=== PATIENT | male | born 1960 | race Caucasian/White ===

== ENCOUNTER 2016-09-15 18:34 | Inpatient (IN) | payer MEDICARE, MEDICAID ==
[~2016-09-15] VITALS: Ht 177.8 cm; Wt 113.4 kg
[2016-09-15] VITALS (7 sets, daily range): BP systolic 123–154; BP diastolic 60–95; PULSE 67–82; RESP 14–16; TEMP 97.4–98.2; O2SAT 97–99
[~2016-09-15 18:34] MED LIST: AMLO10 PO; ASPI-110 PO; CEFT2INJ2 IV; EPIN1INJ21 IV PUSH; EPIN1INJ21 SQ; HYDR-3535 PO; IBUP400T20 PO; LISI10TA3 PO; LORA-392 PO; NEUR400C PO; NOVOLOGSS SQ; SOLU250I IV PUSH; THIO100T2 PO; UNAS3INJ IV; ZOFR4TAB3 SL
[2016-09-15] MEDS ORDERED: GLIP5TAB8 PO (19:04)
[2016-09-15] MEDS ORDERED: DEXTROSE 50% IN WATER 50 ML SYRINGE ONE (19:25)
--- NOTE | 2016-09-15 19:28 | PD ---
HPI Chief Complaint: Diabetic Time Seen by Provider: 19:09 Travel History International Travel<30 days: No Contact w/Intl Traveler<30days: No Traveled to known affect area: No History of Present Illness HPI 56-year-old male complains of left-sided chest wall pain, bilateral knee pain, left forehead abrasion. Patient states that he has history of diabetes and blood sugar was low last night and this morning. Patient stated he fell this morning. Patient denied loss of consciousness. Patient complains headache. Patient complained of mild pain the left forehead area. Patient denies any visual change. Patient denies any neck pain. Patient states that he has aching pain on the left-sided chest. Patient denies any abdominal pain. Patient complains of burning pain prepatellar area of both knee. Patient denies any focal weakness or numbness of extremity. Patient states that he has poor appetite recently. Patient denies any nausea vomiting diarrhea. Patient is on glipizide. Patient on insulin sliding scale. PFSH Past Medical History Hx Anticoagulant Therapy: No Arthritis: No Asthma: No Autoimmune Disease: No Blood Disorders: No Anxiety: Yes Depression: Yes Heart Rhythm Problems: No Cancer: No Cardiovascular Problems: Yes High Cholesterol: No Chemotherapy: No Chest Pain: No Congestive Heart Failure: No COPD: No Cerebrovascular Accident: No Diabetes: Yes Patient Takes Glucophage: No Diminished Hearing: No Endocrine: No GERD: No Glaucoma: No Genitourinary: No Headaches: No Hepatitis: No Hiatal Hernia: No Hypertension: Yes Immune Disorder: No Kidney Stones: No Musculoskeletal: No Neurologic: No Psychiatric: Yes (schizoprenia controlled ) Reproductive: No Respiratory: No Migraines: No Myocardial Infarction: No Radiation Therapy: No Renal Failure: No Schizophrenia: Yes Seizures: No Sickle Cell Disease: No Sleep Apnea: No Thyroid Disease: No Ulcer: No Past Surgical History Abdominal Surgery: No AICD: No Appendectomy: No Arteriovenous Shunt: No Cardiac Surgery: No Cholecystectomy: No Ear Surgery: No Endocrine Surgery: No Eye Surgery: No Genitourinary Surgery: No Gynecologic Surgery: No Insulin Pump: No Joint Replacement: No Oral Surgery: No Pacemaker: No Thoracic Surgery: No Other Surgery: Yes (R FOOT ) Social History Alcohol Use: No (PT DENIES) Tobacco Use: No Substance Use: No Allergies-Medications (Allergen,Severity, Reaction): Coded Allergies: Haldol (Verified Allergy, Severe, BLINDNESS, 09/15/16) Vancomycin (Verified Allergy, Severe, 09/15/16) Levaquin (Verified Allergy, Intermediate, Cramping, 09/15/16) Prolixin (Verified Allergy, Unknown, "PARKINSONIAN SHACKS", 09/15/16) Reported Meds & Prescriptions Reported Meds & Active Scripts Active Novolog Inj (Insulin Aspart) 100 Unit/Ml Inj 1 Units SQ ACHS SLIDING SCALE 90 Days Lortab (Hydrocodone-Acetaminophen) 10-325 Mg Tab 1 Tab PO Q4H PRN Ativan (Lorazepam) 0.5 Mg Tab 0.5 Mg PO Q8H PRN Ceftriaxone Inj (Ceftriaxone Sodium/Dextrose) 2 Gm/50 Ml Bagp 2 Gm IV Q24H 42 Days Unasyn Inj (Ampicillin-Sulbactam Inj) 3 Gm Vial 3 Gm IV Q6H 42 Days Reported Lisinopril 10 Mg Tab 10 Mg PO DAILY Norvasc (Amlodipine Besylate) 10 Mg Tab 10 Mg PO DAILY Neurontin (Gabapentin) 400 Mg Cap 400 Mg PO TID Aspirin 81 (Aspirin) 81 Mg Tabdr 81 Mg PO DAILY Thioridazine (Thioridazine HCl) 100 Mg Tab 200 Mg PO DAILY Glipizide 5 Mg Tab 5 Mg PO BIDAC Take 30 minutes before a meal Review of Systems General / Constitutional: No: Fever Eyes: No: Visual changes HENT: No: Headaches Cardiovascular: No: Chest Pain or Discomfort Respiratory: No: Shortness of Breath Gastrointestinal: No: Abdominal Pain Genitourinary: No: Dysuria Musculoskeletal: No: Pain Skin: No Rash Neurologic: No: Weakness Psychiatric: No: Depression Endocrine: No: Polydipsia Hematologic/Lymphatic: No: Easy Bruising Physical Exam Narrative GENERAL: Well-nourished, well-developed patient. SKIN: Warm and dry. HEAD: Normocephalic. Patient has abrasion to left forehead. Mild soft tissue swelling noted. No active bleeding. EYES: No scleral icterus. No injection or drainage. Pupils 3 mm equal reactive. NECK: Supple, trachea midline. No JVD or lymphadenopathy. No tenderness on palpation of the neck. CARDIOVASCULAR: Regular rate and rhythm without murmurs, gallops, or rubs. RESPIRATORY: Breath sounds equal bilaterally. No accessory muscle use. GASTROINTESTINAL: Abdomen soft, non-tender, nondistended. MUSCULOSKELETAL: No cyanosis, or edema. Patient has mild tenderness on palpation left chest wall area mid axillary line. No crepitus no deformity noted. Patient has mild soft tissue swelling tenderness prepatellar area of bilateral knees. Knee joints stable. No effusion noted. BACK: Nontender without obvious deformity. No CVA tenderness. Neurologic exam: Patient is awake and alert oriented 3. No obvious focal neurological deficit. Data Data Last Documented VS Vital Signs Date Time Temp Pulse Resp B/P Pulse Ox O2 Delivery O2 Flow Rate FiO2 09/15/16 21:25 77 16 139/64 98 Room Air 09/15/16 18:37 98.2 Orders Complete Blood Count With Diff (09/15/16 19:17) Basic Metabolic Panel (Bmp) (09/15/16 19:17) Ct Brain W/O Iv Contrast(Rout) (09/15/16 19:17) Iv Access Insert/Monitor (09/15/16 19:17) Ecg Monitoring (09/15/16 19:17) Oximetry (09/15/16 19:17) Knee, Ltd (1 Or 2vws) (09/15/16 19:17) Knee, Ltd (1 Or 2vws) (09/15/16 19:17) Ribs, Uni (W/Exp Cxr-Min 3vw) (09/15/16 19:17) Dextrose 50% In Inderjit (Vial) Inj (D50w (Vi (09/15/16 19:30) Dextrose 50% In Inderjit (Syr) Inj (D50w (Syr (09/15/16 19:25) Dext 5%-Nacl 0.45% 1000 Ml Inj (D5w-1/2 (09/15/16 19:30) Type And Screen (09/15/16 20:04) Red Blood Cells (Rbc) (09/15/16 20:04) Blood Product Administration .UPON TRANSFUSION (09/15/16 20:04) Sodium Chlor 0.9% 250 Ml Inj (Ns 250 Ml (09/15/16 20:15) Sodium Chlorid 0.9% 500 Ml Inj (Ns 500 M (09/15/16 21:30) Dext 5%-Nacl 0.9% 1000 Ml Inj (D5w-Ns 10 (09/15/16 21:30) Labs Laboratory Tests Test 09/15/16 09/15/16 19:45 20:55 White Blood Count 12.6 TH/MM3 Red Blood Count 2.25 MIL/MM3 Hemoglobin 6.1 GM/DL Hematocrit 18.4 % Mean Corpuscular Volume 81.9 FL Mean Corpuscular Hemoglobin 27.2 PG Mean Corpuscular Hemoglobin 33.3 % Concent Red Cell Distribution Width 16.3 % Platelet Count 387 TH/MM3 Mean Platelet Volume 8.7 FL Neutrophils (%) (Auto) 73.4 % Lymphocytes (%) (Auto) 16.5 % Monocytes (%) (Auto) 8.3 % Eosinophils (%) (Auto) 1.4 % Basophils (%) (Auto) 0.4 % Neutrophils # (Auto) 9.3 TH/MM3 Lymphocytes # (Auto) 2.1 TH/MM3 Monocytes # (Auto) 1.1 TH/MM3 Eosinophils # (Auto) 0.2 TH/MM3 Basophils # (Auto) 0.0 TH/MM3 CBC Comment DIFF FINAL Differential Comment Sodium Level 119 MEQ/L Potassium Level 4.8 MEQ/L Chloride Level 86 MEQ/L Carbon Dioxide Level 23.9 MEQ/L Anion Gap 9 MEQ/L Blood Urea Nitrogen 13 MG/DL Creatinine 1.41 MG/DL Estimat Glomerular Filtration 52 ML/MIN Rate Random Glucose 139 MG/DL Calcium Level 7.9 MG/DL Blood Type O POSITIVE Antibody Screen NEGATIVE Crossmatch Leukocyte-Reduced Red Blood Cells Blood Bank Comment MDM Medical Decision Making Medical Screen Exam Complete: Yes Emergency Medical Condition: Yes Interpretation(s) Last Impressions Ribs X-Ray 09/15/161916 Signed Impressions: Service Date/Time: Thursday, September 15, 2016 20:04 - CONCLUSION: No perceptible rib fracture. No pneumothorax or other acute cardiopulmonary disease demonstrated. Sylvester Ordoñez MD Knee X-Ray 09/15/161916 Signed Impressions: Service Date/Time: Thursday, September 15, 2016 20:13 - CONCLUSION: No fracture or subluxation of the right knee. Sylvester Ordoñez MD Knee X-Ray 09/15/161916 Signed Impressions: Service Date/Time: Thursday, September 15, 2016 20:14 - CONCLUSION: Intact left knee. Moderate to severe osteoarthritis. Sylvester Ordoñez MD Head CT 09/15/161916 Signed Impressions: Service Date/Time: Thursday, September 15, 2016 20:42 - CONCLUSION: Left frontal scalp hematoma. No bleed or other acute intracranial abnormality. Sylvester Ordoñez MD 21:46 PM. CBC WBC 12.6. Hemoglobin 6.1 hematocrit 18.4. 73 neutrophil. Sodium 119. Chloride 86. Creatinine 1.41. Glucose 139. Calcium 7.9. Differential Diagnosis Differential diagnoses including head injury, chest injury, extremity injury, hypoglycemia, electrolyte imbalance, dehydration. Narrative Course 56-year-old male with hypoglycemia, forehead injury, left chest with injury, bilateral knee injury. Status post fall this morning. History diabetes. Accu- Chek blood sugar 46 now. D50 1 amp IV given. D5 1/2 normal saline solution 100 cc an hour. Normal saline solution 500 cc IV bolus. IV changed to D5 normal saline solution 1 25 cc an hour. Type and cross 2 units of blood and transfusion Collin Rod MD Sep 15, 2016 19:28
[2016-09-15] MEDS ORDERED: DEXTROSE 50% IN WATER 50 ML VIAL(D50) IV PUSH ONE (19:30)
[2016-09-15] MEDS ORDERED: DEXT 5%-NACL 0.45% 1000 ML INJ 1,000 ML IV SCH (19:30)
[2016-09-15 19:54] LABS: AUTOMATED NEUTROPHIL # 9.3 TH/MM3 (1.8-7.7); BASOPHIL % 0.4 % (0.0-2.0); EOSINOPHIL # 0.2 TH/MM3 (0-0.4); EOSINOPHIL % 1.4 % (0.0-4.0); LYMPH % 16.5 % (9.0-44.0); LYMPHOCYTE # 2.1 TH/MM3 (1.0-4.8); MEAN CELL VOLUME 81.9 FL (80.0-100.0); MEAN CORPUSCULAR HEMOGLOBIN 27.2 PG (27.0-34.0); MEAN CORPUSCULAR HGB CONC 33.3 % (32.0-36.0); MONO % 8.3 % (0.0-8.0); NEUT % 73.4 % (16.0-70.0); PLATELET COUNT 387 TH/MM3 (150-450); RED BLOOD COUNT 2.25 MIL/MM3 (4.50-5.90); RED CELL DISTRIBUTION WIDTH 16.3 % (11.6-17.2); WHITE BLOOD COUNT 12.6 TH/MM3 (4.0-11.0)
[2016-09-15 20:02] LABS: HEMO FLAGS DIFF FINAL
[2016-09-15 20:03] LABS: HEMATOCRIT 18.4 % (39.0-51.0)
[2016-09-15] MEDS ORDERED: SODIUM CHLOR 0.9% 250 ML INJ 250 ML IV ONE (20:15)
[2016-09-15 20:32] LABS: BICARBONATE 23.9 MEQ/L (21.0-32.0); POTASSIUM 4.8 MEQ/L (3.5-5.1)
--- NOTE | 2016-09-15 21:04 | RADRPT ---
EXAM DATE/TIME: 09/15/2016 20:42 [facility] COMPARISON: No previous studies available for comparison. INDICATIONS : Trauma; fell and hit forehead. RADIATION DOSE: 50.67 CTDIvol (mGy) MEDICAL HISTORY : Cardiovascular disease. Hypertension. Diabetes mellitus type 2. SURGICAL HISTORY : None. ENCOUNTER: Initial ACUITY: 1 day PAIN SCALE: 3/10 LOCATION: frontal TECHNIQUE: Multiple contiguous axial images were obtained of the head. Using automated exposure control and adj ustment of the mA and/or kV according to patient size, radiation dose was kept as low as reasonably a chievable to obtain optimal diagnostic quality images. FINDINGS: CEREBRUM: The ventricles are normal for age. No evidence of midline shift, mass lesion, hemorrhage or acute in farction. No extra-axial fluid collections are seen. POSTERIOR FOSSA: The cerebellum and brainstem are intact. The 4th ventricle is midline. The cerebellopontine angle i s unremarkable. EXTRACRANIAL: Left frontal scalp hematoma seen. No perceptible fracture. SKULL: The calvaria is intact. No evidence of skull fracture. CONCLUSION: Left frontal scalp hematoma. No bleed or other acute intracranial abnormality. Sylvester Ordoñez MD on September 15, 2016 at 21:01 Board Certified Radiologist. This report was verified electronically.
--- NOTE | 2016-09-15 21:25 | RADRPT ---
EXAM DATE/TIME: 09/15/2016 20:04 [facility] COMPARISON: No previous studies available for comparison. INDICATIONS : Low back pain, bilateral knee pain, and rib pain status post fall. MEDICAL HISTORY : Diabetes mellitus type II. Schizophrenia. SURGICAL HISTORY : None. ENCOUNTER: Initial ACUITY: 1 day PAIN SCORE: 10/10 LOCATION: Left ribs. FINDINGS: Multiple views of the left ribs were performed. There is no evidence of displaced fracture. No dest ructive lesions or areas of periosteal thickening are seen. Expiratory view of the chest is negative for pneumothorax. The mediastinal structures are midline. CONCLUSION: No perceptible rib fracture. No pneumothorax or other acute cardiopulmonary disease demonstrated. Sylvester Ordoñez MD on September 15, 2016 at 21:23 Board Certified Radiologist. This report was verified electronically.
--- NOTE | 2016-09-15 21:26 | RADRPT ---
EXAM DATE/TIME: 09/15/2016 20:13 [facility] COMPARISON: No previous studies available for comparison. INDICATIONS : Low back pain, bilateral knee pain, and rib pain status post fall. MEDICAL HISTORY : Diabetes mellitus type II. Schizophrenia. SURGICAL HISTORY : None. ENCOUNTER: Initial ACUITY: 1 day PAIN SCORE: 10/10 LOCATION: Right knee. FINDINGS: Two view examination of the right knee demonstrates no evidence of fracture or dislocation. Bony min eralization is normal. The suprapatellar soft tissues have a normal configuration. CONCLUSION: No fracture or subluxation of the right knee. Sylvester Ordoñez MD on September 15, 2016 at 21:24 Board Certified Radiologist. This report was verified electronically.
--- NOTE | 2016-09-15 21:27 | RADRPT ---
EXAM DATE/TIME: 09/15/2016 20:14 [facility] COMPARISON: No previous studies available for comparison. INDICATIONS : Low back, bilateral knee, and left rib pain status post fall. MEDICAL HISTORY : Diabetes mellitus type II. Schizophrenia. SURGICAL HISTORY : None. ENCOUNTER: Initial ACUITY: 1 day PAIN SCORE: 10/10 LOCATION: Left knee. FINDINGS: There is moderate to severe 3 compartment osteoarthritis. No fracture or subluxation demonstrated. No significant joint effusion seen. CONCLUSION: Intact left knee. Moderate to severe osteoarthritis. Sylvester Ordoñez MD on September 15, 2016 at 21:25 Board Certified Radiologist. This report was verified electronically.
[2016-09-15] MEDS ORDERED: DEXT 5%-NACL 0.9% 1000 ML INJ 1,000 ML IV SCH ×2 (21:30→22:45)
[2016-09-15] MEDS ORDERED: SODIUM CHLORID 0.9% 500 ML INJ 500 ML IV ONE (21:30)
[2016-09-15] MEDS ORDERED: SODIUM CHLORIDE 0.9% FLUSH 5 ML FLUSH IVF PRN (22:15)
[2016-09-15] MEDS ORDERED: ACETAMINOPHEN 325 MG TAB PO PRN ×2 (22:15→22:45)
[2016-09-15] MEDS ORDERED: ONDANSETRON HCL 4 MG/2 ML VIAL IV PRN (22:15)
[2016-09-15] MEDS ORDERED: BISACODYL 10 MG SUPP PR PRN (22:45)
[2016-09-15] MEDS ORDERED: LORazepam 0.5 MG TAB PO PRN (22:45)
[2016-09-15] MEDS ORDERED: ONDANSETRON HCL 4 MG/2 ML VIAL IVP PRN (22:45)
[2016-09-15] MEDS ORDERED: GLUCAGON 1 MG/ML VIAL OTHER PRN (22:45)
[2016-09-15] MEDS ORDERED: ZOLPIDEM TARTRATE 5 MG TAB PO PRN (22:45)
[2016-09-15] MEDS ORDERED: LORazepam 2 MG/ML VIAL IV PUSH PRN (22:45)
[2016-09-15] MEDS ORDERED: NALOXONE HCL 0.4 MG/ML AMP IV PRN (22:45)
[2016-09-15] MEDS ORDERED: ENALAPRILAT 2.5 MG/2 ML VIAL IV PUSH PRN (22:45)
[2016-09-15] MEDS: cefTRIAXone INJ 2,000 MG in SODIUM CHLORIDE 0.9% INJ 100 ML IV SCH (22:56)
[2016-09-15] MEDS: MORPHINE SULFATE 8 MG/ML INJ IV PUSH PRN (22:57)
[2016-09-15] MEDS: PANTOPRAZOLE SODIUM 40 MG VIAL IV PUSH SCH (23:17)
[2016-09-15] MEDS: AMPICILLIN-SULBACTAM INJ 3 GM in SODIUM CHLORIDE 0.9% INJ 100 ML IV SCH (23:17)
[2016-09-15] MEDS: ACETAMINOPHEN/HYDROcodone 325 MG/5 MG TAB PO PRN (23:18)
[2016-09-16] VITALS (11 sets, daily range): BP systolic 124–163; BP diastolic 60–77; PULSE 67–85; RESP 16–20; TEMP 97.5–98.6; O2SAT 95–99
[2016-09-16] MEDS: DEXTROSE 50% IN WATER 50 ML VIAL(D50) IV PUSH PRN ×2 (05:00→05:30)
[2016-09-16] MEDS: AMPICILLIN-SULBACTAM INJ 3 GM in SODIUM CHLORIDE 0.9% INJ 100 ML IV SCH ×4 (05:25→23:39)
[2016-09-16] MEDS: INSULIN ASPART SUPPLEMENTAL SCALE SQ SCH ×4 (05:38→21:00)
[2016-09-16] MEDS: ACETAMINOPHEN/HYDROcodone 325 MG/5 MG TAB PO PRN ×4 (06:00→21:24)
[2016-09-16 07:08] LABS: BICARBONATE 20.7 MEQ/L (21.0-32.0); POTASSIUM 4.3 MEQ/L (3.5-5.1)
[2016-09-16 07:16] LABS: AUTOMATED NEUTROPHIL # 6.1 TH/MM3 (1.8-7.7); BASOPHIL # 0.1 TH/MM3 (0-0.2); BASOPHIL % 0.6 % (0.0-2.0); EOSINOPHIL # 0.3 TH/MM3 (0-0.4); EOSINOPHIL % 3.3 % (0.0-4.0); HEMATOCRIT 26.4 % (39.0-51.0); HEMO FLAGS DIFF FINAL; LYMPH % 15.2 % (9.0-44.0); LYMPHOCYTE # 1.3 TH/MM3 (1.0-4.8); MEAN CELL VOLUME 81.7 FL (80.0-100.0); MEAN CORPUSCULAR HEMOGLOBIN 28.2 PG (27.0-34.0); MEAN CORPUSCULAR HGB CONC 34.5 % (32.0-36.0); MONO % 9.7 % (0.0-8.0); NEUT % 71.2 % (16.0-70.0); PLATELET COUNT 342 TH/MM3 (150-450); RED BLOOD COUNT 3.23 MIL/MM3 (4.50-5.90); RED CELL DISTRIBUTION WIDTH 15.9 % (11.6-17.2); WHITE BLOOD COUNT 8.6 TH/MM3 (4.0-11.0)
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
[2016-09-16] MEDS: THIORIDAZINE HCL 100 MG PO SCH (08:04)
[2016-09-16] MEDS: GABAPENTIN 400 MG CAP PO SCH ×3 (08:04→17:46)
[2016-09-16] MEDS: LISINOPRIL 10 MG TAB PO SCH (08:04)
[2016-09-16] MEDS: PANTOPRAZOLE SODIUM 40 MG VIAL IV PUSH SCH ×2 (08:05→21:23)
[2016-09-16] MEDS: SODIUM CHLORIDE 0.9% FLUSH 5 ML FLUSH FLUSH SCH ×2 (08:09→21:23)
[2016-09-16] MEDS ORDERED: SODIUM CHLORIDE 0.9% FLUSH 5 ML FLUSH IVF SCH (09:00)
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
[2016-09-16] MEDS: MORPHINE SULFATE 8 MG/ML INJ IV PUSH PRN ×4 (10:28→23:39)
[2016-09-16] MEDS ORDERED: BISACODYL EC 5 MG TABEC PO ONE (20:00)
[2016-09-17] VITALS (9 sets, daily range): BP systolic 90–165; BP diastolic 51–78; PULSE 71–81; RESP 18–21; TEMP 97.4–98.2; O2SAT 96–99
[2016-09-17] MEDS: cefTRIAXone INJ 2,000 MG in SODIUM CHLORIDE 0.9% INJ 100 ML IV SCH ×2
[2016-09-17] MEDS: MORPHINE SULFATE 8 MG/ML INJ IV PUSH PRN ×4 (03:39→20:28)
[2016-09-17] MEDS: AMPICILLIN-SULBACTAM INJ 3 GM in SODIUM CHLORIDE 0.9% INJ 100 ML IV SCH ×4 (04:50→23:16)
[2016-09-17] MEDS: ACETAMINOPHEN/HYDROcodone 325 MG/5 MG TAB PO PRN ×4 (04:53→23:15)
[2016-09-17 05:25] LABS: AMPHETAMINE, URINE NEG (NEG); BARBITURATES, URINE NEG (NEG); COCAINE, URINE NEG (NEG)
[2016-09-17] MEDS: INSULIN ASPART SUPPLEMENTAL SCALE SQ SCH ×4 (06:29→20:29)
[2016-09-17] MEDS: LISINOPRIL 10 MG TAB PO SCH (08:22)
[2016-09-17] MEDS: SODIUM CHLORIDE 0.9% FLUSH 5 ML FLUSH FLUSH SCH ×2 (08:22→20:29)
[2016-09-17] MEDS: GABAPENTIN 400 MG CAP PO SCH ×3 (08:22→17:04)
[2016-09-17] MEDS: THIORIDAZINE HCL 100 MG PO SCH (08:22)
[2016-09-17] MEDS: DEXT 5%-NACL 0.45% 1000 ML INJ 1,000 ML IV SCH ×2 (08:23→08:27)
[2016-09-17] MEDS: PANTOPRAZOLE SODIUM 40 MG VIAL IV PUSH SCH ×2 (08:23→20:28)
--- NOTE | 2016-09-17 08:43 | HHI.FPPN ---
Subjective Remarks CALLED W LABS PT C/O EDEMA C/O FEET PAIN D/W RN Objective Vitals Vital Signs Date Time Temp Pulse Resp B/P Pulse Ox O2 Delivery O2 Flow Rate FiO2 09/17/16 08:22 97.7 71 21 134/62 98 09/17/16 04:00 98.1 80 18 140/63 96 09/17/16 00:00 97.7 81 18 165/68 98 09/16/16 20:04 70 09/16/16 20:00 97.5 75 17 130/60 97 09/16/16 20:00 Room Air 09/16/16 16:05 97.5 80 20 141/64 97 09/16/16 12:01 97.9 78 19 145/69 96 I/O 09/16/16 09/16/16 09/16/16 09/17/16 09/17/16 09/17/16 06:59 14:59 22:59 06:59 14:59 22:59 Intake Total 1345 ml 480 ml 480 ml Output Total 1875 ml 725 ml Balance 1345 ml -1395 ml -245 ml Intake Oral 480 ml 480 ml IV Total 645 ml Packed Cells 700 ml Output Urine Total 1875 ml 725 ml # Bowel Movements 0 0 Result Diagram: 09/16/1648 09/16/16 0548 Objective Remarks GENERAL: SKIN: Warm and dry. HEAD: Atraumatic. Normocephalic. EYES: Pupils equal and round. No scleral icterus. No injection or drainage. ENT: No nasal bleeding or discharge. Mucous membranes pink and moist. NECK: Trachea midline. No JVD. CARDIOVASCULAR: Regular rate and rhythm. RESPIRATORY: No accessory muscle use. Clear to auscultation. Breath sounds equal bilaterally. GASTROINTESTINAL: Abdomen soft, non-tender, nondistended. Hepatic and splenic margins not palpable. MUSCULOSKELETAL: Extremities without clubbing, cyanosis; B CHARCOT FEET, L > R VENTRAL FEET ULCERS NEUROLOGICAL: Awake and alert. No obvious cranial nerve deficits. Motor grossly within normal limits. 2 out of 5 muscle strength in the arms and legs. Normal speech. PSYCHIATRIC: Appropriate mood and affect; insight and judgment normal. Medications and IVs Current Medications Medications (Trade) Dose Ordered Sig/Portia Route Start Time Stop Time Status Last Admin (Norvasc) 10 mg DAILY PO 09/16/16 09:00 09/17/16 08:22 (Neurontin) 400 mg TID PO 09/16/16 09:00 09/17/16 08:22 (Prinivil) 10 mg DAILY PO 09/16/16 09:00 09/17/16 08:22 (Mellaril) 200 mg DAILY PO 09/16/16 09:00 09/17/16 08:22 (NS Flush) 2 ml UNSCH PRN FLUSH 09/15/16 22:45 (NS Flush) 2 ml BID FLUSH 09/16/16 09:00 09/17/16 08:22 (Tylenol) 650 mg Q4H PRN PO 09/15/16 22:45 (Zofran Inj) 4 mg Q6H PRN IVP 09/15/16 22:45 (Dulcolax Supp) [address] 09/15/16 22:45 (Ambien) 5 mg HS PRN PO 09/15/16 22:45 Naloxone HCl 0.4 mg 0.4 mg UNSCH PRN IV 09/15/16 22:45 Ceftriaxone Sodium 2000 mg/ Sodium Chloride 100 ml @ 200 mls/hr Q24H IV 09/16/16 00:00 09/17/16 00:00 (Unasyn Inj/NS Inj) 100 ml @ 200 mls/hr Q6H IV 09/15/16 23:00 09/17/16 04:50 (Ativan) 0.5 mg Q8H PRN PO 09/15/16 22:45 (Ativan Inj) 0.5 mg Q6H PRN IV PUSH 09/15/16 22:45 (Catapres) 0.1 mg Q6H PRN PO 09/15/16 22:45 (Vasotec Inj) 2.5 mg Q6H PRN IV PUSH 09/15/16 22:45 (Pomona 5-325 Mg) 1 tab Q4H PRN PO 09/15/16 22:45 09/17/16 04:53 (Morphine Inj) 5 mg Q4H PRN IV PUSH 09/15/16 22:45 09/17/16 03:39 (Protonix Inj) 40 mg BID IV PUSH 09/15/16 22:45 09/17/16 08:23 (D50w (Vial) Inj) 25 ml UNSCH PRN IV PUSH 09/15/16 22:45 09/16/16 05:30 Glucagon 1 mg 1 mg UNSCH PRN OTHER 09/15/16 22:45 (D5W-09/17 NS 1000 ml Inj) 1,000 ml @ 30 mls/hr Q24H IV 09/16/16 07:30 09/17/16 08:27 (Colyte Liq) 4,000 ml ONCE ONCE PO 09/17/16 17:00 09/17/16 17:01 (Morphine Inj) 5 mg Q4H PRN IV PUSH 09/17/16 07:45 09/17/16 08:21 A/P Assessment and Plan SEVERE SEPSIS FALL HEAD INJURY AND KNEE ABRASIONS ANEMIA, ACUTE BLOOD LOSS AND HX ACD. TRANSFUSED. L>R Diabetic foot abscess Charcot's, bilateral. Diabetes uncontrolled. Acute renal failure, d/t sepsis CKD 2 Hyponatremia d/t polydypsia, thorazine, hyperglycemia. Schizoprenia Alcoholism HTN DM Peripheral neuropathy Noncompliance PLAN: CERETEC SCAN PANSCOPE TOMORROW IV ABX NPO P MN IVF IV LASIX INSULIN MONITOR NA DPM CONSULT WOUND CONSULT GI CONSULT BLOOD CULTURES WOUND CULTURES AM LABS. Jack Rod MD Sep 17, 2016 08:43
[2016-09-17 09:08] LABS: AUTOMATED NEUTROPHIL # 6.5 TH/MM3 (1.8-7.7); BASOPHIL # 0.1 TH/MM3 (0-0.2); BASOPHIL % 0.7 % (0.0-2.0); EOSINOPHIL # 0.5 TH/MM3 (0-0.4); EOSINOPHIL % 5.1 % (0.0-4.0); HEMATOCRIT 29.1 % (39.0-51.0); HEMO FLAGS DIFF FINAL; LYMPH % 13.7 % (9.0-44.0); LYMPHOCYTE # 1.3 TH/MM3 (1.0-4.8); MEAN CELL VOLUME 82.8 FL (80.0-100.0); MEAN CORPUSCULAR HEMOGLOBIN 27.6 PG (27.0-34.0); MEAN CORPUSCULAR HGB CONC 33.4 % (32.0-36.0); MONO % 12.1 % (0.0-8.0); NEUT % 68.4 % (16.0-70.0); PLATELET COUNT 382 TH/MM3 (150-450); RED BLOOD COUNT 3.51 MIL/MM3 (4.50-5.90); RED CELL DISTRIBUTION WIDTH 16.6 % (11.6-17.2); WHITE BLOOD COUNT 9.5 TH/MM3 (4.0-11.0)
[2016-09-17 09:33] LABS: BICARBONATE 21.5 MEQ/L (21.0-32.0); POTASSIUM 4.6 MEQ/L (3.5-5.1)
[2016-09-17] MEDS: FUROSEMIDE 40 MG/4 ML VIAL IV PUSH SCH (10:56)
--- NOTE | 2016-09-17 11:13 | RADRPT ---
EXAM DATE/TIME: 09/16/2016 00:00 [facility] COMPARISON: FOOT LEFT COMPLETE ([id number]), August 21, 2016, 20:26. FOOT RIGHT COMPLETE ([id number]), August 21, 2016, 20:22. MRI FOOT RIGHT W & W/O CONTRAST, August 21, 2016, 18:49. MRI FOOT LEFT W & W/O CONTR AST, August 21, 2016, 18:49. INDICATIONS : Charcot foot. Bilateral foot abcesses. Osteomyelitis. DOSE: 20.2 mCi Tc99m Ceretec labeled white blood cells IV SPECT IMAGIN hrs, 20 hrs IMAGNG: SPECT/CT imaging with fusion was performed. RADIATION DOSE: 4.47 CTDIvol (mGy) ; Multiple Day Study MEDICAL HISTORY : Diabetes mellitus type 2. Hypertension. Schizophrenia. SURGICAL HISTORY : Bilateral feet surgeries. ENCOUNTER: Initial ACUITY: 1 day PAIN SCALE: 0/10 LOCATION: Bilateral Feet. TECHNIQUE: Following the in vitro labeling of autologous white cells and reinjection, whole body scan was perfor med at the specified times. SPECT imaging was performed at the specified time in sagittal, axial and coronal planes. Attenuation correction was performed with the computed tomography and both the atten uation correction and non-attenuation corrected data sets were reviewed. FINDINGS: The patient has a history of bilateral plantar foot abscess ease. In addition bilateral Charcot arthr opathy changes of the mid and hindfoot are seen with fragmentation, sclerosis and deformity of the ta rsal bones. The CT images demonstrate extensive subcutaneous stranding and a gas and fluid collection along the plantar aspect of the right foot with overlying ulceration. This area extends approximatel y 6.9 cm in AP dimension and 2.8 cm in cephalocaudal dimension. This abuts the deformed cuboid bone w hich is sclerotic. A similar finding is seen on the left with edema, and a ill-defined gas and fluid/ phlegmonous change at the plantar aspect of the foot measuring at least 7.2 x 5.2 cm in transverse an d AP dimensions on axial image 201. The SPECT perfusion images demonstrate abnormal radiotracer accum ulation within the plantar subcutaneous collections bilaterally consistent with the patient's known a bscess ease. There is no significant osseous accumulation of radiolabeled white blood cells to sugges t osteomyelitis. CONCLUSION: Cellulitis and abscesses demonstrate radiotracer accumulation characteristic of infec tion however there is no definite osseous accumulation to suggest osteomyelitis at this time. Signifi cant osseous deformity characteristically Charcot arthropathy. Tony Moreno MD on September 17, 2016 at 11:06 Board Certified Radiologist. This report was verified electronically.
--- NOTE | 2016-09-17 12:13 | HHI.GIFU ---
Subjective Remarks Feeling better overall, no evidence of active bleeding at the current time. Objective Vitals I&O Vital Signs Date Time Temp Pulse Resp B/P Pulse Ox O2 Delivery O2 Flow Rate FiO2 09/17/16 11:59 97.5 74 19 140/71 98 09/17/16 08:35 72 09/17/16 08:22 97.7 71 21 134/62 98 09/17/16 08:00 Room Air 09/17/16 04:00 98.1 80 18 140/63 96 09/17/16 00:00 97.7 81 18 165/68 98 09/16/16 20:04 70 09/16/16 20:00 97.5 75 17 130/60 97 09/16/16 20:00 Room Air 09/16/16 16:05 97.5 80 20 141/64 97 I/O 09/16/16 09/16/16 09/16/16 09/17/16 09/17/16 09/17/16 07:00 15:00 23:00 07:00 15:00 23:00 Intake Total 1345 ml 480 ml 480 ml Output Total 1875 ml 725 ml Balance 1345 ml -1395 ml -245 ml Intake Oral 480 ml 480 ml IV Total 645 ml Packed Cells 700 ml Output Urine Total 1875 ml 725 ml # Bowel Movements 0 0 Laboratory Laboratory Tests Test 09/17/16 09/17/16 05:00 08:10 Urine Opiates Screen POS Urine Barbiturates Screen NEG Urine Amphetamines Screen NEG Urine Benzodiazepines Screen NEG Urine Cocaine Screen NEG Urine Cannabinoids Screen NEG White Blood Count 9.5 Red Blood Count 3.51 Hemoglobin 9.7 Hematocrit 29.1 Mean Corpuscular Volume 82.8 Mean Corpuscular Hemoglobin 27.6 Mean Corpuscular Hemoglobin 33.4 Concent Red Cell Distribution Width 16.6 Platelet Count 382 Mean Platelet Volume 9.0 Neutrophils (%) (Auto) 68.4 Lymphocytes (%) (Auto) 13.7 Monocytes (%) (Auto) 12.1 Eosinophils (%) (Auto) 5.1 Basophils (%) (Auto) 0.7 Neutrophils # (Auto) 6.5 Lymphocytes # (Auto) 1.3 Monocytes # (Auto) 1.1 Eosinophils # (Auto) 0.5 Basophils # (Auto) 0.1 CBC Comment DIFF FINAL Differential Comment Sodium Level 126 Potassium Level 4.6 Chloride Level 94 Carbon Dioxide Level 21.5 Anion Gap 11 Blood Urea Nitrogen 15 Creatinine 1.63 Estimat Glomerular Filtration 44 Rate Random Glucose 139 Calcium Level 8.6 Date/Time Procedure Status Source Growth 09/16/16 08:25 Gram Stain - Final Resulted Wound Foot 09/16/16 08:25 Wound Culture Resulted Wound Foot Pending Physical Exam HEENT: Pupils round and reactive to light; normocephalic; atraumatic; no jaundice. Throat is clear. NECK: Neck is supple, no JVD, no lymphadenopathy. CHEST: Chest is clear to auscultation and percussion. CARDIAC: Regular rate and rhythm with no murmur gallop or rubs. ABDOMEN: Soft, nondistended, nontender; no hepatosplenomegaly; bowel sounds are present in all four quadrants. EXTREMITIES: No clubbing, cyanosis, or edema. SKIN: Normal; no rash; no jaundice. Assessment and Plan Assessment: (1) Acute blood loss anemia (2) Chronic disease anemia (3) Type 2 diabetes mellitus with foot ulcer (4) Noncompliance (5) CKD (chronic kidney disease) stage 3, GFR 30-59 ml/min (6) Sepsis (7) ETOH abuse Plan 56 year old male with known history of multiple health issues including diabetes , CKD stage 3, chronic foot wounds, noncompliance with medical regime, chronic anemia, ETOH, Schizophrenia. Admitted following a fall at home resulting in head injury and knee injury. CT head was negative. He is also septic on antibiotics. He was found to be severely anemic secondary to acute blood loss but does have a hx of anemia of chronic disease. He was transfused with 2 units of PRBC's and H7H has improved to 9.1/26.4. Plan - Continue PPI - Follow H&H , transfuse PRBC's PRN to keep H&H > 7.0 - Call GI for any Bleeding - EGD/Colonoscopy in AM - Clears today and NPO after MN - Golyely and Dulcolax for bowel prep. 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
[2016-09-17] MEDS ORDERED: BISACODYL EC 5 MG TABEC PO ONE (12:30)
[2016-09-17] MEDS: COLLAGENASE OINT 30 GM TUBE TOP SCH (13:00)
[2016-09-17] MEDS ORDERED: PEG (High)/E-LYTE SOLN 4000 ML BTL PO ONE ×2 (16:00→17:00)
[2016-09-18] MEDS: MORPHINE SULFATE 8 MG/ML INJ IV PUSH PRN ×4 (00:20→18:01)
[2016-09-18] MEDS: cefTRIAXone INJ 2,000 MG in SODIUM CHLORIDE 0.9% INJ 100 ML IV SCH (00:21)
[2016-09-18] MEDS: ACETAMINOPHEN/HYDROcodone 325 MG/5 MG TAB PO PRN ×4 (04:04→22:45)
[2016-09-18] MEDS: AMPICILLIN-SULBACTAM INJ 3 GM in SODIUM CHLORIDE 0.9% INJ 100 ML IV SCH ×4 (04:04→22:40)
[2016-09-18] MEDS: INSULIN ASPART SUPPLEMENTAL SCALE SQ SCH ×4 (05:34→21:00)
[2016-09-18] MEDS ORDERED: [UNRECOGNIZED DRUG - SUPPLY] IVF (06:45)
[2016-09-18 07:40] LABS: AUTOMATED NEUTROPHIL # 7.8 TH/MM3 (1.8-7.7); BASOPHIL # 0.1 TH/MM3 (0-0.2); BASOPHIL % 0.5 % (0.0-2.0); EOSINOPHIL # 0.6 TH/MM3 (0-0.4); EOSINOPHIL % 5.9 % (0.0-4.0); HEMATOCRIT 26.2 % (39.0-51.0); HEMO FLAGS DIFF FINAL; LYMPH % 10.5 % (9.0-44.0); LYMPHOCYTE # 1.1 TH/MM3 (1.0-4.8); MEAN CELL VOLUME 82.5 FL (80.0-100.0); MEAN CORPUSCULAR HEMOGLOBIN 27.9 PG (27.0-34.0); MEAN CORPUSCULAR HGB CONC 33.8 % (32.0-36.0); MONO % 8.8 % (0.0-8.0); NEUT % 74.3 % (16.0-70.0); PLATELET COUNT 365 TH/MM3 (150-450); RED BLOOD COUNT 3.18 MIL/MM3 (4.50-5.90); RED CELL DISTRIBUTION WIDTH 16.3 % (11.6-17.2); WHITE BLOOD COUNT 10.5 TH/MM3 (4.0-11.0)
[2016-09-18 08:00] VITALS: BP 122/64; PULSE 64; RESP 18; TEMP 96.7; O2SAT 98
[2016-09-18 08:00] LABS: BICARBONATE 24.6 MEQ/L (21.0-32.0); POTASSIUM 4.5 MEQ/L (3.5-5.1)
[2016-09-18] MEDS: SODIUM CHLORIDE 0.9% FLUSH 5 ML FLUSH FLUSH SCH ×2 (08:44→21:00)
[2016-09-18] MEDS: DEXT 5%-NACL 0.45% 1000 ML INJ 1,000 ML IV SCH (08:44)
[2016-09-18] MEDS: COLLAGENASE OINT 30 GM TUBE TOP SCH (08:46)
[2016-09-18] MEDS: Hickman Catheter Daily NS Lock Flush IVF SCH (08:47)
[2016-09-18] MEDS: FUROSEMIDE 40 MG/4 ML VIAL IV PUSH SCH ×2 (08:47→21:43)
[2016-09-18] MEDS: THIORIDAZINE HCL 100 MG PO SCH (08:48)
[2016-09-18] MEDS: PANTOPRAZOLE SODIUM 40 MG VIAL IV PUSH SCH ×2 (08:48→21:43)
[2016-09-18] MEDS: LISINOPRIL 10 MG TAB PO SCH (08:48)
[2016-09-18] MEDS: GABAPENTIN 400 MG CAP PO SCH ×3 (08:48→18:00)
[2016-09-18] MEDS ORDERED: PROPOFOL 200 MG/20 ML AMP IV ONE (09:31)
[2016-09-18 10:14] VITALS: PULSE 66
--- NOTE | 2016-09-18 10:51 | HHI.FPPN ---
Subjective Remarks SEEN IN PACU LETHARGIC AROUSES TO VOICE D/W RN D/W GI MD Objective Vitals Vital Signs Date Time Temp Pulse Resp B/P Pulse Ox O2 Delivery O2 Flow Rate FiO2 09/18/16 10:14 66 09/18/16 10:03 62 16 120/67 99 09/18/16 09:58 62 16 127/66 98 09/18/16 09:53 96.2 59 16 110/61 99 09/18/16 08:00 96.7 64 18 122/64 98 09/17/16 23:34 97.4 76 20 140/78 99 09/17/16 20:30 Room Air 09/17/16 20:01 73 09/17/16 20:00 97.5 74 20 90/51 96 09/17/16 16:03 98.2 74 19 124/57 97 09/17/16 11:59 97.5 74 19 140/71 98 I/O 09/17/16 09/17/16 09/17/16 09/18/16 09/18/16 09/18/16 07:00 15:00 23:00 07:00 15:00 23:00 Intake Total 1153 ml 500 ml Output Total 1800 ml Balance -647 ml 500 ml Intake Oral 960 ml IV Total 193 ml 500 ml Output Urine Total 1800 ml # Voids 5 # Bowel Movements 0 5 Result Diagram: 09/18/16 0701 09/18/16 0701 Objective Remarks GENERAL: SKIN: Warm and dry. HEAD: Atraumatic. Normocephalic. EYES: Pupils equal and round. No scleral icterus. No injection or drainage. ENT: No nasal bleeding or discharge. Mucous membranes pink and moist. NECK: Trachea midline. No JVD. CARDIOVASCULAR: Regular rate and rhythm. RESPIRATORY: No accessory muscle use. Clear to auscultation. Breath sounds equal bilaterally. GASTROINTESTINAL: Abdomen soft, non-tender, nondistended. Hepatic and splenic margins not palpable. MUSCULOSKELETAL: Extremities without clubbing, cyanosis; B CHARCOT FEET, L > R VENTRAL FEET ULCERS NEUROLOGICAL: Awake and alert. No obvious cranial nerve deficits. Motor grossly within normal limits. 2 out of 5 muscle strength in the arms and legs. Normal speech. PSYCHIATRIC: Appropriate mood and affect; insight and judgment normal. Medications and IVs Current Medications Medications (Trade) Dose Ordered Sig/Portia Route Start Time Stop Time Status Last Admin (Norvasc) 10 mg DAILY PO 09/16/16 09:00 09/18/16 08:48 (Neurontin) 400 mg TID PO 09/16/16 09:00 09/18/16 08:48 (Prinivil) 10 mg DAILY PO 09/16/16 09:00 09/18/16 08:48 (Mellaril) 200 mg DAILY PO 09/16/16 09:00 09/18/16 08:48 (NS Flush) 2 ml UNSCH PRN FLUSH 09/15/16 22:45 (NS Flush) 2 ml BID FLUSH 09/16/16 09:00 09/17/16 20:29 (Tylenol) 650 mg Q4H PRN PO 09/15/16 22:45 (Zofran Inj) 4 mg Q6H PRN IVP 09/15/16 22:45 (Dulcolax Supp) 10 mg DAILY PRN [place] 09/15/16 22:45 (Ambien) 5 mg HS PRN PO 09/15/16 22:45 Naloxone HCl 0.4 mg 0.4 mg UNSCH PRN IV 09/15/16 22:45 Ceftriaxone Sodium 2000 mg/ Sodium Chloride 100 ml @ 200 mls/hr Q24H IV 09/16/16 00:00 09/18/16 00:21 (Unasyn Inj/NS Inj) 100 ml @ 200 mls/hr Q6H IV 09/15/16 23:00 09/18/16 04:04 (Ativan) 0.5 mg Q8H PRN PO 09/15/16 22:45 (Ativan Inj) 0.5 mg Q6H PRN IV PUSH 09/15/16 22:45 09/17/16 18:14 (Catapres) 0.1 mg Q6H PRN PO 09/15/16 22:45 (Vasotec Inj) 2.5 mg Q6H PRN IV PUSH 09/15/16 22:45 ([place] 5-325 Mg) 1 tab Q4H PRN PO 09/15/16 22:45 09/18/16 04:04 (Morphine Inj) 5 mg Q4H PRN IV PUSH 09/15/16 22:45 09/17/16 03:39 (Protonix Inj) 40 mg BID IV PUSH 09/15/16 22:45 09/18/16 08:48 (D50w (Vial) Inj) 25 ml UNSCH PRN IV PUSH 09/15/16 22:45 09/16/16 05:30 Glucagon 1 mg 1 mg UNSCH PRN OTHER 09/15/16 22:45 (D5W-1/2 NS 1000 ml Inj) 1,000 ml @ 10 mls/hr Q24H IV 09/16/16 07:30 09/18/16 08:44 (Morphine Inj) 5 mg Q4H PRN IV PUSH 09/17/16 07:45 09/18/16 05:16 (Lasix Inj) 40 mg DAILY IV PUSH 09/17/16 09:00 09/18/16 08:47 (Santyl Oint) 1 applic DAILY TOP 09/17/16 13:00 09/18/16 08:46 (NS Flush) 5 ml DAILY IVF 09/18/16 09:00 09/18/16 08:47 (Heparin Central Flush) 500 units DAILY IVF 09/18/16 09:00 09/18/16 08:47 (NS Flush) 5 ml UNSCH PRN IVF 09/18/16 06:45 (Heparin Central Flush) 500 units UNSCH PRN IVF 09/18/16 06:45 A/P Assessment and Plan SEVERE SEPSIS FALL HEAD INJURY AND KNEE ABRASIONS GASTRITIS ON EGD SEP 18, ANEMIA, ACUTE BLOOD LOSS AND HX ACD. TRANSFUSED. L>R Diabetic foot abscess Charcot's, bilateral. Diabetes uncontrolled. Acute renal failure, d/t sepsis CKD 2 Hyponatremia d/t polydypsia, thorazine, hyperglycemia. EDEMA, SEVERE Schizoprenia Alcoholism HTN DM Peripheral neuropathy Noncompliance PLAN: CERETEC SCAN MONITOR S/P PANSCOPES IV ABX IVF INCR LASIX IV TO BID INSULIN MONITOR NA ID CONSULT PSYCH CONSULT FOR CAPACITY DPM CONSULT WOUND CONSULT GI CONSULT BLOOD CULTURES WOUND CULTURES AM LABS. Jack Rod MD Sep 18, 2016 10:51
[2016-09-18 12:00] VITALS: BP 146/61; PULSE 78; RESP 20; TEMP 96.7; O2SAT 97
[2016-09-18] MEDS: SODIUM CHLORIDE 0.9% FLUSH 5 ML FLUSH FLUSH PRN (13:06)
[2016-09-18 16:00] VITALS: BP 119/56; PULSE 70; RESP 20; TEMP 97.2; O2SAT 97
[2016-09-18 20:00] VITALS: BP 106/54; PULSE 63; PULSE 70; RESP 22; TEMP 97.5; O2SAT 99
--- NOTE | 2016-09-18 21:22 | PD.POD ---
Subjective Podiatric Problems Patient seen at bedside this am, lethargic. Responds to voice commands. Pain scale used: 0-10 numeric scale Past Med/Surg/Social History Past Medical History HEENT: DENIES HX OF: Cataracts, Glaucoma, Recurrent ear infections, Recurrent sinusitis, Other HEENT history Endocrine: REPORTS HX OF: Diabetes mellitus, DENIES HX OF: Graves disease, Hyperthyroidism, Hypothyroidism, Other endocrine history Respiratory: DENIES HX OF: Allergies/hay fever, Asthma, COPD, CPAP use, Sleep apnea, Other respiratory history Cardiovascular: REPORTS HX OF: Hypertension, DENIES HX OF: Abdominal aortic aneurysm, Angina, Atrial fibrillation, Cardiac arrhythmias, Coronary artery disease, Deep venous thrombosis, Heart failure, Heart valve disease, Hyperlipidemia, Myocardial infarction, Peripheral vascular dz, Other CV history Gastrointestinal: DENIES HX OF: Colitis, GERD, Irritable bowel syndrome, Liver disease, Pancreatitis, Peptic ulcer disease, Other GI history Genitourinary: DENIES HX OF: Chlamydia, Gonorrhea, Hemodialysis, Herpes genitalis, Human papillomavirus, Kidney disease, Kidney failure, Kidney stones, Past UTI, Peritoneal dialysis, Urinary incontinence, Other history Genitourinary - male: DENIES HX OF: Benign prost. hyperplasia, Erectile dysfunction, Prostatitis, Testicular problems, Undescended testicle Musculoskeletal: DENIES HX OF: Fibromyalgia, Fractures, Gout, Osteoarthritis, Osteoporosis, Rheumatoid arthritis, Other musculoskeletal hx Cancer/Hematology: DENIES HX OF: Anemia, Bladder Cancer, Blood cancer, Brain cancer, Breast cancer, Colorectal cancer, Endocrine cancer, Eye cancer, GI cancer, cancer, Kidney cancer, Leukemia, Liver cancer, Lung cancer, Lymphoma , Musculoskeletal cancer, Neurologic cancer, Oral cancer, Skin cancer, Stomach cancer, Thyroid cancer, Other cancer/hematology Cancer - male: DENIES HX OF: Prostate cancer, Testicular cancer Infectious disease: DENIES HX OF: AIDS, Chickenpox, Hepatitis, HIV, Measles, MRSA, Mumps, Polio, Positive PPD, Rheumatic fever, Rubella, Syphilis, Tuberculosis, Vanc-resistant enterococc, Other inf disease history Integumentary: DENIES HX OF: Acne, Eczema, Psoriasis, Other integumentary hx Neurologic: DENIES HX OF: ADHD, Autism, Dementia, Developmental delay, Headaches, Multiple sclerosis, Parkinson disease, Peripheral neuropathy, Restless leg syndrome, Seizures, Stroke, Transient ischemic attack, Other neurologic history Psychiatric: DENIES HX OF: Anorexia nervosa, Anxiety, Bipolar disorder, Bulimia , Depression, Schizophrenia, Other psychiatric history Genetic/metabolic: DENIES HX OF: Cystic fibrosis, Down syndrome, Other genetic history, Other metabolic history Disabilities: DENIES HX OF: Hearing deficit, Vision deficit, Hemiparesis, Paraplegia, Quadriplegia, Other disabilities Past Surgical History HEENT: DENIES HX OF: Cataract extraction, Dental surgery, Laryngectomy, Tonsillectomy, Other head surgery, Other eye surgery, Other ear surgery, Other nasal surgery, Other throat surgery Endocrine: DENIES HX OF: Parathyroidectomy, Thyroid surgery, Other endocrine surgery Respiratory: DENIES HX OF: Bronchoscopy, Lobectomy, Other chest surgery Cardiovascular: DENIES HX OF: Angiogram, Angioplasty, CABG surgery, Carotid endarterectomy, Coronary stent, Heart transplant, Pacemaker, Valve replacement, Other cardiac surgery Gastrointestinal: DENIES HX OF: Appendectomy, Cholecystectomy, Colectomy, subtotal, Colectomy, total, Gastric bypass, Hernia repair, Splenectomy, Other GI surgery Genitourinary: DENIES HX OF: Bladder surgery, Kidney stone extraction, Nephrectomy, Other surgery Genitourinary - male: DENIES HX OF: Prostatectomy, TURP, Vasectomy Musculoskeletal: DENIES HX OF: Joint replacement, Other musculoskeletal srg Integumentary: DENIES HX OF: Skin cancer removal, Other integumentary surg Neurologic: DENIES HX OF: Craniotomy, Spinal surgery, Other neurologic surgery Breast: DENIES HX OF: Breast biopsy, Lumpectomy, Mastectomy, bilateral, Mastectomy, left, Mastectomy, right, Other breast surgery Social History Smoking Status: Former Smoker Objective Vital Signs Vital Signs Date Time Temp Pulse Resp B/P Pulse Ox O2 Delivery O2 Flow Rate FiO2 09/18/16 16:00 97.2 70 20 119/56 97 09/18/16 12:48 Room Air 09/18/16 12:00 96.7 78 20 146/61 97 09/18/16 10:14 66 09/18/16 10:03 62 16 120/67 99 09/18/16 09:58 62 16 127/66 98 09/18/16 09:53 96.2 59 16 110/61 99 09/18/16 08:00 96.7 64 18 122/64 98 09/17/16 23:34 97.4 76 20 140/78 99 Coded Allergies: Haldol (Verified Allergy, Severe, BLINDNESS, 09/15/16) Vancomycin (Verified Allergy, Severe, 09/15/16) Levaquin (Verified Allergy, Intermediate, Cramping, 09/15/16) Prolixin (Verified Allergy, Unknown, "[facility] [place]", 09/15/16) Other Results Last Impressions Tumor Localization 09/16/16 0000 Signed Impressions: Service Date/Time: Friday, September 16, 2016 00:00 - CONCLUSION: Cellulitis and abscesses demonstrate radiotracer accumulation characteristic of infection however there is no definite osseous accumulation to suggest osteomyelitis at this time. Significant osseous deformity characteristically Charcot arthropathy. Tony Moreno MD Ribs X-Ray 09/15/[id number] Signed Impressions: Service Date/Time: Thursday, September 15, 2016 20:04 - CONCLUSION: No perceptible rib fracture. No pneumothorax or other acute cardiopulmonary disease demonstrated. Sylvester Ordoñez MD Knee X-Ray 09/15/161916 Signed Impressions: Service Date/Time: Thursday, September 15, 2016 20:13 - CONCLUSION: No fracture or subluxation of the right knee. Sylvester Ordoñez MD Head CT 09/15/161916 Signed Impressions: Service Date/Time: Thursday, September 15, 2016 20:42 - CONCLUSION: Left frontal scalp hematoma. No bleed or other acute intracranial abnormality. Sylvester Ordoñez MD Laboratory Tests Test 09/15/16 09/17/16 09/18/16 20:55 05:00 07:01 Blood Type O POSITIVE Antibody Screen NEGATIVE Crossmatch Leukocyte-Reduced Red Blood Cells Blood Bank Comment Urine Opiates Screen POS Urine Barbiturates Screen NEG Urine Amphetamines Screen NEG Urine Benzodiazepines Screen NEG Urine Cocaine Screen NEG Urine Cannabinoids Screen NEG White Blood Count 10.5 TH/MM3 Red Blood Count 3.18 MIL/MM3 Hemoglobin 8.9 GM/DL Hematocrit 26.2 % Mean Corpuscular Volume 82.5 FL Mean Corpuscular Hemoglobin 27.9 PG Mean Corpuscular Hemoglobin 33.8 % Concent Red Cell Distribution Width 16.3 % Platelet Count 365 TH/MM3 Mean Platelet Volume 8.9 FL Neutrophils (%) (Auto) 74.3 % Lymphocytes (%) (Auto) 10.5 % Monocytes (%) (Auto) 8.8 % Eosinophils (%) (Auto) 5.9 % Basophils (%) (Auto) 0.5 % Neutrophils # (Auto) 7.8 TH/MM3 Lymphocytes # (Auto) 1.1 TH/MM3 Monocytes # (Auto) 0.9 TH/MM3 Eosinophils # (Auto) 0.6 TH/MM3 Basophils # (Auto) 0.1 TH/MM3 CBC Comment DIFF FINAL Differential Comment Sodium Level 127 MEQ/L Potassium Level 4.5 MEQ/L Chloride Level 94 MEQ/L Carbon Dioxide Level 24.6 MEQ/L Anion Gap 8 MEQ/L Blood Urea Nitrogen 16 MG/DL Creatinine 1.70 MG/DL Estimat Glomerular Filtration 42 ML/MIN Rate Random Glucose 86 MG/DL Calcium Level 8.0 MG/DL Exam-Podiatry Dermatological Exam Ulcers: Location/Measurements b/l LE + plantar ulceration with rocker bottom deformity. No active drainage and no purulence noted. Protective sensation is absent. RLE with 3x3 ulcer, probing but not to bone. Mild erythema but no streaking. LLE 1x1 not probing. both are 100 % granular. Assessment & Plan Diagnosis: (1) DM (diabetes mellitus) Status: Chronic (2) Abscess of right foot Status: Acute (3) Charcot foot due to diabetes mellitus Status: Chronic (4) Cellulitis of left foot Status: Chronic (5) Morbid obesity with BMI of 45.0-49.9, adult Status: Chronic A/P Severe b/l Charcot Deformity. Medical Clearance for possible b/l I and D Will discus with patient including risk of worsening abscess, and amputation. Patient is at risk for BK. Gabby Boone DPM Sep 18, 2016 21:22
[2016-09-19] VITALS (7 sets, daily range): BP systolic 117–142; BP diastolic 54–65; PULSE 67–77; RESP 17–22; TEMP 96.8–98; O2SAT 96–99
[2016-09-19] MEDS: cefTRIAXone INJ 2,000 MG in SODIUM CHLORIDE 0.9% INJ 100 ML IV SCH (00:47)
[2016-09-19] MEDS: DEXT 5%-NACL 0.45% 1000 ML INJ 1,000 ML IV SCH (00:48)
[2016-09-19] MEDS: MORPHINE SULFATE 8 MG/ML INJ IV PUSH PRN ×4 (00:54→22:27)
[2016-09-19] MEDS: AMPICILLIN-SULBACTAM INJ 3 GM in SODIUM CHLORIDE 0.9% INJ 100 ML IV SCH ×3 (05:29→15:20)
[2016-09-19] MEDS: ACETAMINOPHEN/HYDROcodone 325 MG/5 MG TAB PO PRN ×3 (05:29→17:58)
[2016-09-19] MEDS: INSULIN ASPART SUPPLEMENTAL SCALE SQ SCH ×4 (05:32→21:00)
[2016-09-19 06:01] LABS: AUTOMATED NEUTROPHIL # 7.1 TH/MM3 (1.8-7.7); BASOPHIL % 0.4 % (0.0-2.0); EOSINOPHIL # 0.7 TH/MM3 (0-0.4); HEMATOCRIT 27.8 % (39.0-51.0); HEMO FLAGS DIFF FINAL; LYMPH % 15.3 % (9.0-44.0); LYMPHOCYTE # 1.6 TH/MM3 (1.0-4.8); MEAN CELL VOLUME 82.8 FL (80.0-100.0); MEAN CORPUSCULAR HGB CONC 33.8 % (32.0-36.0); MONO % 7.3 % (0.0-8.0); PLATELET COUNT 390 TH/MM3 (150-450); RED BLOOD COUNT 3.36 MIL/MM3 (4.50-5.90); RED CELL DISTRIBUTION WIDTH 16.3 % (11.6-17.2); WHITE BLOOD COUNT 10.2 TH/MM3 (4.0-11.0)
[2016-09-19 06:23] LABS: BICARBONATE 24.6 MEQ/L (21.0-32.0); POTASSIUM 4.6 MEQ/L (3.5-5.1)
[2016-09-19] MEDS: FUROSEMIDE 40 MG/4 ML VIAL IV PUSH SCH (09:03)
[2016-09-19] MEDS: PANTOPRAZOLE SODIUM 40 MG VIAL IV PUSH SCH ×2 (09:03→22:27)
[2016-09-19] MEDS: THIORIDAZINE HCL 100 MG PO SCH (09:03)
[2016-09-19] MEDS: Hickman Catheter Daily NS Lock Flush IVF SCH (09:03)
[2016-09-19] MEDS: SODIUM CHLORIDE 0.9% FLUSH 5 ML FLUSH FLUSH SCH ×2 (09:04→21:00)
[2016-09-19] MEDS: LISINOPRIL 10 MG TAB PO SCH (09:04)
[2016-09-19] MEDS: GABAPENTIN 400 MG CAP PO SCH ×3 (09:04→17:57)
[2016-09-19] MEDS: COLLAGENASE OINT 30 GM TUBE TOP SCH (09:04)
--- NOTE | 2016-09-19 11:27 | HHI.FPPN ---
Subjective Remarks ALERT SITTING UP "IM OK" NONCOMPL W LEG ELEVATION D/W RN Objective Vitals Vital Signs Date Time Temp Pulse Resp B/P Pulse Ox O2 Delivery O2 Flow Rate FiO2 09/19/16 09:48 71 09/19/16 09:00 Room Air 09/19/16 08:00 96.8 77 20 142/64 97 09/19/16 04:00 97.8 70 18 119/60 99 09/19/16 00:00 98.0 67 22 117/54 99 09/18/16 20:00 63 09/18/16 20:00 Room Air 09/18/16 20:00 97.5 70 22 106/54 99 09/18/16 16:00 97.2 70 20 119/56 97 09/18/16 12:48 Room Air 09/18/16 12:00 96.7 78 20 146/61 97 I/O 09/18/16 09/18/16 09/18/16 09/19/16 09/19/16 09/19/16 07:00 15:00 23:00 07:00 15:00 23:00 Intake Total 1468 ml 320 ml Output Total 600 ml Balance 1468 ml -280 ml Intake Oral 240 ml 320 ml IV Total 1228 ml Output Urine Total 600 ml # Voids 1 # Bowel Movements 1 Result Diagram: 09/19/16 0530 09/19/16 0530 Objective Remarks GENERAL: SKIN: Warm and dry. HEAD: Atraumatic. Normocephalic. EYES: Pupils equal and round. No scleral icterus. No injection or drainage. ENT: No nasal bleeding or discharge. Mucous membranes pink and moist. NECK: Trachea midline. No JVD. CARDIOVASCULAR: Regular rate and rhythm. RESPIRATORY: No accessory muscle use. Clear to auscultation. Breath sounds equal bilaterally. GASTROINTESTINAL: Abdomen soft, non-tender, nondistended. Hepatic and splenic margins not palpable. MUSCULOSKELETAL: Extremities without clubbing, cyanosis; B CHARCOT FEET, L > R VENTRAL FEET ULCERS NEUROLOGICAL: Awake and alert. No obvious cranial nerve deficits. Motor grossly within normal limits. 2 out of 5 muscle strength in the arms and legs. Normal speech. PSYCHIATRIC: Appropriate mood and affect; insight and judgment normal. Medications and IVs Current Medications Medications (Trade) Dose Ordered Sig/Portia Route Start Time Stop Time Status Last Admin (Norvasc) 10 mg DAILY PO 1/1/17 09:00 09/19/16 09:04 (Neurontin) 400 mg TID PO 09/16/16 09:00 09/19/16 09:04 (Prinivil) 10 mg DAILY PO 09/16/16 09:00 09/19/16 09:04 (Mellaril) 200 mg DAILY PO 09/16/16 09:00 09/19/16 09:03 (NS Flush) 2 ml UNSCH PRN FLUSH 09/15/16 22:45 09/18/16 13:06 (NS Flush) 2 ml BID FLUSH 09/16/16 09:00 09/19/16 09:04 (Tylenol) 650 mg Q4H PRN PO 09/15/16 22:45 (Zofran Inj) 4 mg Q6H PRN IVP 09/15/16 22:45 (Dulcolax Supp) 10 mg DAILY PRN [place] 09/15/16 22:45 (Ambien) 5 mg HS PRN PO 09/15/16 22:45 Naloxone HCl 0.4 mg 0.4 mg UNSCH PRN IV 09/15/16 22:45 Ceftriaxone Sodium 2000 mg/ Sodium Chloride 100 ml @ 200 mls/hr Q24H IV 09/16/16 00:00 09/19/16 00:47 (Unasyn Inj/NS Inj) 100 ml @ 200 mls/hr Q6H IV 09/15/16 23:00 09/19/16 05:29 (Ativan) 0.5 mg Q8H PRN PO 09/15/16 22:45 (Ativan Inj) 0.5 mg Q6H PRN IV PUSH 09/15/16 22:45 09/17/16 18:14 (Catapres) 0.1 mg Q6H PRN PO 09/15/16 22:45 (Vasotec Inj) 2.5 mg Q6H PRN IV PUSH 09/15/16 22:45 ([place] 5-325 Mg) 1 tab Q4H PRN PO 09/15/16 22:45 09/19/16 05:29 (Morphine Inj) 5 mg Q4H PRN IV PUSH 09/15/16 22:45 09/19/16 00:54 (Protonix Inj) 40 mg BID IV PUSH 09/15/16 22:45 09/19/16 09:03 (D50w (Vial) Inj) 25 ml UNSCH PRN IV PUSH 09/15/16 22:45 09/16/16 05:30 Glucagon 1 mg 1 mg UNSCH PRN OTHER 09/15/16 22:45 (D5W-1/2 NS 1000 ml Inj) 1,000 ml @ 10 mls/hr Q24H IV 09/16/16 07:30 09/19/16 00:48 (Morphine Inj) 5 mg Q4H PRN IV PUSH 09/17/16 07:45 09/19/16 09:05 (Santyl Oint) 1 applic DAILY TOP 09/17/16 13:00 09/19/16 09:04 (NS Flush) 5 ml DAILY IVF 09/18/16 09:00 09/19/16 09:03 (Heparin Central Flush) 500 units DAILY IVF 09/18/16 09:00 09/19/16 09:03 (NS Flush) 5 ml UNSCH PRN IVF 09/18/16 06:45 (Heparin Central Flush) 500 units UNSCH PRN IVF 09/18/16 06:45 (Lasix Inj) 40 mg BID IV PUSH 09/18/16 21:00 09/19/16 09:03 A/P Assessment and Plan SEVERE SEPSIS FALL HEAD INJURY AND KNEE ABRASIONS GASTRITIS ON EGD SEP 18, ANEMIA, ACUTE BLOOD LOSS AND HX ACD. TRANSFUSED. L>R Diabetic foot abscess Charcot's, bilateral. Diabetes uncontrolled. Acute renal failure, d/t sepsis CKD 2 Hyponatremia d/t polydypsia, thorazine, hyperglycemia. EDEMA, SEVERE Schizoprenia Alcoholism HTN DM Peripheral neuropathy Noncompliance PLAN: MEDICALLY CLEARED FOR I AND D OF FEET. STOP NORVASC LOWER LASIX D/T BISHOP CERETEC SCAN IV ABX IVF INSULIN MONITOR NA ID CONSULT PSYCH CONSULT FOR CAPACITY DPM CONSULT WOUND CONSULT GI CONSULT BLOOD CULTURES WOUND CULTURES AM LABS. Jack Rod MD Sep 19, 2016 11:27
--- NOTE | 2016-09-19 15:52 | PD.CONS ---
Provisional Diagnosis Admission Date Sep 15, 2016 at 22:18 Leonard I. Chronic paranoid schizophrenia Leonard II. Deferred Leonard III. DM, HTN, hyponatremia History of Present Illness Service Psychiatry Consult Requested By Primary Care Physician Jack Rod MD HPI The patient is a 56 years old man, domicile with parents, single, unemployed, on SSI, with long history of schizophrenia, history of hospitalizations, he has been stable in Mellaril 200 mg daily, no previous suicidal attempts, significant medical history of DM, neuropathy, hypertension, obesity, hospitalized due to post-fall injury, hyponatremia, food abscess. Consulted to psychiatry for capacity to leave AMA. On psychiatric evaluation patient is found calm and cooperative, he explains that he is much better. Denies distress, denies pain, he says that he wants to continue his medical treatment and get better. Patient denies depressive symptoms, denies anxiety, denies past or current monica and perceptual disturbances. There is no visible paranoia, delusions, agitation, aggressive behavior, ideas of reference, flight of ideas or any other signs of acute psychosis. Patient is fully oriented 3, no gross cognitive impairment present. He denies the use of illicit drugs, reports occasional use of alcohol. Regarding his premorbid or reported desire to leave AMA, patient states that he does not want to leave the hospital, he was to continue with medical recommendations and taking his medication. Review of Systems Constitutional: DENIES: Diaphoretic episodes, Fatigue, Fever, Weight gain, Weight loss, Chills, Dizziness, Change in appetite, Night Sweats Endocrine: DENIES: Heat/cold intolerance, Polydipsia, Polyuria, Polyphagia Eyes: DENIES: Blurred vision, Diplopia, Eye inflammation, Eye pain, Vision loss , Photosensitivity, Double Vision Ears, nose, mouth, throat: DENIES: Tinnitus, Hearing loss, Vertigo, Nasal discharge, Oral lesions, Throat pain, Hoarseness, Ear Pain, Running Nose, Epistaxis, Sinus Pain, Toothache, Odynophagia Respiratory: DENIES: Apneas, Cough, Snoring, Wheezing, Hemoptysis, Sputum production, Shortness of breath Cardiovascular: DENIES: Chest pain, Palpitations, Syncope, Dyspnea on Exertion , PND, Lower Extremity Edema, Orthopnea, Claudication Gastrointestinal: DENIES: Abdominal pain, Black stools, Bloody stools, Constipation, Diarrhea, Nausea, Vomiting, Difficulty Swallowing, Anorexia Genitourinary: DENIES: Sexual dysfunction, Urinary frequency, Urinary incontinence, Urgency, Hematuria, Dysuria, Nocturia, Penile Discharge, Testicular Pain, Testicular Swelling Musculoskeletal: DENIES: Joint pain, Muscle aches, Stiffness, Joint Swelling, Back pain, Neck pain Integumentary: DENIES: Abnormal pigmentation, Nail changes, Pruritus, Rash Hematologic/lymphatic: DENIES: Bruising, Lymphadenopathy Immunologic/allergic: DENIES: Eczema, Urticaria Neurologic: DENIES: Abnormal gait, Headache, Localized weakness, Paresthesias, Seizures, Speech Problems, Tremor, Poor Balance Psychiatric: DENIES: Anxiety, Confusion, Mood changes, Depression, Hallucinations, Agitation, Suicidal Ideation, Homicidal Ideation, Delusions Past Family Social History Coded Allergies: Haldol (Verified Allergy, Severe, BLINDNESS, 09/15/16) Vancomycin (Verified Allergy, Severe, 09/15/16) Levaquin (Verified Allergy, Intermediate, Cramping, 09/15/16) Prolixin (Verified Allergy, Unknown, "PARKINSONIAN SHACKS", 09/15/16) *MDRO Multi-Drug Resistant Organism (Verified Adverse Reaction, Unknown, VRE, 09/19/16) 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 Active Scripts Insulin Aspart Inj (Novolog Inj)100 Unit/Ml Inj1 Units SQ ACHS SLIDING SCALE 90 Days Prov:Jack Rod MD 08/28/16 Ceftriaxone Inj 2 Gm/50 Ml Bagp2 Gm IV Q24H 42 Days Ref 0 Prov:Kathryn Quintana MD 08/26/16 Ampicillin-Sulbactam Inj (Unasyn Inj)3 Gm Vial3 Gm IV Q6H 42 Days Ref 0 Prov:Kathryn Quintana MD 08/26/16 Reported Medications Glipizide 5 Mg Tab5 Mg PO BIDAC #60 TAB Ref 0 Take 30 minutes before a meal 09/15/16 Lisinopril 10 Mg Tab10 Mg PO DAILY #30 TAB Ref 0 08/10/16 Amlodipine (Norvasc)10 Mg Tab10 Mg PO DAILY #30 TAB Ref 0 08/10/16 Gabapentin (Neurontin)400 Mg Jwi300 Mg PO TID #30 CAP Ref 0 08/10/[address] (Aspirin 81)81 Mg Tabdr81 Mg PO DAILY Ref 0 08/10/16 Thioridazine 100 Mg Reg754 Mg PO DAILY #30 TAB Ref 0 08/10/16 Discontinued Scripts Hydrocodone-Acetaminophen (Lortab)10-325 Mg Tab1 Tab PO Q4H PRN (PAIN) #90 TAB Ref 0 Prov:Jack Rod MD 08/27/16 Lorazepam (Ativan)0.5 Mg Tab0.5 Mg PO Q8H PRN (SEVERE ANXIETY OR AGITATION) #60 TAB Ref 5 Prov:Jack Rod MD 08/27/16 Epinephrine Inj 1 Mg/Ml Inj0.3 Mg SQ ONCE PRN (ALLERGIC REACTION) #1 VIAL Give with any signs of respiratory distress. Prov:Kathryn Quintana MD 08/26/16 Epinephrine Inj 1 Mg/Ml Inj0.3 Mg IV PUSH ONCE PRN (ALLERGIC REACTION) #1 VIAL Prov:Kathryn Quintana MD 08/26/16 Hydrocortisone Inj (Solu-Cortef Inj)250 Mg [id number] Mg IV PUSH ONCE PRN (ALLERGIC REACTION) #1 VIAL Ref 0 Give over 30-60 seconds. Prov:Kathryn Quintana MD 08/26/16 Ibuprofen 400 Mg [id number] Mg PO Q6H PRN (PAIN SCALE 1 TO 4) #20 TAB Ref 0 Prov:Ann-Marie Khan DO 08/10/16 Ondansetron Odt (Zofran Odt)4 Mg Tab4 Mg SL Q6HR PRN (Nausea/Vomiting) #6 TAB Ref 0 Prov:Ann-Marie Khan DO 08/10/16 Current Medications Medications (Trade) Dose Ordered Sig/Portia Route Start Time Stop Time Status Last Admin (Neurontin) 400 mg TID PO 09/16/16 09:00 09/19/16 11:38 (Prinivil) 10 mg DAILY PO 09/16/16 09:00 09/19/16 09:04 (Mellaril) 200 mg DAILY PO 09/16/16 09:00 09/19/16 09:03 (NS Flush) 2 ml UNSCH PRN FLUSH 09/15/16 22:45 09/18/16 13:06 (NS Flush) 2 ml BID FLUSH 09/16/16 09:00 09/19/16 09:04 (Tylenol) 650 mg Q4H PRN PO 09/15/16 22:45 (Zofran Inj) 4 mg Q6H PRN IVP 09/15/16 22:45 (Dulcolax Supp) 10 mg DAILY PRN MT 09/15/16 22:45 (Ambien) 5 mg HS PRN PO 09/15/16 22:45 Naloxone HCl 0.4 mg 0.4 mg UNSCH PRN IV 09/15/16 22:45 Ceftriaxone Sodium 2000 mg/ Sodium Chloride 100 ml @ 200 mls/hr Q24H IV 09/16/16 00:00 09/19/16 00:47 (Unasyn Inj/NS Inj) 100 ml @ 200 mls/hr Q6H IV 09/15/16 23:00 09/19/16 15:20 (Ativan) 0.5 mg Q8H PRN PO 09/15/16 22:45 (Ativan Inj) 0.5 mg Q6H PRN IV PUSH 09/15/16 22:45 09/17/16 18:14 (Catapres) 0.1 mg Q6H PRN PO 09/15/16 22:45 (Vasotec Inj) 2.5 mg Q6H PRN IV PUSH 09/15/16 22:45 (Burton 5-325 Mg) 1 tab Q4H PRN PO 09/15/16 22:45 09/19/16 12:00 (Morphine Inj) 5 mg Q4H PRN IV PUSH 09/15/16 22:45 09/19/16 00:54 (Protonix Inj) 40 mg BID IV PUSH 09/15/16 22:45 09/19/16 09:03 (D50w (Vial) Inj) 25 ml UNSCH PRN IV PUSH 09/15/16 22:45 09/16/16 05:30 Glucagon 1 mg 1 mg UNSCH PRN OTHER 09/15/16 22:45 (D5W-09/17 NS 1000 ml Inj) 1,000 ml @ 10 mls/hr Q24H IV 09/16/16 07:30 09/19/16 00:48 (Morphine Inj) 5 mg Q4H PRN IV PUSH 09/17/16 07:45 09/19/16 15:20 (Santyl Oint) 1 applic DAILY TOP 09/17/16 13:00 09/19/16 09:04 (NS Flush) 5 ml DAILY IVF 09/18/16 09:00 09/19/16 09:03 (Heparin Central Flush) 500 units DAILY IVF 09/18/16 09:00 09/19/16 09:03 (NS Flush) 5 ml UNSCH PRN IVF 09/18/16 06:45 (Heparin Central Flush) 500 units UNSCH PRN IVF 09/18/16 06:45 (Lasix Inj) 40 mg DAILY IV PUSH 09/20/16 09:00 Physical Exam Vital Signs Vital Signs Date Time Temp Pulse Resp B/P Pulse Ox O2 Delivery O2 Flow Rate FiO2 09/19/16 12:00 97.3 74 22 131/59 98 09/19/16 09:00 Room Air 09/16/16 07:06 21 I/O 09/18/16 09/18/16 09/19/16 08:00 16:00 00:00 Intake Total 1468 ml 320 ml Output Total 600 ml Balance 1468 ml -280 ml Mental Status Examination Speech: Unremarkable Orientation: x3 Memory: Unremarkable Thought Process: Logical Thought Content: Unremarkable Hallucination Type: None Suicidal Ideation: No Previous Suicide Attempts: No Homicidal Ideation: No Previous Homicide Attempts: No Judgement: WNL Affect: Other Affect if Inappropriate: Flat Mood: Appropriate Motor Activity: Normal gait Assessment & Plan Problem List: (1) Schizophrenia Assessment & Plan: 56-year-old man, with a long history of paranoid schizophrenia, previous hospitalizations, stable on Mellaril 200 mg daily, he has an outpatient psychiatrist, Dr. Trevizo in [facility]. At the moment of this evaluation the patient does not present any signs symptoms of psychotic decompensation, he denies depressive symptoms, denies anxiety, denies perceptual disturbances. No paranoia, delusions, disorganized behavior or thoughts, agitation, ideas of reference, flight of ideas, tangentiality, could be elicited during this evaluation. Seems to be that the patient is a stable chronic schizophrenic patient, he doesn 't need any immediate psychiatric intervention at this moment. He can continue his psychiatric care as an outpatient. Regarding his capacity to leave AMA, since patient is agreeing to stay in the hospital and is not refusing to follow medical recommendations, assessment of capacity is not applicable at this moment. However, mental capacity can change from minute to minute, so if another assessment of capacity is needed at any moment, please just let me know. If any questions please contact me to my cell phone, Consult appreciated. ICD Code: F20.9 Assessment & Plan Estimated LOS: days Problem Qualifiers (1) Schizophrenia: Qualified Code: F20.0 - Paranoid schizophrenia Rasheed Mcdonald MD Sep 19, 2016 15:52
--- NOTE | 2016-09-19 16:05 | PD.ID.CON ---
History of Present Illness Service ID Consult Requested By Dr Rod Reason for Consult L foot cultures Primary Care Physician Jack Rod MD Diagnoses: History of Present Illness 56 yo male with h/o DM and Charcot feet deformities (b/l), morbid obesity , non ambulatory status He has b/l non healing plantar ulcers x 6 mos He is admitted 5 days ago after he fell. Per him he lost his balance Denies fever, chills nightsweats He was seen by baffle installer and debridement is scheduled for tomorrow His L foot clx is growing VRS Pt has a ho ARF a/w vancomycin use On admission pt was found to have mild leukocytosis, which resolved, no fever He denies other complaints. No diarrhea no vomiting Review of Systems Other as per history of present illness, the rest of 12 point review is negative Past Family Social History Allergies: Coded Allergies: Haldol (Verified Allergy, Severe, BLINDNESS, 09/29/16) Vancomycin (Verified Allergy, Severe, 09/29/16) Levaquin (Verified Allergy, Intermediate, Cramping, 09/29/16) Prolixin (Verified Allergy, Unknown, "PARKINSONIAN SHACKS", 09/29/16) *MDRO Multi-Drug Resistant Organism (Verified Adverse Reaction, Unknown, VRE, 09/29/16) 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 Past Medical History R Diabetic foot abscess possible osteomyelitis Charcot's, bilateral. Diabetes uncontrolled. Acute renal failure, CKD 2 Schizoprenia Anemia of chronic disease, Iron defc anemia Alcoholism HTN DM Peripheral neuropathy Noncompliance Past Surgical History I&D of foot wound Active Ordered Medications Medications where reviewed in EMR Antibiotics Include: Unasyn CFTX Family History HTN Social History Single, lives with parents, no alcohol, no smoking Physical Exam Vital Signs Vital Signs Date Time Temp Pulse Resp B/P Pulse Ox O2 Delivery O2 Flow Rate FiO2 09/19/16 12:00 97.3 74 22 131/59 98 09/19/16 09:48 71 09/19/16 09:00 Room Air 09/19/16 08:00 96.8 77 20 142/64 97 09/19/16 04:00 97.8 70 18 119/60 99 09/19/16 00:00 98.0 67 22 117/54 99 09/18/16 20:00 63 09/18/16 20:00 Room Air 09/18/16 20:00 97.5 70 22 106/54 99 09/18/16 16:00 97.2 70 20 119/56 97 Physical Exam CONSTITUTIONAL/GENERAL: This is morbidly obese patient, in no apparent distress. SKIN: No jaundice, rashes, or lesions. Skin temperature appropriate. Not diaphoretic. HEAD: Atraumatic. Normocephalic. EYES: Pupils equal and round and reactive. Extraocular motions intact. No scleral icterus. No injection or drainage. Fundi not examined. ENT: Hearing grossly normal. Nose without bleeding or purulent drainage. Oral mucoase without visible erythema, exudates, masses, or lesions. Poor dentition NECK: Trachea midline. Supple, nontender. CARDIOVASCULAR: Regular rate and rhythm without murmurs, gallops, or rubs. No JVD. RESPIRATORY/CHEST: Symmetric, unlabored respirations. Clear to auscultation. Breath sounds equal bilaterally. No wheezes, rales, or rhonchi. GASTROINTESTINAL: Abdomen soft, obese non-tender, nondistended. No hepato- splenomegaly, or palpable masses. No guarding. Bowel sounds present. MUSCULOSKELETAL: Extremities without clubbing, cyanosis, Status Localis: B/l LE marked 4+ edema. + rocker bottom b/l feet deformities R foot ulcer, 2.5 cm , undermined probing about 2 cm, minimal serous d/c, no odor L foot ulcer, 1.5 cm, probibg 1.5 cm, minimal serosang dc, no odor Sensation markedly decreased on b/l feet to light touch Pulses non palpable likely 2/2 prominent edema, refill is brisk, perfusion is normal No mottling or clubbing. NEUROLOGICAL: Awake and alert. Follows commands. Normal speech . Moves all extremities. PSYCHIATRIC: No obvious anxiety/depression. no apparent hallucinations or other psychotic thought process. Laboratory Laboratory Tests Test 09/19/16 05:30 White Blood Count 10.2 Red Blood Count 3.36 Hemoglobin 9.4 Hematocrit 27.8 Mean Corpuscular Volume 82.8 Mean Corpuscular Hemoglobin 28.0 Mean Corpuscular Hemoglobin 33.8 Concent Red Cell Distribution Width 16.3 Platelet Count 390 Mean Platelet Volume 8.6 Neutrophils (%) (Auto) 70.0 Lymphocytes (%) (Auto) 15.3 Monocytes (%) (Auto) 7.3 Eosinophils (%) (Auto) 7.0 Basophils (%) (Auto) 0.4 Neutrophils # (Auto) 7.1 Lymphocytes # (Auto) 1.6 Monocytes # (Auto) 0.7 Eosinophils # (Auto) 0.7 Basophils # (Auto) 0.0 CBC Comment DIFF FINAL Differential Comment Sodium Level 125 Potassium Level 4.6 Chloride Level 91 Carbon Dioxide Level 24.6 Anion Gap 9 Blood Urea Nitrogen 17 Creatinine 1.99 Estimat Glomerular Filtration 35 Rate Random Glucose 109 Calcium Level 7.9 Date/Time Procedure Status Source Growth 09/16/16 08:25 Gram Stain - Final Complete Wound Foot 09/16/16 08:25 Wound Culture - Final Complete Enterococcus Faecium Vre Result Diagram: 09/19/16 0530 09/19/16 0530 Imaging Last Impressions Tumor Localization 09/16/16 0000 Signed Impressions: Service Date/Time: Friday, September 16, 2016 00:00 - CONCLUSION: Cellulitis and abscesses demonstrate radiotracer accumulation characteristic of infection however there is no definite osseous accumulation to suggest osteomyelitis at this time. Significant osseous deformity characteristically Charcot arthropathy. Tony Moreno MD Ribs X-Ray 09/15/161916 Signed Impressions: Service Date/Time: Thursday, September 15, 2016 20:04 - CONCLUSION: No perceptible rib fracture. No pneumothorax or other acute cardiopulmonary disease demonstrated. Sylvester Ordoñez MD Knee X-Ray 09/15/161916 Signed Impressions: Service Date/Time: Thursday, September 15, 2016 20:13 - CONCLUSION: No fracture or subluxation of the right knee. Sylvester Ordoñez MD Head CT 09/15/161916 Signed Impressions: Service Date/Time: Thursday, September 15, 2016 20:42 - CONCLUSION: Left frontal scalp hematoma. No bleed or other acute intracranial abnormality. Sylvester Ordoñez MD Assessment and Plan Assessment and Plan Diabetic feet infected ulcers b/l feet osteomyelitis less likely per imaging studies, favouring Charcot arthropathy. [facility] Unasyn and ROCEPHIN Start daptomycin Kari Lund MD Sep 19, 2016 16:05
[2016-09-19] MEDS: DAPTOmycin INJ 700 MG in SODIUM CHLORIDE 0.9% INJ 100 ML IV SCH (22:28)
[2016-09-20] VITALS (7 sets, daily range): BP systolic 114–164; BP diastolic 62–71; PULSE 75–78; RESP 18–20; TEMP 97.2–98.2; O2SAT 92–99
[2016-09-20 06:19] LABS: AUTOMATED NEUTROPHIL # 6.3 TH/MM3 (1.8-7.7); BASOPHIL # 0.1 TH/MM3 (0-0.2); BASOPHIL % 0.6 % (0.0-2.0); EOSINOPHIL # 0.7 TH/MM3 (0-0.4); EOSINOPHIL % 7.6 % (0.0-4.0); HEMATOCRIT 26.4 % (39.0-51.0); HEMO FLAGS DIFF FINAL; LYMPH % 14.9 % (9.0-44.0); LYMPHOCYTE # 1.4 TH/MM3 (1.0-4.8); MEAN CELL VOLUME 82.4 FL (80.0-100.0); MEAN CORPUSCULAR HEMOGLOBIN 27.7 PG (27.0-34.0); MEAN CORPUSCULAR HGB CONC 33.6 % (32.0-36.0); MONO % 8.7 % (0.0-8.0); NEUT % 68.2 % (16.0-70.0); PLATELET COUNT 385 TH/MM3 (150-450); RED CELL DISTRIBUTION WIDTH 16.5 % (11.6-17.2); WHITE BLOOD COUNT 9.2 TH/MM3 (4.0-11.0)
[2016-09-20] MEDS: ACETAMINOPHEN/HYDROcodone 325 MG/5 MG TAB PO PRN ×2 (06:27→11:44)
[2016-09-20] MEDS: INSULIN ASPART SUPPLEMENTAL SCALE SQ SCH ×4 (06:27→20:10)
[2016-09-20 06:37] LABS: BICARBONATE 24.5 MEQ/L (21.0-32.0); POTASSIUM 4.7 MEQ/L (3.5-5.1)
[2016-09-20] MEDS: DEXT 5%-NACL 0.45% 1000 ML INJ 1,000 ML IV SCH (08:39)
[2016-09-20] MEDS: LISINOPRIL 10 MG TAB PO SCH (08:41)
[2016-09-20] MEDS: GABAPENTIN 400 MG CAP PO SCH (08:41)
[2016-09-20] MEDS: PANTOPRAZOLE SODIUM 40 MG VIAL IV PUSH SCH ×2 (08:41→20:09)
[2016-09-20] MEDS: SODIUM CHLORIDE 0.9% FLUSH 5 ML FLUSH FLUSH SCH ×2 (08:41→19:30)
[2016-09-20] MEDS: Hickman Catheter Daily NS Lock Flush IVF SCH (08:41)
[2016-09-20] MEDS: THIORIDAZINE HCL 100 MG PO SCH (08:42)
[2016-09-20] MEDS: COLLAGENASE OINT 30 GM TUBE TOP SCH (08:42)
[2016-09-20] MEDS: MORPHINE SULFATE 8 MG/ML INJ IV PUSH PRN ×2 (08:53→22:18)
[2016-09-20] MEDS ORDERED: FUROSEMIDE 40 MG/4 ML VIAL IV PUSH SCH (09:00)
--- NOTE | 2016-09-20 10:44 | HHI.FPPN ---
Subjective Remarks SITTING UP EATING D/W RN NONCOMPL W ELEV LEGS Objective Vitals Vital Signs Date Time Temp Pulse Resp B/P Pulse Ox O2 Delivery O2 Flow Rate FiO2 09/20/16 08:50 Room Air 09/20/16 08:50 78 09/20/16 08:00 97.8 76 20 164/71 97 09/20/16 04:00 98.2 75 18 144/65 96 09/20/16 00:00 98.0 75 18 141/63 96 09/19/16 20:00 Room Air 09/19/16 20:00 69 09/19/16 20:00 97.7 73 17 136/61 96 09/19/16 16:00 97.3 72 20 131/65 97 09/19/16 12:00 97.3 74 22 131/59 98 I/O 09/19/16 09/19/16 09/19/16 09/20/16 09/20/16 09/20/16 07:00 15:00 23:00 07:00 15:00 23:00 Intake Total 1354 ml 360 ml 819 ml Output Total 1000 ml 1000 ml 550 ml Balance 354 ml -640 ml 269 ml Intake Oral 1200 ml 360 ml 480 ml IV Total 154 ml 339 ml Output Urine Total 1000 ml 1000 ml 550 ml # Bowel Movements 0 Result Diagram: 09/20/16 0600 09/20/16 0600 Objective Remarks GENERAL: SKIN: Warm and dry. HEAD: Atraumatic. Normocephalic. EYES: Pupils equal and round. No scleral icterus. No injection or drainage. ENT: No nasal bleeding or discharge. Mucous membranes pink and moist. NECK: Trachea midline. No JVD. CARDIOVASCULAR: Regular rate and rhythm. RESPIRATORY: No accessory muscle use. Clear to auscultation. Breath sounds equal bilaterally. GASTROINTESTINAL: Abdomen soft, non-tender, nondistended. Hepatic and splenic margins not palpable. MUSCULOSKELETAL: Extremities without clubbing, cyanosis; B CHARCOT FEET, L > R VENTRAL FEET ULCERS NEUROLOGICAL: Awake and alert. No obvious cranial nerve deficits. Motor grossly within normal limits. 2 out of 5 muscle strength in the arms and legs. Normal speech. PSYCHIATRIC: Appropriate mood and affect; insight and judgment normal. Medications and IVs Current Medications Medications (Trade) Dose Ordered Sig/Portia Route Start Time Stop Time Status Last Admin (Neurontin) 400 mg TID PO 09/16/16 09:00 09/20/16 08:41 (Prinivil) 10 mg DAILY PO 09/16/16 09:00 09/20/16 08:41 (Mellaril) 200 mg DAILY PO 09/16/16 09:00 09/20/16 08:42 (NS Flush) 2 ml UNSCH PRN FLUSH 09/15/16 22:45 09/18/16 13:06 (NS Flush) 2 ml BID FLUSH 09/16/16 09:00 09/20/16 08:41 (Tylenol) 650 mg Q4H PRN PO 09/15/16 22:45 (Zofran Inj) 4 mg Q6H PRN IVP 09/15/16 22:45 (Dulcolax Supp) 10 mg DAILY PRN RI 09/15/16 22:45 (Ambien) 5 mg HS PRN PO 09/15/16 22:45 (Narcan Inj) 0.4 mg UNSCH PRN IV 09/15/16 22:45 (Ativan) 0.5 mg Q8H PRN PO 09/15/16 22:45 (Ativan Inj) 0.5 mg Q6H PRN IV PUSH 09/15/16 22:45 09/17/16 18:14 (Catapres) 0.1 mg Q6H PRN PO 09/15/16 22:45 (Vasotec Inj) 2.5 mg Q6H PRN IV PUSH 09/15/16 22:45 (Wilson 5-325 Mg) 1 tab Q4H PRN PO 09/15/16 22:45 09/20/16 06:27 (Morphine Inj) 5 mg Q4H PRN IV PUSH 09/15/16 22:45 09/20/16 08:53 (Protonix Inj) 40 mg BID IV PUSH 09/15/16 22:45 09/20/16 08:41 (D50w (Vial) Inj) 25 ml UNSCH PRN IV PUSH 09/15/16 22:45 09/16/16 05:30 Glucagon 1 mg 1 mg UNSCH PRN OTHER 09/15/16 22:45 (D5W-09/17 NS 1000 ml Inj) 1,000 ml @ 10 mls/hr Q24H IV 09/16/16 07:30 09/20/16 08:39 (Morphine Inj) 5 mg Q4H PRN IV PUSH 09/17/16 07:45 09/19/16 15:20 (Santyl Oint) 1 applic DAILY TOP 09/17/16 13:00 09/19/16 09:04 (NS Flush) 5 ml DAILY IVF 09/18/16 09:00 09/20/16 08:41 (Heparin Central Flush) 500 units DAILY IVF 09/18/16 09:00 09/20/16 08:41 (NS Flush) 5 ml UNSCH PRN IVF 09/18/16 06:45 (Heparin Central Flush) 500 units UNSCH PRN IVF 09/18/16 06:45 Furosemide 40 mg 40 mg DAILY IV PUSH 09/20/16 09:00 09/20/16 08:41 (Cubicin Inj/NS Inj) 100 ml @ 200 mls/hr Q24H IV 09/19/16 18:00 09/19/16 22:28 A/P Assessment and Plan SEVERE SEPSIS, RESOLVED. FALL HEAD INJURY AND KNEE ABRASIONS GASTRITIS ON EGD SEP 18, ANEMIA, ACUTE BLOOD LOSS AND HX ACD. TRANSFUSED. 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 Diabetes uncontrolled. Acute renal failure, d/t sepsis CKD 2 Hyponatremia d/t polydypsia, thorazine, hyperglycemia. EDEMA, SEVERE Schizoprenia Alcoholism HTN DM Peripheral neuropathy Noncompliance. PT understands will likely lose limbs if continues to remain noncompliant with elev of legs. PLAN: MEDICALLY CLEARED FOR I AND D OF FEET. STOPPED NORVASC STOP BERTRAM I, LASIX, NEURONTIN CERETEC SCAN IV ABX IVF INSULIN MONITOR NA ID CONSULT PSYCH CONSULT FOR CAPACITY DPM CONSULT WOUND CONSULT GI CONSULT BLOOD CULTURES WOUND CULTURES AM LABS. Jack Rod MD Sep 20, 2016 10:44
[2016-09-20] MEDS ORDERED: ePHEDrine/NS 50 MG/5 ML SYR IV ONE (12:00)
[2016-09-20] MEDS ORDERED: ONDANSETRON HCL 4 MG/2 ML VIAL IV PUSH ONE (12:00)
[2016-09-20] MEDS ORDERED: PROPOFOL 200 MG/20 ML AMP IV ONE (12:00)
[2016-09-20] MEDS ORDERED: LIDOCAINE HCL 2% 50 ML VIAL ONE (16:29)
[2016-09-20] MEDS ORDERED: BUPIVACAINE HCL PF 0.5% 30 ML VIAL ONE (16:29)
[2016-09-20] MEDS ORDERED: FAMOTIDINE 20 MG/2 ML VIAL ONE (17:11)
[2016-09-20] MEDS ORDERED: SUGAMMADEX SODIUM 200 MG/2 ML VIAL IV PUSH ONE ×2 (17:14)
[2016-09-20] MEDS: DAPTOmycin INJ 700 MG in SODIUM CHLORIDE 0.9% INJ 100 ML IV SCH ×2 (17:25→17:50)
[2016-09-20] MEDS ORDERED: NEOMYCIN/POLYMYXIN 1 ML G.U. IRRIGANT IR ONE (17:49)
[2016-09-20] MEDS ORDERED: DO NOT ADM ANY ANTICOAGULANT DRUGS XX PRN (19:08)
--- NOTE | 2016-09-20 19:13 | HHI.PR ---
Dr Boone Immediate Post Op Note Procedure Date: Sep 20, 2016 Pre Op Diagnosis: Post Op Diagnosis: Surgeon: Gabby Boone Paper And Prints Restorer(s): None Procedure: 1) Right foot Incision and drainage 2) Application of skin substitute right foot 3) Left foot Incision and drainage 2) Application of skin substitute left foot Findings: No purulence noted in either foot with multiple levels of probing in all directions Complications: None Specimen(s) removed: None Estimated blood loss: 30 cc Anesthesia: General Tourniquet time (min at mmHg) Right ankle at 250 mmHG for 20 minutes Left ankle at 250 mmHG for 20 minutes Patient to: PACU Patient Condition: Good Implant/Devices: SEE IMPLANT LOG (if applicable) Date/Time of Procedure: SEE SURGICAL CARE RECORD Gabby Boone DPM Sep 20, 2016 19:13
[2016-09-20 19:55] LABS: HEMATOCRIT 25.7 % (39.0-51.0); REVIEW FLAG FINAL
--- NOTE | 2016-09-20 23:10 | MP ---
cc: GOGO BOONE DPM DATE OF SURGERY 09/20/16 1960 SURGEON Micheline Boone MD PREOPERATIVE DIAGNOSIS 1. Bilateral foot abscess 2. Bilateral chronic ulcer 3. Bilateral chronic Charcot deformity. POSTOPERATIVE DIAGNOSIS 1. Bilateral foot abscess 2. Bilateral chronic ulcer 3. Bilateral chronic Charcot deformity. PROCEDURE #1 and 2 Bilateral right foot I&D PROCEDURE #3 and 4 Bilateral application of skin substitute ANESTHESIOLOGIST Dr. Levine ANESTHESIA General HEMOSTASIS Right ankle tourniquet 250 mmHg for 20 minutes, left ankle tourniquet at 250 mmHg for 23 minutes ESTIMATED BLOOD LOSS 30 mL MATERIALS 2-0 nylon and 1 unit of Apligraf skin substitute. INJECTABLES Postoperatively left foot 10 mL 0.5% Marcaine plain. BRIEF HISTORY The patient is a 56-year-old male with a longstanding history of multiple comorbidities and an extensive medical history including diabetes, Charcot deformity, kidney disease, chronic kidney disease stage III, schizophrenia, non-weightbearing, morbid obesity. The patient has been hospitalized multiple times. His most recent hospitalization was for a fall with head trauma. The patient was additionally consulted for lower extremity with a SPECT CT scan indicated that there were some bilateral foot abscesses noted. I discussed with the radiologist Dr. Estrella in at extent and he reiterated that based on the findings of the SPECT CT that it is likely that there is abscesses which are existing directly below the ulcerated region of the foot and tracking as a sinus. Given the patient's medical history, I discussed with the patient his options conservatively as continuing with IV antibiotics with being risk for abscess formation and additional worsening. We did discuss potential I&Ds and the patient decided that he would go ahead with surgical intervention. I did discuss at length with the patient risks, benefits, pros and cons including complications of additional surgery, worsening additional infection, worsening of the Charcot deformity, and at risk for amputation given his significant medical history. Risks, risks, benefits, pros and cons discussed with the patient and he freely consented to surgical intervention. No guarantees were given or implied. The patient consented to the identified procedures. PROCEDURE IN DETAIL The patient was brought into the operating room, placed on the operating table in the supine position. After LMA was administered bilateral feet were prepped, scrubbed and draped usual sterile aseptic manner. Prior to prep and drape, bilateral ankle blocks were given using 10 mL of a one-to-one mixture of 2% lidocaine plain along with 0.5% Marcaine plain. Attention was then directed to the right foot where using gravity exsanguination the right leg was elevated, held for several minutes and then the tourniquet inflated. Attention was then directed to the ulcerated plantar lesion. Using a #15 blade, the incision was deepened through the ulcer deep to the wound. Using blunt dissection and a blunt hemostat, the wound was evaluated, dissected down to the level of the plantar mid foot. There was no purulence evolved in this area. The incision was explored in all planes both deep and superficial to the skin and the granular tissue. There was no purulence identified whatsoever, no malodor. The wound was sharply debrided using a #15 blade to remove, excise and debride necrotic nonviable tissue down to healthy bleeding tissue. The incision was then pulse lavaged and then a half of one unit of an Apligraf was applied to the wound base. This was Steri-Stripped in placed. Adaptic, 4x4s, and Barry and a light Coban was applied on the foot thereafter. Tourniquet was deflated after 20 minutes and a prompt hyperresponsive one through five on the right. Procedure number 2 and 4: Procedure #1 and 3 was repeated on the left foot with the same results as well as tourniquet time of 23 minutes. The incision was also repaired using 2-0 nylon in a Regulo vertical mattress suture type fashion and 10 mL of 0.5% Marcaine was applied to the left foot. The patient tolerated procedure. He will be transferred to PACU for a brief period of postop monitoring after which he will be discharged to the floor. The patient will be followed up appropriately while in house. RUSSELL Starks /10:17 PM /10:43 PM MEKA
[2016-09-21] VITALS (7 sets, daily range): BP systolic 123–165; BP diastolic 55–73; PULSE 79–93; RESP 17–20; TEMP 97.4–97.8; O2SAT 95–98
[2016-09-21] MEDS: INSULIN ASPART SUPPLEMENTAL SCALE SQ SCH ×4 (05:21→20:19)
[2016-09-21 05:50] LABS: AUTOMATED NEUTROPHIL # 6.8 TH/MM3 (1.8-7.7); BASOPHIL % 0.5 % (0.0-2.0); EOSINOPHIL # 0.4 TH/MM3 (0-0.4); EOSINOPHIL % 4.3 % (0.0-4.0); HEMATOCRIT 24.3 % (39.0-51.0); HEMO FLAGS DIFF FINAL; LYMPH % 15.5 % (9.0-44.0); LYMPHOCYTE # 1.5 TH/MM3 (1.0-4.8); MEAN CELL VOLUME 83.6 FL (80.0-100.0); MEAN CORPUSCULAR HEMOGLOBIN 28.5 PG (27.0-34.0); MONO % 10.5 % (0.0-8.0); NEUT % 69.2 % (16.0-70.0); PLATELET COUNT 349 TH/MM3 (150-450); WHITE BLOOD COUNT 9.8 TH/MM3 (4.0-11.0)
[2016-09-21 06:07] LABS: BICARBONATE 23.1 MEQ/L (21.0-32.0); POTASSIUM 4.5 MEQ/L (3.5-5.1)
[2016-09-21] MEDS: MORPHINE SULFATE 8 MG/ML INJ IV PUSH PRN ×4 (06:41→20:14)
[2016-09-21] MEDS: COLLAGENASE OINT 30 GM TUBE TOP SCH (09:12)
[2016-09-21] MEDS: DEXT 5%-NACL 0.45% 1000 ML INJ 1,000 ML IV SCH (09:28)
[2016-09-21] MEDS: SODIUM CHLORIDE 0.9% FLUSH 5 ML FLUSH FLUSH SCH ×2 (09:28→20:13)
[2016-09-21] MEDS: PANTOPRAZOLE SODIUM 40 MG VIAL IV PUSH SCH ×2 (09:28→20:15)
[2016-09-21] MEDS: Hickman Catheter Daily NS Lock Flush IVF SCH (09:29)
[2016-09-21] MEDS: THIORIDAZINE HCL 100 MG PO SCH (09:29)
[2016-09-21] MEDS: ACETAMINOPHEN/HYDROcodone 325 MG/5 MG TAB PO PRN ×3 (09:30→17:42)
--- NOTE | 2016-09-21 11:14 | HHI.FPPN ---
Subjective Remarks UP SITTING ON TOILET HAVING DIARRHEA SEVERE EDEMA AGITATED Objective Vitals Vital Signs Date Time Temp Pulse Resp B/P Pulse Ox O2 Delivery O2 Flow Rate FiO2 09/21/16 08:00 97.5 82 20 165/73 95 09/21/16 07:05 16 09/21/16 04:00 97.4 79 18 126/61 98 09/21/16 00:00 97.5 79 17 149/70 97 09/20/16 21:00 Room Air 09/20/16 20:00 77 09/20/16 20:00 97.2 77 18 114/68 99 09/20/16 19:45 97.6 79 19 145/72 98 Nasal Cannula 3 09/20/16 19:30 78 11 147/75 98 Nasal Cannula 3 09/20/16 19:15 80 12 135/69 98 Nasal Cannula 3 09/20/16 19:08 97.7 90 12 128/63 98 Nasal Cannula 3 09/20/16 16:00 97.8 77 20 156/67 92 09/20/16 12:00 97.5 75 20 131/62 96 I/O 09/20/16 09/20/16 09/20/16 09/21/16 09/21/16 09/21/16 07:00 15:00 23:00 07:00 15:00 23:00 Intake Total 819 ml 480 ml 1420 ml 973 ml Output Total 550 ml 850 ml 450 ml 1350 ml Balance 269 ml -370 ml 970 ml -377 ml Intake Oral 480 ml 480 ml 420 ml 480 ml IV Total 339 ml 100 ml 493 ml Other 900 ml Output Urine Total 550 ml 850 ml 400 ml 1350 ml Estimated Blood Loss 50 ml Other 0 ml # Bowel Movements 0 0 0 Result Diagram: 09/21/1651909/21/1620 Objective Remarks GENERAL: MUSCULOSKELETAL: obvious severe edema, legs wrapped, NEUROLOGICAL: Awake and alert. Normal speech. PSYCHIATRIC: Appropriate mood and affect; insight and judgment normal. Medications and IVs Current Medications Medications (Trade) Dose Ordered Sig/Portia Route Start Time Stop Time Status Last Admin (Mellaril) 200 mg DAILY PO 09/16/16 09:00 09/21/16 09:29 (NS Flush) 2 ml UNSCH PRN FLUSH 09/15/16 22:45 09/18/16 13:06 (NS Flush) 2 ml BID FLUSH 09/16/16 09:00 09/21/16 09:28 (Tylenol) 650 mg Q4H PRN PO 09/15/16 22:45 (Zofran Inj) 4 mg Q6H PRN IVP 09/15/16 22:45 (Dulcolax Supp) 10 mg DAILY PRN [place] 09/15/16 22:45 (Ambien) 5 mg HS PRN PO 09/15/16 22:45 (Narcan Inj) 0.4 mg UNSCH PRN IV 09/15/16 22:45 (Ativan) 0.5 mg Q8H PRN PO 09/15/16 22:45 (Ativan Inj) 0.5 mg Q6H PRN IV PUSH 09/15/16 22:45 09/17/16 18:14 (Catapres) 0.1 mg Q6H PRN PO 09/15/16 22:45 (Vasotec Inj) 2.5 mg Q6H PRN IV PUSH 09/15/16 22:45 ([place] 5-325 Mg) 1 tab Q4H PRN PO 09/15/16 22:45 09/21/16 09:30 (Morphine Inj) 5 mg Q4H PRN IV PUSH 09/15/16 22:45 09/21/16 06:41 (Protonix Inj) 40 mg BID IV PUSH 09/15/16 22:45 09/21/16 09:28 (D50w (Vial) Inj) 25 ml UNSCH PRN IV PUSH 09/15/16 22:45 09/16/16 05:30 Glucagon 1 mg 1 mg UNSCH PRN OTHER 09/15/16 22:45 (D5W-09/17 NS 1000 ml Inj) 1,000 ml @ 10 mls/hr Q24H IV 09/16/16 07:30 09/21/16 09:28 (Morphine Inj) 5 mg Q4H PRN IV PUSH 09/17/16 07:45 09/19/16 15:20 (Santyl Oint) 1 applic DAILY TOP 09/17/16 13:00 09/19/16 09:04 (NS Flush) 5 ml DAILY IVF 09/18/16 09:00 09/21/16 09:29 (Heparin Central Flush) 500 units DAILY IVF 09/18/16 09:00 09/21/16 09:28 (NS Flush) 5 ml UNSCH PRN IVF 09/18/16 06:45 Heparin Sodium (Porcine) 500 units 500 units UNSCH PRN IVF 09/18/16 06:45 (Cubicin Inj/NS Inj) 100 ml @ 200 mls/hr Q24H IV 09/19/16 18:00 09/20/16 17:50 Miscellaneous Information ALL NURSING DEPARTME... UNSCH PRN XX 09/20/16 19:08 09/21/16 19:07 A/P Assessment and Plan SEVERE SEPSIS, RESOLVED. VRE L>R Diabetic foot abscess. s/p I AND D BILAT FEET SEP 20, CERETEC SCAN Charcot's, bilateral. Diabetes uncontrolled. FALL HEAD INJURY AND KNEE ABRASIONS GASTRITIS ON EGD SEP 18, ANEMIA, ACUTE BLOOD LOSS AND HX ACD. TRANSFUSED. Acute renal failure, d/t sepsis CKD 2 Hyponatremia d/t polydypsia, thorazine, hyperglycemia. EDEMA, SEVERE Schizoprenia Alcoholism HTN DM Peripheral neuropathy Noncompliance. PT understands will likely lose limbs if continues to remain noncompliant with elev of legs. PLAN: STOPPED NORVASC STOPPED BERTRAM I, LASIX, NEURONTIN IV ABX STOP IVF INSULIN MONITOR NA ID CONSULT PSYCH CONSULT FOR CAPACITY DPM CONSULT WOUND CONSULT GI CONSULT BLOOD CULTURES WOUND CULTURES AM LABS. Jack Rod MD Sep 21, 2016 11:14
[2016-09-21] MEDS: DAPTOmycin INJ 700 MG in SODIUM CHLORIDE 0.9% INJ 100 ML IV SCH (17:42)
[2016-09-21] MEDS: SODIUM CHLORIDE 0.9% FLUSH 5 ML FLUSH FLUSH PRN (20:21)
[2016-09-22] VITALS (7 sets, daily range): BP systolic 141–183; BP diastolic 65–79; PULSE 78–87; RESP 12–20; TEMP 97.4–98.2; O2SAT 95–98
[2016-09-22] MEDS: ACETAMINOPHEN/HYDROcodone 325 MG/5 MG TAB PO PRN ×3 (01:27→21:48)
[2016-09-22] MEDS: INSULIN ASPART SUPPLEMENTAL SCALE SQ SCH ×4 (05:40→21:00)
[2016-09-22] MEDS: MORPHINE SULFATE 8 MG/ML INJ IV PUSH PRN ×3 (05:50→16:48)
[2016-09-22] MEDS: SODIUM CHLORIDE 0.9% FLUSH 5 ML FLUSH FLUSH PRN (05:51)
[2016-09-22 06:52] LABS: BICARBONATE 24.8 MEQ/L (21.0-32.0); POTASSIUM 5.4 MEQ/L (3.5-5.1)
[2016-09-22 07:10] LABS: AUTOMATED NEUTROPHIL # 6.8 TH/MM3 (1.8-7.7); BASOPHIL % 0.2 % (0.0-2.0); EOSINOPHIL # 0.5 TH/MM3 (0-0.4); EOSINOPHIL % 4.9 % (0.0-4.0); HEMO FLAGS DIFF FINAL; LYMPH % 15.7 % (9.0-44.0); LYMPHOCYTE # 1.5 TH/MM3 (1.0-4.8); MEAN CELL VOLUME 82.9 FL (80.0-100.0); MEAN CORPUSCULAR HEMOGLOBIN 28.8 PG (27.0-34.0); MEAN CORPUSCULAR HGB CONC 34.8 % (32.0-36.0); MONO % 9.3 % (0.0-8.0); NEUT % 69.9 % (16.0-70.0); PLATELET COUNT 320 TH/MM3 (150-450); RED BLOOD COUNT 2.77 MIL/MM3 (4.50-5.90); RED CELL DISTRIBUTION WIDTH 16.4 % (11.6-17.2); WHITE BLOOD COUNT 9.7 TH/MM3 (4.0-11.0)
[2016-09-22] MEDS: PANTOPRAZOLE SODIUM 40 MG VIAL IV PUSH SCH ×2 (08:22→21:52)
[2016-09-22] MEDS: THIORIDAZINE HCL 100 MG PO SCH (08:22)
[2016-09-22] MEDS: SODIUM CHLORIDE 0.9% FLUSH 5 ML FLUSH FLUSH SCH ×2 (08:23→21:49)
[2016-09-22] MEDS: Hickman Catheter Daily NS Lock Flush IVF SCH (08:24)
[2016-09-22] MEDS: COLLAGENASE OINT 30 GM TUBE TOP SCH (08:42)
--- NOTE | 2016-09-22 09:40 | HHI.FPPN ---
Subjective Remarks C/O EDEMA REFUSING ELEV LEGS C/O PAIN D/W LABS D/W RN Objective Vitals Vital Signs Date Time Temp Pulse Resp B/P Pulse Ox O2 Delivery O2 Flow Rate FiO2 09/22/16 07:52 98.0 81 20 150/68 96 09/22/16 04:00 97.4 78 16 157/68 97 09/22/16 00:01 98.0 80 12 141/65 98 09/21/16 20:38 97.4 82 20 146/66 97 09/21/16 20:15 Room Air 09/21/16 20:00 80 09/21/16 18:40 16 09/21/16 16:23 16 09/21/16 16:00 97.6 82 20 136/60 96 09/21/16 12:00 97.8 93 20 123/55 98 I/O 09/21/16 09/21/16 09/21/16 09/22/16 09/22/16 09/22/16 07:00 15:00 23:00 07:00 15:00 23:00 Intake Total 973 ml 1920 ml 740 ml 600 ml Output Total 1350 ml 900 ml 600 ml Balance -377 ml 1020 ml 140 ml 600 ml Intake Oral 480 ml 1920 ml 480 ml 600 ml IV Total 493 ml 260 ml Output Urine Total 1350 ml 900 ml 600 ml # Voids 3 # Bowel Movements 0 1 Result Diagram: 09/22/1645 09/22/1645 Objective Remarks GENERAL: MUSCULOSKELETAL: obvious severe edema, legs wrapped, NEUROLOGICAL: Awake and alert. Normal speech. PSYCHIATRIC: Appropriate mood and affect; insight and judgment normal. Medications and IVs Current Medications Medications (Trade) Dose Ordered Sig/Portia Route Start Time Stop Time Status Last Admin (Mellaril) 200 mg DAILY PO 09/16/16 09:00 09/22/16 08:22 (NS Flush) 2 ml UNSCH PRN FLUSH 09/15/16 22:45 09/22/16 05:51 (NS Flush) 2 ml BID FLUSH 09/16/16 09:00 09/22/16 08:23 (Tylenol) 650 mg Q4H PRN PO 09/15/16 22:45 (Zofran Inj) 4 mg Q6H PRN IVP 09/15/16 22:45 (Dulcolax Supp) 10 mg DAILY PRN [place] 09/15/16 22:45 (Ambien) 5 mg HS PRN PO 09/15/16 22:45 (Narcan Inj) 0.4 mg UNSCH PRN IV 09/15/16 22:45 (Ativan) 0.5 mg Q8H PRN PO 09/15/16 22:45 (Ativan Inj) 0.5 mg Q6H PRN IV PUSH 09/15/16 22:45 09/17/16 18:14 (Catapres) 0.1 mg Q6H PRN PO 09/15/16 22:45 (Vasotec Inj) 2.5 mg Q6H PRN IV PUSH 09/15/16 22:45 ([place] 5-325 Mg) 1 tab Q4H PRN PO 09/15/16 22:45 09/22/16 01:27 (Morphine Inj) 5 mg Q4H PRN IV PUSH 09/15/16 22:45 09/21/16 16:11 (Protonix Inj) 40 mg BID IV PUSH 09/15/16 22:45 09/22/16 08:22 (D50w (Vial) Inj) 25 ml UNSCH PRN IV PUSH 09/15/16 22:45 09/16/16 05:30 (Glucagon Inj) 1 mg UNSCH PRN OTHER 09/15/16 22:45 (Morphine Inj) 5 mg Q4H PRN IV PUSH 09/17/16 07:45 09/22/16 05:50 (Santyl Oint) 1 applic DAILY TOP 09/17/16 13:00 09/22/16 08:42 (NS Flush) 5 ml DAILY IVF 09/18/16 09:00 09/22/16 08:24 (Heparin Central Flush) 500 units DAILY IVF 09/18/16 09:00 09/22/16 08:24 (NS Flush) 5 ml UNSCH PRN IVF 09/18/16 06:45 Heparin Sodium (Porcine) 500 units 500 units UNSCH PRN IVF 09/18/16 06:45 (Cubicin Inj/NS Inj) 100 ml @ 200 mls/hr Q24H IV 09/19/16 18:00 09/21/16 17:42 A/P Assessment and Plan SEVERE SEPSIS, RESOLVED. VRE L>R Diabetic foot abscess. s/p I AND D BILAT FEET SEP 20, CERETEC SCAN Charcot's, bilateral. Diabetes uncontrolled. FALL HEAD INJURY AND KNEE ABRASIONS GASTRITIS ON EGD SEP 18, ANEMIA, ACUTE BLOOD LOSS AND HX ACD. TRANSFUSED. Acute renal failure, d/t sepsis CKD 2 Hyponatremia d/t polydypsia, thorazine, hyperglycemia. EDEMA, SEVERE Schizoprenia Alcoholism HTN DM Peripheral neuropathy Noncompliance. PT understands will likely lose limbs if continues to remain noncompliant with elev of legs. PLAN: RESTART IV LASIX BID FOR HYPERKALEMIA AND MASSIVE EDEMA STOPPED NORVASC STOPPED BERTRAM I, NEURONTIN IV ABX STOPPED IVF INSULIN MONITOR NA ID CONSULT PSYCH CONSULT FOR CAPACITY DPM CONSULT WOUND CONSULT GI CONSULT BLOOD CULTURES WOUND CULTURES AM LABS. Jack Rod MD Sep 22, 2016 09:40
--- NOTE | 2016-09-22 11:19 | PD.POD ---
Subjective Podiatric Problems Patient seen at bedside this am, Doing well. But significant edema and asking for his Lasix to be restarted. s/p b/l Incision and Drainage and b/l skin substitute application feet. DOS 09/20/16 Pain scale used: 0-10 numeric scale Pain score: 0 Past Med/Surg/Social History Past Medical History HEENT: DENIES HX OF: Cataracts, Glaucoma, Recurrent ear infections, Recurrent sinusitis, Other HEENT history Endocrine: REPORTS HX OF: Diabetes mellitus, DENIES HX OF: Graves disease, Hyperthyroidism, Hypothyroidism, Other endocrine history Respiratory: DENIES HX OF: Allergies/hay fever, Asthma, COPD, CPAP use, Sleep apnea, Other respiratory history Cardiovascular: REPORTS HX OF: Hypertension, DENIES HX OF: Abdominal aortic aneurysm, Angina, Atrial fibrillation, Cardiac arrhythmias, Coronary artery disease, Deep venous thrombosis, Heart failure, Heart valve disease, Hyperlipidemia, Myocardial infarction, Peripheral vascular dz, Other CV history Gastrointestinal: DENIES HX OF: Colitis, GERD, Irritable bowel syndrome, Liver disease, Pancreatitis, Peptic ulcer disease, Other GI history Genitourinary: DENIES HX OF: Chlamydia, Gonorrhea, Hemodialysis, Herpes genitalis, Human papillomavirus, Kidney disease, Kidney failure, Kidney stones, Past UTI, Peritoneal dialysis, Urinary incontinence, Other history Genitourinary - male: DENIES HX OF: Benign prost. hyperplasia, Erectile dysfunction, Prostatitis, Testicular problems, Undescended testicle Musculoskeletal: DENIES HX OF: Fibromyalgia, Fractures, Gout, Osteoarthritis, Osteoporosis, Rheumatoid arthritis, Other musculoskeletal hx Cancer/Hematology: DENIES HX OF: Anemia, Bladder Cancer, Blood cancer, Brain cancer, Breast cancer, Colorectal cancer, Endocrine cancer, Eye cancer, GI cancer, cancer, Kidney cancer, Leukemia, Liver cancer, Lung cancer, Lymphoma , Musculoskeletal cancer, Neurologic cancer, Oral cancer, Skin cancer, Stomach cancer, Thyroid cancer, Other cancer/hematology Cancer - male: DENIES HX OF: Prostate cancer, Testicular cancer Infectious disease: DENIES HX OF: AIDS, Chickenpox, Hepatitis, HIV, Measles, MRSA, Mumps, Polio, Positive PPD, Rheumatic fever, Rubella, Syphilis, Tuberculosis, Vanc-resistant enterococc, Other inf disease history Integumentary: DENIES HX OF: Acne, Eczema, Psoriasis, Other integumentary hx Neurologic: DENIES HX OF: ADHD, Autism, Dementia, Developmental delay, Headaches, Multiple sclerosis, Parkinson disease, Peripheral neuropathy, Restless leg syndrome, Seizures, Stroke, Transient ischemic attack, Other neurologic history Psychiatric: DENIES HX OF: Anorexia nervosa, Anxiety, Bipolar disorder, Bulimia , Depression, Schizophrenia, Other psychiatric history Genetic/metabolic: DENIES HX OF: Cystic fibrosis, Down syndrome, Other genetic history, Other metabolic history Disabilities: DENIES HX OF: Hearing deficit, Vision deficit, Hemiparesis, Paraplegia, Quadriplegia, Other disabilities Past Surgical History HEENT: DENIES HX OF: Cataract extraction, Dental surgery, Laryngectomy, Tonsillectomy, Other head surgery, Other eye surgery, Other ear surgery, Other nasal surgery, Other throat surgery Endocrine: DENIES HX OF: Parathyroidectomy, Thyroid surgery, Other endocrine surgery Respiratory: DENIES HX OF: Bronchoscopy, Lobectomy, Other chest surgery Cardiovascular: DENIES HX OF: Angiogram, Angioplasty, CABG surgery, Carotid endarterectomy, Coronary stent, Heart transplant, Pacemaker, Valve replacement, Other cardiac surgery Gastrointestinal: DENIES HX OF: Appendectomy, Cholecystectomy, Colectomy, subtotal, Colectomy, total, Gastric bypass, Hernia repair, Splenectomy, Other GI surgery Genitourinary: DENIES HX OF: Bladder surgery, Kidney stone extraction, Nephrectomy, Other surgery Genitourinary - male: DENIES HX OF: Prostatectomy, TURP, Vasectomy Musculoskeletal: DENIES HX OF: Joint replacement, Other musculoskeletal srg Integumentary: DENIES HX OF: Skin cancer removal, Other integumentary surg Neurologic: DENIES HX OF: Craniotomy, Spinal surgery, Other neurologic surgery Breast: DENIES HX OF: Breast biopsy, Lumpectomy, Mastectomy, bilateral, Mastectomy, left, Mastectomy, right, Other breast surgery Social History Smoking Status: Former Smoker Objective Vital Signs Vital Signs Date Time Temp Pulse Resp B/P Pulse Ox O2 Delivery O2 Flow Rate FiO2 09/22/16 07:52 98.0 81 20 150/68 96 09/22/16 04:00 97.4 78 16 157/68 97 09/22/16 00:01 98.0 80 12 141/65 98 09/21/16 20:38 97.4 82 20 146/66 97 09/21/16 20:15 Room Air 09/21/16 20:00 80 09/21/16 18:40 16 09/21/16 16:23 16 09/21/16 16:00 97.6 82 20 136/60 96 09/21/16 12:00 97.8 93 20 123/55 98 Coded Allergies: Haldol (Verified Allergy, Severe, BLINDNESS, 09/15/16) Vancomycin (Verified Allergy, Severe, 09/15/16) Levaquin (Verified Allergy, Intermediate, Cramping, 09/15/16) Prolixin (Verified Allergy, Unknown, "[facility]ACKS", 09/15/16) *MDRO Multi-Drug Resistant Organism (Verified Adverse Reaction, Unknown, VRE, 09/19/16) 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 Other Results Laboratory Tests Test 09/22/16 05:45 White Blood Count 9.7 TH/MM3 Red Blood Count 2.77 MIL/MM3 Hemoglobin 8.0 GM/DL Hematocrit 23.0 % Mean Corpuscular Volume 82.9 FL Mean Corpuscular Hemoglobin 28.8 PG Mean Corpuscular Hemoglobin 34.8 % Concent Red Cell Distribution Width 16.4 % Platelet Count 320 TH/MM3 Mean Platelet Volume 8.5 FL Neutrophils (%) (Auto) 69.9 % Lymphocytes (%) (Auto) 15.7 % Monocytes (%) (Auto) 9.3 % Eosinophils (%) (Auto) 4.9 % Basophils (%) (Auto) 0.2 % Neutrophils # (Auto) 6.8 TH/MM3 Lymphocytes # (Auto) 1.5 TH/MM3 Monocytes # (Auto) 0.9 TH/MM3 Eosinophils # (Auto) 0.5 TH/MM3 Basophils # (Auto) 0.0 TH/MM3 CBC Comment DIFF FINAL Differential Comment Sodium Level 126 MEQ/L Potassium Level 5.4 MEQ/L Chloride Level 95 MEQ/L Carbon Dioxide Level 24.8 MEQ/L Anion Gap 6 MEQ/L Blood Urea Nitrogen 25 MG/DL Creatinine 1.97 MG/DL Estimat Glomerular Filtration 36 ML/MIN Rate Random Glucose 105 MG/DL Calcium Level 8.5 MG/DL Exam-Podiatry Dermatological Exam Ulcers: Location/Measurements b/l feet with no active drainage. Intact skin substitute. Intact sutures left, plantar foot. Protective sensation is diminished. Assessment & Plan Diagnosis: (1) DM (diabetes mellitus) Status: Chronic (2) Abscess of right foot Status: Acute (3) Charcot foot due to diabetes mellitus Status: Chronic (4) Cellulitis of left foot Status: Chronic (5) Morbid obesity with BMI of 45.0-49.9, adult Status: Chronic A/P Severe b/l Charcot Deformity. s/p b/l I and D and b/l skin substitute application b/l feet. DOS 09/20/16 Intraop , there was no evidence of abscess or purulence or malodor. Dissection was carried down to the plantar midfoot and probe to bone bluntly in all directions and planes. DSD reapplied. Needs NWB to PWB left with CAM. May use right CAM as needed for balance only with a walker. A consult was place on 09/20/16 for Physical Therapy and recommendations on assistive devices. Keep dressing clean dry and intact until f/u with Dr Boone with in 1 week of d /c. Ok to d/c to Rehabilitation Facility. Gabby Boone DPM Sep 22, 2016 11:19
[2016-09-22] MEDS: DAPTOmycin INJ 700 MG in SODIUM CHLORIDE 0.9% INJ 100 ML IV SCH (16:47)
[2016-09-22] MEDS: FUROSEMIDE 40 MG/4 ML VIAL IV PUSH SCH (16:47)
[2016-09-23] VITALS (7 sets, daily range): BP systolic 129–173; BP diastolic 58–77; PULSE 75–91; RESP 18–20; TEMP 97.5–98; O2SAT 94–96
[2016-09-23] MEDS: INSULIN ASPART SUPPLEMENTAL SCALE SQ SCH ×4 (05:08→20:27)
[2016-09-23] MEDS: ACETAMINOPHEN/HYDROcodone 325 MG/5 MG TAB PO PRN ×3 (05:08→20:09)
[2016-09-23 05:13] LABS: AUTOMATED NEUTROPHIL # 6.5 TH/MM3 (1.8-7.7); BASOPHIL # 0.1 TH/MM3 (0-0.2); BASOPHIL % 0.7 % (0.0-2.0); EOSINOPHIL # 0.4 TH/MM3 (0-0.4); EOSINOPHIL % 4.4 % (0.0-4.0); HEMATOCRIT 24.6 % (39.0-51.0); HEMO FLAGS DIFF FINAL; LYMPH % 17.4 % (9.0-44.0); LYMPHOCYTE # 1.7 TH/MM3 (1.0-4.8); MEAN CELL VOLUME 82.3 FL (80.0-100.0); MEAN CORPUSCULAR HEMOGLOBIN 28.4 PG (27.0-34.0); MEAN CORPUSCULAR HGB CONC 34.5 % (32.0-36.0); MONO % 9.6 % (0.0-8.0); NEUT % 67.9 % (16.0-70.0); PLATELET COUNT 339 TH/MM3 (150-450); RED BLOOD COUNT 2.99 MIL/MM3 (4.50-5.90); RED CELL DISTRIBUTION WIDTH 16.8 % (11.6-17.2); WHITE BLOOD COUNT 9.5 TH/MM3 (4.0-11.0)
[2016-09-23 05:35] LABS: BICARBONATE 27.4 MEQ/L (21.0-32.0)
--- NOTE | 2016-09-23 07:50 | HHI.FPPN ---
Subjective Remarks d/w DC PLANS NONCOMPL PER THERAPY D/W RN Objective Vitals Vital Signs Date Time Temp Pulse Resp B/P Pulse Ox O2 Delivery O2 Flow Rate FiO2 09/23/16 04:00 97.9 88 20 129/58 96 09/23/16 00:02 78 09/23/16 00:00 97.8 87 20 166/72 95 09/22/16 21:30 Room Air 09/22/16 20:00 98.2 81 20 164/72 96 09/22/16 16:00 97.9 87 20 183/79 97 09/22/16 12:11 97.8 83 20 172/74 95 09/22/16 10:30 14 09/22/16 09:00 14 09/22/16 08:00 96 Room Air 09/22/16 08:00 85 09/22/16 07:52 98.0 81 20 150/68 96 I/O 09/22/16 09/22/16 09/22/16 09/23/16 09/23/16 09/23/16 07:00 15:00 23:00 07:00 15:00 23:00 Intake Total 600 ml 960 ml 600 ml 220 ml Output Total 3500 ml 1000 ml 2400 ml Balance 600 ml -2540 ml -400 ml -2180 ml Intake Oral 600 ml 960 ml 600 ml 220 ml Output Urine Total 3500 ml 1000 ml 2400 ml # Voids 3 # Bowel Movements 0 0 0 Result Diagram: 09/23/1644409/23/16444 Objective Remarks GENERAL: MUSCULOSKELETAL: obvious severe edema, legs wrapped, NEUROLOGICAL: Awake and alert. Normal speech. PSYCHIATRIC: Appropriate mood and affect; insight and judgment normal. Medications and IVs Current Medications Medications (Trade) Dose Ordered Sig/Portia Route Start Time Stop Time Status Last Admin (Mellaril) 200 mg DAILY PO 09/16/16 09:00 09/22/16 08:22 (NS Flush) 2 ml UNSCH PRN FLUSH 09/15/16 22:45 09/22/16 05:51 (NS Flush) 2 ml BID FLUSH 09/16/16 09:00 09/22/16 21:49 (Tylenol) 650 mg Q4H PRN PO 09/15/16 22:45 (Zofran Inj) 4 mg Q6H PRN IVP 09/15/16 22:45 (Dulcolax Supp) 10 mg DAILY PRN [place] 09/15/16 22:45 (Ambien) 5 mg HS PRN PO 09/15/16 22:45 (Narcan Inj) 0.4 mg UNSCH PRN IV 09/15/16 22:45 (Ativan) 0.5 mg Q8H PRN PO 09/15/16 22:45 (Ativan Inj) 0.5 mg Q6H PRN IV PUSH 09/15/16 22:45 09/17/16 18:14 (Catapres) 0.1 mg Q6H PRN PO 09/15/16 22:45 (Vasotec Inj) 2.5 mg Q6H PRN IV PUSH 09/15/16 22:45 ([place] 5-325 Mg) 1 tab Q4H PRN PO 09/15/16 22:45 09/23/16 05:08 (Morphine Inj) 5 mg Q4H PRN IV PUSH 09/15/16 22:45 09/22/16 16:48 (Protonix Inj) 40 mg BID IV PUSH 09/15/16 22:45 09/22/16 21:52 (D50w (Vial) Inj) 25 ml UNSCH PRN IV PUSH 09/15/16 22:45 09/16/16 05:30 (Glucagon Inj) 1 mg UNSCH PRN OTHER 09/15/16 22:45 (Morphine Inj) 5 mg Q4H PRN IV PUSH 09/17/16 07:45 09/22/16 10:00 (Santyl Oint) 1 applic DAILY TOP 09/17/16 13:00 09/22/16 08:42 (NS Flush) 5 ml DAILY IVF 09/18/16 09:00 09/22/16 08:24 (Heparin Central Flush) 500 units DAILY IVF 09/18/16 09:00 09/22/16 08:24 (NS Flush) 5 ml UNSCH PRN IVF 09/18/16 06:45 Heparin Sodium (Porcine) 500 units 500 units UNSCH PRN IVF 09/18/16 06:45 (Cubicin Inj/NS Inj) 100 ml @ 200 mls/hr Q24H IV 09/19/16 18:00 09/22/16 16:47 (Lasix Inj) 40 mg BID@09,18 IV PUSH 09/22/16 18:00 09/22/16 16:47 A/P Assessment and Plan SEVERE SEPSIS, RESOLVED. VRE R Diabetic foot abscess. s/p I AND D BILAT FEET SEP 20, CERETEC SCAN L FOOT CELLULITIS Charcot's, bilateral. Diabetes uncontrolled. FALL HEAD INJURY AND KNEE ABRASIONS GASTRITIS ON EGD SEP 18, ANEMIA, ACUTE BLOOD LOSS AND HX ACD. TRANSFUSED. Acute renal failure, d/t sepsis CKD 2 Hyponatremia d/t polydypsia, thorazine, hyperglycemia. EDEMA, SEVERE Schizoprenia Alcoholism HTN DM Peripheral neuropathy Noncompliance. PT understands will likely lose limbs if continues to remain noncompliant with elev of legs. PLAN: DC PLANS, ID FOLLOWUP FOR ABX RECS. 3008 AND NARC RX IN CHART. RESTARTED IV LASIX BID FOR HYPERKALEMIA AND MASSIVE EDEMA STOPPED NORVASC STOPPED BERTRAM I, NEURONTIN IV ABX STOPPED IVF INSULIN MONITOR NA ID CONSULT PSYCH CONSULT FOR CAPACITY DPM CONSULT WOUND CONSULT GI CONSULT BLOOD CULTURES WOUND CULTURES AM LABS. Jack Rod MD Sep 23, 2016 07:50
[2016-09-23] MEDS: PANTOPRAZOLE SODIUM 40 MG VIAL IV PUSH SCH ×2 (07:53→20:09)
[2016-09-23] MEDS: FUROSEMIDE 40 MG/4 ML VIAL IV PUSH SCH ×2 (07:54→17:46)
[2016-09-23] MEDS: MORPHINE SULFATE 8 MG/ML INJ IV PUSH PRN ×3 (07:54→21:59)
[2016-09-23] MEDS: COLLAGENASE OINT 30 GM TUBE TOP SCH (07:54)
[2016-09-23] MEDS: SODIUM CHLORIDE 0.9% FLUSH 5 ML FLUSH FLUSH SCH ×2 (07:54→20:09)
[2016-09-23] MEDS: Hickman Catheter Daily NS Lock Flush IVF SCH (07:54)
[2016-09-23] MEDS: THIORIDAZINE HCL 100 MG PO SCH (07:55)
[2016-09-23] MEDS ORDERED: LORA-392 PO (08:05)
[2016-09-23] MEDS ORDERED: HYDR-3516 PO (08:05)
[2016-09-23] MEDS: DAPTOmycin INJ 700 MG in SODIUM CHLORIDE 0.9% INJ 100 ML IV SCH (17:46)
[2016-09-24] VITALS (7 sets, daily range): BP systolic 151–196; BP diastolic 68–84; PULSE 71–89; RESP 16–20; TEMP 97.2–98.8; O2SAT 92–97
[2016-09-24] MEDS: ACETAMINOPHEN/HYDROcodone 325 MG/5 MG TAB PO PRN ×3 (05:01→18:56)
[2016-09-24] MEDS: INSULIN ASPART SUPPLEMENTAL SCALE SQ SCH ×4 (05:02→22:03)
[2016-09-24] MEDS: MORPHINE SULFATE 8 MG/ML INJ IV PUSH PRN (06:57)
[2016-09-24] MEDS: PANTOPRAZOLE SODIUM 40 MG VIAL IV PUSH SCH ×2 (09:15→22:02)
[2016-09-24] MEDS: THIORIDAZINE HCL 100 MG PO SCH (09:15)
[2016-09-24] MEDS: FUROSEMIDE 40 MG/4 ML VIAL IV PUSH SCH ×2 (09:16→18:00)
[2016-09-24] MEDS: SODIUM CHLORIDE 0.9% FLUSH 5 ML FLUSH FLUSH SCH ×2 (09:16→22:02)
[2016-09-24] MEDS: Hickman Catheter Daily NS Lock Flush IVF SCH (09:16)
[2016-09-24] MEDS: COLLAGENASE OINT 30 GM TUBE TOP SCH (09:30)
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
--- NOTE | 2016-09-24 12:32 | HHI.DCPOC ---
Discharge Care Plan Diagnosis: (1) Acute renal failure (2) Anemia (3) Hyponatremia (4) Renal insufficiency (5) Schizophrenia (6) Sepsis (7) Hypertension (8) Obesity (9) ETOH abuse (10) CKD (chronic kidney disease) stage 3, GFR 30-59 ml/min (11) Abscess of right foot (12) Impaired mobility and activities of daily living (13) Type 2 diabetes mellitus with foot ulcer (14) Noncompliance (15) Cellulitis of left foot (16) Charcot foot due to diabetes mellitus Goals to Promote Your Health * To prevent worsening of your condition and complications * To maintain your health at the optimal level Directions to Meet Your Goals Take your medications as prescribed Follow your dietary instruction Follow activity as directed Keep your appointments as scheduled Take your immunizations and boosters as scheduled If your symptoms worsen call your PCP, if no PCP go to Urgent Care Center or Emergency Room Smoking is Dangerous to Your Health. Avoid second hand smoke Call the 24-hour hour crisis hotline for domestic abuse at Jack Rod MD Sep 24, 2016 12:32
[2016-09-24] MEDS ORDERED: FURO1TAB60 PO (12:36)
--- NOTE | 2016-09-24 15:10 | HHI.PR ---
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
[2016-09-24] MEDS: cloNIDine HCL 0.1 MG TAB PO PRN (17:06)
[2016-09-24] MEDS: DAPTOmycin INJ 700 MG in SODIUM CHLORIDE 0.9% INJ 100 ML IV SCH (17:07)
[2016-09-25 00:15] VITALS: BP 152/60
[2016-09-25 04:46] VITALS: BP 175/76; PULSE 72; RESP 16; TEMP 98.1; O2SAT 96
[2016-09-25] MEDS: INSULIN ASPART SUPPLEMENTAL SCALE SQ SCH (07:00)
[2016-09-25] MEDS: FUROSEMIDE 40 MG/4 ML VIAL IV PUSH SCH (07:57)
[2016-09-25] MEDS: PANTOPRAZOLE SODIUM 40 MG VIAL IV PUSH SCH (07:57)
[2016-09-25] MEDS: Hickman Catheter Daily NS Lock Flush IVF SCH (07:58)
[2016-09-25] MEDS: THIORIDAZINE HCL 100 MG PO SCH (07:58)
[2016-09-25] MEDS: SODIUM CHLORIDE 0.9% FLUSH 5 ML FLUSH FLUSH SCH (08:15)
[2016-09-25] MEDS: COLLAGENASE OINT 30 GM TUBE TOP SCH (09:00)
[2016-09-25] MEDS ORDERED: LIDOCAINE 1%/EPINEPHrine 1:100,000 SOLN 20 ML VIAL ONE (10:07)
[2016-09-25] MEDS: cloNIDine HCL 0.1 MG TAB PO PRN (11:34)
--- NOTE | 2016-09-25 11:37 | RADRPT ---
EXAM DATE/TIME: 09/25/2016 00:00 [facility] COMPARISON: No previous studies available for comparison. INDICATIONS : Patient no longer needs verma catheter. MEDICAL HISTORY : History of chronic bilateral foot ulcers, Chrcot foot, CKD, HTN, DM, anemia, schizophrenia. SURGICAL HISTORY : History of I and D of bilateral feet. ENCOUNTER: Subsequent ACUITY: 1 day PAIN SCORE: 9/10 LOCATION: whole body PROCEDURE : 1. PermaCath removal. The risks, benefits and alternatives to the procedure were explained and verbal and written consent w as obtained. The site was prepped in sterile fashion. Full sterile technique was used, including ca p, mask, sterile gloves and gown and a large sterile sheet. Hand hygiene and 2% chlorhexidine and/or betadine/alcohol prep was utilized per protocol for cutaneous antisepsis. The skin and subcutaneous tissues were infiltrated with local anesthetic solution. The tract was anesthetized with 1% Lidocaine using. The Permcath was dissected from the subcutaneous tissues and easily removed in one piece. Manual pressure was applied to the venotomy site until hem ostasis was obtained. Sterile dressing was applied. The patient tolerated the procedure well and there were no complications. CONCLUSION: Uncomplicated Permcath removal. Sylvester Estrella MD on September 25, 2016 at 11:34 Board Certified Radiologist. This report was verified electronically.
== END 2016-09-25 12:00 | DRG 854 ==
LOC: NEPE 18:34 → NEDA 22:18 → N04A 09-16 01:06
PROVIDERS: ADMIT Family Medicine; ATTEND Family Medicine
PROC: 30233N1 Transfusion of Nonautologous Red Blood Cells into Peripheral Vein, Percutaneous Approach (ICD-10-PCS; 2016-09-15)
PROC: 0DB68ZX Excision of Stomach, Via Natural or Artificial Opening Endoscopic, Diagnostic (ICD-10-PCS; 2016-09-18)
PROC: 0DJD8ZZ Inspection of Lower Intestinal Tract, Via Natural or Artificial Opening Endoscopic (ICD-10-PCS; 2016-09-18)
PROC: 0HRMXK3 Replacement of Right Foot Skin with Nonautologous Tissue Substitute, Full Thickness, External Approach (ICD-10-PCS; 2016-09-20)
PROC: 0HRNXK3 Replacement of Left Foot Skin with Nonautologous Tissue Substitute, Full Thickness, External Approach (ICD-10-PCS; 2016-09-20)
PROC: 0HBMXZZ Excision of Right Foot Skin, External Approach (ICD-10-PCS; 2016-09-20)
PROC: 0HBNXZZ Excision of Left Foot Skin, External Approach (ICD-10-PCS; principal; 2016-09-20 17:33)
PROC: 05PY33Z Removal of Infusion Device from Upper Vein, Percutaneous Approach (ICD-10-PCS; 2016-09-25)
DX: A41.9 Sepsis, unspecified organism (principal); N17.9 Acute kidney failure, unspecified; E11.22 Type 2 diabetes mellitus with diabetic chronic kidney disease; E11.42 Type 2 diabetes mellitus with diabetic polyneuropathy; D62 Acute posthemorrhagic anemia; E11.610 Type 2 diabetes mellitus with diabetic neuropathic arthropathy; N18.3 Chronic kidney disease, stage 3 (moderate); E87.1 Hypo-osmolality and hyponatremia; F20.0 Paranoid schizophrenia; L02.611 Cutaneous abscess of right foot; L03.116 Cellulitis of left lower limb; L02.612 Cutaneous abscess of left foot; Z68.42 Body mass index [BMI] 45.0-49.9, adult; E11.649 Type 2 diabetes mellitus with hypoglycemia without coma; R65.20 Severe sepsis without septic shock; E87.5 Hyperkalemia; E11.65 Type 2 diabetes mellitus with hyperglycemia; I12.9 Hypertensive chronic kidney disease with stage 1 through stage 4 chronic kidney disease, or unspecified chronic kidney disease; S80.02XA Contusion of left knee, initial encounter; S80.01XA Contusion of right knee, initial encounter; S00.81XA Abrasion of other part of head, initial encounter; E11.621 Type 2 diabetes mellitus with foot ulcer; L97.529 Non-pressure chronic ulcer of other part of left foot with unspecified severity; L97.519 Non-pressure chronic ulcer of other part of right foot with unspecified severity; R60.0 Localized edema; E11.51 Type 2 diabetes mellitus with diabetic peripheral angiopathy without gangrene; F10.20 Alcohol dependence, uncomplicated; E11.69 Type 2 diabetes mellitus with other specified complication; B95.2 Enterococcus as the cause of diseases classified elsewhere; Z16.21 Resistance to vancomycin; E66.01 Morbid (severe) obesity due to excess calories; D63.8 Anemia in other chronic diseases classified elsewhere; K29.70 Gastritis, unspecified, without bleeding; W19.XXXA Unspecified fall, initial encounter; Z91.14 Patient's other noncompliance with medication regimen; Z91.19 Patient's noncompliance with other medical treatment and regimen; Z87.891 Personal history of nicotine dependence; Z88.8 Allergy status to other drugs, medicaments and biological substances; Z79.4 Long term (current) use of insulin; Z88.1 Allergy status to other antibiotic agents
CPT/HCPCS: 36430; 36589; 70450; 71101; 73560; 78806; 78807; 78999; 80048; 80307; 82948; 85014; 85018; 85025; 86850; 86900; 86901; 86920; 87015; 87070; 87077; 87102; 87116; 87186; 87205; 87206; 88305; 88312; 96365; 96367; 96375; A9569; C9113; J0295; J0696; J0878; J1642; J1815; J1940; J2060; J2270; J2405; J3010; J7040; J7042; J7050; L2114; P9016; Q4101

== ENCOUNTER 2016-09-29 15:01 | Observation (INO) | payer MEDICARE, MEDICAID ==
[~2016-09-29] VITALS: Ht 177.8 cm; Wt 105.0 kg
[~2016-09-29 15:01] MED LIST changes: -AMLO10 PO; -CEFT2INJ2 IV; -EPIN1INJ21 IV PUSH; -EPIN1INJ21 SQ; +FURO1TAB60 PO; +GLIP5TAB8 PO; +HYDR-3516 PO; -HYDR-3535 PO; -IBUP400T20 PO; -SOLU250I IV PUSH; -UNAS3INJ IV; -ZOFR4TAB3 SL
[2016-09-29 15:19] VITALS: BP_SYST 140; BP_SYST 152; BP_DIAS 66; BP_DIAS 78; PULSE 93; RESP 20; TEMP 98.1; O2SAT 99
--- NOTE | 2016-09-29 15:54 | RADRPT ---
EXAM DATE/TIME: 09/29/2016 15:26 [facility] COMPARISON: CHEST SINGLE AP, August 21, 2016, 3:26. INDICATIONS : Chest Pain, Short of Breath. MEDICAL HISTORY : Diabetes mellitus type 2. Hypertension. Schizophrenia. SURGICAL HISTORY : Bilateral feet surgeries. ENCOUNTER: Initial ACUITY: 1 day PAIN SCORE: 4/10 LOCATION: Bilateral chest FINDINGS: A single view of the chest demonstrates the lungs to be symmetrically aerated without evidence of mas s, infiltrate or effusion. The cardiomediastinal contours are unremarkable. Osseous structures are intact. CONCLUSION: No acute disease. Afshin Yanes MD FACR on September 29, 2016 at 15:53 Board Certified Radiologist. This report was verified electronically.
[2016-09-29 16:06] LABS: AUTOMATED NEUTROPHIL # 9.3 TH/MM3 (1.8-7.7); BASOPHIL # 0.1 TH/MM3 (0-0.2); BASOPHIL % 0.7 % (0.0-2.0); EOSINOPHIL # 0.2 TH/MM3 (0-0.4); EOSINOPHIL % 1.7 % (0.0-4.0); HEMATOCRIT 30.7 % (39.0-51.0); HEMO FLAGS DIFF FINAL; LYMPH % 15.9 % (9.0-44.0); MEAN CELL VOLUME 80.5 FL (80.0-100.0); MEAN CORPUSCULAR HEMOGLOBIN 27.8 PG (27.0-34.0); MEAN CORPUSCULAR HGB CONC 34.5 % (32.0-36.0); MONO % 8.1 % (0.0-8.0); NEUT % 73.6 % (16.0-70.0); PLATELET COUNT 359 TH/MM3 (150-450); RED BLOOD COUNT 3.81 MIL/MM3 (4.50-5.90); RED CELL DISTRIBUTION WIDTH 16.6 % (11.6-17.2); WHITE BLOOD COUNT 12.6 TH/MM3 (4.0-11.0)
[2016-09-29 16:09] LABS: BLOOD, URINE NEG (NEG); COMMENT (UR) CULT NOT INDICATED; CULTURE IF INDICATED CULT NOT INDICATED; GLUCOSE,URINE NEG (NEG); KETONE, URINE NEG (NEG); NITRITE,URINE NEG (NEG); PH, URINE 6.5 (5.0-8.5); SQUAMOUS EPITHELIAL CELL URINE <1 /hpf (0-5); URINE COLOR LIGHT-YELLOW (YELLW/STRAW)
[2016-09-29 16:20] LABS: APTT (PATIENT) 29.3 SEC (24.3-30.1); PROTHROMBIN TIME - PATIENT 11.3 SEC (9.8-11.6)
[2016-09-29 16:42] LABS: ALKALINE PHOSPHATASE 351 U/L (45-117); ALT (GPT) 14 U/L (12-78); ANION GAP 12 MEQ/L (5-15); AST (GOT) 20 U/L (15-37); BICARBONATE 23.7 MEQ/L (21.0-32.0); BLOOD UREA NITROGEN 18 MG/DL (7-18); CHLORIDE 85 MEQ/L (98-107); GLOMERULAR FILTRATION RATE 42 ML/MIN (>89); TOTAL BILIRUBIN ADULT 0.4 MG/DL (0.2-1.0)
[2016-09-29 17:04] LABS: CREATINE KINASE 73 U/L (39-308); POTASSIUM 4.4 MEQ/L (3.5-5.1)
[2016-09-29 17:06] LABS: SODIUM (NA) 121 MEQ/L (136-145)
[2016-09-29 17:24] VITALS: BP 149/67; PULSE 88; RESP 20; O2SAT 98
--- NOTE | 2016-09-29 17:37 | PD ---
HPI Chief Complaint: Complaint Time Seen by Provider: 17:22 Travel History International Travel<30 days: No Contact w/Intl Traveler<30days: No Traveled to known affect area: No History of Present Illness HPI 56-year-old male that presents to the ED for evaluation of possible UTI. Patient came here by ambulance for this. Patient was recently discharged on the for infection to both feet. Patient had surgery by Dr. Crowe for the infection and put on wound care. Patient was put on heavy antibiotics. 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 Patient apparently has a chronic history of noncompliance and from the medical records that I obtained from his last visit Dr. Rod himself mentioned that they try to keep them outpatient with IV antibiotics outpatient but he apparently was noncompliant. Per patient since he was discharged she went to rehabilitation facility and he states that there doing nothing for him. Per patient he doesn't really know whether given him. He states that he's been complaining of the urinary symptoms for the past week. Per patient he feels like he has to go. Per patient has polydipsia. Per patient he has pressure on his lower abdomen. Rectal pain as well. He denies any diarrhea. He also states that he feels weak and he has some chest discomfort. Per medical records he had similar complaints before. He does have a significant history of severe hyponatremia. He has a history of schizophrenia as well. Per patient's his pain on the lower abdomen is 5 out of 10. Per patient his been does move to the testicles as well. He denies any trauma or deformity. No injury. Patient states that he is compliant with the wound care changes at the rehabilitation facility but again he states that "there doing nothing for him ". Patient did calm with records from the rehabilitation facility but I cannot attest whether anything has been given to the patient her any medication list from the rehabilitation facility. PFSH Past Medical History Hx Anticoagulant Therapy: Yes Arthritis: No Asthma: No Autoimmune Disease: No Blood Disorders: No Anxiety: Yes Depression: Yes Heart Rhythm Problems: No Cancer: No Cardiovascular Problems: Yes High Cholesterol: No Chemotherapy: No Chest Pain: No Congestive Heart Failure: No COPD: No Cerebrovascular Accident: No Diabetes: Yes Patient Takes Glucophage: No Diminished Hearing: No Endocrine: No GERD: No Glaucoma: No Genitourinary: No Headaches: No Hepatitis: No Hiatal Hernia: No Hypertension: Yes Immune Disorder: No Kidney Stones: No Musculoskeletal: No Neurologic: No Psychiatric: Yes (schizoprenia controlled ) Reproductive: No Respiratory: No Migraines: No Myocardial Infarction: No Radiation Therapy: No Renal Failure: No Schizophrenia: Yes Seizures: No Sickle Cell Disease: No Sleep Apnea: No Thyroid Disease: No Ulcer: No Tetanus Vaccination: < 5 Years Influenza Vaccination: Yes Past Surgical History Abdominal Surgery: No AICD: No Appendectomy: No Arteriovenous Shunt: No Cardiac Surgery: No Cholecystectomy: No Ear Surgery: No Endocrine Surgery: No Eye Surgery: No Genitourinary Surgery: No Gynecologic Surgery: No Insulin Pump: No Joint Replacement: No Oral Surgery: No Pacemaker: No Thoracic Surgery: No Other Surgery: Yes (R FOOT ) Social History Alcohol Use: No (PT DENIES) Tobacco Use: No Substance Use: No Allergies-Medications (Allergen,Severity, Reaction): Coded Allergies: Haldol (Verified Allergy, Severe, BLINDNESS, 09/29/16) Vancomycin (Verified Allergy, Severe, 09/29/16) Levaquin (Verified Allergy, Intermediate, Cramping, 09/29/16) Prolixin (Verified Allergy, Unknown, "PAR[facility]INSONIAN [employer]ACKS", 09/29/16) *MDRO Multi-Drug Resistant Organism (Verified Adverse Reaction, Unknown, VRE, 09/29/16) 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 Reported Meds & Prescriptions Reported Meds & Active Scripts Active Lasix (Furosemide) 40 Mg Tab 40 Mg PO DAILY Ativan (Lorazepam) 0.5 Mg Tab 0.5 Mg PO Q8H PRN Hydrocodone-Acetaminophen 5-325 mg Tab 1 Tab PO Q4H PRN Novolog Inj (Insulin Aspart) 100 Unit/Ml Inj 1 Units SQ ACHS SLIDING SCALE 90 Days Reported Glipizide 5 Mg Tab 5 Mg PO BIDAC Take 30 minutes before a meal Lisinopril 10 Mg Tab 10 Mg PO DAILY Neurontin (Gabapentin) 400 Mg Cap 400 Mg PO TID Aspirin 81 (Aspirin) 81 Mg Tabdr 81 Mg PO DAILY Thioridazine (Thioridazine HCl) 100 Mg Tab 200 Mg PO DAILY Review of Systems Except as stated in HPI: all other systems reviewed are Neg Physical Exam Narrative GENERAL: SKIN: Warm and dry. HEAD: Atraumatic. Normocephalic. EYES: Pupils equal and round. No scleral icterus. No injection or drainage. ENT: No nasal bleeding or discharge. Mucous membranes pink and moist. Tongue is midline. No uvula deviation. NECK: Trachea midline. No JVD. CARDIOVASCULAR: Regular rate and rhythm. No murmurs, S3, S4. RESPIRATORY: No accessory muscle use. Clear to auscultation. Breath sounds equal bilaterally. GASTROINTESTINAL: Abdomen soft, tender to palpation on the lower abdomen. Patient does have a umbilical hernia noted, nondistended. Hepatic and splenic margins not palpable. Rectal exam was done and I was able to find what appears to be a very small hemorrhoid on the 6:00 area of the rectum. Slightly tender to touch. Hemoccult was done and was positive. Testicles are nontender with no sign of mass or deformity. MUSCULOSKELETAL: Extremities without clubbing, cyanosis, or edema. No obvious deformities. Full range of motion of the upper and lower extremities bilaterally. Patient does have surgical wounds to the plantar aspect of both feet bilaterally. Patient has boots on both feet bilaterally. Pupils pulses bilaterally. Patient does have 1+ pitting edema on both lower extremities. Erythema noted as well but per patient seems to be improving. NEUROLOGICAL: Awake and alert. No obvious cranial nerve deficits. Motor grossly within normal limits. Five out of 5 muscle strength in the arms and legs. Normal speech. PSYCHIATRIC: Appropriate mood and affect; insight and judgment normal. Data Data Last Documented VS Vital Signs Date Time Temp Pulse Resp B/P Pulse Ox O2 Delivery O2 Flow Rate FiO2 09/29/16 17:24 88 20 149/67 98 Room Air 09/29/16 15:19 98.1 Orders Electrocardiogram (09/29/16 15:24) Complete Blood Count With Diff (09/29/16 15:24) Comprehensive Metabolic Panel (09/29/16 15:24) Ckmb (Isoenzyme) Profile (09/29/16 15:24) Troponin I (09/29/16 15:24) Prothrombin Time / Inr (Pt) (09/29/16 15:24) Act Partial Throm Time (Ptt) (09/29/16 15:24) Blood Culture (09/29/16 15:24) Lipase (09/29/16 15:24) Urinalysis - C+S If Indicated (09/29/16 15:24) Chest, Single Ap (09/29/16 15:24) Iv Access Insert/Monitor (09/29/16 15:24) Lactic Acid (09/29/16 15:24) Ct Abd/Pel W Iv Contrast(Rout) (09/29/16 ) Us Testicles W Doppler (09/29/16 ) Osmolality, Urine (09/29/16 17:20) Osmolality,Serum (09/29/16 17:20) Admit Order (Ed Use Only) (09/29/16 17:39) Labs Laboratory Tests Test 09/29/16 09/29/16 15:40 15:55 White Blood Count 12.6 TH/MM3 Red Blood Count 3.81 MIL/MM3 Hemoglobin 10.6 GM/DL Hematocrit 30.7 % Mean Corpuscular Volume 80.5 FL Mean Corpuscular Hemoglobin 27.8 PG Mean Corpuscular Hemoglobin 34.5 % Concent Red Cell Distribution Width 16.6 % Platelet Count 359 TH/MM3 Mean Platelet Volume 8.0 FL Neutrophils (%) (Auto) 73.6 % Lymphocytes (%) (Auto) 15.9 % Monocytes (%) (Auto) 8.1 % Eosinophils (%) (Auto) 1.7 % Basophils (%) (Auto) 0.7 % Neutrophils # (Auto) 9.3 TH/MM3 Lymphocytes # (Auto) 2.0 TH/MM3 Monocytes # (Auto) 1.0 TH/MM3 Eosinophils # (Auto) 0.2 TH/MM3 Basophils # (Auto) 0.1 TH/MM3 CBC Comment DIFF FINAL Differential Comment Prothrombin Time 11.3 SEC Prothromb Time International 1.0 RATIO Ratio Activated Partial 29.3 SEC Thromboplast Time Sodium Level 121 MEQ/L Potassium Level 4.4 MEQ/L Chloride Level 85 MEQ/L Carbon Dioxide Level 23.7 MEQ/L Anion Gap 12 MEQ/L Blood Urea Nitrogen 18 MG/DL Creatinine 1.72 MG/DL Estimat Glomerular Filtration 42 ML/MIN Rate Random Glucose 135 MG/DL Calcium Level 9.0 MG/DL Total Bilirubin 0.4 MG/DL Aspartate Amino Transf 20 U/L (AST/SGOT) Alanine Aminotransferase 14 U/L (ALT/SGPT) Alkaline Phosphatase 351 U/L Total Creatine Kinase 73 U/L Troponin I LESS THAN 0.02 NG/ML Total Protein 8.7 GM/DL Albumin 2.8 GM/DL Lipase 92 U/L Urine Color LIGHT-YELLOW Urine Turbidity CLEAR Urine pH 6.5 Urine Specific [place] 1.005 Urine Protein 100 mg/dL Urine Glucose (UA) NEG mg/dL Urine Ketones NEG mg/dL Urine Occult Blood NEG Urine Nitrite NEG Urine Bilirubin NEG Urine Urobilinogen LESS THAN 2.0 MG/DL Urine Leukocyte Esterase NEG Urine RBC 2 /hpf Urine WBC 1 /hpf Urine Squamous Epithelial <1 /hpf Cells Microscopic Urinalysis Comment CULT NOT INDICATED Lactic Acid Level 1.1 mmol/L MDM Medical Decision Making Medical Screen Exam Complete: Yes Emergency Medical Condition: Yes Medical Record Reviewed: Yes Interpretation(s) CBC & BMP Diagram 09/29/16 15:40 lipase WNL LFTs and lipase WNL UA negative EKG shows sinus rhythm with sinus arrhythmia but no sign of acute ischemia read by me and attending. Troponin negative Lipase within normal limits. Chest x-ray shows signs of acute disease. Differential Diagnosis Cellulitis versus hyponatremia versus acute abdomen versus COPD versus diabetes versus sepsis versus infection versus schizophrenia Narrative Course 56-year-old male that presents to the ED for evaluation of possible UTI. Patient was properly examined and was found to have signs and symptoms of unclear etiology. Possible UTI. Labs and imaging were done. Labs and imaging did not show any sign of UTI but did show a hyponatremia 121. Patient does have an elevated levels account that is higher from his last time he was here on the eighth. Patient does have some swelling noted on both lower extremities but does appear to be chronic and I do not believe this is a new infection. I do recommend doing scanning of the abdomen to rule out any sign of infection as patient does complain of lower abdominal pain and there is no source of the pain at this time. Patient is agreeable with this. Patient also complaining of testicular pain but no obvious deformity on exam. Recommendation is for ultrasound of this. Patient did have a rectal exam that was positive hemocult, no active bleeding, do not think this is related to the hemorrhoid. Case was discussed in my attending who recommends admission to medicine. Patient goes to see Dr. Rod. Case discussed with Dr. Rod who agrees to admission. Procedures EKG Prior to Arrival: No HemaPrompt Point of Care Internal Pos. & Neg. Controls: Passed Fecal Specimen Occult Blood: Positive Sepsis Criteria SIRS Criteria (2 or more): Heart rate over 90, WBC > 29045, < 4000 or > 10% bands Sepsis Criteria (SIRS+source): Infect source susp/known Criteria Outcome: Meets sepsis criteria Diagnosis Primary Impression: Hyponatremia Additional Impressions: Cellulitis of left foot Sepsis Qualified Code: A41.9 - Sepsis, due to unspecified organism GI bleed Qualified Code: K92.2 - Gastrointestinal hemorrhage, unspecified gastrointestinal hemorrhage type Admitting Information Admitting Physician Requests: Admit Alexandr Caputo Sep 29, 2016 17:36
[2016-09-29] MEDS ORDERED: ONDANSETRON HCL 4 MG/2 ML VIAL IVP PRN (18:00)
[2016-09-29] MEDS ORDERED: ZOLPIDEM TARTRATE 5 MG TAB PO PRN (18:00)
[2016-09-29] MEDS ORDERED: SODIUM CHLORIDE 0.9% FLUSH 5 ML FLUSH FLUSH PRN (18:00)
[2016-09-29] MEDS ORDERED: NALOXONE HCL 0.4 MG/ML AMP IV PRN (18:00)
[2016-09-29] MEDS ORDERED: BISACODYL 10 MG SUPP PR PRN (18:00)
[2016-09-29] MEDS ORDERED: ACETAMINOPHEN 325 MG TAB PO PRN (18:00)
[2016-09-29] MEDS ORDERED: cloNIDine HCL 0.1 MG TAB PO PRN (18:00)
[2016-09-29] MEDS ORDERED: MAGNESIUM HYDROXIDE SUSP 30 ML CUP PO PRN (18:00)
[2016-09-29] MEDS ORDERED: IODIXANOL 320 MG/ML 10 ML VIAL (for Rad CT) IV ONE (18:06)
--- NOTE | 2016-09-29 18:26 | RADRPT ---
EXAM DATE/TIME: 09/29/2016 17:39 [facility] COMPARISON: No previous studies available for comparison. INDICATIONS : Abdomen pain. IV CONTRAST: 50 cc Omnipaque 350 (iohexol) IV ORAL CONTRAST: No oral contrast ingested. RADIATION DOSE: 13.27 CTDIvol (mGy) MEDICAL HISTORY : Renal failure, chronic. Hypertension. Diabetes. SURGICAL HISTORY : None. ENCOUNTER: Initial ACUITY: 1 day PAIN SCALE: 5/10 LOCATION: Bilateral abdomen. TECHNIQUE: Volumetric scanning of the abdomen and pelvis was performed. Using automated exposure control and ad justment of the mA and/or kV according to patient size, radiation dose was kept as low as reasonably achievable to obtain optimal diagnostic quality images. FINDINGS: The lung bases are clear. There is a small pericardial effusion evident. Liver is free of focal defe cts. Spleen, pancreas and adrenal glands are unremarkable. Gallbladder is small and contracted with a thickened wall. Cholecystitis cannot be excluded by this noncontrast CT. I don't see any gallsto daniele. The kidneys are somewhat small. There is no ascites. There is a midline abdominal hernia containing only fat. The bladder, prostate and seminal vesicles are unremarkable. There is no ascites or adenopathy. Moderate vascular calcifications are evident consistent with the history of renal failure. Degenerat derrick changes are seen in the lumbar spine. CONCLUSION: 1. Pericardial effusion. 2. Small gallbladder with thickened gallbladder wall. 3. Midline abdominal hernia containing only fat. 4. Extensive vascular calcifications. Afshin Yanes MD FACR on September 29, 2016 at 18:05 Board Certified Radiologist. This report was verified electronically.
[2016-09-29] MEDS ORDERED: DEXTROSE 50% IN WATER 50 ML VIAL(D50) IV PUSH PRN (18:45)
[2016-09-29] MEDS ORDERED: GLUCAGON 1 MG/ML VIAL OTHER PRN (18:45)
--- NOTE | 2016-09-29 19:22 | RADRPT ---
EXAM DATE/TIME: 09/29/2016 18:37 [facility] COMPARISON: No previous studies available for comparison. INDICATIONS : Testicular pain. MEDICAL HISTORY : Hypertension. Anticoagulant therapy. Renal disease. Diabetes. VRE. Schizophrenia. SURGICAL HISTORY : Right foot surgery. Left foot ulcer debridement. ENCOUNTER: Initial ACUITY: 1 week PAIN SCORE: 5/10 LOCATION: Bilateral Scrotum. MEASUREMENTS: RIGHT TESTICLE: 3.2 x 2.8 x 2.2cm LEFT TESTICLE: 1.6 x 1.3 x 1.0cm FINDINGS: RIGHT TESTICLE: Homogeneous echotexture without intra or extratesticular mass. Blood flow is symmetric and within no rmal limits. No hydrocele or varicocele multiple epididymal cysts are noted. LEFT TESTICLE: Left testicle is small. Homogeneous echotexture without intra or extratesticular mass. Blood flow i s symmetric and within normal limits. Epididymis with increased blood flow. SCROTUM: Within normal limits. CONCLUSION: Hyperemic prominent epididymis on the left and could be inflammatory. Small left testicle. There is no torsion or mass. Afshin Yanes MD FACR on September 29, 2016 at 19:18 Board Certified Radiologist. This report was verified electronically.
[2016-09-29 19:36] VITALS: BP 122/58; PULSE 95; RESP 16; O2SAT 96
[2016-09-29] MEDS: HEPARIN SODIUM - SQ 10,000 UNITS/ML VIAL SQ SCH (19:37)
[2016-09-29] MEDS: PIPERACIL-TAZO 3.375 GM PREMIX 50 ML IV SCH ×2 (19:37→23:44)
[2016-09-29] MEDS: SODIUM CHLOR 0.9% 1000 ML INJ 1,000 ML IV SCH (19:37)
[2016-09-29] MEDS: GABAPENTIN 400 MG CAP PO SCH (19:37)
[2016-09-29] MEDS: PANTOPRAZOLE SODIUM 40 MG VIAL IV PUSH SCH (19:38)
[2016-09-29] MEDS: ACETAMINOPHEN/HYDROcodone 325 MG/5 MG TAB PO PRN (19:50)
[2016-09-29] MEDS: MEDIUM DOSE INSULIN NOVOLOG SUPPLEMENTAL SCALE SQ SCH (21:00)
[2016-09-29] MEDS: SODIUM CHLORIDE 0.9% FLUSH 5 ML FLUSH FLUSH SCH (21:00)
[2016-09-29] MEDS ORDERED: INSULIN ASPART SUPPLEMENTAL SCALE SQ SCH (21:00)
[2016-09-29 22:37] VITALS: BP 145/69; PULSE 99; RESP 20; TEMP 98.5; O2SAT 99
[2016-09-29 23:11] VITALS: BP 158/69; PULSE 93; RESP 18; TEMP 97.8; O2SAT 99
[2016-09-29] MEDS: LORazepam 0.5 MG TAB PO PRN (23:44)
[2016-09-29] MEDS: MORPHINE SULFATE 8 MG/ML INJ IV PUSH PRN (23:44)
[2016-09-30 04:23] VITALS: BP 156/78; PULSE 76; RESP 18; TEMP 97.8; O2SAT 98
[2016-09-30] MEDS: MEDIUM DOSE INSULIN NOVOLOG SUPPLEMENTAL SCALE SQ SCH ×4 (05:57→20:49)
[2016-09-30] MEDS: PIPERACIL-TAZO 3.375 GM PREMIX 50 ML IV SCH ×3 (06:00→18:44)
[2016-09-30] MEDS: HEPARIN SODIUM - SQ 10,000 UNITS/ML VIAL SQ SCH ×2 (06:00→17:56)
[2016-09-30 06:31] LABS: AUTOMATED NEUTROPHIL # 7.6 TH/MM3 (1.8-7.7); BASOPHIL # 0.1 TH/MM3 (0-0.2); BASOPHIL % 0.8 % (0.0-2.0); EOSINOPHIL # 0.3 TH/MM3 (0-0.4); EOSINOPHIL % 2.7 % (0.0-4.0); HEMATOCRIT 27.5 % (39.0-51.0); HEMO FLAGS DIFF FINAL; LYMPH % 17.8 % (9.0-44.0); MEAN CORPUSCULAR HEMOGLOBIN 27.7 PG (27.0-34.0); MEAN CORPUSCULAR HGB CONC 33.9 % (32.0-36.0); MONO % 10.9 % (0.0-8.0); NEUT % 67.8 % (16.0-70.0); PLATELET COUNT 326 TH/MM3 (150-450); RED BLOOD COUNT 3.35 MIL/MM3 (4.50-5.90); RED CELL DISTRIBUTION WIDTH 16.4 % (11.6-17.2); WHITE BLOOD COUNT 11.2 TH/MM3 (4.0-11.0)
[2016-09-30] MEDS: glipiZIDE 5 MG TAB PO SCH ×2 (06:43→17:57)
[2016-09-30 06:49] LABS: BICARBONATE 24.6 MEQ/L (21.0-32.0); POTASSIUM 3.9 MEQ/L (3.5-5.1)
[2016-09-30 07:37] VITALS: BP 141/67; PULSE 74; RESP 18; TEMP 98.7; O2SAT 97
--- NOTE | 2016-09-30 09:28 | HHI.HP ---
History of Present Illness Primary Care Physician Jack Rod MD Admission Diagnosis hyponatremia, sepsis, lower leg infection, + hemocult Diagnoses: History of Present Illness 56 y CM. RECENT DC TO SNF S/P I AND D OF FEET, RETURNS WITH ABDOMINAL PAIN. PT C /O ABDOM PAIN, EDEMA AND BILAT FEET PAIN. PT LETHARGIC AND DECLINING, I SPOKE WITH THE ATTENDING OF THE PT AT THE SNF AND REPORTS PT HAS BEEN STABLE YET PT PRESENTED TO THE ER AFTER I SPOKE WITH HIM FOR THE ABOVE COMPLAINTS. PT IS POOR HISTORIAN. APPEARS ILL. I WAS CALLED BY THE ER PA FOR ADMIT. PT SEEN IN ER. Sepsis Criteria SIRS Criteria (2 or more): Heart rate over 90, WBC > 83617, < 4000 or > 10% bands Sepsis Criteria (SIRS+source): Infect source susp/known Severe Sepsis (+one): Organ Dysfunction Multiple Organ Dysfunction Syn: Evidence -2 organs failing Criteria Outcome: Meets severe sepsis criteria Review of Systems ROS Limitations: Clinical Condition, Uncooperative, Poor Historian Other NEGATIVE FOURTEEN POINT ROS EXCEPT ABOVE Past Family Social History Allergies: Coded Allergies: Haldol (Verified Allergy, Severe, BLINDNESS, 09/29/16) Vancomycin (Verified Allergy, Severe, 09/29/16) Levaquin (Verified Allergy, Intermediate, Cramping, 09/29/16) Prolixin (Verified Allergy, Unknown, "PARKINSONIAN SHACKS", 09/29/16) *MDRO Multi-Drug Resistant Organism (Verified Adverse Reaction, Unknown, VRE, 09/29/16) 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 Past Medical History CHARCOT DM HTN SEE BELOW Past Surgical History FEET I AND D Reported Medications Current Medications Medications (Trade) Dose Ordered Sig/Portia Route Start Time Stop Time Status Last Admin (Ecotrin Ec) 81 mg DAILY PO 09/30/16 09:00 (Lasix) 40 mg DAILY PO 09/30/16 09:00 (Neurontin) 400 mg TID PO 09/29/16 18:00 09/29/16 19:37 (Glucotrol) 5 mg BIDAC PO 09/30/16 07:00 ([place] 5-325 Mg) 1 tab Q4H PRN PO 09/29/16 17:45 09/29/16 19:50 (Prinivil) 10 mg DAILY PO 09/30/16 09:00 (Ativan) 0.5 mg Q8H PRN PO 09/29/16 17:45 09/29/16 23:44 Thioridazine HCl 200 mg 200 mg DAILY PO 09/30/16 09:00 (NS 1000 ml Inj) 1,000 ml @ 20 mls/hr Q24H IV 09/29/16 17:49 09/29/16 19:37 (NS Flush) 2 ml UNSCH PRN FLUSH 09/29/16 18:00 (NS Flush) 2 ml BID FLUSH 09/29/16 21:00 09/29/16 21:00 (Tylenol) 650 mg Q4H PRN PO 09/29/16 18:00 (Zofran Inj) 4 mg Q6H PRN IVP 09/29/16 18:00 (Dulcolax Supp) 10 mg DAILY PRN [place] 09/29/16 18:00 (Milk Of Magnesia Liq) 30 ml Q12H PRN PO 09/29/16 18:00 (Ambien) 5 mg HS PRN PO 09/29/16 18:00 (Heparin Inj) 5,000 units Q12H SQ 09/29/16 18:00 09/30/16 06:00 (Narcan Inj) 0.4 mg UNSCH PRN IV 09/29/16 18:00 (Catapres) 0.1 mg Q6H PRN PO 09/29/16 18:00 (Morphine Inj) 5 mg Q4H PRN IV PUSH 09/29/16 18:00 09/29/16 23:44 Pantoprazole Sodium 40 mg 40 mg Q24H IV PUSH 09/29/16 20:00 09/29/16 19:38 (Zosyn 3.375 Gm Premix) 50 ml @ 100 mls/hr Q6H IV 09/29/16 18:00 09/30/16 06:00 (D50w (Vial) Inj) 25 ml UNSCH PRN IV PUSH 09/29/16 18:45 (Glucagon Inj) 1 mg UNSCH PRN OTHER 09/29/16 18:45 Family History NC Social History REPS NO E/T/D; DISABLED PSYCH Physical Exam Vital Signs Vital Signs Date Time Temp Pulse Resp B/P Pulse Ox O2 Delivery O2 Flow Rate FiO2 09/30/16 07:37 98.7 74 18 141/67 97 09/30/16 04:23 97.8 76 18 156/78 98 09/29/16 23:49 18 09/29/16 23:11 97.8 93 18 158/69 99 09/29/16 22:37 98.5 99 20 145/69 99 Room Air 09/29/16 21:20 18 09/29/16 19:36 95 16 122/58 96 Room Air 09/29/16 17:24 88 20 149/67 98 Room Air 09/29/16 15:26 92 18 09/29/16 15:19 98.1 93 20 152/66 99 Physical Exam GENERAL: This is a chronically ill appearing, desheveled SKIN: No rashes, ecchymoses or lesions. Cool and dry. HEAD: Atraumatic. Normocephalic. No temporal or scalp tenderness. EYES: Pupils equal round and reactive. Extraocular motions intact. No scleral icterus. No injection or drainage. ENT: Nose without bleeding, purulent drainage or septal hematoma. Throat without erythema, tonsillar hypertrophy or exudate. Uvula midline. Airway patent. NECK: Trachea midline. No JVD or lymphadenopathy. Supple, nontender, no meningeal signs. CARDIOVASCULAR: Regular rate and rhythm without murmurs, gallops, or rubs. RESPIRATORY: Clear to auscultation. Breath sounds equal bilaterally. No wheezes , rales, or rhonchi. GASTROINTESTINAL: Abdomen soft, non-tender, nondistended. No hepato-splenomegaly , or palpable masses. No guarding. MUSCULOSKELETAL: bilat charcot feet with open area, post op i and d site cdi. No calf tenderness. Negative Homans sign bilaterally. NEUROLOGICAL: Awake and alert. Cranial nerves II through XII intact. Motor and sensory grossly within normal limits. 2 out of 5 muscle strength in all muscle groups. Normal speech. Laboratory Laboratory Tests Test 09/29/16 09/29/16 09/29/16 09/30/16 15:40 15:55 17:20 05:46 White Blood Count 12.6 11.2 Red Blood Count 3.81 3.35 Hemoglobin 10.6 9.3 Hematocrit 30.7 27.5 Mean Corpuscular Volume 80.5 82.0 Mean Corpuscular Hemoglobin 27.8 27.7 Mean Corpuscular Hemoglobin 34.5 33.9 Concent Red Cell Distribution Width 16.6 16.4 Platelet Count 359 326 Mean Platelet Volume 8.0 8.0 Neutrophils (%) (Auto) 73.6 67.8 Lymphocytes (%) (Auto) 15.9 17.8 Monocytes (%) (Auto) 8.1 10.9 Eosinophils (%) (Auto) 1.7 2.7 Basophils (%) (Auto) 0.7 0.8 Neutrophils # (Auto) 9.3 7.6 Lymphocytes # (Auto) 2.0 2.0 Monocytes # (Auto) 1.0 1.2 Eosinophils # (Auto) 0.2 0.3 Basophils # (Auto) 0.1 0.1 CBC Comment DIFF FINAL DIFF FINAL Differential Comment Prothrombin Time 11.3 Prothromb Time International 1.0 Ratio Activated Partial 29.3 Thromboplast Time Sodium Level 121 128 Potassium Level 4.4 3.9 Chloride Level 85 93 Carbon Dioxide Level 23.7 24.6 Anion Gap 12 10 Blood Urea Nitrogen 18 19 Creatinine 1.72 1.80 Estimat Glomerular Filtration 42 40 Rate Random Glucose 135 66 Calcium Level 9.0 8.9 Total Bilirubin 0.4 Aspartate Amino Transf 20 (AST/SGOT) Alanine Aminotransferase 14 (ALT/SGPT) Alkaline Phosphatase 351 Total Creatine Kinase 73 Troponin I LESS THAN 0.02 Total Protein 8.7 Albumin 2.8 Lipase 92 Urine Color LIGHT-YELLOW Urine Turbidity CLEAR Urine pH 6.5 Urine Specific [place] 1.005 Urine Protein 100 Urine Glucose (UA) NEG Urine Ketones NEG Urine Occult Blood NEG Urine Nitrite NEG Urine Bilirubin NEG Urine Urobilinogen LESS THAN 2.0 Urine Leukocyte Esterase NEG Urine RBC 2 Urine WBC 1 Urine Squamous Epithelial <1 Cells Microscopic Urinalysis Comment CULT NOT INDICATED Lactic Acid Level 1.1 Urine Osmolality 149 Serum Osmolality 264 Date/Time Procedure Status Source Growth 09/29/16 15:55 Aerobic Blood Culture Received Blood Peripheral Pending 09/29/16 15:55 Anaerobic Blood Culture Received Blood Peripheral Pending Result Diagram: 09/30/16 0546 09/30/1646 Assessment and Plan Problem List: (1) Acute renal failure Status: Acute (2) Anemia Status: Acute (3) Peripheral neuropathy Status: Acute (4) Renal insufficiency Status: Acute (5) Schizophrenia Status: Chronic (6) Hypertension Status: Chronic (7) Obesity Status: Chronic (8) ETOH abuse Status: Chronic (9) DM (diabetes mellitus) Status: Chronic (10) CKD (chronic kidney disease) stage 3, GFR 30-59 ml/min Status: Acute (11) Osteomyelitis of ankle or foot Status: Acute (12) Abscess of right foot Status: Acute (13) Charcot foot due to diabetes mellitus Status: Chronic (14) Noncompliance Status: Acute (15) Type 2 diabetes mellitus with foot ulcer Status: Chronic (16) Impaired mobility and activities of daily living Status: Acute (17) Other specified diabetes mellitus with diabetic peripheral angiopathy without gangrene Status: Chronic (18) Morbid obesity with BMI of 45.0-49.9, adult Status: Chronic (19) 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 OBS ADMIT Problem Qualifiers (1) Sepsis: Qualified Code: A41.9 - Sepsis, due to unspecified organism (2) GI bleed: Qualified Code: K92.2 - Gastrointestinal hemorrhage, unspecified gastrointestinal hemorrhage type Jack Rod MD Sep 30, 2016 09:28
[2016-09-30] MEDS: SODIUM CHLORIDE 0.9% FLUSH 5 ML FLUSH FLUSH SCH ×2 (10:11→21:00)
[2016-09-30] MEDS: LISINOPRIL 10 MG TAB PO SCH (10:12)
[2016-09-30] MEDS: GABAPENTIN 400 MG CAP PO SCH ×3 (10:12→17:57)
[2016-09-30] MEDS: ACETAMINOPHEN/HYDROcodone 325 MG/5 MG TAB PO PRN ×2 (10:12→17:57)
[2016-09-30] MEDS: ASPIRIN EC 81 MG TABEC PO SCH (10:12)
[2016-09-30] MEDS: FUROSEMIDE 40 MG TAB PO SCH (10:12)
[2016-09-30] MEDS: THIORIDAZINE HCL 100 MG PO SCH (10:13)
[2016-09-30] MEDS: COLLAGENASE OINT 30 GM TUBE TOP SCH (10:30)
[2016-09-30 12:00] VITALS: BP 162/74; PULSE 84; RESP 20; TEMP 97.9; O2SAT 98
--- NOTE | 2016-09-30 13:00 | MB ---
cc: CECY SIMMONS DATE OF CONSULTATION: 09/30/2016 REASON FOR CONSULTATION: Bilateral foot ulcerations. HISTORY OF PRESENT ILLNESS Mr. Yanes is a 56-year-old male patient well-known to my group and to myself. In February of 2016, he was admitted to [facility] for foot ulcerations which his father had been tending to for several years which was badly infected. He got a course of IV antibiotics but ultimately wanted to [facility] so that he could have hyperbaric oxygen treatment and that was until late August when he was admitted for these infections. A consultation was done by Dr. Pelaez and ultimately a debridement and wound graft was done by Dr. Boone approximately 3 weeks ago. The patient was seen in my office on Saturday with no signs of infection but yesterday he was admitted for "concerns" about the feet, possible lower leg infection and abdominal pain. The patient states that he does not think that the nurses at the [facility] have enough time to tend to him and he needs to be somewhere where there are more nurses or doctors but he admits that there are no changes in the feet since he was evaluated in the office on Saturday. He denies any nausea, vomiting, fever, headaches or chills. PAST MEDICAL HISTORY: 1. Charcot arthropathy. 2. Diabetes mellitus. 3. Hypertension. 4. Peripheral neuropathy. 5. Stage III kidney disease. 6. Obesity. 7. Renal insufficiency. 8. Chronic anemia. PAST SURGICAL HISTORY: 1. I&D of the left foot. 2. Wound Vac application by Dr. Boone approximately three weeks ago. FAMILY HISTORY Noncontributory. ALLERGIES MDRO HALDOL LEVAQUIN PROLIXIN VANCOMYCIN SOCIAL HISTORY: The patient denies any alcohol or drug abuse. He appears to have some level of mental disability. He lives at home with parents when not in here. VITAL SIGNS: Temperature is 98.7, which is also T-max. Pulse 74, blood pressure 141/67, pulse oximetry 97% O2 on room air. LABORATORY DATA: White count 11.2, down from 12.6, hemoglobin 9.3, hematocrit 27.5. Platelet count 326. Sodium 128, chloride 93, carbon dioxide 24.6, BUN 10, creatinine 1.80. INR 1.0. Blood cultures pending. PHYSICAL EXAMINATION: The patient has indurated lower extremity but palpable pulses. Capillary refill less than 3 seconds. Gross sensation is severely diminished. The patient has rocker bottom foot deformities consistent with Charcot arthropathy, with the left being worse than the right. Right plantar lateral mid foot, there is a 2 cm x 2 cm x 0 ulceration with a granular base, no erythema, serous drainage, no malodor, mild maceration periwound. The left lower extremity plantar central ulcer measuring 2 cm x 1.5 x 1.0, fibrogranular base, serous drainage, no malodor or macerated borders, no erythema. ASSESSMENT AND PLAN: 1. Bilateral foot ulceration, no cellulitis. -Patient has no change in presentation since his evaluation in the office 48 hours ago. I do not see an acute infection of the feet. -Wound care orders placed for nursing -Keep weightbearing as limited as possible. -The patient has offloading boots, however, they are dirty and not ideal to place on his skin, if possible perhaps they can be washed by housekeeping. We will monitor the patient intermittently while in-house. Patient to follow up with when discharged. Cecy COHEN/ORLIN /10:18 AM /12:35 PM MTDD
[2016-09-30 16:00] VITALS: BP 162/74; PULSE 84; RESP 20; TEMP 97.9; O2SAT 98
--- NOTE | 2016-09-30 16:01 | EKG ---
Date Performed: 09/29/2016 Time Performed: 16:43:04 PTAGE: 56 years EKG: Sinus rhythm WITH SINUS ARRHYTHMIA WITH FIRST DEGREE AV BLOCK Poor R wave progression Largely unchanged from prio r tracing ABNORMAL ECG PREVIOUS TRACING : 08/21/2016 03.52 DOCTOR: Jeffery Red Interpretating Date/Time 09/30/2016 16:00:57
[2016-09-30] MEDS: SODIUM CHLOR 0.9% 1000 ML INJ 1,000 ML IV SCH (17:59)
--- NOTE | 2016-09-30 19:05 | MB ---
cc: DUY LEIJA DATE OF CONSULTATION: 09/30/2016. REASON FOR CONSULTATION: Gallbladder wall thickening. HISTORY OF PRESENT ILLNESS: This is a 56-year-old male who was recently being taken care of at his retirement facility who presented to the emergency room with a complaint of abdominal pain. The patient had a CT scan which revealed a thick-walled gallbladder and surgical console was requested for evaluation. The patient denies abdominal pain. He denies nausea and vomiting. He denies chest pain or shortness of breath. The patient is currently on a regular diet and states he is tolerating it well and he is having bowel movements. PAST MEDICAL HISTORY: His past medical history is significant for: 1. Type 2 diabetes. 2. Hypertension. 3. He does have a psych history. PAST SURGICAL HISTORY: His surgical history is significant for: 1. Feet surgery. 2. Recent incision and drainage of feet abscesses. MEDICATIONS: The patient's medication can be obtained from his medical record. ALLERGIES: 1. LEVAQUIN. 2. . 3. NITRO. 4. HALDOL. SOCIAL HISTORY: He denies tobacco use. FAMILY HISTORY: Family history is noncontributory. REVIEW OF SYSTEMS: Review of systems significant for above. All other 10-point review negative. PHYSICAL EXAMINATION: GENERAL: On exam he is laying in bed in no acute distress. HEAD, EYES, EARS, NOSE, THROAT: Pupils equal and reactive. Sclera anicteric. NECK: Without JVD. LUNGS: Respirations clear. CARDIOVASCULAR: Regular. GASTROINTESTINAL: The abdomen is soft, nontender and nondistended. MUSCULOSKELETAL: Patient's bilateral feet are in bulky dressings. NEUROLOGICAL: Grossly intact. IMAGING STUDIES: CT reviewed and revealed contracted gallbladder with thickened wall. ASSESSMENT: This is a patient with multiple medical problems who has nonspecific gallbladder wall thickening. The patient is asymptomatic from this, and as such, will not recommend any surgical intervention. MD BREE Bryan/AUDI /3:49 PM /6:57 PM
[2016-09-30 20:13] VITALS: BP 141/67; PULSE 67; RESP 21; TEMP 98.8; O2SAT 97
[2016-09-30] MEDS: PANTOPRAZOLE SODIUM 40 MG VIAL IV PUSH SCH (21:25)
[2016-09-30 23:25] VITALS: BP 147/78; PULSE 88; RESP 21; TEMP 98.8; O2SAT 98
[2016-10-01] MEDS: PIPERACIL-TAZO 3.375 GM PREMIX 50 ML IV SCH ×5 (00:11→23:40)
[2016-10-01 04:37] VITALS: BP 141/72; PULSE 84; RESP 18; TEMP 98.7; O2SAT 95
[2016-10-01 05:22] LABS: AUTOMATED NEUTROPHIL # 7.9 TH/MM3 (1.8-7.7); BASOPHIL # 0.1 TH/MM3 (0-0.2); BASOPHIL % 1.2 % (0.0-2.0); EOSINOPHIL # 0.5 TH/MM3 (0-0.4); EOSINOPHIL % 4.3 % (0.0-4.0); HEMATOCRIT 27.8 % (39.0-51.0); HEMO FLAGS DIFF FINAL; LYMPH % 14.5 % (9.0-44.0); LYMPHOCYTE # 1.7 TH/MM3 (1.0-4.8); MEAN CELL VOLUME 82.3 FL (80.0-100.0); MEAN CORPUSCULAR HEMOGLOBIN 27.7 PG (27.0-34.0); MEAN CORPUSCULAR HGB CONC 33.6 % (32.0-36.0); MONO % 11.3 % (0.0-8.0); NEUT % 68.7 % (16.0-70.0); PLATELET COUNT 305 TH/MM3 (150-450); RED BLOOD COUNT 3.37 MIL/MM3 (4.50-5.90); RED CELL DISTRIBUTION WIDTH 16.6 % (11.6-17.2); WHITE BLOOD COUNT 11.6 TH/MM3 (4.0-11.0)
[2016-10-01] MEDS: MEDIUM DOSE INSULIN NOVOLOG SUPPLEMENTAL SCALE SQ SCH ×4 (05:30→21:00)
[2016-10-01 05:35] LABS: BICARBONATE 24.8 MEQ/L (21.0-32.0); POTASSIUM 4.2 MEQ/L (3.5-5.1)
[2016-10-01] MEDS: glipiZIDE 5 MG TAB PO SCH ×2 (05:56→19:10)
[2016-10-01] MEDS: HEPARIN SODIUM - SQ 10,000 UNITS/ML VIAL SQ SCH ×2 (05:56→19:09)
[2016-10-01 08:39] VITALS: BP 177/77; PULSE 80; RESP 18; TEMP 96.2; O2SAT 99
--- NOTE | 2016-10-01 08:45 | HHI.FPPN ---
Subjective Remarks c/o leg pain c/o edema D/W RN Objective Vitals Vital Signs Date Time Temp Pulse Resp B/P Pulse Ox O2 Delivery O2 Flow Rate FiO2 10/01/16 08:39 96.2 80 18 177/77 99 10/01/16 04:37 98.7 84 18 141/72 95 09/30/16 23:25 98.8 88 21 147/78 98 09/30/16 20:13 98.8 67 21 141/67 97 09/30/16 19:08 18 09/30/16 16:00 97.9 84 20 162/74 98 09/30/16 12:00 97.9 84 20 162/74 98 I/O 09/30/16 09/30/16 09/30/16 10/01/16 10/01/16 10/01/16 07:00 15:00 23:00 07:00 15:00 23:00 Intake Total 240 ml 960 ml 240 ml 120 ml Output Total 1800 ml 1200 ml 1200 ml 1600 ml Balance -1560 ml -240 ml -960 ml -1480 ml Intake Oral 240 ml 960 ml 240 ml 120 ml Output Urine Total 1800 ml 1200 ml 1200 ml 1600 ml # Voids 3 2 2 # Bowel Movements 0 Result Diagram: 10/01/1642210/01/16422 Objective Remarks GENERAL: SKIN: Warm and dry. CHARCOT FEET, OPEN AREAS ON FEET HEAD: Atraumatic. Normocephalic. EYES: Pupils equal and round. No scleral icterus. No injection or drainage. ENT: No nasal bleeding or discharge. Mucous membranes pink and moist. NECK: Trachea midline. No JVD. CARDIOVASCULAR: Regular rate and rhythm. RESPIRATORY: No accessory muscle use. Clear to auscultation. Breath sounds equal bilaterally. GASTROINTESTINAL: Abdomen soft, non-tender, nondistended. Hepatic and splenic margins not palpable. MUSCULOSKELETAL: Extremities without clubbing, cyanosis, or edema. No obvious deformities. NEUROLOGICAL: Awake and alert. No obvious cranial nerve deficits. Motor grossly within normal limits. 2 out of 5 muscle strength in the arms and legs. Normal speech. PSYCHIATRIC: Appropriate mood and affect; insight and judgment normal. Medications and IVs Current Medications Medications (Trade) Dose Ordered Sig/Portia Route Start Time Stop Time Status Last Admin (Ecotrin Ec) 81 mg DAILY PO 09/30/16 09:00 09/30/16 10:12 (Lasix) 40 mg DAILY PO 09/30/16 09:00 09/30/16 10:12 (Neurontin) 400 mg TID PO 09/29/16 18:00 09/30/16 17:57 (Glucotrol) 5 mg BIDAC PO 09/30/16 07:00 10/01/16 05:56 ([place] 5-325 Mg) 1 tab Q4H PRN PO 09/29/16 17:45 09/30/16 17:57 (Prinivil) 10 mg DAILY PO 09/30/16 09:00 09/30/16 10:12 (Ativan) 0.5 mg Q8H PRN PO 09/29/16 17:45 09/29/16 23:44 Thioridazine HCl 200 mg 200 mg DAILY PO 09/30/16 09:00 09/30/16 10:13 (NS 1000 ml Inj) 1,000 ml @ 20 mls/hr Q24H IV 09/29/16 17:49 09/30/16 17:59 (NS Flush) 2 ml UNSCH PRN FLUSH 09/29/16 18:00 (NS Flush) 2 ml BID FLUSH 09/29/16 21:00 09/30/16 10:11 (Tylenol) 650 mg Q4H PRN PO 09/29/16 18:00 (Zofran Inj) 4 mg Q6H PRN IVP 09/29/16 18:00 (Dulcolax Supp) 10 mg DAILY PRN [place] 09/29/16 18:00 (Milk Of Magnliam Liq) 30 ml Q12H PRN PO 09/29/16 18:00 (Ambien) 5 mg HS PRN PO 09/29/16 18:00 (Heparin Inj) 5,000 units Q12H SQ 09/29/16 18:00 10/01/16 05:56 (Narcan Inj) 0.4 mg UNSCH PRN IV 09/29/16 18:00 (Catapres) 0.1 mg Q6H PRN PO 09/29/16 18:00 (Morphine Inj) 5 mg Q4H PRN IV PUSH 09/29/16 18:00 09/29/16 23:44 Pantoprazole Sodium 40 mg 40 mg Q24H IV PUSH 09/29/16 20:00 09/30/16 21:25 (Zosyn 3.375 Gm Premix) 50 ml @ 100 mls/hr Q6H IV 09/29/16 18:00 10/01/16 05:55 (D50w (Vial) Inj) 25 ml UNSCH PRN IV PUSH 09/29/16 18:45 (Glucagon Inj) 1 mg UNSCH PRN OTHER 09/29/16 18:45 (Santyl Oint) 1 applic DAILY TOP 09/30/16 10:30 09/30/16 10:30 A/P Problem List: (1) Uncontrolled diabetes mellitus Status: Acute (2) Acute blood loss anemia Status: Acute (3) Acute renal failure Status: Acute (4) Anemia Status: Acute (5) Hyponatremia Status: Acute (6) Peripheral neuropathy Status: Acute (7) Renal insufficiency Status: Acute (8) Schizophrenia Status: Chronic (9) Sepsis Status: Resolved (10) Hypertension Status: Chronic (11) Obesity Status: Chronic (12) ETOH abuse Status: Chronic (13) DM (diabetes mellitus) Status: Chronic (14) CKD (chronic kidney disease) stage 3, GFR 30-59 ml/min Status: Acute (15) Osteomyelitis of ankle or foot Status: Acute (16) Charcot foot due to diabetes mellitus Status: Chronic (17) Abscess of right foot Status: Acute (18) Cellulitis of left foot Status: Chronic (19) Noncompliance Status: Acute (20) Type 2 diabetes mellitus with foot ulcer Status: Chronic (21) Impaired mobility and activities of daily living Status: Acute (22) Other specified diabetes mellitus with diabetic peripheral angiopathy without gangrene Status: Chronic (23) Morbid obesity with BMI of 45.0-49.9, adult Status: Chronic (24) 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 INSULIN HEPARIN BID PROTONIX IV SEE ORDERS BY ME PLEASE. OBS ADMIT Problem Qualifiers (1) Sepsis: Qualified Code: A41.9 - Sepsis, due to unspecified organism Jack Rod MD Oct 01, 2016 08:45
[2016-10-01] MEDS: SODIUM CHLORIDE 0.9% FLUSH 5 ML FLUSH FLUSH SCH ×2 (09:46→21:00)
[2016-10-01] MEDS: FUROSEMIDE 40 MG TAB PO SCH (09:46)
[2016-10-01] MEDS: LISINOPRIL 10 MG TAB PO SCH (09:46)
[2016-10-01] MEDS: ASPIRIN EC 81 MG TABEC PO SCH (09:46)
[2016-10-01] MEDS: COLLAGENASE OINT 30 GM TUBE TOP SCH (09:46)
[2016-10-01] MEDS: GABAPENTIN 400 MG CAP PO SCH ×3 (09:47→19:09)
[2016-10-01] MEDS: THIORIDAZINE HCL 100 MG PO SCH (09:47)
[2016-10-01] MEDS: ACETAMINOPHEN/HYDROcodone 325 MG/5 MG TAB PO PRN ×2 (10:11→14:29)
[2016-10-01 11:59] VITALS: BP 144/68; PULSE 85; RESP 18; TEMP 98; O2SAT 95
[2016-10-01] MEDS: SODIUM CHLOR 0.9% 1000 ML INJ 1,000 ML IV SCH (17:49)
[2016-10-01] MEDS: PANTOPRAZOLE SODIUM 40 MG VIAL IV PUSH SCH (21:11)
[2016-10-01 23:24] VITALS: BP 141/79; PULSE 77; RESP 18; TEMP 98.7; O2SAT 97
[2016-10-01] MEDS: MORPHINE SULFATE 8 MG/ML INJ IV PUSH PRN (23:40)
[2016-10-02] MEDS: LORazepam 0.5 MG TAB PO PRN (01:35)
[2016-10-02 04:29] VITALS: BP 138/68; PULSE 78; RESP 18; TEMP 98.7; O2SAT 98
[2016-10-02 04:35] LABS: AUTOMATED NEUTROPHIL # 7.7 TH/MM3 (1.8-7.7); BASOPHIL # 0.1 TH/MM3 (0-0.2); BASOPHIL % 0.7 % (0.0-2.0); EOSINOPHIL # 0.7 TH/MM3 (0-0.4); EOSINOPHIL % 5.8 % (0.0-4.0); HEMATOCRIT 27.1 % (39.0-51.0); HEMO FLAGS DIFF FINAL; LYMPH % 15.6 % (9.0-44.0); LYMPHOCYTE # 1.8 TH/MM3 (1.0-4.8); MEAN CELL VOLUME 82.6 FL (80.0-100.0); MEAN CORPUSCULAR HGB CONC 33.9 % (32.0-36.0); NEUT % 66.9 % (16.0-70.0); PLATELET COUNT 327 TH/MM3 (150-450); RED BLOOD COUNT 3.28 MIL/MM3 (4.50-5.90); RED CELL DISTRIBUTION WIDTH 16.9 % (11.6-17.2); WHITE BLOOD COUNT 11.5 TH/MM3 (4.0-11.0)
[2016-10-02 05:04] LABS: BICARBONATE 25.8 MEQ/L (21.0-32.0); POTASSIUM 3.9 MEQ/L (3.5-5.1)
[2016-10-02] MEDS: HEPARIN SODIUM - SQ 10,000 UNITS/ML VIAL SQ SCH (05:36)
[2016-10-02] MEDS: PIPERACIL-TAZO 3.375 GM PREMIX 50 ML IV SCH ×2 (05:36→11:24)
[2016-10-02 06:43] VITALS: BP_SYST 133; BP_SYST 151; BP_DIAS 77; BP_DIAS 87; PULSE 78; RESP 18; TEMP 98; O2SAT 97
[2016-10-02] MEDS: glipiZIDE 5 MG TAB PO SCH (07:00)
[2016-10-02] MEDS: MEDIUM DOSE INSULIN NOVOLOG SUPPLEMENTAL SCALE SQ SCH ×2 (07:00→11:00)
[2016-10-02] MEDS: SODIUM CHLORIDE 0.9% FLUSH 5 ML FLUSH FLUSH SCH (09:00)
--- NOTE | 2016-10-02 09:48 | HHI.FPPN ---
Subjective Remarks LETHARGIC D/W RN PT WITH MANY DEMANDS Objective Vitals Vital Signs Date Time Temp Pulse Resp B/P Pulse Ox O2 Delivery O2 Flow Rate FiO2 10/02/16 06:43 98.0 78 18 133/77 97 10/02/16 04:29 98.7 78 18 138/68 98 10/01/16 23:51 16 10/01/16 23:24 98.7 77 18 141/79 97 10/01/16 11:59 98.0 85 18 144/68 95 I/O 10/01/16 10/01/16 10/01/16 10/02/16 10/02/16 10/02/16 07:00 15:00 23:00 07:00 15:00 23:00 Intake Total 120 ml 120 ml Output Total 1600 ml 1200 ml Balance -1480 ml -1080 ml Intake Oral 120 ml 120 ml Output Urine Total 1600 ml 1200 ml # Voids 2 2 Result Diagram: 10/02/1640810/02/16408 Objective Remarks GENERAL: SKIN: Warm and dry. CHARCOT FEET, OPEN AREAS ON FEET HEAD: Atraumatic. Normocephalic. EYES: Pupils equal and round. No scleral icterus. No injection or drainage. ENT: No nasal bleeding or discharge. Mucous membranes pink and moist. NECK: Trachea midline. No JVD. CARDIOVASCULAR: Regular rate and rhythm. RESPIRATORY: No accessory muscle use. Clear to auscultation. Breath sounds equal bilaterally. GASTROINTESTINAL: Abdomen soft, non-tender, nondistended. Hepatic and splenic margins not palpable. MUSCULOSKELETAL: Extremities without clubbing, cyanosis, or edema. No obvious deformities. NEUROLOGICAL: Awake and alert. No obvious cranial nerve deficits. Motor grossly within normal limits. 2 out of 5 muscle strength in the arms and legs. Normal speech. PSYCHIATRIC: Appropriate mood and affect; insight and judgment normal. Procedures Microbiology Date/Time Procedure Status Source Growth 09/29/16 15:55 Aerobic Blood Culture - Preliminary Resulted Blood Peripheral NO GROWTH IN 2 DAYS 09/29/16 15:55 Anaerobic Blood Culture - Preliminary Resulted Blood Peripheral NO GROWTH IN 2 DAYS Medications and IVs Current Medications Medications (Trade) Dose Ordered Sig/Portia Route Start Time Stop Time Status Last Admin (Ecotrin Ec) 81 mg DAILY PO 09/30/16 09:00 10/01/16 09:46 (Lasix) 40 mg DAILY PO 09/30/16 09:00 10/01/16 09:46 (Neurontin) 400 mg TID PO 09/29/16 18:00 10/01/16 19:09 (Glucotrol) 5 mg BIDAC PO 09/30/16 07:00 10/02/16 07:00 ([place] 5-325 Mg) 1 tab Q4H PRN PO 09/29/16 17:45 10/01/16 14:29 (Prinivil) 10 mg DAILY PO 09/30/16 09:00 10/01/16 09:46 (Ativan) 0.5 mg Q8H PRN PO 09/29/16 17:45 10/02/16 01:35 Thioridazine HCl 200 mg 200 mg DAILY PO 09/30/16 09:00 10/01/16 09:47 (NS 1000 ml Inj) 1,000 ml @ 20 mls/hr Q24H IV 09/29/16 17:49 09/30/16 17:59 (NS Flush) 2 ml UNSCH PRN FLUSH 09/29/16 18:00 (NS Flush) 2 ml BID FLUSH 09/29/16 21:00 10/01/16 21:00 (Tylenol) 650 mg Q4H PRN PO 09/29/16 18:00 (Zofran Inj) 4 mg Q6H PRN IVP 09/29/16 18:00 (Dulcolax Supp) 10 mg DAILY PRN [place] 09/29/16 18:00 (Milk Of Magnesia Liq) 30 ml Q12H PRN PO 09/29/16 18:00 (Ambien) 5 mg HS PRN PO 09/29/16 18:00 (Heparin Inj) 5,000 units Q12H SQ 09/29/16 18:00 10/02/16 05:36 (Narcan Inj) 0.4 mg UNSCH PRN IV 09/29/16 18:00 (Catapres) 0.1 mg Q6H PRN PO 09/29/16 18:00 (Morphine Inj) 5 mg Q4H PRN IV PUSH 09/29/16 18:00 10/01/16 23:40 Pantoprazole Sodium 40 mg 40 mg Q24H IV PUSH 09/29/16 20:00 10/01/16 21:11 (Zosyn 3.375 Gm Premix) 50 ml @ 100 mls/hr Q6H IV 09/29/16 18:00 10/02/16 05:36 (D50w (Vial) Inj) 25 ml UNSCH PRN IV PUSH 09/29/16 18:45 (Glucagon Inj) 1 mg UNSCH PRN OTHER 09/29/16 18:45 (Santyl Oint) 1 applic DAILY TOP 09/30/16 10:30 10/01/16 09:46 A/P Problem List: (1) Uncontrolled diabetes mellitus Status: Acute (2) Acute blood loss anemia Status: Acute (3) Acute renal failure Status: Acute (4) Anemia Status: Acute (5) Hyponatremia Status: Acute (6) Peripheral neuropathy Status: Acute (7) Renal insufficiency Status: Acute (8) Schizophrenia Status: Chronic (9) Sepsis Status: Resolved (10) Hypertension Status: Chronic (11) Obesity Status: Chronic (12) ETOH abuse Status: Chronic (13) DM (diabetes mellitus) Status: Chronic (14) CKD (chronic kidney disease) stage 3, GFR 30-59 ml/min Status: Acute (15) Osteomyelitis of ankle or foot Status: Acute (16) Charcot foot due to diabetes mellitus Status: Chronic (17) Abscess of right foot Status: Acute (18) Cellulitis of left foot Status: Chronic (19) Noncompliance Status: Acute (20) Type 2 diabetes mellitus with foot ulcer Status: Chronic (21) Impaired mobility and activities of daily living Status: Acute (22) Other specified diabetes mellitus with diabetic peripheral angiopathy without gangrene Status: Chronic (23) Morbid obesity with BMI of 45.0-49.9, adult Status: Chronic (24) 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 INSULIN HEPARIN BID PROTONIX IV SEE ORDERS BY ME PLEASE. OBS ADMIT Problem Qualifiers (1) Sepsis: Qualified Code: A41.9 - Sepsis, due to unspecified organism Jack Rod MD Oct 02, 2016 09:48
[2016-10-02] MEDS: THIORIDAZINE HCL 100 MG PO SCH (11:24)
[2016-10-02] MEDS: ASPIRIN EC 81 MG TABEC PO SCH (11:24)
[2016-10-02] MEDS: FUROSEMIDE 40 MG TAB PO SCH (11:24)
[2016-10-02] MEDS: LISINOPRIL 10 MG TAB PO SCH (11:24)
[2016-10-02] MEDS: GABAPENTIN 400 MG CAP PO SCH (11:24)
[2016-10-02] MEDS: ACETAMINOPHEN/HYDROcodone 325 MG/5 MG TAB PO PRN (11:25)
[2016-10-02] MEDS: COLLAGENASE OINT 30 GM TUBE TOP SCH (11:25)
== END 2016-10-02 13:35 | disposition left against medical advice (07) ==
LOC: NEPC 15:01 → NEDA 17:41 → INTOOBSV 17:41 → NEPGCP 23:05
PROVIDERS: ADMIT Family Medicine; ATTEND Family Medicine
DX: E11.621 Type 2 diabetes mellitus with foot ulcer (principal); L97.529 Non-pressure chronic ulcer of other part of left foot with unspecified severity; L97.519 Non-pressure chronic ulcer of other part of right foot with unspecified severity; E11.65 Type 2 diabetes mellitus with hyperglycemia; E11.610 Type 2 diabetes mellitus with diabetic neuropathic arthropathy; E11.51 Type 2 diabetes mellitus with diabetic peripheral angiopathy without gangrene; I12.9 Hypertensive chronic kidney disease with stage 1 through stage 4 chronic kidney disease, or unspecified chronic kidney disease; N18.3 Chronic kidney disease, stage 3 (moderate); R63.1 Polydipsia; K62.89 Other specified diseases of anus and rectum; E87.1 Hypo-osmolality and hyponatremia; R07.89 Other chest pain; F20.9 Schizophrenia, unspecified; F41.9 Anxiety disorder, unspecified; F32.9 Major depressive disorder, single episode, unspecified; R60.9 Edema, unspecified; N50.819 Testicular pain, unspecified; R19.5 Other fecal abnormalities; R10.30 Lower abdominal pain, unspecified; Z86.14 Personal history of Methicillin resistant Staphylococcus aureus infection; Z79.01 Long term (current) use of anticoagulants; Z91.19 Patient's noncompliance with other medical treatment and regimen
CPT/HCPCS: 71010; 74177; 76870; 80048; 80053; 81001; 82550; 82948; 83605; 83690; 83930; 83935; 84484; 85025; 85610; 85730; 86403; 87040; 87077; 87186; 87205; 93005; 93975; 97162; 97166; 97535; 99285; C9113; G0378; G8987; G8988; J1644; J1815; J2270; J2543; J7030; Q9967

== ENCOUNTER 2016-10-04 18:40 | Inpatient (IN) | payer MEDICARE, MEDICAID ==
[~2016-10-04] VITALS: Ht 177.8 cm; Wt 103.3 kg
[2016-10-04 18:47] VITALS: BP 162/81; PULSE 90; RESP 17; TEMP 98.2; O2SAT 96
[2016-10-04 22:35] VITALS: BP 137/63; PULSE 98; RESP 16; O2SAT 99
[2016-10-04] MEDS ORDERED: MORPHINE SULFATE 4 MG/ML INJ IV PUSH ONE (22:45)
[2016-10-04] MEDS ORDERED: ONDANSETRON HCL 4 MG/2 ML VIAL IV PUSH ONE (22:45)
--- NOTE | 2016-10-04 23:03 | PD ---
HPI Chief Complaint: Syncope/Near-Syncope Time Seen by Provider: 22:40 Travel History International Travel<30 days: No Contact w/Intl Traveler<30days: No Traveled to known affect area: No History of Present Illness HPI 56-year-old male with history of schizophrenia presents to the emergency room via ambulance for evaluation of chronic bilateral foot pain and diabetic ulcers. Patient states he can feel his feet. States he feels unwell and has severe foot pain. When asked to elaborate, patient only reports foot pain and back pain that started when he got to the emergency room. He denies fever, chills. States his wounds developed after he had surgical intervention recently. He states that he keeps dressings on his wounds but does not go to wound clinic. Patient takes gabapentin for pain which does not really provide significant relief. Patient does not take Tylenol or ibuprofen for pain. States he does not have narcotic pain medication. PFSH Past Medical History Hx Anticoagulant Therapy: Yes Arthritis: No Asthma: No Autoimmune Disease: No Blood Disorders: No Anxiety: Yes Depression: Yes Heart Rhythm Problems: No Cancer: No Cardiovascular Problems: Yes (HTN) High Cholesterol: No Chemotherapy: No Chest Pain: No Congestive Heart Failure: No COPD: No Cerebrovascular Accident: No Diabetes: Yes Patient Takes Glucophage: No Diminished Hearing: No Endocrine: No GERD: No Glaucoma: No Genitourinary: No Headaches: No Hepatitis: No Hiatal Hernia: No Hypertension: Yes Immune Disorder: No Kidney Stones: No Musculoskeletal: No Neurologic: No Psychiatric: Yes (schizoprenia controlled ) Reproductive: No Respiratory: No Migraines: No Myocardial Infarction: No Radiation Therapy: No Renal Failure: No Schizophrenia: Yes Seizures: No Sickle Cell Disease: No Sleep Apnea: No Thyroid Disease: No Ulcer: No Past Surgical History Abdominal Surgery: No AICD: No Appendectomy: No Arteriovenous Shunt: No Cardiac Surgery: No Cholecystectomy: No Ear Surgery: No Endocrine Surgery: No Eye Surgery: No Genitourinary Surgery: No Gynecologic Surgery: No Insulin Pump: No Joint Replacement: No Oral Surgery: No Pacemaker: No Thoracic Surgery: No Other Surgery: Yes (R FOOT ) Social History Alcohol Use: Yes (6 PACK OF BEER PER DAY) Tobacco Use: No Substance Use: No Allergies-Medications (Allergen,Severity, Reaction): Coded Allergies: Haldol (Verified Allergy, Severe, BLINDNESS, 09/29/16) Vancomycin (Verified Allergy, Severe, 09/29/16) Levaquin (Verified Allergy, Intermediate, Cramping, 09/29/16) Prolixin (Verified Allergy, Unknown, "PARKINSONIAN SHACKS", 09/29/16) *MDRO Multi-Drug Resistant Organism (Verified Adverse Reaction, Unknown, VRE, 09/29/16) 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 Reported Meds & Prescriptions Reported Meds & Active Scripts Active Lasix (Furosemide) 40 Mg Tab 40 Mg PO DAILY Ativan (Lorazepam) 0.5 Mg Tab 0.5 Mg PO Q8H PRN Hydrocodone-Acetaminophen 5-325 mg Tab 1 Tab PO Q4H PRN Novolog Inj (Insulin Aspart) 100 Unit/Ml Inj 1 Units SQ ACHS SLIDING SCALE 90 Days Reported Glipizide 5 Mg Tab 5 Mg PO BIDAC Take 30 minutes before a meal Lisinopril 10 Mg Tab 10 Mg PO DAILY Neurontin (Gabapentin) 400 Mg Cap 400 Mg PO TID Aspirin 81 (Aspirin) 81 Mg Tabdr 81 Mg PO DAILY Thioridazine (Thioridazine HCl) 100 Mg Tab 200 Mg PO DAILY Review of Systems Except as stated in HPI: all other systems reviewed are Neg Physical Exam Narrative GENERAL: Well-nourished, well-developed male in no acute distress. Afebrile. Ambulatory. SKIN: No rashes, ecchymoses. Warm and dry. There are chronic, diabetic foot ulcers on bilateral plantar feet. Wounds appear acutely dirty as this patient has not been taking care of them. There is no purulent drainage or lymphangitis. HEAD: Normocephalic. EYES: No scleral icterus. No injection or drainage. NECK: Supple, trachea midline. No JVD or lymphadenopathy. CARDIOVASCULAR: Regular rate and rhythm without murmurs, gallops, or rubs. RESPIRATORY: Breath sounds equal bilaterally. No accessory muscle use. EXTREMITY: Bilateral feet tender to palpation. Full range of motion in all joints. Moderate to severe edema of bilateral lower extremities. Data Data Last Documented VS Vital Signs Date Time Temp Pulse Resp B/P Pulse Ox O2 Delivery O2 Flow Rate FiO2 10/04/16 22:35 98 16 137/63 99 Room Air 10/04/16 18:47 98.2 Orders Basic Metabolic Panel (Bmp) (10/04/16 22:39) Complete Blood Count With Diff (10/04/16 22:39) Iv Access Insert/Monitor (10/04/16 22:39) Ondansetron Inj (Zofran Inj) (10/04/16 22:45) Morphine Inj (Morphine Inj) (10/04/16 22:45) MDM Medical Decision Making Medical Screen Exam Complete: Yes Emergency Medical Condition: Yes Medical Record Reviewed: Yes Differential Diagnosis Chronic diabetic foot ulcer versus schizophrenia versus wound infection Narrative Course 56-year-old male presents to the emergency room for evaluation of pain in his chronic bilateral diabetic foot ulcers. Physical exam reveals chronic plantar ulcers without purulent drainage or lymphangitis. Vital signs stable. Patient denies any other complaints but states he feels unwell. Basic labs obtained and he was given morphine and Zofran. He'll be signed out to the nighttime provider. Condition: Stable Alexandra Portillo Oct 04, 2016 23:03
[2016-10-04 23:10] LABS: AUTOMATED NEUTROPHIL # 9.4 TH/MM3 (1.8-7.7); BASOPHIL # 0.1 TH/MM3 (0-0.2); BASOPHIL % 0.6 % (0.0-2.0); EOSINOPHIL # 0.5 TH/MM3 (0-0.4); EOSINOPHIL % 3.8 % (0.0-4.0); HEMATOCRIT 23.4 % (39.0-51.0); HEMO FLAGS DIFF FINAL; LYMPH % 15.2 % (9.0-44.0); LYMPHOCYTE # 1.9 TH/MM3 (1.0-4.8); MEAN CORPUSCULAR HEMOGLOBIN 28.8 PG (27.0-34.0); MEAN CORPUSCULAR HGB CONC 35.5 % (32.0-36.0); MONO % 5.7 % (0.0-8.0); NEUT % 74.7 % (16.0-70.0); PLATELET COUNT 301 TH/MM3 (150-450); RED BLOOD COUNT 2.89 MIL/MM3 (4.50-5.90); RED CELL DISTRIBUTION WIDTH 16.3 % (11.6-17.2); WHITE BLOOD COUNT 12.6 TH/MM3 (4.0-11.0)
[2016-10-04 23:23] LABS: BICARBONATE 21.5 MEQ/L (21.0-32.0); POTASSIUM 4.6 MEQ/L (3.5-5.1)
--- NOTE | 2016-10-04 23:43 | PD ---
Physical Exam Date Seen by Provider: Oct 04, 2016 Time Seen by Provider: 23:39 Narrative The patient is a 56-year-old male who was initially evaluated by the mid-level provider, please refer to initial history, physical, diagnostic evaluation, and treatment modality plan. The patient has a history of psychosis/schizophrenia with multiple recent hospitalizations. The patient has been living with his father who is in his 80s, but no longer care for him. The patient was sent to the emergency department for multiple complaints. The patient's sodium once again was noted to be 117, he does have a history of hyponatremia, last admission sodium was 121, when he was discharged was 128. Data Data Last Documented VS Vital Signs Date Time Temp Pulse Resp B/P Pulse Ox O2 Delivery O2 Flow Rate FiO2 10/04/16 22:35 98 16 137/63 99 Room Air 10/04/16 18:47 98.2 Orders Basic Metabolic Panel (Bmp) (10/04/16 22:39) Complete Blood Count With Diff (10/04/16 22:39) Iv Access Insert/Monitor (10/04/16 22:39) Ondansetron Inj (Zofran Inj) (10/04/16 22:45) Morphine Inj (Morphine Inj) (10/04/16 22:45) Admit Order (Ed Use Only) (10/04/16 23:46) Dextrose 50% In Inderjit (Vial) Inj (D50w (Vi (10/04/16 23:45) Glucagon Inj (Glucagon Inj) (10/04/16 23:45) Insulin Aspart Supplemtl Scale (Novolog (10/05/16 07:00) Labs Laboratory Tests Test 10/04/16 22:54 White Blood Count 12.6 TH/MM3 Red Blood Count 2.89 MIL/MM3 Hemoglobin 8.3 GM/DL Hematocrit 23.4 % Mean Corpuscular Volume 81.0 FL Mean Corpuscular Hemoglobin 28.8 PG Mean Corpuscular Hemoglobin 35.5 % Concent Red Cell Distribution Width 16.3 % Platelet Count 301 TH/MM3 Mean Platelet Volume 7.6 FL Neutrophils (%) (Auto) 74.7 % Lymphocytes (%) (Auto) 15.2 % Monocytes (%) (Auto) 5.7 % Eosinophils (%) (Auto) 3.8 % Basophils (%) (Auto) 0.6 % Neutrophils # (Auto) 9.4 TH/MM3 Lymphocytes # (Auto) 1.9 TH/MM3 Monocytes # (Auto) 0.7 TH/MM3 Eosinophils # (Auto) 0.5 TH/MM3 Basophils # (Auto) 0.1 TH/MM3 CBC Comment DIFF FINAL Differential Comment Sodium Level 117 MEQ/L Potassium Level 4.6 MEQ/L Chloride Level 84 MEQ/L Carbon Dioxide Level 21.5 MEQ/L Anion Gap 12 MEQ/L Blood Urea Nitrogen 24 MG/DL Creatinine 1.39 MG/DL Estimat Glomerular Filtration 53 ML/MIN Rate Random Glucose 61 MG/DL Calcium Level 8.6 MG/DL [facility] Medical Record Reviewed: Yes Supervised Visit with NADIYA: Yes Interpretation(s) Laboratory Tests Test 10/04/16 22:54 White Blood Count 12.6 TH/MM3 Red Blood Count 2.89 MIL/MM3 Hemoglobin 8.3 GM/DL Hematocrit 23.4 % Mean Corpuscular Volume 81.0 FL Mean Corpuscular Hemoglobin 28.8 PG Mean Corpuscular Hemoglobin 35.5 % Concent Red Cell Distribution Width 16.3 % Platelet Count 301 TH/MM3 Mean Platelet Volume 7.6 FL Neutrophils (%) (Auto) 74.7 % Lymphocytes (%) (Auto) 15.2 % Monocytes (%) (Auto) 5.7 % Eosinophils (%) (Auto) 3.8 % Basophils (%) (Auto) 0.6 % Neutrophils # (Auto) 9.4 TH/MM3 Lymphocytes # (Auto) 1.9 TH/MM3 Monocytes # (Auto) 0.7 TH/MM3 Eosinophils # (Auto) 0.5 TH/MM3 Basophils # (Auto) 0.1 TH/MM3 CBC Comment DIFF FINAL Differential Comment Sodium Level 117 MEQ/L Potassium Level 4.6 MEQ/L Chloride Level 84 MEQ/L Carbon Dioxide Level 21.5 MEQ/L Anion Gap 12 MEQ/L Blood Urea Nitrogen 24 MG/DL Creatinine 1.39 MG/DL Estimat Glomerular Filtration 53 ML/MIN Rate Random Glucose 61 MG/DL Calcium Level 8.6 MG/DL Differential Diagnosis Differential diagnoses includes hyponatremia, dehydration, psychogenic polydipsia, schizophrenia, chronic foot ulcerations. Narrative Course I, Dr. Rachel, have reviewed the advance practice practitioner's documentation and am in agreement, met with the patient face to face, made the diagnosis, and the medical decision making was done by me. *My assessment and Findings: The patient was initially evaluate by the mid- level provider, Alexandra Portillo. The patient has a history of schizophrenia and hyponatremia, presents for multiple complaints from his father's house. The father apparently has been calling emergency department stating he can no longer take care of his son who has schizophrenia and multiple medical problems. The patient has multiple physical complaints, appears to be slightly psychotic, but is redirectable. The patient's sodium was noted to be 117, his previous low on EMR was 120 and upon last admission was 121, and elevated to 128. This may be secondary to psychogenic polydipsia versus medications. The patient's primary physician is Dr. Rod, therefore, Dr. Rod was paged for admission. The patient very well may need custodial/[facility] placement. Physician Communication Physician Communication Dr. Rod was paged at 11:41 PM. I discussed the patient with Dr. Rod who agrees with admission. Diagnosis Primary Impression: Hyponatremia Additional Impression: Schizophrenia Qualified Code: F20.89 - Other schizophrenia Admitting Information Admitting Physician Requests: Admit Condition: Stable Jevon Rachel MD Oct 04, 2016 23:43
[2016-10-04] MEDS ORDERED: DEXTROSE 50% IN WATER 50 ML VIAL(D50) IV PUSH PRN (23:45)
[2016-10-04] MEDS ORDERED: GLUCAGON 1 MG/ML VIAL OTHER PRN (23:45)
[2016-10-05] VITALS (9 sets, daily range): BP systolic 123–162; BP diastolic 63–72; PULSE 80–94; RESP 15–20; TEMP 96.6–97.8; O2SAT 95–98
[2016-10-05] MEDS ORDERED: FUROSEMIDE 40 MG/4 ML VIAL IV PUSH ONE (01:30)
[2016-10-05] MEDS: SODIUM CHLOR 0.9% 1000 ML INJ 1,000 ML IV SCH ×2 (01:50→19:51)
[2016-10-05 03:52] LABS: AUTOMATED NEUTROPHIL # 8.7 TH/MM3 (1.8-7.7); BASOPHIL # 0.1 TH/MM3 (0-0.2); BASOPHIL % 0.9 % (0.0-2.0); EOSINOPHIL # 0.5 TH/MM3 (0-0.4); EOSINOPHIL % 4.2 % (0.0-4.0); HEMATOCRIT 23.6 % (39.0-51.0); HEMO FLAGS DIFF FINAL; LYMPH % 13.2 % (9.0-44.0); LYMPHOCYTE # 1.5 TH/MM3 (1.0-4.8); MEAN CELL VOLUME 80.8 FL (80.0-100.0); MEAN CORPUSCULAR HEMOGLOBIN 28.4 PG (27.0-34.0); MEAN CORPUSCULAR HGB CONC 35.1 % (32.0-36.0); MONO % 7.5 % (0.0-8.0); NEUT % 74.2 % (16.0-70.0); PLATELET COUNT 310 TH/MM3 (150-450); RED BLOOD COUNT 2.92 MIL/MM3 (4.50-5.90); RED CELL DISTRIBUTION WIDTH 16.7 % (11.6-17.2); WHITE BLOOD COUNT 11.7 TH/MM3 (4.0-11.0)
[2016-10-05 04:12] LABS: BICARBONATE 24.4 MEQ/L (21.0-32.0); POTASSIUM 4.8 MEQ/L (3.5-5.1)
[2016-10-05] MEDS: LOW DOSE INSULIN NOVOLOG SUPPLEMENTAL SCALE SQ SCH ×4 (04:44→19:48)
--- NOTE | 2016-10-05 08:58 | HHI.HP ---
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 PT SUPPOSED TO GO BACK TO [facility]. PT ENDED UP LEAVING AND GOING TO HIS ELDER FATHER'S HOME. PT PRESENTED BACK TO THE ER WITH FOOT PAIN COMPLAINTS, AND WEAKNESS. PT C/O SEVERE LEG PAIN AND EDEMA. I WAS CALLED BY THE ER MD FOR ADMIT. PT WITH DOG HAIR AND UNKEPT WOUNDS AND HIS FATHER WAS CALLING THE ER AND REPORTS THAT HE IS UNABLE TO HELP HIM AT HOME ANY LONGER. Sepsis Criteria SIRS Criteria (2 or more): Temp > 100.9 or < 96.8, Heart rate over 90, WBC > 64809, < 4000 or > 10% bands Sepsis Criteria (SIRS+source): Infect source susp/known Severe Sepsis (+one): Organ Dysfunction Criteria Outcome: Meets severe sepsis criteria Review of Systems ROS Limitations: Clinical Condition, Poor Historian Other NEGATIVE FOURTEEN POINT ROS EXCEPT ABOVE. Past Family Social History Allergies: Coded Allergies: Haldol (Verified Allergy, Severe, BLINDNESS, 09/29/16) Vancomycin (Verified Allergy, Severe, 09/29/16) Levaquin (Verified Allergy, Intermediate, Cramping, 09/29/16) Prolixin (Verified Allergy, Unknown, "PARKINSONIAN SHACKS", 09/29/16) *MDRO Multi-Drug Resistant Organism (Verified Adverse Reaction, Unknown, VRE, 09/29/16) 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 Past Medical History SHIZO DM HYPONA Past Surgical History FEET I AND D'S Reported Medications Current Medications Medications (Trade) Dose Ordered Sig/Portia Route Start Time Stop Time Status Last Admin (D50w (Vial) Inj) 25 ml UNSCH PRN IV PUSH 1/19/17 23:45 (Glucagon Inj) 1 mg UNSCH PRN OTHER 10/04/16 23:45 Furosemide 40 mg 40 mg DAILY IV PUSH 10/05/16 09:00 10/05/16 09:06 (NS 1000 ml Inj) 1,000 ml @ 5 mls/hr Q24H IV 10/05/16 01:30 10/05/16 01:50 (Neurontin) 400 mg TID PO 10/05/16 09:00 UNV (Glucotrol) 5 mg BIDAC PO 10/05/16 16:00 UNV (Sixes 5-325 Mg) 1 tab Q4H PRN PO 10/05/16 09:00 UNV (Prinivil) 10 mg DAILY PO 10/05/16 09:00 UNV (Ativan) 0.5 mg Q8H PRN PO 10/05/16 09:00 UNV Non-Formulary Medication 200 mg DAILY PO 10/05/16 09:00 UNV Family History NC Social History LIVES W FATHER; NO E/D, CIGS REMOTELY Physical Exam Vital Signs Vital Signs Date Time Temp Pulse Resp B/P Pulse Ox O2 Delivery O2 Flow Rate FiO2 10/05/16 04:00 96.8 94 20 161/72 96 10/05/16 02:20 90 15 140/68 96 Room Air 10/04/16 22:35 98 16 137/63 99 Room Air 10/04/16 18:47 98.2 90 17 162/81 96 Physical Exam GENERAL: desheveled, in no apparent distress. SKIN: bilat edema to legs, numerous open ulcers bilat ankles and feet, HEAD: Atraumatic. Normocephalic. No temporal or scalp tenderness. EYES: Pupils equal round and reactive. Extraocular motions intact. No scleral icterus. No injection or drainage. ENT: Nose without bleeding, purulent drainage or septal hematoma. Throat without erythema, tonsillar hypertrophy or exudate. Uvula midline. Airway patent. NECK: Trachea midline. No JVD or lymphadenopathy. Supple, nontender, no meningeal signs. CARDIOVASCULAR: Regular rate and rhythm without murmurs, gallops, or rubs. RESPIRATORY: Clear to auscultation. Breath sounds equal bilaterally. No wheezes , rales, or rhonchi. GASTROINTESTINAL: Abdomen soft, non-tender, nondistended. No hepato-splenomegaly , or palpable masses. No guarding. MUSCULOSKELETAL: bilat charcot's feet; open area on r ventral foot; rocker bottom feet bilat NEUROLOGICAL: Awake and alert. Cranial nerves II through XII intact. Motor and sensory grossly within normal limits. Five out of 5 muscle strength in all muscle groups. Normal speech. Laboratory Laboratory Tests Test 10/04/16 10/05/16 22:54 03:37 White Blood Count 12.6 11.7 Red Blood Count 2.89 2.92 Hemoglobin 8.3 8.3 Hematocrit 23.4 23.6 Mean Corpuscular Volume 81.0 80.8 Mean Corpuscular Hemoglobin 28.8 28.4 Mean Corpuscular Hemoglobin 35.5 35.1 Concent Red Cell Distribution Width 16.3 16.7 Platelet Count 301 310 Mean Platelet Volume 7.6 7.9 Neutrophils (%) (Auto) 74.7 74.2 Lymphocytes (%) (Auto) 15.2 13.2 Monocytes (%) (Auto) 5.7 7.5 Eosinophils (%) (Auto) 3.8 4.2 Basophils (%) (Auto) 0.6 0.9 Neutrophils # (Auto) 9.4 8.7 Lymphocytes # (Auto) 1.9 1.5 Monocytes # (Auto) 0.7 0.9 Eosinophils # (Auto) 0.5 0.5 Basophils # (Auto) 0.1 0.1 CBC Comment DIFF FINAL DIFF FINAL Differential Comment Sodium Level 117 119 Potassium Level 4.6 4.8 Chloride Level 84 85 Carbon Dioxide Level 21.5 24.4 Anion Gap 12 10 Blood Urea Nitrogen 24 24 Creatinine 1.39 1.30 Estimat Glomerular Filtration 53 58 Rate Random Glucose 61 96 Calcium Level 8.6 8.7 Result Diagram: 10/05/1633610/05/16336 Assessment and Plan Problem List: (1) Sepsis Status: Resolved (2) Impaired mobility and activities of daily living Status: Acute (3) Other specified diabetes mellitus with diabetic peripheral angiopathy without gangrene Status: Chronic (4) Morbid obesity with BMI of 45.0-49.9, adult Status: Chronic (5) 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 Status: Chronic (6) Ulcer of right lower extremity Status: Chronic (7) Uncontrolled diabetes mellitus Status: Acute (8) Hyponatremia Status: Acute (9) Acute renal failure Status: Acute (10) Peripheral neuropathy Status: Acute (11) Renal insufficiency Status: Acute (12) Schizophrenia Status: Chronic (13) Hypertension Status: Chronic (14) Obesity Status: Chronic (15) ETOH abuse Status: Chronic (16) Chronic disease anemia Status: Acute (17) CKD (chronic kidney disease) stage 3, GFR 30-59 ml/min Status: Acute (18) Abscess of right foot Status: Acute (19) Charcot foot due to diabetes mellitus Status: Chronic (20) Cellulitis of left foot Status: Chronic (21) Noncompliance Status: Acute Plan: IVF IV ABX, ZOSYN IV LASIX INSULIN HEPARIN BID PT OT CM CONSULT DPM CONSULT PSYCH CONSULT PT HAS BEEN OBS FOR ONE MN. INPT ADMIT FOR THE ABOVE DX AND PLAN. EXPECT FOUR DAYS INPT STAY. PT WOULD PASS W/O INPT ADMIT. DC TO SNF DISPO: BACK TO [facility] WHEN STABLE, FATHER DOES NOT WANT HIM BACK HOME AT THIS POINT. Problem Qualifiers (1) Schizophrenia: Qualified Code: F20.89 - Other schizophrenia Jack Rod MD Oct 05, 2016 08:57
[2016-10-05] MEDS ORDERED: LORazepam 0.5 MG TAB PO PRN (09:00)
[2016-10-05] MEDS: FUROSEMIDE 40 MG/4 ML VIAL IV PUSH SCH (09:06)
[2016-10-05] MEDS ORDERED: PROCHLORPERAZINE 25 MG SUPP PR PRN (09:15)
[2016-10-05] MEDS ORDERED: SODIUM CHLORIDE 0.9% FLUSH 5 ML FLUSH FLUSH PRN (09:15)
[2016-10-05] MEDS ORDERED: SENNOSIDES 8.6 MG TAB PO PRN (09:15)
[2016-10-05] MEDS ORDERED: NALOXONE HCL 0.4 MG/ML AMP IV PRN (09:15)
[2016-10-05] MEDS ORDERED: BISACODYL 10 MG SUPP PR PRN (09:15)
[2016-10-05] MEDS ORDERED: ONDANSETRON HCL 4 MG/2 ML VIAL IVP PRN (09:15)
[2016-10-05] MEDS ORDERED: ACETAMINOPHEN 325 MG TAB PO PRN (09:15)
[2016-10-05] MEDS ORDERED: ZOLPIDEM TARTRATE 5 MG TAB PO PRN (09:15)
[2016-10-05] MEDS: LISINOPRIL 10 MG TAB PO SCH (10:37)
[2016-10-05] MEDS: ACETAMINOPHEN/HYDROcodone 325 MG/5 MG TAB PO PRN ×2 (10:37→19:48)
[2016-10-05] MEDS: GABAPENTIN 400 MG CAP PO SCH ×3 (10:37→16:33)
[2016-10-05] MEDS ORDERED: THIORIDAZINE PO SCH (11:00)
[2016-10-05] MEDS ORDERED: PIPERACIL-TAZO 3.375 GM PREMIX 50 ML IV SCH (11:00)
[2016-10-05] MEDS: DOCUSATE SODIUM 100 MG CAP PO SCH ×2 (11:12→19:48)
[2016-10-05] MEDS: HEPARIN SODIUM - SQ 10,000 UNITS/ML VIAL SQ SCH (11:13)
[2016-10-05] MEDS: PIPERACIL-TAZO 3.375 GM PREMIX 50 ML IV SCH ×2 (11:13→16:33)
--- NOTE | 2016-10-05 15:49 | PD.CONS ---
Provisional Diagnosis Admission Date Oct 04, 2016 at 23:46 [place]. Chronic schizophrenia History of Present Illness Service Psychiatry Consult Requested By Primary Care Physician Jack Rod MD HPI The patient is a 56-year-old man, domiciled with his father, unemployed, on SSI, with extensive psychiatric history of schizophrenia, multiple hospitalizations in the past, he has been stable Thioridazine 200 mg daily for many years, his last hospitalizations was in the 90s, no previous suicide attempts, medical history of diabetes, bilateral diabetic foot ulcers, admitted due to severe hyponatremia. Consulted to psychiatry for assessment of capacity. On psychiatric evaluation patient was calm and cooperative, he explains that he has been stable of his schizophrenic condition for several years, he has been taking thioridazine 200 mg daily prescribed by Dr. Sanchez in [place], patient denies depressive symptoms, denies anxiety, denies perceptual disturbances, denies monica. Patient's history logical, coherent, however circumstantial and concrete. He denies paranoia, delusions, ideas of reference, thought controlling. Patient is fully oriented 3, no gross cognitive impairment observed. Patient explains that in the 80s and 90s he had multiple psychiatric hospitalizations due to psychotic decompensation, but police in the last 10 years he has a need any hospitalization and he has been Stable his current psychotropics. Patient says that he has been suggested to change to the newer medications, but he has refused because so far he has been successfully treated with this medication. He denies using alcohol, he denies using illegal drugs. Patient says that at this moment he understands that he is medically ill, he admits the importance of following medical recommendations and treatment. Review of Systems Constitutional: DENIES: Diaphoretic episodes, Fatigue, Fever, Weight gain, Weight loss, Chills, Dizziness, Change in appetite, Night Sweats Endocrine: DENIES: Heat/cold intolerance, Polydipsia, Polyuria, Polyphagia Eyes: DENIES: Blurred vision, Diplopia, Eye inflammation, Eye pain, Vision loss , Photosensitivity, Double Vision Ears, nose, mouth, throat: DENIES: Tinnitus, Hearing loss, Vertigo, Nasal discharge, Oral lesions, Throat pain, Hoarseness, Ear Pain, Running Nose, Epistaxis, Sinus Pain, Toothache, Odynophagia Respiratory: DENIES: Apneas, Cough, Snoring, Wheezing, Hemoptysis, Sputum production, Shortness of breath Cardiovascular: DENIES: Chest pain, Palpitations, Syncope, Dyspnea on Exertion , PND, Lower Extremity Edema, Orthopnea, Claudication Gastrointestinal: DENIES: Abdominal pain, Black stools, Bloody stools, Constipation, Diarrhea, Nausea, Vomiting, Difficulty Swallowing, Anorexia Musculoskeletal: COMPLAINS OF: Joint pain Integumentary: DENIES: Abnormal pigmentation, Nail changes, Pruritus, Rash Neurologic: DENIES: Abnormal gait, Headache, Localized weakness, Paresthesias, Seizures, Speech Problems, Tremor, Poor Balance Psychiatric: DENIES: Anxiety, Confusion, Mood changes, Depression, Hallucinations, Agitation, Suicidal Ideation, Homicidal Ideation, Delusions Past Family Social History Coded Allergies: Haldol (Verified Allergy, Severe, BLINDNESS, 09/29/16) Vancomycin (Verified Allergy, Severe, 09/29/16) Levaquin (Verified Allergy, Intermediate, Cramping, 09/29/16) Prolixin (Verified Allergy, Unknown, "PARKINSONIAN SHACKS", 09/29/16) *MDRO Multi-Drug Resistant Organism (Verified Adverse Reaction, Unknown, VRE, 09/29/16) 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 Active Scripts Furosemide (Lasix)40 Mg Tab40 Mg PO DAILY #30 TAB Ref 11 Prov:Jack Rod MD 09/24/16 Lorazepam (Ativan)0.5 Mg Tab0.5 Mg PO Q8H PRN (SEVERE ANXIETY OR AGITATION) #90 TAB Ref 0 Prov:Jack Rod MD 09/23/16 Hydrocodone-Acetaminophen 5-325 mg Tab1 Tab PO Q4H PRN (PAIN GREATER THAN 5) # 90 TAB Ref 0 Prov:Jack Rod MD 09/23/16 Insulin Aspart Inj (Novolog Inj)100 Unit/Ml Inj1 Units SQ ACHS SLIDING SCALE 90 Days Prov:Jack Rod MD 08/28/16 Reported Medications Glipizide 5 Mg Tab5 Mg PO BIDAC #60 TAB Ref 0 Take 30 minutes before a meal 09/15/16 Lisinopril 10 Mg Tab10 Mg PO DAILY #30 TAB Ref 0 08/10/16 Gabapentin (Neurontin)400 Mg [id number] Mg PO TID #30 CAP Ref 0 08/10/[address] (Aspirin 81)81 Mg Tabdr81 Mg PO DAILY Ref 0 08/10/16 Thioridazine 100 Mg [id number] Mg PO DAILY #30 TAB Ref 0 08/10/16 Current Medications Medications (Trade) Dose Ordered Sig/Portia Route Start Time Stop Time Status Last Admin (D50w (Vial) Inj) 25 ml UNSCH PRN IV PUSH 10/04/16 23:45 (Glucagon Inj) 1 mg UNSCH PRN OTHER 10/04/16 23:45 Furosemide 40 mg 40 mg DAILY IV PUSH 10/05/16 09:00 10/05/16 09:06 (NS 1000 ml Inj) 1,000 ml @ 5 mls/hr Q24H IV 10/05/16 01:30 10/05/16 01:50 (Neurontin) 400 mg TID PO 10/05/16 10:00 10/05/16 10:37 (Glucotrol) 5 mg BIDAC PO 10/05/16 16:00 ([place] 5-325 Mg) 1 tab Q4H PRN PO 10/05/16 09:00 10/05/16 10:37 (Prinivil) 10 mg DAILY PO 10/05/16 10:00 10/05/16 10:37 (Ativan) 0.5 mg Q8H PRN PO 10/05/16 09:00 Patient Own Medication PT OWN MED: THIORIDAZINE 200 MG... DAILY PO 10/05/16 11:00 Hold (NS Flush) 2 ml UNSCH PRN FLUSH 10/05/16 09:15 (NS Flush) 2 ml BID FLUSH 10/05/16 21:00 (Tylenol) 650 mg Q4H PRN PO 10/05/16 09:15 (Zofran Inj) 4 mg Q6H PRN IVP 10/05/16 09:15 (Compazine Supp) 25 mg Q12H PRN IN 10/05/16 09:15 (Dulcolax Supp) 10 mg DAILY PRN IN 10/05/16 09:15 (Colace) 100 mg Q12HR PO 10/05/16 11:00 10/05/16 11:12 (Milk Of Magnesia Liq) 30 ml Q12H PRN PO 10/05/16 09:15 (Senokot) 17.2 mg Q12H PRN PO 10/05/16 09:15 (Ambien) 5 mg HS PRN PO 10/05/16 09:15 (Heparin Inj) 5,000 units Q12H SQ 10/05/16 11:00 10/05/16 11:13 Naloxone HCl 0.4 mg 0.4 mg UNSCH PRN IV 10/05/16 09:15 (Zosyn 3.375 Gm Premix) 50 ml @ 100 mls/hr Q6H IV 10/05/16 12:00 10/05/16 11:13 Family History He denies Social History Patient was born and raised in [place], 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 His highest level of education is high school Physical Exam Vital Signs Vital Signs Date Time Temp Pulse Resp B/P Pulse Ox O2 Delivery O2 Flow Rate FiO2 10/05/16 12:34 97 21 10/05/16 08:00 97.0 86 18 133/67 10/05/16 02:20 Room Air Mental Status Examination Speech: Unremarkable Orientation: x3 Memory: Unremarkable Thought Process: Logical Thought Content: Unremarkable Hallucination Type: None Suicidal Ideation: No Previous Suicide Attempts: No Homicidal Ideation: No Previous Homicide Attempts: No Insight: Good, Fair Judgement: Unrealistic Affect: Good Mood: Appropriate Motor Activity: Normal gait Assessment & Plan Problem List: (1) Chronic schizophrenia Assessment & Plan: At the moment of this evaluation patient denies depressive symptoms, anxiety, perceptual disturbances, and monica, no delusions, paranoia, agitation, aggressive behavior, ideas of reference, flight of ideas, illogical thoughts or behavior could be elicited during this evaluation. Patient has extensive history of chronic schizophrenia, seems to be stable in an old antipsychotic, thioridazine 200 mg daily prescribed by outpatient psychiatrist, and as per this evaluation patient does not seem to meet criteria for inpatient psychiatric admission. Since patient at this moment is agreeing to continue with hospitalization, follow medical recommendations and is motivated to continue his medical treatment, assessment of capacity doesn't seem to be applicable, however I understand that due to the poor judgment of the patient, most probably secondary to his chronic schizophrenia, at any moment and assessment of capacity might be needed, as capacity can change from moment to moment. In that case if you have any question, or you want me to assess capacity for any specific medical issue, this contact me to my cellphone, . I would make sure that the patient is taking his thioridazine daily, remember that this antipsychotic is very was known by increasing QTC interval sometimes in more than 30ms. Extensive psychoeducation, motivational support was provided. Consult appreciated. ICD Code: F20.9 Assessment & Plan Estimated LOS: Rasheed Mcdonald MD Oct 05, 2016 15:49
--- NOTE | 2016-10-05 16:24 | PD.CONS ---
History of Present Illness Service Podiatry Consult Requested By Reason for Consult [facility] Primary Care Physician Jack Rod MD Diagnoses: History of Present Illness 56 Y CM, PT SIGNED OUT AMA THREE DAYS AGO. PT SUPPOSED TO GO BACK TO [facility]. PT ENDED UP LEAVING AND GOING TO HIS ELDER FATHER'S HOME. PT PRESENTED BACK TO THE ER WITH FOOT PAIN COMPLAINTS, AND WEAKNESS. PT C/O SEVERE LEG PAIN AND EDEMA. I WAS CALLED BY THE ER MD FOR ADMIT. PT WITH DOG HAIR AND UNKEPT WOUNDS AND HIS FATHER WAS CALLING THE ER AND REPORTS THAT HE IS UNABLE TO HELP HIM AT HOME ANY LONGER. Pt seen by podiatry on floor with both legs dressed, mild confusion about history but alert and oriented and responsive Past Family Social History Allergies: Coded Allergies: Haldol (Verified Allergy, Severe, BLINDNESS, 09/29/16) Vancomycin (Verified Allergy, Severe, 09/29/16) Levaquin (Verified Allergy, Intermediate, Cramping, 09/29/16) Prolixin (Verified Allergy, Unknown, "PARKINSONIAN SHACKS", 09/29/16) *MDRO Multi-Drug Resistant Organism (Verified Adverse Reaction, Unknown, VRE, 09/29/16) 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 Physical Exam Vital Signs Vital Signs Date Time Temp Pulse Resp B/P Pulse Ox O2 Delivery O2 Flow Rate FiO2 10/05/16 12:34 97 21 10/05/16 08:00 97.0 86 18 133/67 97 10/05/16 04:00 96.8 94 20 161/72 96 10/05/16 02:20 90 15 140/68 96 Room Air 10/04/16 22:35 98 16 137/63 99 Room Air 10/04/16 18:47 98.2 90 17 162/81 96 Physical Exam GENERAL: This is a well-nourished, well-developed patient, in no apparent distress. SKIN: No rashes, ecchymoses or lesions. Cool and dry. HEAD: Atraumatic. Normocephalic. No temporal or scalp tenderness. EYES: Pupils equal round and reactive. Extraocular motions intact. No scleral icterus. No injection or drainage. ENT: Nose without bleeding, purulent drainage or septal hematoma. Throat without erythema, tonsillar hypertrophy or exudate. Uvula midline. Airway patent. NECK: Trachea midline. No JVD or lymphadenopathy. Supple, nontender, no meningeal signs. CARDIOVASCULAR: Regular rate and rhythm without murmurs, gallops, or rubs. RESPIRATORY: Clear to auscultation. Breath sounds equal bilaterally. No wheezes , rales, or rhonchi. GASTROINTESTINAL: Abdomen soft, non-tender, nondistended. No hepato-splenomegaly , or palpable masses. No guarding. MUSCULOSKELETAL: Extremities without clubbing, cyanosis, or edema. No joint tenderness, effusion, or edema noted. No calf tenderness. Negative Homans sign bilaterally. NEUROLOGICAL: Awake and alert. Cranial nerves II through XII intact. Motor and sensory grossly within normal limits. Five out of 5 muscle strength in all muscle groups. Normal speech. Laboratory Laboratory Tests Test 10/04/16 10/05/16 22:54 03:37 White Blood Count 12.6 11.7 Red Blood Count 2.89 2.92 Hemoglobin 8.3 8.3 Hematocrit 23.4 23.6 Mean Corpuscular Volume 81.0 80.8 Mean Corpuscular Hemoglobin 28.8 28.4 Mean Corpuscular Hemoglobin 35.5 35.1 Concent Red Cell Distribution Width 16.3 16.7 Platelet Count 301 310 Mean Platelet Volume 7.6 7.9 Neutrophils (%) (Auto) 74.7 74.2 Lymphocytes (%) (Auto) 15.2 13.2 Monocytes (%) (Auto) 5.7 7.5 Eosinophils (%) (Auto) 3.8 4.2 Basophils (%) (Auto) 0.6 0.9 Neutrophils # (Auto) 9.4 8.7 Lymphocytes # (Auto) 1.9 1.5 Monocytes # (Auto) 0.7 0.9 Eosinophils # (Auto) 0.5 0.5 Basophils # (Auto) 0.1 0.1 CBC Comment DIFF FINAL DIFF FINAL Differential Comment Sodium Level 117 119 Potassium Level 4.6 4.8 Chloride Level 84 85 Carbon Dioxide Level 21.5 24.4 Anion Gap 12 10 Blood Urea Nitrogen 24 24 Creatinine 1.39 1.30 Estimat Glomerular Filtration 53 58 Rate Random Glucose 61 96 Calcium Level 8.6 8.7 Result Diagram: 10/05/1633610/05/16336 Course B/L Dp and PT pulses palpable Sensation loss b/l feet to mid calf Foot deformity noted bilateral with rocker bottom midfoot deformity Mild edema, no streaking or redness Wound 1-Left platar foot- [id number] ulcer, hypergranular base, no probe to bone, indurated border, no drainage and no malodor Wound 2-Right plantar midfoot-2.5x2x1.5 cm, rolled indurated borders, no drainage no malodor no probe to bone Assessment and Plan Assessment and Plan Stable ulcer /l plantar arch with charcot rocker bottom foot deformity no indication for surgical need -I recommend good compression from toes to tibial tuberocity with dakins to wounds to keep clean daily per nursing -I dressed with dry dressing and Osei wrap -Patient will need to be PWB only as needed b/l feet in CAM boot I will order to offload ulcers and resist further breakdown -Pt will f/u with Dr. Boone upon D/C Thanks for consult Chaitanya Perez DPM Oct 05, 2016 16:24
[2016-10-05] MEDS: glipiZIDE 5 MG TAB PO SCH (16:33)
[2016-10-05] MEDS: SODIUM CHLORIDE 0.9% FLUSH 5 ML FLUSH FLUSH SCH (19:48)
[2016-10-06] VITALS (7 sets, daily range): BP systolic 96–145; BP diastolic 46–69; PULSE 75–85; RESP 18–20; TEMP 96.5–98.2; O2SAT 95–98
[2016-10-06] MEDS: PIPERACIL-TAZO 3.375 GM PREMIX 50 ML IV SCH ×4 (00:05→17:34)
[2016-10-06] MEDS: HEPARIN SODIUM - SQ 10,000 UNITS/ML VIAL SQ SCH ×2 (00:06→12:01)
[2016-10-06] MEDS: glipiZIDE 5 MG TAB PO SCH ×2 (05:04→16:04)
[2016-10-06] MEDS: ACETAMINOPHEN/HYDROcodone 325 MG/5 MG TAB PO PRN ×4 (05:04→17:34)
[2016-10-06] MEDS: LOW DOSE INSULIN NOVOLOG SUPPLEMENTAL SCALE SQ SCH ×4 (05:04→19:47)
[2016-10-06 08:23] LABS: BICARBONATE 27.9 MEQ/L (21.0-32.0)
[2016-10-06 08:25] LABS: AUTOMATED NEUTROPHIL # 6.1 TH/MM3 (1.8-7.7); BASOPHIL # 0.1 TH/MM3 (0-0.2); EOSINOPHIL # 0.3 TH/MM3 (0-0.4); EOSINOPHIL % 3.4 % (0.0-4.0); HEMATOCRIT 21.6 % (39.0-51.0); HEMO FLAGS DIFF FINAL; LYMPH % 17.3 % (9.0-44.0); LYMPHOCYTE # 1.6 TH/MM3 (1.0-4.8); MEAN CELL VOLUME 81.7 FL (80.0-100.0); MEAN CORPUSCULAR HEMOGLOBIN 28.8 PG (27.0-34.0); MEAN CORPUSCULAR HGB CONC 35.3 % (32.0-36.0); MONO % 10.1 % (0.0-8.0); NEUT % 68.2 % (16.0-70.0); PLATELET COUNT 363 TH/MM3 (150-450); RED BLOOD COUNT 2.65 MIL/MM3 (4.50-5.90); RED CELL DISTRIBUTION WIDTH 16.3 % (11.6-17.2)
--- NOTE | 2016-10-06 09:21 | HHI.FPPN ---
Subjective Remarks C/O FEET PAIN C/O WEAKNESS C/O LB PAIN D/W RN Objective Vitals Vital Signs Date Time Temp Pulse Resp B/P Pulse Ox O2 Delivery O2 Flow Rate FiO2 10/06/16 04:00 97.1 75 18 139/63 96 10/06/16 00:00 96.5 81 20 96/46 96 10/05/16 20:00 96.6 89 20 123/63 98 10/05/16 19:53 96 21 10/05/16 19:44 90 10/05/16 16:00 97.8 80 18 154/70 97 10/05/16 12:34 97 21 10/05/16 12:00 97.6 89 20 162/70 95 I/O 10/05/16 10/05/16 10/05/16 10/06/16 10/06/16 10/06/16 07:00 15:00 23:00 07:00 15:00 23:00 Intake Total 260 ml 1400 ml 370 ml 580 ml Output Total 1700 ml 900 ml Balance 260 ml -300 ml 370 ml -320 ml Intake Oral 260 ml 1200 ml 320 ml 480 ml IV Total 200 ml 50 ml 100 ml Output Urine Total 1700 ml 900 ml # Voids 3 1 # Bowel Movements 0 0 0 0 Result Diagram: 10/06/16 0710 10/06/16 0710 Objective Remarks GENERAL: SKIN: Warm and dry. HEAD: Atraumatic. Normocephalic. EYES: Pupils equal and round. No scleral icterus. No injection or drainage. ENT: No nasal bleeding or discharge. Mucous membranes pink and moist. NECK: Trachea midline. No JVD. CARDIOVASCULAR: Regular rate and rhythm. RESPIRATORY: No accessory muscle use. Clear to auscultation. Breath sounds equal bilaterally. GASTROINTESTINAL: Abdomen soft, non-tender, nondistended. Hepatic and splenic margins not palpable. MUSCULOSKELETAL: B BOOTS NEUROLOGICAL: Awake and alert. No obvious cranial nerve deficits. Motor grossly within normal limits. 2 out of 5 muscle strength in the arms and legs. Normal speech. PSYCHIATRIC: Appropriate mood and affect; insight and judgment normal. Medications and IVs Current Medications Medications (Trade) Dose Ordered Sig/Portia Route Start Time Stop Time Status Last Admin (D50w (Vial) Inj) 25 ml UNSCH PRN IV PUSH 10/04/16 23:45 (Glucagon Inj) 1 mg UNSCH PRN OTHER 10/04/16 23:45 Furosemide 40 mg 40 mg DAILY IV PUSH 10/05/16 09:00 10/05/16 09:06 (NS 1000 ml Inj) 1,000 ml @ 5 mls/hr Q24H IV 10/05/16 01:30 10/05/16 19:51 (Neurontin) 400 mg TID PO 10/05/16 10:00 10/05/16 16:33 (Glucotrol) 5 mg BIDAC PO 10/05/16 16:00 10/06/16 05:04 ([place] 5-325 Mg) 1 tab Q4H PRN PO 10/05/16 09:00 10/06/16 05:04 (Prinivil) 10 mg DAILY PO 10/05/16 10:00 10/05/16 10:37 (Ativan) 0.5 mg Q8H PRN PO 10/05/16 09:00 Patient Own Medication PT OWN MED: THIORIDAZINE 200 MG... DAILY PO 10/05/16 11:00 Hold (NS Flush) 2 ml UNSCH PRN FLUSH 10/05/16 09:15 (NS Flush) 2 ml BID FLUSH 10/05/16 21:00 10/05/16 19:48 (Tylenol) 650 mg Q4H PRN PO 10/05/16 09:15 (Zofran Inj) 4 mg Q6H PRN IVP 10/05/16 09:15 (Compazine Supp) 25 mg Q12H PRN ND 10/05/16 09:15 (Dulcolax Supp) 10 mg DAILY PRN ND 10/05/16 09:15 (Colace) 100 mg Q12HR PO 10/05/16 11:00 10/05/16 19:48 (Milk Of Magnesia Liq) 30 ml Q12H PRN PO 10/05/16 09:15 (Senokot) 17.2 mg Q12H PRN PO 10/05/16 09:15 (Ambien) 5 mg HS PRN PO 10/05/16 09:15 (Heparin Inj) 5,000 units Q12H SQ 10/05/16 11:00 10/06/16 00:06 Naloxone HCl 0.4 mg 0.4 mg UNSCH PRN IV 10/05/16 09:15 (Zosyn 3.375 Gm Premix) 50 ml @ 100 mls/hr Q6H IV 10/05/16 12:00 10/06/16 05:04 A/P Problem List: (1) Acute blood loss anemia Status: Acute (2) GI bleed Status: Acute (3) Acute renal failure Status: Acute (4) Peripheral neuropathy Status: Acute (5) Renal insufficiency Status: Acute (6) Schizophrenia Status: Chronic (7) Hypertension Status: Chronic (8) Obesity Status: Chronic (9) ETOH abuse Status: Chronic (10) Chronic disease anemia Status: Acute (11) DM (diabetes mellitus) Status: Chronic (12) CKD (chronic kidney disease) stage 3, GFR 30-59 ml/min Status: Acute (13) Osteomyelitis of ankle or foot Status: Acute (14) Abscess of right foot Status: Acute (15) Charcot foot due to diabetes mellitus Status: Chronic (16) Cellulitis of left foot Status: Chronic (17) Noncompliance Status: Acute (18) Type 2 diabetes mellitus with foot ulcer Status: Chronic (19) Impaired mobility and activities of daily living Status: Acute (20) Other specified diabetes mellitus with diabetic peripheral angiopathy without gangrene Status: Chronic (21) Hyponatremia Status: Acute (22) Uncontrolled diabetes mellitus Status: Acute (23) Morbid obesity with BMI of 45.0-49.9, adult Status: Chronic (24) 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 s/p I AND D BILAT FEET SEP 20, CERETEC SCAN L FOOT CELLULITIS Charcot's, bilateral. Diabetes uncontrolled. FALL HEAD INJURY AND KNEE ABRASIONS GASTRITIS ON EGD SEP 18, ANEMIA, ACUTE BLOOD LOSS AND HX ACD. TRANSFUSED. Acute renal failure, d/t sepsis CKD 2 Hyponatremia d/t polydypsia, thorazine, hyperglycemia. EDEMA, SEVERE Schizoprenia Alcoholism HTN DM Peripheral neuropathy Noncompliance. PT understands will likely lose limbs if continues to remain noncompliant with elev of legs. PLAN: IVF IV ABX, ZOSYN IV LASIX INSULIN HEPARIN BID PT OT BOOTS BILAT PWB GI CONSULT CM CONSULT DPM CONSULT PSYCH CONSULT Problem Qualifiers (1) Schizophrenia: Qualified Code: F20.89 - Other schizophrenia Jack Rod MD Oct 06, 2016 09:21
[2016-10-06] MEDS: FUROSEMIDE 40 MG/4 ML VIAL IV PUSH SCH (09:34)
[2016-10-06] MEDS: GABAPENTIN 400 MG CAP PO SCH ×3 (09:34→17:34)
[2016-10-06] MEDS: LISINOPRIL 10 MG TAB PO SCH (09:34)
[2016-10-06] MEDS: DOCUSATE SODIUM 100 MG CAP PO SCH ×2 (09:34→19:47)
[2016-10-06] MEDS: SODIUM CHLORIDE 0.9% FLUSH 5 ML FLUSH FLUSH SCH ×2 (09:34→19:47)
[2016-10-06] MEDS: THIORIDAZINE HCL 100 MG PO SCH (15:30)
[2016-10-06] MEDS: MAGNESIUM HYDROXIDE SUSP 30 ML CUP PO PRN (21:28)
--- NOTE | 2016-10-06 23:02 | MB ---
cc: REILLY OBANDO M.D., RICHARD Patient of Dr. Rod. DATE OF CONSULTATION October 06, 2016 REASON FOR CONSULTATION Weight loss, anorexia and anemia. HISTORY OF PRESENT ILLNESS Mr. Yanes is a 56-year-old gentleman with schizophrenia, basically admitted for leg ulcerations. He was found to have worsening anemia. He says he has lost significant amount of weight but he tells me this is intentional. He says his bowels are moving fine. He is not having any bleeding or abdominal pain. PAST MEDICAL HISTORY Schizophrenia, diabetes, hyponatremia. PAST SURGICAL HISTORY Multiple I&Ds on his feet. Never had a colonoscopy before. REVIEW OF SYSTEMS Denies any abdominal pain or any GI symptoms. SOCIAL HISTORY No tobacco, no alcohol reported. FAMILY HISTORY The family history is noncontributory. LABORATORY DATA Labs reveal hemoglobin of 7.6 with an MCV of 81.7. Sodium 123, creatinine 1.54. IMPRESSION Anemia. RECOMMENDATIONS EGD, colonoscopy discussed with him. Initially he had refused but ultimately he has agreed to proceed with this procedure. He says he will do the bowel prep as directed. Continue to monitor his labs. Continue to correct electrolytes. The procedure is planned for early next week. Thank you for this referral. Reilly Obando MD HZ/EO /6:28 PM /10:54 PM
[2016-10-06] MEDS ORDERED: SODIUM HYPOCHLORITE 0.125% 500 ML BTL TOPICAL PRN (23:45)
[2016-10-07] VITALS (8 sets, daily range): BP systolic 120–164; BP diastolic 62–73; PULSE 76–87; RESP 18–20; TEMP 96.9–98.8; O2SAT 94–98
[2016-10-07] MEDS: ACETAMINOPHEN/HYDROcodone 325 MG/5 MG TAB PO PRN ×6 (00:04→23:45)
[2016-10-07] MEDS: HEPARIN SODIUM - SQ 10,000 UNITS/ML VIAL SQ SCH ×3 (00:04→23:42)
[2016-10-07] MEDS: PIPERACIL-TAZO 3.375 GM PREMIX 50 ML IV SCH ×5 (00:04→23:42)
[2016-10-07] MEDS: SODIUM CHLOR 0.9% 1000 ML INJ 1,000 ML IV SCH ×2 (00:12→23:43)
[2016-10-07] MEDS: glipiZIDE 5 MG TAB PO SCH ×2 (05:22→15:50)
[2016-10-07] MEDS: LOW DOSE INSULIN NOVOLOG SUPPLEMENTAL SCALE SQ SCH ×4 (05:24→20:34)
[2016-10-07] MEDS: GABAPENTIN 400 MG CAP PO SCH ×3 (08:40→17:09)
[2016-10-07] MEDS: LISINOPRIL 10 MG TAB PO SCH (08:40)
[2016-10-07] MEDS: DOCUSATE SODIUM 100 MG CAP PO SCH ×2 (08:40→20:34)
[2016-10-07] MEDS: THIORIDAZINE HCL 100 MG PO SCH (08:41)
[2016-10-07] MEDS: SODIUM CHLORIDE 0.9% FLUSH 5 ML FLUSH FLUSH SCH ×2 (08:41→20:34)
[2016-10-07] MEDS: FUROSEMIDE 40 MG/4 ML VIAL IV PUSH SCH (08:41)
--- NOTE | 2016-10-07 10:36 | HHI.FPPN ---
Subjective Remarks STABLE C/O GENL PAIN C/O FEET PAIN Objective Vitals Vital Signs Date Time Temp Pulse Resp B/P Pulse Ox O2 Delivery O2 Flow Rate FiO2 10/07/16 08:00 98.5 77 20 135/62 97 10/07/16 04:00 97.2 76 20 124/68 95 10/07/16 00:00 96.9 80 20 120/62 96 10/06/16 20:05 85 10/06/16 20:00 96.5 83 20 116/58 97 10/06/16 18:30 18 10/06/16 16:00 97.4 77 18 145/65 98 10/06/16 12:00 98.1 78 18 140/69 95 I/O 10/06/16 10/06/16 10/06/16 10/07/16 10/07/16 10/07/16 07:00 15:00 23:00 07:00 15:00 23:00 Intake Total 580 ml 2190 ml 640 ml 580 ml Output Total 900 ml 3600 ml 800 ml 1500 ml Balance -320 ml -1410 ml -160 ml -920 ml Intake Oral 480 ml 2120 ml 640 ml 480 ml IV Total 100 ml 70 ml 0 ml 100 ml Output Urine Total 900 ml 3600 ml 800 ml 1500 ml # Bowel Movements 0 0 0 0 Result Diagram: 10/06/1670910/06/16709 Objective Remarks GENERAL: SKIN: Warm and dry. HEAD: Atraumatic. Normocephalic. EYES: Pupils equal and round. No scleral icterus. No injection or drainage. ENT: No nasal bleeding or discharge. Mucous membranes pink and moist. NECK: Trachea midline. No JVD. CARDIOVASCULAR: Regular rate and rhythm. RESPIRATORY: No accessory muscle use. Clear to auscultation. Breath sounds equal bilaterally. GASTROINTESTINAL: Abdomen soft, non-tender, nondistended. Hepatic and splenic margins not palpable. MUSCULOSKELETAL: B BOOTS NEUROLOGICAL: Awake and alert. No obvious cranial nerve deficits. Motor grossly within normal limits. 2 out of 5 muscle strength in the arms and legs. Normal speech. PSYCHIATRIC: Appropriate mood and affect; insight and judgment normal. Medications and IVs Current Medications Medications (Trade) Dose Ordered Sig/Portia Route Start Time Stop Time Status Last Admin (D50w (Vial) Inj) 25 ml UNSCH PRN IV PUSH 10/04/16 23:45 (Glucagon Inj) 1 mg UNSCH PRN OTHER 10/04/16 23:45 Furosemide 40 mg 40 mg DAILY IV PUSH 10/05/16 09:00 10/07/16 08:41 (NS 1000 ml Inj) 1,000 ml @ 5 mls/hr Q24H IV 10/05/16 01:30 10/05/16 19:51 (Neurontin) 400 mg TID PO 10/05/16 10:00 10/07/16 08:40 (Glucotrol) 5 mg BIDAC PO 10/05/16 16:00 10/07/16 05:22 ([place] 5-325 Mg) 1 tab Q4H PRN PO 10/05/16 09:00 10/07/16 05:26 (Prinivil) 10 mg DAILY PO 10/05/16 10:00 10/07/16 08:40 (Ativan) 0.5 mg Q8H PRN PO 10/05/16 09:00 (NS Flush) 2 ml UNSCH PRN FLUSH 10/05/16 09:15 (NS Flush) 2 ml BID FLUSH 10/05/16 21:00 10/07/16 08:41 (Tylenol) 650 mg Q4H PRN PO 10/05/16 09:15 (Zofran Inj) 4 mg Q6H PRN IVP 10/05/16 09:15 (Compazine Supp) 25 mg Q12H PRN [place] 10/05/16 09:15 (Dulcolax Supp) 10 mg DAILY PRN [place] 10/05/16 09:15 (Colace) 100 mg Q12HR PO 10/05/16 11:00 10/07/16 08:40 (Milk Of Magnesia Liq) 30 ml Q12H PRN PO 10/05/16 09:15 10/06/16 21:28 (Senokot) 17.2 mg Q12H PRN PO 10/05/16 09:15 10/06/16 09:35 (Ambien) 5 mg HS PRN PO 10/05/16 09:15 (Heparin Inj) 5,000 units Q12H SQ 10/05/16 11:00 10/07/16 00:04 Naloxone HCl 0.4 mg 0.4 mg UNSCH PRN IV 10/05/16 09:15 (Zosyn 3.375 Gm Premix) 50 ml @ 100 mls/hr Q6H IV 10/05/16 12:00 10/07/16 05:22 (Mellaril) 200 mg DAILY PO 10/06/16 16:00 10/07/16 08:41 (Dakin'S 0.125% Soln) 500 ml UNSCH PRN TOPICAL 10/06/16 23:45 A/P Problem List: (1) Acute blood loss anemia Status: Acute (2) GI bleed Status: Acute (3) Acute renal failure Status: Acute (4) Peripheral neuropathy Status: Acute (5) Renal insufficiency Status: Acute (6) Schizophrenia Status: Chronic (7) Hypertension Status: Chronic (8) Obesity Status: Chronic (9) ETOH abuse Status: Chronic (10) Chronic disease anemia Status: Acute (11) DM (diabetes mellitus) Status: Chronic (12) CKD (chronic kidney disease) stage 3, GFR 30-59 ml/min Status: Acute (13) Osteomyelitis of ankle or foot Status: Acute (14) Abscess of right foot Status: Acute (15) Charcot foot due to diabetes mellitus Status: Chronic (16) Cellulitis of left foot Status: Chronic (17) Noncompliance Status: Acute (18) Type 2 diabetes mellitus with foot ulcer Status: Chronic (19) Impaired mobility and activities of daily living Status: Acute (20) Other specified diabetes mellitus with diabetic peripheral angiopathy without gangrene Status: Chronic (21) Hyponatremia Status: Acute (22) Uncontrolled diabetes mellitus Status: Acute (23) Morbid obesity with BMI of 45.0-49.9, adult Status: Chronic (24) 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 s/p I AND D BILAT FEET SEP 20, CERETEC SCAN HX L FOOT CELLULITIS Charcot's, bilateral. Diabetes uncontrolled. FALL HEAD INJURY AND KNEE ABRASIONS GASTRITIS ON EGD SEP 18, ANEMIA, ACUTE BLOOD LOSS AND HX ACD. TRANSFUSED. Acute renal failure, d/t sepsis CKD 2 Hyponatremia d/t polydypsia, thorazine, hyperglycemia. EDEMA, SEVERE Schizoprenia Alcoholism HTN DM Peripheral neuropathy Noncompliance. PT understands will likely lose limbs if continues to remain noncompliant with elev of legs. PLAN: SCOPE PENDING IVF IV ABX, ZOSYN IV LASIX INSULIN HEPARIN BID PT OT BOOTS BILAT PWB GI CONSULT CM CONSULT DPM CONSULT PSYCH CONSULT Problem Qualifiers (1) Schizophrenia: Qualified Code: F20.89 - Other schizophrenia Jack Rod MD Oct 07, 2016 10:36
[2016-10-07 11:05] LABS: AUTOMATED NEUTROPHIL # 5.9 TH/MM3 (1.8-7.7); BASOPHIL # 0.1 TH/MM3 (0-0.2); BASOPHIL % 0.8 % (0.0-2.0); EOSINOPHIL # 0.4 TH/MM3 (0-0.4); EOSINOPHIL % 4.4 % (0.0-4.0); HEMATOCRIT 22.4 % (39.0-51.0); HEMO FLAGS DIFF FINAL; LYMPH % 19.7 % (9.0-44.0); LYMPHOCYTE # 1.8 TH/MM3 (1.0-4.8); MEAN CELL VOLUME 82.4 FL (80.0-100.0); MEAN CORPUSCULAR HEMOGLOBIN 28.3 PG (27.0-34.0); MEAN CORPUSCULAR HGB CONC 34.4 % (32.0-36.0); MONO % 8.8 % (0.0-8.0); NEUT % 66.3 % (16.0-70.0); PLATELET COUNT 388 TH/MM3 (150-450); RED BLOOD COUNT 2.71 MIL/MM3 (4.50-5.90); RED CELL DISTRIBUTION WIDTH 16.6 % (11.6-17.2); WHITE BLOOD COUNT 8.9 TH/MM3 (4.0-11.0)
[2016-10-07 12:07] LABS: BICARBONATE 26.9 MEQ/L (21.0-32.0); POTASSIUM 4.7 MEQ/L (3.5-5.1)
[2016-10-07] MEDS: MAGNESIUM HYDROXIDE SUSP 30 ML CUP PO PRN (20:51)
[2016-10-08] VITALS (7 sets, daily range): BP systolic 94–159; BP diastolic 54–72; PULSE 70–87; RESP 17–20; TEMP 96.1–98.2; O2SAT 92–100
[2016-10-08] MEDS: LACTATED RINGER'S 1000 ML IV SCH (04:59)
[2016-10-08] MEDS: glipiZIDE 5 MG TAB PO SCH ×2 (04:59→17:36)
[2016-10-08] MEDS: PIPERACIL-TAZO 3.375 GM PREMIX 50 ML IV SCH ×3 (04:59→17:36)
[2016-10-08] MEDS: LOW DOSE INSULIN NOVOLOG SUPPLEMENTAL SCALE SQ SCH ×4 (04:59→20:54)
[2016-10-08 08:52] LABS: AUTOMATED NEUTROPHIL # 4.8 TH/MM3 (1.8-7.7); BASOPHIL # 0.1 TH/MM3 (0-0.2); BASOPHIL % 1.3 % (0.0-2.0); EOSINOPHIL # 0.4 TH/MM3 (0-0.4); EOSINOPHIL % 5.2 % (0.0-4.0); HEMATOCRIT 22.6 % (39.0-51.0); LYMPH % 24.1 % (9.0-44.0); MEAN CELL VOLUME 81.5 FL (80.0-100.0); MEAN CORPUSCULAR HEMOGLOBIN 29.3 PG (27.0-34.0); MONO % 11.8 % (0.0-8.0); NEUT % 57.6 % (16.0-70.0); PLATELET COUNT 399 TH/MM3 (150-450); RED BLOOD COUNT 2.77 MIL/MM3 (4.50-5.90); RED CELL DISTRIBUTION WIDTH 16.8 % (11.6-17.2); WHITE BLOOD COUNT 8.4 TH/MM3 (4.0-11.0)
[2016-10-08 08:54] LABS: HEMO FLAGS AUTO DIFF
[2016-10-08] MEDS: FUROSEMIDE 40 MG/4 ML VIAL IV PUSH SCH (09:02)
[2016-10-08] MEDS: THIORIDAZINE HCL 100 MG PO SCH (09:02)
[2016-10-08] MEDS: SODIUM CHLORIDE 0.9% FLUSH 5 ML FLUSH FLUSH SCH ×2 (09:03→20:53)
[2016-10-08] MEDS: DOCUSATE SODIUM 100 MG CAP PO SCH ×2 (09:03→20:53)
[2016-10-08] MEDS: LISINOPRIL 10 MG TAB PO SCH (09:03)
[2016-10-08] MEDS: GABAPENTIN 400 MG CAP PO SCH ×3 (09:03→17:35)
[2016-10-08] MEDS: ACETAMINOPHEN/HYDROcodone 325 MG/5 MG TAB PO PRN ×3 (09:08→20:55)
[2016-10-08 09:37] LABS: SCAN/DIFF AUTO DIFF CONFIRMED
[2016-10-08 09:41] LABS: BICARBONATE 26.9 MEQ/L (21.0-32.0); POTASSIUM 4.3 MEQ/L (3.5-5.1)
[2016-10-08] MEDS: HEPARIN SODIUM - SQ 10,000 UNITS/ML VIAL SQ SCH ×2 (11:00→23:00)
--- NOTE | 2016-10-08 11:52 | HHI.FPPN ---
Subjective Remarks IN PREOP WAITING FOR SCOPE C/O HUNGER AGITATED D/W RN Objective Vitals Vital Signs Date Time Temp Pulse Resp B/P Pulse Ox O2 Delivery O2 Flow Rate FiO2 10/08/16 10:15 96.1 76 18 129/60 92 10/08/16 08:00 96.1 76 18 129/60 92 10/08/16 06:09 98.2 78 20 122/66 96 10/08/16 00:00 97.8 78 20 159/72 95 10/07/16 20:14 81 10/07/16 20:00 98.2 87 20 164/70 98 10/07/16 16:00 97.5 82 18 127/73 97 10/07/16 12:00 98.8 79 19 129/69 98 I/O 10/07/16 10/07/16 10/07/16 10/08/16 10/08/16 10/08/16 07:00 15:00 23:00 07:00 15:00 23:00 Intake Total 580 ml 240 ml 740 ml 460 ml Output Total 1500 ml 2250 ml 1250 ml 500 ml 550 ml Balance -920 ml -2010 ml -510 ml -40 ml -550 ml Intake Oral 480 ml 240 ml 740 ml 360 ml IV Total 100 ml 0 ml 100 ml Output Urine Total 1500 ml 2250 ml 1250 ml 500 ml 550 ml # Voids 2 1 # Bowel Movements 0 0 0 2 Result Diagram: 10/08/1640 10/08/1640 Objective Remarks GENERAL: SKIN: Warm and dry. HEAD: Atraumatic. Normocephalic. EYES: Pupils equal and round. No scleral icterus. No injection or drainage. ENT: No nasal bleeding or discharge. Mucous membranes pink and moist. NECK: Trachea midline. No JVD. CARDIOVASCULAR: Regular rate and rhythm. RESPIRATORY: No accessory muscle use. Clear to auscultation. Breath sounds equal bilaterally. GASTROINTESTINAL: Abdomen soft, non-tender, nondistended. Hepatic and splenic margins not palpable. MUSCULOSKELETAL: B BOOTS. L FOOT DORSUM W CELLULITIS 8 CM DIAM NEUROLOGICAL: Awake and alert. No obvious cranial nerve deficits. Motor grossly within normal limits. 2 out of 5 muscle strength in the arms and legs. Normal speech. PSYCHIATRIC: Appropriate mood and affect; insight and judgment normal. Medications and IVs Current Medications Medications (Trade) Dose Ordered Sig/Portia Route Start Time Stop Time Status Last Admin (D50w (Vial) Inj) 25 ml UNSCH PRN IV PUSH 10/04/16 23:45 (Glucagon Inj) 1 mg UNSCH PRN OTHER 10/04/16 23:45 Furosemide 40 mg 40 mg DAILY IV PUSH 10/05/16 09:00 10/08/16 09:02 (NS 1000 ml Inj) 1,000 ml @ 5 mls/hr Q24H IV 10/05/16 01:30 10/07/16 23:43 (Neurontin) 400 mg TID PO 10/05/16 10:00 10/08/16 09:03 (Glucotrol) 5 mg BIDAC PO 10/05/16 16:00 10/07/16 15:50 ([place] 5-325 Mg) 1 tab Q4H PRN PO 10/05/16 09:00 10/08/16 09:08 (Prinivil) 10 mg DAILY PO 10/05/16 10:00 10/08/16 09:03 (Ativan) 0.5 mg Q8H PRN PO 10/05/16 09:00 (NS Flush) 2 ml UNSCH PRN FLUSH 10/05/16 09:15 (NS Flush) 2 ml BID FLUSH 10/05/16 21:00 10/08/16 09:03 (Tylenol) 650 mg Q4H PRN PO 10/05/16 09:15 (Zofran Inj) 4 mg Q6H PRN IVP 10/05/16 09:15 (Compazine Supp) 25 mg Q12H PRN [place] 10/05/16 09:15 (Dulcolax Supp) 10 mg DAILY PRN [place] 10/05/16 09:15 (Colace) 100 mg Q12HR PO 10/05/16 11:00 10/08/16 09:03 (Milk Of Magnesia Liq) 30 ml Q12H PRN PO 10/05/16 09:15 10/07/16 20:51 (Senokot) 17.2 mg Q12H PRN PO 10/05/16 09:15 10/06/16 09:35 (Ambien) 5 mg HS PRN PO 10/05/16 09:15 (Heparin Inj) 5,000 units Q12H SQ 10/05/16 11:00 10/07/16 23:42 Naloxone HCl 0.4 mg 0.4 mg UNSCH PRN IV 10/05/16 09:15 (Zosyn 3.375 Gm Premix) 50 ml @ 100 mls/hr Q6H IV 10/05/16 12:00 10/08/16 04:59 (Mellaril) 200 mg DAILY PO 10/06/16 16:00 10/08/16 09:02 Sodium Hypochlorite 500 ml 500 ml UNSCH PRN TOPICAL 10/06/16 23:45 (Lr 1000 ml Inj) 1,000 ml @ 30 mls/hr Q24H IV 10/08/16 03:00 10/08/16 04:59 A/P Problem List: (1) Acute blood loss anemia Status: Acute (2) GI bleed Status: Acute (3) Acute renal failure Status: Acute (4) Peripheral neuropathy Status: Acute (5) Renal insufficiency Status: Acute (6) Schizophrenia Status: Chronic (7) Hypertension Status: Chronic (8) Obesity Status: Chronic (9) ETOH abuse Status: Chronic (10) Chronic disease anemia Status: Acute (11) DM (diabetes mellitus) Status: Chronic (12) CKD (chronic kidney disease) stage 3, GFR 30-59 ml/min Status: Acute (13) Osteomyelitis of ankle or foot Status: Acute (14) Abscess of right foot Status: Acute (15) Charcot foot due to diabetes mellitus Status: Chronic (16) Cellulitis of left foot Status: Chronic (17) Noncompliance Status: Acute (18) Type 2 diabetes mellitus with foot ulcer Status: Chronic (19) Impaired mobility and activities of daily living Status: Acute (20) Other specified diabetes mellitus with diabetic peripheral angiopathy without gangrene Status: Chronic (21) Hyponatremia Status: Acute (22) Uncontrolled diabetes mellitus Status: Acute (23) Morbid obesity with BMI of 45.0-49.9, adult Status: Chronic (24) 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 s/p I AND D BILAT FEET SEP 20, CERETEC SCAN Charcot's, bilateral. Diabetes uncontrolled. FALL HEAD INJURY AND KNEE ABRASIONS GASTRITIS ON EGD SEP 18, ANEMIA, ACUTE BLOOD LOSS AND HX ACD. TRANSFUSED. Acute renal failure, d/t sepsis CKD 2 Hyponatremia d/t polydypsia, thorazine, hyperglycemia. EDEMA, SEVERE Schizoprenia Alcoholism HTN DM Peripheral neuropathy Noncompliance. PT understands will likely lose limbs if continues to remain noncompliant with elev of legs. PLAN: SCOPE PENDING IVF IV ABX, ZOSYN IV LASIX INSULIN HEPARIN BID PT OT BOOTS BILAT PWB GI CONSULT CM CONSULT DPM CONSULT PSYCH CONSULT Problem Qualifiers (1) Schizophrenia: Qualified Code: F20.89 - Other schizophrenia Jack Rod MD Oct 08, 2016 11:52
[2016-10-08] MEDS ORDERED: PROPOFOL 200 MG/20 ML AMP IV ONE (12:01)
[2016-10-08 12:52] LABS: INDIRECT BILIRUBIN 0.2 MG/DL (0.0-0.8); TOTAL BILIRUBIN ADULT 0.3 MG/DL (0.2-1.0)
[2016-10-08] MEDS ORDERED: DIATRIZOATE MEGLUM/DIATRIZOATE SOD 9 ML CUP PO ONE (13:00)
--- NOTE | 2016-10-08 17:19 | RADRPT ---
EXAM DATE/TIME: 10/08/2016 16:48 [facility] COMPARISON: CT ABDOMEN & PELVIS W CONTRAST, September 29, 2016, 17:39. INDICATIONS : Abdomen pain. ORAL CONTRAST: Prescribed oral contrast ingested. RADIATION DOSE: 23.47 CTDIvol (mGy) MEDICAL HISTORY : Hypertension. Renal insufficiency. Diabetes mellitus type 2. SURGICAL HISTORY : None. ENCOUNTER: Initial ACUITY: 1 day PAIN SCALE: 5/10 LOCATION: Bilateral abdomen TECHNIQUE: Volumetric scanning of the abdomen and pelvis was performed. Using automated exposure control and ad justment of the mA and/or kV according to patient size, radiation dose was kept as low as reasonably achievable to obtain optimal diagnostic quality images. FINDINGS: Bony structures again reveal degenerative changes of the lumbar spine and lung bases are clear with s table pericardial thickening or effusion. The liver spleen gallbladder pancreas and kidneys as well a s adrenal glands are negative. There is a small fat containing umbilical hernia and benign bowel dist ribution no evidence of free air or free fluid or obstruction. CONCLUSION: Stable CT scan of the abdomen. No acute intra-abdominal or pelvic process. Pericardial thickening or small effusion. Fat containing small umbilical hernia. Extensive vascular calcifications Nakul Traore MD on October 08, 2016 at 17:14 Board Certified Radiologist. This report was verified electronically.
--- NOTE | 2016-10-08 17:21 | EKG ---
Date Performed: 10/07/2016 Time Performed: 18:22:11 PTAGE: 56 years EKG: Sinus rhythm NONSPECIFIC ST ELEVATION Compared to prior tracing no significant change BORDERLINE ECG PREVIOUS TRACING : 09/29/2016 16.43 DOCTOR: Tunde Torres Interpretating Date/Time 10/08/2016 17:20:05
[2016-10-09] VITALS: BP 103/56; PULSE 76; RESP 17; TEMP 96; O2SAT 100
[2016-10-09] MEDS: PIPERACIL-TAZO 3.375 GM PREMIX 50 ML IV SCH ×3 (00:27→11:11)
[2016-10-09] MEDS: SODIUM CHLOR 0.9% 1000 ML INJ 1,000 ML IV SCH (00:28)
[2016-10-09] MEDS: LACTATED RINGER'S 1000 ML IV SCH (00:28)
[2016-10-09 04:00] VITALS: BP 116/60; PULSE 72; RESP 17; TEMP 97.6; O2SAT 100
[2016-10-09] MEDS: LOW DOSE INSULIN NOVOLOG SUPPLEMENTAL SCALE SQ SCH ×2 (06:09→11:11)
[2016-10-09] MEDS: glipiZIDE 5 MG TAB PO SCH (06:14)
[2016-10-09 08:00] VITALS: BP 107/48; PULSE 83; RESP 16; TEMP 97.1; O2SAT 96
[2016-10-09 08:36] VITALS: PULSE 103
[2016-10-09] MEDS: FUROSEMIDE 40 MG/4 ML VIAL IV PUSH SCH (08:40)
[2016-10-09] MEDS: THIORIDAZINE HCL 100 MG PO SCH (08:40)
[2016-10-09] MEDS: DOCUSATE SODIUM 100 MG CAP PO SCH (08:40)
[2016-10-09] MEDS: GABAPENTIN 400 MG CAP PO SCH ×2 (08:41→11:49)
[2016-10-09] MEDS: ACETAMINOPHEN/HYDROcodone 325 MG/5 MG TAB PO PRN (08:41)
[2016-10-09] MEDS: SODIUM CHLORIDE 0.9% FLUSH 5 ML FLUSH FLUSH SCH (08:41)
[2016-10-09] MEDS: LISINOPRIL 10 MG TAB PO SCH (08:41)
[2016-10-09 09:41] VITALS: RESP 18
[2016-10-09] MEDS: HEPARIN SODIUM - SQ 10,000 UNITS/ML VIAL SQ SCH (11:00)
[2016-10-09] MEDS ORDERED: LORA-392 PO (11:06)
[2016-10-09] MEDS ORDERED: HYDR-3516 PO (11:06)
--- NOTE | 2016-10-09 11:06 | HHI.DCPOC ---
Discharge Care Plan Diagnosis: (1) Acute renal failure (2) Peripheral neuropathy (3) Renal insufficiency (4) Schizophrenia (5) Hypertension (6) Obesity (7) ETOH abuse (8) Chronic disease anemia (9) DM (diabetes mellitus) (10) CKD (chronic kidney disease) stage 3, GFR 30-59 ml/min (11) Osteomyelitis of ankle or foot (12) Charcot foot due to diabetes mellitus (13) Cellulitis of left foot (14) Noncompliance (15) Type 2 diabetes mellitus with foot ulcer Goals to Promote Your Health * To prevent worsening of your condition and complications * To maintain your health at the optimal level Directions to Meet Your Goals Take your medications as prescribed Follow your dietary instruction Follow activity as directed Keep your appointments as scheduled Take your immunizations and boosters as scheduled If your symptoms worsen call your PCP, if no PCP go to Urgent Care Center or Emergency Room Smoking is Dangerous to Your Health. Avoid second hand smoke Call the 24-hour hour crisis hotline for domestic abuse at Jack Rod MD Oct 09, 2016 11:06
--- NOTE | 2016-10-09 11:07 | HHI.DS ---
Discharge Summary Admission Date Oct 04, 2016 at 23:46 Discharge Date: Oct 09, 2016 Admitting Diagnosis hyponatremia 117, schizophrenia, chronic foot ulcers (1) Acute renal failure (2) Peripheral neuropathy (3) Renal insufficiency (4) Schizophrenia (5) Hypertension (6) Obesity (7) ETOH abuse (8) Chronic disease anemia (9) CKD (chronic kidney disease) stage 3, GFR 30-59 ml/min (10) Osteomyelitis of ankle or foot (11) Cellulitis of left foot (12) Noncompliance (13) Type 2 diabetes mellitus with foot ulcer (14) Impaired mobility and activities of daily living (15) Other specified diabetes mellitus with diabetic peripheral angiopathy without gangrene (16) GI bleed (17) Acute blood loss anemia (18) Charcot foot due to diabetes mellitus (19) Hyponatremia Brief History 56 Y CM, PT SIGNED OUT AMA THREE DAYS AGO. PT SUPPOSED TO GO BACK TO [facility]. PT ENDED UP LEAVING AND GOING TO HIS ELDER FATHER'S HOME. PT PRESENTED BACK TO THE ER WITH FOOT PAIN COMPLAINTS, AND WEAKNESS. PT C/O SEVERE LEG PAIN AND EDEMA. I WAS CALLED BY THE ER MD FOR ADMIT. PT WITH DOG HAIR AND UNKEPT WOUNDS AND HIS FATHER WAS CALLING THE ER AND REPORTS THAT HE IS UNABLE TO HELP HIM AT HOME ANY LONGER. CBC/BMP: 10/08/16 0840 10/08/16 0840 Significant Findings Laboratory Tests Test 10/07/16 10/08/16 10:41 08:40 Red Blood Count 2.71 MIL/MM3 2.77 MIL/MM3 (4.50-5.90) (4.50-5.90) Hemoglobin 7.7 GM/DL 8.1 GM/DL (13.0-17.0) (13.0-17.0) Hematocrit 22.4 % 22.6 % (39.0-51.0) (39.0-51.0) Monocytes (%) (Auto) 8.8 % (0.0-8.0) 11.8 % (0.0-8.0) Eosinophils (%) (Auto) 4.4 % (0.0-4.0) 5.2 % (0.0-4.0) Sodium Level 123 MEQ/L 126 MEQ/L (136-145) (136-145) Chloride Level 86 MEQ/L 88 MEQ/L (98-107) (98-107) Blood Urea Nitrogen 31 MG/DL (7-18) 36 MG/DL (7-18) Creatinine 1.77 MG/DL 2.29 MG/DL (0.60-1.30) (0.60-1.30) Estimat Glomerular Filtration 40 ML/MIN (>89) 30 ML/MIN (>89) Rate Random Glucose 133 MG/DL (74-106) Monocytes # (Auto) 1.0 TH/MM3 (0-0.9) Alkaline Phosphatase 257 U/L (45-117) Albumin 2.2 GM/DL (3.4-5.0) PE at Discharge GENERAL: SKIN: Warm and dry. HEAD: Atraumatic. Normocephalic. EYES: Pupils equal and round. No scleral icterus. No injection or drainage. ENT: No nasal bleeding or discharge. Mucous membranes pink and moist. NECK: Trachea midline. No JVD. CARDIOVASCULAR: Regular rate and rhythm. RESPIRATORY: No accessory muscle use. Clear to auscultation. Breath sounds equal bilaterally. GASTROINTESTINAL: Abdomen soft, non-tender, nondistended. Hepatic and splenic margins not palpable. MUSCULOSKELETAL: Extremities without clubbing, cyanosis, or edema. No obvious deformities. NEUROLOGICAL: Awake and alert. No obvious cranial nerve deficits. Motor grossly within normal limits. Five out of 5 muscle strength in the arms and legs. Normal speech. PSYCHIATRIC: Appropriate mood and affect; insight and judgment normal. Hospital Course 56 y cm, ADMIT WITH - L FOOT CELLULITIS HX R Diabetic foot abscess. s/p I AND D BILAT FEET SEP 20, CERETEC SCAN Charcot's, bilateral. Diabetes uncontrolled. FALL HEAD INJURY AND KNEE ABRASIONS GASTRITIS ON EGD SEP 18, ANEMIA, ACUTE BLOOD LOSS AND HX ACD. TRANSFUSED. Acute renal failure, d/t sepsis CKD 2 Hyponatremia d/t polydypsia, thorazine, hyperglycemia. EDEMA, SEVERE Schizoprenia Alcoholism HTN DM Peripheral neuropathy Noncompliance. PT understands will likely lose limbs if continues to remain noncompliant with elev of legs. PLAN: SCOPE NEG, CT NEG. GES SUGGESTED YET PT REQS DC NOW TO [facility] OR HE IS GOING HOME AMA. NO N/V. TAKING PO. LOOKS WELL. IVF IV ABX, ZOSYN IV LASIX INSULIN HEPARIN BID PT OT BOOTS BILAT PWB GI CONSULT CM CONSULT DPM CONSULT PSYCH CONSULT Discharge Disposition: Discharge to SNF Discharge Instructions DIET: Follow Instructions for: Diabetic Diet Activities you can perform: Regular-No Restrictions Follow up Referrals: Gastroenterology - 1 Week with Elizabeth Obando MD PCP Follow-up Podiatry - 3-5 Days with Chaitanya Perez DPM SNF/[facility]/ with [facility] Continued Medications: Aspirin DR (Aspirin 81) 81 Mg Tabdr 81 MG PO DAILY Ref 0 TAB Glipizide (Glipizide) 5 Mg Tab 5 MG PO BIDAC Take 30 minutes before a meal Blood Sugar Management #60 Ref 0 TAB Hydrocodone-Acetaminophen (Hydrocodone-Acetaminophen) 5-325 mg Tab 1 TAB PO Q4H PRN PAIN GREATER THAN 5 #90 Ref 0 TAB (This prescription has been renewed) Insulin Aspart Inj (Novolog Inj) 100 Unit/Ml Inj 1 UNITS SQ ACHS SLIDING SCALE DM Days 90 BOTTLE Lorazepam (Ativan) 0.5 Mg Tab 0.5 MG PO Q8H PRN SEVERE ANXIETY OR AGITATION #90 Ref 5 TAB (This prescription has been renewed) Thioridazine (Thioridazine) 100 Mg Tab 200 MG PO DAILY Schizophrenia #30 Ref 0 TAB Discontinued Medications: Furosemide (Lasix) 40 Mg Tab 40 MG PO DAILY EDEA #30 Ref 11 TAB Gabapentin (Neurontin) 400 Mg Cap 400 MG PO TID #30 Ref 0 CAP Lisinopril (Lisinopril) 10 Mg Tab 10 MG PO DAILY #30 Ref 0 TAB Jack Rod MD Oct 09, 2016 11:07
== END 2016-10-09 14:25 | DRG 872 ==
LOC: NEPC 18:40 → NEDA 23:46 → N07A 10-05 03:55
PROVIDERS: ADMIT Family Medicine; ATTEND Family Medicine
PROC: 0DB58ZX Excision of Esophagus, Via Natural or Artificial Opening Endoscopic, Diagnostic (ICD-10-PCS; 2016-10-08)
PROC: 0DB98ZX Excision of Duodenum, Via Natural or Artificial Opening Endoscopic, Diagnostic (ICD-10-PCS; principal; 2016-10-08 11:45)
DX: A41.9 Sepsis, unspecified organism (principal); E11.22 Type 2 diabetes mellitus with diabetic chronic kidney disease; E11.42 Type 2 diabetes mellitus with diabetic polyneuropathy; N17.9 Acute kidney failure, unspecified; N18.3 Chronic kidney disease, stage 3 (moderate); E11.610 Type 2 diabetes mellitus with diabetic neuropathic arthropathy; D62 Acute posthemorrhagic anemia; E87.1 Hypo-osmolality and hyponatremia; L03.116 Cellulitis of left lower limb; M86.9 Osteomyelitis, unspecified; Z68.42 Body mass index [BMI] 45.0-49.9, adult; I12.9 Hypertensive chronic kidney disease with stage 1 through stage 4 chronic kidney disease, or unspecified chronic kidney disease; D63.8 Anemia in other chronic diseases classified elsewhere; E11.51 Type 2 diabetes mellitus with diabetic peripheral angiopathy without gangrene; E11.621 Type 2 diabetes mellitus with foot ulcer; E11.628 Type 2 diabetes mellitus with other skin complications; E11.65 Type 2 diabetes mellitus with hyperglycemia; F10.20 Alcohol dependence, uncomplicated; K29.70 Gastritis, unspecified, without bleeding; L97.519 Non-pressure chronic ulcer of other part of right foot with unspecified severity; L97.529 Non-pressure chronic ulcer of other part of left foot with unspecified severity; M21.969 Unspecified acquired deformity of unspecified lower leg; R65.20 Severe sepsis without septic shock; S09.90XA Unspecified injury of head, initial encounter; S91.302A Unspecified open wound, left foot, initial encounter; E66.01 Morbid (severe) obesity due to excess calories; F20.9 Schizophrenia, unspecified; Z81.8 Family history of other mental and behavioral disorders; Z91.19 Patient's noncompliance with other medical treatment and regimen; K20.9 Esophagitis, unspecified; K44.9 Diaphragmatic hernia without obstruction or gangrene; K62.89 Other specified diseases of anus and rectum; Z86.14 Personal history of Methicillin resistant Staphylococcus aureus infection; Z79.01 Long term (current) use of anticoagulants
CPT/HCPCS: 74176; 80048; 80076; 82272; 82948; 85025; 88305; 93005; 96374; 96375; C9113; J1644; J1815; J1940; J2270; J2405; J2543; J7030; J7120; L2114; Q9963

== ENCOUNTER 2016-10-20 12:41 | Emergency (ER) | payer MEDICARE, MEDICAID ==
[~2016-10-20 12:41] MED LIST changes: -FURO1TAB60 PO; -LISI10TA3 PO; -NEUR400C PO
[2016-10-20 12:54] VITALS: O2SAT 97
[2016-10-20 12:59] VITALS: BP 158/86; PULSE 93; RESP 18; TEMP 98.6; O2SAT 100
--- NOTE | 2016-10-20 13:04 | PD ---
HPI Chief Complaint: Chest Pain Time Seen by Provider: 12:49 Travel History International Travel<30 days: No Contact w/Intl Traveler<30days: No Traveled to known affect area: No History of Present Illness HPI 56-year-old male complains of chest pain. Patient states that the pain started about 10:00 this morning. Patient states the pain aching pain localized left chest. Patient denies any pain radiation. Patient denies palpitation nausea vomiting diaphoresis. Patient denies any coughing congestion fever chills. Patient has history of chronic feet ulcers with pain. Patient states the pain radiated up the right leg. Patient also has history of chronic kidney disease, peripheral neuropathy, schizophrenia, hypertension, EtOH abuse, osteomyelitis of the ankle and feet, diabetes, GI bleed, Charcot foot, hyponatremia. [facility] EMS was called. Patient was given nitroglycerin spray sublingually without relief of the pain. PFSH Past Medical History Hx Anticoagulant Therapy: Yes Arthritis: No Asthma: No Autoimmune Disease: No Blood Disorders: No Anxiety: Yes Depression: Yes Heart Rhythm Problems: No Cancer: No Cardiovascular Problems: Yes (HTN) High Cholesterol: No Chemotherapy: No Chest Pain: No Congestive Heart Failure: No COPD: No Cerebrovascular Accident: No Diabetes: Yes Patient Takes Glucophage: Yes Diminished Hearing: No Endocrine: No Gastrointestinal Disorders: No GERD: No Glaucoma: No Genitourinary: No Headaches: No Hepatitis: No Hiatal Hernia: No Heparin Induced Thrombocytopen: No Hypertension: Yes Immune Disorder: No Implanted Vascular Access Dvce: No Kidney Stones: No Musculoskeletal: No Neurologic: No Psychiatric: Yes (schizoprenia controlled ) Reproductive: No Respiratory: No Migraines: No Myocardial Infarction: No Radiation Therapy: No Renal Failure: No Schizophrenia: Yes Seizures: No Sickle Cell Disease: No Sleep Apnea: No Thyroid Disease: No Ulcer: No Past Surgical History Abdominal Surgery: No AICD: No Appendectomy: No Arteriovenous Shunt: No Cardiac Surgery: No Cholecystectomy: No Ear Surgery: No Endocrine Surgery: No Eye Surgery: No Genitourinary Surgery: No Gynecologic Surgery: No Insulin Pump: No Joint Replacement: No Neurologic Surgery: No Oral Surgery: No Pacemaker: No Thoracic Surgery: No Other Surgery: Yes (R FOOT ) Social History Alcohol Use: Yes (6 PACK OF BEER PER DAY) Tobacco Use: No Substance Use: No Allergies-Medications (Allergen,Severity, Reaction): Coded Allergies: Haldol (Verified Allergy, Severe, BLINDNESS, 09/29/16) Vancomycin (Verified Allergy, Severe, 09/29/16) Levaquin (Verified Allergy, Intermediate, Cramping, 09/29/16) Prolixin (Verified Allergy, Unknown, "PARKINSONIAN SHACKS", 09/29/16) *MDRO Multi-Drug Resistant Organism (Verified Adverse Reaction, Unknown, VRE, 09/29/16) 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 Reported Meds & Prescriptions Reported Meds & Active Scripts Active Ativan (Lorazepam) 0.5 Mg Tab 0.5 Mg PO Q8H PRN Hydrocodone-Acetaminophen 5-325 mg Tab 1 Tab PO Q4H PRN Novolog Inj (Insulin Aspart) 100 Unit/Ml Inj 1 Units SQ ACHS SLIDING SCALE 90 Days Reported Glipizide 5 Mg Tab 5 Mg PO BIDAC Take 30 minutes before a meal Aspirin 81 (Aspirin) 81 Mg Tabdr 81 Mg PO DAILY Thioridazine (Thioridazine HCl) 100 Mg Tab 200 Mg PO DAILY Review of Systems General / Constitutional: No: Fever Eyes: No: Visual changes HENT: No: Headaches Cardiovascular: Positive: Chest Pain or Discomfort Respiratory: No: Shortness of Breath Gastrointestinal: No: Abdominal Pain Genitourinary: No: Dysuria Musculoskeletal: No: Pain Skin: No Rash Neurologic: No: Weakness Psychiatric: No: Depression Endocrine: No: Polydipsia Hematologic/Lymphatic: No: Easy Bruising Physical Exam Narrative GENERAL: Well-nourished, well-developed patient. SKIN: Warm and dry. HEAD: Normocephalic. EYES: No scleral icterus. No injection or drainage. NECK: Supple, trachea midline. No JVD or lymphadenopathy. CARDIOVASCULAR: Regular rate and rhythm without murmurs, gallops, or rubs. RESPIRATORY: Breath sounds equal bilaterally. No accessory muscle use. GASTROINTESTINAL: Abdomen soft, non-tender, nondistended. Reducible umbilical hernia. MUSCULOSKELETAL: Patient has large ulcer on the plantar aspect of both feet. No discharge noted. No redness no heat. +1 to +2 pitting edema lower extremity. BACK: Nontender without obvious deformity. No CVA tenderness. Neurologic exam: Patient is awake and alert oriented 3. No obvious focal neurological deficit. Data Data Last Documented VS Vital Signs Date Time Temp Pulse Resp B/P Pulse Ox O2 Delivery O2 Flow Rate FiO2 10/20/16 18:19 88 18 159/61 99 Nasal Cannula 2 10/20/16 12:59 98.6 Orders Complete Blood Count With Diff (10/20/16 12:49) Comprehensive Metabolic Panel (10/20/16 12:49) Creatine Kinase (Cpk) (10/20/16 12:49) Troponin I (10/20/16 12:49) B-Type Natriuretic Peptide (10/20/16 12:49) Prothrombin Time / Inr (Pt) (10/20/16 12:49) Act Partial Throm Time (Ptt) (10/20/16 12:49) Urinalysis - C+S If Indicated (10/20/16 12:49) D-Dimer (10/20/16 12:49) Thyroid Stimulating Hormone (10/20/16 12:49) Chest, Single Ap (10/20/16 12:49) Iv Access Insert/Monitor (10/20/16 12:49) Ecg Monitoring (10/20/16 12:49) Oximetry (10/20/16 12:49) Isolation 08,20 (10/20/16 13:27) Ventilation & Perfusion Scan (10/20/16 14:36) Labs Laboratory Tests Test 10/20/16 13:10 White Blood Count 6.6 TH/MM3 Red Blood Count 2.73 MIL/MM3 Hemoglobin 7.9 GM/DL Hematocrit 23.5 % Mean Corpuscular Volume 86.0 FL Mean Corpuscular Hemoglobin 29.0 PG Mean Corpuscular Hemoglobin 33.7 % Concent Red Cell Distribution Width 16.5 % Platelet Count 556 TH/MM3 Mean Platelet Volume 8.2 FL Neutrophils (%) (Auto) 55.8 % Lymphocytes (%) (Auto) 29.7 % Monocytes (%) (Auto) 11.2 % Eosinophils (%) (Auto) 2.5 % Basophils (%) (Auto) 0.8 % Neutrophils # (Auto) 3.7 TH/MM3 Lymphocytes # (Auto) 2.0 TH/MM3 Monocytes # (Auto) 0.7 TH/MM3 Eosinophils # (Auto) 0.2 TH/MM3 Basophils # (Auto) 0.1 TH/MM3 CBC Comment DIFF FINAL Differential Comment Prothrombin Time 11.4 SEC Prothromb Time International 1.0 RATIO Ratio Activated Partial 28.9 SEC Thromboplast Time D-Dimer Quantitative (PE/DVT) 2.17 MG/L FEU Sodium Level 136 MEQ/L Potassium Level 4.0 MEQ/L Chloride Level 104 MEQ/L Carbon Dioxide Level 25.4 MEQ/L Anion Gap 7 MEQ/L Blood Urea Nitrogen 20 MG/DL Creatinine 1.84 MG/DL Estimat Glomerular Filtration 39 ML/MIN Rate Random Glucose 87 MG/DL Calcium Level 10.4 MG/DL Total Bilirubin 0.4 MG/DL Aspartate Amino Transf 22 U/L (AST/SGOT) Alanine Aminotransferase 17 U/L (ALT/SGPT) Alkaline Phosphatase 356 U/L Total Creatine Kinase 30 U/L Troponin I LESS THAN 0.02 NG/ML B-Type Natriuretic Peptide 653 PG/ML Total Protein 7.9 GM/DL Albumin 2.5 GM/DL Thyroid Stimulating Hormone 2.480 uIU/ML 3rd Gen [facility] Medical Decision Making Medical Screen Exam Complete: Yes Emergency Medical Condition: Yes Medical Record Reviewed: Yes Interpretation(s) Last Impressions Chest X-Ray 10/20/16 1249 Signed Impressions: Service Date/Time: Thursday, October 20, 2016 13:03 - CONCLUSION: No acute disease. Zaid Darden MD 1435 PM. CBC with WBC 6.6. Hemoglobin 7.9 hematocrit 23.5. Platelet 556. Normal differential. BUN 20 creatinine 1.84. Calcium 10.4. Alkaline phosphatase 356. Cardiac enzymes are normal. BNP 653. D-dimer 2.17. 1806 p.m. VQ scan normal. Differential Diagnosis Differential diagnosis including musculoskeletal, angina, SC, PE, pneumothorax. Narrative Course 56-year-old male with chest pain. History of chronic cellulitis and osteomyelitis of the feet. History of chronic kidney disease and diabetes. I spoke with Dr. Rod about the patient including the results of chest x-ray, blood tests and VQ scan. Dr. Rod advised to discharge the patient and follow with him in the office. Diagnosis Primary Impression: Chest pain Qualified Code: R07.9 - Chest pain, unspecified type Patient Instructions: General Instructions Additional Instructions: Continue with medications as directed. Follow-up with personal physician. Return if increasing chest pain or shortness of breath. Med/Other Pt SpecificInfo: No Change to Meds Disposition: 01 DISCHARGE HOME Condition: Stable Collin Rod MD Oct 20, 2016 13:04
--- NOTE | 2016-10-20 13:11 | RADRPT ---
EXAM DATE/TIME: 10/20/2016 13:03 [facility] COMPARISON: CHEST SINGLE AP, September 29, 2016, 15:26. INDICATIONS : Patient complains of chest pain. MEDICAL HISTORY : Diabetes mellitus type 2. Hypertension. Schizophrenia. SURGICAL HISTORY : None. ENCOUNTER: Initial ACUITY: 3 days PAIN SCORE: 3/10 LOCATION: chest FINDINGS: A single view of the chest demonstrates the lungs to be symmetrically aerated without evidence of mas s, infiltrate or effusion. The cardiomediastinal contours are unremarkable. Osseous structures are intact. CONCLUSION: No acute disease. Zaid Darden MD on October 20, 2016 at 13:09 Board Certified Radiologist. This report was verified electronically.
[2016-10-20 13:31] LABS: AUTOMATED NEUTROPHIL # 3.7 TH/MM3 (1.8-7.7); BASOPHIL # 0.1 TH/MM3 (0-0.2); BASOPHIL % 0.8 % (0.0-2.0); EOSINOPHIL # 0.2 TH/MM3 (0-0.4); EOSINOPHIL % 2.5 % (0.0-4.0); HEMATOCRIT 23.5 % (39.0-51.0); HEMO FLAGS DIFF FINAL; LYMPH % 29.7 % (9.0-44.0); MEAN CORPUSCULAR HGB CONC 33.7 % (32.0-36.0); MONO % 11.2 % (0.0-8.0); NEUT % 55.8 % (16.0-70.0); PLATELET COUNT 556 TH/MM3 (150-450); RED BLOOD COUNT 2.73 MIL/MM3 (4.50-5.90); RED CELL DISTRIBUTION WIDTH 16.5 % (11.6-17.2); WHITE BLOOD COUNT 6.6 TH/MM3 (4.0-11.0)
[2016-10-20 13:42] LABS: ALT (GPT) 17 U/L (12-78); ANION GAP 7 MEQ/L (5-15); AST (GOT) 22 U/L (15-37); BICARBONATE 25.4 MEQ/L (21.0-32.0); BLOOD UREA NITROGEN 20 MG/DL (7-18); CHLORIDE 104 MEQ/L (98-107); GLOMERULAR FILTRATION RATE 39 ML/MIN (>89); SODIUM (NA) 136 MEQ/L (136-145)
[2016-10-20 13:49] LABS: APTT (PATIENT) 28.9 SEC (24.3-30.1); PROTHROMBIN TIME - PATIENT 11.4 SEC (9.8-11.6)
[2016-10-20 13:51] LABS: ALKALINE PHOSPHATASE 356 U/L (45-117); TOTAL BILIRUBIN ADULT 0.4 MG/DL (0.2-1.0)
[2016-10-20 13:54] LABS: CREATINE KINASE 30 U/L (39-308)
--- NOTE | 2016-10-20 16:56 | RADRPT ---
EXAM DATE/TIME: 10/20/2016 15:55 [facility] COMPARISON: No previous studies available for comparison. INDICATIONS : Embolus and chest pain. DOSE: 8.4 mCi Tc99m MAA IV 1.8 mCi Tc99m DTPA aerosol MEDICAL HISTORY : Hypertension. Diabetes mellitus type 2. Renal disease. SURGICAL HISTORY : Right and left foot surgery. ENCOUNTER: Initial ACUITY: 1 day PAIN SCALE: 3/10 LOCATION: chest TECHNIQUE: Following five minutes of tidal breathing of DTPA aerosol, planar images of the lungs were performed in eight projections. The patient was then injected with MAA, and eight-view perfusion scan was perf ormed. FINDINGS: There is a homogeneous pattern of aerosol delivery to the periphery of both lungs. No focal ventilat ory defects are seen. The perfusion lung scan demonstrates a homogenous pattern of uptake in both lungs. No segmental or s ubsegmental defects are seen. CONCLUSION: Normal examination. Marcio Hansen MD on October 20, 2016 at 16:54 Board Certified Radiologist. This report was verified electronically.
[2016-10-20 18:19] VITALS: BP 159/61; PULSE 88; RESP 18; O2SAT 99
--- NOTE | 2016-10-21 13:24 | EKG ---
Date Performed: 10/20/2016 Time Performed: 12:45:40 PTAGE: 56 years EKG: Sinus rhythm WITH FREQUENT VENTRICULAR PREMATURE COMPLEXES NONSPECIFIC ST ELEVATION There is much artifact. Can n ot exclude atrial fibrillation, underlying rhythm is most likely Sinus with premature atrial contract ions, and premature Ventrictricular contractions. When compared to previous tracikng, there is now ev idence of Dual chamber pacing. ABNORMAL RHYTHM ECG PREVIOUS TRACING : 10/07/2016 18.22 DOCTOR: Tunde Torres Interpretating Date/Time 10/21/2016 13:23:01
== END 2016-10-20 18:59 | disposition home or self-care (01) ==
LOC: NEPA 12:41
DX: R07.9 Chest pain, unspecified (principal); I12.9 Hypertensive chronic kidney disease with stage 1 through stage 4 chronic kidney disease, or unspecified chronic kidney disease; N18.9 Chronic kidney disease, unspecified; E11.22 Type 2 diabetes mellitus with diabetic chronic kidney disease; Z79.4 Long term (current) use of insulin; Z79.84 Long term (current) use of oral hypoglycemic drugs
CPT/HCPCS: 71010; 78582; 80053; 82550; 83880; 84443; 84484; 85025; 85379; 85610; 85730; 93005; 99285; A9540; A9567

== ENCOUNTER 2016-10-30 16:15 | Emergency (ER) | payer MEDICARE, MEDICAID ==
[2016-10-30 16:17] VITALS: BP 117/55; PULSE 80; RESP 14; TEMP 98.5; O2SAT 98
== END 2016-10-30 22:26 | disposition left against medical advice (07) ==
LOC: NETRI 16:15
DX: L98.8 Other specified disorders of the skin and subcutaneous tissue (principal)
CPT/HCPCS: 99281

== ENCOUNTER 2016-11-02 04:24 | Inpatient (IN) | payer MEDICARE, MEDICAID ==
[~2016-11-02] VITALS: Ht 177.8 cm; Wt 94.6 kg
[2016-11-02 04:31] VITALS: BP 175/76; PULSE 95; RESP 16; TEMP 98.2; O2SAT 96
[2016-11-02 04:58] LABS: AUTOMATED NEUTROPHIL # 7.8 TH/MM3 (1.8-7.7); BASOPHIL # 0.1 TH/MM3 (0-0.2); BASOPHIL % 0.7 % (0.0-2.0); EOSINOPHIL # 0.3 TH/MM3 (0-0.4); EOSINOPHIL % 2.6 % (0.0-4.0); HEMATOCRIT 21.8 % (39.0-51.0); HEMO FLAGS DIFF FINAL; LYMPH % 19.2 % (9.0-44.0); LYMPHOCYTE # 2.3 TH/MM3 (1.0-4.8); MEAN CELL VOLUME 86.3 FL (80.0-100.0); MEAN CORPUSCULAR HEMOGLOBIN 28.9 PG (27.0-34.0); MEAN CORPUSCULAR HGB CONC 33.5 % (32.0-36.0); MONO % 12.8 % (0.0-8.0); NEUT % 64.7 % (16.0-70.0); PLATELET COUNT 476 TH/MM3 (150-450); RED BLOOD COUNT 2.53 MIL/MM3 (4.50-5.90); RED CELL DISTRIBUTION WIDTH 14.8 % (11.6-17.2); WHITE BLOOD COUNT 12.1 TH/MM3 (4.0-11.0)
[2016-11-02 05:11] LABS: ANION GAP 9 MEQ/L (5-15); AST (GOT) 13 U/L (15-37); BICARBONATE 22.9 MEQ/L (21.0-32.0); BLOOD UREA NITROGEN 24 MG/DL (7-18); CHLORIDE 97 MEQ/L (98-107); GLOMERULAR FILTRATION RATE 34 ML/MIN (>89); POTASSIUM 4.6 MEQ/L (3.5-5.1); SODIUM (NA) 129 MEQ/L (136-145)
--- NOTE | 2016-11-02 05:11 | PD ---
HPI Chief Complaint: Abdominal Pain Time Seen by Provider: 04:49 Travel History International Travel<30 days: No Contact w/Intl Traveler<30days: No Traveled to known affect area: No History of Present Illness HPI 56yo M with PMH of schizophrenia, chronic bilateral foot/leg ulcers presents to the ED with multiple complaints. Pt states he has generalized abdominal pain, sob for a few hours. States he has not had a bowel movement for 8 days. Denies any fever, chest pain, vomiting, focal weakness or numbness. Pt is also complaining of bilateral leg pain and drainage from leg ulcers. He states he does not know how long he has had drainage. PFSH Past Medical History Hx Anticoagulant Therapy: Yes Arthritis: No Asthma: No Autoimmune Disease: No Blood Disorders: No Anxiety: Yes Depression: Yes Heart Rhythm Problems: No Cancer: No Cardiovascular Problems: Yes (HTN) High Cholesterol: No Chemotherapy: No Chest Pain: No Congestive Heart Failure: No COPD: No Cerebrovascular Accident: No Diabetes: Yes Diminished Hearing: No Endocrine: No Gastrointestinal Disorders: No GERD: No Glaucoma: No Genitourinary: No Headaches: No Hepatitis: No Hiatal Hernia: No Heparin Induced Thrombocytopen: No Hypertension: Yes Immune Disorder: No Implanted Vascular Access Dvce: No Kidney Stones: No Musculoskeletal: No Neurologic: No Psychiatric: Yes (schizoprenia controlled ) Reproductive: No Respiratory: No Migraines: No Myocardial Infarction: No Radiation Therapy: No Renal Failure: No Schizophrenia: Yes Seizures: No Sickle Cell Disease: No Sleep Apnea: No Thyroid Disease: No Ulcer: No Past Surgical History Abdominal Surgery: No AICD: No Appendectomy: No Arteriovenous Shunt: No Cardiac Surgery: No Cholecystectomy: No Ear Surgery: No Endocrine Surgery: No Eye Surgery: No Genitourinary Surgery: No Gynecologic Surgery: No Insulin Pump: No Joint Replacement: No Neurologic Surgery: No Oral Surgery: No Pacemaker: No Thoracic Surgery: No Other Surgery: Yes (R FOOT ) Social History Alcohol Use: Yes (6 PACK OF BEER PER DAY) Tobacco Use: No Substance Use: No Allergies-Medications (Allergen,Severity, Reaction): Coded Allergies: Haldol (Verified Allergy, Severe, BLINDNESS, 10/30/16) Vancomycin (Verified Allergy, Severe, 10/30/16) Levaquin (Verified Allergy, Intermediate, Cramping, 10/30/16) Prolixin (Verified Allergy, Unknown, "PARKINSONIAN SHACKS", 10/30/16) *MDRO Multi-Drug Resistant Organism (Verified Adverse Reaction, Unknown, VRE, 10/30/16) 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 Reported Meds & Prescriptions Reported Meds & Active Scripts Active Ativan (Lorazepam) 0.5 Mg Tab 0.5 Mg PO Q8H PRN Hydrocodone-Acetaminophen 5-325 mg Tab 1 Tab PO Q4H PRN Novolog Inj (Insulin Aspart) 100 Unit/Ml Inj 1 Units SQ ACHS SLIDING SCALE 90 Days Reported Glipizide 5 Mg Tab 5 Mg PO BIDAC Take 30 minutes before a meal Aspirin 81 (Aspirin) 81 Mg Tabdr 81 Mg PO DAILY Thioridazine (Thioridazine HCl) 100 Mg Tab 200 Mg PO DAILY Review of Systems Except as stated in HPI: all other systems reviewed are Neg Physical Exam Narrative GENERAL: 56yo M not in distress. SKIN: Warm and dry. HEAD: Atraumatic. Normocephalic. NECK: Trachea midline. No JVD. CARDIOVASCULAR: Regular rate and rhythm. No murmur appreciated. RESPIRATORY: No accessory muscle use. Clear to auscultation. Breath sounds equal bilaterally. GASTROINTESTINAL: Abdomen soft, +Umbilical hernia. Soft, reducible and nontender. Mild ttp diffusely. No rebound tenderness or guarding. MUSCULOSKELETAL: +Chronic ulcers in bilateral plantar surface of foot and tibia. +Yellow drainage of left lower extremity medial ulcer. Foul smelling. +Discoloration and edema bilateral lower extremity. DP 2+ bilateral feet. NEUROLOGICAL: Awake and alert. No obvious cranial nerve deficits. Motor grossly within normal limits. Normal speech. Data Data Last Documented VS Vital Signs Date Time Temp Pulse Resp B/P Pulse Ox O2 Delivery O2 Flow Rate FiO2 11/02/16 06:00 16 11/02/16 04:31 98.2 95 175/76 96 Orders Complete Blood Count With Diff (11/02/16 04:34) Comprehensive Metabolic Panel (11/02/16 04:34) Lactic Acid (11/02/16 04:34) Troponin I (11/02/16 04:57) Electrocardiogram (11/02/16 ) Chest, Single Ap (11/02/16 ) Ckmb (Isoenzyme) Profile (11/02/16 04:57) Urinalysis - C+S If Indicated (11/02/16 05:11) Sodium Chlor 0.9% 1000 Ml Inj (Ns 1000 M (11/02/16 05:15) Ct Abd/Pel W/O Iv Contrast (11/02/16 ) Blood Culture (11/02/16 06:31) Clindamycin Inj (Cleocin Inj) (11/02/16 06:45) Ketorolac Inj (Toradol Inj) (11/02/16 06:45) Admit Order (Ed Use Only) (11/02/16 06:42) Labs Laboratory Tests Test 11/02/16 11/02/16 04:30 06:00 White Blood Count 12.1 TH/MM3 Red Blood Count 2.53 MIL/MM3 Hemoglobin 7.3 GM/DL Hematocrit 21.8 % Mean Corpuscular Volume 86.3 FL Mean Corpuscular Hemoglobin 28.9 PG Mean Corpuscular Hemoglobin 33.5 % Concent Red Cell Distribution Width 14.8 % Platelet Count 476 TH/MM3 Mean Platelet Volume 7.7 FL Neutrophils (%) (Auto) 64.7 % Lymphocytes (%) (Auto) 19.2 % Monocytes (%) (Auto) 12.8 % Eosinophils (%) (Auto) 2.6 % Basophils (%) (Auto) 0.7 % Neutrophils # (Auto) 7.8 TH/MM3 Lymphocytes # (Auto) 2.3 TH/MM3 Monocytes # (Auto) 1.5 TH/MM3 Eosinophils # (Auto) 0.3 TH/MM3 Basophils # (Auto) 0.1 TH/MM3 CBC Comment DIFF FINAL Differential Comment Sodium Level 129 MEQ/L Potassium Level 4.6 MEQ/L Chloride Level 97 MEQ/L Carbon Dioxide Level 22.9 MEQ/L Anion Gap 9 MEQ/L Blood Urea Nitrogen 24 MG/DL Creatinine 2.05 MG/DL Estimat Glomerular Filtration 34 ML/MIN Rate Random Glucose 187 MG/DL Lactic Acid Level 1.2 mmol/L Calcium Level 9.5 MG/DL Total Bilirubin 0.2 MG/DL Aspartate Amino Transf 13 U/L (AST/SGOT) Alanine Aminotransferase 13 U/L (ALT/SGPT) Alkaline Phosphatase 519 U/L Total Creatine Kinase 31 U/L Troponin I LESS THAN 0.02 NG/ML Total Protein 8.4 GM/DL Albumin 2.1 GM/DL Urine Color LIGHT-YELLOW Urine Turbidity CLEAR Urine pH 7.0 Urine Specific [place] 1.006 Urine Protein 100 mg/dL Urine Glucose (UA) NEG mg/dL Urine Ketones NEG mg/dL Urine Occult Blood NEG Urine Nitrite NEG Urine Bilirubin NEG Urine Urobilinogen LESS THAN 2.0 MG/DL Urine Leukocyte Esterase NEG Urine RBC 1 /hpf Urine WBC LESS THAN 1 /hpf Microscopic Urinalysis Comment CULT NOT INDICATED MDM Medical Decision Making Medical Screen Exam Complete: Yes Emergency Medical Condition: Yes Interpretation(s) EKG: NSR 61bpm. Normal axis. +PVCs. No ST segment elevation or depression. Differential Diagnosis Cellulitis vs. chronic nonhealing ulcer vs. infected ulcer Constipation vs. colitis vs. UTI Narrative Course 56yo M with multiple complaints including pain in bilateral legs, sob, abdominal pain. Labs reviewed, mild leukocytosis at 12.1. H/H is low at 7.3/ 21.8 but at baseline. Na is low at 129, he has had this before. Creatinine increased at 2.05 which is mildly increase from 1.84. Lactic acid 1.2. Troponin negative. Alk phos more elevated at 519 than previous. Total bilirubin normal. AST and ALT not elevated. UA negative. CTa/p showed gall bladder wall thickening. Cholecystitis is not excluded. Radionuclide imaging is recommended for further evaluation if clinically indicated. HIDA scan ordered. Pt does have RUQ tenderness on exam. Surgery consult placed. Pt to be NPO for now. CXR showed cardiomegaly and findings of vascular congestion without overt failure. His bilateral lower extremity has chronic ulcers but appears infected. Blood cultures obtained and clindamycin IV given. Discussed with Dr. Rod for admission. Diagnosis Primary Impression: Infected stasis ulcer Qualified Code: I83.209 - Infected stasis ulcer, unspecified laterality Additional Impression: Cholecystitis Admitting Information Admitting Physician Requests: it KhanGemmaAnn-Marie DO Nov 02, 2016 05:11
[2016-11-02 05:14] LABS: ALKALINE PHOSPHATASE 519 U/L (45-117); ALT (GPT) 13 U/L (12-78); TOTAL BILIRUBIN ADULT 0.2 MG/DL (0.2-1.0)
[2016-11-02] MEDS ORDERED: SODIUM CHLOR 0.9% 1000 ML INJ 1,000 ML IV ONE (05:15)
--- NOTE | 2016-11-02 05:39 | RADRPT ---
EXAM DATE/TIME: 11/02/2016 05:12 [facility] COMPARISON: CHEST SINGLE AP, October 20, 2016, 13:03. INDICATIONS : Shortness of breath. MEDICAL HISTORY : Diabetes mellitus type 2. Hypertension. Schizophrenia. SURGICAL HISTORY : None. ENCOUNTER: Initial ACUITY: 1 day PAIN SCORE: 0/10 LOCATION: chest FINDINGS: Cardiomegaly. No acute pulmonary disease. There is prominence of the central pulmonary vasculature wi th indistinct vascular margins compatible with vascular congestion but no evidence of overt failure. No pleural effusions are identified. CONCLUSION: 1. Cardiomegaly and findings of vascular congestion without overt failure. Frandy Osborn MD on November 02, 2016 at 5:38 Board Certified Radiologist. This report was verified electronically.
[2016-11-02 06:16] LABS: CREATINE KINASE 31 U/L (39-308)
[2016-11-02] MEDS ORDERED: CLINDAMYCIN INJ 600 MG in SODIUM CHLORIDE 0.9% INJ 100 ML IV ONE (06:45)
[2016-11-02] MEDS ORDERED: KETOROLAC TROMETHAMINE 30 MG/ML (IVP) VIAL IV PUSH ONE (06:45)
--- NOTE | 2016-11-02 06:48 | RADRPT ---
EXAM DATE/TIME: 11/02/2016 06:00 [facility] COMPARISON: CT ABDOMEN & PELVIS W/O CONTRAST, October 08, 2016, 16:48. INDICATIONS : Lower left abdomen pain. ORAL CONTRAST: No oral contrast ingested. RADIATION DOSE: 15.81 CTDIvol (mGy) MEDICAL HISTORY : Hypertension. Cardiovascular disease Renal failure, acute.Diabetes. SURGICAL HISTORY : None. ENCOUNTER: Initial ACUITY: 1 day PAIN SCALE: 8/10 LOCATION: Left lower quadrant abdomen TECHNIQUE: Volumetric scanning of the abdomen and pelvis was performed. Using automated exposure control and ad justment of the mA and/or kV according to patient size, radiation dose was kept as low as reasonably achievable to obtain optimal diagnostic quality images. FINDINGS: Examination of the lung bases demonstrates no abnormality. No pleural fluid is identified. No pulmona ry nodules are present. A small pericardial effusion is present. The liver is enlarged. The spleen is normal in size and free of focal defects. The gallbladder demonstrates mild wall thickening with a s mall focus of calcification in the wall. Cholecystitis is not excluded. Radionuclide imaging is recom mended for further evaluation if clinically indicated. The adrenal glands and kidneys appear normal b ilaterally. No hydronephrosis or mass lesions are identified. 3 cm fat containing umbilical hernia is present. Nonspecific para-aortic lymph nodes are present the largest measuring 19 mm. Examination of the pelvis demonstrates no evidence of free fluid or pelvic mass. Enlarged inguinal ly mph nodes are present bilaterally The bladder is unremarkable. Prominent vascular calcification is pr esent. Examination of the right lower quadrant demonstrates no abnormality. The appendix is identifie d and appears normal. CONCLUSION: 1. Gall bladder wall thickening. Cholecystitis is not excluded. Radionuclide imaging is recommended f or further evaluation if clinically indicated. 2. Hepatomegaly 3. Fat-containing umbilical hernia 4. Nonspecific para-aortic adenopathy as above with bilateral inguinal adenopathy. PET/CT scan is rec ommended to further evaluation if clinically indicated. 5. Small pericardial effusion Frandy Osborn MD on November 02, 2016 at 6:39 Board Certified Radiologist. This report was verified electronically.
[2016-11-02 06:55] LABS: BLOOD, URINE NEG (NEG); GLUCOSE,URINE NEG (NEG); KETONE, URINE NEG (NEG); NITRITE,URINE NEG (NEG); URINE COLOR LIGHT-YELLOW (YELLW/STRAW)
[2016-11-02 06:56] LABS: COMMENT (UR) CULT NOT INDICATED; CULTURE IF INDICATED CULT NOT INDICATED
[2016-11-02 07:20] VITALS: BP 166/82; PULSE 85; RESP 20; O2SAT 95
[2016-11-02] MEDS ORDERED: SODIUM CHLORIDE 0.9% FLUSH 5 ML FLUSH FLUSH PRN (07:45)
[2016-11-02] MEDS ORDERED: HEPARIN SODIUM - SQ 10,000 UNITS/ML VIAL SQ SCH (07:45)
[2016-11-02] MEDS ORDERED: NALOXONE HCL 0.4 MG/ML AMP IV PRN (07:45)
[2016-11-02] MEDS ORDERED: BISACODYL 10 MG SUPP PR PRN (07:45)
--- NOTE | 2016-11-02 07:56 | HHI.HP ---
History of Present Illness Primary Care Physician Jack Rod MD Admission Diagnosis Infected leg ulcer Diagnoses: History of Present Illness 56 Y CM. SIGNED OUT AMA FROM RECENTLY. PT HAS BEEN ALOOF, HOWEVER REQUESTING REFILLS FROM MY OFFICE THIS WEEK. PT PRESENTED TO THE ER THIS AM WITH LEG PAIN, WEAKNESS, AND ABDOMINAL PAIN. I WAS CALLED BY THE ER MD FOR ADMIT. SHE REPORTS CHOLECYSTITIS AND ELEV LFT'S, ADMIN CLINDA IV. BLOOD CULTURES TAKEN. PT APPEARS DESHEVELED AND ILL. C/O ABDOMINAL PAIN AND RECURRENCE OF FEET INFECTION. Sepsis Criteria SIRS Criteria (2 or more): Heart rate over 90, WBC > 78383, < 4000 or > 10% bands Sepsis Criteria (SIRS+source): Infect source susp/known Severe Sepsis (+one): Organ Dysfunction, Acute Oliguria/Renal Failure Criteria Outcome: Meets severe sepsis criteria Review of Systems ROS Limitations: Clinical Condition, Altered Mental Status, Psychotic, Poor Historian Past Family Social History Allergies: Coded Allergies: Haldol (Verified Allergy, Severe, BLINDNESS, 10/30/16) Vancomycin (Verified Allergy, Severe, 10/30/16) Levaquin (Verified Allergy, Intermediate, Cramping, 10/30/16) Prolixin (Verified Allergy, Unknown, "PARKINSONIAN SHACKS", 10/30/16) *MDRO Multi-Drug Resistant Organism (Verified Adverse Reaction, Unknown, VRE, 10/30/16) 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 Past Medical History CHARCOT DM HTN GIB Past Surgical History FEET I AND D'S Reported Medications Current Medications Medications (Trade) Dose Ordered Sig/Portia Route Start Time Stop Time Status Last Admin ([place] 5-325 Mg) 1 tab Q4H PRN PO 11/02/16 07:45 UNV (Ativan) 0.5 mg Q8H PRN PO 11/02/16 07:45 UNV Non-Formulary Medication 200 mg DAILY PO 11/02/16 09:00 UNV (NS Flush) 2 ml UNSCH PRN FLUSH 11/02/16 07:45 UNV (NS Flush) 2 ml BID FLUSH 11/02/16 09:00 UNV (Tylenol) 650 mg Q4H PRN PO 11/02/16 07:45 UNV (Zofran Inj) 4 mg Q6H PRN IVP 11/02/16 07:45 UNV (Dulcolax Supp) 10 mg DAILY PRN [place] 11/02/16 07:45 UNV (Milk Of [place] Liq) 30 ml Q12H PRN PO 11/02/16 07:45 UNV (Senokot) 17.2 mg Q12H PRN PO 11/02/16 07:45 UNV (Ambien) 5 mg HS PRN PO 11/02/16 07:45 UNV (Heparin Inj) 5,000 units Q12H SQ 11/02/16 07:45 UNV Naloxone HCl 0.4 mg 0.4 mg UNSCH PRN IV 11/02/16 07:45 UNV (Zosyn 3.375 Gm Premix) 50 ml @ 100 mls/hr Q6H IV 11/02/16 08:00 UNV (Catapres) 0.1 mg Q6H PRN PO 11/02/16 08:00 UNV (Vasotec Inj) 2.5 mg Q6H PRN IV PUSH 11/02/16 08:00 UNV Family History NC Social History SMOKER, DISABLED, NO E/D Physical Exam Vital Signs Vital Signs Date Time Temp Pulse Resp B/P Pulse Ox O2 Delivery O2 Flow Rate FiO2 11/02/16 07:20 85 20 166/82 95 Room Air 11/02/16 06:00 16 11/02/16 04:31 98.2 95 16 175/76 96 Physical Exam GENERAL: frail, desheveled, agitated on exam SKIN: charcot's bilaterally, large open ulcers on ventral feet bilat HEAD: Atraumatic. Normocephalic. No temporal or scalp tenderness. EYES: Pupils equal round and reactive. Extraocular motions intact. No scleral icterus. No injection or drainage. ENT: Nose without bleeding, purulent drainage or septal hematoma. Throat without erythema, tonsillar hypertrophy or exudate. Uvula midline. Airway patent. NECK: Trachea midline. No JVD or lymphadenopathy. Supple, nontender, no meningeal signs. CARDIOVASCULAR: Regular rate and rhythm without murmurs, gallops, or rubs. RESPIRATORY: Clear to auscultation. Breath sounds equal bilaterally. No wheezes , rales, or rhonchi. GASTROINTESTINAL: Abdomen soft, non-tender, nondistended. No hepato-splenomegaly , or palpable masses. No guarding. MUSCULOSKELETAL: Extremities without clubbing, cyanosis, No joint tenderness, effusion, No calf tenderness. Negative Homans sign bilaterally. NEUROLOGICAL: Awake and alert. Cranial nerves II through XII intact. Motor and sensory grossly within normal limits. 2 out of 5 muscle strength in all muscle groups. Normal speech. Laboratory Laboratory Tests Test 11/02/16 11/02/16 04:30 06:00 White Blood Count 12.1 Red Blood Count 2.53 Hemoglobin 7.3 Hematocrit 21.8 Mean Corpuscular Volume 86.3 Mean Corpuscular Hemoglobin 28.9 Mean Corpuscular Hemoglobin 33.5 Concent Red Cell Distribution Width 14.8 Platelet Count 476 Mean Platelet Volume 7.7 Neutrophils (%) (Auto) 64.7 Lymphocytes (%) (Auto) 19.2 Monocytes (%) (Auto) 12.8 Eosinophils (%) (Auto) 2.6 Basophils (%) (Auto) 0.7 Neutrophils # (Auto) 7.8 Lymphocytes # (Auto) 2.3 Monocytes # (Auto) 1.5 Eosinophils # (Auto) 0.3 Basophils # (Auto) 0.1 CBC Comment DIFF FINAL Differential Comment Sodium Level 129 Potassium Level 4.6 Chloride Level 97 Carbon Dioxide Level 22.9 Anion Gap 9 Blood Urea Nitrogen 24 Creatinine 2.05 Estimat Glomerular Filtration 34 Rate Random Glucose 187 Lactic Acid Level 1.2 Calcium Level 9.5 Total Bilirubin 0.2 Aspartate Amino Transf 13 (AST/SGOT) Alanine Aminotransferase 13 (ALT/SGPT) Alkaline Phosphatase 519 Total Creatine Kinase 31 Troponin I LESS THAN 0.02 Total Protein 8.4 Albumin 2.1 Urine Color LIGHT-YELLOW Urine Turbidity CLEAR Urine pH 7.0 Urine Specific [place] 1.006 Urine Protein 100 Urine Glucose (UA) NEG Urine Ketones NEG Urine Occult Blood NEG Urine Nitrite NEG Urine Bilirubin NEG Urine Urobilinogen LESS THAN 2.0 Urine Leukocyte Esterase NEG Urine RBC 1 Urine WBC LESS THAN 1 Microscopic Urinalysis Comment CULT NOT INDICATED Date/Time Procedure Status Source Growth 11/02/16 06:30 Aerobic Blood Culture Received Blood Peripheral Pending 11/02/16 06:30 Anaerobic Blood Culture Received Blood Peripheral Pending Result Diagram: 11/02/16 0430 11/02/16 0430 Imaging Last 72 hours Impressions Chest X-Ray 11/02/16 0000 Signed Impressions: Service Date/Time: Wednesday, November 02, 2016 05:12 - CONCLUSION: 1. Cardiomegaly and findings of vascular congestion without overt failure. Frandy Osborn MD Abdomen/Pelvis CT 11/02/16 0000 Signed Impressions: Service Date/Time: Wednesday, November 02, 2016 06:00 - CONCLUSION: 1. Gall bladder wall thickening. Cholecystitis is not excluded. Radionuclide imaging is recommended for further evaluation if clinically indicated. 2. Hepatomegaly 3. Fat-containing umbilical hernia 4. Nonspecific para-aortic adenopathy as above with bilateral inguinal adenopathy. PET/CT scan is recommended to further evaluation if clinically indicated. 5. Small pericardial effusion Frandy Osborn MD Assessment and Plan Assessment and Plan ABDOMINAL PAIN CHOLECYSTITIS SEVERE SEPSIS DM ULCERS, BILATERALLY; s/p I AND D BILAT FEET SEP 20, Charcot's, bilateral. Diabetes uncontrolled. GASTRITIS ON EGD SEP 18, ANEMIA, ACUTE BLOOD LOSS AND HX ACD. Acute renal failure, d/t sepsis CKD 2 Hyponatremia d/t polydypsia, thorazine, hyperglycemia. EDEMA, SEVERE Schizoprenia Alcoholism HTN DM Peripheral neuropathy Noncompliance. PT understands will likely lose limbs if continues to remain noncompliant with elev of legs. PLAN: IVF, MONITOR FOR OVERLOAD IV ABX, ZOSYN INSULIN NO HEPARIN DUE TO GIB HX AND ANEMIA PROTONIX IV PT SURGERY CONSULT DPM CONSULT WOUND RN CONSULT BLOOD CULTURES CM CONSULT AM LABS INPT ADMIT FOR THE ABOVE DX AND PLAN. EXPECT 3 D INPT STAY. BACK TO [facility] OR [facility] IF PT REFUSES SNF. Jack Rod MD Nov 02, 2016 07:56
[2016-11-02] MEDS ORDERED: GLUCAGON 1 MG/ML VIAL OTHER PRN (08:00)
[2016-11-02] MEDS ORDERED: DEXTROSE 50% IN WATER 50 ML VIAL(D50) IV PUSH PRN (08:00)
[2016-11-02] MEDS: SODIUM CHLORIDE 0.9% FLUSH 5 ML FLUSH FLUSH SCH ×2 (08:56→21:37)
[2016-11-02] MEDS ORDERED: ZOLPIDEM TARTRATE 5 MG TAB PO PRN (09:00)
[2016-11-02] MEDS ORDERED: ACETAMINOPHEN 325 MG TAB PO PRN (09:00)
[2016-11-02] MEDS ORDERED: SENNOSIDES 8.6 MG TAB PO PRN (09:00)
[2016-11-02] MEDS ORDERED: MAGNESIUM HYDROXIDE SUSP 30 ML CUP PO PRN (09:00)
[2016-11-02] MEDS ORDERED: ENALAPRILAT 2.5 MG/2 ML VIAL IV PUSH PRN (09:00)
[2016-11-02] MEDS ORDERED: LORazepam 0.5 MG TAB PO PRN (09:00)
[2016-11-02] MEDS ORDERED: ONDANSETRON HCL 4 MG/2 ML VIAL IVP PRN (09:00)
[2016-11-02] MEDS ORDERED: cloNIDine HCL 0.1 MG TAB PO PRN (09:00)
[2016-11-02] MEDS: PIPERACIL-TAZO 3.375 GM PREMIX 50 ML IV SCH ×3 (09:25→21:36)
[2016-11-02] MEDS: INSULIN ASPART SUPPLEMENTAL SCALE SQ SCH ×3 (11:00→22:10)
[2016-11-02] MEDS ORDERED: SINCALIDE 5 MCG/5 ML VIAL IV ONE (11:26)
[2016-11-02 12:14] VITALS: BP 174/83; PULSE 81; RESP 19; TEMP 96.6; O2SAT 99
--- NOTE | 2016-11-02 12:33 | RADRPT ---
EXAM DATE/TIME: 11/02/2016 10:08 [facility] COMPARISON: CT ABDOMEN & PELVIS W/O CONTRAST, November 02, 2016, 6:00. INDICATIONS : Abdominal pain for 1 day. DOSE: 4.1 mCi Tc99m Mebrofenin IV MEDICATION: 1.92 mcg Cholecystokinin IV; No symptomatic response. Cholecystokinin was administered by slow infusion over 8 minutes beginning at 60 minutes. MEDICAL HISTORY : Hypertension. Renal disease, end stage. Schizophrenia and ETOH abuse. SURGICAL HISTORY : None. ENCOUNTER: Initial ACUITY: 1 day PAIN SCALE: 3/10 LOCATION: Right upper quadrant TECHNIQUE: Following the intravenous administration of radiotracer, dynamic sequential image were performed with continuous acquisition. Time-activity curves were generated. FINDINGS: HEPATIIC KINETICS: There is prompt uptake of radiotracer in the liver. No focal defects are seen. There is normal rate of washout from the hepatic parenchyma. BILIARY CLEARANCE: Activity is first seen in the extrahepatic biliary system at 15 minutes. There is normal excretion i nto the small bowel. GALLBLADDER: Activity is first seen in the gallbladder at 15 minutes. POST CHOLECYSTOKININ: After Cholecystokinin administration, there is prompt emptying of the gallbladder with a 60 % ejectio n fraction. Common bile duct kinetics are normal and there is no evidence of biliary obstruction. BILIARY ENTERIC REFLUX: None observed. CLINICAL: The patient was asymptomatic after Cholecystokinin administration. CONCLUSION: Negative exam. No scintigraphic findings of acute or chronic cholecystitis. Marquis Mcdonald MD on November 02, 2016 at 12:28 Board Certified Radiologist. This report was verified electronically.
[2016-11-02] MEDS: ASPIRIN EC 81 MG TABEC PO SCH (12:53)
[2016-11-02] MEDS: ACETAMINOPHEN/HYDROcodone 325 MG/5 MG TAB PO PRN ×2 (12:53→17:14)
[2016-11-02] MEDS: SODIUM CHLOR 0.9% 1000 ML INJ 1,000 ML IV SCH (12:53)
[2016-11-02] MEDS: PANTOPRAZOLE SODIUM 40 MG VIAL IV PUSH SCH (12:54)
[2016-11-02] MEDS: THIORIDAZINE HCL 100 MG PO SCH (12:56)
--- NOTE | 2016-11-02 14:16 | PD.CONS ---
History of Present Illness Service Podiatry Consult Requested By Med team Reason for Consult Bilateral charcot feet Primary Care Physician Jack Rod MD Diagnoses: (1) Charcot foot due to diabetes mellitus History of Present Illness 56 Y CM. SIGNED OUT AMA FROM [facility] RECENTLY. PT HAS BEEN ALOOF, HOWEVER REQUESTING REFILLS FROM MY OFFICE THIS WEEK. PT PRESENTED TO THE ER THIS AM WITH LEG PAIN, WEAKNESS, AND ABDOMINAL PAIN. I WAS CALLED BY THE ER MD FOR ADMIT. SHE REPORTS CHOLECYSTITIS AND ELEV LFT'S, ADMIN CLINDA IV. BLOOD CULTURES TAKEN. PT APPEARS DESHEVELED AND ILL. C/O ABDOMINAL PAIN AND RECURRENCE OF foot ulceration, in fact ulceration never resolved since I and D per Dr. Boone in past Past Family Social History Allergies: Coded Allergies: Haldol (Verified Allergy, Severe, BLINDNESS, 10/30/16) Vancomycin (Verified Allergy, Severe, 10/30/16) Levaquin (Verified Allergy, Intermediate, Cramping, 10/30/16) Prolixin (Verified Allergy, Unknown, "PARKINSONIAN SHACKS", 10/30/16) *MDRO Multi-Drug Resistant Organism (Verified Adverse Reaction, Unknown, VRE, 10/30/16) 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 Physical Exam Vital Signs Vital Signs Date Time Temp Pulse Resp B/P Pulse Ox O2 Delivery O2 Flow Rate FiO2 11/02/16 13:53 18 11/02/16 12:14 96.6 81 19 174/83 99 11/02/16 07:20 85 20 166/82 95 Room Air 11/02/16 06:00 16 11/02/16 04:31 98.2 95 16 175/76 96 Physical Exam GENERAL: This is a well-nourished, well-developed patient, in no apparent distress. SKIN: No rashes, ecchymoses or lesions. Cool and dry. HEAD: Atraumatic. Normocephalic. No temporal or scalp tenderness. EYES: Pupils equal round and reactive. Extraocular motions intact. No scleral icterus. No injection or drainage. ENT: Nose without bleeding, purulent drainage or septal hematoma. Throat without erythema, tonsillar hypertrophy or exudate. Uvula midline. Airway patent. NECK: Trachea midline. No JVD or lymphadenopathy. Supple, nontender, no meningeal signs. CARDIOVASCULAR: Regular rate and rhythm without murmurs, gallops, or rubs. RESPIRATORY: Clear to auscultation. Breath sounds equal bilaterally. No wheezes , rales, or rhonchi. GASTROINTESTINAL: Abdomen soft, non-tender, nondistended. No hepato-splenomegaly , or palpable masses. No guarding. MUSCULOSKELETAL: Extremities without clubbing, cyanosis, or edema. No joint tenderness, effusion, or edema noted. No calf tenderness. Negative Homans sign bilaterally. NEUROLOGICAL: Awake and alert. Cranial nerves II through XII intact. Motor and sensory grossly within normal limits. Five out of 5 muscle strength in all muscle groups. Normal speech. Laboratory Laboratory Tests Test 11/02/16 11/02/16 11/02/16 04:30 06:00 07:33 White Blood Count 12.1 Red Blood Count 2.53 Hemoglobin 7.3 Hematocrit 21.8 Mean Corpuscular Volume 86.3 Mean Corpuscular Hemoglobin 28.9 Mean Corpuscular Hemoglobin 33.5 Concent Red Cell Distribution Width 14.8 Platelet Count 476 Mean Platelet Volume 7.7 Neutrophils (%) (Auto) 64.7 Lymphocytes (%) (Auto) 19.2 Monocytes (%) (Auto) 12.8 Eosinophils (%) (Auto) 2.6 Basophils (%) (Auto) 0.7 Neutrophils # (Auto) 7.8 Lymphocytes # (Auto) 2.3 Monocytes # (Auto) 1.5 Eosinophils # (Auto) 0.3 Basophils # (Auto) 0.1 CBC Comment DIFF FINAL Differential Comment Sodium Level 129 Potassium Level 4.6 Chloride Level 97 Carbon Dioxide Level 22.9 Anion Gap 9 Blood Urea Nitrogen 24 Creatinine 2.05 Estimat Glomerular Filtration 34 Rate Random Glucose 187 Lactic Acid Level 1.2 Calcium Level 9.5 Total Bilirubin 0.2 Aspartate Amino Transf 13 (AST/SGOT) Alanine Aminotransferase 13 (ALT/SGPT) Alkaline Phosphatase 519 Total Creatine Kinase 31 Troponin I LESS THAN 0.02 Total Protein 8.4 Albumin 2.1 Urine Color LIGHT-YELLOW Urine Turbidity CLEAR Urine pH 7.0 Urine Specific [place] 1.006 Urine Protein 100 Urine Glucose (UA) NEG Urine Ketones NEG Urine Occult Blood NEG Urine Nitrite NEG Urine Bilirubin NEG Urine Urobilinogen LESS THAN 2.0 Urine Leukocyte Esterase NEG Urine RBC 1 Urine WBC LESS THAN 1 Microscopic Urinalysis Comment CULT NOT INDICATED Blood Type O POSITIVE Antibody Screen NEGATIVE Date/Time Procedure Status Source Growth 11/02/16 06:30 Aerobic Blood Culture Received Blood Peripheral Pending 11/02/16 06:30 Anaerobic Blood Culture Received Blood Peripheral Pending Result Diagram: 11/02/16 0430 11/02/16 0430 Course Bilateral feet examined -Pulses Dp and Pt bilateral palpable Sensation loss Rocker bottom feet bilateral Bilateral plantar midfoot ulceration R about 5 cm circumfrentially with granular base, rolled edges, no pus, no deep tracking; left ulcer about 3.5 cm, granular, rolled edges, no pus, indurated borders no deep tracking Assessment and Plan Assessment and Plan Rocker bottom feet with Charcot arthropathy and plantar ulceration -Plan is Bilateral CAM boots to offload -Pt does not wear cam boots at home, plan is upon discharge to be fitted with custom molded braces/AFO to help the foot position and offload the ulcerations -No surgical intervention needed at this time Chaitanya Perez DPM Nov 02, 2016 14:16
[2016-11-02 16:06] VITALS: BP 162/69; PULSE 80; RESP 17; TEMP 96.7; O2SAT 100
--- NOTE | 2016-11-02 17:04 | EKG ---
Date Performed: 11/02/2016 Time Performed: 06:44:23 PTAGE: 56 years EKG: Sinus rhythm WITH FREQUENT SUPRAVENTRICULAR PREMATURE COMPLEXES IN A BIGEMINAL PATTERN Compared to prior tracing no significant change ABNORMAL RHYTHM ECG PREVIOUS TRACING : 10/20/2016 12.45 DOCTOR: Jeffery Red Interpretating Date/Time 11/02/2016 16:56:46
--- NOTE | 2016-11-02 17:57 | PD.PN.STU ---
Subjective Remarks Patient is a 56 year old male with rocker bottom feet charcot arhtopathy, CKD 2 , HTN, uncontrolled DM, alcoholism, schizophrenia that was consulted for general surgery for elevated LFTs and cholecystis. The patient originally came into the ED with some mild abdominal pain and pain in his legs. The patient now reports no abdominal pain or pain in his lower extremities. He reports no other complaints at this time and states that he "does not want surgery for just gallstones in his gallbladder' Objective Vitals General: The patient is in no acute distress. He is eating a heavy meal and in no pain when I was walking in. HEENT: No tracheal deviation. Cardio: s1 and S2 appreciated. RRR. No murmurs, rubs, gallops. Pulmonary: CTA bilaterally. No cyanosis present. Patient is able to breathe without any accessory respiratory muscles. Abdominal: no pain elicited on palpation. No obvious abdominal distension. Not tympanic on percussion. No abdominal wall or umbilical hernias/ Extremities: Both feet are covered in boots. Psych: Mild agitation Vital Signs Date Time Temp Pulse Resp B/P Pulse Ox O2 Delivery O2 Flow Rate FiO2 11/02/16 16:06 96.7 80 17 162/69 100 11/02/16 13:53 18 11/02/16 12:14 96.6 81 19 174/83 99 11/02/16 07:20 85 20 166/82 95 Room Air 11/02/16 06:00 16 11/02/16 04:31 98.2 95 16 175/76 96 I/O 11/01/16 11/01/16 11/01/16 11/02/16 11/02/16 11/02/16 07:00 15:00 23:00 07:00 15:00 23:00 Intake Total 30 ml Balance 30 ml Intake IV Total 30 ml # Bowel Movements 1 Result Diagram: 11/02/16 0430 11/02/16 0430 A/P Assessment and Plan 56 year old male with rocker bottom feet charcot arthropathy. Asymptomatic gallstones and HIDA scan negative. No plan for surgery. Jeanmarie Conway Nov 02, 2016 17:57
[2016-11-02 20:00] VITALS: PULSE 75
[2016-11-02 21:30] VITALS: BP 139/68; PULSE 72; RESP 17; TEMP 97.5; O2SAT 99
--- NOTE | 2016-11-02 22:27 | MB ---
cc: MEI IGNACIO M.D. DATE OF CONSULTATION: 11/02/2016 REASON FOR CONSULTATION "Gallbladder wall thickening." HISTORY OF PRESENT ILLNESS The patient is a 56-year-old male who was admitted with multiple sores on his legs and abdominal pain. We have been consulted to see the patient due to his abdominal pain. The patient reports that he had abdominal pain and shortness of breath for about a few hours prior to admission and had not had a bowel movement for eight days. PAST MEDICAL HISTORY Significant for a history of anticoagulant therapy. No arthritis or asthma. History of anxiety and depression. History of hypertension, diabetes. The patient also has schizophrenia that is controlled. PAST SURGERIES No abdominal surgery. He had surgery to the right foot. SOCIAL HISTORY Significant for a six-pack of beer use a day. Does not smoke or use other substances. ALLERGIES THE PATIENT HAS ALLERGIES TO HALDOL, VANCOMYCIN, LEVAQUIN, PROLIXIN. MEDICATIONS AT THE TIME OF ADMISSION 1. Ativan. 2. Hydrocodone 5. 3. NovoLog Insulin sliding scale. 4. Glipizide 5 mg b.i.d. 5. Aspirin 81 mg q.day. 6. Thioridazine 100 mg tabs 200 mg a day. PHYSICAL EXAMINATION GENERAL: Reveals an obese male in no acute distress. VITAL SIGNS: BP 162/69, pulse 80, respirations 17, temperature 96.7. HEENT: Sclerae anicteric. CHEST: Chest is clear to auscultation. CARDIAC: Reveals regular rate and rhythm. ABDOMEN: Abdomen is soft, the patient has an umbilical hernia that is approximately 1 cm in size and easily reducible. The patient also has a diastases rectus. There is absolutely no epigastric or right upper quadrant tenderness. The patient was eating [employer] hamburgers when we arrived. LABORATORY VALUES Laboratory values demonstrate WBCs of 12.1, hemoglobin of 7.3, platelets 476,000. LFTs demonstrate total bili of 0.2, AST 13, ALT 13, alkaline phosphatase 519. Lactate level was 1.2. IMAGING CT of the abdomen and pelvis demonstrates gallbladder wall thickening. There was also fat containing umbilical hernia which was seen on exam. HIDA scan that was performed today demonstrates activity in the gallbladder at 15 minutes and prompt emptying of the gallbladder with a 60% EF. Common bile duct kinetics are normal and there were no symptoms after cholecystokinin administration. ASSESSMENT The patient with a history of abdominal pain not related to his gallbladder. Tolerating a regular diet at this time. We will see the patient as needed as he does not require any surgical procedure and his gallbladder is not causing any problems. MD FILIPE Schmidt/BJF /9:38 PM /10:13 PM
[2016-11-03] VITALS (9 sets, daily range): BP systolic 125–183; BP diastolic 64–87; PULSE 67–81; RESP 16–21; TEMP 96.8–98.6; O2SAT 98–100
[2016-11-03] MEDS: PIPERACIL-TAZO 3.375 GM PREMIX 50 ML IV SCH ×4 (03:00→21:10)
[2016-11-03] MEDS: ACETAMINOPHEN/HYDROcodone 325 MG/5 MG TAB PO PRN ×3 (06:07→15:19)
[2016-11-03 06:44] LABS: AUTOMATED NEUTROPHIL # 6.3 TH/MM3 (1.8-7.7); BASOPHIL # 0.1 TH/MM3 (0-0.2); BASOPHIL % 0.8 % (0.0-2.0); EOSINOPHIL # 0.3 TH/MM3 (0-0.4); EOSINOPHIL % 3.4 % (0.0-4.0); LYMPH % 17.1 % (9.0-44.0); LYMPHOCYTE # 1.6 TH/MM3 (1.0-4.8); MEAN CELL VOLUME 86.4 FL (80.0-100.0); MEAN CORPUSCULAR HGB CONC 34.7 % (32.0-36.0); MONO % 10.7 % (0.0-8.0); PLATELET COUNT 438 TH/MM3 (150-450); RED BLOOD COUNT 2.17 MIL/MM3 (4.50-5.90); RED CELL DISTRIBUTION WIDTH 14.9 % (11.6-17.2); WHITE BLOOD COUNT 9.3 TH/MM3 (4.0-11.0)
[2016-11-03] MEDS: INSULIN ASPART SUPPLEMENTAL SCALE SQ SCH ×4 (07:00→21:00)
[2016-11-03 07:05] LABS: ANION GAP 7 MEQ/L (5-15); AST (GOT) 10 U/L (15-37); BICARBONATE 23.6 MEQ/L (21.0-32.0); BLOOD UREA NITROGEN 29 MG/DL (7-18); CHLORIDE 103 MEQ/L (98-107); GLOMERULAR FILTRATION RATE 32 ML/MIN (>89); POTASSIUM 4.7 MEQ/L (3.5-5.1); SODIUM (NA) 134 MEQ/L (136-145)
[2016-11-03 07:08] LABS: ALKALINE PHOSPHATASE 449 U/L (45-117); ALT (GPT) 10 U/L (12-78); TOTAL BILIRUBIN ADULT 0.3 MG/DL (0.2-1.0)
[2016-11-03 07:10] LABS: HEMO FLAGS AUTO DIFF
[2016-11-03 07:18] LABS: HEMATOCRIT 18.8 % (39.0-51.0)
[2016-11-03 08:20] LABS: SCAN/DIFF AUTO DIFF CONFIRMED
[2016-11-03] MEDS: SODIUM CHLORIDE 0.9% FLUSH 5 ML FLUSH FLUSH SCH ×2 (09:00→21:00)
[2016-11-03] MEDS: THIORIDAZINE HCL 100 MG PO SCH (09:26)
[2016-11-03] MEDS: PANTOPRAZOLE SODIUM 40 MG VIAL IV PUSH SCH (09:26)
[2016-11-03] MEDS: ASPIRIN EC 81 MG TABEC PO SCH (09:26)
--- NOTE | 2016-11-03 15:03 | HHI.PR ---
Subjective Remarks Follow up for fatigue, abdominal pain, lower ext ulcers. Mr. Yanes is currently doing well. Denies any fever, chills. He reports no hemoptysis, melena, hematochezia. His Hgb was 6.5 today and subsequently received one unit of PRBC. Objective Vitals Vital Signs Date Time Temp Pulse Resp B/P Pulse Ox O2 Delivery O2 Flow Rate FiO2 11/03/16 12:00 98.6 74 16 179/81 100 11/03/16 11:00 98.1 81 18 174/86 11/03/16 10:45 98.6 74 18 179/81 11/03/16 10:12 98 21 11/03/16 08:00 97.6 71 19 131/76 98 11/03/16 07:07 18 11/03/16 04:45 97.7 69 21 125/72 99 11/03/16 00:00 98.4 67 17 130/64 99 11/02/16 21:30 97.5 72 17 139/68 99 11/02/16 20:00 75 11/02/16 16:06 96.7 80 17 162/69 100 I/O 11/02/16 11/02/16 11/02/16 11/03/16 11/03/16 11/03/16 07:00 15:00 23:00 07:00 15:00 23:00 Intake Total 30 ml 400 ml 875 ml Output Total 0 ml 1300 ml Balance 30 ml 400 ml -425 ml Intake Oral 400 ml 875 ml IV Total 30 ml Output Urine Total 0 ml 1300 ml # Bowel Movements 1 0 Result Diagram: 11/03/16 0510 11/03/16 0510 Imaging Last Impressions Hepatobiliary Scan Nuclear Medicine 11/02/16 0000 Signed Impressions: Service Date/Time: Wednesday, November 02, 2016 10:08 - CONCLUSION: Negative exam. No scintigraphic findings of acute or chronic cholecystitis. Marquis Mcdonald MD Chest X-Ray 11/02/16 0000 Signed Impressions: Service Date/Time: Wednesday, November 02, 2016 05:12 - CONCLUSION: 1. Cardiomegaly and findings of vascular congestion without overt failure. Frandy Osborn MD Abdomen/Pelvis CT 11/02/16 0000 Signed Impressions: Service Date/Time: Wednesday, November 02, 2016 06:00 - CONCLUSION: 1. Gall bladder wall thickening. Cholecystitis is not excluded. Radionuclide imaging is recommended for further evaluation if clinically indicated. 2. Hepatomegaly 3. Fat-containing umbilical hernia 4. Nonspecific para-aortic adenopathy as above with bilateral inguinal adenopathy. PET/CT scan is recommended to further evaluation if clinically indicated. 5. Small pericardial effusion Frandy Osborn MD Objective Remarks GENERAL: Alert, NAD. SKIN: Warm and dry. HEAD: Normocephalic. EYES: No scleral icterus. No injection or drainage. NECK: Supple, trachea midline. No JVD or lymphadenopathy. CARDIOVASCULAR: Regular rate and rhythm without murmurs, gallops, or rubs. RESPIRATORY: Breath sounds equal bilaterally. No accessory muscle use. GASTROINTESTINAL: Abdomen soft, non-tender, nondistended. MUSCULOSKELETAL: No cyanosis, or edema. BACK: Nontender without obvious deformity. No CVA tenderness. Procedures None. A/P Assessment and Plan Mr. Yanes is a 56 year old male who was admitted on 11/02/2016 due to bilateral lower ext ulcers, abdominal pain. CT abd/pelvis showed possible cholecystitis. However, HIDA scan was negative for cholecystitis. General surgery evaluated patient and recommended no surgical intervention. Patient's Hgb was 6.5 on 2016 and subsequently he received 1 unit of PRBCs. Podiatry evaluated for bilateral lower ext ulcers. Podiatry recommended bilateral CAM boots and recommended fitted custom molded braces/AFO on discharge. - Abdominal pain - Improving. - Continue diabetic diet. - Abdominal pain could be related to gastroparesis. - If continues to be a persistent problem, Gastric emptying study could be considered during this admission or outpatient. - Will discontinue Zosyn as there is no evidence of Acute cholecystitis. - Acute anemia, no obvious GI bleed. - Will check Hemoccult X 3. - s/p 1 unit transfusion. - Will see if lab can run iron panel on sample obtained from 11/02/2016. - Will switch Protonix IV to PO. - Hypertension - continue Amlodipine 5mg Qday. - Anxiety - Lorazepam PRN. - Diabetic mellitus - currently controlled on sliding scale insulin and diabetic diet. Full code. Heparin SQ. Kendrick Mathis DO Nov 03, 2016 15:03
[2016-11-03] MEDS: amLODIPine BESYLATE 5 MG TAB PO SCH (15:19)
[2016-11-03] MEDS: SODIUM CHLOR 0.9% 1000 ML INJ 1,000 ML IV SCH (21:11)
[2016-11-04] VITALS (8 sets, daily range): BP systolic 137–163; BP diastolic 65–83; PULSE 67–91; RESP 16–20; TEMP 96–98.2; O2SAT 94–100
[2016-11-04 01:45] LABS: TRANSFERRIN IRON PROFILE 121 MG/DL (200-360)
[2016-11-04] MEDS: INSULIN ASPART SUPPLEMENTAL SCALE SQ SCH ×4 (06:02→21:00)
[2016-11-04 08:18] LABS: AUTOMATED NEUTROPHIL # 6.8 TH/MM3 (1.8-7.7); BASOPHIL # 0.1 TH/MM3 (0-0.2); BASOPHIL % 0.7 % (0.0-2.0); EOSINOPHIL # 0.3 TH/MM3 (0-0.4); EOSINOPHIL % 3.6 % (0.0-4.0); HEMATOCRIT 22.5 % (39.0-51.0); LYMPH % 14.5 % (9.0-44.0); LYMPHOCYTE # 1.4 TH/MM3 (1.0-4.8); MEAN CELL VOLUME 85.7 FL (80.0-100.0); MEAN CORPUSCULAR HEMOGLOBIN 29.8 PG (27.0-34.0); MEAN CORPUSCULAR HGB CONC 34.8 % (32.0-36.0); MONO % 9.8 % (0.0-8.0); NEUT % 71.4 % (16.0-70.0); PLATELET COUNT 490 TH/MM3 (150-450); RED BLOOD COUNT 2.63 MIL/MM3 (4.50-5.90); RED CELL DISTRIBUTION WIDTH 15.5 % (11.6-17.2); WHITE BLOOD COUNT 9.5 TH/MM3 (4.0-11.0)
[2016-11-04 08:23] LABS: HEMO FLAGS AUTO DIFF
[2016-11-04] MEDS: amLODIPine BESYLATE 5 MG TAB PO SCH (08:40)
[2016-11-04] MEDS: SODIUM CHLORIDE 0.9% FLUSH 5 ML FLUSH FLUSH SCH ×2 (08:40→21:00)
[2016-11-04] MEDS: PANTOPRAZOLE SOD 40 MG DELAYED RELEASE TAB PO SCH (08:40)
[2016-11-04] MEDS: THIORIDAZINE HCL 100 MG PO SCH (08:40)
[2016-11-04] MEDS: ASPIRIN EC 81 MG TABEC PO SCH (08:40)
[2016-11-04] MEDS: HEPARIN SODIUM - SQ 10,000 UNITS/ML VIAL SQ SCH ×2 (08:40→21:47)
[2016-11-04] MEDS: ACETAMINOPHEN/HYDROcodone 325 MG/5 MG TAB PO PRN ×3 (08:48→17:02)
[2016-11-04 09:11] LABS: BANDS 5 % (0-6); EOSINOPHILS 4 % (0-4); METAMYELOCYTES 1 % (0-1); MYELOCYTES 3 % (0-0); PLATELET ESTIMATE SMEAR HIGH (NORMAL); PLATELET MORPHOLOGY NORMAL (NORMAL); POLYS (SEG NEUTROPHILS) 65 % (16-70); SCAN/DIFF FINAL DIFF MANUAL; WBC DIFF SAMPLE 100
[2016-11-04 09:24] LABS: ALKALINE PHOSPHATASE 538 U/L (45-117); ALT (GPT) 12 U/L (12-78); ANION GAP 8 MEQ/L (5-15); AST (GOT) 14 U/L (15-37); BICARBONATE 24.6 MEQ/L (21.0-32.0); BLOOD UREA NITROGEN 23 MG/DL (7-18); CHLORIDE 105 MEQ/L (98-107); GLOMERULAR FILTRATION RATE 32 ML/MIN (>89); POTASSIUM 4.5 MEQ/L (3.5-5.1); SODIUM (NA) 138 MEQ/L (136-145); TOTAL BILIRUBIN ADULT 0.4 MG/DL (0.2-1.0)
[2016-11-04] MEDS: SODIUM CHLOR 0.9% 1000 ML INJ 1,000 ML IV SCH (09:30)
[2016-11-04] MEDS ORDERED: AMLO5 PO (13:13)
--- NOTE | 2016-11-04 13:16 | HHI.DS ---
cc: Jack Rod MD Discharge Summary Admission Date Nov 02, 2016 at 6:43 am Discharge Date: Nov 04, 2016 Admitting Diagnosis Infected leg ulcer (1) Abdominal pain ICD Code: R10.9 (2) DM (diabetes mellitus) ICD Code: E11.9 (3) Charcot foot due to diabetes mellitus ICD Code: E11.610 (4) Anemia ICD Code: D64.9 Diagnosis: Principal Procedures None. Brief History - From Admission 56 Y CM. SIGNED OUT AMA FROM SNF RECENTLY. PT HAS BEEN ALOOF, HOWEVER REQUESTING REFILLS FROM MY OFFICE THIS WEEK. PT PRESENTED TO THE ER THIS AM WITH LEG PAIN, WEAKNESS, AND ABDOMINAL PAIN. I WAS CALLED BY THE ER MD FOR ADMIT. SHE REPORTS CHOLECYSTITIS AND ELEV LFT'S, ADMIN CLINDA IV. BLOOD CULTURES TAKEN. PT APPEARS DESHEVELED AND ILL. C/O ABDOMINAL PAIN AND RECURRENCE OF FEET INFECTION. CBC/BMP: 11/04/16 0756 11/04/16 0756 Significant Findings Laboratory Tests Test 11/02/16 11/02/16 11/03/16 11/04/16 04:30 06:00 05:10 07:56 White Blood Count 12.1 TH/MM3 (4.0-11.0) Red Blood Count 2.53 MIL/MM3 2.17 MIL/MM3 2.63 MIL/MM3 (4.50-5.90) (4.50-5.90) (4.50-5.90) Hemoglobin 7.3 GM/DL 6.5 GM/DL 7.8 GM/DL (13.0-17.0) (13.0-17.0) (13.0-17.0) Hematocrit 21.8 % 18.8 % 22.5 % (39.0-51.0) (39.0-51.0) (39.0-51.0) Platelet Count 476 TH/MM3 490 TH/MM3 (150-450) (150-450) Monocytes (%) (Auto) 12.8 % 10.7 % 9.8 % (0.0-8.0) (0.0-8.0) (0.0-8.0) Neutrophils # (Auto) 7.8 TH/MM3 (1.8-7.7) Monocytes # (Auto) 1.5 TH/MM3 1.0 TH/MM3 (0-0.9) (0-0.9) Sodium Level 129 MEQ/L 134 MEQ/L (136-145) (136-145) Chloride Level 97 MEQ/L (98-107) Blood Urea Nitrogen 24 MG/DL (7-18) 29 MG/DL (7-18) 23 MG/DL (7-18) Creatinine 2.05 MG/DL 2.16 MG/DL 2.16 MG/DL (0.60-1.30) (0.60-1.30) (0.60-1.30) Estimat Glomerular Filtration 34 ML/MIN (>89) 32 ML/MIN (>89) 32 ML/MIN (>89) Rate Random Glucose 187 MG/DL 107 MG/DL (74-106) (74-106) Aspartate Amino Transf 13 U/L (15-37) 10 U/L (15-37) 14 U/L (15-37) (AST/SGOT) Alkaline Phosphatase 519 U/L 449 U/L 538 U/L (45-117) (45-117) (45-117) Total Creatine Kinase 31 U/L (39-308) Troponin I LESS THAN 0.02 NG/ML (0.02-0.05) Total Protein 8.4 GM/DL 8.3 GM/DL (6.4-8.2) (6.4-8.2) Albumin 2.1 GM/DL 1.9 GM/DL 1.9 GM/DL (3.4-5.0) (3.4-5.0) (3.4-5.0) Iron Level 35 MCG/DL (65-175) Total Iron Binding Capacity 169 MCG/DL (250-450) Urine Protein 100 mg/dL (NEG-TRACE) Alanine Aminotransferase 10 U/L (12-78) (ALT/SGPT) Neutrophils (%) (Auto) 71.4 % (16.0-70.0) Monocytes % 11 % (0-8) Myelocytes 3 % (0-0) Platelet Estimate HIGH (NORMAL) Imaging Last Impressions Hepatobiliary Scan Nuclear Medicine 11/02/16 0000 Signed Impressions: Service Date/Time: Wednesday, November 02, 2016 10:08 - CONCLUSION: Negative exam. No scintigraphic findings of acute or chronic cholecystitis. Marquis Mcdonald MD Chest X-Ray 11/02/16 0000 Signed Impressions: Service Date/Time: Wednesday, November 02, 2016 05:12 - CONCLUSION: 1. Cardiomegaly and findings of vascular congestion without overt failure. Frandy Osborn MD Abdomen/Pelvis CT 11/02/16 0000 Signed Impressions: Service Date/Time: Wednesday, November 02, 2016 06:00 - CONCLUSION: 1. Gall bladder wall thickening. Cholecystitis is not excluded. Radionuclide imaging is recommended for further evaluation if clinically indicated. 2. Hepatomegaly 3. Fat-containing umbilical hernia 4. Nonspecific para-aortic adenopathy as above with bilateral inguinal adenopathy. PET/CT scan is recommended to further evaluation if clinically indicated. 5. Small pericardial effusion Frandy Osborn MD PE at Discharge GENERAL: Alert, NAD. SKIN: Warm and dry. HEAD: Normocephalic. EYES: No scleral icterus. No injection or drainage. NECK: Supple, trachea midline. No JVD or lymphadenopathy. CARDIOVASCULAR: Regular rate and rhythm without murmurs, gallops, or rubs. RESPIRATORY: Breath sounds equal bilaterally. No accessory muscle use. GASTROINTESTINAL: Abdomen soft, non-tender, nondistended. MUSCULOSKELETAL: No cyanosis, or edema. BACK: Nontender without obvious deformity. No CVA tenderness. Pt update on day of discharge Mr. Yanes is doing well. No fever, chills. Denies any abdominal pain. He has had bowel movement. No melena or hematochezia. Wants to go home. Hospital Course Mr. Yanes is a 56 year old male who was admitted on 11/02/2016 due to bilateral lower ext ulcers, abdominal pain. CT abd/pelvis showed possible cholecystitis. However, HIDA scan was negative for cholecystitis. General surgery evaluated patient and recommended no surgical intervention. Patient's Hgb was 6.5 on 2016 and subsequently he received 1 unit of PRBCs. Podiatry evaluated for bilateral lower ext ulcers. Podiatry recommended bilateral CAM boots and recommended fitted custom molded braces/AFO on discharge. - Abdominal pain - Improving. - Continue diabetic diet. - Abdominal pain could be related to gastroparesis. - If continues to be a persistent problem. Will request Gastric emptying study in the outpatient setting. - Discontinued Zosyn as there is no evidence of Acute cholecystitis. - Acute anemia, no obvious GI bleed. - May be due to chronic disease - Hemoccult negative. - s/p 1 unit transfusion. - Iron panel on 11/02/2016 blood sample shows Iron 35, TIBC 169, % sat 20.7. - Hypertension - continue Amlodipine 5mg Qday. - Anxiety - Lorazepam PRN. - Diabetic mellitus - currently controlled on sliding scale insulin and diabetic diet. Discussed with Dr. Perez (Podiatry). Patient needs to call his office with regards to fitted boot. Will d/c patient home with home health. Pt Condition on Discharge: Good Discharge Disposition: Disch w/ Home Health Serv Discharge Time: > 30 minutes Discharge Instructions DIET: Follow Instructions for: Diabetic Diet Activities you can perform: Regular-No Restrictions Follow up Referrals: PCP Follow-up - 1 Week Podiatry - 2-3 Days with Chaitanya Perez DPM New Medications: Amlodipine (Norvasc) 5 Mg Tab 5 MG PO DAILY Blood Pressure Management #30 TAB Continued Medications: Aspirin DR (Aspirin 81) 81 Mg Tabdr 81 MG PO DAILY Ref 0 TAB Glipizide (Glipizide) 5 Mg Tab 5 MG PO BIDAC Take 30 minutes before a meal Blood Sugar Management #60 Ref 0 TAB Hydrocodone-Acetaminophen (Hydrocodone-Acetaminophen) 5-325 mg Tab 1 TAB PO Q4H PRN PAIN GREATER THAN 5 #90 Ref 0 TAB Insulin Aspart Inj (Novolog Inj) 100 Unit/Ml Inj 1 UNITS SQ ACHS SLIDING SCALE DM Days 90 BOTTLE Lorazepam (Ativan) 0.5 Mg Tab 0.5 MG PO Q8H PRN SEVERE ANXIETY OR AGITATION #90 Ref 5 TAB Thioridazine (Thioridazine) 100 Mg Tab 200 MG PO DAILY Schizophrenia #30 Ref 0 TAB Kendrick Mathis DO Nov 04, 2016 1:16 pm
[2016-11-04] MEDS ORDERED: HYDR-3516 PO (13:24)
--- NOTE | 2016-11-04 13:29 | HHI.FF ---
Face to Face Verification Diagnosis: (1) Type 2 diabetes mellitus with foot ulcer (2) Abdominal pain (3) Anemia Physical Therapy Order: Evaluate and Treat, Improve ambulation, Strength and gait training Home Health Nursing Order: Medical education Signs/symptoms of disease process Diabetic education Medication education-adverse effect Wound care and dressing changes Nursing assessment with vital signs I have seen patient Alexei Yanse on 11/04/16. My clinical findings support the need for the requested home health care services because: Ltd mobility - disease progression Patient has SOB Deconditioned w/ increased weakness Need for psychosocial assistance Impaired cognition/judgement Infection w/ risk of complications I certify that my clinical findings support that this patient is homebound because: Unsafe to leave home unassisted Need for psychosocial assistance Unable to use public transportation Kendrick Mathis DO Nov 04, 2016 1:28 pm
--- NOTE | 2016-11-04 15:42 | HHI.PR ---
Subjective Remarks Follow up for fatigue, abdominal pain, lower ext ulcers. Patient wanted to go home today. However, home health agency cannot provide services due to high level of care. Patient denies any acute symptoms at this point. Discussed with transformer builder who will provide with a fitted custom molded braces/AFO in his office. Patient denies any abdominal pain, shortness of breath, fever or chills. Objective Vitals Vital Signs Date Time Temp Pulse Resp B/P Pulse Ox O2 Delivery O2 Flow Rate FiO2 11/04/16 12:01 97.8 76 17 146/65 98 11/04/16 10:18 75 11/04/16 08:00 98.2 74 18 137/70 100 11/04/16 04:09 96.0 75 18 154/79 96 11/04/16 00:43 96.7 67 20 143/67 96 11/03/16 20:30 96.8 70 20 183/87 98 11/03/16 18:37 21 11/03/16 16:00 97.9 78 18 156/79 99 I/O 11/03/16 11/03/16 11/03/16 11/04/16 11/04/16 11/04/16 07:00 15:00 23:00 07:00 15:00 23:00 Intake Total 875 ml 480 ml 480 ml 522 ml Output Total 1300 ml 400 ml 1600 ml 2350 ml 250 ml Balance -425 ml 80 ml -1120 ml -1828 ml -250 ml Intake Oral 875 ml 480 ml 480 ml IV Total 522 ml Output Urine Total 1300 ml 400 ml 1600 ml 2350 ml 250 ml # Bowel Movements 0 2 Result Diagram: 11/04/16 0756 11/04/16 0756 Imaging Last Impressions Hepatobiliary Scan Nuclear Medicine 11/02/16 0000 Signed Impressions: Service Date/Time: Wednesday, November 02, 2016 10:08 - CONCLUSION: Negative exam. No scintigraphic findings of acute or chronic cholecystitis. Marquis Mcdonald MD Chest X-Ray 11/02/16 0000 Signed Impressions: Service Date/Time: Wednesday, November 02, 2016 05:12 - CONCLUSION: 1. Cardiomegaly and findings of vascular congestion without overt failure. Frandy Osborn MD Abdomen/Pelvis CT 11/02/16 0000 Signed Impressions: Service Date/Time: Wednesday, November 02, 2016 06:00 - CONCLUSION: 1. Gall bladder wall thickening. Cholecystitis is not excluded. Radionuclide imaging is recommended for further evaluation if clinically indicated. 2. Hepatomegaly 3. Fat-containing umbilical hernia 4. Nonspecific para-aortic adenopathy as above with bilateral inguinal adenopathy. PET/CT scan is recommended to further evaluation if clinically indicated. 5. Small pericardial effusion Frandy Osborn MD Objective Remarks GENERAL: Alert, NAD. SKIN: Warm and dry. HEAD: Normocephalic. EYES: No scleral icterus. No injection or drainage. NECK: Supple, trachea midline. No JVD or lymphadenopathy. CARDIOVASCULAR: Regular rate and rhythm without murmurs, gallops, or rubs. RESPIRATORY: Breath sounds equal bilaterally. No accessory muscle use. GASTROINTESTINAL: Abdomen soft, non-tender, nondistended. MUSCULOSKELETAL: No cyanosis, or edema. BACK: Nontender without obvious deformity. No CVA tenderness. Procedures None. A/P Problem List: (1) Abdominal pain ICD Code: R10.9 Status: Acute (2) DM (diabetes mellitus) ICD Code: E11.9 Status: Chronic (3) Charcot foot due to diabetes mellitus ICD Code: E11.610 Status: Acute (4) Anemia ICD Code: D64.9 Status: Acute Assessment and Plan Mr. Yanes is a 56 year old male who was admitted on 11/02/2016 due to bilateral lower ext ulcers, abdominal pain. CT abd/pelvis showed possible cholecystitis. However, HIDA scan was negative for cholecystitis. General surgery evaluated patient and recommended no surgical intervention. Patient's Hgb was 6.5 on 2016 and subsequently he received 1 unit of PRBCs. Podiatry evaluated for bilateral lower ext ulcers. Podiatry recommended bilateral CAM boots and recommended fitted custom molded braces/AFO on discharge. - Abdominal pain - resolved. - Continue diabetic diet. - Abdominal pain could be related to gastroparesis. - If continues to be a persistent problem, Gastric emptying study can be done in the hospital or in the outpatient setting. - Will discontinue Zosyn as there is no evidence of Acute cholecystitis. - Acute anemia, no obvious GI bleed, likely anemia of chronic disease. - Hemoccult negative. Anemia is likely due to chronic disease. - s/p 1 unit transfusion. - Iron study shows iron 35, TIBC 169, iron saturation 20.7. - Continue Protonix by mouth. - Hypertension - continue Amlodipine 5mg Qday. - Anxiety - Lorazepam PRN. - Diabetic mellitus - currently controlled on sliding scale insulin and diabetic diet. Full code. Heparin SQ. Discharge: Patient wants to go home. PT recommends Rehab. Home health agency is not willing to provide services due to high level of care needed for this patient. We'll hold off discharge today. Dr. Rod will return tomorrow and can decide between home health versus SNF. Kendrick Mathis DO Nov 04, 2016 3:42 pm
[2016-11-05 00:25] VITALS: BP 156/65; PULSE 80; RESP 18; TEMP 99.3; O2SAT 96
[2016-11-05 04:26] VITALS: BP 164/73; PULSE 81; RESP 18; TEMP 98; O2SAT 95
[2016-11-05] MEDS: INSULIN ASPART SUPPLEMENTAL SCALE SQ SCH ×3 (07:00→16:00)
[2016-11-05 08:01] LABS: AUTOMATED NEUTROPHIL # 8.6 TH/MM3 (1.8-7.7); BASOPHIL # 0.1 TH/MM3 (0-0.2); BASOPHIL % 0.6 % (0.0-2.0); EOSINOPHIL # 0.2 TH/MM3 (0-0.4); EOSINOPHIL % 1.4 % (0.0-4.0); HEMATOCRIT 22.3 % (39.0-51.0); HEMO FLAGS DIFF FINAL; LYMPH % 14.5 % (9.0-44.0); LYMPHOCYTE # 1.7 TH/MM3 (1.0-4.8); MEAN CELL VOLUME 87.5 FL (80.0-100.0); MEAN CORPUSCULAR HEMOGLOBIN 29.2 PG (27.0-34.0); MEAN CORPUSCULAR HGB CONC 33.4 % (32.0-36.0); MONO % 10.3 % (0.0-8.0); NEUT % 73.2 % (16.0-70.0); PLATELET COUNT 492 TH/MM3 (150-450); RED BLOOD COUNT 2.55 MIL/MM3 (4.50-5.90); WHITE BLOOD COUNT 11.8 TH/MM3 (4.0-11.0)
[2016-11-05 08:18] VITALS: BP 169/79; PULSE 81; RESP 22; TEMP 98.4; O2SAT 95
[2016-11-05 08:27] LABS: ALKALINE PHOSPHATASE 512 U/L (45-117); ALT (GPT) 10 U/L (12-78); ANION GAP 9 MEQ/L (5-15); AST (GOT) 12 U/L (15-37); BICARBONATE 22.4 MEQ/L (21.0-32.0); BLOOD UREA NITROGEN 18 MG/DL (7-18); CHLORIDE 104 MEQ/L (98-107); GLOMERULAR FILTRATION RATE 35 ML/MIN (>89); POTASSIUM 4.2 MEQ/L (3.5-5.1); SODIUM (NA) 135 MEQ/L (136-145); TOTAL BILIRUBIN ADULT 0.3 MG/DL (0.2-1.0)
[2016-11-05 08:56] VITALS: PULSE 80
[2016-11-05] MEDS: ASPIRIN EC 81 MG TABEC PO SCH (08:56)
[2016-11-05] MEDS: THIORIDAZINE HCL 100 MG PO SCH (08:56)
[2016-11-05] MEDS: PANTOPRAZOLE SOD 40 MG DELAYED RELEASE TAB PO SCH (08:56)
[2016-11-05] MEDS: HEPARIN SODIUM - SQ 10,000 UNITS/ML VIAL SQ SCH (08:56)
[2016-11-05] MEDS: amLODIPine BESYLATE 5 MG TAB PO SCH (08:56)
[2016-11-05] MEDS: SODIUM CHLOR 0.9% 1000 ML INJ 1,000 ML IV SCH (08:57)
[2016-11-05] MEDS: SODIUM CHLORIDE 0.9% FLUSH 5 ML FLUSH FLUSH SCH (08:57)
--- NOTE | 2016-11-05 10:18 | HHI.DS ---
Discharge Summary Admission Date Nov 02, 2016 at 06:43 Discharge Date: Nov 05, 2016 Admitting Diagnosis Infected leg ulcer (1) Abdominal pain (2) DM (diabetes mellitus) (3) Charcot foot due to diabetes mellitus (4) Anemia Diagnosis: Principal Brief History 56 Y CM. SIGNED OUT AMA FROM [facility] RECENTLY. PT HAS BEEN ALOOF, HOWEVER REQUESTING REFILLS FROM MY OFFICE THIS WEEK. PT PRESENTED TO THE ER THIS AM WITH LEG PAIN, WEAKNESS, AND ABDOMINAL PAIN. I WAS CALLED BY THE ER MD FOR ADMIT. SHE REPORTS CHOLECYSTITIS AND ELEV LFT'S, ADMIN CLINDA IV. BLOOD CULTURES TAKEN. PT APPEARS DESHEVELED AND ILL. C/O ABDOMINAL PAIN AND RECURRENCE OF FEET INFECTION. CBC/BMP: 11/05/16 0725 11/05/16 0725 Significant Findings Laboratory Tests Test 11/03/16 11/04/16 11/05/16 05:10 07:56 07:25 Red Blood Count 2.17 MIL/MM3 2.63 MIL/MM3 2.55 MIL/MM3 (4.50-5.90) (4.50-5.90) (4.50-5.90) Hemoglobin 6.5 GM/DL 7.8 GM/DL 7.5 GM/DL (13.0-17.0) (13.0-17.0) (13.0-17.0) Hematocrit 18.8 % 22.5 % 22.3 % (39.0-51.0) (39.0-51.0) (39.0-51.0) Monocytes (%) (Auto) 10.7 % 9.8 % (0.0-8.0) 10.3 % (0.0-8.0) (0.0-8.0) Monocytes # (Auto) 1.0 TH/MM3 1.2 TH/MM3 (0-0.9) (0-0.9) Sodium Level 134 MEQ/L 135 MEQ/L (136-145) (136-145) Blood Urea Nitrogen 29 MG/DL (7-18) 23 MG/DL (7-18) Creatinine 2.16 MG/DL 2.16 MG/DL 2.01 MG/DL (0.60-1.30) (0.60-1.30) (0.60-1.30) Estimat Glomerular Filtration 32 ML/MIN (>89) 32 ML/MIN (>89) 35 ML/MIN (>89) Rate Random Glucose 107 MG/DL 73 MG/DL (74-106) (74-106) Aspartate Amino Transf 10 U/L (15-37) 14 U/L (15-37) 12 U/L (15-37) (AST/SGOT) Alanine Aminotransferase 10 U/L (12-78) 10 U/L (12-78) (ALT/SGPT) Alkaline Phosphatase 449 U/L 538 U/L 512 U/L (45-117) (45-117) (45-117) Albumin 1.9 GM/DL 1.9 GM/DL 1.9 GM/DL (3.4-5.0) (3.4-5.0) (3.4-5.0) Platelet Count 490 TH/MM3 492 TH/MM3 (150-450) (150-450) Neutrophils (%) (Auto) 71.4 % 73.2 % (16.0-70.0) (16.0-70.0) Monocytes % 11 % (0-8) Myelocytes 3 % (0-0) Platelet Estimate HIGH (NORMAL) Total Protein 8.3 GM/DL 8.3 GM/DL (6.4-8.2) (6.4-8.2) White Blood Count 11.8 TH/MM3 (4.0-11.0) Neutrophils # (Auto) 8.6 TH/MM3 (1.8-7.7) PE at Discharge GENERAL: SKIN: Warm and dry. HEAD: Atraumatic. Normocephalic. EYES: Pupils equal and round. No scleral icterus. No injection or drainage. ENT: No nasal bleeding or discharge. Mucous membranes pink and moist. NECK: Trachea midline. No JVD. CARDIOVASCULAR: Regular rate and rhythm. RESPIRATORY: No accessory muscle use. Clear to auscultation. Breath sounds equal bilaterally. GASTROINTESTINAL: Abdomen soft, non-tender, nondistended. Hepatic and splenic margins not palpable. MUSCULOSKELETAL: Extremities with b charcots and stable ulcers NEUROLOGICAL: Awake and alert. No obvious cranial nerve deficits. Motor grossly within normal limits. Five out of 5 muscle strength in the arms and legs. Normal speech. PSYCHIATRIC: Appropriate mood and affect; insight and judgment normal. Hospital Course 56 y CM, ADMIT WITH DM ULCERS AND TRANSFUSED. PT DEMANDS DC TODAY OR AMA. WILL ORDER HHC AND MAYBE DC. PT REFUSES SNF PLACEMENT. PT AOX3. Pt Condition on Discharge: Good Discharge Disposition: Disch w/ Home Health Serv Discharge Instructions DIET: Follow Instructions for: Diabetic Diet Activities you can perform: Regular-No Restrictions Follow up Referrals: PCP Follow-up - 1 Week Podiatry - 2-3 Days with Chaitanya Perez DPM New Medications: Amlodipine (Norvasc) 5 Mg Tab 5 MG PO DAILY Blood Pressure Management #30 TAB Changed Medications: Hydrocodone-Acetaminophen (Hydrocodone-Acetaminophen) 5-325 mg Tab 1 TAB PO Q6HR PRN PAIN GREATER THAN 5 #20 Ref 0 TAB (Changed from: Q4H; 90) Continued Medications: Aspirin DR (Aspirin 81) 81 Mg Tabdr 81 MG PO DAILY Ref 0 TAB Glipizide (Glipizide) 5 Mg Tab 5 MG PO BIDAC Take 30 minutes before a meal Blood Sugar Management #60 Ref 0 TAB Insulin Aspart Inj (Novolog Inj) 100 Unit/Ml Inj 1 UNITS SQ ACHS SLIDING SCALE DM Days 90 BOTTLE Lorazepam (Ativan) 0.5 Mg Tab 0.5 MG PO Q8H PRN SEVERE ANXIETY OR AGITATION #90 Ref 5 TAB Thioridazine (Thioridazine) 100 Mg Tab 200 MG PO DAILY Schizophrenia #30 Ref 0 TAB Jack Rod MD Nov 05, 2016 10:18
[2016-11-05 11:59] VITALS: BP 172/74; PULSE 76; RESP 22; TEMP 98.6; O2SAT 98
== END 2016-11-05 18:37 | disposition home health service (06) | DRG 74 ==
LOC: NEPC 04:24 → NEDA 06:43 → N05A 12:00
PROVIDERS: ADMIT Family Medicine; ATTEND Family Medicine
PROC: 30233N1 Transfusion of Nonautologous Red Blood Cells into Peripheral Vein, Percutaneous Approach (ICD-10-PCS; principal; 2016-11-03)
DX: E11.43 Type 2 diabetes mellitus with diabetic autonomic (poly)neuropathy (principal); N17.9 Acute kidney failure, unspecified; K31.84 Gastroparesis; E11.22 Type 2 diabetes mellitus with diabetic chronic kidney disease; E11.621 Type 2 diabetes mellitus with foot ulcer; E87.1 Hypo-osmolality and hyponatremia; K81.9 Cholecystitis, unspecified; L97.419 Non-pressure chronic ulcer of right heel and midfoot with unspecified severity; I83.229 Varicose veins of left lower extremity with both ulcer of unspecified site and inflammation; L97.429 Non-pressure chronic ulcer of left heel and midfoot with unspecified severity; E11.610 Type 2 diabetes mellitus with diabetic neuropathic arthropathy; K42.9 Umbilical hernia without obstruction or gangrene; I83.019 Varicose veins of right lower extremity with ulcer of unspecified site; I83.008 Varicose veins of unspecified lower extremity with ulcer other part of lower leg; Z88.1 Allergy status to other antibiotic agents; F41.9 Anxiety disorder, unspecified; Z88.8 Allergy status to other drugs, medicaments and biological substances; N18.2 Chronic kidney disease, stage 2 (mild); F20.9 Schizophrenia, unspecified; F17.200 Nicotine dependence, unspecified, uncomplicated; Z79.4 Long term (current) use of insulin; E11.65 Type 2 diabetes mellitus with hyperglycemia; Z91.19 Patient's noncompliance with other medical treatment and regimen; F10.20 Alcohol dependence, uncomplicated; D63.8 Anemia in other chronic diseases classified elsewhere; I12.9 Hypertensive chronic kidney disease with stage 1 through stage 4 chronic kidney disease, or unspecified chronic kidney disease
CPT/HCPCS: 36430; 71010; 74176; 78227; 80053; 81001; 82272; 82550; 82948; 83540; 83550; 83605; 84484; 85007; 85025; 85027; 86850; 86900; 86901; 86920; 87040; 93005; A9537; C9113; J1644; J1815; J1885; J2543; J2805; J7030; L2114; P9016

== ENCOUNTER 2016-11-08 16:36 | Emergency (ER) | payer MEDICARE, MEDICAID ==
[~2016-11-08] VITALS: Ht 177.8 cm; Wt 98.7 kg
[~2016-11-08 16:36] MED LIST changes: +AMLO5 PO
[2016-11-08 16:42] VITALS: BP 130/69; PULSE 85; RESP 16; TEMP 97.3; O2SAT 100
[2016-11-08 19:23] LABS: AUTOMATED NEUTROPHIL # 3.9 TH/MM3 (1.8-7.7); BASOPHIL % 0.4 % (0.0-2.0); EOSINOPHIL # 0.1 TH/MM3 (0-0.4); EOSINOPHIL % 1.7 % (0.0-4.0); HEMATOCRIT 26.6 % (39.0-51.0); HEMO FLAGS DIFF FINAL; LYMPH % 32.1 % (9.0-44.0); LYMPHOCYTE # 2.1 TH/MM3 (1.0-4.8); MEAN CORPUSCULAR HGB CONC 33.8 % (32.0-36.0); MONO % 6.6 % (0.0-8.0); NEUT % 59.2 % (16.0-70.0); PLATELET COUNT 694 TH/MM3 (150-450); RED BLOOD COUNT 3.09 MIL/MM3 (4.50-5.90); WHITE BLOOD COUNT 6.5 TH/MM3 (4.0-11.0)
[2016-11-08 19:30] LABS: CHLORIDE 98 MEQ/L (98-107); POTASSIUM 4.1 MEQ/L (3.5-5.1); SODIUM (NA) 132 MEQ/L (136-145)
[2016-11-08 19:30] LABS: BLOOD, URINE TRACE (NEG); GLUCOSE,URINE NEG (NEG); KETONE, URINE NEG (NEG); NITRITE,URINE NEG (NEG); PH, URINE 5.5 (5.0-8.5)
[2016-11-08 19:34] LABS: ANION GAP 11 MEQ/L (5-15); BICARBONATE 23.3 MEQ/L (21.0-32.0); BLOOD UREA NITROGEN 17 MG/DL (7-18)
[2016-11-08 19:36] LABS: COMMENT (UR) CULT NOT INDICATED; CULTURE IF INDICATED CULT NOT INDICATED; SQUAMOUS EPITHELIAL CELL URINE 0-5 /hpf (0-5); URINE COLOR YELLOW (YELLW/STRAW); WBC, URINE 0-2 /hpf (0-5)
[2016-11-08 19:37] LABS: ALT (GPT) 19 U/L (12-78); AST (GOT) 18 U/L (15-37); GLOMERULAR FILTRATION RATE 45 ML/MIN (>89)
[2016-11-08 19:38] LABS: TOTAL BILIRUBIN ADULT 0.2 MG/DL (0.2-1.0)
[2016-11-08 19:40] LABS: ALKALINE PHOSPHATASE 467 U/L (45-117)
--- NOTE | 2016-11-08 19:51 | RADHPO ---
EXAM DATE/TIME: 11/08/2016 19:26 [facility] COMPARISON: CHEST SINGLE AP, November 02, 2016, 5:12. INDICATIONS : Short of breath. MEDICAL HISTORY : Diabetes mellitus type II. SURGICAL HISTORY : None. ENCOUNTER: Initial ACUITY: 1 day PAIN SCORE: 0/10 LOCATION: Bilateral chest FINDINGS: A single view of the chest demonstrates the lungs to be symmetrically aerated without evidence of mas s, infiltrate or effusion. The cardiomediastinal contours are unremarkable. Osseous structures are intact. CONCLUSION: No acute disease. Nakul Traore MD on November 08, 2016 at 19:48 Board Certified Radiologist. This report was verified electronically.
--- NOTE | 2016-11-08 20:04 | PD ---
HPI Chief Complaint: Abdominal Pain Time Seen by Provider: 18:34 Travel History International Travel<30 days: No Contact w/Intl Traveler<30days: No Traveled to known affect area: No History of Present Illness HPI This 56-year-old male is brought by ambulance. He has multiple complaints. He says his abdomen hurts breath. She does have a lot of medical issues diabetic for many years. He has ulcerations on both of his feet. He was discharged from the hospital a few days ago. The discharge summary said the patient demanded discharge and refused placement in a alf home. While in the hospital he had a CT scan of his abdomen and pelvis which shows gallbladder wall thickening. She had a HIDA scan which was negative. He had a surgical consultation which probably did not have a surgical issue with his abdomen. He does have a history of schizophrenia PFSH Past Medical History Hx Anticoagulant Therapy: Yes Arthritis: No Asthma: No Autoimmune Disease: No Blood Disorders: No Anxiety: Yes Depression: Yes Heart Rhythm Problems: No Cancer: No Cardiovascular Problems: Yes (HTN) High Cholesterol: No Chemotherapy: No Chest Pain: No Congestive Heart Failure: No COPD: No Cerebrovascular Accident: No Diabetes: Yes Patient Takes Glucophage: No Diminished Hearing: No Endocrine: No Gastrointestinal Disorders: No GERD: No Glaucoma: No Genitourinary: No Headaches: No Hepatitis: No Hiatal Hernia: No Heparin Induced Thrombocytopen: No Hypertension: Yes Immune Disorder: No Implanted Vascular Access Dvce: No Kidney Stones: No Musculoskeletal: No Neurologic: No Psychiatric: Yes (schizoprenia controlled ) Reproductive: No Respiratory: No Migraines: No Myocardial Infarction: No Radiation Therapy: No Renal Failure: No Schizophrenia: Yes Seizures: No Sickle Cell Disease: No Sleep Apnea: No Thyroid Disease: No Ulcer: No Past Surgical History Abdominal Surgery: No AICD: No Appendectomy: No Arteriovenous Shunt: No Cardiac Surgery: No Cholecystectomy: No Ear Surgery: No Endocrine Surgery: No Eye Surgery: No Genitourinary Surgery: No Gynecologic Surgery: No Insulin Pump: No Joint Replacement: No Neurologic Surgery: No Oral Surgery: No Pacemaker: No Thoracic Surgery: No Other Surgery: Yes (R FOOT ) Social History Alcohol Use: No (DENIES) Tobacco Use: No (QUIT 2012) Substance Use: No Allergies-Medications (Allergen,Severity, Reaction): Coded Allergies: Haldol (Verified Allergy, Severe, BLINDNESS, 11/08/16) Vancomycin (Verified Allergy, Severe, 11/08/16) Levaquin (Verified Allergy, Intermediate, Cramping, 11/08/16) Prolixin (Verified Allergy, Unknown, "[facility]", 11/08/16) *MDRO Multi-Drug Resistant Organism (Verified Adverse Reaction, Unknown, VRE, 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 Reported Meds & Prescriptions Reported Meds & Active Scripts Active Hydrocodone-Acetaminophen 5-325 mg Tab 1 Tab PO Q6HR PRN Norvasc (Amlodipine Besylate) 5 Mg Tab 5 Mg PO DAILY Ativan (Lorazepam) 0.5 Mg Tab 0.5 Mg PO Q8H PRN Novolog Inj (Insulin Aspart) 100 Unit/Ml Inj 1 Units SQ ACHS SLIDING SCALE 90 Days Reported Glipizide 5 Mg Tab 5 Mg PO BIDAC Take 30 minutes before a meal Aspirin 81 (Aspirin) 81 Mg Tabdr 81 Mg PO DAILY Thioridazine (Thioridazine HCl) 100 Mg Tab 200 Mg PO DAILY Review of Systems General / Constitutional: No: Fever, Chills Eyes: No: Diploplia, Blurred Vision HENT: No: Headaches, Vertigo Cardiovascular: No: Chest Pain or Discomfort, Palpitations Respiratory: No: Shortness of Breath Gastrointestinal: Positive: Abdominal Pain, No: Nausea, Vomiting Genitourinary: No: Frequency Skin: No Rash, No Itching Physical Exam Narrative GENERAL: Well-developed male SKIN: Warm and dry. HEAD: Atraumatic. Normocephalic. EYES: Pupils equal and round. No scleral icterus. No injection or drainage. ENT: No nasal bleeding or discharge. Mucous membranes pink and moist. NECK: Trachea midline. No JVD. CARDIOVASCULAR: Regular rate and rhythm. No murmur appreciated. RESPIRATORY: No accessory muscle use. Clear to auscultation. Breath sounds equal bilaterally. GASTROINTESTINAL: Abdomen soft, non-tender, nondistended. Hepatic and splenic margins not palpable. MUSCULOSKELETAL: No obvious deformities. He has some ulcerations on both legs. There is no purulent drainage. NEUROLOGICAL: Awake and alert. No obvious cranial nerve deficits. Motor grossly within normal limits. Normal speech. PSYCHIATRIC: Appropriate mood and affect; insight and judgment normal. Data Data Last Documented VS Vital Signs Date Time Temp Pulse Resp B/P Pulse Ox O2 Delivery O2 Flow Rate FiO2 11/08/16 16:42 97.3 85 16 130/69 100 Orders Electrocardiogram (11/08/16 18:45) Complete Blood Count With Diff (11/08/16 18:45) Comprehensive Metabolic Panel (11/08/16 18:45) Troponin I (11/08/16 18:45) B-Type Natriuretic Peptide (11/08/16 18:45) Lipase (11/08/16 18:45) Urinalysis - C+S If Indicated (11/08/16 18:45) Chest, Single Ap (11/08/16 18:45) Labs Laboratory Tests Test 11/08/16 11/08/16 19:10 19:25 White Blood Count 6.5 TH/MM3 Red Blood Count 3.09 MIL/MM3 Hemoglobin 9.0 GM/DL Hematocrit 26.6 % Mean Corpuscular Volume 86.0 FL Mean Corpuscular Hemoglobin 29.0 PG Mean Corpuscular Hemoglobin 33.8 % Concent Red Cell Distribution Width 14.0 % Platelet Count 694 TH/MM3 Mean Platelet Volume 6.5 FL Neutrophils (%) (Auto) 59.2 % Lymphocytes (%) (Auto) 32.1 % Monocytes (%) (Auto) 6.6 % Eosinophils (%) (Auto) 1.7 % Basophils (%) (Auto) 0.4 % Neutrophils # (Auto) 3.9 TH/MM3 Lymphocytes # (Auto) 2.1 TH/MM3 Monocytes # (Auto) 0.4 TH/MM3 Eosinophils # (Auto) 0.1 TH/MM3 Basophils # (Auto) 0.0 TH/MM3 CBC Comment DIFF FINAL Differential Comment Sodium Level 132 MEQ/L Potassium Level 4.1 MEQ/L Chloride Level 98 MEQ/L Carbon Dioxide Level 23.3 MEQ/L Anion Gap 11 MEQ/L Blood Urea Nitrogen 17 MG/DL Creatinine 1.60 MG/DL Estimat Glomerular Filtration 45 ML/MIN Rate Random Glucose 129 MG/DL Calcium Level 9.2 MG/DL Total Bilirubin 0.2 MG/DL Aspartate Amino Transf 18 U/L (AST/SGOT) Alanine Aminotransferase 19 U/L (ALT/SGPT) Alkaline Phosphatase 467 U/L Troponin I LESS THAN 0.02 NG/ML B-Type Natriuretic Peptide 305 PG/ML Total Protein 9.3 GM/DL Albumin 2.2 GM/DL Lipase 63 U/L Urine Color YELLOW Urine Turbidity CLEAR Urine pH 5.5 Urine Specific [place] 1.010 Urine Protein 300 OR GREATER mg/dL Urine Glucose (UA) NEG mg/dL Urine Ketones NEG mg/dL Urine Occult Blood TRACE Urine Nitrite NEG Urine Bilirubin NEG Urine Leukocyte Esterase NEG Urine RBC 4-9 /hpf Urine WBC 0-2 /hpf Urine Squamous Epithelial 0-5 /hpf Cells Urine Bacteria NONE /hpf Microscopic Urinalysis Comment CULT NOT INDICATED MDM Medical Decision Making Medical Screen Exam Complete: Yes Emergency Medical Condition: Yes Medical Record Reviewed: Yes Differential Diagnosis Differential diagnosis includes diabetes, leg ulcerations Narrative Course Patient's lab work is quite stable compared to is in the hospital values. Patient has told me that he wishes to go home. He will be released. He is to follow-up with Dr. Rod Diagnosis Primary Impression: Type 2 diabetes mellitus with foot ulcer Disposition: 01 DISCHARGE HOME Condition: Stable Heri Bennett MD Nov 08, 2016 20:04
[2016-11-08 20:20] VITALS: BP 169/76; PULSE 88; RESP 18; O2SAT 99
--- NOTE | 2016-11-09 16:54 | EKG ---
Date Performed: 11/08/2016 Time Performed: 18:59:40 PTAGE: 56 years EKG: Normal Sinus rhythm Poor R wave progression, cannot exclude anterior NV-age indeterminant Baseline artifact Borderline E CG PREVIOUS TRACING : 11/02/2016 06.44 Compared to previous tracing, poor R-wave progression is ne w. DOCTOR: Shobha Tapia Interpretating Date/Time 11/09/2016 16:52:18
== END 2016-11-08 20:46 | disposition home or self-care (01) ==
LOC: PHED 16:36
DX: E11.621 Type 2 diabetes mellitus with foot ulcer (principal); I10 Essential (primary) hypertension; F41.8 Other specified anxiety disorders; F20.9 Schizophrenia, unspecified; Z87.891 Personal history of nicotine dependence; Z79.4 Long term (current) use of insulin
CPT/HCPCS: 71010; 80053; 81001; 83690; 83880; 84484; 85025; 93005

== ENCOUNTER 2017-02-16 12:59 | Inpatient (IN) | payer MEDICARE, MEDICAID ==
[2017-02-15 22:45] VITALS: BP 107/60; PULSE 100; RESP 20; TEMP 99; O2SAT 100
[~2017-02-16] VITALS: Ht 180.3 cm; Wt 94.8 kg
[2017-02-16 13:12] VITALS: BP 137/62; PULSE 102; RESP 22; O2SAT 97
[2017-02-16] MEDS ORDERED: SODIUM CHLOR 0.9% 1000 ML INJ 1,000 ML IV ONE ×2 (13:30)
[2017-02-16] MEDS ORDERED: RESP: ALBUTEROL 2.5 MG/IPRATROPIUM 0.5 MG NEB (SCH) INH ONE (13:30)
--- NOTE | 2017-02-16 13:30 | PD ---
HPI Chief Complaint: Respiratory Distress Time Seen by Provider: 13:14 Travel History International Travel<30 days: No Contact w/Intl Traveler<30days: No Traveled to known affect area: No History of Present Illness HPI Patient is a 56-year-old male with history of hypertension, diabetes, who is nonsmoker, presents to emergency room with complaints of shortness of breath. He has been short of breath for the past few days, reports that he is congested and can't breathe through his nose because they are "stuffed up." Patient denies any fevers, reports that he is having a lot of chills. Patient reports that his chest feels congested, denies any chest pain at this time. Patient denies any sick contacts. Denies any recent travels/trip PFSH Past Medical History Hx Anticoagulant Therapy: Yes Arthritis: No Asthma: No Autoimmune Disease: No Blood Disorders: No Anxiety: Yes Depression: Yes Heart Rhythm Problems: No Cancer: No Cardiovascular Problems: Yes (HTN) High Cholesterol: No Chemotherapy: No Chest Pain: No Congestive Heart Failure: No COPD: No Cerebrovascular Accident: No Diabetes: Yes (NIDDM) Patient Takes Glucophage: No Diminished Hearing: No Endocrine: No Gastrointestinal Disorders: No GERD: No Glaucoma: No Genitourinary: No Headaches: No Hepatitis: No Hiatal Hernia: No Heparin Induced Thrombocytopen: No Hypertension: Yes Immune Disorder: No Implanted Vascular Access Dvce: No Kidney Stones: No Musculoskeletal: No Neurologic: No Psychiatric: Yes (schizoprenia controlled ) Reproductive: No Respiratory: No Migraines: No Myocardial Infarction: No Radiation Therapy: No Renal Failure: No Schizophrenia: Yes Seizures: No Sickle Cell Disease: No Sleep Apnea: No Thyroid Disease: No Ulcer: No Past Surgical History Abdominal Surgery: No AICD: No Appendectomy: No Arteriovenous Shunt: No Cardiac Surgery: No Cholecystectomy: No Ear Surgery: No Endocrine Surgery: No Eye Surgery: No Genitourinary Surgery: No Gynecologic Surgery: No Insulin Pump: No Joint Replacement: No Neurologic Surgery: No Oral Surgery: No Pacemaker: No Thoracic Surgery: No Other Surgery: Yes (R FOOT ) Social History Alcohol Use: No (DENIES) Tobacco Use: No (QUIT 2012) Substance Use: No Allergies-Medications (Allergen,Severity, Reaction): Coded Allergies: Haldol (Verified Allergy, Severe, BLINDNESS, 11/08/16) Vancomycin (Verified Allergy, Severe, 2/23/17) Levaquin (Verified Allergy, Intermediate, Cramping, 11/08/16) Prolixin (Verified Allergy, Unknown, "PARKINSONIAN SHACKS", 11/08/16) *MDRO Multi-Drug Resistant Organism (Verified Adverse Reaction, Unknown, VRE, 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 Reported Meds & Prescriptions Reported Meds & Active Scripts Active Hydrocodone-Acetaminophen 5-325 mg Tab 1 Tab PO Q6HR PRN Norvasc (Amlodipine Besylate) 5 Mg Tab 5 Mg PO DAILY Ativan (Lorazepam) 0.5 Mg Tab 0.5 Mg PO Q8H PRN Novolog Inj (Insulin Aspart) 100 Unit/Ml Inj 1 Units SQ ACHS SLIDING SCALE 90 Days Reported Glipizide 5 Mg Tab 5 Mg PO BIDAC Take 30 minutes before a meal Aspirin 81 (Aspirin) 81 Mg Tabdr 81 Mg PO DAILY Thioridazine (Thioridazine HCl) 100 Mg Tab 200 Mg PO DAILY Review of Systems General / Constitutional: Positive: Chills, No: Fever Eyes: No: Visual changes HENT: No: Headaches Cardiovascular: No: Chest Pain or Discomfort Respiratory: Positive: Cough, Shortness of Breath Gastrointestinal: No: Abdominal Pain Genitourinary: No: Dysuria Musculoskeletal: No: Pain Skin: No Rash Neurologic: No: Weakness Psychiatric: No: Depression Endocrine: No: Polydipsia Hematologic/Lymphatic: No: Easy Bruising Physical Exam Narrative GENERAL: moderate distress SKIN: Focused skin assessment warm/dry. HEAD: Atraumatic. Normocephalic. EYES: Pupils equal and round. No scleral icterus. No injection or drainage. ENT: No nasal bleeding or discharge. Mucous membranes pink and moist. NECK: Trachea midline. No JVD. CARDIOVASCULAR: Tachycardic. No murmur appreciated. RESPIRATORY: No accessory muscle use. Clear to auscultation. Breath sounds equal bilaterally. Decreased BS at bases GASTROINTESTINAL: Abdomen soft, non-tender, nondistended. Hepatic and splenic margins not palpable. : Heme neg stool, light brown stool MUSCULOSKELETAL: No obvious deformities. No clubbing. No cyanosis. +3 pedal edema, patient with healing wounds to b/l plantar aspect of feet b/l NEUROLOGICAL: Awake and alert. No obvious cranial nerve deficits. Motor grossly within normal limits. Normal speech. PSYCHIATRIC: Appropriate mood and affect; insight and judgment normal. Data Data Last Documented VS Vital Signs Date Time Temp Pulse Resp B/P Pulse Ox O2 Delivery O2 Flow Rate FiO2 02/16/17 13:44 97 21 02/16/17 13:21 Room Air 02/16/17 13:12 102 22 137/62 Orders Electrocardiogram (02/16/17 13:18) Complete Blood Count With Diff (02/16/17 13:18) Comprehensive Metabolic Panel (02/16/17 13:18) Prothrombin Time / Inr (Pt) (02/16/17 13:18) Act Partial Throm Time (Ptt) (02/16/17 13:18) Lactic Acid Sepsis Protocol (02/16/17 13:18) Magnesium (Mg) (02/16/17 13:18) Phosphorus (Po4) (02/16/17 13:18) Lipase (02/16/17 13:18) Ckmb (Isoenzyme) Profile (02/16/17 13:18) Troponin I (02/16/17 13:18) Urinalysis - C+S If Indicated (02/16/17 13:18) Blood Culture (02/16/17 13:18) Chest, Single Ap (02/16/17 13:18) Ecg Monitoring (02/16/17 13:18) Iv Access Insert/Monitor (02/16/17 13:18) Oximetry (02/16/17 13:18) Oxygen Administration (02/16/17 13:18) Albuterol-Ipratropium Neb (Duoneb Neb) (02/16/17 13:30) Sodium Chlor 0.9% 1000 Ml Inj (Ns 1000 M (02/16/17 13:30) Sodium Chlor 0.9% 1000 Ml Inj (Ns 1000 M (02/16/17 13:30) Type And Screen (02/16/17 14:08) Blood Product Administration .UPON TRANSFUSION (02/16/17 14:08) Sodium Chlor 0.9% 250 Ml Inj (Ns 250 Ml (02/16/17 14:15) Urine Culture (02/16/17 14:15) Ceftriaxone Inj (Rocephin Inj) (02/16/17 15:15) Azithromycin Inj (Zithromax Inj) (02/16/17 15:15) Admit Order (Ed Use Only) (02/16/17 15:40) Labs Laboratory Tests Test 02/16/17 02/16/17 02/16/17 13:15 14:15 14:35 White Blood Count 8.5 TH/MM3 Red Blood Count 2.45 MIL/MM3 Hemoglobin 7.0 GM/DL Hematocrit 20.7 % Mean Corpuscular Volume 84.7 FL Mean Corpuscular Hemoglobin 28.5 PG Mean Corpuscular Hemoglobin 33.6 % Concent Red Cell Distribution Width 15.4 % Platelet Count 317 TH/MM3 Mean Platelet Volume 9.1 FL Neutrophils (%) (Auto) 93.7 % Lymphocytes (%) (Auto) 3.8 % Monocytes (%) (Auto) 2.2 % Eosinophils (%) (Auto) 0.1 % Basophils (%) (Auto) 0.2 % Neutrophils # (Auto) 7.9 TH/MM3 Lymphocytes # (Auto) 0.3 TH/MM3 Monocytes # (Auto) 0.2 TH/MM3 Eosinophils # (Auto) 0.0 TH/MM3 Basophils # (Auto) 0.0 TH/MM3 CBC Comment DIFF FINAL Differential Comment Prothrombin Time 12.7 SEC Prothromb Time International 1.1 RATIO Ratio Activated Partial 36.4 SEC Thromboplast Time Sodium Level 127 MEQ/L Potassium Level 4.4 MEQ/L Chloride Level 93 MEQ/L Carbon Dioxide Level 23.5 MEQ/L Anion Gap 11 MEQ/L Blood Urea Nitrogen 42 MG/DL Creatinine 2.38 MG/DL Estimat Glomerular Filtration 29 ML/MIN Rate Random Glucose 112 MG/DL Lactic Acid Level 3.0 mmol/L Calcium Level 9.8 MG/DL Phosphorus Level 3.3 MG/DL Magnesium Level 1.7 MG/DL Total Bilirubin 0.5 MG/DL Aspartate Amino Transf 30 U/L (AST/SGOT) Alanine Aminotransferase 23 U/L (ALT/SGPT) Alkaline Phosphatase 688 U/L Total Creatine Kinase 32 U/L Troponin I 0.02 NG/ML Total Protein 8.5 GM/DL Albumin 1.9 GM/DL Lipase 52 U/L Urine Color YELLOW Urine Turbidity HAZY Urine pH 6.0 Urine Specific [place] 1.011 Urine Protein 100 mg/dL Urine Glucose (UA) TRACE mg/dL Urine Ketones NEG mg/dL Urine Occult Blood MOD Urine Nitrite NEG Urine Bilirubin NEG Urine Urobilinogen LESS THAN 2.0 MG/DL Urine Leukocyte Esterase MOD Urine RBC 61 /hpf Urine WBC 9 /hpf Urine Squamous Epithelial 9 /hpf Cells Urine Bacteria OCC /hpf Microscopic Urinalysis Comment CATH-CULTURE IND Blood Type O POSITIVE Antibody Screen NEGATIVE MDM Medical Decision Making Medical Screen Exam Complete: Yes Emergency Medical Condition: Yes Interpretation(s) Vital Signs Date Time Temp Pulse Resp B/P Pulse Ox O2 Delivery O2 Flow Rate FiO2 02/16/17 13:12 102 22 137/62 97 Differential Diagnosis Anemia, COPD, pneumonia, osteomyelitis, viral infection, PE Narrative Course Patient is a 56-year-old male who presents to emergency room with complaints of cough, shortness of breath the past few days. CBC & BMP Diagram 02/16/17 13:15 Patient's hemoglobin is 7.0, it appears that patients hgb does run low - last hgb on 11/08/16 was 9.0. Creatine is elevated from baseline - cr today 2.38 - baseline cr 1.60 Patients sodium is 127 at this time lactic acid was 3.0 - source most likely lung though xray of chest neg for pneumonia. UA is concerning for uti as he has hazy urine with 9wbc, with occ bacteria - source of infection could be from urine - iv rocephin ordered plan to admit to Dr. Rod Service case reviewed with dr. sampson who accepts pt to service Diagnosis Primary Impression: Symptomatic anemia Additional Impressions: Sepsis UTI (urinary tract infection) Admitting Information Admitting Physician Requests: Admit Meghan Darden DO Feb 16, 2017 13:30
[2017-02-16 13:44] VITALS: O2SAT 97
[2017-02-16 13:53] LABS: AUTOMATED NEUTROPHIL # 7.9 TH/MM3 (1.8-7.7); BASOPHIL % 0.2 % (0.0-2.0); EOSINOPHIL % 0.1 % (0.0-4.0); LYMPH % 3.8 % (9.0-44.0); LYMPHOCYTE # 0.3 TH/MM3 (1.0-4.8); MEAN CELL VOLUME 84.7 FL (80.0-100.0); MEAN CORPUSCULAR HEMOGLOBIN 28.5 PG (27.0-34.0); MEAN CORPUSCULAR HGB CONC 33.6 % (32.0-36.0); MONO % 2.2 % (0.0-8.0); NEUT % 93.7 % (16.0-70.0); PLATELET COUNT 317 TH/MM3 (150-450); RED BLOOD COUNT 2.45 MIL/MM3 (4.50-5.90); RED CELL DISTRIBUTION WIDTH 15.4 % (11.6-17.2); WHITE BLOOD COUNT 8.5 TH/MM3 (4.0-11.0)
[2017-02-16 13:55] LABS: HEMO FLAGS DIFF FINAL
[2017-02-16 13:59] LABS: ANION GAP 11 MEQ/L (5-15); APTT (PATIENT) 36.4 SEC (24.3-30.1); AST (GOT) 30 U/L (15-37); BICARBONATE 23.5 MEQ/L (21.0-32.0); BLOOD UREA NITROGEN 42 MG/DL (7-18); CHLORIDE 93 MEQ/L (98-107); GLOMERULAR FILTRATION RATE 29 ML/MIN (>89); HEMATOCRIT 20.7 % (39.0-51.0); INTERNATIONAL NORMALIZED RATIO 1.1 RATIO; MAGNESIUM 1.7 MG/DL (1.5-2.5); POTASSIUM 4.4 MEQ/L (3.5-5.1); PROTHROMBIN TIME - PATIENT 12.7 SEC (9.8-11.6); SODIUM (NA) 127 MEQ/L (136-145)
[2017-02-16 14:08] LABS: ALKALINE PHOSPHATASE 688 U/L (45-117); ALT (GPT) 23 U/L (12-78); TOTAL BILIRUBIN ADULT 0.5 MG/DL (0.2-1.0)
[2017-02-16 14:13] LABS: CREATINE KINASE 32 U/L (39-308)
[2017-02-16] MEDS ORDERED: SODIUM CHLOR 0.9% 250 ML INJ 250 ML IV ONE (14:15)
[2017-02-16 14:26] LABS: BACTERIA, URINE OCC /hpf; BLOOD, URINE MOD (NEG); GLUCOSE,URINE TRACE mg/dL (NEG); KETONE, URINE NEG (NEG); NITRITE,URINE NEG (NEG); SQUAMOUS EPITHELIAL CELL URINE 9 /hpf (0-5); URINE COLOR YELLOW (YELLW/STRAW)
[2017-02-16 14:34] LABS: COMMENT (UR) CATH-CULTURE IND; CULTURE IF INDICATED CATH CULTURE IND
--- NOTE | 2017-02-16 14:41 | RADRPT ---
EXAM DATE/TIME: 02/16/2017 13:32 [place] COMPARISON: CHEST SINGLE AP, November 08, 2016, 19:26. INDICATIONS : Cough, shortness of breath, and chest pain. MEDICAL HISTORY : None. SURGICAL HISTORY : None. ENCOUNTER: Initial ACUITY: 3 days PAIN SCORE: 2/10 LOCATION: Bilateral chest FINDINGS: 2 AP views of the chest. The lungs are clear. Cardiomediastinal silhouette within normal limits. No e vidence of pleural effusion or pneumothorax. CONCLUSION: No acute cardiopulmonary disease identified. Ganga Luna MD on February 16, 2017 at 14:38 Board Certified Radiologist. This report was verified electronically.
[2017-02-16] MEDS ORDERED: cefTRIAXone INJ 1,000 MG in SODIUM CHLORIDE 0.9% INJ 100 ML IV ONE (15:15)
[2017-02-16] MEDS ORDERED: AZITHROMYCIN INJ 500 MG in SODIUM CHLOR 0.9% 250 ML INJ 250 ML IV ONE (15:15)
[2017-02-16 15:37] LABS: LACTIC ACID GHOST NOT REPORTABLE
--- NOTE | 2017-02-16 17:08 | HHI.HP ---
[facility] Service [place] [facility] Primary Care Physician Non-Staff Admission Diagnosis Sepsis, symptomatic anemia Diagnoses: (1) Symptomatic anemia (2) Charcot foot due to diabetes mellitus (3) Ulcer of right lower extremity (4) Ulcer of left foot due to type 2 diabetes mellitus (5) Hyponatremia (6) Schizophrenia (7) Sepsis Chief Complaint: Shortness of breath Travel History International Travel<30 Days: No Contact w/Intl Traveler <30 Da: No Traveled to Known Affected Are: No Sepsis Criteria SIRS Criteria (2 or more): Temp > 100.9 or < 96.8, Heart rate over 90 Sepsis Criteria (SIRS+source): Infect source susp/known Severe Sepsis (+one): Lactate >2 History of Present Illness 56-year-old male with a history of diabetes type 2, Charcot foot disease, schizophrenia presented to the ED for evaluation of worsening symptoms of shortness of breath as well as nonproductive cough without any febrile episode although patient reports presence of chills. He states, he has been feeling congested. Denies any chest pain. Hemoglobin on admission of 7.0 however fecal occult blood test was negative. Chest x-ray without any cardio pulmonary disease Past Family Social History Past Medical History Anxiety: Yes Depression: Yes Cardiovascular Problems: Yes (HTN) Hypertension: Yes Schizophrenia: Yes Past Surgical History Other Surgery: Yes (R FOOT ) Reported Medications Hydrocodone-Acetaminophen 5-325 mg Tab 1 Tab PO Q6HR PRN Norvasc (Amlodipine Besylate) 5 Mg Tab 5 Mg PO DAILY Ativan (Lorazepam) 0.5 Mg Tab 0.5 Mg PO Q8H PRN Novolog Inj (Insulin Aspart) 100 Unit/Ml Inj 1 Units SQ ACHS SLIDING SCALE 90 Days Glipizide 5 Mg Tab 5 Mg PO BIDAC Take 30 minutes before a meal Aspirin 81 (Aspirin) 81 Mg Tabdr 81 Mg PO DAILY Thioridazine (Thioridazine HCl) 100 Mg Tab 200 Mg PO DAILY Allergies: Coded Allergies: Haldol (Verified Allergy, Severe, BLINDNESS, 11/08/16) Vancomycin (Verified Allergy, Severe, 11/08/16) Levaquin (Verified Allergy, Intermediate, Cramping, 11/08/16) Prolixin (Verified Allergy, Unknown, "PARKINSONIAN SHACKS", 11/08/16) *MDRO Multi-Drug Resistant Organism (Verified Adverse Reaction, Unknown, VRE, 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 SKIN: No rashes, ecchymoses or lesions. Charcot foot, with chronic bilateral feet ulcers HEAD: Atraumatic. Normocephalic. No temporal or scalp tenderness. EYES: Pupils equal round and reactive. Extraocular motions intact. No scleral icterus. No injection or drainage. ENT: Nose without bleeding, purulent drainage or septal hematoma. Throat without erythema, tonsillar hypertrophy or exudate. Uvula midline. Airway patent. NECK: Trachea midline. No JVD or lymphadenopathy. Supple, nontender, no meningeal signs. CARDIOVASCULAR: Regular rate and rhythm without murmurs, gallops, or rubs. RESPIRATORY: Clear to auscultation. Breath sounds equal bilaterally. No wheezes , rales, or rhonchi. GASTROINTESTINAL: Abdomen soft, non-tender, nondistended. No hepato-splenomegaly , or palpable masses. No guarding. MUSCULOSKELETAL: Extremities without clubbing, cyanosis, or edema. No joint tenderness, effusion, or edema noted. No calf tenderness. Negative Homans sign bilaterally. NEUROLOGICAL: Awake and alert. Cranial nerves II through XII intact. Motor and sensory grossly within normal limits. Five out of 5 muscle strength in all muscle groups. Normal speech. Laboratory Laboratory Tests Test 02/16/17 02/16/17 02/16/17 13:15 14:15 14:35 White Blood Count 8.5 Red Blood Count 2.45 Hemoglobin 7.0 Hematocrit 20.7 Mean Corpuscular Volume 84.7 Mean Corpuscular Hemoglobin 28.5 Mean Corpuscular Hemoglobin 33.6 Concent Red Cell Distribution Width 15.4 Platelet Count 317 Mean Platelet Volume 9.1 Neutrophils (%) (Auto) 93.7 Lymphocytes (%) (Auto) 3.8 Monocytes (%) (Auto) 2.2 Eosinophils (%) (Auto) 0.1 Basophils (%) (Auto) 0.2 Neutrophils # (Auto) 7.9 Lymphocytes # (Auto) 0.3 Monocytes # (Auto) 0.2 Eosinophils # (Auto) 0.0 Basophils # (Auto) 0.0 CBC Comment DIFF FINAL Differential Comment Prothrombin Time 12.7 Prothromb Time International 1.1 Ratio Activated Partial 36.4 Thromboplast Time Sodium Level 127 Potassium Level 4.4 Chloride Level 93 Carbon Dioxide Level 23.5 Anion Gap 11 Blood Urea Nitrogen 42 Creatinine 2.38 Estimat Glomerular Filtration 29 Rate Random Glucose 112 Lactic Acid Level 3.0 Calcium Level 9.8 Phosphorus Level 3.3 Magnesium Level 1.7 Total Bilirubin 0.5 Aspartate Amino Transf 30 (AST/SGOT) Alanine Aminotransferase 23 (ALT/SGPT) Alkaline Phosphatase 688 Total Creatine Kinase 32 Troponin I 0.02 Total Protein 8.5 Albumin 1.9 Lipase 52 Urine Color YELLOW Urine Turbidity HAZY Urine pH 6.0 Urine Specific [place] 1.011 Urine Protein 100 Urine Glucose (UA) TRACE Urine Ketones NEG Urine Occult Blood MOD Urine Nitrite NEG Urine Bilirubin NEG Urine Urobilinogen LESS THAN 2.0 Urine Leukocyte Esterase MOD Urine RBC 61 Urine WBC 9 Urine Squamous Epithelial 9 Cells Urine Bacteria OCC Microscopic Urinalysis Comment CATH-CULTURE IND Blood Type O POSITIVE Antibody Screen NEGATIVE Date/Time Procedure Status Source Growth 02/16/17 14:15 Urine Culture Received Urine Catheterized Urine Pending 02/16/17 13:20 Aerobic Blood Culture Received Blood Peripheral Pending 02/16/17 13:20 Anaerobic Blood Culture Received Blood Peripheral Pending Result Diagram: 02/16/17 1315 02/16/17 1315 Imaging Last Impressions Chest X-Ray 02/16/17 1318 Signed Impressions: Service Date/Time: Saturday, February 16, 2017 13:32 - CONCLUSION: No acute cardiopulmonary disease identified. Ganga Luna MD Assessment and Plan Problem List: (1) Symptomatic anemia ICD Code: D64.9 Status: Acute (2) Type 2 diabetes mellitus with foot ulcer ICD Code: E11.621 Status: Chronic (3) Charcot foot due to diabetes mellitus ICD Code: E11.610 Status: Acute (4) Ulcer of right lower extremity ICD Code: L97.919 Status: Chronic (5) Ulcer of left foot due to type 2 diabetes mellitus ICD Code: E11.621 Status: Acute (6) Schizophrenia ICD Code: F20.9 Status: Chronic (7) Hyponatremia ICD Code: E87.1 Status: Acute (8) Acute renal failure superimposed on stage 3 chronic kidney disease ICD Code: N17.9 Status: Acute (9) UTI (urinary tract infection) ICD Code: N39.0 Status: Acute (10) Sepsis ICD Code: A41.9 Status: Resolved Assessment and Plan 56-year-old man with Symptomatic anemia Normochromic normocytic anemia Negative FOBT Transfuse 1 unit PRBC and monitor H&H Check iron study and treat accordingly Sepsis: Present on admission UTI: s/p IV abx x1 in ED; Rocephin IV Daily starting 02/17/17 pending urine culture Acute on chronic kidney disease Start gentle IV fluid hydration and monitor BUN and creatinine Hyponatremia Start IV fluid hydration and monitor BMP Diabetes type 2 Hold glipizide secondary to worsening renal functions Start insulin sliding scale fingerstick blood glucose monitoring Charcot foot due to diabetes mellitus Chronic feet ulcer Consult wound care Hypertension Resume Norvasc Schizophrenia Resume Thiorizadine Anxiety - Lorazepam PRN. DVT prophylaxis: Bilateral SCDs Code Status Full code Discussed Condition With Patient, ED physician Physician Certification 2 Midnight Certification Type: Admission for Inpatient Services Order for Inpatient Services The services are ordered in accordance with Medicare regulations or non- Medicare payer requirements, as applicable. In the case of services not specified as inpatient-only, they are appropriately provided as inpatient services in accordance with the 2-midnight benchmark. Estimated LOS (days): 2 days is the estimated time the patient will need to remain in the hospital, assuming treatment plan goals are met and no additional complications. Post-Hospital Plan: Not yet determined Zaid Metcalf MD Feb 16, 2017 17:08
[2017-02-16] MEDS ORDERED: GLUCAGON 1 MG/ML VIAL OTHER PRN (17:15)
[2017-02-16] MEDS ORDERED: DEXTROSE 50% IN WATER 50 ML VIAL(D50) IV PRN (17:15)
[2017-02-16] MEDS ORDERED: ACETAMINOPHEN 325 MG TAB PO PRN (17:15)
[2017-02-16] MEDS ORDERED: SODIUM CHLORIDE 0.9% FLUSH 10 ML FLUSH IV FLUSH PRN (17:15)
[2017-02-16] MEDS ORDERED: ONDANSETRON HCL 4 MG/2 ML VIAL IVP PRN (17:15)
[2017-02-16] MEDS ORDERED: NALOXONE HCL 0.4 MG/ML AMP IV PRN (17:15)
[2017-02-16] MEDS ORDERED: RESP: ALBUTEROL 2.5 MG/IPRATROPIUM 0.5 MG NEB (PRN) NEB (17:15)
[2017-02-16] MEDS ORDERED: SODIUM CHLOR 0.9% 1000 ML INJ 1,000 ML IV SCH (18:15)
[2017-02-16 19:09] LABS: TRANSFERRIN IRON PROFILE 112 MG/DL (200-360)
[2017-02-16 20:43] VITALS: BP 81/44; PULSE 73; RESP 17; TEMP 98; O2SAT 96
[2017-02-16] MEDS: SODIUM CHLORIDE 0.9% FLUSH 10 ML FLUSH IV FLUSH SCH (21:00)
[2017-02-16] MEDS: INSULIN ASPART SUPPLEMENTAL SCALE SQ SCH (21:00)
[2017-02-16 22:58] VITALS: BP 110/60; PULSE 70; RESP 19; TEMP 100; O2SAT 100
[2017-02-16 23:15] VITALS: BP 115/60; PULSE 75; RESP 19; TEMP 99; O2SAT 100
[2017-02-16 23:30] VITALS: BP 117/65; PULSE 73; RESP 20; TEMP 98.8; O2SAT 100
[2017-02-17] VITALS (13 sets, daily range): BP systolic 112–160; BP diastolic 58–93; PULSE 58–71; RESP 15–22; TEMP 95.4–99; O2SAT 96–100
[2017-02-17] MEDS: INSULIN ASPART SUPPLEMENTAL SCALE SQ SCH ×4 (07:00→22:08)
[2017-02-17] MEDS: ASPIRIN EC 81 MG TABEC PO SCH (08:59)
[2017-02-17] MEDS: THIORIDAZINE HCL 100 MG PO SCH (08:59)
[2017-02-17] MEDS: amLODIPine BESYLATE 5 MG TAB PO SCH (08:59)
[2017-02-17] MEDS: SODIUM CHLORIDE 0.9% FLUSH 10 ML FLUSH IV FLUSH SCH ×2 (09:00→21:07)
[2017-02-17] MEDS ORDERED: cefTRIAXone INJ 1,000 MG in SODIUM CHLORIDE 0.9% INJ 100 ML IV SCH (09:00)
[2017-02-17] MEDS: ACETAMINOPHEN 325 MG TAB PO PRN ×2 (09:02→22:07)
[2017-02-17] MEDS ORDERED: VANCOMYCIN INJ 1,250 MG in SODIUM CHLOR 0.9% 250 ML INJ 250 ML IV SCH (09:15)
[2017-02-17] MEDS ORDERED: Vancomycin Consult Pharmacy 1 EA OTHER SCH (09:15)
[2017-02-17 11:27] LABS: AUTOMATED NEUTROPHIL # 9.9 TH/MM3 (1.8-7.7); BASOPHIL % 0.3 % (0.0-2.0); EOSINOPHIL % 0.4 % (0.0-4.0); LYMPH % 10.5 % (9.0-44.0); LYMPHOCYTE # 1.3 TH/MM3 (1.0-4.8); MEAN CELL VOLUME 85.4 FL (80.0-100.0); MEAN CORPUSCULAR HEMOGLOBIN 28.5 PG (27.0-34.0); MEAN CORPUSCULAR HGB CONC 33.3 % (32.0-36.0); MONO % 8.9 % (0.0-8.0); NEUT % 79.9 % (16.0-70.0); PLATELET COUNT 342 TH/MM3 (150-450); RED BLOOD COUNT 1.66 MIL/MM3 (4.50-5.90); RED CELL DISTRIBUTION WIDTH 15.1 % (11.6-17.2); WHITE BLOOD COUNT 12.4 TH/MM3 (4.0-11.0)
[2017-02-17 11:30] LABS: HEMO FLAGS DIFF FINAL
[2017-02-17 11:32] LABS: HEMATOCRIT 14.2 % (39.0-51.0)
--- NOTE | 2017-02-17 11:35 | HHI.PR ---
Subjective Remarks Follow-up symptomatic anemia/UTI 02/17/17-patient seen and examined, currently afebrile. Blood culture positive x 10/20 as well as urine culture Objective Vitals Vital Signs Date Time Temp Pulse Resp B/P Pulse Ox O2 Delivery O2 Flow Rate FiO2 02/17/17 09:15 95.7 63 19 155/74 99 02/17/17 06:23 98.0 71 17 149/77 96 02/17/17 01:30 98.7 70 18 115/65 99 02/17/17 00:51 99.0 66 17 113/58 100 02/17/17 00:00 98.7 66 18 112/58 99 02/16/17 23:30 98.8 73 20 117/65 100 02/16/17 23:15 99.0 75 19 115/60 100 02/16/17 22:58 100.0 70 19 110/60 100 02/16/17 20:43 98.0 73 17 81/44 96 02/16/17 13:44 97 21 02/16/17 13:21 96 Room Air 02/16/17 13:12 102 22 137/62 97 I/O 02/16/17 02/16/17 02/16/17 02/17/17 02/17/17 02/17/17 07:00 15:00 23:00 07:00 15:00 23:00 Intake Total 180 ml Output Total 250 ml Balance -70 ml Intake Oral 180 ml Output Urine Total 250 ml # Voids 1 Result Diagram: 02/16/17 1315 02/16/17 1315 Imaging Last Impressions Chest X-Ray 02/16/17 1318 Signed Impressions: Service Date/Time: Thursday, February 16, 2017 13:32 - CONCLUSION: No acute cardiopulmonary disease identified. Ganga Luna MD Objective Remarks GENERAL: NAD SKIN: Warm and dry.Charcot foot, with chronic bilateral feet ulcers HEAD: Normocephalic. EYES: No scleral icterus. No injection or drainage. NECK: Supple, trachea midline. No JVD or lymphadenopathy. CARDIOVASCULAR: Regular rate and rhythm without murmurs, gallops, or rubs. RESPIRATORY: Breath sounds equal bilaterally. No accessory muscle use. GASTROINTESTINAL: Abdomen soft, non-tender, nondistended. MUSCULOSKELETAL: No cyanosis, or edema. BACK: Nontender without obvious deformity. No CVA tenderness. A/P Problem List: (1) Bacteremia due to Gram-positive bacteria ICD Code: R78.81 Status: Acute (2) Symptomatic anemia ICD Code: D64.9 Status: Acute (3) Type 2 diabetes mellitus with foot ulcer ICD Code: E11.621 Status: Chronic (4) Charcot foot due to diabetes mellitus ICD Code: E11.610 Status: Acute (5) Ulcer of right lower extremity ICD Code: L97.919 Status: Chronic (6) Ulcer of left foot due to type 2 diabetes mellitus ICD Code: E11.621 Status: Acute (7) Schizophrenia ICD Code: F20.9 Status: Chronic (8) Hyponatremia ICD Code: E87.1 Status: Acute (9) Acute renal failure superimposed on stage 3 chronic kidney disease ICD Code: N17.9 Status: Acute (10) UTI (urinary tract infection) ICD Code: N39.0 Status: Acute (11) Sepsis ICD Code: A41.9 Status: Resolved Assessment and Plan 56-year-old man with Bacteremia due to gram-positive cocci Positive blood culture 2#4 Start Azactam and continue Rocephin IV Repeat blood culture and consult infectious disease specialist Symptomatic anemia Normochromic normocytic anemia Negative FOBT on admission s/p 1 unit PRBC 02/16/17 however repeat H/H of 4.7/14.2 therefore will Transfuse 3 units PRBC and consult GI Consider hematology consultation if panendoscopy is negative iron study with evidence of iron deficiency anemia Sepsis: Present on admission UTI: Currently on Rocephin IV Daily ; urine culture positive for gram-negative rods Acute on chronic kidney disease Resolved Hyponatremia BMP pending this morning Diabetes type 2 Hold glipizide secondary to worsening renal functions Continue insulin sliding scale fingerstick blood glucose monitoring Charcot foot due to diabetes mellitus Chronic feet ulcer Consult wound care Hypertension Continue Norvasc Schizophrenia Continue Thiorizadine Anxiety - Lorazepam PRN. DVT prophylaxis: Bilateral SCDs Zaid Metcalf MD Feb 17, 2017 11:35
[2017-02-17 11:44] LABS: ALKALINE PHOSPHATASE 618 U/L (45-117); ALT (GPT) 311 U/L (12-78); ANION GAP 10 MEQ/L (5-15); AST (GOT) 617 U/L (15-37); BICARBONATE 19.9 MEQ/L (21.0-32.0); CHLORIDE 95 MEQ/L (98-107); GLOMERULAR FILTRATION RATE 21 ML/MIN (>89); POTASSIUM 4.3 MEQ/L (3.5-5.1); SODIUM (NA) 125 MEQ/L (136-145); TOTAL BILIRUBIN ADULT 0.8 MG/DL (0.2-1.0)
[2017-02-17] MEDS ORDERED: SODIUM CHLOR 0.9% 250 ML INJ 250 ML IV ONE (11:45)
[2017-02-17] MEDS ORDERED: ACETAMINOPHEN 325 MG TAB PO PRN (11:45)
[2017-02-17] MEDS ORDERED: diphenhydrAMINE HCL 25 MG CAP PO PRN (11:45)
[2017-02-17 11:46] LABS: BLOOD UREA NITROGEN 50 MG/DL (7-18)
[2017-02-17] MEDS ORDERED: FUROSEMIDE 20 MG/2 ML VIAL IV ONE (12:00)
[2017-02-17] MEDS ORDERED: AZTREONAM INJ 1,000 MG in SODIUM CHLORIDE 0.9% INJ 100 ML IV SCH (13:00)
[2017-02-17] MEDS ORDERED: FUROSEMIDE 20 MG/2 ML VIAL IV PUSH ONE (13:30)
--- NOTE | 2017-02-17 13:54 | PD.ID.CON ---
History of Present Illness Service ID Consult Requested By Reason for Consult Evaluation and Mment of Bacteremia, foot infection. Primary Care Physician Non-Staff Diagnoses: History of Present Illness is a 56 y/o CM with PMHx of DM2 with neuropathy (denies known renal disease or eye involvement), Charcot foot disease, schizophrenia. With this background patient presented to the emergency department for evaluation of worsening shortness of breath, nonproductive cough. Patient reports no fevers but does endorse chills. Patient reports that he had a feeling of being congested. He denies any chest pain. He denies any prior history of anemia. He denies any history of GI bleed or prior GI workup. 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 Upon admission his hemoglobin was 7 fecal occult blood test was negative and during that admission his hemoglobin has dropped to 4 mg/dL and is currently undergoing 1 unit of PRBC. Chest x-ray has no cardiopulmonary disease. Sepsis workup was initiated on admission and blood cultures are positive for group A strep. His urine is positive for gram negatives. ID susceptibility pending. Infectious disease is consulted for evaluation and management of possible sepsis , group A strep bacteremia and possible foot infection. Review of Systems Constitutional: COMPLAINS OF: Chills, DENIES: Diaphoretic episodes, Fatigue, Fever, Weight gain, Weight loss, Dizziness, Change in appetite, Night Sweats Endocrine: DENIES: Heat/cold intolerance, Polydipsia, Polyuria, Polyphagia Eyes: DENIES: Blurred vision, Diplopia, Eye inflammation, Eye pain, Vision loss , Photosensitivity, Double Vision Ears, nose, mouth, throat: DENIES: Tinnitus, Hearing loss, Vertigo, Nasal discharge, Oral lesions, Throat pain, Hoarseness, Ear Pain, Running Nose, Epistaxis, Sinus Pain, Toothache, Odynophagia Respiratory: COMPLAINS OF: Shortness of breath, DENIES: Apneas, Cough, Snoring , Wheezing, Hemoptysis, Sputum production Cardiovascular: COMPLAINS OF: Dyspnea on Exertion, DENIES: Chest pain, Palpitations, Syncope, PND, Lower Extremity Edema, Orthopnea, Claudication Gastrointestinal: DENIES: Abdominal pain, Black stools, Bloody stools, Constipation, Diarrhea, Nausea, Vomiting, Difficulty Swallowing, Anorexia Genitourinary: DENIES: Sexual dysfunction, Urinary frequency, Urinary incontinence, Urgency, Hematuria, Dysuria, Nocturia, Penile Discharge, Testicular Pain, Testicular Swelling Musculoskeletal: DENIES: Joint pain, Muscle aches, Stiffness, Joint Swelling, Back pain, Neck pain Integumentary: DENIES: Abnormal pigmentation, Nail changes, Pruritus, Rash Hematologic/lymphatic: DENIES: Bruising, Lymphadenopathy Immunologic/allergic: DENIES: Eczema, Urticaria Neurologic: DENIES: Abnormal gait, Headache, Localized weakness, Paresthesias, Seizures, Speech Problems, Tremor, Poor Balance Psychiatric: DENIES: Anxiety, Confusion, Mood changes, Depression, Hallucinations, Agitation, Suicidal Ideation, Homicidal Ideation, Delusions Except as stated in HPI: all other systems reviewed are Neg Past Family Social History Allergies: Coded Allergies: Haldol (Verified Allergy, Severe, BLINDNESS, 11/08/16) Vancomycin (Verified Allergy, Severe, 11/08/16) Levaquin (Verified Allergy, Intermediate, Cramping, 11/08/16) Prolixin (Verified Allergy, Unknown, "PARKINSONIAN SHACKS", 11/08/16) *MDRO Multi-Drug Resistant Organism (Verified Adverse Reaction, Unknown, VRE, 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 Past Medical History ID issues in past: Right foot infection C.glabrata and lactobacillus bacteremia treated with Unasyn and Micafungin in past. Anxiety Depression Reported history of schizophrenia, reportedly multiple admissions to psych facility. Hypertension Diabetes mellitus with neuropathy. Anemia Hyponatremia Chronic alcoholism Charcot joint Noncompliance Obesity Past Surgical History Right foot surgery Reported Medications Reported Meds & Active Scripts Active Hydrocodone-Acetaminophen 5-325 mg Tab 1 Tab PO Q6HR PRN Norvasc (Amlodipine Besylate) 5 Mg Tab 5 Mg PO DAILY Ativan (Lorazepam) 0.5 Mg Tab 0.5 Mg PO Q8H PRN Novolog Inj (Insulin Aspart) 100 Unit/Ml Inj 1 Units SQ ACHS SLIDING SCALE 90 Days Reported Glipizide 5 Mg Tab 5 Mg PO BIDAC Take 30 minutes before a meal Aspirin 81 (Aspirin) 81 Mg Tabdr 81 Mg PO DAILY Thioridazine (Thioridazine HCl) 100 Mg Tab 200 Mg PO DAILY Active Ordered Medications Current Medications Medications (Trade) Dose Ordered Sig/Portia Route Start Time Stop Time Status Last Admin (NS Flush) 2 ml UNSCH PRN IV FLUSH 02/16/17 17:15 (NS Flush) 2 ml BID IV FLUSH 02/16/17 21:00 (Tylenol) 650 mg Q4H PRN PO 02/16/17 17:15 02/16/17 22:46 (Zofran Inj) 4 mg Q6H PRN IVP 02/16/17 17:15 (Tylenol) 650 mg Q6H PRN PO 02/16/17 17:15 02/17/17 09:02 (Narcan Inj) 0.4 mg UNSCH PRN IV 02/16/17 17:15 (Vasotec Inj) 1.25 mg Q6H PRN IV PUSH 02/16/17 17:15 (D50w (Vial) Inj) 50 ml UNSCH PRN IV 02/16/17 17:15 (Glucagon Inj) 1 mg UNSCH PRN OTHER 02/16/17 17:15 (Norvasc) 5 mg DAILY PO 02/17/17 09:00 02/17/17 08:59 (Ecotrin Ec) 81 mg DAILY PO 02/17/17 09:00 02/17/17 08:59 (Ativan) 0.5 mg Q8H PRN PO 02/16/17 17:45 Thioridazine HCl 200 mg 200 mg DAILY PO 02/17/17 09:00 02/17/17 08:59 (NS 250 ml Inj) 250 ml @ 15 mls/hr ONCE ONCE IV 02/17/17 11:45 02/18/17 04:24 02/17/17 12:41 (Tylenol) 650 mg Q4H PRN PO 02/17/17 11:45 02/17/17 15:46 02/17/17 12:40 Diphenhydramine HCl 25 mg 25 mg Q4H PRN PO 02/17/17 11:45 02/17/17 15:46 02/17/17 12:40 Ceftriaxone Sodium 2000 mg/ Sodium Chloride 100 ml @ 200 mls/hr Q24H IV 02/18/17 09:00 (Cleocin Inj/NS Inj) 106 ml @ 212 mls/hr Q8H IV 02/17/17 14:00 UNV Family History Could not be obtained. Social History Lives with his parents. He is an ex-smoker stopped smoking at the age of 17 years started in his teens. Alcohol 12 pack beer per day. No history of IV drug abuse but does admit to marijuana in the past. Physical Exam Vital Signs Vital Signs Date Time Temp Pulse Resp B/P Pulse Ox O2 Delivery O2 Flow Rate FiO2 02/17/17 13:10 95.4 66 19 160/70 100 02/17/17 12:57 64 18 137/74 100 02/17/17 12:53 64 18 137/74 100 02/17/17 09:15 95.7 63 19 155/74 99 02/17/17 06:23 98.0 71 17 149/77 96 02/17/17 01:30 98.7 70 18 115/65 99 02/17/17 00:51 99.0 66 17 113/58 100 02/17/17 00:00 98.7 66 18 112/58 99 02/16/17 23:30 98.8 73 20 117/65 100 02/16/17 23:15 99.0 75 19 115/60 100 02/16/17 22:58 100.0 70 19 110/60 100 02/16/17 20:43 98.0 73 17 81/44 96 Physical Exam GENERAL: Thin built, well-developed patient, in no apparent distress. SKIN: No rashes, ecchymoses or lesions. Cool and dry. HEAD: Atraumatic. Normocephalic. No temporal or scalp tenderness. EYES: Pupils equal round and reactive. Extraocular motions intact. No scleral icterus. No injection or drainage. ENT: Nose without bleeding, purulent drainage or septal hematoma. Throat without erythema, tonsillar hypertrophy or exudate. Uvula midline. Airway patent. NECK: Trachea midline. No JVD or lymphadenopathy. Supple, nontender, no meningeal signs. CARDIOVASCULAR: Regular rate and rhythm without murmurs, gallops, or rubs. RESPIRATORY: Clear to auscultation. Breath sounds equal bilaterally. No wheezes , rales, or rhonchi. GASTROINTESTINAL: Abdomen soft, non-tender, nondistended. No hepato-splenomegaly , or palpable masses. No guarding. MUSCULOSKELETAL: Bilateral LE charcot deformities with plantar ulcers. Left plantar ulcer down to subq level. Right plantar ulcer ? down to muscle, could not probe to bone. NEUROLOGICAL: Awake and alert. Grossly non focal Psych: cooperative IV line sites with no e.o infection. Laboratory Laboratory Tests Test 02/16/17 02/16/17 02/16/17 02/16/17 14:15 14:35 19:30 20:52 Urine Color YELLOW Urine Turbidity HAZY Urine pH 6.0 Urine Specific [place] 1.011 Urine Protein 100 Urine Glucose (UA) TRACE Urine Ketones NEG Urine Occult Blood MOD Urine Nitrite NEG Urine Bilirubin NEG Urine Urobilinogen LESS THAN 2.0 Urine Leukocyte Esterase MOD Urine RBC 61 Urine WBC 9 Urine Squamous Epithelial 9 Cells Urine Bacteria OCC Microscopic Urinalysis Comment CATH-CULTURE IND Blood Type O POSITIVE Antibody Screen NEGATIVE Lactic Acid Level 1.7 Crossmatch Leukocyte-Reduced Red Blood Cells Blood Bank Comment Test 02/17/17 02/17/17 11:06 11:40 White Blood Count 12.4 Red Blood Count 1.66 Hemoglobin 4.7 Hematocrit 14.2 Mean Corpuscular Volume 85.4 Mean Corpuscular Hemoglobin 28.5 Mean Corpuscular Hemoglobin 33.3 Concent Red Cell Distribution Width 15.1 Platelet Count 342 Mean Platelet Volume 9.3 Neutrophils (%) (Auto) 79.9 Lymphocytes (%) (Auto) 10.5 Monocytes (%) (Auto) 8.9 Eosinophils (%) (Auto) 0.4 Basophils (%) (Auto) 0.3 Neutrophils # (Auto) 9.9 Lymphocytes # (Auto) 1.3 Monocytes # (Auto) 1.1 Eosinophils # (Auto) 0.0 Basophils # (Auto) 0.0 CBC Comment DIFF FINAL Differential Comment Sodium Level 125 Potassium Level 4.3 Chloride Level 95 Carbon Dioxide Level 19.9 Anion Gap 10 Blood Urea Nitrogen 50 Creatinine 3.12 Estimat Glomerular Filtration 21 Rate Random Glucose 151 Calcium Level 8.7 Total Bilirubin 0.8 Aspartate Amino Transf 617 (AST/SGOT) Alanine Aminotransferase 311 (ALT/SGPT) Alkaline Phosphatase 618 Total Protein 7.7 Albumin 1.6 Blood Type O POSITIVE Crossmatch Leukocyte-Reduced Red Blood Cells Blood Bank Comment Date/Time Procedure Status Source Growth 02/17/17 11:16 Aerobic Blood Culture Received Blood Peripheral Pending 02/17/17 11:16 Anaerobic Blood Culture Received Blood Peripheral Pending 02/16/17 14:15 Urine Culture - Preliminary Resulted Urine Catheterized Urine Gram Negative Vinod 02/16/17 13:20 Aerobic Blood Culture - Preliminary Resulted Blood Peripheral NO GROWTH IN 1 DAY 02/16/17 13:20 Anaerobic Blood Culture - Preliminary Resulted Gram Positive Cocci Result Diagram: 02/17/17 1106 02/17/17 1106 Imaging Last Impressions Chest X-Ray 02/16/17 1318 Signed Impressions: Service Date/Time: Thursday, February 16, 2017 13:32 - CONCLUSION: No acute cardiopulmonary disease identified. Ganga Luna MD Assessment and Plan Assessment and Plan Sepsis (fever, tachycardia, Strep bacteremia) present on admission Grp A Strep bacteremia: GI or foot as source Gram negative in urine: unreliable for symptomatology. Diabetic foot ulcer infected Charcot foot/DM Neuropathy. Acute on chronic renal failure (DM neuropathy as baseline). Chronic Hyponatremia likely chronic alcoholism related Schizophrenia, past psych admissions. Abnormal LFTs: sepsis or medication induced. Recs: Continue ceftriaxone increase dose. DC Vanco IV DC Azactam IV (cause of transaminitis) Start Clinda IV (for toxin neutralization of Grp A Strep) d/w integrated circuit layout designer about contact isolation per hospital policy. Consult podiatry to assess if osteomyelitis workup needed (Bone scan and WBC scan needed for further workup) Await GI workup for anemia (assess need for EGD and colonoscopy in view of Strep bacteremia for addressing source) Kathryn Quintana MD Feb 17, 2017 13:54 Kathryn Quintana MD Feb 17, 2017 13:54
--- NOTE | 2017-02-17 14:21 | PD.CONS ---
HPI History of Present Illness This is a 56 year old male presented to the ER due to shortness of breath and non productive cough. Hemoglobin at admission was 7. Hemoccult test negative. Patient with past medication history of type 2 diabetes, Charcot foot disease, and schizophrenia. Reports he has had a colonoscopy in past, although unsure of exactly when, states it was normal. Never had EGD. Reports increased fatigue. States he is having normal bowel movements and has not noted any blood in stool. States he had an episode of vomiting yesterday, no blood. Denies abdominal pain. (Shayy Teixeira) PFSH Past Medical History Anxiety Depression Hypertension Schizophrenia Type 2 diabetes Charcot foot disease Past Surgical History R foot surgery (Shayy Teixeira) Coded Allergies: Haldol (Verified Allergy, Severe, BLINDNESS, 11/08/16) Vancomycin (Verified Allergy, Severe, 11/08/16) Levaquin (Verified Allergy, Intermediate, Cramping, 11/08/16) Prolixin (Verified Allergy, Unknown, "PARKINSONIAN SHACKS", 11/08/16) *MDRO Multi-Drug Resistant Organism (Verified Adverse Reaction, Unknown, VRE, 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 Medications Current Medications Medications (Trade) Dose Ordered Sig/Portia Route PRN Reason Start Time Stop Time Status Last Admin Dose Admin Sodium Chloride (NS Flush) 2 ml UNSCH PRN IV FLUSH FLUSH AFTER USING IV ACCESS 02/16/17 17:15 Sodium Chloride (NS Flush) 2 ml BID IV FLUSH 02/16/17 21:00 Acetaminophen (Tylenol) 650 mg Q4H PRN PO TEMP > 100.4 02/16/17 17:15 02/16/17 22:46 Ondansetron HCl (Zofran Inj) 4 mg Q6H PRN IVP NAUSEA OR VOMITING 02/16/17 17:15 Acetaminophen (Tylenol) 650 mg Q6H PRN PO PAIN SCALE 1 TO 2 02/16/17 17:15 02/17/17 09:02 Naloxone HCl (Narcan Inj) 0.4 mg UNSCH PRN IV SEE LABEL COMMENTS 02/16/17 17:15 Enalaprilat (Vasotec Inj) 1.25 mg Q6H PRN IV PUSH SBP>160, DBP>90 02/16/17 17:15 Dextrose (D50w (Vial) Inj) 50 ml UNSCH PRN IV HYPOGLYCEMIA-SEE COMMENTS 02/16/17 17:15 Glucagon (Glucagon Inj) 1 mg UNSCH PRN OTHER HYPOGLYCEMIA-SEE COMMENTS 02/16/17 17:15 Amlodipine Besylate (Norvasc) 5 mg DAILY PO 02/17/17 09:00 02/17/17 08:59 Aspirin (Ecotrin Ec) 81 mg DAILY PO 02/17/17 09:00 02/17/17 08:59 Lorazepam (Ativan) 0.5 mg Q8H PRN PO SEVERE ANXIETY OR AGITATION 02/16/17 17:45 Thioridazine HCl 200 mg 200 mg DAILY PO Schizophrenia 02/17/17 09:00 02/17/17 08:59 Ceftriaxone Sodium 1000 mg/ Sodium Chloride 100 ml @ 200 mls/hr Q24H IV 02/17/17 09:00 02/17/17 08:59 Aztreonam 1000 mg/ Sodium Chloride 100 ml @ 200 mls/hr Q12H IV 02/17/17 13:00 Sodium Chloride (NS 250 ml Inj) 250 ml @ 15 mls/hr ONCE ONCE IV 02/17/17 11:45 02/18/17 04:24 02/17/17 12:41 Acetaminophen (Tylenol) 650 mg Q4H PRN PO SEE LABEL COMMENTS 02/17/17 11:45 02/17/17 15:46 02/17/17 12:40 Diphenhydramine HCl (Benadryl) 25 mg Q4H PRN PO SEE LABEL COMMENTS 02/17/17 11:45 02/17/17 15:46 02/17/17 12:40 Social History Tobacco: No current tobacco use. Quit in 2012 ETOH: Denies Illicit Drugs: Denies (Shayy Teixeira) Review of Systems Constitutional: COMPLAINS OF: Fatigue, DENIES: Diaphoretic episodes, Fever, Weight gain, Weight loss, Chills, Dizziness, Change in appetite, Night Sweats Endocrine: DENIES: Polydipsia, Polyuria Eyes: DENIES: Blurred vision, Photosensitivity, Double Vision Ears, nose, mouth, throat: DENIES: Hearing loss, Vertigo, Oral lesions, Throat pain, Hoarseness Respiratory: DENIES: Cough, Wheezing, Hemoptysis, Sputum production, Shortness of breath Cardiovascular: DENIES: Chest pain, Palpitations, Syncope, Lower Extremity Edema, Orthopnea, Claudication Gastrointestinal: COMPLAINS OF: Vomiting, DENIES: Abdominal pain, Black stools , Bloody stools, Constipation, Diarrhea, Nausea, Difficulty Swallowing, Anorexia , Odynophagia, Swelling of Abdomen, Heartburn, Hematemesis Genitourinary: DENIES: Urinary frequency, Urinary incontinence, Urgency, Hematuria, Dysuria, Nocturia Musculoskeletal: DENIES: Joint pain, Muscle aches, Stiffness, Joint Swelling, Back pain, Neck pain Integumentary: DENIES: Abnormal pigmentation, Nail changes, Pruritus, Rash, Jaundice Hematologic/lymphatic: DENIES: Bruising, Lymphadenopathy Immunologic/allergic: DENIES: Eczema, Urticaria Neurologic: DENIES: Abnormal gait, Headache, Localized weakness, Paresthesias Psychiatric: DENIES: Anxiety, Confusion, Mood changes, Depression, Agitation, Suicidal Ideation (Shayy Teixeira) GI Exam Vitals I&O Vital Signs Date Time Temp Pulse Resp B/P Pulse Ox O2 Delivery O2 Flow Rate FiO2 02/17/17 13:10 95.4 66 19 160/70 100 02/17/17 12:57 64 18 137/74 100 02/17/17 12:53 64 18 137/74 100 02/17/17 09:15 95.7 63 19 155/74 99 02/17/17 06:23 98.0 71 17 149/77 96 02/17/17 01:30 98.7 70 18 115/65 99 02/17/17 00:51 99.0 66 17 113/58 100 02/17/17 00:00 98.7 66 18 112/58 99 02/16/17 23:30 98.8 73 20 117/65 100 02/16/17 23:15 99.0 75 19 115/60 100 02/16/17 22:58 100.0 70 19 110/60 100 02/16/17 20:43 98.0 73 17 81/44 96 I/O 02/16/17 02/16/17 02/16/17 02/17/17 02/17/17 02/17/17 07:00 15:00 23:00 07:00 15:00 23:00 Intake Total 180 ml Output Total 250 ml Balance -70 ml Intake Oral 180 ml Output Urine Total 250 ml # Voids 1 Imaging Last Impressions Chest X-Ray 02/16/17 1318 Signed Impressions: Service Date/Time: Thursday, February 16, 2017 13:32 - CONCLUSION: No acute cardiopulmonary disease identified. Ganga Luna MD Laboratory Test 02/16/17 02/16/17 02/16/17 02/16/17 14:15 14:35 19:30 20:52 Urine Color YELLOW Urine Turbidity HAZY Urine pH 6.0 Urine Specific [place] 1.011 Urine Protein 100 mg/dL Urine Glucose (UA) TRACE mg/dL Urine Ketones NEG mg/dL Urine Occult Blood MOD Urine Nitrite NEG Urine Bilirubin NEG Urine Urobilinogen LESS THAN 2.0 MG/DL Urine Leukocyte Esterase MOD Urine RBC 61 /hpf Urine WBC 9 /hpf Urine Squamous Epithelial 9 /hpf Cells Urine Bacteria OCC /hpf Microscopic Urinalysis Comment CATH-CULTURE IND Blood Type O POSITIVE Antibody Screen NEGATIVE Lactic Acid Level 1.7 mmol/L Crossmatch Leukocyte-Reduced Red Blood Cells Blood Bank Comment Test 02/17/17 02/17/17 11:06 11:40 White Blood Count 12.4 TH/MM3 Red Blood Count 1.66 MIL/MM3 Hemoglobin 4.7 GM/DL Hematocrit 14.2 % Mean Corpuscular Volume 85.4 FL Mean Corpuscular Hemoglobin 28.5 PG Mean Corpuscular Hemoglobin 33.3 % Concent Red Cell Distribution Width 15.1 % Platelet Count 342 TH/MM3 Mean Platelet Volume 9.3 FL Neutrophils (%) (Auto) 79.9 % Lymphocytes (%) (Auto) 10.5 % Monocytes (%) (Auto) 8.9 % Eosinophils (%) (Auto) 0.4 % Basophils (%) (Auto) 0.3 % Neutrophils # (Auto) 9.9 TH/MM3 Lymphocytes # (Auto) 1.3 TH/MM3 Monocytes # (Auto) 1.1 TH/MM3 Eosinophils # (Auto) 0.0 TH/MM3 Basophils # (Auto) 0.0 TH/MM3 CBC Comment DIFF FINAL Differential Comment Sodium Level 125 MEQ/L Potassium Level 4.3 MEQ/L Chloride Level 95 MEQ/L Carbon Dioxide Level 19.9 MEQ/L Anion Gap 10 MEQ/L Blood Urea Nitrogen 50 MG/DL Creatinine 3.12 MG/DL Estimat Glomerular Filtration 21 ML/MIN Rate Random Glucose 151 MG/DL Calcium Level 8.7 MG/DL Total Bilirubin 0.8 MG/DL Aspartate Amino Transf 617 U/L (AST/SGOT) Alanine Aminotransferase 311 U/L (ALT/SGPT) Alkaline Phosphatase 618 U/L Total Protein 7.7 GM/DL Albumin 1.6 GM/DL Blood Type O POSITIVE Crossmatch Leukocyte-Reduced Red Blood Cells Blood Bank Comment Date/Time Procedure Status Source Growth 02/17/17 11:16 Aerobic Blood Culture Received Blood Peripheral Pending 02/17/17 11:16 Anaerobic Blood Culture Received Blood Peripheral Pending 02/16/17 14:15 Urine Culture - Preliminary Resulted Urine Catheterized Urine Gram Negative Vinod 02/16/17 13:20 Aerobic Blood Culture - Preliminary Resulted Blood Peripheral NO GROWTH IN 1 DAY 02/16/17 13:20 Anaerobic Blood Culture - Preliminary Resulted Gram Positive Cocci Physical Examination HEENT: PERRLA; normocephalic; atraumatic; no jaundice. NECK: Neck is supple, no JVD, no lymphadenopathy. CHEST: CTA CARDIAC: RRR ABDOMEN: Soft, nondistended, nontender; no hepatosplenomegaly; bowel sounds x 4 quadrants EXTREMITIES: No clubbing, cyanosis, or edema. SKIN: No rashes or jaundice. Charcot foot, bilateral foot ulcers. AQUATIC SCIENTIST: No focal deficits; alert and oriented times three. (Shayy Teixeira) Assessment and Plan Plan ASSESSMENT Anemia, etiology unclear. H/H 7/20.7 (02/16), 4.7/14.2 (02/17). Iron significantly low at 15, TIBC 157. Patient currently getting blood transfusion. No active bleeding noted. No hematochezia, melena, or hematemesis. Negative FOBT. Patient reports past colonoscopy that was normal. Never had EGD. Elevated LFTs, etiology unclear. AST 617, ALT 311, Alk Phos 618. No abdominal pain. Denies alcohol use. Medication? Bacteremia, blood cultures positive (gram positive cocci). ID consulted. UTI, IV Rocephin PLAN -Colonoscopy/EGD Saturday -Obtain consents -NPO after MN on Saturday night -Clear liquids Saturday -Bowel prep on [place] -Monitor HH, transfuse as necessary -Monitor liver enzymes -Hepatitis profile -Supportive care -Further recommendations to follow based on results of above Patient seen and examined by Dr. Rajput and myself and this note is written on his behalf. PLAN (Shayy Teixeira) Physician Comments Seen and examined, plan as above, will follow up with you for further recommendations . (Wali Rajput MD) Shayy Teixeira Feb 17, 2017 14:21 Wali Rajput MD Feb 17, 2017 22:50
--- NOTE | 2017-02-17 14:43 | EKG ---
Date Performed: 02/16/2017 Time Performed: 15:10:58 PTAGE: 56 years EKG: SINUS TACHYCARDIA WITH OCCASIONAL VENTRICULAR PREMATURE COMPLEXES MODERATE INTRAVENTRICULAR CONDUCTION DELAY Compared to prior tracing no significant change ABNORMAL RHYTHM ECG PREVIOUS TRACING : 11/08/2016 18.59 DOCTOR: Jack Sandra Interpretating Date/Time 02/17/2017 14:41:49
[2017-02-17] MEDS: CLINDAMYCIN INJ 900 MG in SODIUM CHLORIDE 0.9% INJ 100 ML IV SCH ×2 (16:36→22:09)
--- NOTE | 2017-02-17 19:50 | PD.CONS ---
History of Present Illness Service Podiatry Consult Requested By Reason for Consult Bilateral charcot with infection Primary Care Physician Non-Staff Diagnoses: History of Present Illness 56 y/o male presented to the emergency department for evaluation of worsening shortness of breath, nonproductive cough. He has bilateral ulcerations with drainage to plantar feet. Consulted to evaluate infection. Past Family Social History Allergies: Coded Allergies: Haldol (Verified Allergy, Severe, BLINDNESS, 11/08/16) Vancomycin (Verified Allergy, Severe, 11/08/16) Levaquin (Verified Allergy, Intermediate, Cramping, 11/08/16) Prolixin (Verified Allergy, Unknown, "PARKINSONIAN SHACKS", 11/08/16) *MDRO Multi-Drug Resistant Organism (Verified Adverse Reaction, Unknown, VRE, 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 Past Medical History Anxiety/depression Schizophrenia HTN DM with neuropathy Past Surgical History R foot surgery Reported Medications Hydrocodone-Acetaminophen 5-325 mg Tab 1 Tab PO Q6HR PRN Norvasc (Amlodipine Besylate) 5 Mg Tab 5 Mg PO DAILY Ativan (Lorazepam) 0.5 Mg Tab 0.5 Mg PO Q8H PRN Novolog Inj (Insulin Aspart) 100 Unit/Ml Inj 1 Units SQ ACHS SLIDING SCALE 90 Days Glipizide 5 Mg Tab 5 Mg PO BIDAC Take 30 minutes before a meal Aspirin 81 (Aspirin) 81 Mg Tabdr 81 Mg PO DAILY Thioridazine (Thioridazine HCl) 100 Mg Tab 200 Mg PO DAILY Active Ordered Medications Current Medications Medications (Trade) Dose Ordered Sig/Portia Route Start Time Stop Time Status Last Admin (NS Flush) 2 ml UNSCH PRN IV FLUSH 02/16/17 17:15 (NS Flush) 2 ml BID IV FLUSH 02/16/17 21:00 (Tylenol) 650 mg Q4H PRN PO 02/16/17 17:15 02/16/17 22:46 (Zofran Inj) 4 mg Q6H PRN IVP 02/16/17 17:15 (Tylenol) 650 mg Q6H PRN PO 02/16/17 17:15 02/17/17 09:02 (Narcan Inj) 0.4 mg UNSCH PRN IV 02/16/17 17:15 (Vasotec Inj) 1.25 mg Q6H PRN IV PUSH 02/16/17 17:15 (D50w (Vial) Inj) 50 ml UNSCH PRN IV 02/16/17 17:15 (Glucagon Inj) 1 mg UNSCH PRN OTHER 02/16/17 17:15 (Norvasc) 5 mg DAILY PO 02/17/17 09:00 02/17/17 08:59 (Ecotrin Ec) 81 mg DAILY PO 02/17/17 09:00 02/17/17 08:59 (Ativan) 0.5 mg Q8H PRN PO 02/16/17 17:45 Thioridazine HCl 200 mg 200 mg DAILY PO 02/17/17 09:00 02/17/17 08:59 Sodium Chloride 250 ml @ 15 mls/hr ONCE ONCE IV 02/17/17 11:45 02/18/17 04:24 02/17/17 12:41 Ceftriaxone Sodium 2000 mg/ Sodium Chloride 100 ml @ 200 mls/hr Q24H IV 02/18/17 09:00 (Cleocin Inj/NS Inj) 106 ml @ 212 mls/hr Q8H IV 02/17/17 15:00 02/17/17 16:36 (Colyte Liq) 4,000 ml ONCE ONCE PO 02/18/17 16:00 02/18/17 16:01 Social History Denies alcohol and substance abuse. Quit smoking in 2012 Physical Exam Vital Signs Vital Signs Date Time Temp Pulse Resp B/P Pulse Ox O2 Delivery O2 Flow Rate FiO2 02/17/17 13:10 95.4 66 19 160/70 100 02/17/17 12:57 64 18 137/74 100 02/17/17 12:53 64 18 137/74 100 02/17/17 10:02 17 02/17/17 09:15 95.7 63 19 155/74 99 02/17/17 06:23 98.0 71 17 149/77 96 02/17/17 01:30 98.7 70 18 115/65 99 02/17/17 00:51 99.0 66 17 113/58 100 02/17/17 00:00 98.7 66 18 112/58 99 02/16/17 23:30 98.8 73 20 117/65 100 02/16/17 23:15 99.0 75 19 115/60 100 02/16/17 22:58 100.0 70 19 110/60 100 02/16/17 20:43 98.0 73 17 81/44 96 Physical Exam Palpable pedal pulses. Rocker bottom deformity bilaterally. Large plantar ulcerations to feet with purulence expressed readily from L foot, none from R. Sensation absent to light touch Laboratory Laboratory Tests Test 02/16/17 02/17/17 02/17/17 20:52 11:06 11:40 Crossmatch Leukocyte-Reduced Leukocyte-Reduced Red Blood Red Blood Cells Cells Blood Bank Comment White Blood Count 12.4 Red Blood Count 1.66 Hemoglobin 4.7 Hematocrit 14.2 Mean Corpuscular Volume 85.4 Mean Corpuscular Hemoglobin 28.5 Mean Corpuscular Hemoglobin 33.3 Concent Red Cell Distribution Width 15.1 Platelet Count 342 Mean Platelet Volume 9.3 Neutrophils (%) (Auto) 79.9 Lymphocytes (%) (Auto) 10.5 Monocytes (%) (Auto) 8.9 Eosinophils (%) (Auto) 0.4 Basophils (%) (Auto) 0.3 Neutrophils # (Auto) 9.9 Lymphocytes # (Auto) 1.3 Monocytes # (Auto) 1.1 Eosinophils # (Auto) 0.0 Basophils # (Auto) 0.0 CBC Comment DIFF FINAL Differential Comment Sodium Level 125 Potassium Level 4.3 Chloride Level 95 Carbon Dioxide Level 19.9 Anion Gap 10 Blood Urea Nitrogen 50 Creatinine 3.12 Estimat Glomerular Filtration 21 Rate Random Glucose 151 Calcium Level 8.7 Total Bilirubin 0.8 Aspartate Amino Transf 617 (AST/SGOT) Alanine Aminotransferase 311 (ALT/SGPT) Alkaline Phosphatase 618 Total Protein 7.7 Albumin 1.6 Blood Type O POSITIVE Date/Time Procedure Status Source Growth 02/17/17 11:16 Aerobic Blood Culture Received Blood Peripheral Pending 02/17/17 11:16 Anaerobic Blood Culture Received Blood Peripheral Pending 02/16/17 14:15 Urine Culture - Preliminary Resulted Urine Catheterized Urine Gram Negative Vinod 02/16/17 13:20 Aerobic Blood Culture - Preliminary Resulted Blood Peripheral NO GROWTH IN 1 DAY 02/16/17 13:20 Anaerobic Blood Culture - Preliminary Resulted Gram Positive Cocci Result Diagram: 02/17/17 1106 02/17/17 1106 Imaging Last Impressions Chest X-Ray 02/16/17 1318 Signed Impressions: Service Date/Time: Thursday, February 16, 2017 13:32 - CONCLUSION: No acute cardiopulmonary disease identified. Ganga Luna MD Assessment and Plan Assessment and Plan Charcot R foot, likely with soft tissue infection Charcot L foot, likely with osteomyelitis Ordered XR both feet to evaluate. Ordered WBC Ceretec scan to differentiate Charcot vs osteomyelitis Discussed possibility of amputation L foot with patient and he states he will first before he left anyone cut any body part off of him. I discussed with him that infection very well could kill him. He understood and was adamant. May be amenable to IV antibiotics and clean up of the area, but will await scan results for Dr Salvador to discuss further with patient. Continue IV antibiotics in the meantime Shelia Quesada DPM Feb 17, 2017 19:50
--- NOTE | 2017-02-17 21:05 | RADRPT ---
EXAM DATE/TIME: 02/17/2017 20:48 [facility] COMPARISON: FOOT LEFT COMPLETE ([id number]), August 21, 2016, 20:26. INDICATIONS : Pain and swelling with drainage left foot MEDICAL HISTORY : Hypertension. Diabetes mellitus type II. SURGICAL HISTORY : None. ENCOUNTER: Initial ACUITY: 4 - 6 days PAIN SCORE: 8/10 LOCATION: Left foot FINDINGS: Three view examination of the left foot demonstrates extensive soft tissue swelling/emphysema. There is disruption of multiple joints in the midfoot and hindfoot. Fragmentation noted as well. No fractur e. Distal foot and toes appear intact. Arterial vascular calcifications. CONCLUSION: Charcot joint and extensive soft tissue swelling/emphysema. No fracture. Zaid Darden MD on February 17, 2017 at 21:01 Board Certified Radiologist. This report was verified electronically.
--- NOTE | 2017-02-17 21:11 | RADRPT ---
EXAM DATE/TIME: 02/17/2017 20:50 [facility] COMPARISON: FOOT LEFT COMPLETE ([id number]), February 17, 2017, 20:48. INDICATIONS : Pain and swelling with drainage right foot MEDICAL HISTORY : Hypertension. Diabetes mellitus type II. SURGICAL HISTORY : None. ENCOUNTER: Initial ACUITY: 4 - 6 days PAIN SCORE: 8/10 LOCATION: Right Foot FINDINGS: Three view examination of the left foot demonstrates extensive soft tissue swelling. There is disrupt ion of multiple joints in the midfoot and hindfoot. Fragmentation noted as well. No fracture. Distal foot and toes appear intact. Arterial vascular calcifications. CONCLUSION: Charcot joint and extensive soft tissue swelling. No fracture. Zaid Darden MD on February 17, 2017 at 21:06 Board Certified Radiologist. This report was verified electronically.
[2017-02-18] VITALS (10 sets, daily range): BP systolic 120–185; BP diastolic 67–87; PULSE 56–64; RESP 16–21; TEMP 96–98.9; O2SAT 95–100
[2017-02-18] MEDS: ACETAMINOPHEN 325 MG TAB PO PRN ×2 (05:31→21:28)
[2017-02-18] MEDS: CLINDAMYCIN INJ 900 MG in SODIUM CHLORIDE 0.9% INJ 100 ML IV SCH ×3 (06:23→23:00)
[2017-02-18] MEDS: INSULIN ASPART SUPPLEMENTAL SCALE SQ SCH ×4 (06:23→21:39)
--- NOTE | 2017-02-18 07:22 | HHI.FPPN ---
Subjective Remarks C/O FEET PAIN C/O GENERAL WEAKNESS NO HALLUCINATIONS D/W RN Objective Vitals Vital Signs Date Time Temp Pulse Resp B/P Pulse Ox O2 Delivery O2 Flow Rate FiO2 02/18/17 04:00 98.9 58 20 147/77 97 02/18/17 02:46 56 18 134/74 97 02/18/17 00:00 98.7 56 18 134/74 97 02/17/17 20:00 98.9 61 22 157/83 99 02/17/17 17:25 59 17 135/77 100 02/17/17 17:10 58 15 136/76 100 02/17/17 13:37 66 18 151/93 100 02/17/17 13:24 64 17 149/87 100 02/17/17 13:10 95.4 66 19 160/70 100 02/17/17 12:57 64 18 137/74 100 02/17/17 12:53 64 18 137/74 100 02/17/17 10:02 17 02/17/17 09:15 95.7 63 19 155/74 99 I/O 02/17/17 02/17/17 02/17/17 02/18/17 02/18/17 02/18/17 07:00 15:00 23:00 07:00 15:00 23:00 Intake Total 180 ml 720 ml 2060 ml Output Total 250 ml 1050 ml 1100 ml Balance -70 ml -330 ml 2060 ml -1100 ml Intake Oral 180 ml 720 ml IV Total 2060 ml Output Urine Total 250 ml 1050 ml 1100 ml # Voids 1 Result Diagram: 02/17/17 1106 02/17/17 1106 Objective Remarks Last 72 hours Impressions Foot X-Ray 02/17/17 0000 Signed Impressions: Service Date/Time: Friday, February 17, 2017 20:48 - CONCLUSION: Charcot joint and extensive soft tissue swelling/emphysema. No fracture. Zaid Darden MD Foot X-Ray 02/17/17 0000 Signed Impressions: Service Date/Time: Friday, February 17, 2017 20:50 - CONCLUSION: Charcot joint and extensive soft tissue swelling. No fracture. Zaid Darden MD Chest X-Ray 02/16/17 1318 Signed Impressions: Service Date/Time: Thursday, February 16, 2017 13:32 - CONCLUSION: No acute cardiopulmonary disease identified. Ganga Luna MD Medications and IVs Current Medications Medications (Trade) Dose Ordered Sig/Portia Route Start Time Stop Time Status Last Admin (NS Flush) 2 ml UNSCH PRN IV FLUSH 02/16/17 17:15 (NS Flush) 2 ml BID IV FLUSH 02/16/17 21:00 02/18/17 08:39 (Tylenol) 650 mg Q4H PRN PO 02/16/17 17:15 02/16/17 22:46 (Zofran Inj) 4 mg Q6H PRN IVP 02/16/17 17:15 (Tylenol) 650 mg Q6H PRN PO 02/16/17 17:15 02/18/17 05:31 (Narcan Inj) 0.4 mg UNSCH PRN IV 02/16/17 17:15 (Vasotec Inj) 1.25 mg Q6H PRN IV PUSH 02/16/17 17:15 02/18/17 09:12 (D50w (Vial) Inj) 50 ml UNSCH PRN IV 02/16/17 17:15 (Glucagon Inj) 1 mg UNSCH PRN OTHER 02/16/17 17:15 (Norvasc) 5 mg DAILY PO 02/17/17 09:00 02/18/17 08:39 (Ecotrin Ec) 81 mg DAILY PO 02/17/17 09:00 02/18/17 08:39 (Ativan) 0.5 mg Q8H PRN PO 02/16/17 17:45 Thioridazine HCl 200 mg 200 mg DAILY PO 02/17/17 09:00 02/18/17 08:39 Ceftriaxone Sodium 2000 mg/ Sodium Chloride 100 ml @ 200 mls/hr Q24H IV 02/18/17 09:00 02/18/17 08:39 (Cleocin Inj/NS Inj) 106 ml @ 212 mls/hr Q8H IV 02/17/17 15:00 02/18/17 06:23 (Colyte Liq) 4,000 ml ONCE ONCE PO 02/18/17 16:00 02/18/17 16:01 A/P Assessment and Plan Charcot B, with soft tissue infection L foot, likely with osteomyelitis- IV antibiotics Anemia, etiology unclear. S/P blood transfusion. Colnoscopy/EGD Jodi Elevated LFTs, etiology unclear Bacteremia due to gram-positive cocci Positive blood culture 2#4 Repeat blood culture and consult infectious disease specialist Sepsis: Present on admission UTI: IV ABX ; urine culture positive for gram-negative rods Acute on chronic kidney disease Resolved Hyponatremia BMP pending this morning Diabetes type 2 Hold glipizide secondary to worsening renal functions Continue insulin sliding scale fingerstick blood glucose monitoring Hypertension Continue Norvasc Schizophrenia Continue Thiorizadine Anxiety - Lorazepam PRN. DVT prophylaxis: Bilateral SCDs Jack Rod MD Feb 18, 2017 07:22
[2017-02-18 07:39] LABS: BASOPHIL # 0.1 TH/MM3 (0-0.2); BASOPHIL % 0.5 % (0.0-2.0); EOSINOPHIL # 0.2 TH/MM3 (0-0.4); EOSINOPHIL % 2.1 % (0.0-4.0); HEMATOCRIT 24.8 % (39.0-51.0); HEMO FLAGS DIFF FINAL; LYMPH % 12.5 % (9.0-44.0); LYMPHOCYTE # 1.4 TH/MM3 (1.0-4.8); MEAN CELL VOLUME 80.9 FL (80.0-100.0); MEAN CORPUSCULAR HEMOGLOBIN 27.8 PG (27.0-34.0); MEAN CORPUSCULAR HGB CONC 34.3 % (32.0-36.0); NEUT % 73.9 % (16.0-70.0); PLATELET COUNT 282 TH/MM3 (150-450); RED BLOOD COUNT 3.07 MIL/MM3 (4.50-5.90); RED CELL DISTRIBUTION WIDTH 15.6 % (11.6-17.2); WHITE BLOOD COUNT 10.8 TH/MM3 (4.0-11.0)
[2017-02-18 07:57] LABS: BICARBONATE 16.1 MEQ/L (21.0-32.0); POTASSIUM 3.8 MEQ/L (3.5-5.1)
[2017-02-18] MEDS: amLODIPine BESYLATE 5 MG TAB PO SCH (08:39)
[2017-02-18] MEDS: cefTRIAXone INJ 2,000 MG in SODIUM CHLORIDE 0.9% INJ 100 ML IV SCH (08:39)
[2017-02-18] MEDS: ASPIRIN EC 81 MG TABEC PO SCH (08:39)
[2017-02-18] MEDS: THIORIDAZINE HCL 100 MG PO SCH (08:39)
[2017-02-18] MEDS: SODIUM CHLORIDE 0.9% FLUSH 10 ML FLUSH IV FLUSH SCH ×2 (08:39→21:36)
[2017-02-18] MEDS: ENALAPRILAT 1.25 MG/ML VIAL IV PUSH PRN ×3 (09:12→21:41)
[2017-02-18] MEDS: cloNIDine HCL 0.1 MG TAB PO PRN ×2 (11:16→18:02)
--- NOTE | 2017-02-18 14:33 | HHI.IDPN ---
Subjective Subjective Remarks is a 56 y/o CM with PMHx of DM2 with neuropathy (denies known renal disease or eye involvement), Charcot foot disease, schizophrenia. With this background patient presented to the emergency department for evaluation of worsening shortness of breath, nonproductive cough. Patient reports no fevers but does endorse chills. Patient reports that he had a feeling of being congested. He denies any chest pain. He denies any prior history of anemia. He denies any history of GI bleed or prior GI workup. 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 Upon admission his hemoglobin was 7 fecal occult blood test was negative and during that admission his hemoglobin has dropped to 4 mg/dL and is currently undergoing 1 unit of PRBC. Chest x-ray has no cardiopulmonary disease. Sepsis workup was initiated on admission and blood cultures are positive for group A strep. His urine is positive for gram negatives. ID susceptibility pending. Infectious disease is consulted for evaluation and management of possible sepsis , group A strep bacteremia and possible foot infection. Has recd 3 PRBC in the last 24 hours. RN does not report any ongoing diarrhea or black tarry stools. No fevers No rash Antibiotics Ceftriaxone IV Clindamycin Lines Line sites with no evidence of infection. 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 Vital Signs Date Time Temp Pulse Resp B/P Pulse Ox O2 Delivery O2 Flow Rate FiO2 02/18/17 13:28 161/81 02/18/17 12:00 96.2 63 16 174/82 98 02/18/17 10:06 163/79 02/18/17 08:00 96.0 61 18 185/87 95 02/18/17 04:00 98.9 58 20 147/77 97 02/18/17 02:46 56 18 134/74 97 02/18/17 00:00 98.7 56 18 134/74 97 02/17/17 20:00 98.9 61 22 157/83 99 02/17/17 17:25 59 17 135/77 100 02/17/17 17:10 58 15 136/76 100 02/17/17 02/17/17 02/18/17 15:00 23:00 07:00 Intake Total 720 ml 2060 ml Output Total 1050 ml 1100 ml Balance -330 ml 2060 ml -1100 ml Intake Oral 720 ml IV Total 2060 ml Output Urine Total 1050 ml 1100 ml . Laboratory Tests Test 02/17/17 02/18/17 11:06 06:53 White Blood Count 12.4 TH/MM3 10.8 TH/MM3 Red Blood Count 1.66 MIL/MM3 3.07 MIL/MM3 Hemoglobin 4.7 GM/DL 8.5 GM/DL Hematocrit 14.2 % 24.8 % Mean Corpuscular Volume 85.4 FL 80.9 FL Mean Corpuscular Hemoglobin 28.5 PG 27.8 PG Mean Corpuscular Hemoglobin 33.3 % 34.3 % Concent Red Cell Distribution Width 15.1 % 15.6 % Platelet Count 342 TH/MM3 282 TH/MM3 Mean Platelet Volume 9.3 FL 9.6 FL Neutrophils (%) (Auto) 79.9 % 73.9 % Lymphocytes (%) (Auto) 10.5 % 12.5 % Monocytes (%) (Auto) 8.9 % 11.0 % Eosinophils (%) (Auto) 0.4 % 2.1 % Basophils (%) (Auto) 0.3 % 0.5 % Neutrophils # (Auto) 9.9 TH/MM3 8.0 TH/MM3 Lymphocytes # (Auto) 1.3 TH/MM3 1.4 TH/MM3 Monocytes # (Auto) 1.1 TH/MM3 1.2 TH/MM3 Eosinophils # (Auto) 0.0 TH/MM3 0.2 TH/MM3 Basophils # (Auto) 0.0 TH/MM3 0.1 TH/MM3 CBC Comment DIFF FINAL DIFF FINAL Differential Comment Hematology Comments Laboratory Tests Test 02/16/17 02/17/17 02/18/17 19:30 11:06 06:53 Lactic Acid Level 1.7 mmol/L Sodium Level 125 MEQ/L 126 MEQ/L Potassium Level 4.3 MEQ/L 3.8 MEQ/L Chloride Level 95 MEQ/L 99 MEQ/L Carbon Dioxide Level 19.9 MEQ/L 16.1 MEQ/L Anion Gap 10 MEQ/L 11 MEQ/L Blood Urea Nitrogen 50 MG/DL 55 MG/DL Creatinine 3.12 MG/DL 3.19 MG/DL Estimat Glomerular Filtration 21 ML/MIN 20 ML/MIN Rate Random Glucose 151 MG/DL 102 MG/DL Calcium Level 8.7 MG/DL 8.5 MG/DL Total Bilirubin 0.8 MG/DL Aspartate Amino Transf 617 U/L (AST/SGOT) Alanine Aminotransferase 311 U/L (ALT/SGPT) Alkaline Phosphatase 618 U/L Total Protein 7.7 GM/DL Albumin 1.6 GM/DL Microbiology Date/Time Procedure Status Source Growth 02/16/17 13:15 Aerobic Blood Culture - Preliminary Resulted Blood Peripheral Gram Positive Cocci 02/16/17 13:15 Anaerobic Blood Culture - Preliminary Resulted Group A Beta Strep 02/16/17 13:20 Aerobic Blood Culture - Preliminary Resulted Blood Peripheral NO GROWTH IN 2 DAYS 02/16/17 13:20 Anaerobic Blood Culture - Preliminary Resulted Streptococcus Species 02/16/17 14:15 Urine Culture - Final Complete Urine Catheterized Urine Proteus Mirabilis 02/17/17 11:06 Aerobic Blood Culture - Preliminary Resulted Blood Peripheral NO GROWTH IN 1 DAY 02/17/17 11:06 Anaerobic Blood Culture - Preliminary Resulted Blood Peripheral NO GROWTH IN 1 DAY 02/17/17 11:16 Aerobic Blood Culture - Preliminary Resulted Blood Peripheral NO GROWTH IN 1 DAY 02/17/17 11:16 Anaerobic Blood Culture - Preliminary Resulted Blood Peripheral NO GROWTH IN 1 DAY Imaging Last Impressions Foot X-Ray 02/17/17 0000 Signed Impressions: Service Date/Time: Friday, February 17, 2017 20:48 - CONCLUSION: Charcot joint and extensive soft tissue swelling/emphysema. No fracture. Zaid Darden MD Chest X-Ray 02/16/17 1318 Signed Impressions: Service Date/Time: Thursday, February 16, 2017 13:32 - CONCLUSION: No acute cardiopulmonary disease identified. Ganga Luna MD Physical Exam GENERAL: Thin built, well-developed patient, in no apparent distress. SKIN: No rashes, ecchymoses or lesions. Cool and dry. HEAD: Atraumatic. Normocephalic. No temporal or scalp tenderness. EYES: Pupils equal round and reactive. Extraocular motions intact. No scleral icterus. No injection or drainage. ENT: Nose without bleeding, purulent drainage or septal hematoma. Throat without erythema, tonsillar hypertrophy or exudate. Uvula midline. Airway patent. NECK: Trachea midline. No JVD or lymphadenopathy. Supple, nontender, no meningeal signs. CARDIOVASCULAR: Regular rate and rhythm without murmurs, gallops, or rubs. RESPIRATORY: Clear to auscultation. Breath sounds equal bilaterally. No wheezes , rales, or rhonchi. GASTROINTESTINAL: Abdomen soft, non-tender, nondistended. No hepato-splenomegaly , or palpable masses. No guarding. MUSCULOSKELETAL: Bilateral LE charcot deformities with plantar ulcers. Left plantar ulcer down to subq level. Right plantar ulcer ? down to muscle, could not probe to bone. NEUROLOGICAL: Awake and alert. Grossly non focal Psych: cooperative IV line sites with no e.o infection. Assessment & Plan Remarks Sepsis (fever, tachycardia, Strep bacteremia) present on admission Grp A Strep bacteremia: GI or foot as source Gram negative in urine: unreliable for symptomatology. Diabetic foot ulcer infected Charcot foot/DM Neuropathy. Acute on chronic renal failure (DM neuropathy as baseline). Chronic Hyponatremia likely chronic alcoholism related Schizophrenia, past psych admissions. Abnormal LFTs: sepsis or medication induced. Recs: Continue ceftriaxone increase dose. Continue Clinda IV (for toxin neutralization of Grp A Strep) Consult podiatry to assess if osteomyelitis workup needed (Bone scan and WBC scan needed for further workup) Await GI workup for anemia (assess need for EGD and colonoscopy in view of Strep bacteremia for addressing source) Kathryn Quintana MD Feb 18, 2017 14:33
[2017-02-18] MEDS ORDERED: PEG (High)/E-LYTE SOLN 4000 ML BTL PO ONE (16:00)
--- NOTE | 2017-02-18 17:18 | EC ---
Study Study Date:02/18/2017 STUDY CONCLUSIONS SUMMARY - Left ventricle: The cavity size was normal. Wall thickness was normal. Systolic function was moderately reduced. The estimated ejection fraction was in the range of 35% to 40%. Diffuse hypokinesis. Doppler parameters are consistent with abnormal left ventricular relaxation (grade 1 diastolic dysfunction). - Mitral valve: Mild regurgitation. - Tricuspid valve: Mild regurgitation. - Pulmonary arteries: PA peak pressure: 60mm Hg (S). If LV function is below 40, please consider prescribing an ACEI or ARB or document rationale for non-use. PROCEDURE DATA STUDY STATUS: Elective. Procedure: Transthoracic echocardiography. Image quality was good. Scanning was performed from the parasternal, apical, and subcostal acoustic windows. Study completion: The patient tolerated the procedure well. Transthoracic echocardiography. M-mode, complete 2D, complete spectral Doppler, and color Doppler. Patient status: Inpatient. CARDIAC ANATOMY LEFT VENTRICLE: The cavity size was normal. Wall thickness was normal. Systolic function was moderately reduced. The estimated ejection fraction was in the range of 35% to 40%. Diffuse hypokinesis. Doppler parameters are consistent with abnormal left ventricular relaxation (grade 1 diastolic dysfunction). AORTIC VALVE: Trileaflet; normal thickness, mildly calcified leaflets. Doppler: Transvalvular velocity was within the normal range. There was no stenosis. No regurgitation. Mean gradient: 8mm Hg (S). AORTA: Aortic root: The aortic root was normal in size. MITRAL VALVE: Structurally normal valve. Doppler: Transvalvular velocity was within the normal range. There was no evidence for stenosis. Mild regurgitation. Peak gradient: 3mm Hg (D). LEFT ATRIUM: The atrium was normal in size. RIGHT VENTRICLE: The cavity size was normal. Wall thickness was normal. PULMONIC VALVE: Doppler: Transvalvular velocity was within the normal range. There was no evidence for stenosis. No regurgitation. TRICUSPID VALVE: Structurally normal valve. Doppler: Transvalvular velocity was within the normal range. Mild regurgitation. PULMONARY ARTERY: The main pulmonary artery was normal-sized. Systolic pressure was within the normal range. RIGHT ATRIUM: The atrium was normal in size. PERICARDIUM: There was no pericardial effusion. SYSTEMIC VEINS: Inferior vena cava: The vessel was normal in size. BASIC MEASUREMENTS ADULT Normal Left ventricle LV internal dimension, ED, chordal level, 51.2 mm 43-52 PLAX LV internal dimension, ES, chordal level, *42.9 mm 23-38 PLAX Fractional shortening, chordal level, PLAX *16 % >29 LV posterior wall thickness, ED 7.26 mm IVS/LVPW ratio, ED 1.22 <1.3 Ventricular septum Septal thickness, ED 8.83 mm Left atrium Anterior-posterior dimension 43 mm Right ventricle RV internal dimension, ED, PLAX 26 mm 19-38 DOPPLER MEASUREMENTS ADULT Normal Main pulmonary artery Pressure, S *60 mm Hg =30 Aortic valve Peak velocity, S 146 cm/s Mean velocity, S 133 cm/s VTI, S 47.8 cm Mean gradient, S 8 mm Hg Mitral valve Peak E-wave velocity 80 cm/s Peak A-wave velocity 55.8 cm/s Peak gradient, D 3 mm Hg Peak E/A ratio 1.4 Tricuspid valve Regurgitant peak velocity 238 cm/s Peak RV-RA gradient, S 23 mm Hg Maximal regurgitant velocity 238 cm/s Systemic veins Estimated CVP 20 mm Hg Right ventricle RV pressure, S *60 mm Hg <30 LEGEND: Mean values are shown as u=mean value. Asterisk (*) ambriz values outside specified normal range. Prepared and signed by Kraig Kearns [id number]
[2017-02-19] VITALS (8 sets, daily range): BP systolic 118–185; BP diastolic 64–85; PULSE 59–65; RESP 17–21; TEMP 95.2–98.2; O2SAT 94–98
[2017-02-19] MEDS: CLINDAMYCIN INJ 900 MG in SODIUM CHLORIDE 0.9% INJ 100 ML IV SCH (05:39)
[2017-02-19] MEDS: INSULIN ASPART SUPPLEMENTAL SCALE SQ SCH ×4 (05:39→21:00)
[2017-02-19] MEDS: DEXT 5%-NACL 0.9% 1000 ML INJ 1,000 ML IV SCH (06:15)
[2017-02-19] MEDS: ASPIRIN EC 81 MG TABEC PO SCH (08:36)
[2017-02-19] MEDS: ENALAPRILAT 1.25 MG/ML VIAL IV PUSH PRN ×2 (08:36→17:10)
[2017-02-19] MEDS: THIORIDAZINE HCL 100 MG PO SCH (08:36)
[2017-02-19] MEDS: cloNIDine HCL 0.1 MG TAB PO PRN ×2 (08:36→17:10)
[2017-02-19] MEDS: amLODIPine BESYLATE 5 MG TAB PO SCH ×2 (08:36→21:32)
[2017-02-19] MEDS: cefTRIAXone INJ 2,000 MG in SODIUM CHLORIDE 0.9% INJ 100 ML IV SCH (08:37)
[2017-02-19] MEDS: SODIUM CHLORIDE 0.9% FLUSH 10 ML FLUSH IV FLUSH SCH ×2 (08:37→21:00)
[2017-02-19 09:21] LABS: AUTOMATED NEUTROPHIL # 7.3 TH/MM3 (1.8-7.7); BASOPHIL # 0.1 TH/MM3 (0-0.2); BASOPHIL % 0.5 % (0.0-2.0); EOSINOPHIL # 0.3 TH/MM3 (0-0.4); EOSINOPHIL % 2.7 % (0.0-4.0); HEMATOCRIT 27.3 % (39.0-51.0); HEMO FLAGS DIFF FINAL; LYMPH % 12.1 % (9.0-44.0); LYMPHOCYTE # 1.2 TH/MM3 (1.0-4.8); MEAN CELL VOLUME 82.7 FL (80.0-100.0); MEAN CORPUSCULAR HEMOGLOBIN 27.7 PG (27.0-34.0); MEAN CORPUSCULAR HGB CONC 33.5 % (32.0-36.0); MONO % 13.1 % (0.0-8.0); NEUT % 71.6 % (16.0-70.0); PLATELET COUNT 299 TH/MM3 (150-450); RED CELL DISTRIBUTION WIDTH 15.6 % (11.6-17.2); WHITE BLOOD COUNT 10.2 TH/MM3 (4.0-11.0)
[2017-02-19 09:28] LABS: BICARBONATE 21.3 MEQ/L (21.0-32.0); POTASSIUM 3.4 MEQ/L (3.5-5.1)
--- NOTE | 2017-02-19 11:01 | HHI.FPPN ---
Subjective Remarks CALLED FOR HYPOGLYCEMIA IVFS RX D/W RN PT C/O LEG PAIN PT NONSENSICAL TODAY Objective Vitals Vital Signs Date Time Temp Pulse Resp B/P Pulse Ox O2 Delivery O2 Flow Rate FiO2 02/19/17 08:32 95.5 61 20 171/73 98 02/19/17 04:30 98.2 62 20 118/64 97 02/19/17 00:00 97.0 64 21 120/67 96 02/18/17 21:45 97.7 64 21 120/67 96 02/18/17 21:40 166/74 02/18/17 21:40 56 18 165/72 100 02/18/17 16:00 96.7 61 17 162/81 99 02/18/17 13:28 161/81 02/18/17 12:00 96.2 63 16 174/82 98 I/O 02/18/17 02/18/17 02/18/17 02/19/17 02/19/17 02/19/17 07:00 15:00 23:00 07:00 15:00 23:00 Intake Total 1440 ml 400 ml Output Total 1100 ml 300 ml 600 ml 900 ml Balance -1100 ml 1140 ml -600 ml -500 ml Intake Oral 1440 ml 400 ml Output Urine Total 1100 ml 300 ml 600 ml 700 ml Stool Total 200 ml # Voids 4 1 # Bowel Movements 0 Result Diagram: 02/19/1781902/19/17 0820 Objective Remarks GENERAL: SKIN: Warm and dry. LARGE WOUNDS B SOLES, B CHARCOT HEAD: Atraumatic. Normocephalic. EYES: Pupils equal and round. No scleral icterus. No injection or drainage. ENT: No nasal bleeding or discharge. Mucous membranes pink and moist. NECK: Trachea midline. No JVD. CARDIOVASCULAR: Regular rate and rhythm. RESPIRATORY: No accessory muscle use. Clear to auscultation. Breath sounds equal bilaterally. GASTROINTESTINAL: Abdomen soft, non-tender, nondistended. Hepatic and splenic margins not palpable. MUSCULOSKELETAL: Extremities without clubbing, cyanosis, or edema. No obvious deformities. NEUROLOGICAL: Awake and alert. No obvious cranial nerve deficits. Motor grossly within normal limits. 2 out of 5 muscle strength in the arms and legs. Normal speech. PSYCHIATRIC: Appropriate mood and affect; insight and judgment normal. A/P Assessment and Plan Charcot B, with soft tissue infection L foot, likely with osteomyelitis- IV antibiotics Anemia, etiology unclear. S/P blood transfusion. Colnoscopy/EGD Saturday Elevated LFTs, etiology unclear Bacteremia due to gram-positive cocci Positive blood culture 2#4 Repeat blood culture and consult infectious disease specialist Sepsis: Present on admission UTI: IV ABX ; urine culture positive for gram-negative rods HYPOKALEMIA: REPLACE LYTES. Acute on chronic kidney disease Resolved Hyponatremia BMP pending this morning Diabetes type 2 Hold glipizide secondary to worsening renal functions Continue insulin sliding scale fingerstick blood glucose monitoring Hypertension INCR Norvasc Schizophrenia Continue Thiorizadine Anxiety - Lorazepam PRN. DVT prophylaxis: Bilateral SCDs Jack Rod MD Feb 19, 2017 11:01
[2017-02-19] MEDS ORDERED: POTASSIUM CHLORIDE 10 MEQ CONTROLLED RELEASE TAB PO ONE (11:15)
--- NOTE | 2017-02-19 11:29 | RADRPT ---
EXAM DATE/TIME: 02/18/2017 12:35 [place] COMPARISON: WBC SPECT CERETEC, September 16, 2016, 0:00. INDICATIONS : Bilateral foot ulcer. DOSE: 21 mCi Tc99m Ceretec labeled white blood cells IV SPECT IMAGIN hrs, 20 hrs IMAGNG: SPECT/CT imaging with fusion was performed. RADIATION DOSE: 5.95 CTDIvol (mGy) MEDICAL HISTORY : Diabetes mellitus type 2. Hypertension. Schizoprenia. SURGICAL HISTORY : None. ENCOUNTER: Initial ACUITY: 2 weeks PAIN SCALE: 3/10 LOCATION: Bilateral Foot. TECHNIQUE: Following the in vitro labeling of autologous white cells and reinjection, whole body scan was perfor med at the specified times. SPECT imaging was performed at the specified time in sagittal, axial and coronal planes. Attenuation correction was performed with the computed tomography and both the atten uation correction and non-attenuation corrected data sets were reviewed. FINDINGS: On the right side, there is some minimal soft tissue accumulation of white cells the plantar aspect o f the midfoot which does not extend deep. No abnormal uptake in the osseous structures. Normal left side, there is intense white cell accumulation on the 3 hour images both in the soft tiss ues and extending deep into the osseous structures the midfoot. On the sagittal SPECT images, the co nfiguration of the activity suggests a sinus track. On the 20 hour images, there is focal moderate i ntense localization of white cells within the inferior central cuboid bone. . CONCLUSION: Findings are highly suspicious for osteomyelitis in the left cuboid bone with sinus tract extending t o cellulitis/ulcer plantar aspect of the left foot. No abnormal white cell accumulation to the osseo us structures of the right foot. Randall Car MD on February 19, 2017 at 11:23 Board Certified Radiologist. This report was verified electronically.
[2017-02-19] MEDS ORDERED: PROPOFOL 200 MG/20 ML AMP IV ONE (14:39)
[2017-02-19] MEDS ORDERED: DO NOT ADM ANY ANTICOAGULANT DRUGS PRN (15:03)
--- NOTE | 2017-02-19 15:08 | GIPROC ---
[facility] [address] [facility], [address] EGD PROCEDURE REPORT EXAM DATE: 02/19/2017 PATIENT NAME: Alexei Yanes MR #: [id number] BIRTHDATE: 1960 ATTENDING: Wali Rajput MD ORDER #: [id number] ASSOCIATE DEAN: Ken Hauser and Jing Walker STATUS: inpatient INDICATIONS: The patient is a 56 yr old male here for an EGD due to anemia PROCEDURE PERFORMED: EGD, diagnostic MEDICATIONS: None and Per Anesthesia. TOPICAL ANESTHETIC: none CONSENT: The patient understands the risks and benefits of the procedure and understands that these risks include, but are not limited to: sedation, allergic reaction, infection, perforation and/or bleeding. Alternative means of evaluation and treatment include, among others: physical exam, x-rays, and/or surgical intervention. The patient elects to proceed with this endoscopic procedure. medical equipment was checked for proper function. Hand hygiene and appropriate measures for infection prevention was taken. After the risks, benefits and alternatives of the procedure were thoroughly explained, Informed consent was verified, confirmed and timeout was successfully executed by the treatment team. The patient was anesthetized with topical anesthesia and the Flocastsax [id number] endoscope was introduced through the mouth and advanced to the second portion of the duodenum. Retroflexed views revealed Covered by food The gastroscope was then slowly withdrawn and removed. ESOPHAGUS: The esophagus was otherwise normal. STOMACH: There was a large amount of residual food seen in the entire examined stomach. Due to the residual food, complete mucosal examination could not be performed. DUODENUM: The duodenal mucosa appeared normal in the bulb and second portion of the duodenum. ADVERSE EVENTS: There were no complications. IMPRESSIONS: 1. The esophagus was otherwise normal 2. Food residue in the entire examined stomach 3. Normal duodenal mucosa in the bulb and second portion of the duodenum 4. Retroflexed views revealed Covered by food RECOMMENDATIONS: No treatment PATIENT CONDITION: stable DISPOSITION: Observation REPEAT EXAM: Return 1 day EGD Wali Rajput MD eSigned: Wali Rajput MD 02/19/2017 3:08 PM cc:
--- NOTE | 2017-02-19 15:13 | GIPROC ---
[facility] [address] [facility]. [facility], [address] COLONOSCOPY PROCEDURE REPORT EXAM DATE: 02/19/2017 PATIENT NAME: Alexei Yanes MR #: [id number] BIRTHDATE: 1960 ENDOSCOPIST: Wali Rajput MD ORDER #: [id number] FIBERGLASS TUBE MOLDER: Ken Hauser and Jing Walker STATUS: inpatient INDICATIONS: The patient is a 56 yr old male here for a colonoscopy due to anemia, non-specific PROCEDURE PERFORMED: Colonoscopy, diagnostic MEDICATIONS: None and Per Anesthesia. PREP QUALITY: inadequate PREP TYPE:GoLytely ESTIMATED BLOOD LOSS: None CONSENT: The patient understands the risks and benefits of the procedure and understands that these risks include, but are not limited to: sedation, allergic reaction, infection, perforation and/or bleeding. Alternative means of evaluation and treatment include, among others: physical exam, x-rays, and/or surgical intervention. The patient elects to proceed with this endoscopic procedure. medical equipment was checked for proper function. Hand hygiene and appropriate measures for infection prevention was taken. After the risks, benefits and alternatives of the procedure were thoroughly explained, Informed consent was verified, confirmed and timeout was successfully executed by the treatment team. A digital exam was performed The Pentax [id number] endoscope was introduced through the anus and advanced to the cecum, which was identified by both the appendix and ileocecal valve. The instrument was then slowly withdrawn as the colon was fully examined. COLON FINDINGS: A significant amount of stool was present throughout the entire examined colon. Retroflexion was not performed The scope was then completely withdrawn from the patient and the procedure terminated. PROCEDURE WITHDRAWAL TIME:10minutes ADVERSE EVENTS: There were no complications. IMPRESSIONS: 1. Significant amount of stool was present throughout the entire examined colon limiting the exam to hepatic flexure 2. Incomplete study but no large lesions or pathology in the examined part RECOMMENDATIONS: No treatment RECALL: Repeat Colonoscopy in AM Wali Rajput MD eSigned: Wali Rajput MD 02/19/2017 3:12 PM cc:
[2017-02-19] MEDS ORDERED: BISACODYL EC 5 MG TABEC PO ONE (16:00)
[2017-02-19] MEDS ORDERED: MAGNESIUM CITRATE SOLN 300 ML BTL PO ONE (16:00)
--- NOTE | 2017-02-19 16:15 | HHI.IDPN ---
Subjective Subjective Remarks is a 56 y/o CM with PMHx of DM2 with neuropathy (denies known renal disease or eye involvement), Charcot foot disease, schizophrenia. With this background patient presented to the emergency department for evaluation of worsening shortness of breath, nonproductive cough. Patient reports no fevers but does endorse chills. Patient reports that he had a feeling of being congested. He denies any chest pain. He denies any prior history of anemia. He denies any history of GI bleed or prior GI workup. 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 Upon admission his hemoglobin was 7 fecal occult blood test was negative and during that admission his hemoglobin has dropped to 4 mg/dL and is currently undergoing 1 unit of PRBC. Chest x-ray has no cardiopulmonary disease. Sepsis workup was initiated on admission and blood cultures are positive for group A strep. His urine is positive for gram negatives. ID susceptibility pending. Infectious disease is consulted for evaluation and management of possible sepsis , group A strep bacteremia and possible foot infection. No fevers No rash Antibiotics Ceftriaxone IV Clindamycin Lines Line sites with no evidence of infection. 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 Vital Signs Date Time Temp Pulse Resp B/P Pulse Ox O2 Delivery O2 Flow Rate FiO2 02/19/17 15:35 51 17 118/62 96 02/19/17 15:23 49 16 131/66 93 02/19/17 15:05 96.7 48 16 123/63 92 02/19/17 14:15 96.0 59 17 183/84 98 02/19/17 12:12 95.4 59 17 183/84 98 02/19/17 08:32 95.5 61 20 171/73 98 02/19/17 04:30 98.2 62 20 118/64 97 02/19/17 00:00 97.0 64 21 120/67 96 02/18/17 21:45 97.7 64 21 120/67 96 02/18/17 21:40 166/74 02/18/17 21:40 56 18 165/72 100 02/18/17 02/18/17 02/19/17 15:00 23:00 07:00 Intake Total 1440 ml 400 ml Output Total 300 ml 600 ml 900 ml Balance 1140 ml -600 ml -500 ml Intake Oral 1440 ml 400 ml Output Urine Total 300 ml 600 ml 700 ml Stool Total 200 ml # Voids 4 1 # Bowel Movements 0 . Laboratory Tests Test 02/18/17 02/19/17 06:53 08:20 White Blood Count 10.8 TH/MM3 10.2 TH/MM3 Red Blood Count 3.07 MIL/MM3 3.30 MIL/MM3 Hemoglobin 8.5 GM/DL 9.1 GM/DL Hematocrit 24.8 % 27.3 % Mean Corpuscular Volume 80.9 FL 82.7 FL Mean Corpuscular Hemoglobin 27.8 PG 27.7 PG Mean Corpuscular Hemoglobin 34.3 % 33.5 % Concent Red Cell Distribution Width 15.6 % 15.6 % Platelet Count 282 TH/MM3 299 TH/MM3 Mean Platelet Volume 9.6 FL 9.2 FL Neutrophils (%) (Auto) 73.9 % 71.6 % Lymphocytes (%) (Auto) 12.5 % 12.1 % Monocytes (%) (Auto) 11.0 % 13.1 % Eosinophils (%) (Auto) 2.1 % 2.7 % Basophils (%) (Auto) 0.5 % 0.5 % Neutrophils # (Auto) 8.0 TH/MM3 7.3 TH/MM3 Lymphocytes # (Auto) 1.4 TH/MM3 1.2 TH/MM3 Monocytes # (Auto) 1.2 TH/MM3 1.3 TH/MM3 Eosinophils # (Auto) 0.2 TH/MM3 0.3 TH/MM3 Basophils # (Auto) 0.1 TH/MM3 0.1 TH/MM3 CBC Comment DIFF FINAL DIFF FINAL Differential Comment Hematology Comments Laboratory Tests Test 02/18/17 02/19/17 06:53 08:20 Sodium Level 126 MEQ/L 134 MEQ/L Potassium Level 3.8 MEQ/L 3.4 MEQ/L Chloride Level 99 MEQ/L 101 MEQ/L Carbon Dioxide Level 16.1 MEQ/L 21.3 MEQ/L Anion Gap 11 MEQ/L 12 MEQ/L Blood Urea Nitrogen 55 MG/DL 46 MG/DL Creatinine 3.19 MG/DL 2.83 MG/DL Estimat Glomerular Filtration 20 ML/MIN 23 ML/MIN Rate Random Glucose 102 MG/DL 78 MG/DL Calcium Level 8.5 MG/DL 8.7 MG/DL Microbiology Date/Time Procedure Status Source Growth 02/17/17 11:06 Aerobic Blood Culture - Preliminary Resulted Blood Peripheral NO GROWTH IN 2 DAYS 02/17/17 11:06 Anaerobic Blood Culture - Preliminary Resulted Blood Peripheral NO GROWTH IN 2 DAYS 02/17/17 11:16 Aerobic Blood Culture - Preliminary Resulted Blood Peripheral NO GROWTH IN 2 DAYS 02/17/17 11:16 Anaerobic Blood Culture - Preliminary Resulted Blood Peripheral NO GROWTH IN 2 DAYS Imaging Last Impressions Foot X-Ray 02/17/17 0000 Signed Impressions: Service Date/Time: Friday, February 17, 2017 20:48 - CONCLUSION: Charcot joint and extensive soft tissue swelling/emphysema. No fracture. Zaid Darden MD Chest X-Ray 02/16/17 1318 Signed Impressions: Service Date/Time: Thursday, February 16, 2017 13:32 - CONCLUSION: No acute cardiopulmonary disease identified. Ganga Luna MD Physical Exam GENERAL: Thin built, well-developed patient, in no apparent distress. SKIN: No rashes, ecchymoses or lesions. Cool and dry. HEAD: Atraumatic. Normocephalic. No temporal or scalp tenderness. EYES: Pupils equal round and reactive. Extraocular motions intact. No scleral icterus. No injection or drainage. ENT: Nose without bleeding, purulent drainage or septal hematoma. Throat without erythema, tonsillar hypertrophy or exudate. Uvula midline. Airway patent. NECK: Trachea midline. No JVD or lymphadenopathy. Supple, nontender, no meningeal signs. CARDIOVASCULAR: Regular rate and rhythm without murmurs, gallops, or rubs. RESPIRATORY: Clear to auscultation. Breath sounds equal bilaterally. No wheezes , rales, or rhonchi. GASTROINTESTINAL: Abdomen soft, non-tender, nondistended. No hepato-splenomegaly , or palpable masses. No guarding. MUSCULOSKELETAL: Bilateral LE charcot deformities with plantar ulcers. Bilateral feet in dressings. NEUROLOGICAL: Awake and alert. Grossly non focal Psych: cooperative IV line sites with no e.o infection. Assessment & Plan Remarks Sepsis (fever, tachycardia, Strep bacteremia) present on admission Grp A Strep bacteremia: GI or foot as source Gram negative in urine: unreliable for symptomatology. Diabetic foot ulcer infected Charcot foot/DM Neuropathy. Acute on chronic renal failure (DM neuropathy as baseline). Chronic Hyponatremia likely chronic alcoholism related Schizophrenia, past psych admissions. Abnormal LFTs: sepsis or medication induced. Recs: Continue ceftriaxone increase dose. DC Clinda IV Strep likely source GI or skin. WBC scan abnormal concern for osteomyelitis. d.w Podiatry to get a bone biopsy for diagnostic purposes for isolation of all organisms that need to be treated as bacteremia may or may not be related to the skin infection and bone could have different organisms. Biopsy planned for tomorrow bedside per my discussion with provided patient agrees. Patient has refused amputation or aggressive surgical management at this point. Kathryn Quintana MD Feb 19, 2017 16:15
[2017-02-19] MEDS: ACETAMINOPHEN 325 MG TAB PO PRN (21:35)
[2017-02-20] VITALS (7 sets, daily range): BP systolic 153–189; BP diastolic 68–80; PULSE 57–66; RESP 16–20; TEMP 95.4–97.2; O2SAT 92–99
[2017-02-20] MEDS ORDERED: METOPROLOL TARTRATE 25 MG TAB PO PRN (05:45)
[2017-02-20] MEDS ORDERED: LACTATED RINGER'S 1000 ML IV PRN (05:45)
[2017-02-20] MEDS ORDERED: POVIDONE IODINE 5% (ANTISEPSIS KIT) 4 APPLICATIONS EACH NARE PRN (05:45)
[2017-02-20] MEDS ORDERED: SODIUM CHLORID 0.9% 500 ML IV PRN (05:45)
[2017-02-20] MEDS ORDERED: CHLORHEXIDINE GLUCONATE 2 % 1 PACK (2 CLOTHS) TOPICAL PRN (05:45)
[2017-02-20] MEDS: DEXT 5%-NACL 0.9% 1000 ML INJ 1,000 ML IV SCH (06:15)
[2017-02-20] MEDS: INSULIN ASPART SUPPLEMENTAL SCALE SQ SCH ×4 (06:55→20:32)
[2017-02-20] MEDS: SODIUM CHLORIDE 0.9% FLUSH 10 ML FLUSH IV FLUSH SCH ×2 (08:18→21:30)
[2017-02-20] MEDS: THIORIDAZINE HCL 100 MG PO SCH (08:19)
[2017-02-20] MEDS: amLODIPine BESYLATE 5 MG TAB PO SCH ×2 (08:19→21:29)
[2017-02-20] MEDS: ASPIRIN EC 81 MG TABEC PO SCH (08:19)
[2017-02-20] MEDS: cefTRIAXone INJ 2,000 MG in SODIUM CHLORIDE 0.9% INJ 100 ML IV SCH (08:20)
[2017-02-20] MEDS: ACETAMINOPHEN 325 MG TAB PO PRN (08:20)
[2017-02-20 08:27] LABS: AUTOMATED NEUTROPHIL # 6.5 TH/MM3 (1.8-7.7); BASOPHIL # 0.1 TH/MM3 (0-0.2); BASOPHIL % 0.7 % (0.0-2.0); EOSINOPHIL # 0.3 TH/MM3 (0-0.4); EOSINOPHIL % 2.7 % (0.0-4.0); HEMATOCRIT 27.1 % (39.0-51.0); HEMO FLAGS DIFF FINAL; LYMPH % 17.6 % (9.0-44.0); LYMPHOCYTE # 1.7 TH/MM3 (1.0-4.8); MEAN CELL VOLUME 83.2 FL (80.0-100.0); MEAN CORPUSCULAR HEMOGLOBIN 27.3 PG (27.0-34.0); MEAN CORPUSCULAR HGB CONC 32.8 % (32.0-36.0); MONO % 12.2 % (0.0-8.0); NEUT % 66.8 % (16.0-70.0); PLATELET COUNT 343 TH/MM3 (150-450); RED BLOOD COUNT 3.25 MIL/MM3 (4.50-5.90); RED CELL DISTRIBUTION WIDTH 15.9 % (11.6-17.2); WHITE BLOOD COUNT 9.7 TH/MM3 (4.0-11.0)
[2017-02-20 08:58] LABS: BICARBONATE 23.7 MEQ/L (21.0-32.0); POTASSIUM 3.4 MEQ/L (3.5-5.1)
[2017-02-20] MEDS ORDERED: PROPOFOL 200 MG/20 ML AMP IV ONE (10:30)
--- NOTE | 2017-02-20 10:57 | GIPROC ---
[facility] [address] [facility]. [facility], [address] EGD PROCEDURE REPORT EXAM DATE: 02/20/2017 PATIENT NAME: Alexei Yanes MR #: [id number] BIRTHDATE: 1960 ATTENDING: Wali Rajput MD ORDER #: [id number] CONTENT MANAGER: Bill Weaver and Jing Walker STATUS: inpatient INDICATIONS: The patient is a 56 yr old male here for an EGD due to anemia PROCEDURE PERFORMED: EGD w/ biopsy MEDICATIONS: None and Per Anesthesia. TOPICAL ANESTHETIC: none CONSENT: The patient understands the risks and benefits of the procedure and understands that these risks include, but are not limited to: sedation, allergic reaction, infection, perforation and/or bleeding. Alternative means of evaluation and treatment include, among others: physical exam, x-rays, and/or surgical intervention. The patient elects to proceed with this endoscopic procedure. medical equipment was checked for proper function. Hand hygiene and appropriate measures for infection prevention was taken. After the risks, benefits and alternatives of the procedure were thoroughly explained, Informed consent was verified, confirmed and timeout was successfully executed by the treatment team. The patient was anesthetized with topical anesthesia and the [id number] (Pedi C) endoscope was introduced through the mouth and advanced to the second portion of the duodenum. Retroflexion was performed and was normal The gastroscope was then slowly withdrawn and removed. ESOPHAGUS: The esophagus was otherwise normal. STOMACH: There was a large amount of residual food seen in the entire examined stomach. Based on this, I suspect the patient has some level of gastroparesis. Due to the residual food, complete mucosal examination could not be performed. A medium sized non-bleeding, irregular shaped and clean-based ulcer was found in the gastric antrum. Biopsies were taken at edge of the ulcer and at the center of the ulcer. ADVERSE EVENTS: There were no complications. IMPRESSIONS: 1. The esophagus was otherwise normal 2. Food residue in the entire examined stomach 3. Medium sized ulcer was found in the gastric antrum; biopsies were taken 4. Retroflexion was performed and was normal RECOMMENDATIONS: 1. Await biopsy results. Biopsy results will not be ready for 7-10 days. If you don't hear from us in two weeks, call our office for biopsy results. 2. Continue PPI PATIENT CONDITION: stable DISPOSITION: Observation REPEAT EXAM: Return as needed for EGD Wali Rajput MD eSigned: Wali Rajput MD 02/20/2017 10:56 AM cc: PATIENT NAME: Alexei Yanes MR#: [id number]
--- NOTE | 2017-02-20 11:00 | GIPROC ---
[facility] [address] [facility]. [facility], [address] COLONOSCOPY PROCEDURE REPORT EXAM DATE: 02/20/2017 PATIENT NAME: Alexei Yanes MR #: [id number] BIRTHDATE: 1960 ENDOSCOPIST: Wali Rajput MD ORDER #: [id number] SPECIFICATION MANAGER: Bill Weaver and Jing Walker STATUS: inpatient INDICATIONS: The patient is a 56 yr old male here for a colonoscopy due to anemia, non-specific PROCEDURE PERFORMED: Colonoscopy, incomplete MEDICATIONS: None and Per Anesthesia. PREP QUALITY: poor PREP TYPE:Magnesium Citrate ESTIMATED BLOOD LOSS: None CONSENT: The patient understands the risks and benefits of the procedure and understands that these risks include, but are not limited to: sedation, allergic reaction, infection, perforation and/or bleeding. Alternative means of evaluation and treatment include, among others: physical exam, x-rays, and/or surgical intervention. The patient elects to proceed with this endoscopic procedure. medical equipment was checked for proper function. Hand hygiene and appropriate measures for infection prevention was taken. After the risks, benefits and alternatives of the procedure were thoroughly explained, Informed consent was verified, confirmed and timeout was successfully executed by the treatment team. A digital exam was performed The Pentax [id number] endoscope was introduced through the anus and advanced to the cecum, which was identified by both the appendix and ileocecal valve. The instrument was then slowly withdrawn as the colon was fully examined. COLON FINDINGS: A significant amount of stool was present throughout the entire examined colon. Retroflexion was not performed The scope was then completely withdrawn from the patient and the procedure terminated. PROCEDURE WITHDRAWAL TIME:15minutes ADVERSE EVENTS: There were no complications. IMPRESSIONS: 1. Significant amount of stool was present throughout the entire examined colon 2. Retroflexion was not performed 3. Incomplete study secondary to poor prep, could not advance the scope beyond hepatic flexure RECOMMENDATIONS: Xray for Barium enema RECALL: Return 6 months Colonoscopy Wali Rajput MD eSigned: Wali Rajput MD 02/20/2017 10:59 AM cc:
--- NOTE | 2017-02-20 11:18 | HHI.FPPN ---
Subjective Remarks REQS PAIN MEDS C/O LEG EDEMA D/W RN Objective Vitals Vital Signs Date Time Temp Pulse Resp B/P Pulse Ox O2 Delivery O2 Flow Rate FiO2 02/20/17 10:52 49 18 132/65 100 02/20/17 10:42 97.6 49 18 136/61 100 02/20/17 09:10 02/20/17 06:27 95.4 57 20 165/74 95 02/20/17 00:00 97.2 58 18 153/68 92 02/19/17 20:00 95.3 61 17 157/71 94 02/19/17 18:28 97 Nasal Cannula 2.00 02/19/17 16:30 95.2 65 18 185/85 97 02/19/17 15:35 51 17 118/62 96 02/19/17 15:23 49 16 131/66 93 02/19/17 15:05 96.7 48 16 123/63 92 02/19/17 14:15 96.0 59 17 183/84 98 02/19/17 12:12 95.4 59 17 183/84 98 I/O 02/19/17 02/19/17 02/19/17 02/20/17 02/20/17 02/20/17 07:00 15:00 23:00 07:00 15:00 23:00 Intake Total 400 ml 480 ml 400 ml Output Total 900 ml 1000 ml 1400 ml 500 ml Balance -500 ml -520 ml -1400 ml -100 ml Intake Oral 400 ml 180 ml IV Total 300 ml Other 400 ml Output Urine Total 700 ml 1000 ml 400 ml 500 ml Stool Total 200 ml 1000 ml # Voids 1 3 # Bowel Movements 2 0 0 Result Diagram: 02/20/17 0735 02/20/17 0735 Objective Remarks GENERAL: SKIN: Warm and dry. LARGE WOUNDS B SOLES, B CHARCOT HEAD: Atraumatic. Normocephalic. EYES: Pupils equal and round. No scleral icterus. No injection or drainage. ENT: No nasal bleeding or discharge. Mucous membranes pink and moist. NECK: Trachea midline. No JVD. CARDIOVASCULAR: Regular rate and rhythm. RESPIRATORY: No accessory muscle use. Clear to auscultation. Breath sounds equal bilaterally. GASTROINTESTINAL: Abdomen soft, non-tender, nondistended. Hepatic and splenic margins not palpable. MUSCULOSKELETAL: Extremities without clubbing, cyanosis, or edema. No obvious deformities. NEUROLOGICAL: Awake and alert. No obvious cranial nerve deficits. Motor grossly within normal limits. 2 out of 5 muscle strength in the arms and legs. Normal speech. PSYCHIATRIC: Appropriate mood and affect; insight and judgment normal. Medications and IVs Current Medications Medications (Trade) Dose Ordered Sig/Portia Route Start Time Stop Time Status Last Admin (NS Flush) 2 ml UNSCH PRN IV FLUSH 02/16/17 17:15 (NS Flush) 2 ml BID IV FLUSH 02/16/17 21:00 02/18/17 21:36 (Tylenol) 650 mg Q4H PRN PO 02/16/17 17:15 02/16/17 22:46 (Zofran Inj) 4 mg Q6H PRN IVP 02/16/17 17:15 (Tylenol) 650 mg Q6H PRN PO 02/16/17 17:15 02/20/17 08:20 (Narcan Inj) 0.4 mg UNSCH PRN IV 02/16/17 17:15 (Vasotec Inj) 1.25 mg Q6H PRN IV PUSH 02/16/17 17:15 02/19/17 17:10 (D50w (Vial) Inj) 50 ml UNSCH PRN IV 02/16/17 17:15 (Glucagon Inj) 1 mg UNSCH PRN OTHER 02/16/17 17:15 (Ecotrin Ec) 81 mg DAILY PO 02/17/17 09:00 02/20/17 08:19 (Ativan) 0.5 mg Q8H PRN PO 02/16/17 17:45 Thioridazine HCl 200 mg 200 mg DAILY PO 02/17/17 09:00 02/20/17 08:19 (Rocephin Inj/NS Inj) 100 ml @ 200 mls/hr Q24H IV 02/18/17 09:00 02/20/17 08:20 Clonidine 0.1 mg 0.1 mg Q6H PRN PO 02/18/17 11:00 02/19/17 17:10 (D5W-NS 1000 ml Inj) 1,000 ml @ 20 mls/hr Q24H IV 02/19/17 06:15 02/19/17 06:15 (Norvasc) 5 mg BID PO 02/19/17 21:00 02/20/17 08:19 Miscellaneous Information ALL NURSING DEPARTME... UNSCH PRN .XX 02/19/17 15:03 02/20/17 15:02 Lactated Ringer's 1,000 ml @ 30 mls/hr Q24H PRN IV 02/20/17 05:45 02/23/17 05:44 (NS 500 ml Inj) 500 ml @ 30 mls/hr [id number] PRN IV 02/20/17 05:45 02/23/17 05:44 A/P Assessment and Plan Charcot B, with soft tissue infection L foot, likely with osteomyelitis- IV antibiotics Anemia, etiology unclear. S/P blood transfusion. Colnoscopy/EGD Saturday Elevated LFTs, etiology unclear Bacteremia due to gram-positive cocci Positive blood culture 2#4 Repeat blood culture and consult infectious disease specialist Sepsis: Present on admission UTI: IV ABX ; urine culture positive for gram-negative rods HYPOKALEMIA: REPLACE LYTES. Acute on chronic kidney disease Resolved Hyponatremia BMP pending this morning Diabetes type 2 Hold glipizide secondary to worsening renal functions Continue insulin sliding scale fingerstick blood glucose monitoring Hypertension INCR Norvasc Schizophrenia Continue Thiorizadine Anxiety - Lorazepam PRN. DVT prophylaxis: Bilateral SCDs Jack Rod MD Feb 20, 2017 11:18
[2017-02-20] MEDS ORDERED: POTASSIUM CHLORIDE 20 MEQ CONTROLLED RELEASE TAB PO ONE (11:45)
[2017-02-20] MEDS ORDERED: MAGNESIUM CITRATE SOLN 300 ML BTL PO ONE ×2 (12:00→18:00)
--- NOTE | 2017-02-20 13:50 | HHI.PR ---
Addendum to Inpatient Note Addendum Reason: Additional Documentation Additional Information Attempted to see patient today. Was in procedure. Continue same antibiotics. plans on bedside bone biopsy. Initially planned for today. I will be OOT from 02/21/17 to 02/24/2017. covering /Sat and covering this weekend. Kathryn Quintana MD Feb 20, 2017 13:50
[2017-02-20] MEDS: BISACODYL EC 5 MG TABEC PO SCH ×2 (15:47→21:00)
--- NOTE | 2017-02-20 16:16 | RADRPT ---
EXAM DATE/TIME: 02/20/2017 13:40 [facility] COMPARISON: FOOT RIGHT COMPLETE ([id number]), February 17, 2017, 20:50. INDICATIONS : Anemia. FLUORO TIME: 11.4 minutes IMAGE COUNT: 35 CONTRAST: 1. Polibar ACB Barium Sulfate (96% w/w) MEDICAL HISTORY : Diabetes mellitus type II. Hypertension. SURGICAL HISTORY : None. ENCOUNTER: Initial ACUITY: 4 - 6 days PAIN SCORE: Non-responsive. LOCATION: Bilateral abdomen FINDINGS: A balloon tip catheter was inserted into the rectum, and air and barium was instilled under fluorosco pic control. The patient remained on the table for over an hour in attempt to reflux barium all the w ay back to the cecum. The patient has an extremely redundant colon. Only a small amount of contrast c ould be refluxed into the cecum. Due to the extensive redundancy of the colon there is only very limited contrast opacification within the cecum. The mucosal contours of the transverse colon, splenic flexure, descending colon sigmoid colon and rec isidro were unremarkable. Again, there is only limited opacification of the cecum. There was some retained stool within the cec um. No definite obstructing mass was seen. CONCLUSION: We were only able to reflux a limited amount of barium into the cecum this was despite over a bag and a half of barium. This patient has an extremely redundant colon. No definite mucosal abnormality was identified but again, there is only partial visualization of the cecum. There was retained stool wit hin the cecum. Darrell Yanes MD on February 20, 2017 at 16:09 Board Certified Radiologist. This report was verified electronically.
[2017-02-20] MEDS: cloNIDine HCL 0.1 MG TAB PO PRN (16:21)
--- NOTE | 2017-02-20 19:06 | PD.POD ---
Subjective Podiatric Problems Patient is very well known to me due to approximately 6 admissions over the last 12 months. He has bilateral foot ulcers with known charcot. He is very against any type of amputation. There is very high suspicion for osteomyletis of the left cuboid though. Patient is agreeable to a bedside bone biopsy today. He denies any pain in the feet. His only complaint is rectal/abdomenal pain after todays barium enema. Pain score: 5 Past Med/Surg/Social History Past Medical History HEENT: DENIES HX OF: Cataracts, Glaucoma, Recurrent ear infections, Recurrent sinusitis, Other HEENT history Endocrine: REPORTS HX OF: Diabetes mellitus, DENIES HX OF: Graves disease, Hyperthyroidism, Hypothyroidism, Other endocrine history Respiratory: DENIES HX OF: Allergies/hay fever, Asthma, COPD, CPAP use, Sleep apnea, Other respiratory history Cardiovascular: REPORTS HX OF: Hypertension, DENIES HX OF: Abdominal aortic aneurysm, Angina, Atrial fibrillation, Cardiac arrhythmias, Coronary artery disease, Deep venous thrombosis, Heart failure, Heart valve disease, Hyperlipidemia, Myocardial infarction, Peripheral vascular dz, Other CV history Gastrointestinal: DENIES HX OF: Colitis, GERD, Irritable bowel syndrome, Liver disease, Pancreatitis, Peptic ulcer disease, Other GI history Genitourinary: DENIES HX OF: Chlamydia, Gonorrhea, Hemodialysis, Herpes genitalis, Human papillomavirus, Kidney disease, Kidney failure, Kidney stones, Past UTI, Peritoneal dialysis, Urinary incontinence, Other history Genitourinary - male: DENIES HX OF: Benign prost. hyperplasia, Erectile dysfunction, Prostatitis, Testicular problems, Undescended testicle Musculoskeletal: DENIES HX OF: Fibromyalgia, Fractures, Gout, Osteoarthritis, Osteoporosis, Rheumatoid arthritis, Other musculoskeletal hx Cancer/Hematology: DENIES HX OF: Anemia, Bladder Cancer, Blood cancer, Brain cancer, Breast cancer, Colorectal cancer, Endocrine cancer, Eye cancer, GI cancer, cancer, Kidney cancer, Leukemia, Liver cancer, Lung cancer, Lymphoma , Musculoskeletal cancer, Neurologic cancer, Oral cancer, Skin cancer, Stomach cancer, Thyroid cancer, Other cancer/hematology Cancer - male: DENIES HX OF: Prostate cancer, Testicular cancer Infectious disease: DENIES HX OF: AIDS, Chickenpox, Hepatitis, HIV, Measles, MRSA, Mumps, Polio, Positive PPD, Rheumatic fever, Rubella, Syphilis, Tuberculosis, Vanc-resistant enterococc, Other inf disease history Integumentary: DENIES HX OF: Acne, Eczema, Psoriasis, Other integumentary hx Neurologic: DENIES HX OF: ADHD, Autism, Dementia, Developmental delay, Headaches, Multiple sclerosis, Parkinson disease, Peripheral neuropathy, Restless leg syndrome, Seizures, Stroke, Transient ischemic attack, Other neurologic history Psychiatric: DENIES HX OF: Anorexia nervosa, Anxiety, Bipolar disorder, Bulimia , Depression, Schizophrenia, Other psychiatric history Genetic/metabolic: DENIES HX OF: Cystic fibrosis, Down syndrome, Other genetic history, Other metabolic history Disabilities: DENIES HX OF: Hearing deficit, Vision deficit, Hemiparesis, Paraplegia, Quadriplegia, Other disabilities Past Surgical History HEENT: DENIES HX OF: Cataract extraction, Dental surgery, Laryngectomy, Tonsillectomy, Other head surgery, Other eye surgery, Other ear surgery, Other nasal surgery, Other throat surgery Endocrine: DENIES HX OF: Parathyroidectomy, Thyroid surgery, Other endocrine surgery Respiratory: DENIES HX OF: Bronchoscopy, Lobectomy, Other chest surgery Cardiovascular: DENIES HX OF: Angiogram, Angioplasty, CABG surgery, Carotid endarterectomy, Coronary stent, Heart transplant, Pacemaker, Valve replacement, Other cardiac surgery Gastrointestinal: DENIES HX OF: Appendectomy, Cholecystectomy, Colectomy, subtotal, Colectomy, total, Gastric bypass, Hernia repair, Splenectomy, Other GI surgery Genitourinary: DENIES HX OF: Bladder surgery, Kidney stone extraction, Nephrectomy, Other surgery Genitourinary - male: DENIES HX OF: Prostatectomy, TURP, Vasectomy Musculoskeletal: DENIES HX OF: Joint replacement, Other musculoskeletal srg Integumentary: DENIES HX OF: Skin cancer removal, Other integumentary surg Neurologic: DENIES HX OF: Craniotomy, Spinal surgery, Other neurologic surgery Breast: DENIES HX OF: Breast biopsy, Lumpectomy, Mastectomy, bilateral, Mastectomy, left, Mastectomy, right, Other breast surgery Social History Smoking Status: Former Smoker Objective Vital Signs Vital Signs Date Time Temp Pulse Resp B/P Pulse Ox O2 Delivery O2 Flow Rate FiO2 02/20/17 16:00 66 17 189/80 96 02/20/17 12:42 95.4 61 16 178/79 95 02/20/17 12:18 99 21 02/20/17 11:02 55 18 156/67 99 02/20/17 10:52 49 18 132/65 100 02/20/17 10:42 97.6 49 18 136/61 100 02/20/17 09:10 02/20/17 08:00 96.1 58 17 165/74 96 02/20/17 06:27 95.4 57 20 165/74 95 02/20/17 00:00 97.2 58 18 153/68 92 02/19/17 20:00 95.3 61 17 157/71 94 Coded Allergies: Haldol (Verified Allergy, Severe, BLINDNESS, 11/08/16) Vancomycin (Verified Allergy, Severe, 11/08/16) Levaquin (Verified Allergy, Intermediate, Cramping, 11/08/16) Prolixin (Verified Allergy, Unknown, "[facility]", 11/08/16) *MDRO Multi-Drug Resistant Organism (Verified Adverse Reaction, Unknown, VRE, 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 Exam-Podiatry Remarks Bilateral rocker bottom appearance to the feet. Diminished protective sensation. Palpable pulses. Right foot plantar wound 4cm x 4cmx 1.0cm , granular base, hypertrophic border, serous drainage, no erythema. Left foot plantar wound 4cm x 4cmx 2.0cm , +probe to bone, granular base, hypertrophic border, serous drainage, no erythema. Assessment & Plan A/P 1) bilateral stage III/IV foot ulcerations 2) Charcot arthropathy 3) left foot OM -s/p bone biopsy at bedside- micro and path pending -wound care orders placed per nursing staff -ID is planning to use biopsy results to determine abx -please call if any questions or concerns Procedures Left foot was cleansed with betadine and then alcohol. Sterile drapes and under sheets were placed around the foot. A sterile hemostat was used to probed the wound. It easily probed to bone, which felt soft to touch. The wound was spread using the hemostat, in order to avoid contamination of the jam sheety needle. The jam sheety was used to obtain a bone biopsy of the left cuboid. The biopsy was divided into 2 pieces, one was sent to micro and one was sent to pathology. The wound was then lightly debrided ans dressed with a wet to dry dressing. The patient tolerated the procedure well and proper orders were place. Cecy Salvador DPM Feb 20, 2017 19:06
[2017-02-21] VITALS: BP 167/76; PULSE 61; RESP 18; TEMP 96.9; O2SAT 95
[2017-02-21 04:00] VITALS: BP 136/75; PULSE 81; RESP 18; TEMP 98.9; O2SAT 99
[2017-02-21] MEDS: INSULIN ASPART SUPPLEMENTAL SCALE SQ SCH ×4 (06:24→20:01)
[2017-02-21 07:39] LABS: AUTOMATED NEUTROPHIL # 6.3 TH/MM3 (1.8-7.7); BASOPHIL # 0.1 TH/MM3 (0-0.2); BASOPHIL % 0.7 % (0.0-2.0); EOSINOPHIL # 0.3 TH/MM3 (0-0.4); EOSINOPHIL % 2.7 % (0.0-4.0); HEMATOCRIT 27.4 % (39.0-51.0); HEMO FLAGS DIFF FINAL; LYMPH % 18.3 % (9.0-44.0); LYMPHOCYTE # 1.7 TH/MM3 (1.0-4.8); MEAN CELL VOLUME 83.4 FL (80.0-100.0); MEAN CORPUSCULAR HEMOGLOBIN 27.5 PG (27.0-34.0); MONO % 11.4 % (0.0-8.0); NEUT % 66.9 % (16.0-70.0); PLATELET COUNT 396 TH/MM3 (150-450); RED BLOOD COUNT 3.29 MIL/MM3 (4.50-5.90); RED CELL DISTRIBUTION WIDTH 16.1 % (11.6-17.2); WHITE BLOOD COUNT 9.5 TH/MM3 (4.0-11.0)
[2017-02-21 07:50] VITALS: BP 176/83; PULSE 60; RESP 18; TEMP 95.8; O2SAT 96
[2017-02-21 08:04] LABS: BICARBONATE 21.8 MEQ/L (21.0-32.0)
[2017-02-21] MEDS: THIORIDAZINE HCL 100 MG PO SCH (09:03)
[2017-02-21] MEDS: ASPIRIN EC 81 MG TABEC PO SCH (09:03)
[2017-02-21] MEDS: amLODIPine BESYLATE 5 MG TAB PO SCH ×2 (09:03→19:56)
[2017-02-21] MEDS: cefTRIAXone INJ 2,000 MG in SODIUM CHLORIDE 0.9% INJ 100 ML IV SCH (09:04)
[2017-02-21] MEDS: SODIUM CHLORIDE 0.9% FLUSH 10 ML FLUSH IV FLUSH SCH ×2 (09:09→19:56)
[2017-02-21] MEDS: cloNIDine HCL 0.1 MG TAB PO PRN (11:37)
[2017-02-21 12:03] VITALS: BP 171/81; PULSE 64; RESP 19; TEMP 95.8; O2SAT 96
--- NOTE | 2017-02-21 15:09 | HHI.FPPN ---
Subjective Remarks agitated c/o feet neurop very weak d/w RN Objective Vitals Vital Signs Date Time Temp Pulse Resp B/P Pulse Ox O2 Delivery O2 Flow Rate FiO2 02/21/17 12:03 95.8 64 19 171/81 96 02/21/17 07:50 95.8 60 18 176/83 96 02/21/17 04:00 98.9 81 18 136/75 99 02/21/17 00:00 96.9 61 18 167/76 95 02/20/17 20:16 96 21 02/20/17 16:00 66 17 189/80 96 I/O 02/20/17 02/20/17 02/20/17 02/21/17 02/21/17 02/21/17 07:00 15:00 23:00 07:00 15:00 23:00 Intake Total 400 ml 300 ml 100 ml Output Total 1400 ml 500 ml 925 ml Balance -1400 ml -100 ml 300 ml -825 ml IV Total 300 ml 100 ml Other 400 ml Output Urine Total 400 ml 500 ml 925 ml Stool Total 1000 ml # Voids 4 # Bowel Movements 0 Result Diagram: 02/21/17 0650 02/21/17 0650 Objective Remarks GENERAL: SKIN: Warm and dry. LARGE WOUNDS B SOLES, B CHARCOT HEAD: Atraumatic. Normocephalic. EYES: Pupils equal and round. No scleral icterus. No injection or drainage. ENT: No nasal bleeding or discharge. Mucous membranes pink and moist. NECK: Trachea midline. No JVD. CARDIOVASCULAR: Regular rate and rhythm. RESPIRATORY: No accessory muscle use. Clear to auscultation. Breath sounds equal bilaterally. GASTROINTESTINAL: Abdomen soft, non-tender, nondistended. Hepatic and splenic margins not palpable. MUSCULOSKELETAL: Extremities without clubbing, cyanosis, or edema. No obvious deformities. NEUROLOGICAL: Awake and alert. No obvious cranial nerve deficits. Motor grossly within normal limits. 2 out of 5 muscle strength in the arms and legs. Normal speech. PSYCHIATRIC: Appropriate mood and affect; insight and judgment normal. Medications and IVs Current Medications Medications (Trade) Dose Ordered Sig/Portia Route Start Time Stop Time Status Last Admin (NS Flush) 2 ml UNSCH PRN IV FLUSH 02/16/17 17:15 (NS Flush) 2 ml BID IV FLUSH 02/16/17 21:00 02/21/17 09:09 (Tylenol) 650 mg Q4H PRN PO 02/16/17 17:15 02/16/17 22:46 (Zofran Inj) 4 mg Q6H PRN IVP 02/16/17 17:15 (Tylenol) 650 mg Q6H PRN PO 02/16/17 17:15 02/20/17 08:20 (Narcan Inj) 0.4 mg UNSCH PRN IV 02/16/17 17:15 (Vasotec Inj) 1.25 mg Q6H PRN IV PUSH 02/16/17 17:15 02/19/17 17:10 (D50w (Vial) Inj) 50 ml UNSCH PRN IV 02/16/17 17:15 (Glucagon Inj) 1 mg UNSCH PRN OTHER 02/16/17 17:15 (Ecotrin Ec) 81 mg DAILY PO 02/17/17 09:00 02/21/17 09:03 (Ativan) 0.5 mg Q8H PRN PO 02/16/17 17:45 Thioridazine HCl 200 mg 200 mg DAILY PO 02/17/17 09:00 02/21/17 09:03 (Rocephin Inj/NS Inj) 100 ml @ 200 mls/hr Q24H IV 02/18/17 09:00 02/21/17 09:04 Clonidine 0.1 mg 0.1 mg Q6H PRN PO 02/18/17 11:00 02/21/17 11:37 (D5W-NS 1000 ml Inj) 1,000 ml @ 20 mls/hr Q24H IV 02/19/17 06:15 02/19/17 06:15 Amlodipine Besylate 5 mg 5 mg BID PO 02/19/17 21:00 02/21/17 09:03 Lactated Ringer's 1,000 ml @ 30 mls/hr Q24H PRN IV 02/20/17 05:45 02/23/17 05:44 (NS 500 ml Inj) 500 ml @ 30 mls/hr [id number] PRN IV 02/20/17 05:45 02/23/17 05:44 A/P Assessment and Plan Charcot B, with soft tissue infection L foot osteomyelitis, s/p i and d by dr Salvador- no IV antibiotics, followup bone bx. Anemia, etiology unclear. S/P blood transfusion. Colnoscopy/EGD Saturday Elevated LFTs, etiology unclear Bacteremia due to gram-positive cocci Positive blood culture 2#4 Repeat blood culture and consult infectious disease specialist Sepsis: Present on admission UTI: IV ABX ; urine culture positive for gram-negative rods HYPOKALEMIA: REPLACE LYTES. Acute on chronic kidney disease Resolved Hyponatremia -check BMP Diabetes type 2 Hold glipizide secondary to worsening renal functions Continue insulin sliding scale fingerstick blood glucose monitoring Hypertension INCREASED Norvasc Schizophrenia Continue Thiorizadine Anxiety - Lorazepam PRN. DVT prophylaxis: Bilateral SCDs Jack Rod MD Feb 21, 2017 15:09
[2017-02-21] MEDS: ACETAMINOPHEN 325 MG TAB PO PRN (15:53)
[2017-02-21 15:54] VITALS: BP 159/74; PULSE 58; RESP 19; TEMP 96.4; O2SAT 96
[2017-02-21] MEDS: LORazepam 0.5 MG TAB PO PRN (16:04)
--- NOTE | 2017-02-21 17:29 | HHI.GIFU ---
Subjective Remarks pt resting comfortably in bed. Denies pain, n/v. (Paradise Price) Objective Vitals I&O Vital Signs Date Time Temp Pulse Resp B/P Pulse Ox O2 Delivery O2 Flow Rate FiO2 02/21/17 15:54 96.4 58 19 159/74 96 02/21/17 12:03 95.8 64 19 171/81 96 02/21/17 07:50 95.8 60 18 176/83 96 02/21/17 04:00 98.9 81 18 136/75 99 02/21/17 00:00 96.9 61 18 167/76 95 02/20/17 20:16 96 21 I/O 02/20/17 02/20/17 02/20/17 02/21/17 02/21/17 02/21/17 07:00 15:00 23:00 07:00 15:00 23:00 Intake Total 400 ml 300 ml 100 ml Output Total 1400 ml 500 ml 925 ml Balance -1400 ml -100 ml 300 ml -825 ml IV Total 300 ml 100 ml Other 400 ml Output Urine Total 400 ml 500 ml 925 ml Stool Total 1000 ml # Voids 4 # Bowel Movements 0 Laboratory Laboratory Tests Test 02/21/17 06:50 White Blood Count 9.5 Red Blood Count 3.29 Hemoglobin 9.0 Hematocrit 27.4 Mean Corpuscular Volume 83.4 Mean Corpuscular Hemoglobin 27.5 Mean Corpuscular Hemoglobin 33.0 Concent Red Cell Distribution Width 16.1 Platelet Count 396 Mean Platelet Volume 8.7 Neutrophils (%) (Auto) 66.9 Lymphocytes (%) (Auto) 18.3 Monocytes (%) (Auto) 11.4 Eosinophils (%) (Auto) 2.7 Basophils (%) (Auto) 0.7 Neutrophils # (Auto) 6.3 Lymphocytes # (Auto) 1.7 Monocytes # (Auto) 1.1 Eosinophils # (Auto) 0.3 Basophils # (Auto) 0.1 CBC Comment DIFF FINAL Differential Comment Sodium Level 136 Potassium Level 4.0 Chloride Level 105 Carbon Dioxide Level 21.8 Anion Gap 9 Blood Urea Nitrogen 28 Creatinine 2.17 Estimat Glomerular Filtration 32 Rate Random Glucose 149 Calcium Level 8.7 Date/Time Procedure Status Source Growth 02/20/17 19:00 Gram Stain - Final Resulted Abscess Foot 02/20/17 19:00 Wound Culture - Preliminary Resulted Streptococcus Species 02/17/17 11:16 Aerobic Blood Culture - Preliminary Resulted Blood Peripheral NO GROWTH IN 4 DAYS 02/17/17 11:16 Anaerobic Blood Culture - Preliminary Resulted Blood Peripheral NO GROWTH IN 4 DAYS Physical Exam HEENT: EOMI; normocephalic; atraumatic; no jaundice. CHEST: unlabored CARDIAC: pulse +2 radial ABDOMEN: Soft, obese,, nontender; no hepatosplenomegaly, umbilical hernia EXTREMITIES: No clubbing, cyanosis, BLE edema worse on left, BLE clean bandages SKIN: Normal; no rash; no jaundice. SKIN DIVING TEACHER: No focal deficits; alert and oriented times three. (Paradise Price) Assessment and Plan Plan ASSESSMENT - Anemia, etiology unclear. - hgb 9.0. Iron significantly low at 15, TIBC 157. s /p EGD/colonoscopy 02-20-17--> food residue in stomach, ulcer, poor colon prep so colonoscopy incomplete. Subsequent Barium enema --> extremely redundant colon, no definite mucosal abnormality but only partial visualization of cecum, retained stool in cecum. No hematochezia, melena, or hematemesis. Negative FOBT. Patient reports past colonoscopy that was normal. - Elevated LFTs, etiology unclear. AST 617, ALT 311, Alk Phos 618. No abdominal pain. Denies alcohol use. Medication? hep panel neg. - Bacteremia, blood cultures positive (gram positive cocci). ID consulted. - UTI, IV Rocephin PLAN - colonoscopy 6 months -Monitor HH, transfuse as necessary -Monitor liver enzymes -Supportive care -Further recommendations to follow based on results of above Patient seen and examined by Dr. Rajput and myself and this note is written on his behalf. PLAN (Paradise Price) Physician Comments Seen and examined, plan as above, further recommendations to follow. (Wali Rajput MD) Paradise Price Feb 21, 2017 17:29 Wali Rajput MD Feb 21, 2017 23:57
--- NOTE | 2017-02-21 19:20 | HHI.IDPN ---
Subjective Subjective Remarks ID Xcover for Dr Quintana is a 56 y/o CM with PMHx of DM2 with neuropathy (denies known renal disease or eye involvement), Charcot foot disease, schizophrenia. With this background patient presented to the emergency department for evaluation of worsening shortness of breath, nonproductive cough. Patient reports no fevers but does endorse chills. Patient reports that he had a feeling of being congested. 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 Upon admission his hemoglobin was 7 fecal occult blood test was negative and during that admission his hemoglobin has dropped to 4 mg/dL and is currently undergoing 1 unit of PRBC. Chest x-ray has no cardiopulmonary disease. Sepsis workup was initiated on admission and blood cultures are positive for group A strep. His urine is positive for gram negatives. ID susceptibility pending. Infectious disease is consulted for evaluation and management of possible sepsis , group A strep bacteremia, Group B strep bactereis and possible foot infection. Sp bone bx yday from L foot and clx is growing strep spp No fevers No rash Antibiotics Ceftriaxone IV Clindamycin Lines Line sites with no evidence of infection. 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 Vital Signs Date Time Temp Pulse Resp B/P Pulse Ox O2 Delivery O2 Flow Rate FiO2 02/21/17 15:54 96.4 58 19 159/74 96 02/21/17 12:03 95.8 64 19 171/81 96 02/21/17 07:50 95.8 60 18 176/83 96 02/21/17 04:00 98.9 81 18 136/75 99 02/21/17 00:00 96.9 61 18 167/76 95 02/20/17 20:16 96 21 02/20/17 02/20/17 02/21/17 15:00 23:00 07:00 Intake Total 400 ml 300 ml Output Total 500 ml Balance -100 ml 300 ml IV Total 300 ml Other 400 ml Output Urine Total 500 ml # Voids 4 . Laboratory Tests Test 02/20/17 02/21/17 07:35 06:50 White Blood Count 9.7 TH/MM3 9.5 TH/MM3 Red Blood Count 3.25 MIL/MM3 3.29 MIL/MM3 Hemoglobin 8.9 GM/DL 9.0 GM/DL Hematocrit 27.1 % 27.4 % Mean Corpuscular Volume 83.2 FL 83.4 FL Mean Corpuscular Hemoglobin 27.3 PG 27.5 PG Mean Corpuscular Hemoglobin 32.8 % 33.0 % Concent Red Cell Distribution Width 15.9 % 16.1 % Platelet Count 343 TH/MM3 396 TH/MM3 Mean Platelet Volume 9.3 FL 8.7 FL Neutrophils (%) (Auto) 66.8 % 66.9 % Lymphocytes (%) (Auto) 17.6 % 18.3 % Monocytes (%) (Auto) 12.2 % 11.4 % Eosinophils (%) (Auto) 2.7 % 2.7 % Basophils (%) (Auto) 0.7 % 0.7 % Neutrophils # (Auto) 6.5 TH/MM3 6.3 TH/MM3 Lymphocytes # (Auto) 1.7 TH/MM3 1.7 TH/MM3 Monocytes # (Auto) 1.2 TH/MM3 1.1 TH/MM3 Eosinophils # (Auto) 0.3 TH/MM3 0.3 TH/MM3 Basophils # (Auto) 0.1 TH/MM3 0.1 TH/MM3 CBC Comment DIFF FINAL DIFF FINAL Differential Comment Laboratory Tests Test 02/20/17 02/21/17 07:35 06:50 Sodium Level 137 MEQ/L 136 MEQ/L Potassium Level 3.4 MEQ/L 4.0 MEQ/L Chloride Level 105 MEQ/L 105 MEQ/L Carbon Dioxide Level 23.7 MEQ/L 21.8 MEQ/L Anion Gap 8 MEQ/L 9 MEQ/L Blood Urea Nitrogen 35 MG/DL 28 MG/DL Creatinine 2.40 MG/DL 2.17 MG/DL Estimat Glomerular Filtration 28 ML/MIN 32 ML/MIN Rate Random Glucose 83 MG/DL 149 MG/DL Calcium Level 8.5 MG/DL 8.7 MG/DL Microbiology Date/Time Procedure Status Source Growth 02/20/17 19:00 Gram Stain - Final Resulted Abscess Foot 02/20/17 19:00 Wound Culture - Preliminary Resulted Streptococcus Species Imaging Last Impressions Barium Enema w/Air Contrast 02/20/17 0000 Signed Impressions: Service Date/Time: Monday, February 20, 2017 13:40 - CONCLUSION: We were only able to reflux a limited amount of barium into the cecum this was despite over a bag and a half of barium. This patient has an extremely redundant colon. No definite mucosal abnormality was identified but again, there is only partial visualization of the cecum. There was retained stool within the cecum. Darrell Yanes MD Tumor Localization 02/18/17 0000 Signed Impressions: Service Date/Time: Saturday, February 18, 2017 12:35 - CONCLUSION: Findings are highly suspicious for osteomyelitis in the left cuboid bone with sinus tract extending to cellulitis/ulcer plantar aspect of the left foot. No abnormal white cell accumulation to the osseous structures of the right foot. Randall Car MD Foot X-Ray 02/17/17 0000 Signed Impressions: Service Date/Time: Friday, February 17, 2017 20:48 - CONCLUSION: Charcot joint and extensive soft tissue swelling/emphysema. No fracture. Zaid Darden MD Chest X-Ray 02/16/17 1318 Signed Impressions: Service Date/Time: Thursday, February 16, 2017 13:32 - CONCLUSION: No acute cardiopulmonary disease identified. Ganga Luna MD Physical Exam GENERAL: Thin built, well-developed patient, in no apparent distress. SKIN: No rashes, ecchymoses or lesions. Cool and dry. HEAD: Atraumatic. Normocephalic. No temporal or scalp tenderness. EYES: Pupils equal round and reactive. Extraocular motions intact. No scleral icterus. No injection or drainage. ENT: Nose without bleeding, purulent drainage or septal hematoma. Throat without erythema, tonsillar hypertrophy or exudate. Uvula midline. Airway patent. NECK: Trachea midline. No JVD or lymphadenopathy. Supple, nontender, no meningeal signs. CARDIOVASCULAR: Regular rate and rhythm without murmurs, gallops, or rubs. RESPIRATORY: Clear to auscultation. Breath sounds equal bilaterally. No wheezes , rales, or rhonchi. GASTROINTESTINAL: Abdomen soft, non-tender, nondistended. No hepato-splenomegaly , or palpable masses. No guarding. MUSCULOSKELETAL: Bilateral LE charcot deformities with plantar ulcers. Bilateral feet in dressings. Toes well perfused No acsending cellulitis lymphangitis noted proximally to the dresiing Small serosag staining of L fot dressing NEUROLOGICAL: Awake and alert. Grossly non focal Psych: cooperative IV line sites with no e.o infection. Assessment & Plan Remarks Sepsis (fever, tachycardia, Strep bacteremia) present on admission Grp A Strep bacteremia: likley foot as source Proteus in urine: unreliable for symptomatology. Diabetic foot ulcer infected L foot osteo - clx is positive for strep ID/S P WBC scan abnormal concern for osteomyelitis. path P Charcot foot/DM Neuropathy. Acute on chronic renal failure (DM neuropathy as baseline). - improving slowly Chronic Hyponatremia likely chronic alcoholism related Schizophrenia, past psych admissions. Abnormal LFTs: sepsis or medication induced. Recs: dc ceftriaxone Start Unasyn; - that will cover also for his proteus UTI PNC will be a drug of choice if strep confirmed will fercho Podiatry re further tx options Patient has refused amputation or aggressive surgical management at this point. Kari Lund MD Feb 21, 2017 19:20
[2017-02-21] MEDS: AMPICILLIN-SULBACTAM INJ 3 GM in SODIUM CHLORIDE 0.9% INJ 100 ML IV SCH (19:56)
[2017-02-21 20:00] VITALS: BP 146/68; PULSE 57; RESP 20; TEMP 96.6; O2SAT 96
[2017-02-22] VITALS (8 sets, daily range): BP systolic 156–183; BP diastolic 71–85; PULSE 56–80; RESP 18–20; TEMP 95.2–97.4; O2SAT 95–98
[2017-02-22] MEDS: AMPICILLIN-SULBACTAM INJ 3 GM in SODIUM CHLORIDE 0.9% INJ 100 ML IV SCH ×4 (02:10→22:06)
[2017-02-22] MEDS: cloNIDine HCL 0.1 MG TAB PO PRN ×2 (05:22→16:07)
[2017-02-22] MEDS: INSULIN ASPART SUPPLEMENTAL SCALE SQ SCH ×4 (05:56→22:41)
[2017-02-22] MEDS: THIORIDAZINE HCL 100 MG PO SCH (09:03)
[2017-02-22] MEDS: ASPIRIN EC 81 MG TABEC PO SCH (09:04)
[2017-02-22] MEDS: amLODIPine BESYLATE 5 MG TAB PO SCH ×2 (09:04→22:42)
[2017-02-22] MEDS: SODIUM CHLORIDE 0.9% FLUSH 10 ML FLUSH IV FLUSH SCH ×2 (09:07→22:06)
--- NOTE | 2017-02-22 11:39 | HHI.FPPN ---
Subjective Remarks c/o leg edema c/o wound pain reqs norco d/w RN Objective Vitals Vital Signs Date Time Temp Pulse Resp B/P Pulse Ox O2 Delivery O2 Flow Rate FiO2 02/22/17 10:36 96 02/22/17 08:00 96.0 59 18 183/85 96 02/22/17 04:00 95.8 57 20 172/81 97 02/22/17 00:00 95.2 56 20 176/79 96 02/21/17 20:00 96.6 57 20 146/68 96 02/21/17 15:54 96.4 58 19 159/74 96 02/21/17 12:03 95.8 64 19 171/81 96 I/O 02/21/17 02/21/17 02/21/17 02/22/17 02/22/17 02/22/17 07:00 15:00 23:00 07:00 15:00 23:00 Intake Total 100 ml 240 ml 120 ml Output Total 925 ml 300 ml 1000 ml Balance -825 ml -60 ml -880 ml Intake Oral 240 ml 120 ml IV Total 100 ml Output Urine Total 925 ml 300 ml 1000 ml # Voids 4 0 # Bowel Movements 0 0 Result Diagram: 02/21/17 0650 02/21/17 0650 Objective Remarks GENERAL: SKIN: Warm and dry. LARGE WOUNDS B SOLES, B CHARCOT HEAD: Atraumatic. Normocephalic. EYES: Pupils equal and round. No scleral icterus. No injection or drainage. ENT: No nasal bleeding or discharge. Mucous membranes pink and moist. NECK: Trachea midline. No JVD. CARDIOVASCULAR: Regular rate and rhythm. RESPIRATORY: No accessory muscle use. Clear to auscultation. Breath sounds equal bilaterally. GASTROINTESTINAL: Abdomen soft, non-tender, nondistended. Hepatic and splenic margins not palpable. MUSCULOSKELETAL: Extremities without clubbing, cyanosis, or edema. No obvious deformities. NEUROLOGICAL: Awake and alert. No obvious cranial nerve deficits. Motor grossly within normal limits. 2 out of 5 muscle strength in the arms and legs. Normal speech. PSYCHIATRIC: Appropriate mood and affect; insight and judgment normal. Medications and IVs Current Medications Medications (Trade) Dose Ordered Sig/Portia Route Start Time Stop Time Status Last Admin (NS Flush) 2 ml UNSCH PRN IV FLUSH 02/16/17 17:15 (NS Flush) 2 ml BID IV FLUSH 02/16/17 21:00 02/22/17 09:07 (Tylenol) 650 mg Q4H PRN PO 02/16/17 17:15 02/16/17 22:46 (Zofran Inj) 4 mg Q6H PRN IVP 02/16/17 17:15 (Tylenol) 650 mg Q6H PRN PO 02/16/17 17:15 02/21/17 15:53 (Narcan Inj) 0.4 mg UNSCH PRN IV 02/16/17 17:15 (Vasotec Inj) 1.25 mg Q6H PRN IV PUSH 02/16/17 17:15 02/19/17 17:10 (D50w (Vial) Inj) 50 ml UNSCH PRN IV 02/16/17 17:15 (Glucagon Inj) 1 mg UNSCH PRN OTHER 02/16/17 17:15 (Ecotrin Ec) 81 mg DAILY PO 02/17/17 09:00 02/22/17 09:04 (Ativan) 0.5 mg Q8H PRN PO 02/16/17 17:45 02/21/17 16:04 (Mellaril) 200 mg DAILY PO 02/17/17 09:00 02/22/17 09:03 Clonidine 0.1 mg 0.1 mg Q6H PRN PO 02/18/17 11:00 02/22/17 05:22 (D5W-NS 1000 ml Inj) 1,000 ml @ 20 mls/hr Q24H IV 02/19/17 06:15 02/19/17 06:15 Amlodipine Besylate 5 mg 5 mg BID PO 02/19/17 21:00 02/22/17 09:04 Lactated Ringer's 1,000 ml @ 30 mls/hr Q24H PRN IV 02/20/17 05:45 02/23/17 05:44 Sodium Chloride 500 ml @ 30 mls/hr [id number] PRN IV 02/20/17 05:45 02/23/17 05:44 (Unasyn Inj/NS Inj) 100 ml @ 200 mls/hr Q6H IV 02/21/17 20:00 02/22/17 09:05 A/P Assessment and Plan Charcot Bilateral feet, with soft tissue infection L foot osteomyelitis, s/p i and d by dr Salvador- followup bone bx. Grp A Strep bacteremia: likley foot as source UTI, Proteus in urine Anemia, etiology unclear. S/P blood transfusion. Colnoscopy/EGD Saturday Elevated LFTs, etiology unclear Sepsis: Present on admission HYPOKALEMIA: REPLACE LYTES. Acute on chronic kidney disease Resolved Hyponatremia -check BMP Diabetes type 2 Hold glipizide secondary to worsening renal functions Continue insulin sliding scale fingerstick blood glucose monitoring Hypertension INCREASED Norvasc Schizophrenia Continue Thiorizadine Anxiety - Lorazepam PRN. DVT prophylaxis: Bilateral SCDs Jack Rod MD Feb 22, 2017 11:39
[2017-02-22] MEDS: ACETAMINOPHEN/HYDROcodone 325 MG/5 MG TAB PO PRN ×3 (13:12→22:07)
--- NOTE | 2017-02-22 14:26 | HHI.GIFU ---
Subjective Remarks Pt resting in bed, says he feels fine. (Paradise Price) Objective Vitals I&O Vital Signs Date Time Temp Pulse Resp B/P Pulse Ox O2 Delivery O2 Flow Rate FiO2 02/22/17 11:55 95.6 67 18 163/71 98 02/22/17 10:36 96 02/22/17 08:00 96.0 59 18 183/85 96 02/22/17 04:00 95.8 57 20 172/81 97 02/22/17 00:00 95.2 56 20 176/79 96 02/21/17 20:00 96.6 57 20 146/68 96 02/21/17 15:54 96.4 58 19 159/74 96 I/O 02/21/17 02/21/17 02/21/17 02/22/17 02/22/17 02/22/17 07:00 15:00 23:00 07:00 15:00 23:00 Intake Total 100 ml 240 ml 120 ml Output Total 925 ml 300 ml 1000 ml Balance -825 ml -60 ml -880 ml Intake Oral 240 ml 120 ml IV Total 100 ml Output Urine Total 925 ml 300 ml 1000 ml # Voids 4 0 # Bowel Movements 0 0 Laboratory Date/Time Procedure Status Source Growth 02/20/17 19:00 Gram Stain - Final Resulted Abscess Foot 02/20/17 19:00 Wound Culture - Preliminary Resulted Group D Enterococcus Physical Exam HEENT: EOMI; normocephalic; atraumatic; no jaundice. CHEST: unlabored CARDIAC: RRR +murmur ABDOMEN: Soft, obese,BS +, nontender; no hepatosplenomegaly, umbilical hernia EXTREMITIES: No clubbing, cyanosis, BLE edema worse on left, BLE clean bandages SKIN: Normal; no rash; no jaundice. 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 (Paradise Price) Assessment and Plan Plan ASSESSMENT - Anemia, etiology unclear. - hgb 9.0, stable. Iron significantly low at 15, TIBC 157. s/p EGD/colonoscopy 02-20-17--> food residue in stomach, ulcer, poor colon prep so colonoscopy incomplete. Subsequent Barium enema --> extremely redundant colon, no definite mucosal abnormality but only partial visualization of cecum, retained stool in cecum. No hematochezia, melena, or hematemesis. Negative FOBT. Patient reports past colonoscopy that was normal. - Elevated LFTs, etiology unclear. AST 617, ALT 311, Alk Phos 618. No abdominal pain. Denies alcohol use. Medication? hep panel neg. - Bacteremia, blood cultures positive (gram positive cocci). ID consulted. - UTI, IV Rocephin PLAN - colonoscopy 6 months -Monitor HH, transfuse as necessary -Monitor liver enzymes -Supportive care -Further recommendations to follow based on results of above Patient seen and examined by Dr. Rajput and myself and this note is written on his behalf. (Paradise Price) Physician Comments Stable from GI point of view, will sign off , please notify us if needed. ( Wali Rajput MD) Paradise Price Feb 22, 2017 14:26 Wali Rajput MD Feb 22, 2017 17:13
--- NOTE | 2017-02-22 15:27 | HHI.IDPN ---
Subjective Subjective Remarks ID Xcover for Dr Quintana Bone clx positive for GD Ent path still P repeat blood clx negative no new problems Antibiotics Unasyn Lines Line sites with no evidence of infection. 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 Vital Signs Date Time Temp Pulse Resp B/P Pulse Ox O2 Delivery O2 Flow Rate FiO2 02/22/17 11:55 95.6 67 18 163/71 98 02/22/17 10:36 96 02/22/17 08:00 96.0 59 18 183/85 96 02/22/17 04:00 95.8 57 20 172/81 97 02/22/17 00:00 95.2 56 20 176/79 96 02/21/17 20:00 96.6 57 20 146/68 96 02/21/17 15:54 96.4 58 19 159/74 96 02/21/17 02/21/17 02/22/17 15:00 23:00 07:00 Intake Total 100 ml 240 ml 120 ml Output Total 925 ml 300 ml 1000 ml Balance -825 ml -60 ml -880 ml Intake Oral 240 ml 120 ml IV Total 100 ml Output Urine Total 925 ml 300 ml 1000 ml # Voids 0 # Bowel Movements 0 0 . Laboratory Tests Test 02/21/17 06:50 White Blood Count 9.5 TH/MM3 Red Blood Count 3.29 MIL/MM3 Hemoglobin 9.0 GM/DL Hematocrit 27.4 % Mean Corpuscular Volume 83.4 FL Mean Corpuscular Hemoglobin 27.5 PG Mean Corpuscular Hemoglobin 33.0 % Concent Red Cell Distribution Width 16.1 % Platelet Count 396 TH/MM3 Mean Platelet Volume 8.7 FL Neutrophils (%) (Auto) 66.9 % Lymphocytes (%) (Auto) 18.3 % Monocytes (%) (Auto) 11.4 % Eosinophils (%) (Auto) 2.7 % Basophils (%) (Auto) 0.7 % Neutrophils # (Auto) 6.3 TH/MM3 Lymphocytes # (Auto) 1.7 TH/MM3 Monocytes # (Auto) 1.1 TH/MM3 Eosinophils # (Auto) 0.3 TH/MM3 Basophils # (Auto) 0.1 TH/MM3 CBC Comment DIFF FINAL Differential Comment Laboratory Tests Test 02/21/17 06:50 Sodium Level 136 MEQ/L Potassium Level 4.0 MEQ/L Chloride Level 105 MEQ/L Carbon Dioxide Level 21.8 MEQ/L Anion Gap 9 MEQ/L Blood Urea Nitrogen 28 MG/DL Creatinine 2.17 MG/DL Estimat Glomerular Filtration 32 ML/MIN Rate Random Glucose 149 MG/DL Calcium Level 8.7 MG/DL Microbiology Date/Time Procedure Status Source Growth 02/20/17 19:00 Gram Stain - Final Resulted Abscess Foot 02/20/17 19:00 Wound Culture - Preliminary Resulted Group D Enterococcus Imaging Last Impressions Barium Enema w/Air Contrast 02/20/17 0000 Signed Impressions: Service Date/Time: Monday, February 20, 2017 13:40 - CONCLUSION: We were only able to reflux a limited amount of barium into the cecum this was despite over a bag and a half of barium. This patient has an extremely redundant colon. No definite mucosal abnormality was identified but again, there is only partial visualization of the cecum. There was retained stool within the cecum. Darrell Yanes MD Tumor Localization 02/18/17 0000 Signed Impressions: Service Date/Time: Saturday, February 18, 2017 12:35 - CONCLUSION: Findings are highly suspicious for osteomyelitis in the left cuboid bone with sinus tract extending to cellulitis/ulcer plantar aspect of the left foot. No abnormal white cell accumulation to the osseous structures of the right foot. Randall Car MD Foot X-Ray 02/17/17 0000 Signed Impressions: Service Date/Time: Friday, February 17, 2017 20:48 - CONCLUSION: Charcot joint and extensive soft tissue swelling/emphysema. No fracture. Zaid Darden MD Chest X-Ray 02/16/17 1318 Signed Impressions: Service Date/Time: Thursday, February 16, 2017 13:32 - CONCLUSION: No acute cardiopulmonary disease identified. Ganga Luna MD Physical Exam GENERAL: Thin built, well-developed patient, in no apparent distress. SKIN: No rashes, ecchymoses or lesions. Cool and dry. HEAD: Atraumatic. Normocephalic. No temporal or scalp tenderness. EYES: Pupils equal round and reactive. Extraocular motions intact. No scleral icterus. No injection or drainage. ENT: Nose without bleeding, purulent drainage or septal hematoma. Throat without erythema, tonsillar hypertrophy or exudate. Uvula midline. Airway patent. NECK: Trachea midline. No JVD or lymphadenopathy. Supple, nontender, no meningeal signs. CARDIOVASCULAR: Regular rate and rhythm without murmurs, gallops, or rubs. RESPIRATORY: Clear to auscultation. Breath sounds equal bilaterally. No wheezes , rales, or rhonchi. GASTROINTESTINAL: Abdomen soft, non-tender, nondistended. No hepato-splenomegaly , or palpable masses. No guarding. MUSCULOSKELETAL: Bilateral LE charcot deformities with plantar ulcers. Bilateral feet in dressings. Toes well perfused No acsending cellulitis lymphangitis noted proximally to the dresiing Small serosag staining of b/l feet dressing NEUROLOGICAL: Awake and alert. Grossly non focal Psych: cooperative IV line sites with no e.o infection. Assessment & Plan Remarks Sepsis (fever, tachycardia, Strep bacteremia) present on admission Grp A Strep bacteremia: unclear source Proteus in urine: unreliable for symptomatology. Diabetic foot ulcer infected L foot osteo - clx is positive for GD Ent (gropu D enterococcus) - ID/S P WBC scan abnormal concern for osteomyelitis. path P Charcot foot/DM Neuropathy. Acute on chronic renal failure (DM neuropathy as baseline). - improving slowly Chronic Hyponatremia likely chronic alcoholism related Schizophrenia, past psych admissions. Abnormal LFTs: sepsis or medication induced. Recs: cont Unasyn; - that will cover also for his proteus UTI - ampicillin will be a drug of choice if isolate S - otherwise anticipate daptomycin/zyvox since pt with h/o adverse reaction to vancomycin "vancomycin affect my kidneys", but pt denies rash or other smx can not give final rec's untill sensitivity profile is availbale Anticipate IV abx followed by po repeat creatinine will d.w Podiatry re further tx options: call placed Patient has refused amputation or aggressive surgical management at this point. Kari Alvarado RN, MD Feb 22, 2017 15:27
[2017-02-22] MEDS: LORazepam 0.5 MG TAB PO PRN (16:07)
[2017-02-22 18:47] LABS: BICARBONATE 23.5 MEQ/L (21.0-32.0); POTASSIUM 4.3 MEQ/L (3.5-5.1)
[2017-02-23] VITALS: BP 159/56; PULSE 59; RESP 20; TEMP 97.7; O2SAT 96
[2017-02-23] MEDS: AMPICILLIN-SULBACTAM INJ 3 GM in SODIUM CHLORIDE 0.9% INJ 100 ML IV SCH ×4 (02:25→21:24)
[2017-02-23] MEDS: ACETAMINOPHEN/HYDROcodone 325 MG/5 MG TAB PO PRN ×4 (02:26→18:41)
[2017-02-23 04:00] VITALS: BP_SYST 159; BP_SYST 160; BP_DIAS 72; BP_DIAS 74; PULSE 59; RESP 20; TEMP 98.2; O2SAT 95
[2017-02-23] MEDS: INSULIN ASPART SUPPLEMENTAL SCALE SQ SCH ×4 (06:19→21:00)
[2017-02-23 08:07] VITALS: BP 151/70; PULSE 57; RESP 17; TEMP 96.8; O2SAT 97
[2017-02-23] MEDS: THIORIDAZINE HCL 100 MG PO SCH (09:10)
[2017-02-23] MEDS: ASPIRIN EC 81 MG TABEC PO SCH (09:10)
[2017-02-23] MEDS: amLODIPine BESYLATE 5 MG TAB PO SCH ×2 (09:11→21:23)
[2017-02-23] MEDS: SODIUM CHLORIDE 0.9% FLUSH 10 ML FLUSH IV FLUSH SCH ×2 (09:12→21:00)
[2017-02-23 10:10] LABS: AUTOMATED NEUTROPHIL # 5.7 TH/MM3 (1.8-7.7); BASOPHIL # 0.1 TH/MM3 (0-0.2); BASOPHIL % 0.6 % (0.0-2.0); EOSINOPHIL # 0.4 TH/MM3 (0-0.4); EOSINOPHIL % 4.4 % (0.0-4.0); HEMATOCRIT 30.6 % (39.0-51.0); LYMPHOCYTE # 2.4 TH/MM3 (1.0-4.8); MEAN CELL VOLUME 84.1 FL (80.0-100.0); MEAN CORPUSCULAR HEMOGLOBIN 29.2 PG (27.0-34.0); MEAN CORPUSCULAR HGB CONC 34.7 % (32.0-36.0); MONO % 11.1 % (0.0-8.0); NEUT % 58.9 % (16.0-70.0); PLATELET COUNT 497 TH/MM3 (150-450); RED BLOOD COUNT 3.63 MIL/MM3 (4.50-5.90); RED CELL DISTRIBUTION WIDTH 16.4 % (11.6-17.2); WHITE BLOOD COUNT 9.6 TH/MM3 (4.0-11.0)
[2017-02-23 10:20] LABS: HEMO FLAGS AUTO DIFF
[2017-02-23 10:41] LABS: POTASSIUM 4.7 MEQ/L (3.5-5.1)
[2017-02-23 11:06] LABS: BANDS 3 % (0-6); BASOPHILS 1 % (0-2); EOSINOPHILS 3 % (0-4); MYELOCYTES 1 % (0-0); NEUTROPHIL # MANUAL DIFF 6.3 TH/MM3 (1.8-7.7); POLYS (SEG NEUTROPHILS) 62 % (16-70); WBC DIFF SAMPLE 100
[2017-02-23 11:07] LABS: OVALOCYTES 1+ (NORMAL); PLATELET ESTIMATE SMEAR HIGH (NORMAL); PLATELET MORPHOLOGY NORMAL (NORMAL); SCAN/DIFF FINAL DIFF MANUAL
--- NOTE | 2017-02-23 11:12 | HHI.PR ---
Subjective Remarks Follow-up osteomyelitis/group a strep bacteremia/Charcot disease/ 02/23/17-patient seen and examined, afebrile, denies any lower extremity pains. Objective Vitals Vital Signs Date Time Temp Pulse Resp B/P Pulse Ox O2 Delivery O2 Flow Rate FiO2 02/23/17 08:07 96.8 57 17 151/70 97 02/23/17 04:00 98.2 59 20 159/72 95 160/74 02/23/17 00:00 97.7 59 20 159/56 96 02/22/17 20:00 97.4 60 20 156/72 95 02/22/17 16:15 96.4 80 18 182/77 97 02/22/17 16:05 96.4 80 18 182/77 97 02/22/17 11:55 95.6 67 18 163/71 98 I/O 02/22/17 02/22/17 02/22/17 02/23/17 02/23/17 02/23/17 07:00 15:00 23:00 07:00 15:00 23:00 Intake Total 120 ml 100 ml 1580 ml 100 ml Output Total 1000 ml 1550 ml 600 ml 620 ml Balance -880 ml 100 ml 30 ml -500 ml -620 ml Intake Oral 120 ml 1480 ml IV Total 100 ml 100 ml 100 ml Output Urine Total 1000 ml 1550 ml 600 ml 620 ml # Voids 0 1 # Bowel Movements 0 0 0 Result Diagram: 02/23/1793002/23/17930 Objective Remarks GENERAL: NAD SKIN: Warm and dry.Charcot foot, with chronic bilateral feet ulcers with dressing over HEAD: Normocephalic. EYES: No scleral icterus. No injection or drainage. NECK: Supple, trachea midline. No JVD or lymphadenopathy. CARDIOVASCULAR: Regular rate and rhythm without murmurs, gallops, or rubs. RESPIRATORY: Breath sounds equal bilaterally. No accessory muscle use. GASTROINTESTINAL: Abdomen soft, non-tender, nondistended. MUSCULOSKELETAL: No cyanosis, or edema. BACK: Nontender without obvious deformity. No CVA tenderness. A/P Problem List: (1) Bacteremia due to Gram-positive bacteria ICD Code: R78.81 Status: Acute (2) Symptomatic anemia ICD Code: D64.9 Status: Acute (3) Type 2 diabetes mellitus with foot ulcer ICD Code: E11.621 Status: Chronic (4) Charcot foot due to diabetes mellitus ICD Code: E11.610 Status: Acute (5) Ulcer of right lower extremity ICD Code: L97.919 Status: Chronic (6) Ulcer of left foot due to type 2 diabetes mellitus ICD Code: E11.621 Status: Acute (7) Schizophrenia ICD Code: F20.9 Status: Chronic (8) Hyponatremia ICD Code: E87.1 Status: Acute (9) Acute renal failure superimposed on stage 3 chronic kidney disease ICD Code: N17.9 Status: Acute (10) UTI (urinary tract infection) ICD Code: N39.0 Status: Acute (11) Sepsis ICD Code: A41.9 Status: Resolved Assessment and Plan 56-year-old man with Sepsis Group A strep bacteremia Left foot osteomyelitis Diabetic foot ulcer and infected Currently on Unasyn Management per infectious disease specialist as well as podiatry Awaiting for biopsy sensitivity Symptomatic anemia Normochromic normocytic anemia Negative FOBT on admission Monitor H&H Gastroenterology sign off Acute on chronic kidney disease Resolved Hyponatremia BMP pending this morning Diabetes type 2 Hold glipizide secondary to worsening renal functions Continue insulin sliding scale fingerstick blood glucose monitoring Charcot foot due to diabetes mellitus Patient is refusing amputation Hypertension Continue Norvasc Schizophrenia Continue Thiorizadine Anxiety - Lorazepam PRN. DVT prophylaxis: Bilateral Zaid Murphy MD Feb 23, 2017 11:12 DVT prophylaxis: Bilateral Zaid Murphy MD Feb 23, 2017 11:12
[2017-02-23 11:42] VITALS: BP 156/70; PULSE 59; RESP 18; TEMP 96.5; O2SAT 96
--- NOTE | 2017-02-23 14:10 | HHI.IDPN ---
Subjective Subjective Remarks ID [id number] for Dr Quintana Bone clx positive for GD Ent, GBS and anaerobs Dr Dr Salvador apparently pt is refusing any kind of surgical interventions involving amputaitons andbone resections path + for acute osteo repeat blood clx negative no new problems Antibiotics Unasyn Lines Line sites with no evidence of infection. 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 Vital Signs Date Time Temp Pulse Resp B/P Pulse Ox O2 Delivery O2 Flow Rate FiO2 02/23/17 11:42 96.5 59 18 156/70 96 02/23/17 08:07 96.8 57 17 151/70 97 02/23/17 04:00 98.2 59 20 159/72 95 160/74 02/23/17 00:00 97.7 59 20 159/56 96 02/22/17 20:00 97.4 60 20 156/72 95 02/22/17 16:15 96.4 80 18 182/77 97 02/22/17 16:05 96.4 80 18 182/77 97 02/22/17 02/22/17 02/23/17 15:00 23:00 07:00 Intake Total 100 ml 1580 ml 100 ml Output Total 1550 ml 600 ml Balance 100 ml 30 ml -500 ml Intake Oral 1480 ml IV Total 100 ml 100 ml 100 ml Output Urine Total 1550 ml 600 ml # Voids 1 # Bowel Movements 0 0 . Laboratory Tests Test 02/23/17 09:31 White Blood Count 9.6 TH/MM3 Red Blood Count 3.63 MIL/MM3 Hemoglobin 10.6 GM/DL Hematocrit 30.6 % Mean Corpuscular Volume 84.1 FL Mean Corpuscular Hemoglobin 29.2 PG Mean Corpuscular Hemoglobin 34.7 % Concent Red Cell Distribution Width 16.4 % Platelet Count 497 TH/MM3 Mean Platelet Volume 8.2 FL Neutrophils (%) (Auto) 58.9 % Lymphocytes (%) (Auto) 25.0 % Monocytes (%) (Auto) 11.1 % Eosinophils (%) (Auto) 4.4 % Basophils (%) (Auto) 0.6 % Neutrophils # (Auto) 5.7 TH/MM3 Lymphocytes # (Auto) 2.4 TH/MM3 Monocytes # (Auto) 1.1 TH/MM3 Eosinophils # (Auto) 0.4 TH/MM3 Basophils # (Auto) 0.1 TH/MM3 CBC Comment AUTO DIFF Differential Total Cells 100 Counted Neutrophils % (Manual) 62 % Band Neutrophils % 3 % Lymphocytes % 24 % Monocytes % 6 % Eosinophils % 3 % Basophils % 1 % Neutrophils # (Manual) 6.3 TH/MM3 Myelocytes 1 % Differential Comment FINAL DIFF MANUAL Platelet Estimate HIGH Platelet Morphology Comment NORMAL Ovalocytes 1+ Laboratory Tests Test 02/22/17 02/23/17 17:51 09:31 Sodium Level 135 MEQ/L 138 MEQ/L Potassium Level 4.3 MEQ/L 4.7 MEQ/L Chloride Level 103 MEQ/L 105 MEQ/L Carbon Dioxide Level 23.5 MEQ/L 25.0 MEQ/L Anion Gap 9 MEQ/L 8 MEQ/L Blood Urea Nitrogen 20 MG/DL 22 MG/DL Creatinine 2.10 MG/DL 1.94 MG/DL Estimat Glomerular Filtration 33 ML/MIN 36 ML/MIN Rate Random Glucose 213 MG/DL 110 MG/DL Calcium Level 8.5 MG/DL 9.1 MG/DL Microbiology Date/Time Procedure Status Source Growth 02/20/17 19:00 Gram Stain - Final Complete Abscess Foot 02/20/17 19:00 Wound Culture - Final Complete Enterococcus Faecalis Group B Beta Strep Mixed Anaerobes Imaging Last Impressions Barium Enema w/Air Contrast 02/20/17 0000 Signed Impressions: Service Date/Time: Monday, February 20, 2017 13:40 - CONCLUSION: We were only able to reflux a limited amount of barium into the cecum this was despite over a bag and a half of barium. This patient has an extremely redundant colon. No definite mucosal abnormality was identified but again, there is only partial visualization of the cecum. There was retained stool within the cecum. Darrell Yanes MD Tumor Localization 02/18/17 0000 Signed Impressions: Service Date/Time: Saturday, February 18, 2017 12:35 - CONCLUSION: Findings are highly suspicious for osteomyelitis in the left cuboid bone with sinus tract extending to cellulitis/ulcer plantar aspect of the left foot. No abnormal white cell accumulation to the osseous structures of the right foot. Randall Car MD Foot X-Ray 02/17/17 0000 Signed Impressions: Service Date/Time: Friday, February 17, 2017 20:48 - CONCLUSION: Charcot joint and extensive soft tissue swelling/emphysema. No fracture. Zaid Darden MD Chest X-Ray 02/16/17 1318 Signed Impressions: Service Date/Time: Thursday, February 16, 2017 13:32 - CONCLUSION: No acute cardiopulmonary disease identified. Ganga Luna MD Physical Exam GENERAL: Thin built, well-developed patient, in no apparent distress. SKIN: No rashes, ecchymoses or lesions. Cool and dry. HEAD: Atraumatic. Normocephalic. No temporal or scalp tenderness. EYES: Pupils equal round and reactive. Extraocular motions intact. No scleral icterus. No injection or drainage. ENT: Nose without bleeding, purulent drainage or septal hematoma. Throat without erythema, tonsillar hypertrophy or exudate. Uvula midline. Airway patent. NECK: Trachea midline. No JVD or lymphadenopathy. Supple, nontender, no meningeal signs. CARDIOVASCULAR: Regular rate and rhythm without murmurs, gallops, or rubs. RESPIRATORY: Clear to auscultation. Breath sounds equal bilaterally. No wheezes , rales, or rhonchi. GASTROINTESTINAL: Abdomen soft, non-tender, nondistended. No hepato-splenomegaly , or palpable masses. No guarding. MUSCULOSKELETAL: Bilateral LE charcot deformities with plantar ulcers. Bilateral feet in dressings. Toes well perfused R foot with 3 cm granulating clean based mid plantar uncer with serosang dc L foot with 5 cm large deep mid plantar ulcer surrounded by callus with serosang odorless dc some edema present and loss of anatomical landmarks NEUROLOGICAL: Awake and alert. Grossly non focal Psych: cooperative IV line sites with no e.o infection. Assessment & Plan Remarks Sepsis (fever, tachycardia, Strep bacteremia) present on admission Grp A Strep bacteremia: unclear source Proteus in urine: unreliable for symptomatology. Diabetic foot ulcer infected L foot osteo - clx is positive for GD Ent (gropu D enterococcus) - guy S - along with mixed anaeorbs and GBS WBC scan abnormal concern for osteomyelitis. path P Charcot foot/DM Neuropathy. Acute on chronic renal failure (DM neuropathy as baseline). - improving slowly Chronic Hyponatremia likely chronic alcoholism related Schizophrenia, past psych admissions. Abnormal LFTs: sepsis or medication induced. Recs: cont Unasyn; anticipate 6 weeks of IV followed by months of oral rx overall prognosis for foot salvage is poor dDonw Podiatry Patient has refused amputation or aggressive surgical management at this point. Kari Alvarado RN, MD Feb 23, 2017 14:10
[2017-02-23] MEDS: BACITRACIN TOP OINT 15 GM TUBE TOPICAL SCH ×2 (14:13→21:26)
[2017-02-23 16:39] VITALS: BP 160/70; PULSE 68; RESP 19; TEMP 96.4; O2SAT 98
[2017-02-23 20:09] VITALS: BP 136/62; PULSE 63; RESP 18; TEMP 97.4; O2SAT 95
[2017-02-24 00:19] VITALS: BP 175/74; PULSE 62; RESP 20; TEMP 97; O2SAT 94
[2017-02-24] MEDS: AMPICILLIN-SULBACTAM INJ 3 GM in SODIUM CHLORIDE 0.9% INJ 100 ML IV SCH ×4 (02:27→21:25)
[2017-02-24 04:00] VITALS: BP 177/72; PULSE 63; RESP 20; TEMP 97.6; O2SAT 95
[2017-02-24] MEDS: INSULIN ASPART SUPPLEMENTAL SCALE SQ SCH ×4 (06:31→21:21)
[2017-02-24 08:29] VITALS: BP 184/84; PULSE 71; RESP 18; TEMP 97.5; O2SAT 96
[2017-02-24] MEDS: THIORIDAZINE HCL 100 MG PO SCH (09:15)
[2017-02-24] MEDS: amLODIPine BESYLATE 5 MG TAB PO SCH ×2 (09:15→21:19)
[2017-02-24] MEDS: SODIUM CHLORIDE 0.9% FLUSH 10 ML FLUSH IV FLUSH SCH ×2 (09:15→21:25)
[2017-02-24] MEDS: ASPIRIN EC 81 MG TABEC PO SCH (09:15)
--- NOTE | 2017-02-24 09:56 | HHI.FF ---
Infusion Therapy Location of Infusion Therapy: [facility] Infusion Therapy Order Patient Information Patient Weight 94.8 kg Diagnosis: Diagnosis DFI, osteomyelitis Coded Allergies: Haldol (Verified Allergy, Severe, BLINDNESS, 11/08/16) Vancomycin (Verified Allergy, Severe, 11/08/16) Levaquin (Verified Allergy, Intermediate, Cramping, 11/08/16) Prolixin (Verified Allergy, Unknown, "PARKINSONIAN SHACKS", 11/08/16) *MDRO Multi-Drug Resistant Organism (Verified Adverse Reaction, Unknown, VRE, 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 Administer Medication Unasyn 3 gm IV q 6 hrs Start Treatment: Feb 24, 2017 Stop Treatment: Apr 07, 2017 Additional Information Venous access: PICC Line Additional Instructions [x] Peripheral flush and dressing changes per protocol [x] Implanted port and central back line cook: * Implanted port: 10 ml Normal Saline followed by 5 ml Heparin 100 units/ml Heparin flush after each use and monthly to maintain. [] May leave port accessed during therapy. [] May leave peripheral site accessed for duration of therapy. [x] If patient has SOB or respiratory distress, check oxygen saturation. If less than 90% or clinical signs of respiratory distress, administer oxygen at 2 L/min. via nasal cannula and notify physician. [x] Anaphylaxis/Reaction orders: * Stop infusion. * Keep IV line open with saline flush. * Notify physician. * Monitor vital signs every 15 minutes until symptoms resolve. * Check Oxygen saturation; Oxygen at 2 L/min. via nasal cannula if less than 90% or clinical signs of respiratory distress. * Administer diphenhydramine (Benadryl) 25 mg IV STAT, (unless patient has received as pre-med). May repeat once, if necessary. * Solu-Cortef 250 mg IVP over 30-60 seconds, use 100 mg vials for each dissolution. * Epinephrine (1mg/1 ml) 0.3 mg subcutaneously or IVP now with any signs of respiratory distress. * Check with physician for new additional pre-med orders if patient is re- challenged or re-treated. [x] May remove PICC line when treatment complete, after confirming with Physician. [x] If the patient is admitted to the hospital, the ED, or transferred via [facility] , complete transfer form including medication reconciliation order sheet. Laboratory Tests Weekly Labs: CBC w/diff, Creatinine, LFT's (Hepatic function test), SED Rate Kari Lund MD Feb 24, 2017 09:56
--- NOTE | 2017-02-24 09:58 | HHI.PR ---
Addendum to Inpatient Note Additional Information pt can be discharged from ID standpoint He needs 6 weeks of IV abx, followed by monthes of PO (AUgmentin) untill clinical resolution under supervision of transit bus driver Poor prognosis for salvaging foot F/U with transit bus driver Kari Lund MD Feb 24, 2017 09:58
[2017-02-24] MEDS ORDERED: UNAS3INJ IV (10:00)
--- NOTE | 2017-02-24 10:01 | HHI.PR ---
Addendum to Inpatient Note Addendum Reason: Additional Documentation Additional Information Pts labs to be monitored weeklyu: CBC creatinine LFTs ESR every 2-3 weeks OK to be discharged, OPAT forms filled out Kari Lund MD Feb 24, 2017 10:01
--- NOTE | 2017-02-24 10:47 | HHI.PR ---
Subjective Remarks Follow-up osteomyelitis/group a strep bacteremia/Charcot disease/ 02/23/17-patient seen and examined, afebrile, denies any lower extremity pains. 02/24/17-patient seen and examined; no acute event overnight. Patient is still refusing amputation of his lower extremity. Case discussed with Dr. Ashely Pierce Objective Vitals Vital Signs Date Time Temp Pulse Resp B/P Pulse Ox O2 Delivery O2 Flow Rate FiO2 02/24/17 08:29 97.5 71 18 184/84 96 02/24/17 04:00 97.6 63 20 177/72 95 02/24/17 00:19 97.0 62 20 175/74 94 02/23/17 20:09 97.4 63 18 136/62 95 02/23/17 19:45 18 02/23/17 16:39 96.4 68 19 160/70 98 02/23/17 11:42 96.5 59 18 156/70 96 I/O 02/23/17 02/23/17 02/23/17 02/24/17 02/24/17 02/24/17 07:00 15:00 23:00 07:00 15:00 23:00 Intake Total 100 ml 1214 ml Output Total 600 ml 2520 ml 500 ml Balance -500 ml -2520 ml 714 ml IV Total 100 ml Tube Feeding 1154 ml Other 60 ml Output Urine Total 600 ml 2520 ml 500 ml # Voids 0 # Bowel Movements 0 Result Diagram: 02/23/1793002/23/1731 Objective Remarks GENERAL: NAD SKIN: Warm and dry.Charcot foot, with chronic bilateral feet ulcers with dressing over HEAD: Normocephalic. EYES: No scleral icterus. No injection or drainage. NECK: Supple, trachea midline. No JVD or lymphadenopathy. CARDIOVASCULAR: Regular rate and rhythm without murmurs, gallops, or rubs. RESPIRATORY: Breath sounds equal bilaterally. No accessory muscle use. GASTROINTESTINAL: Abdomen soft, non-tender, nondistended. MUSCULOSKELETAL: No cyanosis, or edema. BACK: Nontender without obvious deformity. No CVA tenderness. A/P Problem List: (1) Bacteremia due to Gram-positive bacteria ICD Code: R78.81 Status: Acute (2) Symptomatic anemia ICD Code: D64.9 Status: Acute (3) Type 2 diabetes mellitus with foot ulcer ICD Code: E11.621 Status: Chronic (4) Charcot foot due to diabetes mellitus ICD Code: E11.610 Status: Acute (5) Ulcer of right lower extremity ICD Code: L97.919 Status: Chronic (6) Ulcer of left foot due to type 2 diabetes mellitus ICD Code: E11.621 Status: Acute (7) Schizophrenia ICD Code: F20.9 Status: Chronic (8) Hyponatremia ICD Code: E87.1 Status: Acute (9) Acute renal failure superimposed on stage 3 chronic kidney disease ICD Code: N17.9 Status: Acute (10) UTI (urinary tract infection) ICD Code: N39.0 Status: Acute (11) Sepsis ICD Code: A41.9 Status: Resolved Assessment and Plan 56-year-old man with Sepsis Group A strep bacteremia Left foot osteomyelitis Diabetic foot ulcer and infected Currently on Unasyn-he will need 6 weeks total of IV Unasyn followed by months of PO (Augmentin) until clinical resolution under supervision of monorail charger operator per infectious disease doctor, Dr. Ashely Pierce Management per infectious disease specialist as well as podiatry Symptomatic anemia Normochromic normocytic anemia Negative FOBT on admission Monitor H&H Gastroenterology sign off Acute on chronic kidney disease Resolved Hyponatremia-resolved Diabetes type 2 Hold glipizide secondary to worsening renal functions Continue insulin sliding scale fingerstick blood glucose monitoring Charcot foot due to diabetes mellitus Patient is refusing amputation Hypertension Continue Norvasc Schizophrenia Continue Thiorizadine Anxiety - Lorazepam PRN. DVT prophylaxis: Bilateral SCDs Discharge Planning Likely discharge 02/25/17 Zaid Metcalf MD Feb 24, 2017 10:47
[2017-02-24] MEDS: ACETAMINOPHEN/HYDROcodone 325 MG/5 MG TAB PO PRN ×2 (11:05→18:16)
[2017-02-24 12:01] VITALS: BP 160/72; PULSE 70; RESP 19; TEMP 96.8; O2SAT 95
[2017-02-24] MEDS: BACITRACIN TOP OINT 15 GM TUBE TOPICAL SCH ×2 (15:46→21:00)
[2017-02-24 17:00] VITALS: BP 173/79; PULSE 70; RESP 18; TEMP 97.4; O2SAT 96
[2017-02-24 20:27] VITALS: BP 130/61; PULSE 72; RESP 20; TEMP 97; O2SAT 95
[2017-02-25] VITALS: BP 152/67; PULSE 68; RESP 20; TEMP 96.7; O2SAT 93
[2017-02-25] MEDS: AMPICILLIN-SULBACTAM INJ 3 GM in SODIUM CHLORIDE 0.9% INJ 100 ML IV SCH ×3 (02:06→15:21)
[2017-02-25 04:00] VITALS: BP 168/73; PULSE 63; RESP 20; TEMP 97.3; O2SAT 95
[2017-02-25 04:50] VITALS: BP 165/73; PULSE 68; RESP 20; TEMP 97.3; O2SAT 96
[2017-02-25] MEDS: INSULIN ASPART SUPPLEMENTAL SCALE SQ SCH ×3 (06:17→16:00)
--- NOTE | 2017-02-25 07:19 | HHI.FPPN ---
Objective Vitals Vital Signs Date Time Temp Pulse Resp B/P Pulse Ox O2 Delivery O2 Flow Rate FiO2 02/25/17 04:50 97.3 68 20 165/73 96 02/25/17 04:00 97.3 63 20 168/73 95 02/25/17 00:00 96.7 68 20 152/67 93 02/24/17 20:27 97.0 72 20 130/61 95 02/24/17 19:57 18 02/24/17 17:00 97.4 70 18 173/79 96 02/24/17 12:01 96.8 70 19 160/72 95 02/24/17 08:29 97.5 71 18 184/84 96 I/O 02/24/17 02/24/17 02/24/17 02/25/17 02/25/17 02/25/17 07:00 15:00 23:00 07:00 15:00 23:00 Intake Total 1214 ml 460 ml 480 ml Output Total 500 ml 280 ml 400 ml 700 ml Balance 714 ml 180 ml -400 ml -220 ml Intake Oral 460 ml 480 ml Tube Feeding 1154 ml Other 60 ml Output Urine Total 500 ml 280 ml 400 ml 700 ml # Voids 3 # Bowel Movements 1 Result Diagram: 02/23/1793002/23/17930 Objective Remarks GENERAL: SKIN: Warm and dry. LARGE WOUNDS B SOLES, B CHARCOT HEAD: Atraumatic. Normocephalic. EYES: Pupils equal and round. No scleral icterus. No injection or drainage. ENT: No nasal bleeding or discharge. Mucous membranes pink and moist. NECK: Trachea midline. No JVD. CARDIOVASCULAR: Regular rate and rhythm. RESPIRATORY: No accessory muscle use. Clear to auscultation. Breath sounds equal bilaterally. GASTROINTESTINAL: Abdomen soft, non-tender, nondistended. Hepatic and splenic margins not palpable. MUSCULOSKELETAL: Extremities without clubbing, cyanosis, or edema. No obvious deformities. NEUROLOGICAL: Awake and alert. No obvious cranial nerve deficits. Motor grossly within normal limits. 2 out of 5 muscle strength in the arms and legs. Normal speech. PSYCHIATRIC: Appropriate mood and affect; insight and judgment normal. Jack Rod MD Feb 25, 2017 07:19 Charcot Bilateral feet, with soft tissue infection L foot osteomyelitis, s/p i and d by dr Salvador- followup bone bx. Grp A Strep bacteremia: likley foot as source UTI, Proteus in urine Anemia, etiology unclear. S/P blood transfusion. Colnoscopy/EGD Saturday Elevated LFTs, etiology unclear Sepsis: Present on admission HYPOKALEMIA: REPLACE LYTES. Acute on chronic kidney disease Resolved Hyponatremia -check BMP Diabetes type 2 Hold glipizide secondary to worsening renal functions Continue insulin sliding scale fingerstick blood glucose monitoring Hypertension INCREASED Norvasc Schizophrenia Continue Thiorizadine Anxiety - Lorazepam PRN. DVT prophylaxis: Bilateral SCDs Jack Rod MD Feb 25, 2017 07:19
[2017-02-25 07:45] VITALS: BP 162/72; PULSE 70; RESP 18; TEMP 96.4; O2SAT 95
[2017-02-25] MEDS: amLODIPine BESYLATE 5 MG TAB PO SCH (09:01)
[2017-02-25] MEDS: ASPIRIN EC 81 MG TABEC PO SCH (09:01)
[2017-02-25] MEDS: THIORIDAZINE HCL 100 MG PO SCH (09:01)
[2017-02-25] MEDS: BACITRACIN TOP OINT 15 GM TUBE TOPICAL SCH (09:01)
[2017-02-25] MEDS: SODIUM CHLORIDE 0.9% FLUSH 10 ML FLUSH IV FLUSH SCH (09:02)
--- NOTE | 2017-02-25 09:04 | HHI.DCPOC ---
Discharge Care Plan Diagnosis: (1) Peripheral neuropathy (2) Renal insufficiency (3) Hypertension (4) Obesity (5) ETOH abuse (6) Chronic disease anemia (7) Osteomyelitis of ankle or foot (8) Abscess of right foot (9) Cellulitis of left foot (10) Noncompliance (11) Impaired mobility and activities of daily living (12) Other specified diabetes mellitus with diabetic peripheral angiopathy without gangrene (13) Uncontrolled diabetes mellitus (14) Morbid obesity with BMI of 45.0-49.9, adult (15) Chronic schizophrenia (16) Acute blood loss anemia (17) Infected stasis ulcer (18) Charcot foot due to diabetes mellitus (19) DM (diabetes mellitus) (20) Bacteremia due to Gram-positive bacteria (21) Sepsis (22) Open wound of left foot Goals to Promote Your Health * To prevent worsening of your condition and complications * To maintain your health at the optimal level Directions to Meet Your Goals Take your medications as prescribed Follow your dietary instruction Follow activity as directed Keep your appointments as scheduled Take your immunizations and boosters as scheduled If your symptoms worsen call your PCP, if no PCP go to Urgent Care Center or Emergency Room Smoking is Dangerous to Your Health. Avoid second hand smoke Call the 24-hour hour crisis hotline for domestic abuse at Jack Rod MD Feb 25, 2017 09:04
--- NOTE | 2017-02-25 09:05 | HHI.DS ---
Discharge Summary Admission Date Feb 16, 2017 at 15:42 Discharge Date: Feb 25, 2017 Admitting Diagnosis Sepsis, symptomatic anemia (1) Bacteremia due to Gram-positive bacteria (2) Symptomatic anemia (3) Type 2 diabetes mellitus with foot ulcer (4) Charcot foot due to diabetes mellitus (5) Ulcer of right lower extremity (6) Ulcer of left foot due to type 2 diabetes mellitus (7) Schizophrenia (8) Hyponatremia (9) Acute renal failure superimposed on stage 3 chronic kidney disease (10) UTI (urinary tract infection) (11) Sepsis CBC/BMP: 02/23/17 0931 02/23/17 0931 Significant Findings Laboratory Tests Test 02/22/17 02/23/17 17:51 09:31 Sodium Level 135 MEQ/L (136-145) Blood Urea Nitrogen 20 MG/DL (7-18) 22 MG/DL (7-18) Creatinine 2.10 MG/DL 1.94 MG/DL (0.60-1.30) (0.60-1.30) Estimat Glomerular Filtration 33 ML/MIN (>89) 36 ML/MIN (>89) Rate Random Glucose 213 MG/DL 110 MG/DL (74-106) (74-106) Red Blood Count 3.63 MIL/MM3 (4.50-5.90) Hemoglobin 10.6 GM/DL (13.0-17.0) Hematocrit 30.6 % (39.0-51.0) Platelet Count 497 TH/MM3 (150-450) Monocytes (%) (Auto) 11.1 % (0.0-8.0) Eosinophils (%) (Auto) 4.4 % (0.0-4.0) Monocytes # (Auto) 1.1 TH/MM3 (0-0.9) Myelocytes 1 % (0-0) Platelet Estimate HIGH (NORMAL) Ovalocytes 1+ (NORMAL) PE at Discharge GENERAL: SKIN: Warm and dry. ble charcot wounds HEAD: Atraumatic. Normocephalic. EYES: Pupils equal and round. No scleral icterus. No injection or drainage. ENT: No nasal bleeding or discharge. Mucous membranes pink and moist. NECK: Trachea midline. No JVD. CARDIOVASCULAR: Regular rate and rhythm. RESPIRATORY: No accessory muscle use. Clear to auscultation. Breath sounds equal bilaterally. GASTROINTESTINAL: Abdomen soft, non-tender, nondistended. Hepatic and splenic margins not palpable. MUSCULOSKELETAL: Extremities without clubbing, cyanosis, or edema. No obvious deformities. NEUROLOGICAL: Awake and alert. No obvious cranial nerve deficits. Motor grossly within normal limits. 3 out of 5 muscle strength in the arms and legs. Normal speech. PSYCHIATRIC: Appropriate mood and affect; insight and judgment normal. Hospital Course 56-year-old man with- Sepsis Group A strep bacteremia Left foot osteomyelitis. hospital course and plan is to- Diabetic foot ulcer and infected Currently on Unasyn-he will need 6 weeks total of IV Unasyn followed by months of PO (Augmentin) until clinical resolution under supervision of wind turbine sheet metal worker per infectious disease doctor, Dr. Ashely Pierce Management per infectious disease specialist as well as podiatry Symptomatic anemia Normochromic normocytic anemia Negative FOBT on admission Monitor H&H Gastroenterology sign off Acute on chronic kidney disease Resolved Hyponatremia-resolved Diabetes type 2 Hold glipizide secondary to worsening renal functions Continue insulin sliding scale fingerstick blood glucose monitoring Charcot foot due to diabetes mellitus Patient is refusing amputation Hypertension Continue Norvasc Schizophrenia Continue Thiorizadine Anxiety - Lorazepam PRN. dc home w [facility], pt understands impending likely loss of limb and or . denies snf. Discharge Disposition: Disch w/ Home Health Serv Discharge Instructions DIET: Follow Instructions for: Diabetic Diet Activities you can perform: See Additionl Instruction Follow up Referrals: PCP Follow-up - 2-3 Days Podiatry - 1 Week with Cecy Salvador DPM New Medications: Ampicillin-Sulbactam Inj (Unasyn Inj) 3 Gm Vial 3 GM IV Q6H Infection Days 40 Ref 0 BAG Continued Medications: Amlodipine (Norvasc) 5 Mg Tab 5 MG PO DAILY Blood Pressure Management #[address] (Aspirin 81) 81 Mg Tabdr 81 MG PO DAILY Ref 0 TAB Glipizide (Glipizide) 5 Mg Tab 5 MG PO BIDAC Take 30 minutes before a meal Blood Sugar Management #60 Ref 0 TAB Hydrocodone-Acetaminophen (Hydrocodone-Acetaminophen) 5-325 mg Tab 1 TAB PO Q6HR PRN PAIN GREATER THAN 5 #20 Ref 0 TAB Insulin Aspart Inj (Novolog Inj) 100 Unit/Ml Inj 1 UNITS SQ ACHS SLIDING SCALE DM Days 90 BOTTLE Lorazepam (Ativan) 0.5 Mg Tab 0.5 MG PO Q8H PRN SEVERE ANXIETY OR AGITATION #90 Ref 5 TAB Thioridazine (Thioridazine) 100 Mg Tab 200 MG PO DAILY Schizophrenia #30 Ref 0 TAB Jack Rod MD Feb 25, 2017 09:05
--- NOTE | 2017-02-25 10:54 | HHI.IDPN ---
Subjective Subjective Remarks ID [id number] for Dr Quintana he wants to go home afebrile no new problems Antibiotics Unasyn Lines Line sites with no evidence of infection. 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 Vital Signs Date Time Temp Pulse Resp B/P Pulse Ox O2 Delivery O2 Flow Rate FiO2 02/25/17 07:45 96.4 70 18 162/72 95 02/25/17 04:50 97.3 68 20 165/73 96 02/25/17 04:00 97.3 63 20 168/73 95 02/25/17 00:00 96.7 68 20 152/67 93 02/24/17 20:27 97.0 72 20 130/61 95 02/24/17 19:57 18 02/24/17 17:00 97.4 70 18 173/79 96 02/24/17 12:01 96.8 70 19 160/72 95 02/24/17 02/24/17 02/25/17 15:00 23:00 07:00 Intake Total 460 ml 480 ml Output Total 280 ml 400 ml 700 ml Balance 180 ml -400 ml -220 ml Intake Oral 460 ml 480 ml Output Urine Total 280 ml 400 ml 700 ml # Voids 3 # Bowel Movements 1 Imaging Last Impressions Barium Enema w/Air Contrast 02/20/17 0000 Signed Impressions: Service Date/Time: Monday, February 20, 2017 13:40 - CONCLUSION: We were only able to reflux a limited amount of barium into the cecum this was despite over a bag and a half of barium. This patient has an extremely redundant colon. No definite mucosal abnormality was identified but again, there is only partial visualization of the cecum. There was retained stool within the cecum. Darrell Yanes MD Tumor Localization 02/18/17 0000 Signed Impressions: Service Date/Time: Saturday, February 18, 2017 12:35 - CONCLUSION: Findings are highly suspicious for osteomyelitis in the left cuboid bone with sinus tract extending to cellulitis/ulcer plantar aspect of the left foot. No abnormal white cell accumulation to the osseous structures of the right foot. Randall Car MD Foot X-Ray 02/17/17 0000 Signed Impressions: Service Date/Time: Friday, February 17, 2017 20:48 - CONCLUSION: Charcot joint and extensive soft tissue swelling/emphysema. No fracture. Zaid Darden MD Chest X-Ray 02/16/17 1318 Signed Impressions: Service Date/Time: Thursday, February 16, 2017 13:32 - CONCLUSION: No acute cardiopulmonary disease identified. Ganga Luna MD Physical Exam GENERAL: Thin built, well-developed patient, in no apparent distress. SKIN: No rashes EYES: No scleral icterus. RESPIRATORY: breathing unlaboured GASTROINTESTINAL: Abdomen soft, non-tender, nondistended. No hepato-splenomegaly , or palpable masses. + periumbilical reducible hernia MUSCULOSKELETAL: Bilateral LE charcot deformities with plantar ulcers. Bilateral feet in dressings. Toes well perfused R foot with dressing in place L foot with smaller appearing fully granulated with serosang odorless dc no necrotics no edema, no erythema + prominent rocker bottom b/l feet deformities NEUROLOGICAL: Awake and alert. Grossly non focal Psych: cooperative IV line sites with no e.o infection. Assessment & Plan Remarks Sepsis (fever, tachycardia, Strep bacteremia) present on admission Grp A Strep bacteremia: unclear source Proteus in urine: unreliable for symptomatology. Diabetic foot ulcer infected L foot osteo - clx is positive for GD Ent (gropu D enterococcus) - guy S - along with mixed anaeorbs and GBS WBC scan abnormal concern for osteomyelitis. path P Charcot foot/DM Neuropathy. Acute on chronic renal failure (DM neuropathy as baseline). - improving slowly Chronic Hyponatremia likely chronic alcoholism related Schizophrenia, past psych admissions. Abnormal LFTs: sepsis or medication induced. Recs: cont Unasyn; anticipate 6 weeks of IV followed by months of oral rx overall prognosis for foot salvage is poor pt was informed that conservative tx in his case has very high failuyre rate with outcomes of worsning infx, sepsis, comlications 2/2 prolonged abx use ( kidney, liver, hematological adverse effects, allergic reactions and C.diff) call placed to to discuss post discharge mngmt Patient has refused amputation or aggressive surgical management at this point. jason Metcalf [place] to [place] home dw case mngr Kari Lund MD Feb 25, 2017 10:54
[2017-02-25 11:55] VITALS: BP 173/78; PULSE 87; RESP 18; TEMP 96; O2SAT 98
[2017-02-25] MEDS: ACETAMINOPHEN/HYDROcodone 325 MG/5 MG TAB PO PRN (15:24)
[2017-02-25 16:35] VITALS: BP 172/77; PULSE 85; RESP 18; TEMP 96.4; O2SAT 97
== END 2017-02-25 16:55 | disposition home health service (06) | DRG 854 ==
LOC: NEPE 12:59 → NEDA 15:42 → N05B 19:48
PROVIDERS: ADMIT Family Medicine; ATTEND Family Medicine
PROC: 30233N1 Transfusion of Nonautologous Red Blood Cells into Peripheral Vein, Percutaneous Approach (ICD-10-PCS; principal; 2017-02-16)
PROC: 0DJD8ZZ Inspection of Lower Intestinal Tract, Via Natural or Artificial Opening Endoscopic (ICD-10-PCS; 2017-02-19)
PROC: 0DJ08ZZ Inspection of Upper Intestinal Tract, Via Natural or Artificial Opening Endoscopic (ICD-10-PCS; 2017-02-19)
PROC: 0DJD8ZZ Inspection of Lower Intestinal Tract, Via Natural or Artificial Opening Endoscopic (ICD-10-PCS; 2017-02-20)
PROC: 0DB68ZX Excision of Stomach, Via Natural or Artificial Opening Endoscopic, Diagnostic (ICD-10-PCS; 2017-02-20)
PROC: 0QBM3ZX Excision of Left Tarsal, Percutaneous Approach, Diagnostic (ICD-10-PCS; 2017-02-20 10:15)
DX: A40.0 Sepsis due to streptococcus, group A (principal); N17.9 Acute kidney failure, unspecified; E11.22 Type 2 diabetes mellitus with diabetic chronic kidney disease; K31.84 Gastroparesis; E11.621 Type 2 diabetes mellitus with foot ulcer; E87.1 Hypo-osmolality and hyponatremia; E11.43 Type 2 diabetes mellitus with diabetic autonomic (poly)neuropathy; N18.3 Chronic kidney disease, stage 3 (moderate); N39.0 Urinary tract infection, site not specified; L97.519 Non-pressure chronic ulcer of other part of right foot with unspecified severity; E11.610 Type 2 diabetes mellitus with diabetic neuropathic arthropathy; F41.9 Anxiety disorder, unspecified; F20.9 Schizophrenia, unspecified; L97.529 Non-pressure chronic ulcer of other part of left foot with unspecified severity; B96.4 Proteus (mirabilis) (morganii) as the cause of diseases classified elsewhere; I12.9 Hypertensive chronic kidney disease with stage 1 through stage 4 chronic kidney disease, or unspecified chronic kidney disease; D64.9 Anemia, unspecified; E87.6 Hypokalemia; F10.20 Alcohol dependence, uncomplicated; K25.9 Gastric ulcer, unspecified as acute or chronic, without hemorrhage or perforation; B95.2 Enterococcus as the cause of diseases classified elsewhere; E11.69 Type 2 diabetes mellitus with other specified complication; M86.172 Other acute osteomyelitis, left ankle and foot; E11.649 Type 2 diabetes mellitus with hypoglycemia without coma; Z79.4 Long term (current) use of insulin; Z91.19 Patient's noncompliance with other medical treatment and regimen; Z87.891 Personal history of nicotine dependence
CPT/HCPCS: 36430; 71010; 73630; 74280; 76937; 78807; 78999; 80048; 80053; 80074; 81001; 82550; 82948; 83540; 83550; 83605; 83690; 83735; 83880; 84100; 84484; 85007; 85025; 85027; 85610; 85730; 86403; 86850; 86900; 86901; 86920; 87040; 87070; 87077; 87086; 87147; 87149; 87185; 87186; 87205; 88305; 88307; 88311; 88312; 93005; 93306; 94664; 96361; 96374; A9569; J0295; J0456; J0696; J1815; J1940; J7030; J7042; J7050; P9016

== ENCOUNTER 2017-02-26 13:26 | Day surgery (SDC) | payer MEDICARE, MEDICAID ==
[~2017-02-26 13:26] MED LIST changes: +UNAS3INJ IV
[2017-02-26 13:40] VITALS: BP 173/73; PULSE 87; TEMP 98.3; O2SAT 99
[2017-02-26 15:03] VITALS: BP 142/65; PULSE 78; TEMP 98.4; O2SAT 97
--- NOTE | 2017-02-26 15:07 | PD.RAD ---
Radiology Post PICC Prog Note Pre Procedure Diagnosis: (1) Sepsis Post Procedure Diagnosis: (1) Sepsis Procedure: Right PICC line placement Procedure Date: Feb 26, 2017 Supervising Radiologist Darrell Yanes Proceduralist/Assist: Nikki Pan RT(R)() Device Honduran: 4 single lumen cm: 45 Catheter: Power PICC Plan of Activity Patient to Unit: Nursing Unit Patient Condition: Fair PICC line can be used immediately Darrell Yanes MD Feb 26, 2017 15:06
[2017-02-26] MEDS ORDERED: SODIUM CHLORIDE 0.9% FLUSH 10 ML FLUSH IVF PRN ×2 (15:15)
--- NOTE | 2017-02-26 16:06 | RADRPT ---
EXAM DATE/TIME: 02/26/2017 14:50 [facility] COMPARISON: CENTRAL VENOUS CATHETER REMOVAL, TUNNELED RIGHT, September 25, 2016, 0:00. INDICATIONS : Patient presents with osteomyelitis in need of peripheral intravenous access for medication administr ation. MEDICAL HISTORY : HTN DM Renal failure Former smoker Hiatal hernia SURGICAL HISTORY : Right foot foreign body removal ENCOUNTER: Initial ACUITY: 2 months PAIN SCORE: 9/10 LOCATION: Bilateral Legs FLUORO TIME: 0.1 minutes IMAGE SERIES: 0 ACCESS: Right brachial vein DEVICE(S): 1.) 4 Niuean single lumen 45 cm Xcela Power PICC PROCEDURE : 1. Ultrasound guidance for venous catheterization. 2. Fluoroscopic guidance. 3. Ultrasound & fluoroscopic guided central venous Power PICC line placement. The risks, benefits and alternatives to the procedure were explained and verbal and written consent w as obtained. The site was prepped in sterile fashion. Full sterile technique was used, including ca p, mask, sterile gloves and gown and a large sterile sheet. Hand hygiene and 2% chlorhexidine prep w as utilized per protocol for cutaneous antisepsis with appropriate dry time for site. The skin and s ubcutaneous tissues were infiltrated with local anesthetic solution. Under direct ultrasound guidance, a suitable vein was accessed and a measuring guidewire was introduc ed and positioned in the central venous system. The ultrasound images depicting access guidance were saved and stored to PACS for permanent record. A Power Injectable PICC line was cut to prescribed length and introduced, positioned with tip at the cavoatrial junction level. The line was flushed and secured per protocol. CONCLUSION: 1. Uncomplicated central venous Power PICC line placement. 2. The PICC line can be used immediately. Darrell Yanes MD on February 26, 2017 at 16:04 Board Certified Radiologist. This report was verified electronically.
[2017-02-27] MEDS ORDERED: HYDR-3533 PO (00:28)
[2017-02-27] MEDS ORDERED: SODIUM CHLORIDE 0.9% FLUSH 10 ML FLUSH IVF SCH (09:00)
== END 2017-02-26 15:15 | disposition home or self-care (01) ==
LOC: HROP 13:26 → HRIP 13:27 → HROP 15:15
PROVIDERS: ATTEND Internal Medicine Infectious Disease
DX: A41.9 Sepsis, unspecified organism (principal); M86.9 Osteomyelitis, unspecified; E11.9 Type 2 diabetes mellitus without complications; I10 Essential (primary) hypertension; Z87.891 Personal history of nicotine dependence
CPT/HCPCS: 36569; 76937; 77001; C1751; J1642

== ENCOUNTER 2017-02-26 21:09 | Emergency (ER) | payer MEDICARE, MEDICAID ==
[~2017-02-26] VITALS: Ht 180.3 cm; Wt 95.0 kg
[2017-02-26 21:22] VITALS: BP 161/70; PULSE 67; RESP 16; TEMP 98.3; O2SAT 98
[2017-02-26] MEDS ORDERED: GELATIN 12 MM/7 MM FOAM TOPICAL ONE (23:30)
[2017-02-27] MEDS ORDERED: AMPICILLIN-SULBACTAM INJ 3 GM in SODIUM CHLORIDE 0.9% INJ 100 ML IV ONE ×2
--- NOTE | 2017-02-27 00:06 | PD ---
HPI Chief Complaint: Bleeding Time Seen by Provider: 23:17 Travel History International Travel<30 days: No Contact w/Intl Traveler<30days: No Traveled to known affect area: No History of Present Illness HPI The 56-year-old man who presents to the emergency department complains bleeding from his PICC line. His history diabetes, schizophrenia, hypertension, and has a Charcot foot with osteomyelitis and is being treated with IV antibiotics. Is discharged from hospital yesterday and had a PICC line placed in his right arm today. Complains of bleeding from the PICC line site. History Past Medical History Narrative Medical Diabetes Schizophrenia Hypertension Social History Alcohol Use: No (DENIES) Tobacco Use: No (QUIT 2012) Allergies-Medications (Allergen,Severity, Reaction): Coded Allergies: Haldol (Verified Allergy, Severe, BLINDNESS, 02/26/17) Vancomycin (Verified Allergy, Severe, 02/26/17) Levaquin (Verified Allergy, Intermediate, Cramping, 02/26/17) Prolixin (Verified Allergy, Unknown, "PARKINSONIAN SHACKS", 02/26/17) *MDRO Multi-Drug Resistant Organism (Verified Adverse Reaction, Unknown, VRE, 02/26/17) 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 Reported Meds & Prescriptions Reported Meds & Active Scripts Active Unasyn Inj (Ampicillin-Sulbactam Inj) 3 Gm Vial 3 Gm IV Q6H 40 Days Hydrocodone-Acetaminophen 5-325 mg Tab 1 Tab PO Q6HR PRN Norvasc (Amlodipine Besylate) 5 Mg Tab 5 Mg PO DAILY Ativan (Lorazepam) 0.5 Mg Tab 0.5 Mg PO Q8H PRN Novolog Inj (Insulin Aspart) 100 Unit/Ml Inj 1 Units SQ ACHS SLIDING SCALE 90 Days Reported Glipizide 5 Mg Tab 5 Mg PO BIDAC Take 30 minutes before a meal Aspirin 81 (Aspirin) 81 Mg Tabdr 81 Mg PO DAILY Thioridazine (Thioridazine HCl) 100 Mg Tab 200 Mg PO DAILY Review of Systems Except as stated in HPI: all other systems reviewed are Neg Physical Exam Narrative GENERAL: Well-appearing 56 year-old woman, no acute distress. SKIN: Warm and dry. No other areas of bleeding or bruising. CARDIOVASCULAR: Warm and well perfused. RESPIRATORY: Normal rate and effort. MUSCULOSKELETAL: Right upper extremity was examined. He is a bulky dressing on the right arm with gauze taped over it that's all saturated in blood. This was taken down. His a tiny monitor going bleeding from the PICC line site. Was cleansed with chlorhexidine, Gelfoam was placed, sterile dressing was applied, and a pressure dressing was applied over it. NEUROLOGICAL: Awake and alert. No gross deficits. Data Data Last Documented VS Vital Signs Date Time Temp Pulse Resp B/P Pulse Ox O2 Delivery O2 Flow Rate FiO2 02/26/17 21:22 98.3 67 16 161/70 98 Room Air Orders Gelatin 12 Mm/7 Mm Top (Gelfoam 12 Mm/7 (02/26/17 23:30) Ampicillin-Sulbactam Inj (Unasyn Inj) (02/27/17 00:00) Acetamin-Hydrocod 325-5 Mg (Frederic 5-325 (02/27/17 00:15) MDM Medical Decision Making Medical Screen Exam Complete: Yes Emergency Medical Condition: Yes Differential Diagnosis Bleeding, coagulopathy,, cytopenia, other Narrative Course Medical decision making INITIAL: Is a 56 old man who presents to the emergency department when of bleeding from his PICC line site. He looks a little bit chronically ill but overall nontoxic. We will place some Gelfoam at the site of bleeding in Rusher dressing applied a little bit of pressure. We'll give him his evening dose of antibiotics that is due for, and monitor for any ongoing bleeding. Reassess. Diagnosis Primary Impression: Bleeding from PICC line Additional Instructions: Follow-up with your primary doctor. Follow-up with home health nurse tomorrow. Med/Other Pt SpecificInfo: Prescription(s) given Scripts Hydrocodone-Acetaminophen (Lortab)5-325 Mg Tab1 Tab PO Q6H PRN (PAIN) #6 TAB Prov:Duncan Garcia MD 02/27/17 Disposition: 01 DISCHARGE HOME Condition: Stable Duncan Garcia MD Feb 27, 2017 00:06
[2017-02-27] MEDS ORDERED: ACETAMINOPHEN/HYDROcodone 325 MG/5 MG TAB PO ONE (00:15)
[2017-02-27] MEDS ORDERED: HYDR-3533 PO (00:28)
== END 2017-02-27 00:45 | disposition home or self-care (01) ==
LOC: NEPC 21:09
DX: T82.838A Hemorrhage due to vascular prosthetic devices, implants and grafts, initial encounter (principal); E11.9 Type 2 diabetes mellitus without complications; I10 Essential (primary) hypertension; Z79.4 Long term (current) use of insulin; Z87.39 Personal history of other diseases of the musculoskeletal system and connective tissue; Z86.59 Personal history of other mental and behavioral disorders; Z87.891 Personal history of nicotine dependence
CPT/HCPCS: 96374; 99284; J0295

== ENCOUNTER 2017-03-27 13:32 | Observation (INO) | payer MEDICARE, MEDICAID ==
[~2017-03-27] VITALS: Ht 175.3 cm; Wt 91.7 kg
[~2017-03-27 13:32] MED LIST changes: +HYDR-3533 PO
[2017-03-27 13:41] VITALS: BP 150/73; PULSE 78; RESP 18; TEMP 97.3; O2SAT 100
--- NOTE | 2017-03-27 15:03 | PD ---
HPI Chief Complaint: Abnormal Results Time Seen by Provider: 14:49 Travel History International Travel<30 days: No Contact w/Intl Traveler<30days: No Traveled to known affect area: No History of Present Illness HPI This patient had an outpatient blood draw yesterday. He was told by his home health nurse that he should come to the emergency room and get blood transfusion. His hemoglobin yesterday was 6.9. He does complain of some fatigue and generalized weakness more so than usual. He denies any bleeding or melena. He has history of chronic anemia and according to him it's unclear why. He did have upper and lower endoscopy as well as barium enema in the hospital last month but no etiology found. He has a right arm PICC line getting IV antibiotics for diabetic foot infection. Symptoms severity is moderate. No alleviating factors. Duration one week PFSH Past Medical History Hx Anticoagulant Therapy: No Arthritis: No Asthma: No Autoimmune Disease: No Blood Disorders: No Anxiety: Yes Depression: Yes Heart Rhythm Problems: No Cancer: No Cardiovascular Problems: Yes (HTN) High Cholesterol: No Chemotherapy: No Chest Pain: No Congestive Heart Failure: No COPD: No Cerebrovascular Accident: No Diabetes: Yes Diminished Hearing: No Endocrine: No Gastrointestinal Disorders: No GERD: No Glaucoma: No Genitourinary: No Headaches: No Hepatitis: No Hiatal Hernia: Yes Heparin Induced Thrombocytopen: No Hypertension: Yes Immune Disorder: No Implanted Vascular Access Dvce: No Kidney Stones: No Musculoskeletal: No Neurologic: No Psychiatric: Yes (schizoprenia controlled ) Reproductive: No Respiratory: No Migraines: No Myocardial Infarction: No Radiation Therapy: No Renal Failure: No Schizophrenia: Yes Seizures: No Sickle Cell Disease: No Sleep Apnea: No Thyroid Disease: No Ulcer: No Past Surgical History Abdominal Surgery: No AICD: No Appendectomy: No Arteriovenous Shunt: No Cardiac Surgery: No Cholecystectomy: No Ear Surgery: No Endocrine Surgery: No Eye Surgery: No Genitourinary Surgery: No Gynecologic Surgery: No Insulin Pump: No Joint Replacement: No Neurologic Surgery: No Oral Surgery: No Pacemaker: No Thoracic Surgery: No Other Surgery: Yes (R FOOT IND) Social History Alcohol Use: No (DENIES) Tobacco Use: No (QUIT 2012) Substance Use: No Allergies-Medications (Allergen,Severity, Reaction): Coded Allergies: Haldol (Verified Allergy, Severe, BLINDNESS, 03/27/17) Vancomycin (Verified Allergy, Severe, 03/27/17) Levaquin (Verified Allergy, Intermediate, Cramping, 03/27/17) Prolixin (Verified Allergy, Unknown, "PARKINSONIAN SHACKS", 03/27/17) *MDRO Multi-Drug Resistant Organism (Verified Adverse Reaction, Unknown, VRE, 03/27/17) 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 Reported Meds & Prescriptions Reported Meds & Active Scripts Active Lortab (Hydrocodone-Acetaminophen) 5-325 Mg Tab 1 Tab PO Q6H PRN Unasyn Inj (Ampicillin-Sulbactam Inj) 3 Gm Vial 3 Gm IV Q6H 40 Days Hydrocodone-Acetaminophen 5-325 mg Tab 1 Tab PO Q6HR PRN Norvasc (Amlodipine Besylate) 5 Mg Tab 5 Mg PO DAILY Ativan (Lorazepam) 0.5 Mg Tab 0.5 Mg PO Q8H PRN Novolog Inj (Insulin Aspart) 100 Unit/Ml Inj 1 Units SQ ACHS SLIDING SCALE 90 Days Reported Lisinopril 20 Mg Tab 20 Mg PO DAILY [Mellaril] 200 Mg PO Glipizide 5 Mg Tab 5 Mg PO BIDAC Take 30 minutes before a meal Aspirin 81 (Aspirin) 81 Mg Tabdr 81 Mg PO DAILY Review of Systems General / Constitutional: No: Fever Eyes: No: Visual changes HENT: No: Headaches Cardiovascular: No: Chest Pain or Discomfort Respiratory: No: Shortness of Breath Gastrointestinal: No: Abdominal Pain Genitourinary: No: Dysuria Musculoskeletal: Positive: Weakness, No: Pain Skin: No Rash Neurologic: Positive: Weakness Psychiatric: No: Depression Endocrine: No: Polydipsia Hematologic/Lymphatic: No: Easy Bruising Physical Exam Narrative GENERAL: Well-nourished, well-developed patient in no apparent distress. SKIN: Focused skin assessment reveals no rash and nodules. Skin is Warm and dry. HEAD: Atraumatic. Normocephalic. EYES: Pupils equal and round. No scleral icterus. No injection or drainage. ENT: No nasal bleeding or discharge. Mucous membranes pink and moist. NECK: Trachea midline. No JVD. CARDIOVASCULAR: Regular rate and rhythm. No murmur appreciated. RESPIRATORY: No accessory muscle use. Clear to auscultation. Breath sounds equal bilaterally. GASTROINTESTINAL: Abdomen soft, non-tender, nondistended. Hepatic and splenic margins not palpable. MUSCULOSKELETAL: No obvious deformities. No clubbing. No cyanosis. Has bilateral foot dressings. NEUROLOGICAL: Awake and alert. No obvious cranial nerve deficits. Motor grossly within normal limits. Normal speech. PSYCHIATRIC: Appropriate mood and affect; insight and judgment normal. Data Data Last Documented VS Vital Signs Date Time Temp Pulse Resp B/P Pulse Ox O2 Delivery O2 Flow Rate FiO2 03/27/17 15:12 18 98 Room Air 03/27/17 13:41 97.3 78 150/73 Orders Complete Blood Count With Diff (03/27/17 14:56) Prothrombin Time / Inr (Pt) (03/27/17 14:56) Act Partial Throm Time (Ptt) (03/27/17 14:56) Basic Metabolic Panel (Bmp) (03/27/17 14:56) Type And Screen (03/27/17 14:56) Admit Order (Ed Use Only) (03/27/17 15:44) Labs Laboratory Tests Test 03/27/17 15:20 White Blood Count 8.6 TH/MM3 Red Blood Count 2.63 MIL/MM3 Hemoglobin 7.3 GM/DL Hematocrit 21.8 % Mean Corpuscular Volume 82.8 FL Mean Corpuscular Hemoglobin 27.5 PG Mean Corpuscular Hemoglobin 33.2 % Concent Red Cell Distribution Width 16.6 % Platelet Count 416 TH/MM3 Mean Platelet Volume 6.5 FL Neutrophils (%) (Auto) 67.1 % Lymphocytes (%) (Auto) 20.8 % Monocytes (%) (Auto) 8.5 % Eosinophils (%) (Auto) 3.2 % Basophils (%) (Auto) 0.4 % Neutrophils # (Auto) 5.8 TH/MM3 Lymphocytes # (Auto) 1.8 TH/MM3 Monocytes # (Auto) 0.7 TH/MM3 Eosinophils # (Auto) 0.3 TH/MM3 Basophils # (Auto) 0.0 TH/MM3 CBC Comment DIFF FINAL Differential Comment Prothrombin Time 11.5 SEC Prothromb Time International 1.0 RATIO Ratio Activated Partial 34.5 SEC Thromboplast Time Sodium Level 135 MEQ/L Potassium Level 4.3 MEQ/L Chloride Level 103 MEQ/L Carbon Dioxide Level 23.3 MEQ/L Anion Gap 9 MEQ/L Blood Urea Nitrogen 24 MG/DL Creatinine 2.00 MG/DL Estimat Glomerular Filtration 35 ML/MIN Rate Random Glucose 67 MG/DL Calcium Level 9.8 MG/DL MDM Medical Decision Making Medical Screen Exam Complete: Yes Emergency Medical Condition: Yes Medical Record Reviewed: Yes Differential Diagnosis Symptomatic anemia, occult GI bleed, hemolytic anemia Narrative Course I have reviewed the patient's electronic medical record. I reviewed GI consultation as well as discharge summary from February 2017 admission He left the hospital hemoglobin of 10.6. His outpatient CBC from yesterday shows hemoglobin of 6.9 CBC today reveals hemoglobin of 7.3 Metabolic profile is normal Coagulation studies are normal Type and screen was carried out We tried to page Dr. Rod but her machine said the collar be returned in 24-48 hours. Obviously that's not sufficient so I called his cellphone and I left a message when he did not answer. Hopefully he will call him back and we will discuss the case Since he sent him here for transfusion I have placed him under observation here for that transfusion. Diagnosis Primary Impression: Symptomatic anemia Admitting Information Admitting Physician Requests: Observation Thanh Conley MD Mar 27, 2017 15:03
[2017-03-27] MEDS ORDERED: MELLARIL PO (15:10)
[2017-03-27] MEDS ORDERED: LISI-515 PO (15:11)
[2017-03-27 15:33] LABS: AUTOMATED NEUTROPHIL # 5.8 TH/MM3 (1.8-7.7); BASOPHIL % 0.4 % (0.0-2.0); EOSINOPHIL # 0.3 TH/MM3 (0-0.4); EOSINOPHIL % 3.2 % (0.0-4.0); HEMATOCRIT 21.8 % (39.0-51.0); HEMO FLAGS DIFF FINAL; LYMPH % 20.8 % (9.0-44.0); LYMPHOCYTE # 1.8 TH/MM3 (1.0-4.8); MEAN CELL VOLUME 82.8 FL (80.0-100.0); MEAN CORPUSCULAR HEMOGLOBIN 27.5 PG (27.0-34.0); MEAN CORPUSCULAR HGB CONC 33.2 % (32.0-36.0); MONO % 8.5 % (0.0-8.0); NEUT % 67.1 % (16.0-70.0); PLATELET COUNT 416 TH/MM3 (150-450); RED BLOOD COUNT 2.63 MIL/MM3 (4.50-5.90); RED CELL DISTRIBUTION WIDTH 16.6 % (11.6-17.2); WHITE BLOOD COUNT 8.6 TH/MM3 (4.0-11.0)
[2017-03-27 15:41] LABS: POTASSIUM 4.3 MEQ/L (3.5-5.1)
[2017-03-27 15:44] LABS: BICARBONATE 23.3 MEQ/L (21.0-32.0)
[2017-03-27 15:45] LABS: APTT (PATIENT) 34.5 SEC (24.3-30.1); PROTHROMBIN TIME - PATIENT 11.5 SEC (9.8-11.6)
[2017-03-27] MEDS ORDERED: SODIUM CHLOR 0.9% 250 ML INJ 250 ML IV ONE (16:00)
[2017-03-27 17:12] VITALS: BP 192/75
[2017-03-27 17:50] VITALS: BP 198/86; PULSE 87; RESP 16; TEMP 96.7; O2SAT 98
[2017-03-27] MEDS ORDERED: ONDANSETRON HCL 4 MG/2 ML VIAL IVP PRN (18:15)
[2017-03-27] MEDS ORDERED: cloNIDine HCL 0.1 MG TAB PO PRN (18:15)
[2017-03-27] MEDS ORDERED: SENNOSIDES 8.6 MG TAB PO PRN (18:15)
[2017-03-27] MEDS ORDERED: ACETAMINOPHEN 325 MG TAB PO PRN (18:15)
[2017-03-27] MEDS ORDERED: DEXTROSE 50% IN WATER 50 ML VIAL(D50) IV PRN (18:15)
[2017-03-27] MEDS ORDERED: LORazepam 0.5 MG TAB PO PRN (18:15)
[2017-03-27] MEDS ORDERED: GLUCAGON 1 MG/ML VIAL OTHER PRN (18:15)
[2017-03-27] MEDS ORDERED: AMPICILLIN-SULBACTAM INJ 3 GM VIAL IM SCH (18:15)
[2017-03-27] MEDS ORDERED: NALOXONE HCL 0.4 MG/ML AMP IV PRN (18:15)
[2017-03-27] MEDS ORDERED: SODIUM CHLORIDE 0.9% FLUSH 10 ML FLUSH IV FLUSH PRN (18:15)
[2017-03-27] MEDS ORDERED: BISACODYL 10 MG SUPP RECTAL PRN (18:15)
[2017-03-27] MEDS ORDERED: MAGNESIUM HYDROXIDE SUSP 30 ML CUP PO PRN (18:15)
[2017-03-27] MEDS ORDERED: LACTULOSE SYRUP 20 GM/30 ML CUP PO PRN (18:15)
--- NOTE | 2017-03-27 19:47 | HHI.HP ---
HPI Service [facility] Primary Care Physician Jack Rod MD Admission Diagnosis symptomatic anemia Diagnoses: Travel History International Travel<30 Days: No Contact w/Intl Traveler <30 Da: No Traveled to Known Affected Are: No History of Present Illness 56-year-old male with a medical history significant for hypertension, anxiety, schizophrenia, CKD, diabetes with ongoing bilateral foot infection on IV antibiotics presented to the emergency room for blood transfusion. I discussed the case with the patient's primary care physician Dr. Rod. Apparently the patient has had recurrent and chronic anemia. He has had extensive workup including endoscopy with no source of bleeding. He is hemoglobin was checked yesterday and it was 6.9. He does report increasing fatigue and mild lightheadedness but denies chest pain or shortness of breath. No heart palpitations. Review of Systems Constitutional: COMPLAINS OF: Fatigue Cardiovascular: DENIES: Chest pain, Palpitations Except as stated in HPI: all other systems reviewed are Neg Past Family Social History Past Medical History As noted in the history of present illness. Past Surgical History Right foot surgery. Reported Medications Reported Meds & Active Scripts Active Lortab (Hydrocodone-Acetaminophen) 5-325 Mg Tab 1 Tab PO Q6H PRN Unasyn Inj (Ampicillin-Sulbactam Inj) 3 Gm Vial 3 Gm IV Q6H 40 Days Hydrocodone-Acetaminophen 5-325 mg Tab 1 Tab PO Q6HR PRN Norvasc (Amlodipine Besylate) 5 Mg Tab 5 Mg PO DAILY Ativan (Lorazepam) 0.5 Mg Tab 0.5 Mg PO Q8H PRN Novolog Inj (Insulin Aspart) 100 Unit/Ml Inj 1 Units SQ ACHS SLIDING SCALE 90 Days Reported Lisinopril 20 Mg Tab 20 Mg PO DAILY [Mellaril] 200 Mg PO Glipizide 5 Mg Tab 5 Mg PO BIDAC Take 30 minutes before a meal Aspirin 81 (Aspirin) 81 Mg Tabdr 81 Mg PO DAILY Allergies: Coded Allergies: Haldol (Verified Allergy, Severe, BLINDNESS, 03/27/17) Vancomycin (Verified Allergy, Severe, 03/27/17) Levaquin (Verified Allergy, Intermediate, Cramping, 03/27/17) Prolixin (Verified Allergy, Unknown, "PARKINSONIAN SHACKS", 03/27/17) *MDRO Multi-Drug Resistant Organism (Verified Adverse Reaction, Unknown, VRE, 03/27/17) 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 Family History Reviewed and noncontributory Social History Denies alcohol, tobacco, or illicit drug use. Physical Exam Vital Signs Vital Signs Date Time Temp Pulse Resp B/P Pulse Ox O2 Delivery O2 Flow Rate FiO2 03/27/17 17:50 96.7 87 16 198/86 98 03/27/17 17:12 80 16 192/75 99 03/27/17 15:12 18 98 Room Air 03/27/17 13:41 97.3 78 18 150/73 100 Physical Exam GENERAL: This is a well-nourished, well-developed patient, in no apparent distress. SKIN: No rashes, ecchymoses or lesions. Cool and dry. HEAD: Atraumatic. Normocephalic. No temporal or scalp tenderness. EYES: Pupils equal round and reactive. Extraocular motions intact. No scleral icterus. No injection or drainage. ENT: Nose without bleeding, purulent drainage or septal hematoma. Throat without erythema, tonsillar hypertrophy or exudate. Uvula midline. Airway patent. NECK: Trachea midline. No JVD or lymphadenopathy. Supple, nontender, no meningeal signs. CARDIOVASCULAR: Regular rate and rhythm without murmurs, gallops, or rubs. RESPIRATORY: Clear to auscultation. Breath sounds equal bilaterally. No wheezes , rales, or rhonchi. GASTROINTESTINAL: Abdomen soft, non-tender, nondistended. No hepato-splenomegaly , or palpable masses. No guarding. MUSCULOSKELETAL: Bilateral feet with extensive dressing. Per patient it is changed twice a week. Since the wound is chronic. Dressing was not removed. NEUROLOGICAL: Awake and alert. Cranial nerves II through XII intact. Motor and sensory grossly within normal limits. Five out of 5 muscle strength in all muscle groups. Normal speech. Laboratory Laboratory Tests Test 03/27/17 03/27/17 15:20 15:59 White Blood Count 8.6 Red Blood Count 2.63 Hemoglobin 7.3 Hematocrit 21.8 Mean Corpuscular Volume 82.8 Mean Corpuscular Hemoglobin 27.5 Mean Corpuscular Hemoglobin 33.2 Concent Red Cell Distribution Width 16.6 Platelet Count 416 Mean Platelet Volume 6.5 Neutrophils (%) (Auto) 67.1 Lymphocytes (%) (Auto) 20.8 Monocytes (%) (Auto) 8.5 Eosinophils (%) (Auto) 3.2 Basophils (%) (Auto) 0.4 Neutrophils # (Auto) 5.8 Lymphocytes # (Auto) 1.8 Monocytes # (Auto) 0.7 Eosinophils # (Auto) 0.3 Basophils # (Auto) 0.0 CBC Comment DIFF FINAL Differential Comment Prothrombin Time 11.5 Prothromb Time International 1.0 Ratio Activated Partial 34.5 Thromboplast Time Sodium Level 135 Potassium Level 4.3 Chloride Level 103 Carbon Dioxide Level 23.3 Anion Gap 9 Blood Urea Nitrogen 24 Creatinine 2.00 Estimat Glomerular Filtration 35 Rate Random Glucose 67 Calcium Level 9.8 Blood Type O POSITIVE Antibody Screen NEGATIVE Crossmatch Leukocyte-Reduced Red Blood Cells Blood Bank Comment Result Diagram: 03/27/17 1520 03/27/17 1520 Assessment and Plan Assessment and Plan 56-year-old male with: Symptomatic anemia: Normochromic normocytic anemia. Acute on chronic. Likely secondary to chronic disease that is now worsening. Patient will be transfused 2 units of PRBC. Follow H&H in a.m. Left foot osteomyelitis Diabetic foot ulcer and infected -Patient is on Unasyn outpatient 3 g every 6 hours. We will continue the same here. Outpatient follow-up is advised. Chronic kidney disease: Stable. Continue to monitor Diabetes type 2 Hold glipizide Continue insulin sliding scale with Accu-Cheks. Charcot foot due to diabetes mellitus Patient previously refused surgery or amputation. Hypertension Continue antihypertensives. Anxiety - Lorazepam PRN. DVT prophylaxis: Bilateral SCDs Discussed Condition With Dr. Rod. Patient is adamantly refused to go anywhere but home. Plan to discharge home tomorrow if H&H remains stable. Judit Betancourt MD Mar 27, 2017 19:47
[2017-03-27 20:00] VITALS: BP 138/79; PULSE 77; RESP 18; TEMP 97.5; O2SAT 97
[2017-03-27] MEDS: DOCUSATE SODIUM 50 MG/SENNA 8.6 MG TAB PO SCH (20:42)
[2017-03-27] MEDS: ACETAMINOPHEN/HYDROcodone 325 MG/5 MG TAB PO PRN (20:42)
[2017-03-27] MEDS: SODIUM CHLORIDE 0.9% FLUSH 10 ML FLUSH IV FLUSH SCH (20:45)
[2017-03-27] MEDS: INSULIN ASPART SUPPLEMENTAL SCALE SQ SCH (20:48)
[2017-03-27] MEDS: LISINOPRIL 20 MG TAB PO SCH (21:02)
[2017-03-27 21:15] VITALS: BP 198/82; PULSE 76; RESP 2; TEMP 98.5; O2SAT 95
[2017-03-27] MEDS: AMPICILLIN/SULBAC 3 GM/NS 100 ML IV SCH ×2 (22:52)
[2017-03-28] VITALS (12 sets, daily range): BP systolic 160–219; BP diastolic 70–95; PULSE 56–152; RESP 15–20; TEMP 96–97.6; O2SAT 89–100
[2017-03-28] MEDS: cloNIDine HCL 0.1 MG TAB PO PRN ×2 (00:07→14:06)
[2017-03-28] MEDS: AMPICILLIN/SULBAC 3 GM/NS 100 ML IV SCH ×8 (01:49→20:35)
[2017-03-28] MEDS ORDERED: cloNIDine HCL 0.1 MG TAB PO ONE (02:30)
[2017-03-28] MEDS ORDERED: FUROSEMIDE 40 MG/4 ML VIAL IV PUSH ONE (05:00)
[2017-03-28 06:09] LABS: BASOPHIL % 0.5 % (0.0-2.0); EOSINOPHIL # 0.3 TH/MM3 (0-0.4); EOSINOPHIL % 5.6 % (0.0-4.0); HEMATOCRIT 23.2 % (39.0-51.0); HEMO FLAGS DIFF FINAL; LYMPHOCYTE # 1.8 TH/MM3 (1.0-4.8); MEAN CELL VOLUME 83.4 FL (80.0-100.0); MEAN CORPUSCULAR HEMOGLOBIN 28.3 PG (27.0-34.0); MONO % 13.7 % (0.0-8.0); NEUT % 50.2 % (16.0-70.0); PLATELET COUNT 360 TH/MM3 (150-450); RED BLOOD COUNT 2.79 MIL/MM3 (4.50-5.90); RED CELL DISTRIBUTION WIDTH 15.9 % (11.6-17.2); WHITE BLOOD COUNT 5.9 TH/MM3 (4.0-11.0)
[2017-03-28 06:17] LABS: POTASSIUM 4.1 MEQ/L (3.5-5.1)
[2017-03-28 06:24] LABS: BICARBONATE 24.5 MEQ/L (21.0-32.0)
[2017-03-28] MEDS ORDERED: hydrALAZINE HCL 20 MG/ML VIAL IV PUSH ONE (06:45)
[2017-03-28] MEDS: INSULIN ASPART SUPPLEMENTAL SCALE SQ SCH ×4 (06:53→20:46)
[2017-03-28] MEDS ORDERED: amLODIPine BESYLATE 5 MG TAB PO SCH (09:00)
[2017-03-28] MEDS: DOCUSATE SODIUM 50 MG/SENNA 8.6 MG TAB PO SCH ×2 (09:04→20:46)
[2017-03-28] MEDS: LISINOPRIL 20 MG TAB PO SCH (09:04)
[2017-03-28] MEDS: ACETAMINOPHEN/HYDROcodone 325 MG/5 MG TAB PO PRN ×2 (09:04→20:43)
[2017-03-28] MEDS: ASPIRIN EC 81 MG TABEC PO SCH (09:14)
[2017-03-28] MEDS: SODIUM CHLORIDE 0.9% FLUSH 10 ML FLUSH IV FLUSH SCH ×2 (09:24→20:35)
--- NOTE | 2017-03-28 11:08 | HHI.PR ---
Subjective Remarks H&H slightly improved to 7.9/23.2 after 2 units of PRBC transfusion. Blood pressure markedly uncontrolled today. Patient denies lightheadedness, chest pain, shortness of breath. No bleeding. Objective Vitals Vital Signs Date Time Temp Pulse Resp B/P Pulse Ox O2 Delivery O2 Flow Rate FiO2 03/28/17 06:25 56 20 206/88 100 214/91 Automatic Cuff 03/28/17 05:10 56 03/28/17 04:50 100 03/28/17 04:00 89 Nasal Cannula 3.00 03/28/17 04:00 96.3 152 16 219/95 89 03/28/17 00:15 96.0 96 16 201/89 96 03/28/17 00:12 96.0 96 16 201/89 96 03/27/17 21:15 98.5 76 2 198/82 95 03/27/17 20:00 97.5 77 18 138/79 97 03/27/17 17:50 96.7 87 16 198/86 98 03/27/17 17:12 80 16 192/75 99 03/27/17 15:12 18 98 Room Air 03/27/17 13:41 97.3 78 18 150/73 100 I/O 03/27/17 03/27/17 03/27/17 03/28/17 03/28/17 03/28/17 07:00 15:00 23:00 07:00 15:00 23:00 Output Total 500 ml 1020 ml 950 ml Balance -500 ml -1020 ml -950 ml Output Urine Total 500 ml 1020 ml 950 ml Result Diagram: 03/28/17 0450 03/28/17 0450 Objective Remarks GENERAL: This is a well-nourished, well-developed patient, in no apparent distress. CARDIOVASCULAR: Regular rate and rhythm without murmurs, gallops, or rubs. RESPIRATORY: Clear to auscultation. Breath sounds equal bilaterally. No wheezes , rales, or rhonchi. GASTROINTESTINAL: Abdomen soft, non-tender, nondistended. No hepato-splenomegaly , or palpable masses. No guarding. MUSCULOSKELETAL: Bilateral feet with extensive dressing. Per patient it is changed twice a week. Since the wound is chronic. Dressing was not removed. NEUROLOGICAL: Awake and alert. Normal speech. A/P Assessment and Plan 56-year-old male with: Symptomatic anemia: Normochromic normocytic anemia. Acute on chronic. Likely secondary to chronic disease that is now worsening. Previously had extensive workup with GI with no source of bleeding found. Patient s/p 2 units of PRBC transfusion. H&H slightly improved to 7.9/23.2 - Repeat H&H in a.m. Left foot osteomyelitis Diabetic foot ulcer and infected -Patient is on Unasyn outpatient 3 g every 6 hours. We will continue the same here. Outpatient follow-up is advised. Chronic kidney disease: Stable. Continue to monitor Diabetes type 2 Hold glipizide Continue insulin sliding scale with Accu-Cheks. Charcot foot due to diabetes mellitus Patient previously refused surgery or amputation. Hypertension - Uncontrolled. Status post 1 dose of IV Lasix. Increase Norvasc to 10 mg daily, resume lisinopril. Anxiety - Lorazepam PRN. DVT prophylaxis: Bilateral SCDs Discharge Planning Discuss with patient's PCP Dr. Rod. Patient is adamantly refused to go anywhere but home. Discharge home tomorrow with home health if H&H remains stable. Judit Betancourt MD Mar 28, 2017 11:08
[2017-03-28] MEDS ORDERED: amLODIPine BESYLATE 5 MG TAB PO ONE (14:00)
[2017-03-28] MEDS ORDERED: THIORIDAZINE PO SCH (14:00)
[2017-03-29] VITALS: BP 172/78; PULSE 62; RESP 20; TEMP 97; O2SAT 96
[2017-03-29] MEDS: AMPICILLIN/SULBAC 3 GM/NS 100 ML IV SCH ×6 (02:18→14:30)
[2017-03-29 04:00] VITALS: BP 159/83; PULSE 61; RESP 22; TEMP 97; O2SAT 96
[2017-03-29 06:47] LABS: HEMATOCRIT 25.9 % (39.0-51.0); MEAN CELL VOLUME 83.6 FL (80.0-100.0); MEAN CORPUSCULAR HEMOGLOBIN 27.3 PG (27.0-34.0); MEAN CORPUSCULAR HGB CONC 32.6 % (32.0-36.0); PLATELET COUNT 406 TH/MM3 (150-450); RED CELL DISTRIBUTION WIDTH 16.4 % (11.6-17.2); REVIEW FLAG FINAL; WHITE BLOOD COUNT 6.2 TH/MM3 (4.0-11.0)
[2017-03-29 06:53] LABS: POTASSIUM 3.7 MEQ/L (3.5-5.1)
[2017-03-29 06:56] LABS: BICARBONATE 27.8 MEQ/L (21.0-32.0)
[2017-03-29] MEDS: INSULIN ASPART SUPPLEMENTAL SCALE SQ SCH ×2 (07:00→11:00)
[2017-03-29 08:00] VITALS: BP 161/77; PULSE 64; RESP 18; TEMP 97.6; O2SAT 98
[2017-03-29] MEDS: ASPIRIN EC 81 MG TABEC PO SCH (08:43)
[2017-03-29] MEDS: LISINOPRIL 20 MG TAB PO SCH (08:43)
[2017-03-29] MEDS: DOCUSATE SODIUM 50 MG/SENNA 8.6 MG TAB PO SCH (08:44)
[2017-03-29] MEDS: SODIUM CHLORIDE 0.9% FLUSH 10 ML FLUSH IV FLUSH SCH (08:44)
[2017-03-29] MEDS: DOXAZOSIN MESYLATE 2 MG TAB PO SCH ×2 (11:00→12:45)
[2017-03-29] MEDS ORDERED: AMLO10 PO (11:20)
--- NOTE | 2017-03-29 11:23 | HHI.DCPOC ---
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 Avoid second hand smoke Call the 24-hour hour crisis hotline for domestic abuse at Andry Campoverde MD Mar 29, 2017 11:23
--- NOTE | 2017-03-29 11:32 | HHI.DS ---
Discharge Summary Admission Date Mar 27, 2017 at 15:45 Discharge Date: Mar 29, 2017 Admitting Diagnosis symptomatic anemia (1) Symptomatic anemia ICD Code: D64.9 Diagnosis: Principal (2) Diabetic foot infection ICD Code: E11.69 Diagnosis: Secondary (3) Osteomyelitis ICD Code: M86.9 Diagnosis: Secondary (4) CKD (chronic kidney disease) stage 3, GFR 30-59 ml/min ICD Code: N18.3 Diagnosis: Secondary Procedures None Brief History - From Admission 56-year-old male with a medical history significant for hypertension, anxiety, schizophrenia, CKD, diabetes with ongoing bilateral foot infection on IV antibiotics presented to the emergency room for blood transfusion. I discussed the case with the patient's primary care physician Dr. Rod. Apparently the patient has had recurrent and chronic anemia. He has had extensive workup including endoscopy with no source of bleeding. He is hemoglobin was checked yesterday and it was 6.9. He does report increasing fatigue and mild lightheadedness but denies chest pain or shortness of breath. No heart palpitations. CBC/BMP: 03/29/17 0504 03/29/17 0504 Significant Findings Laboratory Tests Test 03/27/17 03/28/17 03/29/17 15:20 04:50 05:04 Red Blood Count 2.63 MIL/MM3 2.79 MIL/MM3 3.10 MIL/MM3 (4.50-5.90) (4.50-5.90) (4.50-5.90) Hemoglobin 7.3 GM/DL 7.9 GM/DL 8.4 GM/DL (13.0-17.0) (13.0-17.0) (13.0-17.0) Hematocrit 21.8 % 23.2 % 25.9 % (39.0-51.0) (39.0-51.0) (39.0-51.0) Mean Platelet Volume 6.5 FL (7.0-11.0) Monocytes (%) (Auto) 8.5 % (0.0-8.0) 13.7 % (0.0-8.0) Activated Partial 34.5 SEC Thromboplast Time (24.3-30.1) Sodium Level 135 MEQ/L (136-145) Blood Urea Nitrogen 24 MG/DL (7-18) 25 MG/DL (7-18) 26 MG/DL (7-18) Creatinine 2.00 MG/DL 2.10 MG/DL 2.10 MG/DL (0.60-1.30) (0.60-1.30) (0.60-1.30) Estimat Glomerular Filtration 35 ML/MIN (>89) 33 ML/MIN (>89) 33 ML/MIN (>89) Rate Random Glucose 67 MG/DL 112 MG/DL 107 MG/DL (74-106) (74-106) (74-106) Eosinophils (%) (Auto) 5.6 % (0.0-4.0) PE at Discharge GENERAL: This is a well-nourished, well-developed patient, in no apparent distress. CARDIOVASCULAR: Regular rate and rhythm without murmurs, gallops, or rubs. RESPIRATORY: Clear to auscultation. Breath sounds equal bilaterally. No wheezes , rales, or rhonchi. GASTROINTESTINAL: Abdomen soft, non-tender, nondistended. No hepato-splenomegaly , or palpable masses. No guarding. MUSCULOSKELETAL: Bilateral feet with extensive dressing. Per patient it is changed twice a week. Since the wound is chronic. Dressing was not removed. NEUROLOGICAL: Awake and alert. Normal speech. Hospital Course Patient percent with normocytic normochromic anemia. Acute on chronic with a hemoglobin of 7.3. Patient was transfused 2 units of packed red blood cells with appropriate response with a hemoglobin and hematocrit. Dr. Thomson who admitted the patient discussed this case with Dr. Rod who is the patient's primary care physician. As per documented information, the patient has had extensive GI workup without the source of bleeding being identified. Iron studies are consistent with chronic anemia with superimposed iron deficiency anemia. I will discharge patient on oral ferrous sulfate. The patient also has a left foot osteomyelitis and diabetic foot ulcer which is infected for the patient was recently admitted and discharged on IV Unasyn to be given for a total of 6 weeks. This antibiotic was continued during hospital stay and the patient was discharge home with home health to continue IV Unasyn 3 g every 6 hours. Patient has chronic kidney disease stage III. BUN/creatinine was monitored during hospitalization and remained stable. Glipizide was held during admission. And the patient diabetes type 2 was controlled on insulin sliding scale and Accu-Cheks monitored. Patient had refused surgery or amputation previously for osteomyelitis of the foot. Home antihypertensive medications were continued and hospital stay. He was noted that the patient's blood pressure was severely uncontrolled. The patient was started on Cardura 2 mg by mouth daily, however refused to take it. Pt Condition on Discharge: Stable Discharge Disposition: Discharge Home Discharge Time: <= 30 minutes Discharge Instructions DIET: Follow Instructions for: Diabetic Diet, Low Sodium Diet Activities you can perform: Regular-No Restrictions Activities to Avoid: Prolonged Standing, Strenuous Activity Follow up Referrals: PCP Follow-up - 1 Week with Jack Rod MD Consider hematology consultation New Medications: Amlodipine (Norvasc) 10 Mg Tab 10 MG PO DAILY Blood Pressure Management #31 TAB Continued Medications: Ampicillin-Sulbactam Inj (Unasyn Inj) 3 Gm Vial 3 GM IV Q6H Infection Days 40 Ref [address] (Aspirin 81) 81 Mg Tabdr 81 MG PO DAILY Ref 0 TAB Glipizide (Glipizide) 5 Mg Tab 5 MG PO BIDAC Take 30 minutes before a meal Blood Sugar Management #60 Ref 0 TAB Hydrocodone-Acetaminophen (Lortab) 5-325 Mg Tab 1 TAB PO Q6H PRN PAIN #6 TAB Insulin Aspart Inj (Novolog Inj) 100 Unit/Ml Inj 1 UNITS SQ ACHS SLIDING SCALE DM Days 90 BOTTLE Lisinopril (Lisinopril) 20 Mg Tab 20 MG PO DAILY #30 Ref 0 TAB Lorazepam (Ativan) 0.5 Mg Tab 0.5 MG PO Q8H PRN SEVERE ANXIETY OR AGITATION #90 Ref 5 TAB ([Mellaril]) 200 MG PO Discontinued Medications: Amlodipine (Norvasc) 5 Mg Tab 5 MG PO DAILY Blood Pressure Management #30 TAB Hydrocodone-Acetaminophen (Hydrocodone-Acetaminophen) 5-325 mg Tab 1 TAB PO Q6HR PRN PAIN GREATER THAN 5 #20 Ref 0 TAB Andry Campoverde MD Mar 29, 2017 11:32
[2017-03-29] MEDS ORDERED: FERROUS SULFATE 325 MG (65 MG ELEMENTAL IRON) TAB PO SCH (12:00)
--- NOTE | 2017-03-29 13:11 | HHI.FF ---
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 [] May leave port accessed during therapy. [] May leave peripheral site accessed for duration of therapy. [x] If patient has SOB or respiratory distress, check oxygen saturation. If less than 90% or clinical signs of respiratory distress, administer oxygen at 2 L/min. via nasal cannula and notify physician. [x] Anaphylaxis/Reaction orders: * Stop infusion. * Keep IV line open with saline flush. * Notify physician. * Monitor vital signs every 15 minutes until symptoms resolve. * Check Oxygen saturation; Oxygen at 2 L/min. via nasal cannula if less than 90% or clinical signs of respiratory distress. * Administer diphenhydramine (Benadryl) 25 mg IV STAT, (unless patient has received as pre-med). May repeat once, if necessary. * Solu-Cortef 250 mg IVP over 30-60 seconds, use 100 mg vials for each dissolution. * Epinephrine (1mg/1 ml) 0.3 mg subcutaneously or IVP now with any signs of respiratory distress. * Check with physician for new additional pre-med orders if patient is re- challenged or re-treated. [x] May remove PICC line when treatment complete, after confirming with Physician. [x] If the patient is admitted to the hospital, the ED, or transferred via [facility] , complete transfer form including medication reconciliation order sheet. Laboratory Tests Weekly Labs: CBC w/diff, Creatinine, LFT's (Hepatic function test), SED Rate Andry Campoverde MD Mar 29, 2017 13:11
--- NOTE | 2017-03-29 13:25 | HHI.FF ---
Face to Face Verification Diagnosis: (1) Diabetic foot infection (2) Osteomyelitis (3) Symptomatic anemia Physical Therapy Order: Evaluate and Treat Home Health Nursing Order: Wound care and dressing changes Nursing assessment with vital signs IV medication administration I have seen patient Alexei Yanes on 03/29/17. My clinical findings support the need for the requested home health care services because: Need for psychosocial assistance High risk of falls Infection w/ risk of complications Injectable med education/admin I certify that my clinical findings support that this patient is homebound because: Unsafe to leave home unassisted Need for psychosocial assistance Unable to use public transportation Andry Campoverde MD Mar 29, 2017 13:25
--- NOTE | 2017-03-29 16:07 | HHI.DS ---
Discharge Summary Admission Date Mar 27, 2017 at 15:45 Discharge Date: Mar 29, 2017 Admitting Diagnosis symptomatic anemia Brief History - From Admission 56-year-old male with a medical history significant for hypertension, anxiety, schizophrenia, CKD, diabetes with ongoing bilateral foot infection on IV antibiotics presented to the emergency room for blood transfusion. I discussed the case with the patient's primary care physician Dr. Rod. Apparently the patient has had recurrent and chronic anemia. He has had extensive workup including endoscopy with no source of bleeding. He is hemoglobin was checked yesterday and it was 6.9. He does report increasing fatigue and mild lightheadedness but denies chest pain or shortness of breath. No heart palpitations. CBC/BMP: 03/29/17 0504 03/29/17 0504 Significant Findings Laboratory Tests Test 03/27/17 03/28/17 03/29/17 15:20 04:50 05:04 Red Blood Count 2.63 MIL/MM3 2.79 MIL/MM3 3.10 MIL/MM3 (4.50-5.90) (4.50-5.90) (4.50-5.90) Hemoglobin 7.3 GM/DL 7.9 GM/DL 8.4 GM/DL (13.0-17.0) (13.0-17.0) (13.0-17.0) Hematocrit 21.8 % 23.2 % 25.9 % (39.0-51.0) (39.0-51.0) (39.0-51.0) Mean Platelet Volume 6.5 FL (7.0-11.0) Monocytes (%) (Auto) 8.5 % (0.0-8.0) 13.7 % (0.0-8.0) Activated Partial 34.5 SEC Thromboplast Time (24.3-30.1) Sodium Level 135 MEQ/L (136-145) Blood Urea Nitrogen 24 MG/DL (7-18) 25 MG/DL (7-18) 26 MG/DL (7-18) Creatinine 2.00 MG/DL 2.10 MG/DL 2.10 MG/DL (0.60-1.30) (0.60-1.30) (0.60-1.30) Estimat Glomerular Filtration 35 ML/MIN (>89) 33 ML/MIN (>89) 33 ML/MIN (>89) Rate Random Glucose 67 MG/DL 112 MG/DL 107 MG/DL (74-106) (74-106) (74-106) Eosinophils (%) (Auto) 5.6 % (0.0-4.0) PE at Discharge GENERAL: This is a well-nourished, well-developed patient, in no apparent distress. CARDIOVASCULAR: Regular rate and rhythm without murmurs, gallops, or rubs. RESPIRATORY: Clear to auscultation. Breath sounds equal bilaterally. No wheezes , rales, or rhonchi. GASTROINTESTINAL: Abdomen soft, non-tender, nondistended. No hepato-splenomegaly , or palpable masses. No guarding. MUSCULOSKELETAL: Bilateral feet with extensive dressing. Per patient it is changed twice a week. Since the wound is chronic. Dressing was not removed. NEUROLOGICAL: Awake and alert. Normal speech. Pt Condition on Discharge: Stable Discharge Disposition: Discharge Home Discharge Time: <= 30 minutes Discharge Instructions DIET: Follow Instructions for: Diabetic Diet, Low Sodium Diet Activities you can perform: Regular-No Restrictions Activities to Avoid: Prolonged Standing, Strenuous Activity Follow up Referrals: PCP Follow-up - 1 Week with Jack Rod MD Consider hematology consultation New Medications: Amlodipine (Norvasc) 10 Mg Tab 10 MG PO DAILY Blood Pressure Management #31 TAB Continued Medications: Ampicillin-Sulbactam Inj (Unasyn Inj) 3 Gm Vial 3 GM IV Q6H Infection Days 40 Ref [address] (Aspirin 81) 81 Mg Tabdr 81 MG PO DAILY Ref 0 TAB Glipizide (Glipizide) 5 Mg Tab 5 MG PO BIDAC Take 30 minutes before a meal Blood Sugar Management #60 Ref 0 TAB Hydrocodone-Acetaminophen (Lortab) 5-325 Mg Tab 1 TAB PO Q6H PRN PAIN #6 TAB Insulin Aspart Inj (Novolog Inj) 100 Unit/Ml Inj 1 UNITS SQ ACHS SLIDING SCALE DM Days 90 BOTTLE Lisinopril (Lisinopril) 20 Mg Tab 20 MG PO DAILY #30 Ref 0 TAB Lorazepam (Ativan) 0.5 Mg Tab 0.5 MG PO Q8H PRN SEVERE ANXIETY OR AGITATION #90 Ref 5 TAB ([Mellaril]) 200 MG PO Discontinued Medications: Amlodipine (Norvasc) 5 Mg Tab 5 MG PO DAILY Blood Pressure Management #30 TAB Hydrocodone-Acetaminophen (Hydrocodone-Acetaminophen) 5-325 mg Tab 1 TAB PO Q6HR PRN PAIN GREATER THAN 5 #20 Ref 0 TAB Andry Campoverde MD Mar 29, 2017 16:07
== END 2017-03-29 15:36 | disposition home or self-care (01) ==
LOC: PHED 13:32 → PHEDA 15:45 → PH3A 17:21
PROVIDERS: ADMIT Hospitalist; ATTEND Hospitalist
DX: D50.9 Iron deficiency anemia, unspecified (principal); E11.621 Type 2 diabetes mellitus with foot ulcer; L97.529 Non-pressure chronic ulcer of other part of left foot with unspecified severity; E11.610 Type 2 diabetes mellitus with diabetic neuropathic arthropathy; A52.16 Charcot's arthropathy (tabetic); E11.69 Type 2 diabetes mellitus with other specified complication; M86.8X7 Other osteomyelitis, ankle and foot; L08.9 Local infection of the skin and subcutaneous tissue, unspecified; R42 Dizziness and giddiness; R53.1 Weakness; R53.83 Other fatigue; I12.9 Hypertensive chronic kidney disease with stage 1 through stage 4 chronic kidney disease, or unspecified chronic kidney disease; E11.22 Type 2 diabetes mellitus with diabetic chronic kidney disease; N18.3 Chronic kidney disease, stage 3 (moderate); F20.9 Schizophrenia, unspecified; F41.9 Anxiety disorder, unspecified; F32.9 Major depressive disorder, single episode, unspecified; Z79.899 Other long term (current) drug therapy; Z79.82 Long term (current) use of aspirin; Z79.4 Long term (current) use of insulin
CPT/HCPCS: 36430; 80048; 82948; 85025; 85027; 85610; 85730; 86850; 86900; 86901; 86920; 99285; G0378; J0295; J0360; J1815; J1940; J7050; P9016

== ENCOUNTER 2017-08-16 20:08 | Inpatient (IN) | payer MEDICARE, OTHER ==
[~2017-08-16] VITALS: Ht 175.3 cm; Wt 84.8 kg
[~2017-08-16 20:08] MED LIST changes: +AMLO10 PO; -AMLO5 PO; -ASPI-110 PO; +ASPI1TAB57 PO; +GABA300C5 PO; -HYDR-3516 PO; +HYDR-3535 PO; +LISI-515 PO; -LORA-392 PO; +MELLARIL PO; -NOVOLOGSS SQ; -THIO100T2 PO; -UNAS3INJ IV; +VIST50CA PO
[2017-08-16 20:12] VITALS: BP 127/62; PULSE 76; RESP 20; O2SAT 98
[2017-08-16 20:30] VITALS: BP 160/72; PULSE 76; RESP 16; O2SAT 97
[2017-08-16] MEDS ORDERED: SODIUM CHLORIDE 0.9% FLUSH 10 ML FLUSH IVF PRN (20:30)
[2017-08-16] MEDS ORDERED: NITROGLYCERIN 0.4 MG SL 25 TABS/BTL SL ONE (20:30)
[2017-08-16] MEDS ORDERED: GLIP10TA6 PO (20:30)
[2017-08-16] MEDS ORDERED: ASPI-183 PO (20:30)
[2017-08-16] MEDS ORDERED: LISI10TA3 PO (20:30)
[2017-08-16 20:31] VITALS: RESP 18; O2SAT 98
[2017-08-16 20:44] LABS: BASOPHIL # 0.1 TH/MM3 (0-0.2); BASOPHIL % 0.6 % (0.0-2.0); EOSINOPHIL # 0.2 TH/MM3 (0-0.4); EOSINOPHIL % 2.2 % (0.0-4.0); HEMATOCRIT 25.2 % (39.0-51.0); HEMO FLAGS DIFF FINAL; LYMPH % 31.8 % (9.0-44.0); LYMPHOCYTE # 2.9 TH/MM3 (1.0-4.8); MEAN CELL VOLUME 88.9 FL (80.0-100.0); MEAN CORPUSCULAR HEMOGLOBIN 29.5 PG (27.0-34.0); MEAN CORPUSCULAR HGB CONC 33.1 % (32.0-36.0); MONO % 10.8 % (0.0-8.0); NEUT % 54.6 % (16.0-70.0); PLATELET COUNT 406 TH/MM3 (150-450); RED BLOOD COUNT 2.84 MIL/MM3 (4.50-5.90); RED CELL DISTRIBUTION WIDTH 14.1 % (11.6-17.2); WHITE BLOOD COUNT 9.1 TH/MM3 (4.0-11.0)
--- NOTE | 2017-08-16 20:49 | PD ---
HPI Chief Complaint: Chest Pain Time Seen by Provider: 20:27 Travel History International Travel<30 days: No Contact w/Intl Traveler<30days: No Traveled to known affect area: No History of Present Illness HPI 57-year-old male presents with chest pain. He was given aspirin and nitroglycerin prior to arrival. His pain has improved some. He does note drinking alcohol today. He was brought in by ambulance. He states he had a 4 pack of beer. He states that his right foot is bothering him as well. Symptoms have been going on for 3 days. He is a poor historian and this limits history PFSH Past Medical History Hx Anticoagulant Therapy: No Arthritis: No Asthma: No Autoimmune Disease: No Blood Disorders: No Anxiety: Yes Depression: Yes Heart Rhythm Problems: No Cancer: No Cardiovascular Problems: Yes High Cholesterol: No Chemotherapy: No Chest Pain: Yes Congestive Heart Failure: No COPD: No Cerebrovascular Accident: No Diabetes: Yes Patient Takes Glucophage: No Diminished Hearing: No Endocrine: No Gastrointestinal Disorders: No GERD: No Glaucoma: No Genitourinary: No Headaches: No Hepatitis: No Hiatal Hernia: Yes Heparin Induced Thrombocytopen: No Hypertension: Yes Immune Disorder: No Implanted Vascular Access Dvce: No Kidney Stones: No Medical other: Yes (chronic pain) Musculoskeletal: No Neurologic: Yes Psychiatric: Yes (schizoprenia controlled ) Reproductive: No Respiratory: No Migraines: No Myocardial Infarction: No Radiation Therapy: No Renal Failure: No Schizophrenia: Yes Seizures: No Sickle Cell Disease: No Sleep Apnea: No Thyroid Disease: No Ulcer: No Past Surgical History Abdominal Surgery: No AICD: No Appendectomy: No Arteriovenous Shunt: No Cardiac Surgery: No Cholecystectomy: No Ear Surgery: No Endocrine Surgery: No Eye Surgery: No Genitourinary Surgery: No Gynecologic Surgery: No Insulin Pump: No Joint Replacement: No Neurologic Surgery: No Oral Surgery: No Pacemaker: No Thoracic Surgery: No Other Surgery: Yes (R FOOT IND) Social History Alcohol Use: Yes (everyday; 4-16oz beers today (08/16/17)) Tobacco Use: No (QUIT 2012) Substance Use: No Allergies-Medications (Allergen,Severity, Reaction): Coded Allergies: haloperidol (Verified Allergy, Severe, BLINDNESS, 08/16/17) vancomycin (Verified Allergy, Severe, 08/16/17) levofloxacin (Verified Allergy, Intermediate, Cramping, 08/16/17) fluphenazine (Verified Allergy, Unknown, "PARKINSONIAN SHACKS", 08/16/17) codeine (Verified Adverse Reaction, Mild, 08/16/17) "makes me feel funny" but feels ok taking [facility] *MDRO Multi-Drug Resistant Organism (Verified Adverse Reaction, Unknown, VRE, 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 SKIN: Patient has large diabetic ulcer to right foot with swelling he has erythema and warmth noted to the bottom of his foot HEAD: Normocephalic and atraumatic. EYES: No injection or drainage. ENT: No nasal drainage noted. NECK: Supple, trachea midline. CARDIOVASCULAR: Regular rate and rhythm RESPIRATORY: no increased effort. No accessory muscle use. GASTROINTESTINAL: Abdomen soft, non-tender, nondistended. Extremity: Pain with palpation of right foot with concurrent edema and ulcer, neurovascularly intact with palpable dorsalis pedis pulse, compartments soft. NEUROLOGICAL: Awake, moves all extremities and sensory grossly within normal limits. slurred speech. Data Data Last Documented VS Vital Signs Date Time Temp Pulse Resp B/P (MAP) Pulse Ox O2 Delivery O2 Flow Rate FiO2 08/16/17 21:37 08/16/17 20:31 18 98 Room Air 08/16/17 20:30 76 2.00 Orders Orders Electrocardiogram (08/16/17 20:28) Ckmb (Isoenzyme) Profile (08/16/17 20:28) Complete Blood Count With Diff (08/16/17 20:28) Comprehensive Metabolic Panel (08/16/17 20:28) Magnesium (Mg) (08/16/17 20:28) Prothrombin Time / Inr (Pt) (08/16/17 20:28) Act Partial Throm Time (Ptt) (08/16/17 20:28) Troponin I (08/16/17 20:28) Lipase (08/16/17 20:28) Chest, Single Ap (08/16/17 20:28) Ecg Monitoring (08/16/17 20:28) Bilateral Bp Monitoring (08/16/17 20:28) Iv Access Insert/Monitor (08/16/17 20:28) Oximetry (08/16/17 20:28) Sodium Chloride 0.9% Flush (Ns Flush) (08/16/17 20:30) Nitroglycerin Sl (Nitrostat Sl) (08/16/17 20:30) Alcohol (Ethanol) (08/16/17 20:28) Drug Screen, Random Urine (08/16/17 20:28) Foot, Complete (Nxv2akh) (08/16/17 ) Wound Culture And Gram Stain (08/16/17 21:07) Clindamycin Inj (Cleocin Inj) (08/16/17 21:15) Sodium Chlorid 0.9% 500 Ml Inj (Ns 500 M (08/16/17 21:30) Admit Order (Ed Use Only) (08/16/17 22:11) Labs Laboratory Tests Test 08/16/17 20:30 White Blood Count 9.1 TH/MM3 Red Blood Count 2.84 MIL/MM3 Hemoglobin 8.4 GM/DL Hematocrit 25.2 % Mean Corpuscular Volume 88.9 FL Mean Corpuscular Hemoglobin 29.5 PG Mean Corpuscular Hemoglobin Concent 33.1 % Red Cell Distribution Width 14.1 % Platelet Count 406 TH/MM3 Mean Platelet Volume 7.5 FL Neutrophils (%) (Auto) 54.6 % Lymphocytes (%) (Auto) 31.8 % Monocytes (%) (Auto) 10.8 % Eosinophils (%) (Auto) 2.2 % Basophils (%) (Auto) 0.6 % Neutrophils # (Auto) 5.0 TH/MM3 Lymphocytes # (Auto) 2.9 TH/MM3 Monocytes # (Auto) 1.0 TH/MM3 Eosinophils # (Auto) 0.2 TH/MM3 Basophils # (Auto) 0.1 TH/MM3 CBC Comment DIFF FINAL Differential Comment Prothrombin Time 10.1 SEC Prothromb Time International Ratio 1.0 RATIO Activated Partial Thromboplast Time 32.6 SEC Blood Urea Nitrogen 21 MG/DL Creatinine 1.70 MG/DL Random Glucose 97 MG/DL Total Protein 7.5 GM/DL Albumin 2.1 GM/DL Calcium Level 8.3 MG/DL Magnesium Level 1.9 MG/DL Alkaline Phosphatase 546 U/L Aspartate Amino Transf (AST/SGOT) 29 U/L Alanine Aminotransferase (ALT/SGPT) 13 U/L Total Bilirubin 0.2 MG/DL Sodium Level 123 MEQ/L Potassium Level 3.8 MEQ/L Chloride Level 92 MEQ/L Carbon Dioxide Level 21.1 MEQ/L Anion Gap 10 MEQ/L Estimat Glomerular Filtration Rate 42 ML/MIN Total Creatine Kinase 42 U/L Troponin I LESS THAN 0.02 NG/ML Lipase 88 U/L Ethyl Alcohol Level 192 MG/DL MDM Medical Decision Making Medical Screen Exam Complete: Yes Emergency Medical Condition: Yes Medical Record Reviewed: Yes (past history confirmed) Interpretation(s) EKG is sinus rhythm at 80, frequent PVCs, and no STEMI criteria CBC & BMP Diagram 08/16/17 20:30 Total Protein 7.5, Albumin 2.1 L, Calcium Level 8.3 L, Magnesium Level 1.9, Alkaline Phosphatase 546 H, Aspartate Amino Transf (AST/SGOT) 29, Alanine Aminotransferase (ALT/SGPT) 13, Total Bilirubin 0.2 Last 24 hours Impressions Chest X-Ray 08/16/172027 Signed Impressions: Service Date/Time: Wednesday, August 16, 2017 20:54 - CONCLUSION: 1. Basilar atelectasis. Mild cardiomegaly. No effusion or pneumothorax. Marcio Hansen MD Foot X-Ray 08/16/17 0000 Signed Impressions: Service Date/Time: Wednesday, August 16, 2017 20:59 - CONCLUSION: 1. Ulceration in the soft tissues on the lateral and plantar aspect of the right foot. No new bony erosions identified. Advanced Charcot arthropathy similar in appearance to February 17, 2017. Marcio Hansen MD Differential Diagnosis SC, gastritis, pancreatitis, alcohol intoxication Narrative Course Will check blood work, chest x-ray and monitor. Given risk factors he'll need to be admitted, will start clindamycin for diabetic ulcer patient to be admitted, hyponatremia noted, ns given Physician Communication Physician Communication dr mcdermott states to admit to [facility] dr priest agrees to admit Diagnosis Primary Impression: Hyponatremia Additional Impressions: Ulcer of right lower extremity Qualified Codes: L97.919 - Non-pressure chronic ulcer of unspecified part of right lower leg with unspecified severity ETOH abuse Chest pain Qualified Codes: R07.9 - Chest pain, unspecified Admitting Information Admitting Physician Requests: Admit Chaya Fajardo MD Aug 16, 2017 20:49
[2017-08-16 20:50] VITALS: BP 142/70
[2017-08-16 20:58] LABS: APTT (PATIENT) 32.6 SEC (24.3-30.1); PROTHROMBIN TIME - PATIENT 10.1 SEC (9.8-11.6)
[2017-08-16 21:11] LABS: ALKALINE PHOSPHATASE 546 U/L (45-117); ALT (GPT) 13 U/L (12-78); ANION GAP 10 MEQ/L (5-15); AST (GOT) 29 U/L (15-37); BICARBONATE 21.1 MEQ/L (21.0-32.0); BLOOD UREA NITROGEN 21 MG/DL (7-18); CHLORIDE 92 MEQ/L (98-107); GLOMERULAR FILTRATION RATE 42 ML/MIN (>89); MAGNESIUM 1.9 MG/DL (1.5-2.5); POTASSIUM 3.8 MEQ/L (3.5-5.1); TOTAL BILIRUBIN ADULT 0.2 MG/DL (0.2-1.0)
[2017-08-16 21:14] LABS: ALCOHOL 192 MG/DL (0-5); CREATINE KINASE 42 U/L (39-308)
[2017-08-16 21:15] LABS: SODIUM (NA) 123 MEQ/L (136-145)
[2017-08-16] MEDS ORDERED: CLINDAMYCIN INJ 600 MG in SODIUM CHLORIDE 0.9% INJ 100 ML IV ONE (21:15)
--- NOTE | 2017-08-16 21:29 | RADRPT ---
EXAM DATE/TIME: 08/16/2017 20:59 [facility] COMPARISON: FOOT RIGHT COMPLETE ([id number]), February 17, 2017, 20:50. INDICATIONS : Foot pain- infection. MEDICAL HISTORY : Diabetes mellitus type II. Hypertension SURGICAL HISTORY : None. ENCOUNTER: Initial ACUITY: 4 - 6 days PAIN SCORE: 10/10 LOCATION: Right Foot. FINDINGS: There is advanced chronic arthropathy in the right foot similar to February 17 with Charcot arthropathy at the mid joints and a rocker-bottom deformity. There is an ulceration on the lateral plantar aspect o f the foot in the soft tissues. No new bone or erosions identified. CONCLUSION: 1. Ulceration in the soft tissues on the lateral and plantar aspect of the right foot. No new bony er osions identified. Advanced Charcot arthropathy similar in appearance to February 17, 2017. Marcio Hansen MD on August 16, 2017 at 21:25 Board Certified Radiologist. This report was verified electronically.
[2017-08-16] MEDS ORDERED: SODIUM CHLORID 0.9% 500 ML INJ 500 ML IV ONE (21:30)
--- NOTE | 2017-08-16 22:01 | RADRPT ---
EXAM DATE/TIME: 08/16/2017 20:54 [facility] COMPARISON: CHEST SINGLE AP, February 16, 2017, 13:32. INDICATIONS : Chest pain and shortness of breath. MEDICAL HISTORY : Hypertension. Diabetes mellitus type II. SURGICAL HISTORY : None. ENCOUNTER: Initial ACUITY: 4 - 6 days PAIN SCORE: 8/10 LOCATION: Bilateral chest FINDINGS: A single view of the chest demonstrates the lungs to be symmetrically aerated without evidence of mas s, infiltrate or effusion. The cardiomediastinal contours are unremarkable. Osseous structures are intact. CONCLUSION: 1. Basilar atelectasis. Mild cardiomegaly. No effusion or pneumothorax. Marcio Hansen MD on August 16, 2017 at 21:58 Board Certified Radiologist. This report was verified electronically.
[2017-08-16] MEDS ORDERED: SENNOSIDES 8.6 MG TAB PO PRN (22:15)
[2017-08-16] MEDS ORDERED: FLUMAZENIL 0.5 MG/5 ML VIAL IV PUSH PRN (22:15)
[2017-08-16] MEDS ORDERED: LORazepam 1 MG TAB PO PRN (22:15)
[2017-08-16] MEDS ORDERED: MAGNESIUM HYDROXIDE SUSP 30 ML CUP PO PRN (22:15)
[2017-08-16] MEDS ORDERED: LORazepam 2 MG TAB PO PRN (22:15)
[2017-08-16] MEDS ORDERED: DEXTROSE 50% IN WATER 50 ML VIAL(D50) IV PUSH PRN (22:15)
[2017-08-16] MEDS ORDERED: BISACODYL 10 MG SUPP RECTAL PRN (22:15)
[2017-08-16] MEDS ORDERED: GLUCAGON 1 MG/ML VIAL OTHER PRN (22:15)
[2017-08-16] MEDS ORDERED: MORPHINE SULFATE 4 MG/ML INJ IV PUSH PRN (22:15)
[2017-08-16] MEDS ORDERED: ONDANSETRON HCL 4 MG/2 ML VIAL IVP PRN (22:15)
[2017-08-16] MEDS ORDERED: LORazepam 2 MG/ML VIAL IV PUSH PRN ×4 (22:15)
[2017-08-16] MEDS ORDERED: SODIUM CHLORIDE 0.9% FLUSH 10 ML FLUSH IV FLUSH PRN (22:15)
[2017-08-16] MEDS ORDERED: ACETAMINOPHEN 325 MG TAB PO PRN (22:15)
[2017-08-16] MEDS ORDERED: LACTULOSE SYRUP 20 GM/30 ML CUP PO PRN (22:15)
--- NOTE | 2017-08-16 22:19 | HHI.HP ---
HPI Service [facility] Primary Care Physician Jack Rod MD Admission Diagnosis hyponatemia, diabetic ulcer, chest pain, alcohol intoxication Diagnoses: (1) Chest pain Diagnosis: Principal (2) Hyponatremia Diagnosis: Principal (3) Alcohol abuse Diagnosis: Principal (4) Renal insufficiency Diagnosis: Principal (5) Chronic foot ulcer Diagnosis: Principal (6) Rhabdomyolysis Diagnosis: Principal (7) DM (diabetes mellitus) Diagnosis: Principal Travel History International Travel<30 Days: No Contact w/Intl Traveler <30 Da: No Traveled to Known Affected Are: No History of Present Illness This is a 57-year-old male with a PMH of Anxiety, Depression, Schizophrenia HTN , DM, Alcohol Abuse and Chronic Foot Wound who presented to the ER w/ complaints of chest pain starting earlier this afternoon. Denies SOB or cough. S/p NTG and ASA by EMS w/ relief, currently chest pain free. Also c/o right foot pain, has chronic ulcer, following w/ PCP, Dr. Rod and Dr. Staton w[facility]. No fever, chills. On arrival, BP 160/72, HR 76, O2 sat 97% 2L NC. CBC baseline. Na 123. Creatinine 1.70, previously 2.10 on 03/29/17. Trop negative. CPK 546. INR 1.0. Alcohol 192. S/p Clinda in ER. Review of Systems Except as stated in HPI: all other systems reviewed are Neg ROS: 14 point review of systems otherwise negative. Past Family Social History Past Medical History PMH: Anxiety, Depression, Schizophrenia HTN, DM, Alcohol Abuse and Chronic Foot Wound Past Surgical History PAST SURGICAL HISTORY: Right Foot I&D Allergies: Coded Allergies: haloperidol (Verified Allergy, Severe, BLINDNESS, 08/16/17) vancomycin (Verified Allergy, Severe, 08/16/17) levofloxacin (Verified Allergy, Intermediate, Cramping, 08/16/17) fluphenazine (Verified Allergy, Unknown, "PARKINSONIAN SHACKS", 08/16/17) codeine (Verified Adverse Reaction, Mild, 08/16/17) "makes me feel funny" but feels ok taking [facility] *MDRO Multi-Drug Resistant Organism (Verified Adverse Reaction, Unknown, VRE, 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 Social History PAST SOCIAL HISTORY: Positive for alcohol abuse, drinks 4-pack daily. Negative for tobacco or drugs. Physical Exam Vital Signs Vital Signs Date Time Temp Pulse Resp B/P (MAP) Pulse Ox O2 Delivery O2 Flow Rate FiO2 08/16/17 21:37 08/16/17 20:50 142/70 (94) 08/16/17 20:31 18 98 Room Air 08/16/17 20:30 76 16 160/72 (101) 97 Nasal Cannula 2.00 08/16/17 20:12 76 20 127/62 (83) 98 Physical Exam PE: GENERAL: Middle-aged white male in no acute distress. HEENT: PERRLA, EOMI. No scleral icterus or conjunctival pallor. No lid lag or facial droop. CARDIOVASCULAR: Regular rate and rhythm. No obvious murmurs to auscultation. No chest tenderness to palpation. RESPIRATORY: No obvious rhonchi or wheezing. Clear to auscultation. Breath sounds equal bilaterally. GASTROINTESTINAL: Abdomen soft, non-tender, nondistended. BS normal. MUSCULOSKELETAL: Extremities without clubbing, cyanosis, or edema. No obvious deformities. Right foot w/ large ulcer on plantar aspect, surrounding erythema/ edema. NEUROLOGICAL: Awake, alert and oriented x4. No focal neurologic deficits. Moving both upper and lower extremities spontaneously. Laboratory Laboratory Tests Test 08/16/17 20:30 White Blood Count 9.1 Red Blood Count 2.84 Hemoglobin 8.4 Hematocrit 25.2 Mean Corpuscular Volume 88.9 Mean Corpuscular Hemoglobin 29.5 Mean Corpuscular Hemoglobin Concent 33.1 Red Cell Distribution Width 14.1 Platelet Count 406 Mean Platelet Volume 7.5 Neutrophils (%) (Auto) 54.6 Lymphocytes (%) (Auto) 31.8 Monocytes (%) (Auto) 10.8 Eosinophils (%) (Auto) 2.2 Basophils (%) (Auto) 0.6 Neutrophils # (Auto) 5.0 Lymphocytes # (Auto) 2.9 Monocytes # (Auto) 1.0 Eosinophils # (Auto) 0.2 Basophils # (Auto) 0.1 CBC Comment DIFF FINAL Differential Comment Prothrombin Time 10.1 Prothromb Time International Ratio 1.0 Activated Partial Thromboplast Time 32.6 Blood Urea Nitrogen 21 Creatinine 1.70 Random Glucose 97 Total Protein 7.5 Albumin 2.1 Calcium Level 8.3 Magnesium Level 1.9 Alkaline Phosphatase 546 Aspartate Amino Transf (AST/SGOT) 29 Alanine Aminotransferase (ALT/SGPT) 13 Total Bilirubin 0.2 Sodium Level 123 Potassium Level 3.8 Chloride Level 92 Carbon Dioxide Level 21.1 Anion Gap 10 Estimat Glomerular Filtration Rate 42 Total Creatine Kinase 42 Troponin I LESS THAN 0.02 Lipase 88 Ethyl Alcohol Level 192 Date/Time Source Procedure Growth Status 08/16/17 21:00 Wound Foot Gram Stain Pending Received 08/16/17 21:00 Wound Foot Wound Culture Pending Received Result Diagram: 08/16/17202908/16/172029 Dean VTE Risk Assessment Dean VTE Risk Assessment: Mod/High Risk (score >= 2) Caprini Risk Assessment Model Point Value = 1 Point Value = 2 Point Value = 3 Point Value = 5 Age 41-60 Minor surgery BMI > 25 kg/m2 Swollen legs Varicose veins or History of unexplained or recurrent spontaneous Oral contraceptives or hormone replacement Sepsis (< 1 month) Serious lung disease, including pneumonia (< 1 month) Abnormal pulmonary function Acute myocardial infarction Congestive heart failure (< 1 month) History of inflammatory bowel disease Medical patient at bed rest Age 61-74 Arthroscopic surgery Major open surgery (> 45 min) Laparoscopic surgery (> 45 min) Malignancy Confined to bed (> 72 hours) Immobilizing plaster cast Central venous access Age >= 75 History of VTE Family history of VTE Factor V Leiden Prothrombin [id number] Lupus anticoagulant Anticardiolipin antibodies Elevated serum homocysteine Heparin-induced thrombocytopenia Other congenital or acquired thrombophilia Stroke (< 1 month) Elective arthroplasty Hip, pelvis, or leg fracture Acute spinal cord injury (< 1 month) Prophylaxis Regimen Total Risk Factor Score Risk Level Prophylaxis Regimen 0-1 Low Early ambulation 2 Moderate Order ONE of the following: *Sequential Compression Device (SCD) *Heparin 5000 units SQ BID 3-4 Higher Order ONE of the following medications: *Heparin 5000 units SQ TID *Enoxaparin/Lovenox 40 mg SQ daily (WT < 150 kg, CrCl > 30 mL/min) *Enoxaparin/Lovenox 30 mg SQ daily (WT < 150 kg, CrCl > 10-29 mL/min) *Enoxaparin/Lovenox 30 mg SQ BID (WT < 150 kg, CrCl > 30 mL/min) AND/OR *Sequential Compression Device (SCD) 5 or more Highest Order ONE of the following medications: *Heparin 5000 units SQ TID (Preferred with Epidurals) *Enoxaparin/Lovenox 40 mg SQ daily (WT < 150 kg, CrCl > 30 mL/min) *Enoxaparin/Lovenox 30 mg SQ daily (WT < 150 kg, CrCl > 10-29 mL/min) *Enoxaparin/Lovenox 30 mg SQ BID (WT < 150 kg, CrCl > 30 mL/min) AND *Sequential Compression Device (SCD) Assessment and Plan Problem List: (1) Chest pain ICD Code: R07.9 - Chest pain, unspecified (2) Rhabdomyolysis ICD Code: M62.82 - Rhabdomyolysis (3) Hyponatremia ICD Code: E87.1 - Hypo-osmolality and hyponatremia (4) Renal insufficiency ICD Code: N28.9 - Disorder of kidney and ureter, unspecified (5) Chronic foot ulcer ICD Code: L97.509 - Non-pressure chronic ulcer of other part of unspecified foot with unspecified severity (6) DM (diabetes mellitus) ICD Code: E11.9 - Type 2 diabetes mellitus without complications Assessment and Plan A/P: 1. Chest Pain: acute onset of chest pain, s/p NTG/ASA w/ relief, currently chest pain free. Initial trop negative, EKG w/ no acute ischemia. Check serial cardiac enzymes, ASA, Statin, Metoprolol, NTG/Morphine as needed. 2. Rhabdomyolysis: CPK 546, IVF for hydration, check serial CPK. 3. Hyponatremia: Na 123, likely secondary to alcohol abuse/dehydration. IVF, repeat labs, monitor Na 4. Renal Insufficiency: Chronic. Creatinine 1.70, previously 2.10 on . IVF for hydration, repeat labs in a.m. 5. Chronic Foot Ulcer: Right Foot, following w/ Dr. Rod and Dr[facility], s/p Clinda in ER, will continue w/ IV Abx, Wound Consult. 6. DM: Hgb A1c 17.7 on 04/24/16. Check repeat Hgb A1c, Sliding scale w/ Accu- Cheks. 7. Alcohol Abuse: w/ Acute Alcohol Intoxication. Drinks daily, high risk for withdrawal. CIWA, Seizure Precautions, MVT/Thiamine/Folate replacement. 8. DVT Prophylaxis: Heparin sq 9. Social work for d/c planning as needed. 10. Case discussed w/ ER physician at length. Physician Certification 2 Midnight Certification Type: Admission for Inpatient Services Order for Inpatient Services The services are ordered in accordance with Medicare regulations or non- Medicare payer requirements, as applicable. In the case of services not specified as inpatient-only, they are appropriately provided as inpatient services in accordance with the 2-midnight benchmark. Estimated LOS (days): 2 days is the estimated time the patient will need to remain in the hospital, assuming treatment plan goals are met and no additional complications. Post-Hospital Plan: Not yet determined Mikaela Tobin MD Aug 16, 2017 22:19
[2017-08-16] MEDS: SODIUM CHLOR 0.9% 1000 ML INJ 1,000 ML IV SCH (23:02)
[2017-08-16 23:08] VITALS: BP 150/76
[2017-08-17] VITALS (13 sets, daily range): BP systolic 146–188; BP diastolic 66–90; PULSE 61–94; RESP 16–18; TEMP 97.7–98.4; O2SAT 97–99
[2017-08-17] MEDS ORDERED: cloNIDine HCL 0.1 MG TAB PO ONE (00:15)
[2017-08-17] MEDS: THIORIDAZINE HCL 100 MG PO SCH ×3 (00:43→20:54)
[2017-08-17 02:22] LABS: CREATINE KINASE 37 U/L (39-308)
[2017-08-17] MEDS ORDERED: CLINDAMYCIN 600 MG PREMIX 50 ML IV SCH (06:00)
[2017-08-17] MEDS: CLINDAMYCIN INJ 600 MG in SODIUM CHLORIDE 0.9% INJ 50 ML IV SCH ×3 (07:50→20:55)
--- NOTE | 2017-08-17 07:56 | HHI.PR ---
Subjective Remarks Patient in bed. Says she has pain in his legs at the wounds. Says she takes lortab at home and doesn't want morphine. No cramps. No abdominal pain. Denies chest or sob. No nausea able to eat. No fever or chills. No n/v/d/c. Objective Vitals Vital Signs Date Time Temp Pulse Resp B/P (MAP) Pulse Ox O2 Delivery O2 Flow Rate FiO2 08/17/17 04:04 72 08/17/17 04:00 97.9 72 16 178/90 (119) 97 08/17/17 00:04 188/86 (120) 08/17/17 00:00 98.0 76 16 188/86 (120) 99 08/16/17 23:30 Room Air 08/16/17 23:08 150/76 (100) 99 08/16/17 20:50 142/70 (94) 08/16/17 20:31 18 98 Room Air 08/16/17 20:30 76 16 160/72 (101) 97 Nasal Cannula 2.00 08/16/17 20:12 76 20 127/62 (83) 98 I/O 08/16/17 08/16/17 08/16/17 08/17/17 08/17/17 08/17/17 07:00 15:00 23:00 07:00 15:00 23:00 Intake Total 604 ml 608 ml Output Total 2000 ml Balance 604 ml -1392 ml Intake IV Total 604 ml 608 ml Output Urine Total 2000 ml Result Diagram: 08/16/17202908/16/172029 Imaging Last Impressions Chest X-Ray 08/16/172027 Signed Impressions: Service Date/Time: Wednesday, August 16, 2017 20:54 - CONCLUSION: 1. Basilar atelectasis. Mild cardiomegaly. No effusion or pneumothorax. Marcio Hansen MD Foot X-Ray 08/16/17 0000 Signed Impressions: Service Date/Time: Wednesday, August 16, 2017 20:59 - CONCLUSION: 1. Ulceration in the soft tissues on the lateral and plantar aspect of the right foot. No new bony erosions identified. Advanced Charcot arthropathy similar in appearance to February 17, 2017. Marcio Hansen MD Objective Remarks GENERAL: Middle-aged white male in no acute distress. HEENT: PERRLA, EOMI. No scleral icterus or conjunctival pallor. No lid lag or facial droop. CARDIOVASCULAR: Regular rate and rhythm. No obvious murmurs to auscultation. No chest tenderness to palpation. RESPIRATORY: No obvious rhonchi or wheezing. Clear to auscultation. Breath sounds equal bilaterally. GASTROINTESTINAL: Abdomen soft, non-tender, nondistended. BS normal. MUSCULOSKELETAL: Extremities without clubbing, cyanosis, or edema. No obvious deformities. Right foot w/ large ulcer on plantar aspect, surrounding erythema/ edema. NEUROLOGICAL: Awake, alert and oriented x4. No focal neurologic deficits. Moving both upper and lower extremities spontaneously. A/P Problem List: (1) Chest pain ICD Code: R07.9 - Chest pain, unspecified (2) Rhabdomyolysis ICD Code: M62.82 - Rhabdomyolysis (3) Hyponatremia ICD Code: E87.1 - Hypo-osmolality and hyponatremia (4) Renal insufficiency ICD Code: N28.9 - Disorder of kidney and ureter, unspecified (5) Chronic foot ulcer ICD Code: L97.509 - Non-pressure chronic ulcer of other part of unspecified foot with unspecified severity (6) DM (diabetes mellitus) ICD Code: E11.9 - Type 2 diabetes mellitus without complications Assessment and Plan Chest Pain: acute onset of chest pain, s/p NTG/ASA with relief, currently chest pain free. Initial trop negative, EKG w/ no acute ischemia. Serial cardiac enzymes neg, ASA, Statin, Metoprolol, NTG/Morphine as needed. Rhabdomyolysis: CPK 546, IVF for hydration, check serial CPK. Improving. Hyponatremia: Na 123 on admission, likely secondary to alcohol abuse/ dehydration. IVF, repeat labs, monitor Na. Renal Insufficiency: Chronic. Creatinine 1.70, previously 2.10 on 03/29/17. IVF for hydration, monitor. Chronic Foot Ulcer: Right Foot, following w/ Dr. Rod and Dr[facility]on [facility], s/p Clinda in ER, will continue w/ IV Abx, Wound Consult. DM2: Hgb A1c 17.7 on 04/24/16. Repeat Hgb A1c pending . Sliding scale w/ Accu- Cheks. Alcohol Abuse: w/ Acute Alcohol Intoxication. Drinks daily, high risk for withdrawal. CIWA, Seizure Precautions, MVT/Thiamine/Folate replacement. DVT Prophylaxis: Heparin sq Case management consult for d/c planning as needed. Discussed with the patient, nurse Niki Spivey MD Aug 17, 2017 07:56
[2017-08-17] MEDS: INSULIN ASPART SUPPLEMENTAL SCALE SQ SCH ×4 (08:00→21:00)
[2017-08-17] MEDS: SODIUM CHLORIDE 0.9% FLUSH 10 ML FLUSH IV FLUSH SCH ×2 (08:43→20:58)
[2017-08-17] MEDS: PRAVASTATIN SOD 40 MG TAB PO SCH (08:47)
[2017-08-17] MEDS: THIAMINE HCL 100 MG TAB PO SCH (08:47)
[2017-08-17] MEDS: METOPROLOL TARTRATE 25 MG TAB PO SCH ×2 (08:47→20:54)
[2017-08-17] MEDS: FOLIC ACID 1 MG TAB PO SCH (08:47)
[2017-08-17] MEDS: HEPARIN SODIUM - SQ 10,000 UNITS/ML VIAL SQ SCH ×2 (08:48→20:57)
[2017-08-17] MEDS: MULTIVITAMINS/MINERALS THERAPEUTIC TAB PO SCH (08:48)
[2017-08-17] MEDS: ASPIRIN 325 MG TAB PO SCH (08:48)
[2017-08-17] MEDS: DOCUSATE SODIUM 50 MG/SENNA 8.6 MG TAB PO SCH ×2 (08:51→20:54)
[2017-08-17] MEDS ORDERED: HYDR-3583 PO (08:55)
[2017-08-17] MEDS: SODIUM CHLOR 0.9% 1000 ML INJ 1,000 ML IV SCH ×2 (10:19→19:30)
[2017-08-17 12:18] LABS: AUTOMATED NEUTROPHIL # 3.2 TH/MM3 (1.8-7.7); BASOPHIL # 0.1 TH/MM3 (0-0.2); BASOPHIL % 0.9 % (0.0-2.0); EOSINOPHIL # 0.1 TH/MM3 (0-0.4); HEMATOCRIT 24.6 % (39.0-51.0); HEMO FLAGS DIFF FINAL; LYMPH % 27.8 % (9.0-44.0); LYMPHOCYTE # 1.6 TH/MM3 (1.0-4.8); MEAN CELL VOLUME 88.6 FL (80.0-100.0); MEAN CORPUSCULAR HEMOGLOBIN 30.5 PG (27.0-34.0); MEAN CORPUSCULAR HGB CONC 34.4 % (32.0-36.0); MONO % 13.9 % (0.0-8.0); NEUT % 55.4 % (16.0-70.0); PLATELET COUNT 354 TH/MM3 (150-450); RED BLOOD COUNT 2.77 MIL/MM3 (4.50-5.90); RED CELL DISTRIBUTION WIDTH 14.3 % (11.6-17.2); WHITE BLOOD COUNT 5.7 TH/MM3 (4.0-11.0)
[2017-08-17 12:48] LABS: ALT (GPT) 12 U/L (12-78); ANION GAP 9 MEQ/L (5-15); AST (GOT) 28 U/L (15-37); BICARBONATE 21.2 MEQ/L (21.0-32.0); BLOOD UREA NITROGEN 19 MG/DL (7-18); CHLORIDE 99 MEQ/L (98-107); GLOMERULAR FILTRATION RATE 45 ML/MIN (>89); POTASSIUM 4.2 MEQ/L (3.5-5.1); SODIUM (NA) 129 MEQ/L (136-145)
[2017-08-17 12:52] LABS: ALKALINE PHOSPHATASE 516 U/L (45-117); HDL CHOLESTEROL 88.7 MG/DL (40.0-60.0); LDL CHOLESTEROL 50 MG/DL (0-99); TOTAL BILIRUBIN ADULT 0.3 MG/DL (0.2-1.0)
[2017-08-17 12:57] LABS: CREATINE KINASE 56 U/L (39-308)
[2017-08-17] MEDS: ACETAMINOPHEN/HYDROcodone 325 MG/10 MG TAB PO PRN (15:01)
[2017-08-18] VITALS (11 sets, daily range): BP systolic 143–184; BP diastolic 65–80; PULSE 57–69; RESP 16–18; TEMP 97.4–98.2; O2SAT 93–99
[2017-08-18] MEDS: SODIUM CHLOR 0.9% 1000 ML INJ 1,000 ML IV SCH ×3 (04:05→19:00)
[2017-08-18] MEDS: CLINDAMYCIN INJ 600 MG in SODIUM CHLORIDE 0.9% INJ 50 ML IV SCH ×3 (05:35→21:02)
[2017-08-18] MEDS: ACETAMINOPHEN/HYDROcodone 325 MG/10 MG TAB PO PRN ×2 (05:40→17:42)
[2017-08-18 08:05] LABS: AUTOMATED NEUTROPHIL # 2.9 TH/MM3 (1.8-7.7); BASOPHIL % 0.8 % (0.0-2.0); EOSINOPHIL # 0.2 TH/MM3 (0-0.4); EOSINOPHIL % 3.6 % (0.0-4.0); HEMATOCRIT 25.6 % (39.0-51.0); HEMO FLAGS DIFF FINAL; LYMPH % 32.7 % (9.0-44.0); LYMPHOCYTE # 1.9 TH/MM3 (1.0-4.8); MEAN CELL VOLUME 90.3 FL (80.0-100.0); MEAN CORPUSCULAR HEMOGLOBIN 30.7 PG (27.0-34.0); MONO % 11.3 % (0.0-8.0); NEUT % 51.6 % (16.0-70.0); PLATELET COUNT 343 TH/MM3 (150-450); RED BLOOD COUNT 2.84 MIL/MM3 (4.50-5.90); RED CELL DISTRIBUTION WIDTH 14.1 % (11.6-17.2); WHITE BLOOD COUNT 5.7 TH/MM3 (4.0-11.0)
[2017-08-18 08:31] LABS: ANION GAP 10 MEQ/L (5-15); AST (GOT) 22 U/L (15-37); BICARBONATE 20.5 MEQ/L (21.0-32.0); BLOOD UREA NITROGEN 21 MG/DL (7-18); CHLORIDE 104 MEQ/L (98-107); GLOMERULAR FILTRATION RATE 35 ML/MIN (>89); POTASSIUM 3.9 MEQ/L (3.5-5.1); SODIUM (NA) 134 MEQ/L (136-145)
[2017-08-18 08:32] LABS: ALT (GPT) 9 U/L (12-78)
[2017-08-18 08:35] LABS: ALKALINE PHOSPHATASE 466 U/L (45-117); TOTAL BILIRUBIN ADULT 0.2 MG/DL (0.2-1.0)
[2017-08-18] MEDS: PRAVASTATIN SOD 40 MG TAB PO SCH (08:49)
[2017-08-18] MEDS: ASPIRIN 325 MG TAB PO SCH (08:49)
[2017-08-18] MEDS: THIAMINE HCL 100 MG TAB PO SCH (08:49)
[2017-08-18] MEDS: MULTIVITAMINS/MINERALS THERAPEUTIC TAB PO SCH (08:49)
[2017-08-18] MEDS: FOLIC ACID 1 MG TAB PO SCH (08:49)
[2017-08-18] MEDS: THIORIDAZINE HCL 100 MG PO SCH ×2 (08:49→21:02)
[2017-08-18] MEDS: METOPROLOL TARTRATE 25 MG TAB PO SCH ×2 (08:50→21:00)
[2017-08-18] MEDS: DOCUSATE SODIUM 50 MG/SENNA 8.6 MG TAB PO SCH ×2 (08:51→21:02)
[2017-08-18] MEDS: HEPARIN SODIUM - SQ 10,000 UNITS/ML VIAL SQ SCH ×2 (08:51→21:00)
[2017-08-18] MEDS: INSULIN ASPART SUPPLEMENTAL SCALE SQ SCH ×4 (08:54→21:00)
[2017-08-18 09:10] LABS: CREATINE KINASE 19 U/L (39-308)
[2017-08-18 09:37] LABS: HEMOGLOBIN A1a 1.4 %; HEMOGLOBIN A1b 1.4 %; HEMOGLOBIN F 0.4 %; HEMOGLOBIN LA1C 2.9 %; HEMOGLOBIN P3 5.4 %
[2017-08-18] MEDS: SODIUM CHLORIDE 0.9% FLUSH 10 ML FLUSH IV FLUSH SCH ×2 (09:43→21:00)
--- NOTE | 2017-08-18 11:19 | HHI.PR ---
Subjective Remarks Feels better today still with pain but is beter controlled by meds. No fever ro chills. Cramps in his legs and arms. No abdominal pain . No n/v/d/c. Objective Vitals Vital Signs Date Time Temp Pulse Resp B/P (MAP) Pulse Ox O2 Delivery O2 Flow Rate FiO2 08/18/17 08:45 63 08/18/17 08:00 98.1 61 18 170/71 (104) 97 Automatic Cuff 08/18/17 07:00 Room Air 08/18/17 04:00 97.7 64 18 162/73 (102) 97 08/18/17 04:00 65 08/18/17 00:00 97.6 60 18 143/65 (91) 97 08/17/17 23:58 61 08/17/17 20:00 Room Air 08/17/17 20:00 98.0 66 18 153/67 (95) 98 08/17/17 19:47 64 08/17/17 16:01 98.0 65 18 169/76 (107) 97 08/17/17 16:00 61 08/17/17 12:01 98.4 70 18 160/70 (100) 98 08/17/17 12:00 64 I/O 08/17/17 08/17/17 08/17/17 08/18/17 08/18/17 08/18/17 07:00 15:00 23:00 07:00 15:00 23:00 Intake Total 608 ml 446 ml 1434 ml 480 ml 1000 ml Output Total 2000 ml 100 ml 2300 ml Balance -1392 ml 446 ml 1334 ml -1820 ml 1000 ml Intake Oral 380 ml 480 ml IV Total 608 ml 446 ml 1054 ml 1000 ml Output Urine Total 2000 ml 100 ml 2300 ml # Bowel Movements 0 0 Result Diagram: 08/18/1762908/18/17629 Imaging Last Impressions Chest X-Ray 08/16/172027 Signed Impressions: Service Date/Time: Wednesday, August 16, 2017 20:54 - CONCLUSION: 1. Basilar atelectasis. Mild cardiomegaly. No effusion or pneumothorax. Marcio Hansen MD Foot X-Ray 08/16/17 0000 Signed Impressions: Service Date/Time: Wednesday, August 16, 2017 20:59 - CONCLUSION: 1. Ulceration in the soft tissues on the lateral and plantar aspect of the right foot. No new bony erosions identified. Advanced Charcot arthropathy similar in appearance to February 17, 2017. Marcio Hansen MD Objective Remarks GENERAL: Middle-aged white male in no acute distress. HEENT: PERRLA, EOMI. No scleral icterus or conjunctival pallor. No lid lag or facial droop. CARDIOVASCULAR: Regular rate and rhythm. No obvious murmurs to auscultation. No chest tenderness to palpation. RESPIRATORY: No obvious rhonchi or wheezing. Clear to auscultation. Breath sounds equal bilaterally. GASTROINTESTINAL: Abdomen soft, non-tender, nondistended. BS normal. MUSCULOSKELETAL: Extremities without clubbing, cyanosis, or edema. No obvious deformities. Right foot w/ large ulcer on plantar aspect, surrounding erythema/ edema. NEUROLOGICAL: Awake, alert and oriented x4. No focal neurologic deficits. Moving both upper and lower extremities spontaneously. A/P Problem List: (1) Chest pain ICD Code: R07.9 - Chest pain, unspecified (2) Rhabdomyolysis ICD Code: M62.82 - Rhabdomyolysis (3) Hyponatremia ICD Code: E87.1 - Hypo-osmolality and hyponatremia (4) Renal insufficiency ICD Code: N28.9 - Disorder of kidney and ureter, unspecified (5) Chronic foot ulcer ICD Code: L97.509 - Non-pressure chronic ulcer of other part of unspecified foot with unspecified severity (6) DM (diabetes mellitus) ICD Code: E11.9 - Type 2 diabetes mellitus without complications Assessment and Plan Chest Pain: acute onset of chest pain, s/p NTG/ASA with relief, currently chest pain free. Initial trop negative, EKG w/ no acute ischemia. Serial cardiac enzymes neg, ASA, Statin, Metoprolol, NTG/Morphine as needed. Rhabdomyolysis: CPK 546, IVF for hydration, check serial CPK. Improving. Hyponatremia: Na 123 on admission, likely secondary to alcohol abuse/ dehydration. IVF, repeat labs, monitor Na. Renal Insufficiency: Chronic. Creatinine 1.70, previously 2.10 on 03/29/17. IVF for hydration, monitor. Chronic Foot Ulcer: Right Foot, following w/ Dr. Rod and Dr[facility], s/p Clinda in ER, will continue w/ IV Abx, Wound Consult. DM2: Hgb A1c 17.7 on 04/24/16. Repeat Hgb A1c pending . Sliding scale w/ Accu- Cheks. Alcohol Abuse: w/ Acute Alcohol Intoxication. Drinks daily, high risk for withdrawal. CIWA, Seizure Precautions, MVT/Thiamine/Folate replacement. DVT Prophylaxis: Heparin sq Case management consult for d/c planning as needed. Discussed with the patient, nurse Niki Spivey MD Aug 18, 2017 11:19
[2017-08-18] MEDS ORDERED: hydrALAZINE HCL 10 MG TAB PO PRN (13:00)
--- NOTE | 2017-08-18 15:35 | PD.ID.CON ---
History of Present Illness Service ID Consult Requested By Dr Spivey Reason for Consult DFI Primary Care Physician Jack Rod MD Diagnoses: History of Present Illness Pt is knwn to me 57 M with uncntrolled DM Hgb A1c 17.7 as of 04/24/16 and ETHO ism preesnts with c/c of chest pain He also has a chronic diabetic ulceration on right Foot, following w/ Dr. Rod and Dr. [facility], He is s/p Clinda in ER, continue w/ IV Abx, Wound Consult. Pt was treated ib February for GAS bacteremia from his L foot osteomuyeilitis He had a polimicrobial DFI back then His seretec scan back then was cw chronic osteo wuith sinus tract formation He was offered BKA by podiatry, but adamantly refused it and was discharge on buttermaker abx (IV unasyn) Past Family Social History Allergies: Coded Allergies: haloperidol (Verified Allergy, Severe, BLINDNESS, 08/16/17) vancomycin (Verified Allergy, Severe, 08/16/17) levofloxacin (Verified Allergy, Intermediate, Cramping, 08/16/17) fluphenazine (Verified Allergy, Unknown, "[employer]ACKS", 08/16/17) codeine (Verified Adverse Reaction, Mild, 08/16/17) "makes me feel funny" but feels ok taking [place]'s *MDRO Multi-Drug Resistant Organism (Verified Adverse Reaction, Unknown, VRE, 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 Diabetes uncontrolled. Acute renal failure, CKD 2 Schizoprenia Anemia of chronic disease, Iron defc anemia Alcoholism HTN DM Peripheral neuropathy Noncompliance Past Surgical History I&D of foot wound Active Ordered Medications Medications where reviewed in EMR Antibiotics Include: clindamycin Family History HTN Social History Single, lives with parents, drinks daily alcohol (beers), no current smoking Physical Exam Vital Signs Vital Signs Date Time Temp Pulse Resp B/P (MAP) Pulse Ox O2 Delivery O2 Flow Rate FiO2 08/18/17 13:35 155/72 (99) 08/18/17 12:20 180/70 (106) 08/18/17 12:00 98.2 64 18 184/77 (112) 99 12/3/17 08:45 63 08/18/17 08:30 158/70 (99) 08/18/17 08:00 98.1 61 18 170/71 (104) 97 Automatic Cuff 08/18/17 07:00 Room Air 08/18/17 04:00 97.7 64 18 162/73 (102) 97 08/18/17 04:00 65 08/18/17 00:00 97.6 60 18 143/65 (91) 97 08/17/17 23:58 61 08/17/17 20:00 Room Air 08/17/17 20:00 98.0 66 18 153/67 (95) 98 08/17/17 19:47 64 08/17/17 16:01 98.0 65 18 169/76 (107) 97 08/17/17 16:00 61 Physical Exam CONSTITUTIONAL/GENERAL: This is morbidly obese patient, in no apparent distress. SKIN: No jaundice, rashes, or lesions. Skin temperature appropriate. Not diaphoretic. HEAD: Atraumatic. Normocephalic. EYES: Pupils equal and round and reactive. Extraocular motions intact. No scleral icterus. No injection or drainage. Fundi not examined. ENT: Hearing grossly normal. Nose without bleeding or purulent drainage. Oral mucoase without visible erythema, exudates, masses, or lesions. Poor dentition NECK: Trachea midline. Supple, nontender. CARDIOVASCULAR: Regular rate and rhythm without murmurs, gallops, or rubs. No JVD. RESPIRATORY/CHEST: Symmetric, unlabored respirations. Clear to auscultation. Breath sounds equal bilaterally. No wheezes, rales, or rhonchi. GASTROINTESTINAL: Abdomen soft, obese non-tender, nondistended. No hepato- splenomegaly, or palpable masses. No guarding. Bowel sounds present. MUSCULOSKELETAL: Extremities without clubbing, cyanosis, Status Localis: B/l LE marked 4+ edema. + rocker bottom b/l feet deformities R foot ulcer, 2.5 cm , pink with serous drainage undermined probing about 2 cm , minimal serous d/c, + strong anaerobic odor L foot ulcer, - healed Sensation markedly decreased on b/l feet to light touch Pulses non palpable likely 2/2 prominent edema, refill is brisk, perfusion is normal No mottling or clubbing. NEUROLOGICAL: Awake and alert. Follows commands. Normal speech . Moves all extremities. PSYCHIATRIC: No obvious anxiety/depression. no apparent hallucinations or other psychotic thought process. L Laboratory Laboratory Tests Test 08/18/17 06:30 White Blood Count 5.7 Red Blood Count 2.84 Hemoglobin 8.7 Hematocrit 25.6 Mean Corpuscular Volume 90.3 Mean Corpuscular Hemoglobin 30.7 Mean Corpuscular Hemoglobin Concent 34.0 Red Cell Distribution Width 14.1 Platelet Count 343 Mean Platelet Volume 7.8 Neutrophils (%) (Auto) 51.6 Lymphocytes (%) (Auto) 32.7 Monocytes (%) (Auto) 11.3 Eosinophils (%) (Auto) 3.6 Basophils (%) (Auto) 0.8 Neutrophils # (Auto) 2.9 Lymphocytes # (Auto) 1.9 Monocytes # (Auto) 0.6 Eosinophils # (Auto) 0.2 Basophils # (Auto) 0.0 CBC Comment DIFF FINAL Differential Comment Blood Urea Nitrogen 21 Creatinine 1.98 Random Glucose 178 Total Protein 7.2 Albumin 1.9 Calcium Level 8.6 Alkaline Phosphatase 466 Aspartate Amino Transf (AST/SGOT) 22 Alanine Aminotransferase (ALT/SGPT) 9 Total Bilirubin 0.2 Sodium Level 134 Potassium Level 3.9 Chloride Level 104 Carbon Dioxide Level 20.5 Anion Gap 10 Estimat Glomerular Filtration Rate 35 Total Creatine Kinase 19 Date/Time Source Procedure Growth Status 08/16/17 21:00 Wound Foot Gram Stain - Final Resulted 08/16/17 21:00 Wound Culture - Preliminary Strep Not A,B D Gram Negative Vinod Resulted Result Diagram: 08/18/1762908/18/1730 Imaging Last Impressions Chest X-Ray 08/16/172027 Signed Impressions: Service Date/Time: Wednesday, August 16, 2017 20:54 - CONCLUSION: 1. Basilar atelectasis. Mild cardiomegaly. No effusion or pneumothorax. Marcio Hansen MD Foot X-Ray 08/16/17 0000 Signed Impressions: Service Date/Time: Wednesday, August 16, 2017 20:59 - CONCLUSION: 1. Ulceration in the soft tissues on the lateral and plantar aspect of the right foot. No new bony erosions identified. Advanced Charcot arthropathy similar in appearance to February 17, 2017. 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
[2017-08-18] MEDS: cloNIDine HCL 0.1 MG TAB PO PRN (18:07)
--- NOTE | 2017-08-18 23:14 | EKG ---
Date Performed: 08/16/2017 Time Performed: 20:15:31 PTAGE: 57 years EKG: Sinus rhythm WITH FIRST DEGREE AV BLOCK WITH FREQUENT VENTRICULAR PREMATURE COMPLEXES MODERATE INTRAVENTRICULAR C ONDUCTION DELAY PROLONGED QT INTERVAL ABNORMAL ECG PREVIOUS TRACING : 02/16/2017 15.10 Compared to prior tracing no significant change DOCTOR: Tony Cano Interpretating Date/Time 08/18/2017 23:14:06
[2017-08-19] VITALS (11 sets, daily range): BP systolic 150–187; BP diastolic 73–83; PULSE 50–60; RESP 18–20; TEMP 97.4–98.5; O2SAT 97–100
[2017-08-19] MEDS: SODIUM CHLOR 0.9% 1000 ML INJ 1,000 ML IV SCH ×3 (00:05→22:00)
[2017-08-19] MEDS: CLINDAMYCIN INJ 600 MG in SODIUM CHLORIDE 0.9% INJ 50 ML IV SCH ×3 (05:49→21:00)
[2017-08-19] MEDS: INSULIN ASPART SUPPLEMENTAL SCALE SQ SCH ×4 (07:50→20:55)
[2017-08-19] MEDS: THIAMINE HCL 100 MG TAB PO SCH (08:37)
[2017-08-19] MEDS: MULTIVITAMINS/MINERALS THERAPEUTIC TAB PO SCH (08:37)
[2017-08-19] MEDS: PRAVASTATIN SOD 40 MG TAB PO SCH (08:37)
[2017-08-19] MEDS: HEPARIN SODIUM - SQ 10,000 UNITS/ML VIAL SQ SCH ×2 (08:37→20:55)
[2017-08-19] MEDS: SODIUM CHLORIDE 0.9% FLUSH 10 ML FLUSH IV FLUSH SCH ×2 (08:37→21:00)
[2017-08-19] MEDS: DOCUSATE SODIUM 50 MG/SENNA 8.6 MG TAB PO SCH ×2 (08:37→20:53)
[2017-08-19] MEDS: THIORIDAZINE HCL 100 MG PO SCH ×2 (08:37→20:53)
[2017-08-19] MEDS: ASPIRIN 325 MG TAB PO SCH (08:37)
--- NOTE | 2017-08-19 08:37 | HHI.PR ---
Subjective Remarks In the bed appears in nad. Says he has less cramps. No abd pain or n/v/d/c. No fever ro chills. Still with pain in his right leg controlled by meds. Objective Vitals Vital Signs Date Time Temp Pulse Resp B/P (MAP) Pulse Ox O2 Delivery O2 Flow Rate FiO2 08/19/17 04:00 97.7 60 18 170/76 (107) 97 08/19/17 04:00 Room Air 08/19/17 04:00 56 08/19/17 00:00 55 08/19/17 00:00 Room Air 08/19/17 00:00 Room Air 08/19/17 00:00 97.4 56 18 160/74 (102) 98 08/18/17 20:00 Room Air 08/18/17 20:00 97.4 57 16 158/71 (100) 99 08/18/17 20:00 58 08/18/17 17:44 98.0 65 16 175/80 (111) 93 08/18/17 16:00 59 08/18/17 13:35 155/72 (99) 08/18/17 12:20 180/70 (106) 08/18/17 12:00 69 08/18/17 12:00 98.2 64 18 184/77 (112) 99 08/18/17 08:45 63 I/O 08/18/17 08/18/17 08/18/17 08/19/17 08/19/17 08/19/17 07:00 15:00 23:00 07:00 15:00 23:00 Intake Total 480 ml 1000 ml 1614 ml 1280 ml Output Total 2300 ml 500 ml Balance -1820 ml 1000 ml 1114 ml 1280 ml Intake Oral 480 ml 1560 ml 480 ml IV Total 1000 ml 54 ml 800 ml Output Urine Total 2300 ml 500 ml # Voids 2 # Bowel Movements 0 0 0 Result Diagram: 08/18/1762908/18/17629 Imaging Last Impressions Chest X-Ray 08/16/172027 Signed Impressions: Service Date/Time: Wednesday, August 16, 2017 20:54 - CONCLUSION: 1. Basilar atelectasis. Mild cardiomegaly. No effusion or pneumothorax. Marcio Hansen MD Foot X-Ray 08/16/17 0000 Signed Impressions: Service Date/Time: Wednesday, August 16, 2017 20:59 - CONCLUSION: 1. Ulceration in the soft tissues on the lateral and plantar aspect of the right foot. No new bony erosions identified. Advanced Charcot arthropathy similar in appearance to February 17, 2017. Marcio Hansen MD Objective Remarks GENERAL: Middle-aged white male in no acute distress. HEENT: PERRLA, EOMI. No scleral icterus or conjunctival pallor. No lid lag or facial droop. CARDIOVASCULAR: Regular rate and rhythm. No obvious murmurs to auscultation. No chest tenderness to palpation. RESPIRATORY: No obvious rhonchi or wheezing. Clear to auscultation. Breath sounds equal bilaterally. GASTROINTESTINAL: Abdomen soft, non-tender, nondistended. BS normal. MUSCULOSKELETAL: Extremities without clubbing, cyanosis, or edema. No obvious deformities. Right foot w/ large ulcer on plantar aspect, surrounding erythema/ edema. NEUROLOGICAL: Awake, alert and oriented x4. No focal neurologic deficits. Moving both upper and lower extremities spontaneously. A/P Problem List: (1) Chest pain ICD Code: R07.9 - Chest pain, unspecified (2) Rhabdomyolysis ICD Code: M62.82 - Rhabdomyolysis (3) Hyponatremia ICD Code: E87.1 - Hypo-osmolality and hyponatremia (4) Renal insufficiency ICD Code: N28.9 - Disorder of kidney and ureter, unspecified (5) Chronic foot ulcer ICD Code: L97.509 - Non-pressure chronic ulcer of other part of unspecified foot with unspecified severity (6) DM (diabetes mellitus) ICD Code: E11.9 - Type 2 diabetes mellitus without complications Assessment and Plan Chest Pain: Resolved. acute onset of chest pain, s/p NTG/ASA with relief, currently chest pain free. Initial trop negative, EKG w/ no acute ischemia. Serial cardiac enzymes neg, ASA, Statin, Metoprolol, NTG/Morphine as needed. Rhabdomyolysis: CPK 546, IVF for hydration, check serial CPK. Improving. Hyponatremia: Na 123 on admission, likely secondary to alcohol abuse/ dehydration. IVF, repeat labs, monitor Na. Renal Insufficiency: Chronic. Creatinine 1.70, previously 2.10 on 03/29/17. IVF for hydration, monitor. Chronic Foot Ulcer right foot. Osteomyelitis, Charcot continue antibiotic per ID recommendations. Plan for ceretec for further assessment of osteo. On clynda IV abx Right Foot, following w/ Dr. Rod and Dr[facility] , s/p Clinda in ER, will continue w/ IV Abx, Wound Consult. Consult aID appreciate recommendation. DM2: Hgb A1c 17.7 on 04/24/16. Repeat Hgb A1c pending . Sliding scale w/ Accu- Cheks. Alcohol Abuse: w/ Acute Alcohol Intoxication. Drinks daily, high risk for withdrawal. CIWA, Seizure Precautions, MVT/Thiamine/Folate replacement. DVT Prophylaxis: Heparin sq Case management consult for d/c planning as needed. Discussed with the patient, nurse DC plan: Pending ceretec, ID ff. pending improvement and clearance for dc Niki Spivey MD Aug 19, 2017 08:37
[2017-08-19] MEDS: FOLIC ACID 1 MG TAB PO SCH (08:38)
[2017-08-19] MEDS: METOPROLOL TARTRATE 25 MG TAB PO SCH ×2 (08:38→20:53)
[2017-08-19] MEDS: ACETAMINOPHEN/HYDROcodone 325 MG/10 MG TAB PO PRN ×2 (08:39→19:01)
[2017-08-20] VITALS (9 sets, daily range): BP systolic 153–191; BP diastolic 69–86; PULSE 53–64; RESP 16–20; TEMP 97.7–98.1; O2SAT 97–99
[2017-08-20] MEDS: CLINDAMYCIN INJ 600 MG in SODIUM CHLORIDE 0.9% INJ 50 ML IV SCH ×3 (04:57→22:32)
[2017-08-20] MEDS: cloNIDine HCL 0.1 MG TAB PO PRN (05:42)
[2017-08-20 07:35] LABS: AUTOMATED NEUTROPHIL # 4.1 TH/MM3 (1.8-7.7); BASOPHIL % 0.7 % (0.0-2.0); EOSINOPHIL # 0.3 TH/MM3 (0-0.4); EOSINOPHIL % 4.8 % (0.0-4.0); HEMATOCRIT 25.2 % (39.0-51.0); HEMO FLAGS DIFF FINAL; LYMPHOCYTE # 1.8 TH/MM3 (1.0-4.8); MEAN CELL VOLUME 90.9 FL (80.0-100.0); MEAN CORPUSCULAR HEMOGLOBIN 29.8 PG (27.0-34.0); MEAN CORPUSCULAR HGB CONC 32.8 % (32.0-36.0); MONO % 10.1 % (0.0-8.0); NEUT % 58.4 % (16.0-70.0); PLATELET COUNT 401 TH/MM3 (150-450); RED BLOOD COUNT 2.78 MIL/MM3 (4.50-5.90); RED CELL DISTRIBUTION WIDTH 14.5 % (11.6-17.2)
[2017-08-20] MEDS: INSULIN ASPART SUPPLEMENTAL SCALE SQ SCH ×4 (08:00→20:53)
[2017-08-20 08:04] LABS: MAGNESIUM 1.8 MG/DL (1.5-2.5); POTASSIUM 4.4 MEQ/L (3.5-5.1)
[2017-08-20] MEDS: THIORIDAZINE HCL 100 MG PO SCH ×2 (08:56→20:48)
[2017-08-20] MEDS: THIAMINE HCL 100 MG TAB PO SCH (08:56)
[2017-08-20] MEDS: ASPIRIN 325 MG TAB PO SCH (08:56)
[2017-08-20] MEDS: PRAVASTATIN SOD 40 MG TAB PO SCH (08:56)
[2017-08-20] MEDS: DOCUSATE SODIUM 50 MG/SENNA 8.6 MG TAB PO SCH ×2 (08:56→20:49)
[2017-08-20] MEDS: MULTIVITAMINS/MINERALS THERAPEUTIC TAB PO SCH (08:56)
[2017-08-20] MEDS: HEPARIN SODIUM - SQ 10,000 UNITS/ML VIAL SQ SCH ×2 (08:56→20:50)
[2017-08-20] MEDS: METOPROLOL TARTRATE 25 MG TAB PO SCH (08:57)
[2017-08-20] MEDS: SODIUM CHLORIDE 0.9% FLUSH 10 ML FLUSH IV FLUSH SCH ×2 (08:57→20:49)
[2017-08-20] MEDS: FOLIC ACID 1 MG TAB PO SCH (08:57)
[2017-08-20] MEDS: ACETAMINOPHEN/HYDROcodone 325 MG/10 MG TAB PO PRN ×2 (09:22→22:32)
--- NOTE | 2017-08-20 10:40 | HHI.FPPN ---
Subjective Remarks GOING FOR SCAN D/W RN PT C/O LEG PAINS CALLED FOR INCR PAIN MEDS Objective Vitals Vital Signs Date Time Temp Pulse Resp B/P (MAP) Pulse Ox O2 Delivery O2 Flow Rate FiO2 08/20/17 08:00 97.7 59 20 191/82 (118) 97 08/20/17 07:36 Room Air 08/20/17 04:16 53 08/20/17 04:00 97.8 58 20 174/81 (112) 98 08/20/17 04:00 Room Air 08/20/17 00:00 53 08/20/17 00:00 Room Air 08/20/17 00:00 97.8 57 20 153/69 (97) 99 08/19/17 21:00 Room Air 08/19/17 20:10 56 08/19/17 20:00 97.7 58 20 160/79 (106) 100 08/19/17 16:06 50 08/19/17 16:00 97.7 51 19 162/73 (102) 100 08/19/17 12:06 55 08/19/17 12:00 98.5 54 19 150/80 (103) 98 I/O 08/19/17 08/19/17 08/19/17 08/20/17 08/20/17 08/20/17 07:00 15:00 23:00 07:00 15:00 23:00 Intake Total 1280 ml 54 ml 1254 ml 1492 ml Output Total 2400 ml 2400 ml Balance 1280 ml 54 ml -1146 ml -908 ml Intake Oral 480 ml 1200 ml 800 ml IV Total 800 ml 54 ml 54 ml 692 ml Output Urine Total 2400 ml 2400 ml # Voids 2 # Bowel Movements 0 Result Diagram: 08/20/1761208/20/17612 Objective Remarks GENERAL: SKIN: Warm and dry. Large wounds on legs. massive edema of legs HEAD: Atraumatic. Normocephalic. EYES: Pupils equal and round. No scleral icterus. No injection or drainage. ENT: No nasal bleeding or discharge. Mucous membranes pink and moist. NECK: Trachea midline. No JVD. CARDIOVASCULAR: Regular rate and rhythm. RESPIRATORY: No accessory muscle use. Clear to auscultation. Breath sounds equal bilaterally. GASTROINTESTINAL: Abdomen soft, non-tender, nondistended. Hepatic and splenic margins not palpable. MUSCULOSKELETAL: Extremities without clubbing, cyanosis, or edema. No obvious deformities. NEUROLOGICAL: Awake and alert. No obvious cranial nerve deficits. Motor grossly within normal limits. 2 out of 5 muscle strength in the arms and legs. Normal speech. PSYCHIATRIC: Appropriate mood and affect; insight and judgment normal. Medications and IVs Current Medications Medications (Trade) Dose Ordered Sig/Portia Route Start Time Stop Time Status Last Admin (Folate) 1 mg DAILY PO 08/17/17 09:00 08/22/17 08:59 08/20/17 08:57 (Vitamin B1) 100 mg DAILY PO 08/17/17 09:00 08/20/17 08:56 (Theragran M Tab) 1 tab DAILY PO 08/17/17 09:00 08/22/17 08:59 08/20/17 08:56 (Romazicon Inj) 0.2 mg Q1M PRN IV PUSH 08/16/17 22:15 (Ativan) 1 mg Q4H PRN PO 08/16/17 22:15 (Ativan Inj) 1 mg Q4H PRN IV PUSH 08/16/17 22:15 (Ativan) 2 mg Q2H PRN PO 08/16/17 22:15 (Ativan Inj) 2 mg Q2H PRN IV PUSH 08/16/17 22:15 (Ativan Inj) 2 mg Q1H PRN IV PUSH 08/16/17 22:15 (Ativan Inj) 2 mg Q15M PRN IV PUSH 08/16/17 22:15 Sodium Chloride 1,000 ml @ 100 mls/hr Q10H IV 08/16/17 22:05 08/19/17 22:00 (NS Flush) 2 ml UNSCH PRN IV FLUSH 08/16/17 22:15 (NS Flush) 2 ml BID IV FLUSH 08/17/17 09:00 08/19/17 08:37 (Zofran Inj) 4 mg Q6H PRN IVP 08/16/17 22:15 (Heparin Inj) 5,000 units Q12H SQ 08/17/17 09:00 08/20/17 08:56 (Tylenol) 650 mg Q6H PRN PO 08/16/17 22:15 (Lizz-Colace) 1 tab BID PO 08/17/17 09:00 08/20/17 08:56 (Milk Of Magnesia Liq) 30 ml Q12H PRN PO 08/16/17 22:15 (Senokot) 17.2 mg Q12H PRN PO 08/16/17 22:15 (Dulcolax Supp) 10 mg DAILY PRN RECTAL 08/16/17 22:15 (Lactulose Liq) 30 ml DAILY PRN PO 08/16/17 22:15 (D50w (Vial) Inj) 50 ml UNSCH PRN IV PUSH 08/16/17 22:15 (Glucagon Inj) 1 mg UNSCH PRN OTHER 08/16/17 22:15 (NovoLOG SUPPLEMENTAL SCALE) 1 ACHS SLIDING SCALE SQ 08/17/17 08:00 08/19/17 20:55 (Pravachol) 40 mg DAILY PO 08/17/17 09:00 08/20/17 08:56 (Norvasc) 10 mg DAILY PO 08/17/17 09:00 08/20/17 08:56 (Aspirin) 325 mg DAILY PO 08/17/17 09:00 08/20/17 08:56 (Vistaril) 50 mg BID PO 08/17/17 09:00 08/20/17 08:56 Clindamycin Phosphate 600 mg/ Sodium Chloride 54 ml @ 208 mls/hr Q8H IV 08/17/17 06:00 08/20/17 04:57 (Mellaril) 100 mg BID PO 08/17/17 00:30 08/20/17 08:56 (Lopressor) 25 mg Q12HR PO 08/18/17 21:00 08/20/17 08:57 (Apresoline) 10 mg Q6HR PRN PO 08/18/17 13:00 08/18/17 13:02 (Catapres) 0.1 mg Q6H PRN PO 08/18/17 18:00 08/20/17 05:42 ([place] 10-325 Mg) 1 tab Q4H PRN PO 08/19/17 17:30 08/20/17 09:22 A/P Assessment and Plan Assessment and Plan Chest Pain: Resolved. acute onset of chest pain, s/p NTG/ASA with relief, currently chest pain free. Initial trop negative, EKG w/ no acute ischemia. Serial cardiac enzymes neg, ASA, Statin, Metoprolol, NTG/Morphine as needed. Rhabdomyolysis: CPK 546, IVF for hydration, check serial CPK. Improving. Hyponatremia: Na 123 on admission, likely secondary to alcohol abuse/ dehydration. IVF, repeat labs, monitor Na. Renal Insufficiency: Chronic. Creatinine 1.70, previously 2.10 on 03/29/17. IVF for hydration, monitor. Chronic Foot Ulcer right foot. Osteomyelitis, Charcot continue antibiotic per ID recommendations. Plan for ceretec for further assessment of osteo. On clynda IV abx Right Foot, following w/ [facility]. [facility], s/p Clinda in ER, will continue w/ IV Abx, Wound Consult. Consult aID appreciate recommendation. DM2: Hgb A1c 17.7 on 04/24/16. Repeat Hgb A1c pending . Sliding scale w/ Accu- Cheks. Alcohol Abuse: w/ Acute Alcohol Intoxication. Drinks daily, high risk for withdrawal. CIWA, Seizure Precautions, MVT/Thiamine/Folate replacement. DVT Prophylaxis: Heparin sq Case management consult for d/c planning as needed. DC plan: Pending ceretec, ID ff. pending improvement and clearance for dc Jack Rod MD Aug 20, 2017 10:40
--- NOTE | 2017-08-20 11:48 | RADRPT ---
EXAM DATE/TIME: 08/19/2017 14:25 [facility] COMPARISON: WBC SPECT CERETEC, February 18, 2017, 12:35. INDICATIONS : Right foot abcess on plantar mid foot. DOSE: 20.1 mCi Tc99m Ceretec labeled white blood cells IV SPECT IMAGIN hrs, 20 hrs IMAGNG: SPECT/CT imaging with fusion was performed. RADIATION DOSE: 5.85 CTDIvol (mGy) ; Multiple Day Study MEDICAL HISTORY : Hypertension. Diabetes mellitus type 2. SURGICAL HISTORY : Right foot debridement. ENCOUNTER: Initial ACUITY: 4 - 6 months PAIN SCALE: 0/10 LOCATION: Right Foot. TECHNIQUE: Following the in vitro labeling of autologous white cells and reinjection, whole body scan was perfor med at the specified times. SPECT imaging was performed at the specified time in sagittal, axial and coronal planes. Attenuation correction was performed with the computed tomography and both the atten uation correction and non-attenuation corrected data sets were reviewed. FINDINGS: Minimal uptake process plantar surface right foot without bony involvement. Correlated CT images [place] w no bony involvement. Marked pes planus deformity is evident with diabetic flatfoot deformity. CONCLUSION: Persistent uptake plantar surface as described previously. Afshin Yanes MD FACR on August 20, 2017 at 11:44 Board Certified Radiologist. This report was verified electronically.
[2017-08-20] MEDS: SODIUM CHLOR 0.9% 1000 ML INJ 1,000 ML IV SCH ×2 (15:57→23:36)
[2017-08-20] MEDS: hydrALAZINE HCL 50 MG TAB PO SCH (20:49)
[2017-08-21 00:25] VITALS: BP 158/77; PULSE 54; RESP 16; TEMP 97.3; O2SAT 96
[2017-08-21 04:14] VITALS: PULSE 54
[2017-08-21 05:05] VITALS: BP 160/77; PULSE 87; RESP 16; TEMP 97.4; O2SAT 97
[2017-08-21] MEDS: CLINDAMYCIN INJ 600 MG in SODIUM CHLORIDE 0.9% INJ 50 ML IV SCH (06:05)
[2017-08-21] MEDS: SODIUM CHLORIDE 0.9% FLUSH 10 ML FLUSH IV FLUSH SCH (07:41)
[2017-08-21] MEDS: INSULIN ASPART SUPPLEMENTAL SCALE SQ SCH (07:41)
[2017-08-21] MEDS: THIORIDAZINE HCL 100 MG PO SCH (07:46)
[2017-08-21] MEDS: FOLIC ACID 1 MG TAB PO SCH (07:46)
[2017-08-21] MEDS: ASPIRIN 325 MG TAB PO SCH (07:46)
[2017-08-21] MEDS: hydrALAZINE HCL 50 MG TAB PO SCH (07:46)
[2017-08-21] MEDS: THIAMINE HCL 100 MG TAB PO SCH (07:47)
[2017-08-21] MEDS: MULTIVITAMINS/MINERALS THERAPEUTIC TAB PO SCH (07:47)
[2017-08-21] MEDS: PRAVASTATIN SOD 40 MG TAB PO SCH (07:47)
[2017-08-21] MEDS: DOCUSATE SODIUM 50 MG/SENNA 8.6 MG TAB PO SCH (07:47)
[2017-08-21] MEDS: HEPARIN SODIUM - SQ 10,000 UNITS/ML VIAL SQ SCH (07:48)
[2017-08-21 08:01] VITALS: BP 177/79; PULSE 56; RESP 18; TEMP 98.7; O2SAT 95
[2017-08-21 09:37] VITALS: PULSE 57
--- NOTE | 2017-08-21 11:05 | HHI.DS ---
Discharge Summary Admission Date Aug 16, 2017 at 22:13 Discharge Date: Aug 21, 2017 Admitting Diagnosis hyponatemia, diabetic ulcer, chest pain, alcohol intoxication (1) Chest pain ICD Codes: R07.9 - Chest pain, unspecified (2) Rhabdomyolysis ICD Codes: M62.82 - Rhabdomyolysis (3) Hyponatremia ICD Codes: E87.1 - Hypo-osmolality and hyponatremia (4) Renal insufficiency ICD Codes: N28.9 - Disorder of kidney and ureter, unspecified (5) Chronic foot ulcer ICD Codes: L97.509 - Non-pressure chronic ulcer of other part of unspecified foot with unspecified severity (6) DM (diabetes mellitus) ICD Codes: E11.9 - Type 2 diabetes mellitus without complications CBC/BMP: 08/20/17 0613 08/20/17 0613 Significant Findings Laboratory Tests Test 08/20/17 06:13 Red Blood Count 2.78 MIL/MM3 (4.50-5.90) Hemoglobin 8.3 GM/DL (13.0-17.0) Hematocrit 25.2 % (39.0-51.0) Monocytes (%) (Auto) 10.1 % (0.0-8.0) Eosinophils (%) (Auto) 4.8 % (0.0-4.0) Blood Urea Nitrogen 20 MG/DL (7-18) Creatinine 1.73 MG/DL (0.60-1.30) Chloride Level 108 MEQ/L (98-107) Estimat Glomerular Filtration Rate 41 ML/MIN (>89) Discharge Instructions Additional Information PT SIGNED OUT AMA. D/W DR TAVERAS, LIKELY DOES NOT NEED ABX, YET PO ABX POSSIBLY BUT PT AMA, WILL REACH TO HIM FOR OUTPATIENT FOLLOWUP.... Jack Rod MD Aug 21, 2017 11:05
== END 2017-08-21 10:46 | disposition left against medical advice (07) | DRG 638 ==
LOC: NEPC 20:08 → NEDA 22:13 → N04A 23:19
PROVIDERS: ADMIT Family Medicine; ATTEND Family Medicine
DX: E11.69 Type 2 diabetes mellitus with other specified complication (principal); E87.1 Hypo-osmolality and hyponatremia; M86.671 Other chronic osteomyelitis, right ankle and foot; M62.82 Rhabdomyolysis; E11.621 Type 2 diabetes mellitus with foot ulcer; E11.22 Type 2 diabetes mellitus with diabetic chronic kidney disease; E86.0 Dehydration; E11.42 Type 2 diabetes mellitus with diabetic polyneuropathy; F10.120 Alcohol abuse with intoxication, uncomplicated; Y90.6 Blood alcohol level of 120-199 mg/100 ml; N18.2 Chronic kidney disease, stage 2 (mild); I12.9 Hypertensive chronic kidney disease with stage 1 through stage 4 chronic kidney disease, or unspecified chronic kidney disease; L97.519 Non-pressure chronic ulcer of other part of right foot with unspecified severity; Z79.84 Long term (current) use of oral hypoglycemic drugs; R07.9 Chest pain, unspecified; F32.9 Major depressive disorder, single episode, unspecified; F41.9 Anxiety disorder, unspecified; G89.29 Other chronic pain; F20.9 Schizophrenia, unspecified; Z87.891 Personal history of nicotine dependence; E11.610 Type 2 diabetes mellitus with diabetic neuropathic arthropathy
CPT/HCPCS: 71010; 73630; 78807; 78999; 80048; 80053; 80061; 80307; 82550; 82948; 83036; 83690; 83735; 84484; 85025; 85610; 85730; 87070; 87077; 87186; 87205; 93005; 96365; A9569; J1644; J1815; J7030; J7040

== ENCOUNTER 2017-11-24 11:52 | Inpatient (IN) | payer MEDICARE, OTHER ==
[~2017-11-24] VITALS: Ht 177.8 cm; Wt 100.0 kg
[~2017-11-24 11:52] MED LIST changes: +ASPI-183 PO; -ASPI1TAB57 PO; +GLIP10TA6 PO; -GLIP5TAB8 PO; -HYDR-3533 PO; -HYDR-3535 PO; +HYDR-3583 PO; -LISI-515 PO; +LISI10TA3 PO
[2017-11-24 12:18] VITALS: BP 132/61; PULSE 88; RESP 16; TEMP 97.6; O2SAT 99
--- NOTE | 2017-11-24 13:52 | RADRPT ---
EXAM DATE/TIME: 11/24/2017 13:29 [facility] COMPARISON: No previous studies available for comparison. INDICATIONS : Pain from fall on left side. MEDICAL HISTORY : Hypertension. Diabetes mellitus type II. SURGICAL HISTORY : None. ENCOUNTER: Initial ACUITY: 1 day PAIN SCORE: 7/10 LOCATION: Left hip. FINDINGS: There is a nondisplaced hairline fracture through the left superior pubic ramus extending into the le ft pubic bone. No fracture the left hip. Mild osteoarthritis of the left hip. CONCLUSION: 1. Nondisplaced fracture left superior pubic ramus extending into the left pubic bone. Marcio Hansen MD on November 24, 2017 at 13:46 Board Certified Radiologist. This report was verified electronically.
--- NOTE | 2017-11-24 14:58 | PD ---
HPI . Groin pain Chief Complaint: Abdominal Pain Time Seen by Provider: 13:08 Travel History International Travel<30 days: No Contact w/Intl Traveler<30days: No Traveled to known affect area: No History of Present Illness HPI This patient presents to us with a chief complaint of left groin pain. He states that he normally ambulates with a walker. He normally lives at home with his mother. However, his mother has recently been hospitalized and is now staying with his sister in [place]. Thus, he has had no one to help him at home for the last week or so. He states that he was attempting to get up out of a chair to the standing position when he inadvertently fell forward striking his left anterior pelvic area on the floor. He comes in now complaining with pain in that area since that time. Pain is exacerbated by trying to walk. Pain is rated 7/10. In addition, the patient has been receiving hyperbaric therapy for a wound on the plantar aspect of his right foot. That has been ongoing therapy for quite some time now. However, his mother has not been home to take him for his treatments so he has not been receiving the hyperbaric therapy as directed. Furthermore, he has developed increasing swelling of both lower extremities since his mother has not been home. He denies any difficulty breathing or chest pain. He has not been running any fever. PFSH Past Medical History Hx Anticoagulant Therapy: No Arthritis: No Asthma: No Autoimmune Disease: No Blood Disorders: No Anxiety: Yes Depression: Yes Heart Rhythm Problems: No Cancer: No Cardiovascular Problems: Yes High Cholesterol: No Chemotherapy: No Chest Pain: Yes Congestive Heart Failure: No COPD: No Cerebrovascular Accident: No Diabetes: Yes Patient Takes Glucophage: No (GLIPIZED) Diminished Hearing: No Endocrine: No Gastrointestinal Disorders: No GERD: No Glaucoma: No Genitourinary: No Headaches: No Hepatitis: No Hiatal Hernia: Yes Heparin Induced Thrombocytopen: No Hypertension: Yes Immune Disorder: No Implanted Vascular Access Dvce: No Kidney Stones: No Musculoskeletal: No Neurologic: Yes Psychiatric: Yes (schizoprenia controlled ) Reproductive: No Respiratory: No Immunizations Current: No Migraines: No Myocardial Infarction: No Radiation Therapy: No Renal Failure: No Schizophrenia: Yes Seizures: No Sickle Cell Disease: No Sleep Apnea: No Thyroid Disease: No Ulcer: No Past Surgical History Abdominal Surgery: No AICD: No Appendectomy: No Arteriovenous Shunt: No Cardiac Surgery: No Cholecystectomy: No Ear Surgery: No Endocrine Surgery: No Eye Surgery: No Genitourinary Surgery: No Gynecologic Surgery: No Insulin Pump: No Joint Replacement: No Neurologic Surgery: No Oral Surgery: No Pacemaker: No Thoracic Surgery: No Other Surgery: Yes (R FOOT IND) Social History Alcohol Use: Yes (everyday; 4-16oz beers today (08/16/17)) Tobacco Use: No (QUIT 2012) Substance Use: No Allergies-Medications (Allergen,Severity, Reaction): Coded Allergies: haloperidol (Verified Allergy, Severe, BLINDNESS, 11/24/17) vancomycin (Verified Allergy, Severe, 11/24/17) levofloxacin (Verified Allergy, Intermediate, Cramping, 11/24/17) fluphenazine (Verified Allergy, Unknown, "PARKINSONIAN SHACKS", 11/24/17) codeine (Verified Adverse Reaction, Mild, 11/24/17) "makes me feel funny" but feels ok taking [place]'s *MDRO Multi-Drug Resistant Organism (Verified Adverse Reaction, Unknown, VRE, 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 Reported Meds & Prescriptions Reported Meds & Active Scripts Active Hydrocodone-Acetaminophen 10-325 mg Tab 1 Tab PO BID PRN Vistaril (Hydroxyzine Pamoate) 50 Mg Cap 50 Mg PO BID Norvasc (Amlodipine Besylate) 10 Mg Tab 10 Mg PO DAILY Reported Glipizide 10 Mg Tab 10 Mg PO BIDAC Lisinopril 10 Mg Tab 10 Mg PO DAILY Aspirin 325 Mg Tab 325 Mg PO DAILY [Mellaril] 100 Mg PO BID Review of Systems Except as stated in HPI: all other systems reviewed are Neg General / Constitutional: No: Fever, Chills Cardiovascular: No: Chest Pain or Discomfort Respiratory: No: Shortness of Breath Musculoskeletal: Positive: Edema Skin: Positive Other (Right plantar wound) Physical Exam Narrative GENERAL: Obese, disheveled man who does not appear to be in any acute distress SKIN: warm/dry. He has a plantar ulcer on the right foot which is approximately 3 cm in diameter. It is also about 1.5 cm deep. However, there is no purulent drainage. The surrounding skin is not red or hot. HEAD: Normocephalic. Atraumatic. EYES: Pupils equal and round. No scleral icterus. No injection or drainage. ENT: No nasal bleeding or discharge. Mucous membranes pink and moist. NECK: Trachea midline. Full range of motion without pain.. CARDIOVASCULAR: Regular rate and rhythm. RESPIRATORY: No accessory muscle use. Clear to auscultation. Breath sounds equal bilaterally. GASTROINTESTINAL: Abdomen soft. Nontender. Bowel sounds present. Nondistended. Delete MUSCULOSKELETAL: Left hip is tender in the groin. No tenderness over the greater trochanter. No pain with logrolling. No shortening or malrotation. Bilateral 4+ pretibial pitting edema. NEUROLOGICAL: Awake and alert. No obvious cranial nerve deficits. Motor grossly within normal limits. Normal speech. PSYCHIATRIC: Appropriate mood and affect; insight and judgment normal. Data Data Last Documented VS Vital Signs Date Time Temp Pulse Resp B/P (MAP) Pulse Ox O2 Delivery O2 Flow Rate FiO2 11/24/17 12:18 97.6 88 16 132/61 (84) 99 Orders Orders Hip, Uni(Ap&Lat) W Ap Pelvis (11/24/17 13:14) B-Type Natriuretic Peptide (11/24/17 14:13) Basic Metabolic Panel (Bmp) (11/24/17 14:13) Complete Blood Count With Diff (11/24/17 14:13) Urinalysis - C+S If Indicated (11/24/17 14:13) Chest, Single Ap (11/24/17 14:13) Admit Order (Ed Use Only) (11/24/17 ) Vital Signs (Adult) Q4H (11/24/17 17:17) Diet Heart Healthy (11/24/17 Dinner) Labs Laboratory Tests Test 11/24/17 15:00 11/24/17 15:15 White Blood Count 6.0 TH/MM3 Red Blood Count 2.59 MIL/MM3 Hemoglobin 8.2 GM/DL Hematocrit 23.7 % Mean Corpuscular Volume 91.3 FL Mean Corpuscular Hemoglobin 31.7 PG Mean Corpuscular Hemoglobin Concent 34.7 % Red Cell Distribution Width 13.1 % Platelet Count 233 TH/MM3 Mean Platelet Volume 8.7 FL Neutrophils (%) (Auto) 75.3 % Lymphocytes (%) (Auto) 14.0 % Monocytes (%) (Auto) 8.8 % Eosinophils (%) (Auto) 1.1 % Basophils (%) (Auto) 0.8 % Neutrophils # (Auto) 4.5 TH/MM3 Lymphocytes # (Auto) 0.8 TH/MM3 Monocytes # (Auto) 0.5 TH/MM3 Eosinophils # (Auto) 0.1 TH/MM3 Basophils # (Auto) 0.1 TH/MM3 CBC Comment DIFF FINAL Differential Comment Blood Urea Nitrogen 40 MG/DL Creatinine 2.79 MG/DL Random Glucose 83 MG/DL Calcium Level 9.5 MG/DL Sodium Level 130 MEQ/L Potassium Level 4.9 MEQ/L Chloride Level 99 MEQ/L Carbon Dioxide Level 21.5 MEQ/L Anion Gap 10 MEQ/L Estimat Glomerular Filtration Rate 24 ML/MIN Urine Color LIGHT-YELLOW Urine Turbidity CLEAR Urine pH 5.5 Urine Specific [place] 1.007 Urine Protein 30 mg/dL Urine Glucose (UA) NEG mg/dL Urine Ketones NEG mg/dL Urine Occult Blood NEG Urine Nitrite NEG Urine Bilirubin NEG Urine Urobilinogen LESS THAN 2.0 MG/DL Urine Leukocyte Esterase NEG Urine WBC 1 /hpf Urine Squamous Epithelial Cells 3 /hpf Urine Hyaline Casts 4 /lpf Microscopic Urinalysis Comment CULT NOT INDICATED MDM Medical Decision Making Medical Screen Exam Complete: Yes Emergency Medical Condition: Yes Medical Record Reviewed: Yes (Medical history is significant for diabetes, hypertension, alcoholism, chronic renal insufficiency, obesity and this chronic right foot wound) Differential Diagnosis Differential diagnosis of extremity trauma includes but is not limited to fracture, sprain or strain, dislocation, contusion Narrative Course The patient initially presented here for evaluation of left hip pain following a fall several days ago. An x-ray was ordered. Last Impressions Hip and Pelvis X-Ray 11/24/17 1314 Signed Impressions: Service Date/Time: Friday, November 24, 2017 13:29 - CONCLUSION: 1. Nondisplaced fracture left superior pubic ramus extending into the left pubic bone. Marcio Hansen MD The x-ray was independently reviewed by me. It is pretty obvious that this patient is not going to be able to take care of himself at home. He normally has his mother at home to take care of him but she is currently staying with a sister in [place] because of her recent illness. I have ordered basic labs. I will then consult [facility] for admission. CBC & BMP Diagram 11/24/17 15:00 Calcium Level 9.5 UA neg. Diagnosis Primary Impression: Pelvic fracture Qualified Codes: S32.512A - Fracture of superior rim of left pubis, initial encounter for closed fracture Additional Impressions: Peripheral edema Plantar ulcer of right foot Qualified Codes: L97.513 - Non-pressure chronic ulcer of other part of right foot with necrosis of muscle Admitting Information Admitting Physician Requests: Admit Condition: Stable Rosy Hodge MD Nov 24, 2017 14:58
--- NOTE | 2017-11-24 15:03 | RADRPT ---
EXAM DATE/TIME: 11/24/2017 14:20 [place] COMPARISON: CHEST SINGLE AP, August 16, 2017, 20:54. INDICATIONS : Short of Breath MEDICAL HISTORY : Hypertension. Diabetes mellitus type II. SURGICAL HISTORY : None. ENCOUNTER: Initial ACUITY: 1 day PAIN SCORE: 0/10 LOCATION: chest FINDINGS: A single view of the chest demonstrates the lungs to be symmetrically aerated without evidence of mas s, infiltrate or effusion. The cardiomediastinal contours are mildly prominent. Osseous structures a re intact. CONCLUSION: 1. Cardiomegaly without focal consolidation or significant effusion. Marcio Hansen MD on November 24, 2017 at 15:00 Board Certified Radiologist. This report was verified electronically.
[2017-11-24 15:33] LABS: AUTOMATED NEUTROPHIL # 4.5 TH/MM3 (1.8-7.7); BASOPHIL # 0.1 TH/MM3 (0-0.2); BASOPHIL % 0.8 % (0.0-2.0); EOSINOPHIL # 0.1 TH/MM3 (0-0.4); EOSINOPHIL % 1.1 % (0.0-4.0); HEMATOCRIT 23.7 % (39.0-51.0); HEMOGLOBIN 8.2 GM/DL (13.0-17.0); LYMPHOCYTE # 0.8 TH/MM3 (1.0-4.8); MEAN CELL VOLUME 91.3 FL (80.0-100.0); MEAN CORPUSCULAR HEMOGLOBIN 31.7 PG (27.0-34.0); MEAN CORPUSCULAR HGB CONC 34.7 % (32.0-36.0); MEAN PLATELET VOLUME 8.7 FL (7.0-11.0); MONO % 8.8 % (0.0-8.0); MONOCYTE # 0.5 TH/MM3 (0-0.9); NEUT % 75.3 % (16.0-70.0); PLATELET COUNT 233 TH/MM3 (150-450); RED BLOOD COUNT 2.59 MIL/MM3 (4.50-5.90); RED CELL DISTRIBUTION WIDTH 13.1 % (11.6-17.2)
[2017-11-24 15:50] LABS: BILIRUBIN, URINE NEG (NEG); BLOOD, URINE NEG (NEG); GLUCOSE,URINE NEG (NEG); HYALINE CAST, URINE 4 /lpf (RARE); KETONE, URINE NEG (NEG); NITRITE,URINE NEG (NEG); PH, URINE 5.5 (5.0-8.5); SQUAMOUS EPITHELIAL CELL URINE 3 /hpf (0-5); URINE COLOR LIGHT-YELLOW (YELLW/STRAW); URINE LEUKOCYTE ESTERASE NEG (NEG)
[2017-11-24 16:00] LABS: BICARBONATE 21.5 MEQ/L (21.0-32.0); CALCIUM 9.5 MG/DL (8.5-10.1); CREATININE 2.79 MG/DL (0.60-1.30)
--- NOTE | 2017-11-24 17:28 | HHI.HP ---
[facility] Jack Rod MD Admission Diagnosis Left pelvic fracture, peripheral edema, right plantar foot ulcer Diagnoses: Travel History International Travel<30 Days: No Contact w/Intl Traveler <30 Da: No Traveled to Known Affected Are: No History of Present Illness 57 year old male with DM, HTN, HLD, PAD, chronic right plantar ulcer, and schizophrenia admitted for pelvic fracture and bilateral lower extremity cellulitis. History somewhat limited as patient is a poor historian. He normally ambulates with a walker and three days ago he states his boots with "metal studs" got caught onto something and he lost his balance and fell. He felt pain in his left groin but did not seek care. Pain is exacerbated by ambulating. He lives with his parents and his mother primarily helps take care of him but she was recently hospitalized and had to move in with the patient's sister in [place] for the past week. In that time the patient states he feels like his health has declined. He reports a 30 lb weight gain in just 3-4 days and admits to eating higher sodium frozen foods. He denies chest pain, shortness of breath, or palpitations. He also endorses swelling and redness of his bilateral lower extremities and states his legs have never been that swollen. He reports he has been relatively sedentary since the fall since he has been in pain. He also missed a week of hyperbaric oxygen treatment for his right plantar ulcer. He states it has been draining but not as much as it has in the past and he denies fever or chills. The patient states he was recently prescribed an antibiotic for his plantar wound but just started it yesterday. Doesn't know the name of it. Follows with Dr. Staton for his wound. Review of Systems Except as stated in HPI: all other systems reviewed are Neg Past Family Social History Past Medical History Hypertension Diabetes Chronic right plantar wound CHF (echo February 2017 w/ EF 35-40%) PAD Anxiety Schizophrenia Past Surgical History Foot I&D Reported Medications Hydrocodone-Acetaminophen 10-325 mg Tab 1 Tab PO BID PRN Vistaril (Hydroxyzine Pamoate) 50 Mg Cap 50 Mg PO BID Norvasc (Amlodipine Besylate) 10 Mg Tab 10 Mg PO DAILY Glipizide 10 Mg Tab 10 Mg PO BIDAC Lisinopril 10 Mg Tab 10 Mg PO DAILY Aspirin 325 Mg Tab 325 Mg PO DAILY [Mellaril] 100 Mg PO BID Furosemide Allergies: Coded Allergies: haloperidol (Verified Allergy, Severe, BLINDNESS, 11/24/17) vancomycin (Verified Allergy, Severe, 11/24/17) levofloxacin (Verified Allergy, Intermediate, Cramping, 11/24/17) fluphenazine (Verified Allergy, Unknown, "PARKINSONIAN SHACKS", 11/24/17) codeine (Verified Adverse Reaction, Mild, 11/24/17) "makes me feel funny" but feels ok taking [place]'s *MDRO Multi-Drug Resistant Organism (Verified Adverse Reaction, Unknown, VRE, 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 Active Ordered Medications Acetaminophen (Tylenol) 650 mg Q4H PRN PO; Start 11/24/17 at 17:45 Acetaminophen/ Hydrocodone Bitart ([place] 5-325 Mg) 1 tab Q4H PRN PO; Start 08/03 at 18:15 Acetaminophen/ Hydrocodone Bitart ([place] 5-325 Mg) 2 tab Q4H PRN PO; Start 08/03 at 18:15 Bisacodyl (Dulcolax Supp) 10 mg DAILY PRN RECTAL; Start 11/24/17 at 17:45 Ceftriaxone Sodium 1000 mg/ Sodium Chloride 100 ml @ 200 mls/hr Q24H IV Last administered on 11/24/17at 18:48; Admin Dose 200 MLS/HR; Start 11/24/17 at 18:00 Clindamycin/ Sodium Chloride 50 ml @ 100 mls/hr Q8H IV; Start 11/24/17 at 20:00 Heparin Sodium (Porcine) (Heparin Inj) 5,000 units Q8H SQ; Start 11/24/17 at 22: 00 Lactulose (Lactulose Liq) 30 ml DAILY PRN PO; Start 11/24/17 at 17:45 Magnesium Hydroxide (Milk Of Magnesia Liq) 30 ml Q12H PRN PO; Start 11/24/17 at 17:45 Naloxone HCl (Narcan Inj) 0.4 mg UNSCH PRN IV PUSH; Start 11/24/17 at 17:45 Ondansetron HCl (Zofran Inj) 4 mg Q6H PRN IVP; Start 11/24/17 at 17:45 Senna/Docusate Sodium (Lizz-Colace) 1 tab BID PO; Start 11/24/17 at 21:00 Sennosides (Senokot) 17.2 mg Q12H PRN PO; Start 11/24/17 at 17:45 Sodium Chloride 1,000 ml @ 100 mls/hr Q10H IV; Start 11/24/17 at 18:00 Sodium Chloride (NS Flush) 2 ml BID IV FLUSH; Start 11/24/17 at 21:00 Sodium Chloride (NS Flush) 2 ml UNSCH PRN IV FLUSH; Start 11/24/17 at 17:45 Temazepam (Restoril) 15 mg HS PRN PO; Start 11/24/17 at 17:45 Family History Noncontributory Social History Lives with parents EtOH: denies Tobacco: denies Illicit drugs: denies Physical Exam Vital Signs Vital Signs Date Time Temp Pulse Resp B/P (MAP) Pulse Ox O2 Delivery O2 Flow Rate FiO2 11/24/17 12:18 97.6 88 16 132/61 (84) 99 Physical Exam GENERAL: Obese male sitting up in bed in no acute distress. SKIN: Warm and dry. HEENT: Atraumatic. Normocephalic. No temporal or scalp tenderness. Pupils equal round and reactive. Extraocular motions intact. No scleral icterus. No injection or drainage. Nose without bleeding, purulent drainage or septal hematoma. Throat without erythema, tonsillar hypertrophy or exudate. Uvula midline. Airway patent. NECK: Trachea midline. No JVD or lymphadenopathy. Supple, nontender, no meningeal signs. CARDIOVASCULAR: Regular rate and rhythm without murmurs, gallops, or rubs. RESPIRATORY: Clear to auscultation. Breath sounds equal bilaterally. No wheezes , rales, or rhonchi. GASTROINTESTINAL: Abdomen soft, nontender, nondistended. Reducible umbilical hernia. No hepatosplenomegaly or palpable masses. No guarding. MUSCULOSKELETAL: Charcot foot deformity bilaterally. Extremities bilaterally with erythema midway up shins, warmth, and edema; calves tender to palpation but no palpable cords. Right plantar aspect of food with 3.5 x 2.5 x 1.5 cm ulceration with no significantly drainage. Wound borders appear clean. NEUROLOGICAL: Awake and alert. Cranial nerves II through XII intact. Motor and sensory grossly within normal limits. Normal speech. Laboratory Laboratory Tests Test 11/24/17 15:00 11/24/17 15:15 White Blood Count 6.0 Red Blood Count 2.59 Hemoglobin 8.2 Hematocrit 23.7 Mean Corpuscular Volume 91.3 Mean Corpuscular Hemoglobin 31.7 Mean Corpuscular Hemoglobin Concent 34.7 Red Cell Distribution Width 13.1 Platelet Count 233 Mean Platelet Volume 8.7 Neutrophils (%) (Auto) 75.3 Lymphocytes (%) (Auto) 14.0 Monocytes (%) (Auto) 8.8 Eosinophils (%) (Auto) 1.1 Basophils (%) (Auto) 0.8 Neutrophils # (Auto) 4.5 Lymphocytes # (Auto) 0.8 Monocytes # (Auto) 0.5 Eosinophils # (Auto) 0.1 Basophils # (Auto) 0.1 CBC Comment DIFF FINAL Differential Comment Blood Urea Nitrogen 40 Creatinine 2.79 Random Glucose 83 Calcium Level 9.5 Sodium Level 130 Potassium Level 4.9 Chloride Level 99 Carbon Dioxide Level 21.5 Anion Gap 10 Estimat Glomerular Filtration Rate 24 Urine Color LIGHT-YELLOW Urine Turbidity CLEAR Urine pH 5.5 Urine Specific [place] 1.007 Urine Protein 30 Urine Glucose (UA) NEG Urine Ketones NEG Urine Occult Blood NEG Urine Nitrite NEG Urine Bilirubin NEG Urine Urobilinogen LESS THAN 2.0 Urine Leukocyte Esterase NEG Urine WBC 1 Urine Squamous Epithelial Cells 3 Urine Hyaline Casts 4 Microscopic Urinalysis Comment CULT NOT INDICATED Result Diagram: 11/24/17 1500 11/24/17 1500 Imaging Chest X-Ray 11/24/17 1413 Signed Impressions: Service Date/Time: Friday, November 24, 2017 14:20 - CONCLUSION: 1. Cardiomegaly without focal consolidation or significant effusion. Marcio Hansen MD Hip and Pelvis X-Ray 11/24/17 1314 Signed Impressions: Service Date/Time: Friday, November 24, 2017 13:29 - CONCLUSION: 1. Nondisplaced fracture left superior pubic ramus extending into the left pubic bone. MD Dean Dickey VTE Risk Assessment Dean VTE Risk Assessment: Mod/High Risk (score >= 2) Caprini Risk Assessment Model Point Value = 1 Point Value = 2 Point Value = 3 Point Value = 5 Age 41-60 Minor surgery BMI > 25 kg/m2 Swollen legs Varicose veins or History of unexplained or recurrent spontaneous Oral contraceptives or hormone replacement Sepsis (< 1 month) Serious lung disease, including pneumonia (< 1 month) Abnormal pulmonary function Acute myocardial infarction Congestive heart failure (< 1 month) History of inflammatory bowel disease Medical patient at bed rest Age 61-74 Arthroscopic surgery Major open surgery (> 45 min) Laparoscopic surgery (> 45 min) Malignancy Confined to bed (> 72 hours) Immobilizing plaster cast Central venous access Age >= 75 History of VTE Family history of VTE Factor V Leiden Prothrombin [id number] Lupus anticoagulant Anticardiolipin antibodies Elevated serum homocysteine Heparin-induced thrombocytopenia Other congenital or acquired thrombophilia Stroke (< 1 month) Elective arthroplasty Hip, pelvis, or leg fracture Acute spinal cord injury (< 1 month) Prophylaxis Regimen Total Risk Factor Score Risk Level Prophylaxis Regimen 0-1 Low Early ambulation 2 Moderate Order ONE of the following: *Sequential Compression Device (SCD) *Heparin 5000 units SQ BID 3-4 Higher Order ONE of the following medications: *Heparin 5000 units SQ TID *Enoxaparin/Lovenox 40 mg SQ daily (WT < 150 kg, CrCl > 30 mL/min) *Enoxaparin/Lovenox 30 mg SQ daily (WT < 150 kg, CrCl > 10-29 mL/min) *Enoxaparin/Lovenox 30 mg SQ BID (WT < 150 kg, CrCl > 30 mL/min) AND/OR *Sequential Compression Device (SCD) 5 or more Highest Order ONE of the following medications: *Heparin 5000 units SQ TID (Preferred with Epidurals) *Enoxaparin/Lovenox 40 mg SQ daily (WT < 150 kg, CrCl > 30 mL/min) *Enoxaparin/Lovenox 30 mg SQ daily (WT < 150 kg, CrCl > 10-29 mL/min) *Enoxaparin/Lovenox 30 mg SQ BID (WT < 150 kg, CrCl > 30 mL/min) AND *Sequential Compression Device (SCD) Assessment and Plan Problem List: (1) Pelvic fracture ICD Code: S32.9XXA - Fracture of unspecified parts of lumbosacral spine and pelvis, initial encounter for closed fracture Status: Acute (2) Acute kidney injury ICD Code: N17.9 - Acute kidney failure, unspecified Status: Acute (3) Peripheral edema ICD Code: R60.9 - Edema, unspecified Status: Acute (4) Cellulitis of lower extremity ICD Code: L03.119 - Cellulitis of unspecified part of limb (5) Hyponatremia ICD Code: E87.1 - Hypo-osmolality and hyponatremia (6) Plantar ulcer of right foot ICD Code: L97.519 - Non-pressure chronic ulcer of other part of right foot with unspecified severity Status: Chronic (7) Hypertension ICD Code: I10 - Essential (primary) hypertension Status: Chronic (8) DM (diabetes mellitus) ICD Code: E11.9 - Type 2 diabetes mellitus without complications Status: Chronic (9) Chronic foot ulcer ICD Code: L97.509 - Non-pressure chronic ulcer of other part of unspecified foot with unspecified severity Status: Chronic (10) Anemia ICD Code: D64.9 - Anemia, unspecified Status: Chronic Assessment and Plan 57 year old male with DM, HTN, HLD, PAD, chronic right plantar ulcer, and schizophrenia admitted for pain and debility secondary to pelvic fracture, bilateral lower extremity cellulitis, and BISHOP. 1. Pelvic fracture - XR demonstrating nondisplaced L pubic ramus fracture - Pain control - PT to encourage early mobilization 2. Bilateral LE cellulitis with R plantar wound - Not meeting septic criteria - ESR significantly elevated - U/S with no e/o DVT - Culture of wound on 11/15 showing heavy growth or Proteus and MRSA, sensitivities reviewed but patient allergic to vancomycin and Levaquin and also have to be cautious with BISHOP - Will treat with Rocephin to cover proteus and clindamycin to cover MRSA - Podiatry consulted to eval wound 3. BISHOP - Pt with CKD but acute injury this admission with creatinine 2.79 and BUN 40 - Avoid nephrotoxic agents and renally dose medications - Monitor creatinine - Hydration with NS at 100 ml/hr 4. Hyponatremia - Na 130 - NS as above 5. DM - Resume home glipizide - SSI per protocol 6. HTN - Hold home Lisinopril in light of BISHOP - Continue amlodipine - Clonidine PRN 7. Schizophrenia - Not actively psychotic - Continue home med 8. Anemia - Chronic and H&H stable - Likely anemia of chronic disease - No e/o active bleeding and patient had colonoscopy within the last year DVT prophylaxis - Heparin Code Status FULL Discussed Condition With Patient and Dr. Hodge Physician Certification 2 Midnight Certification Type: Admission for Inpatient Services Order for Inpatient Services The services are ordered in accordance with Medicare regulations or non- Medicare payer requirements, as applicable. In the case of services not specified as inpatient-only, they are appropriately provided as inpatient services in accordance with the 2-midnight benchmark. Estimated LOS (days): 2 2 days is the estimated time the patient will need to remain in the hospital, assuming treatment plan goals are met and no additional complications. Post-Hospital Plan: Not yet determined Problem Qualifiers (1) Pelvic fracture: Qualified Codes: S32.512A - Fracture of superior rim of left pubis, initial encounter for closed fracture (2) Cellulitis of lower extremity: Qualified Codes: L03.115 - Cellulitis of right lower limb (3) Plantar ulcer of right foot: Qualified Codes: L97.513 - Non-pressure chronic ulcer of other part of right foot with necrosis of muscle Leah Foss MD Nov 24, 2017 17:28
[2017-11-24] MEDS ORDERED: NALOXONE HCL 0.4 MG/ML AMP IV PUSH PRN (17:45)
[2017-11-24] MEDS ORDERED: SENNOSIDES 8.6 MG TAB PO PRN (17:45)
[2017-11-24] MEDS ORDERED: SODIUM CHLORIDE 0.9% FLUSH 10 ML FLUSH IV FLUSH PRN (17:45)
[2017-11-24] MEDS ORDERED: LACTULOSE SYRUP 20 GM/30 ML CUP PO PRN (17:45)
[2017-11-24] MEDS ORDERED: BISACODYL 10 MG SUPP RECTAL PRN (17:45)
[2017-11-24] MEDS ORDERED: ACETAMINOPHEN 325 MG TAB PO PRN (17:45)
[2017-11-24] MEDS ORDERED: MAGNESIUM HYDROXIDE SUSP 30 ML CUP PO PRN (17:45)
[2017-11-24] MEDS ORDERED: ONDANSETRON HCL 4 MG/2 ML VIAL IVP PRN (17:45)
[2017-11-24] MEDS ORDERED: TEMAZEPAM 15 MG CAP PO PRN (17:45)
[2017-11-24] MEDS ORDERED: ACETAMINOPHEN/HYDROcodone 325 MG/5 MG TAB PO PRN (18:15)
--- NOTE | 2017-11-24 18:39 | RADRPT ---
EXAM DATE/TIME: 11/24/2017 18:06 [place] COMPARISON: No previous studies available for comparison. INDICATIONS : Bilateral leg swelling. MEDICAL HISTORY : Hypertension. Anticoagulant therapy. Renal disease. Diabetes. VRE. Schizophrenia. SURGICAL HISTORY : Right foot surgery. Left foot ulcer debridement. ENCOUNTER: Initial ACUITY: 1 week PAIN SCORE: 9/10 LOCATION: Bilateral legs. TECHNIQUE: Venous ultrasound of the left and right leg was performed from the inguinal ligament to the proximal calf. Real-time, color Doppler and spectral tracing, compression and augmentation techniques were us ed. FINDINGS: Prominent bilateral inguinal lymph nodes measuring up to 5 cm in size. RIGHT LEG: There is normal compressibility of the deep venous system from the inguinal region to the proximal ca lf. No echogenic clot is seen in the lumen of the common femoral, femoral, popliteal, and posterior tibial veins. There is a normal response of the venous system to proximal and distal augmentation an d respiration. LEFT LEG: There is normal compressibility of the deep venous system from the inguinal region to the proximal ca lf. No echogenic clot is seen in the lumen of the common femoral, femoral, popliteal, and posterior tibial veins. There is a normal response of the venous system to proximal and distal augmentation an d respiration. CONCLUSION: 1. Negative for deep venous thrombosis bilateral lower extremity. Randall Car MD on November 24, 2017 at 18:37 Board Certified Radiologist. This report was verified electronically.
[2017-11-24] MEDS: cefTRIAXone INJ 1,000 MG in SODIUM CHLORIDE 0.9% INJ 100 ML IV SCH (18:48)
[2017-11-24 19:07] VITALS: BP 124/58; PULSE 83; RESP 18; O2SAT 95
[2017-11-24 20:00] VITALS: BP 139/70; PULSE 95; RESP 18; TEMP 98.5; O2SAT 95
[2017-11-24] MEDS ORDERED: CLINDAMYCIN 600 MG/NS PREMIX 50 ML IV SCH (20:00)
[2017-11-24] MEDS ORDERED: DEXTROSE 50% IN WATER 50 ML VIAL(D50) IV PUSH PRN (20:30)
[2017-11-24] MEDS ORDERED: cloNIDine HCL 0.1 MG TAB PO PRN (20:30)
[2017-11-24] MEDS ORDERED: GLUCAGON 1 MG/ML VIAL OTHER PRN (20:30)
[2017-11-24 21:00] VITALS: PULSE 67
[2017-11-24] MEDS: DOCUSATE SODIUM 50 MG/SENNA 8.6 MG TAB PO SCH (21:00)
[2017-11-24] MEDS: INSULIN ASPART SUPPLEMENTAL SCALE SQ SCH (21:00)
[2017-11-24] MEDS ORDERED: THIORIDAZINE 100 MG PO SCH (21:00)
[2017-11-24] MEDS ORDERED: MELLARIL PO SCH (21:00)
[2017-11-24] MEDS: HEPARIN SODIUM - SQ 10,000 UNITS/ML VIAL SQ SCH (21:07)
[2017-11-24] MEDS: SODIUM CHLORIDE 0.9% FLUSH 10 ML FLUSH IV FLUSH SCH (21:08)
[2017-11-24] MEDS: SODIUM CHLOR 0.9% 1000 ML INJ 1,000 ML IV SCH (21:08)
[2017-11-24] MEDS: ACETAMINOPHEN/HYDROcodone 325 MG/5 MG TAB PO PRN (21:13)
[2017-11-24] MEDS: CLINDAMYCIN INJ 600 MG in SODIUM CHLORIDE 0.9% INJ 100 ML IV SCH (22:27)
[2017-11-25] VITALS (7 sets, daily range): BP systolic 121–153; BP diastolic 54–68; PULSE 67–80; RESP 16–20; TEMP 95.8–98.4; O2SAT 81–94
[2017-11-25] MEDS: SODIUM CHLOR 0.9% 1000 ML INJ 1,000 ML IV SCH ×3 (04:00→23:03)
[2017-11-25 04:17] LABS: BASOPHIL % 0.9 % (0.0-2.0); EOSINOPHIL # 0.1 TH/MM3 (0-0.4); EOSINOPHIL % 1.9 % (0.0-4.0); HEMATOCRIT 22.5 % (39.0-51.0); HEMOGLOBIN 7.8 GM/DL (13.0-17.0); LYMPHOCYTE # 1.2 TH/MM3 (1.0-4.8); MEAN CORPUSCULAR HEMOGLOBIN 31.8 PG (27.0-34.0); MEAN CORPUSCULAR HGB CONC 34.6 % (32.0-36.0); MEAN PLATELET VOLUME 8.7 FL (7.0-11.0); MONOCYTE # 0.7 TH/MM3 (0-0.9); NEUT % 60.2 % (16.0-70.0); PLATELET COUNT 235 TH/MM3 (150-450); RED BLOOD COUNT 2.45 MIL/MM3 (4.50-5.90); RED CELL DISTRIBUTION WIDTH 13.5 % (11.6-17.2)
[2017-11-25] MEDS: CLINDAMYCIN INJ 600 MG in SODIUM CHLORIDE 0.9% INJ 100 ML IV SCH ×3 (04:30→21:56)
[2017-11-25] MEDS: ACETAMINOPHEN/HYDROcodone 325 MG/5 MG TAB PO PRN ×4 (04:30→18:39)
[2017-11-25 04:49] LABS: ALBUMIN 2.3 GM/DL (3.4-5.0); AST (GOT) 17 U/L (15-37); BICARBONATE 23.5 MEQ/L (21.0-32.0); BLOOD UREA NITROGEN 39 MG/DL (7-18); CALCIUM 9.1 MG/DL (8.5-10.1); CHLORIDE 101 MEQ/L (98-107); CREATININE 2.76 MG/DL (0.60-1.30); GLOMERULAR FILTRATION RATE 24 ML/MIN (>89); GLUCOSE,RANDOM 51 MG/DL (74-106); SODIUM (NA) 133 MEQ/L (136-145)
[2017-11-25 04:54] LABS: ALKALINE PHOSPHATASE 292 U/L (45-117); ALT (GPT) 12 U/L (12-78); TOTAL BILIRUBIN ADULT 0.3 MG/DL (0.2-1.0); TOTAL PROTEIN 7.3 GM/DL (6.4-8.2)
[2017-11-25] MEDS: HEPARIN SODIUM - SQ 10,000 UNITS/ML VIAL SQ SCH ×3 (06:10→21:58)
[2017-11-25] MEDS: glipiZIDE 10 MG TAB PO SCH ×2 (06:10→18:00)
[2017-11-25] MEDS: INSULIN ASPART SUPPLEMENTAL SCALE SQ SCH ×4 (08:00→21:00)
[2017-11-25] MEDS: SODIUM CHLORIDE 0.9% FLUSH 10 ML FLUSH IV FLUSH SCH ×2 (09:00→21:56)
[2017-11-25] MEDS: ASPIRIN 325 MG TAB PO SCH (10:17)
[2017-11-25] MEDS: DOCUSATE SODIUM 50 MG/SENNA 8.6 MG TAB PO SCH ×2 (10:18→21:56)
--- NOTE | 2017-11-25 10:20 | HHI.FPPN ---
Subjective Remarks assuming care from [facility] pt w/o new c/o pain mod controlled c/o leg erythema and pain d/w RN low gluc Objective Vitals Vital Signs Date Time Temp Pulse Resp B/P (MAP) Pulse Ox O2 Delivery O2 Flow Rate FiO2 11/25/17 04:37 96.9 73 18 134/61 (85) 92 11/25/17 00:53 96.3 76 18 121/54 (76) 94 11/24/17 21:00 67 11/24/17 20:00 95 11/24/17 20:00 98.5 95 18 139/70 (93) 95 11/24/17 19:07 83 18 124/58 (80) 95 Room Air 11/24/17 12:18 97.6 88 16 132/61 (84) 99 I/O 11/24/17 11/24/17 11/24/17 11/25/17 11/25/17 11/25/17 07:00 15:00 23:00 07:00 15:00 23:00 Intake Total 100 ml 998 ml Output Total 1900 ml Balance 100 ml -902 ml Intake IV Total 100 ml 998 ml Output Urine Total 1900 ml Result Diagram: 11/25/17 0335 11/25/17 033 Objective Remarks GENERAL: SKIN: Warm and dry. HEAD: Atraumatic. Normocephalic. EYES: Pupils equal and round. No scleral icterus. No injection or drainage. ENT: No nasal bleeding or discharge. Mucous membranes pink and moist. NECK: Trachea midline. No JVD. CARDIOVASCULAR: Regular rate and rhythm. RESPIRATORY: No accessory muscle use. Clear to auscultation. Breath sounds equal bilaterally. GASTROINTESTINAL: Abdomen soft, non-tender, nondistended. Hepatic and splenic margins not palpable. MUSCULOSKELETAL: charcot feet b, leg erythema LLE, r wrapped, edema 3 plus NEUROLOGICAL: Awake and alert. No obvious cranial nerve deficits. Motor grossly within normal limits. 3out of 5 muscle strength in the arms and legs. Normal speech. PSYCHIATRIC: Appropriate mood and affect; insight and judgment normal. Medications and IVs Current Medications Medications (Trade) Dose Ordered Sig/Portia Route Start Time Stop Time Status Last Admin (NS Flush) 2 ml UNSCH PRN IV FLUSH 11/24/17 17:45 (NS Flush) 2 ml BID IV FLUSH 11/24/17 21:00 11/24/17 21:08 (Tylenol) 650 mg Q4H PRN PO 11/24/17 17:45 (Zofran Inj) 4 mg Q6H PRN IVP 11/24/17 17:45 (Restoril) 15 mg HS PRN PO 11/24/17 17:45 (Heparin Inj) 5,000 units Q8H SQ 11/24/17 22:00 11/25/17 06:10 (Narcan Inj) 0.4 mg UNSCH PRN IV PUSH 11/24/17 17:45 (Lizz-Colace) 1 tab BID PO 11/24/17 21:00 (Milk Of Magnesia Liq) 30 ml Q12H PRN PO 11/24/17 17:45 (Senokot) 17.2 mg Q12H PRN PO 11/24/17 17:45 (Dulcolax Supp) 10 mg DAILY PRN RECTAL 11/24/17 17:45 (Lactulose Liq) 30 ml DAILY PRN PO 11/24/17 17:45 Sodium Chloride 1,000 ml @ 100 mls/hr Q10H IV 11/24/17 18:00 11/24/17 21:08 Ceftriaxone Sodium 1000 mg/ Sodium Chloride 100 ml @ 200 mls/hr Q24H IV 11/24/17 18:00 11/24/17 18:48 ([place] 5-325 Mg) 1 tab Q4H PRN PO 11/24/17 18:15 ([place] 5-325 Mg) 2 tab Q4H PRN PO 11/24/17 18:15 11/25/17 04:30 (Norvasc) 10 mg DAILY PO 11/25/17 09:00 (Aspirin) 325 mg DAILY PO 11/25/17 09:00 (Glucotrol) 10 mg BIDAC PO 11/25/17 07:00 11/25/17 06:10 (Vistaril) 50 mg BID PO 11/24/17 21:00 11/24/17 21:07 (D50w (Vial) Inj) 50 ml UNSCH PRN IV PUSH 11/24/17 20:30 (Glucagon Inj) 1 mg UNSCH PRN OTHER 11/24/17 20:30 (NovoLOG SUPPLEMENTAL SCALE) 1 ACHS SLIDING SCALE SQ 11/24/17 21:00 (Catapres) 0.1 mg Q6H PRN PO 11/24/17 20:30 Patient Own Medication PT OWN MED: THIORIDAZINE 100 MG... BID PO 11/24/17 21:00 Future Hold Clindamycin Phosphate 600 mg/ Sodium Chloride 104 ml @ 208 mls/hr Q8H IV 11/24/17 21:00 11/25/17 04:30 A/P Problem List: (1) Charcot foot due to diabetes mellitus ICD Codes: E11.610 - Type 2 diabetes mellitus with diabetic neuropathic arthropathy Status: Acute (2) Symptomatic anemia ICD Codes: D64.9 - Anemia, unspecified Status: Acute (3) Diabetic foot infection ICD Codes: E11.69 - Type 2 diabetes mellitus with other specified complication ; L08.9 - Local infection of the skin and subcutaneous tissue, unspecified Status: Acute (4) Osteomyelitis ICD Codes: M86.9 - Osteomyelitis, unspecified Status: Acute (5) Ulcer of left foot due to type 2 diabetes mellitus ICD Codes: E11.621 - Type 2 diabetes mellitus with foot ulcer; L97.529 - Non- pressure chronic ulcer of other part of left foot with unspecified severity Status: Acute (6) Chronic schizophrenia ICD Codes: F20.9 - Schizophrenia, unspecified Status: Acute (7) Pelvic fracture ICD Codes: S32.9XXA - Fracture of unspecified parts of lumbosacral spine and pelvis, initial encounter for closed fracture Status: Acute (8) Peripheral edema ICD Codes: R60.9 - Edema, unspecified Status: Acute (9) Hyponatremia ICD Codes: E87.1 - Hypo-osmolality and hyponatremia (10) Cellulitis of lower extremity ICD Codes: L03.119 - Cellulitis of unspecified part of limb (11) Plantar ulcer of right foot ICD Codes: L97.519 - Non-pressure chronic ulcer of other part of right foot with unspecified severity Status: Chronic (12) DM (diabetes mellitus) ICD Codes: E11.9 - Type 2 diabetes mellitus without complications Status: Chronic (13) Impaired mobility and activities of daily living ICD Codes: Z74.09 - Other reduced mobility Status: Acute (14) CKD (chronic kidney disease) stage 3, GFR 30-59 ml/min ICD Codes: N18.3 - Chronic kidney disease, stage 3 (moderate) Status: Acute Plan: see orders Problem Qualifiers (1) Pelvic fracture: Qualified Codes: S32.512A - Fracture of superior rim of left pubis, initial encounter for closed fracture (2) Cellulitis of lower extremity: Qualified Codes: L03.115 - Cellulitis of right lower limb (3) Plantar ulcer of right foot: Qualified Codes: L97.513 - Non-pressure chronic ulcer of other part of right foot with necrosis of muscle Jack Rod MD Nov 25, 2017 10:20
[2017-11-25] MEDS: cefTRIAXone INJ 1,000 MG in SODIUM CHLORIDE 0.9% INJ 100 ML IV SCH (18:34)
[2017-11-26] VITALS (7 sets, daily range): BP systolic 120–151; BP diastolic 62–84; PULSE 68–84; RESP 18–20; TEMP 97.4–98.2; O2SAT 89–93
[2017-11-26] MEDS: ACETAMINOPHEN/HYDROcodone 325 MG/5 MG TAB PO PRN ×2 (01:06→10:02)
[2017-11-26] MEDS: CLINDAMYCIN INJ 600 MG in SODIUM CHLORIDE 0.9% INJ 100 ML IV SCH ×3 (05:00→21:24)
[2017-11-26] MEDS: HEPARIN SODIUM - SQ 10,000 UNITS/ML VIAL SQ SCH ×3 (05:01→21:24)
[2017-11-26] MEDS: glipiZIDE 10 MG TAB PO SCH ×2 (06:41→16:00)
[2017-11-26] MEDS: INSULIN ASPART SUPPLEMENTAL SCALE SQ SCH ×4 (08:40→21:00)
[2017-11-26] MEDS: ASPIRIN 325 MG TAB PO SCH (08:41)
[2017-11-26] MEDS: SODIUM CHLORIDE 0.9% FLUSH 10 ML FLUSH IV FLUSH SCH ×2 (08:41→21:00)
[2017-11-26] MEDS: DOCUSATE SODIUM 50 MG/SENNA 8.6 MG TAB PO SCH ×2 (08:41→21:25)
--- NOTE | 2017-11-26 08:42 | PD.WOU.CON ---
Patient Intake Chief Complaint Left pelvic fracture, right foot diabetic ulcer- Nolasco grade [address] Foss Reason for Consult Assume care of right foot ulcer Primary Care Physician Jack Rod MD History of Present Illness Patient known to me from woundcare center and hyperbaric , Coded Allergies: haloperidol (Verified Allergy, Severe, BLINDNESS, 11/24/17) vancomycin (Verified Allergy, Severe, 11/24/17) levofloxacin (Verified Allergy, Intermediate, Cramping, 11/24/17) fluphenazine (Verified Allergy, Unknown, "[employer]IN[employer]ACKS", 11/24/17) codeine (Verified Adverse Reaction, Mild, 11/24/17) "makes me feel funny" but feels ok taking Chilcoot's *MDRO Multi-Drug Resistant Organism (Verified Adverse Reaction, Unknown, VRE, 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 Vital Signs Date Time Temp Pulse Resp B/P (MAP) Pulse Ox O2 Delivery O2 Flow Rate FiO2 11/26/17 08:00 97.4 84 20 120/62 (81) 92 11/26/17 04:08 74 11/26/17 00:14 77 11/25/17 23:44 98.4 80 16 153/68 (96) 81 11/25/17 20:04 74 11/25/17 19:23 97.7 79 16 149/63 (91) 87 11/25/17 16:00 97.0 71 20 135/63 (87) 93 Past, Family & Social History Past Medical History HEENT: DENIES HX OF: Cataracts, Glaucoma, Recurrent ear infections, Recurrent sinusitis, Other HEENT history Endocrine: REPORTS HX OF: Diabetes mellitus, DENIES HX OF: Graves disease, Hyperthyroidism, Hypothyroidism, Other endocrine history Respiratory: DENIES HX OF: Allergies/hay fever, Asthma, COPD, CPAP use, Sleep apnea, Other respiratory history Cardiovascular: REPORTS HX OF: Hypertension, DENIES HX OF: Abdominal aortic aneurysm, Angina, Atrial fibrillation, Cardiac arrhythmias, Coronary artery disease, Deep venous thrombosis, Heart failure, Heart valve disease, Hyperlipidemia, Myocardial infarction, Peripheral vascular dz, Other CV history Gastrointestinal: DENIES HX OF: Colitis, GERD, Irritable bowel syndrome, Liver disease, Pancreatitis, Peptic ulcer disease, Other GI history Genitourinary: DENIES HX OF: Chlamydia, Gonorrhea, Hemodialysis, Herpes genitalis, Human papillomavirus, Kidney disease, Kidney failure, Kidney stones, Past UTI, Peritoneal dialysis, Urinary incontinence, Other history Genitourinary - Male: DENIES HX OF: Benign prost. hyperplasia, Erectile dysfunction, Prostatitis, Testicular problems, Undescended testicle Musculoskeletal: DENIES HX OF: Fibromyalgia, Fractures, Gout, Osteoarthritis, Osteoporosis, Rheumatoid arthritis, Other musculoskeletal hx Cancer/Hematology: DENIES HX OF: Anemia, Bladder Cancer, Blood cancer, Brain cancer, Breast cancer, Colorectal cancer, Endocrine cancer, Eye cancer, GI cancer, cancer, Kidney cancer, Leukemia, Liver cancer, Lung cancer, Lymphoma , Musculoskeletal cancer, Neurologic cancer, Oral cancer, Skin cancer, Stomach cancer, Thyroid cancer, Other cancer/hematology Cancer - Male: DENIES HX OF: Prostate cancer, Testicular cancer Infectious Disease: DENIES HX OF: AIDS, Chickenpox, Hepatitis, HIV, Measles, MRSA, Mumps, Polio, Positive PPD, Rheumatic fever, Rubella, Syphilis, Tuberculosis, Vanc-resistant enterococc, Other inf disease history Integumentary: DENIES HX OF: Acne, Eczema, Psoriasis, Other integumentary hx Neurologic: DENIES HX OF: ADHD, Autism, Dementia, Developmental delay, Headaches, Multiple sclerosis, Parkinson disease, Peripheral neuropathy, Restless leg syndrome, Seizures, Stroke, Transient ischemic attack, Other neurologic history Psychiatric: DENIES HX OF: Anorexia nervosa, Anxiety, Bipolar disorder, Bulimia , Depression, Schizophrenia, Other psychiatric history Genetic/Metabolic: DENIES HX OF: Cystic fibrosis, Down syndrome, Other genetic history, Other metabolic history Disabilities: DENIES HX OF: Hearing deficit, Vision deficit, Hemiparesis, Paraplegia, Quadriplegia, Other disabilities Past Surgical History HEENT: DENIES HX OF: Cataract extraction, Dental surgery, Laryngectomy, Tonsillectomy, Other head surgery, Other eye surgery, Other ear surgery, Other nasal surgery, Other throat surgery Endocrine: DENIES HX OF: Parathyroidectomy, Thyroid surgery, Other endocrine surgery Respiratory: DENIES HX OF: Bronchoscopy, Lobectomy, Other chest surgery Cardiovascular: DENIES HX OF: Angiogram, Angioplasty, CABG surgery, Carotid endarterectomy, Coronary stent, Heart transplant, Pacemaker, Valve replacement, Other cardiac surgery Gastrointestinal: DENIES HX OF: Appendectomy, Cholecystectomy, Colectomy, subtotal, Colectomy, total, Gastric bypass, Hernia repair, Splenectomy, Other GI surgery Genitourinary: DENIES HX OF: Bladder surgery, Kidney stone extraction, Nephrectomy, Other surgery Genitourinary - Male: DENIES HX OF: Prostatectomy, TURP, Vasectomy Musculoskeletal: DENIES HX OF: Joint replacement, Other musculoskeletal srg Integumentary: DENIES HX OF: Skin cancer removal, Other integumentary surg Neurologic: DENIES HX OF: Craniotomy, Spinal surgery, Other neurologic surgery Breast: DENIES HX OF: Breast biopsy, Lumpectomy, Mastectomy, bilateral, Mastectomy, left, Mastectomy, right, Other breast surgery Family Medical History Patient reports no known family medical history. Social History Social History: Adopted: No Educational Level: hs diploma Marital Status: single Service: No Occupation: unemployed on disability Substance Use Substance Use: Denies use Joi/Sikhism Joi Tradition/Sikhism: Rastafari Wound Assessment Wound Information - Wound One Wound Location: Lt foot between first and second toe incision. Wound Two Wound Location: Lt foot plantar 2nd met Wound Three Wound Location: Lt foot plantar Lab and Radiology Results Radiology Last Impressions Chest X-Ray 11/24/17 1413 Signed Impressions: Service Date/Time: Friday, November 24, 2017 14:20 - CONCLUSION: 1. Cardiomegaly without focal consolidation or significant effusion. Marcio Hansen MD Hip and Pelvis X-Ray 11/24/17 1314 Signed Impressions: Service Date/Time: Friday, November 24, 2017 13:29 - CONCLUSION: 1. Nondisplaced fracture left superior pubic ramus extending into the left pubic bone. Marcio Hansen MD Lower Extremity Ultrasound 11/24/17 0000 Signed Impressions: Service Date/Time: Friday, November 24, 2017 18:06 - CONCLUSION: 1. Negative for deep venous thrombosis bilateral lower extremity. MD Shemar De La Cruz Karla A. MD Nov 26, 2017 08:42
[2017-11-26] MEDS: SODIUM CHLOR 0.9% 1000 ML INJ 1,000 ML IV SCH ×2 (10:01→22:30)
--- NOTE | 2017-11-26 10:34 | HHI.FPPN ---
Objective Vitals Vital Signs Date Time Temp Pulse Resp B/P (MAP) Pulse Ox O2 Delivery O2 Flow Rate FiO2 11/26/17 08:00 97.4 84 20 120/62 (81) 92 11/26/17 04:08 74 11/26/17 00:14 77 11/25/17 23:44 98.4 80 16 153/68 (96) 81 11/25/17 20:04 74 11/25/17 19:23 97.7 79 16 149/63 (91) 87 11/25/17 16:00 97.0 71 20 135/63 (87) 93 I/O 11/25/17 11/25/17 11/25/17 11/26/17 11/26/17 11/26/17 07:00 15:00 23:00 07:00 15:00 23:00 Intake Total 998 ml 330 ml 104 ml 104 ml 1000 ml Output Total 1900 ml 850 ml 600 ml 800 ml Balance -902 ml -520 ml -496 ml 104 ml 200 ml Intake IV Total 998 ml 330 ml 104 ml 104 ml 1000 ml Output Urine Total 1900 ml 850 ml 600 ml 800 ml Result Diagram: 11/25/17 03311/25/17334 Objective Remarks GENERAL: SKIN: Warm and dry. HEAD: Atraumatic. Normocephalic. EYES: Pupils equal and round. No scleral icterus. No injection or drainage. ENT: No nasal bleeding or discharge. Mucous membranes pink and moist. NECK: Trachea midline. No JVD. CARDIOVASCULAR: Regular rate and rhythm. RESPIRATORY: No accessory muscle use. Clear to auscultation. Breath sounds equal bilaterally. GASTROINTESTINAL: Abdomen soft, non-tender, nondistended. Hepatic and splenic margins not palpable. MUSCULOSKELETAL: charcot feet b, leg erythema LLE, r wrapped, edema 3 plus NEUROLOGICAL: Awake and alert. No obvious cranial nerve deficits. Motor grossly within normal limits. 3out of 5 muscle strength in the arms and legs. Normal speech. PSYCHIATRIC: Appropriate mood and affect; insight and judgment normal. A/P Problem List: (1) Charcot foot due to diabetes mellitus ICD Codes: E11.610 - Type 2 diabetes mellitus with diabetic neuropathic arthropathy Status: Acute (2) Symptomatic anemia ICD Codes: D64.9 - Anemia, unspecified Status: Acute (3) Diabetic foot infection ICD Codes: E11.69 - Type 2 diabetes mellitus with other specified complication ; L08.9 - Local infection of the skin and subcutaneous tissue, unspecified Status: Acute (4) Osteomyelitis ICD Codes: M86.9 - Osteomyelitis, unspecified Status: Acute (5) Ulcer of left foot due to type 2 diabetes mellitus ICD Codes: E11.621 - Type 2 diabetes mellitus with foot ulcer; L97.529 - Non- pressure chronic ulcer of other part of left foot with unspecified severity Status: Acute (6) Chronic schizophrenia ICD Codes: F20.9 - Schizophrenia, unspecified Status: Acute (7) Pelvic fracture ICD Codes: S32.9XXA - Fracture of unspecified parts of lumbosacral spine and pelvis, initial encounter for closed fracture Status: Acute (8) Peripheral edema ICD Codes: R60.9 - Edema, unspecified Status: Acute (9) Hyponatremia ICD Codes: E87.1 - Hypo-osmolality and hyponatremia (10) Cellulitis of lower extremity ICD Codes: L03.119 - Cellulitis of unspecified part of limb (11) Plantar ulcer of right foot ICD Codes: L97.519 - Non-pressure chronic ulcer of other part of right foot with unspecified severity Status: Chronic (12) DM (diabetes mellitus) ICD Codes: E11.9 - Type 2 diabetes mellitus without complications Status: Chronic (13) Impaired mobility and activities of daily living ICD Codes: Z74.09 - Other reduced mobility Status: Acute (14) CKD (chronic kidney disease) stage 3, GFR 30-59 ml/min ICD Codes: N18.3 - Chronic kidney disease, stage 3 (moderate) Status: Acute Plan: Assessment and Plan 57 year old male with DM, HTN, HLD, PAD, chronic right plantar ulcer, and schizophrenia admitted for pain and debility secondary to pelvic fracture, bilateral lower extremity cellulitis, and BISHOP. 1. Pelvic fracture - XR demonstrating nondisplaced L pubic ramus fracture - Pain control - PT to encourage early mobilization 2. Bilateral LE cellulitis with R plantar wound - Not meeting septic criteria - ESR significantly elevated - U/S with no e/o DVT - Culture of wound on 11/15 showing heavy growth or Proteus and MRSA, sensitivities reviewed but patient allergic to vancomycin and Levaquin and also have to be cautious with BISHOP - Will treat with Rocephin to cover proteus and clindamycin to cover MRSA - Podiatry consulted to eval wound 3. BISHOP - Pt with CKD but acute injury this admission with creatinine 2.79 and BUN 40 - Avoid nephrotoxic agents and renally dose medications - Monitor creatinine - Hydration with NS at 100 ml/hr 4. Hyponatremia - Na 130 - NS as above 5. DM - Resume home glipizide - SSI per protocol 6. HTN - Hold home Lisinopril in light of BISHOP - Continue amlodipine - Clonidine PRN 7. Schizophrenia - Not actively psychotic - Continue home med 8. Anemia - Chronic and H&H stable - Likely anemia of chronic disease - No e/o active bleeding and patient had colonoscopy within the last year DVT prophylaxis - Heparin Code Status FULL Discussed Condition With Patient Dispo: likely snf or HHC w parents Problem Qualifiers (1) Pelvic fracture: Qualified Codes: S32.512A - Fracture of superior rim of left pubis, initial encounter for closed fracture (2) Cellulitis of lower extremity: Qualified Codes: L03.115 - Cellulitis of right lower limb (3) Plantar ulcer of right foot: Qualified Codes: L97.513 - Non-pressure chronic ulcer of other part of right foot with necrosis of muscle Jack Rod MD Nov 26, 2017 10:34
--- NOTE | 2017-11-26 11:16 | PD.WCN.NOT ---
Wound Consult Description: Patient seen for podiatry consult with Doctor Staton for R foot ulcer Communicated with: Doctor Staton and RN Nanci Roth F pod Recommendation: Please follow orders written by Doctor Staton Additional Information: Patient seen on F pod with Doctor Staton for podiatry consult. Patient is known to Doctor Staton and has seen patient in out patient center. Patient also has been treated with hyperbaric oxygen therapy. Removed elastic wrap, rolled gauze , ABD pad and alginate dressing to reveal open wound to R plantar foot. R plantar foot wound measures 2.6 cm x 2.6cm x 1.4 cm. Undermining is noted from 11 to 4 o'clock deepest at 2 o'clock measuring 1.8cm. Wound bed presents with 100% red granulated tissue. Wound drainage is minimal and sero-sanguinous without odor.wound margins are even, well defined and unattached. Periwound presents with hyperkeratotic tissue.Wound was Cleansed with normal saline and patted dry.Applied puracol AG to wound bed loosely packed. Then applied Maxorb II to wound bed loosely packed. Covered wound with ABD pad, secured with rolled gauze and tape. Doctor Staton wrote orders for wound care. Alexa Wilkinson [facility] Nov 26, 2017 11:16
[2017-11-26] MEDS: cefTRIAXone INJ 1,000 MG in SODIUM CHLORIDE 0.9% INJ 100 ML IV SCH (17:09)
[2017-11-27 00:22] VITALS: BP 147/70; PULSE 95; RESP 20; TEMP 98.6; O2SAT 84
[2017-11-27 04:01] VITALS: BP 154/72; PULSE 85; RESP 20; TEMP 97; O2SAT 93
[2017-11-27] MEDS: SODIUM CHLOR 0.9% 1000 ML INJ 1,000 ML IV SCH (06:00)
[2017-11-27] MEDS: glipiZIDE 10 MG TAB PO SCH (07:00)
[2017-11-27 08:00] VITALS: PULSE 59
[2017-11-27] MEDS: INSULIN ASPART SUPPLEMENTAL SCALE SQ SCH (08:00)
[2017-11-27] MEDS: HEPARIN SODIUM - SQ 10,000 UNITS/ML VIAL SQ SCH (08:03)
[2017-11-27] MEDS: CLINDAMYCIN INJ 600 MG in SODIUM CHLORIDE 0.9% INJ 100 ML IV SCH (08:03)
[2017-11-27 08:12] LABS: AUTOMATED NEUTROPHIL # 4.6 TH/MM3 (1.8-7.7); BASOPHIL % 0.7 % (0.0-2.0); EOSINOPHIL # 0.2 TH/MM3 (0-0.4); EOSINOPHIL % 3.1 % (0.0-4.0); HEMATOCRIT 24.5 % (39.0-51.0); HEMOGLOBIN 8.3 GM/DL (13.0-17.0); LYMPH % 18.4 % (9.0-44.0); LYMPHOCYTE # 1.3 TH/MM3 (1.0-4.8); MEAN CORPUSCULAR HEMOGLOBIN 31.3 PG (27.0-34.0); MEAN CORPUSCULAR HGB CONC 33.7 % (32.0-36.0); MONO % 12.2 % (0.0-8.0); MONOCYTE # 0.9 TH/MM3 (0-0.9); NEUT % 65.6 % (16.0-70.0); PLATELET COUNT 243 TH/MM3 (150-450); RED BLOOD COUNT 2.63 MIL/MM3 (4.50-5.90); RED CELL DISTRIBUTION WIDTH 13.5 % (11.6-17.2)
[2017-11-27 08:13] VITALS: BP 162/78; PULSE 88; RESP 18; TEMP 97.8; O2SAT 94
[2017-11-27 08:45] LABS: BICARBONATE 22.1 MEQ/L (21.0-32.0); CALCIUM 8.5 MG/DL (8.5-10.1); CREATININE 2.82 MG/DL (0.60-1.30)
[2017-11-27] MEDS: SODIUM CHLORIDE 0.9% FLUSH 10 ML FLUSH IV FLUSH SCH (09:00)
[2017-11-27] MEDS: DOCUSATE SODIUM 50 MG/SENNA 8.6 MG TAB PO SCH (09:11)
[2017-11-27] MEDS: ASPIRIN 325 MG TAB PO SCH (09:12)
--- NOTE | 2017-11-27 09:17 | HHI.DS ---
Discharge Summary Admission Date Nov 24, 2017 at 17:20 Discharge Date: Nov 27, 2017 Admitting Diagnosis Left pelvic fracture, peripheral edema, right plantar foot ulcer (1) Pelvic fracture ICD Codes: S32.9XXA - Fracture of unspecified parts of lumbosacral spine and pelvis, initial encounter for closed fracture Status: Acute (2) Acute kidney injury ICD Codes: N17.9 - Acute kidney failure, unspecified Status: Acute (3) Peripheral edema ICD Codes: R60.9 - Edema, unspecified Status: Acute (4) Cellulitis of lower extremity ICD Codes: L03.119 - Cellulitis of unspecified part of limb (5) Hyponatremia ICD Codes: E87.1 - Hypo-osmolality and hyponatremia (6) Plantar ulcer of right foot ICD Codes: L97.519 - Non-pressure chronic ulcer of other part of right foot with unspecified severity Status: Chronic (7) Hypertension ICD Codes: I10 - Essential (primary) hypertension Status: Chronic (8) DM (diabetes mellitus) ICD Codes: E11.9 - Type 2 diabetes mellitus without complications Status: Chronic (9) Chronic foot ulcer ICD Codes: L97.509 - Non-pressure chronic ulcer of other part of unspecified foot with unspecified severity Status: Chronic (10) Anemia ICD Codes: D64.9 - Anemia, unspecified Status: Chronic CBC/BMP: 11/27/17 0658 11/27/17 0658 Significant Findings Laboratory Tests Test 11/24/17 15:00 11/24/17 15:15 11/24/17 21:45 11/25/17 03:35 Red Blood Count 2.59 MIL/MM3 (4.50-5.90) 2.45 MIL/MM3 (4.50-5.90) Hemoglobin 8.2 GM/DL (13.0-17.0) 7.8 GM/DL (13.0-17.0) Hematocrit 23.7 % (39.0-51.0) 22.5 % (39.0-51.0) Neutrophils (%) (Auto) 75.3 % (16.0-70.0) Monocytes (%) (Auto) 8.8 % (0.0-8.0) 13.0 % (0.0-8.0) Lymphocytes # (Auto) 0.8 TH/MM3 (1.0-4.8) Erythrocyte Sedimentation Rate GREATER THAN 140 mm/hr Blood Urea Nitrogen 40 MG/DL (7-18) 39 MG/DL (7-18) Creatinine 2.79 MG/DL (0.60-1.30) 2.76 MG/DL (0.60-1.30) Sodium Level 130 MEQ/L (136-145) 133 MEQ/L (136-145) Estimat Glomerular Filtration Rate 24 ML/MIN (>89) 24 ML/MIN (>89) B-Type Natriuretic Peptide 396 PG/ML (0-100) Urine Protein 30 mg/dL (NEG-TRACE) Random Glucose 51 MG/DL (74-106) Albumin 2.3 GM/DL (3.4-5.0) Alkaline Phosphatase 292 U/L (45-117) Test 11/27/17 06:58 Red Blood Count 2.63 MIL/MM3 (4.50-5.90) Hemoglobin 8.3 GM/DL (13.0-17.0) Hematocrit 24.5 % (39.0-51.0) Monocytes (%) (Auto) 12.2 % (0.0-8.0) Blood Urea Nitrogen 32 MG/DL (7-18) Creatinine 2.82 MG/DL (0.60-1.30) Estimat Glomerular Filtration Rate 23 ML/MIN (>89) PE at Discharge GENERAL: SKIN: Warm and dry. HEAD: Atraumatic. Normocephalic. EYES: Pupils equal and round. No scleral icterus. No injection or drainage. ENT: No nasal bleeding or discharge. Mucous membranes pink and moist. NECK: Trachea midline. No JVD. CARDIOVASCULAR: Regular rate and rhythm. RESPIRATORY: No accessory muscle use. Clear to auscultation. Breath sounds equal bilaterally. GASTROINTESTINAL: Abdomen soft, non-tender, nondistended. Hepatic and splenic margins not palpable. MUSCULOSKELETAL: Extremities without clubbing, cyanosis, or edema. No obvious deformities. NEUROLOGICAL: Awake and alert. No obvious cranial nerve deficits. Motor grossly within normal limits. 4 out of 5 muscle strength in the arms and legs. Normal speech. PSYCHIATRIC: Appropriate mood and affect; insight and judgment normal. Hospital Course 57 year old male with DM, HTN, HLD, PAD, chronic right plantar ulcer, and schizophrenia admitted for pain and debility secondary to pelvic fracture, bilateral lower extremity cellulitis, and BISHOP. 1. Pelvic fracture - XR demonstrating nondisplaced L pubic ramus fracture - Pain control - PT to encourage early mobilization 2. Bilateral LE cellulitis with R plantar wound - Not meeting septic criteria - ESR significantly elevated - U/S with no e/o DVT - Culture of wound on 11/15 showing heavy growth or Proteus and MRSA, sensitivities reviewed but patient allergic to vancomycin and Levaquin and also have to be cautious with BISHOP - Will treat with Rocephin to cover proteus and clindamycin to cover MRSA - Podiatry consulted to eval wound 3. BISHOP - Pt with CKD but acute injury this admission with creatinine 2.79 and BUN 40 - Avoid nephrotoxic agents and renally dose medications - Monitor creatinine - Hydration with NS at 100 ml/hr 4. Hyponatremia - Na 130 - NS as above 5. DM - Resume home glipizide - SSI per protocol 6. HTN - Hold home Lisinopril in light of BISHOP - Continue amlodipine - Clonidine PRN 7. Schizophrenia - Not actively psychotic - Continue home med 8. Anemia - Chronic and H&H stable - Likely anemia of chronic disease - No e/o active bleeding and patient had colonoscopy within the last year DVT prophylaxis - Heparin Code Status FULL Discussed Condition With Patient Dispo: pt request discharge now, no SNF, has dr Garcia appt's m-f, drsg change in 3 days, yet he will go back to wound care tomorrow/kem.... Pt Condition on Discharge: Stable Discharge Disposition: Disch w/ Home Health Serv Discharge Instructions DIET: Follow Instructions for: As Tolerated, No Restrictions Activities you can perform: See Additionl Instruction Additional Activity Instructio: dpm reccomendations Follow up Referrals: PCP Follow-up - 2-[address] [facility] - Daily @ [facility] with dr garcia New Orders: BASIC METABOLIC PROF - 2-3 Days @ [facility] Continued Medications: Amlodipine (Norvasc) 10 Mg Tab 10 MG PO DAILY for Blood Pressure Management, #31 TAB Aspirin (Aspirin) 325 Mg Tab 325 MG PO DAILY, #30 TAB 0 Refills Glipizide (Glipizide) 10 Mg Tab 10 MG PO BIDAC Hydrocodone-Acetaminophen (Hydrocodone-Acetaminophen) 10-325 mg Tab 1 TAB PO BID PRN for PAIN, #60 TAB 0 Refills Hydroxyzine Pamoate (Vistaril) 50 Mg Cap 50 MG PO BID, #60 CAP 0 Refills [Mellaril] () 100 MG PO BID Discontinued Medications: Lisinopril (Lisinopril) 10 Mg Tab 10 MG PO DAILY Jack Mcdermott MD Nov 27, 2017 09:17
--- NOTE | 2017-11-27 09:23 | HHI.DCPOC ---
Discharge Care Plan Diagnosis: (1) Charcot foot due to diabetes mellitus (2) Symptomatic anemia (3) Diabetic foot infection (4) Ulcer of left foot due to type 2 diabetes mellitus (5) Infected stasis ulcer (6) Chronic schizophrenia (7) Bacteremia due to Gram-positive bacteria (8) Acute renal failure superimposed on stage 3 chronic kidney disease Goals to Promote Your Health * To prevent worsening of your condition and complications * To maintain your health at the optimal level Directions to Meet Your Goals Take your medications as prescribed Follow your dietary instruction Follow activity as directed Keep your appointments as scheduled Take your immunizations and boosters as scheduled If your symptoms worsen call your PCP, if no PCP go to Urgent Care Center or Emergency Room Smoking is Dangerous to Your Health. Avoid second hand smoke Call the 24-hour hour crisis hotline for domestic abuse at Jack Rod MD Nov 27, 2017 09:23
--- NOTE | 2017-11-27 09:25 | HHI.FF ---
Face to Face Verification Diagnosis: (1) Charcot foot due to diabetes mellitus (2) Diabetic foot infection (3) Symptomatic anemia (4) Ulcer of left foot due to type 2 diabetes mellitus (5) Infected stasis ulcer (6) Chronic schizophrenia (7) Bacteremia due to Gram-positive bacteria (8) Acute renal failure superimposed on stage 3 chronic kidney disease (9) Hyponatremia (10) Noncompliance (11) ETOH abuse (12) Impaired mobility and activities of daily living (13) Peripheral neuropathy (14) CKD (chronic kidney disease) stage 3, GFR 30-59 ml/min Physical Therapy Order: Evaluate and Treat, Improve ambulation, Strength and gait training Home Health Nursing Order: Medical education Signs/symptoms of disease process Diabetic education Medication education-adverse effect Wound care and dressing changes Nursing assessment with vital signs Telehealth Home Health Aide Order: To Assist In: Bathing and personal care, 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 My clinical findings support the need for the requested home health care services because: Ltd mobility - disease progression Deconditioned w/ increased weakness Med compliance is questionable Limited ability to care for self Need for psychosocial assistance Impaired cognition/judgement High risk of falls Infection w/ risk of complications I certify that my clinical findings support that this patient is homebound because: Impaired cognitive ability/safety Hx COPD- exertion dyspnea/weakness Unsteady gait/balance Unsafe to leave home unassisted Need for psychosocial assistance [id number] bed/chair Unable to use public transportation Poor cardiac reserve Jack Rod MD Nov 27, 2017 09:25
== END 2017-11-27 11:18 | disposition home health service (06) | DRG 536 ==
LOC: NEPC 11:52 → NEDA 17:20 → NEDH 11-25 06:14 → NEPFCDU 11-25 17:25
PROVIDERS: ADMIT Family Medicine; ATTEND Family Medicine
DX: S32.592A Other specified fracture of left pubis, initial encounter for closed fracture (principal); E11.22 Type 2 diabetes mellitus with diabetic chronic kidney disease; N17.9 Acute kidney failure, unspecified; E11.610 Type 2 diabetes mellitus with diabetic neuropathic arthropathy; L03.115 Cellulitis of right lower limb; E87.1 Hypo-osmolality and hyponatremia; I13.0 Hypertensive heart and chronic kidney disease with heart failure and stage 1 through stage 4 chronic kidney disease, or unspecified chronic kidney disease; I50.9 Heart failure, unspecified; N18.3 Chronic kidney disease, stage 3 (moderate); L03.116 Cellulitis of left lower limb; W01.0XXA Fall on same level from slipping, tripping and stumbling without subsequent striking against object, initial encounter; E11.51 Type 2 diabetes mellitus with diabetic peripheral angiopathy without gangrene; E11.621 Type 2 diabetes mellitus with foot ulcer; L97.519 Non-pressure chronic ulcer of other part of right foot with unspecified severity; Z79.84 Long term (current) use of oral hypoglycemic drugs; E78.5 Hyperlipidemia, unspecified; F20.9 Schizophrenia, unspecified; Z91.19 Patient's noncompliance with other medical treatment and regimen; E66.9 Obesity, unspecified; Z68.31 Body mass index [BMI] 31.0-31.9, adult; K42.9 Umbilical hernia without obstruction or gangrene; D63.8 Anemia in other chronic diseases classified elsewhere; Z79.82 Long term (current) use of aspirin
CPT/HCPCS: 71045; 73502; 80048; 80053; 81001; 82948; 83605; 83880; 85025; 85652; 93970; 99285; J0696; J1644; J7030

== ENCOUNTER 2018-01-14 19:41 | Inpatient (IN) | payer MEDICARE, OTHER ==
[~2018-01-14] VITALS: Ht 175.3 cm; Wt 96.5 kg
[~2018-01-14 19:41] MED LIST changes: -GABA300C5 PO; -LISI10TA3 PO
[2018-01-14 19:49] VITALS: BP 99/54; PULSE 67; RESP 16; TEMP 98.4; O2SAT 97
[2018-01-14] MEDS ORDERED: SODIUM CHLOR 0.9% 1000 ML INJ 1,000 ML IV SCH (20:01)
[2018-01-14 20:18] VITALS: O2SAT 100
--- NOTE | 2018-01-14 20:41 | RADRPT ---
EXAM DATE/TIME: 01/14/2018 20:22 [facility] COMPARISON: CT BRAIN W/O CONTRAST, September 15, 2016, 20:42. INDICATIONS : Altered mental status. RADIATION DOSE: 42.19 CTDIvol (mGy) MEDICAL HISTORY : Cardiovascular disease. Hypertension. Renal disease. Diabetes. SURGICAL HISTORY : None. ENCOUNTER: Initial ACUITY: 1 day PAIN SCALE: 0/10 LOCATION: cranial TECHNIQUE: Multiple contiguous axial images were obtained of the head. Using automated exposure control and adj ustment of the mA and/or kV according to patient size, radiation dose was kept as low as reasonably a chievable to obtain optimal diagnostic quality images. DICOM format image data is available electro nically for review and comparison. FINDINGS: CEREBRUM: The ventricles are normal for age. No evidence of midline shift, mass lesion, hemorrhage or acute in farction. No extra-axial fluid collections are seen. POSTERIOR FOSSA: The cerebellum and brainstem are intact. The 4th ventricle is midline. The cerebellopontine angle i s unremarkable. EXTRACRANIAL: The visualized portion of the orbits is intact. SKULL: The calvaria is intact. No evidence of skull fracture. CONCLUSION: Normal examination for a patient of this age. Marcio Hansen MD on January 14, 2018 at 20:38 Board Certified Radiologist. This report was verified electronically.
[2018-01-14 20:50] LABS: INTERNATIONAL NORMALIZED RATIO 1.6 RATIO
[2018-01-14 20:55] LABS: AUTOMATED NEUTROPHIL # 25.4 TH/MM3 (1.8-7.7); BASOPHIL # 0.2 TH/MM3 (0-0.2); BASOPHIL % 0.6 % (0.0-2.0); EOSINOPHIL # 0.1 TH/MM3 (0-0.4); EOSINOPHIL % 0.3 % (0.0-4.0); HEMATOCRIT 21.7 % (39.0-51.0); HEMOGLOBIN 7.2 GM/DL (13.0-17.0); LYMPH % 1.4 % (9.0-44.0); LYMPHOCYTE # 0.4 TH/MM3 (1.0-4.8); MEAN CELL VOLUME 90.7 FL (80.0-100.0); MEAN CORPUSCULAR HGB CONC 33.1 % (32.0-36.0); MEAN PLATELET VOLUME 9.8 FL (7.0-11.0); MONO % 3.8 % (0.0-8.0); NEUT % 93.9 % (16.0-70.0); PLATELET COUNT 198 TH/MM3 (150-450); RED BLOOD COUNT 2.39 MIL/MM3 (4.50-5.90); RED CELL DISTRIBUTION WIDTH 14.7 % (11.6-17.2)
[2018-01-14 20:58] LABS: LACTIC ACID SEPSIS PROTOCOL 3.1 mmol/L (0.4-2.0)
--- NOTE | 2018-01-14 21:10 | RADRPT ---
EXAM DATE/TIME: 01/14/2018 20:25 [facility] COMPARISON: No previous studies available for comparison. INDICATIONS : Syncope. MEDICAL HISTORY : Hypertension. Cardiovascular disease. Diabetes mellitus type II. Renal disease. SURGICAL HISTORY : None. ENCOUNTER: Initial ACUITY: 1 day PAIN SCORE: Non-responsive. LOCATION: Bilateral chest FINDINGS: A single view of the chest demonstrates the lungs to be symmetrically aerated without evidence of mas s, infiltrate or effusion. The cardiomediastinal contours are mildly prominent. Osseous structures a re intact. CONCLUSION: 1. Mild cardiomegaly. No focal consolidation or effusion. Marcio Hansen MD on January 14, 2018 at 21:05 Board Certified Radiologist. This report was verified electronically.
[2018-01-14 21:17] VITALS: BP 85/53; PULSE 65; RESP 16; O2SAT 100
--- NOTE | 2018-01-14 21:24 | PD ---
HPI Chief Complaint: Altered Mental Status Time Seen by Provider: 19:50 Travel History International Travel<30 days: No Contact w/Intl Traveler<30days: No Traveled to known affect area: No History of Present Illness HPI 57-year-old male presents emergency department via [facility] from home with altered mental status. Patient states that patient has been altered and only alert to self. EVAC states that patient gave him very little information as he was unable to tell them at the any pain. According to family, patient fell 2 days ago but we do not have any other information regarding this. Patient does have a history of chronic alcohol abuse but denies any alcohol today. Again history is limited as patient does not answer questions. PFSH Past Medical History Medical History: Unable to Obtain Hx Anticoagulant Therapy: No Arthritis: No Asthma: No Autoimmune Disease: No Blood Disorders: No Anxiety: Yes Depression: Yes Heart Rhythm Problems: No Cancer: No Cardiovascular Problems: Yes High Cholesterol: No Chemotherapy: No Chest Pain: Yes Congestive Heart Failure: No COPD: No Cerebrovascular Accident: No Diabetes: Yes Patient Takes Glucophage: No (UNABLE TO OBTAIN ) Diminished Hearing: No Endocrine: Yes Gastrointestinal Disorders: Yes GERD: No Glaucoma: No Genitourinary: Yes Headaches: No Hepatitis: No Hiatal Hernia: Yes Heparin Induced Thrombocytopen: No Hypertension: Yes Immune Disorder: No Implanted Vascular Access Dvce: No Kidney Stones: No Musculoskeletal: No Neurologic: Yes Psychiatric: Yes (schizoprenia controlled ) Reproductive: No Respiratory: No Immunizations Current: No Migraines: No Myocardial Infarction: No Radiation Therapy: No Renal Failure: No Schizophrenia: Yes Seizures: No Sickle Cell Disease: No Sleep Apnea: No Thyroid Disease: No Ulcer: No Tetanus Vaccination: Unknown Past Surgical History Surgical History: Unable to Obtain Abdominal Surgery: No AICD: No Appendectomy: No Arteriovenous Shunt: No Cardiac Surgery: No Cholecystectomy: No Ear Surgery: No Endocrine Surgery: No Eye Surgery: No Genitourinary Surgery: No Gynecologic Surgery: No Insulin Pump: No Joint Replacement: No Neurologic Surgery: No Oral Surgery: No Pacemaker: No Thoracic Surgery: No Other Surgery: Yes (R FOOT IND) Social History Alcohol Use: Yes (everyday; 4-16oz beers today (08/16/17)) Tobacco Use: No (QUIT 2012) Substance Use: No Allergies-Medications (Allergen,Severity, Reaction): Coded Allergies: haloperidol (Verified Allergy, Severe, BLINDNESS, 01/14/18) vancomycin (Verified Allergy, Severe, 01/14/18) levofloxacin (Verified Allergy, Intermediate, Cramping, 01/14/18) fluphenazine (Verified Allergy, Unknown, "[place]", 01/14/18) codeine (Verified Adverse Reaction, Mild, 01/14/18) "makes me feel funny" but feels ok taking [place]'s *MDRO Multi-Drug Resistant Organism (Verified Adverse Reaction, Unknown, VRE, 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 Skin jaundiced HEAD: Atraumatic. Normocephalic. EYES: Pupils equal and round. No scleral icterus. No injection or drainage. ENT: No nasal bleeding or discharge. Mucous membranes pink and moist. NECK: Trachea midline. No JVD. CARDIOVASCULAR: Regular rate and rhythm. No murmur appreciated. RESPIRATORY: No accessory muscle use. Clear to auscultation. Breath sounds equal bilaterally. GASTROINTESTINAL: Abdomen soft, non-tender, nondistended. Hepatic and splenic margins not palpable. MUSCULOSKELETAL: No obvious deformities. No clubbing. No cyanosis. No edema. NEUROLOGICAL: Awake and alert. No obvious cranial nerve deficits. Motor grossly within normal limits. Normal speech. PSYCHIATRIC: Appropriate mood and affect; insight and judgment normal. Data Data Last Documented VS Vital Signs Date Time Temp Pulse Resp B/P (MAP) Pulse Ox O2 Delivery O2 Flow Rate FiO2 01/14/18 21:17 65 16 85/53 (64) 100 Nasal Cannula 2.00 01/14/18 19:49 98.4 Orders Orders Electrocardiogram (01/14/18 20:01) Ammonia (01/14/18 20:01) Complete Blood Count With Diff (01/14/18 20:01) Comprehensive Metabolic Panel (01/14/18 20:01) Creatine Kinase (Cpk) (01/14/18 20:01) Prothrombin Time / Inr (Pt) (01/14/18 20:01) Act Partial Throm Time (Ptt) (01/14/18 20:01) Troponin I (01/14/18 20:01) Thyroid Stimulating Hormone (01/14/18 20:01) Urinalysis - C+S If Indicated (01/14/18 20:01) Lactic Acid Sepsis Protocol (01/14/18 20:01) Blood Culture (01/14/18 20:01) Chest, Single Ap (01/14/18 20:01) Ct Brain W/O Iv Contrast(Rout) (01/14/18 20:01) Blood Glucose (01/14/18 20:01) Ecg Monitoring (01/14/18 20:) Iv Access Insert/Monitor (01/14/18 20:01) Oximetry (01/14/18 20:01) Oxygen Administration (01/14/18 20:01) Urinary Catheter Insert/Apply (01/14/18 20:01) Sodium Chlor 0.9% 1000 Ml Inj (Ns 1000 M (01/14/18 20:01) Drug Screen, Random Urine (01/14/18 20:01) Alcohol (Ethanol) (01/14/18 20:01) Piperacil-Tazo 4.5 Gm Premix (Zosyn 4.5 (01/14/18 21:30) Sodium Chlor 0.9% 1000 Ml Inj (Ns 1000 M (01/14/18 21:30) Clindamycin 600 Mg/Ns Premix (Cleocin 60 (01/14/18 21:30) B-Type Natriuretic Peptide (01/14/18 21:25) Ct Abd/Pel W/O Iv Contrast (01/14/18 ) Admit Order (Ed Use Only) (01/14/18 21:28) Labs Laboratory Tests Test 01/14/18 20:14 01/14/18 20:35 White Blood Count 27.0 TH/MM3 Red Blood Count 2.39 MIL/MM3 Hemoglobin 7.2 GM/DL Hematocrit 21.7 % Mean Corpuscular Volume 90.7 FL Mean Corpuscular Hemoglobin 30.0 PG Mean Corpuscular Hemoglobin Concent 33.1 % Red Cell Distribution Width 14.7 % Platelet Count 198 TH/MM3 Mean Platelet Volume 9.8 FL Neutrophils (%) (Auto) 93.9 % Lymphocytes (%) (Auto) 1.4 % Monocytes (%) (Auto) 3.8 % Eosinophils (%) (Auto) 0.3 % Basophils (%) (Auto) 0.6 % Neutrophils # (Auto) 25.4 TH/MM3 Lymphocytes # (Auto) 0.4 TH/MM3 Monocytes # (Auto) 1.0 TH/MM3 Eosinophils # (Auto) 0.1 TH/MM3 Basophils # (Auto) 0.2 TH/MM3 CBC Comment DIFF FINAL Differential Comment Prothrombin Time 16.0 SEC Prothromb Time International Ratio 1.6 RATIO Activated Partial Thromboplast Time 42.5 SEC Blood Urea Nitrogen 66 MG/DL Creatinine 3.94 MG/DL Random Glucose 100 MG/DL Total Protein 8.0 GM/DL Albumin 1.9 GM/DL Calcium Level 8.4 MG/DL Alkaline Phosphatase 648 U/L Aspartate Amino Transf (AST/SGOT) 73 U/L Alanine Aminotransferase (ALT/SGPT) 28 U/L Total Bilirubin 1.5 MG/DL Sodium Level 121 MEQ/L Potassium Level 4.8 MEQ/L Chloride Level 91 MEQ/L Carbon Dioxide Level 15.8 MEQ/L Anion Gap 14 MEQ/L Estimat Glomerular Filtration Rate 16 ML/MIN Lactic Acid Level 3.1 mmol/L Ammonia LESS THAN 10 MCMOL/L Total Creatine Kinase 140 U/L Troponin I LESS THAN 0.02 NG/ML B-Type Natriuretic Peptide 779 PG/ML Lipase 24 U/L Thyroid Stimulating Hormone 3rd Gen 2.960 uIU/ML Ethyl Alcohol Level LESS THAN 3 MG/DL Urine Color YELLOW Urine Turbidity CLOUDY Urine pH 5.5 Urine Specific [place] 1.016 Urine Protein 300 mg/dL Urine Glucose (UA) 70 mg/dL Urine Ketones NEG mg/dL Urine Occult Blood MOD Urine Nitrite NEG Urine Bilirubin SMALL Urine Urobilinogen LESS THAN 2.0 MG/DL Urine Leukocyte Esterase SMALL Urine RBC 12 /hpf Urine WBC 5 /hpf Urine Amorphous Sediment MOD Microscopic Urinalysis Comment CULT NOT INDICATED Urine Opiates Screen POS Urine Barbiturates Screen NEG Urine Amphetamines Screen NEG Urine Benzodiazepines Screen NEG Urine Cocaine Screen NEG Urine Cannabinoids Screen NEG MDM Medical Decision Making Medical Screen Exam Complete: Yes Emergency Medical Condition: Yes Differential Diagnosis Sepsis, abscess, osteomyelitis, acute kidney failure, hepatitis Narrative Course 57-year-old male presents emergency department for evaluation of altered mental status brought from home by [facility]. Labs and imaging studies ordered. Brief review the EMR demonstrates patient has a history of hyponatremia, rhabdomyolysis, diabetes mellitus. He has a history of Charcot foot, chronic schizophrenia, medication noncompliance. It appears that patient follows Dr. Rod as his primary care physician. CBC & BMP Diagram 01/14/18 20:14 Total Protein 8.0, Albumin 1.9 L, Calcium Level 8.4 L, Alkaline Phosphatase 648 H, Aspartate Amino Transf (AST/SGOT) 73 H, Alanine Aminotransferase (ALT/SGPT) 28, Total Bilirubin 1.5 H Lactic 3.1 Ammonia less than 10 Significant kidney injury compared to labs November 27, 2017. BNP, lipase ordered for further evaluation. Sepsis protocol Chirinos initiated. Patient will receive a total of 2500 cc normal saline in the emergency department today. Zosyn and clindamycin ordered for possible source of sepsis from his right foot. Patient has a chronic diabetic ulcer of the right foot. Spoke with Dr. Portillo who agreed to the admission to the unit. Consider [facility] protocols as according [facility], family says he drinks regularly. Diagnosis Primary Impression: Sepsis Qualified Codes: A41.9 - Sepsis, unspecified organism Additional Impressions: Hyponatremia Right foot ulcer Qualified Codes: L97.519 - Non-pressure chronic ulcer of other part of right foot with unspecified severity Alcoholism /alcohol abuse Admitting Information Admitting Physician Requests: Admit Condition: Stable Mila Kiser January 14, 2018 21:24
[2018-01-14 21:25] LABS: ALBUMIN 1.9 GM/DL (3.4-5.0); BLOOD UREA NITROGEN 66 MG/DL (7-18); CALCIUM 8.4 MG/DL (8.5-10.1); CREATININE 3.94 MG/DL (0.60-1.30); GLOMERULAR FILTRATION RATE 16 ML/MIN (>89); GLUCOSE,RANDOM 100 MG/DL (74-106)
[2018-01-14 21:26] LABS: ALKALINE PHOSPHATASE 648 U/L (45-117); ALT (GPT) 28 U/L (12-78); AST (GOT) 73 U/L (15-37); BICARBONATE 15.8 MEQ/L (21.0-32.0); CHLORIDE 91 MEQ/L (98-107); TOTAL BILIRUBIN ADULT 1.5 MG/DL (0.2-1.0); TROPONIN I LESS THAN 0.02 NG/ML (0.02-0.05)
[2018-01-14 21:28] LABS: SODIUM (NA) 121 MEQ/L (136-145)
[2018-01-14 21:29] LABS: AMORPHOUS SEDIMENT, URINE MOD; BILIRUBIN, URINE SMALL (NEG); BLOOD, URINE MOD (NEG); GLUCOSE,URINE 70 mg/dL (NEG); KETONE, URINE NEG (NEG); NITRITE,URINE NEG (NEG); PH, URINE 5.5 (5.0-8.5); URINE COLOR YELLOW (YELLW/STRAW); URINE LEUKOCYTE ESTERASE SMALL (NEG)
[2018-01-14] MEDS ORDERED: PIPERACIL-TAZO 4.5 GM PREMIX 100 ML IV ONE (21:30)
[2018-01-14] MEDS ORDERED: SODIUM CHLOR 0.9% 1000 ML INJ 1,000 ML IV ONE ×3 (21:30→22:42)
[2018-01-14] MEDS ORDERED: CLINDAMYCIN 600 MG/NS PREMIX 50 ML IV ONE (21:30)
[2018-01-14 21:53] VITALS: BP 101/59; PULSE 63; RESP 20; O2SAT 100
[2018-01-14] MEDS ORDERED: SODIUM CHLOR 0.9% 1000 ML INJ 100 ML IV ONE (22:42)
[2018-01-14] MEDS ORDERED: NURSING INFORMATION XX SCH (22:45)
[2018-01-14] MEDS ORDERED: CHLORHEXIDINE GLUCONATE 2 % 1 PACK (2 CLOTHS) TOP PRN (22:45)
[2018-01-14] MEDS ORDERED: RESP: ALBUTEROL 2.5 MG/IPRATROPIUM 0.5 MG NEB (PRN) INH (22:45)
[2018-01-14] MEDS ORDERED: SODIUM CHLORIDE 0.9% FLUSH 10 ML FLUSH IV FLUSH PRN (22:45)
--- NOTE | 2018-01-14 22:46 | HHI.HP ---
HPI Service Critical Care Medicine Primary Care Physician Unknown Admission Diagnosis Sepsis, AMS Diagnosis: Travel History International Travel<30 Days: No Contact w/Intl Traveler <30 Da: No Traveled to Known Affected Are: No History of Present Illness 57-year-old male presents from home with altered mental status. Patient has been altered and is oriented to person only. According to family, patient fell 2 days ago but we do not have any other information regarding this. Patient does have a history of chronic alcohol abuse but denies any alcohol today. 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 Past Medical History Hypertension Diabetes Chronic right plantar wound CHF (echo February 2017 w/ EF 35-40%) PAD Anxiety Schizophrenia Past Surgical History Foot I&D Reported Medications Reported Meds & Active Scripts Active Hydrocodone-Acetaminophen 10-325 mg Tab 1 Tab PO BID PRN Vistaril (Hydroxyzine Pamoate) 50 Mg Cap 50 Mg PO BID Norvasc (Amlodipine Besylate) 10 Mg Tab 10 Mg PO DAILY Reported Glipizide 10 Mg Tab 10 Mg PO BIDAC Aspirin 325 Mg Tab 325 Mg PO DAILY [Mellaril] 100 Mg PO BID Active Ordered Medications Current Medications Medications (Trade) Dose Ordered Sig/Portia Route PRN Reason Start Time Stop Time Status Last Admin Dose Admin Sodium Chloride 1,000 ml @ 175 mls/hr Q5H43M IV 01/14/18 22:42 01/14/18 22:59 Sodium Chloride (NS Flush) 2 ml UNSCH PRN IV FLUSH FLUSH AFTER USING IV ACCESS 01/14/18 22:45 Sodium Chloride (NS Flush) 2 ml BID IV FLUSH 01/15/18 09:00 Hydrocortisone Sodium Succinate (SoluCORTEF INJ) 50 mg Q6H IV PUSH 01/15/18 23:00 Famotidine (Pepcid Inj) 20 mg Q12HR IV PUSH 01/15/18 09:00 Albuterol/ Ipratropium (Duoneb Neb) 1 ampule Q2HR NEB PRN INH WHEEZING 01/14/18 22:45 Heparin Sodium (Porcine) (Heparin Inj) 5,000 units Q8H SQ 01/14/18 23:00 Piperacillin Sod/ Tazobactam Sod 100 ml @ 200 mls/hr Q6H IV 01/15/18 03:00 Sodium Chloride 1,000 ml @ 1,000 mls/hr Q1H ONCE IV 01/14/18 22:42 01/14/18 23:41 Sodium Chloride 1,000 ml @ 1,000 mls/hr Q1H ONCE IV 01/14/18 22:42 01/14/18 23:41 Miscellaneous Information ([facility] [place] [facility] [place] 1 [id number] XX 01/14/18 22:45 Chlorhexidine Gluconate (Chlorhexidine 2% Cloth) 3 pack Taper DAILY@04 TOP 01/15/18 04:00 01/11/19 03:59 Chlorhexidine Gluconate (Chlorhexidine 2% Cloth) 3 pack UNSCH PRN TOP HYGIENIC CARE 01/14/18 22:45 Clindamycin/ Sodium Chloride 50 ml @ 100 mls/hr Q6H IV 01/15/18 04:00 Family History No family history significant of early coronary artery disease or malignancy Social History Lives with parents EtOH: denies recent use Tobacco: denies Illicit drugs: denies Physical Exam Vital Signs Vital Signs Date Time Temp Pulse Resp B/P (MAP) Pulse Ox O2 Delivery O2 Flow Rate FiO2 01/14/18 21:53 63 20 101/59 (73) 100 2.00 01/14/18 21:17 65 16 85/53 (64) 100 Nasal Cannula 2.00 01/14/18 20:18 100 Nasal Cannula 2.00 01/14/18 20:18 100 Nasal Cannula 2.00 01/14/18 19:49 98.4 67 16 99/54 (69) 97 Physical Exam GENERAL: Well-developed, well-nourished in no apparent distress, flat affect, lethargic SKIN: Focused skin assessment warm/dry. Skin and scleral jaundiced HEAD: Atraumatic. Normocephalic. EYES: Pupils equal and round. Positive scleral icterus. No injection or drainage. ENT: No nasal bleeding or discharge. Mucous membranes pink and moist. NECK: Trachea midline. No JVD. CARDIOVASCULAR: Regular rate and rhythm. No murmur appreciated. RESPIRATORY: No accessory muscle use. Clear to auscultation. Breath sounds equal bilaterally. GASTROINTESTINAL: Abdomen soft, non-tender, nondistended. Hepatic and splenic margins not palpable. MUSCULOSKELETAL: No obvious deformities. No clubbing. No cyanosis. No edema. Chronic appearing right foot plantar wound without discharge NEUROLOGICAL: Awake and alert. No obvious cranial nerve deficits. Motor grossly within normal limits. Lethargic slow speech. Laboratory Laboratory Tests Test 01/14/18 20:14 01/14/18 20:35 White Blood Count 27.0 Red Blood Count 2.39 Hemoglobin 7.2 Hematocrit 21.7 Mean Corpuscular Volume 90.7 Mean Corpuscular Hemoglobin 30.0 Mean Corpuscular Hemoglobin Concent 33.1 Red Cell Distribution Width 14.7 Platelet Count 198 Mean Platelet Volume 9.8 Neutrophils (%) (Auto) 93.9 Lymphocytes (%) (Auto) 1.4 Monocytes (%) (Auto) 3.8 Eosinophils (%) (Auto) 0.3 Basophils (%) (Auto) 0.6 Neutrophils # (Auto) 25.4 Lymphocytes # (Auto) 0.4 Monocytes # (Auto) 1.0 Eosinophils # (Auto) 0.1 Basophils # (Auto) 0.2 CBC Comment DIFF FINAL Differential Comment Prothrombin Time 16.0 Prothromb Time International Ratio 1.6 Activated Partial Thromboplast Time 42.5 Blood Urea Nitrogen 66 Creatinine 3.94 Random Glucose 100 Total Protein 8.0 Albumin 1.9 Calcium Level 8.4 Alkaline Phosphatase 648 Aspartate Amino Transf (AST/SGOT) 73 Alanine Aminotransferase (ALT/SGPT) 28 Total Bilirubin 1.5 Sodium Level 121 Potassium Level 4.8 Chloride Level 91 Carbon Dioxide Level 15.8 Anion Gap 14 Estimat Glomerular Filtration Rate 16 Lactic Acid Level 3.1 Ammonia LESS THAN 10 Total Creatine Kinase 140 Troponin I LESS THAN 0.02 B-Type Natriuretic Peptide 779 Lipase 24 Thyroid Stimulating Hormone 3rd Gen 2.960 Ethyl Alcohol Level LESS THAN 3 Urine Color YELLOW Urine Turbidity CLOUDY Urine pH 5.5 Urine Specific [place] 1.016 Urine Protein 300 Urine Glucose (UA) 70 Urine Ketones NEG Urine Occult Blood MOD Urine Nitrite NEG Urine Bilirubin SMALL Urine Urobilinogen LESS THAN 2.0 Urine Leukocyte Esterase SMALL Urine RBC 12 Urine WBC 5 Urine Amorphous Sediment MOD Microscopic Urinalysis Comment CULT NOT INDICATED Urine Opiates Screen POS Urine Barbiturates Screen NEG Urine Amphetamines Screen NEG Urine Benzodiazepines Screen NEG Urine Cocaine Screen NEG Urine Cannabinoids Screen NEG Date/Time Source Procedure Growth Status 01/14/18 20:14 Blood Peripheral Aerobic Blood Culture Pending Received 01/14/18 20:14 Blood Peripheral Anaerobic Blood Culture Pending Received Result Diagram: 01/14/18201301/14/182013 Imaging Last [address] 01/14/182000 Signed Impressions: Service Date/Time: Sunday, January 14, 2018 20:22 - CONCLUSION: Normal examination for a patient of this age. Marcio Hansen MD Chest X-Ray 01/14/182000 Signed Impressions: Service Date/Time: Sunday, January 14, 2018 20:25 - CONCLUSION: 1. Mild cardiomegaly. No focal consolidation or effusion. Marcio Hansen MD Caprini VTE Risk Assessment Caprini VTE Risk Assessment: Mod/High Risk (score >= 2) Caprini Risk Assessment Model Point Value = 1 Point Value = 2 Point Value = 3 Point Value = 5 Age 41-60 Minor surgery BMI > 25 kg/m2 Swollen legs Varicose veins or History of unexplained or recurrent spontaneous Oral contraceptives or hormone replacement Sepsis (< 1 month) Serious lung disease, including pneumonia (< 1 month) Abnormal pulmonary function Acute myocardial infarction Congestive heart failure (< 1 month) History of inflammatory bowel disease Medical patient at bed rest Age 61-74 Arthroscopic surgery Major open surgery (> 45 min) Laparoscopic surgery (> 45 min) Malignancy Confined to bed (> 72 hours) Immobilizing plaster cast Central venous access Age >= 75 History of VTE Family history of VTE Factor V Leiden Prothrombin [id number] Lupus anticoagulant Anticardiolipin antibodies Elevated serum homocysteine Heparin-induced thrombocytopenia Other congenital or acquired thrombophilia Stroke (< 1 month) Elective arthroplasty Hip, pelvis, or leg fracture Acute spinal cord injury (< 1 month) Prophylaxis Regimen Total Risk Factor Score Risk Level Prophylaxis Regimen 0-1 Low Early ambulation 2 Moderate Order ONE of the following: *Sequential Compression Device (SCD) *Heparin 5000 units SQ BID 3-4 Higher Order ONE of the following medications: *Heparin 5000 units SQ TID *Enoxaparin/Lovenox 40 mg SQ daily (WT < 150 kg, CrCl > 30 mL/min) *Enoxaparin/Lovenox 30 mg SQ daily (WT < 150 kg, CrCl > 10-29 mL/min) *Enoxaparin/Lovenox 30 mg SQ BID (WT < 150 kg, CrCl > 30 mL/min) AND/OR *Sequential Compression Device (SCD) 5 or more Highest Order ONE of the following medications: *Heparin 5000 units SQ TID (Preferred with Epidurals) *Enoxaparin/Lovenox 40 mg SQ daily (WT < 150 kg, CrCl > 30 mL/min) *Enoxaparin/Lovenox 30 mg SQ daily (WT < 150 kg, CrCl > 10-29 mL/min) *Enoxaparin/Lovenox 30 mg SQ BID (WT < 150 kg, CrCl > 30 mL/min) AND *Sequential Compression Device (SCD) Assessment and Plan Assessment and Plan Severe sepsis -Aggressive IV fluid hydration -Broad-spectrum antibiotic -CT abdomen and pelvis -CT right lower extremity to rule out osteomyelitis -Pancultures -Infectious disease consultation Hypertension -Due to above -IV fluid resuscitation per sepsis protocol -Initiate Levophed if indicated Diabetes mellitus -Insulin sliding scale -Hold long-acting insulins while n.p.o. Acute kidney injury -Aggressive IV fluid hydration -Strict I's and O -Monitor electrolytes and creatinine level Schizophrenia -Resume home meds when p.o. DVT GI prophylaxis -Jad's and SCDs -Subcu heparin -IV Pepcid Critical Care: The total critical care time was 35 minutes. Time to perform other separately billable procedures was not included in the critical care time. Best Portillo MD January 14, 2018 10:46 pm
[2018-01-14] MEDS: SODIUM CHLOR 0.9% 1000 ML INJ 1,000 ML IV SCH (22:59)
[2018-01-14] MEDS: HEPARIN SODIUM - SQ 10,000 UNITS/ML VIAL SQ SCH (23:15)
[2018-01-14 23:18] VITALS: BP 102/52; PULSE 62; RESP 16; TEMP 100.3; O2SAT 95
[2018-01-15] VITALS (21 sets, daily range): BP systolic 113–154; BP diastolic 58–81; PULSE 51–106; RESP 15–20; TEMP 97.2–100.1; O2SAT 94–99
--- NOTE | 2018-01-15 00:02 | RADRPT ---
EXAM DATE/TIME: 01/14/2018 23:35 [facility] COMPARISON: CT ABDOMEN & PELVIS W/O CONTRAST, November 02, 2016, 6:00. INDICATIONS : Abdomen pain. ORAL CONTRAST: No oral contrast ingested. RADIATION DOSE: 16.80 CTDIvol (mGy) MEDICAL HISTORY : Cardiovascular disease. Hypertension. Hernia, hiatal. SURGICAL HISTORY : None. ENCOUNTER: Initial ACUITY: 1 day PAIN SCALE: 6/10 LOCATION: Bilateral abdomen TECHNIQUE: Volumetric scanning of the abdomen and pelvis was performed. Using automated exposure control and ad justment of the mA and/or kV according to patient size, radiation dose was kept as low as reasonably achievable to obtain optimal diagnostic quality images. DICOM format image data is available electro nically for review and comparison. FINDINGS: LOWER LUNGS: Mild dependent atelectatic changes in both lung bases. No confluent infiltrate. Heart size appears pr ominent LIVER: Homogeneous density without lesion. Liver appears to be enlarged. There is some gallbladder wall thic kening but no calcified gallstones or intrahepatic biliary ductal dilatation. SPLEEN: Normal size without lesion. PANCREAS: Within normal limits. KIDNEYS: Normal in size and shape. There is no mass, stone, or hydronephrosis. ADRENAL GLANDS: Within normal limits. VASCULAR: There is no aortic aneurysm. BOWEL/MESENTERY: The stomach, small bowel, and colon demonstrate no acute abnormality. There is some edema in the mese nteric leaves. Small amount of free fluid in the deep pelvis ABDOMINAL WALL: 5.7 cm periumbilical hernia which contains fat. There is now some fluid identified within the R. tex ection along the periphery, however. RETROPERITONEUM: Borderline prominent lymph nodes are seen left periaortic just inferior to the renal vessels. BLADDER: Decompressed with a Chirinos catheter. REPRODUCTIVE: Within normal limits. INGUINAL: There is no lymphadenopathy or hernia. MUSCULOSKELETAL: Within normal limits for patient age. CONCLUSION: 1. CT findings suggest volume overload or low oncotic pressures with some flank and mesenteric edema, gallbladder wall thickening and some free fluid in the pelvis. Heart size is somewhat prominent. 2. Bilateral symmetric gynecomastia. Nonspecific findings but can be associated with some chronic dis ease processes or medications. 3. Left periaortic borderline prominent lymph nodes. Again, nonspecific but may be reactive associate d with the aforementioned mesenteric edema. 4. 5.7 cm periumbilical fatty hernia. There is now some fluid along the periphery of the hernia. This could be related to the generalized edema described above although fatty infarction could have a sim ilar radiographic presentation. Please correlate with clinical symptomatology Marquis Mcdonald MD on January 14, 2018 at 23:52 Board Certified Radiologist. This report was verified electronically.
--- NOTE | 2018-01-15 00:06 | RADRPT ---
EXAM DATE/TIME: 01/14/2018 23:38 [facility] COMPARISON: FOOT RIGHT COMPLETE ([id number]), August 16, 2017, 20:59. INDICATIONS : Foot pain. RADIATION DOSE: 12.43 CTDIvol (mGy) MEDICAL HISTORY : Cardiovascular disease. Hypertension. Hernia, hiatal. SURGICAL HISTORY : None. ENCOUNTER: Initial ACUITY: 1 day PAIN SCALE: 8/10 LOCATION: Right foot TECHNIQUE: Volumetric scanning of the foot was performed. Using automated exposure control and adjustment of th e mA and/or kV according to patient size, radiation dose was kept as low as reasonably achievable to obtain optimal diagnostic quality images. DICOM format image data is available electronically for re view and comparison. FINDINGS: BONES: Severe bony deformity in the mid and hindfoot with collapse of the arch. Findings all appear chronic. I do not see an acute fracture, however. JOINTS: Again, findings of severe Charcot foot in the mid and hindfoot with loss of joint space, bony erosion s, hypertrophy and bony bridging. Degenerative osteoarthritic changes at the first MTP joint SOFT TISSUES: Muscles, tendons, and neurovascular structures are grossly unremarkable. No evidence of mass, organiz ed fluid collection, or foreign body. CONCLUSION: 1. CT findings characteristic of a severe Charcot foot in the mid and hindfoot with collapse of the p lantar arch. Osteoarthritic changes of the first MTP joint 2. However, findings all appear to be chronic with no acute osseous injury Marquis Mcdonald MD on January 15, 2018 at 0:00 Board Certified Radiologist. This report was verified electronically.
[2018-01-15] MEDS ORDERED: THIO100T2 PO (00:47)
[2018-01-15] MEDS ORDERED: ACETAMINOPHEN 325 MG TAB PO PRN (01:00)
[2018-01-15] MEDS ORDERED: DEXTROSE 50% IN WATER 50 ML VIAL(D50) IV PUSH PRN (01:00)
[2018-01-15] MEDS ORDERED: GLUCAGON 1 MG/ML VIAL OTHER PRN (01:00)
[2018-01-15] MEDS ORDERED: MORPHINE SULFATE 2 MG/ML SYRINGE IV PUSH PRN (01:00)
--- NOTE | 2018-01-15 02:27 | PD ---
Physical Exam Narrative Please see PA note for full history and physical. Patient presents to the emergency department altered mental status and history of recent fall. On exam patient is afebrile, hypotensive, remaining vital signs stable. He is jaundiced and altered he does move all extremities but reports legs hurting. Foul-smelling drainage from right foot ulcer . He is able to tell me his name but unable to communicate further from that. Head CT showed no acute findings and CXR showed cardiomegaly. EKG sinus rhythm with first-degree AV block and prolonged QT rate of 68. Labs were sent. Patient had elevated lactate and WBC count/BUN/creatinine, normal ammonia, hyponatremia, and elevated AST and alk phos. Blood cultures were sent. Patient was started on IV Zosyn and IV clindamycin for broad-spectrum coverage, as he is allergic to vancomycin. He received 2.5 L of IV normal saline in the emergency report and blood pressure improved to 101/59. Beauty Sales Advisor was called to evaluate the patient for ICU admission. Requested CT abdomen pelvis and of the foot to rule out any osteo. Patient has been admitted to ICU for sepsis with CT scans pending. Data Data Last Documented VS Vital Signs Date Time Temp Pulse Resp B/P (MAP) Pulse Ox O2 Delivery O2 Flow Rate FiO2 01/14/18 21:17 65 16 85/53 (64) 100 Nasal Cannula 2.00 01/14/18 19:49 98.4 Orders Orders Electrocardiogram (01/14/18 20:01) Ammonia (01/14/18 20:01) Complete Blood Count With Diff (01/14/18 20:01) Comprehensive Metabolic Panel (01/14/18 20:01) Creatine Kinase (Cpk) (01/14/18 20:01) Prothrombin Time / Inr (Pt) (01/14/18 20:01) Act Partial Throm Time (Ptt) (01/14/18 20:01) Troponin I (01/14/18 20:01) Thyroid Stimulating Hormone (01/14/18 20:01) Urinalysis - C+S If Indicated (01/14/18 20:01) Lactic Acid Sepsis Protocol (01/14/18 20:01) Blood Culture (01/14/18 20:01) Chest, Single Ap (01/14/18 20:01) Ct Brain W/O Iv Contrast(Rout) (01/14/18 20:01) Blood Glucose (01/14/18 20:01) Ecg Monitoring (01/14/18 20:01) Iv Access Insert/Monitor (01/14/18 20:01) Oximetry (01/14/18 20:01) Oxygen Administration (01/14/18 20:01) Urinary Catheter Insert/Apply (01/14/18 20:01) Sodium Chlor 0.9% 1000 Ml Inj (Ns 1000 M (01/14/18 20:01) Drug Screen, Random Urine (01/14/18 20:01) Alcohol (Ethanol) (01/14/18 20:01) Piperacil-Tazo 4.5 Gm Premix (Zosyn 4.5 (01/14/18 21:30) Sodium Chlor 0.9% 1000 Ml Inj (Ns 1000 M (01/14/18 21:30) Clindamycin 600 Mg/Ns Premix (Cleocin 60 (01/14/18 21:30) B-Type Natriuretic Peptide (01/14/18 21:25) Ct Abd/Pel W/O Iv Contrast (01/14/18 ) Admit Order (Ed Use Only) (01/14/18 21:28) Labs Laboratory Tests Test 01/14/18 20:14 01/14/18 20:35 White Blood Count 27.0 TH/MM3 Red Blood Count 2.39 MIL/MM3 Hemoglobin 7.2 GM/DL Hematocrit 21.7 % Mean Corpuscular Volume 90.7 FL Mean Corpuscular Hemoglobin 30.0 PG Mean Corpuscular Hemoglobin Concent 33.1 % Red Cell Distribution Width 14.7 % Platelet Count 198 TH/MM3 Mean Platelet Volume 9.8 FL Neutrophils (%) (Auto) 93.9 % Lymphocytes (%) (Auto) 1.4 % Monocytes (%) (Auto) 3.8 % Eosinophils (%) (Auto) 0.3 % Basophils (%) (Auto) 0.6 % Neutrophils # (Auto) 25.4 TH/MM3 Lymphocytes # (Auto) 0.4 TH/MM3 Monocytes # (Auto) 1.0 TH/MM3 Eosinophils # (Auto) 0.1 TH/MM3 Basophils # (Auto) 0.2 TH/MM3 CBC Comment DIFF FINAL Differential Comment Prothrombin Time 16.0 SEC Prothromb Time International Ratio 1.6 RATIO Activated Partial Thromboplast Time 42.5 SEC Blood Urea Nitrogen 66 MG/DL Creatinine 3.94 MG/DL Random Glucose 100 MG/DL Total Protein 8.0 GM/DL Albumin 1.9 GM/DL Calcium Level 8.4 MG/DL Alkaline Phosphatase 648 U/L Aspartate Amino Transf (AST/SGOT) 73 U/L Alanine Aminotransferase (ALT/SGPT) 28 U/L Total Bilirubin 1.5 MG/DL Sodium Level 121 MEQ/L Potassium Level 4.8 MEQ/L Chloride Level 91 MEQ/L Carbon Dioxide Level 15.8 MEQ/L Anion Gap 14 MEQ/L Estimat Glomerular Filtration Rate 16 ML/MIN Lactic Acid Level 3.1 mmol/L Ammonia LESS THAN 10 MCMOL/L Total Creatine Kinase 140 U/L Troponin I LESS THAN 0.02 NG/ML B-Type Natriuretic Peptide 779 PG/ML Lipase 24 U/L Thyroid Stimulating Hormone 3rd Gen 2.960 uIU/ML Ethyl Alcohol Level LESS THAN 3 MG/DL Urine Color YELLOW Urine Turbidity CLOUDY Urine pH 5.5 Urine Specific [place] 1.016 Urine Protein 300 mg/dL Urine Glucose (UA) 70 mg/dL Urine Ketones NEG mg/dL Urine Occult Blood MOD Urine Nitrite NEG Urine Bilirubin SMALL Urine Urobilinogen LESS THAN 2.0 MG/DL Urine Leukocyte Esterase SMALL Urine RBC 12 /hpf Urine WBC 5 /hpf Urine Amorphous Sediment MOD Microscopic Urinalysis Comment CULT NOT INDICATED Urine Opiates Screen POS Urine Barbiturates Screen NEG Urine Amphetamines Screen NEG Urine Benzodiazepines Screen NEG Urine Cocaine Screen NEG Urine Cannabinoids Screen NEG MDM Supervised Visit with NADIYA: Yes Sepsis Criteria SIRS Criteria (2 or more): WBC > 51782, < 4000 or > 10% bands Sepsis Criteria (SIRS+source): Infect source susp/known Severe Sepsis (+one): Hypotension, Lactate >2 Diagnosis Primary Impression: Sepsis Qualified Codes: A41.9 - Sepsis, unspecified organism Additional Impressions: Right foot ulcer Alcoholism /alcohol abuse Hyponatremia Altered mental status Condition: Stable Talya Capps MD January 15, 2018 02:27
[2018-01-15] MEDS: PIPERACIL-TAZO 4.5 GM PREMIX 100 ML IV SCH ×2 (03:27→10:27)
[2018-01-15] MEDS: CHLORHEXIDINE GLUCONATE 2 % 1 PACK (2 CLOTHS) TOP SCH (04:00)
[2018-01-15] MEDS: CLINDAMYCIN 600 MG/NS PREMIX 50 ML IV SCH ×4 (04:22→21:25)
[2018-01-15] MEDS: SODIUM CHLOR 0.9% 1000 ML INJ 1,000 ML IV SCH ×3 (04:22→17:04)
[2018-01-15] MEDS: HEPARIN SODIUM - SQ 10,000 UNITS/ML VIAL SQ SCH ×3 (07:00→22:47)
[2018-01-15 07:36] LABS: ALBUMIN 1.7 GM/DL (3.4-5.0); ALT (GPT) 97 U/L (12-78); AST (GOT) 374 U/L (15-37); BICARBONATE 13.8 MEQ/L (21.0-32.0); BLOOD UREA NITROGEN 67 MG/DL (7-18); CALCIUM 7.8 MG/DL (8.5-10.1); CHLORIDE 99 MEQ/L (98-107); CREATININE 3.62 MG/DL (0.60-1.30); GLOMERULAR FILTRATION RATE 18 ML/MIN (>89); GLUCOSE,RANDOM 99 MG/DL (74-106); SODIUM (NA) 125 MEQ/L (136-145)
[2018-01-15 07:41] LABS: ALKALINE PHOSPHATASE 608 U/L (45-117); TOTAL BILIRUBIN ADULT 1.9 MG/DL (0.2-1.0); TOTAL PROTEIN 7.3 GM/DL (6.4-8.2)
[2018-01-15] MEDS: INSULIN ASPART SUPPLEMENTAL SCALE SQ SCH ×4 (08:00→20:26)
[2018-01-15] MEDS ORDERED: THIORIDAZINE PO SCH (09:00)
[2018-01-15] MEDS ORDERED: FAMOTIDINE 20 MG/2 ML VIAL IV PUSH SCH (09:00)
[2018-01-15] MEDS: THIORIDAZINE 100 MG PO SCH (10:26)
[2018-01-15] MEDS: ASPIRIN 325 MG TAB PO SCH (10:26)
[2018-01-15] MEDS: SODIUM CHLORIDE 0.9% FLUSH 10 ML FLUSH IV FLUSH SCH ×2 (10:28→20:26)
--- NOTE | 2018-01-15 10:29 | EKG ---
Date Performed: 01/14/2018 Time Performed: 19:56:46 PTAGE: 57 years EKG: Sinus rhythm WITH FIRST DEGREE AV BLOCK PROLONGED QT INTERVAL ABNORMAL ECG PREVIOUS TRACING 08/16/17 Compared to the prior tracing, PVCs no longer present. DOCTOR: Angel Vicente Interpretating Date/Time 01/15/2018 10:27:40
--- NOTE | 2018-01-15 13:26 | MB ---
cc: Sen Washington MD DATE: 01/15/2018 REQUESTING PHYSICIAN: Dr. Portillo. REASON: Severe sepsis. HISTORY OF PRESENT ILLNESS: This is a 57-year-old white male who was brought to the emergency department yesterday with altered mental status. The patient reportedly was only alert to self. He reportedly fell at home 2 days ago, there was a report in the emergency department record. The patient currently is laying in bed and looks very lethargic. He has his eyes open and when I ask him questions, he answers in a very weak voice and shows no interest in holding a conversation. Information is obtained from the medical records since he cannot give any meaningful history. In the emergency department, his blood pressure was 85/53. The white blood cell count was elevated at 27 and lactic acid level of 3.1. Blood cultures were taken on admission and all 4 bottles have gram positive cocci. The patient has a history of Charcot deformity of the feet. He has some oozing of fluid from the left plantar aspect of the foot where there is a bulge from the Charcot deformity. He also has a large blister on the left foot where there is another bulge of the plantar aspect tissue and another bulge at a plantar. His temperature was 100.3 degrees yesterday evening. Urinalysis revealed 5 white cells. Culture was not performed. CT scan of the lower extremity showed findings characteristic of Charcot foot in the mid and hindfoot with collapse of the plantar arch on the right, osteoarthritic changes of the first MTP joint. Findings appear chronic. CT scan of the abdomen and pelvis shows a nonspecific left periaortic borderline prominent lymph nodes and mesenteric edema. Head CT did not show any abnormality. Chest x-ray showed mild cardiomegaly and no focal consolidation or effusion. The patient is currently on oxygen via nasal cannula. His blood pressure is currently 127 systolic. PAST MEDICAL HISTORY: 1. Hypertension. 2. Anxiety/depression. 3. Hiatal hernia. 4. Schizophrenia. 5. Diabetes mellitus. 6. Charcot deformity of the feet. 7. A left pelvic fracture. 8. History of abscess of the right foot. ALLERGIES: VANCOMYCIN, LEVAQUIN, HALOPERIDOL, FLUPHENAZINE, CODEINE. MEDICATIONS: 1. Hydrocortisone. 2. Pepcid. 3. Aspirin. 4. Vistaril. 5. Insulin. 6. Clindamycin. 7. Piperacillin/tazobactam. 8. Heparin. SOCIAL HISTORY: Positive alcohol use reportedly daily. No tobacco. No illicit drugs. FAMILY HISTORY: Unable to obtain. REVIEW OF SYSTEMS: Unable to obtain, the patient's mental status does not allow. PHYSICAL EXAMINATION: GENERAL: This is a well-developed male who is very lethargic. He has his eyes open and attempts to verbalize, but becomes very somnolent. VITAL SIGNS: Temperature 97.7, BP 127/73, heart rate 54, respirations 18. HEENT: The head is atraumatic. Pupils constricted, but reactive to light. The sclerae is pale. Oropharynx, dry mucosa. No lesions. No thrush. NECK: Supple without adenopathy or swelling. LUNGS: Decreased breath sounds at the bases. No audible rhonchi. HEART: Regular S1 and S2. No murmurs, rubs or gallops. ABDOMEN: Bowel sounds present, soft, mildly distended, protruding umbilical abdominal hernia. No mass palpable. RECTAL: Not performed. EXTREMITIES: No clubbing. No cyanosis. Charcot deformity of both feet at the plantar aspect with bulging of the tissues and oozing of clear fluid from the right foot. Otherwise, 1+ edema of the legs. SKIN: No diffuse rash. NEUROLOGIC: Unable to fully assess. PSYCHIATRIC: Unable to fully assess. LABORATORY DATA: WBC 27.0, platelets 198, 93% neutrophils, hemoglobin 7.2. Creatinine 3.62, BUN 67, sodium 125, AST 374, ALT 97, alkaline phosphatase 608. IMPRESSION: 1. Severe sepsis. 2. Bacteremia due to gram positive cocci. One bottle identified as group A beta strep. Potential source is the right foot wound which currently has drainage. 3. Leukocytosis secondary to sepsis. 4. Diabetes mellitus and potentially diabetic foot infection. RECOMMENDATIONS: 1. Continue with piperacillin/tazobactam. 2. Continue clindamycin. 3. Monitor the blood cultures. 4. Send a culture from drainage from the right foot. 5. Monitor white blood cell count. 6. Monitor clinical status and temperature. Thank you for this consultation. I will monitor the patient's progress along with you and make further recommendations and followup if necessary. MD MOE Salas/DL , 12:47 PM , 01:25 PM
--- NOTE | 2018-01-15 15:27 | HHI.CCPN ---
Subjective Remarks/Hospital Course 57-year-old male presents from home with altered mental status. Patient has been altered and is oriented to person only. According to family, patient fell 2 days ago but we do not have any other information regarding this. Patient does have a history of chronic alcohol abuse but denies any alcohol today. Subjective: 01/15: Late entry note patient seen a 7am. Patient lethargic but protecting airway. Patient is altered and oriented to self. Patient noted to be hyponatremic questionable if chronic. He continues on IV fluids NS 175 cc/hr. Objective Vital Signs Date Time Temp Pulse Resp B/P (MAP) Pulse Ox O2 Delivery O2 Flow Rate FiO2 01/15/18 12:00 54 01/15/18 11:44 97.7 01/15/18 07:55 95 Nasal Cannula 2.00 01/15/18 07:00 16 130/59 (82) Intake and Output 01/15/18 01/15/18 01/16/18 08:00 16:00 00:00 Intake Total 3100 ml Output Total 475 ml Balance 2625 ml Result Diagram: 01/14/18201301/15/18 0634 Imaging Last [address] 01/14/182000 Signed Impressions: Service Date/Time: Sunday, January 14, 2018 20:22 - CONCLUSION: Normal examination for a patient of this age. Marcio Hansen MD Chest X-Ray 01/14/182000 Signed Impressions: Service Date/Time: Sunday, January 14, 2018 20:25 - CONCLUSION: 1. Mild cardiomegaly. No focal consolidation or effusion. Marcio Hansen MD Objective Remarks GENERAL: Well-developed, well-nourished male in no apparent distress, flat affect, lethargic SKIN: Focused skin assessment warm/dry. Skin and scleral jaundiced HEAD: Atraumatic. Normocephalic. EYES: Pupils equal and round. Positive scleral icterus. No injection or drainage. ENT: No nasal bleeding or discharge. Mucous membranes pink and moist. NECK: Trachea midline. No JVD. CARDIOVASCULAR: Regular rate and rhythm. No murmur appreciated. RESPIRATORY: No accessory muscle use. Clear to auscultation. Breath sounds equal bilaterally. GASTROINTESTINAL: Abdomen soft, non-tender, nondistended. Hepatic and splenic margins not palpable. MUSCULOSKELETAL: No obvious deformities. No clubbing. No cyanosis. No edema. Chronic appearing right foot plantar wound without discharge NEUROLOGICAL: Awake and alert. No obvious cranial nerve deficits. Motor grossly within normal limits. Lethargic slow speech. A/P Assessment and Plan Severe sepsis Leukocytosis -Aggressive IV fluid hydration-decreased to normal saline 150 cc/hour -CT abdomen and pelvis -CT right lower extremity to rule out osteomyelitis -Pancultures-blood culture grew a beta strep -Infectious disease following-continue Zosyn and clindamycin Hypertension -Due to above -IV fluid resuscitation per sepsis protocol -Initiate Levophed if indicated Diabetes mellitus -Insulin sliding scale, low dose regimen -Hold long-acting insulins while n.p.o. Acute kidney injury -Aggressive IV fluid hydration -Strict I's and O -Monitor electrolytes and creatinine level Schizophrenia -Resume home meds when p.o. -Change formal swallow evaluation to begin to diet DVT GI prophylaxis -Jad's and SCDs -Subcu heparin -IV Pepcid Level 3 follow up No family at bedside Physician Maddi Lewis MD January 15, 2018 15:27
[2018-01-15] MEDS: PIPERACIL-TAZO 3.375 GM PREMIX 50 ML IV SCH ×2 (15:45→21:25)
[2018-01-15] MEDS: FAMOTIDINE 20 MG/2 ML VIAL IV PUSH SCH (20:27)
[2018-01-15] MEDS: HYDROCORTISONE SOD SUCCINATE 100 MG VIAL IV PUSH SCH (22:47)
[2018-01-16] VITALS (14 sets, daily range): BP systolic 114–162; BP diastolic 58–75; PULSE 47–55; RESP 14–32; TEMP 97.5–98.8; O2SAT 96–99
[2018-01-16] MEDS ORDERED: DAPTOmycin INJ 800 MG in SODIUM CHLORIDE 0.9% INJ 100 ML IV SCH ×2
[2018-01-16] MEDS ORDERED: LORazepam 2 MG TAB PO PRN (01:00)
[2018-01-16] MEDS ORDERED: LORazepam 2 MG/ML VIAL IV PUSH PRN ×3 (01:00)
[2018-01-16] MEDS ORDERED: LORazepam 1 MG TAB PO PRN (01:00)
[2018-01-16] MEDS ORDERED: FLUMAZENIL 0.5 MG/5 ML VIAL IV PUSH PRN (01:00)
[2018-01-16] MEDS: LORazepam 2 MG/ML VIAL IV PUSH PRN ×2 (01:20→09:08)
[2018-01-16] MEDS: CHLORHEXIDINE GLUCONATE 2 % 1 PACK (2 CLOTHS) TOP SCH (04:00)
[2018-01-16 04:13] LABS: AUTOMATED NEUTROPHIL # 23.3 TH/MM3 (1.8-7.7); BASOPHIL % 0.2 % (0.0-2.0); EOSINOPHIL # 0.6 TH/MM3 (0-0.4); EOSINOPHIL % 2.4 % (0.0-4.0); HEMATOCRIT 21.1 % (39.0-51.0); LYMPH % 2.2 % (9.0-44.0); LYMPHOCYTE # 0.6 TH/MM3 (1.0-4.8); MEAN CELL VOLUME 90.2 FL (80.0-100.0); MEAN CORPUSCULAR HGB CONC 33.3 % (32.0-36.0); MEAN PLATELET VOLUME 10.6 FL (7.0-11.0); MONO % 2.8 % (0.0-8.0); MONOCYTE # 0.7 TH/MM3 (0-0.9); NEUT % 92.4 % (16.0-70.0); PLATELET COUNT 186 TH/MM3 (150-450); RED BLOOD COUNT 2.33 MIL/MM3 (4.50-5.90); RED CELL DISTRIBUTION WIDTH 14.6 % (11.6-17.2); WHITE BLOOD COUNT 25.2 TH/MM3 (4.0-11.0)
[2018-01-16] MEDS: HYDROCORTISONE SOD SUCCINATE 100 MG VIAL IV PUSH SCH ×4 (04:28→22:54)
[2018-01-16] MEDS: PIPERACIL-TAZO 3.375 GM PREMIX 50 ML IV SCH ×3 (04:28→14:24)
[2018-01-16] MEDS: SODIUM CHLOR 0.9% 1000 ML INJ 1,000 ML IV SCH ×2 (04:29→11:18)
[2018-01-16 04:37] LABS: ALBUMIN 1.6 GM/DL (3.4-5.0); AST (GOT) 529 U/L (15-37); BICARBONATE 13.7 MEQ/L (21.0-32.0); BLOOD UREA NITROGEN 76 MG/DL (7-18); CALCIUM 7.8 MG/DL (8.5-10.1); CHLORIDE 102 MEQ/L (98-107); CREATININE 3.66 MG/DL (0.60-1.30); GLOMERULAR FILTRATION RATE 17 ML/MIN (>89); GLUCOSE,RANDOM 78 MG/DL (74-106); SODIUM (NA) 130 MEQ/L (136-145)
[2018-01-16 04:40] LABS: ALKALINE PHOSPHATASE 545 U/L (45-117); ALT (GPT) 168 U/L (12-78); TOTAL BILIRUBIN ADULT 1.9 MG/DL (0.2-1.0); TOTAL PROTEIN 7.2 GM/DL (6.4-8.2)
[2018-01-16] MEDS: HEPARIN SODIUM - SQ 10,000 UNITS/ML VIAL SQ SCH ×3 (06:26→22:57)
[2018-01-16 07:20] LABS: BANDS 21 % (0-6); METAMYELOCYTES 1 % (0-1); MONOCYTES 1 % (0-8); NEUTROPHIL # MANUAL DIFF 24.9 TH/MM3 (1.8-7.7); POLYS (SEG NEUTROPHILS) 77 % (16-70)
[2018-01-16 07:22] LABS: TOXIC VACUOLATION PRESENT (NONE SEEN)
[2018-01-16] MEDS: INSULIN ASPART SUPPLEMENTAL SCALE SQ SCH ×4 (08:00→20:43)
[2018-01-16] MEDS: ASPIRIN 325 MG TAB PO SCH (08:45)
[2018-01-16] MEDS: THIORIDAZINE 100 MG PO SCH (08:46)
[2018-01-16] MEDS: SODIUM CHLORIDE 0.9% FLUSH 10 ML FLUSH IV FLUSH SCH ×2 (08:47→20:43)
[2018-01-16] MEDS: FAMOTIDINE 20 MG/2 ML VIAL IV PUSH SCH ×2 (08:47→20:44)
--- NOTE | 2018-01-16 14:33 | HHI.IDPN ---
Note Infectious Disease Note Patient is currently somnolent. Was reported to be agitated and was given Ativan earlier. Afebrile. Heart rate is currently 47. Cultures group a beta strep in 4 bottles. He is on O2 via nasal cannula. Reported to have serosanguineous oozing from both feet at the plantar aspect. Patient started on daptomycin. Admitted with altered mental status. In the emergency department, his blood pressure was 85/53. The white blood cell count was elevated at 27 and lactic acid level of 3.1. His blood pressure is currently 127 systolic. PAST MEDICAL HISTORY: 1. Hypertension. 2. Anxiety/depression. 3. Hiatal hernia. 4. Schizophrenia. 5. Diabetes mellitus. 6. Charcot deformity of the feet. 7. A left pelvic fracture. 8. History of abscess of the right foot. ALLERGIES: VANCOMYCIN, LEVAQUIN, HALOPERIDOL, FLUPHENAZINE, CODEINE. MEDICATIONS: Current Medications Medications (Trade) Dose Ordered Sig/Portia Route PRN Reason Start Time Stop Time Status Last Admin Dose Admin Sodium Chloride 1,000 ml @ 150 mls/hr Q6H40M IV 01/14/18 22:42 01/16/18 11:18 Sodium Chloride (NS Flush) 2 ml UNSCH PRN IV FLUSH FLUSH AFTER USING IV ACCESS 01/14/18 22:45 Sodium Chloride (NS Flush) 2 ml BID IV FLUSH 01/15/18 09:00 01/16/18 08:47 Hydrocortisone Sodium Succinate (SoluCORTEF INJ) 50 mg Q6H IV PUSH 01/15/18 23:00 01/16/18 11:24 Albuterol/ Ipratropium (Duoneb Neb) 1 ampule Q2HR NEB PRN INH WHEEZING 01/14/18 22:45 Heparin Sodium (Porcine) (Heparin Inj) 5,000 units Q8H SQ 01/14/18 23:00 01/16/18 06:26 Miscellaneous Information ([facility] [facility] 1 Q361D XX 01/14/18 22:45 Chlorhexidine Gluconate (Chlorhexidine 2% Cloth) 3 pack Taper DAILY@04 TOP 01/15/18 04:00 01/11/19 03:59 01/16/18 04:00 Chlorhexidine Gluconate (Chlorhexidine 2% Cloth) 3 pack UNSCH PRN TOP HYGIENIC CARE 01/14/18 22:45 Acetaminophen (Tylenol) 650 mg Q4H PRN PO fever or pain 1-5 01/15/18 01:00 Morphine Sulfate (Morphine Inj) 2 mg Q4H PRN IV PUSH pain 6-10 01/15/18 01:00 Aspirin (Aspirin) 325 mg DAILY PO 01/15/18 09:00 01/16/18 08:45 Hydroxyzine Pamoate (Vistaril) 50 mg BID PO 01/15/18 09:00 01/16/18 08:45 Dextrose (D50w (Vial) Inj) 50 ml UNSCH PRN IV PUSH HYPOGLYCEMIA-SEE COMMENTS 01/15/18 01:00 Glucagon (Glucagon Inj) 1 mg UNSCH PRN OTHER HYPOGLYCEMIA-SEE COMMENTS 01/15/18 01:00 Insulin Aspart (NovoLOG SUPPLEMENTAL SCALE) 1 ACHS SLIDING SCALE SQ 01/15/18 08:00 Patient Own Medication PT OWN MED: THIORIDAZINE DOSE 10... DAILY PO 01/15/18 09:00 01/16/18 08:46 Piperacillin Sod/ Tazobactam Sod 50 ml @ 200 mls/hr Q6H IV 01/15/18 16:00 01/16/18 08:58 Famotidine (Pepcid Inj) 10 mg Q12HR IV PUSH 01/15/18 21:00 01/16/18 08:47 Daptomycin 800 mg/ Sodium Chloride 100 ml @ 200 mls/hr Q48H IV 01/16/18 00:00 01/16/18 00:30 Flumazenil (Romazicon Inj) 0.2 mg Q1M PRN IV PUSH SEE LABEL COMMENTS 01/16/18 01:00 Lorazepam (Ativan) 1 mg Q4H PRN PO CIWA 8 - 10 01/16/18 01:00 Lorazepam (Ativan Inj) 1 mg Q4H PRN IV PUSH CIWA 8 - 10 01/16/18 01:00 Lorazepam (Ativan) 2 mg Q2H PRN PO CIWA 11-14 01/16/18 01:00 Lorazepam (Ativan Inj) 2 mg Q2H PRN IV PUSH CIWA 11-14 01/16/18 01:00 01/16/18 09:08 Lorazepam (Ativan Inj) 2 mg Q1H PRN IV PUSH CIWA 15-20 01/16/18 01:00 Lorazepam (Ativan Inj) 2 mg Q15M PRN IV PUSH CIWA > 20 01/16/18 01:00 SOCIAL HISTORY: Positive alcohol use reportedly daily. No tobacco. No illicit drugs. Objective: Vital Signs Date Time Temp Pulse Resp B/P (MAP) Pulse Ox O2 Delivery O2 Flow Rate FiO2 01/16/18 12:00 97.5 50 25 151/72 (98) 97 01/16/18 12:00 50 01/16/18 10:00 51 01/16/18 08:00 53 01/16/18 08:00 98.6 53 32 162/68 (99) 96 01/16/18 07:00 97 Nasal Cannula 2.00 01/16/18 06:00 52 01/16/18 04:00 54 01/16/18 04:00 98.6 54 14 147/70 (95) 98 01/16/18 02:00 55 01/16/18 00:00 54 01/16/18 00:00 98.8 54 15 122/75 (91) 99 01/15/18 22:00 58 01/15/18 20:00 98.1 51 15 129/58 (81) 99 01/15/18 20:00 51 01/15/18 19:14 96 Nasal Cannula 2.00 01/15/18 18:00 51 01/15/18 17:00 97.2 01/15/18 16:00 51 01/15/18 15:00 51 Laboratory Tests Test 01/14/18 20:14 01/16/18 03:46 White Blood Count 27.0 TH/MM3 25.2 TH/MM3 Red Blood Count 2.39 MIL/MM3 2.33 MIL/MM3 Hemoglobin 7.2 GM/DL 7.0 GM/DL Hematocrit 21.7 % 21.1 % Mean Corpuscular Volume 90.7 FL 90.2 FL Mean Corpuscular Hemoglobin 30.0 PG 30.0 PG Mean Corpuscular Hemoglobin Concent 33.1 % 33.3 % Red Cell Distribution Width 14.7 % 14.6 % Platelet Count 198 TH/MM3 186 TH/MM3 Mean Platelet Volume 9.8 FL 10.6 FL Neutrophils (%) (Auto) 93.9 % 92.4 % Lymphocytes (%) (Auto) 1.4 % 2.2 % Monocytes (%) (Auto) 3.8 % 2.8 % Eosinophils (%) (Auto) 0.3 % 2.4 % Basophils (%) (Auto) 0.6 % 0.2 % Neutrophils # (Auto) 25.4 TH/MM3 23.3 TH/MM3 Lymphocytes # (Auto) 0.4 TH/MM3 0.6 TH/MM3 Monocytes # (Auto) 1.0 TH/MM3 0.7 TH/MM3 Eosinophils # (Auto) 0.1 TH/MM3 0.6 TH/MM3 Basophils # (Auto) 0.2 TH/MM3 0.0 TH/MM3 CBC Comment DIFF FINAL AUTO DIFF Differential Comment FINAL DIFF MANUAL Differential Total Cells Counted 100 Neutrophils % (Manual) 77 % Band Neutrophils % 21 % Monocytes % 1 % Neutrophils # (Manual) 24.9 TH/MM3 Metamyelocytes 1 % Toxic Vacuolation PRESENT Platelet Estimate NORMAL Platelet Morphology Comment NORMAL Laboratory Tests Test 01/14/18 20:14 01/14/18 23:00 01/15/18 06:34 01/15/18 16:43 Blood Urea Nitrogen 66 MG/DL 67 MG/DL Creatinine 3.94 MG/DL 3.62 MG/DL Random Glucose 100 MG/DL 99 MG/DL Total Protein 8.0 GM/DL 7.3 GM/DL Albumin 1.9 GM/DL 1.7 GM/DL Calcium Level 8.4 MG/DL 7.8 MG/DL Alkaline Phosphatase 648 U/L 608 U/L Aspartate Amino Transf (AST/SGOT) 73 U/L 374 U/L Alanine Aminotransferase (ALT/SGPT) 28 U/L 97 U/L Total Bilirubin 1.5 MG/DL 1.9 MG/DL Sodium Level 121 MEQ/L 125 MEQ/L 127 MEQ/L Potassium Level 4.8 MEQ/L 5.0 MEQ/L Chloride Level 91 MEQ/L 99 MEQ/L Carbon Dioxide Level 15.8 MEQ/L 13.8 MEQ/L Anion Gap 14 MEQ/L 12 MEQ/L Estimat Glomerular Filtration Rate 16 ML/MIN 18 ML/MIN Lactic Acid Level 3.1 mmol/L 1.7 mmol/L 1.4 mmol/L Ammonia LESS THAN 10 MCMOL/L Total Creatine Kinase 140 U/L Troponin I LESS THAN 0.02 NG/ML B-Type Natriuretic Peptide 779 PG/ML Lipase 24 U/L Thyroid Stimulating Hormone 3rd Gen 2.960 uIU/ML Test 01/15/18 21:53 01/16/18 03:46 01/16/18 12:18 Sodium Level 128 MEQ/L 130 MEQ/L 130 MEQ/L Blood Urea Nitrogen 76 MG/DL Creatinine 3.66 MG/DL Random Glucose 78 MG/DL Total Protein 7.2 GM/DL Albumin 1.6 GM/DL Calcium Level 7.8 MG/DL Alkaline Phosphatase 545 U/L Aspartate Amino Transf (AST/SGOT) 529 U/L Alanine Aminotransferase (ALT/SGPT) 168 U/L Total Bilirubin 1.9 MG/DL Potassium Level 4.8 MEQ/L Chloride Level 102 MEQ/L Carbon Dioxide Level 13.7 MEQ/L Anion Gap 14 MEQ/L Estimat Glomerular Filtration Rate 17 ML/MIN Microbiology Date/Time Source Procedure Growth Status 01/14/18 20:14 Blood Peripheral Aerobic Blood Culture - Preliminary Group A Beta Strep Resulted 01/14/18 20:14 Anaerobic Blood Culture - Preliminary Group A Beta Strep Resulted 01/14/18 20:09 Blood Peripheral Aerobic Blood Culture - Preliminary Group A Beta Strep Resulted 01/14/18 20:09 Anaerobic Blood Culture - Preliminary Group A Beta Strep Resulted 01/15/18 22:15 Wound Foot Gram Stain - Final Resulted 01/15/18 22:15 Wound Foot Wound Culture - Preliminary NO GROWTH IN 24 HOURS. Resulted Imaging: Head CT 01/14/182000 Signed Impressions: Service Date/Time: Sunday, January 14, 2018 20:22 - CONCLUSION: Normal examination for a patient of this age. Marcio Hansen MD Chest X-Ray 01/14/182000 Signed Impressions: Service Date/Time: Sunday, January 14, 2018 20:25 - CONCLUSION: 1. Mild cardiomegaly. No focal consolidation or effusion. Marcio Hansen MD Lower Extremity CT 01/14/18 Signed Impressions: Service Date/Time: Sunday, January 14, 2018 23:38 - CONCLUSION: 1. CT findings characteristic of a severe Charcot foot in the mid and hindfoot with collapse of the plantar arch. Osteoarthritic changes of the first MTP joint 2. However, findings all appear to be chronic with no acute osseous injury Marquis Mcdonald MD Abdomen/Pelvis CT 01/14/18 0000 Signed Impressions: Service Date/Time: Sunday, January 14, 2018 23:35 - CONCLUSION: 1. CT findings suggest volume overload or low oncotic pressures with some flank and mesenteric edema, gallbladder wall thickening and some free fluid in the pelvis. Heart size is somewhat prominent. 2. Bilateral symmetric gynecomastia. Nonspecific findings but can be associated with some chronic disease processes or medications. 3. Left periaortic borderline prominent lymph nodes. Again, nonspecific but may be reactive associated with the aforementioned mesenteric edema. 4. 5.7 cm periumbilical fatty hernia. There is now some fluid along the periphery of the hernia. This could be related to the generalized edema described above although fatty infarction could have a similar radiographic presentation. Please correlate with clinical symptomatology Marquis Mcdonald MD PHYSICAL EXAMINATION: GENERAL: Patient is very somnolent. Difficult to arouse. HEENT: The head is atraumatic. Pupils constricted, but reactive to light. The sclerae is pale. Oropharynx, dry mucosa. No lesions. No thrush. NECK: Supple without adenopathy or swelling. LUNGS: Decreased breath sounds. HEART: Distant S1 and S2. No murmurs, rubs or gallops. ABDOMEN: Bowel sounds present, soft, mildly distended, protruding umbilical abdominal hernia. No mass palpable. EXTREMITIES: No clubbing. No cyanosis. Charcot deformity of both feet at the plantar aspect with bulging deformity. 1+ edema of the legs. SKIN: No diffuse rash. NEUROLOGIC: Unable to fully assess. PSYCHIATRIC: Unable to fully assess. IMPRESSION: 1. Severe sepsis. 2. Bacteremia due to group A beta strep. Source is very likely infection of the foot. 3. Leukocytosis secondary to sepsis. 4. Diabetic foot infection. RECOMMENDATIONS: 1. Stop piperacillin/tazobactam 2. Stop daptomycin. 3. Begin intravenous cefazolin. 4. Repeat the blood cultures. 5. Monitor wound culture of the foot. 6. Monitor white blood cell count. 7. Follow clinical status and temperature. Discussed with RN. Sen Washington MD January 16, 2018 14:33
--- NOTE | 2018-01-16 15:12 | PD.WCN.NOT ---
Wound Consult Description: Received wound management consult from Doctor Maddi Dominguez for B/L feet. Communicated with: HANSA Watkins and Doctor Maddi Dominguez Recommendation: 1. Consult podiatry for bilateral feet wounds, possible debridement. 2.Please cleanse wounds to bilateral feet with normal saline and cover open wounds with Maxorb Extra AG and secure with ABD pads, rolled gauze and tape. change dressing every 2 days until seen by podiatry 3. Order wound culture for L foot wound. 4. Please cleanse skin tear to R guan with normal saline or wound cleanser and cover with optifoam secured with rolled gauze and tape. Change dressing every 3 days or PRN if saturated or dislodged. Additional Information: Patient seen on 5th floor [facility]. Patient assessed with HANSA Watkins IM and racebook writer. Bilateral feet are noted open to air present with deformity. R plantar foot wound is noted with 100% pale red hypergranulated tissue that presents as boggy. Periwound is also boggy with hyperkeratotic tissue noted to wound margins that is circumferential, Wound drainage is minimal and sero-sanguinous with mild odor. Wound has round shape. L foot wound presents as a large partially unroofed bulla that is noted to plantar L foot and extends to the medial aspect . Entire bulla measures ~13cm x ~11cm, opening of bulla is located on L medial foot measuring 2cmx 5cm x ~ 0.1cm. Pressed lightly on roofed bulla and purulent yellow, cloudy and sero- sanguinous drainage is expressed in a moderate to heavy amount with foul odor. Opened area within bulla presents with ~50% pink tissue and ~50% yellow tissue. Cleansed open wounds to bilateral feet with normal saline and patted dry.Wound culture was obtained of L foot wound. Applied Maxorb extra AG just over open wounds, cut to fit. Covered with ABD pads and secured with rolled gauze and tape. R guan is noted with small skin tear that is weeping sero-sanguinous drainage that is without odor. Cleansed wound with normal saline and pat dry.Applied Xeroform gauze in a single layer just over open wound and covered with dry gauze , secured with rolled gauze and tape. recommended optifoam basic, dressing is not on hand.RN to apply when supplies obtained. Alexa Wilkinson [facility] January 16, 2018 15:12
[2018-01-16] MEDS ORDERED: SODIUM BICARBONATE 8.4% INJ 50 MEQ/50 ML SYR IV PUSH ONE (16:15)
[2018-01-16] MEDS ORDERED: SODIUM BICARBONATE 8.4% INJ 50 ML ONE (16:19)
--- NOTE | 2018-01-16 16:46 | HHI.CCPN ---
Subjective Remarks/Hospital Course 57-year-old male presents from home with altered mental status. Patient has been altered and is oriented to person only. According to family, patient fell 2 days ago but we do not have any other information regarding this. Patient does have a history of chronic alcohol abuse but denies any alcohol today. Subjective: 01/15: Late entry note patient seen a 7am. Patient lethargic but protecting airway. Patient is altered and oriented to self. Patient noted to be hyponatremic questionable if chronic. He continues on IV fluids NS 175 cc/hr. 01/16: Patient noted to be more lethargic today ABG performed severe metabolic acidosis noted IV fluids normal saline discontinued. She received 50 mEq of sodium bicarbonate IV push. Patient started on sodium bicarbonate infusion at 100 cc/hour. Antipsychotic medications Thorazine placed on hold all sedative type medications placed on hold. Patient was noted to have elevated creatinine nephrology consulted. Noted elevation in LFTs, hepatitis profile and liver ultrasound pending, likely shock liver secondary to hypotension due to septic shock. Objective Vital Signs Date Time Temp Pulse Resp B/P (MAP) Pulse Ox O2 Delivery O2 Flow Rate FiO2 01/16/18 14:00 47 01/16/18 12:00 97.5 25 151/72 (98) 97 01/16/18 07:00 Nasal Cannula 2.00 Intake and Output 01/16/18 01/16/18 01/17/18 08:00 16:00 00:00 Intake Total 150 ml 752 ml Output Total 700 ml Balance -550 ml 752 ml Result Diagram: 01/16/18 0346 01/16/18 1218 Other Results Laboratory Tests Test 01/16/18 16:08 Blood Gas Puncture Site RT RADIAL Blood Gas Patient Temperature 98.6 Blood Gas HCO3 9 mmol/L (22-26) Blood Gas Base Excess -16.7 mmol/L (-2-2) Blood Gas Oxygen Saturation 95 % (90-100) Arterial Blood pH 7.30 (7.380-7.420) Arterial Blood Partial Pressure CO2 18 mmHg (38-42) Arterial Blood Partial Pressure O2 116 mmHg (61-120) Arterial Blood Oxygen Content 12.7 Vol % (12.0-20.0) Arterial Blood Carboxyhemoglobin 1.0 % (0-4) Arterial Blood Methemoglobin 1.5 % (0-2) Blood Gas Hemoglobin 9.4 G/DL (12.0-16.0) Blood Gas Inspired Oxygen 21 % Imaging Last Impressions Head CT 01/14/182000 Signed Impressions: Service Date/Time: Sunday, January 14, 2018 20:22 - CONCLUSION: Normal examination for a patient of this age. Marcio Hansen MD Chest X-Ray 01/14/182000 Signed Impressions: Service Date/Time: Sunday, January 14, 2018 20:25 - CONCLUSION: 1. Mild cardiomegaly. No focal consolidation or effusion. Marcio Hansen MD Lower Extremity CT 01/14/18 0000 Signed Impressions: Service Date/Time: Sunday, January 14, 2018 23:38 - CONCLUSION: 1. CT findings characteristic of a severe Charcot foot in the mid and hindfoot with collapse of the plantar arch. Osteoarthritic changes of the first MTP joint 2. However, findings all appear to be chronic with no acute osseous injury Marquis Mcdonald MD Abdomen/Pelvis CT 01/14/18 Signed Impressions: Service Date/Time: Sunday, January 14, 2018 23:35 - CONCLUSION: 1. CT findings suggest volume overload or low oncotic pressures with some flank and mesenteric edema, gallbladder wall thickening and some free fluid in the pelvis. Heart size is somewhat prominent. 2. Bilateral symmetric gynecomastia. Nonspecific findings but can be associated with some chronic disease processes or medications. 3. Left periaortic borderline prominent lymph nodes. Again, nonspecific but may be reactive associated with the aforementioned mesenteric edema. 4. 5.7 cm periumbilical fatty hernia. There is now some fluid along the periphery of the hernia. This could be related to the generalized edema described above although fatty infarction could have a similar radiographic presentation. Please correlate with clinical symptomatology Marquis Mcdonald MD Last [address] 01/14/182000 Signed Impressions: Service Date/Time: Sunday, January 14, 2018 20:22 - CONCLUSION: Normal examination for a patient of this age. Marcio Hansen MD Chest X-Ray 01/14/182000 Signed Impressions: Service Date/Time: Sunday, January 14, 2018 20:25 - CONCLUSION: 1. Mild cardiomegaly. No focal consolidation or effusion. Marcio Hansen MD Objective Remarks GENERAL: Well-developed, well-nourished male in no apparent distress, flat affect, lethargic SKIN: Focused skin assessment warm/dry. Skin and scleral jaundiced HEAD: Atraumatic. Normocephalic. EYES: Pupils equal and round. Positive scleral icterus. No injection or drainage. ENT: No nasal bleeding or discharge. Mucous membranes pink and moist. NECK: Trachea midline. No JVD. CARDIOVASCULAR: Regular rate and rhythm. No murmur appreciated. RESPIRATORY: No accessory muscle use. Clear to auscultation. Breath sounds equal bilaterally. GASTROINTESTINAL: Abdomen soft, non-tender, nondistended. Hepatic and splenic margins not palpable. MUSCULOSKELETAL: No obvious deformities. No clubbing. No cyanosis. No edema. Chronic appearing right foot plantar wound without discharge NEUROLOGICAL: Awake and alert. No obvious cranial nerve deficits. Motor grossly within normal limits. Lethargic slow speech. A/P Assessment and Plan Plan by systems: Neurologic: Metabolic encephalopathy secondary to sepsis Schizophrenia Obtain an ammonia level Monitor sodium level 130 Neurology checks per ICU protocol Hold antipsychotic meds in the setting of lethargy Respiratory: Obtain O2 saturation greater than 92% patient currently on 3 L nasal cannula O2 saturation 97 % Duo nebs every 4 hours as needed for wheeze Cardiovascular: Septic shock History of hypertension Norepinephrine discontinued 01/15 0500 Maintain MAP greater than 65 Hold all antihypertensive medications in the setting of septic shock Renal: Maintain almaraz-noted fluid overload 7 liters positive. Will give Lasix 40 mg IV 1 dose Nephrology consulted -- Strict I/Os FEN/GI: Electrolyte abnormality Metabolic acidosis AK I Elevated LFTs Normal saline discontinued. Sodium bicarbonate 50 mEq IV push Sodium bicarbonate infusion at 100 cc/hr ABG 7.30/ 17/ 116/ 8/ -16.7 Creatinine 3.3-> 3.6 Monitor CMP Repeat BMP in 4 hours follow-up result AK I secondary to hypotension and septic shock Follow-up ultrasound of the liver Follow-up hepatitis panel Follow-up formal swallow evaluation Heme/ID: Anemia Persistent leukocytosis Severe sepsis Hemoglobin 7.0 this a.m. ,repeat H&H Follow-up INR ID following-clindamycin and Zosyn /2 blood culture-group A beta 5/3-follow-up wound culture bilateral feet -Infectious disease following-continue Zosyn and clindamycin Endocrine: Diabetes mellitus -Insulin sliding scale per ICU protocol, low dose regimen -Hold long-acting insulins while n.p.o. -- SSI MSK : Bilateral wound infection feet Podiatry consulted Rule out osteomyelitis PT evaluation and treat Wound care consulted following recommendations Prophylaxis: GI Prophylaxis Famotidine BID DVT Prophylaxis -- SCDs Teds and SCDs Lines: Peripheral IVs 2. Central line if indicated Dispo: my billing statement This patient remains critically ill with one or more organ systems which are or may become a threat to life. I have spent in excess of 43 minutes discontinuously in the care and management of this patient. This time is exclusive of procedures, and includes, but is not limited to, evaluation of the patient, review of the medical record, discussions with family, consultants, nursing staff, or respiratory therapy, and documentation in the medical record. Telephone patient's mother Ms. Yanes and provided medical status update. Physician Maddi Lewis MD January 16, 2018 16:46
--- NOTE | 2018-01-16 17:38 | PD.CONS ---
HPI Service Nephrology Consult Requested By Reason for Consult Acute on chronic kidney disease Primary Care Physician Unknown History of Present Illness Mr. Yaens was admitted with altered mental status and acute on chronic kidney disease as well as hyponatremia. He has history of schizophrenia and psychogenic polydipsia. Admission serum Na was 121. I had seen in August of 2016 when a diagnosis of polydipsia was entertained. Patient is in septic shock. He is about to be intubated. He is lethargic, poorly responsive. Profoundly acidemic. Bicarbonate drip initiated. He has leg ulcers. Positive blood culture fro Strep. 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 Past Medical History Hypertension Diabetes Chronic right plantar wound CHF (echo February 2017 w/ EF 35-40%) PAD Anxiety Schizophrenia Past Surgical History Foot I&D Reported Medications Reported Meds & Active Scripts Active Hydrocodone-Acetaminophen 10-325 mg Tab 1 Tab PO BID PRN Vistaril (Hydroxyzine Pamoate) 50 Mg Cap 50 Mg PO BID Norvasc (Amlodipine Besylate) 10 Mg Tab 10 Mg PO DAILY Reported Glipizide 10 Mg Tab 10 Mg PO BIDAC Aspirin 325 Mg Tab 325 Mg PO DAILY [Mellaril] 100 Mg PO BID Active Ordered Medications Current Medications Medications (Trade) Dose Ordered Sig/Portia Route Start Time Stop Time Status Last Admin (NS Flush) 2 ml UNSCH PRN IV FLUSH 01/14/18 22:45 (NS Flush) 2 ml BID IV FLUSH 01/15/18 09:00 01/16/18 08:47 (SoluCORTEF INJ) 50 mg Q6H IV PUSH 01/15/18 23:00 01/16/18 11:24 (Duoneb Neb) 1 ampule Q2HR NEB PRN INH 01/14/18 22:45 (Heparin Inj) 5,000 units Q8H SQ 01/14/18 23:00 01/16/18 14:24 ([facility] [place] [facility]) 1 Q361D XX 01/14/18 22:45 (Chlorhexidine 2% Cloth) 3 pack Taper DAILY@04 TOP 01/15/18 04:00 01/11/19 03:59 01/16/18 04:00 (Chlorhexidine 2% Cloth) 3 pack UNSCH PRN TOP 01/14/18 22:45 (Tylenol) 650 mg Q4H PRN PO 01/15/18 01:00 (Morphine Inj) 2 mg Q4H PRN IV PUSH 01/15/18 01:00 Future Hold (Aspirin) 325 mg DAILY PO 01/15/18 09:00 01/16/18 08:45 (Vistaril) 50 mg BID PO 01/15/18 09:00 Future Hold 01/16/18 08:45 (D50w (Vial) Inj) 50 ml UNSCH PRN IV PUSH 01/15/18 01:00 (Glucagon Inj) 1 mg UNSCH PRN OTHER 01/15/18 01:00 (NovoLOG SUPPLEMENTAL SCALE) 1 ACHS SLIDING SCALE SQ 01/15/18 08:00 Patient Own Medication PT OWN MED: THIORIDAZINE DOSE 10... DAILY PO 01/15/18 09:00 Future Hold 01/16/18 08:46 (Pepcid Inj) 10 mg Q12HR IV PUSH 01/15/18 21:00 01/16/18 08:47 (Romazicon Inj) 0.2 mg Q1M PRN IV PUSH 01/16/18 01:00 (Ativan) 1 mg Q4H PRN PO 01/16/18 01:00 Future Hold (Ativan Inj) 1 mg Q4H PRN IV PUSH 01/16/18 01:00 Future Hold (Ativan) 2 mg Q2H PRN PO 01/16/18 01:00 Future Hold (Ativan Inj) 2 mg Q2H PRN IV PUSH 01/16/18 01:00 Future Hold 01/16/18 09:08 (Ativan Inj) 2 mg Q1H PRN IV PUSH 01/16/18 01:00 Future Hold (Ativan Inj) 2 mg Q15M PRN IV PUSH 01/16/18 01:00 Future Hold Cefazolin Sodium/ Dextrose 50 ml @ 100 mls/hr Q12H IV 01/16/18 15:00 Sodium Bicarbonate 150 meq/Dextrose 1,000 ml @ 100 mls/hr Q10H IV 01/16/18 16:15 Family History not available. Social History apparently has history of ETOH abuse. Physical Exam Vital Signs Vital Signs Date Time Temp Pulse Resp B/P (MAP) Pulse Ox O2 Delivery O2 Flow Rate FiO2 01/16/18 14:00 47 01/16/18 12:00 97.5 50 25 151/72 (98) 97 01/16/18 12:00 50 01/16/18 10:00 51 01/16/18 08:00 53 01/16/18 08:00 98.6 53 32 162/68 (99) 96 01/16/18 07:00 97 Nasal Cannula 2.00 01/16/18 06:00 52 01/16/18 04:00 54 01/16/18 04:00 98.6 54 14 147/70 (95) 98 01/16/18 02:00 55 01/16/18 00:00 54 01/16/18 00:00 98.8 54 15 122/75 (91) 99 01/15/18 22:00 58 01/15/18 20:00 98.1 51 15 129/58 (81) 99 01/15/18 20:00 51 01/15/18 19:14 96 Nasal Cannula 2.00 01/15/18 18:00 51 Physical Exam GENERAL: Obese, lethargic, poorly responsive. SKIN: Warm and dry. HEAD: Normocephalic. EYES: No scleral icterus. No injection or drainage. NECK: Supple, trachea midline. No JVD or lymphadenopathy. CARDIOVASCULAR: regular tachycardia. RESPIRATORY: Breath sounds equal bilaterally. No accessory muscle use. GASTROINTESTINAL: Abdomen soft, obese. MUSCULOSKELETAL: Edema of the extremities. Leg wounds. Dressings in place. BACK: Nontender without obvious deformity. No CVA tenderness. Laboratory Laboratory Tests Test 01/15/18 21:53 01/16/18 03:46 01/16/18 12:18 01/16/18 15:56 Sodium Level 128 130 130 132 White Blood Count 25.2 Red Blood Count 2.33 Hemoglobin 7.0 Hematocrit 21.1 Mean Corpuscular Volume 90.2 Mean Corpuscular Hemoglobin 30.0 Mean Corpuscular Hemoglobin Concent 33.3 Red Cell Distribution Width 14.6 Platelet Count 186 Mean Platelet Volume 10.6 Neutrophils (%) (Auto) 92.4 Lymphocytes (%) (Auto) 2.2 Monocytes (%) (Auto) 2.8 Eosinophils (%) (Auto) 2.4 Basophils (%) (Auto) 0.2 Neutrophils # (Auto) 23.3 Lymphocytes # (Auto) 0.6 Monocytes # (Auto) 0.7 Eosinophils # (Auto) 0.6 Basophils # (Auto) 0.0 CBC Comment AUTO DIFF Differential Total Cells Counted 100 Neutrophils % (Manual) 77 Band Neutrophils % 21 Monocytes % 1 Neutrophils # (Manual) 24.9 Metamyelocytes 1 Differential Comment FINAL DIFF MANUAL Toxic Vacuolation PRESENT Platelet Estimate NORMAL Platelet Morphology Comment NORMAL Blood Urea Nitrogen 76 Creatinine 3.66 Random Glucose 78 Total Protein 7.2 Albumin 1.6 Calcium Level 7.8 Alkaline Phosphatase 545 Aspartate Amino Transf (AST/SGOT) 529 Alanine Aminotransferase (ALT/SGPT) 168 Total Bilirubin 1.9 Potassium Level 4.8 Chloride Level 102 Carbon Dioxide Level 13.7 Anion Gap 14 Estimat Glomerular Filtration Rate 17 Test 01/16/18 16:08 Blood Gas Puncture Site RT RADIAL Blood Gas Patient Temperature 98.6 Blood Gas HCO3 9 Blood Gas Base Excess -16.7 Blood Gas Oxygen Saturation 95 Arterial Blood pH 7.30 Arterial Blood Partial Pressure CO2 18 Arterial Blood Partial Pressure O2 116 Arterial Blood Oxygen Content 12.7 Arterial Blood Carboxyhemoglobin 1.0 Arterial Blood Methemoglobin 1.5 Blood Gas Hemoglobin 9.4 Blood Gas Inspired Oxygen 21 Date/Time Source Procedure Growth Status 01/14/18 20:14 Blood Peripheral Aerobic Blood Culture - Preliminary Group A Beta Strep Resulted 01/14/18 20:14 Anaerobic Blood Culture - Preliminary Group A Beta Strep Resulted 01/15/18 22:15 Wound Foot Gram Stain - Final Resulted 01/15/18 22:15 Wound Foot Wound Culture - Preliminary NO GROWTH IN 24 HOURS. Resulted Result Diagram: 01/16/18 0346 01/16/18 9419 Assessment and Plan Problem List: (1) Acute worsening of stage 3 chronic kidney disease ICD Codes: N18.3 - Chronic kidney disease, stage 3 (moderate) Plan: patient is in septic shock. BISHOP likely due to ATN from sepsis. It should be noted that last year his creatinine was around 1.7, in November of this year was ranging between 2.76 and 2.82. He was admitted with a serum Creatinine of 3.99, now about 3.6. Monitor urine output. Continue bicarbonate drip for now, but he appears to have signs of fluid overload, anasarca. Avoid nephrotoxic agents. Maintain MAP of more than 65. Prognosis is poor. (2) Sepsis ICD Codes: A41.9 - Sepsis, unspecified organism Status: Resolved Plan: ID following. On Cefazolin. Source is likely infected leg wounds. (3) Hyponatremia ICD Codes: E87.1 - Hypo-osmolality and hyponatremia Status: Acute Plan: Previously there was a diagnosis of psychogenic polydipsia. With his history of alcohol abuse, beer potomania is also possible. (4) Anemia ICD Codes: D64.9 - Anemia, unspecified Status: Chronic Plan: Rule out bleeding. Needs transfusion. Assessment and Plan Thanks for the consult. His prognosis is poor. Problem Qualifiers (1) Sepsis: Qualified Codes: A41.9 - Sepsis, unspecified organism Shaun Mcmahon MD January 16, 2018 17:38
[2018-01-16] MEDS: ceFAZolin 2 GM PREMIX 50 ML IV SCH (17:55)
[2018-01-16] MEDS: SODIUM BICARBONATE 8.4% INJ 150 MEQ in DEXTROSE 5% IN WATE 1000ML INJ 850 ML IV SCH ×2 (17:55)
--- NOTE | 2018-01-16 18:09 | RADRPT ---
EXAM DATE/TIME: 01/16/2018 16:59 [facility] COMPARISON: CT ABDOMEN & PELVIS W/O CONTRAST, January 14, 2018, 23:35. INDICATIONS : Enlarged liver. MEDICAL HISTORY : Hypertension. Anticoagulant therapy. Renal disease. Diabetes. VRE. SURGICAL HISTORY : Right foot surgery. Left foot ulcer debridement. ENCOUNTER: Initial ACUITY: 1 day PAIN SCORE: Nonresponsive. LOCATION: Bilateral upper quadrant MEASUREMENTS: LIVER: 21.2 cm length COMMON DUCT: 7 mm RIGHT KIDNEY: 12.3 x 5.5 x 5.9 cm SPLEEN: 12.8 cm length FINDINGS: LIVER: Diffusely increased hepatic echogenicity with hepatomegaly. Trace ascites primarily along the margins of the liver and spleen. COMMON DUCT: No intraluminal mass or stone visualized. GALLBLADDER: Single echogenic shadowing stone in the gallbladder neck measuring up to 9 mm. There is diffuse gallb ladder wall thickening with mild pericholecystic fluid. PANCREAS: The visualized portions are within normal limits. RIGHT KIDNEY: No hydronephrosis, stone or mass. SPLEEN: No focal lesion. CONCLUSION: 1. Hepatomegaly and diffuse increased hepatic echogenicity without intrahepatic ductal dilatation or focal mass. Findings are most consistent with hepatic steatosis or medical liver disease. 2. Trace ascites. 3. Cholelithiasis with gallbladder wall prominence and trace pericholecystic fluid. These findings ma y be seen in the setting of chronic liver disease or ascites and significantly limit ultrasound evalu ation for acute cholecystitis. If there is significant clinical concern regarding acute cholecystitis , HIDA scan may be performed to evaluate for cystic duct patency. Nam Tinajero MD on January 16, 2018 at 18:02 Board Certified Radiologist. This report was verified electronically.
[2018-01-16 18:21] LABS: HEMATOCRIT 31.3 % (39.0-51.0); HEMOGLOBIN 10.2 GM/DL (13.0-17.0)
[2018-01-16 18:31] LABS: INTERNATIONAL NORMALIZED RATIO 1.8 RATIO; PROTHROMBIN TIME - PATIENT 17.9 SEC (9.8-11.6)
[2018-01-16 18:42] LABS: BICARBONATE 11.1 MEQ/L (21.0-32.0); CALCIUM 7.9 MG/DL (8.5-10.1); CREATININE 3.6 MG/DL (0.60-1.30)
[2018-01-16 22:38] LABS: HEMATOCRIT 33.2 % (39.0-51.0); HEMOGLOBIN 10.9 GM/DL (13.0-17.0)
[2018-01-17] VITALS (13 sets, daily range): BP systolic 113–133; BP diastolic 56–81; PULSE 52–65; RESP 16–26; TEMP 97.4–98.4; O2SAT 97–99
[2018-01-17] MEDS: ceFAZolin 2 GM PREMIX 50 ML IV SCH ×2 (02:15→15:10)
[2018-01-17] MEDS: SODIUM BICARBONATE 8.4% INJ 150 MEQ in DEXTROSE 5% IN WATE 1000ML INJ 850 ML IV SCH ×6 (02:16→23:17)
[2018-01-17] MEDS: CHLORHEXIDINE GLUCONATE 2 % 1 PACK (2 CLOTHS) TOP SCH (04:00)
[2018-01-17] MEDS: HYDROCORTISONE SOD SUCCINATE 100 MG VIAL IV PUSH SCH ×3 (04:32→22:27)
[2018-01-17 05:53] LABS: HEMATOCRIT 30.5 % (39.0-51.0); HEMOGLOBIN 10.1 GM/DL (13.0-17.0); MEAN CELL VOLUME 89.9 FL (80.0-100.0); MEAN CORPUSCULAR HEMOGLOBIN 29.8 PG (27.0-34.0); MEAN CORPUSCULAR HGB CONC 33.1 % (32.0-36.0); MEAN PLATELET VOLUME 10.6 FL (7.0-11.0); PLATELET COUNT 248 TH/MM3 (150-450); RED CELL DISTRIBUTION WIDTH 15.1 % (11.6-17.2); WHITE BLOOD COUNT 31.1 TH/MM3 (4.0-11.0)
[2018-01-17 06:00] LABS: INTERNATIONAL NORMALIZED RATIO 2.1 RATIO; PROTHROMBIN TIME - PATIENT 21.1 SEC (9.8-11.6)
[2018-01-17 06:22] LABS: ALBUMIN 1.2 GM/DL (3.4-5.0); ALKALINE PHOSPHATASE 386 U/L (45-117); ALT (GPT) 85 U/L (12-78); AST (GOT) 107 U/L (15-37); BICARBONATE 9.9 MEQ/L (21.0-32.0); BLOOD UREA NITROGEN 87 MG/DL (7-18); CALCIUM 7.5 MG/DL (8.5-10.1); CHLORIDE 101 MEQ/L (98-107); CREATININE 3.85 MG/DL (0.60-1.30); DIRECT BILIRUBIN ADULT 0.7 MG/DL (0.0-0.2); GLOMERULAR FILTRATION RATE 16 ML/MIN (>89); GLUCOSE,RANDOM 242 MG/DL (74-106); MAGNESIUM 2.1 MG/DL (1.5-2.5); SODIUM (NA) 134 MEQ/L (136-145); TOTAL PROTEIN 6.1 GM/DL (6.4-8.2)
[2018-01-17] MEDS: HEPARIN SODIUM - SQ 10,000 UNITS/ML VIAL SQ SCH (06:45)
[2018-01-17 07:46] LABS: BANDS 13 % (0-6); LYMPHOCYTES 1 % (9-44); MONOCYTES 2 % (0-8); MYELOCYTES 2 % (0-0); NEUTROPHIL # MANUAL DIFF 30.2 TH/MM3 (1.8-7.7); POLYS (SEG NEUTROPHILS) 82 % (16-70)
[2018-01-17] MEDS: INSULIN ASPART SUPPLEMENTAL SCALE SQ SCH ×4 (08:00→20:28)
[2018-01-17 08:09] LABS: HEMOGLOBIN 10.3 GM/DL (13.0-17.0)
--- NOTE | 2018-01-17 08:57 | HHI.CCPN ---
Subjective Remarks/Hospital Course 57-year-old male presents from home with altered mental status. Patient has been altered and is oriented to person only. According to family, patient fell 2 days ago but we do not have any other information regarding this. Patient does have a history of chronic alcohol abuse but denies any alcohol today. Subjective: 01/15: Late entry note patient seen a 7am. Patient lethargic but protecting airway. Patient is altered and oriented to self. Patient noted to be hyponatremic questionable if chronic. He continues on IV fluids NS 175 cc/hr. 01/16: Patient noted to be more lethargic today ABG performed severe metabolic acidosis noted IV fluids normal saline discontinued. She received 50 mEq of sodium bicarbonate IV push. Patient started on sodium bicarbonate infusion at 100 cc/hour. Antipsychotic medications Thorazine placed on hold all sedative type medications placed on hold. Patient was noted to have elevated creatinine nephrology consulted. Noted elevation in LFTs, hepatitis profile and liver ultrasound pending, likely shock liver secondary to hypotension due to septic shock. 01/17: The patient slightly more alert today, and combative. Continues on sodium bicarbonate infusion at 100 cc an hour with minimal improvement. INR noted to continue to be elevated GI has been consulted. Hepatitis panel is pending. Persistent leukocytosis WBC count elevation from 25-31 this a.m. thought to be possibly secondary to hydrocortisone. Initiated hydrocortisone weaning, expanded antibiotic coverage with Zosyn renally adjusted. Patient pancultured. patient received 1 dose of Lasix last evening with 1250 cc urine output in 12 hours. Objective Vital Signs Date Time Temp Pulse Resp B/P (MAP) Pulse Ox O2 Delivery O2 Flow Rate FiO2 01/17/18 07:41 98 Nasal Cannula 2.00 01/17/18 06:00 52 01/17/18 04:00 98.0 19 113/57 (75) Intake and Output 01/17/18 01/17/18 01/18/18 08:00 16:00 00:00 Intake Total 1050 ml Output Total 1250 ml Balance -200 ml Result Diagram: 01/17/18 0800 01/17/18 0438 Other Results Laboratory Tests Test 01/16/18 16:08 01/16/18 19:25 01/17/18 00:05 01/17/18 05:53 Blood Gas Puncture Site RT RADIAL LT BRACHIAL LT BRACHIAL LT BRACHIAL Blood Gas Patient Temperature 98.6 98.6 98.6 98.6 Blood Gas HCO3 9 mmol/L (22-26) 9 mmol/L (22-26) 9 mmol/L (22-26) 9 mmol/L (22-26) Blood Gas Base Excess -16.7 mmol/L (-2-2) -15.7 mmol/L (-2-2) -15.8 mmol/L (-2-2) -15.4 mmol/L (-2-2) Blood Gas Oxygen Saturation 95 % (90-100) 96 % (90-100) 96 % (90-100) 95 % ( 90-100) Arterial Blood pH 7.30 (7.380-7.420) 7.35 (7.380-7.420) 7.36 (7.380-7.420) 7.37 (7.380-7.420) Arterial Blood Partial Pressure CO2 18 mmHg (38-42) 17 mmHg (38-42) 16 mmHg (38-42) 16 mmHg (38-42) Arterial Blood Partial Pressure O2 116 mmHg (61-120) 131 mmHg (61-120) 118 mmHg (61-120) 118 mmHg (61-120) Arterial Blood Oxygen Content 12.7 Vol % (12.0-20.0) 14.2 Vol % (12.0-20.0) 14.4 Vol % (12.0-20.0) 14.1 Vol % (12.0-20.0) Arterial Blood Carboxyhemoglobin 1.0 % (0-4) 0.9 % (0-4) 0.9 % (0-4) 0.9 % (0-4) Arterial Blood Methemoglobin 1.5 % (0-2) 1.4 % (0-2) 1.3 % (0-2) 1.4 % (0-2) Blood Gas Hemoglobin 9.4 G/DL (12.0-16.0) 10.4 G/DL (12.0-16.0) 10.6 G/DL (12.0-16.0) 10.4 G/DL (12.0-16.0) Blood Gas Inspired Oxygen 21 % Oxygen Delivery Device NASAL CANNULA NASAL CANNULA NASAL CANNULA Blood Gas Liter Flow 2 L/M 2 L/M 2 L/M Imaging Last Impressions Liver Ultrasound 5/3/18 0000 Signed Impressions: Service Date/Time: January 16:59 - CONCLUSION: 1. Hepatomegaly and diffuse increased hepatic echogenicity without intrahepatic ductal dilatation or focal mass. Findings are most consistent with hepatic steatosis or medical liver disease. 2. Trace ascites. 3. Cholelithiasis with gallbladder wall prominence and trace pericholecystic fluid. These findings may be seen in the setting of chronic liver disease or ascites and significantly limit ultrasound evaluation for acute cholecystitis. If there is significant clinical concern regarding acute cholecystitis, HIDA scan may be performed to evaluate for cystic duct patency. Nam Tinajero MD Head CT 01/14/182000 Signed Impressions: Service Date/Time: Sunday, January 14, 2018 20:22 - CONCLUSION: Normal examination for a patient of this age. Marcio Hansen MD Chest X-Ray 01/14/182000 Signed Impressions: Service Date/Time: Sunday, January 14, 2018 20:25 - CONCLUSION: 1. Mild cardiomegaly. No focal consolidation or effusion. Marcio Hansen MD Lower Extremity CT 01/14/18 Signed Impressions: Service Date/Time: Sunday, January 14, 2018 23:38 - CONCLUSION: 1. CT findings characteristic of a severe Charcot foot in the mid and hindfoot with collapse of the plantar arch. Osteoarthritic changes of the first MTP joint 2. However, findings all appear to be chronic with no acute osseous injury Marquis Mcdonald MD Abdomen/Pelvis CT 01/14/18 Signed Impressions: Service Date/Time: Sunday, January 14, 2018 23:35 - CONCLUSION: 1. CT findings suggest volume overload or low oncotic pressures with some flank and mesenteric edema, gallbladder wall thickening and some free fluid in the pelvis. Heart size is somewhat prominent. 2. Bilateral symmetric gynecomastia. Nonspecific findings but can be associated with some chronic disease processes or medications. 3. Left periaortic borderline prominent lymph nodes. Again, nonspecific but may be reactive associated with the aforementioned mesenteric edema. 4. 5.7 cm periumbilical fatty hernia. There is now some fluid along the periphery of the hernia. This could be related to the generalized edema described above although fatty infarction could have a similar radiographic presentation. Please correlate with clinical symptomatology Marquis Mcdonald MD Last Impressions Head CT 01/14/182000 Signed Impressions: Service Date/Time: Sunday, January 14, 2018 20:22 - CONCLUSION: Normal examination for a patient of this age. Marcio Hansen MD Chest X-Ray 01/14/182000 Signed Impressions: Service Date/Time: Sunday, January 14, 2018 20:25 - CONCLUSION: 1. Mild cardiomegaly. No focal consolidation or effusion. Marcio Hansen MD Lower Extremity CT 01/14/18 Signed Impressions: Service Date/Time: Sunday, January 14, 2018 23:38 - CONCLUSION: 1. CT findings characteristic of a severe Charcot foot in the mid and hindfoot with collapse of the plantar arch. Osteoarthritic changes of the first MTP joint 2. However, findings all appear to be chronic with no acute osseous injury Marquis Mcdonald MD Abdomen/Pelvis CT 01/14/18 Signed Impressions: Service Date/Time: Sunday, January 14, 2018 23:35 - CONCLUSION: 1. CT findings suggest volume overload or low oncotic pressures with some flank and mesenteric edema, gallbladder wall thickening and some free fluid in the pelvis. Heart size is somewhat prominent. 2. Bilateral symmetric gynecomastia. Nonspecific findings but can be associated with some chronic disease processes or medications. 3. Left periaortic borderline prominent lymph nodes. Again, nonspecific but may be reactive associated with the aforementioned mesenteric edema. 4. 5.7 cm periumbilical fatty hernia. There is now some fluid along the periphery of the hernia. This could be related to the generalized edema described above although fatty infarction could have a similar radiographic presentation. Please correlate with clinical symptomatology Marquis Mcdonald MD Last [address] 01/14/182000 Signed Impressions: Service Date/Time: Sunday, January 14, 2018 20:22 - CONCLUSION: Normal examination for a patient of this age. Marcio Hansen MD Chest X-Ray 01/14/182000 Signed Impressions: Service Date/Time: Sunday, January 14, 2018 20:25 - CONCLUSION: 1. Mild cardiomegaly. No focal consolidation or effusion. Marcio Hansen MD Objective Remarks GENERAL: Well-developed, well-nourished male in no apparent distress, flat affect, lethargic, and combative SKIN: Focused skin assessment warm/dry. Skin and scleral jaundiced HEAD: Atraumatic. Normocephalic. EYES: Pupils equal and round. Positive scleral icterus. No injection or drainage. ENT: No nasal bleeding or discharge. Mucous membranes pink and moist. NECK: Trachea midline. No JVD. CARDIOVASCULAR: Regular rate and rhythm. No murmur appreciated. RESPIRATORY: No accessory muscle use. Clear to auscultation. Breath sounds equal bilaterally. GASTROINTESTINAL: Abdomen soft, non-tender, nondistended. Hepatic and splenic margins not palpable. MUSCULOSKELETAL: No obvious deformities. No clubbing. No cyanosis. No edema. Chronic appearing right foot plantar wound without discharge NEUROLOGICAL: Awake and alert. No obvious cranial nerve deficits. Motor grossly within normal limits. Lethargic slow speech. A/P Assessment and Plan Plan by systems: Neurologic: Metabolic encephalopathy secondary to sepsis Schizophrenia 01/16 Ammonia level 10 Monitor sodium level 130-> 134 today Neurology checks per ICU protocol 01/16 Hold antipsychotic meds (Thorazine) in the setting of lethargy Respiratory: Obtain O2 saturation greater than 92% patient currently on 3 L nasal cannula O2 saturation 97 % Duo nebs every 4 hours as needed for wheeze ABG 7.37/16/118/9/-15.4 Cardiovascular: Septic shock History of hypertension Norepinephrine discontinued 01/15 0500 Maintain MAP greater than 65 Hold all antihypertensive medications in the setting of septic shock Renal: Maintain almaraz-noted fluid overload 7 liters positive. 01/16 Lasix 40 mg IV 1 dose Nephrology following Maintain almaraz -- Strict I/Os FEN/GI: Electrolyte abnormality Metabolic acidosis AK I Elevated LFTs- Shock Liver Hepatomegaly 01/16 Sodium bicarbonate 50 mEq IV push Continue Sodium bicarbonate infusion at 100 cc/hr ABG 7.30/ 17/ 116/ 8/ -16.7 Creatinine 3.6->3.8 today Monitor CMP BISHOP secondary to hypotension and septic shock / ultrasound of the liver- Trace ascites. Findings most consistent with hepatic steatosis or liver disease. Cholelithiasis with gallbladder wall prominence but trace pericholecystic fluid Follow-up hepatitis panel-pending Follow-up formal swallow evaluation obtain recommendations, fails will place NG tube for diet GI consulted appreciate recommendations Heme/ID: Anemia Persistent leukocytosis Severe sepsis Coagulopathy Hemoglobin 7.0 this a.m. ,repeat H&H- Hgb 10 INR trending up 2.0, heparin subcu held ID following-Ancef will expand coverage and reinstitute Zosyn 5/2 blood culture-group A beta 5/3-follow-up wound culture bilateral feet Endocrine: Diabetes mellitus -Insulin sliding scale per ICU protocol, low dose regimen Obtain beta hydroxybutyrate level -Hold long-acting insulins while n.p.o. -- SSI MSK : Bilateral wound infection feet 5/ Podiatry [id number] recommendations Rule out osteomyelitis PT evaluation and treat 5/3 Wound care following application per recommendations Prophylaxis: GI Prophylaxis Famotidine BID DVT Prophylaxis -- SCDs Teds and SCDs. Heparin SQ on hold in the setting of elevated INR Lines: Peripheral IVs 2. Central line if indicated Dispo: my billing statement This patient remains critically ill with one or more organ systems which are or may become a threat to life. I have spent in excess of 30 minutes discontinuously in the care and management of this patient. This time is exclusive of procedures, and includes, but is not limited to, evaluation of the patient, review of the medical record, discussions with family, consultants, nursing staff, or respiratory therapy, and documentation in the medical record. Telephone patient's mother Ms. Yanes and provided medical status update. Physician Maddi Lewis MD January 17, 2018 08:57
[2018-01-17] MEDS: ASPIRIN 325 MG TAB PO SCH (09:00)
[2018-01-17] MEDS ORDERED: PIPERACIL-TAZO 3.375 GM PREMIX 50 ML IV SCH (09:00)
[2018-01-17] MEDS: FAMOTIDINE 20 MG/2 ML VIAL IV PUSH SCH ×2 (09:01→20:28)
[2018-01-17] MEDS: SODIUM CHLORIDE 0.9% FLUSH 10 ML FLUSH IV FLUSH SCH ×2 (09:01→20:28)
--- NOTE | 2018-01-17 10:08 | PD.CONS ---
HPI History of Present Illness This is a 57 year old M who was brought to the [facility] [place] emergency department via [facility] on January 14 for evaluation of altered mental status. Pt remains confused and is unable to give me any history during exam, therefore all history obtained through chart review. According to ER note, family had stated that patient had a fall 2 days prior to hospital arrival. CT scan of his head revealed no acute changes. Pt was found to be septic, leukocytosis, febrile with elevated temperature. He is currently in ICU. Our service has been consulted to evaluate patient for elevated liver enzymes. On admission (01/14) LFTs were AST-73 ALT-28 Alk phos-648 and T Bili-1.5. Attending has ordered hepatitis panel which reveals a positive Hepatitis C antibody, this was negative in February 2017. Imaging has also been done. Unable to obtain social history including alcohol and illicit drugs. No visible tattoos on my exam. Pt has been previously evaluated by our service for elevated LFTs and at the time in February 2017 it was mentioned it was likely secondary to medication. Our service also worked him up for anemia at that time. EGD and colonoscopy --> Esophagus was normal. Food residue in the entire examined stomach. Medium sized ulcer in the gastric antrum. Significant amount of stool was present throughout the entire examined colon. Retroflexion not performed. Incomplete exam due to poor prep. Barium enema revealed an extremely redundant colon. No definite mucosa abnormality was identified, but only partial visualization of the cecum. (Skylar Sykes) PFSH Past Medical History HTN Diabetes Chronic right plantar wound CHF PAD Anxiety Schizophrenia Past Surgical History Foot I&D Colonoscopy EGD (Skylar Sykes) Coded Allergies: haloperidol (Verified Allergy, Severe, BLINDNESS, 01/14/18) vancomycin (Verified Allergy, Severe, 01/14/18) levofloxacin (Verified Allergy, Intermediate, Cramping, 01/14/18) fluphenazine (Verified Allergy, Unknown, "[employer]", 01/14/18) codeine (Verified Adverse Reaction, Mild, 01/14/18) "makes me feel funny" but feels ok taking [place]'s *MDRO Multi-Drug Resistant Organism (Verified Adverse Reaction, Unknown, VRE, 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 Social History Unable to obtain (Skylar Sykes) Review of Systems Unable to obtain (Skylar Sykes) GI Exam Vitals I&O Vital Signs Date Time Temp Pulse Resp B/P (MAP) Pulse Ox O2 Delivery O2 Flow Rate FiO2 01/17/18 07:41 98 Nasal Cannula 2.00 01/17/18 06:00 52 01/17/18 04:00 53 01/17/18 04:00 98.0 65 19 113/57 (75) 99 01/17/18 02:00 54 01/17/18 00:00 98.4 52 20 113/56 (75) 98 01/17/18 00:00 52 01/16/18 22:00 53 01/16/18 20:00 98.2 52 21 114/58 (76) 99 01/16/18 20:00 52 01/16/18 19:29 99 Nasal Cannula 2.00 01/16/18 18:00 53 01/16/18 16:00 49 01/16/18 16:00 98.1 49 17 137/66 (89) 97 01/16/18 16:00 97.5 50 25 151/72 (98) 97 01/16/18 14:00 47 01/16/18 12:00 97.5 50 25 151/72 (98) 97 01/16/18 12:00 50 01/16/18 10:00 51 I/O 01/16/18 01/16/18 01/16/18 01/17/18 01/17/18 01/17/18 07:00 15:00 23:00 07:00 15:00 23:00 Intake Total 1150 ml 1702 ml 100 ml 1050 ml Output Total 700 ml 1250 ml Balance 450 ml 1702 ml 100 ml -200 ml Intake Oral 0 ml 0 ml IV Total 1150 ml 1702 ml 100 ml 1050 ml Output Urine Total 700 ml 1250 ml Stool Total 0 ml 0 ml Imaging Last Impressions Liver Ultrasound 01/16/18 0000 Signed Impressions: Service Date/Time: January 16:59 - CONCLUSION: 1. Hepatomegaly and diffuse increased hepatic echogenicity without intrahepatic ductal dilatation or focal mass. Findings are most consistent with hepatic steatosis or medical liver disease. 2. Trace ascites. 3. Cholelithiasis with gallbladder wall prominence and trace pericholecystic fluid. These findings may be seen in the setting of chronic liver disease or ascites and significantly limit ultrasound evaluation for acute cholecystitis. If there is significant clinical concern regarding acute cholecystitis, HIDA scan may be performed to evaluate for cystic duct patency. Nam Tinajero MD Head CT 01/14/182000 Signed Impressions: Service Date/Time: Sunday, January 14, 2018 20:22 - CONCLUSION: Normal examination for a patient of this age. Marcio Hansen MD Chest X-Ray 01/14/182000 Signed Impressions: Service Date/Time: Sunday, January 14, 2018 20:25 - CONCLUSION: 1. Mild cardiomegaly. No focal consolidation or effusion. Marcio Hansen MD Lower Extremity CT 01/14/18 Signed Impressions: Service Date/Time: Sunday, January 14, 2018 23:38 - CONCLUSION: 1. CT findings characteristic of a severe Charcot foot in the mid and hindfoot with collapse of the plantar arch. Osteoarthritic changes of the first MTP joint 2. However, findings all appear to be chronic with no acute osseous injury Marquis Mcdonald MD Abdomen/Pelvis CT 01/14/18 0000 Signed Impressions: Service Date/Time: Sunday, January 14, 2018 23:35 - CONCLUSION: 1. CT findings suggest volume overload or low oncotic pressures with some flank and mesenteric edema, gallbladder wall thickening and some free fluid in the pelvis. Heart size is somewhat prominent. 2. Bilateral symmetric gynecomastia. Nonspecific findings but can be associated with some chronic disease processes or medications. 3. Left periaortic borderline prominent lymph nodes. Again, nonspecific but may be reactive associated with the aforementioned mesenteric edema. 4. 5.7 cm periumbilical fatty hernia. There is now some fluid along the periphery of the hernia. This could be related to the generalized edema described above although fatty infarction could have a similar radiographic presentation. Please correlate with clinical symptomatology Marquis Mcdonald MD Laboratory Test 01/16/18 12:18 01/16/18 15:56 01/16/18 16:08 01/16/18 17:58 Sodium Level 130 MEQ/L 132 MEQ/L 132 MEQ/L Blood Gas Puncture Site RT RADIAL Blood Gas Patient Temperature 98.6 Blood Gas HCO3 9 mmol/L Blood Gas Base Excess -16.7 mmol/L Blood Gas Oxygen Saturation 95 % Arterial Blood pH 7.30 Arterial Blood Partial Pressure CO2 18 mmHg Arterial Blood Partial Pressure O2 116 mmHg Arterial Blood Oxygen Content 12.7 Vol % Arterial Blood Carboxyhemoglobin 1.0 % Arterial Blood Methemoglobin 1.5 % Blood Gas Hemoglobin 9.4 G/DL Blood Gas Inspired Oxygen 21 % Hemoglobin 10.2 GM/DL Hematocrit 31.3 % Prothrombin Time 17.9 SEC Prothromb Time International Ratio 1.8 RATIO Blood Urea Nitrogen 81 MG/DL Creatinine 3.60 MG/DL Random Glucose 137 MG/DL Calcium Level 7.9 MG/DL Potassium Level 4.6 MEQ/L Chloride Level 104 MEQ/L Carbon Dioxide Level 11.1 MEQ/L Anion Gap 17 MEQ/L Estimat Glomerular Filtration Rate 18 ML/MIN Ammonia LESS THAN 10 MCMOL/L Test 01/16/18 19:25 01/16/18 20:52 01/16/18 22:16 01/17/18 00:05 Blood Gas Puncture Site LT BRACHIAL LT BRACHIAL Blood Gas Patient Temperature 98.6 98.6 Blood Gas HCO3 9 mmol/L 9 mmol/L Blood Gas Base Excess -15.7 mmol/L -15.8 mmol/L Blood Gas Oxygen Saturation 96 % 96 % Arterial Blood pH 7.35 7.36 Arterial Blood Partial Pressure CO2 17 mmHg 16 mmHg Arterial Blood Partial Pressure O2 131 mmHg 118 mmHg Arterial Blood Oxygen Content 14.2 Vol % 14.4 Vol % Arterial Blood Carboxyhemoglobin 0.9 % 0.9 % Arterial Blood Methemoglobin 1.4 % 1.3 % Blood Gas Hemoglobin 10.4 G/DL 10.6 G/DL Oxygen Delivery Device NASAL CANNULA NASAL CANNULA Blood Gas Liter Flow 2 L/M 2 L/M Sodium Level 136 MEQ/L Hemoglobin 10.9 GM/DL Hematocrit 33.2 % Test 01/17/18 04:38 01/17/18 05:53 01/17/18 08:00 White Blood Count 31.1 TH/MM3 Red Blood Count 3.40 MIL/MM3 Hemoglobin 10.1 GM/DL 10.3 GM/DL Hematocrit 30.5 % 32.0 % Mean Corpuscular Volume 89.9 FL Mean Corpuscular Hemoglobin 29.8 PG Mean Corpuscular Hemoglobin Concent 33.1 % Red Cell Distribution Width 15.1 % Platelet Count 248 TH/MM3 Mean Platelet Volume 10.6 FL CBC Comment AUTO DIFF Differential Total Cells Counted 100 Neutrophils % (Manual) 82 % Band Neutrophils % 13 % Lymphocytes % 1 % Monocytes % 2 % Neutrophils # (Manual) 30.2 TH/MM3 Myelocytes 2 % Differential Comment FINAL DIFF MANUAL Platelet Estimate NORMAL Platelet Morphology Comment NORMAL Prothrombin Time 21.1 SEC Prothromb Time International Ratio 2.1 RATIO Blood Urea Nitrogen 87 MG/DL Creatinine 3.85 MG/DL Random Glucose 242 MG/DL Total Protein 6.1 GM/DL Albumin 1.2 GM/DL Calcium Level 7.5 MG/DL Phosphorus Level 6.0 MG/DL Magnesium Level 2.1 MG/DL Alkaline Phosphatase 386 U/L Aspartate Amino Transf (AST/SGOT) 107 U/L Alanine Aminotransferase (ALT/SGPT) 85 U/L Total Bilirubin 1.0 MG/DL Direct Bilirubin 0.7 MG/DL Sodium Level 134 MEQ/L Potassium Level 4.6 MEQ/L Chloride Level 101 MEQ/L Carbon Dioxide Level 9.9 MEQ/L Anion Gap 23 MEQ/L Estimat Glomerular Filtration Rate 16 ML/MIN Hepatitis A IgM Antibody NONREACTIVE Hepatitis B Surface Antigen NONREACTIVE Hepatitis B Core IgM Antibody NONREACTIVE Hepatitis C IgG Antibody REACTIVE Blood Gas Puncture Site LT BRACHIAL Blood Gas Patient Temperature 98.6 Blood Gas HCO3 9 mmol/L Blood Gas Base Excess -15.4 mmol/L Blood Gas Oxygen Saturation 95 % Arterial Blood pH 7.37 Arterial Blood Partial Pressure CO2 16 mmHg Arterial Blood Partial Pressure O2 118 mmHg Arterial Blood Oxygen Content 14.1 Vol % Arterial Blood Carboxyhemoglobin 0.9 % Arterial Blood Methemoglobin 1.4 % Blood Gas Hemoglobin 10.4 G/DL Oxygen Delivery Device NASAL CANNULA Blood Gas Liter Flow 2 L/M Lactic Acid Level 1.4 mmol/L Date/Time Source Procedure Growth Status 01/16/18 17:58 Blood Peripheral Aerobic Blood Culture Pending Received 01/16/18 17:58 Blood Peripheral Anaerobic Blood Culture Pending Received 01/16/18 15:00 Wound Foot Gram Stain - Final Resulted 01/16/18 15:00 Wound Foot Wound Culture Pending Resulted Physical Examination HEENT: Normocephalic; atraumatic CHEST: Even/unlabored- 2 L O2 via NC CARDIAC: RRR ABDOMEN: Round, soft, bowel sounds active EXTREMITIES: Wound to L foot, not visualized wrapped in gauze 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 February 2017 labs: AST-617 ALT-311 Alk phos-618 T bili-0.8 Iron-15 TIBC-157 %sat-9.6 Ferritin-245 Currently: AST-107 ALT-85 Alk phos-386 T bili-1 Coagulopathy (INR 2.1) Hypoalbuminemia (albumin 1.2) Hepatitis panel revealed positive Hep C IgG antibody Unable to obtain social history including alcohol and illicit drugs. No visible tattoos on my exam. CT abdomen and pelvis W/O IV contrast (01/14) --> CT findings suggest volume overload or low oncotic pressures with some flank and mesenteric edema, gallbladder wall thickening and some free fluid in the pelvis. Heart size is somewhat prominent. Bilateral symmetric gynecomastia. Nonspecific findings but can be associated with some chronic disease processes or medications. Left periaortic borderline prominent lymph nodes. Again, nonspecific but may be reactive associated with the aforementioned mesenteric edema. 5.7 cm periumbilical fatty hernia. There is now some fluid along the periphery of the hernia. This could be related to the generalized edema described above although fatty infarction could have a similar radiographic presentation. Please correlate with clinical symptomatology US liver (01/16) --> Hepatomegaly and diffuse increased hepatic echogenicity without intrahepatic ductal dilatation or focal mass. Findings are most consistent with hepatic steatosis or medical liver disease. Trace ascites. Cholelithiasis with gallbladder wall prominence and trace pericholecystic fluid. These findings may be seen in the setting of chronic liver disease or ascites and significantly limit ultrasound evaluation for acute cholecystitis. If there is significant clinical concern regarding acute cholecystitis, HIDA scan may be performed to evaluate for cystic duct patency. - Anemia- previous work up by our service in February 2017 --> EGD and colonoscopy --> Esophagus was normal. Food residue in the entire examined stomach. Medium sized ulcer in the gastric antrum. Significant amount of stool was present throughout the entire examined colon. Retroflexion not performed. Incomplete exam due to poor prep. Barium enema revealed an extremely redundant colon. No definite mucosa abnormality was identified, but only partial visualization of the cecum. - Leukocytosis with elevated lactic acid on arrival and febrile- Infection to LLE- on Zosyn and Cefazolin - BISHOP on CKD Differentials for elevated LFTs: Hepatitis C vs shocked liver secondary to hypotension from sepsis (lowest BP documented on 01/14 was 85/53) vs hepatic congestion Plan: Liver Work up Hepatitis C genotype and RNA quant Alk phos iso enzymes- chronically elevated sometimes isolated without elevation in LFTs Avoid hepatotoxins Monitor H/H Transfuse as needed Notify GI of any obvious GIB Further recommendations based on findings of above and clinical course Pt has been seen and examined by myself and Dr. Llanos and this note is written on his behalf (Skylar Sykes) Plan Patient was seen and examined, agree with above note, elevated liver function tests, most likely hepatitis C we will monitor the liver function test and will check for other etiologies (Debra Llanos MD) Skylar Sykes January 17, 2018 10:08 Debra Llanos MD January 17, 2018 22:50
--- NOTE | 2018-01-17 12:13 | HHI.NPPN ---
Subjective Renal Failure: Acute Interval History He is resting. Upper extremities restrained, seems agitated. Renal function is worse. Acidosis persists. (Laura Quesada) Review of Systems General Constitutional: Fatigue (Laura Quesada) Objective Data Data 01/17/18 01/18/18 19:00 07:00 Intake Total 50 ml Balance 50 ml IV Total 50 ml Vital Signs Date Time Temp Pulse Resp B/P (MAP) Pulse Ox O2 Delivery O2 Flow Rate FiO2 01/17/18 10:00 62 01/17/18 08:00 97.6 54 24 127/63 (84) 97 01/17/18 08:00 54 01/17/18 07:41 98 Nasal Cannula 2.00 01/17/18 06:00 52 01/17/18 04:00 53 01/17/18 04:00 98.0 65 19 113/57 (75) 99 01/17/18 02:00 54 01/17/18 00:00 98.4 52 20 113/56 (75) 98 01/17/18 00:00 52 01/16/18 22:00 53 01/16/18 20:00 98.2 52 21 114/58 (76) 99 01/16/18 20:00 52 01/16/18 19:29 99 Nasal Cannula 2.00 01/16/18 18:00 53 01/16/18 16:00 49 01/16/18 16:00 98.1 49 17 137/66 (89) 97 01/16/18 16:00 97.5 50 25 151/72 (98) 97 01/16/18 14:00 47 (Laura Quesada) -: 01/17/18 0800 01/17/18 0438 Microbiology 01/17/18 Aerobic Blood Culture, Received Pending 01/17/18 Anaerobic Blood Culture, Received Pending 01/17/18 Aerobic Blood Culture, Received Pending 01/17/18 Anaerobic Blood Culture, Received Pending 01/16/18 Aerobic Blood Culture - Preliminary, Resulted NO GROWTH IN 1 DAY 01/16/18 Anaerobic Blood Culture - Preliminary, Resulted NO GROWTH IN 1 DAY 01/16/18 Aerobic Blood Culture - Preliminary, Resulted NO GROWTH IN 1 DAY 01/16/18 Anaerobic Blood Culture - Preliminary, Resulted NO GROWTH IN 1 DAY 01/16/18 Gram Stain - Final, Resulted 01/16/18 Wound Culture, Resulted Pending Imaging Last 72 hours Impressions Liver Ultrasound 01/16/18 0000 Signed Impressions: Service Date/Time: January 16:59 - CONCLUSION: 1. Hepatomegaly and diffuse increased hepatic echogenicity without intrahepatic ductal dilatation or focal mass. Findings are most consistent with hepatic steatosis or medical liver disease. 2. Trace ascites. 3. Cholelithiasis with gallbladder wall prominence and trace pericholecystic fluid. These findings may be seen in the setting of chronic liver disease or ascites and significantly limit ultrasound evaluation for acute cholecystitis. If there is significant clinical concern regarding acute cholecystitis, HIDA scan may be performed to evaluate for cystic duct patency. Nam Tinajero MD Head CT 01/14/182000 Signed Impressions: Service Date/Time: Sunday, January 14, 2018 20:22 - CONCLUSION: Normal examination for a patient of this age. Marcio Hansen MD Chest X-Ray 01/14/182000 Signed Impressions: Service Date/Time: Sunday, January 14, 2018 20:25 - CONCLUSION: 1. Mild cardiomegaly. No focal consolidation or effusion. Marcio Hansen MD (Laura Quesada) Physical Exam General Appearance: Comfortable, Anxious Appearance Remarks disheveled, appears older than stated age (Laura Quesada) Ears & Nose Ears & Nose Exam: Tympanic Membranes Normal (Laura Quesada) Pulmonary Resp Exam: Breath Sounds Equal, No Distress (Laura Quesada) Cardiology CV Exam: Normal Sinus Rhythm, Good Perfusion (Laura Quesada) Gastrointestinal/Abdomen GI Exam: Soft, Non-Tender, Bowel Sounds Present (Laura Quesada) Musculoskeletal MS Exam: Joints Intact, Normal Tone, Unable to Ambulate (Laura Quesada) Integumentary Skin Exam: Warm, Dry Skin Remarks wound on bilateral feet/heals (Laura Qeusada) Neurologic Neuro Exam: Moving All Extremities, Obtunded (Laura Quesada) Assessment/Plan Discussed Condition With: Patient Assessment Summary: BISHOP/Acute Renal Failure Problem List: (1) Acute worsening of stage 3 chronic kidney disease ICD Codes: N18.3 - Chronic kidney disease, stage 3 (moderate) Plan: Exact baseline is not known. Last year Creatinine was 1.7. More recently it was around 2.7 BISHOP likely due to ATN from sepsis. Renal function is worse today. He is non oliguric via almaraz. Has persistent and severe metabolic acidosis, on bicarb gtt (D5W with 3 amps @ 150cc/hr) It is possible he may require dialysis for renal failure and intractable acidosis. However the patient is very adamant that he does not want dialysis. Monitor urine output. Continue bicarbonate drip for now, monitor fluid status. Avoid nephrotoxic agents. Maintain MAP of more than 65. Prognosis is poor. (2) Sepsis ICD Codes: A41.9 - Sepsis, unspecified organism Status: Resolved Plan: ID following. On Cefazolin, Zosyn started. Source is likely infected leg wounds. 4/4 blood cultures positive, wound culture also positive for Group B strep (3) Hyponatremia ICD Codes: E87.1 - Hypo-osmolality and hyponatremia Status: Acute Plan: Documented hx of psychogenic polydipsia. However given ETOH abuse, need to consider beer potomania. Na level stable. PO fluid restriction. (4) Anemia ICD Codes: D64.9 - Anemia, unspecified Status: Chronic Plan: Hb improved. Monitor for bleeding. (Laura Quesada) Plan patient was seen and examined. Agree with above assessment and plan. Severe acidosis persists. Obtain serum osmolality, calculate osmolal gap, obtain salicylate level. (Shaun Mcmahon MD) Problem Qualifiers (1) Sepsis: Qualified Codes: A41.9 - Sepsis, unspecified organism Laura Quesada January 17, 2018 12:13 Shaun Mcmahon MD January 17, 2018 16:12
[2018-01-17 12:56] LABS: HEMATOCRIT 30.7 % (39.0-51.0); HEMOGLOBIN 9.8 GM/DL (13.0-17.0)
--- NOTE | 2018-01-17 13:36 | HHI.IDPN ---
Note Infectious Disease Note Patient remains somnolent. Awakens. Confused on awakening. Afebrile. Blood cultures group A beta strep in 4 bottles. Wound culture from the foot has group A beta strep. Admitted with altered mental status. In the emergency department, his blood pressure was 85/53. The white blood cell count was elevated at 27 and lactic acid level of 3.1. PAST MEDICAL HISTORY: 1. Hypertension. 2. Anxiety/depression. 3. Hiatal hernia. 4. Schizophrenia. 5. Diabetes mellitus. 6. Charcot deformity of the feet. 7. A left pelvic fracture. 8. History of abscess of the right foot. ALLERGIES: VANCOMYCIN, LEVAQUIN, HALOPERIDOL, FLUPHENAZINE, CODEINE. MEDICATIONS: Current Medications Medications (Trade) Dose Ordered Sig/Portia Route PRN Reason Start Time Stop Time Status Last Admin Dose Admin Sodium Chloride (NS Flush) 2 ml UNSCH PRN IV FLUSH FLUSH AFTER USING IV ACCESS 01/14/18 22:45 Sodium Chloride (NS Flush) 2 ml BID IV FLUSH 01/15/18 09:00 01/17/18 09:01 Albuterol/ Ipratropium (Duoneb Neb) 1 ampule Q2HR NEB PRN INH WHEEZING 01/14/18 22:45 Heparin Sodium (Porcine) (Heparin Inj) 5,000 units Q8H SQ 01/14/18 23:00 Future Hold 01/17/18 06:45 Miscellaneous Information ([facility] Nursing Information) 1 [id number] XX 01/14/18 22:45 Chlorhexidine Gluconate (Chlorhexidine 2% Cloth) 3 pack Taper DAILY@04 TOP 01/15/18 04:00 01/11/19 03:59 01/17/18 04:00 Chlorhexidine Gluconate (Chlorhexidine 2% Cloth) 3 pack UNSCH PRN TOP HYGIENIC CARE 01/14/18 22:45 Acetaminophen (Tylenol) 650 mg Q4H PRN PO fever or pain 1-5 01/15/18 01:00 Morphine Sulfate (Morphine Inj) 2 mg Q4H PRN IV PUSH pain 6-10 01/15/18 01:00 Future Hold Aspirin (Aspirin) 325 mg DAILY PO 01/15/18 09:00 01/16/18 08:45 Hydroxyzine Pamoate (Vistaril) 50 mg BID PO 01/15/18 09:00 Future Hold 01/16/18 08:45 Dextrose (D50w (Vial) Inj) 50 ml UNSCH PRN IV PUSH HYPOGLYCEMIA-SEE COMMENTS 01/15/18 01:00 Glucagon (Glucagon Inj) 1 mg UNSCH PRN OTHER HYPOGLYCEMIA-SEE COMMENTS 01/15/18 01:00 Insulin Aspart (NovoLOG SUPPLEMENTAL SCALE) 1 ACHS SLIDING SCALE SQ 01/15/18 08:00 01/17/18 11:58 Patient Own Medication PT OWN MED: THIORIDAZINE DOSE 10... DAILY PO 01/15/18 09:00 Future Hold 01/16/18 08:46 Famotidine (Pepcid Inj) 10 mg Q12HR IV PUSH 01/15/18 21:00 01/17/18 09:01 Flumazenil (Romazicon Inj) 0.2 mg Q1M PRN IV PUSH SEE LABEL COMMENTS 01/16/18 01:00 Lorazepam (Ativan) 1 mg Q4H PRN PO CIWA 8 - 10 01/16/18 01:00 Future Hold Lorazepam (Ativan Inj) 1 mg Q4H PRN IV PUSH CIWA 8 - 10 01/16/18 01:00 Future Hold Lorazepam (Ativan) 2 mg Q2H PRN PO CIWA 11-14 01/16/18 01:00 Future Hold Lorazepam (Ativan Inj) 2 mg Q2H PRN IV PUSH CIWA 11-14 01/16/18 01:00 Future Hold 01/16/18 09:08 Lorazepam (Ativan Inj) 2 mg Q1H PRN IV PUSH CIWA 15-20 01/16/18 01:00 Future Hold Lorazepam (Ativan Inj) 2 mg Q15M PRN IV PUSH CIWA > 20 01/16/18 01:00 Future Hold Cefazolin Sodium/ Dextrose 50 ml @ 100 mls/hr Q12H IV 01/16/18 15:00 01/17/18 02:15 Sodium Bicarbonate 150 meq/Dextrose 1,000 ml @ 100 mls/hr Q10H IV 01/16/18 16:15 01/17/18 11:59 Piperacillin Sod/ Tazobactam Sod 50 ml @ 100 mls/hr Q8H IV 01/17/18 09:00 01/17/18 09:01 Hydrocortisone Sodium Succinate (SoluCORTEF INJ) 50 mg Q12H IV PUSH 01/17/18 11:00 01/17/18 11:38 SOCIAL HISTORY: Positive alcohol use reportedly daily. No tobacco. No illicit drugs. Objective: Vital Signs Date Time Temp Pulse Resp B/P (MAP) Pulse Ox O2 Delivery O2 Flow Rate FiO2 01/17/18 12:00 60 01/17/18 12:00 97.4 60 16 118/57 (77) 98 01/17/18 10:00 62 01/17/18 08:00 97.6 54 24 127/63 (84) 97 01/17/18 08:00 54 01/17/18 07:41 98 Nasal Cannula 2.00 01/17/18 06:00 52 01/17/18 04:00 53 01/17/18 04:00 98.0 65 19 113/57 (75) 99 01/17/18 02:00 54 01/17/18 00:00 98.4 52 20 113/56 (75) 98 01/17/18 00:00 52 01/16/18 22:00 53 01/16/18 20:00 98.2 52 21 114/58 (76) 99 01/16/18 20:00 52 01/16/18 19:29 99 Nasal Cannula 2.00 01/16/18 18:00 53 01/16/18 16:00 49 01/16/18 16:00 98.1 49 17 137/66 (89) 97 01/16/18 16:00 97.5 50 25 151/72 (98) 97 01/16/18 14:00 47 Laboratory Tests Test 01/16/18 03:46 01/16/18 17:58 01/16/18 22:16 01/17/18 04:38 White Blood Count 25.2 TH/MM3 31.1 TH/MM3 Red Blood Count 2.33 MIL/MM3 3.40 MIL/MM3 Hemoglobin 7.0 GM/DL 10.2 GM/DL 10.9 GM/DL 10.1 GM/DL Hematocrit 21.1 % 31.3 % 33.2 % 30.5 % Mean Corpuscular Volume 90.2 FL 89.9 FL Mean Corpuscular Hemoglobin 30.0 PG 29.8 PG Mean Corpuscular Hemoglobin Concent 33.3 % 33.1 % Red Cell Distribution Width 14.6 % 15.1 % Platelet Count 186 TH/MM3 248 TH/MM3 Mean Platelet Volume 10.6 FL 10.6 FL Neutrophils (%) (Auto) 92.4 % Lymphocytes (%) (Auto) 2.2 % Monocytes (%) (Auto) 2.8 % Eosinophils (%) (Auto) 2.4 % Basophils (%) (Auto) 0.2 % Neutrophils # (Auto) 23.3 TH/MM3 Lymphocytes # (Auto) 0.6 TH/MM3 Monocytes # (Auto) 0.7 TH/MM3 Eosinophils # (Auto) 0.6 TH/MM3 Basophils # (Auto) 0.0 TH/MM3 CBC Comment AUTO DIFF AUTO DIFF Differential Total Cells Counted 100 100 Neutrophils % (Manual) 77 % 82 % Band Neutrophils % 21 % 13 % Monocytes % 1 % 2 % Neutrophils # (Manual) 24.9 TH/MM3 30.2 TH/MM3 Metamyelocytes 1 % Differential Comment FINAL DIFF MANUAL FINAL DIFF MANUAL Toxic Vacuolation PRESENT Platelet Estimate NORMAL NORMAL Platelet Morphology Comment NORMAL NORMAL Lymphocytes % 1 % Myelocytes 2 % Test 01/17/18 08:00 01/17/18 12:26 Hemoglobin 10.3 GM/DL 9.8 GM/DL Hematocrit 32.0 % 30.7 % Laboratory Tests Test 01/15/18 16:43 01/15/18 21:53 01/16/18 03:46 01/16/18 12:18 Sodium Level 127 MEQ/L 128 MEQ/L 130 MEQ/L 130 MEQ/L Blood Urea Nitrogen 76 MG/DL Creatinine 3.66 MG/DL Random Glucose 78 MG/DL Total Protein 7.2 GM/DL Albumin 1.6 GM/DL Calcium Level 7.8 MG/DL Alkaline Phosphatase 545 U/L Aspartate Amino Transf (AST/SGOT) 529 U/L Alanine Aminotransferase (ALT/SGPT) 168 U/L Total Bilirubin 1.9 MG/DL Potassium Level 4.8 MEQ/L Chloride Level 102 MEQ/L Carbon Dioxide Level 13.7 MEQ/L Anion Gap 14 MEQ/L Estimat Glomerular Filtration Rate 17 ML/MIN Test 01/16/18 15:56 01/16/18 17:58 01/16/18 20:52 01/17/18 04:38 Sodium Level 132 MEQ/L 132 MEQ/L 136 MEQ/L 134 MEQ/L Blood Urea Nitrogen 81 MG/DL 87 MG/DL Creatinine 3.60 MG/DL 3.85 MG/DL Random Glucose 137 MG/DL 242 MG/DL Calcium Level 7.9 MG/DL 7.5 MG/DL Potassium Level 4.6 MEQ/L 4.6 MEQ/L Chloride Level 104 MEQ/L 101 MEQ/L Carbon Dioxide Level 11.1 MEQ/L 9.9 MEQ/L Anion Gap 17 MEQ/L 23 MEQ/L Estimat Glomerular Filtration Rate 18 ML/MIN 16 ML/MIN Ammonia LESS THAN 10 MCMOL/L Total Protein 6.1 GM/DL Albumin 1.2 GM/DL Phosphorus Level 6.0 MG/DL Magnesium Level 2.1 MG/DL Alkaline Phosphatase 386 U/L Aspartate Amino Transf (AST/SGOT) 107 U/L Alanine Aminotransferase (ALT/SGPT) 85 U/L Total Bilirubin 1.0 MG/DL Direct Bilirubin 0.7 MG/DL Test 01/17/18 08:00 01/17/18 10:55 01/17/18 12:26 Lactic Acid Level 1.4 mmol/L 1.5 mmol/L Microbiology Date/Time Source Procedure Growth Status 01/17/18 10:55 Blood Peripheral Aerobic Blood Culture Pending Received 01/17/18 10:55 Blood Peripheral Anaerobic Blood Culture Pending Received 01/17/18 10:39 Blood Peripheral Aerobic Blood Culture Pending Received 01/17/18 10:39 Blood Peripheral Anaerobic Blood Culture Pending Received 01/16/18 17:58 Blood Peripheral Aerobic Blood Culture - Preliminary NO GROWTH IN 1 DAY Resulted 01/16/18 17:58 Blood Peripheral Anaerobic Blood Culture - Preliminary NO GROWTH IN 1 DAY Resulted 01/16/18 17:53 Blood Peripheral Aerobic Blood Culture - Preliminary NO GROWTH IN 1 DAY Resulted 01/16/18 17:53 Blood Peripheral Anaerobic Blood Culture - Preliminary NO GROWTH IN 1 DAY Resulted 01/14/18 20:14 Blood Peripheral Aerobic Blood Culture - Final Group A Beta Strep Complete 01/14/18 20:14 Anaerobic Blood Culture - Final Group A Beta Strep Complete 01/14/18 20:09 Blood Peripheral Aerobic Blood Culture - Final Group A Beta Strep Complete 01/14/18 20:09 Anaerobic Blood Culture - Final Group A Beta Strep Complete 01/16/18 15:00 Wound Foot Gram Stain - Final Resulted 01/16/18 15:00 Wound Foot Wound Culture Pending Resulted 01/15/18 22:15 Wound Foot Gram Stain - Final Complete 01/15/18 22:15 Wound Culture - Final Group A Beta Strep Complete Imaging: Head CT 01/14/182000 Signed Impressions: Service Date/Time: Sunday, January 14, 2018 20:22 - CONCLUSION: Normal examination for a patient of this age. Marcio Hansen MD Chest X-Ray 01/14/182000 Signed Impressions: Service Date/Time: Sunday, January 14, 2018 20:25 - CONCLUSION: 1. Mild cardiomegaly. No focal consolidation or effusion. Marcio Hansen MD Lower Extremity CT 01/14/18 0000 Signed Impressions: Service Date/Time: Sunday, January 14, 2018 23:38 - CONCLUSION: 1. CT findings characteristic of a severe Charcot foot in the mid and hindfoot with collapse of the plantar arch. Osteoarthritic changes of the first MTP joint 2. However, findings all appear to be chronic with no acute osseous injury Marquis Mcdonald MD Abdomen/Pelvis CT 01/14/18 Signed Impressions: Service Date/Time: Sunday, January 14, 2018 23:35 - CONCLUSION: 1. CT findings suggest volume overload or low oncotic pressures with some flank and mesenteric edema, gallbladder wall thickening and some free fluid in the pelvis. Heart size is somewhat prominent. 2. Bilateral symmetric gynecomastia. Nonspecific findings but can be associated with some chronic disease processes or medications. 3. Left periaortic borderline prominent lymph nodes. Again, nonspecific but may be reactive associated with the aforementioned mesenteric edema. 4. 5.7 cm periumbilical fatty hernia. There is now some fluid along the periphery of the hernia. This could be related to the generalized edema described above although fatty infarction could have a similar radiographic presentation. Please correlate with clinical symptomatology Marquis Mcdonald MD PHYSICAL EXAMINATION: GENERAL: Patient is very somnolent. HEENT: The head is atraumatic. Pupils constricted, but reactive to light. The sclerae is pale. Oropharynx, dry mucosa. No lesions. No thrush. NECK: Supple without adenopathy or swelling. LUNGS: Breath sounds decreased. HEART: Distant S1 and S2. No murmurs, rubs or gallops. ABDOMEN: Bowel sounds present, soft, mildly distended, protruding umbilical abdominal hernia. EXTREMITIES: No clubbing. No cyanosis. Charcot deformity of both feet at the plantar aspect with bulging deformity. 1+ edema of the legs. SKIN: No diffuse rash. NEUROLOGIC: Unable to fully assess. Patient is extremely confused and somnolent. PSYCHIATRIC: Unable to fully assess. IMPRESSION: 1. Severe sepsis. 2. Bacteremia due to group A beta strep. 3. Leukocytosis secondary to sepsis. 4. Source of sepsis - diabetic foot infection due to group A strep. 5. Acute renal failure. RECOMMENDATIONS: 1. Continue Cefazolin. 2. Monitor the repeat blood cultures. 3. Monitor white blood cell count. 4. Follow clinical status and temperature. Discussed with RN. Sen Washington MD January 17, 2018 13:36
[2018-01-17] MEDS ORDERED: MIDAZOLAM HCL 5 MG/ML VIAL (1 ML) IV PUSH ONE (16:45)
[2018-01-17] MEDS ORDERED: MIDAZOLAM HCL 5 MG/ML VIAL (1 ML) ONE (16:56)
[2018-01-17] MEDS ORDERED: GELATIN 12 MM/7 MM FOAM TOP PRN (17:00)
[2018-01-17] MEDS ORDERED: NITROGLYCERIN 0.4 MG SL 25 TABS/BTL SL PRN (17:00)
[2018-01-17] MEDS ORDERED: ACETAMINOPHEN 325 MG TAB PO PRN (17:00)
[2018-01-17] MEDS ORDERED: ALBUMIN 25% INJ 100 ML IV PRN (17:00)
[2018-01-17] MEDS ORDERED: HEPARIN SODIUM - IV 10,000 UNITS/10 ML VIAL IV FLUSH PRN (17:00)
[2018-01-17] MEDS ORDERED: SODIUM CHLOR 0.9% 1000 ML INJ 1,000 ML IV PRN (17:00)
[2018-01-17] MEDS ORDERED: MANNITOL 12.5 GM/50 ML VIAL IV PRN (17:00)
[2018-01-17] MEDS ORDERED: SODIUM CHLOR 0.9% 1000 ML INJ 1,000 ML OTHER PRN ×2 (17:00)
[2018-01-17] MEDS ORDERED: ONDANSETRON HCL 4 MG/2 ML VIAL IV PUSH PRN (17:00)
[2018-01-17] MEDS ORDERED: diphenhydrAMINE HCL 25 MG CAP PO PRN (17:00)
[2018-01-17] MEDS ORDERED: SODIUM CHLORIDE 0.9% FLUSH 10 ML FLUSH IV FLUSH PRN (17:00)
[2018-01-17] MEDS ORDERED: DEXTROSE 50% IN WATER 50 ML VIAL(D50) IV PUSH PRN (17:30)
[2018-01-17] MEDS ORDERED: MISC INFORMATION OTHER ONE (17:30)
--- NOTE | 2018-01-17 17:31 | PD.PROCEDR ---
Central Line Procedure REASON FOR PROCEDURE Central venous access PROCEDURE PERFORMED Vascular Cath placement: Right IJ CONSENT Informed consent for procedure was obtained from POYoel nunez. The risks and benefits of the procedure were discussed to include but limited to bleeding, clot formation, infection, and even . ANESTHESIA Local injection of 1% Lidocaine DESCRIPTION OF THE PROCEDURE The patient was placed in supine, mild Trendelenburg position. The area was exposed and cleansed with ChloraPrep, times two. Large sterile drape was used to cover the patient, with the site exposed, under sterile conditions including cap, face mask, sterile gown, and sterile gloves. On single attempt, the introducer needle was inserted with negative pressure in syringe and venous flash was obtained. The guide wire was then advanced without any restriction and the needle was removed. The advancement of dilators was used without any complications. Using Seldinger technique the vascular catheter was advanced over the guide wire to a depth of 20 centimeters. The guide wire was removed. All ports were aspirated with dark venous blood return and flushed easily with sterile saline. All ports were capped. Antibiotic disc was placed around central line at puncture site. The vascular Was secured to the skin with two interrupted 2.0 silk sutures. The area was bandaged with sterile see-through central line bandage. RADIOLOGICAL DATA Ultrasound guidance was used to locate right IJ. Doppler/color flow was used to confirm venous flow. COMPLICATIONS: No apparent complications ESTIMATED BLOOD LOSS: Less than 2cc. Maddi Dominguez MD January 17, 2018 17:31
--- NOTE | 2018-01-17 17:49 | RADRPT ---
EXAM DATE/TIME: 01/17/2018 17:23 [place] COMPARISON: CHEST SINGLE AP, January 14, 2018, 20:25. INDICATIONS : Dialysis catheter placement MEDICAL HISTORY : Hypertension. Cardiovascular disease. Diabetes mellitus type II. Renal disease SURGICAL HISTORY : None. ENCOUNTER: Initial ACUITY: 1 day PAIN SCORE: Non-responsive. LOCATION: Bilateral chest FINDINGS: Interval placement right IJ dialysis catheter with tip in the A2 caval junction. No pneumothorax. Per sistent left lower lung zone airspace disease with effacement of the hemidiaphragm. Cardiomediastinal contours are stable. Remainder of the exam is unchanged. CONCLUSION: 1. Right IJ dialysis catheter in good position without pneumothorax. 2. Mild airspace disease in the left lower lung zone, likely atelectasis. Nam Tinajero MD on January 17, 2018 at 17:46 Board Certified Radiologist. This report was verified electronically.
[2018-01-17] MEDS: PIPERACIL-TAZO 2.25 GM PREMIX 50 ML IV SCH (18:25)
--- NOTE | 2018-01-17 19:14 | PD.CONS ---
History of Present Illness Service Podiatry/foot and ankle surgery Consult Requested By Reason for Consult Bilateral lower extremity ulcers Primary Care Physician Unknown Diagnoses: History of Present Illness Podiatry consulted for this 57-year-old male who was admitted with altered mental status with acute on chronic kidney disease, hypernatremia and history of schizophrenia and psychogenic polydipsia. Patient was found to be in septic shock, lethargic, poorly responsive, and acidemic. His blood cultures are positive for strep, and foot deep cultures are also growing strep. Aircraft Detail Draftsperson consult to evaluate ulcerations. 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 Past Medical History As dictated HPI Active Ordered Medications Current Medications Medications (Trade) Dose Ordered Sig/Portia Route Start Time Stop Time Status Last Admin (NS Flush) 2 ml UNSCH PRN IV FLUSH 01/14/18 22:45 (NS Flush) 2 ml BID IV FLUSH 01/15/18 09:00 01/17/18 09:01 (Duoneb Neb) 1 ampule Q2HR NEB PRN INH 01/14/18 22:45 (Heparin Inj) 5,000 units Q8H SQ 01/14/18 23:00 Future Hold 01/17/18 06:45 [place] [place] 1 Q361D XX 01/14/18 22:45 (Chlorhexidine 2% Cloth) 3 pack Taper DAILY@04 TOP 01/15/18 04:00 01/11/19 03:59 01/17/18 04:00 (Chlorhexidine 2% Cloth) 3 pack UNSCH PRN TOP 01/14/18 22:45 (Tylenol) 650 mg Q4H PRN PO 01/15/18 01:00 (Morphine Inj) 2 mg Q4H PRN IV PUSH 01/15/18 01:00 Future Hold (Aspirin) 325 mg DAILY PO 01/15/18 09:00 01/16/18 08:45 (Vistaril) 50 mg BID PO 01/15/18 09:00 Future Hold 01/16/18 08:45 (D50w (Vial) Inj) 50 ml UNSCH PRN IV PUSH 01/15/18 01:00 (Glucagon Inj) 1 mg UNSCH PRN OTHER 01/15/18 01:00 (NovoLOG SUPPLEMENTAL SCALE) 1 ACHS SLIDING SCALE SQ 01/15/18 08:00 01/17/18 17:00 Patient Own Medication PT OWN MED: THIORIDAZINE DOSE 10... DAILY PO 01/15/18 09:00 Future Hold 01/16/18 08:46 (Pepcid Inj) 10 mg Q12HR IV PUSH 01/15/18 21:00 01/17/18 09:01 (Romazicon Inj) 0.2 mg Q1M PRN IV PUSH 01/16/18 01:00 (Ativan) 1 mg Q4H PRN PO 01/16/18 01:00 Future Hold (Ativan Inj) 1 mg Q4H PRN IV PUSH 01/16/18 01:00 Future Hold (Ativan) 2 mg Q2H PRN PO 01/16/18 01:00 Future Hold (Ativan Inj) 2 mg Q2H PRN IV PUSH 01/16/18 01:00 Future Hold 01/16/18 09:08 (Ativan Inj) 2 mg Q1H PRN IV PUSH 01/16/18 01:00 Future Hold (Ativan Inj) 2 mg Q15M PRN IV PUSH 01/16/18 01:00 Future Hold Cefazolin Sodium/ Dextrose 50 ml @ 100 mls/hr Q12H IV 01/16/18 15:00 01/17/18 15:10 Sodium Bicarbonate 150 meq/Dextrose 1,000 ml @ 100 mls/hr Q10H IV 01/16/18 16:15 01/17/18 11:59 (SoluCORTEF INJ) 50 mg Q12H IV PUSH 01/17/18 11:00 01/17/18 11:38 Piperacillin Sod/ Tazobactam Sod 50 ml @ 100 mls/hr Q8H IV 01/17/18 17:00 01/17/18 18:25 Sodium Chloride 1,000 ml @ 0 mls/hr Q0M PRN OTHER 01/17/18 17:00 (Heparin Inj) 8,000 units UNSCH PRN IV FLUSH 01/17/18 17:00 Sodium Chloride 1,000 ml @ 200 mls/hr Q5H PRN IV 01/17/18 17:00 Sodium Chloride 1,000 ml @ 0 mls/hr Q0M PRN OTHER 01/17/18 17:00 (Mannitol Inj) 12.5 gm UNSCH PRN IV 01/17/18 17:00 Albumin Human 100 ml @ 60 mls/hr UNSCH PRN IV 01/17/18 17:00 (NS Flush) 5 ml UNSCH PRN IV FLUSH 01/17/18 17:00 (Heparin Inj) UNSCH PRN .XX 01/17/18 17:00 (Gentamicin Inj) 20 mg UNSCH PRN OTHER 01/17/18 17:00 (Zofran Inj) 4 mg UNSCH PRN IV PUSH 01/17/18 17:00 (Tylenol) 650 mg UNSCH PRN PO 01/17/18 17:00 (Benadryl) 25 mg UNSCH PRN PO 01/17/18 17:00 (Nitrostat Sl) 0.4 mg UNSCH PRN SL 01/17/18 17:00 (Catapres) 0.1 mg UNSCH PRN PO 01/17/18 17:00 (Gelfoam 12 Mm/7 Mm Top) 1 foam UNSCH PRN TOP 01/17/18 17:00 Insulin Human Regular 100 units/ Sodium Chloride 100 ml @ 0.5 mls/hr TITRATE PRN IV 01/17/18 17:30 (D50w (Vial) Inj) 50 ml UNSCH PRN IV PUSH 01/17/18 17:30 Physical Exam Vital Signs Vital Signs Date Time Temp Pulse Resp B/P (MAP) Pulse Ox O2 Delivery O2 Flow Rate FiO2 01/17/18 16:00 54 01/17/18 16:00 97.6 54 26 133/59 (83) 97 01/17/18 14:00 54 01/17/18 12:00 60 01/17/18 12:00 97.4 60 16 118/57 (77) 98 01/17/18 10:00 62 01/17/18 08:00 97.6 54 24 127/63 (84) 97 01/17/18 08:00 54 01/17/18 07:41 98 Nasal Cannula 2.00 01/17/18 06:00 52 01/17/18 04:00 53 01/17/18 04:00 98.0 65 19 113/57 (75) 99 01/17/18 02:00 54 01/17/18 00:00 98.4 52 20 113/56 (75) 98 01/17/18 00:00 52 01/16/18 22:00 53 01/16/18 20:00 98.2 52 21 114/58 (76) 99 01/16/18 20:00 52 01/16/18 19:29 99 Nasal Cannula 2.00 Physical Exam Lower extremity physical exam: Vascular: Dorsalis pedis diminished, posterior tibial diminished; bilaterally. Capillary refill time within normal limits to digits 5 bilateral foot. Edema present bilateral foot and ankle Neuro: Gross sensation intact to bilateral lower extremity. Pinpoint sensation decreased bilaterally. No hyperalgesia noted to bilateral lower extremity Dermatology: Right plantar midfoot ulceration with granular base associated fluctuance, mild erythema noted. Left plantar midfoot ulceration with fluctuance noted. Concern for bilateral foot abscesses. Right anterior leg superficial ulceration measuring less than 1 cm x 1 cm with granular base and no associated erythema or edema. Musculoskeletal: Rocker-bottom deformity noted to bilateral foot. Laboratory Laboratory Tests Test 01/16/18 19:25 01/16/18 20:52 01/16/18 22:16 01/17/18 00:05 Blood Gas Puncture Site LT BRACHIAL LT BRACHIAL Blood Gas Patient Temperature 98.6 98.6 Blood Gas HCO3 9 9 Blood Gas Base Excess -15.7 -15.8 Blood Gas Oxygen Saturation 96 96 Arterial Blood pH 7.35 7.36 Arterial Blood Partial Pressure CO2 17 16 Arterial Blood Partial Pressure O2 131 118 Arterial Blood Oxygen Content 14.2 14.4 Arterial Blood Carboxyhemoglobin 0.9 0.9 Arterial Blood Methemoglobin 1.4 1.3 Blood Gas Hemoglobin 10.4 10.6 Oxygen Delivery Device NASAL CANNULA NASAL CANNULA Blood Gas Liter Flow 2 2 Sodium Level 136 Hemoglobin 10.9 Hematocrit 33.2 Test 01/17/18 04:38 01/17/18 05:53 01/17/18 08:00 01/17/18 10:36 White Blood Count 31.1 Red Blood Count 3.40 Hemoglobin 10.1 10.3 Hematocrit 30.5 32.0 Mean Corpuscular Volume 89.9 Mean Corpuscular Hemoglobin 29.8 Mean Corpuscular Hemoglobin Concent 33.1 Red Cell Distribution Width 15.1 Platelet Count 248 Mean Platelet Volume 10.6 CBC Comment AUTO DIFF Differential Total Cells Counted 100 Neutrophils % (Manual) 82 Band Neutrophils % 13 Lymphocytes % 1 Monocytes % 2 Neutrophils # (Manual) 30.2 Myelocytes 2 Differential Comment FINAL DIFF MANUAL Platelet Estimate NORMAL Platelet Morphology Comment NORMAL Prothrombin Time 21.1 Prothromb Time International Ratio 2.1 Blood Urea Nitrogen 87 Creatinine 3.85 Random Glucose 242 Total Protein 6.1 Albumin 1.2 Calcium Level 7.5 Phosphorus Level 6.0 Magnesium Level 2.1 Alkaline Phosphatase 386 Aspartate Amino Transf (AST/SGOT) 107 Alanine Aminotransferase (ALT/SGPT) 85 Total Bilirubin 1.0 Direct Bilirubin 0.7 Sodium Level 134 Potassium Level 4.6 Chloride Level 101 Carbon Dioxide Level 9.9 Anion Gap 23 Estimat Glomerular Filtration Rate 16 Hepatitis A IgM Antibody NONREACTIVE Hepatitis B Surface Antigen NONREACTIVE Hepatitis B Core IgM Antibody NONREACTIVE Hepatitis C IgG Antibody REACTIVE Blood Gas Puncture Site LT BRACHIAL Blood Gas Patient Temperature 98.6 Blood Gas HCO3 9 Blood Gas Base Excess -15.4 Blood Gas Oxygen Saturation 95 Arterial Blood pH 7.37 Arterial Blood Partial Pressure CO2 16 Arterial Blood Partial Pressure O2 118 Arterial Blood Oxygen Content 14.1 Arterial Blood Carboxyhemoglobin 0.9 Arterial Blood Methemoglobin 1.4 Blood Gas Hemoglobin 10.4 Oxygen Delivery Device NASAL CANNULA Blood Gas Liter Flow 2 Lactic Acid Level 1.4 B-Hydroxybutyrate 4.24 Test 01/17/18 10:55 01/17/18 12:26 01/17/18 18:16 Hemoglobin 9.8 Hematocrit 30.7 Lactic Acid Level 1.5 1.6 Date/Time Source Procedure Growth Status 01/17/18 10:55 Blood Peripheral Aerobic Blood Culture Pending Received 01/17/18 10:55 Blood Peripheral Anaerobic Blood Culture Pending Received 01/17/18 13:15 Urine Catheterized Urine Urine Culture Pending Received 01/16/18 15:00 Wound Foot Gram Stain - Final Resulted 01/16/18 15:00 Wound Culture - Preliminary Group A Beta Strep Resulted Result Diagram: 01/17/18 1226 01/17/18 0438 Imaging Last Impressions Liver Ultrasound 01/16/18 0000 Signed Impressions: Service Date/Time: January 16:59 - CONCLUSION: 1. Hepatomegaly and diffuse increased hepatic echogenicity without intrahepatic ductal dilatation or focal mass. Findings are most consistent with hepatic steatosis or medical liver disease. 2. Trace ascites. 3. Cholelithiasis with gallbladder wall prominence and trace pericholecystic fluid. These findings may be seen in the setting of chronic liver disease or ascites and significantly limit ultrasound evaluation for acute cholecystitis. If there is significant clinical concern regarding acute cholecystitis, HIDA scan may be performed to evaluate for cystic duct patency. Nam Tinajero MD Head CT 01/14/182000 Signed Impressions: Service Date/Time: Sunday, January 14, 2018 20:22 - CONCLUSION: Normal examination for a patient of this age. Marcio Hansen MD Chest X-Ray 01/14/182000 Signed Impressions: Service Date/Time: Sunday, January 14, 2018 20:25 - CONCLUSION: 1. Mild cardiomegaly. No focal consolidation or effusion. Marcio Hansen MD Lower Extremity CT 01/14/18 Signed Impressions: Service Date/Time: Sunday, January 14, 2018 23:38 - CONCLUSION: 1. CT findings characteristic of a severe Charcot foot in the mid and hindfoot with collapse of the plantar arch. Osteoarthritic changes of the first MTP joint 2. However, findings all appear to be chronic with no acute osseous injury Marquis Mcdonald MD Abdomen/Pelvis CT 01/14/18 0000 Signed Impressions: Service Date/Time: Sunday, January 14, 2018 23:35 - CONCLUSION: 1. CT findings suggest volume overload or low oncotic pressures with some flank and mesenteric edema, gallbladder wall thickening and some free fluid in the pelvis. Heart size is somewhat prominent. 2. Bilateral symmetric gynecomastia. Nonspecific findings but can be associated with some chronic disease processes or medications. 3. Left periaortic borderline prominent lymph nodes. Again, nonspecific but may be reactive associated with the aforementioned mesenteric edema. 4. 5.7 cm periumbilical fatty hernia. There is now some fluid along the periphery of the hernia. This could be related to the generalized edema described above although fatty infarction could have a similar radiographic presentation. Please correlate with clinical symptomatology Marquis Mcdonald MD Assessment and Plan Assessment and Plan 57-year-old male with bilateral lower extremity plantar ulcers concerning for abscesses, right anterior leg superficial ulceration Patient examined and evaluated nurse present bedside Patient is unable to respond to/answer questions Concern for abscess to bilateral foot, left greater than right as nurse states yesterday bedside wound care drained purulent drainage from left foot Recommend bilateral MRIs to foot without contrast secondary to elevated creatinine Patient to remain n.p.o. after midnight in case MRI positive for abscess Discussed with nurse Dressings changed bedside with nurse present Juani Vivar DPM January 17, 2018 19:14
[2018-01-17] MEDS: INSULIN REGULAR (IV INFUSION) 100 UNITS in SODIUM CHLORIDE 0.9% INJ 99 ML IV PRN (20:35)
[2018-01-17 23:06] LABS: HEMATOCRIT 27.2 % (39.0-51.0); HEMOGLOBIN 8.9 GM/DL (13.0-17.0)
[2018-01-18] VITALS (23 sets, daily range): BP systolic 144–182; BP diastolic 68–81; PULSE 47–63; RESP 12–27; TEMP 97.4–98.3; O2SAT 95–100
[2018-01-18] MEDS: PIPERACIL-TAZO 2.25 GM PREMIX 50 ML IV SCH ×3 (00:27→16:50)
[2018-01-18] MEDS: ceFAZolin 2 GM PREMIX 50 ML IV SCH ×2 (03:31→15:39)
[2018-01-18] MEDS: CHLORHEXIDINE GLUCONATE 2 % 1 PACK (2 CLOTHS) TOP SCH (03:34)
--- NOTE | 2018-01-18 05:09 | RADRPT ---
EXAM DATE/TIME: 01/18/2018 02:58 [facility] COMPARISON: CHEST SINGLE AP, January 17, 2018, 17:23. INDICATIONS : Shortness of breath, possible pulmonary disease. MEDICAL HISTORY : Hypertension. Cardiovascular disease. Diabetes mellitus type II. Renal disease. SURGICAL HISTORY : None. ENCOUNTER: Subsequent ACUITY: 4 - 6 days PAIN SCORE: Non-responsive. LOCATION: Bilateral chest FINDINGS: Right dialysis catheter is stable in good position. Dense consolidation at the left base and mild haz y right perihilar and basilar pleura parenchymal opacity or unchanged. Cardiac contours are unchanged . CONCLUSION: No significant change Sylvester Estrella MD on January 18, 2018 at 5:07 Board Certified Radiologist. This report was verified electronically.
[2018-01-18 05:10] LABS: INTERNATIONAL NORMALIZED RATIO 3.1 RATIO; PROTHROMBIN TIME - PATIENT 31.4 SEC (9.8-11.6)
[2018-01-18 05:17] LABS: AUTOMATED NEUTROPHIL # 22.5 TH/MM3 (1.8-7.7); BASOPHIL % 0.1 % (0.0-2.0); EOSINOPHIL % 0.1 % (0.0-4.0); HEMATOCRIT 26.5 % (39.0-51.0); HEMOGLOBIN 8.8 GM/DL (13.0-17.0); LYMPH % 5.1 % (9.0-44.0); LYMPHOCYTE # 1.3 TH/MM3 (1.0-4.8); MEAN CELL VOLUME 88.1 FL (80.0-100.0); MEAN CORPUSCULAR HEMOGLOBIN 29.3 PG (27.0-34.0); MEAN CORPUSCULAR HGB CONC 33.2 % (32.0-36.0); MEAN PLATELET VOLUME 10.2 FL (7.0-11.0); MONO % 3.4 % (0.0-8.0); MONOCYTE # 0.8 TH/MM3 (0-0.9); NEUT % 91.3 % (16.0-70.0); PLATELET COUNT 215 TH/MM3 (150-450); RED BLOOD COUNT 3.01 MIL/MM3 (4.50-5.90); WHITE BLOOD COUNT 24.7 TH/MM3 (4.0-11.0)
[2018-01-18 05:37] LABS: ALBUMIN 1.3 GM/DL (3.4-5.0); CALCIUM 7.2 MG/DL (8.5-10.1); CALCIUM-PROTEIN CORRECTED 7.6 MG/DL (8.5-10.1); CREATININE 4.42 MG/DL (0.60-1.30); MAGNESIUM 2.2 MG/DL (1.5-2.5); PHOSPHORUS 4.5 MG/DL (2.5-4.9); TOTAL BILIRUBIN ADULT 0.6 MG/DL (0.2-1.0); TOTAL PROTEIN 6.4 GM/DL (6.4-8.2)
[2018-01-18 07:28] LABS: BANDS 3 % (0-6); CORRECTED NUCLEATED RBC 1 /100 WBC (0-0); LYMPHOCYTES 7 % (9-44); METAMYELOCYTES 1 % (0-1); MONOCYTES 2 % (0-8); MYELOCYTES 1 % (0-0); NEUTROPHIL # MANUAL DIFF 22.5 TH/MM3 (1.8-7.7); NUCLEATED RED BLOOD CELL 1 (0-0); POLYS (SEG NEUTROPHILS) 86 % (16-70)
[2018-01-18 07:29] LABS: TOXIC GRANULATION 1+ (NORMAL)
[2018-01-18] MEDS: SODIUM CHLORIDE 0.9% FLUSH 10 ML FLUSH IV FLUSH SCH ×2 (08:38→20:32)
[2018-01-18] MEDS: ASPIRIN 325 MG TAB PO SCH (08:45)
[2018-01-18] MEDS: FAMOTIDINE 20 MG/2 ML VIAL IV PUSH SCH ×2 (08:48→20:32)
[2018-01-18] MEDS: GENTAMICIN SULFATE 20 MG/2 ML VIAL OTHER PRN (09:13)
[2018-01-18] MEDS: HEPARIN SODIUM - IV 10,000 UNITS/10 ML VIAL PRN (09:14)
[2018-01-18 10:54] LABS: HEMATOCRIT 27.3 % (39.0-51.0); HEMOGLOBIN 9.1 GM/DL (13.0-17.0)
[2018-01-18] MEDS: HYDROCORTISONE SOD SUCCINATE 100 MG VIAL IV PUSH SCH (10:58)
--- NOTE | 2018-01-18 11:04 | HHI.GIFU ---
Subjective Remarks Pt awake and answering questions appropriately Receiving HD No GI complaints at this time (Skylar Sykes) Objective Vitals I&O Vital Signs Date Time Temp Pulse Resp B/P (MAP) Pulse Ox O2 Delivery O2 Flow Rate FiO2 01/18/18 10:00 48 01/18/18 08:00 52 01/18/18 08:00 97.6 52 22 160/70 (100) 97 01/18/18 07:16 100 Nasal Cannula 3.00 01/18/18 06:00 53 01/18/18 04:00 97.8 50 15 162/70 (100) 100 01/18/18 04:00 50 01/18/18 02:00 47 01/18/18 00:00 98.3 49 14 162/72 (102) 100 01/18/18 00:00 49 01/17/18 22:00 52 01/17/18 20:00 53 01/17/18 20:00 98.0 53 20 126/81 (96) 99 01/17/18 18:00 55 01/17/18 16:00 54 01/17/18 16:00 97.6 54 26 133/59 (83) 97 01/17/18 14:00 54 01/17/18 12:00 60 01/17/18 12:00 97.4 60 16 118/57 (77) 98 I/O 01/17/18 01/17/18 01/17/18 01/18/18 01/18/18 01/18/18 07:00 15:00 23:00 07:00 15:00 23:00 Intake Total 1050 ml 50 ml 100 ml 1100 ml Output Total 1250 ml 250 ml 400 ml Balance -200 ml 50 ml -150 ml 700 ml Intake Oral 0 ml 0 ml 0 ml IV Total 1050 ml 50 ml 100 ml 1100 ml Output Urine Total 1250 ml 250 ml 400 ml Stool Total 0 ml 0 ml 0 ml Laboratory Laboratory Tests Test 01/17/18 12:26 01/17/18 18:16 01/17/18 22:50 01/18/18 04:08 Hemoglobin 9.8 8.9 8.8 Hematocrit 30.7 27.2 26.5 Lactic Acid Level 1.5 1.6 1.5 Serum Osmolality 325 Salicylates Level LESS THAN 1.7 White Blood Count 24.7 Red Blood Count 3.01 Mean Corpuscular Volume 88.1 Mean Corpuscular Hemoglobin 29.3 Mean Corpuscular Hemoglobin Concent 33.2 Red Cell Distribution Width 15.0 Platelet Count 215 Mean Platelet Volume 10.2 Neutrophils (%) (Auto) 91.3 Lymphocytes (%) (Auto) 5.1 Monocytes (%) (Auto) 3.4 Eosinophils (%) (Auto) 0.1 Basophils (%) (Auto) 0.1 Neutrophils # (Auto) 22.5 Lymphocytes # (Auto) 1.3 Monocytes # (Auto) 0.8 Eosinophils # (Auto) 0.0 Basophils # (Auto) 0.0 CBC Comment AUTO DIFF Differential Total Cells Counted 100 Neutrophils % (Manual) 86 Band Neutrophils % 3 Lymphocytes % 7 Monocytes % 2 Neutrophils # (Manual) 22.5 Metamyelocytes 1 Myelocytes 1 Nucleated Red Blood Cells 1 Differential Comment FINAL DIFF MANUAL Toxic Granulation 1+ Platelet Estimate NORMAL Platelet Morphology Comment NORMAL Prothrombin Time 31.4 Prothromb Time International Ratio 3.1 Blood Urea Nitrogen 97 Creatinine 4.42 Random Glucose 255 Total Protein 6.4 Albumin 1.3 Calcium Level 7.2 Phosphorus Level 4.5 Magnesium Level 2.2 Alkaline Phosphatase 319 Aspartate Amino Transf (AST/SGOT) 64 Alanine Aminotransferase (ALT/SGPT) 52 Total Bilirubin 0.6 Sodium Level 136 Potassium Level 3.7 Chloride Level 101 Carbon Dioxide Level 22.0 Anion Gap 13 Estimat Glomerular Filtration Rate 14 Protein Corrected Calcium 7.6 B-Hydroxybutyrate 0.12 Test 01/18/18 05:04 01/18/18 10:05 01/18/18 10:30 Blood Gas Puncture Site RT RADIAL Blood Gas Patient Temperature 98.6 Blood Gas HCO3 22 Blood Gas Base Excess -1.8 Blood Gas Oxygen Saturation 97 Arterial Blood pH 7.44 Arterial Blood Partial Pressure CO2 32 Arterial Blood Partial Pressure O2 163 Arterial Blood Oxygen Content 11.9 Arterial Blood Carboxyhemoglobin 0.8 Arterial Blood Methemoglobin 1.2 Blood Gas Hemoglobin 8.4 Oxygen Delivery Device NASAL CANNULA Blood Gas Liter Flow 2 Urine Ketones NEG Urine Eosinophils NONE SEEN Hemoglobin 9.1 Hematocrit 27.3 Date/Time Source Procedure Growth Status 01/17/18 10:55 Blood Peripheral Aerobic Blood Culture Pending Received 01/17/18 10:55 Blood Peripheral Anaerobic Blood Culture Pending Received 01/17/18 13:15 Urine Catheterized Urine Urine Culture Pending Received 01/16/18 15:00 Wound Foot Gram Stain - Final Complete 01/16/18 15:00 Wound Culture - Final Group A Beta Strep Complete Imaging Last Impressions Chest X-Ray 01/18/18 0600 Signed Impressions: Service Date/Time: Thursday, January 18, 2018 02:58 - CONCLUSION: No significant change Sylvester Estrella MD Liver Ultrasound 01/16/18 0000 Signed Impressions: Service Date/Time: January 16:59 - CONCLUSION: 1. Hepatomegaly and diffuse increased hepatic echogenicity without intrahepatic ductal dilatation or focal mass. Findings are most consistent with hepatic steatosis or medical liver disease. 2. Trace ascites. 3. Cholelithiasis with gallbladder wall prominence and trace pericholecystic fluid. These findings may be seen in the setting of chronic liver disease or ascites and significantly limit ultrasound evaluation for acute cholecystitis. If there is significant clinical concern regarding acute cholecystitis, HIDA scan may be performed to evaluate for cystic duct patency. Nam Tinajero MD Head CT 01/14/182000 Signed Impressions: Service Date/Time: Sunday, January 14, 2018 20:22 - CONCLUSION: Normal examination for a patient of this age. Marcio Hansen MD Lower Extremity CT 01/14/18 Signed Impressions: Service Date/Time: Sunday, January 14, 2018 23:38 - CONCLUSION: 1. CT findings characteristic of a severe Charcot foot in the mid and hindfoot with collapse of the plantar arch. Osteoarthritic changes of the first MTP joint 2. However, findings all appear to be chronic with no acute osseous injury Marquis Mcdonald MD Abdomen/Pelvis CT 01/14/18 0000 Signed Impressions: Service Date/Time: Sunday, January 14, 2018 23:35 - CONCLUSION: 1. CT findings suggest volume overload or low oncotic pressures with some flank and mesenteric edema, gallbladder wall thickening and some free fluid in the pelvis. Heart size is somewhat prominent. 2. Bilateral symmetric gynecomastia. Nonspecific findings but can be associated with some chronic disease processes or medications. 3. Left periaortic borderline prominent lymph nodes. Again, nonspecific but may be reactive associated with the aforementioned mesenteric edema. 4. 5.7 cm periumbilical fatty hernia. There is now some fluid along the periphery of the hernia. This could be related to the generalized edema described above although fatty infarction could have a similar radiographic presentation. Please correlate with clinical symptomatology Marquis Mcdonald MD Physical Exam HEENT: Normocephalic; atraumatic CHEST: Even/unlabored CARDIAC: RRR ABDOMEN: Soft, nondistended, nontender; bowel sounds active SIGN HANGER: Awake, answers questions appropriately (Skylar Sykes) Assessment and Plan Plan Assessment: - Elevated LFTs- previously worked up by our service for same in February 2017- Hepatitis panel done at that time was negative, noted to be likely secondary to medication. February 2017 labs: AST-617 ALT-311 Alk phos-618 T bili-0.8 Iron-15 TIBC-157 %sat-9.6 Ferritin-245 Currently: AST-107 ALT-85 Alk phos-386 T bili-1 Coagulopathy (INR 2.1) Hypoalbuminemia (albumin 1.2) Hepatitis panel revealed positive Hep C IgG antibody Unable to obtain social history including alcohol and illicit drugs. No visible tattoos on my exam. CT abdomen and pelvis W/O IV contrast (01/14) --> CT findings suggest volume overload or low oncotic pressures with some flank and mesenteric edema, gallbladder wall thickening and some free fluid in the pelvis. Heart size is somewhat prominent. Bilateral symmetric gynecomastia. Nonspecific findings but can be associated with some chronic disease processes or medications. Left periaortic borderline prominent lymph nodes. Again, nonspecific but may be reactive associated with the aforementioned mesenteric edema. 5.7 cm periumbilical fatty hernia. There is now some fluid along the periphery of the hernia. This could be related to the generalized edema described above although fatty infarction could have a similar radiographic presentation. Please correlate with clinical symptomatology US liver (01/16) --> Hepatomegaly and diffuse increased hepatic echogenicity without intrahepatic ductal dilatation or focal mass. Findings are most consistent with hepatic steatosis or medical liver disease. Trace ascites. Cholelithiasis with gallbladder wall prominence and trace pericholecystic fluid. These findings may be seen in the setting of chronic liver disease or ascites and significantly limit ultrasound evaluation for acute cholecystitis. If there is significant clinical concern regarding acute cholecystitis, HIDA scan may be performed to evaluate for cystic duct patency. - Anemia- previous work up by our service in February 2017 --> EGD and colonoscopy --> Esophagus was normal. Food residue in the entire examined stomach. Medium sized ulcer in the gastric antrum. Significant amount of stool was present throughout the entire examined colon. Retroflexion not performed. Incomplete exam due to poor prep. Barium enema revealed an extremely redundant colon. No definite mucosa abnormality was identified, but only partial visualization of the cecum. - Leukocytosis with elevated lactic acid on arrival and febrile- Infection to LLE- on Zosyn and Cefazolin - BISHOP on CKD Differentials for elevated LFTs: Hepatitis C vs shocked liver secondary to hypotension from sepsis (lowest BP documented on 01/14 was 85/53) vs hepatic congestion (01/18) Pt awake today and answering questions appropriately. Denies any GI symptoms at this time. He is now on hemodialysis. Drop in H/H ntoed overnight, normocytic, likely multifactorial- no obvious GIB LFTs with some improvement today, AST-64 ALT-52 Alk phos-319 T bili-0.6 Plan: Liver Work up pending Hepatitis C genotype and RNA quant Alk phos iso enzymes- chronically elevated sometimes isolated without elevation in LFTs Avoid hepatotoxins Monitor H/H Transfuse as needed Notify GI of any obvious GIB Further recommendations based on findings of above and clinical course Pt has been seen and examined by myself and Dr. Llanos and this note is written on his behalf (Skylar Sykes) Physician Comments seen, examined agree with above (Shira Moody MD) Skylar Sykes January 18, 2018 11:04 Shira Moody MD January 18, 2018 15:22
--- NOTE | 2018-01-18 11:09 | HHI.CCPN ---
Subjective Remarks/Hospital Course 57-year-old male presents from home with altered mental status. Patient has been altered and is oriented to person only. According to family, patient fell 2 days ago but we do not have any other information regarding this. Patient does have a history of chronic alcohol abuse but denies any alcohol today. Subjective: 01/15: Late entry note patient seen a 7am. Patient lethargic but protecting airway. Patient is altered and oriented to self. Patient noted to be hyponatremic questionable if chronic. He continues on IV fluids NS 175 cc/hr. 01/16: Patient noted to be more lethargic today ABG performed severe metabolic acidosis noted IV fluids normal saline discontinued. She received 50 mEq of sodium bicarbonate IV push. Patient started on sodium bicarbonate infusion at 100 cc/hour. Antipsychotic medications Thorazine placed on hold all sedative type medications placed on hold. Patient was noted to have elevated creatinine nephrology consulted. Noted elevation in LFTs, hepatitis profile and liver ultrasound pending, likely shock liver secondary to hypotension due to septic shock. 01/17: The patient slightly more alert today, and combative. Continues on sodium bicarbonate infusion at 100 cc an hour with minimal improvement. INR noted to continue to be elevated GI has been consulted. Hepatitis panel is pending. Persistent leukocytosis WBC count elevation from 25-31 this a.m. thought to be possibly secondary to hydrocortisone. Initiated hydrocortisone weaning, expanded antibiotic coverage with Zosyn renally adjusted. Patient pancultured. patient received 1 dose of Lasix last evening with 1250 cc urine output in 12 hours. 01/18: Last evening Vas-Cath placed for initiation of dialysis. Creatinine increased this a.m. to 4.4 hemodialysis in progress. Patient's beta hydroxybutyrate was noted to be 4.24 last evening, insulin infusion initiated. Anion gap metabolic acidosis corrected. ABGs within normal limits. His a.m. patient alert, awake requesting something to drink. Formal swallow evaluation performed mechanical soft diet initiated. Patient was noted to have hepatitis C positive IgG, antibodies, continued workup underway. INR continues to be elevated at 3.1 this a.m.. Antibiotic coverage expanded yesterday with Zosyn WBC count downtrending. Patient hemodynamically stable hydrocortisone weaning initiated. Patient scheduled for MRI bilateral feet secondary to significant foot infection., Objective Vital Signs Date Time Temp Pulse Resp B/P (MAP) Pulse Ox O2 Delivery O2 Flow Rate FiO2 5//18 10:00 48 01/18/18 08:00 97.6 22 160/70 (100) 97 01/18/18 07:16 Nasal Cannula 3.00 Intake and Output 01/18/18 01/18/18 01/19/18 08:00 16:00 00:00 Intake Total 100 ml Output Total 400 ml Balance -300 ml Result Diagram: 01/18/18 1030 01/18/18 0408 Other Results Microbiology Date/Time Source Procedure Growth Status 01/16/18 15:00 Wound Foot Gram Stain - Final Complete 01/16/18 15:00 Wound Culture - Final Group A Beta Strep Complete 01/15/18 22:15 Wound Foot Gram Stain - Final Complete 01/15/18 22:15 Wound Culture - Final Group A Beta Strep Complete Laboratory Tests Test 01/18/18 05:04 Blood Gas Puncture Site RT RADIAL Blood Gas Patient Temperature 98.6 Blood Gas HCO3 22 mmol/L (22-26) Blood Gas Base Excess -1.8 mmol/L (-2-2) Blood Gas Oxygen Saturation 97 % (90-100) Arterial Blood pH 7.44 (7.380-7.420) Arterial Blood Partial Pressure CO2 32 mmHg (38-42) Arterial Blood Partial Pressure O2 163 mmHg (61-120) Arterial Blood Oxygen Content 11.9 Vol % (12.0-20.0) Arterial Blood Carboxyhemoglobin 0.8 % (0-4) Arterial Blood Methemoglobin 1.2 % (0-2) Blood Gas Hemoglobin 8.4 G/DL (12.0-16.0) Oxygen Delivery Device NASAL CANNULA Blood Gas Liter Flow 2 L/M Imaging Last Impressions Liver Ultrasound 01/16/18 0000 Signed Impressions: Service Date/Time: January 16:59 - CONCLUSION: 1. Hepatomegaly and diffuse increased hepatic echogenicity without intrahepatic ductal dilatation or focal mass. Findings are most consistent with hepatic steatosis or medical liver disease. 2. Trace ascites. 3. Cholelithiasis with gallbladder wall prominence and trace pericholecystic fluid. These findings may be seen in the setting of chronic liver disease or ascites and significantly limit ultrasound evaluation for acute cholecystitis. If there is significant clinical concern regarding acute cholecystitis, HIDA scan may be performed to evaluate for cystic duct patency. Nam Tinajero MD Head CT 01/14/182000 Signed Impressions: Service Date/Time: Sunday, January 14, 2018 20:22 - CONCLUSION: Normal examination for a patient of this age. Marcio Hansen MD Chest X-Ray 01/14/182000 Signed Impressions: Service Date/Time: Sunday, January 14, 2018 20:25 - CONCLUSION: 1. Mild cardiomegaly. No focal consolidation or effusion. Marcio Hansen MD Lower Extremity CT 01/14/18 Signed Impressions: Service Date/Time: Sunday, January 14, 2018 23:38 - CONCLUSION: 1. CT findings characteristic of a severe Charcot foot in the mid and hindfoot with collapse of the plantar arch. Osteoarthritic changes of the first MTP joint 2. However, findings all appear to be chronic with no acute osseous injury Marquis Mcdonald MD Abdomen/Pelvis CT 01/14/18 Signed Impressions: Service Date/Time: Sunday, January 14, 2018 23:35 - CONCLUSION: 1. CT findings suggest volume overload or low oncotic pressures with some flank and mesenteric edema, gallbladder wall thickening and some free fluid in the pelvis. Heart size is somewhat prominent. 2. Bilateral symmetric gynecomastia. Nonspecific findings but can be associated with some chronic disease processes or medications. 3. Left periaortic borderline prominent lymph nodes. Again, nonspecific but may be reactive associated with the aforementioned mesenteric edema. 4. 5.7 cm periumbilical fatty hernia. There is now some fluid along the periphery of the hernia. This could be related to the generalized edema described above although fatty infarction could have a similar radiographic presentation. Please correlate with clinical symptomatology Marquis Mcdonald MD Last Impressions Head CT 01/14/182000 Signed Impressions: Service Date/Time: Sunday, January 14, 2018 20:22 - CONCLUSION: Normal examination for a patient of this age. Marcio Hansen MD Chest X-Ray 01/14/182000 Signed Impressions: Service Date/Time: Sunday, January 14, 2018 20:25 - CONCLUSION: 1. Mild cardiomegaly. No focal consolidation or effusion. Marcio Hansen MD Lower Extremity CT 01/14/18 Signed Impressions: Service Date/Time: Sunday, January 14, 2018 23:38 - CONCLUSION: 1. CT findings characteristic of a severe Charcot foot in the mid and hindfoot with collapse of the plantar arch. Osteoarthritic changes of the first MTP joint 2. However, findings all appear to be chronic with no acute osseous injury Marquis Mcdonald MD Abdomen/Pelvis CT 01/14/18 Signed Impressions: Service Date/Time: Sunday, January 14, 2018 23:35 - CONCLUSION: 1. CT findings suggest volume overload or low oncotic pressures with some flank and mesenteric edema, gallbladder wall thickening and some free fluid in the pelvis. Heart size is somewhat prominent. 2. Bilateral symmetric gynecomastia. Nonspecific findings but can be associated with some chronic disease processes or medications. 3. Left periaortic borderline prominent lymph nodes. Again, nonspecific but may be reactive associated with the aforementioned mesenteric edema. 4. 5.7 cm periumbilical fatty hernia. There is now some fluid along the periphery of the hernia. This could be related to the generalized edema described above although fatty infarction could have a similar radiographic presentation. Please correlate with clinical symptomatology Marquis Mcdonald MD Last [address] 01/14/182000 Signed Impressions: Service Date/Time: Sunday, January 14, 2018 20:22 - CONCLUSION: Normal examination for a patient of this age. Marcio Hansen MD Chest X-Ray 01/14/182000 Signed Impressions: Service Date/Time: Sunday, January 14, 2018 20:25 - CONCLUSION: 1. Mild cardiomegaly. No focal consolidation or effusion. Marcio Hansen MD Objective Remarks GENERAL: Well-developed, well-nourished male in no apparent distress, alert and talkative. Bouts of intermittent confusion SKIN: Focused skin assessment warm/dry. Skin and scleral jaundiced HEAD: Atraumatic. Normocephalic. EYES: Pupils equal and round. Positive scleral icterus. No injection or drainage. ENT: No nasal bleeding or discharge. Mucous membranes pink and moist. NECK: Trachea midline. No JVD. CARDIOVASCULAR: Regular rate and rhythm. No murmur appreciated. RESPIRATORY: No accessory muscle use. Clear to auscultation. Breath sounds equal bilaterally. GASTROINTESTINAL: Abdomen soft, non-tender, nondistended. Hepatic and splenic margins not palpable. MUSCULOSKELETAL: No obvious deformities. No clubbing. No cyanosis. No edema. Chronic appearing right foot plantar wound without discharge NEUROLOGICAL: Awake and alert. No obvious cranial nerve deficits. Motor strength 5/5, moving extremities 4 A/P Assessment and Plan Plan by systems: Neurologic: Metabolic encephalopathy secondary to sepsis Schizophrenia Lethargy-resolved 01/16 Ammonia level 10 Neurology checks per ICU protocol 01/16 Hold antipsychotic meds (Thorazine) in the setting of lethargy 01/18 patient alert and oriented x 2 now with bouts of confusion Respiratory: Obtain O2 saturation greater than 92% patient currently on 3 L nasal cannula O2 saturation 97 % Duo nebs every 4 hours as needed for wheeze ABG markedly improved-7.4 4/32/163/22/-1.8 Cardiovascular: Septic shock History of hypertension Norepinephrine discontinued 01/15 0500 Maintain MAP greater than 65 Hold all antihypertensive medications in the setting of septic shock Renal: Nonoliguric BISHOP Maintain almaraz-noted fluid overload 7 liters positive. 01/16 Lasix 40 mg IV 1 dose 01/17 vascular cath placement 01/18 IHD 2 L off. Nephrology following-IHD per their recommendations Maintain almaraz -- Strict I/Os FEN/GI: Electrolyte abnormality Anion gap metabolic acidosis-resolved AK I Elevated LFTs- Shock Liver Hepatomegaly 01/16 Sodium bicarbonate 50 mEq IV push Continue Sodium bicarbonate infusion at 100 cc/hr ABG 7.30/ 17/ 116/ 8/ -16.7 Creatinine 3.6->3.8-> 4.4 today IHD today Monitor CMP BISHOP secondary to hypotension and septic shock 01/16 ultrasound of the liver- Trace ascites. Findings most consistent with hepatic steatosis or liver disease. Cholelithiasis with gallbladder wall prominence but trace pericholecystic fluid Hepatitis C IgG antibody positive Follow-up formal swallow evaluation-mechanical soft diet GI consulted appreciate recommendations Heme/ID: Anemia Persistent leukocytosis Severe sepsis Coagulopathy Hemoglobin 7.0 this a.m. ,repeat H&H- Hgb 10 INR trending up 2->3.1 heparin SQ discontinued 01/17 ID following-Ancef will expanded coveragewith Zosyn 01/15 blood culture-group A beta 01/16-follow-up wound culture bilateral feet Vitamin K 10mg x 1 dose Endocrine: Diabetes mellitus -Insulin sliding scale per ICU protocol, low dose regimen - beta hydroxybutyrate 4.4 -01/17 Insulin infusion initiated -Hold long-acting insulins while n.p.o. -- SSI MSK : Bilateral wound infection feet 5/3 Podiatry [facility] recommendations Rule out osteomyelitis PT evaluation and treat 5/3 Wound care following application per recommendations MRI B/L feet pending Prophylaxis: GI Prophylaxis Famotidine BID DVT Prophylaxis -- SCDs Teds and SCDs. Heparin SQ on hold in the setting of elevated INR 3.1 Lines: Peripheral IVs 2. Central line if indicated Dispo: Level 3 follow-up No family at bedside. Discussed with LIBRARY MONITOR at bedside Physician Maddi Lewis MD January 18, 2018 11:09
[2018-01-18] MEDS ORDERED: CALCIUM GLUCONATE INJ 2 GM in DEXTROSE 5% IN WATER 100ML INJ 100 ML IV ONE ×2 (11:15)
[2018-01-18 13:26] LABS: ALPHA-1-ANTITRYPSIN 245 mg/dL (100 - 190)
--- NOTE | 2018-01-18 13:43 | HHI.NPPN ---
Subjective Renal Failure: Acute Review of Systems General Constitutional: Fatigue Objective Data Data Vital Signs Date Time Temp Pulse Resp B/P (MAP) Pulse Ox O2 Delivery O2 Flow Rate FiO2 01/18/18 12:00 97.4 54 18 149/69 (95) 01/18/18 12:00 54 01/18/18 10:00 48 01/18/18 08:00 52 01/18/18 08:00 97.6 52 22 160/70 (100) 97 01/18/18 07:16 100 Nasal Cannula 3.00 01/18/18 06:00 53 01/18/18 04:00 97.8 50 15 162/70 (100) 100 01/18/18 04:00 50 01/18/18 02:00 47 01/18/18 00:00 98.3 49 14 162/72 (102) 100 01/18/18 00:00 49 01/17/18 22:00 52 01/17/18 20:00 53 01/17/18 20:00 98.0 53 20 126/81 (96) 99 01/17/18 18:00 55 01/17/18 16:00 54 01/17/18 16:00 97.6 54 26 133/59 (83) 97 01/17/18 14:00 54 -: 01/18/18 1030 01/18/18 0408 Physical Exam General Appearance: Comfortable, Anxious Ears & Nose Ears & Nose Exam: Tympanic Membranes Normal Pulmonary Resp Exam: Breath Sounds Equal, No Distress Cardiology CV Exam: Normal Sinus Rhythm, Good Perfusion Gastrointestinal/Abdomen GI Exam: Soft, Non-Tender, Bowel Sounds Present Musculoskeletal MS Exam: Joints Intact, Normal Tone, Unable to Ambulate Integumentary Skin Exam: Warm, Dry Neurologic Neuro Exam: Moving All Extremities, Obtunded Assessment/Plan Discussed Condition With: Patient Assessment Summary: BISHOP/Acute Renal Failure Problem List: (1) Acute worsening of stage 3 chronic kidney disease ICD Codes: N18.3 - Chronic kidney disease, stage 3 (moderate) Plan: Exact baseline is not known. Last year Creatinine was 1.7. More recently it was around 2.7 BISHOP likely due to ATN from sepsis. Renal function is worse today. He is non oliguric via almaraz. off bicarb drip on HD 2 L removed Avoid nephrotoxic agents. Maintain MAP of more than 65. Prognosis is poor. (2) Sepsis ICD Codes: A41.9 - Sepsis, unspecified organism Status: Resolved Plan: ID following. On Cefazolin, Zosyn started. Source is likely infected leg wounds. 4/4 blood cultures positive, wound culture also positive for Group B strep (3) Hyponatremia ICD Codes: E87.1 - Hypo-osmolality and hyponatremia Status: Acute Plan: Documented hx of psychogenic polydipsia. However given ETOH abuse, need to consider beer potomania. Na level stable. PO fluid restriction. (4) Anemia ICD Codes: D64.9 - Anemia, unspecified Status: Chronic Plan: Hb improved. Monitor for bleeding. Problem Qualifiers (1) Sepsis: Qualified Codes: A41.9 - Sepsis, unspecified organism Harry Vazquez MD January 18, 2018 13:43
[2018-01-19] VITALS (19 sets, daily range): BP systolic 154–192; BP diastolic 76–94; PULSE 51–61; RESP 13–30; TEMP 97.5–98; O2SAT 95–100
[2018-01-19] MEDS: PIPERACIL-TAZO 2.25 GM PREMIX 50 ML IV SCH ×2 (01:21→07:46)
[2018-01-19] MEDS: CHLORHEXIDINE GLUCONATE 2 % 1 PACK (2 CLOTHS) TOP SCH (02:50)
[2018-01-19] MEDS: ceFAZolin 2 GM PREMIX 50 ML IV SCH ×2 (02:50→15:25)
[2018-01-19 05:51] LABS: AUTOMATED NEUTROPHIL # 15.5 TH/MM3 (1.8-7.7); BASOPHIL % 0.2 % (0.0-2.0); EOSINOPHIL # 0.1 TH/MM3 (0-0.4); EOSINOPHIL % 0.3 % (0.0-4.0); HEMATOCRIT 23.4 % (39.0-51.0); HEMOGLOBIN 7.8 GM/DL (13.0-17.0); LYMPH % 7.3 % (9.0-44.0); LYMPHOCYTE # 1.3 TH/MM3 (1.0-4.8); MEAN CORPUSCULAR HEMOGLOBIN 29.7 PG (27.0-34.0); MEAN CORPUSCULAR HGB CONC 33.3 % (32.0-36.0); MEAN PLATELET VOLUME 10.3 FL (7.0-11.0); MONO % 4.8 % (0.0-8.0); MONOCYTE # 0.9 TH/MM3 (0-0.9); NEUT % 87.4 % (16.0-70.0); PLATELET COUNT 177 TH/MM3 (150-450); RED BLOOD COUNT 2.63 MIL/MM3 (4.50-5.90); RED CELL DISTRIBUTION WIDTH 14.8 % (11.6-17.2); WHITE BLOOD COUNT 17.8 TH/MM3 (4.0-11.0)
[2018-01-19 05:58] LABS: PROTHROMBIN TIME - PATIENT 40.1 SEC (9.8-11.6)
[2018-01-19 06:28] LABS: ALBUMIN 1.5 GM/DL (3.4-5.0); ALKALINE PHOSPHATASE 360 U/L (45-117); ALT (GPT) 22 U/L (12-78); AST (GOT) 52 U/L (15-37); BICARBONATE 24.6 MEQ/L (21.0-32.0); BLOOD UREA NITROGEN 69 MG/DL (7-18); CALCIUM 7.5 MG/DL (8.5-10.1); CHLORIDE 102 MEQ/L (98-107); CREATININE 3.24 MG/DL (0.60-1.30); GLOMERULAR FILTRATION RATE 20 ML/MIN (>89); GLUCOSE,RANDOM 140 MG/DL (74-106); SODIUM (NA) 138 MEQ/L (136-145); TOTAL BILIRUBIN ADULT 0.6 MG/DL (0.2-1.0); TOTAL PROTEIN 6.9 GM/DL (6.4-8.2)
[2018-01-19] MEDS: ASPIRIN 325 MG TAB PO SCH (07:46)
[2018-01-19] MEDS: FAMOTIDINE 20 MG/2 ML VIAL IV PUSH SCH (07:47)
[2018-01-19] MEDS: HYDROCORTISONE SOD SUCCINATE 100 MG VIAL IV PUSH SCH (07:47)
[2018-01-19] MEDS: SODIUM CHLORIDE 0.9% FLUSH 10 ML FLUSH IV FLUSH SCH ×2 (07:47→21:26)
[2018-01-19 08:19] LABS: TARGET CELLS 1+ (NORMAL)
[2018-01-19] MEDS ORDERED: INSULIN DETEMIR 100 UNITS/ML VIAL SQ SCH (09:05)
--- NOTE | 2018-01-19 09:12 | HHI.CCPN ---
Subjective Remarks/Hospital Course 57-year-old male presents from home with altered mental status. Patient has been altered and is oriented to person only. According to family, patient fell 2 days ago but we do not have any other information regarding this. Patient does have a history of chronic alcohol abuse but denies any alcohol today. 01/15: Late entry note patient seen a 7am. Patient lethargic but protecting airway. Patient is altered and oriented to self. Patient noted to be hyponatremic questionable if chronic. He continues on IV fluids NS 175 cc/hr. 01/16: Patient noted to be more lethargic today ABG performed severe metabolic acidosis noted IV fluids normal saline discontinued. She received 50 mEq of sodium bicarbonate IV push. Patient started on sodium bicarbonate infusion at 100 cc/hour. Antipsychotic medications Thorazine placed on hold all sedative type medications placed on hold. Patient was noted to have elevated creatinine nephrology consulted. Noted elevation in LFTs, hepatitis profile and liver ultrasound pending, likely shock liver secondary to hypotension due to septic shock. 01/17: The patient slightly more alert today, and combative. Continues on sodium bicarbonate infusion at 100 cc an hour with minimal improvement. INR noted to continue to be elevated GI has been consulted. Hepatitis panel is pending. Persistent leukocytosis WBC count elevation from 25-31 this a.m. thought to be possibly secondary to hydrocortisone. Initiated hydrocortisone weaning, expanded antibiotic coverage with Zosyn renally adjusted. Patient pancultured. patient received 1 dose of Lasix last evening with 1250 cc urine output in 12 hours. 01/18: Last evening Vas-Cath placed for initiation of dialysis. Creatinine increased this a.m. to 4.4 hemodialysis in progress. Patient's beta hydroxybutyrate was noted to be 4.24 last evening, insulin infusion initiated. Anion gap metabolic acidosis corrected. ABGs within normal limits. His a.m. patient alert, awake requesting something to drink. Formal swallow evaluation performed mechanical soft diet initiated. Patient was noted to have hepatitis C positive IgG, antibodies, continued workup underway. INR continues to be elevated at 3.1 this a.m.. Antibiotic coverage expanded yesterday with Zosyn WBC count downtrending. Patient hemodynamically stable hydrocortisone weaning initiated. Patient scheduled for MRI bilateral feet secondary to significant foot infection., Subjective: 01/19: Afebrile. Bradycardic. More awake and alert. MRI foot pending. Resuming thioridazine 200 mg daily and hydroxyzine 50 mg twice daily. Adding as needed morphine and lorazepam for pain/agitation Objective Vital Signs Date Time Temp Pulse Resp B/P (MAP) Pulse Ox O2 Delivery O2 Flow Rate FiO2 01/19/18 07:32 97 21 01/19/18 06:00 58 01/19/18 04:00 97.8 13 168/81 (110) 01/18/18 07:16 Nasal Cannula 3.00 Intake and Output 01/19/18 01/19/18 01/19/18 07:59 15:59 23:59 Intake Total 407.5 ml Output Total 1000 ml Balance -592.5 ml Result Diagram: 01/19/18 0450 01/19/18 0450 Other Results Microbiology Date/Time Source Procedure Growth Status 01/17/18 10:55 Blood Peripheral Aerobic Blood Culture - Preliminary NO GROWTH IN 1 DAY Resulted 01/17/18 10:55 Blood Peripheral Anaerobic Blood Culture - Preliminary NO GROWTH IN 1 DAY Resulted 01/17/18 13:15 Urine Catheterized Urine Urine Culture - Preliminary NO GROWTH IN 24 HOURS. Resulted 01/16/18 15:00 Wound Foot Gram Stain - Final Complete 01/16/18 15:00 Wound Culture - Final Group A Beta Strep Complete Imaging Last Impressions Chest X-Ray 01/18/18 0600 Signed Impressions: Service Date/Time: Thursday, January 18, 2018 02:58 - CONCLUSION: No significant change Sylvester Estrella MD Liver Ultrasound 01/16/18 0000 Signed Impressions: Service Date/Time: January 16:59 - CONCLUSION: 1. Hepatomegaly and diffuse increased hepatic echogenicity without intrahepatic ductal dilatation or focal mass. Findings are most consistent with hepatic steatosis or medical liver disease. 2. Trace ascites. 3. Cholelithiasis with gallbladder wall prominence and trace pericholecystic fluid. These findings may be seen in the setting of chronic liver disease or ascites and significantly limit ultrasound evaluation for acute cholecystitis. If there is significant clinical concern regarding acute cholecystitis, HIDA scan may be performed to evaluate for cystic duct patency. Nam Tinajero MD Head CT 01/14/182000 Signed Impressions: Service Date/Time: Sunday, January 14, 2018 20:22 - CONCLUSION: Normal examination for a patient of this age. Marcio Hansen MD Lower Extremity CT 01/14/18 Signed Impressions: Service Date/Time: Sunday, January 14, 2018 23:38 - CONCLUSION: 1. CT findings characteristic of a severe Charcot foot in the mid and hindfoot with collapse of the plantar arch. Osteoarthritic changes of the first MTP joint 2. However, findings all appear to be chronic with no acute osseous injury Marquis Mcdonald MD Abdomen/Pelvis CT 01/14/18 Signed Impressions: Service Date/Time: Sunday, January 14, 2018 23:35 - CONCLUSION: 1. CT findings suggest volume overload or low oncotic pressures with some flank and mesenteric edema, gallbladder wall thickening and some free fluid in the pelvis. Heart size is somewhat prominent. 2. Bilateral symmetric gynecomastia. Nonspecific findings but can be associated with some chronic disease processes or medications. 3. Left periaortic borderline prominent lymph nodes. Again, nonspecific but may be reactive associated with the aforementioned mesenteric edema. 4. 5.7 cm periumbilical fatty hernia. There is now some fluid along the periphery of the hernia. This could be related to the generalized edema described above although fatty infarction could have a similar radiographic presentation. Please correlate with clinical symptomatology Marquis Mcdonald MD Objective Remarks GENERAL: This 57-year-old male currently resting in bed on room air no acute distress SKIN: Focused skin assessment warm/dry. Chronic venous stasis bilateral lower extremities HEAD: Atraumatic. Normocephalic. EYES: Pupils equal and round about 2 mm bilaterally and reactive. Positive scleral icterus. No injection or drainage. ENT: No nasal bleeding or discharge. Mucous membranes pink and moist. NECK: Trachea midline. No JVD. CARDIOVASCULAR: Bradycardic, RRR. S1, S2. No S4. No murmur appreciated. RESPIRATORY: No accessory muscle use. Clear to auscultation. Breath sounds equal bilaterally. GASTROINTESTINAL: Abdomen soft, non-tender, nondistended. Hepatomegaly is appreciated MUSCULOSKELETAL: No obvious deformities. Charcot foot. Chronic appearing right foot plantar wound without discharge NEUROLOGICAL: Awake and alert to person. Not to place or time.. No obvious cranial nerve deficits. Motor strength 5/5, moving extremities 4 Urinary Catheter: No Assessment to: Continue Vascular Central Line Catheter: No Assessment to: Continue A/P Assessment and Plan Neuro/Psych: Metabolic encephalopathy secondary to sepsis -resolving Schizophrenia Posttraumatic stress disorder Iatrogenic encephalopathy resolving CT brain on admission revealed no acute intracranial findings. 01/16 Ammonia level 10 Neurology checks per ICU protocol 01/16 Hold antipsychotic meds (Thorazine) in the setting of lethargy. 01/19 - resume Thioridazine 200 mg daily with hydroxyzine 50 mg/twice daily home medications for schizophrenia 01/18 patient alert and oriented x 2 now with bouts of confusion Acetaminophen 650 mg p.o. every 4 hours as needed fever/pain 1 through 5 Morphine sulfate 1 mg IV every 4 hours as needed pain 6 or 10 Lorazepam 1 mg IV every 4 hours as needed agitation Ziprasidone 10 mg IM every 12 hours as needed breakthrough agitation. Start date 01/19 maximum 3 days At home on hydrocodone/acetaminophen 10/325 1 tablet twice daily as needed pain Respiratory: Obtain O2 saturation greater than 92% patient currently on room air Incentive spirometry while awake Albuterol/ipratropium aerosols every 2 hours as needed dyspnea hours as needed Follow-up chest x-ray in a.m. 01/20 Cardiovascular: Septic shock -resolved History of hypertension Norepinephrine discontinued 01/15 0500 Maintain MAP greater than 65 Hold all antihypertensive medications in the setting of septic shock Resume aspirin 81 mg daily At home on amlodipine 10 mg p.o. daily for hypertension As needed Nitropaste/hydralazine for hypertension breakthrough Renal/FEN: Nonoliguric BISHOP Hypokalemia Maintain almaraz-for accurate I's and O's in a critically ill patient 01/16 Lasix 40 mg IV 1 dose 01/17 vascular cath placement 01/18 IHD 2 L off. Nephrology following-IHD per their recommendations Avoid nephrotoxic drugs 20 mg KCl p.o. 1 now. Recheck in a.m. with magnesium FEN/GI: Hepatitis C antibody positive. Genotype and viral load pending Elevated LFTs- Shock Liver Hepatomegaly Cholelithiasis Monitor [facility] 01/16 ultrasound of the liver- Trace ascites. Findings most consistent with hepatic steatosis or liver disease. Cholelithiasis with gallbladder wall prominence but trace pericholecystic fluid Hepatitis C IgG antibody positive Follow-up formal swallow evaluation-ADA diet GI consulted appreciate recommendations Heme/ID: Normocytic anemia Persistent leukocytosis Severe sepsis Coagulopathy Hemoglobin 7.0 this a.m. ,repeat H&H- Hgb 10 INR trending up 2->3.1-> 4.0 heparin SQ discontinued 01/17 ID following-cefazolin 2 g IV every 12 hours 01/15 blood culture-group A beta 01/16-follow-up wound culture bilateral feet Vitamin K 5 mg p.o. 1 Recheck coags and fibrinogen in a.m. 01/20. Pertinent microbiology 01/14 -blood cultures 2 beta strep group A 5 and 01/16 -wound -beta strep group A 01/16-01/17 -blood cultures 2 -no growth 01/17 -UA -no growth Endocrine: Diabetes mellitus Insulin drip will be discontinued. Start insulin glargine 8 units daily with medium Novulog sliding scale insulin Accu-Cheks q. before meals/at bedtime and 300 - beta hydroxybutyrate 4.4 - 0.12 -01/17 Insulin infusion initiated Glipizide 10 mg p.o. twice daily home medication held MSK : Bilateral wound infection feet 01/16 Podiatry [id number] recommendations Rule out osteomyelitis PT evaluation and treat 01/16 Wound care following application per recommendations MRI B/L feet 01/19 ordered. Appreciate podiatry's put Prophylaxis: GI Prophylaxis Pantoprazole DVT Prophylaxis -- SCDs Teds and SCDs. Heparin SQ on hold in the setting of elevated INR Lines: Peripheral IVs 2. Central line if indicated Right IJ dialysis catheter Level 2 follow-up No family at bedside. Discussed with GLASS BEVELER at bedside Calderon Romo MD January 19, 2018 09:12
[2018-01-19] MEDS ORDERED: GLUCAGON 1 MG/ML VIAL OTHER PRN (09:15)
[2018-01-19] MEDS ORDERED: RESP: ALBUTEROL 2.5 MG/3 ML NEB (PRN) INH (09:15)
[2018-01-19] MEDS ORDERED: DEXTROSE 50% IN WATER 50 ML VIAL(D50) IV PUSH PRN (09:15)
[2018-01-19] MEDS ORDERED: BISACODYL 10 MG SUPP RECTAL PRN (09:15)
[2018-01-19] MEDS ORDERED: LACTULOSE SYRUP 20 GM/30 ML CUP PO PRN (09:15)
[2018-01-19] MEDS ORDERED: DC Insulin drip 2 hrs post basal insulin dose ONE (09:15)
[2018-01-19] MEDS ORDERED: ZIPRASIDONE MESYLATE 20 MG VIAL IM PRN (09:15)
[2018-01-19] MEDS ORDERED: DC previous DKA orders (HMC 1917) ONE (09:15)
[2018-01-19] MEDS ORDERED: GLYCERIN ADULT 2 GM SUPP RECTAL ONE (09:15)
[2018-01-19] MEDS ORDERED: ONDANSETRON HCL 4 MG/2 ML VIAL IV PUSH PRN (09:15)
[2018-01-19] MEDS ORDERED: POLYETHYLENE GLYCOL 17 GM PKG PO ONE (09:30)
[2018-01-19] MEDS ORDERED: POTASSIUM CHLORIDE 20 MEQ CONTROLLED RELEASE TAB PO ONE (09:30)
[2018-01-19] MEDS ORDERED: LACTULOSE SYRUP 20 GM/30 ML CUP PO ONE (09:30)
--- NOTE | 2018-01-19 09:39 | HHI.GIFU ---
Subjective Remarks Pt in bed, confused In soft wrist restraints (Skylar Sykes) Objective Vitals I&O Vital Signs Date Time Temp Pulse Resp B/P (MAP) Pulse Ox O2 Delivery O2 Flow Rate FiO2 01/19/18 07:32 97 21 01/19/18 06:00 58 01/19/18 04:00 97.8 55 13 168/81 (110) 95 01/19/18 04:00 55 01/19/18 03:30 58 22 96 01/19/18 03:00 56 14 166/76 (106) 96 01/19/18 02:30 57 20 97 01/19/18 02:00 57 01/19/18 02:00 57 16 179/79 (112) 97 01/19/18 01:30 56 19 97 01/19/18 01:03 57 21 177/81 (113) 96 01/19/18 01:00 57 22 97 01/19/18 00:00 98.0 55 18 184/79 (114) 97 01/19/18 00:00 55 01/18/18 23:00 55 16 177/81 (113) 97 01/18/18 22:31 55 17 177/80 (112) 96 01/18/18 22:30 55 16 96 01/18/18 22:00 54 01/18/18 22:00 54 14 182/77 (112) 96 01/18/18 21:30 53 13 164/72 (102) 95 01/18/18 21:25 54 12 173/80 (111) 97 01/18/18 21:00 61 27 96 01/18/18 20:59 95 01/18/18 20:30 57 21 181/80 (113) 96 01/18/18 20:00 97.5 54 17 164/77 (106) 95 01/18/18 20:00 54 01/18/18 19:30 56 144/69 (94) 95 01/18/18 19:00 57 148/68 (94) 97 01/18/18 18:00 63 01/18/18 16:00 97.8 60 164/72 (102) 100 01/18/18 16:00 60 01/18/18 14:00 53 01/18/18 12:00 97.4 54 18 149/69 (95) 01/18/18 12:00 54 01/18/18 10:00 48 I/O 01/18/18 01/18/18 01/18/18 01/19/18 01/19/18 01/19/18 07:00 15:00 23:00 07:00 15:00 23:00 Intake Total 1100 ml 345 ml 407.5 ml Output Total 400 ml 2000 ml 550 ml 1000 ml Balance 700 ml -2000 ml -205 ml -592.5 ml Intake Oral 0 ml 125 ml 240 ml IV Total 1100 ml 220 ml 167.5 ml Output Urine Total 400 ml 550 ml 1000 ml Stool Total 0 ml 0 ml 0 ml Hemodialysis 2000 ml Laboratory Laboratory Tests Test 01/18/18 10:05 01/18/18 10:30 01/19/18 04:50 Urine Ketones NEG Urine Eosinophils NONE SEEN Hemoglobin 9.1 7.8 Hematocrit 27.3 23.4 White Blood Count 17.8 Red Blood Count 2.63 Mean Corpuscular Volume 89.0 Mean Corpuscular Hemoglobin 29.7 Mean Corpuscular Hemoglobin Concent 33.3 Red Cell Distribution Width 14.8 Platelet Count 177 Mean Platelet Volume 10.3 Neutrophils (%) (Auto) 87.4 Lymphocytes (%) (Auto) 7.3 Monocytes (%) (Auto) 4.8 Eosinophils (%) (Auto) 0.3 Basophils (%) (Auto) 0.2 Neutrophils # (Auto) 15.5 Lymphocytes # (Auto) 1.3 Monocytes # (Auto) 0.9 Eosinophils # (Auto) 0.1 Basophils # (Auto) 0.0 CBC Comment AUTO DIFF Differential Comment AUTO DIFF CONFIRMED Platelet Estimate NORMAL Platelet Morphology Comment ENLARGED Target Cells 1+ Prothrombin Time 40.1 Prothromb Time International Ratio 4.0 Blood Urea Nitrogen 69 Creatinine 3.24 Random Glucose 140 Total Protein 6.9 Albumin 1.5 Calcium Level 7.5 Alkaline Phosphatase 360 Aspartate Amino Transf (AST/SGOT) 52 Alanine Aminotransferase (ALT/SGPT) 22 Total Bilirubin 0.6 Sodium Level 138 Potassium Level 3.0 Chloride Level 102 Carbon Dioxide Level 24.6 Anion Gap 11 Estimat Glomerular Filtration Rate 20 Date/Time Source Procedure Growth Status 01/17/18 10:55 Blood Peripheral Aerobic Blood Culture - Preliminary NO GROWTH IN 1 DAY Resulted 01/17/18 10:55 Blood Peripheral Anaerobic Blood Culture - Preliminary NO GROWTH IN 1 DAY Resulted 01/17/18 13:15 Urine Catheterized Urine Urine Culture - Preliminary NO GROWTH IN 24 HOURS. Resulted 01/16/18 15:00 Wound Foot Gram Stain - Final Complete 01/16/18 15:00 Wound Culture - Final Group A Beta Strep Complete Imaging Last Impressions Chest X-Ray 01/18/18 0600 Signed Impressions: Service Date/Time: Thursday, January 18, 2018 02:58 - CONCLUSION: No significant change Sylvester Estrella MD Liver Ultrasound 01/16/18 0000 Signed Impressions: Service Date/Time: January 16:59 - CONCLUSION: 1. Hepatomegaly and diffuse increased hepatic echogenicity without intrahepatic ductal dilatation or focal mass. Findings are most consistent with hepatic steatosis or medical liver disease. 2. Trace ascites. 3. Cholelithiasis with gallbladder wall prominence and trace pericholecystic fluid. These findings may be seen in the setting of chronic liver disease or ascites and significantly limit ultrasound evaluation for acute cholecystitis. If there is significant clinical concern regarding acute cholecystitis, HIDA scan may be performed to evaluate for cystic duct patency. Nam Tinajero MD Head CT 01/14/182000 Signed Impressions: Service Date/Time: Sunday, January 14, 2018 20:22 - CONCLUSION: Normal examination for a patient of this age. Marcio Hansen MD Lower Extremity CT 01/14/18 Signed Impressions: Service Date/Time: Sunday, January 14, 2018 23:38 - CONCLUSION: 1. CT findings characteristic of a severe Charcot foot in the mid and hindfoot with collapse of the plantar arch. Osteoarthritic changes of the first MTP joint 2. However, findings all appear to be chronic with no acute osseous injury Marquis Mcdonald MD Abdomen/Pelvis CT 01/14/18 Signed Impressions: Service Date/Time: Sunday, January 14, 2018 23:35 - CONCLUSION: 1. CT findings suggest volume overload or low oncotic pressures with some flank and mesenteric edema, gallbladder wall thickening and some free fluid in the pelvis. Heart size is somewhat prominent. 2. Bilateral symmetric gynecomastia. Nonspecific findings but can be associated with some chronic disease processes or medications. 3. Left periaortic borderline prominent lymph nodes. Again, nonspecific but may be reactive associated with the aforementioned mesenteric edema. 4. 5.7 cm periumbilical fatty hernia. There is now some fluid along the periphery of the hernia. This could be related to the generalized edema described above although fatty infarction could have a similar radiographic presentation. Please correlate with clinical symptomatology Marquis Mcdonald MD Physical Exam HEENT: Normocephalic; atraumatic CHEST: Even/unlabored CARDIAC: RRR ABDOMEN: Soft, nondistended, nontender; bowel sounds active MAILROOM ASSOCIATE: Awake, confused (Skylar Sykes RECOVERY MANAGER) Assessment and Plan Plan Assessment: - Elevated LFTs- previously worked up by our service for same in February 2017- Hepatitis panel done at that time was negative, noted to be likely secondary to medication. February 2017 labs: AST-617 ALT-311 Alk phos-618 T bili-0.8 Iron-15 TIBC-157 %sat-9.6 Ferritin-245 Currently: AST-107 ALT-85 Alk phos-386 T bili-1 Coagulopathy (INR 2.1) Hypoalbuminemia (albumin 1.2) Hepatitis panel revealed positive Hep C IgG antibody Unable to obtain social history including alcohol and illicit drugs. No visible tattoos on my exam. CT abdomen and pelvis W/O IV contrast (01/14) --> CT findings suggest volume overload or low oncotic pressures with some flank and mesenteric edema, gallbladder wall thickening and some free fluid in the pelvis. Heart size is somewhat prominent. Bilateral symmetric gynecomastia. Nonspecific findings but can be associated with some chronic disease processes or medications. Left periaortic borderline prominent lymph nodes. Again, nonspecific but may be reactive associated with the aforementioned mesenteric edema. 5.7 cm periumbilical fatty hernia. There is now some fluid along the periphery of the hernia. This could be related to the generalized edema described above although fatty infarction could have a similar radiographic presentation. Please correlate with clinical symptomatology US liver (01/16) --> Hepatomegaly and diffuse increased hepatic echogenicity without intrahepatic ductal dilatation or focal mass. Findings are most consistent with hepatic steatosis or medical liver disease. Trace ascites. Cholelithiasis with gallbladder wall prominence and trace pericholecystic fluid. These findings may be seen in the setting of chronic liver disease or ascites and significantly limit ultrasound evaluation for acute cholecystitis. If there is significant clinical concern regarding acute cholecystitis, HIDA scan may be performed to evaluate for cystic duct patency. - Anemia- previous work up by our service in February 2017 --> EGD and colonoscopy --> Esophagus was normal. Food residue in the entire examined stomach. Medium sized ulcer in the gastric antrum. Significant amount of stool was present throughout the entire examined colon. Retroflexion not performed. Incomplete exam due to poor prep. Barium enema revealed an extremely redundant colon. No definite mucosa abnormality was identified, but only partial visualization of the cecum. - Leukocytosis with elevated lactic acid on arrival and febrile- Infection to LLE- on Zosyn and Cefazolin - BISHOP on CKD Differentials for elevated LFTs: Hepatitis C vs shocked liver secondary to hypotension from sepsis (lowest BP documented on 01/14 was 85/53) vs hepatic congestion (01/18) Pt awake today and answering questions appropriately. Denies any GI symptoms at this time. He is now on hemodialysis. Drop in H/H ntoed overnight, normocytic, likely multifactorial- no obvious GIB LFTs with some improvement today, AST-64 ALT-52 Alk phos-319 T bili-0.6 (01/19) Pt resting in bed, confused during my exam, currently in soft wrist restraints. Drop in H/H noted from 9.1/27.3 yesterday to 7.8/23.4 today, likely multifactorial, no obvious GIB. Increase in INR currently 4. Increase in alk phos, LFTs continue to trend down. Liver work up still pending. Plan: Liver Work up pending Hepatitis C genotype and RNA quant Alk phos iso enzymes- chronically elevated sometimes isolated without elevation in LFTs Avoid hepatotoxins Monitor H/H Transfuse as needed Notify GI of any obvious GIB Further recommendations based on findings of above and clinical course Pt has been seen and examined by myself and Dr. Moody and this note is written on her behalf (Skylar Sykes) Skylar Sykes January 19, 2018 09:39 Shira Moody MD January 19, 2018 14:10
[2018-01-19] MEDS ORDERED: NITROGLYCERIN 2% OINT 1 GM PACKET TOPICAL PRN (09:45)
[2018-01-19] MEDS ORDERED: PHYTONADIONE 5 MG TAB PO ONE (09:45)
[2018-01-19] MEDS: INSULIN REGULAR (IV INFUSION) 100 UNITS in SODIUM CHLORIDE 0.9% INJ 99 ML IV PRN (09:51)
[2018-01-19] MEDS ORDERED: HEPARIN SODIUM - SQ 10,000 UNITS/ML VIAL SQ SCH (10:00)
[2018-01-19] MEDS ORDERED: INSULIN DETEMIR 100 UNITS/ML VIAL SQ ONE (10:00)
[2018-01-19] MEDS ORDERED: PHYTONADIONE 5 MG/SWFI 5 ML ORAL SYR PO ONE (10:15)
[2018-01-19] MEDS: hydrALAZINE HCL 20 MG/ML VIAL IV PUSH PRN ×3 (10:37→21:25)
--- NOTE | 2018-01-19 11:40 | HHI.IDPN ---
Note Infectious Disease Note ID Xcover for . Chart reviewed. is a 57 y/o CM with PMHX of Schizophrenia, DM with Charcot foot who was admitted with Altered Mental Status. In the emergency department, his blood pressure was 85/53. The white blood cell count was elevated at 27 and lactic acid level of 3.1. Patient underwent a sepsis workup. Blood cultures group A beta strep in 4 bottles. Wound culture from the foot has group A beta strep. Seen by podiatry undergoing MRI foot. Concern for osteomyelitis. Overnight events reviewed No fevers No rash No diarrhea Alert but not making sense. Psych meds on hold due to AMS on admission. PAST MEDICAL HISTORY: 1. Hypertension. 2. Anxiety/depression. 3. Hiatal hernia. 4. Schizophrenia. 5. Diabetes mellitus. 6. Charcot deformity of the feet. 7. A left pelvic fracture. 8. History of abscess of the right foot. ALLERGIES: VANCOMYCIN, LEVAQUIN, HALOPERIDOL, FLUPHENAZINE, CODEINE. Current Medications Medications (Trade) Dose Ordered Sig/Portia Route Start Time Stop Time Status Last Admin ([facility] [place] [facility]) 1 [id number] XX 01/14/18 22:45 (Chlorhexidine 2% Cloth) 3 pack Taper DAILY@04 TOP 01/15/18 04:00 01/11/19 03:59 01/19/18 02:50 (Chlorhexidine 2% Cloth) 3 pack UNSCH PRN TOP 01/14/18 22:45 (Tylenol) 650 mg Q4H PRN PO 01/15/18 01:00 (Aspirin) 325 mg DAILY PO 01/15/18 09:00 01/19/18 07:46 (Romazicon Inj) 0.2 mg Q1M PRN IV PUSH 01/16/18 01:00 (Ativan) 1 mg Q4H PRN PO 01/16/18 01:00 Future Hold (Ativan Inj) 1 mg Q4H PRN IV PUSH 01/16/18 01:00 Future Hold (Ativan) 2 mg Q2H PRN PO 01/16/18 01:00 Future Hold (Ativan Inj) 2 mg Q2H PRN IV PUSH 01/16/18 01:00 Future Hold 01/16/18 09:08 (Ativan Inj) 2 mg Q1H PRN IV PUSH 01/16/18 01:00 Future Hold (Ativan Inj) 2 mg Q15M PRN IV PUSH 01/16/18 01:00 Future Hold Cefazolin Sodium/ Dextrose 50 ml @ 100 mls/hr Q12H IV 01/16/18 15:00 01/19/18 02:50 Sodium Chloride 1,000 ml @ 0 mls/hr Q0M PRN OTHER 01/17/18 17:00 (Heparin Inj) 8,000 units UNSCH PRN IV FLUSH 01/17/18 17:00 Sodium Chloride 1,000 ml @ 200 mls/hr Q5H PRN IV 01/17/18 17:00 01/18/18 09:14 Sodium Chloride 1,000 ml @ 0 mls/hr Q0M PRN OTHER 01/17/18 17:00 (Mannitol Inj) 12.5 gm UNSCH PRN IV 01/17/18 17:00 Albumin Human 100 ml @ 60 mls/hr UNSCH PRN IV 01/17/18 17:00 (NS Flush) 5 ml UNSCH PRN IV FLUSH 01/17/18 17:00 (Heparin Inj) UNSCH PRN .XX 01/17/18 17:00 01/18/18 09:14 (Gentamicin Inj) 20 mg UNSCH PRN OTHER 01/17/18 17:00 01/18/18 09:13 (Zofran Inj) 4 mg UNSCH PRN IV PUSH 01/17/18 17:00 (Tylenol) 650 mg UNSCH PRN PO 01/17/18 17:00 (Benadryl) 25 mg UNSCH PRN PO 01/17/18 17:00 (Nitrostat Sl) 0.4 mg UNSCH PRN SL 01/17/18 17:00 (Catapres) 0.1 mg UNSCH PRN PO 01/17/18 17:00 (Gelfoam 12 Mm/7 Mm Top) 1 foam UNSCH PRN TOP 01/17/18 17:00 (SoluCORTEF INJ) 50 mg DAILY IV PUSH 01/19/18 09:00 01/21/18 08:59 01/19/18 07:47 (NovoLOG SUPPLEMENTAL SCALE) 1 ACHS SLIDING SCALE SQ 01/19/18 12:00 (D50w (Vial) Inj) 50 ml UNSCH PRN IV PUSH 01/19/18 09:15 (Glucagon Inj) 1 mg UNSCH PRN OTHER 01/19/18 09:15 (Bactroban Nasal 2% Oint) 1 applic Taper BID EACH NARE 01/19/18 21:00 01/15/19 20:59 (Vistaril) 50 mg BID PO 01/19/18 10:00 01/19/18 10:37 Patient Own Medication PT OWN MED: THIORIDAZINE DOSE 10... DAILY PO 01/20/18 09:00 Future Hold (Morphine Inj) 1 mg Q4H PRN IV PUSH 01/19/18 10:00 (Ativan Inj) 1 mg Q4H PRN IV PUSH 01/19/18 09:15 (Geodon Inj) 10 mg Q12H PRN IM 01/19/18 09:15 01/22/18 09:14 (NS Flush) 2 ml UNSCH PRN IV FLUSH 01/19/18 09:15 (NS Flush) 2 ml BID IV FLUSH 01/19/18 21:00 (Protonix) 40 mg DAILY PO 01/20/18 09:00 (Zofran Inj) 4 mg Q6H PRN IV PUSH 01/19/18 09:15 (Albuterol Neb) 2.5 mg Q2HR NEB PRN INH 01/19/18 09:15 (Lizz-Colace) 1 tab BID PO 01/19/18 21:00 (Dulcolax Supp) 10 mg DAILY PRN RECTAL 01/19/18 09:15 (Lactulose Liq) 30 ml DAILY PO 01/20/18 09:00 (Miralax) 17 gm DAILY PO 01/20/18 09:00 (Levemir Inj) 8 units DAILY SQ 01/20/18 09:00 (Apresoline Inj) 10 mg Q1H PRN IV PUSH 01/19/18 09:45 01/19/18 10:37 (Nitroglycerin 2% Oint) 2 inch Q6H PRN TOPICAL 01/19/18 09:45 SOCIAL HISTORY: Positive alcohol use reportedly daily. No tobacco. No illicit drugs. Objective: Vital Signs Date Time Temp Pulse Resp B/P (MAP) Pulse Ox O2 Delivery O2 Flow Rate FiO2 01/19/18 10:00 55 01/19/18 08:00 51 01/19/18 08:00 97.5 51 17 169/78 (108) 98 01/19/18 07:32 97 21 01/19/18 06:00 58 01/19/18 04:00 97.8 55 13 168/81 (110) 95 01/19/18 04:00 55 01/19/18 03:30 58 22 96 01/19/18 03:00 56 14 166/76 (106) 96 01/19/18 02:30 57 20 97 01/19/18 02:00 57 01/19/18 02:00 57 16 179/79 (112) 97 01/19/18 01:30 56 19 97 01/19/18 01:03 57 21 177/81 (113) 96 01/19/18 01:00 57 22 97 01/19/18 00:00 98.0 55 18 184/79 (114) 97 01/19/18 00:00 55 01/18/18 23:00 55 16 177/81 (113) 97 01/18/18 22:31 55 17 177/80 (112) 96 01/18/18 22:30 55 16 96 01/18/18 22:00 54 01/18/18 22:00 54 14 182/77 (112) 96 01/18/18 21:30 53 13 164/72 (102) 95 01/18/18 21:25 54 12 173/80 (111) 97 01/18/18 21:00 61 27 96 01/18/18 20:59 95 01/18/18 20:30 57 21 181/80 (113) 96 01/18/18 20:00 97.5 54 17 164/77 (106) 95 01/18/18 20:00 54 01/18/18 19:30 56 144/69 (94) 95 01/18/18 19:00 57 148/68 (94) 97 01/18/18 18:00 63 01/18/18 16:00 97.8 60 164/72 (102) 100 01/18/18 16:00 60 01/18/18 14:00 53 01/18/18 12:00 97.4 54 18 149/69 (95) 01/18/18 12:00 54 Laboratory Tests Test 01/17/18 12:26 01/17/18 22:50 01/18/18 04:08 01/18/18 10:30 Hemoglobin 9.8 GM/DL 8.9 GM/DL 8.8 GM/DL 9.1 GM/DL Hematocrit 30.7 % 27.2 % 26.5 % 27.3 % White Blood Count 24.7 TH/MM3 Red Blood Count 3.01 MIL/MM3 Mean Corpuscular Volume 88.1 FL Mean Corpuscular Hemoglobin 29.3 PG Mean Corpuscular Hemoglobin Concent 33.2 % Red Cell Distribution Width 15.0 % Platelet Count 215 TH/MM3 Mean Platelet Volume 10.2 FL Neutrophils (%) (Auto) 91.3 % Lymphocytes (%) (Auto) 5.1 % Monocytes (%) (Auto) 3.4 % Eosinophils (%) (Auto) 0.1 % Basophils (%) (Auto) 0.1 % Neutrophils # (Auto) 22.5 TH/MM3 Lymphocytes # (Auto) 1.3 TH/MM3 Monocytes # (Auto) 0.8 TH/MM3 Eosinophils # (Auto) 0.0 TH/MM3 Basophils # (Auto) 0.0 TH/MM3 CBC Comment AUTO DIFF Differential Total Cells Counted 100 Neutrophils % (Manual) 86 % Band Neutrophils % 3 % Lymphocytes % 7 % Monocytes % 2 % Neutrophils # (Manual) 22.5 TH/MM3 Metamyelocytes 1 % Myelocytes 1 % Nucleated Red Blood Cells 1 /100 WBC Differential Comment FINAL DIFF MANUAL Toxic Granulation 1+ Platelet Estimate NORMAL Platelet Morphology Comment NORMAL Test 01/19/18 04:50 White Blood Count 17.8 TH/MM3 Red Blood Count 2.63 MIL/MM3 Hemoglobin 7.8 GM/DL Hematocrit 23.4 % Mean Corpuscular Volume 89.0 FL Mean Corpuscular Hemoglobin 29.7 PG Mean Corpuscular Hemoglobin Concent 33.3 % Red Cell Distribution Width 14.8 % Platelet Count 177 TH/MM3 Mean Platelet Volume 10.3 FL Neutrophils (%) (Auto) 87.4 % Lymphocytes (%) (Auto) 7.3 % Monocytes (%) (Auto) 4.8 % Eosinophils (%) (Auto) 0.3 % Basophils (%) (Auto) 0.2 % Neutrophils # (Auto) 15.5 TH/MM3 Lymphocytes # (Auto) 1.3 TH/MM3 Monocytes # (Auto) 0.9 TH/MM3 Eosinophils # (Auto) 0.1 TH/MM3 Basophils # (Auto) 0.0 TH/MM3 CBC Comment AUTO DIFF Differential Comment AUTO DIFF CONFIRMED Platelet Estimate NORMAL Platelet Morphology Comment ENLARGED Target Cells 1+ Laboratory Tests Test 01/17/18 12:26 01/17/18 18:16 01/17/18 22:50 01/18/18 04:08 Lactic Acid Level 1.5 mmol/L 1.6 mmol/L 1.5 mmol/L Serum Osmolality 325 MOSM/KG Blood Urea Nitrogen 97 MG/DL Creatinine 4.42 MG/DL Random Glucose 255 MG/DL Total Protein 6.4 GM/DL Albumin 1.3 GM/DL Calcium Level 7.2 MG/DL Phosphorus Level 4.5 MG/DL Magnesium Level 2.2 MG/DL Alkaline Phosphatase 319 U/L Aspartate Amino Transf (AST/SGOT) 64 U/L Alanine Aminotransferase (ALT/SGPT) 52 U/L Total Bilirubin 0.6 MG/DL Sodium Level 136 MEQ/L Potassium Level 3.7 MEQ/L Chloride Level 101 MEQ/L Carbon Dioxide Level 22.0 MEQ/L Anion Gap 13 MEQ/L Estimat Glomerular Filtration Rate 14 ML/MIN Protein Corrected Calcium 7.6 MG/DL Test 01/19/18 04:50 Blood Urea Nitrogen 69 MG/DL Creatinine 3.24 MG/DL Random Glucose 140 MG/DL Total Protein 6.9 GM/DL Albumin 1.5 GM/DL Calcium Level 7.5 MG/DL Alkaline Phosphatase 360 U/L Aspartate Amino Transf (AST/SGOT) 52 U/L Alanine Aminotransferase (ALT/SGPT) 22 U/L Total Bilirubin 0.6 MG/DL Sodium Level 138 MEQ/L Potassium Level 3.0 MEQ/L Chloride Level 102 MEQ/L Carbon Dioxide Level 24.6 MEQ/L Anion Gap 11 MEQ/L Estimat Glomerular Filtration Rate 20 ML/MIN Microbiology Date/Time Source Procedure Growth Status 01/17/18 10:55 Blood Peripheral Aerobic Blood Culture - Preliminary NO GROWTH IN 2 DAYS Resulted 01/17/18 10:55 Blood Peripheral Anaerobic Blood Culture - Preliminary NO GROWTH IN 2 DAYS Resulted 01/17/18 13:15 Urine Catheterized Urine Urine Culture - Final NO GROWTH IN 48 HOURS. Complete 01/16/18 15:00 Wound Foot Gram Stain - Final Complete 01/16/18 15:00 Wound Culture - Final Group A Beta Strep Complete Date/Time Source Procedure Growth Status 01/17/18 10:55 Blood Peripheral Aerobic Blood Culture - Preliminary NO GROWTH IN 2 DAYS Resulted 01/17/18 10:55 Blood Peripheral Anaerobic Blood Culture - Preliminary NO GROWTH IN 2 DAYS Resulted 01/17/18 10:39 Blood Peripheral Aerobic Blood Culture - Preliminary NO GROWTH IN 2 DAYS Resulted 01/17/18 10:39 Blood Peripheral Anaerobic Blood Culture - Preliminary NO GROWTH IN 2 DAYS Resulted 01/16/18 17:58 Blood Peripheral Aerobic Blood Culture - Preliminary NO GROWTH IN 3 DAYS Resulted 01/16/18 17:58 Blood Peripheral Anaerobic Blood Culture - Preliminary NO GROWTH IN 3 DAYS Resulted 01/16/18 17:53 Blood Peripheral Aerobic Blood Culture - Preliminary NO GROWTH IN 3 DAYS Resulted 01/16/18 17:53 Blood Peripheral Anaerobic Blood Culture - Preliminary NO GROWTH IN 3 DAYS Resulted 01/17/18 13:15 Urine Catheterized Urine Urine Culture - Final NO GROWTH IN 48 HOURS. Complete 01/16/18 15:00 Wound Foot Gram Stain - Final Complete 01/16/18 15:00 Wound Culture - Final Group A Beta Strep Complete Microbiology Date/Time Source Procedure Growth Status 01/17/18 10:55 Blood Peripheral Aerobic Blood Culture Pending Received 01/17/18 10:55 Blood Peripheral Anaerobic Blood Culture Pending Received 01/17/18 10:39 Blood Peripheral Aerobic Blood Culture Pending Received 01/17/18 10:39 Blood Peripheral Anaerobic Blood Culture Pending Received 01/16/18 17:58 Blood Peripheral Aerobic Blood Culture - Preliminary NO GROWTH IN 1 DAY Resulted 01/16/18 17:58 Blood Peripheral Anaerobic Blood Culture - Preliminary NO GROWTH IN 1 DAY Resulted 01/16/18 17:53 Blood Peripheral Aerobic Blood Culture - Preliminary NO GROWTH IN 1 DAY Resulted 01/16/18 17:53 Blood Peripheral Anaerobic Blood Culture - Preliminary NO GROWTH IN 1 DAY Resulted 01/14/18 20:14 Blood Peripheral Aerobic Blood Culture - Final Group A Beta Strep Complete 01/14/18 20:14 Anaerobic Blood Culture - Final Group A Beta Strep Complete 01/14/18 20:09 Blood Peripheral Aerobic Blood Culture - Final Group A Beta Strep Complete 01/14/18 20:09 Anaerobic Blood Culture - Final Group A Beta Strep Complete 01/16/18 15:00 Wound Foot Gram Stain - Final Resulted 01/16/18 15:00 Wound Foot Wound Culture Pending Resulted 01/15/18 22:15 Wound Foot Gram Stain - Final Complete 01/15/18 22:15 Wound Culture - Final Group A Beta Strep Complete Imaging: Head CT 01/14/182000 Signed Impressions: Service Date/Time: Sunday, January 14, 2018 20:22 - CONCLUSION: Normal examination for a patient of this age. Marcio Hansen MD Chest X-Ray 01/14/182000 Signed Impressions: Service Date/Time: Sunday, January 14, 2018 20:25 - CONCLUSION: 1. Mild cardiomegaly. No focal consolidation or effusion. Marcio Hansen MD Lower Extremity CT 01/14/18 Signed Impressions: Service Date/Time: Sunday, January 14, 2018 23:38 - CONCLUSION: 1. CT findings characteristic of a severe Charcot foot in the mid and hindfoot with collapse of the plantar arch. Osteoarthritic changes of the first MTP joint 2. However, findings all appear to be chronic with no acute osseous injury Marquis Mcdonald MD Abdomen/Pelvis CT 01/14/18 Signed Impressions: Service Date/Time: Sunday, January 14, 2018 23:35 - CONCLUSION: 1. CT findings suggest volume overload or low oncotic pressures with some flank and mesenteric edema, gallbladder wall thickening and some free fluid in the pelvis. Heart size is somewhat prominent. 2. Bilateral symmetric gynecomastia. Nonspecific findings but can be associated with some chronic disease processes or medications. 3. Left periaortic borderline prominent lymph nodes. Again, nonspecific but may be reactive associated with the aforementioned mesenteric edema. 4. 5.7 cm periumbilical fatty hernia. There is now some fluid along the periphery of the hernia. This could be related to the generalized edema described above although fatty infarction could have a similar radiographic presentation. Please correlate with clinical symptomatology Marquis Mcdonald MD PHYSICAL EXAMINATION: GENERAL: Alert, Non oriented. Speech ok. Cooperative. HEENT: The head is atraumatic. Pupils constricted, but reactive to light. The sclerae is pale. Oropharynx, dry mucosa. No lesions. No thrush. NECK: Supple without adenopathy or swelling. LUNGS: Breath sounds decreased. HEART: Distant S1 and S2. No murmurs, rubs or gallops. ABDOMEN: Bowel sounds present, soft, mildly distended, protruding umbilical abdominal hernia. EXTREMITIES: No clubbing. No cyanosis. Charcot deformity of both feet at the plantar aspect with bulging deformity. 1+ edema of the legs. Bilateral ulcerations on feet noted. SKIN: No diffuse rash. NEUROLOGIC: Alert, not oriented. Non focal exam. PSYCHIATRIC: Cooperative. IV line sites with no e.o infection IMPRESSION: 1. Severe sepsis. 2. Bacteremia due to group A beta strep. 3. Leukocytosis secondary to sepsis. 4. Source of sepsis - diabetic foot infection due to group A strep. 5. Possible underling osteomyelitis. 6. Acute renal failure: prerenal, sepsis. RECOMMENDATIONS: 1. Continue Cefazolin. 2. Monitor the repeat blood cultures. 3. Monitor white blood cell count. 4. Follow clinical status and temperature. 5. Follow MRI foot results. Appreciate podiatry input. Discussed with RN. to resume care in am. Kathryn Quintana MD January 19, 2018 11:40
[2018-01-19] MEDS: INSULIN ASPART SUPPLEMENTAL SCALE SQ SCH ×3 (11:59→21:00)
[2018-01-19] MEDS ORDERED: INSULIN ASPART SUPPLEMENTAL SCALE SQ SCH ×3 (12:00)
[2018-01-19] MEDS: LORazepam 2 MG/ML VIAL IV PUSH PRN (12:09)
--- NOTE | 2018-01-19 12:10 | HHI.NPPN ---
Subjective Renal Failure: Acute Review of Systems General Constitutional: Fatigue Objective Data Data Vital Signs Date Time Temp Pulse Resp B/P (MAP) Pulse Ox O2 Delivery O2 Flow Rate FiO2 01/19/18 10:00 55 01/19/18 08:00 51 01/19/18 08:00 97.5 51 17 169/78 (108) 98 01/19/18 07:32 97 21 01/19/18 06:00 58 01/19/18 04:00 97.8 55 13 168/81 (110) 95 01/19/18 04:00 55 01/19/18 03:30 58 22 96 01/19/18 03:00 56 14 166/76 (106) 96 01/19/18 02:30 57 20 97 01/19/18 02:00 57 01/19/18 02:00 57 16 179/79 (112) 97 01/19/18 01:30 56 19 97 01/19/18 01:03 57 21 177/81 (113) 96 01/19/18 01:00 57 22 97 01/19/18 00:00 98.0 55 18 184/79 (114) 97 01/19/18 00:00 55 01/18/18 23:00 55 16 177/81 (113) 97 01/18/18 22:31 55 17 177/80 (112) 96 01/18/18 22:30 55 16 96 01/18/18 22:00 54 01/18/18 22:00 54 14 182/77 (112) 96 01/18/18 21:30 53 13 164/72 (102) 95 01/18/18 21:25 54 12 173/80 (111) 97 01/18/18 21:00 61 27 96 01/18/18 20:59 95 01/18/18 20:30 57 21 181/80 (113) 96 01/18/18 20:00 97.5 54 17 164/77 (106) 95 01/18/18 20:00 54 01/18/18 19:30 56 144/69 (94) 95 01/18/18 19:00 57 148/68 (94) 97 01/18/18 18:00 63 01/18/18 16:00 97.8 60 164/72 (102) 100 01/18/18 16:00 60 01/18/18 14:00 53 -: 01/19/18 0450 01/19/18 0450 Physical Exam General Appearance: Comfortable, Anxious Ears & Nose Ears & Nose Exam: Tympanic Membranes Normal Pulmonary Resp Exam: Breath Sounds Equal, No Distress Cardiology CV Exam: Normal Sinus Rhythm, Good Perfusion Gastrointestinal/Abdomen GI Exam: Soft, Non-Tender, Bowel Sounds Present Musculoskeletal MS Exam: Joints Intact, Normal Tone, Unable to Ambulate Integumentary Skin Exam: Warm, Dry Neurologic Neuro Exam: Moving All Extremities, Obtunded Assessment/Plan Discussed Condition With: Patient Assessment Summary: BISHOP/Acute Renal Failure Problem List: (1) Acute worsening of stage 3 chronic kidney disease ICD Codes: N18.3 - Chronic kidney disease, stage 3 (moderate) Plan: Exact baseline is not known. Last year Creatinine was 1.7. BISHOP likely due to ATN from sepsis. Renal function is worse today. He is non oliguric via almaraz. off bicarb drip on HD 2 L removed yesterday K low KCL given Avoid nephrotoxic agents. Maintain MAP of more than 65. Prognosis is poor. Dr. Mcmahon to follow (2) Sepsis ICD Codes: A41.9 - Sepsis, unspecified organism Status: Resolved Plan: ID following. On Cefazolin, Source is likely infected leg wounds. 4/4 blood cultures positive, wound culture also positive for Group B strep (3) Hyponatremia ICD Codes: E87.1 - Hypo-osmolality and hyponatremia Status: Acute Plan: Documented hx of psychogenic polydipsia. However given ETOH abuse, need to consider beer potomania. Na level stable. PO fluid restriction. (4) Anemia ICD Codes: D64.9 - Anemia, unspecified Status: Chronic Plan: Hb improved. Monitor for bleeding. Problem Qualifiers (1) Sepsis: Qualified Codes: A41.9 - Sepsis, unspecified organism Harry Vazquez MD January 19, 2018 12:10
--- NOTE | 2018-01-19 12:29 | RADRPT ---
EXAM DATE/TIME: 01/19/2018 10:57 [facility] COMPARISON: ABDOMEN KUB ONLY, August 27, 2016, 11:15. INDICATIONS : Abdominal distention and discomfort. MEDICAL HISTORY : Hypertension. Diabetes. SURGICAL HISTORY : None. ENCOUNTER: Subsequent ACUITY: 4 - 6 days PAIN SCORE: 2/10 LOCATION: Abdomen. FINDINGS: 2 supine AP views of the abdomen. Scattered gas and stool in the colon. Stomach is gas-filled and mil dly distended. This gastric distention is much less prominent than on the comparison radiographs of 1 10/28/2015. Degenerative findings of the lumbar spine. Arterial calcifications in the pelvis. CONCLUSION: Nonspecific bowel gas pattern. Mildly distended air-filled stomach. Ganga Luna MD on January 19, 2018 at 12:25 Board Certified Radiologist. This report was verified electronically.
--- NOTE | 2018-01-19 13:39 | RADRPT ---
EXAM DATE/TIME: 01/19/2018 12:36 [facility] COMPARISON: MRI FOOT LEFT W & W/O CONTRAST, August 21, 2016, 18:49. INDICATIONS : Abscess. MEDICAL HISTORY : Hypertension. Diabetes mellitus type 2. Renal failure, chronic. SURGICAL HISTORY : Several feet I and D. ENCOUNTER: Initial ACUITY: 1 day PAIN SCORE: 0/10 LOCATION: Bilateral feet TECHNIQUE: Multiplanar, multisequence MRI examination was performed without contrast. FINDINGS: BONE/CARTILAGE: Severe arthritic findings of the subtalar joint, talonavicular joint,, naviculocuneiform joints, calc aneocuboid joint, and fourth and fifth tarsometatarsal joints again seen. There is dorsal dislocation of the navicular relative to the talus again seen along with severe surrounding reactive bony change . All of these findings likely represent neuropathic osteoarthropathy/Charcot arthropathy TENDONS: All of the visualized tendons are intact. MISCELLANEOUS: Prominent plantar soft tissue abnormality of the midfoot and hindfoot again seen with marked superfic ial soft tissue edema extending into the plantar musculature deep to the plantar neurosis. There is a defect in the plantar aponeurosis centrally. A cutaneous ulceration or defect is seen with fluid sig nal immediately deep to the defect measuring 2.9 cm the medial collateral dimension. The fluid signal appears to be dictated with the cutaneous surface. Possibly loculated elongated areas of fluid are s een in the deeper soft tissues in the area of the plantar aponeurosis defect. Fluid signal extends to the plantar surface of the cuboid at. No confluent T1 weighted bone marrow signal abnormality in thi s region or bone erosion to confirm osteomyelitis.. CONCLUSION: 1. Plantar cutaneous defect with underlying septated fluid signal extending into the area of plantar aponeurosis defect. This finding is much more prominent than on the comparison MRI and suggests soft tissue infection in the proper clinical setting. Defined rounded collection is not seen. The abnormal fluid signal extends to the plantar surface of the cuboid but no definitive evidence of osteomyeliti s is seen. 2. Extensive arthritic findings and bony destructive findings in the midfoot and hindfoot similar to prior study of 2016 indicating severe neuropathic osteoarthropathy. Ganga Luna MD on January 19, 2018 at 13:27 Board Certified Radiologist. This report was verified electronically.
--- NOTE | 2018-01-19 13:51 | RADRPT ---
EXAM DATE/TIME: 01/19/2018 12:36 [facility] COMPARISON: MRI FOOT RIGHT W & W/O CONTRAST, August 21, 2016, 18:49. CT FOOT RIGHT W/O CONTRAST, January 14, 2018, 23:38. INDICATIONS : Abscess. MEDICAL HISTORY : Hypertension. Diabetes mellitus type 2. Renal failure, chronic. SURGICAL HISTORY : Several feet I and D ENCOUNTER: Initial ACUITY: 1 day PAIN SCORE: 0/10 LOCATION: Bilateral heels TECHNIQUE: Multiplanar, multisequence MRI examination was performed without contrast. FINDINGS: Arthritic findings of the midfoot and hindfoot again seen with most severe findings at the shabbir avicular and navicular cuneiform joints. 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 All th rodrigue findings are very similar to the prior study of 08/21/2016. There is again posterior soft tissue e manpreet in the posterior edema at the posterior process of the calcaneus. As seen on the T2-weighted sonia ges. No discrete bone erosion and no confluent signal abnormality on the T1-weighted images. Plantar cutaneous defect is again identified in the midfoot adjacent to the plantar aspect of the cuboid. Heather ngated fluid signal extends in the subcutaneous plantar soft tissues and deeper plantar musculature t hrough defect in the plantar neurosis. Elongated ovoid fluid collection measuring 2.8 x 0.8 cm is see n superficial to the plantar neurosis in the midfoot. This is just distal and medial to the cutaneous ulceration. There is also edema extending more laterally in the plantar soft tissues to the plantar surface of the fifth metatarsal base. Focal bony edema is seen in this region along with mild bony si gnal normality on the precontrast T1-weighted images. CONCLUSION: 1. 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 These findings are very simila r to the prior study 2016. 2. Plantar cutaneous defect and extensive midfoot plantar superficial soft tissue edema extending int o the plantar musculature. These findings are suspicious for infection in the proper clinical setting . Elongated adjacent more medial and distal plantar soft tissue ovoid fluid collection may represent a pseudo-bursa or abscess. More ill-defined edema is seen extending laterally to the base of the fift h metatarsal with likely early osteomyelitis at this location. This lateral extension is a new findin g when compared to the prior study of 2016. 3. Posterior superficial soft tissue edema the heel with mild adjacent bony edema is very similar to the prior study with no definitive osteomyelitis. Ganga Luna MD on January 19, 2018 at 13:39 Board Certified Radiologist. This report was verified electronically.
[2018-01-19] MEDS: DOCUSATE SODIUM 50 MG/SENNA 8.6 MG TAB PO SCH (21:00)
[2018-01-19] MEDS: MUPIROCIN 2% OINT 1 APPLIC/GM SYR EACH NARE SCH (21:26)
[2018-01-20] VITALS (32 sets, daily range): BP systolic 121–186; BP diastolic 58–99; PULSE 51–62; RESP 9–36; TEMP 97.2–98.4; O2SAT 95–99
[2018-01-20] MEDS: LORazepam 2 MG/ML VIAL IV PUSH PRN (01:04)
[2018-01-20] MEDS: ceFAZolin 2 GM PREMIX 50 ML IV SCH ×2 (03:33→14:21)
[2018-01-20] MEDS: CHLORHEXIDINE GLUCONATE 2 % 1 PACK (2 CLOTHS) TOP SCH (03:33)
--- NOTE | 2018-01-20 05:08 | RADRPT ---
EXAM DATE/TIME: 01/20/2018 04:15 [facility] COMPARISON: CHEST SINGLE AP, January 18, 2018, 2:58. INDICATIONS : Shortness of breath, possible pulmonary disease. MEDICAL HISTORY : Hypertension. Diabetes mellitus type II. SURGICAL HISTORY : None. ENCOUNTER: Subsequent ACUITY: 1 week PAIN SCORE: Non-responsive. LOCATION: Bilateral chest FINDINGS: A single view of the chest demonstrates the right IJ Vas-Cath in good position. The cardiac silhouett e remains enlarged. There is bilateral persistent perihilar vascular congestion.. Osseous structures are intact. CONCLUSION: Right IJ Vas-Cath in good position. Heart is enlarged. Duncan Zaldivar MD on January 20, 2018 at 5:06 Board Certified Radiologist. This report was verified electronically.
[2018-01-20] MEDS: hydrALAZINE HCL 20 MG/ML VIAL IV PUSH PRN ×2 (05:11→21:35)
[2018-01-20 05:49] LABS: BASOPHIL # 0.1 TH/MM3 (0-0.2); BASOPHIL % 0.6 % (0.0-2.0); EOSINOPHIL # 0.1 TH/MM3 (0-0.4); EOSINOPHIL % 0.7 % (0.0-4.0); HEMATOCRIT 23.7 % (39.0-51.0); HEMOGLOBIN 7.9 GM/DL (13.0-17.0); LYMPH % 7.9 % (9.0-44.0); LYMPHOCYTE # 1.4 TH/MM3 (1.0-4.8); MEAN CELL VOLUME 88.7 FL (80.0-100.0); MEAN CORPUSCULAR HEMOGLOBIN 29.6 PG (27.0-34.0); MEAN CORPUSCULAR HGB CONC 33.3 % (32.0-36.0); MEAN PLATELET VOLUME 9.6 FL (7.0-11.0); MONO % 2.2 % (0.0-8.0); MONOCYTE # 0.4 TH/MM3 (0-0.9); NEUT % 88.6 % (16.0-70.0); PLATELET COUNT 199 TH/MM3 (150-450); RED BLOOD COUNT 2.67 MIL/MM3 (4.50-5.90); RED CELL DISTRIBUTION WIDTH 14.9 % (11.6-17.2)
[2018-01-20 05:59] LABS: INTERNATIONAL NORMALIZED RATIO 1.7 RATIO; PROTHROMBIN TIME - PATIENT 17.4 SEC (9.8-11.6)
[2018-01-20 06:20] LABS: ALBUMIN 1.5 GM/DL (3.4-5.0); ALKALINE PHOSPHATASE 362 U/L (45-117); ALT (GPT) 9 U/L (12-78); AST (GOT) 38 U/L (15-37); BICARBONATE 27.3 MEQ/L (21.0-32.0); BLOOD UREA NITROGEN 63 MG/DL (7-18); CALCIUM 7.6 MG/DL (8.5-10.1); CHLORIDE 107 MEQ/L (98-107); CREATININE 2.91 MG/DL (0.60-1.30); GLOMERULAR FILTRATION RATE 23 ML/MIN (>89); GLUCOSE,RANDOM 116 MG/DL (74-106); MAGNESIUM 2.2 MG/DL (1.5-2.5); PHOSPHORUS 3.4 MG/DL (2.5-4.9); SODIUM (NA) 142 MEQ/L (136-145); TOTAL BILIRUBIN ADULT 0.6 MG/DL (0.2-1.0)
[2018-01-20] MEDS: INSULIN ASPART SUPPLEMENTAL SCALE SQ SCH ×4 (08:00→20:30)
[2018-01-20 08:18] LABS: BANDS 9 % (0-6); LYMPHOCYTES 4 % (9-44); METAMYELOCYTES 2 % (0-1); MONOCYTES 6 % (0-8); MYELOCYTES 1 % (0-0); POLYS (SEG NEUTROPHILS) 77 % (16-70)
[2018-01-20 08:20] LABS: TOXIC GRANULATION 2+ (NORMAL)
[2018-01-20] MEDS: INSULIN DETEMIR 100 UNITS/ML VIAL SQ SCH (09:28)
[2018-01-20] MEDS: MUPIROCIN 2% OINT 1 APPLIC/GM SYR EACH NARE SCH ×2 (09:29→20:30)
[2018-01-20] MEDS: LACTULOSE SYRUP 20 GM/30 ML CUP PO SCH (09:29)
[2018-01-20] MEDS: POLYETHYLENE GLYCOL 17 GM PKG PO SCH (09:29)
[2018-01-20] MEDS: DOCUSATE SODIUM 50 MG/SENNA 8.6 MG TAB PO SCH ×2 (09:29→20:30)
[2018-01-20] MEDS: PANTOPRAZOLE SOD 40 MG DELAYED RELEASE TAB PO SCH (09:30)
[2018-01-20] MEDS: ASPIRIN 325 MG TAB PO SCH (09:30)
[2018-01-20] MEDS: SODIUM CHLORIDE 0.9% FLUSH 10 ML FLUSH IV FLUSH SCH ×2 (09:30→20:30)
[2018-01-20] MEDS: HYDROCORTISONE SOD SUCCINATE 100 MG VIAL IV PUSH SCH (09:30)
--- NOTE | 2018-01-20 10:42 | HHI.GIFU ---
Subjective Remarks Pt resting in bed, getting HD. Offers no complaints. Lethargic. (Paradise Price) Objective Vitals I&O Vital Signs Date Time Temp Pulse Resp B/P (MAP) Pulse Ox O2 Delivery O2 Flow Rate FiO2 01/20/18 08:29 95 01/20/18 08:00 59 01/20/18 08:00 98.2 59 22 165/74 (104) 95 01/20/18 08:00 98.4 01/20/18 06:00 58 01/20/18 04:00 51 01/20/18 04:00 98.0 51 20 172/99 (123) 95 01/20/18 02:00 56 01/20/18 00:00 98.0 61 36 131/63 (85) 97 01/20/18 00:00 61 01/19/18 22:00 61 01/19/18 20:00 97.6 61 30 154/94 (114) 100 01/19/18 20:00 61 01/19/18 18:00 57 01/19/18 16:00 57 01/19/18 16:00 97.6 57 18 192/84 (120) 100 01/19/18 14:00 55 01/19/18 12:00 58 01/19/18 12:00 97.7 58 15 177/83 (114) 97 I/O 01/19/18 01/19/18 01/19/18 01/20/18 01/20/18 01/20/18 07:00 15:00 23:00 07:00 15:00 23:00 Intake Total 407.5 ml 550 ml 150 ml Output Total 1000 ml 1205 ml 1000 ml Balance -592.5 ml -655 ml -850 ml Intake Oral 240 ml 450 ml 100 ml IV Total 167.5 ml 100 ml 50 ml Output Urine Total 1000 ml 1200 ml 1000 ml Stool Total 0 ml 5 ml # Bowel Movements 5 Laboratory Laboratory Tests Test 01/20/18 04:32 White Blood Count 18.0 Red Blood Count 2.67 Hemoglobin 7.9 Hematocrit 23.7 Mean Corpuscular Volume 88.7 Mean Corpuscular Hemoglobin 29.6 Mean Corpuscular Hemoglobin Concent 33.3 Red Cell Distribution Width 14.9 Platelet Count 199 Mean Platelet Volume 9.6 Neutrophils (%) (Auto) 88.6 Lymphocytes (%) (Auto) 7.9 Monocytes (%) (Auto) 2.2 Eosinophils (%) (Auto) 0.7 Basophils (%) (Auto) 0.6 Neutrophils # (Auto) 16.0 Lymphocytes # (Auto) 1.4 Monocytes # (Auto) 0.4 Eosinophils # (Auto) 0.1 Basophils # (Auto) 0.1 CBC Comment AUTO DIFF Differential Total Cells Counted 100 Neutrophils % (Manual) 77 Band Neutrophils % 9 Lymphocytes % 4 Monocytes % 6 Eosinophils % 1 Neutrophils # (Manual) 16.0 Metamyelocytes 2 Myelocytes 1 Differential Comment FINAL DIFF MANUAL Toxic Granulation 2+ Platelet Estimate NORMAL Platelet Morphology Comment ENLARGED Prothrombin Time 17.4 Prothromb Time International Ratio 1.7 Activated Partial Thromboplast Time 37.1 Fibrinogen 311 Blood Urea Nitrogen 63 Creatinine 2.91 Random Glucose 116 Total Protein 7.0 Albumin 1.5 Calcium Level 7.6 Phosphorus Level 3.4 Magnesium Level 2.2 Alkaline Phosphatase 362 Aspartate Amino Transf (AST/SGOT) 38 Alanine Aminotransferase (ALT/SGPT) 9 Lactate Dehydrogenase 213 Total Bilirubin 0.6 Sodium Level 142 Potassium Level 3.1 Chloride Level 107 Carbon Dioxide Level 27.3 Anion Gap 8 Estimat Glomerular Filtration Rate 23 Date/Time Source Procedure Growth Status 01/17/18 10:55 Blood Peripheral Aerobic Blood Culture - Preliminary NO GROWTH IN 2 DAYS Resulted 01/17/18 10:55 Blood Peripheral Anaerobic Blood Culture - Preliminary NO GROWTH IN 2 DAYS Resulted 01/17/18 13:15 Urine Catheterized Urine Urine Culture - Final NO GROWTH IN 48 HOURS. Complete 01/16/18 15:00 Wound Foot Gram Stain - Final Complete 01/16/18 15:00 Wound Culture - Final Group A Beta Strep Complete Imaging Last Impressions Chest X-Ray 01/20/18 0600 Signed Impressions: Service Date/Time: Saturday, January 20, 2018 04:15 - CONCLUSION: Right IJ Vas-Cath in good position. Heart is enlarged. Duncan Zaldivar MD Foot MRI 01/19/18 0000 Signed Impressions: Service Date/Time: Friday, January 19, 2018 12:36 - CONCLUSION: 1. 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 These findings are very similar to the prior study 2016. 2. Plantar cutaneous defect and extensive midfoot plantar superficial soft tissue edema extending into the plantar musculature. These findings are suspicious for infection in the proper clinical setting. Elongated adjacent more medial and distal plantar soft tissue ovoid fluid collection may represent a pseudo-bursa or abscess. More ill-defined edema is seen extending laterally to the base of the fifth metatarsal with likely early osteomyelitis at this location. This lateral extension is a new finding when compared to the prior study of 2016. 3. Posterior superficial soft tissue edema the heel with mild adjacent bony edema is very similar to the prior study with no definitive osteomyelitis. Ganga Luna MD Abdomen X-Ray 01/19/18 Signed Impressions: Service Date/Time: Friday, January 19, 2018 10:57 - CONCLUSION: Nonspecific bowel gas pattern. Mildly distended air-filled stomach. Ganga Luna MD Liver Ultrasound 01/16/18 Signed Impressions: Service Date/Time: January 16:59 - CONCLUSION: 1. Hepatomegaly and diffuse increased hepatic echogenicity without intrahepatic ductal dilatation or focal mass. Findings are most consistent with hepatic steatosis or medical liver disease. 2. Trace ascites. 3. Cholelithiasis with gallbladder wall prominence and trace pericholecystic fluid. These findings may be seen in the setting of chronic liver disease or ascites and significantly limit ultrasound evaluation for acute cholecystitis. If there is significant clinical concern regarding acute cholecystitis, HIDA scan may be performed to evaluate for cystic duct patency. Nam Tinajero MD Head CT 01/14/182000 Signed Impressions: Service Date/Time: Sunday, January 14, 2018 20:22 - CONCLUSION: Normal examination for a patient of this age. Marcio Hansen MD Lower Extremity CT 01/14/18 Signed Impressions: Service Date/Time: Sunday, January 14, 2018 23:38 - CONCLUSION: 1. CT findings characteristic of a severe Charcot foot in the mid and hindfoot with collapse of the plantar arch. Osteoarthritic changes of the first MTP joint 2. However, findings all appear to be chronic with no acute osseous injury Marquis Mcdonald MD Abdomen/Pelvis CT 01/14/18 Signed Impressions: Service Date/Time: Sunday, January 14, 2018 23:35 - CONCLUSION: 1. CT findings suggest volume overload or low oncotic pressures with some flank and mesenteric edema, gallbladder wall thickening and some free fluid in the pelvis. Heart size is somewhat prominent. 2. Bilateral symmetric gynecomastia. Nonspecific findings but can be associated with some chronic disease processes or medications. 3. Left periaortic borderline prominent lymph nodes. Again, nonspecific but may be reactive associated with the aforementioned mesenteric edema. 4. 5.7 cm periumbilical fatty hernia. There is now some fluid along the periphery of the hernia. This could be related to the generalized edema described above although fatty infarction could have a similar radiographic presentation. Please correlate with clinical symptomatology Marquis Mcdonald MD Physical Exam HEENT: Normocephalic; atraumatic CHEST: Even/unlabored CARDIAC: RRR ABDOMEN: Soft, nondistended, nontender; bowel sounds active [employer]ER: lethargic, confused (Paradise Price) Assessment and Plan Plan Assessment: - Elevated LFTs- previously worked up by our service for same in February 2017- Hepatitis panel done at that time was negative, noted to be likely secondary to medication. February 2017 labs: AST-617 ALT-311 Alk phos-618 T bili-0.8 Iron-15 TIBC-157 %sat-9.6 Ferritin-245 Currently: AST-107 ALT-85 Alk phos-386 T bili-1 Coagulopathy (INR 2.1) Hypoalbuminemia (albumin 1.2) Hepatitis panel revealed positive Hep C IgG antibody Unable to obtain social history including alcohol and illicit drugs. No visible tattoos on my exam. CT abdomen and pelvis W/O IV contrast (01/14) --> CT findings suggest volume overload or low oncotic pressures with some flank and mesenteric edema, gallbladder wall thickening and some free fluid in the pelvis. Heart size is somewhat prominent. Bilateral symmetric gynecomastia. Nonspecific findings but can be associated with some chronic disease processes or medications. Left periaortic borderline prominent lymph nodes. Again, nonspecific but may be reactive associated with the aforementioned mesenteric edema. 5.7 cm periumbilical fatty hernia. There is now some fluid along the periphery of the hernia. This could be related to the generalized edema described above although fatty infarction could have a similar radiographic presentation. Please correlate with clinical symptomatology US liver (01/16) --> Hepatomegaly and diffuse increased hepatic echogenicity without intrahepatic ductal dilatation or focal mass. Findings are most consistent with hepatic steatosis or medical liver disease. Trace ascites. Cholelithiasis with gallbladder wall prominence and trace pericholecystic fluid. These findings may be seen in the setting of chronic liver disease or ascites and significantly limit ultrasound evaluation for acute cholecystitis. If there is significant clinical concern regarding acute cholecystitis, HIDA scan may be performed to evaluate for cystic duct patency. - Anemia- previous work up by our service in February 2017 --> EGD and colonoscopy --> Esophagus was normal. Food residue in the entire examined stomach. Medium sized ulcer in the gastric antrum. Significant amount of stool was present throughout the entire examined colon. Retroflexion not performed. Incomplete exam due to poor prep. Barium enema revealed an extremely redundant colon. No definite mucosa abnormality was identified, but only partial visualization of the cecum. - Leukocytosis with elevated lactic acid on arrival and febrile- Infection to LLE- on Zosyn and Cefazolin - BISHOP on CKD Differentials for elevated LFTs: Hepatitis C vs shocked liver secondary to hypotension from sepsis (lowest BP documented on 01/14 was 85/53) vs hepatic congestion (01/18) Pt awake today and answering questions appropriately. Denies any GI symptoms at this time. He is now on hemodialysis. Drop in H/H ntoed overnight, normocytic, likely multifactorial- no obvious GIB LFTs with some improvement today, AST-64 ALT-52 Alk phos-319 T bili-0.6 (01/19) Pt resting in bed, confused during my exam, currently in soft wrist restraints. Drop in H/H noted from 9.1/27.3 yesterday to 7.8/23.4 today, likely multifactorial, no obvious GIB. Increase in INR currently 4. Increase in alk phos, LFTs continue to trend down. Liver work up still pending. 01/20/18 getting dialysis. LFTs trending down. INR 1.7 today. liver w/u so far unremarkable other than hep c. hcv quant and genotype are pending. ALP isoenzymes are pending. Plan: await liver w/u await HCV quant and genotype await Alk phos iso enzymes Monitor H/H Transfuse as needed abx per ID supportive care Pt has been seen and examined by myself and and this note is on his behalf (Paradise Price) Physician Comments Seen and examined with giuliana LOPEZ villatoro in progress. Discussed with family at the bedside. (Elizabeth Obando MD) Paradise Price January 20, 2018 10:42 Elizabeth Obando MD January 20, 2018 15:00
[2018-01-20] MEDS: HEPARIN SODIUM - IV 10,000 UNITS/10 ML VIAL PRN (11:15)
[2018-01-20] MEDS: GENTAMICIN SULFATE 20 MG/2 ML VIAL OTHER PRN (11:15)
--- NOTE | 2018-01-20 11:38 | HHI.NPPN ---
Subjective Renal Failure: Acute Interval History patient was seen during dialysis. On 4K, will not remove any fluid in UF. He is lethargic. No evidence of fluid overload. Patient is non oliguric. Review of Systems General Constitutional: Fatigue Objective Data Data Vital Signs Date Time Temp Pulse Resp B/P (MAP) Pulse Ox O2 Delivery O2 Flow Rate FiO2 01/20/18 10:00 56 01/20/18 08:29 95 01/20/18 08:00 59 01/20/18 08:00 98.2 59 22 165/74 (104) 95 01/20/18 08:00 98.4 01/20/18 06:00 58 01/20/18 04:00 51 01/20/18 04:00 98.0 51 20 172/99 (123) 95 01/20/18 02:00 56 01/20/18 00:00 98.0 61 36 131/63 (85) 97 01/20/18 00:00 61 01/19/18 22:00 61 01/19/18 20:00 97.6 61 30 154/94 (114) 100 01/19/18 20:00 61 01/19/18 18:00 57 01/19/18 16:00 57 01/19/18 16:00 97.6 57 18 192/84 (120) 100 01/19/18 14:00 55 01/19/18 12:00 58 01/19/18 12:00 97.7 58 15 177/83 (114) 97 -: 01/20/18 0432 01/20/18 0432 Physical Exam General Appearance: Comfortable Ears & Nose Ears & Nose Exam: Tympanic Membranes Normal Pulmonary Resp Exam: Breath Sounds Equal, No Distress Cardiology CV Exam: Normal Sinus Rhythm, Good Perfusion Gastrointestinal/Abdomen GI Exam: Soft, Non-Tender, Bowel Sounds Present Musculoskeletal MS Exam: Joints Intact, Normal Tone, Unable to Ambulate Integumentary Skin Exam: Warm, Dry Neurologic Neuro Remarks poorly responsive. Assessment/Plan Discussed Condition With: Patient Assessment Summary: BISHOP/Acute Renal Failure Problem List: (1) Acute worsening of stage 3 chronic kidney disease ICD Codes: N18.3 - Chronic kidney disease, stage 3 (moderate) Plan: Exact baseline is not known. Last year Creatinine was 1.7. BISHOP likely due to ATN from sepsis. Renal function may be improving. He is non oliguric. No fluid removal with HD today. Monitor urine output and renal function. Hopefully no more dialysis will be required. (2) Sepsis ICD Codes: A41.9 - Sepsis, unspecified organism Status: Resolved Plan: ID following. On Cefazolin, Source is likely infected leg wounds. 4/4 blood cultures positive, wound culture also positive for Group B strep (3) Hyponatremia ICD Codes: E87.1 - Hypo-osmolality and hyponatremia Status: Acute Plan: Documented history of psychogenic polydipsia. However given ETOH abuse, need to consider beer potomania. Improved. (4) Anemia ICD Codes: D64.9 - Anemia, unspecified Status: Chronic Plan: Hb improved. Monitor for bleeding. Problem Qualifiers (1) Sepsis: Qualified Codes: A41.9 - Sepsis, unspecified organism Shaun Mcmahon MD January 20, 2018 11:38
[2018-01-20 13:30] LABS: SMOOTH MUSCLE TOTAL AUTOABS Negative (Negative)
[2018-01-20] MEDS: MORPHINE SULFATE 4 MG/ML INJ IV PUSH PRN (14:24)
--- NOTE | 2018-01-20 14:50 | HHI.CCPN ---
Subjective Remarks/Hospital Course 57-year-old male presents from home with altered mental status. Patient has been altered and is oriented to person only. According to family, patient fell 2 days ago but we do not have any other information regarding this. Patient does have a history of chronic alcohol abuse but denies any alcohol today. 01/15: Late entry note patient seen a 7am. Patient lethargic but protecting airway. Patient is altered and oriented to self. Patient noted to be hyponatremic questionable if chronic. He continues on IV fluids NS 175 cc/hr. 01/16: Patient noted to be more lethargic today ABG performed severe metabolic acidosis noted IV fluids normal saline discontinued. She received 50 mEq of sodium bicarbonate IV push. Patient started on sodium bicarbonate infusion at 100 cc/hour. Antipsychotic medications Thorazine placed on hold all sedative type medications placed on hold. Patient was noted to have elevated creatinine nephrology consulted. Noted elevation in LFTs, hepatitis profile and liver ultrasound pending, likely shock liver secondary to hypotension due to septic shock. 01/17: The patient slightly more alert today, and combative. Continues on sodium bicarbonate infusion at 100 cc an hour with minimal improvement. INR noted to continue to be elevated GI has been consulted. Hepatitis panel is pending. Persistent leukocytosis WBC count elevation from 25-31 this a.m. thought to be possibly secondary to hydrocortisone. Initiated hydrocortisone weaning, expanded antibiotic coverage with Zosyn renally adjusted. Patient pancultured. patient received 1 dose of Lasix last evening with 1250 cc urine output in 12 hours. 01/18: Last evening Vas-Cath placed for initiation of dialysis. Creatinine increased this a.m. to 4.4 hemodialysis in progress. Patient's beta hydroxybutyrate was noted to be 4.24 last evening, insulin infusion initiated. Anion gap metabolic acidosis corrected. ABGs within normal limits. His a.m. patient alert, awake requesting something to drink. Formal swallow evaluation performed mechanical soft diet initiated. Patient was noted to have hepatitis C positive IgG, antibodies, continued workup underway. INR continues to be elevated at 3.1 this a.m.. Antibiotic coverage expanded yesterday with Zosyn WBC count downtrending. Patient hemodynamically stable hydrocortisone weaning initiated. Patient scheduled for MRI bilateral feet secondary to significant foot infection., 01/19: Afebrile. Bradycardic. More awake and alert. MRI foot pending. Resuming thioridazine 200 mg daily and hydroxyzine 50 mg twice daily. Adding as needed morphine and lorazepam for pain/agitation Subjective 01/20: Currently afebrile. Psychiatric medications resumed yesterday. Patient more appropriate. Hemodialysis ongoing today currently. Hepatitis genotype C not detected Objective Vital Signs Date Time Temp Pulse Resp B/P (MAP) Pulse Ox O2 Delivery O2 Flow Rate FiO2 01/20/18 14:29 12 01/20/18 14:00 60 01/20/18 12:00 97.2 147/70 (95) 01/20/18 08:29 95 01/19/18 07:32 21 01/18/18 07:16 Nasal Cannula 3.00 Intake and Output 01/20/18 01/20/18 01/20/18 07:59 15:59 23:59 Intake Total 150 ml Output Total 1000 ml Balance -850 ml Result Diagram: 01/20/18 0432 01/20/18 0432 Other Results Microbiology Date/Time Source Procedure Growth Status 01/17/18 10:55 Blood Peripheral Aerobic Blood Culture - Preliminary NO GROWTH IN 3 DAYS Resulted 01/17/18 10:55 Blood Peripheral Anaerobic Blood Culture - Preliminary NO GROWTH IN 3 DAYS Resulted 01/17/18 13:15 Urine Catheterized Urine Urine Culture - Final NO GROWTH IN 48 HOURS. Complete 01/16/18 15:00 Wound Foot Gram Stain - Final Complete 01/16/18 15:00 Wound Culture - Final Group A Beta Strep Complete Imaging Last Impressions Chest X-Ray 01/20/18 0600 Signed Impressions: Service Date/Time: Saturday, January 20, 2018 04:15 - CONCLUSION: Right IJ Vas-Cath in good position. Heart is enlarged. Duncan Zaldivar MD Foot MRI 01/19/18 0000 Signed Impressions: Service Date/Time: Friday, January 19, 2018 12:36 - CONCLUSION: 1. 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 These findings are very similar to the prior study 2016. 2. Plantar cutaneous defect and extensive midfoot plantar superficial soft tissue edema extending into the plantar musculature. These findings are suspicious for infection in the proper clinical setting. Elongated adjacent more medial and distal plantar soft tissue ovoid fluid collection may represent a pseudo-bursa or abscess. More ill-defined edema is seen extending laterally to the base of the fifth metatarsal with likely early osteomyelitis at this location. This lateral extension is a new finding when compared to the prior study of 2016. 3. Posterior superficial soft tissue edema the heel with mild adjacent bony edema is very similar to the prior study with no definitive osteomyelitis. Ganga Luna MD Abdomen X-Ray 01/19/18 Signed Impressions: Service Date/Time: Friday, January 19, 2018 10:57 - CONCLUSION: Nonspecific bowel gas pattern. Mildly distended air-filled stomach. Ganga Luna MD Liver Ultrasound 01/16/18 Signed Impressions: Service Date/Time: January 16:59 - CONCLUSION: 1. Hepatomegaly and diffuse increased hepatic echogenicity without intrahepatic ductal dilatation or focal mass. Findings are most consistent with hepatic steatosis or medical liver disease. 2. Trace ascites. 3. Cholelithiasis with gallbladder wall prominence and trace pericholecystic fluid. These findings may be seen in the setting of chronic liver disease or ascites and significantly limit ultrasound evaluation for acute cholecystitis. If there is significant clinical concern regarding acute cholecystitis, HIDA scan may be performed to evaluate for cystic duct patency. Nam Tinajero MD Head CT 01/14/182000 Signed Impressions: Service Date/Time: Sunday, January 14, 2018 20:22 - CONCLUSION: Normal examination for a patient of this age. Marcio Hansen MD Lower Extremity CT 01/14/18 Signed Impressions: Service Date/Time: Sunday, January 14, 2018 23:38 - CONCLUSION: 1. CT findings characteristic of a severe Charcot foot in the mid and hindfoot with collapse of the plantar arch. Osteoarthritic changes of the first MTP joint 2. However, findings all appear to be chronic with no acute osseous injury Marquis Mcdonald MD Abdomen/Pelvis CT 01/14/18 Signed Impressions: Service Date/Time: Sunday, January 14, 2018 23:35 - CONCLUSION: 1. CT findings suggest volume overload or low oncotic pressures with some flank and mesenteric edema, gallbladder wall thickening and some free fluid in the pelvis. Heart size is somewhat prominent. 2. Bilateral symmetric gynecomastia. Nonspecific findings but can be associated with some chronic disease processes or medications. 3. Left periaortic borderline prominent lymph nodes. Again, nonspecific but may be reactive associated with the aforementioned mesenteric edema. 4. 5.7 cm periumbilical fatty hernia. There is now some fluid along the periphery of the hernia. This could be related to the generalized edema described above although fatty infarction could have a similar radiographic presentation. Please correlate with clinical symptomatology Marquis Mcdonald MD Objective Remarks GENERAL: This 57-year-old male currently resting in bed on room air no acute distress SKIN: Focused skin assessment warm/dry. Chronic venous stasis bilateral lower extremities HEAD: Atraumatic. Normocephalic. EYES: Pupils equal and round about 2 mm bilaterally and reactive. Positive scleral icterus. No injection or drainage. ENT: No nasal bleeding or discharge. Mucous membranes pink and moist. NECK: Trachea midline. No JVD. CARDIOVASCULAR: Bradycardic, RRR. S1, S2. No S4. No murmur appreciated. RESPIRATORY: No accessory muscle use. Clear to auscultation. Breath sounds equal bilaterally. GASTROINTESTINAL: Abdomen soft, non-tender, nondistended. Hepatomegaly is appreciated MUSCULOSKELETAL: No obvious deformities. Charcot foot. Chronic appearing right foot plantar wound without discharge NEUROLOGICAL: Awake and alert to person. Not to place or time.. No obvious cranial nerve deficits. Motor strength 5/5, moving extremities 4 Urinary Catheter: Yes Assessment to: Continue Almaraz insert reason: Prolonged Immobilization Vascular Central Line Catheter: No Assessment to: Continue A/P Assessment and Plan Neuro/Psych: Metabolic encephalopathy secondary to sepsis -resolving Schizophrenia Posttraumatic stress disorder Iatrogenic encephalopathy resolving CT brain on admission revealed no acute intracranial findings. 5/3 Ammonia level 10 Neurology checks per ICU protocol 5/3 Hold antipsychotic meds (Thorazine) in the setting of lethargy. 01/19 - resume Thioridazine 200 mg daily with hydroxyzine 50 mg/twice daily home medications for schizophrenia 5/ patient alert and oriented x 2 now with bouts of confusion Acetaminophen 650 mg p.o. every 4 hours as needed fever/pain 1 through 5 Morphine sulfate 1 mg IV every 4 hours as needed pain 6 - 10 Lorazepam 1 mg IV every 4 hours as needed agitation Ziprasidone 10 mg IM every 12 hours as needed breakthrough agitation. Start date 01/19 maximum 3 days At home on hydrocodone/acetaminophen 10/325 1 tablet twice daily as needed pain Respiratory: Obtain O2 saturation greater than 92% patient currently on room air Incentive spirometry while awake Albuterol/ipratropium aerosols every 2 hours as needed dyspnea hours as needed Follow-up chest x-ray in a.m. 01/21 Cardiovascular: Septic shock -resolved History of hypertension Norepinephrine discontinued 01/15 0500 Maintain MAP greater than 65 Hold all antihypertensive medications in the setting of septic shock Resume aspirin 81 mg daily At home on amlodipine 10 mg p.o. daily for hypertension As needed Nitropaste/hydralazine for hypertension breakthrough Renal/FEN: Nonoliguric BISHOP Hypokalemia Maintain almaraz-for accurate I's and O's in a critically ill patient 01/16 Lasix 40 mg IV 1 dose 01/17 vascular cath placement 01/18 IHD 2 L off. Today's hemodialysis results pending Nephrology following-IHD per their recommendations Avoid nephrotoxic drugs Follow-up in a.m. potassium FEN/GI: Hepatitis C antibody positive. Genotype not detected and viral load pending Elevated LFTs- Shock Liver Hepatomegaly Cholelithiasis Monitor CMP 01/16 ultrasound of the liver- Trace ascites. Findings most consistent with hepatic steatosis or liver disease. Cholelithiasis with gallbladder wall prominence but trace pericholecystic fluid Hepatitis C IgG antibody positive Follow-up formal swallow evaluation-ADA diet GI consulted appreciate recommendations Noted VICKIE positive. Breakdown currently pending Heme/ID: Normocytic anemia Persistent leukocytosis Severe sepsis Coagulopathy Hemoglobin 7.0 this a.m. ,repeat H&H- Hgb 10 INR trending up 2->3.1-> 4.0 heparin SQ discontinued 01/17 ID following-cefazolin 2 g IV every 12 hours 01/15 blood culture-group A beta 01/16-follow-up wound culture bilateral feet Vitamin K 5 mg p.o. 1 Recheck coags and fibrinogen in a.m. 01/21 Pertinent microbiology 01/14 -blood cultures 2 beta strep group A 01/15 and 01/16 -wound -beta strep group A 01/16-01/17 -blood cultures 2 -no growth 01/17 -UA -no growth Endocrine: Diabetes mellitus Insulin drip will be discontinued. Start insulin glargine 8 units daily with medium Novulog sliding scale insulin Accu-Cheks q. before meals/at bedtime and 300 - beta hydroxybutyrate 4.4 - 0.12 -01/17 Insulin infusion initiated Glipizide 10 mg p.o. twice daily home medication held MSK : Bilateral wound infection feet 5/3 Podiatry [id number] recommendations Rule out osteomyelitis PT evaluation and treat /3 Wound care following application per recommendations MRI L fot 01/19 results reviewed revealing plantar cutaneous defect with underlying septated fluid signal extending into the area of plantar aponeurosis defect. This finding is much more prominent than on the comparison MRI and suggests soft tissue infection in the proper clinical setting. Defined rounded collection is not seen. The abnormal fluid signal extends to the plantar surface of the cuboid but no definitive evidence of osteomyelitis is seen. Extensive arthritic findings and bony destructive findings in the midfoot and hindfoot similar to prior study of 2016 indicating severe neuropathic osteoarthropathy. 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 These findings are very similar to the prior study 2016. Plantar cutaneous defect and extensive midfoot plantar superficial soft tissue edema extending into the plantar musculature. These findings are suspicious for infection in the proper clinical setting. Elongated adjacent more medial and distal plantar soft tissue ovoid fluid collection may represent a pseudo-bursa or abscess. More ill-defined edema is seen extending laterally to the base of the fifth metatarsal with likely early osteomyelitis at this location. This lateral extension is a new finding when compared to the prior study of 2016. Posterior superficial soft tissue edema the heel with mild adjacent bony edema is very similar to the prior study with no definitive osteomyelitis. appreciate podiatry's put Prophylaxis: GI Prophylaxis Pantoprazole DVT Prophylaxis -- SCDs Teds and SCDs. Heparin SQ on hold in the setting of elevated INR Lines: Peripheral IVs 2. Central line if indicated Right IJ dialysis catheter Level 2 follow-up No family at bedside. Discussed with [employer] APPRENTICE at bedside Calderon Romo MD January 20, 2018 14:50
[2018-01-20] MEDS ORDERED: LIDOCAINE HCL 1% 50 ML VIAL ONE (16:38)
--- NOTE | 2018-01-20 18:50 | HHI.IDPN ---
Note Infectious Disease Note Patient is much more alert. He awakens very easily and converses. Afebrile. Continues to receive hemodialysis. MRI of the foot noted. Blood cultures group A beta strep in 4 bottles. Wound culture from the foot has group A beta strep. Admitted with altered mental status. In the emergency department, his blood pressure was 85/53. The white blood cell count was elevated at 27 and lactic acid level of 3.1. PAST MEDICAL HISTORY: 1. Hypertension. 2. Anxiety/depression. 3. Hiatal hernia. 4. Schizophrenia. 5. Diabetes mellitus. 6. Charcot deformity of the feet. 7. A left pelvic fracture. 8. History of abscess of the right foot. ALLERGIES: VANCOMYCIN, LEVAQUIN, HALOPERIDOL, FLUPHENAZINE, CODEINE. MEDICATIONS: Current Medications Medications (Trade) Dose Ordered Sig/Portia Route PRN Reason Start Time Stop Time Status Last Admin Dose Admin Miscellaneous Information ([facility]) 1 [id number] XX 01/14/18 22:45 Chlorhexidine Gluconate (Chlorhexidine 2% Cloth) Taper DAILY@04 TOP 01/15/18 04:00 01/11/19 03:59 01/19/18 02:50 Chlorhexidine Gluconate (Chlorhexidine 2% Cloth) 3 pack UNSCH PRN TOP HYGIENIC CARE 01/14/18 22:45 Acetaminophen (Tylenol) 650 mg Q4H PRN PO fever or pain 1-5 01/15/18 01:00 Aspirin (Aspirin) 325 mg DAILY PO 01/15/18 09:00 01/20/18 09:30 Flumazenil (Romazicon Inj) 0.2 mg Q1M PRN IV PUSH SEE LABEL COMMENTS 01/16/18 01:00 Lorazepam (Ativan) 1 mg Q4H PRN PO CIWA 8 - 10 01/16/18 01:00 Future Hold Lorazepam (Ativan Inj) 1 mg Q4H PRN IV PUSH CIWA 8 - 10 01/16/18 01:00 Future Hold Lorazepam (Ativan) 2 mg Q2H PRN PO CIWA 11-14 01/16/18 01:00 Future Hold Lorazepam (Ativan Inj) 2 mg Q2H PRN IV PUSH CIWA 11-14 01/16/18 01:00 Future Hold 01/16/18 09:08 Lorazepam (Ativan Inj) 2 mg Q1H PRN IV PUSH CIWA 15-20 01/16/18 01:00 Future Hold Lorazepam (Ativan Inj) 2 mg Q15M PRN IV PUSH CIWA > 20 01/16/18 01:00 Future Hold Cefazolin Sodium/ Dextrose 50 ml @ 100 mls/hr Q12H IV 01/16/18 15:00 01/20/18 14:21 Sodium Chloride 1,000 ml @ 0 mls/hr Q0M PRN OTHER For Prime & Rinse Back 01/17/18 17:00 01/20/18 11:15 Heparin Sodium (Porcine) (Heparin Inj) 8,000 units UNSCH PRN IV FLUSH WITH DIALYSIS 01/17/18 17:00 Sodium Chloride 1,000 ml @ 200 mls/hr Q5H PRN IV WITH DIALYSIS 01/17/18 17:00 01/18/18 09:14 Sodium Chloride 1,000 ml @ 0 mls/hr Q0M PRN OTHER WITH DIALYSIS 01/17/18 17:00 Mannitol (Mannitol Inj) 12.5 gm UNSCH PRN IV WITH DIALYSIS 01/17/18 17:00 Albumin Human 100 ml @ 60 mls/hr UNSCH PRN IV WITH DIALYSIS 01/17/18 17:00 Sodium Chloride (NS Flush) 5 ml UNSCH PRN IV FLUSH WITH DIALYSIS 01/17/18 17:00 Heparin Sodium (Porcine) (Heparin Inj) UNSCH PRN .XX WITH DIALYSIS 01/17/18 17:00 01/20/18 11:15 Gentamicin Sulfate (Gentamicin Inj) 20 mg UNSCH PRN OTHER WITH DIALYSIS 01/17/18 17:00 01/20/18 11:15 Ondansetron HCl (Zofran Inj) 4 mg UNSCH PRN IV PUSH WITH DIALYSIS 01/17/18 17:00 Acetaminophen (Tylenol) 650 mg UNSCH PRN PO for headach, pain, temp > 101F 01/17/18 17:00 Diphenhydramine HCl (Benadryl) 25 mg UNSCH PRN PO for hives/itching/anaphylaxis 01/17/18 17:00 Nitroglycerin (Nitrostat Sl) 0.4 mg UNSCH PRN SL CHEST PAIN 01/17/18 17:00 Clonidine (Catapres) 0.1 mg UNSCH PRN PO for BP > 180/100 X 2 readings 5/4/18 17:00 Gelatin (Gelfoam 12 Mm/7 Mm Top) 1 foam UNSCH PRN TOP SEE LABEL COMMENTS 01/17/18 17:00 Hydrocortisone Sodium Succinate (SoluCORTEF INJ) 50 mg DAILY IV PUSH 01/19/18 09:00 01/21/18 08:59 01/20/18 09:30 Insulin Aspart (NovoLOG SUPPLEMENTAL SCALE) 1 ACHS SLIDING SCALE SQ 01/19/18 12:00 01/19/18 11:59 Dextrose (D50w (Vial) Inj) 50 ml UNSCH PRN IV PUSH HYPOGLYCEMIA-SEE COMMENTS 01/19/18 09:15 Glucagon (Glucagon Inj) 1 mg UNSCH PRN OTHER HYPOGLYCEMIA-SEE COMMENTS 01/19/18 09:15 Mupirocin (Bactroban Nasal 2% Oint) 1 applic Taper BID EACH NARE 01/19/18 21:00 01/15/19 20:59 01/20/18 09:29 Hydroxyzine Pamoate (Vistaril) 50 mg BID PO 01/19/18 10:00 01/20/18 09:29 Patient Own Medication PT OWN MED: THIORIDAZINE DOSE 10... DAILY PO 01/20/18 09:00 Future Hold Morphine Sulfate (Morphine Inj) 1 mg Q4H PRN IV PUSH pain 6-10 01/19/18 10:00 01/20/18 14:24 Lorazepam (Ativan Inj) 1 mg Q4H PRN IV PUSH Agitation 01/19/18 09:15 01/20/18 01:04 Ziprasidone (Geodon Inj) 10 mg Q12H PRN IM AGITATION, breakthrough 01/19/18 09:15 01/22/18 09:14 Sodium Chloride (NS Flush) 2 ml UNSCH PRN IV FLUSH FLUSH AFTER USING IV ACCESS 01/19/18 09:15 Sodium Chloride (NS Flush) 2 ml BID IV FLUSH 01/19/18 21:00 01/20/18 09:30 Pantoprazole Sodium (Protonix) 40 mg DAILY PO 01/20/18 09:00 01/20/18 09:30 Ondansetron HCl (Zofran Inj) 4 mg Q6H PRN IV PUSH NAUSEA OR VOMITING 01/19/18 09:15 Albuterol Sulfate (Albuterol Neb) 2.5 mg Q2HR NEB PRN INH SOB/WHEEZING 01/19/18 09:15 Senna/Docusate Sodium (Lizz-Colace) 1 tab BID PO 01/19/18 21:00 01/20/18 09:29 Bisacodyl (Dulcolax Supp) 10 mg DAILY PRN RECTAL SEVERE CONSITIPATION 01/19/18 09:15 Lactulose (Lactulose Liq) 30 ml DAILY PO 01/20/18 09:00 01/20/18 09:29 Polyethylene Glycol (Miralax) 17 gm DAILY PO 01/20/18 09:00 01/20/18 09:29 Insulin Detemir (Levemir Inj) 8 units DAILY SQ 01/20/18 09:00 01/20/18 09:28 Hydralazine HCl (Apresoline Inj) 10 mg Q1H PRN IV PUSH SBP>160, DBP>90 01/19/18 09:45 01/20/18 05:11 Nitroglycerin (Nitroglycerin 2% Oint) 2 inch Q6H PRN TOPICAL SBP>160, DBP>90 01/19/18 09:45 SOCIAL HISTORY: Positive alcohol use reportedly daily. No tobacco. No illicit drugs. Objective: Laboratory Tests Test 01/19/18 04:50 01/20/18 04:32 White Blood Count 17.8 TH/MM3 18.0 TH/MM3 Red Blood Count 2.63 MIL/MM3 2.67 MIL/MM3 Hemoglobin 7.8 GM/DL 7.9 GM/DL Hematocrit 23.4 % 23.7 % Mean Corpuscular Volume 89.0 FL 88.7 FL Mean Corpuscular Hemoglobin 29.7 PG 29.6 PG Mean Corpuscular Hemoglobin Concent 33.3 % 33.3 % Red Cell Distribution Width 14.8 % 14.9 % Platelet Count 177 TH/MM3 199 TH/MM3 Mean Platelet Volume 10.3 FL 9.6 FL Neutrophils (%) (Auto) 87.4 % 88.6 % Lymphocytes (%) (Auto) 7.3 % 7.9 % Monocytes (%) (Auto) 4.8 % 2.2 % Eosinophils (%) (Auto) 0.3 % 0.7 % Basophils (%) (Auto) 0.2 % 0.6 % Neutrophils # (Auto) 15.5 TH/MM3 16.0 TH/MM3 Lymphocytes # (Auto) 1.3 TH/MM3 1.4 TH/MM3 Monocytes # (Auto) 0.9 TH/MM3 0.4 TH/MM3 Eosinophils # (Auto) 0.1 TH/MM3 0.1 TH/MM3 Basophils # (Auto) 0.0 TH/MM3 0.1 TH/MM3 CBC Comment AUTO DIFF AUTO DIFF Differential Comment AUTO DIFF CONFIRMED FINAL DIFF MANUAL Platelet Estimate NORMAL NORMAL Platelet Morphology Comment ENLARGED ENLARGED Target Cells 1+ Differential Total Cells Counted 100 Neutrophils % (Manual) 77 % Band Neutrophils % 9 % Lymphocytes % 4 % Monocytes % 6 % Eosinophils % 1 % Neutrophils # (Manual) 16.0 TH/MM3 Metamyelocytes 2 % Myelocytes 1 % Toxic Granulation 2+ Laboratory Tests Test 01/19/18 04:50 01/20/18 04:32 Blood Urea Nitrogen 69 MG/DL 63 MG/DL Creatinine 3.24 MG/DL 2.91 MG/DL Random Glucose 140 MG/DL 116 MG/DL Total Protein 6.9 GM/DL 7.0 GM/DL Albumin 1.5 GM/DL 1.5 GM/DL Calcium Level 7.5 MG/DL 7.6 MG/DL Alkaline Phosphatase 360 U/L 362 U/L Aspartate Amino Transf (AST/SGOT) 52 U/L 38 U/L Alanine Aminotransferase (ALT/SGPT) 22 U/L 9 U/L Total Bilirubin 0.6 MG/DL 0.6 MG/DL Sodium Level 138 MEQ/L 142 MEQ/L Potassium Level 3.0 MEQ/L 3.1 MEQ/L Chloride Level 102 MEQ/L 107 MEQ/L Carbon Dioxide Level 24.6 MEQ/L 27.3 MEQ/L Anion Gap 11 MEQ/L 8 MEQ/L Estimat Glomerular Filtration Rate 20 ML/MIN 23 ML/MIN Phosphorus Level 3.4 MG/DL Magnesium Level 2.2 MG/DL Lactate Dehydrogenase 213 U/L Imaging: Chest X-Ray 01/20/18 0600 Signed Impressions: Service Date/Time: Saturday, January 20, 2018 04:15 - CONCLUSION: Right IJ Vas-Cath in good position. Heart is enlarged. Duncan Zaldivar MD Foot MRI 01/19/18 0000 Signed Impressions: Service Date/Time: Friday, January 19, 2018 12:36 - CONCLUSION: 1. 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 These findings are very similar to the prior study 2016. 2. Plantar cutaneous defect and extensive midfoot plantar superficial soft tissue edema extending into the plantar musculature. These findings are suspicious for infection in the proper clinical setting. Elongated adjacent more medial and distal plantar soft tissue ovoid fluid collection may represent a pseudo-bursa or abscess. More ill-defined edema is seen extending laterally to the base of the fifth metatarsal with likely early osteomyelitis at this location. This lateral extension is a new finding when compared to the prior study of 2016. 3. Posterior superficial soft tissue edema the heel with mild adjacent bony edema is very similar to the prior study with no definitive osteomyelitis. Ganga Luna MD Foot MRI 01/19/18 Signed Impressions: Service Date/Time: Friday, January 19, 2018 12:36 - CONCLUSION: 1. Plantar cutaneous defect with underlying septated fluid signal extending into the area of plantar aponeurosis defect. This finding is much more prominent than on the comparison MRI and suggests soft tissue infection in the proper clinical setting. Defined rounded collection is not seen. The abnormal fluid signal extends to the plantar surface of the cuboid but no definitive evidence of osteomyelitis is seen. 2. Extensive arthritic findings and bony destructive findings in the midfoot and hindfoot similar to prior study of 2016 indicating severe neuropathic osteoarthropathy. Ganga Luna MD Abdomen X-Ray 01/19/18 Signed Impressions: Service Date/Time: Friday, January 19, 2018 10:57 - CONCLUSION: Nonspecific bowel gas pattern. Mildly distended air-filled stomach. Ganga Luna MD Head CT 01/14/182000 Signed Impressions: Service Date/Time: Sunday, January 14, 2018 20:22 - CONCLUSION: Normal examination for a patient of this age. Marcio Hansen MD Chest X-Ray 01/14/182000 Signed Impressions: Service Date/Time: Sunday, January 14, 2018 20:25 - CONCLUSION: 1. Mild cardiomegaly. No focal consolidation or effusion. Marcio Hansen MD Lower Extremity CT 01/14/18 Signed Impressions: Service Date/Time: Sunday, January 14, 2018 23:38 - CONCLUSION: 1. CT findings characteristic of a severe Charcot foot in the mid and hindfoot with collapse of the plantar arch. Osteoarthritic changes of the first MTP joint 2. However, findings all appear to be chronic with no acute osseous injury Marquis Mcdonald MD Abdomen/Pelvis CT 01/14/18 0000 Signed Impressions: Service Date/Time: Sunday, January 14, 2018 23:35 - CONCLUSION: 1. CT findings suggest volume overload or low oncotic pressures with some flank and mesenteric edema, gallbladder wall thickening and some free fluid in the pelvis. Heart size is somewhat prominent. 2. Bilateral symmetric gynecomastia. Nonspecific findings but can be associated with some chronic disease processes or medications. 3. Left periaortic borderline prominent lymph nodes. Again, nonspecific but may be reactive associated with the aforementioned mesenteric edema. 4. 5.7 cm periumbilical fatty hernia. There is now some fluid along the periphery of the hernia. This could be related to the generalized edema described above although fatty infarction could have a similar radiographic presentation. Please correlate with clinical symptomatology Marquis Mcdonald MD PHYSICAL EXAMINATION: GENERAL: Patient awake and alert when aroused. HEENT: Pupils constricted, but reactive to light. The sclerae is pale. Oropharynx, dry mucosa. No lesions. No thrush. NECK: Supple without adenopathy or swelling. LUNGS: Decreased clear breath sounds. HEART: Distant S1 and S2. No murmurs, rubs or gallops. ABDOMEN: Bowel sounds present, soft, mildly distended, protruding umbilical abdominal hernia. EXTREMITIES: No clubbing. No cyanosis. Charcot deformity of both feet at the plantar aspect with bulging deformity. 1+ edema of the legs. SKIN: No diffuse rash. NEUROLOGIC: No gross focal finding. PSYCHIATRIC: Calm. IMPRESSION: 1. Severe sepsis. 2. Bacteremia due to group A beta strep. 3. Leukocytosis secondary to sepsis. 4. Source of sepsis - diabetic foot infection due to group A strep. 5. Acute renal failure. 6. MR of the foot suggesting soft tissue infection but no osteomyelitis. Appears to be doing better. RECOMMENDATIONS: 1. Continue Cefazolin. 2. Monitor white blood cell count. 3. Follow clinical status. Sen Washington MD January 20, 2018 18:50
[2018-01-20 19:54] LABS: CERULOPLASMIN 43 mg/dL (18-36)
--- NOTE | 2018-01-20 23:43 | HHI.PR ---
Subjective Remarks Patient sen bedside with nurse present. Patient is lethargic. Nurse states he received morphine secondary to pain. Patient snoring and sleeping during visit. Objective Vital Signs Date Time Temp Pulse Resp B/P (MAP) Pulse Ox O2 Delivery O2 Flow Rate FiO2 01/20/18 22:30 57 9 154/69 (97) 97 01/20/18 22:15 59 18 140/65 (90) 97 01/20/18 22:09 98 21 01/20/18 22:00 61 01/20/18 22:00 62 19 121/58 (79) 98 01/20/18 21:45 61 14 138/63 (88) 98 01/20/18 21:30 57 14 168/80 (109) 98 01/20/18 21:15 59 13 169/80 (109) 98 01/20/18 21:00 55 19 177/77 (110) 98 01/20/18 20:45 56 11 151/75 (100) 99 01/20/18 20:30 57 19 155/73 (100) 98 01/20/18 20:27 55 17 173/75 (107) 98 01/20/18 20:15 54 19 171/84 (113) 98 01/20/18 20:00 58 01/20/18 20:00 97.8 56 18 169/88 (115) 98 01/20/18 19:45 52 19 162/84 (110) 98 01/20/18 19:30 55 19 162/82 (108) 97 01/20/18 19:15 52 19 161/79 (106) 97 01/20/18 19:00 55 12 175/84 (114) 97 01/20/18 18:00 60 01/20/18 16:00 56 01/20/18 16:00 97.4 56 11 173/80 (111) 98 01/20/18 14:29 12 01/20/18 14:00 60 01/20/18 12:00 97.2 60 14 147/70 (95) 01/20/18 12:00 60 01/20/18 10:00 56 01/20/18 08:29 95 01/20/18 08:00 59 01/20/18 08:00 98.2 59 22 165/74 (104) 95 01/20/18 08:00 98.4 01/20/18 06:00 58 01/20/18 04:00 51 01/20/18 04:00 98.0 51 20 172/99 (123) 95 01/20/18 02:00 56 01/20/18 00:00 98.0 61 36 131/63 (85) 97 01/20/18 00:00 61 I/O 01/20/18 01/20/18 01/20/18 01/21/18 01/21/18 01/21/18 07:00 15:00 23:00 07:00 15:00 23:00 Intake Total 150 ml 50 ml 960 ml Output Total 1000 ml 1200 ml 650 ml Balance -850 ml -1150 ml 310 ml Intake Oral 100 ml 960 ml IV Total 50 ml 50 ml Output Urine Total 1000 ml 650 ml Hemodialysis 1200 ml # Bowel Movements 5 Result Diagram: 01/20/18 0432 01/20/18 0432 Imaging Last Impressions Chest X-Ray 01/20/18 0600 Signed Impressions: Service Date/Time: Saturday, January 20, 2018 04:15 - CONCLUSION: Right IJ Vas-Cath in good position. Heart is enlarged. Duncan Zaldivar MD Foot MRI 01/19/18 0000 Signed Impressions: Service Date/Time: Friday, January 19, 2018 12:36 - CONCLUSION: 1. 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 These findings are very similar to the prior study 2016. 2. Plantar cutaneous defect and extensive midfoot plantar superficial soft tissue edema extending into the plantar musculature. These findings are suspicious for infection in the proper clinical setting. Elongated adjacent more medial and distal plantar soft tissue ovoid fluid collection may represent a pseudo-bursa or abscess. More ill-defined edema is seen extending laterally to the base of the fifth metatarsal with likely early osteomyelitis at this location. This lateral extension is a new finding when compared to the prior study of 2016. 3. Posterior superficial soft tissue edema the heel with mild adjacent bony edema is very similar to the prior study with no definitive osteomyelitis. Ganga Luna MD Abdomen X-Ray 01/19/18 0000 Signed Impressions: Service Date/Time: Friday, January 19, 2018 10:57 - CONCLUSION: Nonspecific bowel gas pattern. Mildly distended air-filled stomach. Ganga Luna MD Liver Ultrasound 01/16/18 0000 Signed Impressions: Service Date/Time: January 16:59 - CONCLUSION: 1. Hepatomegaly and diffuse increased hepatic echogenicity without intrahepatic ductal dilatation or focal mass. Findings are most consistent with hepatic steatosis or medical liver disease. 2. Trace ascites. 3. Cholelithiasis with gallbladder wall prominence and trace pericholecystic fluid. These findings may be seen in the setting of chronic liver disease or ascites and significantly limit ultrasound evaluation for acute cholecystitis. If there is significant clinical concern regarding acute cholecystitis, HIDA scan may be performed to evaluate for cystic duct patency. Nam Tinajero MD Head CT 01/14/182000 Signed Impressions: Service Date/Time: Sunday, January 14, 2018 20:22 - CONCLUSION: Normal examination for a patient of this age. Marcio Hansen MD Lower Extremity CT 01/14/18 Signed Impressions: Service Date/Time: Sunday, January 14, 2018 23:38 - CONCLUSION: 1. CT findings characteristic of a severe Charcot foot in the mid and hindfoot with collapse of the plantar arch. Osteoarthritic changes of the first MTP joint 2. However, findings all appear to be chronic with no acute osseous injury Marquis Mcdonald MD Abdomen/Pelvis CT 01/14/18 Signed Impressions: Service Date/Time: Sunday, January 14, 2018 23:35 - CONCLUSION: 1. CT findings suggest volume overload or low oncotic pressures with some flank and mesenteric edema, gallbladder wall thickening and some free fluid in the pelvis. Heart size is somewhat prominent. 2. Bilateral symmetric gynecomastia. Nonspecific findings but can be associated with some chronic disease processes or medications. 3. Left periaortic borderline prominent lymph nodes. Again, nonspecific but may be reactive associated with the aforementioned mesenteric edema. 4. 5.7 cm periumbilical fatty hernia. There is now some fluid along the periphery of the hernia. This could be related to the generalized edema described above although fatty infarction could have a similar radiographic presentation. Please correlate with clinical symptomatology Marquis Mdconald MD Other Results Microbiology Date/Time Source Procedure Growth Status 01/17/18 10:55 Blood Peripheral Aerobic Blood Culture - Preliminary NO GROWTH IN 3 DAYS Resulted 01/17/18 10:55 Blood Peripheral Anaerobic Blood Culture - Preliminary NO GROWTH IN 3 DAYS Resulted 01/17/18 13:15 Urine Catheterized Urine Urine Culture - Final NO GROWTH IN 48 HOURS. Complete 01/16/18 15:00 Wound Foot Gram Stain - Final Complete 01/16/18 15:00 Wound Culture - Final Group A Beta Strep Complete Objective Remarks Lower extremity physical exam: Vascular: Dorsalis pedis diminished, posterior tibial diminished; bilaterally. Capillary refill time within normal limits to digits 5 bilateral foot. Edema present bilateral foot and ankle Neuro: Gross sensation intact to bilateral lower extremity. Pinpoint sensation decreased bilaterally. No hyperalgesia noted to bilateral lower extremity Dermatology: Right plantar midfoot ulceration with granular base associated fluctuance, mild erythema noted. Left plantar midfoot ulceration with fluctuance noted. Concern for bilateral foot abscesses. Purulent drainage noted upon compression of bilateral foot ulcerations. Right anterior leg superficial ulceration measuring less than 1 cm x 1 cm with granular base and no associated erythema or edema. Musculoskeletal: Rocker-bottom deformity noted to bilateral foot. Medications and IVs Last Impressions Chest X-Ray 01/20/18 0600 Signed Impressions: Service Date/Time: Saturday, January 20, 2018 04:15 - CONCLUSION: Right IJ Vas-Cath in good position. Heart is enlarged. Duncan Zaldivar MD Foot MRI 01/19/18 0000 Signed Impressions: Service Date/Time: Friday, January 19, 2018 12:36 - CONCLUSION: 1. 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 These findings are very similar to the prior study 2016. 2. Plantar cutaneous defect and extensive midfoot plantar superficial soft tissue edema extending into the plantar musculature. These findings are suspicious for infection in the proper clinical setting. Elongated adjacent more medial and distal plantar soft tissue ovoid fluid collection may represent a pseudo-bursa or abscess. More ill-defined edema is seen extending laterally to the base of the fifth metatarsal with likely early osteomyelitis at this location. This lateral extension is a new finding when compared to the prior study of 2016. 3. Posterior superficial soft tissue edema the heel with mild adjacent bony edema is very similar to the prior study with no definitive osteomyelitis. Ganga Luna MD Abdomen X-Ray 01/19/18 0000 Signed Impressions: Service Date/Time: Friday, January 19, 2018 10:57 - CONCLUSION: Nonspecific bowel gas pattern. Mildly distended air-filled stomach. Ganga Luna MD Liver Ultrasound 5/3/18 0000 Signed Impressions: Service Date/Time: January 16:59 - CONCLUSION: 1. Hepatomegaly and diffuse increased hepatic echogenicity without intrahepatic ductal dilatation or focal mass. Findings are most consistent with hepatic steatosis or medical liver disease. 2. Trace ascites. 3. Cholelithiasis with gallbladder wall prominence and trace pericholecystic fluid. These findings may be seen in the setting of chronic liver disease or ascites and significantly limit ultrasound evaluation for acute cholecystitis. If there is significant clinical concern regarding acute cholecystitis, HIDA scan may be performed to evaluate for cystic duct patency. Nam Tinajero MD Head CT 01/14/182000 Signed Impressions: Service Date/Time: Sunday, January 14, 2018 20:22 - CONCLUSION: Normal examination for a patient of this age. Marcio Hansen MD Lower Extremity CT 01/14/18 Signed Impressions: Service Date/Time: Sunday, January 14, 2018 23:38 - CONCLUSION: 1. CT findings characteristic of a severe Charcot foot in the mid and hindfoot with collapse of the plantar arch. Osteoarthritic changes of the first MTP joint 2. However, findings all appear to be chronic with no acute osseous injury Marquis Mcdonald MD Abdomen/Pelvis CT 01/14/18 Signed Impressions: Service Date/Time: Sunday, January 14, 2018 23:35 - CONCLUSION: 1. CT findings suggest volume overload or low oncotic pressures with some flank and mesenteric edema, gallbladder wall thickening and some free fluid in the pelvis. Heart size is somewhat prominent. 2. Bilateral symmetric gynecomastia. Nonspecific findings but can be associated with some chronic disease processes or medications. 3. Left periaortic borderline prominent lymph nodes. Again, nonspecific but may be reactive associated with the aforementioned mesenteric edema. 4. 5.7 cm periumbilical fatty hernia. There is now some fluid along the periphery of the hernia. This could be related to the generalized edema described above although fatty infarction could have a similar radiographic presentation. Please correlate with clinical symptomatology Marquis Mcdonald MD Assessment and Plan Assessment and Plan 57-year-old male with bilateral lower extremity plantar ulcers concerning for abscesses, right anterior leg superficial ulceration Patient examined and evaluated nurse present bedside Patient is unable to respond to/answer questions WBC trending down Consent signed Timeout performed Nurse bedside for procedure Due to degree of fibrotic necrotic tissue noted to left foot recommend surgical debridement of all necrotic tissue with wound VAC placement if limb salvage is to be attempted Once medically optimized patient to be brought to operating room, will discuss if OR intervention possible for Saturday Patient will need to remain nonweightbearing to bilateral lower extremity secondary to plantar foot wounds Procedure note: 1% lidocaine plain infiltrated about bilateral foot 10 cc total to each foot. Upon confirmation of anesthesia attention was directed to right foot which was prepped with Betadine. 15 blade was utilized to make incision to distal medial to plantar ulceration at area of abscess noted on MRI. Upon incision 10 cc purulent drainage noted. Copious irrigation performed to right foot. Full-thickness excisional debridement performed to right foot ulceration. Attention was then directed to the left foot at which time 15 blade was utilized to remove all nonviable necrotic tissue, incision was made 5 cc of purulent drainage were expressed. There was noted to be copious amounts of necrotic fibrotic tissue. Full-thickness excisional debridement performed. Copious irrigation was performed to left foot. Bilateral foot was packed with silver alginate dressing, as well as silver alginate dressing being placed to bilateral foot followed by 4 x 4's ABDs Barry and Osei. Heel offloading booties in place to bilateral foot. Patient tolerated procedure and anesthesia well, capillary refill time to bilateral foot intact Juani Vivar DPM January 20, 2018 23:42
[2018-01-21] VITALS (35 sets, daily range): BP systolic 108–183; BP diastolic 56–78; PULSE 53–77; RESP 8–20; TEMP 97.6–98.7; O2SAT 95–100
[2018-01-21] MEDS: CHLORHEXIDINE GLUCONATE 2 % 1 PACK (2 CLOTHS) TOP SCH (03:19)
[2018-01-21] MEDS: ceFAZolin 2 GM PREMIX 50 ML IV SCH ×2 (03:19→15:49)
[2018-01-21] MEDS: MORPHINE SULFATE 4 MG/ML INJ IV PUSH PRN ×3 (03:24→21:42)
[2018-01-21] MEDS ORDERED: GELFOAM SIZE 100 TOPICAL ONE (04:15)
--- NOTE | 2018-01-21 05:40 | RADRPT ---
EXAM DATE/TIME: 01/21/2018 03:50 [facility] COMPARISON: CHEST SINGLE AP, January 20, 2018, 4:15. INDICATIONS : Short of breath. MEDICAL HISTORY : Hypertension. Diabetes mellitus type II. SURGICAL HISTORY : None. ENCOUNTER: Subsequent ACUITY: 1 week PAIN SCORE: 0/10 LOCATION: Bilateral chest FINDINGS: A single view of the chest demonstrates the lungs to be symmetrically aerated without evidence of mas s, infiltrate or effusion. The cardiomediastinal contours are unremarkable. Osseous structures are intact. CONCLUSION: Normal examination. Right IJ Vas-Cath in good position Duncan Zaldivar MD on January 21, 2018 at 5:38 Board Certified Radiologist. This report was verified electronically.
[2018-01-21 06:56] LABS: INTERNATIONAL NORMALIZED RATIO 1.5 RATIO; PROTHROMBIN TIME - PATIENT 14.7 SEC (9.8-11.6)
[2018-01-21 07:04] LABS: AUTOMATED NEUTROPHIL # 14.6 TH/MM3 (1.8-7.7); BASOPHIL % 0.1 % (0.0-2.0); EOSINOPHIL # 0.2 TH/MM3 (0-0.4); HEMATOCRIT 21.3 % (39.0-51.0); LYMPH % 7.5 % (9.0-44.0); LYMPHOCYTE # 1.3 TH/MM3 (1.0-4.8); MEAN CELL VOLUME 90.4 FL (80.0-100.0); MEAN CORPUSCULAR HEMOGLOBIN 29.7 PG (27.0-34.0); MEAN CORPUSCULAR HGB CONC 32.9 % (32.0-36.0); MEAN PLATELET VOLUME 9.7 FL (7.0-11.0); MONO % 4.9 % (0.0-8.0); MONOCYTE # 0.8 TH/MM3 (0-0.9); NEUT % 86.5 % (16.0-70.0); PLATELET COUNT 215 TH/MM3 (150-450); RED BLOOD COUNT 2.36 MIL/MM3 (4.50-5.90); RED CELL DISTRIBUTION WIDTH 14.9 % (11.6-17.2); WHITE BLOOD COUNT 16.9 TH/MM3 (4.0-11.0)
[2018-01-21 07:18] LABS: ALBUMIN 1.4 GM/DL (3.4-5.0); AST (GOT) 25 U/L (15-37); BICARBONATE 29.9 MEQ/L (21.0-32.0); BLOOD UREA NITROGEN 33 MG/DL (7-18); CALCIUM 7.4 MG/DL (8.5-10.1); CHLORIDE 103 MEQ/L (98-107); CREATININE 1.99 MG/DL (0.60-1.30); GLOMERULAR FILTRATION RATE 35 ML/MIN (>89); GLUCOSE,RANDOM 160 MG/DL (74-106); MAGNESIUM 1.9 MG/DL (1.5-2.5); SODIUM (NA) 140 MEQ/L (136-145)
[2018-01-21 07:23] LABS: ALKALINE PHOSPHATASE 305 U/L (45-117); ALT (GPT) LESS THAN 6 U/L (12-78); CALCIUM-PROTEIN CORRECTED 7.8 MG/DL (8.5-10.1); PHOSPHORUS 2.9 MG/DL (2.5-4.9); TOTAL BILIRUBIN ADULT 0.5 MG/DL (0.2-1.0); TOTAL PROTEIN 6.3 GM/DL (6.4-8.2)
[2018-01-21 08:54] LABS: BANDS 5 % (0-6); LYMPHOCYTES 1 % (9-44); METAMYELOCYTES 7 % (0-1); MONOCYTES 4 % (0-8); MYELOCYTES 1 % (0-0); NEUTROPHIL # MANUAL DIFF 15.9 TH/MM3 (1.8-7.7); POLYS (SEG NEUTROPHILS) 81 % (16-70)
[2018-01-21] MEDS: ASPIRIN 325 MG TAB PO SCH (09:00)
[2018-01-21] MEDS: LACTULOSE SYRUP 20 GM/30 ML CUP PO SCH (09:23)
[2018-01-21] MEDS: DOCUSATE SODIUM 50 MG/SENNA 8.6 MG TAB PO SCH ×2 (09:23→21:25)
[2018-01-21] MEDS: POLYETHYLENE GLYCOL 17 GM PKG PO SCH (09:23)
[2018-01-21] MEDS: PANTOPRAZOLE SOD 40 MG DELAYED RELEASE TAB PO SCH (09:23)
[2018-01-21] MEDS: SODIUM CHLORIDE 0.9% FLUSH 10 ML FLUSH IV FLUSH SCH ×2 (09:24→21:25)
[2018-01-21] MEDS: INSULIN DETEMIR 100 UNITS/ML VIAL SQ SCH (09:25)
[2018-01-21] MEDS: INSULIN ASPART SUPPLEMENTAL SCALE SQ SCH ×4 (09:25→21:00)
[2018-01-21] MEDS: MUPIROCIN 2% OINT 1 APPLIC/GM SYR EACH NARE SCH ×2 (09:25→21:25)
--- NOTE | 2018-01-21 09:35 | HHI.NPPN ---
Subjective Renal Failure: Acute Interval History He is non oliguric. Dialyzed yesterday. s/p bedside I&D of feet, right foot with sanguinous drainage. (Laura Quesada) Review of Systems General Constitutional: Fatigue (Laura Quesada) Heme-Lymph Heme-Lymph: Bleeding (Laura Quesada) Skin Skin Remarks wounds to bilateral feet. (Laura Quesada) Objective Data Data Vital Signs Date Time Temp Pulse Resp B/P (MAP) Pulse Ox O2 Delivery O2 Flow Rate FiO2 01/21/18 07:24 97 21 01/21/18 06:00 58 01/21/18 04:30 60 16 158/75 (102) 98 01/21/18 04:00 98.2 62 18 172/75 (107) 98 01/21/18 04:00 62 01/21/18 03:30 62 18 161/70 (100) 98 01/21/18 03:00 62 14 163/75 (104) 98 01/21/18 02:45 62 14 173/78 (109) 98 01/21/18 02:30 62 14 96 01/21/18 02:02 59 16 180/77 (111) 98 01/21/18 02:00 62 01/21/18 02:00 57 20 99 01/21/18 01:30 55 17 158/75 (102) 98 01/21/18 01:15 56 16 183/77 (112) 98 01/21/18 01:00 58 20 169/78 (108) 98 01/21/18 00:45 53 8 158/76 (103) 97 01/21/18 00:31 59 12 169/74 (105) 98 01/21/18 00:30 56 15 97 01/21/18 00:00 59 16 150/75 (100) 98 01/21/18 00:00 59 01/20/18 23:45 61 23 149/77 (101) 98 01/20/18 23:30 61 17 151/71 (97) 98 01/20/18 23:16 61 12 186/73 (110) 98 01/20/18 23:00 61 16 153/72 (99) 98 01/20/18 22:30 57 9 154/69 (97) 97 01/20/18 22:15 59 18 140/65 (90) 97 01/20/18 22:09 98 21 01/20/18 22:00 61 01/20/18 22:00 62 19 121/58 (79) 98 01/20/18 21:45 61 14 138/63 (88) 98 01/20/18 21:30 57 14 168/80 (109) 98 01/20/18 21:15 59 13 169/80 (109) 98 01/20/18 21:00 55 19 177/77 (110) 98 01/20/18 20:45 56 11 151/75 (100) 99 01/20/18 20:30 57 19 155/73 (100) 98 01/20/18 20:27 55 17 173/75 (107) 98 01/20/18 20:15 54 19 171/84 (113) 98 01/20/18 20:00 58 01/20/18 20:00 97.8 56 18 169/88 (115) 98 01/20/18 19:45 52 19 162/84 (110) 98 01/20/18 19:30 55 19 162/82 (108) 97 01/20/18 19:15 52 19 161/79 (106) 97 01/20/18 19:00 55 12 175/84 (114) 97 01/20/18 18:00 60 01/20/18 16:00 56 01/20/18 16:00 97.4 56 11 173/80 (111) 98 01/20/18 14:29 12 01/20/18 14:00 60 01/20/18 12:00 97.2 60 14 147/70 (95) 01/20/18 12:00 60 01/20/18 10:00 56 (Laura Quesada) -: 01/21/18 0545 01/21/18 0545 Imaging Last 72 hours Impressions Chest X-Ray 01/21/18 06 Signed Impressions: Service Date/Time: Sunday, January 21, 2018 03:50 - CONCLUSION: Normal examination. Right IJ Vas-Cath in good position Duncan Zaldivar MD Chest X-Ray 01/20/18 06 Signed Impressions: Service Date/Time: Saturday, January 20, 2018 04:15 - CONCLUSION: Right IJ Vas-Cath in good position. Heart is enlarged. Duncan Zaldivar MD Foot MRI 01/19/18 0000 Signed Impressions: Service Date/Time: Friday, January 19, 2018 12:36 - CONCLUSION: 1. 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 These findings are very similar to the prior study 2016. 2. Plantar cutaneous defect and extensive midfoot plantar superficial soft tissue edema extending into the plantar musculature. These findings are suspicious for infection in the proper clinical setting. Elongated adjacent more medial and distal plantar soft tissue ovoid fluid collection may represent a pseudo-bursa or abscess. More ill-defined edema is seen extending laterally to the base of the fifth metatarsal with likely early osteomyelitis at this location. This lateral extension is a new finding when compared to the prior study of 2016. 3. Posterior superficial soft tissue edema the heel with mild adjacent bony edema is very similar to the prior study with no definitive osteomyelitis. Ganga Luna MD Foot MRI 01/19/18 0000 Signed Impressions: Service Date/Time: Friday, January 19, 2018 12:36 - CONCLUSION: 1. Plantar cutaneous defect with underlying septated fluid signal extending into the area of plantar aponeurosis defect. This finding is much more prominent than on the comparison MRI and suggests soft tissue infection in the proper clinical setting. Defined rounded collection is not seen. The abnormal fluid signal extends to the plantar surface of the cuboid but no definitive evidence of osteomyelitis is seen. 2. Extensive arthritic findings and bony destructive findings in the midfoot and hindfoot similar to prior study of 2016 indicating severe neuropathic osteoarthropathy. Ganga Luna MD Abdomen X-Ray 01/19/18 0000 Signed Impressions: Service Date/Time: Friday, January 19, 2018 10:57 - CONCLUSION: Nonspecific bowel gas pattern. Mildly distended air-filled stomach. Ganga Luna MD Tubes & Lines: Vas-Cath, Almaraz Tubes & Lines Comment rectal tube (Laura Quesada) Physical Exam General Appearance: Comfortable Appearance Remarks disheveled, appears older than stated age (Laura Quesada) Ears & Nose Ears & Nose Exam: Tympanic Membranes Normal (Laura Quesada) Pulmonary Resp Exam: Breath Sounds Equal, No Distress (Laura Quesada) Cardiology CV Exam: Normal Sinus Rhythm, Good Perfusion (Laura Quesada) Gastrointestinal/Abdomen GI Exam: Soft, Non-Tender, Bowel Sounds Present (Laura Quesada) Musculoskeletal MS Exam: Joints Intact, Normal Tone, Unable to Ambulate (Laura Quesada) Integumentary Skin Exam: Warm, Dry Skin Remarks wound on bilateral feet/heals , dressings saturated with clotted blood (Laura Quesada) Extremeties Extremities Exam: Trace Edema (Laura Quesada) Neurologic Neuro Exam: Alert, Awake, Speech Clear, Moving All Extremities (Laura Quesada) Assessment/Plan Discussed Condition With: Patient Assessment Summary: BISHOP/Acute Renal Failure Problem List: (1) Acute worsening of stage 3 chronic kidney disease ICD Codes: N18.3 - Chronic kidney disease, stage 3 (moderate) Plan: Exact baseline is not known. Last year Creatinine was 1.7. BISHOP likely due to ATN from sepsis. He had dialysis Saturday and Saturday Urine output is adequate Repeat labs tomorrow, may not require additional dialysis. Monitor urine output and renal function. Maintain almaraz for one more day. Obtain AM labs. (2) Sepsis ICD Codes: A41.9 - Sepsis, unspecified organism Status: Resolved Plan: ID following. On Cefazolin, Source is likely infected leg wounds. 4/4 blood cultures positive, wound culture also positive for Group B strep (3) Hyponatremia ICD Codes: E87.1 - Hypo-osmolality and hyponatremia Status: Acute Plan: Stable Documented history of psychogenic polydipsia. However given ETOH abuse, need to consider beer potomania. Improved. (4) Anemia ICD Codes: D64.9 - Anemia, unspecified Status: Chronic Plan: Hb improved. Monitor for bleeding. (Laura Quesada) Problem List: (1) Acute worsening of stage 3 chronic kidney disease ICD Codes: N18.3 - Chronic kidney disease, stage 3 (moderate) Plan: Exact baseline is not known. Last year Creatinine was 1.7. BISHOP likely due to ATN from sepsis. He had dialysis Saturday and Saturday Urine output is adequate Repeat labs tomorrow, may not require additional dialysis. Monitor urine output and renal function. Maintain almaraz for one more day. Obtain AM labs. (2) Sepsis ICD Codes: A41.9 - Sepsis, unspecified organism Status: Resolved Plan: ID following. On Cefazolin, Source is likely infected leg wounds. 4/4 blood cultures positive, wound culture also positive for Group B strep (3) Hyponatremia ICD Codes: E87.1 - Hypo-osmolality and hyponatremia Status: Acute Plan: Stable Documented history of psychogenic polydipsia. However given ETOH abuse, need to consider beer potomania. Improved. (4) Anemia ICD Codes: D64.9 - Anemia, unspecified Status: Chronic Plan: Hb improved. Monitor for bleeding. Plan patient was seen and examined. Agree with above assessment and plan. (Shaun Mcmahon MD) Problem Qualifiers (1) Sepsis: Qualified Codes: A41.9 - Sepsis, unspecified organism Laura Quesada [facility] January 21, 2018 09:35 Shaun Mcmahon MD January 21, 2018 21:21
[2018-01-21] MEDS ORDERED: POTASSIUM CHLORIDE 20 MEQ CONTROLLED RELEASE TAB PO ONE (09:45)
[2018-01-21] MEDS ORDERED: SODIUM CHLOR 0.9% 250 ML INJ 250 ML IV ONE (09:45)
--- NOTE | 2018-01-21 10:11 | HHI.CCPN ---
Subjective Remarks/Hospital Course 57-year-old male presents from home with altered mental status. Patient has been altered and is oriented to person only. According to family, patient fell 2 days ago but we do not have any other information regarding this. Patient does have a history of chronic alcohol abuse but denies any alcohol today. 01/15: Late entry note patient seen a 7am. Patient lethargic but protecting airway. Patient is altered and oriented to self. Patient noted to be hyponatremic questionable if chronic. He continues on IV fluids NS 175 cc/hr. 01/16: Patient noted to be more lethargic today ABG performed severe metabolic acidosis noted IV fluids normal saline discontinued. She received 50 mEq of sodium bicarbonate IV push. Patient started on sodium bicarbonate infusion at 100 cc/hour. Antipsychotic medications Thorazine placed on hold all sedative type medications placed on hold. Patient was noted to have elevated creatinine nephrology consulted. Noted elevation in LFTs, hepatitis profile and liver ultrasound pending, likely shock liver secondary to hypotension due to septic shock. 01/17: The patient slightly more alert today, and combative. Continues on sodium bicarbonate infusion at 100 cc an hour with minimal improvement. INR noted to continue to be elevated GI has been consulted. Hepatitis panel is pending. Persistent leukocytosis WBC count elevation from 25-31 this a.m. thought to be possibly secondary to hydrocortisone. Initiated hydrocortisone weaning, expanded antibiotic coverage with Zosyn renally adjusted. Patient pancultured. patient received 1 dose of Lasix last evening with 1250 cc urine output in 12 hours. 01/18: Last evening Vas-Cath placed for initiation of dialysis. Creatinine increased this a.m. to 4.4 hemodialysis in progress. Patient's beta hydroxybutyrate was noted to be 4.24 last evening, insulin infusion initiated. Anion gap metabolic acidosis corrected. ABGs within normal limits. His a.m. patient alert, awake requesting something to drink. Formal swallow evaluation performed mechanical soft diet initiated. Patient was noted to have hepatitis C positive IgG, antibodies, continued workup underway. INR continues to be elevated at 3.1 this a.m.. Antibiotic coverage expanded yesterday with Zosyn WBC count downtrending. Patient hemodynamically stable hydrocortisone weaning initiated. Patient scheduled for MRI bilateral feet secondary to significant foot infection., 01/19: Afebrile. Bradycardic. More awake and alert. MRI foot pending. Resuming thioridazine 200 mg daily and hydroxyzine 50 mg twice daily. Adding as needed morphine and lorazepam for pain/agitation Subjective 01/20: Currently afebrile. Psychiatric medications resumed yesterday. Patient more appropriate. Hemodialysis ongoing today currently. Hepatitis genotype C not detected. 01/21: Patient had right foot debridement yesterday. Per nursing report, patient started bleeding from debridement site all night and this morning. Hemoglobin dropped almost 1 point. T-max of 98.2. Patient is awake, feels better, still complains of pain over the debridement site. He denies chest pain, shortness of breath, palpitations, abdominal pain. Objective Vital Signs Date Time Temp Pulse Resp B/P (MAP) Pulse Ox O2 Delivery O2 Flow Rate FiO2 01/21/18 08:00 62 01/21/18 08:00 97.6 9 138/65 (89) 97 01/21/18 07:24 21 01/18/18 07:16 Nasal Cannula 3.00 Intake and Output 01/21/18 01/21/18 01/21/18 07:59 15:59 23:59 Intake Total 770 ml Output Total 850 ml Balance -80 ml Result Diagram: 01/21/18 0545 01/21/18 0545 Imaging Last Impressions Chest X-Ray 01/20/18 0600 Signed Impressions: Service Date/Time: Saturday, January 20, 2018 04:15 - CONCLUSION: Right IJ Vas-Cath in good position. Heart is enlarged. Duncan Zaldivar MD Foot MRI 01/19/18 0000 Signed Impressions: Service Date/Time: Friday, January 19, 2018 12:36 - CONCLUSION: 1. 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 These findings are very similar to the prior study 2016. 2. Plantar cutaneous defect and extensive midfoot plantar superficial soft tissue edema extending into the plantar musculature. These findings are suspicious for infection in the proper clinical setting. Elongated adjacent more medial and distal plantar soft tissue ovoid fluid collection may represent a pseudo-bursa or abscess. More ill-defined edema is seen extending laterally to the base of the fifth metatarsal with likely early osteomyelitis at this location. This lateral extension is a new finding when compared to the prior study of 2016. 3. Posterior superficial soft tissue edema the heel with mild adjacent bony edema is very similar to the prior study with no definitive osteomyelitis. Ganga Luna MD Abdomen X-Ray 01/19/18 Signed Impressions: Service Date/Time: Friday, January 19, 2018 10:57 - CONCLUSION: Nonspecific bowel gas pattern. Mildly distended air-filled stomach. Ganga Luna MD Liver Ultrasound 01/16/18 Signed Impressions: Service Date/Time: January 16:59 - CONCLUSION: 1. Hepatomegaly and diffuse increased hepatic echogenicity without intrahepatic ductal dilatation or focal mass. Findings are most consistent with hepatic steatosis or medical liver disease. 2. Trace ascites. 3. Cholelithiasis with gallbladder wall prominence and trace pericholecystic fluid. These findings may be seen in the setting of chronic liver disease or ascites and significantly limit ultrasound evaluation for acute cholecystitis. If there is significant clinical concern regarding acute cholecystitis, HIDA scan may be performed to evaluate for cystic duct patency. Nam Tinajero MD Head CT 01/14/182000 Signed Impressions: Service Date/Time: Sunday, January 14, 2018 20:22 - CONCLUSION: Normal examination for a patient of this age. Marcio Hansen MD Lower Extremity CT 01/14/18 Signed Impressions: Service Date/Time: Sunday, January 14, 2018 23:38 - CONCLUSION: 1. CT findings characteristic of a severe Charcot foot in the mid and hindfoot with collapse of the plantar arch. Osteoarthritic changes of the first MTP joint 2. However, findings all appear to be chronic with no acute osseous injury Marquis Mcdonald MD Abdomen/Pelvis CT 01/14/18 Signed Impressions: Service Date/Time: Sunday, January 14, 2018 23:35 - CONCLUSION: 1. CT findings suggest volume overload or low oncotic pressures with some flank and mesenteric edema, gallbladder wall thickening and some free fluid in the pelvis. Heart size is somewhat prominent. 2. Bilateral symmetric gynecomastia. Nonspecific findings but can be associated with some chronic disease processes or medications. 3. Left periaortic borderline prominent lymph nodes. Again, nonspecific but may be reactive associated with the aforementioned mesenteric edema. 4. 5.7 cm periumbilical fatty hernia. There is now some fluid along the periphery of the hernia. This could be related to the generalized edema described above although fatty infarction could have a similar radiographic presentation. Please correlate with clinical symptomatology Marquis Mcdonald MD Objective Remarks GENERAL: Middle-aged gentleman, awake, ill-appearing. SKIN: Chronic venous stasis bilateral lower extremities HEAD: Atraumatic. Normocephalic. EYES: Pupils equal and reactive. Positive scleral icterus. No injection or drainage. ENT: No nasal bleeding or discharge. Mucous membranes pink and moist. No thrush. NECK: Trachea midline. Neck veins are nondistended. Right IJ HD catheter -site is clean. CARDIOVASCULAR: Regular heart sounds, no murmurs appreciated. RESPIRATORY: Clear breath sounds bilateral. No wheezes, good air entry. GASTROINTESTINAL: Abdomen soft, non-tender, nondistended. Bowel sounds are present. Hepatomegaly is appreciated. MUSCULOSKELETAL: Both feet covered with dressing. Bloody drainage from the right foot debridement site. NEUROLOGICAL: Awake and alert to person. Not to place or time.. No obvious cranial nerve deficits. Motor strength 5/5, moving extremities 4. A/P Assessment and Plan Neuro/Psych: Metabolic encephalopathy secondary to sepsis -resolving Schizophrenia Posttraumatic stress disorder CT brain on admission revealed no acute intracranial findings. 01/16 Hold antipsychotic meds (Thorazine) in the setting of lethargy 01/19 - resume Thioridazine 200 mg daily with hydroxyzine 50 mg/twice daily home medications for schizophrenia 01/18 patient alert and oriented x 2 now with bouts of confusion Acetaminophen 650 mg p.o. every 4 hours as needed fever/pain 1 through 5 Morphine sulfate 1 mg IV every 4 hours as needed pain 6 - 10 Lorazepam 1 mg IV every 4 hours as needed agitation Ziprasidone 10 mg IM every 12 hours as needed breakthrough agitation. Start date 01/19 maximum 3 days At home on hydrocodone/acetaminophen 10/325 1 tablet twice daily as needed pain Respiratory: Supplemental O2 to keep SPO2 above 92% Incentive spirometry while awake Albuterol/ipratropium aerosols every 2 hours as needed dyspnea hours as needed Cardiovascular: Septic shock -resolved History of hypertension Norepinephrine discontinued 01/15 0500 Maintain MAP greater than 65 Hold all antihypertensive medications in the setting of septic shock Hold aspirin 81 mg daily -due to bleed At home on amlodipine 10 mg p.o. daily for hypertension As needed Nitropaste/hydralazine for hypertension breakthrough Renal/FEN: Nonoliguric BISHOP Hypokalemia Maintain almaraz-for accurate I's and O's in a critically ill patient 01/16 Lasix 40 mg IV 1 dose 01/17 vascular cath placement 01/18 IHD 2 L off. Today's hemodialysis results pending Nephrology following-IHD per their recommendations Avoid nephrotoxic drugs Replete potassium FEN/GI: Hepatitis C antibody positive. Genotype not detected and viral load pending Elevated LFTs- Shock Liver Hepatomegaly Cholelithiasis Monitor CMP 01/16 ultrasound of the liver- Trace ascites. Findings most consistent with hepatic steatosis or liver disease. Cholelithiasis with gallbladder wall prominence but trace pericholecystic fluid Hepatitis C IgG antibody positive Follow-up formal swallow evaluation-ADA diet GI consulted appreciate recommendations Noted VICKIE positive. Breakdown currently pending Heme/ID: Normocytic anemia -hemoglobin slowly trending down Group A strep septicemia Diabetic foot infection and abscess status post drainage and debridement on 01 20 Septic shock Coagulopathy -INR remains elevated Transfused 2 units PRBC Obtain consent for transfusion -nursing communication order placed Transfuse 2 units FFP Check fibrinogen and H&H post transfusion Podiatry follow-up -informed by nursing staff the patient is bleeding from the procedure site Pressure dressing On cefazolin, followed by ID Pertinent microbiology 01/14 -blood cultures 2 beta strep group A 01/15 and 01/16 -wound -beta strep group A 01/16-01/17 -blood cultures 2 -no growth 01/17 -UA -no growth Endocrine: Diabetes mellitus Glycemic control Glipizide 10 mg p.o. twice daily home medication held MSK : Bilateral wound infection feet 01/16 Podiatry [id number] recommendations Rule out osteomyelitis PT evaluation and treat 01/16 Wound care following application per recommendations MRI L fot 01/19 results reviewed revealing plantar cutaneous defect with underlying septated fluid signal extending into the area of plantar aponeurosis defect. This finding is much more prominent than on the comparison MRI and suggests soft tissue infection in the proper clinical setting. Defined rounded collection is not seen. The abnormal fluid signal extends to the plantar surface of the cuboid but no definitive evidence of osteomyelitis is seen. Extensive arthritic findings and bony destructive findings in the midfoot and hindfoot similar to prior study of 2016 indicating severe neuropathic osteoarthropathy. 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 These findings are very similar to the prior study 2016. Plantar cutaneous defect and extensive midfoot plantar superficial soft tissue edema extending into the plantar musculature. These findings are suspicious for infection in the proper clinical setting. Elongated adjacent more medial and distal plantar soft tissue ovoid fluid collection may represent a pseudo-bursa or abscess. More ill-defined edema is seen extending laterally to the base of the fifth metatarsal with likely early osteomyelitis at this location. This lateral extension is a new finding when compared to the prior study of 2016. Posterior superficial soft tissue edema the heel with mild adjacent bony edema is very similar to the prior study with no definitive osteomyelitis. appreciate podiatry's put Prophylaxis: GI Prophylaxis Pantoprazole DVT Prophylaxis -- SCDs Teds and SCDs. Heparin SQ on hold in the setting of elevated INR Lines: Peripheral IVs 2. Central line if indicated Right IJ dialysis catheter Level 2 follow-up No family present at bedside. Valentin Mejia MD January 21, 2018 10:11
[2018-01-21 11:30] LABS: HEMATOCRIT 19.4 % (39.0-51.0); HEMOGLOBIN 6.4 GM/DL (13.0-17.0)
--- NOTE | 2018-01-21 12:53 | HHI.GIFU ---
Subjective Remarks Pt resting in bed Alert and oriented x 3 Denies any GI complaints at this time (Skylar Sykes) Objective Vitals I&O Vital Signs Date Time Temp Pulse Resp B/P (MAP) Pulse Ox O2 Delivery O2 Flow Rate FiO2 01/21/18 12:30 97.7 61 17 113/59 95 01/21/18 12:00 97.7 65 12 108/57 (74) 97 01/21/18 12:00 65 01/21/18 10:00 66 01/21/18 08:00 62 01/21/18 08:00 97.6 62 9 138/65 (89) 97 01/21/18 07:24 97 21 01/21/18 06:00 58 01/21/18 04:30 60 16 158/75 (102) 98 01/21/18 04:00 98.2 62 18 172/75 (107) 98 01/21/18 04:00 62 01/21/18 03:30 62 18 161/70 (100) 98 01/21/18 03:00 62 14 163/75 (104) 98 01/21/18 02:45 62 14 173/78 (109) 98 01/21/18 02:30 62 14 96 01/21/18 02:02 59 16 180/77 (111) 98 01/21/18 02:00 62 01/21/18 02:00 57 20 99 01/21/18 01:30 55 17 158/75 (102) 98 01/21/18 01:15 56 16 183/77 (112) 98 01/21/18 01:00 58 20 169/78 (108) 98 01/21/18 00:45 53 8 158/76 (103) 97 01/21/18 00:31 59 12 169/74 (105) 98 01/21/18 00:30 56 15 97 01/21/18 00:00 59 16 150/75 (100) 98 01/21/18 00:00 59 01/20/18 23:45 61 23 149/77 (101) 98 01/20/18 23:30 61 17 151/71 (97) 98 01/20/18 23:16 61 12 186/73 (110) 98 01/20/18 23:00 61 16 153/72 (99) 98 5/7/18 22:30 57 9 154/69 (97) 97 01/20/18 22:15 59 18 140/65 (90) 97 01/20/18 22:09 98 21 01/20/18 22:00 61 01/20/18 22:00 62 19 121/58 (79) 98 01/20/18 21:45 61 14 138/63 (88) 98 01/20/18 21:30 57 14 168/80 (109) 98 01/20/18 21:15 59 13 169/80 (109) 98 01/20/18 21:00 55 19 177/77 (110) 98 01/20/18 20:45 56 11 151/75 (100) 99 01/20/18 20:30 57 19 155/73 (100) 98 01/20/18 20:27 55 17 173/75 (107) 98 01/20/18 20:15 54 19 171/84 (113) 98 01/20/18 20:00 58 01/20/18 20:00 97.8 56 18 169/88 (115) 98 01/20/18 19:45 52 19 162/84 (110) 98 01/20/18 19:30 55 19 162/82 (108) 97 01/20/18 19:15 52 19 161/79 (106) 97 01/20/18 19:00 55 12 175/84 (114) 97 01/20/18 18:00 60 01/20/18 16:00 56 01/20/18 16:00 97.4 56 11 173/80 (111) 98 01/20/18 14:29 12 01/20/18 14:00 60 I/O 01/20/18 01/20/18 01/20/18 01/21/18 01/21/18 01/21/18 07:00 15:00 23:00 07:00 15:00 23:00 Intake Total 150 ml 50 ml 960 ml 770 ml 20 ml Output Total 1000 ml 1200 ml 650 ml 850 ml Balance -850 ml -1150 ml 310 ml -80 ml 20 ml Intake Oral 100 ml 960 ml 720 ml IV Total 50 ml 50 ml 50 ml Blood Product IV Normal Saline Flush 20 ml Output Urine Total 1000 ml 650 ml 650 ml Stool Total 200 ml Hemodialysis 1200 ml # Bowel Movements 5 Laboratory Laboratory Tests Test 01/21/18 05:45 01/21/18 10:50 White Blood Count 16.9 Red Blood Count 2.36 Hemoglobin 7.0 6.4 Hematocrit 21.3 19.4 Mean Corpuscular Volume 90.4 Mean Corpuscular Hemoglobin 29.7 Mean Corpuscular Hemoglobin Concent 32.9 Red Cell Distribution Width 14.9 Platelet Count 215 Mean Platelet Volume 9.7 Neutrophils (%) (Auto) 86.5 Lymphocytes (%) (Auto) 7.5 Monocytes (%) (Auto) 4.9 Eosinophils (%) (Auto) 1.0 Basophils (%) (Auto) 0.1 Neutrophils # (Auto) 14.6 Lymphocytes # (Auto) 1.3 Monocytes # (Auto) 0.8 Eosinophils # (Auto) 0.2 Basophils # (Auto) 0.0 CBC Comment AUTO DIFF Differential Total Cells Counted 100 Neutrophils % (Manual) 81 Band Neutrophils % 5 Lymphocytes % 1 Monocytes % 4 Eosinophils % 1 Neutrophils # (Manual) 15.9 Metamyelocytes 7 Myelocytes 1 Differential Comment FINAL DIFF MANUAL Platelet Estimate NORMAL Platelet Morphology Comment ENLARGED Basophilic Stippling FAINT Prothrombin Time 14.7 Prothromb Time International Ratio 1.5 Activated Partial Thromboplast Time 34.5 Blood Urea Nitrogen 33 Creatinine 1.99 Random Glucose 160 Total Protein 6.3 Albumin 1.4 Calcium Level 7.4 Phosphorus Level 2.9 Magnesium Level 1.9 Alkaline Phosphatase 305 Aspartate Amino Transf (AST/SGOT) 25 Alanine Aminotransferase (ALT/SGPT) LESS THAN 6 Total Bilirubin 0.5 Sodium Level 140 Potassium Level 3.2 Chloride Level 103 Carbon Dioxide Level 29.9 Anion Gap 7 Estimat Glomerular Filtration Rate 35 Protein Corrected Calcium 7.8 Date/Time Source Procedure Growth Status 01/17/18 10:55 Blood Peripheral Aerobic Blood Culture - Preliminary NO GROWTH IN 4 DAYS Resulted 01/17/18 10:55 Blood Peripheral Anaerobic Blood Culture - Preliminary NO GROWTH IN 4 DAYS Resulted 01/17/18 13:15 Urine Catheterized Urine Urine Culture - Final NO GROWTH IN 48 HOURS. Complete 01/16/18 15:00 Wound Foot Gram Stain - Final Complete 01/16/18 15:00 Wound Culture - Final Group A Beta Strep Complete Imaging Last Impressions Chest X-Ray 01/21/18 0600 Signed Impressions: Service Date/Time: Sunday, January 21, 2018 03:50 - CONCLUSION: Normal examination. Right IJ Vas-Cath in good position Duncan Zaldivar MD Foot MRI 01/19/18 Signed Impressions: Service Date/Time: Friday, January 19, 2018 12:36 - CONCLUSION: 1. 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 These findings are very similar to the prior study 2016. 2. Plantar cutaneous defect and extensive midfoot plantar superficial soft tissue edema extending into the plantar musculature. These findings are suspicious for infection in the proper clinical setting. Elongated adjacent more medial and distal plantar soft tissue ovoid fluid collection may represent a pseudo-bursa or abscess. More ill-defined edema is seen extending laterally to the base of the fifth metatarsal with likely early osteomyelitis at this location. This lateral extension is a new finding when compared to the prior study of 2016. 3. Posterior superficial soft tissue edema the heel with mild adjacent bony edema is very similar to the prior study with no definitive osteomyelitis. Ganga Luna MD Abdomen X-Ray 01/19/18 Signed Impressions: Service Date/Time: Friday, January 19, 2018 10:57 - CONCLUSION: Nonspecific bowel gas pattern. Mildly distended air-filled stomach. Ganga Luna MD Liver Ultrasound 01/16/18 Signed Impressions: Service Date/Time: January 16:59 - CONCLUSION: 1. Hepatomegaly and diffuse increased hepatic echogenicity without intrahepatic ductal dilatation or focal mass. Findings are most consistent with hepatic steatosis or medical liver disease. 2. Trace ascites. 3. Cholelithiasis with gallbladder wall prominence and trace pericholecystic fluid. These findings may be seen in the setting of chronic liver disease or ascites and significantly limit ultrasound evaluation for acute cholecystitis. If there is significant clinical concern regarding acute cholecystitis, HIDA scan may be performed to evaluate for cystic duct patency. Nam Tinajero MD Head CT 01/14/182000 Signed Impressions: Service Date/Time: Sunday, January 14, 2018 20:22 - CONCLUSION: Normal examination for a patient of this age. Marcio Hansen MD Lower Extremity CT 01/14/18 Signed Impressions: Service Date/Time: Sunday, January 14, 2018 23:38 - CONCLUSION: 1. CT findings characteristic of a severe Charcot foot in the mid and hindfoot with collapse of the plantar arch. Osteoarthritic changes of the first MTP joint 2. However, findings all appear to be chronic with no acute osseous injury Marquis Mcdonald MD Abdomen/Pelvis CT 01/14/18 0000 Signed Impressions: Service Date/Time: Sunday, January 14, 2018 23:35 - CONCLUSION: 1. CT findings suggest volume overload or low oncotic pressures with some flank and mesenteric edema, gallbladder wall thickening and some free fluid in the pelvis. Heart size is somewhat prominent. 2. Bilateral symmetric gynecomastia. Nonspecific findings but can be associated with some chronic disease processes or medications. 3. Left periaortic borderline prominent lymph nodes. Again, nonspecific but may be reactive associated with the aforementioned mesenteric edema. 4. 5.7 cm periumbilical fatty hernia. There is now some fluid along the periphery of the hernia. This could be related to the generalized edema described above although fatty infarction could have a similar radiographic presentation. Please correlate with clinical symptomatology Marquis Mcdonald MD Physical Exam HEENT: Normocephalic; atraumatic CHEST: Even/unlabored CARDIAC: RRR ABDOMEN: Soft, nondistended, nontender; bowel sounds active [employer]: Alert and oriented x 3 (Skylar Sykes) Assessment and Plan Plan Assessment: - Elevated LFTs- previously worked up by our service for same in February 2017- Hepatitis panel done at that time was negative, noted to be likely secondary to medication. February 2017 labs: AST-617 ALT-311 Alk phos-618 T bili-0.8 Iron-15 TIBC-157 %sat-9.6 Ferritin-245 Ceruloplasmin-43 Q7J-232 Currently: AST-107 ALT-85 Alk phos-386 T bili-1 Coagulopathy (INR 2.1) Hypoalbuminemia (albumin 1.2) Hepatitis panel revealed positive Hep C IgG antibody Unable to obtain social history including alcohol and illicit drugs. No visible tattoos on my exam. CT abdomen and pelvis W/O IV contrast (01/14) --> CT findings suggest volume overload or low oncotic pressures with some flank and mesenteric edema, gallbladder wall thickening and some free fluid in the pelvis. Heart size is somewhat prominent. Bilateral symmetric gynecomastia. Nonspecific findings but can be associated with some chronic disease processes or medications. Left periaortic borderline prominent lymph nodes. Again, nonspecific but may be reactive associated with the aforementioned mesenteric edema. 5.7 cm periumbilical fatty hernia. There is now some fluid along the periphery of the hernia. This could be related to the generalized edema described above although fatty infarction could have a similar radiographic presentation. Please correlate with clinical symptomatology US liver (01/16) --> Hepatomegaly and diffuse increased hepatic echogenicity without intrahepatic ductal dilatation or focal mass. Findings are most consistent with hepatic steatosis or medical liver disease. Trace ascites. Cholelithiasis with gallbladder wall prominence and trace pericholecystic fluid. These findings may be seen in the setting of chronic liver disease or ascites and significantly limit ultrasound evaluation for acute cholecystitis. If there is significant clinical concern regarding acute cholecystitis, HIDA scan may be performed to evaluate for cystic duct patency. - Anemia- previous work up by our service in February 2017 --> EGD and colonoscopy --> Esophagus was normal. Food residue in the entire examined stomach. Medium sized ulcer in the gastric antrum. Significant amount of stool was present throughout the entire examined colon. Retroflexion not performed. Incomplete exam due to poor prep. Barium enema revealed an extremely redundant colon. No definite mucosa abnormality was identified, but only partial visualization of the cecum. - Leukocytosis with elevated lactic acid on arrival and febrile- Infection to LLE- on Zosyn and Cefazolin - BISHOP on CKD Differentials for elevated LFTs: Hepatitis C vs shocked liver secondary to hypotension from sepsis (lowest BP documented on 01/14 was 85/53) vs hepatic congestion (01/18) Pt awake today and answering questions appropriately. Denies any GI symptoms at this time. He is now on hemodialysis. Drop in H/H ntoed overnight, normocytic, likely multifactorial- no obvious GIB LFTs with some improvement today, AST-64 ALT-52 Alk phos-319 T bili-0.6 (01/19) Pt resting in bed, confused during my exam, currently in soft wrist restraints. Drop in H/H noted from 9.1/27.3 yesterday to 7.8/23.4 today, likely multifactorial, no obvious GIB. Increase in INR currently 4. Increase in alk phos, LFTs continue to trend down. Liver work up still pending. (01/20) getting dialysis. LFTs trending down. INR 1.7 today. liver w/u so far unremarkable other than hep c. hcv quant and genotype are pending. ALP isoenzymes are pending. (01/21) Pt much more alert and oriented today. Denies any GI complaints at this time. LFTs trending down. Alk phos iso enzymes still pending. Hep C genotype undetectable, ? cleared without treatment. Viral load pending. Drop in H/H over night. Per RN pt had his feet debrided yesterday and has significant bleeding from his feet over night and early this morning. Now with pressure dressings and no further reports of bleeding. Pt had dialysis yesterday. Plan: LFTs trending down, Hep C genotype undetectable Advised pt to avoid ETOH Avoid hepatotoxins GI will sign off, please reconsult as needed Pt has been seen and examined by myself and and this note is on his behalf (Skylar Sykes) Physician Comments Seen and examined with JESSICA, doing well. Outp fu for hep c treatment recs. Will sign off, thank you (Elizabeth Obando MD) Skylar Sykes January 21, 2018 12:53 Elizabeth Obando MD January 21, 2018 17:43
--- NOTE | 2018-01-21 15:32 | HHI.IDPN ---
Note Infectious Disease Note Patient awake and alert. Debridement of both feet yesterday evening. Has continued to have bleeding from the wounds after the procedure. His hemoglobin dropped significantly overnight. Receiving blood transfusion. Afebrile. Notes that he has pain in the joints of the upper and lower extremities. Blood cultures group A beta strep in 4 bottles. Wound culture from the foot has group A beta strep. Admitted with altered mental status. In the emergency department, his blood pressure was 85/53. The white blood cell count was elevated at 27 and lactic acid level of 3.1. PAST MEDICAL HISTORY: 1. Hypertension. 2. Anxiety/depression. 3. Hiatal hernia. 4. Schizophrenia. 5. Diabetes mellitus. 6. Charcot deformity of the feet. 7. A left pelvic fracture. 8. History of abscess of the right foot. ALLERGIES: VANCOMYCIN, LEVAQUIN, HALOPERIDOL, FLUPHENAZINE, CODEINE. MEDICATIONS: Current Medications Medications (Trade) Dose Ordered Sig/Portia Route PRN Reason Start Time Stop Time Status Last Admin Dose Admin Miscellaneous Information ([facility] [place] [facility] [place] 1 [id number] XX 01/14/18 22:45 Chlorhexidine Gluconate (Chlorhexidine 2% Cloth) Taper DAILY@04 TOP 01/15/18 04:00 01/11/19 03:59 01/19/18 02:50 Chlorhexidine Gluconate (Chlorhexidine 2% Cloth) 3 pack UNSCH PRN TOP HYGIENIC CARE 01/14/18 22:45 Acetaminophen (Tylenol) 650 mg Q4H PRN PO fever or pain 1-5 01/15/18 01:00 Aspirin (Aspirin) 325 mg DAILY PO 01/15/18 09:00 01/20/18 09:30 Flumazenil (Romazicon Inj) 0.2 mg Q1M PRN IV PUSH SEE LABEL COMMENTS 01/16/18 01:00 Lorazepam (Ativan) 1 mg Q4H PRN PO CIWA 8 - 10 01/16/18 01:00 Future Hold Lorazepam (Ativan Inj) 1 mg Q4H PRN IV PUSH CIWA 8 - 10 01/16/18 01:00 Future Hold Lorazepam (Ativan) 2 mg Q2H PRN PO CIWA 11-14 01/16/18 01:00 Future Hold Lorazepam (Ativan Inj) 2 mg Q2H PRN IV PUSH CIWA 11-14 01/16/18 01:00 Future Hold 01/16/18 09:08 Lorazepam (Ativan Inj) 2 mg Q1H PRN IV PUSH CIWA 15-20 01/16/18 01:00 Future Hold Lorazepam (Ativan Inj) 2 mg Q15M PRN IV PUSH CIWA > 20 01/16/18 01:00 Future Hold Cefazolin Sodium/ Dextrose 50 ml @ 100 mls/hr Q12H IV 01/16/18 15:00 01/21/18 03:19 Sodium Chloride 1,000 ml @ 0 mls/hr Q0M PRN OTHER For Prime & Rinse Back 01/17/18 17:00 01/20/18 11:15 Heparin Sodium (Porcine) (Heparin Inj) 8,000 units UNSCH PRN IV FLUSH WITH DIALYSIS 01/17/18 17:00 Sodium Chloride 1,000 ml @ 200 mls/hr Q5H PRN IV WITH DIALYSIS 01/17/18 17:00 01/18/18 09:14 Sodium Chloride 1,000 ml @ 0 mls/hr Q0M PRN OTHER WITH DIALYSIS 01/17/18 17:00 Mannitol (Mannitol Inj) 12.5 gm UNSCH PRN IV WITH DIALYSIS 01/17/18 17:00 Albumin Human 100 ml @ 60 mls/hr UNSCH PRN IV WITH DIALYSIS 01/17/18 17:00 Sodium Chloride (NS Flush) 5 ml UNSCH PRN IV FLUSH WITH DIALYSIS 01/17/18 17:00 Heparin Sodium (Porcine) (Heparin Inj) UNSCH PRN .XX WITH DIALYSIS 01/17/18 17:00 01/20/18 11:15 Gentamicin Sulfate (Gentamicin Inj) 20 mg UNSCH PRN OTHER WITH DIALYSIS 01/17/18 17:00 01/20/18 11:15 Ondansetron HCl (Zofran Inj) 4 mg UNSCH PRN IV PUSH WITH DIALYSIS 01/17/18 17:00 Acetaminophen (Tylenol) 650 mg UNSCH PRN PO for headach, pain, temp > 101F 01/17/18 17:00 Diphenhydramine HCl (Benadryl) 25 mg UNSCH PRN PO for hives/itching/anaphylaxis 01/17/18 17:00 Nitroglycerin (Nitrostat Sl) 0.4 mg UNSCH PRN SL CHEST PAIN 01/17/18 17:00 Clonidine (Catapres) 0.1 mg UNSCH PRN PO for BP > 180/100 X 2 readings 01/17/18 17:00 Gelatin (Gelfoam 12 Mm/7 Mm Top) 1 foam UNSCH PRN TOP SEE LABEL COMMENTS 01/17/18 17:00 Insulin Aspart (NovoLOG SUPPLEMENTAL SCALE) 1 ACHS SLIDING SCALE SQ 01/19/18 12:00 01/21/18 12:22 Dextrose (D50w (Vial) Inj) 50 ml UNSCH PRN IV PUSH HYPOGLYCEMIA-SEE COMMENTS 01/19/18 09:15 Glucagon (Glucagon Inj) 1 mg UNSCH PRN OTHER HYPOGLYCEMIA-SEE COMMENTS 01/19/18 09:15 Mupirocin (Bactroban Nasal 2% Oint) 1 applic Taper BID EACH NARE 01/19/18 21:00 01/15/19 20:59 01/21/18 09:25 Hydroxyzine Pamoate (Vistaril) 50 mg BID PO 01/19/18 10:00 01/21/18 09:23 Patient Own Medication PT OWN MED: THIORIDAZINE DOSE 10... DAILY PO 01/20/18 09:00 Future Hold Morphine Sulfate (Morphine Inj) 1 mg Q4H PRN IV PUSH pain 6-10 01/19/18 10:00 01/21/18 11:49 Lorazepam (Ativan Inj) 1 mg Q4H PRN IV PUSH Agitation 01/19/18 09:15 01/20/18 01:04 Ziprasidone (Geodon Inj) 10 mg Q12H PRN IM AGITATION, breakthrough 01/19/18 09:15 01/22/18 09:14 Sodium Chloride (NS Flush) 2 ml UNSCH PRN IV FLUSH FLUSH AFTER USING IV ACCESS 01/19/18 09:15 Sodium Chloride (NS Flush) 2 ml BID IV FLUSH 01/19/18 21:00 01/21/18 09:24 Pantoprazole Sodium (Protonix) 40 mg DAILY PO 01/20/18 09:00 01/21/18 09:23 Ondansetron HCl (Zofran Inj) 4 mg Q6H PRN IV PUSH NAUSEA OR VOMITING 01/19/18 09:15 Albuterol Sulfate (Albuterol Neb) 2.5 mg Q2HR NEB PRN INH SOB/WHEEZING 01/19/18 09:15 Senna/Docusate Sodium (Lizz-Colace) 1 tab BID PO 01/19/18 21:00 01/21/18 09:23 Bisacodyl (Dulcolax Supp) 10 mg DAILY PRN RECTAL SEVERE CONSITIPATION 01/19/18 09:15 Lactulose (Lactulose Liq) 30 ml DAILY PO 01/20/18 09:00 01/21/18 09:23 Polyethylene Glycol (Miralax) 17 gm DAILY PO 01/20/18 09:00 01/21/18 09:23 Insulin Detemir (Levemir Inj) 8 units DAILY SQ 01/20/18 09:00 01/21/18 09:25 Hydralazine HCl (Apresoline Inj) 10 mg Q1H PRN IV PUSH SBP>160, DBP>90 01/19/18 09:45 01/20/18 21:35 Nitroglycerin (Nitroglycerin 2% Oint) 2 inch Q6H PRN TOPICAL SBP>160, DBP>90 01/19/18 09:45 Sodium Chloride 250 ml @ 15 mls/hr ONCE ONCE IV 01/21/18 09:45 01/22/18 02:24 01/21/18 12:03 SOCIAL HISTORY: Positive alcohol use reportedly daily. No tobacco. No illicit drugs. Objective: Vital Signs Date Time Temp Pulse Resp B/P (MAP) Pulse Ox O2 Delivery O2 Flow Rate FiO2 01/21/18 14:54 97.9 66 12 120/56 99 01/21/18 14:39 97.6 65 20 120/56 100 01/21/18 14:00 62 01/21/18 14:00 97.8 63 10 115/57 99 01/21/18 13:45 97.8 63 10 108/59 98 01/21/18 12:45 97.6 61 10 118/56 99 01/21/18 12:30 97.7 61 17 113/59 95 01/21/18 12:00 97.7 65 12 108/57 (74) 97 01/21/18 12:00 65 01/21/18 11:54 12 01/21/18 10:00 66 01/21/18 08:00 62 01/21/18 08:00 97.6 62 9 138/65 (89) 97 01/21/18 07:24 97 21 01/21/18 06:00 58 01/21/18 04:30 60 16 158/75 (102) 98 01/21/18 04:00 98.2 62 18 172/75 (107) 98 01/21/18 04:00 62 01/21/18 03:30 62 18 161/70 (100) 98 01/21/18 03:00 62 14 163/75 (104) 98 01/21/18 02:45 62 14 173/78 (109) 98 01/21/18 02:30 62 14 96 01/21/18 02:02 59 16 180/77 (111) 98 01/21/18 02:00 62 01/21/18 02:00 57 20 99 01/21/18 01:30 55 17 158/75 (102) 98 01/21/18 01:15 56 16 183/77 (112) 98 01/21/18 01:00 58 20 169/78 (108) 98 01/21/18 00:45 53 8 158/76 (103) 97 01/21/18 00:31 59 12 169/74 (105) 98 01/21/18 00:30 56 15 97 01/21/18 00:00 59 16 150/75 (100) 98 01/21/18 00:00 59 01/20/18 23:45 61 23 149/77 (101) 98 01/20/18 23:30 61 17 151/71 (97) 98 01/20/18 23:16 61 12 186/73 (110) 98 01/20/18 23:00 61 16 153/72 (99) 98 01/20/18 22:30 57 9 154/69 (97) 97 01/20/18 22:15 59 18 140/65 (90) 97 01/20/18 22:09 98 21 01/20/18 22:00 61 01/20/18 22:00 62 19 121/58 (79) 98 01/20/18 21:45 61 14 138/63 (88) 98 01/20/18 21:30 57 14 168/80 (109) 98 01/20/18 21:15 59 13 169/80 (109) 98 01/20/18 21:00 55 19 177/77 (110) 98 01/20/18 20:45 56 11 151/75 (100) 99 01/20/18 20:30 57 19 155/73 (100) 98 01/20/18 20:27 55 17 173/75 (107) 98 01/20/18 20:15 54 19 171/84 (113) 98 01/20/18 20:00 58 01/20/18 20:00 97.8 56 18 169/88 (115) 98 01/20/18 19:45 52 19 162/84 (110) 98 01/20/18 19:30 55 19 162/82 (108) 97 01/20/18 19:15 52 19 161/79 (106) 97 01/20/18 19:00 55 12 175/84 (114) 97 01/20/18 18:00 60 01/20/18 16:00 56 01/20/18 16:00 97.4 56 11 173/80 (111) 98 Laboratory Tests Test 01/20/18 04:32 01/21/18 05:45 01/21/18 10:50 White Blood Count 18.0 TH/MM3 16.9 TH/MM3 Red Blood Count 2.67 MIL/MM3 2.36 MIL/MM3 Hemoglobin 7.9 GM/DL 7.0 GM/DL 6.4 GM/DL Hematocrit 23.7 % 21.3 % 19.4 % Mean Corpuscular Volume 88.7 FL 90.4 FL Mean Corpuscular Hemoglobin 29.6 PG 29.7 PG Mean Corpuscular Hemoglobin Concent 33.3 % 32.9 % Red Cell Distribution Width 14.9 % 14.9 % Platelet Count 199 TH/MM3 215 TH/MM3 Mean Platelet Volume 9.6 FL 9.7 FL Neutrophils (%) (Auto) 88.6 % 86.5 % Lymphocytes (%) (Auto) 7.9 % 7.5 % Monocytes (%) (Auto) 2.2 % 4.9 % Eosinophils (%) (Auto) 0.7 % 1.0 % Basophils (%) (Auto) 0.6 % 0.1 % Neutrophils # (Auto) 16.0 TH/MM3 14.6 TH/MM3 Lymphocytes # (Auto) 1.4 TH/MM3 1.3 TH/MM3 Monocytes # (Auto) 0.4 TH/MM3 0.8 TH/MM3 Eosinophils # (Auto) 0.1 TH/MM3 0.2 TH/MM3 Basophils # (Auto) 0.1 TH/MM3 0.0 TH/MM3 CBC Comment AUTO DIFF AUTO DIFF Differential Total Cells Counted 100 100 Neutrophils % (Manual) 77 % 81 % Band Neutrophils % 9 % 5 % Lymphocytes % 4 % 1 % Monocytes % 6 % 4 % Eosinophils % 1 % 1 % Neutrophils # (Manual) 16.0 TH/MM3 15.9 TH/MM3 Metamyelocytes 2 % 7 % Myelocytes 1 % 1 % Differential Comment FINAL DIFF MANUAL FINAL DIFF MANUAL Toxic Granulation 2+ Platelet Estimate NORMAL NORMAL Platelet Morphology Comment ENLARGED ENLARGED Basophilic Stippling FAINT Laboratory Tests Test 01/20/18 04:32 01/21/18 05:45 Blood Urea Nitrogen 63 MG/DL 33 MG/DL Creatinine 2.91 MG/DL 1.99 MG/DL Random Glucose 116 MG/DL 160 MG/DL Total Protein 7.0 GM/DL 6.3 GM/DL Albumin 1.5 GM/DL 1.4 GM/DL Calcium Level 7.6 MG/DL 7.4 MG/DL Phosphorus Level 3.4 MG/DL 2.9 MG/DL Magnesium Level 2.2 MG/DL 1.9 MG/DL Alkaline Phosphatase 362 U/L 305 U/L Aspartate Amino Transf (AST/SGOT) 38 U/L 25 U/L Alanine Aminotransferase (ALT/SGPT) 9 U/L LESS THAN 6 U/L Lactate Dehydrogenase 213 U/L Total Bilirubin 0.6 MG/DL 0.5 MG/DL Sodium Level 142 MEQ/L 140 MEQ/L Potassium Level 3.1 MEQ/L 3.2 MEQ/L Chloride Level 107 MEQ/L 103 MEQ/L Carbon Dioxide Level 27.3 MEQ/L 29.9 MEQ/L Anion Gap 8 MEQ/L 7 MEQ/L Estimat Glomerular Filtration Rate 23 ML/MIN 35 ML/MIN Protein Corrected Calcium 7.8 MG/DL Imaging: Chest X-Ray 01/20/18 0600 Signed Impressions: Service Date/Time: Saturday, January 20, 2018 04:15 - CONCLUSION: Right IJ Vas-Cath in good position. Heart is enlarged. Duncan Zaldivar MD Foot MRI 01/19/18 0000 Signed Impressions: Service Date/Time: Friday, January 19, 2018 12:36 - CONCLUSION: 1. 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 These findings are very similar to the prior study 2016. 2. Plantar cutaneous defect and extensive midfoot plantar superficial soft tissue edema extending into the plantar musculature. These findings are suspicious for infection in the proper clinical setting. Elongated adjacent more medial and distal plantar soft tissue ovoid fluid collection may represent a pseudo-bursa or abscess. More ill-defined edema is seen extending laterally to the base of the fifth metatarsal with likely early osteomyelitis at this location. This lateral extension is a new finding when compared to the prior study of 2016. 3. Posterior superficial soft tissue edema the heel with mild adjacent bony edema is very similar to the prior study with no definitive osteomyelitis. Ganga Luna MD Foot MRI 01/19/18 0000 Signed Impressions: Service Date/Time: Friday, January 19, 2018 12:36 - CONCLUSION: 1. Plantar cutaneous defect with underlying septated fluid signal extending into the area of plantar aponeurosis defect. This finding is much more prominent than on the comparison MRI and suggests soft tissue infection in the proper clinical setting. Defined rounded collection is not seen. The abnormal fluid signal extends to the plantar surface of the cuboid but no definitive evidence of osteomyelitis is seen. 2. Extensive arthritic findings and bony destructive findings in the midfoot and hindfoot similar to prior study of 2016 indicating severe neuropathic osteoarthropathy. Ganga Luna MD Abdomen X-Ray 01/19/18 Signed Impressions: Service Date/Time: Friday, January 19, 2018 10:57 - CONCLUSION: Nonspecific bowel gas pattern. Mildly distended air-filled stomach. Ganga Luna MD Head CT 01/14/182000 Signed Impressions: Service Date/Time: Sunday, January 14, 2018 20:22 - CONCLUSION: Normal examination for a patient of this age. Marcio Hansen MD Chest X-Ray 01/14/182000 Signed Impressions: Service Date/Time: Sunday, January 14, 2018 20:25 - CONCLUSION: 1. Mild cardiomegaly. No focal consolidation or effusion. Marcio Hansen MD Lower Extremity CT 01/14/18 Signed Impressions: Service Date/Time: Sunday, January 14, 2018 23:38 - CONCLUSION: 1. CT findings characteristic of a severe Charcot foot in the mid and hindfoot with collapse of the plantar arch. Osteoarthritic changes of the first MTP joint 2. However, findings all appear to be chronic with no acute osseous injury Marquis Mcdonald MD Abdomen/Pelvis CT 01/14/18 0000 Signed Impressions: Service Date/Time: Sunday, January 14, 2018 23:35 - CONCLUSION: 1. CT findings suggest volume overload or low oncotic pressures with some flank and mesenteric edema, gallbladder wall thickening and some free fluid in the pelvis. Heart size is somewhat prominent. 2. Bilateral symmetric gynecomastia. Nonspecific findings but can be associated with some chronic disease processes or medications. 3. Left periaortic borderline prominent lymph nodes. Again, nonspecific but may be reactive associated with the aforementioned mesenteric edema. 4. 5.7 cm periumbilical fatty hernia. There is now some fluid along the periphery of the hernia. This could be related to the generalized edema described above although fatty infarction could have a similar radiographic presentation. Please correlate with clinical symptomatology Marquis Mcdonald MD PHYSICAL EXAMINATION: GENERAL: Patient awake and alert. HEENT: Pupils constricted, but reactive to light. The sclerae is pale. Oropharynx, dry mucosa. No lesions. No thrush. NECK: Supple without adenopathy or swelling. LUNGS: Clear breath sounds. HEART: Distant S1 and S2. No murmurs, rubs or gallops. ABDOMEN: Bowel sounds present, soft, mildly distended, protruding umbilical abdominal hernia. EXTREMITIES: No clubbing. No cyanosis. Bloody drainage at both feet plantar aspect post debridement. 1+ edema of the legs. SKIN: No diffuse rash. NEUROLOGIC: No gross focal finding. PSYCHIATRIC: Calm. IMPRESSION: 1. Severe sepsis. 2. Bacteremia due to group A beta strep. 3. Leukocytosis secondary to sepsis. 4. Source of sepsis - diabetic foot infection due to group A strep. 5. Acute renal failure. 6. Charcot's joint and soft tissue infection of both feet. RECOMMENDATIONS: 1. Continue Cefazolin. 2. Continue to monitor white blood cell count. 3. Follow clinical status. Sen Washington MD January 21, 2018 15:32
[2018-01-21] MEDS: SODIUM CHLORIDE 0.9% FLUSH 10 ML FLUSH IV FLUSH PRN (21:42)
[2018-01-21 22:25] LABS: AUTOMATED NEUTROPHIL # 16.7 TH/MM3 (1.8-7.7); BASOPHIL # 0.1 TH/MM3 (0-0.2); BASOPHIL % 0.4 % (0.0-2.0); EOSINOPHIL # 0.3 TH/MM3 (0-0.4); EOSINOPHIL % 1.3 % (0.0-4.0); HEMATOCRIT 22.3 % (39.0-51.0); HEMOGLOBIN 7.5 GM/DL (13.0-17.0); LYMPH % 6.4 % (9.0-44.0); LYMPHOCYTE # 1.2 TH/MM3 (1.0-4.8); MEAN CELL VOLUME 87.7 FL (80.0-100.0); MEAN CORPUSCULAR HEMOGLOBIN 29.5 PG (27.0-34.0); MEAN CORPUSCULAR HGB CONC 33.6 % (32.0-36.0); MEAN PLATELET VOLUME 9.2 FL (7.0-11.0); MONO % 3.8 % (0.0-8.0); MONOCYTE # 0.7 TH/MM3 (0-0.9); NEUT % 88.1 % (16.0-70.0); PLATELET COUNT 221 TH/MM3 (150-450); RED BLOOD COUNT 2.54 MIL/MM3 (4.50-5.90); RED CELL DISTRIBUTION WIDTH 15.3 % (11.6-17.2)
[2018-01-21 22:46] LABS: INTERNATIONAL NORMALIZED RATIO 1.4 RATIO; PROTHROMBIN TIME - PATIENT 13.7 SEC (9.8-11.6)
[2018-01-21 23:26] LABS: BANDS 3 % (0-6); LYMPHOCYTES 5 % (9-44); METAMYELOCYTES 1 % (0-1); MONOCYTES 3 % (0-8); MYELOCYTES 3 % (0-0); NEUTROPHIL # MANUAL DIFF 17.5 TH/MM3 (1.8-7.7); POLYS (SEG NEUTROPHILS) 84 % (16-70); PROMYELOCYTES 1 % (0-0)
[2018-01-21 23:28] LABS: TOXIC GRANULATION 1+ (NORMAL); TOXIC VACUOLATION PRESENT (NONE SEEN)
--- NOTE | 2018-01-21 23:37 | HHI.PR ---
Subjective Remarks Patient seen bedside with mother present. Patient is adamantly refusing amputation, however no amputation has been discussed. Strikethrough present to dressings. Objective Vital Signs Date Time Temp Pulse Resp B/P (MAP) Pulse Ox O2 Delivery O2 Flow Rate FiO2 01/21/18 19:38 98.0 77 11 125/72 98 01/21/18 18:00 69 01/21/18 17:40 97.9 71 10 133/63 99 01/21/18 17:39 97.9 71 10 133/63 99 01/21/18 17:24 98.3 72 20 127/59 100 01/21/18 16:45 97.7 66 13 133/63 99 01/21/18 16:00 72 01/21/18 16:00 97.9 72 15 132/64 (86) 100 01/21/18 14:54 97.9 66 12 120/56 99 01/21/18 14:39 97.6 65 20 120/56 100 01/21/18 14:00 62 01/21/18 14:00 97.8 63 10 115/57 99 01/21/18 13:45 97.8 63 10 108/59 98 01/21/18 12:45 97.6 61 10 118/56 99 01/21/18 12:30 97.7 61 17 113/59 95 01/21/18 12:00 97.7 65 12 108/57 (74) 97 01/21/18 12:00 65 01/21/18 11:54 12 01/21/18 10:00 66 01/21/18 08:00 62 01/21/18 08:00 97.6 62 9 138/65 (89) 97 01/21/18 07:24 97 21 01/21/18 06:00 58 01/21/18 04:30 60 16 158/75 (102) 98 01/21/18 04:00 98.2 62 18 172/75 (107) 98 01/21/18 04:00 62 01/21/18 03:30 62 18 161/70 (100) 98 01/21/18 03:00 62 14 163/75 (104) 98 01/21/18 02:45 62 14 173/78 (109) 98 01/21/18 02:30 62 14 96 01/21/18 02:02 59 16 180/77 (111) 98 01/21/18 02:00 62 01/21/18 02:00 57 20 99 01/21/18 01:30 55 17 158/75 (102) 98 01/21/18 01:15 56 16 183/77 (112) 98 01/21/18 01:00 58 20 169/78 (108) 98 01/21/18 00:45 53 8 158/76 (103) 97 01/21/18 00:31 59 12 169/74 (105) 98 01/21/18 00:30 56 15 97 01/21/18 00:00 59 16 150/75 (100) 98 01/21/18 00:00 59 01/20/18 23:45 61 23 149/77 (101) 98 01/20/18 23:30 61 17 151/71 (97) 98 I/O 01/21/18 01/21/18 01/21/18 01/22/18 01/22/18 01/22/18 07:00 15:00 23:00 07:00 15:00 23:00 Intake Total 770 ml 524 ml 1935 ml Output Total 850 ml 525 ml Balance -80 ml 524 ml 1410 ml Intake Oral 720 ml 960 ml IV Total 50 ml 50 ml Packed Cells 800 ml FFP 409 ml Blood Product IV Normal Saline Flush 115 ml 125 ml Output Urine Total 650 ml 375 ml Stool Total 200 ml 150 ml Result Diagram: 01/21/18 2208 01/21/18 0545 Imaging Last Impressions Chest X-Ray 01/21/18 0600 Signed Impressions: Service Date/Time: Sunday, January 21, 2018 03:50 - CONCLUSION: Normal examination. Right IJ Vas-Cath in good position Duncan Zaldivar MD Foot MRI 01/19/18 0000 Signed Impressions: Service Date/Time: Friday, January 19, 2018 12:36 - CONCLUSION: 1. 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 These findings are very similar to the prior study 2016. 2. Plantar cutaneous defect and extensive midfoot plantar superficial soft tissue edema extending into the plantar musculature. These findings are suspicious for infection in the proper clinical setting. Elongated adjacent more medial and distal plantar soft tissue ovoid fluid collection may represent a pseudo-bursa or abscess. More ill-defined edema is seen extending laterally to the base of the fifth metatarsal with likely early osteomyelitis at this location. This lateral extension is a new finding when compared to the prior study of 2016. 3. Posterior superficial soft tissue edema the heel with mild adjacent bony edema is very similar to the prior study with no definitive osteomyelitis. Ganga Luna MD Abdomen X-Ray 01/19/18 Signed Impressions: Service Date/Time: Friday, January 19, 2018 10:57 - CONCLUSION: Nonspecific bowel gas pattern. Mildly distended air-filled stomach. Ganga Luna MD Liver Ultrasound 01/16/18 Signed Impressions: Service Date/Time: January 16:59 - CONCLUSION: 1. Hepatomegaly and diffuse increased hepatic echogenicity without intrahepatic ductal dilatation or focal mass. Findings are most consistent with hepatic steatosis or medical liver disease. 2. Trace ascites. 3. Cholelithiasis with gallbladder wall prominence and trace pericholecystic fluid. These findings may be seen in the setting of chronic liver disease or ascites and significantly limit ultrasound evaluation for acute cholecystitis. If there is significant clinical concern regarding acute cholecystitis, HIDA scan may be performed to evaluate for cystic duct patency. Nam Tinajero MD Head CT 01/14/182000 Signed Impressions: Service Date/Time: Sunday, January 14, 2018 20:22 - CONCLUSION: Normal examination for a patient of this age. Marcio Hansen MD Lower Extremity CT 01/14/18 Signed Impressions: Service Date/Time: Sunday, January 14, 2018 23:38 - CONCLUSION: 1. CT findings characteristic of a severe Charcot foot in the mid and hindfoot with collapse of the plantar arch. Osteoarthritic changes of the first MTP joint 2. However, findings all appear to be chronic with no acute osseous injury Marquis Mcdonald MD Abdomen/Pelvis CT 01/14/18 Signed Impressions: Service Date/Time: Sunday, January 14, 2018 23:35 - CONCLUSION: 1. CT findings suggest volume overload or low oncotic pressures with some flank and mesenteric edema, gallbladder wall thickening and some free fluid in the pelvis. Heart size is somewhat prominent. 2. Bilateral symmetric gynecomastia. Nonspecific findings but can be associated with some chronic disease processes or medications. 3. Left periaortic borderline prominent lymph nodes. Again, nonspecific but may be reactive associated with the aforementioned mesenteric edema. 4. 5.7 cm periumbilical fatty hernia. There is now some fluid along the periphery of the hernia. This could be related to the generalized edema described above although fatty infarction could have a similar radiographic presentation. Please correlate with clinical symptomatology Marquis Mcdonald MD Procedures s/p bedside incision and drainage 01/20/18 Other Results Microbiology Date/Time Source Procedure Growth Status 01/17/18 10:55 Blood Peripheral Aerobic Blood Culture - Preliminary NO GROWTH IN 4 DAYS Resulted 01/17/18 10:55 Blood Peripheral Anaerobic Blood Culture - Preliminary NO GROWTH IN 4 DAYS Resulted 01/17/18 13:15 Urine Catheterized Urine Urine Culture - Final NO GROWTH IN 48 HOURS. Complete 01/16/18 15:00 Wound Foot Gram Stain - Final Complete 01/16/18 15:00 Wound Culture - Final Group A Beta Strep Complete Objective Remarks Lower extremity physical exam: Dressing to bilateral LE with sanguinous strikethrough noted Medications and IVs Current Medications Medications (Trade) Dose Ordered Sig/Portia Route Start Time Stop Time Status Last [place] [place] [facility] [place] 1 [id number] XX 01/14/18 22:45 (Chlorhexidine 2% Cloth) Taper DAILY@04 TOP 01/15/18 04:00 01/11/19 03:59 01/19/18 02:50 (Chlorhexidine 2% Cloth) 3 pack UNSCH PRN TOP 01/14/18 22:45 (Tylenol) 650 mg Q4H PRN PO 01/15/18 01:00 (Aspirin) 325 mg DAILY PO 01/15/18 09:00 01/20/18 09:30 (Romazicon Inj) 0.2 mg Q1M PRN IV PUSH 01/16/18 01:00 (Ativan) 1 mg Q4H PRN PO 01/16/18 01:00 Future Hold (Ativan Inj) 1 mg Q4H PRN IV PUSH 01/16/18 01:00 Future Hold (Ativan) 2 mg Q2H PRN PO 01/16/18 01:00 Future Hold (Ativan Inj) 2 mg Q2H PRN IV PUSH 01/16/18 01:00 Future Hold 01/16/18 09:08 (Ativan Inj) 2 mg Q1H PRN IV PUSH 01/16/18 01:00 Future Hold (Ativan Inj) 2 mg Q15M PRN IV PUSH 01/16/18 01:00 Future Hold Cefazolin Sodium/ Dextrose 50 ml @ 100 mls/hr Q12H IV 01/16/18 15:00 01/21/18 15:49 Sodium Chloride 1,000 ml @ 0 mls/hr Q0M PRN OTHER 01/17/18 17:00 01/20/18 11:15 (Heparin Inj) 8,000 units UNSCH PRN IV FLUSH 01/17/18 17:00 Sodium Chloride 1,000 ml @ 200 mls/hr Q5H PRN IV 01/17/18 17:00 01/18/18 09:14 Sodium Chloride 1,000 ml @ 0 mls/hr Q0M PRN OTHER 01/17/18 17:00 (Mannitol Inj) 12.5 gm UNSCH PRN IV 01/17/18 17:00 Albumin Human 100 ml @ 60 mls/hr UNSCH PRN IV 01/17/18 17:00 (NS Flush) 5 ml UNSCH PRN IV FLUSH 01/17/18 17:00 (Heparin Inj) UNSCH PRN .XX 01/17/18 17:00 01/20/18 11:15 (Gentamicin Inj) 20 mg UNSCH PRN OTHER 01/17/18 17:00 01/20/18 11:15 (Zofran Inj) 4 mg UNSCH PRN IV PUSH 01/17/18 17:00 (Tylenol) 650 mg UNSCH PRN PO 01/17/18 17:00 (Benadryl) 25 mg UNSCH PRN PO 01/17/18 17:00 (Nitrostat Sl) 0.4 mg UNSCH PRN SL 01/17/18 17:00 (Catapres) 0.1 mg UNSCH PRN PO 01/17/18 17:00 (Gelfoam 12 Mm/7 Mm Top) 1 foam UNSCH PRN TOP 01/17/18 17:00 (NovoLOG SUPPLEMENTAL SCALE) 1 ACHS SLIDING SCALE SQ 01/19/18 12:00 01/21/18 21:00 (D50w (Vial) Inj) 50 ml UNSCH PRN IV PUSH 01/19/18 09:15 (Glucagon Inj) 1 mg UNSCH PRN OTHER 01/19/18 09:15 (Bactroban Nasal 2% Oint) 1 applic Taper BID EACH NARE 01/19/18 21:00 01/15/19 20:59 01/21/18 21:25 (Vistaril) 50 mg BID PO 01/19/18 10:00 01/21/18 21:25 Patient Own Medication PT OWN MED: THIORIDAZINE DOSE 10... DAILY PO 01/20/18 09:00 Future Hold (Morphine Inj) 1 mg Q4H PRN IV PUSH 01/19/18 10:00 01/21/18 21:42 (Ativan Inj) 1 mg Q4H PRN IV PUSH 01/19/18 09:15 01/20/18 01:04 (Geodon Inj) 10 mg Q12H PRN IM 01/19/18 09:15 01/22/18 09:14 (NS Flush) 2 ml UNSCH PRN IV FLUSH 01/19/18 09:15 01/21/18 21:42 (NS Flush) 2 ml BID IV FLUSH 01/19/18 21:00 01/21/18 21:25 (Protonix) 40 mg DAILY PO 01/20/18 09:00 01/21/18 09:23 (Zofran Inj) 4 mg Q6H PRN IV PUSH 01/19/18 09:15 (Albuterol Neb) 2.5 mg Q2HR NEB PRN INH 01/19/18 09:15 (Lizz-Colace) 1 tab BID PO 01/19/18 21:00 01/21/18 21:25 (Dulcolax Supp) 10 mg DAILY PRN RECTAL 01/19/18 09:15 (Lactulose Liq) 30 ml DAILY PO 01/20/18 09:00 01/21/18 09:23 (Miralax) 17 gm DAILY PO 01/20/18 09:00 01/21/18 09:23 (Levemir Inj) 8 units DAILY SQ 01/20/18 09:00 01/21/18 09:25 (Apresoline Inj) 10 mg Q1H PRN IV PUSH 01/19/18 09:45 01/20/18 21:35 (Nitroglycerin 2% Oint) 2 inch Q6H PRN TOPICAL 01/19/18 09:45 Sodium Chloride 250 ml @ 15 mls/hr ONCE ONCE IV 01/21/18 09:45 01/22/18 02:24 01/21/18 12:03 Assessment and Plan Assessment and Plan 57-year-old male with bilateral lower extremity plantar ulcers and abscess s/p bedside I&D Patient examined and evaluated nurse present bedside WBC trending down Please obtain consent for bilateral foot debridement and irrigation with wound vac placement NPO after midnight Once medically optimized patient to be brought to operating room, will discuss if OR intervention Saturday Patient will need to remain nonweightbearing to bilateral lower extremity secondary to plantar foot wounds Juani Vivar DPM January 21, 2018 23:37
[2018-01-21 23:52] LABS: ALK PHOS BONE (ISOENZYMES) 34 % (28-66); ALK PHOS INTESTINE (ISOENZYME) 10 % (1-24); ALK PHOS LIVER (ISOENZYME) 56 % (25-69); ALK PHOS PLACENTAL ISOENZYME 0 % (0)
[2018-01-22] VITALS (14 sets, daily range): BP systolic 119–154; BP diastolic 57–70; PULSE 62–83; RESP 10–16; TEMP 98.1–98.9; O2SAT 93–97
[2018-01-22] MEDS: ceFAZolin 2 GM PREMIX 50 ML IV SCH ×2 (03:00→14:59)
[2018-01-22 03:52] LABS: MITOCHONDRIAL ABS LESS THAN 20.0 U (<=20.0)
[2018-01-22] MEDS: CHLORHEXIDINE GLUCONATE 2 % 1 PACK (2 CLOTHS) TOP SCH (04:00)
[2018-01-22 07:14] LABS: AUTOMATED NEUTROPHIL # 17.7 TH/MM3 (1.8-7.7); BASOPHIL % 0.2 % (0.0-2.0); EOSINOPHIL # 0.2 TH/MM3 (0-0.4); HEMATOCRIT 21.5 % (39.0-51.0); HEMOGLOBIN 7.4 GM/DL (13.0-17.0); LYMPH % 9.6 % (9.0-44.0); MEAN CELL VOLUME 87.6 FL (80.0-100.0); MEAN CORPUSCULAR HEMOGLOBIN 30.3 PG (27.0-34.0); MEAN CORPUSCULAR HGB CONC 34.6 % (32.0-36.0); MEAN PLATELET VOLUME 9.2 FL (7.0-11.0); MONO % 4.5 % (0.0-8.0); MONOCYTE # 0.9 TH/MM3 (0-0.9); NEUT % 84.7 % (16.0-70.0); PLATELET COUNT 231 TH/MM3 (150-450); RED BLOOD COUNT 2.45 MIL/MM3 (4.50-5.90); RED CELL DISTRIBUTION WIDTH 16.1 % (11.6-17.2); WHITE BLOOD COUNT 20.9 TH/MM3 (4.0-11.0)
[2018-01-22 07:21] LABS: INTERNATIONAL NORMALIZED RATIO 1.3 RATIO; PROTHROMBIN TIME - PATIENT 13.4 SEC (9.8-11.6)
[2018-01-22 07:50] LABS: ALBUMIN 1.4 GM/DL (3.4-5.0); ALKALINE PHOSPHATASE 266 U/L (45-117); ALT (GPT) LESS THAN 6 U/L (12-78); AST (GOT) 19 U/L (15-37); BICARBONATE 31.7 MEQ/L (21.0-32.0); BLOOD UREA NITROGEN 34 MG/DL (7-18); CALCIUM 7.3 MG/DL (8.5-10.1); CALCIUM-PROTEIN CORRECTED 7.7 MG/DL (8.5-10.1); CHLORIDE 104 MEQ/L (98-107); CREATININE 2.08 MG/DL (0.60-1.30); GLOMERULAR FILTRATION RATE 33 ML/MIN (>89); GLUCOSE,RANDOM 54 MG/DL (74-106); MAGNESIUM 1.8 MG/DL (1.5-2.5); PHOSPHORUS 2.7 MG/DL (2.5-4.9); SODIUM (NA) 140 MEQ/L (136-145); TOTAL BILIRUBIN ADULT 0.5 MG/DL (0.2-1.0); TOTAL PROTEIN 6.3 GM/DL (6.4-8.2)
[2018-01-22] MEDS: INSULIN ASPART SUPPLEMENTAL SCALE SQ SCH ×4 (08:00→21:00)
[2018-01-22 08:24] LABS: BANDS 3 % (0-6); LYMPHOCYTES 4 % (9-44); METAMYELOCYTES 1 % (0-1); MYELOCYTES 2 % (0-0); NEUTROPHIL # MANUAL DIFF 19.6 TH/MM3 (1.8-7.7); POLYS (SEG NEUTROPHILS) 88 % (16-70)
[2018-01-22] MEDS: SODIUM CHLORIDE 0.9% FLUSH 10 ML FLUSH IV FLUSH SCH ×2 (09:00→21:30)
[2018-01-22] MEDS: POLYETHYLENE GLYCOL 17 GM PKG PO SCH (09:00)
[2018-01-22] MEDS: INSULIN DETEMIR 100 UNITS/ML VIAL SQ SCH (09:00)
[2018-01-22] MEDS: PANTOPRAZOLE SOD 40 MG DELAYED RELEASE TAB PO SCH (09:00)
[2018-01-22] MEDS: DOCUSATE SODIUM 50 MG/SENNA 8.6 MG TAB PO SCH ×2 (09:00→21:29)
[2018-01-22] MEDS: ASPIRIN 325 MG TAB PO SCH (09:00)
[2018-01-22] MEDS: MUPIROCIN 2% OINT 1 APPLIC/GM SYR EACH NARE SCH ×2 (09:00→21:30)
[2018-01-22] MEDS: LACTULOSE SYRUP 20 GM/30 ML CUP PO SCH (09:00)
[2018-01-22 09:32] LABS: HCV RNA PCR IU/ML LESS THAN 15 IU/mL (Not Detected)
[2018-01-22] MEDS ORDERED: DEXTROSE 10% INJ 1,000 ML IV SCH (10:15)
--- NOTE | 2018-01-22 10:55 | HHI.CCPN ---
Subjective Remarks/Hospital Course 57-year-old male presents from home with altered mental status. Patient has been altered and is oriented to person only. According to family, patient fell 2 days ago but we do not have any other information regarding this. Patient does have a history of chronic alcohol abuse but denies any alcohol today. 01/15: Late entry note patient seen a 7am. Patient lethargic but protecting airway. Patient is altered and oriented to self. Patient noted to be hyponatremic questionable if chronic. He continues on IV fluids NS 175 cc/hr. 01/16: Patient noted to be more lethargic today ABG performed severe metabolic acidosis noted IV fluids normal saline discontinued. She received 50 mEq of sodium bicarbonate IV push. Patient started on sodium bicarbonate infusion at 100 cc/hour. Antipsychotic medications Thorazine placed on hold all sedative type medications placed on hold. Patient was noted to have elevated creatinine nephrology consulted. Noted elevation in LFTs, hepatitis profile and liver ultrasound pending, likely shock liver secondary to hypotension due to septic shock. 01/17: The patient slightly more alert today, and combative. Continues on sodium bicarbonate infusion at 100 cc an hour with minimal improvement. INR noted to continue to be elevated GI has been consulted. Hepatitis panel is pending. Persistent leukocytosis WBC count elevation from 25-31 this a.m. thought to be possibly secondary to hydrocortisone. Initiated hydrocortisone weaning, expanded antibiotic coverage with Zosyn renally adjusted. Patient pancultured. patient received 1 dose of Lasix last evening with 1250 cc urine output in 12 hours. 01/18: Last evening Vas-Cath placed for initiation of dialysis. Creatinine increased this a.m. to 4.4 hemodialysis in progress. Patient's beta hydroxybutyrate was noted to be 4.24 last evening, insulin infusion initiated. Anion gap metabolic acidosis corrected. ABGs within normal limits. His a.m. patient alert, awake requesting something to drink. Formal swallow evaluation performed mechanical soft diet initiated. Patient was noted to have hepatitis C positive IgG, antibodies, continued workup underway. INR continues to be elevated at 3.1 this a.m.. Antibiotic coverage expanded yesterday with Zosyn WBC count downtrending. Patient hemodynamically stable hydrocortisone weaning initiated. Patient scheduled for MRI bilateral feet secondary to significant foot infection., 01/19: Afebrile. Bradycardic. More awake and alert. MRI foot pending. Resuming thioridazine 200 mg daily and hydroxyzine 50 mg twice daily. Adding as needed morphine and lorazepam for pain/agitation 01/20: Currently afebrile. Psychiatric medications resumed yesterday. Patient more appropriate. Hemodialysis ongoing today currently. Hepatitis genotype C not detected. 01/21: Patient had right foot debridement yesterday. Per nursing report, patient started bleeding from debridement site all night and this morning. Hemoglobin dropped almost 1 point. T-max of 98.2. Patient is awake, feels better, still complains of pain over the debridement site. He denies chest pain, shortness of breath, palpitations, abdominal pain. 01/22: No events over the night. T-max of 98.7. Bleeding from the debridement site appears to have stopped. Scheduled to go to the OR later today. Objective Vital Signs Date Time Temp Pulse Resp B/P (MAP) Pulse Ox O2 Delivery O2 Flow Rate FiO2 01/22/18 08:37 97 01/22/18 06:00 79 01/22/18 04:00 98.2 12 119/57 (77) 01/21/18 07:24 21 01/18/18 07:16 Nasal Cannula 3.00 Intake and Output 01/22/18 01/22/18 01/23/18 08:00 16:00 00:00 Intake Total 250 ml Output Total 950 ml Balance -700 ml Result Diagram: 01/22/18 0549 01/22/18 0549 Other Results Cultures reviewed Imaging Last Impressions Chest X-Ray 01/20/18 0600 Signed Impressions: Service Date/Time: Saturday, January 20, 2018 04:15 - CONCLUSION: Right IJ Vas-Cath in good position. Heart is enlarged. Duncan Zaldivar MD Foot MRI 01/19/18 0000 Signed Impressions: Service Date/Time: Friday, January 19, 2018 12:36 - CONCLUSION: 1. 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 These findings are very similar to the prior study 2016. 2. Plantar cutaneous defect and extensive midfoot plantar superficial soft tissue edema extending into the plantar musculature. These findings are suspicious for infection in the proper clinical setting. Elongated adjacent more medial and distal plantar soft tissue ovoid fluid collection may represent a pseudo-bursa or abscess. More ill-defined edema is seen extending laterally to the base of the fifth metatarsal with likely early osteomyelitis at this location. This lateral extension is a new finding when compared to the prior study of 2016. 3. Posterior superficial soft tissue edema the heel with mild adjacent bony edema is very similar to the prior study with no definitive osteomyelitis. Ganga Luna MD Abdomen X-Ray 01/19/18 Signed Impressions: Service Date/Time: Friday, January 19, 2018 10:57 - CONCLUSION: Nonspecific bowel gas pattern. Mildly distended air-filled stomach. Ganga Luna MD Liver Ultrasound 01/16/18 Signed Impressions: Service Date/Time: January 16:59 - CONCLUSION: 1. Hepatomegaly and diffuse increased hepatic echogenicity without intrahepatic ductal dilatation or focal mass. Findings are most consistent with hepatic steatosis or medical liver disease. 2. Trace ascites. 3. Cholelithiasis with gallbladder wall prominence and trace pericholecystic fluid. These findings may be seen in the setting of chronic liver disease or ascites and significantly limit ultrasound evaluation for acute cholecystitis. If there is significant clinical concern regarding acute cholecystitis, HIDA scan may be performed to evaluate for cystic duct patency. Nam Tinajero MD Head CT 01/14/182000 Signed Impressions: Service Date/Time: Sunday, January 14, 2018 20:22 - CONCLUSION: Normal examination for a patient of this age. Marcio Hansen MD Lower Extremity CT 01/14/18 Signed Impressions: Service Date/Time: Sunday, January 14, 2018 23:38 - CONCLUSION: 1. CT findings characteristic of a severe Charcot foot in the mid and hindfoot with collapse of the plantar arch. Osteoarthritic changes of the first MTP joint 2. However, findings all appear to be chronic with no acute osseous injury Marquis Mcdonald MD Abdomen/Pelvis CT 01/14/18 Signed Impressions: Service Date/Time: Sunday, January 14, 2018 23:35 - CONCLUSION: 1. CT findings suggest volume overload or low oncotic pressures with some flank and mesenteric edema, gallbladder wall thickening and some free fluid in the pelvis. Heart size is somewhat prominent. 2. Bilateral symmetric gynecomastia. Nonspecific findings but can be associated with some chronic disease processes or medications. 3. Left periaortic borderline prominent lymph nodes. Again, nonspecific but may be reactive associated with the aforementioned mesenteric edema. 4. 5.7 cm periumbilical fatty hernia. There is now some fluid along the periphery of the hernia. This could be related to the generalized edema described above although fatty infarction could have a similar radiographic presentation. Please correlate with clinical symptomatology Marquis Mcdonald MD Objective Remarks General - middle-aged gentleman, awake, in no distress HEENT - pupils equal, reactive, sclerae icteric, neck supple, no nuchal rigidity , neck veins not distended, no carotid bruit, right IJ HD catheter -site is clean CV - regular S1, S2, no murmurs Chest - clear b/l, good air entry, no wheezes Abdomen - soft, non-tender, non-distended, BS present Skin - chronic venous stasis bilateral lower extremities, bilateral feet wrapped with dressing, old dried blood over the right dressing Extremities - warm and well perfused, 2+ edema, improved, + peripheral pulses, left thumb metacarpophalangeal joint erythema, warmth, tender to touch Neuro - awake, alert, oriented, calm, moves all extremities A/P Assessment and Plan Neuro/Psych: Metabolic encephalopathy secondary to sepsis -resolving Schizophrenia Posttraumatic stress disorder 01/16 Hold antipsychotic meds (Thorazine) in the setting of lethargy 01/19 - resume Thioridazine 200 mg daily with hydroxyzine 50 mg/twice daily home medications for schizophrenia Acetaminophen 650 mg p.o. every 4 hours as needed fever/pain 1 through 5 Morphine sulfate 1 mg IV every 4 hours as needed pain 6 - 10 Lorazepam 1 mg IV every 4 hours as needed agitation Ziprasidone 10 mg IM every 12 hours as needed breakthrough agitation. Start date 01/19 maximum 3 days At home on hydrocodone/acetaminophen 10/325 1 tablet twice daily as needed pain Respiratory: Supplemental O2 to keep SPO2 above 92% Incentive spirometry while awake Albuterol/ipratropium aerosols every 2 hours as needed dyspnea hours as needed Cardiovascular: Septic shock -resolved History of hypertension Norepinephrine discontinued 01/15 0500 Maintain MAP greater than 65 Hold all antihypertensive medications in the setting of septic shock, restart gradually Hold aspirin 81 mg daily -due to bleed At home on amlodipine 10 mg p.o. daily for hypertension As needed Nitropaste/hydralazine for hypertension breakthrough Renal/FEN: Nonoliguric BISHOP Hypokalemia Maintain almaraz-for accurate I's and O's in a critically ill patient 01/16 Lasix 40 mg IV 1 dose 01/17 vascular cath placement 01/18 IHD 2 L off. Today's hemodialysis results pending Nephrology following-[facility] per their recommendations Avoid nephrotoxic drugs Replete potassium FEN/GI: Hepatitis C antibody positive. Genotype not detected and viral load pending Elevated LFTs- Shock Liver Hepatomegaly Cholelithiasis Monitor CMP 01/16 ultrasound of the liver- Trace ascites. Findings most consistent with hepatic steatosis or liver disease. Cholelithiasis with gallbladder wall prominence but trace pericholecystic fluid Hepatitis C IgG antibody positive GI consulted appreciate recommendations Noted VICKIE positive. Breakdown currently pending Heme/ID: Normocytic anemia -hemoglobin slowly trending down Group A strep septicemia Diabetic foot infection and abscess status post drainage and debridement on 01/20 Septic shock Coagulopathy -INR remains elevated Transfused 2 units PRBC on 01/21 Transfused 2 units FFP on 01/21 as well Plan for OR today noted Pressure dressing On cefazolin, followed by ID Might need ortho consult for metacarpophalangeal involvement? to r/o septic arthritis Pertinent microbiology 01/14 -blood cultures 2 beta strep group A 01/15 and 01/16 -wound -beta strep group A 01/16-01/17 -blood cultures 2 -no growth 01/17 -UA -no growth Endocrine: Diabetes mellitus Hypoglycemia - patient is NPO for surgery Received half amp of D50 for blood sugar of 60 Check fingersticks every 2 hours Start D10 at 30 cc/h Glipizide 10 mg p.o. twice daily home medication held MSK : Bilateral wound infection feet 01/16 Podiatry [id number] recommendations Rule out osteomyelitis PT evaluation and treat 01/16 Wound care following application per recommendations MRI L fot 01/19 results reviewed revealing plantar cutaneous defect with underlying septated fluid signal extending into the area of plantar aponeurosis defect. This finding is much more prominent than on the comparison MRI and suggests soft tissue infection in the proper clinical setting. Defined rounded collection is not seen. The abnormal fluid signal extends to the plantar surface of the cuboid but no definitive evidence of osteomyelitis is seen. Extensive arthritic findings and bony destructive findings in the midfoot and hindfoot similar to prior study of 2016 indicating severe neuropathic osteoarthropathy. 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 These findings are very similar to the prior study 2016. Plantar cutaneous defect and extensive midfoot plantar superficial soft tissue edema extending into the plantar musculature. These findings are suspicious for infection in the proper clinical setting. Elongated adjacent more medial and distal plantar soft tissue ovoid fluid collection may represent a pseudo-bursa or abscess. More ill-defined edema is seen extending laterally to the base of the fifth metatarsal with likely early osteomyelitis at this location. This lateral extension is a new finding when compared to the prior study of 2016. Posterior superficial soft tissue edema the heel with mild adjacent bony edema is very similar to the prior study with no definitive osteomyelitis. Prophylaxis: GI Prophylaxis Pantoprazole DVT Prophylaxis -- SCDs Teds and SCDs. Heparin SQ on hold in the setting of elevated INR Lines: Peripheral IVs 2. Central line if indicated Right IJ dialysis catheter Level 2 follow-up No family present at bedside. We will transition further care to hospitalist service. Valentin Mejia MD January 22, 2018 10:55
--- NOTE | 2018-01-22 11:54 | HHI.NPPN ---
Subjective Renal Failure: Acute Interval History He is awake. Vital signs stable. Renal function is also stable. (Laura Quesada) Review of Systems General Constitutional: Fatigue (Laura Quesada) Heme-Lymph Heme-Lymph: Bleeding (Laura Quesada) Skin Skin Remarks wounds to bilateral feet. (Laura Quesada) Objective Data Data Vital Signs Date Time Temp Pulse Resp B/P (MAP) Pulse Ox O2 Delivery O2 Flow Rate FiO2 01/22/18 10:00 73 01/22/18 08:37 97 01/22/18 08:00 66 01/22/18 08:00 98.7 66 14 133/62 (85) 97 01/22/18 06:00 79 01/22/18 04:00 98.2 68 12 119/57 (77) 93 01/22/18 04:00 69 01/22/18 02:00 62 01/22/18 00:00 63 01/22/18 00:00 98.1 63 15 135/64 (87) 97 01/21/18 22:00 62 01/21/18 20:00 77 01/21/18 20:00 98.7 77 11 124/61 (82) 99 01/21/18 19:38 98.0 77 11 125/72 98 01/21/18 18:00 69 01/21/18 17:40 97.9 71 10 133/63 99 01/21/18 17:39 97.9 71 10 133/63 99 01/21/18 17:24 98.3 72 20 127/59 100 01/21/18 16:45 97.7 66 13 133/63 99 01/21/18 16:00 72 01/21/18 16:00 97.9 72 15 132/64 (86) 100 01/21/18 14:54 97.9 66 12 120/56 99 01/21/18 14:39 97.6 65 20 120/56 100 01/21/18 14:00 62 01/21/18 14:00 97.8 63 10 115/57 99 01/21/18 13:45 97.8 63 10 108/59 98 01/21/18 12:45 97.6 61 10 118/56 99 01/21/18 12:30 97.7 61 17 113/59 95 01/21/18 12:00 97.7 65 12 108/57 (74) 97 01/21/18 12:00 65 01/21/18 11:54 12 (Laura Quesada) -: 01/22/18 0549 01/22/18 0549 Imaging Last 72 hours Impressions Chest X-Ray 01/21/18 0600 Signed Impressions: Service Date/Time: Sunday, January 21, 2018 03:50 - CONCLUSION: Normal examination. Right IJ Vas-Cath in good position Duncan Zaldivar MD Chest X-Ray 01/20/18 0600 Signed Impressions: Service Date/Time: Saturday, January 20, 2018 04:15 - CONCLUSION: Right IJ Vas-Cath in good position. Heart is enlarged. Duncan Zaldivar MD Tubes & Lines: Vas-Cath, Chirinos Tubes & Lines Comment rectal tube (Laura Quesada) Physical Exam General Appearance: Comfortable Appearance Remarks disheveled, appears older than stated age (Laura Quesada) Ears & Nose Ears & Nose Exam: Tympanic Membranes Normal (Laura Quesada) Pulmonary Resp Exam: Breath Sounds Equal, No Distress (Laura Quesada) Cardiology CV Exam: Normal Sinus Rhythm, Good Perfusion (Laura Quesada) Gastrointestinal/Abdomen GI Exam: Soft, Non-Tender, Bowel Sounds Present (Laura Quesada) Musculoskeletal MS Exam: Joints Intact, Normal Tone, Unable to Ambulate (Laura Quesada) Integumentary Skin Exam: Warm, Dry Skin Remarks wound on bilateral feet/heals , dressings saturated with clotted blood (Laura Quesada) Extremeties Extremities Exam: Trace Edema (Laura Quesada) Neurologic Neuro Exam: Alert, Awake, Speech Clear, Moving All Extremities (Laura Quesada) Assessment/Plan Discussed Condition With: Patient Assessment Summary: BISHOP/Acute Renal Failure Problem List: (1) Acute worsening of stage 3 chronic kidney disease ICD Codes: N18.3 - Chronic kidney disease, stage 3 (moderate) Plan: Exact baseline is not known. Last year Creatinine was 1.7. BISHOP likely due to ATN from sepsis. He had dialysis 5/ and 5/ Renal function stabilized Monitor urine output, currently adequate No dialysis needed today, most likely will not need additional treatments Maintain vascath for now Obtain AM labs. (2) Sepsis ICD Codes: A41.9 - Sepsis, unspecified organism Status: Resolved Plan: ID following. On Cefazolin, Source is likely infected leg wounds. 4/4 blood cultures positive, wound culture also positive for Group B strep (3) Hyponatremia ICD Codes: E87.1 - Hypo-osmolality and hyponatremia Status: Acute Plan: Stable Documented history of psychogenic polydipsia. However given ETOH abuse, need to consider beer potomania. Improved. (4) Anemia ICD Codes: D64.9 - Anemia, unspecified Status: Chronic Plan: Hb improved. Monitor for bleeding. (Laura Quesada) Plan patient was seen and examined. Renal function is stable. No need for dialysis. Continue supportive care. Avoid nephrotoxic agents. (Shaun Mcmahon MD) Problem Qualifiers (1) Sepsis: Qualified Codes: A41.9 - Sepsis, unspecified organism Laura Quesada January 22, 2018 11:54 Shaun Mcmahon MD January 22, 2018 21:00
[2018-01-22] MEDS ORDERED: PROPOFOL 200 MG/20 ML AMP IV ONE (12:00)
[2018-01-22] MEDS ORDERED: LIDOCAINE HCL 1% PF 5 ML SYRINGE OTHER ONE (12:00)
[2018-01-22] MEDS: MORPHINE SULFATE 4 MG/ML INJ IV PUSH PRN ×2 (16:07→21:26)
[2018-01-22 16:16] LABS: ANA PATTERN NUCLEOLAR
[2018-01-22] MEDS ORDERED: NEOMYCIN/POLYMYXIN 1 ML G.U. IRRIGANT ONE (19:07)
[2018-01-22] MEDS ORDERED: BUPIVACAINE HCL PF 0.5% 30 ML VIAL ONE (19:10)
--- NOTE | 2018-01-22 19:16 | HHI.PR ---
Subjective Remarks Patient seen bedside in preop Objective Vital Signs Date Time Temp Pulse Resp B/P (MAP) Pulse Ox O2 Delivery O2 Flow Rate FiO2 01/22/18 18:00 71 01/22/18 16:00 70 01/22/18 16:00 98.3 70 11 154/69 (97) 95 01/22/18 14:00 69 01/22/18 12:00 69 01/22/18 12:00 98.3 69 10 151/70 (97) 96 01/22/18 10:00 73 01/22/18 08:37 97 01/22/18 08:00 66 01/22/18 08:00 98.7 66 14 133/62 (85) 97 01/22/18 06:00 79 01/22/18 04:00 98.2 68 12 119/57 (77) 93 01/22/18 04:00 69 01/22/18 02:00 62 01/22/18 00:00 63 01/22/18 00:00 98.1 63 15 135/64 (87) 97 01/21/18 22:00 62 01/21/18 20:00 77 01/21/18 20:00 98.7 77 11 124/61 (82) 99 01/21/18 19:38 98.0 77 11 125/72 98 I/O 01/21/18 01/21/18 01/21/18 01/22/18 01/22/18 01/22/18 07:00 15:00 23:00 07:00 15:00 23:00 Intake Total 770 ml 524 ml 1935 ml 250 ml Output Total 850 ml 525 ml 950 ml Balance -80 ml 524 ml 1410 ml -700 ml Intake Oral 720 ml 960 ml 250 ml IV Total 50 ml 50 ml Packed Cells 800 ml FFP 409 ml Blood Product IV Normal Saline Flush 115 ml 125 ml Output Urine Total 650 ml 375 ml 800 ml Stool Total 200 ml 150 ml 150 ml Result Diagram: 01/22/18 0549 01/22/18 0549 Imaging Last Impressions Chest X-Ray 01/21/18 0600 Signed Impressions: Service Date/Time: Sunday, January 21, 2018 03:50 - CONCLUSION: Normal examination. Right IJ Vas-Cath in good position Duncan Zaldivar MD Foot MRI 5/6/18 0000 Signed Impressions: Service Date/Time: Friday, January 19, 2018 12:36 - CONCLUSION: 1. 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 These findings are very similar to the prior study 2016. 2. Plantar cutaneous defect and extensive midfoot plantar superficial soft tissue edema extending into the plantar musculature. These findings are suspicious for infection in the proper clinical setting. Elongated adjacent more medial and distal plantar soft tissue ovoid fluid collection may represent a pseudo-bursa or abscess. More ill-defined edema is seen extending laterally to the base of the fifth metatarsal with likely early osteomyelitis at this location. This lateral extension is a new finding when compared to the prior study of 2016. 3. Posterior superficial soft tissue edema the heel with mild adjacent bony edema is very similar to the prior study with no definitive osteomyelitis. Ganga Luna MD Abdomen X-Ray 01/19/18 Signed Impressions: Service Date/Time: Friday, January 19, 2018 10:57 - CONCLUSION: Nonspecific bowel gas pattern. Mildly distended air-filled stomach. Ganga Luna MD Liver Ultrasound 01/16/18 Signed Impressions: Service Date/Time: January 16:59 - CONCLUSION: 1. Hepatomegaly and diffuse increased hepatic echogenicity without intrahepatic ductal dilatation or focal mass. Findings are most consistent with hepatic steatosis or medical liver disease. 2. Trace ascites. 3. Cholelithiasis with gallbladder wall prominence and trace pericholecystic fluid. These findings may be seen in the setting of chronic liver disease or ascites and significantly limit ultrasound evaluation for acute cholecystitis. If there is significant clinical concern regarding acute cholecystitis, HIDA scan may be performed to evaluate for cystic duct patency. Nam Tinajero MD Head CT 01/14/182000 Signed Impressions: Service Date/Time: Sunday, January 14, 2018 20:22 - CONCLUSION: Normal examination for a patient of this age. Marcio Hansen MD Lower Extremity CT 01/14/18 Signed Impressions: Service Date/Time: Sunday, January 14, 2018 23:38 - CONCLUSION: 1. CT findings characteristic of a severe Charcot foot in the mid and hindfoot with collapse of the plantar arch. Osteoarthritic changes of the first MTP joint 2. However, findings all appear to be chronic with no acute osseous injury Marquis Mcdonald MD Abdomen/Pelvis CT 01/14/18 0000 Signed Impressions: Service Date/Time: Sunday, January 14, 2018 23:35 - CONCLUSION: 1. CT findings suggest volume overload or low oncotic pressures with some flank and mesenteric edema, gallbladder wall thickening and some free fluid in the pelvis. Heart size is somewhat prominent. 2. Bilateral symmetric gynecomastia. Nonspecific findings but can be associated with some chronic disease processes or medications. 3. Left periaortic borderline prominent lymph nodes. Again, nonspecific but may be reactive associated with the aforementioned mesenteric edema. 4. 5.7 cm periumbilical fatty hernia. There is now some fluid along the periphery of the hernia. This could be related to the generalized edema described above although fatty infarction could have a similar radiographic presentation. Please correlate with clinical symptomatology Marquis Mcdonald MD Procedures s/p bedside incision and drainage 01/20/18 Objective Remarks Lower extremity physical exam: Dressing to bilateral LE with sanguinous strikethrough noted Medications and IVs Current Medications Medications (Trade) Dose Ordered Sig/Portia Route Start Time Stop Time Status [place] [place] [facility] [place] 1 [id number] XX 01/14/18 22:45 (Chlorhexidine 2% Cloth) Taper DAILY@04 TOP 01/15/18 04:00 01/11/19 03:59 01/19/18 02:50 (Chlorhexidine 2% Cloth) 3 pack UNSCH PRN TOP 01/14/18 22:45 (Tylenol) 650 mg Q4H PRN PO 01/15/18 01:00 (Aspirin) 325 mg DAILY PO 01/15/18 09:00 01/20/18 09:30 (Romazicon Inj) 0.2 mg Q1M PRN IV PUSH 01/16/18 01:00 (Ativan) 1 mg Q4H PRN PO 01/16/18 01:00 Future Hold (Ativan Inj) 1 mg Q4H PRN IV PUSH 01/16/18 01:00 Future Hold (Ativan) 2 mg Q2H PRN PO 01/16/18 01:00 Future Hold (Ativan Inj) 2 mg Q2H PRN IV PUSH 01/16/18 01:00 Future Hold 01/16/18 09:08 (Ativan Inj) 2 mg Q1H PRN IV PUSH 01/16/18 01:00 Future Hold (Ativan Inj) 2 mg Q15M PRN IV PUSH 01/16/18 01:00 Future Hold Cefazolin Sodium/ Dextrose 50 ml @ 100 mls/hr Q12H IV 01/16/18 15:00 01/22/18 14:59 Sodium Chloride 1,000 ml @ 0 mls/hr Q0M PRN OTHER 01/17/18 17:00 01/20/18 11:15 (Heparin Inj) 8,000 units UNSCH PRN IV FLUSH 01/17/18 17:00 Sodium Chloride 1,000 ml @ 200 mls/hr Q5H PRN IV 01/17/18 17:00 01/18/18 09:14 Sodium Chloride 1,000 ml @ 0 mls/hr Q0M PRN OTHER 01/17/18 17:00 (Mannitol Inj) 12.5 gm UNSCH PRN IV 01/17/18 17:00 Albumin Human 100 ml @ 60 mls/hr UNSCH PRN IV 01/17/18 17:00 (NS Flush) 5 ml UNSCH PRN IV FLUSH 01/17/18 17:00 (Heparin Inj) UNSCH PRN .XX 01/17/18 17:00 01/20/18 11:15 (Gentamicin Inj) 20 mg UNSCH PRN OTHER 01/17/18 17:00 01/20/18 11:15 (Zofran Inj) 4 mg UNSCH PRN IV PUSH 01/17/18 17:00 (Tylenol) 650 mg UNSCH PRN PO 01/17/18 17:00 (Benadryl) 25 mg UNSCH PRN PO 01/17/18 17:00 (Nitrostat Sl) 0.4 mg UNSCH PRN SL 01/17/18 17:00 (Catapres) 0.1 mg UNSCH PRN PO 01/17/18 17:00 (Gelfoam 12 Mm/7 Mm Top) 1 foam UNSCH PRN TOP 01/17/18 17:00 (NovoLOG SUPPLEMENTAL SCALE) 1 ACHS SLIDING SCALE SQ 01/19/18 12:00 01/21/18 21:00 (D50w (Vial) Inj) 50 ml UNSCH PRN IV PUSH 01/19/18 09:15 01/22/18 10:01 (Glucagon Inj) 1 mg UNSCH PRN OTHER 01/19/18 09:15 (Bactroban Nasal 2% Oint) 1 applic Taper BID EACH NARE 01/19/18 21:00 01/15/19 20:59 01/21/18 21:25 (Vistaril) 50 mg BID PO 01/19/18 10:00 01/21/18 21:25 Patient Own Medication PT OWN MED: THIORIDAZINE DOSE 10... DAILY PO 01/20/18 09:00 Future Hold (Morphine Inj) 1 mg Q4H PRN IV PUSH 01/19/18 10:00 01/22/18 16:07 (Ativan Inj) 1 mg Q4H PRN IV PUSH 01/19/18 09:15 01/20/18 01:04 (NS Flush) 2 ml UNSCH PRN IV FLUSH 01/19/18 09:15 01/21/18 21:42 (NS Flush) 2 ml BID IV FLUSH 01/19/18 21:00 01/22/18 09:00 (Protonix) 40 mg DAILY PO 01/20/18 09:00 01/21/18 09:23 (Zofran Inj) 4 mg Q6H PRN IV PUSH 01/19/18 09:15 (Albuterol Neb) 2.5 mg Q2HR NEB PRN INH 01/19/18 09:15 (Lizz-Colace) 1 tab BID PO 01/19/18 21:00 01/21/18 21:25 (Dulcolax Supp) 10 mg DAILY PRN RECTAL 01/19/18 09:15 (Lactulose Liq) 30 ml DAILY PO 01/20/18 09:00 01/21/18 09:23 (Miralax) 17 gm DAILY PO 01/20/18 09:00 01/21/18 09:23 (Levemir Inj) 8 units DAILY SQ 01/20/18 09:00 01/21/18 09:25 (Apresoline Inj) 10 mg Q1H PRN IV PUSH 01/19/18 09:45 01/20/18 21:35 (Nitroglycerin 2% Oint) 2 inch Q6H PRN TOPICAL 01/19/18 09:45 Dextrose 1,000 ml @ 30 mls/hr Q24H IV 01/22/18 10:15 01/22/18 10:30 Assessment and Plan Assessment and Plan 57-year-old male with bilateral lower extremity plantar ulcers and abscess s/p bedside I&D Patient examined and evaluated nurse present bedside consent signed for bilateral foot debridement and irrigation with wound vac placement NPO after midnight has been maintained Patient will need to remain nonweightbearing to bilateral lower extremity secondary to plantar foot wounds Juani Vivar DPM January 22, 2018 19:16
[2018-01-22] MEDS ORDERED: KETAMINE HCL 50 MG/5 ML SYRINGE ONE (19:25)
--- NOTE | 2018-01-22 19:41 | ECHRPT ---
Indication: POSS SEPSIS, ENDOCARDITIS CONCLUSIONS Normal left ventricular size. Mild concentric left ventricular hypertrophy. The left ventricular systolic function is normal with an estimated ejection fraction in the range of 55-60%. The left atrial size is mildly dilated. The right atrial size is [id number] dilated. Qrtqo-br-[id number] mitral valve regurgitation. Aortic valve sclerosis is present. There is mild tricuspid valve regurgitation. Trace to small pericardial effusion. A right sided pleural effusion is present. BP: 147 / 70 HR: 60 Rhythm: Sinus MEASUREMENTS (Male / Female) Normal Values Technical Quality:Fair 2D ECHO LV Diastolic Diameter PLAX 5.4 cm 4.2 - 5.9 / 3.9 - 5.3 cm LV Systolic Diameter PLAX 3.9 cm IVS Diastolic Thickness 1.3 cm 0.6 - 1.0 / 0.6 - 0.9 cm LVPW Diastolic Thickness 1.3 cm 0.6 - 1.0 / 0.6 - 0.9 cm LV Relative Wall Thickness 0.5 RV Internal Dim ED PLAX 3.4 cm LVOT Diameter 2.3 cm Aortic Root Diameter 3.7 cm LA Systolic Diameter LX 3.9 cm 3.0 - 4.0 / 2.7 - 3.8 cm M-MODE AV Cusp Separation MM 1.8 cm DOPPLER AV Peak Velocity 248.5 cm/s AV Peak Gradient 24.7 mmHg AV Mean Gradient 13.0 mmHg AV Velocity Time Integral 52.8 cm LVOT Peak Velocity 104.0 cm/s LVOT Peak Gradient 4.3 mmHg LVOT Velocity Time Integral 21.1 cm AV Area Cont Eq vti 1.7 cm AV Area Cont Eq pk 1.7 cm Mitral E Point Velocity 133.0 cm/s Mitral A Point Velocity 83.9 cm/s Mitral E to A Ratio 1.6 LV E' Lateral Velocity 5.5 cm/s Mitral E to LV E' Lateral Ratio 24.4 LV E' Septal Velocity 5.4 cm/s Mitral E to LV E' Septal Ratio 24.8 TR Peak Velocity 246.0 cm/s TR Peak Gradient 24.2 mmHg Right Atrial Pressure 10.0 mmHg Pulmonary Artery Systolic Pressu 34.2 mmHg Right Ventricular Systolic Press 34.2 mmHg PV Peak Velocity 75.9 cm/s PV Peak Gradient 2.3 mmHg FINDINGS LEFT VENTRICLE Normal left ventricular size. Mild concentric left ventricular hypertrophy. The left ventricular systolic function is normal with an estimated ejection fraction in the range of 55-60%. RIGHT VENTRICLE Normal right ventricular size and systolic function. LEFT ATRIUM The left atrial size is mildly dilated. RIGHT ATRIUM The right atrial size is [id number] dilated. ATRIAL SEPTUM No atrial level shunt is demonstrated by color flow Doppler interrogation. AORTA The aortic root and proximal ascending aorta are normal in size on limited imaging. MITRAL VALVE Auedf-hl-ajqa mitral valve regurgitation. AORTIC VALVE Aortic valve sclerosis is present. TRICUSPID VALVE There is mild tricuspid valve regurgitation. PULMONARY VALVE No pulmonary valve regurgitation or stenosis. VESSELS The inferior vena cava is normal in size. PERICARDIUM Trace to small pericardial effusion. A right sided pleural effusion is present. Shabnam De MD, FACC (Electronically Signed) Final Date:22 Jan 2018 19:40
--- NOTE | 2018-01-22 21:10 | HHI.PR ---
Immediate Post Op Note Procedure Date: January 22, 2018 Pre Op Diagnosis: Bilateral plantar foot ulcerations Post Op Diagnosis: Bilateral plantar foot ulcerations Surgeon: Juani Vivar Water Tanker Driver(s): None Procedure: Bilateral foot debridement and irrigation with wound vac placement to left foot Findings: None Additional Information: None Complications: None Specimen(s) removed: Left foot soft tissue for pathology Estimated blood loss: 30cc Anesthesia: General Drains: None Patient to: PACU Patient Condition: Good Juani Vivar DPM January 22, 2018 21:10
[2018-01-22] MEDS ORDERED: Post-op Orders (for Pharmacy) XX ONE (21:15)
[2018-01-22] MEDS ORDERED: NALOXONE HCL 0.4 MG/ML AMP IV PUSH PRN (21:15)
[2018-01-22] MEDS ORDERED: MIDAZOLAM HCL 2 MG/2 ML VIAL ONE (21:19)
--- NOTE | 2018-01-22 21:33 | MR ---
cc: Juani Vivar DPM, Jessica I DPM DATE: 01/22/2018 SURGEON: Juani Hernandez DPM MAINTENANCE WORKER MUNICIPAL: None. PREOPERATIVE DIAGNOSIS: Bilateral plantar foot ulcerations. POSTOPERATIVE DIAGNOSIS: Bilateral plantar foot ulcerations. ANESTHESIA: IV sedation, local infiltrate of 10 mL infiltrated to bilateral foot. HEMOSTASIS: None. ESTIMATED BLOOD LOSS: 30 mL MATERIALS: None. INJECTABLES: None. INDICATIONS FOR PROCEDURE: The patient is a 57-year-old male who is in the ICU for a bilateral foot infections. Bilateral foot incision and drainage were performed bedside 48 hours ago, however ulcerations continues to have a fibrotic necrotic tissue with purulent drainage noted. Decision was made to take him to the OR. The patient understands all risks, benefits, complications of the procedure. He wishes to proceed with surgical intervention. Mother bedside, she agrees with surgical intervention as well. PROCEDURE IN DETAIL: The patient was brought to the operating room, placed on the operating room table in supine position. Bilateral lower extremities were prepped and draped. Attention was then directed to the left foot where all nonviable tissue was excised with a 15 blade. Full thickness excisional debridement was performed to bone, subcutaneous tissue, and tendon. Site was copiously irrigated. Following copious irrigation, a wound VAC was placed to the left foot functioning at 125 mmHg. Attention was directed to the right foot. Full thickness excisional debridement was performed to subcutaneous tissue, tendon, muscle and bone. All nonviable tissue was excised. Foot was dressed with Surgicel, Adaptic, 4 x 4s. We will take down dressing tomorrow and change it. The patient tolerated the procedure and anesthesia well. Wound VAC to stay on left foot for 48 hours. RUSSELL Topete/ , 09:14 PM , 09:32 PM [id number]
[2018-01-23] VITALS (21 sets, daily range): BP systolic 130–198; BP diastolic 56–92; PULSE 66–146; RESP 9–16; TEMP 98–98.8; O2SAT 93–100
[2018-01-23] MEDS: MORPHINE SULFATE 4 MG/ML INJ IV PUSH PRN ×5 (02:13→23:57)
[2018-01-23] MEDS: ceFAZolin 2 GM PREMIX 50 ML IV SCH ×2 (02:15→11:56)
[2018-01-23] MEDS: CHLORHEXIDINE GLUCONATE 2 % 1 PACK (2 CLOTHS) TOP SCH (02:15)
[2018-01-23] MEDS: SODIUM CHLORIDE 0.9% FLUSH 10 ML FLUSH IV FLUSH PRN (02:15)
[2018-01-23 05:52] LABS: AUTOMATED NEUTROPHIL # 17.7 TH/MM3 (1.8-7.7); BASOPHIL # 0.1 TH/MM3 (0-0.2); BASOPHIL % 0.3 % (0.0-2.0); EOSINOPHIL # 0.4 TH/MM3 (0-0.4); EOSINOPHIL % 1.7 % (0.0-4.0); LYMPHOCYTE # 1.9 TH/MM3 (1.0-4.8); MEAN CELL VOLUME 89.3 FL (80.0-100.0); MEAN CORPUSCULAR HEMOGLOBIN 29.6 PG (27.0-34.0); MEAN CORPUSCULAR HGB CONC 33.2 % (32.0-36.0); MEAN PLATELET VOLUME 8.9 FL (7.0-11.0); MONO % 6.3 % (0.0-8.0); MONOCYTE # 1.3 TH/MM3 (0-0.9); NEUT % 82.7 % (16.0-70.0); PLATELET COUNT 254 TH/MM3 (150-450); RED BLOOD COUNT 2.12 MIL/MM3 (4.50-5.90); RED CELL DISTRIBUTION WIDTH 16.1 % (11.6-17.2); WHITE BLOOD COUNT 21.4 TH/MM3 (4.0-11.0)
[2018-01-23 06:02] LABS: HEMATOCRIT 18.9 % (39.0-51.0); HEMOGLOBIN 6.3 GM/DL (13.0-17.0)
[2018-01-23 06:05] LABS: INTERNATIONAL NORMALIZED RATIO 1.5 RATIO; PROTHROMBIN TIME - PATIENT 15.4 SEC (9.8-11.6)
[2018-01-23 06:22] LABS: ALBUMIN 1.2 GM/DL (3.4-5.0); ALKALINE PHOSPHATASE 252 U/L (45-117); ALT (GPT) LESS THAN 6 U/L (12-78); AST (GOT) 19 U/L (15-37); BICARBONATE 27.5 MEQ/L (21.0-32.0); BLOOD UREA NITROGEN 33 MG/DL (7-18); CALCIUM 7.3 MG/DL (8.5-10.1); CHLORIDE 105 MEQ/L (98-107); CREATININE 2.15 MG/DL (0.60-1.30); GLOMERULAR FILTRATION RATE 32 ML/MIN (>89); GLUCOSE,RANDOM 91 MG/DL (74-106); MAGNESIUM 1.8 MG/DL (1.5-2.5); PHOSPHORUS 3.6 MG/DL (2.5-4.9); SODIUM (NA) 139 MEQ/L (136-145); TOTAL BILIRUBIN ADULT 0.5 MG/DL (0.2-1.0); TOTAL PROTEIN 5.8 GM/DL (6.4-8.2)
[2018-01-23] MEDS ORDERED: SODIUM CHLOR 0.9% 250 ML INJ 250 ML IV ONE (06:45)
[2018-01-23 07:23] LABS: BANDS 2 % (0-6); BASOPHILS 1 % (0-2); LYMPHOCYTES 3 % (9-44); METAMYELOCYTES 2 % (0-1); MONOCYTES 2 % (0-8); MYELOCYTES 2 % (0-0); NEUTROPHIL # MANUAL DIFF 19.9 TH/MM3 (1.8-7.7); POLYS (SEG NEUTROPHILS) 87 % (16-70)
--- NOTE | 2018-01-23 07:29 | HHI.PR ---
Subjective Remarks in no acute distress. awake and alert. no fever. pain is fairly controlled. H/H trend noted. d/w the RN and no other acute issues over night. Objective Vitals Vital Signs Date Time Temp Pulse Resp B/P (MAP) Pulse Ox O2 Delivery O2 Flow Rate FiO2 01/23/18 06:00 73 01/23/18 04:00 74 01/23/18 04:00 98.4 74 11 141/63 (89) 93 01/23/18 02:00 76 01/23/18 00:00 98.7 75 9 161/70 (100) 94 01/23/18 00:00 71 01/22/18 22:00 76 01/22/18 21:55 98.9 73 16 144/67 (92) 01/22/18 20:00 83 01/22/18 18:00 71 01/22/18 16:00 70 01/22/18 16:00 98.3 70 11 154/69 (97) 95 01/22/18 14:00 69 01/22/18 12:00 69 01/22/18 12:00 98.3 69 10 151/70 (97) 96 01/22/18 10:00 73 01/22/18 08:37 97 01/22/18 08:00 66 01/22/18 08:00 98.7 66 14 133/62 (85) 97 I/O 01/22/18 01/22/18 01/22/18 01/23/18 01/23/18 01/23/18 07:00 15:00 23:00 07:00 15:00 23:00 Intake Total 250 ml 1050 ml 50 ml 800 ml Output Total 950 ml 680 ml 900 ml Balance -700 ml 1050 ml -630 ml -100 ml Intake Oral 250 ml 800 ml IV Total 1050 ml Other 50 ml Output Urine Total 800 ml 650 ml 900 ml Stool Total 150 ml Estimated Blood Loss 30 ml # Bowel Movements 1 Result Diagram: 01/23/18 0500 01/23/18 0500 Imaging Last Impressions Chest X-Ray 01/21/18 0600 Signed Impressions: Service Date/Time: Sunday, January 21, 2018 03:50 - CONCLUSION: Normal examination. Right IJ Vas-Cath in good position Duncan Zaldivar MD Foot MRI 5/6/18 0000 Signed Impressions: Service Date/Time: Friday, January 19, 2018 12:36 - CONCLUSION: 1. 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 These findings are very similar to the prior study 2016. 2. Plantar cutaneous defect and extensive midfoot plantar superficial soft tissue edema extending into the plantar musculature. These findings are suspicious for infection in the proper clinical setting. Elongated adjacent more medial and distal plantar soft tissue ovoid fluid collection may represent a pseudo-bursa or abscess. More ill-defined edema is seen extending laterally to the base of the fifth metatarsal with likely early osteomyelitis at this location. This lateral extension is a new finding when compared to the prior study of 2016. 3. Posterior superficial soft tissue edema the heel with mild adjacent bony edema is very similar to the prior study with no definitive osteomyelitis. Ganga Luna MD Abdomen X-Ray 01/19/18 Signed Impressions: Service Date/Time: Friday, January 19, 2018 10:57 - CONCLUSION: Nonspecific bowel gas pattern. Mildly distended air-filled stomach. Ganga Luna MD Liver Ultrasound 01/16/18 Signed Impressions: Service Date/Time: January 16:59 - CONCLUSION: 1. Hepatomegaly and diffuse increased hepatic echogenicity without intrahepatic ductal dilatation or focal mass. Findings are most consistent with hepatic steatosis or medical liver disease. 2. Trace ascites. 3. Cholelithiasis with gallbladder wall prominence and trace pericholecystic fluid. These findings may be seen in the setting of chronic liver disease or ascites and significantly limit ultrasound evaluation for acute cholecystitis. If there is significant clinical concern regarding acute cholecystitis, HIDA scan may be performed to evaluate for cystic duct patency. Nam Tinajero MD Head CT 01/14/182000 Signed Impressions: Service Date/Time: Sunday, January 14, 2018 20:22 - CONCLUSION: Normal examination for a patient of this age. Marcio Hansen MD Lower Extremity CT 01/14/18 Signed Impressions: Service Date/Time: Sunday, January 14, 2018 23:38 - CONCLUSION: 1. CT findings characteristic of a severe Charcot foot in the mid and hindfoot with collapse of the plantar arch. Osteoarthritic changes of the first MTP joint 2. However, findings all appear to be chronic with no acute osseous injury Marquis Mcdonald MD Abdomen/Pelvis CT 01/14/18 0000 Signed Impressions: Service Date/Time: Sunday, January 14, 2018 23:35 - CONCLUSION: 1. CT findings suggest volume overload or low oncotic pressures with some flank and mesenteric edema, gallbladder wall thickening and some free fluid in the pelvis. Heart size is somewhat prominent. 2. Bilateral symmetric gynecomastia. Nonspecific findings but can be associated with some chronic disease processes or medications. 3. Left periaortic borderline prominent lymph nodes. Again, nonspecific but may be reactive associated with the aforementioned mesenteric edema. 4. 5.7 cm periumbilical fatty hernia. There is now some fluid along the periphery of the hernia. This could be related to the generalized edema described above although fatty infarction could have a similar radiographic presentation. Please correlate with clinical symptomatology Marquis Mcdonald MD Objective Remarks GENERAL: This is a well-nourished, well-developed patient, in no apparent distress. CARDIOVASCULAR: Regular rate and regular rhythm without murmurs, gallops, or rubs. RESPIRATORY: Clear to auscultation. Breath sounds equal bilaterally. No wheezes , rales, or rhonchi. GASTROINTESTINAL: Abdomen soft, non-tender, nondistended. Normal, active bowel sounds MUSCULOSKELETAL: both feet covered with clean dressing/ wound vac in place. NEURO: Alert & Oriented x4 to person, place, time, situation. Moves all ext x4 Procedures Vas-cath placement/ debridement of both feet/ wound vac placement. Medications and IVs Inpatient Medications Acetaminophen (Tylenol) 650 mg UNSCH PRN PO for headach, pain, temp > 101F; Start 01/17/18 at 17:00 Albumin Human 100 ml @ 60 mls/hr UNSCH PRN IV WITH DIALYSIS; Start 01/17/18 at 17:00 Albuterol Sulfate (Albuterol Neb) 2.5 mg Q2HR NEB PRN INH SOB/WHEEZING; Start 01/19/18 at 09:15 Albuterol/ Ipratropium (Duoneb Neb) 1 ampule Q2HR NEB PRN INH WHEEZING; Start 01/14/18 at 22:45; Stop 01/19/18 at 09:10; Status DC Aspirin (Aspirin) 325 mg DAILY PO Last administered on 01/20/18at 09:30; Start at 09:00 Bisacodyl (Dulcolax Supp) 10 mg DAILY PRN RECTAL SEVERE CONSITIPATION; Start at 09:15 Calcium Gluconate 2 gm/Dextrose 120 ml @ 120 mls/hr ONCE ONCE IV Last administered on 01/18/18at 12:06; Start 01/18/18 at 11:15; Stop 01/18/18 at 12:14; Status DC Cefazolin Sodium/ Dextrose 50 ml @ 100 mls/hr Q12H IV Last administered on 07/03at 02:15; Start 01/16/18 at 15:00 Chlorhexidine Gluconate (Chlorhexidine 2% Cloth) 3 pack UNSCH PRN TOP HYGIENIC CARE; Start 01/14/18 at 22:45 Clindamycin/ Sodium Chloride 50 ml @ 100 mls/hr Q6H IV Last administered on 01/15/18at 15:45; Start 01/15/18 at 04:00; Stop 01/15/18 at 22:46; Status DC Clonidine (Catapres) 0.1 mg UNSCH PRN PO for BP > 180/100 X 2 readings; Start 01/17/18 at 17:00 Daptomycin 800 mg/ Sodium Chloride 100 ml @ 200 mls/hr Q48H IV Last administered on 01/16/18at 00:30; Start 01/16/18 at 00:00; Stop 01/16/18 at 14:36; Status DC Dextrose 1,000 ml @ 30 mls/hr Q24H IV Last administered on 01/22/18at 10:30; Start 01/22/18 at 10:15 Dextrose (D50w (Vial) Inj) 50 ml UNSCH PRN IV PUSH HYPOGLYCEMIA-SEE COMMENTS Last administered on 01/22/18at 10:01; Start 01/19/18 at 09:15 Diphenhydramine HCl (Benadryl) 25 mg UNSCH PRN PO for hives/itching/anaphylaxis ; Start 01/17/18 at 17:00 Famotidine (Pepcid Inj) 10 mg Q12HR IV PUSH Last administered on 01/19/18at 07:47 ; Start 01/15/18 at 21:00; Stop 01/19/18 at 09:01; Status DC Fentanyl Citrate (fentaNYL INJ) 100 mcg ONCE ONCE IV PUSH Last administered on 01/17/18at 16:50; Start 01/17/18 at 16:45; Stop 01/17/18 at 16:59; Status DC Flumazenil (Romazicon Inj) 0.2 mg Q1M PRN IV PUSH SEE LABEL COMMENTS; Start 01/16/18 at 01:00 Gelatin (Gelfoam 100 Top) 1 foam ONCE ONCE TOPICAL Last administered on at 04:34; Start 01/21/18 at 04:15; Stop 01/21/18 at 04:16; Status DC Gelatin (Gelfoam 12 Mm/7 Mm Top) 1 foam UNSCH PRN TOP SEE LABEL COMMENTS; Start 01/17/18 at 17:00 Gentamicin Sulfate (Gentamicin Inj) 20 mg UNSCH PRN OTHER WITH DIALYSIS Last administered on 01/20/18at 11:15; Start 01/17/18 at 17:00 Glucagon (Glucagon Inj) 1 mg UNSCH PRN OTHER HYPOGLYCEMIA-SEE COMMENTS; Start 01/19/18 at 09:15 Glycerin (Glycerin Adult Supp) 2 gm ONCE ONCE RECTAL Last administered on at 09:49; Start 01/19/18 at 09:15; Stop 01/19/18 at 09:21; Status DC Heparin Sodium (Porcine) (Heparin Inj) 5,000 units Q8H SQ ; Start 01/19/18 at 10: 00; Stop 01/19/18 at 10:00; Status DC Hydralazine HCl (Apresoline Inj) 10 mg Q1H PRN IV PUSH SBP>160, DBP>90 Last administered on 01/20/18at 21:35; Start 01/19/18 at 09:45 Hydrocortisone Sodium Succinate (SoluCORTEF INJ) 50 mg DAILY IV PUSH Last administered on 01/20/18at 09:30; Start 01/19/18 at 09:00; Stop 01/21/18 at 08:59; Status DC Hydroxyzine Pamoate (Vistaril) 50 mg BID PO Last administered on 01/22/18at 21:29 ; Start 01/19/18 at 10:00 Insulin Aspart (NovoLOG SUPPLEMENTAL SCALE) 1 ACHS SLIDING SCALE SQ ; Start 01/19/18 at 12:00; Stop 01/19/18 at 12:00; Status DC Insulin Detemir (Levemir Inj) 10 units ONCE ONCE SQ Last administered on at 10:07; Start 01/19/18 at 10:00; Stop 01/19/18 at 10:01; Status DC Insulin Human Regular 100 units/ Sodium Chloride 100 ml @ 0.5 mls/hr TITRATE PRN IV Blood Glucose Control Last administered on 01/19/18 09:51; Start 01/17/18 at 17:30; Stop 01/19/18 at 09:22; Status DC Lactulose (Lactulose Liq) 30 ml DAILY PO Last administered on 01/21/18at 09:23; Start 01/20/18 at 09:00 Lorazepam (Ativan Inj) 1 mg Q4H PRN IV PUSH Agitation Last administered on 01:04; Start 01/19/18 at 09:15 Lorazepam (Ativan) 2 mg Q2H PRN PO CIWA 11-14; Start 01/16/18 at 01:00; Status Future Hold Mannitol (Mannitol Inj) 12.5 gm UNSCH PRN IV WITH DIALYSIS; Start 01/17/18 at 17 :00 Midazolam HCl (Versed Inj) 2.5 mg ONCE ONCE IV PUSH Last administered on at 16:50; Start 01/17/18 at 16:45; Stop 01/17/18 at 17:00; Status DC Miscellaneous Information [place] [place] 1 ONCE ONCE .XX Last administered on 01/19/18at 10:07; Start 01/19/18 at 09:15; Stop 01/19/18 at 09:19; Status DC Miscellaneous Information (Misc DC Insulin 2 hrs post Levemir) 1 ONCE ONCE .XX Last administered on 01/19/18at 10:08; Start 01/19/18 at 09:15; Stop 01/19/18 at 09:18; Status DC Miscellaneous Information ([facility] [place] Nursing Information) 1 Q361D XX ; Start 01/14/18 at 22:45 Miscellaneous Information ([facility] [place] Post-op Orders (for Pharmacy)) STAT ONCE XX ; Start 01/22/18 at 21:15; Stop 01/22/18 at 21:17; Status DC Morphine Sulfate (Morphine Inj) 1 mg Q4H PRN IV PUSH pain 6-10 Last administered on 01/23/18at 06:04; Start 01/19/18 at 10:00 Mupirocin (Bactroban Nasal 2% Oint) 1 applic Taper BID EACH NARE Last administered on 01/22/18at 21:30; Start 01/19/18 at 21:00; Stop 01/15/19 at 20:59 Naloxone HCl (Narcan Inj) 0.4 mg UNSCH PRN IV PUSH SEE LABEL COMMENTS; Start at 21:15 Nitroglycerin (Nitroglycerin 2% Oint) 2 inch Q6H PRN TOPICAL SBP>160, DBP>90; Start 01/19/18 at 09:45 Nitroglycerin (Nitrostat Sl) 0.4 mg UNSCH PRN SL CHEST PAIN; Start 01/17/18 at 17:00 Ondansetron HCl (Zofran Inj) 4 mg Q6H PRN IV PUSH NAUSEA OR VOMITING; Start 01/19/18 at 09:15 Pantoprazole Sodium (Protonix) 40 mg DAILY PO Last administered on 01/21/18at 09: 23; Start 01/20/18 at 09:00 Patient Own Medication PT OWN MED: THIORIDAZINE DOSE 10... DAILY PO ; Start 01/20 at 09:00; Status Future Hold Phytonadione (Mephyton Liq) 5 mg ONCE ONCE PO Last administered on 01/19/18at 10 :13; Start 01/19/18 at 10:15; Stop 01/19/18 at 10:16; Status DC Piperacillin Sod/ Tazobactam Sod 50 ml @ 100 mls/hr Q8H IV Last administered on 01/19/18at 07:46; Start 01/17/18 at 17:00; Stop 01/19/18 at 09:29; Status DC Polyethylene Glycol (Miralax) 17 gm DAILY PO Last administered on 01/21/18 09: 23; Start 01/20/18 at 09:00 Potassium Chloride (KCl) 20 meq ONCE ONCE PO Last administered on 01/21/18at 11: 48; Start 01/21/18 at 09:45; Stop 01/21/18 at 10:08; Status DC Senna/Docusate Sodium (Lizz-Colace) 1 tab BID PO Last administered on 01/22/18at 21:29; Start 01/19/18 at 21:00 Sodium Bicarbonate 150 meq/Dextrose 1,000 ml @ 100 mls/hr Q10H IV Last administered on 01/17/18at 23:17; Start 01/16/18 at 16:15; Stop 01/18/18 at 11:01; Status DC Sodium Bicarbonate (Sodium Bicarbonate 8.4% Inj) 50 meq ONCE ONCE IV PUSH Last administered on 01/16/18at 17:59; Start 01/16/18 at 16:15; Stop 01/16/18 at 16: 21; Status DC Sodium Chloride 250 ml @ 15 mls/hr ONCE ONCE IV ; Start 01/23/18 at 06:45; Stop 01/23/18 at 23:24 Sodium Chloride (NS Flush) 2 ml BID IV FLUSH Last administered on 01/22/18at 21: 30; Start 01/19/18 at 21:00 Ziprasidone (Geodon Inj) 10 mg Q12H PRN IM AGITATION, breakthrough; Start at 09:15; Stop 01/22/18 at 09:14; Status DC A/P Assessment and Plan Metabolic encephalopathy secondary to sepsis -resolving Schizophrenia Posttraumatic stress disorder 01/19 - resume Thioridazine 200 mg daily with hydroxyzine 50 mg/twice daily home medications for schizophrenia Acetaminophen 650 mg p.o. every 4 hours as needed fever/pain 1 through 5 Morphine sulfate 1 mg IV every 4 hours as needed pain 6 - 10 Lorazepam 1 mg IV every 4 hours as needed agitation Ziprasidone 10 mg IM every 12 hours as needed breakthrough agitation. Start date 01/19 maximum 3 days At home on hydrocodone/acetaminophen 10/325 1 tablet twice daily as needed pain Septic shock -resolved History of hypertension Hold all antihypertensive medications in the setting of septic shock, restart gradually At home on amlodipine 10 mg p.o. daily for hypertension As needed Nitropaste/hydralazine for hypertension breakthrough Nonoliguric BISHOP Hypokalemia Maintain almaraz-for accurate I's and O's in a critically ill patient 01/16 Lasix 40 mg IV 1 dose 01/17 vascular cath placement had HD on 01/18 and 01/20- HD on hold for now per nephrology. Nephrology following-IHD per their recommendations Avoid nephrotoxic drugs Hepatitis C antibody positive. Genotype not detected and viral load pending Elevated LFTs- Shock Liver Hepatomegaly Cholelithiasis Monitor CMP 01/16 ultrasound of the liver- Trace ascites. Findings most consistent with hepatic steatosis or liver disease. Cholelithiasis with gallbladder wall prominence but trace pericholecystic fluid Hepatitis C IgG antibody positive GI consulted appreciate recommendations; f/u with GI as outpatient. Noted VICKIE positive. Normocytic anemia -hemoglobin slowly trending down Group A strep septicemia Diabetic foot infection and abscess status post drainage and debridement on 01/20 Septic shock Coagulopathy -INR remains elevated Transfused 2 units PRBC on 01/21 Transfused 2 units FFP on 01/21 as well will transfuse with PRBC again today and continue to monitor H/H. s/p debridement of both feet along with wound vac placement- podiatry following. On cefazolin, followed by ID Pertinent microbiology 01/14 -blood cultures 2 beta strep group A 01/15 and 01/16 -wound -beta strep group A 01/16-01/17 -blood cultures 2 -no growth 01/17 -UA -no growth Diabetes mellitus on D10 at 30 cc/h will resume diet and stop D10 if no further plans for surgery and blood sugar stable. Glipizide 10 mg p.o. twice daily home medication held Prophylaxis: GI Prophylaxis Pantoprazole DVT Prophylaxis -- SCDs Teds and SCDs. Heparin SQ on hold in the setting of elevated INR. transfer to telemetry within the next 24 hrs if stable. Joshua Black MD January 23, 2018 07:29
[2018-01-23] MEDS: SODIUM CHLORIDE 0.9% FLUSH 10 ML FLUSH IV FLUSH SCH ×2 (07:48→20:19)
[2018-01-23] MEDS: MUPIROCIN 2% OINT 1 APPLIC/GM SYR EACH NARE SCH ×2 (07:48→20:19)
[2018-01-23] MEDS: INSULIN ASPART SUPPLEMENTAL SCALE SQ SCH ×4 (07:48→20:21)
[2018-01-23] MEDS: ASPIRIN 325 MG TAB PO SCH (07:49)
[2018-01-23] MEDS: LACTULOSE SYRUP 20 GM/30 ML CUP PO SCH (07:49)
[2018-01-23] MEDS: PANTOPRAZOLE SOD 40 MG DELAYED RELEASE TAB PO SCH (07:49)
[2018-01-23] MEDS: INSULIN DETEMIR 100 UNITS/ML VIAL SQ SCH (07:49)
[2018-01-23] MEDS: POLYETHYLENE GLYCOL 17 GM PKG PO SCH (07:50)
[2018-01-23] MEDS: DOCUSATE SODIUM 50 MG/SENNA 8.6 MG TAB PO SCH ×2 (07:50→20:19)
--- NOTE | 2018-01-23 09:57 | HHI.NPPN ---
Subjective Renal Failure: Acute Interval History Worsening anemia. He is resting, receiving 2 units PRBC. Non oliguric. Creatinine slightly worse but overall stable. (Laura Quesada) Review of Systems General Constitutional: Fatigue (Laura Quesada) Heme-Lymph Heme-Lymph: Bleeding (Laura Quesada) Skin Skin Remarks wounds to bilateral feet. (Laura Quesada) Objective Data Data Vital Signs Date Time Temp Pulse Resp B/P (MAP) Pulse Ox O2 Delivery O2 Flow Rate FiO2 01/23/18 08:28 94 21 01/23/18 07:56 98.4 74 14 138/62 01/23/18 07:41 98.1 70 16 130/60 01/23/18 06:00 73 01/23/18 04:00 74 01/23/18 04:00 98.4 74 11 141/63 (89) 93 01/23/18 02:00 76 01/23/18 00:00 98.7 75 9 161/70 (100) 94 01/23/18 00:00 71 01/22/18 22:00 76 01/22/18 21:55 98.9 73 16 144/67 (92) 01/22/18 20:00 83 01/22/18 18:00 71 01/22/18 16:00 70 01/22/18 16:00 98.3 70 11 154/69 (97) 95 01/22/18 14:00 69 01/22/18 12:00 69 01/22/18 12:00 98.3 69 10 151/70 (97) 96 01/22/18 10:00 73 (Laura Quesada) -: 01/23/18 0500 01/23/18 0500 Microbiology 01/22/18 Fungal Smear - Final, Resulted NO FUNGAL ELEMENTS SEEN. 01/22/18 Fungal Culture, Resulted Pending 01/22/18 Acid Fast Stain, Received Pending 01/22/18 Mycobacterial Culture, Received Pending 01/22/18 Gram Stain - Final, Resulted 01/22/18 Wound Culture, Resulted Pending 01/22/18 Fungal Smear - Final, Resulted NO FUNGAL ELEMENTS SEEN. 01/22/18 Fungal Culture, Resulted Pending 01/22/18 Acid Fast Stain, Received Pending 01/22/18 Mycobacterial Culture, Received Pending 01/22/18 Gram Stain - Final, Resulted 01/22/18 Wound Culture, Resulted Pending Imaging Last 72 hours Impressions Chest X-Ray 01/21/18 0600 Signed Impressions: Service Date/Time: Sunday, January 21, 2018 03:50 - CONCLUSION: Normal examination. Right IJ Vas-Cath in good position Duncan Zaldivar MD Tubes & Lines: Vas-Cath, Almaraz Tubes & Lines Comment rectal tube (Laura Quesada) Physical Exam General Appearance: Comfortable, Sleeping Appearance Remarks disheveled, appears older than stated age (Laura Quesada) Ears & Nose Ears & Nose Exam: Tympanic Membranes Normal (Laura Quesada) Pulmonary Resp Exam: Breath Sounds Equal, No Distress (Laura Quesada) Cardiology CV Exam: Normal Sinus Rhythm, Good Perfusion (Laura Quesada) Gastrointestinal/Abdomen GI Exam: Soft, Non-Tender, Bowel Sounds Present (Laura Quesada) Musculoskeletal MS Exam: Joints Intact, Normal Tone, Unable to Ambulate (Laura Quesada) Integumentary Skin Exam: Warm, Dry Skin Remarks wound on bilateral feet/heals , dressings in place Wound vac in place (Laura Quesada) Extremeties Extremities Exam: Trace Edema (Laura Quesada) Neurologic Neuro Exam: Alert, Awake, Speech Clear, Moving All Extremities (Laura Quesada) Assessment/Plan Discussed Condition With: Patient Assessment Summary: BISHOP/Acute Renal Failure Problem List: (1) Acute worsening of stage 3 chronic kidney disease ICD Codes: N18.3 - Chronic kidney disease, stage 3 (moderate) Plan: Exact baseline is not known. Last year Creatinine was 1.7. BISHOP likely due to ATN from sepsis. He had dialysis 01/18 and 01/20 Renal function is overall stable, no need for dialysis. Monitor urine output, currently adequate most likely will not need additional HD treatments Continue to maintain vascath for now Obtain daily labs. Minimize non essential medications Remove almaraz, apply condom catheter if needed. D/W RN. (2) Sepsis ICD Codes: A41.9 - Sepsis, unspecified organism Status: Resolved Plan: ID following. On Cefazolin, Source is likely infected leg wounds. 4/4 blood cultures positive, wound culture also positive for Group B strep (3) Hyponatremia ICD Codes: E87.1 - Hypo-osmolality and hyponatremia Status: Acute Plan: Stable Documented history of psychogenic polydipsia. However given ETOH abuse, need to consider beer potomania. Improved. (4) Anemia ICD Codes: D64.9 - Anemia, unspecified Status: Chronic Plan: 2 units ordered, most likely due to foot wounds. (Laura Quesada) Plan patient was seen and examined. Agree with above assessment and plan. Remove Almaraz. Renal function is stable. If remains stable tomorrow, remove Vascath. (Shaun Mcmahon MD) Problem Qualifiers (1) Sepsis: Qualified Codes: A41.9 - Sepsis, unspecified organism Laura Quesada January 23, 2018 09:57 Shaun Mcmahon MD January 23, 2018 14:34
[2018-01-23 16:19] LABS: HEMATOCRIT 25.2 % (39.0-51.0); HEMOGLOBIN 8.3 GM/DL (13.0-17.0)
--- NOTE | 2018-01-23 19:44 | HHI.IDPN ---
Note Infectious Disease Note Delayed entry. Patient seen about 5 PM. Patient awake and alert. Notes achiness all over. Underwent debridement and wound VAC placement on the left foot. Afebrile. Blood cultures group A beta strep in 4 bottles. Wound culture from the foot has group A beta strep. Admitted with altered mental status. In the emergency department, his blood pressure was 85/53. The white blood cell count was elevated at 27 and lactic acid level of 3.1. PAST MEDICAL HISTORY: 1. Hypertension. 2. Anxiety/depression. 3. Hiatal hernia. 4. Schizophrenia. 5. Diabetes mellitus. 6. Charcot deformity of the feet. 7. A left pelvic fracture. 8. History of abscess of the right foot. ALLERGIES: VANCOMYCIN, LEVAQUIN, HALOPERIDOL, FLUPHENAZINE, CODEINE. MEDICATIONS: Antibiotics: Ancef. SOCIAL HISTORY: Positive alcohol use reportedly daily. No tobacco. No illicit drugs. Objective: Vital Signs Date Time Temp Pulse Resp B/P (MAP) Pulse Ox O2 Delivery O2 Flow Rate FiO2 01/23/18 19:00 146 01/23/18 18:32 95 148/56 (86) 01/23/18 18:00 88 15 198/92 (127) 100 01/23/18 18:00 88 01/23/18 16:00 67 01/23/18 16:00 98.8 67 16 144/65 (91) 97 01/23/18 14:00 66 01/23/18 12:00 66 01/23/18 12:00 98.6 66 14 148/66 (93) 100 01/23/18 11:30 98.8 66 14 148/66 100 01/23/18 11:13 98.0 67 16 141/63 99 01/23/18 10:00 74 01/23/18 08:28 94 21 01/23/18 08:00 98.1 72 14 136/63 (87) 01/23/18 08:00 72 01/23/18 07:56 98.4 74 14 138/62 01/23/18 07:41 98.1 70 16 130/60 01/23/18 06:00 73 01/23/18 04:00 74 01/23/18 04:00 98.4 74 11 141/63 (89) 93 01/23/18 02:00 76 01/23/18 00:00 98.7 75 9 161/70 (100) 94 01/23/18 00:00 71 01/22/18 22:00 76 01/22/18 21:55 98.9 73 16 144/67 (92) 01/22/18 20:00 83 Laboratory Tests Test 01/21/18 22:08 01/22/18 05:49 01/23/18 05:00 01/23/18 15:47 White Blood Count 19.0 TH/MM3 20.9 TH/MM3 21.4 TH/MM3 Red Blood Count 2.54 MIL/MM3 2.45 MIL/MM3 2.12 MIL/MM3 Hemoglobin 7.5 GM/DL 7.4 GM/DL 6.3 GM/DL 8.3 GM/DL Hematocrit 22.3 % 21.5 % 18.9 % 25.2 % Mean Corpuscular Volume 87.7 FL 87.6 FL 89.3 FL Mean Corpuscular Hemoglobin 29.5 PG 30.3 PG 29.6 PG Mean Corpuscular Hemoglobin Concent 33.6 % 34.6 % 33.2 % Red Cell Distribution Width 15.3 % 16.1 % 16.1 % Platelet Count 221 TH/MM3 231 TH/MM3 254 TH/MM3 Mean Platelet Volume 9.2 FL 9.2 FL 8.9 FL Neutrophils (%) (Auto) 88.1 % 84.7 % 82.7 % Lymphocytes (%) (Auto) 6.4 % 9.6 % 9.0 % Monocytes (%) (Auto) 3.8 % 4.5 % 6.3 % Eosinophils (%) (Auto) 1.3 % 1.0 % 1.7 % Basophils (%) (Auto) 0.4 % 0.2 % 0.3 % Neutrophils # (Auto) 16.7 TH/MM3 17.7 TH/MM3 17.7 TH/MM3 Lymphocytes # (Auto) 1.2 TH/MM3 2.0 TH/MM3 1.9 TH/MM3 Monocytes # (Auto) 0.7 TH/MM3 0.9 TH/MM3 1.3 TH/MM3 Eosinophils # (Auto) 0.3 TH/MM3 0.2 TH/MM3 0.4 TH/MM3 Basophils # (Auto) 0.1 TH/MM3 0.0 TH/MM3 0.1 TH/MM3 CBC Comment AUTO DIFF AUTO DIFF AUTO DIFF Differential Total Cells Counted 100 100 100 Neutrophils % (Manual) 84 % 88 % 87 % Band Neutrophils % 3 % 3 % 2 % Lymphocytes % 5 % 4 % 3 % Monocytes % 3 % 2 % Neutrophils # (Manual) 17.5 TH/MM3 19.6 TH/MM3 19.9 TH/MM3 Metamyelocytes 1 % 1 % 2 % Myelocytes 3 % 2 % 2 % Promyelocytes 1 % Differential Comment FINAL DIFF MANUAL FINAL DIFF MANUAL FINAL DIFF MANUAL Toxic Granulation 1+ Toxic Vacuolation PRESENT Platelet Estimate NORMAL NORMAL NORMAL Platelet Morphology Comment NORMAL NORMAL NORMAL Eosinophils % 2 % 1 % Basophils % 1 % Laboratory Tests Test 01/22/18 05:49 01/23/18 05:00 Blood Urea Nitrogen 34 MG/DL 33 MG/DL Creatinine 2.08 MG/DL 2.15 MG/DL Random Glucose 54 MG/DL 91 MG/DL Total Protein 6.3 GM/DL 5.8 GM/DL Albumin 1.4 GM/DL 1.2 GM/DL Calcium Level 7.3 MG/DL 7.3 MG/DL Phosphorus Level 2.7 MG/DL 3.6 MG/DL Magnesium Level 1.8 MG/DL 1.8 MG/DL Alkaline Phosphatase 266 U/L 252 U/L Aspartate Amino Transf (AST/SGOT) 19 U/L 19 U/L Alanine Aminotransferase (ALT/SGPT) LESS THAN 6 U/L LESS THAN 6 U/L Total Bilirubin 0.5 MG/DL 0.5 MG/DL Sodium Level 140 MEQ/L 139 MEQ/L Potassium Level 3.6 MEQ/L 3.8 MEQ/L Chloride Level 104 MEQ/L 105 MEQ/L Carbon Dioxide Level 31.7 MEQ/L 27.5 MEQ/L Anion Gap 4 MEQ/L 7 MEQ/L Estimat Glomerular Filtration Rate 33 ML/MIN 32 ML/MIN Protein Corrected Calcium 7.7 MG/DL 8.0 MG/DL Microbiology Date/Time Source Procedure Growth Status 01/22/18 20:18 Wound Foot Fungal Smear - Final NO FUNGAL ELEMENTS SEEN. Resulted 01/22/18 20:18 Wound Foot Fungal Culture Pending Resulted 01/22/18 20:18 Wound Foot Acid Fast Stain Pending Received 01/22/18 20:18 Wound Foot Mycobacterial Culture Pending Received 01/22/18 20:18 Wound Foot Gram Stain - Final Resulted 01/22/18 20:18 Wound Foot Wound Culture - Preliminary NO GROWTH IN 24 HOURS. Resulted 01/22/18 20:18 Wound Foot Fungal Smear - Final NO FUNGAL ELEMENTS SEEN. Resulted 01/22/18 20:18 Wound Foot Fungal Culture Pending Resulted 01/22/18 20:18 Wound Foot Acid Fast Stain Pending Received 01/22/18 20:18 Wound Foot Mycobacterial Culture Pending Received 01/22/18 20:18 Wound Foot Gram Stain - Final Resulted 01/22/18 20:18 Wound Foot Wound Culture - Preliminary NO GROWTH IN 24 HOURS. Resulted Imaging: Chest X-Ray 01/20/18 0600 Signed Impressions: Service Date/Time: Saturday, January 20, 2018 04:15 - CONCLUSION: Right IJ Vas-Cath in good position. Heart is enlarged. Duncan Zaldivar MD Foot MRI 01/19/18 0000 Signed Impressions: Service Date/Time: Friday, January 19, 2018 12:36 - CONCLUSION: 1. 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 These findings are very similar to the prior study 2016. 2. Plantar cutaneous defect and extensive midfoot plantar superficial soft tissue edema extending into the plantar musculature. These findings are suspicious for infection in the proper clinical setting. Elongated adjacent more medial and distal plantar soft tissue ovoid fluid collection may represent a pseudo-bursa or abscess. More ill-defined edema is seen extending laterally to the base of the fifth metatarsal with likely early osteomyelitis at this location. This lateral extension is a new finding when compared to the prior study of 2016. 3. Posterior superficial soft tissue edema the heel with mild adjacent bony edema is very similar to the prior study with no definitive osteomyelitis. Ganga Luna MD Foot MRI 01/19/18 0000 Signed Impressions: Service Date/Time: Friday, January 19, 2018 12:36 - CONCLUSION: 1. Plantar cutaneous defect with underlying septated fluid signal extending into the area of plantar aponeurosis defect. This finding is much more prominent than on the comparison MRI and suggests soft tissue infection in the proper clinical setting. Defined rounded collection is not seen. The abnormal fluid signal extends to the plantar surface of the cuboid but no definitive evidence of osteomyelitis is seen. 2. Extensive arthritic findings and bony destructive findings in the midfoot and hindfoot similar to prior study of 2016 indicating severe neuropathic osteoarthropathy. Ganga Luna MD Abdomen X-Ray 01/19/18 0000 Signed Impressions: Service Date/Time: Friday, January 19, 2018 10:57 - CONCLUSION: Nonspecific bowel gas pattern. Mildly distended air-filled stomach. Ganga Luna MD Head CT 01/14/182000 Signed Impressions: Service Date/Time: Sunday, January 14, 2018 20:22 - CONCLUSION: Normal examination for a patient of this age. Marcio Hansen MD Chest X-Ray 01/14/182000 Signed Impressions: Service Date/Time: Sunday, January 14, 2018 20:25 - CONCLUSION: 1. Mild cardiomegaly. No focal consolidation or effusion. Marcio Hansen MD Lower Extremity CT 01/14/18 Signed Impressions: Service Date/Time: Sunday, January 14, 2018 23:38 - CONCLUSION: 1. CT findings characteristic of a severe Charcot foot in the mid and hindfoot with collapse of the plantar arch. Osteoarthritic changes of the first MTP joint 2. However, findings all appear to be chronic with no acute osseous injury Marquis Mcdonald MD Abdomen/Pelvis CT 01/14/18 Signed Impressions: Service Date/Time: Sunday, January 14, 2018 23:35 - CONCLUSION: 1. CT findings suggest volume overload or low oncotic pressures with some flank and mesenteric edema, gallbladder wall thickening and some free fluid in the pelvis. Heart size is somewhat prominent. 2. Bilateral symmetric gynecomastia. Nonspecific findings but can be associated with some chronic disease processes or medications. 3. Left periaortic borderline prominent lymph nodes. Again, nonspecific but may be reactive associated with the aforementioned mesenteric edema. 4. 5.7 cm periumbilical fatty hernia. There is now some fluid along the periphery of the hernia. This could be related to the generalized edema described above although fatty infarction could have a similar radiographic presentation. Please correlate with clinical symptomatology Marquis Mcdonald MD PHYSICAL EXAMINATION: GENERAL: Patient is awake and alert. HEENT: Pupils constricted, but reactive to light. The sclerae is pale. Oropharynx, dry mucosa. No lesions. No thrush. NECK: Supple without adenopathy or swelling. LUNGS: Clear breath sounds. HEART: Distant S1 and S2. No murmurs, rubs or gallops. ABDOMEN: Bowel sounds present, soft, mildly distended, protruding umbilical abdominal hernia. EXTREMITIES: No clubbing. No cyanosis. 1+ edema. Wound VAC on left foot. SKIN: No diffuse rash. NEUROLOGIC: No gross focal finding. PSYCHIATRIC: Calm and cooperative. IMPRESSION: 1. Severe sepsis. 2. Bacteremia due to group A beta strep. 3. Leukocytosis secondary to sepsis. 4. Source of sepsis - diabetic foot infection due to group A strep. 5. Acute renal failure. 6. Charcot's joint and soft tissue infection of both feet. RECOMMENDATIONS: 1. Continue Cefazolin. 2. Continue to monitor white blood cell count. 3. Monitor clinical status. Sen Washington MD January 23, 2018 19:43
--- NOTE | 2018-01-23 21:25 | HHI.PR ---
Subjective Remarks Patient seen bedside post op day 1. Reports mild pain. Denies SOB, N, V, F, Ch. Objective Vital Signs Date Time Temp Pulse Resp B/P (MAP) Pulse Ox O2 Delivery O2 Flow Rate FiO2 01/23/18 19:06 98 Nasal Cannula 2.00 01/23/18 19:00 146 01/23/18 18:32 95 148/56 (86) 01/23/18 18:00 88 15 198/92 (127) 100 01/23/18 18:00 88 01/23/18 16:00 67 01/23/18 16:00 98.8 67 16 144/65 (91) 97 01/23/18 14:00 66 01/23/18 12:00 66 01/23/18 12:00 98.6 66 14 148/66 (93) 100 01/23/18 11:30 98.8 66 14 148/66 100 01/23/18 11:13 98.0 67 16 141/63 99 01/23/18 10:00 74 01/23/18 08:28 94 21 01/23/18 08:00 98.1 72 14 136/63 (87) 01/23/18 08:00 72 01/23/18 07:56 98.4 74 14 138/62 01/23/18 07:41 98.1 70 16 130/60 01/23/18 06:00 73 01/23/18 04:00 74 01/23/18 04:00 98.4 74 11 141/63 (89) 93 01/23/18 02:00 76 01/23/18 00:00 98.7 75 9 161/70 (100) 94 01/23/18 00:00 71 01/22/18 22:00 76 01/22/18 21:55 98.9 73 16 144/67 (92) I/O 01/22/18 01/22/18 01/22/18 01/23/18 01/23/18 01/23/18 07:00 15:00 23:00 07:00 15:00 23:00 Intake Total 250 ml 1050 ml 50 ml 800 ml 800 ml 1420 ml Output Total 950 ml 680 ml 900 ml 1700 ml Balance -700 ml 1050 ml -630 ml -100 ml 800 ml -280 ml Intake Oral 250 ml 800 ml 960 ml IV Total 1050 ml 460 ml Packed Cells 800 ml Other 50 ml Output Urine Total 800 ml 650 ml 900 ml 1600 ml Stool Total 150 ml Drainage Total 100 ml Estimated Blood Loss 30 ml # Bowel Movements 1 1 Result Diagram: 01/23/18 1547 01/23/18 0500 Imaging Last Impressions Chest X-Ray 01/21/18 0600 Signed Impressions: Service Date/Time: Sunday, January 21, 2018 03:50 - CONCLUSION: Normal examination. Right IJ Vas-Cath in good position Duncan Zaldivar MD Foot MRI 01/19/18 0000 Signed Impressions: Service Date/Time: Friday, January 19, 2018 12:36 - CONCLUSION: 1. 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 These findings are very similar to the prior study 2016. 2. Plantar cutaneous defect and extensive midfoot plantar superficial soft tissue edema extending into the plantar musculature. These findings are suspicious for infection in the proper clinical setting. Elongated adjacent more medial and distal plantar soft tissue ovoid fluid collection may represent a pseudo-bursa or abscess. More ill-defined edema is seen extending laterally to the base of the fifth metatarsal with likely early osteomyelitis at this location. This lateral extension is a new finding when compared to the prior study of 2016. 3. Posterior superficial soft tissue edema the heel with mild adjacent bony edema is very similar to the prior study with no definitive osteomyelitis. Ganga Luna MD Abdomen X-Ray 01/19/18 0000 Signed Impressions: Service Date/Time: Friday, January 19, 2018 10:57 - CONCLUSION: Nonspecific bowel gas pattern. Mildly distended air-filled stomach. Ganga Luna MD Liver Ultrasound 01/16/18 0000 Signed Impressions: Service Date/Time: January 16:59 - CONCLUSION: 1. Hepatomegaly and diffuse increased hepatic echogenicity without intrahepatic ductal dilatation or focal mass. Findings are most consistent with hepatic steatosis or medical liver disease. 2. Trace ascites. 3. Cholelithiasis with gallbladder wall prominence and trace pericholecystic fluid. These findings may be seen in the setting of chronic liver disease or ascites and significantly limit ultrasound evaluation for acute cholecystitis. If there is significant clinical concern regarding acute cholecystitis, HIDA scan may be performed to evaluate for cystic duct patency. Nam Tinajero MD Head CT 01/14/182000 Signed Impressions: Service Date/Time: Sunday, January 14, 2018 20:22 - CONCLUSION: Normal examination for a patient of this age. Marcio Hansen MD Lower Extremity CT 01/14/18 0000 Signed Impressions: Service Date/Time: Sunday, January 14, 2018 23:38 - CONCLUSION: 1. CT findings characteristic of a severe Charcot foot in the mid and hindfoot with collapse of the plantar arch. Osteoarthritic changes of the first MTP joint 2. However, findings all appear to be chronic with no acute osseous injury Marquis Mcdonald MD Abdomen/Pelvis CT 01/14/18 0000 Signed Impressions: Service Date/Time: Sunday, January 14, 2018 23:35 - CONCLUSION: 1. CT findings suggest volume overload or low oncotic pressures with some flank and mesenteric edema, gallbladder wall thickening and some free fluid in the pelvis. Heart size is somewhat prominent. 2. Bilateral symmetric gynecomastia. Nonspecific findings but can be associated with some chronic disease processes or medications. 3. Left periaortic borderline prominent lymph nodes. Again, nonspecific but may be reactive associated with the aforementioned mesenteric edema. 4. 5.7 cm periumbilical fatty hernia. There is now some fluid along the periphery of the hernia. This could be related to the generalized edema described above although fatty infarction could have a similar radiographic presentation. Please correlate with clinical symptomatology Marquis Mcdonald MD Procedures s/p bedside incision and drainage 01/20/18 s/p bilateral debridement and irrigation 01/22/18 wound vac placement to left foot Other Results Microbiology Date/Time Source Procedure Growth Status 01/17/18 10:55 Blood Peripheral Aerobic Blood Culture - Final NO GROWTH IN 5 DAYS Complete 01/17/18 10:55 Blood Peripheral Anaerobic Blood Culture - Final NO GROWTH IN 5 DAYS Complete 01/17/18 13:15 Urine Catheterized Urine Urine Culture - Final NO GROWTH IN 48 HOURS. Complete 01/22/18 20:18 Wound Foot Fungal Smear - Final NO FUNGAL ELEMENTS SEEN. Resulted 01/22/18 20:18 Wound Foot Fungal Culture Pending Resulted Objective Remarks Lower extremity physical exam: Dressing to bilateral LE with no strikethrough noted. Wound vac to left LE operating at 125mmHg with no leaks. Medications and IVs Current Medications Medications (Trade) Dose Ordered Sig/Portia Route Start Time Stop Time Status Last Admin ([facility] [place] Nursing Information) 1 [id number] XX 01/14/18 22:45 (Chlorhexidine 2% Cloth) Taper DAILY@04 TOP 01/15/18 04:00 01/11/19 03:59 01/19/18 02:50 (Chlorhexidine 2% Cloth) 3 pack UNSCH PRN TOP 01/14/18 22:45 (Tylenol) 650 mg Q4H PRN PO 01/15/18 01:00 (Aspirin) 325 mg DAILY PO 01/15/18 09:00 01/23/18 07:49 (Romazicon Inj) 0.2 mg Q1M PRN IV PUSH 01/16/18 01:00 (Ativan) 1 mg Q4H PRN PO 01/16/18 01:00 Future Hold (Ativan Inj) 1 mg Q4H PRN IV PUSH 01/16/18 01:00 Future Hold (Ativan) 2 mg Q2H PRN PO 01/16/18 01:00 Future Hold (Ativan Inj) 2 mg Q2H PRN IV PUSH 01/16/18 01:00 Future Hold 01/16/18 09:08 (Ativan Inj) 2 mg Q1H PRN IV PUSH 01/16/18 01:00 Future Hold (Ativan Inj) 2 mg Q15M PRN IV PUSH 01/16/18 01:00 Future Hold Cefazolin Sodium/ Dextrose 50 ml @ 100 mls/hr Q12H IV 01/16/18 15:00 01/23/18 11:56 Sodium Chloride 1,000 ml @ 0 mls/hr Q0M PRN OTHER 01/17/18 17:00 01/20/18 11:15 (Heparin Inj) 8,000 units UNSCH PRN IV FLUSH 01/17/18 17:00 Sodium Chloride 1,000 ml @ 200 mls/hr Q5H PRN IV 01/17/18 17:00 01/18/18 09:14 Sodium Chloride 1,000 ml @ 0 mls/hr Q0M PRN OTHER 01/17/18 17:00 (Mannitol Inj) 12.5 gm UNSCH PRN IV 01/17/18 17:00 Albumin Human 100 ml @ 60 mls/hr UNSCH PRN IV 01/17/18 17:00 (NS Flush) 5 ml UNSCH PRN IV FLUSH 01/17/18 17:00 (Heparin Inj) UNSCH PRN .XX 01/17/18 17:00 01/20/18 11:15 (Gentamicin Inj) 20 mg UNSCH PRN OTHER 01/17/18 17:00 01/20/18 11:15 (Zofran Inj) 4 mg UNSCH PRN IV PUSH 01/17/18 17:00 (Tylenol) 650 mg UNSCH PRN PO 01/17/18 17:00 (Benadryl) 25 mg UNSCH PRN PO 01/17/18 17:00 (Nitrostat Sl) 0.4 mg UNSCH PRN SL 01/17/18 17:00 (Catapres) 0.1 mg UNSCH PRN PO 01/17/18 17:00 (Gelfoam 12 Mm/7 Mm Top) 1 foam UNSCH PRN TOP 01/17/18 17:00 (NovoLOG SUPPLEMENTAL SCALE) 1 ACHS SLIDING SCALE SQ 01/19/18 12:00 01/23/18 20:21 (D50w (Vial) Inj) 50 ml UNSCH PRN IV PUSH 01/19/18 09:15 01/22/18 10:01 (Glucagon Inj) 1 mg UNSCH PRN OTHER 01/19/18 09:15 (Bactroban Nasal 2% Oint) 1 applic Taper BID EACH NARE 01/19/18 21:00 01/15/19 20:59 01/23/18 20:19 (Vistaril) 50 mg BID PO 01/19/18 10:00 01/23/18 20:19 Patient Own Medication PT OWN MED: THIORIDAZINE DOSE 10... DAILY PO 01/20/18 09:00 Future Hold (Morphine Inj) 1 mg Q4H PRN IV PUSH 01/19/18 10:00 01/23/18 20:20 (Ativan Inj) 1 mg Q4H PRN IV PUSH 01/19/18 09:15 01/20/18 01:04 (NS Flush) 2 ml UNSCH PRN IV FLUSH 01/19/18 09:15 01/23/18 02:15 (NS Flush) 2 ml BID IV FLUSH 01/19/18 21:00 01/23/18 20:19 (Protonix) 40 mg DAILY PO 01/20/18 09:00 01/23/18 07:49 (Zofran Inj) 4 mg Q6H PRN IV PUSH 01/19/18 09:15 (Albuterol Neb) 2.5 mg Q2HR NEB PRN INH 01/19/18 09:15 (Lizz-Colace) 1 tab BID PO 01/19/18 21:00 01/23/18 20:19 (Dulcolax Supp) 10 mg DAILY PRN RECTAL 01/19/18 09:15 (Lactulose Liq) 30 ml DAILY PO 01/20/18 09:00 01/21/18 09:23 (Miralax) 17 gm DAILY PO 01/20/18 09:00 01/21/18 09:23 (Levemir Inj) 8 units DAILY SQ 01/20/18 09:00 01/21/18 09:25 (Apresoline Inj) 10 mg Q1H PRN IV PUSH 01/19/18 09:45 01/20/18 21:35 (Nitroglycerin 2% Oint) 2 inch Q6H PRN TOPICAL 01/19/18 09:45 Dextrose 1,000 ml @ 30 mls/hr Q24H IV 01/22/18 10:15 01/22/18 10:30 (Narcan Inj) 0.4 mg UNSCH PRN IV PUSH 01/22/18 21:15 Sodium Chloride 250 ml @ 15 mls/hr ONCE ONCE IV 01/23/18 06:45 01/23/18 23:24 01/23/18 06:45 Assessment and Plan Assessment and Plan 57-year-old male with bilateral lower extremity plantar ulcers and abscess s/p bedside I&D Patient examined and evaluated nurse present bedside Wound care to perform dressing changes to b/l LE wound vac to be changed every 48 hours Upon DC patient to follow up with wound care with Juani Antunez DPBrain January 23, 2018 21:25
[2018-01-24] VITALS (14 sets, daily range): BP systolic 113–159; BP diastolic 56–72; PULSE 67–96; RESP 13–21; TEMP 98.2–98.9; O2SAT 99–100
[2018-01-24] MEDS: CHLORHEXIDINE GLUCONATE 2 % 1 PACK (2 CLOTHS) TOP SCH (00:19)
[2018-01-24] MEDS: ceFAZolin 2 GM PREMIX 50 ML IV SCH ×2 (03:17→15:00)
[2018-01-24] MEDS: MORPHINE SULFATE 4 MG/ML INJ IV PUSH PRN ×5 (03:56→21:21)
[2018-01-24 06:21] LABS: AUTOMATED NEUTROPHIL # 15.5 TH/MM3 (1.8-7.7); BASOPHIL # 0.1 TH/MM3 (0-0.2); BASOPHIL % 0.3 % (0.0-2.0); EOSINOPHIL # 0.3 TH/MM3 (0-0.4); EOSINOPHIL % 1.7 % (0.0-4.0); HEMATOCRIT 24.9 % (39.0-51.0); HEMOGLOBIN 8.3 GM/DL (13.0-17.0); LYMPH % 8.9 % (9.0-44.0); LYMPHOCYTE # 1.7 TH/MM3 (1.0-4.8); MEAN CORPUSCULAR HEMOGLOBIN 29.7 PG (27.0-34.0); MEAN CORPUSCULAR HGB CONC 33.3 % (32.0-36.0); MEAN PLATELET VOLUME 8.3 FL (7.0-11.0); MONO % 8.9 % (0.0-8.0); MONOCYTE # 1.7 TH/MM3 (0-0.9); NEUT % 80.2 % (16.0-70.0); PLATELET COUNT 277 TH/MM3 (150-450); RED BLOOD COUNT 2.79 MIL/MM3 (4.50-5.90); RED CELL DISTRIBUTION WIDTH 15.8 % (11.6-17.2); WHITE BLOOD COUNT 19.3 TH/MM3 (4.0-11.0)
[2018-01-24 07:05] LABS: INTERNATIONAL NORMALIZED RATIO 1.7 RATIO; PROTHROMBIN TIME - PATIENT 16.9 SEC (9.8-11.6)
[2018-01-24 07:21] LABS: ALBUMIN 1.2 GM/DL (3.4-5.0); ALKALINE PHOSPHATASE 318 U/L (45-117); ALT (GPT) LESS THAN 6 U/L (12-78); AST (GOT) 19 U/L (15-37); BLOOD UREA NITROGEN 33 MG/DL (7-18); CALCIUM 7.2 MG/DL (8.5-10.1); CALCIUM-PROTEIN CORRECTED 7.5 MG/DL (8.5-10.1); CHLORIDE 105 MEQ/L (98-107); CREATININE 2.47 MG/DL (0.60-1.30); GLOMERULAR FILTRATION RATE 27 ML/MIN (>89); GLUCOSE,RANDOM 88 MG/DL (74-106); MAGNESIUM 1.8 MG/DL (1.5-2.5); PHOSPHORUS 4.1 MG/DL (2.5-4.9); SODIUM (NA) 138 MEQ/L (136-145); TOTAL BILIRUBIN ADULT 0.4 MG/DL (0.2-1.0); TOTAL PROTEIN 6.5 GM/DL (6.4-8.2)
[2018-01-24 07:22] LABS: BANDS 12 % (0-6); LYMPHOCYTES 3 % (9-44); METAMYELOCYTES 4 % (0-1); MONOCYTES 6 % (0-8); NEUTROPHIL # MANUAL DIFF 17.2 TH/MM3 (1.8-7.7); POLYS (SEG NEUTROPHILS) 73 % (16-70)
--- NOTE | 2018-01-24 07:52 | HHI.PR ---
Subjective Remarks in no acute distress. resting fairly comfortably. pain is controlled. no fever. d/w the RN and no acute issues over night. Objective Vitals Vital Signs Date Time Temp Pulse Resp B/P (MAP) Pulse Ox O2 Delivery O2 Flow Rate FiO2 01/24/18 06:00 67 01/24/18 04:01 10 01/24/18 04:00 98.3 81 18 138/65 (89) 99 01/24/18 04:00 81 01/24/18 02:00 78 01/24/18 00:00 96 01/24/18 00:00 98.9 96 21 150/71 (97) 100 01/23/18 22:00 84 01/23/18 20:00 98.3 87 12 145/67 (93) 98 01/23/18 20:00 87 01/23/18 19:06 98 Nasal Cannula 2.00 01/23/18 19:05 92 01/23/18 19:00 146 01/23/18 18:32 95 148/56 (86) 01/23/18 18:00 88 15 198/92 (127) 100 01/23/18 18:00 88 01/23/18 16:00 67 01/23/18 16:00 98.8 67 16 144/65 (91) 97 01/23/18 14:00 66 01/23/18 12:00 66 01/23/18 12:00 98.6 66 14 148/66 (93) 100 01/23/18 11:30 98.8 66 14 148/66 100 01/23/18 11:13 98.0 67 16 141/63 99 01/23/18 10:00 74 01/23/18 08:28 94 21 01/23/18 08:00 98.1 72 14 136/63 (87) 01/23/18 08:00 72 01/23/18 07:56 98.4 74 14 138/62 I/O 01/23/18 01/23/18 01/23/18 01/24/18 01/24/18 01/24/18 07:00 15:00 23:00 07:00 15:00 23:00 Intake Total 800 ml 800 ml 1420 ml 1080 ml Output Total 900 ml 1700 ml 1000 ml Balance -100 ml 800 ml -280 ml 80 ml Intake Oral 800 ml 960 ml 720 ml IV Total 460 ml 360 ml Packed Cells 800 ml Output Urine Total 900 ml 1600 ml 1000 ml Drainage Total 100 ml # Voids 2 # Bowel Movements 1 1 1 Result Diagram: 01/24/18 0516 01/24/18 0516 Imaging Last Impressions Chest X-Ray 01/21/18 0600 Signed Impressions: Service Date/Time: Sunday, January 21, 2018 03:50 - CONCLUSION: Normal examination. Right IJ Vas-Cath in good position Duncan Zaldivar MD Foot MRI 01/19/18 0000 Signed Impressions: Service Date/Time: Friday, January 19, 2018 12:36 - CONCLUSION: 1. 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 These findings are very similar to the prior study 2016. 2. Plantar cutaneous defect and extensive midfoot plantar superficial soft tissue edema extending into the plantar musculature. These findings are suspicious for infection in the proper clinical setting. Elongated adjacent more medial and distal plantar soft tissue ovoid fluid collection may represent a pseudo-bursa or abscess. More ill-defined edema is seen extending laterally to the base of the fifth metatarsal with likely early osteomyelitis at this location. This lateral extension is a new finding when compared to the prior study of 2016. 3. Posterior superficial soft tissue edema the heel with mild adjacent bony edema is very similar to the prior study with no definitive osteomyelitis. Ganga Luna MD Abdomen X-Ray 01/19/18 Signed Impressions: Service Date/Time: Friday, January 19, 2018 10:57 - CONCLUSION: Nonspecific bowel gas pattern. Mildly distended air-filled stomach. Ganga Luna MD Liver Ultrasound 01/16/18 Signed Impressions: Service Date/Time: January 16:59 - CONCLUSION: 1. Hepatomegaly and diffuse increased hepatic echogenicity without intrahepatic ductal dilatation or focal mass. Findings are most consistent with hepatic steatosis or medical liver disease. 2. Trace ascites. 3. Cholelithiasis with gallbladder wall prominence and trace pericholecystic fluid. These findings may be seen in the setting of chronic liver disease or ascites and significantly limit ultrasound evaluation for acute cholecystitis. If there is significant clinical concern regarding acute cholecystitis, HIDA scan may be performed to evaluate for cystic duct patency. Nam Tinajero MD Head CT 01/14/182000 Signed Impressions: Service Date/Time: Sunday, January 14, 2018 20:22 - CONCLUSION: Normal examination for a patient of this age. Marcio Hansen MD Lower Extremity CT 01/14/18 Signed Impressions: Service Date/Time: Sunday, January 14, 2018 23:38 - CONCLUSION: 1. CT findings characteristic of a severe Charcot foot in the mid and hindfoot with collapse of the plantar arch. Osteoarthritic changes of the first MTP joint 2. However, findings all appear to be chronic with no acute osseous injury Marquis Mcdonald MD Abdomen/Pelvis CT 01/14/18 Signed Impressions: Service Date/Time: Sunday, January 14, 2018 23:35 - CONCLUSION: 1. CT findings suggest volume overload or low oncotic pressures with some flank and mesenteric edema, gallbladder wall thickening and some free fluid in the pelvis. Heart size is somewhat prominent. 2. Bilateral symmetric gynecomastia. Nonspecific findings but can be associated with some chronic disease processes or medications. 3. Left periaortic borderline prominent lymph nodes. Again, nonspecific but may be reactive associated with the aforementioned mesenteric edema. 4. 5.7 cm periumbilical fatty hernia. There is now some fluid along the periphery of the hernia. This could be related to the generalized edema described above although fatty infarction could have a similar radiographic presentation. Please correlate with clinical symptomatology Marquis Mcdonald MD Objective Remarks GENERAL: This is a well-nourished, well-developed patient, in no apparent distress. CARDIOVASCULAR: Regular rate and regular rhythm without murmurs, gallops, or rubs. RESPIRATORY: Clear to auscultation. Breath sounds equal bilaterally. No wheezes , rales, or rhonchi. GASTROINTESTINAL: Abdomen soft, non-tender, nondistended. Normal, active bowel sounds MUSCULOSKELETAL: both feet covered with clean dressing/ wound vac in place. NEURO: Alert & Oriented x4 to person, place, time, situation. Moves all ext x4 Procedures Vas-cath placement/ debridement of both feet/ wound vac placement. Medications and IVs Inpatient Medications Acetaminophen (Tylenol) 650 mg UNSCH PRN PO for headach, pain, temp > 101F; Start 01/17/18 at 17:00 Albumin Human 100 ml @ 60 mls/hr UNSCH PRN IV WITH DIALYSIS; Start 01/17/18 at 17:00 Albuterol Sulfate (Albuterol Neb) 2.5 mg Q2HR NEB PRN INH SOB/WHEEZING; Start 01/19/18 at 09:15 Albuterol/ Ipratropium (Duoneb Neb) 1 ampule Q2HR NEB PRN INH WHEEZING; Start 01/14/18 at 22:45; Stop 01/19/18 at 09:10; Status DC Aspirin (Aspirin) 325 mg DAILY PO Last administered on 01/23/18at 07:49; Start 01/15/18 at 09:00 Bisacodyl (Dulcolax Supp) 10 mg DAILY PRN RECTAL SEVERE CONSITIPATION; Start at 09:15 Calcium Gluconate 2 gm/Dextrose 120 ml @ 120 mls/hr ONCE ONCE IV Last administered on 01/18/18at 12:06; Start 01/18/18 at 11:15; Stop 01/18/18 at 12:14; Status DC Cefazolin Sodium/ Dextrose 50 ml @ 100 mls/hr Q12H IV Last administered on 08/03at 03:17; Start 01/16/18 at 15:00 Chlorhexidine Gluconate (Chlorhexidine 2% Cloth) 3 pack UNSCH PRN TOP HYGIENIC CARE; Start 01/14/18 at 22:45 Clindamycin/ Sodium Chloride 50 ml @ 100 mls/hr Q6H IV Last administered on 01/15/18at 15:45; Start 01/15/18 at 04:00; Stop 01/15/18 at 22:46; Status DC Clonidine (Catapres) 0.1 mg UNSCH PRN PO for BP > 180/100 X 2 readings; Start 01/17/18 at 17:00 Daptomycin 800 mg/ Sodium Chloride 100 ml @ 200 mls/hr Q48H IV Last administered on 01/16/18at 00:30; Start 01/16/18 at 00:00; Stop 01/16/18 at 14:36; Status DC Dextrose 1,000 ml @ 30 mls/hr Q24H IV Last administered on 01/22/18at 10:30; Start 01/22/18 at 10:15 Dextrose (D50w (Vial) Inj) 50 ml UNSCH PRN IV PUSH HYPOGLYCEMIA-SEE COMMENTS Last administered on 01/22/18at 10:01; Start 01/19/18 at 09:15 Diphenhydramine HCl (Benadryl) 25 mg UNSCH PRN PO for hives/itching/anaphylaxis ; Start 01/17/18 at 17:00 Famotidine (Pepcid Inj) 10 mg Q12HR IV PUSH Last administered on 01/19/18at 07:47 ; Start 01/15/18 at 21:00; Stop 01/19/18 at 09:01; Status DC Fentanyl Citrate (fentaNYL INJ) 100 mcg ONCE ONCE IV PUSH Last administered on 01/17/18at 16:50; Start 01/17/18 at 16:45; Stop 01/17/18 at 16:59; Status DC Flumazenil (Romazicon Inj) 0.2 mg Q1M PRN IV PUSH SEE LABEL COMMENTS; Start 01/16/18 at 01:00 Gelatin (Gelfoam 100 Top) 1 foam ONCE ONCE TOPICAL Last administered on at 04:34; Start 01/21/18 at 04:15; Stop 01/21/18 at 04:16; Status DC Gelatin (Gelfoam 12 Mm/7 Mm Top) 1 foam UNSCH PRN TOP SEE LABEL COMMENTS; Start 01/17/18 at 17:00 Gentamicin Sulfate (Gentamicin Inj) 20 mg UNSCH PRN OTHER WITH DIALYSIS Last administered on 01/20/18at 11:15; Start 01/17/18 at 17:00 Glucagon (Glucagon Inj) 1 mg UNSCH PRN OTHER HYPOGLYCEMIA-SEE COMMENTS; Start 01/19/18 at 09:15 Glycerin (Glycerin Adult Supp) 2 gm ONCE ONCE RECTAL Last administered on at 09:49; Start 01/19/18 at 09:15; Stop 01/19/18 at 09:21; Status DC Heparin Sodium (Porcine) (Heparin Inj) 5,000 units Q8H SQ ; Start 01/19/18 at 10: 00; Stop 01/19/18 at 10:00; Status DC Hydralazine HCl (Apresoline Inj) 10 mg Q1H PRN IV PUSH SBP>160, DBP>90 Last administered on 01/20/18at 21:35; Start 01/19/18 at 09:45 Hydrocortisone Sodium Succinate (SoluCORTEF INJ) 50 mg DAILY IV PUSH Last administered on 5/7/18at 09:30; Start 01/19/18 at 09:00; Stop 01/21/18 at 08:59; Status DC Hydroxyzine Pamoate (Vistaril) 50 mg BID PO Last administered on 01/23/18at 20: 19; Start 01/19/18 at 10:00 Insulin Aspart (NovoLOG SUPPLEMENTAL SCALE) 1 ACHS SLIDING SCALE SQ ; Start 01/19/18 at 12:00; Stop 01/19/18 at 12:00; Status DC Insulin Detemir (Levemir Inj) 10 units ONCE ONCE SQ Last administered on 10:07; Start 01/19/18 at 10:00; Stop 01/19/18 at 10:01; Status DC Insulin Human Regular 100 units/ Sodium Chloride 100 ml @ 0.5 mls/hr TITRATE PRN IV Blood Glucose Control Last administered on 01/19/18 09:51; Start 01/17/18 at 17:30; Stop 01/19/18 at 09:22; Status DC Lactulose (Lactulose Liq) 30 ml DAILY PO Last administered on 01/21/18at 09:23; Start 01/20/18 at 09:00 Lorazepam (Ativan Inj) 1 mg Q4H PRN IV PUSH Agitation Last administered on 01:04; Start 01/19/18 at 09:15 Lorazepam (Ativan) 2 mg Q2H PRN PO [facility] 11-14; Start 01/16/18 at 01:00; Status Future Hold Mannitol (Mannitol Inj) 12.5 gm UNSCH PRN IV WITH DIALYSIS; Start 01/17/18 at 17 :00 Midazolam HCl (Versed Inj) 2.5 mg ONCE ONCE IV PUSH Last administered on at 16:50; Start 01/17/18 at 16:45; Stop 01/17/18 at 17:00; Status DC Miscellaneous Information (MISC DC previous DKA orders) 1 ONCE ONCE .XX Last administered on 01/19/18at 10:07; Start 01/19/18 at 09:15; Stop 01/19/18 at 09:19; Status DC Miscellaneous Information (Misc DC Insulin 2 hrs post Levemir) 1 ONCE ONCE .XX Last administered on 01/19/18at 10:08; Start 01/19/18 at 09:15; Stop 01/19/18 at 09:18; Status DC Miscellaneous Information ([facility] Nursing Information) 1 Q361D XX ; Start 01/14/18 at 22:45 Miscellaneous Information ([facility] [place] [facility] Post-op Orders (for Pharmacy)) STAT ONCE XX ; Start 01/22/18 at 21:15; Stop 01/22/18 at 21:17; Status DC Morphine Sulfate (Morphine Inj) 1 mg Q4H PRN IV PUSH pain 6-10 Last administered on 01/24/18at 03:56; Start 01/19/18 at 10:00 Mupirocin (Bactroban Nasal 2% Oint) 1 applic Taper BID EACH NARE Last administered on 01/23/18at 20:19; Start 01/19/18 at 21:00; Stop 01/15/19 at 20:59 Naloxone HCl (Narcan Inj) 0.4 mg UNSCH PRN IV PUSH SEE LABEL COMMENTS; Start at 21:15 Nitroglycerin (Nitroglycerin 2% Oint) 2 inch Q6H PRN TOPICAL SBP>160, DBP>90; Start 01/19/18 at 09:45 Nitroglycerin (Nitrostat Sl) 0.4 mg UNSCH PRN SL CHEST PAIN; Start 01/17/18 at 17:00 Ondansetron HCl (Zofran Inj) 4 mg Q6H PRN IV PUSH NAUSEA OR VOMITING; Start 01/19/18 at 09:15 Pantoprazole Sodium (Protonix) 40 mg DAILY PO Last administered on 01/23/18at 07 :49; Start 01/20/18 at 09:00 Patient Own Medication PT OWN MED: THIORIDAZINE DOSE 10... DAILY PO ; Start 01/20 at 09:00; Status Future Hold Phytonadione (Mephyton Liq) 5 mg ONCE ONCE PO Last administered on 01/19/18at 10 :13; Start 01/19/18 at 10:15; Stop 01/19/18 at 10:16; Status DC Piperacillin Sod/ Tazobactam Sod 50 ml @ 100 mls/hr Q8H IV Last administered on 01/19/18at 07:46; Start 01/17/18 at 17:00; Stop 01/19/18 at 09:29; Status DC Polyethylene Glycol (Miralax) 17 gm DAILY PO Last administered on 01/21/18at 09: 23; Start 01/20/18 at 09:00 Potassium Chloride (KCl) 20 meq ONCE ONCE PO Last administered on 01/21/18at 11: 48; Start 01/21/18 at 09:45; Stop 01/21/18 at 10:08; Status DC Senna/Docusate Sodium (Lizz-Colace) 1 tab BID PO Last administered on at 20:19; Start 01/19/18 at 21:00 Sodium Bicarbonate 150 meq/Dextrose 1,000 ml @ 100 mls/hr Q10H IV Last administered on 01/17/18 23:17; Start 01/16/18 at 16:15; Stop 01/18/18 at 11:01; Status DC Sodium Bicarbonate (Sodium Bicarbonate 8.4% Inj) 50 meq ONCE ONCE IV PUSH Last administered on 01/16/18at 17:59; Start 01/16/18 at 16:15; Stop 01/16/18 at 16: 21; Status DC Sodium Chloride 250 ml @ 15 mls/hr ONCE ONCE IV Last administered on at 06:45; Start 01/23/18 at 06:45; Stop 01/23/18 at 23:24; Status DC Sodium Chloride (NS Flush) 2 ml BID IV FLUSH Last administered on 01/23/18at 20: 19; Start 01/19/18 at 21:00 Ziprasidone (Geodon Inj) 10 mg Q12H PRN IM AGITATION, breakthrough; Start at 09:15; Stop 01/22/18 at 09:14; Status DC A/P Assessment and Plan Metabolic encephalopathy secondary to sepsis -resolved. Schizophrenia Posttraumatic stress disorder resumed Thioridazine 200 mg daily with hydroxyzine 50 mg/twice daily home medications for schizophrenia Acetaminophen 650 mg p.o. every 4 hours as needed fever/pain 1 through 5 Morphine sulfate 1 mg IV every 4 hours as needed pain 6 - 10 Lorazepam 1 mg IV every 4 hours as needed agitation Ziprasidone 10 mg IM every 12 hours as needed breakthrough agitation. Start date 01/19 maximum 3 days At home on hydrocodone/acetaminophen 10/325 1 tablet twice daily as needed pain Septic shock -resolved History of hypertension Hold all antihypertensive medications in the setting of septic shock, will restart the BP meds within the next 24 hrs. At home on amlodipine 10 mg p.o. daily for hypertension As needed Nitropaste/hydralazine for hypertension breakthrough Nonoliguric BISHOP Hypokalemia 01/16 Lasix 40 mg IV 1 dose 01/17 vascular cath placement had HD on 01/18 and 01/20- HD on hold for now per nephrology. Nephrology following- vas-cath will be removed if renal function remains stable. Avoid nephrotoxic drugs Hepatitis C antibody positive. Genotype not detected and viral load pending Elevated LFTs- Shock Liver Hepatomegaly Cholelithiasis Monitor CMP 01/16 ultrasound of the liver- Trace ascites. Findings most consistent with hepatic steatosis or liver disease. Cholelithiasis with gallbladder wall prominence but trace pericholecystic fluid Hepatitis C IgG antibody positive GI consulted appreciate recommendations; f/u with GI as outpatient. Noted VICKIE positive. Normocytic anemia -hemoglobin slowly trending down Group A strep septicemia Diabetic foot infection and abscess status post drainage and debridement on 01/20 Septic shock Coagulopathy -INR remains elevated Transfused 2 units PRBC on 01/21 and 01/23 Transfused 2 units FFP on 01/21 as well s/p debridement of both feet along with wound vac placement- podiatry following. wound care consulted. wound vac management per podiatry/ wound care. On cefazolin, followed by ID continue PT. Pertinent microbiology 01/14 -blood cultures 2 beta strep group A 01/15 and 01/16 -wound -beta strep group A 01/16-01/17 -blood cultures 2 -no growth 01/17 -UA -no growth Diabetes mellitus resumed diet - hold levemir for now and continue with accu-check with SSI Glipizide 10 mg p.o. twice daily home medication held Prophylaxis: GI Prophylaxis Pantoprazole DVT Prophylaxis -- SCDs Teds and SCDs. Heparin SQ on hold in the setting of elevated INR. transfer to telemetry today. d/w the patient and RN. Joshua Black MD January 24, 2018 07:52
[2018-01-24] MEDS: INSULIN ASPART SUPPLEMENTAL SCALE SQ SCH ×4 (08:00→21:00)
[2018-01-24] MEDS: LACTULOSE SYRUP 20 GM/30 ML CUP PO SCH (08:05)
[2018-01-24] MEDS: PANTOPRAZOLE SOD 40 MG DELAYED RELEASE TAB PO SCH (08:06)
[2018-01-24] MEDS: ASPIRIN 325 MG TAB PO SCH (08:06)
[2018-01-24] MEDS: INSULIN DETEMIR 100 UNITS/ML VIAL SQ SCH (08:06)
[2018-01-24] MEDS: DOCUSATE SODIUM 50 MG/SENNA 8.6 MG TAB PO SCH ×2 (08:06→21:00)
[2018-01-24] MEDS: POLYETHYLENE GLYCOL 17 GM PKG PO SCH (08:06)
[2018-01-24] MEDS: SODIUM CHLORIDE 0.9% FLUSH 10 ML FLUSH IV FLUSH SCH ×2 (08:08→21:21)
[2018-01-24] MEDS: MUPIROCIN 2% OINT 1 APPLIC/GM SYR EACH NARE SCH ×2 (08:08→21:20)
--- NOTE | 2018-01-24 14:01 | HHI.NPPN ---
Subjective Renal Failure: Acute Interval History He is more alert. Almaraz removed, urine output has improved but creatinine is higher. Vascath is still in place. (Laura Quesada) Review of Systems General Constitutional: Fatigue (Laura Quesada) Heme-Lymph Heme-Lymph: Bleeding (Laura Quesada) Skin Skin Remarks wounds to bilateral feet. (Laura Quesada) Objective Data Data Vital Signs Date Time Temp Pulse Resp B/P (MAP) Pulse Ox O2 Delivery O2 Flow Rate FiO2 01/24/18 12:56 18 01/24/18 12:00 98.3 72 17 113/56 (75) 100 01/24/18 12:00 72 01/24/18 10:00 83 01/24/18 08:30 99 Nasal Cannula 2.00 01/24/18 08:00 88 01/24/18 08:00 98.4 88 20 159/72 (101) 100 01/24/18 06:00 67 01/24/18 04:00 98.3 81 18 138/65 (89) 99 01/24/18 04:00 81 01/24/18 02:00 78 01/24/18 00:00 96 01/24/18 00:00 98.9 96 21 150/71 (97) 100 01/23/18 22:00 84 01/23/18 20:00 98.3 87 12 145/67 (93) 98 01/23/18 20:00 87 01/23/18 19:06 98 Nasal Cannula 2.00 01/23/18 19:05 92 01/23/18 19:00 146 01/23/18 18:32 95 148/56 (86) 01/23/18 18:00 88 15 198/92 (127) 100 01/23/18 18:00 88 01/23/18 16:00 67 01/23/18 16:00 98.8 67 16 144/65 (91) 97 01/23/18 14:00 66 (Laura Quesada) -: 01/24/18 0516 01/24/18 0516 Tubes & Lines: Vas-Cath Tubes & Lines Comment wound vac bilateral feet (Laura Quesada) Physical Exam General Appearance: Comfortable, Sleeping Appearance Remarks disheveled, appears older than stated age (Laura Quesada) Ears & Nose Ears & Nose Exam: Tympanic Membranes Normal (Laura Quesada) Pulmonary Resp Exam: Breath Sounds Equal, No Distress (Laura Quesada) Cardiology CV Exam: Normal Sinus Rhythm, Good Perfusion (Laura Quesada) Gastrointestinal/Abdomen GI Exam: Soft, Non-Tender, Bowel Sounds Present (Laura Quesada) Musculoskeletal MS Exam: Joints Intact, Normal Tone, Unable to Ambulate (Laura Quesada) Integumentary Skin Exam: Warm, Dry Skin Remarks wound on bilateral feet/heals , dressings in place Wound vac in place (Laura Quesada) Extremeties Extremities Exam: Trace Edema (Laura Quesada) Neurologic Neuro Exam: Alert, Awake, Speech Clear, Moving All Extremities (Laura Quesada) Assessment/Plan Discussed Condition With: Patient Assessment Summary: BISHOP/Acute Renal Failure Problem List: (1) Acute worsening of stage 3 chronic kidney disease ICD Codes: N18.3 - Chronic kidney disease, stage 3 (moderate) Plan: Exact baseline is not known. Last year Creatinine was 1.7. BISHOP likely due to ATN from sepsis. He required 2 dialysis sessions, on 01/18 and 01/20 Renal function improved somewhat but not as much as we anticipated Still no need for dialysis. Monitor urine output, after almaraz removal it has increased Continue to monitor renal profile. PO fluids encouraged Repeat UA Minimize non essential medications (2) Sepsis ICD Codes: A41.9 - Sepsis, unspecified organism Status: Resolved Plan: ID following. On Cefazolin, Source is likely infected leg wounds. 4/4 blood cultures positive, wound culture also positive for Group B strep Leukocytosis continues (3) Anemia ICD Codes: D64.9 - Anemia, unspecified Status: Chronic Plan: Hb better s/p transfusion No significant bleeding at this time (4) Hyponatremia ICD Codes: E87.1 - Hypo-osmolality and hyponatremia Status: Acute Plan: Stable Documented history of psychogenic polydipsia. However given ETOH abuse, need to consider beer potomania. Improved. (Laura Quesada) Plan patient was seen and examined. Agree with above assessment and plan. Patient's renal function has declined. Rule out urinary retention. (Shaun Mcmahon MD) Problem Qualifiers (1) Sepsis: Qualified Codes: A41.9 - Sepsis, unspecified organism Laura Quesada January 24, 2018 14:01 Shaun Mcmahon MD January 24, 2018 14:58
--- NOTE | 2018-01-24 16:24 | PD.WCN.NOT ---
Wound Consult Description: Received wound management consult from Doctor Maddi Dominguez for B/L feet. Communicated with: HANSA Cornell Patient Recommendation: Please cleanse wounds to right foot with normal saline and cover open wounds with Maxorb Extra AG and secure with ABD pads, rolled gauze and BERTRAM. change dressing every 3 days and PRN for saturation or dislodgement. Change VAC dressing to left foot as ordered. Reinforce wound VAC dressing to left foot if unable to obtain a seal after 2 hours the black granufoam must be removed and a moist to dry dressing applied. Contact Podiatry. Additional Information: Patient seen on [facility] for dressing change to right foot using Maxorb Extra AG over plantar surface wound measuring 4cm x 2.9cm x 0.8cm. Packing removed from surgical incision measuring 1.5cm x 0.5cm x 1.7cm with undermining of 2.4cm @9 o'clock with active minimal sanguinous drainage. Wound was cleansed with NS and gauze. Maxorb Extra AG was lightly inserted into wound bed ( previously packed) with a tail left outside for easy removal. Wounds were covered with 4x4 gauze, ABD pad, rolled gauze and further secured with BERTRAM wrap. Neg Pressure Wound Therapy Wound Location Wound Location: Left foot Wound Description Length: 4.2cm Width: 10.8cm Depth: ~1cm Wound bed appearance: Red vascular moist granulation tissue Periwound appearance: Other (Severely macerated. ) Settings Suction: 125 mmHg, Continuous Intensity: Low Foam type: Black Number of pieces: 1 Additonal Information Wound VAC dressing removed from left foot with a large clot attached to the VAC drape measuring ~8cm x 5cm x 0.5cm that had been laying on patient periwound. Wound was cleansed with NS and gauze. Measurements above. Wound bed is vascular with minimal sanguinous active drainage. Wound margins are sharp from debridement. Periwound was skin prepped with Cavilon skin barrier film and left open to air. Dolores seal and stoma paste was obtained for periwound for protection against one piece of black granufoam placed in wound bed and secured with sensitrac pad and VAC drape. Partial thickness skin loss area noted from 8- 10 o'clock was covered with Maxorb Extra AG. All dressings were secured with rolled gauze and BERTRAM wrap. Recommend to change dressing on Saturday, however orders are for every [address] Vivar. Wound Care is not able to change VAC on Saturday01/26/17 and will need to be done by floor RN or may be contacted for clarification of orders for VAC change on Saturday by acoustic sensor operator. Susana Swartz [facility] January 24, 2018 16:24
[2018-01-25] VITALS (13 sets, daily range): BP systolic 135–166; BP diastolic 60–76; PULSE 70–95; RESP 8–18; TEMP 98–99.1; O2SAT 96–100
[2018-01-25] MEDS: MORPHINE SULFATE 4 MG/ML INJ IV PUSH PRN ×6 (00:58→21:53)
[2018-01-25] MEDS: CHLORHEXIDINE GLUCONATE 2 % 1 PACK (2 CLOTHS) TOP SCH (04:00)
[2018-01-25] MEDS: ceFAZolin 2 GM PREMIX 50 ML IV SCH ×2 (04:24→14:54)
--- NOTE | 2018-01-25 07:19 | HHI.PR ---
Subjective Remarks in no acute distress. remains afebrile. pain is controlled. no new complaints. Objective Vitals Vital Signs Date Time Temp Pulse Resp B/P (MAP) Pulse Ox O2 Delivery O2 Flow Rate FiO2 01/25/18 02:00 87 01/25/18 00:00 99.1 95 15 165/71 (102) 100 01/25/18 00:00 95 01/24/18 22:00 95 01/24/18 20:57 100 Nasal Cannula 2.00 01/24/18 20:00 98.2 82 13 150/67 (94) 100 01/24/18 20:00 82 01/24/18 18:00 84 01/24/18 16:00 98.5 76 20 148/67 (94) 100 01/24/18 16:00 76 01/24/18 14:00 72 01/24/18 12:56 18 01/24/18 12:00 98.3 72 17 113/56 (75) 100 01/24/18 12:00 72 01/24/18 10:00 83 01/24/18 08:30 99 Nasal Cannula 2.00 01/24/18 08:00 88 01/24/18 08:00 98.4 88 20 159/72 (101) 100 I/O 01/24/18 01/24/18 01/24/18 01/25/18 01/25/18 01/25/18 07:00 15:00 23:00 07:00 15:00 23:00 Intake Total 1080 ml 800 ml 40 ml Output Total 1000 ml 900 ml Balance 80 ml -100 ml 40 ml Intake Oral 720 ml 800 ml IV Total 360 ml 40 ml Output Urine Total 1000 ml 900 ml # Voids 2 # Bowel Movements 1 Result Diagram: 01/24/18 0516 01/24/18 0516 Imaging Last Impressions Chest X-Ray 01/21/18 0600 Signed Impressions: Service Date/Time: Sunday, January 21, 2018 03:50 - CONCLUSION: Normal examination. Right IJ Vas-Cath in good position Duncan Zaldivar MD Foot MRI 01/19/18 0000 Signed Impressions: Service Date/Time: Friday, January 19, 2018 12:36 - CONCLUSION: 1. 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 These findings are very similar to the prior study 2016. 2. Plantar cutaneous defect and extensive midfoot plantar superficial soft tissue edema extending into the plantar musculature. These findings are suspicious for infection in the proper clinical setting. Elongated adjacent more medial and distal plantar soft tissue ovoid fluid collection may represent a pseudo-bursa or abscess. More ill-defined edema is seen extending laterally to the base of the fifth metatarsal with likely early osteomyelitis at this location. This lateral extension is a new finding when compared to the prior study of 2016. 3. Posterior superficial soft tissue edema the heel with mild adjacent bony edema is very similar to the prior study with no definitive osteomyelitis. Ganga Luna MD Abdomen X-Ray 01/19/18 Signed Impressions: Service Date/Time: Friday, January 19, 2018 10:57 - CONCLUSION: Nonspecific bowel gas pattern. Mildly distended air-filled stomach. Ganga Luna MD Liver Ultrasound 01/16/18 Signed Impressions: Service Date/Time: January 16:59 - CONCLUSION: 1. Hepatomegaly and diffuse increased hepatic echogenicity without intrahepatic ductal dilatation or focal mass. Findings are most consistent with hepatic steatosis or medical liver disease. 2. Trace ascites. 3. Cholelithiasis with gallbladder wall prominence and trace pericholecystic fluid. These findings may be seen in the setting of chronic liver disease or ascites and significantly limit ultrasound evaluation for acute cholecystitis. If there is significant clinical concern regarding acute cholecystitis, HIDA scan may be performed to evaluate for cystic duct patency. Nam Tinajero MD Head CT 01/14/182000 Signed Impressions: Service Date/Time: Sunday, January 14, 2018 20:22 - CONCLUSION: Normal examination for a patient of this age. Marcio Hansen MD Lower Extremity CT 01/14/18 Signed Impressions: Service Date/Time: Sunday, January 14, 2018 23:38 - CONCLUSION: 1. CT findings characteristic of a severe Charcot foot in the mid and hindfoot with collapse of the plantar arch. Osteoarthritic changes of the first MTP joint 2. However, findings all appear to be chronic with no acute osseous injury Marquis Mcdonald MD Abdomen/Pelvis CT 01/14/18 Signed Impressions: Service Date/Time: Sunday, January 14, 2018 23:35 - CONCLUSION: 1. CT findings suggest volume overload or low oncotic pressures with some flank and mesenteric edema, gallbladder wall thickening and some free fluid in the pelvis. Heart size is somewhat prominent. 2. Bilateral symmetric gynecomastia. Nonspecific findings but can be associated with some chronic disease processes or medications. 3. Left periaortic borderline prominent lymph nodes. Again, nonspecific but may be reactive associated with the aforementioned mesenteric edema. 4. 5.7 cm periumbilical fatty hernia. There is now some fluid along the periphery of the hernia. This could be related to the generalized edema described above although fatty infarction could have a similar radiographic presentation. Please correlate with clinical symptomatology Marquis Mcdonald MD Objective Remarks GENERAL: This is a well-nourished, well-developed patient, in no apparent distress. CARDIOVASCULAR: Regular rate and regular rhythm without murmurs, gallops, or rubs. RESPIRATORY: Clear to auscultation. Breath sounds equal bilaterally. No wheezes , rales, or rhonchi. GASTROINTESTINAL: Abdomen soft, non-tender, nondistended. Normal, active bowel sounds MUSCULOSKELETAL: both feet covered with clean dressing/ wound vac in place. NEURO: Alert & Oriented x4 to person, place, time, situation. Moves all ext x4 Procedures Vas-cath placement/ debridement of both feet/ wound vac placement. Medications and IVs Inpatient Medications Acetaminophen (Tylenol) 650 mg UNSCH PRN PO for headach, pain, temp > 101F; Start 01/17/18 at 17:00 Albumin Human 100 ml @ 60 mls/hr UNSCH PRN IV WITH DIALYSIS; Start 01/17/18 at 17:00 Albuterol Sulfate (Albuterol Neb) 2.5 mg Q2HR NEB PRN INH SOB/WHEEZING; Start 01/19/18 at 09:15 Albuterol/ Ipratropium (Duoneb Neb) 1 ampule Q2HR NEB PRN INH WHEEZING; Start 01/14/18 at 22:45; Stop 01/19/18 at 09:10; Status DC Aspirin (Aspirin) 325 mg DAILY PO Last administered on 01/24/18at 08:06; Start 01/15/18 at 09:00 Bisacodyl (Dulcolax Supp) 10 mg DAILY PRN RECTAL SEVERE CONSITIPATION; Start at 09:15 Calcium Gluconate 2 gm/Dextrose 120 ml @ 120 mls/hr ONCE ONCE IV Last administered on 01/18/18at 12:06; Start 01/18/18 at 11:15; Stop 01/18/18 at 12:14; Status DC Cefazolin Sodium/ Dextrose 50 ml @ 100 mls/hr Q12H IV Last administered on 09/02at 04:24; Start 01/16/18 at 15:00 Chlorhexidine Gluconate (Chlorhexidine 2% Cloth) 3 pack UNSCH PRN [facility]; Start 01/14/18 at 22:45 Clindamycin/ Sodium Chloride 50 ml @ 100 mls/hr Q6H IV Last administered on 01/15/18at 15:45; Start 01/15/18 at 04:00; Stop 01/15/18 at 22:46; Status DC Clonidine (Catapres) 0.1 mg UNSCH PRN PO for BP > 180/100 X 2 readings; Start 01/17/18 at 17:00 Daptomycin 800 mg/ Sodium Chloride 100 ml @ 200 mls/hr Q48H IV Last administered on 01/16/18at 00:30; Start 01/16/18 at 00:00; Stop 01/16/18 at 14:36; Status DC Dextrose 1,000 ml @ 30 mls/hr Q24H IV Last administered on 01/22/18at 10:30; Start 01/22/18 at 10:15; Stop 01/24/18 at 07:54; Status DC Dextrose (D50w (Vial) Inj) 50 ml UNSCH PRN IV PUSH HYPOGLYCEMIA-SEE COMMENTS Last administered on 01/22/18at 10:01; Start 01/19/18 at 09:15 Diphenhydramine HCl (Benadryl) 25 mg UNSCH PRN PO for hives/itching/anaphylaxis ; Start 01/17/18 at 17:00 Famotidine (Pepcid Inj) 10 mg Q12HR IV PUSH Last administered on 01/19/18at 07:47 ; Start 01/15/18 at 21:00; Stop 01/19/18 at 09:01; Status DC Fentanyl Citrate (fentaNYL INJ) 100 mcg ONCE ONCE IV PUSH Last administered on 01/17/18at 16:50; Start 01/17/18 at 16:45; Stop 01/17/18 at 16:59; Status DC Flumazenil (Romazicon Inj) 0.2 mg Q1M PRN IV PUSH SEE LABEL COMMENTS; Start 01/16/18 at 01:00 Gelatin (Gelfoam 100 Top) 1 foam ONCE ONCE TOPICAL Last administered on at 04:34; Start 01/21/18 at 04:15; Stop 01/21/18 at 04:16; Status DC Gelatin (Gelfoam 12 Mm/7 Mm Top) 1 foam UNSCH PRN TOP SEE LABEL COMMENTS; Start 01/17/18 at 17:00 Gentamicin Sulfate (Gentamicin Inj) 20 mg UNSCH PRN OTHER WITH DIALYSIS Last administered on 01/20/18at 11:15; Start 01/17/18 at 17:00 Glucagon (Glucagon Inj) 1 mg UNSCH PRN OTHER HYPOGLYCEMIA-SEE COMMENTS; Start 01/19/18 at 09:15 Glycerin (Glycerin Adult Supp) 2 gm ONCE ONCE RECTAL Last administered on at 09:49; Start 01/19/18 at 09:15; Stop 01/19/18 at 09:21; Status DC Heparin Sodium (Porcine) (Heparin Inj) 5,000 units Q8H SQ ; Start 01/19/18 at 10: 00; Stop 01/19/18 at 10:00; Status DC Hydralazine HCl (Apresoline Inj) 10 mg Q1H PRN IV PUSH SBP>160, DBP>90 Last administered on 01/20/18at 21:35; Start 01/19/18 at 09:45 Hydrocortisone Sodium Succinate (SoluCORTEF INJ) 50 mg DAILY IV PUSH Last administered on 01/20/18at 09:30; Start 01/19/18 at 09:00; Stop 01/21/18 at 08:59; Status DC Hydroxyzine Pamoate (Vistaril) 50 mg BID PO Last administered on 01/24/18at 21: 21; Start 01/19/18 at 10:00 Insulin Aspart (NovoLOG SUPPLEMENTAL SCALE) 1 ACHS SLIDING SCALE SQ ; Start 01/19/18 at 12:00; Stop 01/19/18 at 12:00; Status DC Insulin Detemir (Levemir Inj) 10 units ONCE ONCE SQ Last administered on at 10:07; Start 01/19/18 at 10:00; Stop 01/19/18 at 10:01; Status DC Insulin Human Regular 100 units/ Sodium Chloride 100 ml @ 0.5 mls/hr TITRATE PRN IV Blood Glucose Control Last administered on 01/19/18at 09:51; Start 01/17/18 at 17:30; Stop 01/19/18 at 09:22; Status DC Lactulose (Lactulose Liq) 30 ml DAILY PO Last administered on 01/24/18at 08:05; Start 01/20/18 at 09:00 Lorazepam (Ativan Inj) 1 mg Q4H PRN IV PUSH Agitation Last administered on at 01:04; Start 01/19/18 at 09:15 Lorazepam (Ativan) 2 mg Q2H PRN PO CIWA 11-14; Start 01/16/18 at 01:00; Status Future Hold Mannitol (Mannitol Inj) 12.5 gm UNSCH PRN IV WITH DIALYSIS; Start 01/17/18 at 17 :00 Midazolam HCl (Versed Inj) 2.5 mg ONCE ONCE IV PUSH Last administered on at 16:50; Start 01/17/18 at 16:45; Stop 01/17/18 at 17:00; Status [place] Miscellaneous Information [place] [place] 1 ONCE ONCE .XX Last administered on 01/19/18at 10:07; Start 01/19/18 at 09:15; Stop 01/19/18 at 09:19; Status DC Miscellaneous Information ([facility] [place] 2 hrs post Levemir) 1 ONCE ONCE .XX Last administered on 01/19/18at 10:08; Start 01/19/18 at 09:15; Stop 01/19/18 at 09:18; Status DC Miscellaneous Information ([facility] [place] Nursing Information) 1 Q361D XX ; Start 01/14/18 at 22:45 Miscellaneous Information ([facility] [place] (for Pharmacy)) STAT ONCE XX ; Start 01/22/18 at 21:15; Stop 01/22/18 at 21:17; Status DC Morphine Sulfate (Morphine Inj) 1 mg Q4H PRN IV PUSH pain 6-10 Last administered on 01/25/18at 05:04; Start 01/19/18 at 10:00 Mupirocin (Bactroban Nasal 2% Oint) Taper BID EACH NARE Last administered on 08/03at 21:20; Start 01/19/18 at 21:00; Stop 01/15/19 at 20:59 Naloxone HCl (Narcan Inj) 0.4 mg UNSCH PRN IV PUSH SEE LABEL COMMENTS; Start at 21:15 Nitroglycerin (Nitroglycerin 2% Oint) 2 inch Q6H PRN TOPICAL SBP>160, DBP>90; Start 01/19/18 at 09:45 Nitroglycerin (Nitrostat Sl) 0.4 mg UNSCH PRN SL CHEST PAIN; Start 01/17/18 at 17:00 Ondansetron HCl (Zofran Inj) 4 mg Q6H PRN IV PUSH NAUSEA OR VOMITING; Start 01/19/18 at 09:15 Pantoprazole Sodium (Protonix) 40 mg DAILY PO Last administered on 01/24/18at 08 :06; Start 01/20/18 at 09:00 Patient Own Medication PT OWN MED: THIORIDAZINE DOSE 10... DAILY PO ; Start 01/20 at 09:00; Status Future Hold Phytonadione (Mephyton Liq) 5 mg ONCE ONCE PO Last administered on 01/19/18at 10 :13; Start 01/19/18 at 10:15; Stop 01/19/18 at 10:16; Status DC Piperacillin Sod/ Tazobactam Sod 50 ml @ 100 mls/hr Q8H IV Last administered on 01/19/18at 07:46; Start 01/17/18 at 17:00; Stop 01/19/18 at 09:29; Status DC Polyethylene Glycol (Miralax) 17 gm DAILY PO Last administered on 01/24/18at 08: 06; Start 01/20/18 at 09:00 Potassium Chloride (KCl) 20 meq ONCE ONCE PO Last administered on 01/21/18at 11: 48; Start 01/21/18 at 09:45; Stop 01/21/18 at 10:08; Status DC Senna/Docusate Sodium (Lizz-Colace) 1 tab BID PO Last administered on at 08:06; Start 01/19/18 at 21:00 Sodium Bicarbonate 150 meq/Dextrose 1,000 ml @ 100 mls/hr Q10H IV Last administered on 01/17/18at 23:17; Start 01/16/18 at 16:15; Stop 01/18/18 at 11:01; Status DC Sodium Bicarbonate (Sodium Bicarbonate 8.4% Inj) 50 meq ONCE ONCE IV PUSH Last administered on 01/16/18at 17:59; Start 01/16/18 at 16:15; Stop 01/16/18 at 16: 21; Status DC Sodium Chloride 250 ml @ 15 mls/hr ONCE ONCE IV Last administered on at 06:45; Start 01/23/18 at 06:45; Stop 01/23/18 at 23:24; Status DC Sodium Chloride (NS Flush) 2 ml BID IV FLUSH Last administered on 01/24/18at 21: 21; Start 01/19/18 at 21:00 Ziprasidone (Geodon Inj) 10 mg Q12H PRN IM AGITATION, breakthrough; Start at 09:15; Stop 01/22/18 at 09:14; Status DC A/P Assessment and Plan A/P Septic shock -resolved Group A strep septicemia Diabetic foot infection and abscess status post drainage and debridement on 01/20 s/p debridement of both feet along with wound vac placement- podiatry following. wound care consulted. wound vac management per podiatry/ wound care. On cefazolin- ID following. Pertinent microbiology 01/14 -blood cultures 2 beta strep group A 01/15 and 01/16 -wound -beta strep group A 01/16-01/17 -blood cultures 2 -no growth 01/17 -UA -no growth Metabolic encephalopathy secondary to sepsis -resolved. Schizophrenia Posttraumatic stress disorder resume home meds. History of hypertension resume Amlodipine continue to monitor BP and adjust the regimen as needed. Nonoliguric BISHOP Hypokalemia 01/16 Lasix 40 mg IV 1 dose 01/17 vascular cath placement had HD on 01/18 and 01/20- HD on hold for now per nephrology. Nephrology following- Avoid nephrotoxic drugs Hepatitis C antibody positive. Genotype not detected and viral load pending Elevated LFTs- Shock Liver Hepatomegaly Cholelithiasis Monitor CMP 01/16 ultrasound of the liver- Trace ascites. Findings most consistent with hepatic steatosis or liver disease. Cholelithiasis with gallbladder wall prominence but trace pericholecystic fluid Hepatitis C IgG antibody positive GI consulted appreciate recommendations; f/u with GI as outpatient. Noted VICKIE positive. Normocytic anemia - Coagulopathy -INR remains elevated Transfused 2 units PRBC on 01/21 and 01/23 Transfused 2 units FFP on 01/21 as well H/H stable after transfusion- continue to monitor H/H continue PT. Diabetes mellitus resumed diet - continue levemir and continue with accu-check with SSI Glipizide 10 mg p.o. twice daily home medication held Prophylaxis: GI Prophylaxis Pantoprazole DVT Prophylaxis -- SCDs Teds and SCDs. Heparin SQ on hold in the setting of elevated INR. for transfer to telemetry. Joshua Black MD January 25, 2018 07:19
[2018-01-25] MEDS: LACTULOSE SYRUP 20 GM/30 ML CUP PO SCH (07:25)
[2018-01-25] MEDS: DOCUSATE SODIUM 50 MG/SENNA 8.6 MG TAB PO SCH ×2 (07:26→21:00)
[2018-01-25] MEDS: POLYETHYLENE GLYCOL 17 GM PKG PO SCH (07:26)
[2018-01-25 07:37] LABS: INTERNATIONAL NORMALIZED RATIO 1.5 RATIO; PROTHROMBIN TIME - PATIENT 15.3 SEC (9.8-11.6)
[2018-01-25 07:54] LABS: AUTOMATED NEUTROPHIL # 13.2 TH/MM3 (1.8-7.7); BASOPHIL # 0.1 TH/MM3 (0-0.2); BASOPHIL % 0.4 % (0.0-2.0); EOSINOPHIL # 0.1 TH/MM3 (0-0.4); EOSINOPHIL % 0.7 % (0.0-4.0); HEMATOCRIT 23.7 % (39.0-51.0); HEMOGLOBIN 7.6 GM/DL (13.0-17.0); LYMPH % 8.1 % (9.0-44.0); LYMPHOCYTE # 1.3 TH/MM3 (1.0-4.8); MEAN CELL VOLUME 91.5 FL (80.0-100.0); MEAN CORPUSCULAR HEMOGLOBIN 29.4 PG (27.0-34.0); MEAN CORPUSCULAR HGB CONC 32.1 % (32.0-36.0); MEAN PLATELET VOLUME 8.9 FL (7.0-11.0); MONO % 11.1 % (0.0-8.0); MONOCYTE # 1.8 TH/MM3 (0-0.9); NEUT % 79.7 % (16.0-70.0); PLATELET COUNT 273 TH/MM3 (150-450); RED BLOOD COUNT 2.59 MIL/MM3 (4.50-5.90); WHITE BLOOD COUNT 16.6 TH/MM3 (4.0-11.0)
[2018-01-25 07:55] LABS: ALBUMIN 1.1 GM/DL (3.4-5.0); AST (GOT) 22 U/L (15-37); BICARBONATE 25.2 MEQ/L (21.0-32.0); BLOOD UREA NITROGEN 33 MG/DL (7-18); CALCIUM 7.6 MG/DL (8.5-10.1); CHLORIDE 104 MEQ/L (98-107); GLOMERULAR FILTRATION RATE 28 ML/MIN (>89); GLUCOSE,RANDOM 62 MG/DL (74-106); MAGNESIUM 1.8 MG/DL (1.5-2.5); SODIUM (NA) 138 MEQ/L (136-145)
[2018-01-25 07:59] LABS: ALKALINE PHOSPHATASE 458 U/L (45-117); ALT (GPT) LESS THAN 6 U/L (12-78); TOTAL BILIRUBIN ADULT 0.4 MG/DL (0.2-1.0); TOTAL PROTEIN 6.8 GM/DL (6.4-8.2)
[2018-01-25] MEDS: INSULIN ASPART SUPPLEMENTAL SCALE SQ SCH ×4 (08:00→21:52)
[2018-01-25] MEDS: INSULIN DETEMIR 100 UNITS/ML VIAL SQ SCH (08:52)
[2018-01-25] MEDS: PATIENT OWN MEDICATION PO SCH (09:00)
[2018-01-25] MEDS: SODIUM CHLORIDE 0.9% FLUSH 10 ML FLUSH IV FLUSH SCH ×2 (09:17→21:53)
[2018-01-25] MEDS: PANTOPRAZOLE SOD 40 MG DELAYED RELEASE TAB PO SCH (09:17)
[2018-01-25] MEDS: MUPIROCIN 2% OINT 1 APPLIC/GM SYR EACH NARE SCH ×2 (09:17→21:00)
[2018-01-25] MEDS: ASPIRIN 325 MG TAB PO SCH (09:17)
[2018-01-25] MEDS: amLODIPine BESYLATE 5 MG TAB PO SCH ×2 (09:17→09:20)
--- NOTE | 2018-01-25 13:17 | HHI.NPPN ---
Subjective Renal Failure: Acute Additional Remarks Patient is alert, with nasal cannula, mild SOB, not in distress. Review of Systems General Constitutional: Fatigue Heme-Lymph Heme-Lymph: Bleeding Skin Skin Remarks wounds to bilateral feet. Objective Data Data 01/25/18 01/26/18 19:00 07:00 Intake Total 360 ml Output Total 1110 ml Balance -750 ml Intake Oral 360 ml Output Urine Total 1100 ml Drainage Total 10 ml # Bowel Movements 1 Vital Signs Date Time Temp Pulse Resp B/P (MAP) Pulse Ox O2 Delivery O2 Flow Rate FiO2 01/25/18 12:00 70 01/25/18 12:00 98.2 70 12 139/63 (88) 100 01/25/18 10:00 93 01/25/18 09:21 97 Nasal Cannula 2.00 01/25/18 08:00 80 01/25/18 08:00 98.3 80 8 140/63 (88) 99 01/25/18 06:00 87 01/25/18 04:00 98.5 84 9 140/65 (90) 100 01/25/18 04:00 84 01/25/18 02:00 87 01/25/18 00:00 99.1 95 15 165/71 (102) 100 01/25/18 00:00 95 01/24/18 22:00 95 01/24/18 20:57 100 Nasal Cannula 2.00 01/24/18 20:00 98.2 82 13 150/67 (94) 100 01/24/18 20:00 82 01/24/18 18:00 84 01/24/18 16:00 98.5 76 20 148/67 (94) 100 01/24/18 16:00 76 01/24/18 14:00 72 -: 01/25/18 0558 01/25/18 0558 Tubes & Lines: Vas-Cath Tubes & Lines Comment wound vac bilateral feet Physical Exam General Appearance: Comfortable Ears & Nose Ears & Nose Exam: Tympanic Membranes Normal Pulmonary Resp Exam: Breath Sounds Equal, No Distress Cardiology CV Exam: Normal Sinus Rhythm, Good Perfusion Gastrointestinal/Abdomen GI Exam: Soft, Non-Tender, Bowel Sounds Present Musculoskeletal MS Exam: Joints Intact, Normal Tone, Unable to Ambulate Integumentary Skin Exam: Warm, Dry Extremeties Extremities Exam: Trace Edema Neurologic Neuro Exam: Alert, Awake, Speech Clear, Moving All Extremities Assessment/Plan Discussed Condition With: Patient Assessment Summary: BISHOP/Acute Renal Failure Problem List: (1) Acute worsening of stage 3 chronic kidney disease ICD Codes: N18.3 - Chronic kidney disease, stage 3 (moderate) Plan: Exact baseline is not known. Last year Creatinine was 1.7. BISHOP likely due to ATN from sepsis. He required 2 dialysis sessions, on 01/18 and 01/20 Renal function improved somewhat but not as much as we anticipated Still no need for dialysis. Monitor urine output, after Chirinos removal it has increased Continue to monitor renal profile. PO fluids encouraged Creatinine is stable at 2.4, Now for transfer out of ICU. (2) Sepsis ICD Codes: A41.9 - Sepsis, unspecified organism Status: Resolved Plan: ID following. On Cefazolin, Source is likely infected leg wounds. / blood cultures positive, wound culture also positive for Group B strep Leukocytosis continues (3) Anemia ICD Codes: D64.9 - Anemia, unspecified Status: Chronic Plan: Hb better s/p transfusion No significant bleeding at this time (4) Hyponatremia ICD Codes: E87.1 - Hypo-osmolality and hyponatremia Status: Acute Plan: Stable Documented history of psychogenic polydipsia. However given ETOH abuse, need to consider beer potomania. Improved. Plan patient was seen and examined. Agree with above assessment and plan. Patient's renal function has declined. Rule out urinary retention. Problem Qualifiers (1) Sepsis: Qualified Codes: A41.9 - Sepsis, unspecified organism Blank Yeboah MD January 25, 2018 13:17
[2018-01-25 16:01] LABS: AMORPHOUS SEDIMENT, URINE RARE; BACTERIA, URINE RARE /hpf; BILIRUBIN, URINE NEG (NEG); BLOOD, URINE MOD (NEG); GLUCOSE,URINE NEG (NEG); KETONE, URINE NEG (NEG); NITRITE,URINE NEG (NEG); PH, URINE 7.5 (5.0-8.5); URINE COLOR YELLOW (YELLW/STRAW); URINE LEUKOCYTE ESTERASE NEG (NEG)
[2018-01-26] VITALS (11 sets, daily range): BP systolic 124–162; BP diastolic 59–72; PULSE 69–102; RESP 18; TEMP 97.8–98.7; O2SAT 96–98
[2018-01-26] MEDS: MORPHINE SULFATE 4 MG/ML INJ IV PUSH PRN ×5 (03:56→21:07)
[2018-01-26] MEDS: CHLORHEXIDINE GLUCONATE 2 % 1 PACK (2 CLOTHS) TOP SCH (03:57)
[2018-01-26] MEDS: ceFAZolin 2 GM PREMIX 50 ML IV SCH ×2 (03:57→14:21)
[2018-01-26] MEDS: INSULIN DETEMIR 100 UNITS/ML VIAL SQ SCH (07:54)
[2018-01-26] MEDS: DOCUSATE SODIUM 50 MG/SENNA 8.6 MG TAB PO SCH ×2 (07:55→21:00)
[2018-01-26] MEDS: POLYETHYLENE GLYCOL 17 GM PKG PO SCH (07:55)
[2018-01-26] MEDS: LACTULOSE SYRUP 20 GM/30 ML CUP PO SCH (07:55)
[2018-01-26] MEDS: SODIUM CHLORIDE 0.9% FLUSH 10 ML FLUSH IV FLUSH SCH ×2 (07:55→21:14)
[2018-01-26] MEDS: INSULIN ASPART SUPPLEMENTAL SCALE SQ SCH ×4 (07:55→21:00)
[2018-01-26] MEDS: PANTOPRAZOLE SOD 40 MG DELAYED RELEASE TAB PO SCH (07:56)
[2018-01-26] MEDS: ASPIRIN 325 MG TAB PO SCH (07:56)
[2018-01-26] MEDS: PATIENT OWN MEDICATION PO SCH (07:58)
[2018-01-26] MEDS: MUPIROCIN 2% OINT 1 APPLIC/GM SYR EACH NARE SCH ×2 (07:59→21:15)
--- NOTE | 2018-01-26 09:14 | HHI.PR ---
Subjective Remarks in no acute distress. afebrile. pain controlled. no new complaints. d/w the RN. Objective Vitals Vital Signs Date Time Temp Pulse Resp B/P (MAP) Pulse Ox O2 Delivery O2 Flow Rate FiO2 01/26/18 08:00 98.4 88 18 140/65 (90) 97 01/26/18 04:00 97.8 95 18 141/69 (93) 96 01/26/18 00:00 98.2 102 18 124/59 (80) 97 01/25/18 20:08 97 Nasal Cannula 2.00 01/25/18 20:00 98.0 95 18 153/70 (97) 96 01/25/18 16:58 72 01/25/18 16:44 98.1 76 18 135/60 (85) 97 01/25/18 13:17 98.0 77 18 166/76 (106) 99 01/25/18 12:00 70 01/25/18 12:00 98.2 70 12 139/63 (88) 100 01/25/18 10:00 93 01/25/18 09:21 97 Nasal Cannula 2.00 I/O 01/25/18 01/25/18 01/25/18 01/26/18 01/26/18 01/26/18 07:00 15:00 23:00 07:00 15:00 23:00 Intake Total 78 ml 360 ml 50 ml Output Total 1650 ml 1110 ml 600 ml 450 ml Balance -1572 ml -750 ml -550 ml -450 ml Intake Oral 360 ml IV Total 78 ml 50 ml Output Urine Total 1450 ml 1100 ml 600 ml 450 ml Drainage Total 200 ml 10 ml # Voids 1 # Bowel Movements 3 1 2 Result Diagram: 01/25/18 0558 01/25/18 0558 Imaging Last Impressions Chest X-Ray 01/21/18 0600 Signed Impressions: Service Date/Time: Sunday, January 21, 2018 03:50 - CONCLUSION: Normal examination. Right IJ Vas-Cath in good position Duncan Zaldivar MD Foot MRI 01/19/18 0000 Signed Impressions: Service Date/Time: Friday, January 19, 2018 12:36 - CONCLUSION: 1. 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 These findings are very similar to the prior study 2016. 2. Plantar cutaneous defect and extensive midfoot plantar superficial soft tissue edema extending into the plantar musculature. These findings are suspicious for infection in the proper clinical setting. Elongated adjacent more medial and distal plantar soft tissue ovoid fluid collection may represent a pseudo-bursa or abscess. More ill-defined edema is seen extending laterally to the base of the fifth metatarsal with likely early osteomyelitis at this location. This lateral extension is a new finding when compared to the prior study of 2016. 3. Posterior superficial soft tissue edema the heel with mild adjacent bony edema is very similar to the prior study with no definitive osteomyelitis. Ganga Luna MD Abdomen X-Ray 01/19/18 Signed Impressions: Service Date/Time: Friday, January 19, 2018 10:57 - CONCLUSION: Nonspecific bowel gas pattern. Mildly distended air-filled stomach. Ganga Luna MD Liver Ultrasound 01/16/18 Signed Impressions: Service Date/Time: January 16:59 - CONCLUSION: 1. Hepatomegaly and diffuse increased hepatic echogenicity without intrahepatic ductal dilatation or focal mass. Findings are most consistent with hepatic steatosis or medical liver disease. 2. Trace ascites. 3. Cholelithiasis with gallbladder wall prominence and trace pericholecystic fluid. These findings may be seen in the setting of chronic liver disease or ascites and significantly limit ultrasound evaluation for acute cholecystitis. If there is significant clinical concern regarding acute cholecystitis, HIDA scan may be performed to evaluate for cystic duct patency. Nam Tinajero MD Head CT 01/14/182000 Signed Impressions: Service Date/Time: Sunday, January 14, 2018 20:22 - CONCLUSION: Normal examination for a patient of this age. Marcio Hansen MD Lower Extremity CT 01/14/18 Signed Impressions: Service Date/Time: Sunday, January 14, 2018 23:38 - CONCLUSION: 1. CT findings characteristic of a severe Charcot foot in the mid and hindfoot with collapse of the plantar arch. Osteoarthritic changes of the first MTP joint 2. However, findings all appear to be chronic with no acute osseous injury Marquis Mcdonald MD Abdomen/Pelvis CT 01/14/18 Signed Impressions: Service Date/Time: Sunday, January 14, 2018 23:35 - CONCLUSION: 1. CT findings suggest volume overload or low oncotic pressures with some flank and mesenteric edema, gallbladder wall thickening and some free fluid in the pelvis. Heart size is somewhat prominent. 2. Bilateral symmetric gynecomastia. Nonspecific findings but can be associated with some chronic disease processes or medications. 3. Left periaortic borderline prominent lymph nodes. Again, nonspecific but may be reactive associated with the aforementioned mesenteric edema. 4. 5.7 cm periumbilical fatty hernia. There is now some fluid along the periphery of the hernia. This could be related to the generalized edema described above although fatty infarction could have a similar radiographic presentation. Please correlate with clinical symptomatology Marquis Mcdonald MD Objective Remarks GENERAL: This is a well-nourished, well-developed patient, in no apparent distress. CARDIOVASCULAR: Regular rate and regular rhythm without murmurs, gallops, or rubs. RESPIRATORY: Clear to auscultation. Breath sounds equal bilaterally. No wheezes , rales, or rhonchi. GASTROINTESTINAL: Abdomen soft, non-tender, nondistended. Normal, active bowel sounds MUSCULOSKELETAL: both feet covered with clean dressing/ wound vac in place. NEURO: Alert & Oriented x4 to person, place, time, situation. Moves all ext x4 Procedures Vas-cath placement/ debridement of both feet/ wound vac placement. Medications and IVs Inpatient Medications Acetaminophen (Tylenol) 650 mg UNSCH PRN PO for headach, pain, temp > 101F; Start 01/17/18 at 17:00 Albumin Human 100 ml @ 60 mls/hr UNSCH PRN IV WITH DIALYSIS; Start 01/17/18 at 17:00 Albuterol Sulfate (Albuterol Neb) 2.5 mg Q2HR NEB PRN INH SOB/WHEEZING; Start 01/19/18 at 09:15 Albuterol/ Ipratropium (Duoneb Neb) 1 ampule Q2HR NEB PRN INH WHEEZING; Start 01/14/18 at 22:45; Stop 01/19/18 at 09:10; Status DC Amlodipine Besylate (Norvasc) 5 mg DAILY PO ; Start 01/25/18 at 09:00 Aspirin (Aspirin) 325 mg DAILY PO Last administered on 01/26/18at 07:56; Start 01/15/18 at 09:00 Bisacodyl (Dulcolax Supp) 10 mg DAILY PRN RECTAL SEVERE CONSITIPATION; Start at 09:15 Calcium Gluconate 2 gm/Dextrose 120 ml @ 120 mls/hr ONCE ONCE IV Last administered on 01/18/18at 12:06; Start 01/18/18 at 11:15; Stop 01/18/18 at 12:14; Status DC Cefazolin Sodium/ Dextrose 50 ml @ 100 mls/hr Q12H IV Last administered on at 03:57; Start 01/16/18 at 15:00 Chlorhexidine Gluconate (Chlorhexidine 2% Cloth) 3 pack UNSCH PRN TOP HYGIENIC CARE; Start 01/14/18 at 22:45 Clindamycin/ Sodium Chloride 50 ml @ 100 mls/hr Q6H IV Last administered on 01/15/18at 15:45; Start 01/15/18 at 04:00; Stop 01/15/18 at 22:46; Status DC Clonidine (Catapres) 0.1 mg UNSCH PRN PO for BP > 180/100 X 2 readings; Start 01/17/18 at 17:00 Daptomycin 800 mg/ Sodium Chloride 100 ml @ 200 mls/hr Q48H IV Last administered on 01/16/18at 00:30; Start 01/16/18 at 00:00; Stop 01/16/18 at 14:36; Status DC Dextrose 1,000 ml @ 30 mls/hr Q24H IV Last administered on 01/22/18at 10:30; Start 01/22/18 at 10:15; Stop 01/24/18 at 07:54; Status DC Dextrose (D50w (Vial) Inj) 50 ml UNSCH PRN IV PUSH HYPOGLYCEMIA-SEE COMMENTS Last administered on 01/22/18at 10:01; Start 01/19/18 at 09:15 Diphenhydramine HCl (Benadryl) 25 mg UNSCH PRN PO for hives/itching/anaphylaxis ; Start 01/17/18 at 17:00 Famotidine (Pepcid Inj) 10 mg Q12HR IV PUSH Last administered on 01/19/18at 07:47 ; Start 01/15/18 at 21:00; Stop 01/19/18 at 09:01; Status DC Fentanyl Citrate (fentaNYL INJ) 100 mcg ONCE ONCE IV PUSH Last administered on 01/17/18at 16:50; Start 01/17/18 at 16:45; Stop 01/17/18 at 16:59; Status DC Flumazenil (Romazicon Inj) 0.2 mg Q1M PRN IV PUSH SEE LABEL COMMENTS; Start 01/16/18 at 01:00 Gelatin (Gelfoam 100 Top) 1 foam ONCE ONCE TOPICAL Last administered on at 04:34; Start 01/21/18 at 04:15; Stop 01/21/18 at 04:16; Status DC Gelatin (Gelfoam 12 Mm/7 Mm Top) 1 foam UNSCH PRN TOP SEE LABEL COMMENTS; Start 01/17/18 at 17:00 Gentamicin Sulfate (Gentamicin Inj) 20 mg UNSCH PRN OTHER WITH DIALYSIS Last administered on 01/20/18at 11:15; Start 01/17/18 at 17:00 Glucagon (Glucagon Inj) 1 mg UNSCH PRN OTHER HYPOGLYCEMIA-SEE COMMENTS; Start 01/19/18 at 09:15 Glycerin (Glycerin Adult Supp) 2 gm ONCE ONCE RECTAL Last administered on at 09:49; Start 01/19/18 at 09:15; Stop 01/19/18 at 09:21; Status DC Heparin Sodium (Porcine) (Heparin Inj) 5,000 units Q8H SQ ; Start 01/19/18 at 10: 00; Stop 01/19/18 at 10:00; Status DC Hydralazine HCl (Apresoline Inj) 10 mg Q1H PRN IV PUSH SBP>160, DBP>90 Last administered on 01/20/18at 21:35; Start 01/19/18 at 09:45 Hydrocortisone Sodium Succinate (SoluCORTEF INJ) 50 mg DAILY IV PUSH Last administered on 01/20/18at 09:30; Start 01/19/18 at 09:00; Stop 01/21/18 at 08:59; Status DC Hydroxyzine Pamoate (Vistaril) 50 mg BID PO Last administered on 01/26/18at 07: 56; Start 01/19/18 at 10:00 Insulin Aspart (NovoLOG SUPPLEMENTAL SCALE) 1 ACHS SLIDING SCALE SQ ; Start 01/19/18 at 12:00; Stop 01/19/18 at 12:00; Status DC Insulin Detemir (Levemir Inj) 10 units ONCE ONCE SQ Last administered on at 10:07; Start 01/19/18 at 10:00; Stop 01/19/18 at 10:01; Status DC Insulin Human Regular 100 units/ Sodium Chloride 100 ml @ 0.5 mls/hr TITRATE PRN IV Blood Glucose Control Last administered on 01/19/18at 09:51; Start 01/17/18 at 17:30; Stop 01/19/18 at 09:22; Status DC Lactulose (Lactulose Liq) 30 ml DAILY PO Last administered on 01/24/18at 08:05; Start 01/20/18 at 09:00 Lorazepam (Ativan Inj) 1 mg Q4H PRN IV PUSH Agitation Last administered on at 01:04; Start 01/19/18 at 09:15 Lorazepam (Ativan) 2 mg Q2H PRN PO CIWA 11-14; Start 01/16/18 at 01:00; Status Future Hold Mannitol (Mannitol Inj) 12.5 gm UNSCH PRN IV WITH DIALYSIS; Start 01/17/18 at 17 :00 Midazolam HCl (Versed Inj) 2.5 mg ONCE ONCE IV PUSH Last administered on at 16:50; Start 01/17/18 at 16:45; Stop 01/17/18 at 17:00; Status DC Miscellaneous Information ([facility] DC previous DKA orders) 1 ONCE ONCE .XX Last administered on 01/19/18at 10:07; Start 01/19/18 at 09:15; Stop 01/19/18 at 09:19; Status DC Miscellaneous Information (Misc DC Insulin 2 hrs post Levemir) 1 ONCE ONCE .XX Last administered on 01/19/18at 10:08; Start 01/19/18 at 09:15; Stop 01/19/18 at 09:18; Status DC Miscellaneous Information ([facility] [place] Nursing Information) 1 Q361D XX ; Start 01/14/18 at 22:45 Miscellaneous Information ([facility] [place] Post-op Orders (for Pharmacy)) STAT ONCE XX ; Start 01/22/18 at 21:15; Stop 01/22/18 at 21:17; Status DC Morphine Sulfate (Morphine Inj) 1 mg Q4H PRN IV PUSH pain 6-10 Last administered on 01/26/18at 07:51; Start 01/19/18 at 10:00 Mupirocin (Bactroban Nasal 2% Oint) Taper BID EACH NARE Last administered on at 07:59; Start 01/19/18 at 21:00; Stop 01/15/19 at 20:59 Naloxone HCl (Narcan Inj) 0.4 mg UNSCH PRN IV PUSH SEE LABEL COMMENTS; Start at 21:15 Nitroglycerin (Nitroglycerin 2% Oint) 2 inch Q6H PRN TOPICAL SBP>160, DBP>90; Start 01/19/18 at 09:45 Nitroglycerin (Nitrostat Sl) 0.4 mg UNSCH PRN SL CHEST PAIN; Start 01/17/18 at 17:00 Ondansetron HCl (Zofran Inj) 4 mg Q6H PRN IV PUSH NAUSEA OR VOMITING; Start 01/19/18 at 09:15 Pantoprazole Sodium (Protonix) 40 mg DAILY PO Last administered on 01/26/18at 07 :56; Start 01/20/18 at 09:00 Patient Own Medication PT OWN MED: THIORIDAZINE DOSE 10... DAILY PO Last administered on 01/26/18at 07:58; Start 01/20/18 at 09:00; Status Future hold Phytonadione (Mephyton Liq) 5 mg ONCE ONCE PO Last administered on 01/19/18at 10 :13; Start 01/19/18 at 10:15; Stop 01/19/18 at 10:16; Status DC Piperacillin Sod/ Tazobactam Sod 50 ml @ 100 mls/hr Q8H IV Last administered on 01/19/18at 07:46; Start 01/17/18 at 17:00; Stop 01/19/18 at 09:29; Status DC Polyethylene Glycol (Miralax) 17 gm DAILY PO Last administered on 01/24/18at 08: 06; Start 01/20/18 at 09:00 Potassium Chloride (KCl) 20 meq ONCE ONCE PO Last administered on 01/21/18at 11: 48; Start 01/21/18 at 09:45; Stop 01/21/18 at 10:08; Status DC Senna/Docusate Sodium (Lizz-Colace) 1 tab BID PO Last administered on at 08:06; Start 01/19/18 at 21:00 Sodium Bicarbonate 150 meq/Dextrose 1,000 ml @ 100 mls/hr Q10H IV Last administered on 01/17/18at 23:17; Start 01/16/18 at 16:15; Stop 01/18/18 at 11:01; Status DC Sodium Bicarbonate (Sodium Bicarbonate 8.4% Inj) 50 meq ONCE ONCE IV PUSH Last administered on 01/16/18at 17:59; Start 01/16/18 at 16:15; Stop 01/16/18 at 16: 21; Status DC Sodium Chloride 250 ml @ 15 mls/hr ONCE ONCE IV Last administered on at 06:45; Start 01/23/18 at 06:45; Stop 01/23/18 at 23:24; Status DC Sodium Chloride (NS Flush) 2 ml BID IV FLUSH Last administered on 01/26/18at 07: 55; Start 01/19/18 at 21:00 Ziprasidone (Geodon Inj) 10 mg Q12H PRN IM AGITATION, breakthrough; Start at 09:15; Stop 01/22/18 at 09:14; Status DC A/P Assessment and Plan A/P Septic shock -resolved Group A strep septicemia Diabetic foot infection and abscess status post drainage and debridement on 01/20 s/p debridement of both feet along with wound vac placement- podiatry following. wound care consulted. wound vac management per podiatry/ wound care. On cefazolin- ID following. Pertinent microbiology 01/14 -blood cultures 2 beta strep group A 01/15 and 01/16 -wound -beta strep group A 01/16-01/17 -blood cultures 2 -no growth 01/17 -UA -no growth Metabolic encephalopathy secondary to sepsis -resolved. Schizophrenia Posttraumatic stress disorder resumed home meds. History of hypertension resumed Amlodipine continue to monitor BP and adjust the regimen as needed. Nonoliguric BISHOP Hypokalemia 01/16 Lasix 40 mg IV 1 dose 01/17 vascular cath placement had HD on 01/18 and 01/20- HD on hold for now per nephrology. continue to monitor renal function. Nephrology following- Avoid nephrotoxic drugs Hepatitis C antibody positive. Genotype not detected and viral load pending Elevated LFTs- Shock Liver Hepatomegaly Cholelithiasis Monitor CMP 01/16 ultrasound of the liver- Trace ascites. Findings most consistent with hepatic steatosis or liver disease. Cholelithiasis with gallbladder wall prominence but trace pericholecystic fluid Hepatitis C IgG antibody positive GI consulted appreciate recommendations; f/u with GI as outpatient. Noted VICKIE positive. Normocytic anemia - Coagulopathy -INR remains elevated Transfused 2 units PRBC on 01/21 and 01/23 Transfused 2 units FFP on 01/21 as well H/H stable after transfusion- continue to monitor H/H continue PT. Diabetes mellitus resumed diet - continue levemir and continue with accu-check with SSI Glipizide 10 mg p.o. twice daily home medication held Prophylaxis: GI Prophylaxis Pantoprazole DVT Prophylaxis -- SCDs Teds and SCDs. Heparin SQ on hold in the setting of elevated INR. Discharge Planning awaiting renal recovery/ dc planning when cleared by ID and nephrology. Joshua Black MD January 26, 2018 09:14
--- NOTE | 2018-01-26 10:49 | HHI.NPPN ---
Subjective Renal Failure: Acute Additional Remarks Patient is alert, not in distress. (Jeaneth Combs) Review of Systems General Constitutional: Fatigue (Jeaneth Combs) Skin Skin Remarks wounds to bilateral feet. (Jeaneth Combs) Objective Data Data Vital Signs Date Time Temp Pulse Resp B/P (MAP) Pulse Ox O2 Delivery O2 Flow Rate FiO2 01/26/18 09:17 101 01/26/18 08:00 98.4 88 18 140/65 (90) 97 01/26/18 04:00 97.8 95 18 141/69 (93) 96 01/26/18 00:00 98.2 102 18 124/59 (80) 97 01/25/18 20:08 97 Nasal Cannula 2.00 01/25/18 20:00 98.0 95 18 153/70 (97) 96 01/25/18 16:58 72 01/25/18 16:44 98.1 76 18 135/60 (85) 97 01/25/18 13:17 98.0 77 18 166/76 (106) 99 01/25/18 12:00 70 01/25/18 12:00 98.2 70 12 139/63 (88) 100 (Jeaneth Combs) -: 01/25/18 0558 01/25/18 0558 Imaging Last Impressions Chest X-Ray 01/21/18 0600 Signed Impressions: Service Date/Time: Sunday, January 21, 2018 03:50 - CONCLUSION: Normal examination. Right IJ Vas-Cath in good position Duncan Zaldivar MD Foot MRI 01/19/18 0000 Signed Impressions: Service Date/Time: Friday, January 19, 2018 12:36 - CONCLUSION: 1. 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 These findings are very similar to the prior study 2016. 2. Plantar cutaneous defect and extensive midfoot plantar superficial soft tissue edema extending into the plantar musculature. These findings are suspicious for infection in the proper clinical setting. Elongated adjacent more medial and distal plantar soft tissue ovoid fluid collection may represent a pseudo-bursa or abscess. More ill-defined edema is seen extending laterally to the base of the fifth metatarsal with likely early osteomyelitis at this location. This lateral extension is a new finding when compared to the prior study of 2016. 3. Posterior superficial soft tissue edema the heel with mild adjacent bony edema is very similar to the prior study with no definitive osteomyelitis. Ganga Luna MD Abdomen X-Ray 01/19/18 Signed Impressions: Service Date/Time: Friday, January 19, 2018 10:57 - CONCLUSION: Nonspecific bowel gas pattern. Mildly distended air-filled stomach. Ganga Luna MD Liver Ultrasound 01/16/18 Signed Impressions: Service Date/Time: January 16:59 - CONCLUSION: 1. Hepatomegaly and diffuse increased hepatic echogenicity without intrahepatic ductal dilatation or focal mass. Findings are most consistent with hepatic steatosis or medical liver disease. 2. Trace ascites. 3. Cholelithiasis with gallbladder wall prominence and trace pericholecystic fluid. These findings may be seen in the setting of chronic liver disease or ascites and significantly limit ultrasound evaluation for acute cholecystitis. If there is significant clinical concern regarding acute cholecystitis, HIDA scan may be performed to evaluate for cystic duct patency. Nam Tinajero MD Head CT 01/14/182000 Signed Impressions: Service Date/Time: Sunday, January 14, 2018 20:22 - CONCLUSION: Normal examination for a patient of this age. Marcio Hansen MD Lower Extremity CT 01/14/18 Signed Impressions: Service Date/Time: Sunday, January 14, 2018 23:38 - CONCLUSION: 1. CT findings characteristic of a severe Charcot foot in the mid and hindfoot with collapse of the plantar arch. Osteoarthritic changes of the first MTP joint 2. However, findings all appear to be chronic with no acute osseous injury Marquis Mcdonald MD Abdomen/Pelvis CT 01/14/18 Signed Impressions: Service Date/Time: Sunday, January 14, 2018 23:35 - CONCLUSION: 1. CT findings suggest volume overload or low oncotic pressures with some flank and mesenteric edema, gallbladder wall thickening and some free fluid in the pelvis. Heart size is somewhat prominent. 2. Bilateral symmetric gynecomastia. Nonspecific findings but can be associated with some chronic disease processes or medications. 3. Left periaortic borderline prominent lymph nodes. Again, nonspecific but may be reactive associated with the aforementioned mesenteric edema. 4. 5.7 cm periumbilical fatty hernia. There is now some fluid along the periphery of the hernia. This could be related to the generalized edema described above although fatty infarction could have a similar radiographic presentation. Please correlate with clinical symptomatology Marquis Mcdonald MD Tubes & Lines: Vas-Cath Tubes & Lines Comment wound vac bilateral feet (GellerJeaneth ochoa M. [employer] AUTHORING SPECIALIST) Physical Exam General Appearance: Comfortable (GellermannJessJeaneth M. M[employer] AUTHORING SPECIALIST) Ears & Nose Ears & Nose Exam: Tympanic Membranes Normal (GellermannJessJeaneth M. M[employer] AUTHORING SPECIALIST) Pulmonary Resp Exam: Breath Sounds Equal, No Distress (GellermannJessJeaneth M. M[employer] AUTHORING SPECIALIST) Cardiology CV Exam: Normal Sinus Rhythm, Good Perfusion (EldalerJess ochoane M. [employer] AUTHORING SPECIALIST) Gastrointestinal/Abdomen GI Exam: Soft, Non-Tender, Bowel Sounds Present (GellermannJessJeaneth M. M[employer] AUTHORING SPECIALIST) Musculoskeletal MS Exam: Joints Intact, Normal Tone, Unable to Ambulate (GellermannJeaneth M. M[employer] AUTHORING SPECIALIST) Integumentary Skin Exam: Warm, Dry (EldalerJess ochoane M. M[employer] AUTHORING SPECIALIST) Extremeties Extremities Exam: Trace Edema (EldalerJess ochoane M. M[employer] AUTHORING SPECIALIST) Neurologic Neuro Exam: Alert, Awake, Speech Clear, Moving All Extremities (EldalerJeaneth ochoa. M[employer] AUTHORING SPECIALIST) Assessment/Plan Discussed Condition With: Patient Assessment Summary: BISHOP/Acute Renal Failure Problem List: (1) Acute worsening of stage 3 chronic kidney disease ICD Codes: N18.3 - Chronic kidney disease, stage 3 (moderate) Plan: Exact baseline is not known. Last year Creatinine was 1.7. BISHOP likely due to ATN from sepsis. He required 2 dialysis sessions, on 01/18 and 01/20 No need for dialysis labs in AM Continue to monitor renal profile. PO fluids encouraged Urinary output at 2.1 Liters/24 hours Labs in AM Dr. Mcmahon to resume care tomorrow (2) Sepsis ICD Codes: A41.9 - Sepsis, unspecified organism Status: Resolved Plan: ID following. On Cefazolin, Source is likely infected leg wounds. 4/4 blood cultures positive, wound culture also positive for Group B strep (3) Anemia ICD Codes: D64.9 - Anemia, unspecified Status: Chronic Plan: Hb better s/p transfusion No significant bleeding at this time (4) Hyponatremia ICD Codes: E87.1 - Hypo-osmolality and hyponatremia Status: Acute Plan: Stable Documented history of psychogenic polydipsia. However given ETOH abuse, need to consider beer potomania. Improved. (Jeaneth Combs) Problem List: (1) Acute worsening of stage 3 chronic kidney disease ICD Codes: N18.3 - Chronic kidney disease, stage 3 (moderate) Plan: Exact baseline is not known. Last year Creatinine was 1.7. BISHOP likely due to ATN from sepsis. He required 2 dialysis sessions, on 01/18 and 01/20 No need for dialysis labs in AM Continue to monitor renal profile. PO fluids encouraged Urinary output at 2.1 Liters/24 hours Labs in AM Patient seen and examined, agree with above. Creatinine is stable. Dr. Mcmahon to resume care from AM. (2) Sepsis ICD Codes: A41.9 - Sepsis, unspecified organism Status: Resolved Plan: ID following. On Cefazolin, Source is likely infected leg wounds. /4 blood cultures positive, wound culture also positive for Group B strep (3) Anemia ICD Codes: D64.9 - Anemia, unspecified Status: Chronic Plan: Hb better s/p transfusion No significant bleeding at this time (4) Hyponatremia ICD Codes: E87.1 - Hypo-osmolality and hyponatremia Status: Acute Plan: Stable Documented history of psychogenic polydipsia. However given ETOH abuse, need to consider beer potomania. Improved. (Blank Yeboah MD) Problem Qualifiers (1) Sepsis: Qualified Codes: A41.9 - Sepsis, unspecified organism Jeaneth Combs January 26, 2018 10:49 Blank Yeboah MD January 26, 2018 13:13
[2018-01-27] VITALS (9 sets, daily range): BP systolic 141–160; BP diastolic 65–70; PULSE 18–98; RESP 16–18; TEMP 98.1–98.5; O2SAT 96–97
[2018-01-27] MEDS: MORPHINE SULFATE 4 MG/ML INJ IV PUSH PRN ×6 (01:02→22:50)
[2018-01-27] MEDS: ceFAZolin 2 GM PREMIX 50 ML IV SCH ×2 (03:52→14:22)
[2018-01-27] MEDS: CHLORHEXIDINE GLUCONATE 2 % 1 PACK (2 CLOTHS) TOP SCH (04:00)
[2018-01-27 07:56] LABS: BASOPHIL # 0.1 TH/MM3 (0-0.2); BASOPHIL % 0.9 % (0.0-2.0); EOSINOPHIL # 0.2 TH/MM3 (0-0.4); EOSINOPHIL % 1.5 % (0.0-4.0); HEMATOCRIT 22.1 % (39.0-51.0); HEMOGLOBIN 7.4 GM/DL (13.0-17.0); LYMPH % 15.8 % (9.0-44.0); LYMPHOCYTE # 1.8 TH/MM3 (1.0-4.8); MEAN CELL VOLUME 89.2 FL (80.0-100.0); MEAN CORPUSCULAR HEMOGLOBIN 29.9 PG (27.0-34.0); MEAN CORPUSCULAR HGB CONC 33.5 % (32.0-36.0); MONO % 10.9 % (0.0-8.0); MONOCYTE # 1.2 TH/MM3 (0-0.9); NEUT % 70.9 % (16.0-70.0); PLATELET COUNT 341 TH/MM3 (150-450); RED BLOOD COUNT 2.48 MIL/MM3 (4.50-5.90); RED CELL DISTRIBUTION WIDTH 15.1 % (11.6-17.2); WHITE BLOOD COUNT 11.2 TH/MM3 (4.0-11.0)
[2018-01-27] MEDS: INSULIN ASPART SUPPLEMENTAL SCALE SQ SCH ×4 (08:00→20:13)
[2018-01-27 08:21] LABS: BICARBONATE 25.3 MEQ/L (21.0-32.0); CALCIUM 8.3 MG/DL (8.5-10.1); CREATININE 2.74 MG/DL (0.60-1.30)
[2018-01-27] MEDS: amLODIPine BESYLATE 5 MG TAB PO SCH (08:52)
[2018-01-27] MEDS: ASPIRIN 325 MG TAB PO SCH (08:52)
[2018-01-27] MEDS: PANTOPRAZOLE SOD 40 MG DELAYED RELEASE TAB PO SCH (08:52)
[2018-01-27] MEDS: POLYETHYLENE GLYCOL 17 GM PKG PO SCH (09:00)
[2018-01-27] MEDS: PATIENT OWN MEDICATION PO SCH (09:00)
[2018-01-27] MEDS: LACTULOSE SYRUP 20 GM/30 ML CUP PO SCH (09:00)
[2018-01-27] MEDS: INSULIN DETEMIR 100 UNITS/ML VIAL SQ SCH (09:00)
--- NOTE | 2018-01-27 09:21 | HHI.PR ---
Subjective Remarks in no acute distress. pain is controlled. no fever. no new complaints. Objective Vitals Vital Signs Date Time Temp Pulse Resp B/P (MAP) Pulse Ox O2 Delivery O2 Flow Rate FiO2 01/27/18 08:00 98.1 18 18 160/70 (100) 97 01/27/18 03:59 98.1 83 16 145/67 (93) 96 01/27/18 00:00 98.3 95 18 158/70 (99) 96 01/26/18 21:31 98 Nasal Cannula 2.00 01/26/18 21:22 98.7 84 18 151/69 (96) 98 01/26/18 20:00 84 01/26/18 16:46 85 01/26/18 16:12 98.1 76 18 162/72 (102) 97 01/26/18 13:24 69 01/26/18 12:00 98.0 75 18 140/63 (88) 96 I/O 01/26/18 01/26/18 01/26/18 01/27/18 01/27/18 01/27/18 07:00 15:00 23:00 07:00 15:00 23:00 Intake Total 50 ml Output Total 450 ml 400 ml 600 ml 600 ml Balance -450 ml -400 ml -550 ml -600 ml IV Total 50 ml Output Urine Total 450 ml 400 ml 600 ml 600 ml # Voids 2 # Bowel Movements 4 2 Result Diagram: 01/27/18 0718 01/27/18 0718 Imaging Last Impressions Chest X-Ray 01/21/18 0600 Signed Impressions: Service Date/Time: Sunday, January 21, 2018 03:50 - CONCLUSION: Normal examination. Right IJ Vas-Cath in good position Duncan Zaldivar MD Foot MRI 01/19/18 0000 Signed Impressions: Service Date/Time: Friday, January 19, 2018 12:36 - CONCLUSION: 1. 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 These findings are very similar to the prior study 2016. 2. Plantar cutaneous defect and extensive midfoot plantar superficial soft tissue edema extending into the plantar musculature. These findings are suspicious for infection in the proper clinical setting. Elongated adjacent more medial and distal plantar soft tissue ovoid fluid collection may represent a pseudo-bursa or abscess. More ill-defined edema is seen extending laterally to the base of the fifth metatarsal with likely early osteomyelitis at this location. This lateral extension is a new finding when compared to the prior study of 2016. 3. Posterior superficial soft tissue edema the heel with mild adjacent bony edema is very similar to the prior study with no definitive osteomyelitis. Ganga Luna MD Abdomen X-Ray 01/19/18 Signed Impressions: Service Date/Time: Friday, January 19, 2018 10:57 - CONCLUSION: Nonspecific bowel gas pattern. Mildly distended air-filled stomach. Ganga Luna MD Liver Ultrasound 01/16/18 Signed Impressions: Service Date/Time: January 16:59 - CONCLUSION: 1. Hepatomegaly and diffuse increased hepatic echogenicity without intrahepatic ductal dilatation or focal mass. Findings are most consistent with hepatic steatosis or medical liver disease. 2. Trace ascites. 3. Cholelithiasis with gallbladder wall prominence and trace pericholecystic fluid. These findings may be seen in the setting of chronic liver disease or ascites and significantly limit ultrasound evaluation for acute cholecystitis. If there is significant clinical concern regarding acute cholecystitis, HIDA scan may be performed to evaluate for cystic duct patency. Nam Tinajero MD Head CT 01/14/182000 Signed Impressions: Service Date/Time: Sunday, January 14, 2018 20:22 - CONCLUSION: Normal examination for a patient of this age. Marcio Hansen MD Lower Extremity CT 01/14/18 Signed Impressions: Service Date/Time: Sunday, January 14, 2018 23:38 - CONCLUSION: 1. CT findings characteristic of a severe Charcot foot in the mid and hindfoot with collapse of the plantar arch. Osteoarthritic changes of the first MTP joint 2. However, findings all appear to be chronic with no acute osseous injury Marquis Mcdonald MD Abdomen/Pelvis CT 01/14/18 Signed Impressions: Service Date/Time: Sunday, January 14, 2018 23:35 - CONCLUSION: 1. CT findings suggest volume overload or low oncotic pressures with some flank and mesenteric edema, gallbladder wall thickening and some free fluid in the pelvis. Heart size is somewhat prominent. 2. Bilateral symmetric gynecomastia. Nonspecific findings but can be associated with some chronic disease processes or medications. 3. Left periaortic borderline prominent lymph nodes. Again, nonspecific but may be reactive associated with the aforementioned mesenteric edema. 4. 5.7 cm periumbilical fatty hernia. There is now some fluid along the periphery of the hernia. This could be related to the generalized edema described above although fatty infarction could have a similar radiographic presentation. Please correlate with clinical symptomatology Marquis Mcdonald MD Objective Remarks GENERAL: This is a well-nourished, well-developed patient, in no apparent distress. CARDIOVASCULAR: Regular rate and regular rhythm without murmurs, gallops, or rubs. RESPIRATORY: Clear to auscultation. Breath sounds equal bilaterally. No wheezes , rales, or rhonchi. GASTROINTESTINAL: Abdomen soft, non-tender, nondistended. Normal, active bowel sounds MUSCULOSKELETAL: both feet covered with clean dressing/ wound vac in place. NEURO: Alert & Oriented x4 to person, place, time, situation. Moves all ext x4 Procedures Vas-cath placement/ debridement of both feet/ wound vac placement. Medications and IVs Inpatient Medications Acetaminophen (Tylenol) 650 mg UNSCH PRN PO for headach, pain, temp > 101F; Start 01/17/18 at 17:00 Albumin Human 100 ml @ 60 mls/hr UNSCH PRN IV WITH DIALYSIS; Start 01/17/18 at 17:00 Albuterol Sulfate (Albuterol Neb) 2.5 mg Q2HR NEB PRN INH SOB/WHEEZING; Start 01/19/18 at 09:15 Albuterol/ Ipratropium (Duoneb Neb) 1 ampule Q2HR NEB PRN INH WHEEZING; Start 01/14/18 at 22:45; Stop 01/19/18 at 09:10; Status DC Amlodipine Besylate (Norvasc) 5 mg DAILY PO ; Start 01/25/18 at 09:00 Aspirin (Aspirin) 325 mg DAILY PO Last administered on 01/27/18at 08:52; Start 01/15/18 at 09:00 Bisacodyl (Dulcolax Supp) 10 mg DAILY PRN RECTAL SEVERE CONSITIPATION; Start at 09:15 Calcium Gluconate 2 gm/Dextrose 120 ml @ 120 mls/hr ONCE ONCE IV Last administered on 01/18/18at 12:06; Start 01/18/18 at 11:15; Stop 01/18/18 at 12:14; Status DC Cefazolin Sodium/ Dextrose 50 ml @ 100 mls/hr Q12H IV Last administered on at 03:52; Start 01/16/18 at 15:00 Chlorhexidine Gluconate (Chlorhexidine 2% Cloth) 3 pack UNSCH PRN TOP HYGIENIC CARE; Start 01/14/18 at 22:45 Clindamycin/ Sodium Chloride 50 ml @ 100 mls/hr Q6H IV Last administered on 01/15/18at 15:45; Start 01/15/18 at 04:00; Stop 01/15/18 at 22:46; Status DC Clonidine (Catapres) 0.1 mg UNSCH PRN PO for BP > 180/100 X 2 readings; Start 01/17/18 at 17:00 Daptomycin 800 mg/ Sodium Chloride 100 ml @ 200 mls/hr Q48H IV Last administered on 01/16/18at 00:30; Start 01/16/18 at 00:00; Stop 01/16/18 at 14:36; Status DC Dextrose 1,000 ml @ 30 mls/hr Q24H IV Last administered on 01/22/18at 10:30; Start 01/22/18 at 10:15; Stop 01/24/18 at 07:54; Status DC Dextrose (D50w (Vial) Inj) 50 ml UNSCH PRN IV PUSH HYPOGLYCEMIA-SEE COMMENTS Last administered on 01/22/18at 10:01; Start 01/19/18 at 09:15 Diphenhydramine HCl (Benadryl) 25 mg UNSCH PRN PO for hives/itching/anaphylaxis ; Start 01/17/18 at 17:00 Famotidine (Pepcid Inj) 10 mg Q12HR IV PUSH Last administered on 01/19/18at 07:47 ; Start 01/15/18 at 21:00; Stop 01/19/18 at 09:01; Status DC Fentanyl Citrate (fentaNYL INJ) 100 mcg ONCE ONCE IV PUSH Last administered on 01/17/18at 16:50; Start 01/17/18 at 16:45; Stop 01/17/18 at 16:59; Status DC Flumazenil (Romazicon Inj) 0.2 mg Q1M PRN IV PUSH SEE LABEL COMMENTS; Start 01/16/18 at 01:00 Gelatin (Gelfoam 100 Top) 1 foam ONCE ONCE TOPICAL Last administered on at 04:34; Start 01/21/18 at 04:15; Stop 01/21/18 at 04:16; Status DC Gelatin (Gelfoam 12 Mm/7 Mm Top) 1 foam UNSCH PRN TOP SEE LABEL COMMENTS; Start 01/17/18 at 17:00 Gentamicin Sulfate (Gentamicin Inj) 20 mg UNSCH PRN OTHER WITH DIALYSIS Last administered on 01/20/18at 11:15; Start 01/17/18 at 17:00 Glucagon (Glucagon Inj) 1 mg UNSCH PRN OTHER HYPOGLYCEMIA-SEE COMMENTS; Start 01/19/18 at 09:15 Glycerin (Glycerin Adult Supp) 2 gm ONCE ONCE RECTAL Last administered on at 09:49; Start 01/19/18 at 09:15; Stop 01/19/18 at 09:21; Status DC Heparin Sodium (Porcine) (Heparin Inj) 5,000 units Q8H SQ ; Start 01/19/18 at 10: 00; Stop 01/19/18 at 10:00; Status DC Hydralazine HCl (Apresoline Inj) 10 mg Q1H PRN IV PUSH SBP>160, DBP>90 Last administered on 01/20/18at 21:35; Start 01/19/18 at 09:45 Hydrocortisone Sodium Succinate (SoluCORTEF INJ) 50 mg DAILY IV PUSH Last administered on 01/20/18at 09:30; Start 01/19/18 at 09:00; Stop 01/21/18 at 08:59; Status DC Hydroxyzine Pamoate (Vistaril) 50 mg BID PO Last administered on 01/26/18at 21: 14; Start 01/19/18 at 10:00 Insulin Aspart (NovoLOG SUPPLEMENTAL SCALE) 1 ACHS SLIDING SCALE SQ ; Start 01/19/18 at 12:00; Stop 01/19/18 at 12:00; Status DC Insulin Detemir (Levemir Inj) 10 units ONCE ONCE SQ Last administered on at 10:07; Start 01/19/18 at 10:00; Stop 01/19/18 at 10:01; Status DC Insulin Human Regular 100 units/ Sodium Chloride 100 ml @ 0.5 mls/hr TITRATE PRN IV Blood Glucose Control Last administered on 01/19/18at 09:51; Start 01/17/18 at 17:30; Stop 01/19/18 at 09:22; Status DC Lactulose (Lactulose Liq) 30 ml DAILY PO Last administered on 01/24/18at 08:05; Start 01/20/18 at 09:00 Lorazepam (Ativan Inj) 1 mg Q4H PRN IV PUSH Agitation Last administered on at 01:04; Start 01/19/18 at 09:15 Lorazepam (Ativan) 2 mg Q2H PRN PO CIWA 11-14; Start 01/16/18 at 01:00; Status Future Hold Mannitol (Mannitol Inj) 12.5 gm UNSCH PRN IV WITH DIALYSIS; Start 01/17/18 at 17 :00 Midazolam HCl (Versed Inj) 2.5 mg ONCE ONCE IV PUSH Last administered on at 16:50; Start 01/17/18 at 16:45; Stop 01/17/18 at 17:00; Status DC Miscellaneous Information ([facility] [place] previous DKA orders) 1 ONCE ONCE .XX Last administered on 01/19/18at 10:07; Start 01/19/18 at 09:15; Stop 01/19/18 at 09:19; Status [place] Miscellaneous Information [place] [place] 2 hrs post Levemir[place] 1 ONCE ONCE .XX Last administered on 01/19/18at 10:08; Start 01/19/18 at 09:15; Stop 01/19/18 at 09:18; Status DC Miscellaneous Information [place] [place] 1 Q361D XX ; Start 01/14/18 at 22:45 Miscellaneous Information [place] [place]acy[place] STAT ONCE XX ; Start 01/22/18 at 21:15; Stop 01/22/18 at 21:17; Status DC Morphine Sulfate (Morphine Inj) 1 mg Q4H PRN IV PUSH pain 6-10 Last administered on 01/27/18at 05:15; Start 01/19/18 at 10:00 Mupirocin (Bactroban Nasal 2% Oint) Taper BID EACH NARE Last administered on at 21:15; Start 01/19/18 at 21:00; Stop 01/15/19 at 20:59 Naloxone HCl (Narcan Inj) 0.4 mg UNSCH PRN IV PUSH SEE LABEL COMMENTS; Start at 21:15 Nitroglycerin (Nitroglycerin 2% Oint) 2 inch Q6H PRN TOPICAL SBP>160, DBP>90; Start 01/19/18 at 09:45 Nitroglycerin (Nitrostat Sl) 0.4 mg UNSCH PRN SL CHEST PAIN; Start 01/17/18 at 17:00 Ondansetron HCl (Zofran Inj) 4 mg Q6H PRN IV PUSH NAUSEA OR VOMITING; Start 01/19/18 at 09:15 Pantoprazole Sodium (Protonix) 40 mg DAILY PO Last administered on 01/27/18at 08 :52; Start 01/20/18 at 09:00 Patient Own Medication PT OWN MED: THIORIDAZINE DOSE 10... DAILY PO Last administered on 01/26/18at 07:58; Start 01/20/18 at 09:00; Status Future hold Phytonadione (Mephyton Liq) 5 mg ONCE ONCE PO Last administered on 01/19/18at 10 :13; Start 01/19/18 at 10:15; Stop 01/19/18 at 10:16; Status DC Piperacillin Sod/ Tazobactam Sod 50 ml @ 100 mls/hr Q8H IV Last administered on 01/19/18at 07:46; Start 01/17/18 at 17:00; Stop 01/19/18 at 09:29; Status DC Polyethylene Glycol (Miralax) 17 gm DAILY PO Last administered on 01/24/18at 08: 06; Start 01/20/18 at 09:00 Potassium Chloride (KCl) 20 meq ONCE ONCE PO Last administered on 01/21/18at 11: 48; Start 01/21/18 at 09:45; Stop 01/21/18 at 10:08; Status DC Senna/Docusate Sodium (Lizz-Colace) 1 tab BID PO Last administered on at 08:06; Start 01/19/18 at 21:00 Sodium Bicarbonate 150 meq/Dextrose 1,000 ml @ 100 mls/hr Q10H IV Last administered on 01/17/18at 23:17; Start 01/16/18 at 16:15; Stop 01/18/18 at 11:01; Status DC Sodium Bicarbonate (Sodium Bicarbonate 8.4% Inj) 50 meq ONCE ONCE IV PUSH Last administered on 01/16/18at 17:59; Start 01/16/18 at 16:15; Stop 01/16/18 at 16: 21; Status DC Sodium Chloride 250 ml @ 15 mls/hr ONCE ONCE IV Last administered on at 06:45; Start 01/23/18 at 06:45; Stop 01/23/18 at 23:24; Status DC Sodium Chloride (NS Flush) 2 ml BID IV FLUSH Last administered on 01/26/18at 21: 14; Start 01/19/18 at 21:00 Ziprasidone (Geodon Inj) 10 mg Q12H PRN IM AGITATION, breakthrough; Start at 09:15; Stop 01/22/18 at 09:14; Status DC A/P Assessment and Plan A/P Septic shock -resolved Group A strep septicemia Diabetic foot infection and abscess status post drainage and debridement on 01/20 s/p debridement of both feet along with wound vac placement- podiatry following. wound care consulted. wound vac management per podiatry/ wound care. On cefazolin- ID following. Pertinent microbiology 01/14 -blood cultures 2 beta strep group A 01/15 and 01/16 -wound -beta strep group A 01/16-01/17 -blood cultures 2 -no growth 01/17 -UA -no growth Metabolic encephalopathy secondary to sepsis -resolved. Schizophrenia Posttraumatic stress disorder resumed home meds. History of hypertension resumed Amlodipine continue to monitor BP and adjust the regimen as needed. Nonoliguric BISHOP Hypokalemia 01/16 Lasix 40 mg IV 1 dose 01/17 vascular cath placement had HD on 01/18 and 01/20- HD on hold for now per nephrology. continue to monitor renal function. Nephrology following- Avoid nephrotoxic drugs Hepatitis C antibody positive. Genotype not detected and viral load pending Elevated LFTs- Shock Liver Hepatomegaly Cholelithiasis Monitor CMP 01/16 ultrasound of the liver- Trace ascites. Findings most consistent with hepatic steatosis or liver disease. Cholelithiasis with gallbladder wall prominence but trace pericholecystic fluid Hepatitis C IgG antibody positive GI consulted appreciate recommendations; f/u with GI as outpatient. Noted VICKIE positive. Normocytic anemia - Coagulopathy -INR remains elevated Transfused 2 units PRBC on 01/21 and 01/23 Transfused 2 units FFP on 01/21 as well continue to monitor H/H continue PT. Diabetes mellitus resumed diet - continue levemir and continue with accu-check with SSI Glipizide 10 mg p.o. twice daily home medication held Prophylaxis: GI Prophylaxis Pantoprazole DVT Prophylaxis -- SCDs Teds and SCDs. Heparin SQ on hold in the setting of elevated INR. Discharge Planning awaiting renal recovery/ dc planning when cleared by ID and nephrology. Joshua Black MD January 27, 2018 09:21
--- NOTE | 2018-01-27 12:14 | HHI.NPPN ---
Subjective Renal Failure: Acute Interval History He is awake and alert. Wound vac still in place. Renal function is worse today. (Laura Quesada) Review of Systems General Constitutional: Fatigue (Laura Quesada) Skin Skin Remarks wounds to bilateral feet. (Laura Quesada) Objective Data Data Vital Signs Date Time Temp Pulse Resp B/P (MAP) Pulse Ox O2 Delivery O2 Flow Rate FiO2 01/27/18 10:20 97 Nasal Cannula 2.00 01/27/18 08:00 98.1 18 18 160/70 (100) 97 01/27/18 08:00 98 01/27/18 03:59 98.1 83 16 145/67 (93) 96 01/27/18 00:00 98.3 95 18 158/70 (99) 96 01/26/18 21:31 98 Nasal Cannula 2.00 01/26/18 21:22 98.7 84 18 151/69 (96) 98 01/26/18 20:00 84 01/26/18 16:46 85 01/26/18 16:12 98.1 76 18 162/72 (102) 97 01/26/18 13:24 69 (Laura Quesada) -: 01/27/18 0718 01/27/18 0718 Tubes & Lines: Vas-Cath Tubes & Lines Comment wound vac bilateral feet (Laura Quesada) Physical Exam General Appearance: No Acute Distress, Comfortable Appearance Remarks disheveled, appears older than stated age (Laura Quesada) Ears & Nose Ears & Nose Exam: Tympanic Membranes Normal (Laura Quesada) Throat Throat Exam: Oral Mucosa [place] & Moist (Laura Quesada) Pulmonary Resp Exam: Breath Sounds Equal, No Distress (Laura Quesada) Cardiology CV Exam: Normal Sinus Rhythm, Good Perfusion (Laura Quesada) Gastrointestinal/Abdomen GI Exam: Soft, Non-Tender, Bowel Sounds Present (Laura Quesada) Musculoskeletal MS Exam: Joints Intact, Normal Tone, Unable to Ambulate (Laura Quesada) Integumentary Skin Exam: Warm, Dry Skin Remarks wound on bilateral feet/heals , dressings in place Wound vac in place (Laura Quesada) Extremeties Extremities Exam: Trace Edema (Laura Quesada) Neurologic Neuro Exam: Alert, Awake, Speech Clear, Moving All Extremities (Laura Quesada) Psychiatric Psych Exam: Appropriate Responses (Laura Quesada) Assessment/Plan Discussed Condition With: Patient Assessment Summary: BISHOP/Acute Renal Failure Problem List: (1) Acute worsening of stage 3 chronic kidney disease ICD Codes: N18.3 - Chronic kidney disease, stage 3 (moderate) Plan: Exact baseline is not known. Last year Creatinine was 1.7. BISHOP initially due to ATN from sepsis. He required 2 dialysis sessions, on 01/18 and 01/20 Since then his renal function has not improved as we would expect. Obtain renal US, rule out retention or stones Repeat UA noted from 01/25, RBC and blood present May have allergic interstitial nephritis due to antibiotic use; also new research has documented cases of AIN due to PPI use. Worsening could also be due to persistent infection. Stop all non essential medications. PO fluids encouraged He is making urine. Repeat labs in AM Still no need for dialysis. Vascath remains in place. (2) Sepsis ICD Codes: A41.9 - Sepsis, unspecified organism Status: Resolved Plan: ID following. On Cefazolin, Source is likely infected leg wounds. 4/4 blood cultures positive, wound culture also positive for Group B strep (3) Anemia ICD Codes: D64.9 - Anemia, unspecified Status: Chronic Plan: Hb is low, he was transfused last week No significant bleeding at this time (4) Hyponatremia ICD Codes: E87.1 - Hypo-osmolality and hyponatremia Status: Acute Plan: Stable Monitor (Laura Quesada) Plan patient was seen and examined. Renal function is worse. Unclear etiology. Could be AIN. Renal US revealed no hydronephrosis. (Shaun Mcmahon MD) Problem Qualifiers (1) Sepsis: Qualified Codes: A41.9 - Sepsis, unspecified organism Laura Quesada January 27, 2018 12:14 Shaun Mcmahon MD January 28, 2018 11:16
--- NOTE | 2018-01-27 16:20 | HHI.IDPN ---
Note Infectious Disease Note Patient says he feels okay. Notes that he has the same aches and pains as previous. He appears comfortable. Notes that his stools are slightly loose. Denies abdominal pain. Afebrile. Admitted with altered mental status. In the emergency department, his blood pressure was 85/53. The white blood cell count was elevated at 27 and lactic acid level of 3.1. PAST MEDICAL HISTORY: 1. Hypertension. 2. Anxiety/depression. 3. Hiatal hernia. 4. Schizophrenia. 5. Diabetes mellitus. 6. Charcot deformity of the feet. 7. A left pelvic fracture. 8. History of abscess of the right foot. ALLERGIES: VANCOMYCIN, LEVAQUIN, HALOPERIDOL, FLUPHENAZINE, CODEINE. MEDICATIONS: Antibiotics: Ancef. SOCIAL HISTORY: Positive alcohol use reportedly daily. No tobacco. No illicit drugs. Objective: Vital Signs Date Time Temp Pulse Resp B/P (MAP) Pulse Ox O2 Delivery O2 Flow Rate FiO2 01/27/18 12:00 74 01/27/18 12:00 98.4 76 18 141/65 (90) 97 01/27/18 10:20 97 Nasal Cannula 2.00 01/27/18 08:00 98.1 18 18 160/70 (100) 97 01/27/18 08:00 98 01/27/18 03:59 98.1 83 16 145/67 (93) 96 01/27/18 00:00 98.3 95 18 158/70 (99) 96 01/26/18 21:31 98 Nasal Cannula 2.00 01/26/18 21:22 98.7 84 18 151/69 (96) 98 01/26/18 20:00 84 01/26/18 16:46 85 Laboratory Tests Test 01/27/18 07:18 White Blood Count 11.2 TH/MM3 Red Blood Count 2.48 MIL/MM3 Hemoglobin 7.4 GM/DL Hematocrit 22.1 % Mean Corpuscular Volume 89.2 FL Mean Corpuscular Hemoglobin 29.9 PG Mean Corpuscular Hemoglobin Concent 33.5 % Red Cell Distribution Width 15.1 % Platelet Count 341 TH/MM3 Mean Platelet Volume 8.0 FL Neutrophils (%) (Auto) 70.9 % Lymphocytes (%) (Auto) 15.8 % Monocytes (%) (Auto) 10.9 % Eosinophils (%) (Auto) 1.5 % Basophils (%) (Auto) 0.9 % Neutrophils # (Auto) 8.0 TH/MM3 Lymphocytes # (Auto) 1.8 TH/MM3 Monocytes # (Auto) 1.2 TH/MM3 Eosinophils # (Auto) 0.2 TH/MM3 Basophils # (Auto) 0.1 TH/MM3 CBC Comment DIFF FINAL Differential Comment Laboratory Tests Test 01/27/18 07:18 Blood Urea Nitrogen 35 MG/DL Creatinine 2.74 MG/DL Random Glucose 65 MG/DL Calcium Level 8.3 MG/DL Sodium Level 137 MEQ/L Potassium Level 4.9 MEQ/L Chloride Level 107 MEQ/L Carbon Dioxide Level 25.3 MEQ/L Anion Gap 5 MEQ/L Estimat Glomerular Filtration Rate 24 ML/MIN Imaging: Chest X-Ray 01/20/18 0600 Signed Impressions: Service Date/Time: Saturday, January 20, 2018 04:15 - CONCLUSION: Right IJ Vas-Cath in good position. Heart is enlarged. Duncan Zaldivar MD Foot MRI 01/19/18 0000 Signed Impressions: Service Date/Time: Friday, January 19, 2018 12:36 - CONCLUSION: 1. 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 These findings are very similar to the prior study 2016. 2. Plantar cutaneous defect and extensive midfoot plantar superficial soft tissue edema extending into the plantar musculature. These findings are suspicious for infection in the proper clinical setting. Elongated adjacent more medial and distal plantar soft tissue ovoid fluid collection may represent a pseudo-bursa or abscess. More ill-defined edema is seen extending laterally to the base of the fifth metatarsal with likely early osteomyelitis at this location. This lateral extension is a new finding when compared to the prior study of 2016. 3. Posterior superficial soft tissue edema the heel with mild adjacent bony edema is very similar to the prior study with no definitive osteomyelitis. Ganga Luna MD Foot MRI 01/19/18 0000 Signed Impressions: Service Date/Time: Friday, January 19, 2018 12:36 - CONCLUSION: 1. Plantar cutaneous defect with underlying septated fluid signal extending into the area of plantar aponeurosis defect. This finding is much more prominent than on the comparison MRI and suggests soft tissue infection in the proper clinical setting. Defined rounded collection is not seen. The abnormal fluid signal extends to the plantar surface of the cuboid but no definitive evidence of osteomyelitis is seen. 2. Extensive arthritic findings and bony destructive findings in the midfoot and hindfoot similar to prior study of 2016 indicating severe neuropathic osteoarthropathy. Ganga Luna MD Abdomen X-Ray 01/19/18 Signed Impressions: Service Date/Time: Friday, January 19, 2018 10:57 - CONCLUSION: Nonspecific bowel gas pattern. Mildly distended air-filled stomach. Ganga Luna MD Head CT 01/14/182000 Signed Impressions: Service Date/Time: Sunday, January 14, 2018 20:22 - CONCLUSION: Normal examination for a patient of this age. Marcio Hansen MD Chest X-Ray 01/14/182000 Signed Impressions: Service Date/Time: Sunday, January 14, 2018 20:25 - CONCLUSION: 1. Mild cardiomegaly. No focal consolidation or effusion. Marcio Hansen MD Lower Extremity CT 01/14/18 Signed Impressions: Service Date/Time: Sunday, January 14, 2018 23:38 - CONCLUSION: 1. CT findings characteristic of a severe Charcot foot in the mid and hindfoot with collapse of the plantar arch. Osteoarthritic changes of the first MTP joint 2. However, findings all appear to be chronic with no acute osseous injury Marquis Mcdonald MD Abdomen/Pelvis CT 01/14/18 Signed Impressions: Service Date/Time: Sunday, January 14, 2018 23:35 - CONCLUSION: 1. CT findings suggest volume overload or low oncotic pressures with some flank and mesenteric edema, gallbladder wall thickening and some free fluid in the pelvis. Heart size is somewhat prominent. 2. Bilateral symmetric gynecomastia. Nonspecific findings but can be associated with some chronic disease processes or medications. 3. Left periaortic borderline prominent lymph nodes. Again, nonspecific but may be reactive associated with the aforementioned mesenteric edema. 4. 5.7 cm periumbilical fatty hernia. There is now some fluid along the periphery of the hernia. This could be related to the generalized edema described above although fatty infarction could have a similar radiographic presentation. Please correlate with clinical symptomatology Marquis Mcdonald MD PHYSICAL EXAMINATION: GENERAL: Patient is awake and alert. HEENT: Pupils reactive to light. The sclerae is pale. Oropharynx, dry mucosa. No lesions. No thrush. NECK: Supple without adenopathy or swelling. LUNGS: Clear breath sounds. HEART: Distant S1 and S2. No murmurs, rubs or gallops. ABDOMEN: Bowel sounds present, soft, mildly distended, protruding umbilical abdominal hernia. EXTREMITIES: No clubbing. No cyanosis. Trace. Wound VAC on left foot. SKIN: No diffuse rash. NEUROLOGIC: No gross focal finding. PSYCHIATRIC: Calm and cooperative. IMPRESSION: 1. Severe sepsis. Improved 2. Bacteremia due to group A beta strep. 3. Leukocytosis secondary to sepsis. Improved 4. Source of sepsis - diabetic foot infection due to group A strep. 5. Acute renal failure. 6. Charcot's joint and soft tissue infection of both feet. RECOMMENDATIONS: 1. Continue Cefazolin IV until February 27, 2018. 2. Continue to monitor white blood cell count. 3. Monitor clinical status. Sen Washington MD January 27, 2018 16:20
--- NOTE | 2018-01-27 18:09 | PD.WCN.NOT ---
Wound Consult Description: Left foot Communicated with: HANSA Goodman Recommendation: Please cleanse wounds to right foot with normal saline or wound cleanser and cover open wounds with Maxorb Extra AG and secure with 4x4's, ABD pads, and secure with rolled gauze and BERTRAM wrap. Change dressing every 3 days and PRN for saturation or dislodgement. Change VAC dressing to left foot as ordered. Reinforce wound VAC dressing to left foot; if unable to obtain a seal after 2 hours the black granufoam must be removed and a moist to dry dressing applied. Contact Podiatry if this occurs. Additional Information: Patient seen on [facility] for wound VAC change to left foot and dressing change to right foot using Maxorb Extra AG, covered with gauze and ABD pad that was secured with BERTRAM wrap. Blue heel raiser boots were obtained and placed on patient to float heels off mattress surface after dressing changes were completed. Neg Pressure Wound Therapy Wound Location Wound Location: Left foot Wound Description Length: 4.2cm Width: 10.8cm Depth: ~1cm Wound bed appearance: Red vascular moist granulation tissue Periwound appearance: Other (Partial thickness skin loss that was cleansed with wound cleanser and Maxorb Extra AG applied to wound bed touching the VAC'd area from 7 o'clock to 11 o'clock.) Settings Suction: 125 mmHg, Continuous Intensity: Low Foam type: Black Number of pieces: 1 Additonal Information Wound VAC dressing removed with one piece of black granufoam removed from wound bed. Wound bed was cleansed and periwound was protected using Cavilon skin prep and an Dolores to obtain seal. One piece of black granufoam was cut in half and then cut in the shape of the wound bed and applied over wound. One piece of foam was secured with VAC drape covering only the edges with the sensitrac pad placed over the center of the black foam. VAC machine was turned on and working properly with settings @125mmHg low continuous suction without leaks noted. Susana Swartz CRN January 27, 2018 18:08
[2018-01-27] MEDS: DOCUSATE SODIUM 50 MG/SENNA 8.6 MG TAB PO SCH (20:11)
[2018-01-27] MEDS: MUPIROCIN 2% OINT 1 APPLIC/GM SYR EACH NARE SCH (20:13)
[2018-01-27] MEDS: SODIUM CHLORIDE 0.9% FLUSH 10 ML FLUSH IV FLUSH SCH (21:06)
--- NOTE | 2018-01-27 22:40 | RADRPT ---
EXAM DATE/TIME: 01/27/2018 21:59 [facility] COMPARISON: No previous studies available for comparison. INDICATIONS : Increased BUN/creatinine. MEDICAL HISTORY : Hernia, umbilical. Syncope. Neuropathy. Diabetes. HTN. GERD. Liver disease. Schizophrenia. PTSD. Anxiety. Measles. MRSA. ESBL. VRE. SURGICAL HISTORY : Blood transfusions. ENCOUNTER: Initial ACUITY: 1 day PAIN SCORE: 5/10 LOCATION: Bilateral flank MEASUREMENTS: RIGHT KIDNEY: 12.9 x 5.8 x 5.3 cm LEFT KIDNEY: 11.5 x 4.8 x 5.7 cm FINDINGS: RIGHT KIDNEY: Diffusely increased cortical echogenicity. No evidence of hydronephrosis or mass. No stones are seen. LEFT KIDNEY: Diffusely increased cortical echogenicity. No evidence of hydronephrosis or mass. No stones. BLADDER: Within normal limits given the degree of distension. CONCLUSION: Increased renal cortical echogenicity bilaterally. No hydronephrosis. Sylvester Estrella MD on January 27, 2018 at 22:36 Board Certified Radiologist. This report was verified electronically.
[2018-01-28] VITALS (7 sets, daily range): BP systolic 91–156; BP diastolic 52–74; PULSE 73–102; RESP 16–19; TEMP 97.3–98.2; O2SAT 94–98
[2018-01-28] MEDS: ceFAZolin 2 GM PREMIX 50 ML IV SCH ×2 (03:10→14:20)
[2018-01-28] MEDS: MORPHINE SULFATE 4 MG/ML INJ IV PUSH PRN ×5 (03:10→20:42)
[2018-01-28] MEDS: CHLORHEXIDINE GLUCONATE 2 % 1 PACK (2 CLOTHS) TOP SCH (03:10)
[2018-01-28 07:04] LABS: HEMATOCRIT 23.1 % (39.0-51.0); HEMOGLOBIN 7.7 GM/DL (13.0-17.0)
[2018-01-28 07:49] LABS: ALBUMIN 1.2 GM/DL (3.4-5.0); BICARBONATE 22.6 MEQ/L (21.0-32.0); CALCIUM 8.3 MG/DL (8.5-10.1); CREATININE 2.93 MG/DL (0.60-1.30); PHOSPHORUS 3.7 MG/DL (2.5-4.9)
[2018-01-28] MEDS: INSULIN ASPART SUPPLEMENTAL SCALE SQ SCH ×4 (08:00→21:00)
[2018-01-28] MEDS: ASPIRIN 325 MG TAB PO SCH (08:20)
[2018-01-28] MEDS: PANTOPRAZOLE SOD 40 MG DELAYED RELEASE TAB PO SCH (08:20)
[2018-01-28] MEDS: SODIUM CHLORIDE 0.9% FLUSH 10 ML FLUSH IV FLUSH SCH ×2 (09:00→20:41)
[2018-01-28] MEDS: PATIENT OWN MEDICATION PO SCH (09:00)
[2018-01-28] MEDS: INSULIN DETEMIR 100 UNITS/ML VIAL SQ SCH (09:00)
[2018-01-28] MEDS: POLYETHYLENE GLYCOL 17 GM PKG PO SCH (09:00)
[2018-01-28] MEDS: amLODIPine BESYLATE 5 MG TAB PO SCH (09:00)
[2018-01-28] MEDS: MUPIROCIN 2% OINT 1 APPLIC/GM SYR EACH NARE SCH ×2 (09:00→20:41)
[2018-01-28] MEDS: DOCUSATE SODIUM 50 MG/SENNA 8.6 MG TAB PO SCH ×2 (09:00→20:41)
[2018-01-28] MEDS: LACTULOSE SYRUP 20 GM/30 ML CUP PO SCH (09:00)
--- NOTE | 2018-01-28 10:07 | HHI.PR ---
Subjective Remarks in no acute distress. pain is controlled. no fever. no new complaints. Objective Vitals Vital Signs Date Time Temp Pulse Resp B/P (MAP) Pulse Ox O2 Delivery O2 Flow Rate FiO2 01/28/18 08:00 97.9 82 17 135/63 (87) 95 01/28/18 03:16 98.0 87 16 139/61 (87) 97 01/28/18 00:00 98.2 102 19 156/69 (98) 98 01/27/18 23:59 81 01/27/18 20:01 98.3 84 18 152/67 (95) 96 01/27/18 20:00 82 01/27/18 16:00 98.5 77 18 152/68 (96) 97 01/27/18 12:00 74 01/27/18 12:00 98.4 76 18 141/65 (90) 97 01/27/18 10:20 97 Nasal Cannula 2.00 I/O 01/27/18 01/27/18 01/27/18 01/28/18 01/28/18 01/28/18 07:00 15:00 23:00 07:00 15:00 23:00 Output Total 600 ml 800 ml 500 ml Balance -600 ml -800 ml -500 ml Output Urine Total 600 ml 800 ml 500 ml # Bowel Movements 2 3 Result Diagram: 01/28/1831 01/28/1831 Imaging Last Impressions Renal Ultrasound 01/27/18 0000 Signed Impressions: Service Date/Time: Saturday, January 27, 2018 21:59 - CONCLUSION: Increased renal cortical echogenicity bilaterally. No hydronephrosis. Sylvester Estrella MD Chest X-Ray 01/21/18 0600 Signed Impressions: Service Date/Time: Sunday, January 21, 2018 03:50 - CONCLUSION: Normal examination. Right IJ Vas-Cath in good position Duncan Zaldivar MD Foot MRI 01/19/18 0000 Signed Impressions: Service Date/Time: Friday, January 19, 2018 12:36 - CONCLUSION: 1. 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 These findings are very similar to the prior study 2016. 2. Plantar cutaneous defect and extensive midfoot plantar superficial soft tissue edema extending into the plantar musculature. These findings are suspicious for infection in the proper clinical setting. Elongated adjacent more medial and distal plantar soft tissue ovoid fluid collection may represent a pseudo-bursa or abscess. More ill-defined edema is seen extending laterally to the base of the fifth metatarsal with likely early osteomyelitis at this location. This lateral extension is a new finding when compared to the prior study of 2016. 3. Posterior superficial soft tissue edema the heel with mild adjacent bony edema is very similar to the prior study with no definitive osteomyelitis. Ganga Luna MD Abdomen X-Ray 01/19/18 Signed Impressions: Service Date/Time: Friday, January 19, 2018 10:57 - CONCLUSION: Nonspecific bowel gas pattern. Mildly distended air-filled stomach. Ganga Luna MD Liver Ultrasound 01/16/18 Signed Impressions: Service Date/Time: January 16:59 - CONCLUSION: 1. Hepatomegaly and diffuse increased hepatic echogenicity without intrahepatic ductal dilatation or focal mass. Findings are most consistent with hepatic steatosis or medical liver disease. 2. Trace ascites. 3. Cholelithiasis with gallbladder wall prominence and trace pericholecystic fluid. These findings may be seen in the setting of chronic liver disease or ascites and significantly limit ultrasound evaluation for acute cholecystitis. If there is significant clinical concern regarding acute cholecystitis, HIDA scan may be performed to evaluate for cystic duct patency. Nam Tinajero MD Head CT 01/14/182000 Signed Impressions: Service Date/Time: Sunday, January 14, 2018 20:22 - CONCLUSION: Normal examination for a patient of this age. Marcio Hansen MD Lower Extremity CT 01/14/18 Signed Impressions: Service Date/Time: Sunday, January 14, 2018 23:38 - CONCLUSION: 1. CT findings characteristic of a severe Charcot foot in the mid and hindfoot with collapse of the plantar arch. Osteoarthritic changes of the first MTP joint 2. However, findings all appear to be chronic with no acute osseous injury Marquis Mcdonald MD Abdomen/Pelvis CT 01/14/18 Signed Impressions: Service Date/Time: Sunday, January 14, 2018 23:35 - CONCLUSION: 1. CT findings suggest volume overload or low oncotic pressures with some flank and mesenteric edema, gallbladder wall thickening and some free fluid in the pelvis. Heart size is somewhat prominent. 2. Bilateral symmetric gynecomastia. Nonspecific findings but can be associated with some chronic disease processes or medications. 3. Left periaortic borderline prominent lymph nodes. Again, nonspecific but may be reactive associated with the aforementioned mesenteric edema. 4. 5.7 cm periumbilical fatty hernia. There is now some fluid along the periphery of the hernia. This could be related to the generalized edema described above although fatty infarction could have a similar radiographic presentation. Please correlate with clinical symptomatology Marquis Mcdonald MD Objective Remarks GENERAL: This is a well-nourished, well-developed patient, in no apparent distress. CARDIOVASCULAR: Regular rate and regular rhythm without murmurs, gallops, or rubs. RESPIRATORY: Clear to auscultation. Breath sounds equal bilaterally. No wheezes , rales, or rhonchi. GASTROINTESTINAL: Abdomen soft, non-tender, nondistended. Normal, active bowel sounds MUSCULOSKELETAL: both feet covered with clean dressing/ wound vac in place. NEURO: Alert & Oriented x4 to person, place, time, situation. Moves all ext x4 Procedures Vas-cath placement/ debridement of both feet/ wound vac placement. Medications and IVs Inpatient Medications Acetaminophen (Tylenol) 650 mg UNSCH PRN PO for headach, pain, temp > 101F; Start 01/17/18 at 17:00 Albumin Human 100 ml @ 60 mls/hr UNSCH PRN IV WITH DIALYSIS; Start 01/17/18 at 17:00 Albuterol Sulfate (Albuterol Neb) 2.5 mg Q2HR NEB PRN INH SOB/WHEEZING; Start 01/19/18 at 09:15 Albuterol/ Ipratropium (Duoneb Neb) 1 ampule Q2HR NEB PRN INH WHEEZING; Start 01/14/18 at 22:45; Stop 01/19/18 at 09:10; Status DC Amlodipine Besylate (Norvasc) 5 mg DAILY PO ; Start 01/25/18 at 09:00 Aspirin (Aspirin) 325 mg DAILY PO Last administered on 01/28/18at 08:20; Start 01/15/18 at 09:00 Bisacodyl (Dulcolax Supp) 10 mg DAILY PRN RECTAL SEVERE CONSITIPATION; Start at 09:15 Calcium Gluconate 2 gm/Dextrose 120 ml @ 120 mls/hr ONCE ONCE IV Last administered on 01/18/18at 12:06; Start 01/18/18 at 11:15; Stop 01/18/18 at 12:14; Status DC Cefazolin Sodium/ Dextrose 50 ml @ 100 mls/hr Q12H IV Last administered on at 03:10; Start 01/16/18 at 15:00 Chlorhexidine Gluconate (Chlorhexidine 2% Cloth) 3 pack UNSCH PRN [facility]; Start 01/14/18 at 22:45 Clindamycin/ Sodium Chloride 50 ml @ 100 mls/hr Q6H IV Last administered on 01/15/18at 15:45; Start 01/15/18 at 04:00; Stop 01/15/18 at 22:46; Status DC Clonidine (Catapres) 0.1 mg UNSCH PRN PO for BP > 180/100 X 2 readings; Start 01/17/18 at 17:00 Daptomycin 800 mg/ Sodium Chloride 100 ml @ 200 mls/hr Q48H IV Last administered on 01/16/18at 00:30; Start 01/16/18 at 00:00; Stop 01/16/18 at 14:36; Status DC Dextrose 1,000 ml @ 30 mls/hr Q24H IV Last administered on 01/22/18at 10:30; Start 01/22/18 at 10:15; Stop 01/24/18 at 07:54; Status DC Dextrose (D50w (Vial) Inj) 50 ml UNSCH PRN IV PUSH HYPOGLYCEMIA-SEE COMMENTS Last administered on 01/22/18at 10:01; Start 01/19/18 at 09:15 Diphenhydramine HCl (Benadryl) 25 mg UNSCH PRN PO for hives/itching/anaphylaxis ; Start 01/17/18 at 17:00 Famotidine (Pepcid Inj) 10 mg Q12HR IV PUSH Last administered on 01/19/18at 07:47 ; Start 01/15/18 at 21:00; Stop 01/19/18 at 09:01; Status DC Fentanyl Citrate (fentaNYL INJ) 100 mcg ONCE ONCE IV PUSH Last administered on 01/17/18at 16:50; Start 01/17/18 at 16:45; Stop 01/17/18 at 16:59; Status DC Flumazenil (Romazicon Inj) 0.2 mg Q1M PRN IV PUSH SEE LABEL COMMENTS; Start 01/16/18 at 01:00 Gelatin (Gelfoam 100 Top) 1 foam ONCE ONCE TOPICAL Last administered on at 04:34; Start 01/21/18 at 04:15; Stop 01/21/18 at 04:16; Status DC Gelatin (Gelfoam 12 Mm/7 Mm Top) 1 foam UNSCH PRN TOP SEE LABEL COMMENTS; Start 01/17/18 at 17:00 Gentamicin Sulfate (Gentamicin Inj) 20 mg UNSCH PRN OTHER WITH DIALYSIS Last administered on 01/20/18at 11:15; Start 01/17/18 at 17:00 Glucagon (Glucagon Inj) 1 mg UNSCH PRN OTHER HYPOGLYCEMIA-SEE COMMENTS; Start 01/19/18 at 09:15 Glycerin (Glycerin Adult Supp) 2 gm ONCE ONCE RECTAL Last administered on at 09:49; Start 01/19/18 at 09:15; Stop 01/19/18 at 09:21; Status DC Heparin Sodium (Porcine) (Heparin Inj) 5,000 units Q8H SQ ; Start 01/19/18 at 10: 00; Stop 01/19/18 at 10:00; Status DC Hydralazine HCl (Apresoline Inj) 10 mg Q1H PRN IV PUSH SBP>160, DBP>90 Last administered on 01/20/18at 21:35; Start 01/19/18 at 09:45 Hydrocortisone Sodium Succinate (SoluCORTEF INJ) 50 mg DAILY IV PUSH Last administered on 01/20/18at 09:30; Start 01/19/18 at 09:00; Stop 01/21/18 at 08:59; Status DC Hydroxyzine Pamoate (Vistaril) 50 mg BID PO Last administered on 01/27/18at 21: 06; Start 01/19/18 at 10:00 Insulin Aspart (NovoLOG SUPPLEMENTAL SCALE) 1 ACHS SLIDING SCALE SQ ; Start 01/19/18 at 12:00; Stop 01/19/18 at 12:00; Status DC Insulin Detemir (Levemir Inj) 10 units ONCE ONCE SQ Last administered on at 10:07; Start 01/19/18 at 10:00; Stop 01/19/18 at 10:01; Status DC Insulin Human Regular 100 units/ Sodium Chloride 100 ml @ 0.5 mls/hr TITRATE PRN IV Blood Glucose Control Last administered on 01/19/18 09:51; Start 01/17/18 at 17:30; Stop 01/19/18 at 09:22; Status DC Lactulose (Lactulose Liq) 30 ml DAILY PO Last administered on 01/24/18at 08:05; Start 01/20/18 at 09:00 Lorazepam (Ativan Inj) 1 mg Q4H PRN IV PUSH Agitation Last administered on at 01:04; Start 01/19/18 at 09:15 Lorazepam (Ativan) 2 mg Q2H PRN PO CIWA 11-14; Start 01/16/18 at 01:00; Status Future Hold Mannitol (Mannitol Inj) 12.5 gm UNSCH PRN IV WITH DIALYSIS; Start 01/17/18 at 17 :00 Midazolam HCl (Versed Inj) 2.5 mg ONCE ONCE IV PUSH Last administered on at 16:50; Start 01/17/18 at 16:45; Stop 01/17/18 at 17:00; Status DC Miscellaneous Information ([facility] [place] previous DKA orders) 1 ONCE ONCE .XX Last administered on 01/19/18at 10:07; Start 01/19/18 at 09:15; Stop 01/19/18 at 09:19; Status DC Miscellaneous Information ([facility] [place]ulin 2 hrs post Levemir) 1 ONCE ONCE .XX Last administered on 01/19/18at 10:08; Start 01/19/18 at 09:15; Stop 01/19/18 at 09:18; Status DC Miscellaneous Information ([facility] [place] Nursing Information) 1 Q361D XX ; Start 01/14/18 at 22:45 Miscellaneous Information ([facility] [place] Post-op Orders (for Pharmacy)) STAT ONCE XX ; Start 01/22/18 at 21:15; Stop 01/22/18 at 21:17; Status DC Morphine Sulfate (Morphine Inj) 1 mg Q4H PRN IV PUSH pain 6-10 Last administered on 01/28/18at 08:17; Start 01/19/18 at 10:00 Mupirocin (Bactroban Nasal 2% Oint) Taper BID EACH NARE Last administered on at 21:15; Start 01/19/18 at 21:00; Stop 01/15/19 at 20:59 Naloxone HCl (Narcan Inj) 0.4 mg UNSCH PRN IV PUSH SEE LABEL COMMENTS; Start at 21:15 Nitroglycerin (Nitroglycerin 2% Oint) 2 inch Q6H PRN TOPICAL SBP>160, DBP>90; Start 01/19/18 at 09:45 Nitroglycerin (Nitrostat Sl) 0.4 mg UNSCH PRN SL CHEST PAIN; Start 01/17/18 at 17:00 Ondansetron HCl (Zofran Inj) 4 mg Q6H PRN IV PUSH NAUSEA OR VOMITING; Start 01/19/18 at 09:15 Pantoprazole Sodium (Protonix) 40 mg DAILY PO Last administered on 01/28/18at 08 :20; Start 01/20/18 at 09:00 Patient Own Medication PT OWN MED: THIORIDAZINE DOSE 10... DAILY PO Last administered on 01/26/18at 07:58; Start 01/20/18 at 09:00; Status Future hold Phytonadione (Mephyton Liq) 5 mg ONCE ONCE PO Last administered on 01/19/18at 10 :13; Start 01/19/18 at 10:15; Stop 01/19/18 at 10:16; Status DC Piperacillin Sod/ Tazobactam Sod 50 ml @ 100 mls/hr Q8H IV Last administered on 01/19/18at 07:46; Start 01/17/18 at 17:00; Stop 01/19/18 at 09:29; Status DC Polyethylene Glycol (Miralax) 17 gm DAILY PO Last administered on 01/24/18at 08: 06; Start 01/20/18 at 09:00 Potassium Chloride (KCl) 20 meq ONCE ONCE PO Last administered on 01/21/18at 11: 48; Start 01/21/18 at 09:45; Stop 01/21/18 at 10:08; Status DC Senna/Docusate Sodium (Lizz-Colace) 1 tab BID PO Last administered on at 08:06; Start 01/19/18 at 21:00 Sodium Bicarbonate 150 meq/Dextrose 1,000 ml @ 100 mls/hr Q10H IV Last administered on 01/17/18at 23:17; Start 01/16/18 at 16:15; Stop 01/18/18 at 11:01; Status DC Sodium Bicarbonate (Sodium Bicarbonate 8.4% Inj) 50 meq ONCE ONCE IV PUSH Last administered on 01/16/18at 17:59; Start 01/16/18 at 16:15; Stop 01/16/18 at 16: 21; Status DC Sodium Chloride 250 ml @ 15 mls/hr ONCE ONCE IV Last administered on at 06:45; Start 01/23/18 at 06:45; Stop 01/23/18 at 23:24; Status DC Sodium Chloride (NS Flush) 2 ml BID IV FLUSH Last administered on 01/27/18at 21: 06; Start 01/19/18 at 21:00 Ziprasidone (Geodon Inj) 10 mg Q12H PRN IM AGITATION, breakthrough; Start at 09:15; Stop 01/22/18 at 09:14; Status DC A/P Assessment and Plan A/P Septic shock -resolved Group A strep septicemia Diabetic foot infection and abscess status post drainage and debridement on 01/20 s/p debridement of both feet along with wound vac placement- podiatry following. wound care consulted. wound vac management per podiatry/ wound care. On cefazolin till - ID following. Pertinent microbiology 01/14 -blood cultures 2 beta strep group A 01/15 and 01/16 -wound -beta strep group A 01/16-01/17 -blood cultures 2 -no growth 01/17 -UA -no growth Metabolic encephalopathy secondary to sepsis -resolved. Schizophrenia Posttraumatic stress disorder resumed home meds. History of hypertension resumed Amlodipine continue to monitor BP and adjust the regimen as needed. Nonoliguric BISHOP Hypokalemia 01/16 Lasix 40 mg IV 1 dose 01/17 vascular cath placement had HD on 01/18 and 01/20- HD on hold for now per nephrology. continue to monitor renal function. Nephrology following- Avoid nephrotoxic drugs Hepatitis C antibody positive. Genotype not detected and viral load pending Elevated LFTs- Shock Liver Hepatomegaly Cholelithiasis Monitor CMP 01/16 ultrasound of the liver- Trace ascites. Findings most consistent with hepatic steatosis or liver disease. Cholelithiasis with gallbladder wall prominence but trace pericholecystic fluid Hepatitis C IgG antibody positive GI consulted appreciate recommendations; f/u with GI as outpatient. Noted VICKIE positive. Normocytic anemia - Coagulopathy - Transfused 2 units PRBC on 01/21 and 01/23 Transfused 2 units FFP on 01/21 as well continue to monitor H/H continue PT. Diabetes mellitus resumed diet - continue levemir and continue with accu-check with SSI Glipizide 10 mg p.o. twice daily home medication held Prophylaxis: GI Prophylaxis Pantoprazole DVT Prophylaxis -- SCDs Teds and SCDs. Heparin SQ on hold in the setting of elevated INR. Discharge Planning awaiting renal recovery/ dc planning when cleared by ID and nephrology. d/w the patient and now he's considering rehab. case management consulted. Joshua Black MD January 28, 2018 10:07
--- NOTE | 2018-01-28 11:01 | HHI.NPPN ---
Subjective Renal Failure: Acute Interval History His renal function has again declined. Non oliguric. No complaints. Renal US reviewed, normal. (Laura Quesada) Review of Systems General Constitutional: Fatigue (Laura Quesada) Skin Skin Remarks wounds to bilateral feet. (Laura Quesada) Objective Data Data Vital Signs Date Time Temp Pulse Resp B/P (MAP) Pulse Ox O2 Delivery O2 Flow Rate FiO2 01/28/18 08:00 97.9 82 17 135/63 (87) 95 01/28/18 03:16 98.0 87 16 139/61 (87) 97 01/28/18 00:00 98.2 102 19 156/69 (98) 98 01/27/18 23:59 81 01/27/18 20:01 98.3 84 18 152/67 (95) 96 01/27/18 20:00 82 01/27/18 16:00 98.5 77 18 152/68 (96) 97 01/27/18 12:00 74 01/27/18 12:00 98.4 76 18 141/65 (90) 97 (Laura Quesada) -: 01/28/18 0631 01/28/18 0631 Imaging Last 72 hours Impressions Renal Ultrasound 01/27/18 0000 Signed Impressions: Service Date/Time: Saturday, January 27, 2018 21:59 - CONCLUSION: Increased renal cortical echogenicity bilaterally. No hydronephrosis. Sylvester Estrella MD Tubes & Lines: Vas-Cath Tubes & Lines Comment wound vac bilateral feet (Laura Quesada) Physical Exam General Appearance: No Acute Distress, Comfortable Appearance Remarks disheveled, appears older than stated age (Laura Quesada) Ears & Nose Ears & Nose Exam: Tympanic Membranes Normal (Laura Quesada) Throat Throat Exam: Oral Mucosa [place] & Moist (Laura Quesada) Pulmonary Resp Exam: Breath Sounds Equal, No Distress (Laura Quesada) Cardiology CV Exam: Normal Sinus Rhythm, Good Perfusion (Laura Quesada) Gastrointestinal/Abdomen GI Exam: Soft, Non-Tender, Bowel Sounds Present (Laura Quesada) Musculoskeletal MS Exam: Joints Intact, Normal Tone, Unable to Ambulate (Laura Quesada) Integumentary Skin Exam: Warm, Dry Skin Remarks wound on bilateral feet/heals , dressings in place Wound vac in place (Laura Quesada) Extremeties Extremities Exam: Trace Edema (Laura Quesada) Neurologic Neuro Exam: Alert, Awake, Speech Clear, Moving All Extremities (Laura Quesada) Psychiatric Psych Exam: Appropriate Responses (Laura Quesada) Assessment/Plan Discussed Condition With: Patient Assessment Summary: BISHOP/Acute Renal Failure Problem List: (1) Acute worsening of stage 3 chronic kidney disease ICD Codes: N18.3 - Chronic kidney disease, stage 3 (moderate) Plan: Renal US showing increased echogenicity, suggesting underlying CKD. Last year Creatinine was 1.7. BISHOP initially due to ATN from sepsis. He required 2 dialysis sessions, on 01/18 and 01/20 Since then his renal function has not improved as we would expect, in fact it is worsening He is non oliguric US not suggesting obstruction Bladder scan (post void) ordered He may be suffering from allergic interstitial nephritis due to antibiotic use; also newer research has documented cases of AIN and BISHOP due to PPI use. Worsening could also be due to persistent infection. Stop all non essential medications. PO fluids encouraged Repeat labs daily There is no indication for dialysis. we will remove Vascath today. (2) Sepsis ICD Codes: A41.9 - Sepsis, unspecified organism Status: Resolved Plan: ID following. On Cefazolin, Source is likely infected leg wounds. 4/4 blood cultures positive, wound culture also positive for Group B strep Stop Date February 27 per ID. (3) Anemia ICD Codes: D64.9 - Anemia, unspecified Status: Chronic Plan: Hb is low but slightly improved; he was transfused (again) last week after significant bleeding from foot wounds s/p bedside I&D No significant bleeding at this time. continue to monitor. Iron profile ordered for AM. (4) Hyponatremia ICD Codes: E87.1 - Hypo-osmolality and hyponatremia Status: Acute Plan: Stable Monitor H xof psychogenic polydipsia. (Laura Quesada) Plan patient was seen and examined. Agree with above assessment and plan. Renal function continues to get worse. Replace Chirinos and monitor. (Shaun Mcmahon MD) Problem Qualifiers (1) Sepsis: Qualified Codes: A41.9 - Sepsis, unspecified organism Laura Quesada January 28, 2018 11:00 Shaun Mcmahon MD January 28, 2018 11:21
[2018-01-29] VITALS (12 sets, daily range): BP systolic 135–177; BP diastolic 65–76; PULSE 71–132; RESP 16–20; TEMP 97.7–98.1; O2SAT 96–98
[2018-01-29] MEDS: MORPHINE SULFATE 4 MG/ML INJ IV PUSH PRN ×3 (00:40→10:15)
[2018-01-29] MEDS: CHLORHEXIDINE GLUCONATE 2 % 1 PACK (2 CLOTHS) TOP SCH (04:00)
[2018-01-29] MEDS: ceFAZolin 2 GM PREMIX 50 ML IV SCH ×2 (04:48→15:41)
[2018-01-29] MEDS: INSULIN ASPART SUPPLEMENTAL SCALE SQ SCH ×4 (08:00→20:40)
[2018-01-29] MEDS: POLYETHYLENE GLYCOL 17 GM PKG PO SCH (09:00)
[2018-01-29] MEDS: INSULIN DETEMIR 100 UNITS/ML VIAL SQ SCH (09:00)
[2018-01-29] MEDS: MUPIROCIN 2% OINT 1 APPLIC/GM SYR EACH NARE SCH ×2 (09:00→20:38)
[2018-01-29] MEDS: DOCUSATE SODIUM 50 MG/SENNA 8.6 MG TAB PO SCH ×2 (09:00→20:39)
[2018-01-29] MEDS: amLODIPine BESYLATE 5 MG TAB PO SCH (09:00)
[2018-01-29] MEDS: LACTULOSE SYRUP 20 GM/30 ML CUP PO SCH (09:00)
[2018-01-29] MEDS: PATIENT OWN MEDICATION PO SCH (09:00)
[2018-01-29 09:14] LABS: ALBUMIN 1.1 GM/DL (3.4-5.0); BICARBONATE 22.3 MEQ/L (21.0-32.0); BLOOD UREA NITROGEN 35 MG/DL (7-18); CALCIUM 8.8 MG/DL (8.5-10.1); CHLORIDE 109 MEQ/L (98-107); CREATININE 3.03 MG/DL (0.60-1.30); GLOMERULAR FILTRATION RATE 22 ML/MIN (>89); GLUCOSE,RANDOM 67 MG/DL (74-106); IRON (FE) 43 MCG/DL (65-175); PHOSPHORUS 4.3 MG/DL (2.5-4.9); SODIUM (NA) 138 MEQ/L (136-145); TOTAL IRON BINDING CAPACITY 105 MCG/DL (250-450)
[2018-01-29] MEDS: ASPIRIN 325 MG TAB PO SCH (10:14)
[2018-01-29] MEDS: PANTOPRAZOLE SOD 40 MG DELAYED RELEASE TAB PO SCH (10:14)
[2018-01-29] MEDS: SODIUM CHLORIDE 0.9% FLUSH 10 ML FLUSH IV FLUSH SCH ×2 (10:15→20:38)
[2018-01-29] MEDS ORDERED: MORPHINE SULFATE 2 MG/ML SYRINGE IV PUSH PRN (12:00)
[2018-01-29] MEDS ORDERED: ACETAMINOPHEN 325 MG TAB PO PRN (12:00)
[2018-01-29] MEDS ORDERED: NALOXONE HCL 0.4 MG/ML AMP IV PUSH PRN (12:00)
--- NOTE | 2018-01-29 12:00 | HHI.PR ---
Subjective Remarks Reports morphine is doing well with controlling pain and open to try some oral pain medication due to positioning for discharge planning in the next few days. Objective Vitals Vital Signs Date Time Temp Pulse Resp B/P (MAP) Pulse Ox O2 Delivery O2 Flow Rate FiO2 01/29/18 11:10 97 Nasal Cannula 2.00 01/29/18 10:00 81 01/29/18 07:40 97.9 78 20 135/65 (88) 96 01/29/18 04:00 98.1 83 19 146/70 (95) 96 01/29/18 00:00 97.9 83 18 162/71 (101) 98 01/28/18 23:00 83 01/28/18 20:00 97.8 89 18 151/67 (95) 96 01/28/18 16:00 97.3 73 17 155/74 (101) 97 01/28/18 12:00 91 01/28/18 12:00 97.9 88 17 91/52 (65) 94 I/O 01/28/18 01/28/18 01/28/18 01/29/18 01/29/18 01/29/18 06:59 14:59 22:59 06:59 14:59 22:59 Output Total 500 ml 950 ml 600 ml Balance -500 ml -950 ml -600 ml Output Urine Total 500 ml 950 ml 600 ml # Bowel Movements 3 2 Result Diagram: 01/28/18 0631 01/29/18 0739 Other Results Item Value Date Time Bedside Blood Glucose 80 mg/dl 01/29/18 0800 Bedside Blood Glucose 126 mg/dl 01/28/18 2100 Bedside Blood Glucose 111 mg/dl 01/28/18 1650 Objective Remarks GENERAL: This is a well-nourished, well-developed patient, in no apparent distress. CARDIOVASCULAR: Regular rate and rhythm RESPIRATORY: Clear to auscultation. Breath sounds equal bilaterally. No wheezes , rales, or rhonchi. GASTROINTESTINAL: Abdomen soft, non-tender, nondistended. Normal active bowel sounds NEURO: Alert & Oriented x4 to person, place, time, situation. Moves all ext x4 Procedures Vas-cath placement/ debridement of both feet/ wound vac placement. A/P Assessment and Plan Septic shock due to Group A strep septicemia from diabetic foot infection - resolved Diabetic foot infection and abscess status post drainage and debridement on 01/20 s/p debridement of both feet along with wound vac placement- podiatry following. wound care consulted. wound vac management per podiatry/ wound care. On cefazolin till - ID following. Pertinent microbiology 01/14 -blood cultures 2 beta strep group A 01/15 and 01/16 -wound -beta strep group A 01/16-01/17 -blood cultures 2 -no growth 01/17 -UA -no growth Metabolic encephalopathy secondary to sepsis -resolved. Schizophrenia Posttraumatic stress disorder resumed home meds. History of hypertension, essential and chronic resumed Amlodipine continue to monitor BP and adjust the regimen as needed. Nonoliguric BISHOP -worsening creatinine today, per renal no indication for hemodialysis at this time and Vas-Cath will be discontinued. Hypokalemia -resolved and now with mild hyperkalemic will continue to monitor 01/16 Lasix 40 mg IV 1 dose 01/17 vascular cath placement now removed had HD on 01/18 and 01/20- HD on hold for now per nephrology. continue to monitor renal function. Nephrology following- and Avoid nephrotoxic drugs Hepatitis C antibody positive. Genotype not detected and viral load pending Elevated LFTs- Shock Liver Hepatomegaly Cholelithiasis Monitor CMP 01/16 ultrasound of the liver- Trace ascites. Findings most consistent with hepatic steatosis or liver disease. Cholelithiasis with gallbladder wall prominence but trace pericholecystic fluid Hepatitis C IgG antibody positive GI consulted appreciate recommendations; f/u with GI as outpatient. Noted VICKIE positive. Normocytic anemia - Coagulopathy - Transfused 2 units PRBC on 01/21 and 01/23 Transfused 2 units FFP on 01/21 as well continue to monitor H/H continue PT. Diabetes mellitus type 2 resumed diet - continue levemir and continue with accu-check with SSI Glipizide 10 mg p.o. twice daily home medication held GI Prophylaxis Pantoprazole DVT Prophylaxis -- SCDs Teds and SCDs. Heparin SQ on hold in the setting of elevated INR. Cece Brock MD January 29, 2018 12:00
--- NOTE | 2018-01-29 12:12 | HHI.NPPN ---
Subjective General Problems: Edema Renal Failure: Acute Interval History His renal function is declining. Remains non oliguric. No specific complaints. (Laura Quesada) Review of Systems General Constitutional: Fatigue (Laura Quesada) Skin Skin Remarks wounds to bilateral feet. (Laura Quesada) Objective Data Data Vital Signs Date Time Temp Pulse Resp B/P (MAP) Pulse Ox O2 Delivery O2 Flow Rate FiO2 01/29/18 11:10 97 Nasal Cannula 2.00 01/29/18 10:00 81 01/29/18 07:40 97.9 78 20 135/65 (88) 96 01/29/18 04:00 98.1 83 19 146/70 (95) 96 01/29/18 00:00 97.9 83 18 162/71 (101) 98 01/28/18 23:00 83 01/28/18 20:00 97.8 89 18 151/67 (95) 96 01/28/18 16:00 97.3 73 17 155/74 (101) 97 (Laura Quesada) -: 01/28/18 0631 01/29/18 0739 Imaging Last 72 hours Impressions Renal Ultrasound 01/27/18 0000 Signed Impressions: Service Date/Time: Saturday, January 27, 2018 21:59 - CONCLUSION: Increased renal cortical echogenicity bilaterally. No hydronephrosis. Sylvester Estrella MD Tubes & Lines: Vas-Cath Tubes & Lines Comment wound vac bilateral feet (Laura Quesada) Physical Exam General Appearance: No Acute Distress, Comfortable Appearance Remarks disheveled, appears older than stated age (Laura Quesada) Ears & Nose Ears & Nose Exam: Tympanic Membranes Normal (Laura Quesada) Throat Throat Exam: Oral Mucosa [place] & Moist (Laura Quesada) Pulmonary Resp Exam: Breath Sounds Equal, No Distress (Laura Quesada) Cardiology CV Exam: Normal Sinus Rhythm, Good Perfusion (Laura Quesada) Gastrointestinal/Abdomen GI Exam: Soft, Non-Tender, Bowel Sounds Present (Laura Quesada) Musculoskeletal MS Exam: Joints Intact, Normal Tone, Unable to Ambulate (Laura Quesada) Integumentary Skin Exam: Warm, Dry, Tenting Skin Remarks wound on bilateral feet/heals , dressings in place Wound vac in place (Laura Quesada) Extremeties Extremities Exam: Trace Edema (Laura Quesada) Neurologic Neuro Exam: Alert, Awake, Speech Clear, Moving All Extremities (Laura Quesada) Psychiatric Psych Exam: Appropriate Responses (Laura Quesada) Assessment/Plan Discussed Condition With: Patient Assessment Summary: BISHOP/Acute Renal Failure Problem List: (1) Acute worsening of stage 3 chronic kidney disease ICD Codes: N18.3 - Chronic kidney disease, stage 3 (moderate) Plan: Renal US suggesting underlying CKD. Last year Creatinine was 1.7. BISHOP initially due to ATN from sepsis. He required 2 dialysis sessions, on 01/18 and 01/20. Has some initial improvement in renal function. Since then his renal function has been declining. Bladder scan not suggesting urinary retention. He refused Chirinos reinsertion but is non oliguric. He may be suffering from allergic interstitial nephritis due to antibiotic use; Worsening could also be due to persistent infection. Stop all non essential medications. PO fluids encouraged Appears dry, given trial of IVF, 1/2 NS @ 75cc/hr Repeat labs daily Avoid nephrotoxic agents The vascath was not removed as requested. Due to decline in renal function, we have asked the nurse not to remove it today. Will keep it n for now. (2) Sepsis ICD Codes: A41.9 - Sepsis, unspecified organism Status: Resolved Plan: ID following. On Cefazolin, stop date 02/27. Source is likely infected leg wounds. 4/4 blood cultures positive, wound culture also positive for Group B strep Monitor clinically. (3) Anemia ICD Codes: D64.9 - Anemia, unspecified Status: Chronic Plan: Hemoglobin is low but improved; he has required multiple transfusions this admission. No significant bleeding at this time. continue to monitor. Start oral Iron, avoid Venofer given recent sepsis. (4) Hyponatremia ICD Codes: E87.1 - Hypo-osmolality and hyponatremia Status: Acute Plan: Stable Monitor H xof psychogenic polydipsia. (Laura Quesada) Plan patient was seen and examined. Agree with above assessment and plan. (Shaun Mcmahon MD) Problem Qualifiers (1) Sepsis: Qualified Codes: A41.9 - Sepsis, unspecified organism Laura Quesada January 29, 2018 12:12 Shaun Mcmahon MD January 30, 2018 08:14
[2018-01-29] MEDS: SODIUM CHLOR 0.45% 1000 ML INJ 1,000 ML IV SCH (13:39)
[2018-01-29] MEDS: ACETAMINOPHEN/HYDROcodone 325 MG/5 MG TAB PO PRN ×2 (16:37→20:37)
[2018-01-30] VITALS: BP 186/79; PULSE 79; PULSE 82; RESP 16; TEMP 97.6; O2SAT 96
[2018-01-30] MEDS: cloNIDine HCL 0.1 MG TAB PO PRN (00:14)
[2018-01-30] MEDS: ACETAMINOPHEN/HYDROcodone 325 MG/5 MG TAB PO PRN ×2 (00:14→05:45)
[2018-01-30] MEDS: SODIUM CHLOR 0.45% 1000 ML INJ 1,000 ML IV SCH ×2 (01:35→17:27)
[2018-01-30] MEDS: ceFAZolin 2 GM PREMIX 50 ML IV SCH ×2 (03:46→16:14)
[2018-01-30] MEDS: CHLORHEXIDINE GLUCONATE 2 % 1 PACK (2 CLOTHS) TOP SCH (04:00)
[2018-01-30 07:31] VITALS: BP 170/79; PULSE 72; RESP 18; TEMP 97.3; O2SAT 97
[2018-01-30 08:00] VITALS: BP 166/78; PULSE 68; RESP 20; TEMP 97.7; O2SAT 97
[2018-01-30] MEDS: INSULIN ASPART SUPPLEMENTAL SCALE SQ SCH ×2 (08:00→12:00)
--- NOTE | 2018-01-30 08:56 | HHI.NPPN ---
Subjective General Problems: Edema Renal Failure: Acute Interval History complains of generalized pain. Good urine output. On IVF. Review of Systems General Constitutional: Fatigue Skin Skin Remarks wounds to bilateral feet. Objective Data Data Vital Signs Date Time Temp Pulse Resp B/P (MAP) Pulse Ox O2 Delivery O2 Flow Rate FiO2 01/30/18 07:31 97.3 72 18 170/79 (109) 97 01/30/18 00:00 79 01/30/18 00:00 97.6 82 16 186/79 (114) 96 01/29/18 20:00 97.7 79 16 177/76 (109) 98 01/29/18 20:00 75 01/29/18 18:12 96 Nasal Cannula 2.00 01/29/18 16:42 71 01/29/18 15:40 97.8 73 20 159/74 (102) 96 01/29/18 12:15 81 01/29/18 12:08 97.7 77 20 145/67 (93) 96 01/29/18 11:10 97 Nasal Cannula 2.00 01/29/18 10:28 132 01/29/18 10:00 81 -: 01/28/18 0631 01/29/18 0739 Tubes & Lines: Vas-Cath Tubes & Lines Comment wound vac bilateral feet Physical Exam General Appearance: No Acute Distress, Comfortable Ears & Nose Ears & Nose Exam: Tympanic Membranes Normal Throat Throat Exam: Oral Mucosa [place] & Moist Pulmonary Resp Exam: Breath Sounds Equal, No Distress Cardiology CV Exam: Normal Sinus Rhythm, Good Perfusion Gastrointestinal/Abdomen GI Exam: Soft, Non-Tender, Bowel Sounds Present Musculoskeletal MS Exam: Joints Intact, Normal Tone, Unable to Ambulate Integumentary Skin Exam: Warm, Dry, Tenting Extremeties Extremities Exam: Trace Edema Neurologic Neuro Exam: Alert, Awake, Speech Clear, Moving All Extremities Neuro Remarks poorly responsive. Psychiatric Psych Exam: Appropriate Responses Assessment/Plan Discussed Condition With: Patient Assessment Summary: BISHOP/Acute Renal Failure Problem List: (1) Acute worsening of stage 3 chronic kidney disease ICD Codes: N18.3 - Chronic kidney disease, stage 3 (moderate) Plan: Renal US suggesting underlying CKD. Last year Creatinine was 1.7. BISHOP initially due to ATN from sepsis. He required 2 dialysis sessions, on 01/18 and 01/20. Has some initial improvement in renal function. Since then his renal function has been declining. Bladder scan not suggesting urinary retention. He refused Chirinos reinsertion but is non oliguric. He may be suffering from allergic interstitial nephritis due to antibiotic use; Worsening could also be due to persistent infection. Stop all non essential medications. PO fluids encouraged Appears dry, on IVF. Repeat labs daily, Renal panel is pending today. Avoid nephrotoxic agents The vascath was not removed as requested. Due to decline in renal function, we have asked the nurse not to remove it today. Will keep it in for now. (2) Sepsis ICD Codes: A41.9 - Sepsis, unspecified organism Status: Resolved Plan: ID following. On Cefazolin, stop date 02/27. Source is likely infected leg wounds. / blood cultures positive, wound culture also positive for Group B strep Monitor clinically. (3) Anemia ICD Codes: D64.9 - Anemia, unspecified Status: Chronic Plan: Hemoglobin is low but improved; he has required multiple transfusions this admission. No significant bleeding at this time. continue to monitor. Start oral Iron, avoid Venofer given recent sepsis. (4) Hyponatremia ICD Codes: E87.1 - Hypo-osmolality and hyponatremia Status: Acute Plan: Stable Monitor H xof psychogenic polydipsia. Problem Qualifiers (1) Sepsis: Qualified Codes: A41.9 - Sepsis, unspecified organism Shaun Mcmahon MD January 30, 2018 08:56
[2018-01-30] MEDS: POLYETHYLENE GLYCOL 17 GM PKG PO SCH ×2 (09:00→09:34)
[2018-01-30] MEDS: LACTULOSE SYRUP 20 GM/30 ML CUP PO SCH ×2 (09:00→09:34)
[2018-01-30] MEDS: PATIENT OWN MEDICATION PO SCH (09:00)
[2018-01-30 09:19] LABS: ALBUMIN 1.1 GM/DL (3.4-5.0); BICARBONATE 19.9 MEQ/L (21.0-32.0); CALCIUM 8.6 MG/DL (8.5-10.1); CREATININE 2.92 MG/DL (0.60-1.30); PHOSPHORUS 3.6 MG/DL (2.5-4.9)
[2018-01-30] MEDS: DOCUSATE SODIUM 50 MG/SENNA 8.6 MG TAB PO SCH ×2 (09:34→21:00)
[2018-01-30] MEDS: ASPIRIN 325 MG TAB PO SCH (09:34)
[2018-01-30] MEDS: MUPIROCIN 2% OINT 1 APPLIC/GM SYR EACH NARE SCH ×2 (09:34→21:00)
[2018-01-30] MEDS: PANTOPRAZOLE SOD 40 MG DELAYED RELEASE TAB PO SCH (09:35)
[2018-01-30] MEDS: INSULIN DETEMIR 100 UNITS/ML VIAL SQ SCH (09:35)
[2018-01-30 11:34] VITALS: BP 158/74; PULSE 68; RESP 18; TEMP 97.9; O2SAT 96
--- NOTE | 2018-01-30 14:47 | HHI.IDPN ---
Note Infectious Disease Note Patient says he feels okay. Reports he no longer has the same aches and pains that he had before. Denies chills. Afebrile. Admitted with altered mental status. In the emergency department, his blood pressure was 85/53. The white blood cell count was elevated at 27 and lactic acid level of 3.1. PAST MEDICAL HISTORY: 1. Hypertension. 2. Anxiety/depression. 3. Hiatal hernia. 4. Schizophrenia. 5. Diabetes mellitus. 6. Charcot deformity of the feet. 7. A left pelvic fracture. 8. History of abscess of the right foot. ALLERGIES: VANCOMYCIN, LEVAQUIN, HALOPERIDOL, FLUPHENAZINE, CODEINE. MEDICATIONS: Antibiotics: Ancef. SOCIAL HISTORY: Positive alcohol use reportedly daily. No tobacco. No illicit drugs. Objective: Vital Signs Date Time Temp Pulse Resp B/P (MAP) Pulse Ox O2 Delivery O2 Flow Rate FiO2 01/30/18 11:34 97.9 68 18 158/74 (102) 96 01/30/18 08:00 97.7 68 20 166/78 (107) 97 01/30/18 07:31 97.3 72 18 170/79 (109) 97 01/30/18 00:00 79 01/30/18 00:00 97.6 82 16 186/79 (114) 96 01/29/18 20:00 97.7 79 16 177/76 (109) 98 01/29/18 20:00 75 01/29/18 18:12 96 Nasal Cannula 2.00 01/29/18 16:42 71 01/29/18 15:40 97.8 73 20 159/74 (102) 96 Laboratory Tests Test 01/29/18 07:39 01/30/18 07:53 Blood Urea Nitrogen 35 MG/DL 36 MG/DL Creatinine 3.03 MG/DL 2.92 MG/DL Random Glucose 67 MG/DL 83 MG/DL Albumin 1.1 GM/DL 1.1 GM/DL Calcium Level 8.8 MG/DL 8.6 MG/DL Phosphorus Level 4.3 MG/DL 3.6 MG/DL Sodium Level 138 MEQ/L 136 MEQ/L Potassium Level 5.2 MEQ/L 4.6 MEQ/L Chloride Level 109 MEQ/L 108 MEQ/L Carbon Dioxide Level 22.3 MEQ/L 19.9 MEQ/L Anion Gap 7 MEQ/L 8 MEQ/L Estimat Glomerular Filtration Rate 22 ML/MIN 23 ML/MIN Iron Level 43 MCG/DL Total Iron Binding Capacity 105 MCG/DL Percent Iron Saturation 41.0 % Imaging: Chest X-Ray 01/20/18 0600 Signed Impressions: Service Date/Time: Saturday, January 20, 2018 04:15 - CONCLUSION: Right IJ Vas-Cath in good position. Heart is enlarged. Duncan Zaldivar MD Foot MRI 01/19/18 0000 Signed Impressions: Service Date/Time: Friday, January 19, 2018 12:36 - CONCLUSION: 1. 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 These findings are very similar to the prior study 2016. 2. Plantar cutaneous defect and extensive midfoot plantar superficial soft tissue edema extending into the plantar musculature. These findings are suspicious for infection in the proper clinical setting. Elongated adjacent more medial and distal plantar soft tissue ovoid fluid collection may represent a pseudo-bursa or abscess. More ill-defined edema is seen extending laterally to the base of the fifth metatarsal with likely early osteomyelitis at this location. This lateral extension is a new finding when compared to the prior study of 2016. 3. Posterior superficial soft tissue edema the heel with mild adjacent bony edema is very similar to the prior study with no definitive osteomyelitis. Ganga Luna MD Foot MRI 01/19/18 Signed Impressions: Service Date/Time: Friday, January 19, 2018 12:36 - CONCLUSION: 1. Plantar cutaneous defect with underlying septated fluid signal extending into the area of plantar aponeurosis defect. This finding is much more prominent than on the comparison MRI and suggests soft tissue infection in the proper clinical setting. Defined rounded collection is not seen. The abnormal fluid signal extends to the plantar surface of the cuboid but no definitive evidence of osteomyelitis is seen. 2. Extensive arthritic findings and bony destructive findings in the midfoot and hindfoot similar to prior study of 2016 indicating severe neuropathic osteoarthropathy. Ganga Luna MD Abdomen X-Ray 01/19/18 Signed Impressions: Service Date/Time: Friday, January 19, 2018 10:57 - CONCLUSION: Nonspecific bowel gas pattern. Mildly distended air-filled stomach. Ganga Luna MD Head CT 01/14/182000 Signed Impressions: Service Date/Time: Sunday, January 14, 2018 20:22 - CONCLUSION: Normal examination for a patient of this age. Marcio Hansen MD Chest X-Ray 01/14/182000 Signed Impressions: Service Date/Time: Sunday, January 14, 2018 20:25 - CONCLUSION: 1. Mild cardiomegaly. No focal consolidation or effusion. Marcio Hansen MD Lower Extremity CT 01/14/18 0000 Signed Impressions: Service Date/Time: Sunday, January 14, 2018 23:38 - CONCLUSION: 1. CT findings characteristic of a severe Charcot foot in the mid and hindfoot with collapse of the plantar arch. Osteoarthritic changes of the first MTP joint 2. However, findings all appear to be chronic with no acute osseous injury Marquis Mcdonald MD Abdomen/Pelvis CT 01/14/18 Signed Impressions: Service Date/Time: Sunday, January 14, 2018 23:35 - CONCLUSION: 1. CT findings suggest volume overload or low oncotic pressures with some flank and mesenteric edema, gallbladder wall thickening and some free fluid in the pelvis. Heart size is somewhat prominent. 2. Bilateral symmetric gynecomastia. Nonspecific findings but can be associated with some chronic disease processes or medications. 3. Left periaortic borderline prominent lymph nodes. Again, nonspecific but may be reactive associated with the aforementioned mesenteric edema. 4. 5.7 cm periumbilical fatty hernia. There is now some fluid along the periphery of the hernia. This could be related to the generalized edema described above although fatty infarction could have a similar radiographic presentation. Please correlate with clinical symptomatology Marquis Mcdonald MD PHYSICAL EXAMINATION: GENERAL: Awake and alert. HEENT: Pupils reactive to light. The sclerae is pale. Oropharynx, dry mucosa. No lesions. No thrush. NECK: Supple without adenopathy or swelling. LUNGS: Breath sounds clear. HEART: Distant S1 and S2. No murmurs, rubs or gallops. ABDOMEN: Bowel sounds present, soft, mildly distended, protruding umbilical abdominal hernia. EXTREMITIES: No clubbing. No cyanosis. Trace. Wound VAC on left foot. No erythema. SKIN: No diffuse rash. NEUROLOGIC: No gross focal finding. PSYCHIATRIC: Calm and cooperative. IMPRESSION: 1. Severe sepsis. Improved 2. Bacteremia due to group A beta strep. 3. Leukocytosis secondary to sepsis. Improved 4. Source of sepsis - diabetic foot infection due to group A strep. 5. Acute renal failure. 6. Charcot's joint and soft tissue infection of both feet. Bony destructive change in the left foot. Wound VAC in place. RECOMMENDATIONS: 1. Continue Cefazolin IV until February 27, 2018. Due to his acute renal failure cannot place the PICC line. 2. Follow white blood cell count. 3. Monitor clinical status. Sen Washington MD January 30, 2018 14:47
--- NOTE | 2018-01-30 15:11 | PD.WCN.NOT ---
Wound Consult Description: Left foot Recommendation: Please cleanse wounds to right foot with normal saline or wound cleanser and cover open wounds with Maxorb Extra AG and secure with 4x4's, ABD pads, and secure with rolled gauze and OSEI wrap. Change dressing every 3 days and PRN for saturation or dislodgement. Change VAC dressing to left foot as ordered. Reinforce wound VAC dressing to left foot; if unable to obtain a seal after 2 hours the black granufoam must be removed and a moist to dry dressing applied. Contact Podiatry if this occurs. Neg Pressure Wound Therapy Wound Location Wound Location: Left foot Wound Description Length: 4.2cm Width: 10.8cm Depth: ~1.5cm wound base is soft boggy Wound bed appearance: Red vascular moist granulation tissue Periwound appearance: Other (Maceration noted between 7-10 O'clock maxorb ll applied) Settings Suction: 125 mmHg, Continuous Intensity: Low Other Information: Windowpaned, Mushroomed Foam type: Black Number of pieces: 1 Additonal Information Patient was seen today on [address] for routine wound vac dressing change.Patient alert in bed with no complaints of distress /discomfort.Dressing removed from left foot without difficulty.Wound cleansed with normal saline pat dry.Wound base is vascular with scant bloody exudate.Maxorb ll applied to macerated periwound and stoma paste applied to periwound circumferentially for periwound integrity/protection .Single piece cut to fit wound base black sponge applied and secure with draping.Track pad applied and suction initiated @125mmHg low continuos suction with no leaks noted.Osei wrap applied for security.Patient left limb floated on pillow.Right foot dressing dry and intact.patient tolerated wound care well. Lore Toney [facility] January 30, 2018 15:11
[2018-01-30 15:35] VITALS: BP 163/73; PULSE 70; RESP 18; TEMP 97.8; O2SAT 97
--- NOTE | 2018-01-30 15:41 | HHI.PR ---
Subjective Remarks He says he is feeling all right. Denies any chest pain or shortness of breath. Denies nausea or vomiting. Reports pain is controlled. Objective Vital Signs Date Time Temp Pulse Resp B/P (MAP) Pulse Ox O2 Delivery O2 Flow Rate FiO2 01/30/18 11:34 97.9 68 18 158/74 (102) 96 01/30/18 08:00 97.7 68 20 166/78 (107) 97 01/30/18 07:31 97.3 72 18 170/79 (109) 97 01/30/18 00:00 79 01/30/18 00:00 97.6 82 16 186/79 (114) 96 01/29/18 20:00 97.7 79 16 177/76 (109) 98 01/29/18 20:00 75 01/29/18 18:12 96 Nasal Cannula 2.00 01/29/18 16:42 71 I/O 01/29/18 01/29/18 01/29/18 01/30/18 01/30/18 01/30/18 07:00 15:00 23:00 07:00 15:00 23:00 Intake Total 120 ml Output Total 600 ml 1300 ml Balance -600 ml -1300 ml 120 ml Intake Oral 120 ml Output Urine Total 600 ml 1300 ml # Bowel Movements 2 3 Result Diagram: 01/28/18 0631 01/30/18 0753 Procedures s/p bedside incision and drainage 01/20/18 s/p bilateral debridement and irrigation 01/22/18 wound vac placement to left foot Objective Remarks GENERAL: Sitting up in bed. Appears comfortable. SKIN: Warm and dry. HEAD: Normocephalic. EYES: No scleral icterus. No injection or drainage. NECK: Supple, trachea midline. No JVD. CARDIOVASCULAR: Regular rate and rhythm without murmurs, gallops, or rubs. RESPIRATORY: Breath sounds equal bilaterally. No accessory muscle use. GASTROINTESTINAL: Abdomen soft, non-tender, nondistended. MUSCULOSKELETAL: No cyanosis. Trace bilateral lower extremity edema. Bilateral feet are dressed. Wound VAC in place BACK: Nontender without obvious deformity. No CVA tenderness. A/P Assessment and Plan 01/30/18 ID considering putting PICC line, however poor renal function. We will continue IV antibiotics for treatment of diabetic foot infection until February 27, 2018. Diabetes mellitus. Hyperglycemia. Discontinue insulin sliding scale. Decrease Levemir dose. Septic shock due to Group A strep septicemia from diabetic foot infection - resolved //Diabetic foot infection and abscess status post drainage and debridement on 01/20 s/p debridement of both feet along with wound vac placement- podiatry following. wound care consulted. wound vac management per podiatry/ wound care. On cefazolin till - ID following. Pertinent microbiology 01/14 -blood cultures 2 beta strep group A 01/15 and 01/16 -wound -beta strep group A 01/16-01/17 -blood cultures 2 -no growth 01/17 -UA -no growth //Metabolic encephalopathy secondary to sepsis -resolved. //Schizophrenia //Posttraumatic stress disorder resumed home meds. //History of hypertension, essential and chronic resumed Amlodipine continue to monitor BP and adjust the regimen as needed. //Nonoliguric BISHOP -worsening creatinine today, per renal no indication for hemodialysis at this time and Vas-Cath will be discontinued. Hypokalemia -resolved and now with mild hyperkalemic will continue to monitor 01/16 Lasix 40 mg IV 1 dose 01/17 vascular cath placement now removed had HD on 01/18 and 01/20- HD on hold for now per nephrology. continue to monitor renal function. Nephrology following- and Avoid nephrotoxic drugs //Hepatitis C antibody positive. Genotype not detected and viral load pending //Elevated LFTs- Shock Liver //Hepatomegaly //Cholelithiasis Monitor CMP 01/16 ultrasound of the liver- Trace ascites. Findings most consistent with hepatic steatosis or liver disease. Cholelithiasis with gallbladder wall prominence but trace pericholecystic fluid Hepatitis C IgG antibody positive GI consulted appreciate recommendations; f/u with GI as outpatient. Noted VICKIE positive. //Normocytic anemia - //Coagulopathy - Transfused 2 units PRBC on 01/21 and 01/23 Transfused 2 units FFP on 01/21 as well continue to monitor H/H continue PT. //Diabetes mellitus type 2 resumed diet - continue levemir and continue with accu-check with SSI Glipizide 10 mg p.o. twice daily home medication held = 01/30. Discontinue sliding scale. Decrease Levemir dose //GI Prophylaxis Pantoprazole //DVT Prophylaxis -- SCDs Teds and SCDs. Heparin SQ on hold in the setting of elevated INR. Discharge Planning Pending ID clearance Can you on IV antibiotics until February 27, 2018. Jarrod Martinez MD January 30, 2018 15:41
[2018-01-30 20:00] VITALS: BP 157/72; PULSE 76; PULSE 80; RESP 16; TEMP 98.6; O2SAT 98
[2018-01-31] VITALS (7 sets, daily range): BP systolic 141–165; BP diastolic 68–76; PULSE 77–92; RESP 16–19; TEMP 97.4–98.6; O2SAT 96–99
[2018-01-31] MEDS: SODIUM CHLORIDE 0.9% FLUSH 10 ML FLUSH IV FLUSH SCH ×4 (00:20→20:25)
[2018-01-31] MEDS: MUPIROCIN 2% OINT 1 APPLIC/GM SYR EACH NARE SCH ×3 (00:22→20:25)
[2018-01-31] MEDS ORDERED: ceFAZolin 2 GM in NS 100 ML IV SCH (03:00)
[2018-01-31] MEDS: CHLORHEXIDINE GLUCONATE 2 % 1 PACK (2 CLOTHS) TOP SCH (03:16)
[2018-01-31] MEDS: SODIUM CHLOR 0.45% 1000 ML INJ 1,000 ML IV SCH ×2 (04:44→16:03)
[2018-01-31] MEDS: LACTULOSE SYRUP 20 GM/30 ML CUP PO SCH (09:00)
[2018-01-31] MEDS: DOCUSATE SODIUM 50 MG/SENNA 8.6 MG TAB PO SCH ×2 (09:00→20:18)
[2018-01-31] MEDS: POLYETHYLENE GLYCOL 17 GM PKG PO SCH (09:00)
[2018-01-31] MEDS ORDERED: INSULIN DETEMIR 100 UNITS/ML VIAL SQ SCH (09:00)
[2018-01-31] MEDS: PATIENT OWN MEDICATION PO SCH (09:00)
[2018-01-31 09:40] LABS: ALBUMIN 1.2 GM/DL (3.4-5.0); BICARBONATE 20.8 MEQ/L (21.0-32.0); CALCIUM 8.7 MG/DL (8.5-10.1); CREATININE 2.84 MG/DL (0.60-1.30)
[2018-01-31 09:41] LABS: PHOSPHORUS 3.5 MG/DL (2.5-4.9)
[2018-01-31] MEDS: PANTOPRAZOLE SOD 40 MG DELAYED RELEASE TAB PO SCH (12:11)
[2018-01-31] MEDS: ASPIRIN 325 MG TAB PO SCH (12:11)
--- NOTE | 2018-01-31 15:25 | HHI.IDPN ---
Note Infectious Disease Note Patient says he feels okay. Feels neck stiffness. has difficulty moving the head to the left. Denies chills. No shortness of breath. Afebrile. He is tolerating antibiotics. Admitted with altered mental status. In the emergency department, his blood pressure was 85/53. The white blood cell count was elevated at 27 and lactic acid level of 3.1. PAST MEDICAL HISTORY: 1. Hypertension. 2. Anxiety/depression. 3. Hiatal hernia. 4. Schizophrenia. 5. Diabetes mellitus. 6. Charcot deformity of the feet. 7. A left pelvic fracture. 8. History of abscess of the right foot. ALLERGIES: VANCOMYCIN, LEVAQUIN, HALOPERIDOL, FLUPHENAZINE, CODEINE. MEDICATIONS: Antibiotics: Ancef. SOCIAL HISTORY: Positive alcohol use reportedly daily. No tobacco. No illicit drugs. Objective: Vital Signs Date Time Temp Pulse Resp B/P (MAP) Pulse Ox O2 Delivery O2 Flow Rate FiO2 01/31/18 12:00 98.3 88 18 165/71 (102) 96 01/31/18 08:00 98.4 83 18 157/70 (99) 96 01/31/18 04:00 97.4 82 16 156/72 (100) 99 01/31/18 00:00 97.5 80 16 152/76 (101) 98 01/31/18 00:00 92 01/30/18 20:00 80 01/30/18 20:00 98.6 76 16 157/72 (100) 98 01/30/18 18:18 Nasal Cannula 2.00 01/30/18 15:35 97.8 70 18 163/73 (103) 97 Laboratory Tests Test 01/30/18 07:53 01/31/18 08:52 Blood Urea Nitrogen 36 MG/DL 35 MG/DL Creatinine 2.92 MG/DL 2.84 MG/DL Random Glucose 83 MG/DL 77 MG/DL Albumin 1.1 GM/DL 1.2 GM/DL Calcium Level 8.6 MG/DL 8.7 MG/DL Phosphorus Level 3.6 MG/DL 3.5 MG/DL Sodium Level 136 MEQ/L 136 MEQ/L Potassium Level 4.6 MEQ/L 4.7 MEQ/L Chloride Level 108 MEQ/L 109 MEQ/L Carbon Dioxide Level 19.9 MEQ/L 20.8 MEQ/L Anion Gap 8 MEQ/L 6 MEQ/L Estimat Glomerular Filtration Rate 23 ML/MIN 23 ML/MIN Imaging: Chest X-Ray 01/20/18 0600 Signed Impressions: Service Date/Time: Saturday, January 20, 2018 04:15 - CONCLUSION: Right IJ Vas-Cath in good position. Heart is enlarged. Duncan Zaldivar MD Foot MRI 01/19/18 0000 Signed Impressions: Service Date/Time: Friday, January 19, 2018 12:36 - CONCLUSION: 1. 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 These findings are very similar to the prior study 2016. 2. Plantar cutaneous defect and extensive midfoot plantar superficial soft tissue edema extending into the plantar musculature. These findings are suspicious for infection in the proper clinical setting. Elongated adjacent more medial and distal plantar soft tissue ovoid fluid collection may represent a pseudo-bursa or abscess. More ill-defined edema is seen extending laterally to the base of the fifth metatarsal with likely early osteomyelitis at this location. This lateral extension is a new finding when compared to the prior study of 2016. 3. Posterior superficial soft tissue edema the heel with mild adjacent bony edema is very similar to the prior study with no definitive osteomyelitis. Ganga Luna MD Foot MRI 01/19/18 0000 Signed Impressions: Service Date/Time: Friday, January 19, 2018 12:36 - CONCLUSION: 1. Plantar cutaneous defect with underlying septated fluid signal extending into the area of plantar aponeurosis defect. This finding is much more prominent than on the comparison MRI and suggests soft tissue infection in the proper clinical setting. Defined rounded collection is not seen. The abnormal fluid signal extends to the plantar surface of the cuboid but no definitive evidence of osteomyelitis is seen. 2. Extensive arthritic findings and bony destructive findings in the midfoot and hindfoot similar to prior study of 2016 indicating severe neuropathic osteoarthropathy. Ganga Luna MD Abdomen X-Ray 01/19/18 0000 Signed Impressions: Service Date/Time: Friday, January 19, 2018 10:57 - CONCLUSION: Nonspecific bowel gas pattern. Mildly distended air-filled stomach. Ganga Luna MD Head CT 01/14/182000 Signed Impressions: Service Date/Time: Sunday, January 14, 2018 20:22 - CONCLUSION: Normal examination for a patient of this age. Marcio Hansen MD Chest X-Ray 01/14/182000 Signed Impressions: Service Date/Time: Sunday, January 14, 2018 20:25 - CONCLUSION: 1. Mild cardiomegaly. No focal consolidation or effusion. Marcio Hansen MD Lower Extremity CT 01/14/18 Signed Impressions: Service Date/Time: Sunday, January 14, 2018 23:38 - CONCLUSION: 1. CT findings characteristic of a severe Charcot foot in the mid and hindfoot with collapse of the plantar arch. Osteoarthritic changes of the first MTP joint 2. However, findings all appear to be chronic with no acute osseous injury Marquis Mcdonald MD Abdomen/Pelvis CT 01/14/18 Signed Impressions: Service Date/Time: Sunday, January 14, 2018 23:35 - CONCLUSION: 1. CT findings suggest volume overload or low oncotic pressures with some flank and mesenteric edema, gallbladder wall thickening and some free fluid in the pelvis. Heart size is somewhat prominent. 2. Bilateral symmetric gynecomastia. Nonspecific findings but can be associated with some chronic disease processes or medications. 3. Left periaortic borderline prominent lymph nodes. Again, nonspecific but may be reactive associated with the aforementioned mesenteric edema. 4. 5.7 cm periumbilical fatty hernia. There is now some fluid along the periphery of the hernia. This could be related to the generalized edema described above although fatty infarction could have a similar radiographic presentation. Please correlate with clinical symptomatology Marquis Mcdonald MD PHYSICAL EXAMINATION: GENERAL: Awake and alert and oriented. HEENT: Pupils reactive to light. The sclerae is pale. Oropharynx, dry mucosa. No lesions. No thrush. NECK: Mild stiffness. No palpable mass. No adenopathy. LUNGS: Decreased clear breath sounds. HEART: Distant S1 and S2. No murmurs, rubs or gallops. ABDOMEN: Bowel sounds present, soft, mildly distended, protruding umbilical abdominal hernia. EXTREMITIES: No clubbing. No cyanosis. Trace. Wound VAC on left foot. No erythema. SKIN: No diffuse rash. NEUROLOGIC: No gross focal finding. PSYCHIATRIC: Calm and cooperative. IMPRESSION: 1. Severe sepsis. Improved 2. Bacteremia due to group A beta strep. 3. Leukocytosis secondary to sepsis. Improved 4. Source of sepsis - diabetic foot infection due to group A strep. 5. Acute renal failure. 6. Charcot's joint and soft tissue infection of both feet. Bony destructive change in the left foot. Wound VAC in place. 7. Mild neck stiffness which could be related to the way the patient slept. RECOMMENDATIONS: 1. Continue Cefazolin IV until February 27, 2018. Discussed with renal about IV access. Tunneled Dc catheter is recommended. Order placed for radiology to insert the Dc catheter. 2. Follow the clinical status. 3. After the Dc catheter is inserted, patient can be discharged with arrangements made for outpatient antibiotic rehab facility. Case management is working on placement. Orders filled out for the antibiotics on infusion form. Sen Washington MD January 31, 2018 15:25
--- NOTE | 2018-01-31 15:27 | HHI.FF ---
Infusion Therapy Location of Infusion Therapy: [facility] Infusion Therapy Order Patient Information Patient Weight 96.3 kg Diagnosis: (1) Osteomyelitis of ankle or foot Coded Allergies: haloperidol (Verified Allergy, Severe, BLINDNESS, 01/14/18) vancomycin (Verified Allergy, Severe, 01/14/18) levofloxacin (Verified Allergy, Intermediate, Cramping, 01/14/18) fluphenazine (Verified Allergy, Unknown, "[employer]", 01/14/18) codeine (Verified Adverse Reaction, Mild, 01/14/18) "makes me feel funny" but feels ok taking Arminto's *MDRO Multi-Drug Resistant Organism (Verified Adverse Reaction, Unknown, VRE, 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 [] May leave port accessed during therapy. [] May leave peripheral site accessed for duration of therapy. [x] If patient has SOB or respiratory distress, check oxygen saturation. If less than 90% or clinical signs of respiratory distress, administer oxygen at 2 L/min. via nasal cannula and notify physician. [x] Anaphylaxis/Reaction orders: * Stop infusion. * Keep IV line open with saline flush. * Notify physician. * Monitor vital signs every 15 minutes until symptoms resolve. * Check Oxygen saturation; Oxygen at 2 L/min. via nasal cannula if less than 90% or clinical signs of respiratory distress. * Administer diphenhydramine (Benadryl) 25 mg IV STAT, (unless patient has received as pre-med). May repeat once, if necessary. * Solu-Cortef 250 mg IVP over 30-60 seconds, use 100 mg vials for each dissolution. * Epinephrine (1mg/1 ml) 0.3 mg subcutaneously or IVP now with any signs of respiratory distress. * Check with physician for new additional pre-med orders if patient is re- challenged or re-treated. [x] May remove PICC line when treatment complete, after confirming with Physician. [x] If the patient is admitted to the hospital, the ED, or transferred via [facility] , complete transfer form including medication reconciliation order sheet. Laboratory Tests Weekly Labs: BMP, CBC w/diff Sen Washington MD January 31, 2018 15:27
--- NOTE | 2018-01-31 15:34 | HHI.NPPN ---
Subjective General Problems: Edema Renal Failure: Acute Interval History IVF continues. Renal function is slightly better. Non oliguric. (Laura Quesada) Review of Systems General Constitutional: Fatigue (Laura Quesada) Skin Skin Remarks wounds to bilateral feet. (Laura Quesada) Objective Data Data 01/31/18 02/01/18 19:00 07:00 Intake Total 960 ml Output Total 900 ml Balance 60 ml Intake Oral 960 ml Output Urine Total 900 ml # Bowel Movements 1 Vital Signs Date Time Temp Pulse Resp B/P (MAP) Pulse Ox O2 Delivery O2 Flow Rate FiO2 01/31/18 12:00 98.3 88 18 165/71 (102) 96 01/31/18 08:00 98.4 83 18 157/70 (99) 96 01/31/18 04:00 97.4 82 16 156/72 (100) 99 01/31/18 00:00 97.5 80 16 152/76 (101) 98 01/31/18 00:00 92 01/30/18 20:00 80 01/30/18 20:00 98.6 76 16 157/72 (100) 98 01/30/18 18:18 Nasal Cannula 2.00 01/30/18 15:35 97.8 70 18 163/73 (103) 97 (Laura Quesada) -: 01/28/18 0631 01/31/18 0852 Tubes & Lines Comment wound vac bilateral feet (Laura Quesada) Physical Exam General Appearance: No Acute Distress, Comfortable Appearance Remarks disheveled, appears older than stated age (Laura Quesada) Ears & Nose Ears & Nose Exam: Tympanic Membranes Normal (Laura Quesada) Throat Throat Exam: Oral Mucosa Ringoes & Moist (Laura Quesada) Pulmonary Resp Exam: Breath Sounds Equal, No Distress (Laura Quesada) Cardiology CV Exam: Normal Sinus Rhythm, Good Perfusion (Laura Quesada) Gastrointestinal/Abdomen GI Exam: Soft, Non-Tender, Bowel Sounds Present (Laura Quesada) Musculoskeletal MS Exam: Joints Intact, Normal Tone, Unable to Ambulate (Laura Quesada) Integumentary Skin Exam: Warm, Dry, Tenting Skin Remarks wound on bilateral feet/heals , dressings in place Wound vac in place (Laura Quesada) Extremeties Extremities Exam: Trace Edema (Laura Quesada) Neurologic Neuro Exam: Alert, Awake, Speech Clear, Moving All Extremities (Laura Quesada) Psychiatric Psych Exam: Appropriate Responses (Laura Quesada) Assessment/Plan Discussed Condition With: Patient Assessment Summary: BISHOP/Acute Renal Failure Problem List: (1) Acute worsening of stage 3 chronic kidney disease ICD Codes: N18.3 - Chronic kidney disease, stage 3 (moderate) Plan: Renal US suggesting underlying CKD. Last year Creatinine was 1.7. BISHOP was ATN from sepsis. He required 2 dialysis sessions, on 01/18 and 01/20. Has some initial improvement in renal function but not as much as anticipated. He may be suffering from allergic interstitial nephritis due to antibiotic use; Worsening could also be due to persistent infection. IVF infusing, on 09/17 NS Repeat labs daily Avoid nephrotoxic agents. Further dialysis not anticipated. Vascath was removed. (2) Sepsis ICD Codes: A41.9 - Sepsis, unspecified organism Status: Resolved Plan: ID following. On Cefazolin, stop date 02/27. Source is likely infected leg wounds. 4/4 blood cultures positive, wound culture also positive for Group B strep Monitor clinically. For discharge purposes, IJ Tunneled Dc can be used for antibiotic administration. . (3) Anemia ICD Codes: D64.9 - Anemia, unspecified Status: Chronic Plan: Hemoglobin is persistently low No significant bleeding at this time. continue to monitor. On oral Iron, avoid Venofer given recent sepsis. (4) Hyponatremia ICD Codes: E87.1 - Hypo-osmolality and hyponatremia Status: Acute Plan: Stable Monitor H xof psychogenic polydipsia. (Laura Quesada) Plan patient was seen and examined. Agree with above assessment and plan. Renal function is improving. Taper off fluids. (Shaun Mcmahon MD) Problem Qualifiers (1) Sepsis: Qualified Codes: A41.9 - Sepsis, unspecified organism Laura QuesadaP January 31, 2018 15:34 Shaun Mcmahon MD January 31, 2018 15:45
--- NOTE | 2018-01-31 15:37 | HHI.PR ---
Subjective Remarks Patient says he is feeling all right. Denies any chest pain shortness of breath. Reports pain is controlled. Objective Vital Signs Date Time Temp Pulse Resp B/P (MAP) Pulse Ox O2 Delivery O2 Flow Rate FiO2 01/31/18 12:00 98.3 88 18 165/71 (102) 96 01/31/18 08:00 98.4 83 18 157/70 (99) 96 01/31/18 04:00 97.4 82 16 156/72 (100) 99 01/31/18 00:00 97.5 80 16 152/76 (101) 98 01/31/18 00:00 92 01/30/18 20:00 80 01/30/18 20:00 98.6 76 16 157/72 (100) 98 01/30/18 18:18 Nasal Cannula 2.00 01/30/18 15:35 97.8 70 18 163/73 (103) 97 I/O 01/30/18 01/30/18 01/30/18 01/31/18 01/31/18 01/31/18 06:59 14:59 22:59 06:59 14:59 22:59 Intake Total 120 ml 2566 ml 960 ml Output Total 1550 ml 900 ml Balance 120 ml 1016 ml 60 ml Intake Oral 120 ml 360 ml 960 ml IV Total 2206 ml Output Urine Total 1550 ml 900 ml # Voids 4 # Bowel Movements 1 Result Diagram: 01/28/18 0631 01/31/18 0852 Procedures s/p bedside incision and drainage 01/20/18 s/p bilateral debridement and irrigation 01/22/18 wound vac placement to left foot Objective Remarks GENERAL: Sitting up in bed. Appears comfortable. No change on exam. SKIN: Warm and dry. HEAD: Normocephalic. EYES: No scleral icterus. No injection or drainage. NECK: Supple, trachea midline. No JVD. CARDIOVASCULAR: Regular rate and rhythm without murmurs, gallops, or rubs. RESPIRATORY: Breath sounds equal bilaterally. No accessory muscle use. GASTROINTESTINAL: Abdomen soft, non-tender, nondistended. MUSCULOSKELETAL: No cyanosis. Trace bilateral lower extremity edema. Bilateral feet are dressed. Wound VAC in place BACK: Nontender without obvious deformity. No CVA tenderness. A/P Assessment and Plan 01/31/18 Discussed again with ID possibility of discharging to SNF with IV access. Appreciate assistance. Working on discharge. Will continue IV antibiotics for treatment of diabetic foot infection until February 27, 2018. Diabetes mellitus. With hypoglycemia now likely secondary to renal failure. Kidneys play a part in deactivating insulin. Stop Levemir. Septic shock due to Group A strep septicemia from diabetic foot infection - resolved //Diabetic foot infection and abscess status post drainage and debridement on 01/20 s/p debridement of both feet along with wound vac placement- podiatry following. wound care consulted. wound vac management per podiatry/ wound care. On cefazolin till - ID following. Pertinent microbiology 01/14 -blood cultures 2 beta strep group A 01/15 and 01/16 -wound -beta strep group A 01/16-01/17 -blood cultures 2 -no growth 01/17 -UA -no growth //Metabolic encephalopathy secondary to sepsis -resolved. //Schizophrenia //Posttraumatic stress disorder resumed home meds. //History of hypertension, essential and chronic resumed Amlodipine continue to monitor BP and adjust the regimen as needed. //Nonoliguric BISHOP -worsening creatinine today, per renal no indication for hemodialysis at this time and Vas-Cath will be discontinued. Hypokalemia -resolved and now with mild hyperkalemic will continue to monitor 01/16 Lasix 40 mg IV 1 dose 01/17 vascular cath placement now removed had HD on 01/18 and 01/20- HD on hold for now per nephrology. continue to monitor renal function. Nephrology following- and Avoid nephrotoxic drugs //Hepatitis C antibody positive. Genotype not detected and viral load pending //Elevated LFTs- Shock Liver //Hepatomegaly //Cholelithiasis Monitor CMP 01/16 ultrasound of the liver- Trace ascites. Findings most consistent with hepatic steatosis or liver disease. Cholelithiasis with gallbladder wall prominence but trace pericholecystic fluid Hepatitis C IgG antibody positive GI consulted appreciate recommendations; f/u with GI as outpatient. Noted VICKIE positive. //Normocytic anemia - //Coagulopathy - Transfused 2 units PRBC on 01/21 and 01/23 Transfused 2 units FFP on 01/21 as well continue to monitor H/H continue PT. //Diabetes mellitus type 2 resumed diet - continue levemir and continue with accu-check with SSI Glipizide 10 mg p.o. twice daily home medication held = 01/30. Discontinue sliding scale. Decrease Levemir dose //GI Prophylaxis Pantoprazole //DVT Prophylaxis -- SCDs Teds and SCDs. Heparin SQ on hold in the setting of elevated INR. Discharge Planning Pending ID clearance cont on IV antibiotics until February 27, 2018. Jarrod Martinez MD January 31, 2018 15:37
[2018-01-31] MEDS ORDERED: ceFAZolin 2 GM PREMIX 50 ML ONE (15:52)
[2018-01-31] MEDS ORDERED: MIDAZOLAM HCL 2 MG/2 ML VIAL ONE (16:54)
--- NOTE | 2018-01-31 16:59 | PD.WCN.NOT ---
Wound Consult Description: Wound VAC change to Left foot M-W- with settings @125mmHg low continuous suction Communicated with: Patient RN Recommendation: 1. Please cleanse wounds to right foot with normal saline or wound cleanser and cover open wounds with Maxorb Extra AG and cover with ABD pads, and secure with rolled gauze and BERTRAM wrap (not for compression). 2. Change dressing on right foot every 3-5 days and PRN for saturation or dislodgement. Place right foot in heel raiser boots for DTI to posterior heel. *All DTI's noted to right dorsal foot, right lateral foot, right posterior heel , left posterior heel were skin prepped with Cavilon skin barrier film and allowed to air dry prior to covering with dry covers. 1. Change VAC dressing to left foot as ordered. 2. Reinforce wound VAC dressing to left foot using VAC drape available in room if notified of leak alarming. If unable to obtain a seal after 2 hours, per protocol, the black granufoam must be removed and a moist to dry dressing applied. Contact Podiatry if this occurs Patient is noted with charcot foot bilaterally. Right foot plantar wound measures 3.4cm x 2.6cm x 0.3cm with a red boggy wound base and 100% red non granulating tissue. Wound margins are sharp from previous debridement by Dr Vivar. Wound was cleansed with wound cleanser and gauze. Maxorb Extra AG was placed over wound bed, right lateral heel DTI, right dorsal DTI, and right posterior heel DTI and then secured with rolled gauze and BERTRAM wrap prior to placing in blue heel raiser boots to keep heel off mattress surface. Additional Information: Patient seen on for wound VAC change to left foot and dressing change to right foot. Neg Pressure Wound Therapy Wound Location Wound Location: Left foot wound was measured as one wound. Wound Description Length: 4.4cm Width: 9cm Depth: 1cm Underminin cm @ 5 o'clock Wound bed appearance: 100% moist red vascular granulation tissue Periwound appearance: Other (peeling circumferentially, with partial thickness skin loss noted touching wound bed from 7-11 o'clock) Settings Suction: 125 mmHg, Continuous Intensity: Low Foam type: Black Number of pieces: 1 Additonal Information Wound VAC dressing removed from left foot with one piece of black granufoam removed from wound bed. Wound was cleansed with wound cleanser and measured above. Periwound was skin prepped with Cavilon skin barrier film. One piece of black granufoam was cut the size of the wound bed and placed in wound with trac pad covering to secure. One piece of concepcion seal was used to separate the granulation tissue from the partial thickness skin loss noted from 7-11 o'clock to which Maxorb Extra AG was placed over and secured with VAC drape. Entire dressing was then covered with 2 more pieces of VAC drape on the edges to reinforce. Wound VAC was turned on and working properly without leaks. Rolled gauze and BERTRAM wrap was then applied prior to placing foot in blue heel raiser boot to elevate off mattress surface. Susana Swartz [facility] January 31, 2018 16:59
[2018-01-31] MEDS ORDERED: LIDOCAINE 1%/EPINEPHrine 1:100,000 SOLN 30 ML VIAL ONE (17:12)
[2018-01-31] MEDS ORDERED: LORazepam 2 MG/ML VIAL ONE (17:13)
--- NOTE | 2018-01-31 17:55 | RADRPT ---
EXAM DATE/TIME: 01/31/2018 17:20 [place] COMPARISON: No previous studies available for comparison. INDICATIONS : Patient with a history of sepsis needs dc catheter. MEDICAL HISTORY : HTN Diabetes Chronic right plantar wound CHF PAD Anxiety Schizophrenia SURGICAL HISTORY : Foot I&D ENCOUNTER: Initial ACUITY: 4-6 days PAIN SCORE: 6/10 LOCATION: neck FLUORO TIME: 0.6 minutes IMAGE SERIES: 0 SEDATION TIME: 10 minutes ACCESS: Right internal jugular vein SEDATION: 1.) 2 mg lorazepam (Ativan) IV 2.) 100 mcg fentanyl (Sublimaze) IV Prophylactic antibiotics were administered with appropriate pre-procedure timing. Vancomycin within 2 hours of procedure, Ancef (or alternative) within 1 hour of procedure. DEVICE: 1. 6 [place] single lumen Dc catheter PROCEDURE : 1. Ultrasound-guided puncture of the prescribed vein. 2. Fluoroscopic guidance. 3. Dc catheter placement 4. Conscious sedation with continuous EKG and oximetry monitoring. The risks, benefits and alternatives to the procedure were explained and verbal and written consent w as obtained. The site was prepped in sterile fashion. Full sterile technique was used, including ca p, mask, sterile gloves and gown and a large sterile sheet. Hand hygiene and 2% chlorhexidine Betadi ne was utilized per protocol for cutaneous antisepsis with appropriate dry time for site. Sterile ge l and sterile probe cover were utilized for ultrasound guidance. The skin and subcutaneous tissues w ere infiltrated with local anesthetic solution. With ultrasound and fluoroscopic guidance a dermatotomy was created in the supraclavicular region. A micropuncture set was used to access to the prescribed vein and serial dilatation was performed to a ccept a Dc catheter. A subcutaneous tunnel was created and in antegrade fashion the catheter wa s pulled through the tunnel, cut to the appropriate length and place through the sheath. The cathete r was locked with heparin and sutured in place. Conscious sedation was performed with the prescribed dosages and duration as above in the presence of an independent trained radiology nurse to assist in the monitoring of the patient. EKG and oximetry remained stable throughout the procedure. The patient tolerated the procedure well and there were no complications. The patient was sent to post anesthesia recovery in stable condition. CONCLUSION: Uncomplicated Dc catheter placement as above. Nam Tinajero MD on January 31, 2018 at 17:53 Board Certified Radiologist. This report was verified electronically.
[2018-02-01] VITALS (7 sets, daily range): BP systolic 133–171; BP diastolic 61–78; PULSE 60–97; RESP 16–18; TEMP 97.8–98.8; O2SAT 94–99
[2018-02-01] MEDS ORDERED: SODIUM CHLORIDE 0.9% IV SCH (03:00)
[2018-02-01] MEDS ORDERED: CEFAZOLIN IV SCH (03:00)
[2018-02-01] MEDS: CHLORHEXIDINE GLUCONATE 2 % 1 PACK (2 CLOTHS) TOP SCH (04:00)
[2018-02-01] MEDS: SODIUM CHLOR 0.45% 1000 ML INJ 1,000 ML IV SCH ×2 (06:55→14:37)
[2018-02-01] MEDS: ceFAZolin 1,000 MG/NS 100 ML IV SCH ×4 (07:56→16:24)
[2018-02-01] MEDS: SODIUM CHLORIDE 0.9% FLUSH 10 ML FLUSH IV FLUSH SCH ×2 (07:57→20:07)
[2018-02-01] MEDS: PANTOPRAZOLE SOD 40 MG DELAYED RELEASE TAB PO SCH (07:59)
[2018-02-01] MEDS: POLYETHYLENE GLYCOL 17 GM PKG PO SCH (08:00)
[2018-02-01] MEDS: ASPIRIN 325 MG TAB PO SCH (08:01)
[2018-02-01] MEDS: DOCUSATE SODIUM 50 MG/SENNA 8.6 MG TAB PO SCH ×2 (08:01→21:00)
[2018-02-01] MEDS: LACTULOSE SYRUP 20 GM/30 ML CUP PO SCH (08:02)
[2018-02-01] MEDS: PATIENT OWN MEDICATION PO SCH (08:03)
[2018-02-01] MEDS: MUPIROCIN 2% OINT 1 APPLIC/GM SYR EACH NARE SCH ×2 (08:04→20:07)
--- NOTE | 2018-02-01 10:41 | HHI.PR ---
Subjective Remarks Patient seen and examined this morning. BP elevated. Reports he has diarrhea. Breathing well. Denies CP or SOB. Objective Vital Signs Date Time Temp Pulse Resp B/P (MAP) Pulse Ox O2 Delivery O2 Flow Rate FiO2 02/01/18 08:00 97.9 80 16 170/78 (108) 98 02/01/18 00:00 97.8 60 16 171/76 (107) 94 01/31/18 20:00 97.4 79 16 141/68 (92) 99 01/31/18 19:45 77 01/31/18 16:00 98.6 84 19 151/72 (98) 96 01/31/18 12:00 98.3 88 18 165/71 (102) 96 I/O 01/31/18 01/31/18 01/31/18 02/01/18 02/01/18 02/01/18 07:00 15:00 23:00 07:00 15:00 23:00 Intake Total 960 ml Output Total 900 ml Balance 60 ml Intake Oral 960 ml Output Urine Total 900 ml # Voids 4 1 # Bowel Movements 1 3 Result Diagram: 01/28/18 0631 01/31/18 0852 Imaging Last Impressions Catheter Placement X-Ray 01/31/18 0000 Signed Impressions: Service Date/Time: Wednesday, January 31, 2018 17:20 - CONCLUSION: Uncomplicated Dc catheter placement as above. Nam Tinajero MD Renal Ultrasound 01/27/18 0000 Signed Impressions: Service Date/Time: Saturday, January 27, 2018 21:59 - CONCLUSION: Increased renal cortical echogenicity bilaterally. No hydronephrosis. Sylvester Estrella MD Chest X-Ray 01/21/18 0600 Signed Impressions: Service Date/Time: Sunday, January 21, 2018 03:50 - CONCLUSION: Normal examination. Right IJ Vas-Cath in good position Duncan Zaldivar MD Foot MRI 01/19/18 0000 Signed Impressions: Service Date/Time: Friday, January 19, 2018 12:36 - CONCLUSION: 1. 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 These findings are very similar to the prior study 2016. 2. Plantar cutaneous defect and extensive midfoot plantar superficial soft tissue edema extending into the plantar musculature. These findings are suspicious for infection in the proper clinical setting. Elongated adjacent more medial and distal plantar soft tissue ovoid fluid collection may represent a pseudo-bursa or abscess. More ill-defined edema is seen extending laterally to the base of the fifth metatarsal with likely early osteomyelitis at this location. This lateral extension is a new finding when compared to the prior study of 2016. 3. Posterior superficial soft tissue edema the heel with mild adjacent bony edema is very similar to the prior study with no definitive osteomyelitis. Ganga Luna MD Abdomen X-Ray 01/19/18 Signed Impressions: Service Date/Time: Friday, January 19, 2018 10:57 - CONCLUSION: Nonspecific bowel gas pattern. Mildly distended air-filled stomach. Ganga Luna MD Liver Ultrasound 01/16/18 Signed Impressions: Service Date/Time: January 16:59 - CONCLUSION: 1. Hepatomegaly and diffuse increased hepatic echogenicity without intrahepatic ductal dilatation or focal mass. Findings are most consistent with hepatic steatosis or medical liver disease. 2. Trace ascites. 3. Cholelithiasis with gallbladder wall prominence and trace pericholecystic fluid. These findings may be seen in the setting of chronic liver disease or ascites and significantly limit ultrasound evaluation for acute cholecystitis. If there is significant clinical concern regarding acute cholecystitis, HIDA scan may be performed to evaluate for cystic duct patency. Nam Tinajero MD Head CT 01/14/182000 Signed Impressions: Service Date/Time: Sunday, January 14, 2018 20:22 - CONCLUSION: Normal examination for a patient of this age. Marcio Hansen MD Lower Extremity CT 01/14/18 Signed Impressions: Service Date/Time: Sunday, January 14, 2018 23:38 - CONCLUSION: 1. CT findings characteristic of a severe Charcot foot in the mid and hindfoot with collapse of the plantar arch. Osteoarthritic changes of the first MTP joint 2. However, findings all appear to be chronic with no acute osseous injury Marquis Mcdonald MD Abdomen/Pelvis CT 01/14/18 Signed Impressions: Service Date/Time: Sunday, January 14, 2018 23:35 - CONCLUSION: 1. CT findings suggest volume overload or low oncotic pressures with some flank and mesenteric edema, gallbladder wall thickening and some free fluid in the pelvis. Heart size is somewhat prominent. 2. Bilateral symmetric gynecomastia. Nonspecific findings but can be associated with some chronic disease processes or medications. 3. Left periaortic borderline prominent lymph nodes. Again, nonspecific but may be reactive associated with the aforementioned mesenteric edema. 4. 5.7 cm periumbilical fatty hernia. There is now some fluid along the periphery of the hernia. This could be related to the generalized edema described above although fatty infarction could have a similar radiographic presentation. Please correlate with clinical symptomatology Marquis Mcdonald MD Procedures s/p bedside incision and drainage 01/20/18 s/p bilateral debridement and irrigation 01/22/18 wound vac placement to left foot Objective Remarks GENERAL: Sitting up in bed. Appears comfortable. No change on exam. SKIN: Warm and dry. HEAD: Normocephalic. EYES: No scleral icterus. No injection or drainage. NECK: Supple, trachea midline. No JVD. CARDIOVASCULAR: Regular rate and rhythm without murmurs, gallops, or rubs. RESPIRATORY: Breath sounds equal bilaterally. No accessory muscle use. GASTROINTESTINAL: Abdomen soft, non-tender, nondistended. MUSCULOSKELETAL: No cyanosis. Trace bilateral lower extremity edema. Bilateral feet are dressed. Wound VAC in place BACK: Nontender without obvious deformity. No CVA tenderness. A/P Problem List: (1) Cellulitis of lower extremity ICD Code: L03.119 - Cellulitis of unspecified part of limb (2) DM (diabetes mellitus) ICD Code: E11.9 - Type 2 diabetes mellitus without complications Status: Chronic (3) Renal insufficiency ICD Code: N28.9 - Disorder of kidney and ureter, unspecified Status: Acute (4) DM (diabetes mellitus) ICD Code: E11.9 - Type 2 diabetes mellitus without complications Status: Chronic (5) Chronic schizophrenia ICD Code: F20.9 - Schizophrenia, unspecified Status: Acute (6) Bacteremia due to Gram-positive bacteria ICD Code: R78.81 - Bacteremia Status: Acute Assessment and Plan Septic shock with group a strep septicemia, source is diabetic foot infection -Patient is status post debridement of both feet with wound VAC placement, podiatry is following, wound care following -Patient is currently on ceftezolin and, and date is February 27, 2019 per infectious disease. Per infectious disease after Dc catheter inserted patient to be discharged with arrangements for outpatient antibiotics to rehab facility. -Cultures as below 5/1 -blood cultures 2 beta strep group A 01/15 and 01/16 -wound -beta strep group A 01/16-01/17 -blood cultures 2 -no growth 01/17 -UA -no growth Schizophrenia PTSD -Resume home meds Nonoliguric AK I -Per nephro no indication for hemodialysis at this time, Vas-Cath DC'd -Patient had previously had hemodialysis on January 18 and January 20 Hep C antibody positive. Genotype not detected and viral load is pending. -This can be followed up as an outpatient Normocytic Anemia -Status post 2 units packed red blood cells on 01/21 and 01/23 Diabetes type 2 -Continue Levemir, continue supplemental scale -Glipizide 10 mg p.o. twice daily has been on hold C. Diff - stool positive for c diff 01/31 - started flagyl 500 mg PO q8 on 02/01 DVT prophylaxis Bilateral SCDs Discharge Planning Discharge is pending clearance of infectious disease, was previously cleared, now stool studies are positive for c.diff Josi Guerra MD February 01, 2018 10:41
[2018-02-01] MEDS: cloNIDine HCL 0.1 MG TAB PO PRN (16:26)
--- NOTE | 2018-02-01 17:07 | HHI.NPPN ---
Subjective General Problems: Edema Renal Failure: Acute Additional Remarks ongoing loose stools, no acute complaints Review of Systems General Constitutional: Fatigue Skin Skin Remarks wounds to bilateral feet. Objective Data Data 02/01/18 02/02/18 19:00 07:00 Output Total 1200 ml Balance -1200 ml Output Urine Total 1200 ml # Bowel Movements 1 Vital Signs Date Time Temp Pulse Resp B/P (MAP) Pulse Ox O2 Delivery O2 Flow Rate FiO2 02/01/18 16:00 97.8 89 18 146/69 (94) 99 02/01/18 13:55 79 02/01/18 12:00 98.5 81 18 168/74 (105) 98 02/01/18 10:00 97 21 02/01/18 08:00 97.9 80 16 170/78 (108) 98 02/01/18 00:00 97.8 60 16 171/76 (107) 94 01/31/18 20:00 97.4 79 16 141/68 (92) 99 01/31/18 19:45 77 -: 01/28/18 0631 01/31/18 0852 Tubes & Lines Comment wound vac bilateral feet Physical Exam General Appearance: No Acute Distress, Comfortable Ears & Nose Ears & Nose Exam: Tympanic Membranes Normal Throat Throat Exam: Oral Mucosa [place] & Moist Pulmonary Resp Exam: Breath Sounds Equal, No Distress Cardiology CV Exam: Normal Sinus Rhythm, Good Perfusion Gastrointestinal/Abdomen GI Exam: Soft, Non-Tender, Bowel Sounds Present Musculoskeletal MS Exam: Joints Intact, Normal Tone, Unable to Ambulate Integumentary Skin Exam: Warm, Dry, Tenting Extremeties Extremities Exam: Trace Edema Neurologic Neuro Exam: Alert, Awake, Speech Clear, Moving All Extremities Psychiatric Psych Exam: Appropriate Responses Assessment/Plan Discussed Condition With: Patient Assessment Summary: BISHOP/Acute Renal Failure Problem List: (1) Acute worsening of stage 3 chronic kidney disease ICD Codes: N18.3 - Chronic kidney disease, stage 3 (moderate) Plan: Renal US suggesting underlying CKD. Last year Creatinine was 1.7. BISHOP was ATN from sepsis. He required 2 dialysis sessions, on 01/18 and 01/20. Has some initial improvement in renal function but not as much as anticipated. He may be suffering from allergic interstitial nephritis due to antibiotic use; Worsening could also be due to persistent infection. IVF infusing, on 09/17 NS Repeat labs daily. Creatinine stable at 2.8 today. Patient voiding. Avoid nephrotoxic agents. Further dialysis not anticipated. Vascath was removed. (2) Sepsis ICD Codes: A41.9 - Sepsis, unspecified organism Status: Resolved Plan: ID following. On Cefazolin, stop date 02/27. Source is likely infected leg wounds. 4/4 blood cultures positive, wound culture also positive for Group B strep Monitor clinically. For discharge purposes, IJ Tunneled Dc can be used for antibiotic administration. . (3) Anemia ICD Codes: D64.9 - Anemia, unspecified Status: Chronic Plan: Hemoglobin is persistently low No significant bleeding at this time. continue to monitor. On oral Iron, avoid Venofer given recent sepsis. (4) Hyponatremia ICD Codes: E87.1 - Hypo-osmolality and hyponatremia Status: Acute Plan: Stable Monitor H xof psychogenic polydipsia. Problem Qualifiers (1) Sepsis: Qualified Codes: A41.9 - Sepsis, unspecified organism Darrell Freeman MD February 01, 2018 17:07
[2018-02-01] MEDS: metroNIDAZOLE 500 MG TAB PO SCH (21:53)
[2018-02-01] MEDS: LACTOBACILLUS ACIDOPHILUS TAB PO SCH (21:53)
[2018-02-02] VITALS (12 sets, daily range): BP systolic 120–162; BP diastolic 64–74; PULSE 72–98; RESP 14–18; TEMP 96.6–98.8; O2SAT 98–100
[2018-02-02] MEDS: CHLORHEXIDINE GLUCONATE 2 % 1 PACK (2 CLOTHS) TOP SCH ×2 (03:17→21:37)
[2018-02-02] MEDS: metroNIDAZOLE 500 MG TAB PO SCH ×3 (05:56→21:36)
[2018-02-02] MEDS: ceFAZolin 1,000 MG/NS 100 ML IV SCH ×4 (05:57→16:35)
[2018-02-02 07:17] LABS: BICARBONATE 21.3 MEQ/L (21.0-32.0); CALCIUM 8.7 MG/DL (8.5-10.1); CREATININE 2.61 MG/DL (0.60-1.30)
[2018-02-02 07:38] LABS: AUTOMATED NEUTROPHIL # 3.1 TH/MM3 (1.8-7.7); BASOPHIL % 0.9 % (0.0-2.0); EOSINOPHIL # 0.2 TH/MM3 (0-0.4); EOSINOPHIL % 2.8 % (0.0-4.0); LYMPH % 27.2 % (9.0-44.0); LYMPHOCYTE # 1.5 TH/MM3 (1.0-4.8); MEAN CELL VOLUME 89.6 FL (80.0-100.0); MEAN CORPUSCULAR HEMOGLOBIN 30.1 PG (27.0-34.0); MEAN CORPUSCULAR HGB CONC 33.6 % (32.0-36.0); MEAN PLATELET VOLUME 8.1 FL (7.0-11.0); MONO % 11.5 % (0.0-8.0); MONOCYTE # 0.6 TH/MM3 (0-0.9); NEUT % 57.6 % (16.0-70.0); PLATELET COUNT 282 TH/MM3 (150-450); RED CELL DISTRIBUTION WIDTH 15.4 % (11.6-17.2); WHITE BLOOD COUNT 5.4 TH/MM3 (4.0-11.0)
[2018-02-02 08:02] LABS: HEMATOCRIT 20.6 % (39.0-51.0); HEMOGLOBIN 6.9 GM/DL (13.0-17.0)
[2018-02-02] MEDS: SODIUM CHLORIDE 0.9% FLUSH 10 ML FLUSH IV FLUSH SCH ×2 (08:12→21:00)
[2018-02-02] MEDS: MUPIROCIN 2% OINT 1 APPLIC/GM SYR EACH NARE SCH ×2 (08:12→21:00)
[2018-02-02] MEDS: LACTOBACILLUS ACIDOPHILUS TAB PO SCH ×2 (08:13→21:36)
[2018-02-02] MEDS: ASPIRIN 325 MG TAB PO SCH (08:13)
[2018-02-02] MEDS: PANTOPRAZOLE SOD 40 MG DELAYED RELEASE TAB PO SCH (08:16)
[2018-02-02] MEDS: DOCUSATE SODIUM 50 MG/SENNA 8.6 MG TAB PO SCH ×2 (08:16→21:00)
[2018-02-02] MEDS: PATIENT OWN MEDICATION PO SCH (08:16)
[2018-02-02] MEDS: LACTULOSE SYRUP 20 GM/30 ML CUP PO SCH (08:17)
[2018-02-02] MEDS: POLYETHYLENE GLYCOL 17 GM PKG PO SCH (08:17)
[2018-02-02] MEDS: SODIUM CHLOR 0.45% 1000 ML INJ 1,000 ML IV SCH (08:18)
--- NOTE | 2018-02-02 08:59 | HHI.PR ---
Subjective Remarks Patient seen and examined this morning. Patient had some diarrhea yesterday. Nurse reported blood in stool yesterday. Hb this am is 6.9. Patient states he has not looked at his stool in the bed guy so is unable to say if he has seen blood in the stool. Feels tired and that he is not allowed to rest. Denies abdominal pain. Reports loose stool. Objective Vital Signs Date Time Temp Pulse Resp B/P (MAP) Pulse Ox O2 Delivery O2 Flow Rate FiO2 02/02/18 08:02 98.3 84 18 155/71 (99) 99 02/02/18 04:20 98.8 88 17 120/64 (82) 98 02/02/18 00:20 97.6 89 18 130/69 (89) 98 02/01/18 20:30 98.8 97 17 133/61 (85) 97 02/01/18 16:00 97.8 89 18 146/69 (94) 99 02/01/18 13:55 79 02/01/18 12:00 98.5 81 18 168/74 (105) 98 02/01/18 10:00 97 21 I/O 02/01/18 02/01/18 02/01/18 02/02/18 02/02/18 02/02/18 07:00 15:00 23:00 07:00 15:00 23:00 Intake Total 900 ml 1100 ml Output Total 1200 ml 850 ml 1500 ml Balance -1200 ml 50 ml -400 ml Intake Oral 900 ml 1100 ml Output Urine Total 1200 ml 850 ml 1500 ml # Bowel Movements 1 2 6 6 Result Diagram: 02/02/18 0600 02/02/18 0600 Procedures s/p bedside incision and drainage 01/20/18 s/p bilateral debridement and irrigation 01/22/18 wound vac placement to left foot Objective Remarks GENERAL: Laying in bed. Appears comfortable. SKIN: Warm and dry. Appears pale this am. HEAD: Normocephalic. EYES: No scleral icterus. No injection or drainage. NECK: Supple, trachea midline. No JVD. CARDIOVASCULAR: Regular rate and rhythm without murmurs, gallops, or rubs. RESPIRATORY: Breath sounds equal bilaterally. No accessory muscle use. GASTROINTESTINAL: Abdomen soft, non-tender, nondistended. MUSCULOSKELETAL: No cyanosis. Trace bilateral lower extremity edema. Bilateral feet are dressed. Wound VAC in place BACK: Nontender without obvious deformity. No CVA tenderness. A/P Problem List: (1) Cellulitis of lower extremity ICD Code: L03.119 - Cellulitis of unspecified part of limb (2) DM (diabetes mellitus) ICD Code: E11.9 - Type 2 diabetes mellitus without complications Status: Chronic (3) Renal insufficiency ICD Code: N28.9 - Disorder of kidney and ureter, unspecified Status: Acute (4) DM (diabetes mellitus) ICD Code: E11.9 - Type 2 diabetes mellitus without complications Status: Chronic (5) Chronic schizophrenia ICD Code: F20.9 - Schizophrenia, unspecified Status: Acute (6) Bacteremia due to Gram-positive bacteria ICD Code: R78.81 - Bacteremia Status: Acute Assessment and Plan Septic shock with group a strep septicemia, source is diabetic foot infection -Patient is status post debridement of both feet with wound VAC placement, podiatry is following, wound care following -Patient is currently on ceftezolin and, and date is February 27, 2019 per infectious disease. Per infectious disease after Dc catheter inserted patient to be discharged with arrangements for outpatient antibiotics to rehab facility. -Cultures as below 01/14 -blood cultures 2 beta strep group A 01/15 and 01/16 -wound -beta strep group A 01/16-01/17 -blood cultures 2 -no growth 01/17 -UA -no growth Schizophrenia PTSD -Resume home meds Nonoliguric AK I -Per nephro no indication for hemodialysis at this time, Vas-Cath DC'd -Patient had previously had hemodialysis on January 18 and January 20 Hep C antibody positive. Genotype not detected and viral load is pending. -This can be followed up as an outpatient Normocytic Anemia, GI Bleed -Status post 2 units packed red blood cells on 01/21 and 01/23 - additional 2 units give on 02/02, patient with bright red blood per rectum, will consult GI Diabetes type 2 -Continue Levemir, continue supplemental scale -Glipizide 10 mg p.o. twice daily has been on hold C. Diff - stool positive for c diff 01/31 - started flagyl 500 mg PO q8 on 02/01 DVT prophylaxis Bilateral SCDs Hold on chemical prophylaxis due to concern for GI bleed Discharge Planning Discharge is pending clearance of infectious disease, was previously cleared, now stool studies are positive for c.diff Josi Guerra MD February 02, 2018 08:59
[2018-02-02] MEDS ORDERED: SODIUM CHLOR 0.9% 250 ML INJ 250 ML IV ONE (09:00)
--- NOTE | 2018-02-02 13:57 | HHI.GIFU ---
Subjective Remarks This is a reconsult- We have been asked to see pt for decline in hgb and rectal bleed. (Eyal Price) Objective Vitals I&O Vital Signs Date Time Temp Pulse Resp B/P (MAP) Pulse Ox O2 Delivery O2 Flow Rate FiO2 02/02/18 12:00 98.0 84 18 149/70 (96) 98 02/02/18 09:53 99 21 02/02/18 08:02 98.3 84 18 155/71 (99) 99 02/02/18 04:20 98.8 88 17 120/64 (82) 98 02/02/18 00:20 97.6 89 18 130/69 (89) 98 02/01/18 20:30 98.8 97 17 133/61 (85) 97 02/01/18 16:00 97.8 89 18 146/69 (94) 99 02/01/18 13:55 79 I/O 02/01/18 02/01/18 02/01/18 02/02/18 02/02/18 02/02/18 07:00 15:00 23:00 07:00 15:00 23:00 Intake Total 900 ml 1100 ml Output Total 1200 ml 850 ml 1500 ml Balance -1200 ml 50 ml -400 ml Intake Oral 900 ml 1100 ml Output Urine Total 1200 ml 850 ml 1500 ml # Bowel Movements 1 2 6 7 Laboratory Laboratory Tests Test 02/02/18 06:00 White Blood Count 5.4 Red Blood Count 2.30 Hemoglobin 6.9 Hematocrit 20.6 Mean Corpuscular Volume 89.6 Mean Corpuscular Hemoglobin 30.1 Mean Corpuscular Hemoglobin Concent 33.6 Red Cell Distribution Width 15.4 Platelet Count 282 Mean Platelet Volume 8.1 Neutrophils (%) (Auto) 57.6 Lymphocytes (%) (Auto) 27.2 Monocytes (%) (Auto) 11.5 Eosinophils (%) (Auto) 2.8 Basophils (%) (Auto) 0.9 Neutrophils # (Auto) 3.1 Lymphocytes # (Auto) 1.5 Monocytes # (Auto) 0.6 Eosinophils # (Auto) 0.2 Basophils # (Auto) 0.0 CBC Comment DIFF FINAL Differential Comment Blood Urea Nitrogen 31 Creatinine 2.61 Random Glucose 129 Calcium Level 8.7 Sodium Level 137 Potassium Level 4.1 Chloride Level 109 Carbon Dioxide Level 21.3 Anion Gap 7 Estimat Glomerular Filtration Rate 26 Date/Time Source Procedure Growth Status 01/17/18 10:55 Blood Peripheral Aerobic Blood Culture - Final NO GROWTH IN 5 DAYS Complete 01/17/18 10:55 Blood Peripheral Anaerobic Blood Culture - Final NO GROWTH IN 5 DAYS Complete 01/17/18 13:15 Urine Catheterized Urine Urine Culture - Final NO GROWTH IN 48 HOURS. Complete 01/22/18 20:18 Wound Foot Fungal Smear - Final NO FUNGAL ELEMENTS SEEN. Resulted 01/22/18 20:18 Wound Foot Fungal Culture - Preliminary NO GROWTH IN 1 WEEK Resulted Imaging Last Impressions Catheter Placement X-Ray 01/31/18 0000 Signed Impressions: Service Date/Time: Wednesday, January 31, 2018 17:20 - CONCLUSION: Uncomplicated Dc catheter placement as above. Nam Tinajero MD Renal Ultrasound 01/27/18 0000 Signed Impressions: Service Date/Time: Saturday, January 27, 2018 21:59 - CONCLUSION: Increased renal cortical echogenicity bilaterally. No hydronephrosis. Sylvester Estrella MD Chest X-Ray 01/21/18 0600 Signed Impressions: Service Date/Time: Sunday, January 21, 2018 03:50 - CONCLUSION: Normal examination. Right IJ Vas-Cath in good position Duncan Zaldivar MD Foot MRI 01/19/18 0000 Signed Impressions: Service Date/Time: Friday, January 19, 2018 12:36 - CONCLUSION: 1. 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 These findings are very similar to the prior study 2016. 2. Plantar cutaneous defect and extensive midfoot plantar superficial soft tissue edema extending into the plantar musculature. These findings are suspicious for infection in the proper clinical setting. Elongated adjacent more medial and distal plantar soft tissue ovoid fluid collection may represent a pseudo-bursa or abscess. More ill-defined edema is seen extending laterally to the base of the fifth metatarsal with likely early osteomyelitis at this location. This lateral extension is a new finding when compared to the prior study of 2016. 3. Posterior superficial soft tissue edema the heel with mild adjacent bony edema is very similar to the prior study with no definitive osteomyelitis. Ganga Luna MD Abdomen X-Ray 01/19/18 0000 Signed Impressions: Service Date/Time: Friday, January 19, 2018 10:57 - CONCLUSION: Nonspecific bowel gas pattern. Mildly distended air-filled stomach. Ganga Luna MD Liver Ultrasound 01/16/18 Signed Impressions: Service Date/Time: January 16:59 - CONCLUSION: 1. Hepatomegaly and diffuse increased hepatic echogenicity without intrahepatic ductal dilatation or focal mass. Findings are most consistent with hepatic steatosis or medical liver disease. 2. Trace ascites. 3. Cholelithiasis with gallbladder wall prominence and trace pericholecystic fluid. These findings may be seen in the setting of chronic liver disease or ascites and significantly limit ultrasound evaluation for acute cholecystitis. If there is significant clinical concern regarding acute cholecystitis, HIDA scan may be performed to evaluate for cystic duct patency. Nam Tinajero MD Head CT 01/14/182000 Signed Impressions: Service Date/Time: Sunday, January 14, 2018 20:22 - CONCLUSION: Normal examination for a patient of this age. Marcio Hansen MD Lower Extremity CT 01/14/18 Signed Impressions: Service Date/Time: Sunday, January 14, 2018 23:38 - CONCLUSION: 1. CT findings characteristic of a severe Charcot foot in the mid and hindfoot with collapse of the plantar arch. Osteoarthritic changes of the first MTP joint 2. However, findings all appear to be chronic with no acute osseous injury Marquis Mcdonald MD Abdomen/Pelvis CT 01/14/18 Signed Impressions: Service Date/Time: Sunday, January 14, 2018 23:35 - CONCLUSION: 1. CT findings suggest volume overload or low oncotic pressures with some flank and mesenteric edema, gallbladder wall thickening and some free fluid in the pelvis. Heart size is somewhat prominent. 2. Bilateral symmetric gynecomastia. Nonspecific findings but can be associated with some chronic disease processes or medications. 3. Left periaortic borderline prominent lymph nodes. Again, nonspecific but may be reactive associated with the aforementioned mesenteric edema. 4. 5.7 cm periumbilical fatty hernia. There is now some fluid along the periphery of the hernia. This could be related to the generalized edema described above although fatty infarction could have a similar radiographic presentation. 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 hgb today 6.9, 2 units ordered and pending Pt with hx of CKD and that could be a contribution, by report, pt had colonoscopy approx. 4 yrs ago - C-diff- On Flagyl,, having 2-3 mushy BMs a day - CKD- required 2 sessions of HD - Septic shock with group a strep septicemia, source is diabetic foot infection , s/p I&D and wound VAC placement - Hep C antibody positive. Genotype not detected and viral load is < 15- No hep -C, indicates spont. clearance of virus Plan: - Clear liquid - EGD/colonoscopy in the am - Golytely today - NPO mn - Monitor hh - Transfuse as needed - Notify Gi for active bleed Pt has been seen and examined by myself and and this note is on her behalf (Eyal Price) Physician Comments SEEN, EXAMINED AGREE WITH ABOVE STATES HE DOES NOT WISH TO HAVE EGD/COLON (Shira Moody MD) Eyal Price February 02, 2018 13:57 Shira Moody MD February 02, 2018 19:55
--- NOTE | 2018-02-02 14:07 | HHI.NPPN ---
Subjective General Problems: Edema Renal Failure: Acute Additional Remarks ongoing loose stools, transfusion ordered for rectal bleeding Review of Systems General Constitutional: Fatigue Skin Skin Remarks wounds to bilateral feet. Objective Data Data 02/02/18 02/03/18 19:00 07:00 # Bowel Movements 7 Vital Signs Date Time Temp Pulse Resp B/P (MAP) Pulse Ox O2 Delivery O2 Flow Rate FiO2 02/02/18 12:00 98.0 84 18 149/70 (96) 98 02/02/18 09:53 99 21 02/02/18 08:02 98.3 84 18 155/71 (99) 99 02/02/18 04:20 98.8 88 17 120/64 (82) 98 02/02/18 00:20 97.6 89 18 130/69 (89) 98 02/01/18 20:30 98.8 97 17 133/61 (85) 97 02/01/18 16:00 97.8 89 18 146/69 (94) 99 -: 02/02/18 0600 02/02/18 0600 Tubes & Lines Comment wound vac bilateral feet Physical Exam General Appearance: No Acute Distress, Comfortable Ears & Nose Ears & Nose Exam: Tympanic Membranes Normal Throat Throat Exam: Oral Mucosa [place] & Moist Pulmonary Resp Exam: Breath Sounds Equal, No Distress Cardiology CV Exam: Normal Sinus Rhythm, Good Perfusion Gastrointestinal/Abdomen GI Exam: Soft, Non-Tender, Bowel Sounds Present Musculoskeletal MS Exam: Joints Intact, Normal Tone, Unable to Ambulate Integumentary Skin Exam: Warm, Dry, Tenting Extremeties Extremities Exam: Trace Edema Neurologic Neuro Exam: Alert, Awake, Speech Clear, Moving All Extremities Psychiatric Psych Exam: Appropriate Responses Assessment/Plan Discussed Condition With: Patient Assessment Summary: BISHOP/Acute Renal Failure Problem List: (1) Acute worsening of stage 3 chronic kidney disease ICD Codes: N18.3 - Chronic kidney disease, stage 3 (moderate) Plan: Renal US suggesting underlying CKD. Last year Creatinine was 1.7. BISHOP was ATN from sepsis. He required 2 dialysis sessions, on 01/18 and 01/20. Has some initial improvement in renal function but not as much as anticipated. He may be suffering from allergic interstitial nephritis due to antibiotic use; Worsening could also be due to persistent infection. IVF infusing, on 09/17 NS Repeat labs daily. Creatinine improvin.8-> 2.6 today. Patient voiding. Avoid nephrotoxic agents. Further dialysis not anticipated. Vascath was removed. Apparent rectal bleeding - 2U PRBCs today, EGD/colonoscopy planned in AM (2) Sepsis ICD Codes: A41.9 - Sepsis, unspecified organism Status: Resolved Plan: ID following. On Cefazolin, stop date 02/27. Source is likely infected leg wounds. 4/4 blood cultures positive, wound culture also positive for Group B strep Monitor clinically. For discharge purposes, IJ Tunneled Dc can be used for antibiotic administration. . (3) Anemia ICD Codes: D64.9 - Anemia, unspecified Status: Chronic Plan: 2u PRBCs today, apparent rectal bleeding. Planned endoscopy in AM. On oral Iron, avoid Venofer given recent sepsis. (4) Hyponatremia ICD Codes: E87.1 - Hypo-osmolality and hyponatremia Status: Acute Plan: Stable Monitor H xof psychogenic polydipsia. Problem Qualifiers (1) Sepsis: Qualified Codes: A41.9 - Sepsis, unspecified organism Darrell Freeman MD February 02, 2018 14:07
[2018-02-02] MEDS ORDERED: PEG (High)/E-LYTE SOLN 4000 ML BTL PO ONE (16:00)
[2018-02-02] MEDS ORDERED: CHLORHEXIDINE GLUCONATE 2 % 1 PACK (2 CLOTHS) TOPICAL PRN (23:15)
[2018-02-02] MEDS ORDERED: LACTATED RINGER'S 1000 ML IV PRN (23:15)
[2018-02-02] MEDS ORDERED: SODIUM CHLORID 0.9% 500 ML IV PRN (23:15)
[2018-02-02] MEDS ORDERED: POVIDONE IODINE 5% (ANTISEPSIS KIT) 4 APPLICATIONS EACH NARE PRN (23:15)
[2018-02-03] VITALS (10 sets, daily range): BP systolic 122–168; BP diastolic 62–80; PULSE 84–101; RESP 18–20; TEMP 97.6–98.9; O2SAT 97–100
[2018-02-03 00:51] LABS: HEMATOCRIT 26.4 % (39.0-51.0); HEMOGLOBIN 8.9 GM/DL (13.0-17.0)
[2018-02-03] MEDS: metroNIDAZOLE 500 MG TAB PO SCH ×3 (05:14→22:11)
[2018-02-03] MEDS: ceFAZolin 1,000 MG/NS 100 ML IV SCH ×4 (05:14→17:43)
[2018-02-03 05:48] LABS: AUTOMATED NEUTROPHIL # 2.4 TH/MM3 (1.8-7.7); BASOPHIL % 0.8 % (0.0-2.0); EOSINOPHIL # 0.1 TH/MM3 (0-0.4); EOSINOPHIL % 2.5 % (0.0-4.0); HEMATOCRIT 25.2 % (39.0-51.0); HEMOGLOBIN 8.4 GM/DL (13.0-17.0); LYMPH % 32.7 % (9.0-44.0); LYMPHOCYTE # 1.6 TH/MM3 (1.0-4.8); MEAN CELL VOLUME 88.6 FL (80.0-100.0); MEAN CORPUSCULAR HEMOGLOBIN 29.4 PG (27.0-34.0); MEAN CORPUSCULAR HGB CONC 33.2 % (32.0-36.0); MEAN PLATELET VOLUME 7.8 FL (7.0-11.0); MONO % 13.2 % (0.0-8.0); MONOCYTE # 0.6 TH/MM3 (0-0.9); NEUT % 50.8 % (16.0-70.0); PLATELET COUNT 242 TH/MM3 (150-450); RED BLOOD COUNT 2.84 MIL/MM3 (4.50-5.90); RED CELL DISTRIBUTION WIDTH 14.8 % (11.6-17.2); WHITE BLOOD COUNT 4.8 TH/MM3 (4.0-11.0)
[2018-02-03 06:08] LABS: BICARBONATE 22.5 MEQ/L (21.0-32.0); CALCIUM 8.7 MG/DL (8.5-10.1); CREATININE 2.28 MG/DL (0.60-1.30)
[2018-02-03] MEDS: PATIENT OWN MEDICATION PO SCH (07:35)
[2018-02-03] MEDS: DOCUSATE SODIUM 50 MG/SENNA 8.6 MG TAB PO SCH ×2 (07:35→21:00)
[2018-02-03] MEDS: POLYETHYLENE GLYCOL 17 GM PKG PO SCH (07:35)
[2018-02-03] MEDS: LACTULOSE SYRUP 20 GM/30 ML CUP PO SCH (07:35)
[2018-02-03] MEDS: ASPIRIN 325 MG TAB PO SCH (07:35)
[2018-02-03] MEDS: PANTOPRAZOLE SOD 40 MG DELAYED RELEASE TAB PO SCH (07:39)
[2018-02-03] MEDS: LACTOBACILLUS ACIDOPHILUS TAB PO SCH ×3 (07:39→21:00)
[2018-02-03] MEDS: MUPIROCIN 2% OINT 1 APPLIC/GM SYR EACH NARE SCH ×2 (07:40→21:00)
[2018-02-03] MEDS: SODIUM CHLORIDE 0.9% FLUSH 10 ML FLUSH IV FLUSH SCH ×2 (07:40→22:12)
--- NOTE | 2018-02-03 11:28 | PD.WCN.NOT ---
Wound Consult Description: Left foot wound was measured as one wound. Recommendation: 1. Please cleanse wounds to right foot with normal saline or wound cleanser and cover open wounds with Maxorb Extra AG and cover with ABD pads, and secure with rolled gauze and OSEI wrap (not for compression). 2. Change dressing on right foot every 3-5 days and PRN for saturation or dislodgement. Place right foot in heel raiser boots for DTI to posterior heel. *All DTI's noted to right dorsal foot, right lateral foot, right posterior heel , left posterior heel were skin prepped with Cavilon skin barrier film and allowed to air dry prior to covering with dry covers. 1. Change VAC dressing to left foot as ordered. 2. Reinforce wound VAC dressing to left foot using VAC drape available in room if notified of leak alarming. If unable to obtain a seal after 2 hours, per protocol, the black granufoam must be removed and a moist to dry dressing applied. Contact Podiatry if this occurs Patient is noted with charcot foot bilaterally. Right foot plantar wound measures 3.4cm x 2.6cm x 0.3cm with a red boggy wound base and 100% red non granulating tissue. Wound margins are sharp from previous debridement by Dr Vivar. Wound was cleansed with wound cleanser and gauze. Maxorb Extra AG was placed over wound bed, right lateral heel DTI, right dorsal DTI, and right posterior heel DTI and then secured with rolled gauze and OSEI wrap prior to placing in blue heel raiser boots to keep heel off mattress surface. Neg Pressure Wound Therapy Wound Location Wound Location: Left foot wound was measured as one wound. Wound Description Length: 4.2cm Width: 8.8cm Depth: 1cm Underminin cm @ 5 o'clock Wound bed appearance: 100% moist red vascular granulation tissue Settings Suction: 125 mmHg, Continuous Intensity: Low Other Information: Windowpaned Foam type: Black Number of pieces: 1 Additonal Information Patient was seen today by board writer for routine wound vac change.Patient alert in bed with no complaints of distress.Dressing removed from left foot without difficulty.Wound cleansed with normal saline pat dry skin prep.Maxorb applied to macerated periwound and covered with drape.Stoma paste applied to periwound, single piece of black sponge applied to wound base and covered with track pad suction started @125mmHg low continuous suction with no leaks noted left foot secured with Osei wrap sign and dated.Patient tolerated wound care well. Lore Toney [facility] February 03, 2018 11:28
--- NOTE | 2018-02-03 11:30 | HHI.NPPN ---
Subjective General Problems: Edema Renal Failure: Acute Additional Remarks He is NPO for EGD/colonoscopy today. Renal function improved. (Laura Quesada) Review of Systems General Constitutional: Fatigue (Laura Quesada) Skin Skin Remarks wounds to bilateral feet. (Laura Quesada) Objective Data Data 02/03/18 02/04/18 19:00 07:00 Output Total 200 ml Balance -200 ml Output Urine Total 200 ml # Bowel Movements 1 Vital Signs Date Time Temp Pulse Resp B/P (MAP) Pulse Ox O2 Delivery O2 Flow Rate FiO2 02/03/18 08:42 101 02/03/18 08:25 98.9 95 20 168/72 (104) 99 02/03/18 05:30 97.6 84 20 130/80 (97) 97 02/03/18 00:20 98.8 88 18 128/80 (96) 98 02/03/18 00:00 91 02/02/18 22:23 98.4 98 14 160/67 98 02/02/18 20:00 97.2 89 14 153/66 99 02/02/18 19:47 97.4 94 16 160/67 02/02/18 16:00 98.0 82 18 157/72 (100) 98 02/02/18 15:08 96.6 72 16 162/72 (102) 100 02/02/18 15:01 94 02/02/18 14:52 97.0 87 18 158/74 (102) 99 02/02/18 12:00 98.0 84 18 149/70 (96) 98 (Laura Quesada) -: 02/03/18 0530 02/03/18 0530 Physical Exam General Appearance: No Acute Distress, Comfortable Appearance Remarks disheveled, appears older than stated age (Laura Quesada) Eyes Eye Exam: Pupils Equal, Pupils Reactive (Laura Quesada) Ears & Nose Ears & Nose Exam: Tympanic Membranes Normal (Laura Quesada) Throat Throat Exam: Oral Mucosa [place] & Moist (Laura Quesada) Pulmonary Resp Exam: Breath Sounds Equal, No Distress (Laura Quesada) Cardiology CV Exam: Normal Sinus Rhythm, Good Perfusion (Laura Quesada) Gastrointestinal/Abdomen GI Exam: Soft, Non-Tender, Bowel Sounds Present, Positive Bowel Movement (Laura Quesada) Musculoskeletal MS Exam: Joints Intact, Normal Tone, Unable to Ambulate (Laura Quesada) Integumentary Skin Exam: Warm, Dry, Tenting Skin Remarks wound on bilateral feet/heals , dressings in place Wound vac in place (Laura Quesada) Extremeties Extremities Exam: Trace Edema (Laura Quesada) Neurologic Neuro Exam: Alert, Awake, Speech Clear, Moving All Extremities (Laura Quesada) Psychiatric Psych Exam: Appropriate Responses (Laura Quesada) Assessment/Plan Discussed Condition With: Patient Assessment Summary: BISHOP/Acute Renal Failure Problem List: (1) Acute worsening of stage 3 chronic kidney disease ICD Codes: N18.3 - Chronic kidney disease, stage 3 (moderate) Plan: Renal US suggesting underlying CKD. Unknown baseline, last year Creatinine was 1.7. BISHOP was ATN from sepsis. He required 2 dialysis sessions, on 01/18 and 01/20. Has some initial improvement in renal function but not as much as anticipated. Possible AIN due to antibiotic use with acute worsening could also be due to persistent infection. Off IVF , encouraged fluids when no longer NPO Renal function is slightly better. Repeat labs, avoid nephrotoxic agents. (2) Sepsis ICD Codes: A41.9 - Sepsis, unspecified organism Status: Resolved Plan: ID following. On Cefazolin, stop date 02/27. Source is likely infected leg wounds. 4/4 blood cultures positive, wound culture also positive for Group B strep Monitor clinically. For discharge purposes, IJ Tunneled Dc can be used for antibiotic administration. . (3) Anemia ICD Codes: D64.9 - Anemia, unspecified Status: Chronic Plan: 2u PRBCs given, with new rectal bleeding. Planned endoscopy today On oral Iron, avoid Venofer given recent sepsis. (4) Hyponatremia ICD Codes: E87.1 - Hypo-osmolality and hyponatremia Status: Acute Plan: Stable Monitor H xof psychogenic polydipsia. (Laura Quesada) Plan patient was seen and examined. Agree with above assessment and plan. (Shaun Mcmahon MD) Problem Qualifiers (1) Sepsis: Qualified Codes: A41.9 - Sepsis, unspecified organism Laura Quesada February 03, 2018 11:30 Shaun Mcmahon MD February 03, 2018 15:25
[2018-02-03] MEDS ORDERED: PROPOFOL 200 MG/20 ML AMP IV ONE (12:00)
--- NOTE | 2018-02-03 12:43 | HHI.PR ---
Subjective Remarks No complaints today ready to go for EGD colonoscopy states that he did complete the prep. Had loose stools overnight. Objective Vitals Vital Signs Date Time Temp Pulse Resp B/P (MAP) Pulse Ox O2 Delivery O2 Flow Rate FiO2 02/03/18 12:29 89 02/03/18 11:55 98.9 99 20 122/62 (82) 97 02/03/18 08:42 101 02/03/18 08:25 98.9 95 20 168/72 (104) 99 02/03/18 05:30 97.6 84 20 130/80 (97) 97 02/03/18 00:20 98.8 88 18 128/80 (96) 98 02/03/18 00:00 91 02/02/18 22:23 98.4 98 14 160/67 98 02/02/18 20:00 97.2 89 14 153/66 99 02/02/18 19:47 97.4 94 16 160/67 02/02/18 16:00 98.0 82 18 157/72 (100) 98 02/02/18 15:08 96.6 72 16 162/72 (102) 100 02/02/18 15:01 94 02/02/18 14:52 97.0 87 18 158/74 (102) 99 I/O 02/02/18 02/02/18 02/02/18 02/03/18 02/03/18 02/03/18 07:00 15:00 23:00 07:00 15:00 23:00 Intake Total 1100 ml 2070 ml 400 ml Output Total 1500 ml 300 ml 1400 ml 900 ml 675 ml Balance -400 ml -300 ml 670 ml -500 ml -675 ml Intake Oral 1100 ml 1000 ml 400 ml Packed Cells 800 ml Blood Product IV Normal Saline Flush 270 ml Output Urine Total 1500 ml 300 ml 1400 ml 900 ml 675 ml # Voids 1 # Bowel Movements 6 8 7 3 1 Result Diagram: 02/03/1852902/03/18529 Other Results Microbiology Date/Time Source Procedure Growth Status 01/17/18 10:55 Blood Peripheral Aerobic Blood Culture - Final NO GROWTH IN 5 DAYS Complete 01/17/18 10:55 Blood Peripheral Anaerobic Blood Culture - Final NO GROWTH IN 5 DAYS Complete 01/17/18 13:15 Urine Catheterized Urine Urine Culture - Final NO GROWTH IN 48 HOURS. Complete 01/22/18 20:18 Wound Foot Fungal Smear - Final NO FUNGAL ELEMENTS SEEN. Resulted 01/22/18 20:18 Wound Foot Fungal Culture - Preliminary NO GROWTH IN 1 WEEK Resulted Objective Remarks GENERAL: This is a well-nourished, well-developed patient, in no apparent distress. CARDIOVASCULAR: Regular rate and rhythm RESPIRATORY: Clear to auscultation. Breath sounds equal bilaterally. No wheezes , rales, or rhonchi. GASTROINTESTINAL: Abdomen soft, non-tender, nondistended. Normal active bowel sounds NEURO: Alert & Oriented x4 to person, place, time, situation. Moves all ext x4 Procedures Vas-cath placement/ debridement of both feet/ wound vac placement. IJ Dc A/P Assessment and Plan Septic shock due to Group A strep septicemia from diabetic foot infection - resolved Diabetic foot infection and abscess status post drainage and debridement on 01/20 s/p debridement of both feet along with wound vac placement- podiatry following. wound care consulted. wound vac management per podiatry/ wound care. On cefazolin till - ID following. Antibiotics be given through IJ Dc per nephrology and infectious disease. Pertinent microbiology 01/14 -blood cultures 2 beta strep group A 01/15 and 01/16 -wound -beta strep group A 01/16-01/17 -blood cultures 2 -no growth 01/17 -UA -no growth Metabolic encephalopathy secondary to sepsis -resolved. Schizophrenia Posttraumatic stress disorder resumed home meds. History of hypertension, essential and chronic resumed Amlodipine continue to monitor BP and adjust the regimen as needed. Nonoliguric BISHOP -improved creatinine today per renal no indication for hemodialysis at this time Hypokalemia -resolved and now with mild hyperkalemic will continue to monitor 01/16 Lasix 40 mg IV 1 dose 01/17 vascular cath placement now removed had HD on 01/18 and 01/20- HD on hold for now per nephrology. continue to monitor renal function. Nephrology following- and Avoid nephrotoxic drugs Hepatitis C antibody positive. Genotype not detected and viral load pending Elevated LFTs- Shock Liver Hepatomegaly Cholelithiasis Monitor CMP 01/16 ultrasound of the liver- Trace ascites. Findings most consistent with hepatic steatosis or liver disease. Cholelithiasis with gallbladder wall prominence but trace pericholecystic fluid Hepatitis C IgG antibody positive GI consulted appreciate recommendations; f/u with GI as outpatient. Noted VICKIE positive. Normocytic anemia - Coagulopathy - Transfused 2 units PRBC on 01/21 and 01/23 Transfused 2 units FFP on 01/21 as well continue to monitor H/H Transfused another unit packed red blood cells on 02/02 For EGD and colonoscopy today due to continued drop in hemoglobin. Diabetes mellitus type 2 resumed diet - Levemir on hold secondary to n.p.o. status Glipizide 10 mg p.o. twice daily home medication held GI Prophylaxis Pantoprazole DVT Prophylaxis -- SCDs Teds and SCDs. Heparin SQ on hold in the setting of elevated INR, rule out underlying GI bleed. Cece Brock MD February 03, 2018 12:43
--- NOTE | 2018-02-03 15:31 | HHI.IDPN ---
Note Infectious Disease Note Patient noted to have bloody stools. No longer has neck stiffness. No distress. Frequent loose stools and positive c dif. No chills or abdominal pain. Afebrile. Going for colonoscopy shortly. Admitted with altered mental status. In the emergency department, his blood pressure was 85/53. The white blood cell count was elevated at 27 and lactic acid level of 3.1. PAST MEDICAL HISTORY: 1. Hypertension. 2. Anxiety/depression. 3. Hiatal hernia. 4. Schizophrenia. 5. Diabetes mellitus. 6. Charcot deformity of the feet. 7. A left pelvic fracture. 8. History of abscess of the right foot. ALLERGIES: VANCOMYCIN, LEVAQUIN, HALOPERIDOL, FLUPHENAZINE, CODEINE. MEDICATIONS: Antibiotics: Ancef. Flagyl. SOCIAL HISTORY: Positive alcohol use reportedly daily. No tobacco. No illicit drugs. Objective: Vital Signs Date Time Temp Pulse Resp B/P (MAP) Pulse Ox O2 Delivery O2 Flow Rate FiO2 02/03/18 12:29 89 02/03/18 11:55 98.9 99 20 122/62 (82) 97 02/03/18 08:42 101 02/03/18 08:25 98.9 95 20 168/72 (104) 99 02/03/18 05:30 97.6 84 20 130/80 (97) 97 02/03/18 00:20 98.8 88 18 128/80 (96) 98 02/03/18 00:00 91 02/02/18 22:23 98.4 98 14 160/67 98 02/02/18 20:00 97.2 89 14 153/66 99 02/02/18 19:47 97.4 94 16 160/67 02/02/18 16:00 98.0 82 18 157/72 (100) 98 Laboratory Tests Test 02/02/18 06:00 02/03/18 00:39 02/03/18 05:30 White Blood Count 5.4 TH/MM3 4.8 TH/MM3 Red Blood Count 2.30 MIL/MM3 2.84 MIL/MM3 Hemoglobin 6.9 GM/DL 8.9 GM/DL 8.4 GM/DL Hematocrit 20.6 % 26.4 % 25.2 % Mean Corpuscular Volume 89.6 FL 88.6 FL Mean Corpuscular Hemoglobin 30.1 PG 29.4 PG Mean Corpuscular Hemoglobin Concent 33.6 % 33.2 % Red Cell Distribution Width 15.4 % 14.8 % Platelet Count 282 TH/MM3 242 TH/MM3 Mean Platelet Volume 8.1 FL 7.8 FL Neutrophils (%) (Auto) 57.6 % 50.8 % Lymphocytes (%) (Auto) 27.2 % 32.7 % Monocytes (%) (Auto) 11.5 % 13.2 % Eosinophils (%) (Auto) 2.8 % 2.5 % Basophils (%) (Auto) 0.9 % 0.8 % Neutrophils # (Auto) 3.1 TH/MM3 2.4 TH/MM3 Lymphocytes # (Auto) 1.5 TH/MM3 1.6 TH/MM3 Monocytes # (Auto) 0.6 TH/MM3 0.6 TH/MM3 Eosinophils # (Auto) 0.2 TH/MM3 0.1 TH/MM3 Basophils # (Auto) 0.0 TH/MM3 0.0 TH/MM3 CBC Comment DIFF FINAL DIFF FINAL Differential Comment Laboratory Tests Test 02/02/18 06:00 02/03/18 05:30 Blood Urea Nitrogen 31 MG/DL 26 MG/DL Creatinine 2.61 MG/DL 2.28 MG/DL Random Glucose 129 MG/DL 68 MG/DL Calcium Level 8.7 MG/DL 8.7 MG/DL Sodium Level 137 MEQ/L 138 MEQ/L Potassium Level 4.1 MEQ/L 4.0 MEQ/L Chloride Level 109 MEQ/L 108 MEQ/L Carbon Dioxide Level 21.3 MEQ/L 22.5 MEQ/L Anion Gap 7 MEQ/L 8 MEQ/L Estimat Glomerular Filtration Rate 26 ML/MIN 30 ML/MIN Imaging: Catheter Placement X-Ray 01/31/18 0000 Signed Impressions: Service Date/Time: Wednesday, January 31, 2018 17:20 - CONCLUSION: Uncomplicated Dc catheter placement as above. Nam Tinajero MD Renal Ultrasound 01/27/18 0000 Signed Impressions: Service Date/Time: Saturday, January 27, 2018 21:59 - CONCLUSION: Increased renal cortical echogenicity bilaterally. No hydronephrosis. Sylvester Estrella MD Chest X-Ray 01/21/18 0600 Signed Impressions: Service Date/Time: Sunday, January 21, 2018 03:50 - CONCLUSION: Normal examination. Right IJ Vas-Cath in good position Duncan Zaldivar MD Foot MRI 01/19/18 Signed Impressions: Service Date/Time: Friday, January 19, 2018 12:36 - CONCLUSION: 1. 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 These findings are very similar to the prior study 2016. 2. Plantar cutaneous defect and extensive midfoot plantar superficial soft tissue edema extending into the plantar musculature. These findings are suspicious for infection in the proper clinical setting. Elongated adjacent more medial and distal plantar soft tissue ovoid fluid collection may represent a pseudo-bursa or abscess. More ill-defined edema is seen extending laterally to the base of the fifth metatarsal with likely early osteomyelitis at this location. This lateral extension is a new finding when compared to the prior study of 2016. 3. Posterior superficial soft tissue edema the heel with mild adjacent bony edema is very similar to the prior study with no definitive osteomyelitis. Ganga Luna MD Abdomen X-Ray 01/19/18 Signed Impressions: Service Date/Time: Friday, January 19, 2018 10:57 - CONCLUSION: Nonspecific bowel gas pattern. Mildly distended air-filled stomach. Ganga Luna MD Liver Ultrasound 01/16/18 Signed Impressions: Service Date/Time: January 16:59 - CONCLUSION: 1. Hepatomegaly and diffuse increased hepatic echogenicity without intrahepatic ductal dilatation or focal mass. Findings are most consistent with hepatic steatosis or medical liver disease. 2. Trace ascites. 3. Cholelithiasis with gallbladder wall prominence and trace pericholecystic fluid. These findings may be seen in the setting of chronic liver disease or ascites and significantly limit ultrasound evaluation for acute cholecystitis. If there is significant clinical concern regarding acute cholecystitis, HIDA scan may be performed to evaluate for cystic duct patency. Nam Tinajero MD Head CT 01/14/182000 Signed Impressions: Service Date/Time: Sunday, January 14, 2018 20:22 - CONCLUSION: Normal examination for a patient of this age. Marcio Hansen MD Lower Extremity CT 01/14/18 Signed Impressions: Service Date/Time: Sunday, January 14, 2018 23:38 - CONCLUSION: 1. CT findings characteristic of a severe Charcot foot in the mid and hindfoot with collapse of the plantar arch. Osteoarthritic changes of the first MTP joint 2. However, findings all appear to be chronic with no acute osseous injury Marquis Mcdonald MD Abdomen/Pelvis CT 01/14/18 0000 Signed Impressions: Service Date/Time: Sunday, January 14, 2018 23:35 - CONCLUSION: 1. CT findings suggest volume overload or low oncotic pressures with some flank and mesenteric edema, gallbladder wall thickening and some free fluid in the pelvis. Heart size is somewhat prominent. 2. Bilateral symmetric gynecomastia. Nonspecific findings but can be associated with some chronic disease processes or medications. 3. Left periaortic borderline prominent lymph nodes. Again, nonspecific but may be reactive associated with the aforementioned mesenteric edema. 4. 5.7 cm periumbilical fatty hernia. There is now some fluid along the periphery of the hernia. This could be related to the generalized edema described above although fatty infarction could have a similar radiographic presentation. Please correlate with clinical symptomatology Marquis Mcdonald MD PHYSICAL EXAMINATION: GENERAL: Awake and alert. HEENT: Pupils reactive to light. No icterus. The sclerae is pale. Oropharynx, dry mucosa. No lesions. No thrush. NECK: Mild stiffness. No palpable mass. No adenopathy. LUNGS: Clear. HEART: Distant S1 and S2. No murmurs, rubs or gallops. ABDOMEN: Bowel sounds present, soft, No distension. No tenderness. protruding umbilical abdominal hernia. EXTREMITIES: No clubbing. No cyanosis. Trace. Wound VAC on left foot. SKIN: No diffuse rash. NEUROLOGIC: No gross focal finding. PSYCHIATRIC: Calm and cooperative. IMPRESSION: 1. Severe sepsis. Improved 2. Bacteremia due to group A beta strep. 3. Leukocytosis secondary to sepsis. Improved 4. Source of sepsis - diabetic foot infection due to group A strep. 5. Acute renal failure. 6. Charcot's joint and soft tissue infection of both feet. Bony destructive change in the left foot. Wound VAC in place. 7. C Difficile colitis. GI bleed. RECOMMENDATIONS: 1. Continue Cefazolin IV until February 27, 2018. 2. Continue Flagyl PO while on the IV antibiotic. 3. Follow the clinical status. Orders has been filled out for the antibiotics on infusion form. Sen Washington MD February 03, 2018 15:31
--- NOTE | 2018-02-03 17:09 | PD.PROCEDR ---
GI Procedure PROCEDURE PERFORMED EGD followed by colonoscopy with biopsies INDICATION FOR PROCEDURE Anemia, GI bleed, C. difficile colitis PROCEDURE: The procedure, risks and benefits were discussed with Patient/POA and informed consent was obtained. Anesthesia sedated Patient with Diprivan. Patient was placed in the left lateral decubitus position. EGD: The Pentax videoscope was introduced through the oropharynx and advanced to the second portion of the duodenum under direct visualization. Retroflexion was performed in the stomach. FINDINGS: The esophagus this was normal The stomach this was normal The duodenum this was normal Colonoscopy: The Pentax videoscope was introduced through the rectum and advanced to cecum where the ileocecal valve and appendiceal orifice were identified. Retroflexion was performed in the rectum. Colonic prep was good FINDINGS: Colonic withdrawal time greater than 6 minutes. As the scope was slowly withdrawn colonic mucosa was carefully inspected colonic mucosa appeared to be grossly unremarkable except for some mild punctate and patchy erythema of unclear significance this may represent the resolving C. difficile colitis otherwise colonic examination was unremarkable this abnormality was seen all the way to the cecum from the anus multiple biopsies were taken from the ascending descending and rectal region retroflexion in rectum did reveal small size internal hemorrhoids rectal examination otherwise unremarkable ESTIMATED BLOOD LOSS: None SPECIMENS REMOVED: Colon biopsies COMPLICATIONS: None IMPRESSION: Mild colitis Small internal hemorrhoids Normal EGD PLAN: Await biopsies Continue with current supportive care Monitor labs Reconsult as needed or if there is any further episodes of bleeding Otherwise we will sign off Manohar Cain MD February 03, 2018 17:09
[2018-02-04] VITALS: BP 129/62; PULSE 78; RESP 18; TEMP 97.8; O2SAT 98
[2018-02-04] MEDS: CHLORHEXIDINE GLUCONATE 2 % 1 PACK (2 CLOTHS) TOP SCH (04:00)
[2018-02-04] MEDS: ceFAZolin 1,000 MG/NS 100 ML IV SCH ×2 (04:56)
[2018-02-04] MEDS: metroNIDAZOLE 500 MG TAB PO SCH (05:18)
[2018-02-04 05:19] VITALS: BP 151/68; PULSE 81; RESP 19; TEMP 98.5; O2SAT 98
[2018-02-04 05:36] LABS: HEMATOCRIT 24.3 % (39.0-51.0); HEMOGLOBIN 8.2 GM/DL (13.0-17.0); MEAN CORPUSCULAR HEMOGLOBIN 29.6 PG (27.0-34.0); MEAN CORPUSCULAR HGB CONC 33.6 % (32.0-36.0); MEAN PLATELET VOLUME 7.9 FL (7.0-11.0); PLATELET COUNT 224 TH/MM3 (150-450); RED BLOOD COUNT 2.76 MIL/MM3 (4.50-5.90)
[2018-02-04 07:59] VITALS: BP 146/65; PULSE 81; RESP 20; TEMP 97.8; O2SAT 99
[2018-02-04 08:09] VITALS: PULSE 77
[2018-02-04] MEDS: MUPIROCIN 2% OINT 1 APPLIC/GM SYR EACH NARE SCH (08:19)
[2018-02-04] MEDS: POLYETHYLENE GLYCOL 17 GM PKG PO SCH (08:20)
[2018-02-04] MEDS: LACTULOSE SYRUP 20 GM/30 ML CUP PO SCH (08:20)
[2018-02-04] MEDS: DOCUSATE SODIUM 50 MG/SENNA 8.6 MG TAB PO SCH (08:21)
[2018-02-04] MEDS: LACTOBACILLUS ACIDOPHILUS TAB PO SCH (08:21)
[2018-02-04] MEDS: PANTOPRAZOLE SOD 40 MG DELAYED RELEASE TAB PO SCH ×2 (08:22→08:24)
[2018-02-04] MEDS: ASPIRIN 325 MG TAB PO SCH (08:22)
[2018-02-04] MEDS: SODIUM CHLORIDE 0.9% FLUSH 10 ML FLUSH IV FLUSH SCH (08:23)
[2018-02-04] MEDS: PATIENT OWN MEDICATION PO SCH (08:23)
--- NOTE | 2018-02-04 10:11 | HHI.PR ---
Subjective Remarks Patient doing better. Wants to go to rehab. No other complaints overnight. Objective Vitals Vital Signs Date Time Temp Pulse Resp B/P (MAP) Pulse Ox O2 Delivery O2 Flow Rate FiO2 02/04/18 08:09 77 02/04/18 07:59 97.8 81 20 146/65 (92) 99 02/04/18 05:19 98.5 81 19 151/68 (95) 98 02/04/18 00:00 97.8 78 18 129/62 (84) 98 02/03/18 20:00 97.7 93 18 146/62 (90) 100 02/03/18 18:19 99 21 02/03/18 16:00 98.9 95 20 168/72 (104) 99 02/03/18 12:29 89 02/03/18 11:55 98.9 99 20 122/62 (82) 97 I/O 02/03/18 02/03/18 02/03/18 02/04/18 02/04/18 02/04/18 07:00 15:00 23:00 07:00 15:00 23:00 Intake Total 400 ml 400 ml Output Total 900 ml 675 ml 500 ml 550 ml 600 ml Balance -500 ml -675 ml -100 ml -550 ml -600 ml Intake Oral 400 ml Other 400 ml Output Urine Total 900 ml 675 ml 500 ml 550 ml 600 ml # Bowel Movements 3 1 1 Result Diagram: 02/04/18 0515 02/03/18 0530 Other Results Microbiology Date/Time Source Procedure Growth Status 01/17/18 10:55 Blood Peripheral Aerobic Blood Culture - Final NO GROWTH IN 5 DAYS Complete 01/17/18 10:55 Blood Peripheral Anaerobic Blood Culture - Final NO GROWTH IN 5 DAYS Complete 01/17/18 13:15 Urine Catheterized Urine Urine Culture - Final NO GROWTH IN 48 HOURS. Complete 01/22/18 20:18 Wound Foot Fungal Smear - Final NO FUNGAL ELEMENTS SEEN. Resulted 01/22/18 20:18 Wound Foot Fungal Culture - Preliminary NO GROWTH IN 1 WEEK Resulted Objective Remarks GENERAL: This is a well-nourished, well-developed patient, in no apparent distress. CARDIOVASCULAR: Regular rate and rhythm RESPIRATORY: Clear to auscultation. Breath sounds equal bilaterally. No wheezes , rales, or rhonchi. GASTROINTESTINAL: Abdomen soft, non-tender, nondistended. Normal active bowel sounds NEURO: Alert & Oriented x4 to person, place, time, situation. Moves all ext x4 Procedures Vas-cath placement/ debridement of both feet/ wound vac placement. IJ Dc A/P Assessment and Plan Septic shock due to Group A strep septicemia from diabetic foot infection - resolved Diabetic foot infection and abscess status post drainage and debridement on 01/20 s/p debridement of both feet along with wound vac placement- podiatry following. wound care consulted. wound vac management per podiatry/ wound care. On cefazolin till - ID following. Antibiotics be given through IJ Dc per nephrology and infectious disease. Flagyl until 02/27 Pertinent microbiology 01/14 -blood cultures 2 beta strep group A 01/15 and 01/16 -wound -beta strep group A 01/16-01/17 -blood cultures 2 -no growth 01/17 -UA -no growth Metabolic encephalopathy secondary to sepsis -resolved. Schizophrenia Posttraumatic stress disorder resumed home meds. History of hypertension, essential and chronic resumed Amlodipine continue to monitor BP and adjust the regimen as needed. Nonoliguric BISHOP -improved creatinine today per renal no indication for hemodialysis at this time Hypokalemia -resolved and now with mild hyperkalemic will continue to monitor 01/16 Lasix 40 mg IV 1 dose 01/17 vascular cath placement now removed had HD on 01/18 and 01/20- HD on hold for now per nephrology. continue to monitor renal function; improving Nephrology following- and Avoid nephrotoxic drugs Hepatitis C antibody positive. Genotype not detected and viral load pending Elevated LFTs- Shock Liver Hepatomegaly Cholelithiasis Monitor CMP 01/16 ultrasound of the liver- Trace ascites. Findings most consistent with hepatic steatosis or liver disease. Cholelithiasis with gallbladder wall prominence but trace pericholecystic fluid Hepatitis C IgG antibody positive GI consulted appreciate recommendations; f/u with GI as outpatient. Noted VICKIE positive. Normocytic anemia - Coagulopathy - Transfused 2 units PRBC on 01/21 and 01/23 Transfused 2 units FFP on 01/21 as well continue to monitor H/H Transfused another unit packed red blood cells on 02/02 For EGD and colonoscopy yesterday revealing a normal EGD and colitis and hemorrhoids on the colonoscopy. Hemoglobin remained stable and has cleared by GI for discharge. Diabetes mellitus type 2 resumed diet - Patient has some hypoglycemic readings yesterday due to n.p.o. status for EGD colonoscopy. At this time we will just use sliding scale insulin and have blood sugar monitored at the rehab and restart Levemir as needed Glipizide 10 mg p.o. twice daily home medication held GI Prophylaxis Pantoprazole DVT Prophylaxis -- SCDs Teds and SCDs. Heparin SQ on hold in the setting of elevated INR, rule out underlying GI bleed. Discharge Planning Discharge to shelter facility today. Cece Brock MD February 04, 2018 10:11
[2018-02-04] MEDS ORDERED: METR-1 PO (10:20)
[2018-02-04] MEDS ORDERED: LACT PO (10:20)
[2018-02-04] MEDS ORDERED: HYDR-3583 PO (10:20)
[2018-02-04] MEDS ORDERED: NOVORP2 SQ (10:20)
--- NOTE | 2018-02-04 10:22 | HHI.DS ---
Discharge Summary Admission Date January 14, 2018 at 21:30 Discharge Date: February 04, 2018 Admitting Diagnosis Sepsis, AMS (1) Septic shock due to streptococcal infection ICD Code: A40.9 - Streptococcal sepsis, unspecified; R65.21 - Severe sepsis with septic shock Diagnosis: Principal Status: Resolved (2) Colitis ICD Code: K52.9 - Noninfective gastroenteritis and colitis, unspecified Diagnosis: Secondary Status: Acute (3) Bleeding hemorrhoids ICD Code: K64.9 - Unspecified hemorrhoids Diagnosis: Secondary Status: Chronic (4) Acute kidney injury ICD Code: N17.9 - Acute kidney failure, unspecified Diagnosis: Secondary Status: Resolved (5) DM (diabetes mellitus) ICD Code: E11.9 - Type 2 diabetes mellitus without complications Diagnosis: Secondary Status: Chronic (6) Open wound of left foot ICD Code: S91.302A - Unspecified open wound, left foot, initial encounter Diagnosis: Principal Status: Chronic (7) Cellulitis of lower extremity ICD Code: L03.119 - Cellulitis of unspecified part of limb Diagnosis: Principal Status: Resolved (8) Acute blood loss anemia ICD Code: D62 - Acute posthemorrhagic anemia Diagnosis: Secondary Status: Resolved (9) CKD (chronic kidney disease) stage 3, GFR 30-59 ml/min ICD Code: N18.3 - Chronic kidney disease, stage 3 (moderate) Diagnosis: Secondary Status: Chronic (10) Hypertension ICD Code: I10 - Essential (primary) hypertension Diagnosis: Secondary Status: Chronic (11) GI bleed ICD Code: K92.2 - Gastrointestinal hemorrhage, unspecified Diagnosis: Secondary Status: Resolved Procedures Vas-cath placement/ debridement of both feet/ wound vac placement. DANIELLE Dc Brief History - From Admission 57-year-old male presents from home with altered mental status. Patient has been altered and is oriented to person only. According to family, patient fell 2 days ago but we do not have any other information regarding this. Patient does have a history of chronic alcohol abuse but denies any alcohol today. CBC/BMP: 02/04/18 0515 02/03/18 0530 Significant Findings Laboratory Tests Test 02/02/18 06:00 02/03/18 00:39 02/03/18 05:30 02/04/18 05:15 Red Blood Count 2.30 MIL/MM3 (4.50-5.90) 2.84 MIL/MM3 (4.50-5.90) 2.76 MIL/MM3 (4.50-5.90) Hemoglobin 6.9 GM/DL (13.0-17.0) 8.9 GM/DL (13.0-17.0) 8.4 GM/DL (13.0-17.0) 8.2 GM/DL (13.0-17.0) Hematocrit 20.6 % (39.0-51.0) 26.4 % (39.0-51.0) 25.2 % (39.0-51.0) 24.3 % (39.0-51.0) Monocytes (%) (Auto) 11.5 % (0.0-8.0) 13.2 % (0.0-8.0) Blood Urea Nitrogen 31 MG/DL (7-18) 26 MG/DL (7-18) Creatinine 2.61 MG/DL (0.60-1.30) 2.28 MG/DL (0.60-1.30) Random Glucose 129 MG/DL (74-106) 68 MG/DL (74-106) Chloride Level 109 MEQ/L (98-107) 108 MEQ/L (98-107) Estimat Glomerular Filtration Rate 26 ML/MIN (>89) 30 ML/MIN (>89) Imaging Last Impressions Catheter Placement X-Ray 01/31/18 0000 Signed Impressions: Service Date/Time: Wednesday, January 31, 2018 17:20 - CONCLUSION: Uncomplicated Dc catheter placement as above. Nam Tinajero MD Renal Ultrasound 01/27/18 0000 Signed Impressions: Service Date/Time: Saturday, January 27, 2018 21:59 - CONCLUSION: Increased renal cortical echogenicity bilaterally. No hydronephrosis. Sylvester Estrella MD Chest X-Ray 01/21/18 0600 Signed Impressions: Service Date/Time: Sunday, January 21, 2018 03:50 - CONCLUSION: Normal examination. Right IJ Vas-Cath in good position Duncan Zaldivar MD Foot MRI 01/19/18 Signed Impressions: Service Date/Time: Friday, January 19, 2018 12:36 - CONCLUSION: 1. 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 These findings are very similar to the prior study 2016. 2. Plantar cutaneous defect and extensive midfoot plantar superficial soft tissue edema extending into the plantar musculature. These findings are suspicious for infection in the proper clinical setting. Elongated adjacent more medial and distal plantar soft tissue ovoid fluid collection may represent a pseudo-bursa or abscess. More ill-defined edema is seen extending laterally to the base of the fifth metatarsal with likely early osteomyelitis at this location. This lateral extension is a new finding when compared to the prior study of 2016. 3. Posterior superficial soft tissue edema the heel with mild adjacent bony edema is very similar to the prior study with no definitive osteomyelitis. Ganga Luna MD Abdomen X-Ray 01/19/18 Signed Impressions: Service Date/Time: Friday, January 19, 2018 10:57 - CONCLUSION: Nonspecific bowel gas pattern. Mildly distended air-filled stomach. Ganga Luna MD Liver Ultrasound 01/16/18 Signed Impressions: Service Date/Time: January 16:59 - CONCLUSION: 1. Hepatomegaly and diffuse increased hepatic echogenicity without intrahepatic ductal dilatation or focal mass. Findings are most consistent with hepatic steatosis or medical liver disease. 2. Trace ascites. 3. Cholelithiasis with gallbladder wall prominence and trace pericholecystic fluid. These findings may be seen in the setting of chronic liver disease or ascites and significantly limit ultrasound evaluation for acute cholecystitis. If there is significant clinical concern regarding acute cholecystitis, HIDA scan may be performed to evaluate for cystic duct patency. Nam Tinajero MD Head CT 01/14/182000 Signed Impressions: Service Date/Time: Sunday, January 14, 2018 20:22 - CONCLUSION: Normal examination for a patient of this age. Marcio Hansen MD Lower Extremity CT 01/14/18 Signed Impressions: Service Date/Time: Sunday, January 14, 2018 23:38 - CONCLUSION: 1. CT findings characteristic of a severe Charcot foot in the mid and hindfoot with collapse of the plantar arch. Osteoarthritic changes of the first MTP joint 2. However, findings all appear to be chronic with no acute osseous injury Marquis Mcdonald MD Abdomen/Pelvis CT 01/14/18 0000 Signed Impressions: Service Date/Time: Sunday, January 14, 2018 23:35 - CONCLUSION: 1. CT findings suggest volume overload or low oncotic pressures with some flank and mesenteric edema, gallbladder wall thickening and some free fluid in the pelvis. Heart size is somewhat prominent. 2. Bilateral symmetric gynecomastia. Nonspecific findings but can be associated with some chronic disease processes or medications. 3. Left periaortic borderline prominent lymph nodes. Again, nonspecific but may be reactive associated with the aforementioned mesenteric edema. 4. 5.7 cm periumbilical fatty hernia. There is now some fluid along the periphery of the hernia. This could be related to the generalized edema described above although fatty infarction could have a similar radiographic presentation. Please correlate with clinical symptomatology Marquis Mcdonald MD PE at Discharge GENERAL: This is a well-nourished, well-developed patient, in no apparent distress. CARDIOVASCULAR: Regular rate and rhythm RESPIRATORY: Clear to auscultation. Breath sounds equal bilaterally. No wheezes , rales, or rhonchi. GASTROINTESTINAL: Abdomen soft, non-tender, nondistended. Normal active bowel sounds NEURO: Alert & Oriented x4 to person, place, time, situation. Moves all ext x4 Hospital Course These are the medical issues addressed during this hospitalization: Septic shock due to Group A strep septicemia from diabetic foot infection - resolved Diabetic foot infection and abscess status post drainage and debridement on 01/20 s/p debridement of both feet along with wound vac placement- podiatry following. wound care consulted. wound vac management per podiatry/ wound care. On cefazolin till - ID following. Antibiotics be given through IJ Dc per nephrology and infectious disease. Flagyl until 02/27 Pertinent microbiology 01/14 -blood cultures 2 beta strep group A 5/ and 01/16 -wound -beta strep group A /-01/17 -blood cultures 2 -no growth 01/17 -UA -no growth Metabolic encephalopathy secondary to sepsis -resolved. Schizophrenia Posttraumatic stress disorder resumed home meds. History of hypertension, essential and chronic resumed Amlodipine continue to monitor BP and adjust the regimen as needed. Nonoliguric BISHOP -improved creatinine today per renal no indication for hemodialysis at this time Hypokalemia -resolved and now with mild hyperkalemic will continue to monitor 01/16 Lasix 40 mg IV 1 dose 01/17 vascular cath placement now removed had HD on 01/18 and 01/20- HD on hold for now per nephrology. continue to monitor renal function; improving Nephrology following- and Avoid nephrotoxic drugs Hepatitis C antibody positive. Genotype not detected and viral load pending Elevated LFTs- Shock Liver Hepatomegaly Cholelithiasis Monitor CMP 01/16 ultrasound of the liver- Trace ascites. Findings most consistent with hepatic steatosis or liver disease. Cholelithiasis with gallbladder wall prominence but trace pericholecystic fluid Hepatitis C IgG antibody positive GI consulted appreciate recommendations; f/u with GI as outpatient. Noted VICKIE positive. Normocytic anemia - Coagulopathy - Transfused 2 units PRBC on 01/21 and 01/23 Transfused 2 units FFP on 01/21 as well continue to monitor H/H Transfused another unit packed red blood cells on 02/02 For EGD and colonoscopy yesterday revealing a normal EGD and colitis and hemorrhoids on the colonoscopy. Hemoglobin remained stable and has cleared by GI for discharge. Diabetes mellitus type 2 resumed diet - Patient has some hypoglycemic readings yesterday due to n.p.o. status for EGD colonoscopy. At this time we will just use sliding scale insulin and have blood sugar monitored at the rehab and restart Levemir as needed Glipizide 10 mg p.o. twice daily home medication held GI Prophylaxis Pantoprazole DVT Prophylaxis -- SCDs Teds and SCDs. Heparin SQ on hold in the setting of elevated INR, rule out underlying GI bleed. Pt Condition on Discharge: Good Discharge Disposition: Discharge to SNF Discharge Time: <= 30 minutes Discharge Instructions DIET: Follow Instructions for: Diabetic Diet Activities you can perform: Regular-No Restrictions Follow up Referrals: PCP Follow-up - 2 Weeks Podiatry - 2 Weeks with Cecy Salvador DPM New Medications: Cefazolin Inj (Cefazolin Inj) 1 Gm/50 Ml Bagp 1 GM IV Q12HR for Infection for 23 Days, BAG 0 Refills Epinephrine Inj (Epinephrine Inj) 1 Mg/Ml (1 Ml) Inj 0.3 MG IV PUSH ONCE PRN for ALLERGIC REACTION, #1 VIAL Epinephrine Inj (Epinephrine Inj) 1 Mg/Ml (1 Ml) Inj 0.3 MG SQ ONCE PRN for ALLERGIC REACTION, #1 VIAL Give with any signs of respiratory distress. Hydrocortisone Inj (Solu-Cortef Inj) 250 Mg/2 Ml Inj 250 MG IV PUSH ONCE PRN for ALLERGIC REACTION, #1 VIAL 0 Refills Give over 30-60 seconds. Insulin Human Regular Inj (Novolin R Inj) 1,000 Unit/10 Ml Vial 2-10 UNITS SQ DIRECTED for Blood Sugar Management, #10 ML 0 Refills Max dose at bedtime:( )units; sugars less than 150,(0) units; sugars 150-199,(2)unit; sugars 200-249,(4)units; sugars 250-299,(6) units; sugars 300-349,(8)units; sugars equal to or greater than 350,(10)units Lactobacillus Acidophilus (Acidophilus/l-Sporogenes) 35 Million Cell-25 Million Cell Tab 1 TAB PO Q12HR for probiotics, #20 TAB Metronidazole (Flagyl) 500 Mg Tab 500 MG PO Q8HR for Infection, #69 TAB Continued Medications: Amlodipine (Norvasc) 10 Mg Tab 10 MG PO DAILY for Blood Pressure Management, #31 TAB Aspirin (Aspirin) 325 Mg Tab 325 MG PO DAILY, #30 TAB 0 Refills Hydrocodone-Acetaminophen (Hydrocodone-Acetaminophen) 10-325 mg Tab 1 TAB PO BID PRN for PAIN, #10 TAB 0 Refills (This prescription has been renewed ) Hydroxyzine Pamoate (Vistaril) 50 Mg Cap 50 MG PO BID, #60 CAP 0 Refills Thioridazine (Thioridazine) 100 Mg Tab 200 MG PO DAILY for Schizophrenia, #30 TAB 0 Refills Discontinued Medications: Glipizide (Glipizide) 10 Mg Tab 10 MG PO BIDAC [Mellaril] () 100 MG PO BID Cece Brock MD February 04, 2018 10:22
[2018-02-04] MEDS ORDERED: EPIN1INJ21 SQ (10:24)
[2018-02-04] MEDS ORDERED: EPIN1INJ21 IV PUSH (10:24)
[2018-02-04] MEDS ORDERED: SOLU250I IV PUSH (10:24)
[2018-02-04] MEDS ORDERED: CEFA1SOL IV (10:24)
--- NOTE | 2018-02-04 10:40 | HHI.NPPN ---
Subjective General Problems: Edema Renal Failure: Acute Interval History He is being discharged to SNF today. Labs were not obtained. No new complaints. (Laura Quesada) Review of Systems General Constitutional: Fatigue (Laura Quesada) Skin Skin Remarks wounds to bilateral feet. (Laura Quesada) Objective Data Data 02/04/18 02/05/18 19:00 07:00 Output Total 600 ml Balance -600 ml Output Urine Total 600 ml # Bowel Movements 1 Vital Signs Date Time Temp Pulse Resp B/P (MAP) Pulse Ox O2 Delivery O2 Flow Rate FiO2 02/04/18 08:09 77 02/04/18 07:59 97.8 81 20 146/65 (92) 99 02/04/18 05:19 98.5 81 19 151/68 (95) 98 02/04/18 00:00 97.8 78 18 129/62 (84) 98 02/03/18 20:00 97.7 93 18 146/62 (90) 100 02/03/18 18:19 99 21 02/03/18 16:00 98.9 95 20 168/72 (104) 99 02/03/18 12:29 89 02/03/18 11:55 98.9 99 20 122/62 (82) 97 (Laura Quesada) -: 02/04/18 0515 02/03/18 0530 Physical Exam General Appearance: No Acute Distress, Comfortable Appearance Remarks disheveled, appears older than stated age (Laura Quesada) Eyes Eye Exam: Pupils Equal, Pupils Reactive (Laura Quesada) Ears & Nose Ears & Nose Exam: Tympanic Membranes Normal (Laura Quesada) Throat Throat Exam: Oral Mucosa [place] & Moist (Laura Quesada) Pulmonary Resp Exam: Breath Sounds Equal, No Distress (Laura Quesada) Cardiology CV Exam: Normal Sinus Rhythm, Good Perfusion (Laura Quesada) Gastrointestinal/Abdomen GI Exam: Soft, Non-Tender, Bowel Sounds Present, Positive Bowel Movement (Laura Quesada) Musculoskeletal MS Exam: Joints Intact, Normal Tone, Unable to Ambulate (Laura Quesada) Integumentary Skin Exam: Warm, Dry, Tenting Skin Remarks wound on bilateral feet/heals , dressings in place Wound vac in place (Laura Quesada) Extremeties Extremities Exam: Trace Edema (Laura Quesada) Neurologic Neuro Exam: Alert, Awake, Speech Clear, Moving All Extremities (Laura Quesada) Psychiatric Psych Exam: Appropriate Responses (Laura Quesada) Assessment/Plan Discussed Condition With: Patient Assessment Summary: BISHOP/Acute Renal Failure Problem List: (1) Acute worsening of stage 3 chronic kidney disease ICD Codes: N18.3 - Chronic kidney disease, stage 3 (moderate) Plan: Renal US suggesting underlying CKD. His baseline from last year was 1.7. BISHOP was ATN from sepsis. He required 2 dialysis sessions, on 01/18 and 01/20. His renal function has not improved as anticipated. Yesterday he did have some improvement however Tolerating oral fluids, he is non oliguric. Cleared for discharge from renal perspective. We will follow in CKD clinic. Advised to avoid nephrotoxic agents, especially NSAIDs at discharge. (2) Sepsis ICD Codes: A41.9 - Sepsis, unspecified organism Status: Resolved Plan: ID following. On Cefazolin, stop date 02/27. Source is likely infected leg wounds. 4/4 blood cultures positive, wound culture also positive for Group B strep s/p Tunneled Dc placement (3) Anemia ICD Codes: D64.9 - Anemia, unspecified Status: Chronic Plan: s/p EGD/colon mild colitis noted GI cleared for discharge (4) Hyponatremia ICD Codes: E87.1 - Hypo-osmolality and hyponatremia Status: Acute Plan: Stable Monitor H xof psychogenic polydipsia. (Laura Quesada) Plan patient was seen and examined. Agree with above assessment and plan. (Shaun Mcmahon MD) Problem Qualifiers (1) Sepsis: Qualified Codes: A41.9 - Sepsis, unspecified organism Laura Quesada February 04, 2018 10:40 Shaun Mcmahon MD February 04, 2018 16:05
[2018-02-04 12:09] VITALS: BP 138/63; PULSE 89; RESP 20; TEMP 98.4; O2SAT 98
== END 2018-02-04 13:57 | DRG 853 ==
LOC: NEPC 19:41 → NEDA 21:30 → HIMN 23:37 → N05B 01-25 12:41
PROVIDERS: ADMIT Family Medicine; ATTEND Family Medicine
PROC: 02HV33Z Insertion of Infusion Device into Superior Vena Cava, Percutaneous Approach (ICD-10-PCS; 2018-01-17)
PROC: 0HBNXZZ Excision of Left Foot Skin, External Approach (ICD-10-PCS; 2018-01-20)
PROC: 0HBMXZZ Excision of Right Foot Skin, External Approach (ICD-10-PCS; 2018-01-20)
PROC: 30233K1 Transfusion of Nonautologous Frozen Plasma into Peripheral Vein, Percutaneous Approach (ICD-10-PCS; 2018-01-21)
PROC: 30233N1 Transfusion of Nonautologous Red Blood Cells into Peripheral Vein, Percutaneous Approach (ICD-10-PCS; 2018-01-21)
PROC: 0QBL0ZZ Excision of Right Tarsal, Open Approach (ICD-10-PCS; 2018-01-22)
PROC: 0QBM0ZZ Excision of Left Tarsal, Open Approach (ICD-10-PCS; principal; 2018-01-22 19:29)
PROC: 05HM33Z Insertion of Infusion Device into Right Internal Jugular Vein, Percutaneous Approach (ICD-10-PCS; 2018-01-31)
PROC: 0DJ08ZZ Inspection of Upper Intestinal Tract, Via Natural or Artificial Opening Endoscopic (ICD-10-PCS; 2018-02-03)
PROC: 0DBK8ZX Excision of Ascending Colon, Via Natural or Artificial Opening Endoscopic, Diagnostic (ICD-10-PCS; 2018-02-03)
PROC: 0DBP8ZX Excision of Rectum, Via Natural or Artificial Opening Endoscopic, Diagnostic (ICD-10-PCS; 2018-02-03)
PROC: 0DBM8ZX Excision of Descending Colon, Via Natural or Artificial Opening Endoscopic, Diagnostic (ICD-10-PCS; 2018-02-03)
DX: A40.0 Sepsis due to streptococcus, group A (principal); R65.21 Severe sepsis with septic shock; N17.0 Acute kidney failure with tubular necrosis; K72.00 Acute and subacute hepatic failure without coma; G93.41 Metabolic encephalopathy; A04.72 Enterocolitis due to Clostridium difficile, not specified as recurrent; D68.9 Coagulation defect, unspecified; N18.3 Chronic kidney disease, stage 3 (moderate); I13.0 Hypertensive heart and chronic kidney disease with heart failure and stage 1 through stage 4 chronic kidney disease, or unspecified chronic kidney disease; E87.2 Acidosis; E87.1 Hypo-osmolality and hyponatremia; L02.612 Cutaneous abscess of left foot; L02.611 Cutaneous abscess of right foot; D62 Acute posthemorrhagic anemia; L03.119 Cellulitis of unspecified part of limb; Q43.8 Other specified congenital malformations of intestine; I50.9 Heart failure, unspecified; E11.22 Type 2 diabetes mellitus with diabetic chronic kidney disease; E11.610 Type 2 diabetes mellitus with diabetic neuropathic arthropathy; E11.628 Type 2 diabetes mellitus with other skin complications; E11.621 Type 2 diabetes mellitus with foot ulcer; E11.649 Type 2 diabetes mellitus with hypoglycemia without coma; L97.519 Non-pressure chronic ulcer of other part of right foot with unspecified severity; F20.9 Schizophrenia, unspecified; L97.529 Non-pressure chronic ulcer of other part of left foot with unspecified severity; E11.65 Type 2 diabetes mellitus with hyperglycemia; R16.0 Hepatomegaly, not elsewhere classified; E87.5 Hyperkalemia; K76.0 Fatty (change of) liver, not elsewhere classified; F32.9 Major depressive disorder, single episode, unspecified; K44.9 Diaphragmatic hernia without obstruction or gangrene; F10.20 Alcohol dependence, uncomplicated; I44.0 Atrioventricular block, first degree; M19.071 Primary osteoarthritis, right ankle and foot; B95.0 Streptococcus, group A, as the cause of diseases classified elsewhere; B19.20 Unspecified viral hepatitis C without hepatic coma; K64.8 Other hemorrhoids; F43.10 Post-traumatic stress disorder, unspecified; E87.6 Hypokalemia; R00.1 Bradycardia, unspecified; K80.20 Calculus of gallbladder without cholecystitis without obstruction; Z87.891 Personal history of nicotine dependence; Z79.84 Long term (current) use of oral hypoglycemic drugs; Z88.1 Allergy status to other antibiotic agents; Z91.81 History of falling; Z78.1 Physical restraint status; Z79.82 Long term (current) use of aspirin
CPT/HCPCS: 36430; 36558; 36600; 51702; 70450; 71045; 73700; 73718; 74018; 74176; 76705; 76775; 76937; 77001; 80048; 80053; 80069; 80074; 80307; 81001; 81003; 82010; 82103; 82140; 82248; 82390; 82550; 82805; 82948; 83520; 83540; 83550; 83605; 83615; 83690; 83735; 83880; 83930; 84080; 84100; 84295; 84443; 84484; 85007; 85014; 85018; 85025; 85027; 85384; 85610; 85730; 86038; 86039; 86255; 86403; 86850; 86900; 86901; 86920; 86927; 87015; 87040; 87070; 87086; 87102; 87116; 87184; 87186; 87205; 87206; 87493; 87522; 87641; 87902; 88304; 88305; 88311; 90935; 93005; 93306; 94150; 96361; 96374; 99152; C1751; J0360; J0610; J0690; J0878; J1580; J1642; J1644; J1720; J1815; J1817; J2060; J2250; J2270; J2543; J3010; J7030; J7050; J7070; P9016; P9017

== ENCOUNTER 2018-02-17 15:59 | Inpatient (IN) | payer MEDICARE, OTHER ==
[~2018-02-17] VITALS: Ht 175.3 cm; Wt 124.6 kg
[~2018-02-17 15:59] MED LIST changes: +CEFA1SOL IV; +EPIN1INJ21 IV PUSH; +EPIN1INJ21 SQ; -GLIP10TA6 PO; +LACT PO; -MELLARIL PO; +METR-1 PO; +NOVORP2 SQ; +SOLU250I IV PUSH; +THIO100T2 PO
[2018-02-17 16:53] VITALS: BP 95/53; PULSE 81; RESP 18; O2SAT 96
[2018-02-17 17:04] VITALS: BP 100/49; PULSE 82; RESP 18; TEMP 97.7; O2SAT 99
[2018-02-17] MEDS ORDERED: SODIUM CHLORID 0.9% 500 ML INJ 500 ML IV ONE (17:15)
[2018-02-17] MEDS ORDERED: FERR325T18 PO (17:23)
[2018-02-17] MEDS ORDERED: 0.92SYRI2 IV FLUSH (17:23)
[2018-02-17] MEDS ORDERED: HEPA100I9 IV FLUSH (17:23)
[2018-02-17] MEDS ORDERED: NOVORP2 SQ (17:27)
--- NOTE | 2018-02-17 17:40 | RADRPT ---
EXAM DATE: 02/17/2018 5:34 PM EDT AGE/SEX: 57 years / Male INDICATIONS: Cough. CLINICAL DATA: This is the patient's initial encounter. Patient reports that signs and symptoms have been present for 1 day and indicates a pain score of 0/10. MEDICAL/SURGICAL HISTORY: Hypertension. Diabetes mellitus type II. . [id number]. COMPARISON: [facility] – [place], CHEST SINGLE AP, 01/21/2018. . FINDINGS: A single AP view of the chest demonstrates developing bihilar airspace disease extending to the bases suggesting some degree of vascular congestion or volume overload. Left basilar consolidation with pr obable associated effusion. Heart size is prominent. Right IJ dialysis type catheters been removed. T here is a smallbore right IJ catheter with the tip projecting over the central venous system. Osseous structures are intact. CONCLUSION: 1. Cardiomegaly with plain film findings suggesting some degree of vascular congestion or volume ove rload. 2. Left basilar consolidation/effusion. Electronically signed by: Marquis Mcdonald MD 02/17/2018 5:39 PM EDT
[2018-02-17 17:45] LABS: AUTOMATED NEUTROPHIL # 7.2 TH/MM3 (1.8-7.7); BASOPHIL # 0.1 TH/MM3 (0-0.2); EOSINOPHIL % 0.2 % (0.0-4.0); HEMATOCRIT 22.7 % (39.0-51.0); HEMOGLOBIN 7.5 GM/DL (13.0-17.0); LYMPH % 17.4 % (9.0-44.0); LYMPHOCYTE # 1.8 TH/MM3 (1.0-4.8); MEAN CELL VOLUME 88.2 FL (80.0-100.0); MEAN CORPUSCULAR HEMOGLOBIN 29.2 PG (27.0-34.0); MEAN PLATELET VOLUME 9.4 FL (7.0-11.0); MONO % 11.5 % (0.0-8.0); MONOCYTE # 1.2 TH/MM3 (0-0.9); NEUT % 69.9 % (16.0-70.0); PLATELET COUNT 408 TH/MM3 (150-450); RED BLOOD COUNT 2.58 MIL/MM3 (4.50-5.90); RED CELL DISTRIBUTION WIDTH 15.5 % (11.6-17.2); WHITE BLOOD COUNT 10.2 TH/MM3 (4.0-11.0)
[2018-02-17 17:56] LABS: PROTHROMBIN TIME - PATIENT 20.7 SEC (9.8-11.6)
[2018-02-17 18:01] VITALS: BP 96/64; PULSE 83; RESP 18; O2SAT 100
[2018-02-17 18:02] LABS: ALBUMIN 1.3 GM/DL (3.4-5.0); ALKALINE PHOSPHATASE 455 U/L (45-117); ALT (GPT) 7 U/L (12-78); AST (GOT) 140 U/L (15-37); BICARBONATE 16.1 MEQ/L (21.0-32.0); BLOOD UREA NITROGEN 44 MG/DL (7-18); CALCIUM 8.8 MG/DL (8.5-10.1); CHLORIDE 96 MEQ/L (98-107); GLOMERULAR FILTRATION RATE 12 ML/MIN (>89); GLUCOSE,RANDOM 160 MG/DL (74-106); TOTAL BILIRUBIN ADULT 0.4 MG/DL (0.2-1.0); TOTAL PROTEIN 8.7 GM/DL (6.4-8.2)
[2018-02-17 18:07] LABS: SODIUM (NA) 122 MEQ/L (136-145)
[2018-02-17 18:15] LABS: AMORPHOUS SEDIMENT, URINE RARE; BACTERIA, URINE FEW /hpf; BILIRUBIN, URINE NEG (NEG); BLOOD, URINE MOD (NEG); GLUCOSE,URINE NEG (NEG); KETONE, URINE TRACE mg/dL (NEG); NITRITE,URINE NEG (NEG); PH, URINE 5.5 (5.0-8.5); SQUAMOUS EPITHELIAL CELL URINE 1 /hpf (0-5); URINE COLOR DARK-BROWN (YELLW/STRAW); URINE LEUKOCYTE ESTERASE LARGE (NEG)
--- NOTE | 2018-02-17 18:44 | PD ---
HPI Chief Complaint: Abnormal Results Time Seen by Provider: 16:57 Travel History International Travel<30 days: No Contact w/Intl Traveler<30days: No Traveled to known affect area: No History of Present Illness HPI Patient is a 57-year-old male [facility] due to abnormal labs. Per report, patient's hemoglobin is low, creatinine is elevated, sodium is low. Patient has had some degree of anemia in the past as well as chronic kidney disease, but her documentation, it is worsening. He is currently being treated for osteomyelitis with cefazolin and he is on Flagyl for C. difficile. He denies nausea or vomiting. He says he is tired. He denies any chest pain or shortness of breath. Does have some abdominal pain. He has not noticed any blood in his stool. Severity is moderate. PFSH Past Medical History Hx Anticoagulant Therapy: No Arthritis: No Asthma: No Autoimmune Disease: No Blood Disorders: No Anxiety: Yes Depression: Yes Heart Rhythm Problems: No Cancer: No Cardiovascular Problems: No High Cholesterol: No Chemotherapy: No Chest Pain: No Congestive Heart Failure: No COPD: No Cerebrovascular Accident: No Diabetes: Yes Patient Takes Glucophage: No Diminished Hearing: No Endocrine: No Gastrointestinal Disorders: Yes (umbilical hernia) GERD: Yes Glaucoma: No Genitourinary: No Headaches: No Hepatitis: No Hiatal Hernia: No Heparin Induced Thrombocytopen: No Hypertension: Yes Immune Disorder: No Implanted Vascular Access Dvce: No Kidney Stones: No Musculoskeletal: No Neurologic: No Psychiatric: Yes (Schizophrenia) Reproductive: No Respiratory: No Immunizations Current: No Migraines: No Myocardial Infarction: No Radiation Therapy: No Renal Failure: No Schizophrenia: Yes Seizures: No Sickle Cell Disease: No Sleep Apnea: No Thyroid Disease: No Ulcer: No ?: Not Past Surgical History Abdominal Surgery: No AICD: No Appendectomy: No Arteriovenous Shunt: No Cardiac Surgery: No Cholecystectomy: No Ear Surgery: No Endocrine Surgery: No Eye Surgery: No Genitourinary Surgery: No Gynecologic Surgery: No Insulin Pump: No Joint Replacement: No Neurologic Surgery: No Oral Surgery: Yes (wisdom teeth removed) Pacemaker: No Thoracic Surgery: No Other Surgery: Yes (bilateral feet) Social History Alcohol Use: Yes (previous heavy drinker, recently stopped jan 14 2018) Tobacco Use: No (QUIT 2012) Substance Use: No Allergies-Medications (Allergen,Severity, Reaction): Coded Allergies: haloperidol (Verified Allergy, Severe, BLINDNESS, 01/14/18) vancomycin (Verified Allergy, Severe, 01/14/18) levofloxacin (Verified Allergy, Intermediate, Cramping, 01/14/18) fluphenazine (Verified Allergy, Unknown, "PARKINSONIAN SHACKS", 01/14/18) codeine (Verified Adverse Reaction, Mild, 01/14/18) "makes me feel funny" but feels ok taking [place]'s *MDRO Multi-Drug Resistant Organism (Verified Adverse Reaction, Unknown, VRE, 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 Reported Meds & Prescriptions Reported Meds & Active Scripts Active Epinephrine Inj 1 Mg/Ml (1 Ml) Inj 0.3 Mg SQ ONCE PRN Give with any signs of respiratory distress. Cefazolin Inj (Cefazolin Sodium/Dextrose) 1 Gm/50 Ml Bagp 1 Gm IV Q12HR 23 Days Flagyl (Metronidazole) 500 Mg Tab 500 Mg PO Q8HR Hydrocodone-Acetaminophen 10-325 mg Tab 1 Tab PO BID PRN Vistaril (Hydroxyzine Pamoate) 50 Mg Cap 50 Mg PO BID Norvasc (Amlodipine Besylate) 10 Mg Tab 10 Mg PO DAILY Reported Novolin R Inj (Insulin Human Regular) 1,000 Unit/10 Ml Vial 2-10 Units SQ ACHS Sliding Scale: 150-199=2 units, 200-249=4 units, 250-299=6 units, 300-349=8 units, 350+=10 units Normal Saline Flush (Sodium Chloride Flush) 0.9 % Inj 10 Ml IV FLUSH Q12HR Heparin Lock Flush 100 Unit/ml (Heparin Sodium,Porcine/Pf) 100 Unit/Ml (1 Ml) Vial 5 Ml IV FLUSH Q12HR Flush with NS 10ml followed by Heparin 5ml after each use Ferrous Sulfate 325 Mg (65 Mg Iron) Tablet 325 Mg PO DAILY Thioridazine (Thioridazine HCl) 100 Mg Tab 200 Mg PO DAILY Review of Systems Except as stated in HPI: all other systems reviewed are Neg General / Constitutional: No: Fever, Chills Eyes: No: Blurred Vision HENT: No: Headaches, Lightheadedness Cardiovascular: No: Chest Pain or Discomfort Respiratory: No: Shortness of Breath Gastrointestinal: Positive: Diarrhea, Abdominal Pain, No: Nausea, Vomiting Musculoskeletal: No: Myalgias, Edema Skin: No Rash, No Itching Neurologic: Positive: Weakness, No: Dizziness Physical Exam Narrative GENERAL: Awake and alert, in no acute distress. SKIN: Focused skin assessment warm/dry. Patient pale in color. HEAD: Atraumatic. Normocephalic. EYES: Pupils equal and round. No scleral icterus. ENT: Mucous membranes pink and moist. NECK: Trachea midline. No JVD. CARDIOVASCULAR: Regular rate and rhythm. No murmur appreciated. RESPIRATORY: No accessory muscle use. Clear to auscultation. Breath sounds equal bilaterally. GASTROINTESTINAL: Abdomen soft, nondistended. Tender to palpation of the lower abdomen. No rebound or guarding. MUSCULOSKELETAL: No obvious deformities. No clubbing. No cyanosis. No edema. NEUROLOGICAL: Awake and alert. No obvious cranial nerve deficits. Motor grossly within normal limits. Normal speech. PSYCHIATRIC: Appropriate mood and affect; insight and judgment normal. Data Data Last Documented VS Vital Signs Date Time Temp Pulse Resp B/P (MAP) Pulse Ox O2 Delivery O2 Flow Rate FiO2 02/17/18 18:01 83 18 96/64 (75) 100 Room Air 02/17/18 17:04 97.7 2.00 Orders Orders Iv Access Insert/Monitor (02/17/18 17:05) Complete Blood Count With Diff (02/17/18 17:05) Comprehensive Metabolic Panel (02/17/18 17:05) Type And Screen (02/17/18 17:05) Act Partial Throm Time (Ptt) (02/17/18 17:05) Prothrombin Time / Inr (Pt) (02/17/18 17:05) Urinalysis - C+S If Indicated (02/17/18 17:05) Cath For Specimen (02/17/18 17:05) Ct Abd/Pel W/O Iv Contrast (02/17/18 ) Chest, Single Ap (02/17/18 ) Sodium Chlorid 0.9% 500 Ml Inj (Ns 500 M (02/17/18 17:15) Lactic Acid (02/17/18 17:05) Urine Culture (02/17/18 17:32) Ceftriaxone Inj (Rocephin Inj) (02/17/18 18:45) Labs Laboratory Tests Test 02/17/18 17:21 02/17/18 17:27 02/17/18 17:32 White Blood Count 10.2 TH/MM3 Red Blood Count 2.58 MIL/MM3 Hemoglobin 7.5 GM/DL Hematocrit 22.7 % Mean Corpuscular Volume 88.2 FL Mean Corpuscular Hemoglobin 29.2 PG Mean Corpuscular Hemoglobin Concent 33.0 % Red Cell Distribution Width 15.5 % Platelet Count 408 TH/MM3 Mean Platelet Volume 9.4 FL Neutrophils (%) (Auto) 69.9 % Lymphocytes (%) (Auto) 17.4 % Monocytes (%) (Auto) 11.5 % Eosinophils (%) (Auto) 0.2 % Basophils (%) (Auto) 1.0 % Neutrophils # (Auto) 7.2 TH/MM3 Lymphocytes # (Auto) 1.8 TH/MM3 Monocytes # (Auto) 1.2 TH/MM3 Eosinophils # (Auto) 0.0 TH/MM3 Basophils # (Auto) 0.1 TH/MM3 CBC Comment AUTO DIFF Prothrombin Time 20.7 SEC Prothromb Time International Ratio 2.0 RATIO Activated Partial Thromboplast Time 41.1 SEC Blood Urea Nitrogen 44 MG/DL Creatinine 4.90 MG/DL Random Glucose 160 MG/DL Total Protein 8.7 GM/DL Albumin 1.3 GM/DL Calcium Level 8.8 MG/DL Alkaline Phosphatase 455 U/L Aspartate Amino Transf (AST/SGOT) 140 U/L Alanine Aminotransferase (ALT/SGPT) 7 U/L Total Bilirubin 0.4 MG/DL Sodium Level 122 MEQ/L Potassium Level 5.4 MEQ/L Chloride Level 96 MEQ/L Carbon Dioxide Level 16.1 MEQ/L Anion Gap 10 MEQ/L Estimat Glomerular Filtration Rate 12 ML/MIN Urine Color DARK-BROWN Urine Turbidity HAZY Urine pH 5.5 Urine Specific [place] 1.024 Urine Protein 100 mg/dL Urine Glucose (UA) NEG mg/dL Urine Ketones TRACE mg/dL Urine Occult Blood MOD Urine Nitrite NEG Urine Bilirubin NEG Urine Urobilinogen LESS THAN 2.0 MG/DL Urine Leukocyte Esterase LARGE Urine RBC 14 /hpf Urine WBC 47 /hpf Urine Squamous Epithelial Cells 1 /hpf Urine Amorphous Sediment RARE Urine Bacteria FEW /hpf Microscopic Urinalysis Comment CATH-CULTURE IND MDM Medical Decision Making Medical Screen Exam Complete: Yes Emergency Medical Condition: Yes Medical Record Reviewed: Yes Differential Diagnosis Hyponatremia versus renal failure sepsis versus pneumonia versus UTI Narrative Course Patient is a 57-year-old male who comes in due to abnormal labs. Patient is pale in color. Stool is negative for occult blood. IV established, labs sent. Labs show a sodium of 122. Creatinine is worsening, is 4.9, up from 2.28 on . Hemoglobin is 7.5, this is similar to his previous studies. UA is positive for UTI. Patient given IV fluids, Rocephin. CT abdomen and pelvis ordered. Patient will be admitted for further management. HemaPrompt Point of Care Internal Pos. & Neg. Controls: Passed Fecal Specimen Occult Blood: Negative Diagnosis Primary Impression: Hyponatremia Additional Impressions: Acute kidney injury Anemia Qualified Codes: D64.9 - Anemia, unspecified UTI (urinary tract infection) Qualified Codes: N30.00 - Acute cystitis without hematuria Admitting Information Admitting Physician Requests: Admit Juani Mendoza MD Feb 17, 2018 18:44
[2018-02-17] MEDS ORDERED: cefTRIAXone INJ 1,000 MG in SODIUM CHLORIDE 0.9% INJ 100 ML IV ONE (18:45)
[2018-02-17 18:58] LABS: BANDS 2 % (0-6); LYMPHOCYTES 11 % (9-44); METAMYELOCYTES 3 % (0-1); MONOCYTES 4 % (0-8); NEUTROPHIL # MANUAL DIFF 8.7 TH/MM3 (1.8-7.7); POLYS (SEG NEUTROPHILS) 80 % (16-70)
[2018-02-17 19:11] LABS: TOXIC GRANULATION 2+ (NORMAL)
[2018-02-17 19:12] LABS: SPHEROCYTES OCC (NORMAL)
--- NOTE | 2018-02-17 19:25 | RADRPT ---
EXAM DATE: 02/17/2018 6:39 PM EDT AGE/SEX: 57 years / Male INDICATIONS: Abdomen pain. Altered mental status. CLINICAL DATA: This is the patient's initial encounter. Patient reports that signs and symptoms have been present for 1 day and indicates a pain score of 0/10. MEDICAL/SURGICAL HISTORY: Hypertension. Diabetes mellitus type II. Renal failure, acute. PAULETTE D Non-responsive. RADIATION DOSE: 15.03 CTDI (mGy) COMPARISON: [facility], CT ABDOMEN & PELVIS W/O CONTRAST, 01/14/2018. . TECHNIQUE: Multiple contiguous axial images were obtained through the abdomen. Images were obtained using multiple row detector helical technique. Using dose reduction techniques, radiation dose was ke pt as low as reasonably achievable to obtain optimal diagnostic quality images. FINDINGS: Moderate bilateral pleural effusions with basilar lung consolidation. Trace pericardial fluid. No acute findings in the liver, spleen, adrenals, kidneys or pancreas. Pericholecystic fluid present. Fat-containing umbilical hernia measuring about 5 cm in diameter. Small amount of free fluid within the abdomen and pelvis. Mild anasarca. Previously identified mildly enlarged left para-aortic lymph nodes again visualized, not significantl y changed. No bowel obstruction. No free air. CONCLUSION: 1. Moderate bilateral pleural effusions and compressive atelectasis which is a new finding since January 14. 2. Small amount free fluid with anasarca. 3. Pericholecystic fluid without definite gallstones. 4. 5 cm fat-containing periumbilical hernia, stable. 5. No bowel obstruction or free air. Electronically signed by: Marcio Hansen MD 02/17/2018 7:23 PM EDT
[2018-02-17] MEDS ORDERED: LACTULOSE SYRUP 20 GM/30 ML CUP PO PRN (19:45)
[2018-02-17] MEDS ORDERED: SENNOSIDES 8.6 MG TAB PO PRN (19:45)
[2018-02-17] MEDS ORDERED: MAGNESIUM HYDROXIDE SUSP 30 ML CUP PO PRN (19:45)
[2018-02-17] MEDS ORDERED: SODIUM CHLORIDE 0.9% FLUSH 10 ML FLUSH IV FLUSH PRN (19:45)
[2018-02-17] MEDS ORDERED: ACETAMINOPHEN 325 MG TAB PO PRN (19:45)
[2018-02-17] MEDS ORDERED: NALOXONE HCL 0.4 MG/ML AMP IV PUSH PRN (19:45)
[2018-02-17] MEDS ORDERED: BISACODYL 10 MG SUPP RECTAL PRN (19:45)
[2018-02-17] MEDS ORDERED: METOCLOPRAMIDE HCL 10 MG/2 ML VIAL IV PUSH PRN (19:45)
[2018-02-17] MEDS ORDERED: GLUCAGON 1 MG/ML VIAL OTHER PRN (20:30)
[2018-02-17] MEDS ORDERED: DEXTROSE 50% IN WATER 50 ML VIAL(D50) IV PUSH PRN (20:30)
--- NOTE | 2018-02-17 20:36 | HHI.HP ---
[facility] Frandy House MD Admission Diagnosis Hyponatremia, anemia, BISHOP, UTI Diagnoses: Travel History International Travel<30 Days: No Contact w/Intl Traveler <30 Da: No Traveled to Known Affected Are: No History of Present Illness 57-year-old male with a past medical history significant for bilateral foot cellulitis/abscess with group a strep septicemia (on cefazolin and Flagyl until 02/27/18 per infectious disease), acute kidney injury requiring hemodialysis, C. difficile, hepatitis C, anemia, diabetes mellitus, schizophrenia and hypertension presents to the emergency department for the evaluation of abnormal labs. The patient currently resides in a [facility]pc and had routine labs done showing anemia, worsening renal function and hyponatremia. The patient complains only of being very tired. He denies any dizziness or loss of consciousness. He reports that it has been 2 days since he last urinated. Denies chest pain or shortness of breath. Complains of some diffuse pelvic pain , now resolved. No nausea/vomiting/diarrhea. No lateralizing signs/symptoms. No fevers/chills. Review of Systems Except as stated in HPI: all other systems reviewed are Neg Past Family Social History Past Medical History bilateral foot cellulitis/abscess with group a strep septicemia (on cefazolin and Flagyl until 02/27/18 per infectious disease), acute kidney injury requiring hemodialysis, C. difficile, hepatitis C, anemia, diabetes mellitus, schizophrenia and hypertension Past Surgical History Incision and drainage both feet Reported Medications Reported Meds & Active Scripts Active Epinephrine Inj 1 Mg/Ml (1 Ml) Inj 0.3 Mg SQ ONCE PRN Give with any signs of respiratory distress. Cefazolin Inj (Cefazolin Sodium/Dextrose) 1 Gm/50 Ml Bagp 1 Gm IV Q12HR 23 Days Flagyl (Metronidazole) 500 Mg Tab 500 Mg PO Q8HR Hydrocodone-Acetaminophen 10-325 mg Tab 1 Tab PO BID PRN Vistaril (Hydroxyzine Pamoate) 50 Mg Cap 50 Mg PO BID Norvasc (Amlodipine Besylate) 10 Mg Tab 10 Mg PO DAILY Reported Novolin R Inj (Insulin Human Regular) 1,000 Unit/10 Ml Vial 2-10 Units SQ ACHS Sliding Scale: 150-199=2 units, 200-249=4 units, 250-299=6 units, 300-349=8 units, 350+=10 units Normal Saline Flush (Sodium Chloride Flush) 0.9 % Inj 10 Ml IV FLUSH Q12HR Heparin Lock Flush 100 Unit/ml (Heparin Sodium,Porcine/Pf) 100 Unit/Ml (1 Ml) Vial 5 Ml IV FLUSH Q12HR Flush with NS 10ml followed by Heparin 5ml after each use Ferrous Sulfate 325 Mg (65 Mg Iron) Tablet 325 Mg PO DAILY Thioridazine (Thioridazine HCl) 100 Mg Tab 200 Mg PO DAILY Allergies: Coded Allergies: haloperidol (Verified Allergy, Severe, BLINDNESS, 01/14/18) vancomycin (Verified Allergy, Severe, 01/14/18) levofloxacin (Verified Allergy, Intermediate, Cramping, 01/14/18) fluphenazine (Verified Allergy, Unknown, "PARKINSONIAN SHACKS", 01/14/18) codeine (Verified Adverse Reaction, Mild, 01/14/18) "makes me feel funny" but feels ok taking [place]'s *MDRO Multi-Drug Resistant Organism (Verified Adverse Reaction, Unknown, VRE, 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 Reports drinking 2 beers daily prior to this. Denies tobacco and illicit drugs. Physical Exam Vital Signs Vital Signs Date Time Temp Pulse Resp B/P (MAP) Pulse Ox O2 Delivery O2 Flow Rate FiO2 02/17/18 18:01 83 18 96/64 (75) 100 Room Air 02/17/18 17:04 97.7 82 18 100/49 (66) 99 Nasal Cannula 2.00 02/17/18 16:56 90 18 98 Nasal Cannula 2.00 02/17/18 16:53 81 18 95/53 (67) 96 Nasal Cannula 2.00 Physical Exam GENERAL: male lying in bed SKIN: No rashes, ecchymoses or lesions. Cool and dry. Bilateral lower extremity wounds wrapped, dressings clean/dry/intact HEAD: Atraumatic. Normocephalic. No temporal or scalp tenderness. EYES: Pupils equal round and reactive. Extraocular motions intact. No scleral icterus. No injection or drainage. ENT: Nose without bleeding, purulent drainage or septal hematoma. Throat without erythema, tonsillar hypertrophy or exudate. Uvula midline. Airway patent. NECK: Trachea midline. No JVD or lymphadenopathy. Supple, nontender, no meningeal signs. CARDIOVASCULAR: Regular rate and rhythm without murmurs, gallops, or rubs. RESPIRATORY: Clear to auscultation. Breath sounds equal bilaterally. No wheezes , rales, or rhonchi. GASTROINTESTINAL: Abdomen soft, non-tender, nondistended. No hepato-splenomegaly , or palpable masses. No guarding. MUSCULOSKELETAL: Extremities without clubbing, cyanosis, or edema. No joint tenderness, effusion, or edema noted. No calf tenderness. NEUROLOGICAL: Awake and alert. Cranial nerves II through XII intact. Motor and sensory grossly within normal limits. Normal speech. Laboratory Laboratory Tests Test 02/17/18 17:21 02/17/18 17:27 02/17/18 17:32 White Blood Count 10.2 Red Blood Count 2.58 Hemoglobin 7.5 Hematocrit 22.7 Mean Corpuscular Volume 88.2 Mean Corpuscular Hemoglobin 29.2 Mean Corpuscular Hemoglobin Concent 33.0 Red Cell Distribution Width 15.5 Platelet Count 408 Mean Platelet Volume 9.4 Neutrophils (%) (Auto) 69.9 Lymphocytes (%) (Auto) 17.4 Monocytes (%) (Auto) 11.5 Eosinophils (%) (Auto) 0.2 Basophils (%) (Auto) 1.0 Neutrophils # (Auto) 7.2 Lymphocytes # (Auto) 1.8 Monocytes # (Auto) 1.2 Eosinophils # (Auto) 0.0 Basophils # (Auto) 0.1 CBC Comment AUTO DIFF Differential Total Cells Counted 100 Neutrophils % (Manual) 80 Band Neutrophils % 2 Lymphocytes % 11 Monocytes % 4 Neutrophils # (Manual) 8.7 Metamyelocytes 3 Differential Comment FINAL DIFF MANUAL Toxic Granulation 2+ Platelet Estimate NORMAL Platelet Morphology Comment NORMAL Basophilic Stippling FAINT Spherocytes OCC Red Cell Morphology Comment Prothrombin Time 20.7 Prothromb Time International Ratio 2.0 Activated Partial Thromboplast Time 41.1 Blood Urea Nitrogen 44 Creatinine 4.90 Random Glucose 160 Total Protein 8.7 Albumin 1.3 Calcium Level 8.8 Alkaline Phosphatase 455 Aspartate Amino Transf (AST/SGOT) 140 Alanine Aminotransferase (ALT/SGPT) 7 Total Bilirubin 0.4 Sodium Level 122 Potassium Level 5.4 Chloride Level 96 Carbon Dioxide Level 16.1 Anion Gap 10 Estimat Glomerular Filtration Rate 12 Lactic Acid Level 1.7 Urine Color DARK-BROWN Urine Turbidity HAZY Urine pH 5.5 Urine Specific [place] 1.024 Urine Protein 100 Urine Glucose (UA) NEG Urine Ketones TRACE Urine Occult Blood MOD Urine Nitrite NEG Urine Bilirubin NEG Urine Urobilinogen LESS THAN 2.0 Urine Leukocyte Esterase LARGE Urine RBC 14 Urine WBC 47 Urine Squamous Epithelial Cells 1 Urine Amorphous Sediment RARE Urine Bacteria FEW Microscopic Urinalysis Comment CATH-CULTURE IND Date/Time Source Procedure Growth Status 02/17/18 17:32 Urine Catheterized Urine Urine Culture Pending Worksheet Result Diagram: 02/17/18 1721 02/17/18 1721 Dean VTE Risk Assessment Dean VTE Risk Assessment: No/Low Risk (score <= 1) Eddierini Risk Assessment Model Point Value = 1 Point Value = 2 Point Value = 3 Point Value = 5 Age 41-60 Minor surgery BMI > 25 kg/m2 Swollen legs Varicose veins or History of unexplained or recurrent spontaneous Oral contraceptives or hormone replacement Sepsis (< 1 month) Serious lung disease, including pneumonia (< 1 month) Abnormal pulmonary function Acute myocardial infarction Congestive heart failure (< 1 month) History of inflammatory bowel disease Medical patient at bed rest Age 61-74 Arthroscopic surgery Major open surgery (> 45 min) Laparoscopic surgery (> 45 min) Malignancy Confined to bed (> 72 hours) Immobilizing plaster cast Central venous access Age >= 75 History of VTE Family history of VTE Factor V Leiden Prothrombin [id number] Lupus anticoagulant Anticardiolipin antibodies Elevated serum homocysteine Heparin-induced thrombocytopenia Other congenital or acquired thrombophilia Stroke (< 1 month) Elective arthroplasty Hip, pelvis, or leg fracture Acute spinal cord injury (< 1 month) Prophylaxis Regimen Total Risk Factor Score Risk Level Prophylaxis Regimen 0-1 Low Early ambulation 2 Moderate Order ONE of the following: *Sequential Compression Device (SCD) *Heparin 5000 units SQ BID 3-4 Higher Order ONE of the following medications: *Heparin 5000 units SQ TID *Enoxaparin/Lovenox 40 mg SQ daily (WT < 150 kg, CrCl > 30 mL/min) *Enoxaparin/Lovenox 30 mg SQ daily (WT < 150 kg, CrCl > 10-29 mL/min) *Enoxaparin/Lovenox 30 mg SQ BID (WT < 150 kg, CrCl > 30 mL/min) AND/OR *Sequential Compression Device (SCD) 5 or more Highest Order ONE of the following medications: *Heparin 5000 units SQ TID (Preferred with Epidurals) *Enoxaparin/Lovenox 40 mg SQ daily (WT < 150 kg, CrCl > 30 mL/min) *Enoxaparin/Lovenox 30 mg SQ daily (WT < 150 kg, CrCl > 10-29 mL/min) *Enoxaparin/Lovenox 30 mg SQ BID (WT < 150 kg, CrCl > 30 mL/min) AND *Sequential Compression Device (SCD) Assessment and Plan Assessment and Plan Assessment/plan: 1. Acute kidney injury Creatinine 4.9, baseline 2.5 -history of acute renal failure requiring hemodialysis during last hospitalization Status post IV fluid hydration in the fpc Renal ultrasound pending Nephrology consulted, appreciate recommendations 2. Hyponatremia Sodium 122, baseline 138 Gentle IV fluid hydration Fluid restriction 3. Hyperkalemia Potassium 5.4, no EKG changes, personally reviewed Repeat BMP in a.m. 4. Bilateral foot cellulitis Continue Ancef until 02/27/18 per infectious disease recommendations Wound care consulted, appreciate assistance 5. C. difficile Continue Flagyl until 02/27/18 6. Diabetes mellitus Sliding-scale insulin Monitor blood glucose 7. Schizophrenia/hypertension Continue home medication 8. Anemia H&H 7.5/22.7, baseline hemoglobin approximately 8 Monitor and transfuse as needed FEN Diabetic diet Electrolytes: As above NS at 50 cc/hour Physician Certification 2 Midnight Certification Type: Admission for Inpatient Services Order for Inpatient Services The services are ordered in accordance with Medicare regulations or non- Medicare payer requirements, as applicable. In the case of services not specified as inpatient-only, they are appropriately provided as inpatient services in accordance with the 2-midnight benchmark. Estimated LOS (days): 2 2 days is the estimated time the patient will need to remain in the hospital, assuming treatment plan goals are met and no additional complications. Post-Hospital Plan: Not yet determined Meghan Hayes MD Feb 17, 2018 20:36
[2018-02-17 21:00] VITALS: BP 101/67; PULSE 88; RESP 18; O2SAT 100
[2018-02-17] MEDS ORDERED: ceFAZolin INJ 1,000 MG VIAL IV SCH (21:00)
[2018-02-17 23:40] VITALS: BP 99/49; PULSE 84; RESP 18; TEMP 97.3; O2SAT 94
[2018-02-17 23:43] VITALS: PULSE 80
[2018-02-18] VITALS (14 sets, daily range): BP systolic 86–99; BP diastolic 47–55; PULSE 64–87; RESP 16–20; TEMP 97.2–98.8; O2SAT 93–100
[2018-02-18] MEDS: INSULIN ASPART SUPPLEMENTAL SCALE SQ SCH ×5 (00:02→21:00)
[2018-02-18] MEDS: SODIUM CHLOR 0.9% 1000 ML INJ 1,000 ML IV SCH ×2 (00:03→15:30)
[2018-02-18] MEDS: ceFAZolin 1,000 MG/NS 100 ML IV SCH ×6 (00:06→22:30)
[2018-02-18 05:31] LABS: AUTOMATED NEUTROPHIL # 9.3 TH/MM3 (1.8-7.7); BASOPHIL # 0.1 TH/MM3 (0-0.2); BASOPHIL % 0.9 % (0.0-2.0); EOSINOPHIL % 0.3 % (0.0-4.0); LYMPHOCYTE # 1.8 TH/MM3 (1.0-4.8); MEAN CELL VOLUME 88.3 FL (80.0-100.0); MEAN CORPUSCULAR HEMOGLOBIN 28.6 PG (27.0-34.0); MEAN CORPUSCULAR HGB CONC 32.4 % (32.0-36.0); MEAN PLATELET VOLUME 9.3 FL (7.0-11.0); MONO % 10.5 % (0.0-8.0); MONOCYTE # 1.3 TH/MM3 (0-0.9); NEUT % 74.3 % (16.0-70.0); PLATELET COUNT 399 TH/MM3 (150-450); RED BLOOD COUNT 2.33 MIL/MM3 (4.50-5.90); RED CELL DISTRIBUTION WIDTH 15.2 % (11.6-17.2); WHITE BLOOD COUNT 12.5 TH/MM3 (4.0-11.0)
[2018-02-18 05:44] LABS: HEMATOCRIT 20.6 % (39.0-51.0); HEMOGLOBIN 6.7 GM/DL (13.0-17.0)
[2018-02-18 05:55] LABS: BICARBONATE 13.8 MEQ/L (21.0-32.0); CALCIUM 8.7 MG/DL (8.5-10.1); CREATININE 4.97 MG/DL (0.60-1.30)
[2018-02-18] MEDS ORDERED: SODIUM CHLOR 0.9% 250 ML INJ 250 ML IV ONE (06:00)
[2018-02-18] MEDS: metroNIDAZOLE 500 MG TAB PO SCH ×4 (06:19→22:36)
[2018-02-18] MEDS: SODIUM CHLORIDE 0.9% FLUSH 10 ML FLUSH IV FLUSH SCH ×3 (07:59→22:31)
[2018-02-18 08:22] LABS: BANDS 6 % (0-6); CORRECTED NUCLEATED RBC 6 /100 WBC (0-0); LYMPHOCYTES 11 % (9-44); MONOCYTES 5 % (0-8); NEUTROPHIL # MANUAL DIFF 10.5 TH/MM3 (1.8-7.7); NUCLEATED RED BLOOD CELL 6 (0-0); POLYS (SEG NEUTROPHILS) 78 % (16-70)
[2018-02-18] MEDS ORDERED: THIORIDAZINE PO SCH (09:00)
[2018-02-18] MEDS: FERROUS SULFATE 325 MG (65 MG ELEMENTAL IRON) TAB PO SCH (09:10)
--- NOTE | 2018-02-18 09:16 | PD.CONS ---
[facility] Service Nephrology Consult Requested By Reason for Consult Acute on chronic kidney disease Primary Care Physician Frandy House MD History of Present Illness The patient is a poor historian, no reliable history could be obtained from him. He appears to have been sent to the hospital because of abnormal labs. Discharged recently from this facility after management of bilateral foot abscess. Patient was supposed to have been on Cefazolin and Flagyl until 14th of this month. He is noted to be in severe renal failure, metabolic acidosis, hyperkalemic, and hyponatremic. Patient has history of chronic Hepatitis C, Schizophrenia, CKD, recurrent hyponatremia, past history of ETOH abuse. Hyponatremia was thought to be secondary to polydipsia. Patient denies any bleeding. He complains of weakness. He reports that he has been having difficulty voiding. He denies diarrhea, but apparently was having vomiting. Review of Systems Constitutional: COMPLAINS OF: Fatigue Cardiovascular: DENIES: Chest pain, Lower Extremity Edema Gastrointestinal: COMPLAINS OF: Vomiting, DENIES: Black stools, Bloody stools Musculoskeletal: DENIES: Joint pain Neurologic: DENIES: Headache Past Family Social History Allergies: Coded Allergies: haloperidol (Verified Allergy, Severe, BLINDNESS, 01/14/18) vancomycin (Verified Allergy, Severe, 01/14/18) levofloxacin (Verified Allergy, Intermediate, Cramping, 01/14/18) fluphenazine (Verified Allergy, Unknown, "[employer]", 01/14/18) codeine (Verified Adverse Reaction, Mild, 01/14/18) "makes me feel funny" but feels ok taking [place]'s *MDRO Multi-Drug Resistant Organism (Verified Adverse Reaction, Unknown, VRE, 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 Past Medical History bilateral foot cellulitis/abscess with group a strep septicemia (on cefazolin and Flagyl until 02/27/18 per infectious disease), acute kidney injury requiring hemodialysis, C. difficile, hepatitis C, anemia, diabetes mellitus, schizophrenia and hypertension Past Surgical History Incision and drainage both feet Reported Medications Reported Meds & Active Scripts Active Epinephrine Inj 1 Mg/Ml (1 Ml) Inj 0.3 Mg SQ ONCE PRN Give with any signs of respiratory distress. Cefazolin Inj (Cefazolin Sodium/Dextrose) 1 Gm/50 Ml Bagp 1 Gm IV Q12HR 23 Days Flagyl (Metronidazole) 500 Mg Tab 500 Mg PO Q8HR Hydrocodone-Acetaminophen 10-325 mg Tab 1 Tab PO BID PRN Vistaril (Hydroxyzine Pamoate) 50 Mg Cap 50 Mg PO BID Norvasc (Amlodipine Besylate) 10 Mg Tab 10 Mg PO DAILY Reported Novolin R Inj (Insulin Human Regular) 1,000 Unit/10 Ml Vial 2-10 Units SQ ACHS Sliding Scale: 150-199=2 units, 200-249=4 units, 250-299=6 units, 300-349=8 units, 350+=10 units Normal Saline Flush (Sodium Chloride Flush) 0.9 % Inj 10 Ml IV FLUSH Q12HR Heparin Lock Flush 100 Unit/ml (Heparin Sodium,Porcine/Pf) 100 Unit/Ml (1 Ml) Vial 5 Ml IV FLUSH Q12HR Flush with NS 10ml followed by Heparin 5ml after each use Ferrous Sulfate 325 Mg (65 Mg Iron) Tablet 325 Mg PO DAILY Thioridazine (Thioridazine HCl) 100 Mg Tab 200 Mg PO DAILY Active Ordered Medications Current Medications Medications (Trade) Dose Ordered Sig/Portia Route Start Time Stop Time Status Last Admin Sodium Chloride 1,000 ml @ 50 mls/hr Q20H IV 02/17/18 20:00 02/18/18 00:03 (NS Flush) 2 ml UNSCH PRN IV FLUSH 02/17/18 19:45 (NS Flush) 2 ml BID IV FLUSH 02/17/18 21:00 02/18/18 07:59 (Tylenol) 650 mg Q4H PRN PO 02/17/18 19:45 (Reglan Inj) 5 mg Q6H PRN IV PUSH 02/17/18 19:45 (Narcan Inj) 0.4 mg UNSCH PRN IV PUSH 02/17/18 19:45 (Milk Of Magnesia Liq) 30 ml Q12H PRN PO 02/17/18 19:45 (Senokot) 17.2 mg Q12H PRN PO 02/17/18 19:45 (Dulcolax Supp) 10 mg DAILY PRN RECTAL 02/17/18 19:45 (Lactulose Liq) 30 ml DAILY PRN PO 02/17/18 19:45 Ceftriaxone Sodium 1000 mg/ Sodium Chloride 100 ml @ 200 mls/hr Q24H IV 02/18/18 20:00 (Norvasc) 10 mg DAILY PO 02/18/18 09:00 (Ferrous Sulfate) 325 mg DAILY PO 02/18/18 09:00 ([place] 10-325 Mg) 1 tab BID PRN PO 02/17/18 20:00 (Vistaril) 50 mg BID PO 02/17/18 21:00 02/18/18 00:00 (Flagyl) 500 mg Q8HR PO 02/17/18 22:00 02/18/18 06:19 (Heparin Central Flush) 500 unit Q12HR IV FLUSH 02/17/18 21:00 (D50w (Vial) Inj) 50 ml UNSCH PRN IV PUSH 02/17/18 20:30 (Glucagon Inj) 1 mg UNSCH PRN OTHER 02/17/18 20:30 (NovoLOG SUPPLEMENTAL SCALE) 1 ACHS SLIDING SCALE SQ 02/17/18 21:00 02/18/18 00:02 Cefazolin Sodium 1000 mg/Sodium Chloride 100 ml @ 200 mls/hr Q12H IV 02/17/18 22:00 02/18/18 00:06 (Mellaril) 200 mg DAILY PO 02/18/18 09:00 Sodium Chloride 250 ml @ 15 mls/hr ONCE ONCE IV 02/18/18 06:00 02/18/18 22:39 02/18/18 07:57 Sodium Bicarbonate 75 meq/Sodium Chloride 1,075 ml @ 75 mls/hr [id number] IV 02/18/18 09:00 UNV Family History reviewed, non contributory Social History Quit alcohol on 01/14/18. Denies tobacco and illicit drugs. t history of ETOH abuse. Physical Exam Vital Signs Vital Signs Date Time Temp Pulse Resp B/P (MAP) Pulse Ox O2 Delivery O2 Flow Rate FiO2 02/18/18 08:02 97.4 64 16 86/47 99 02/18/18 07:47 97.3 65 16 90/47 96 02/18/18 05:46 97.2 80 18 97/49 (65) 97 02/18/18 03:34 77 02/18/18 01:11 93 Nasal Cannula 3.00 02/17/18 23:43 80 02/17/18 23:40 97.3 84 18 99/49 (66) 94 02/17/18 23:40 Nasal Cannula 2.00 02/17/18 21:08 02/17/18 21:00 88 18 101/67 (78) 100 Nasal Cannula 2.00 02/17/18 18:01 83 18 96/64 (75) 100 Room Air 02/17/18 17:04 97.7 82 18 100/49 (66) 99 Nasal Cannula 2.00 02/17/18 16:56 90 18 98 Nasal Cannula 2.00 02/17/18 16:53 81 18 95/53 (67) 96 Nasal Cannula 2.00 Physical Exam GENERAL: awake, lethargic, no distress. SKIN: Warm and dry. HEAD: Normocephalic. EYES: No scleral icterus. No injection or drainage. NECK: Supple, trachea midline. No JVD or lymphadenopathy. CARDIOVASCULAR: Regular rate and rhythm without murmurs, gallops, or rubs. RESPIRATORY: Breath sounds equal bilaterally. No accessory muscle use. GASTROINTESTINAL: Abdomen soft, non-tender, nondistended. MUSCULOSKELETAL: No cyanosis, or edema. Dressing over feet and lower legs. Laboratory Laboratory Tests Test 02/17/18 17:21 02/17/18 17:27 02/17/18 17:32 02/18/18 04:00 White Blood Count 10.2 12.5 Red Blood Count 2.58 2.33 Hemoglobin 7.5 6.7 Hematocrit 22.7 20.6 Mean Corpuscular Volume 88.2 88.3 Mean Corpuscular Hemoglobin 29.2 28.6 Mean Corpuscular Hemoglobin Concent 33.0 32.4 Red Cell Distribution Width 15.5 15.2 Platelet Count 408 399 Mean Platelet Volume 9.4 9.3 Neutrophils (%) (Auto) 69.9 74.3 Lymphocytes (%) (Auto) 17.4 14.0 Monocytes (%) (Auto) 11.5 10.5 Eosinophils (%) (Auto) 0.2 0.3 Basophils (%) (Auto) 1.0 0.9 Neutrophils # (Auto) 7.2 9.3 Lymphocytes # (Auto) 1.8 1.8 Monocytes # (Auto) 1.2 1.3 Eosinophils # (Auto) 0.0 0.0 Basophils # (Auto) 0.1 0.1 CBC Comment AUTO DIFF AUTO DIFF Differential Total Cells Counted 100 100 Neutrophils % (Manual) 80 78 Band Neutrophils % 2 6 Lymphocytes % 11 11 Monocytes % 4 5 Neutrophils # (Manual) 8.7 10.5 Metamyelocytes 3 Differential Comment FINAL DIFF MANUAL FINAL DIFF MANUAL Toxic Granulation 2+ Platelet Estimate NORMAL HIGH Platelet Morphology Comment NORMAL ENLARGED Basophilic Stippling FAINT Spherocytes OCC Red Cell Morphology Comment Prothrombin Time 20.7 Prothromb Time International Ratio 2.0 Activated Partial Thromboplast Time 41.1 Blood Urea Nitrogen 44 50 Creatinine 4.90 4.97 Random Glucose 160 110 Total Protein 8.7 Albumin 1.3 Calcium Level 8.8 8.7 Alkaline Phosphatase 455 Aspartate Amino Transf (AST/SGOT) 140 Alanine Aminotransferase (ALT/SGPT) 7 Total Bilirubin 0.4 Sodium Level 122 123 Potassium Level 5.4 5.6 Chloride Level 96 96 Carbon Dioxide Level 16.1 13.8 Anion Gap 10 13 Estimat Glomerular Filtration Rate 12 12 Lactic Acid Level 1.7 Urine Color DARK-BROWN Urine Turbidity HAZY Urine pH 5.5 Urine Specific [place] 1.024 Urine Protein 100 Urine Glucose (UA) NEG Urine Ketones TRACE Urine Occult Blood MOD Urine Nitrite NEG Urine Bilirubin NEG Urine Urobilinogen LESS THAN 2.0 Urine Leukocyte Esterase LARGE Urine RBC 14 Urine WBC 47 Urine Squamous Epithelial Cells 1 Urine Amorphous Sediment RARE Urine Bacteria FEW Microscopic Urinalysis Comment CATH-CULTURE IND Nucleated Red Blood Cells 6 Date/Time Source Procedure Growth Status 02/17/18 17:32 Urine Catheterized Urine Urine Culture Pending Worksheet Result Diagram: 02/18/18 0400 02/18/18 0400 Assessment and Plan Problem List: (1) Acute kidney injury ICD Codes: N17.9 - Acute kidney failure, unspecified Plan: Exact etiology is not clear, possibilities include: ATN from hypotension and hypoperfusion. AIN due to Cefazolin or the other medications. Unlikely to be obstructive uropathy. Plan: Add bicarbonate to IVF. Avoid nephrotoxic agents. Maintain MAP above 65. If possible, consider stopping Cefazolin. If no improvement in renal function, he may need dialysis. Continue supportive care. (2) Hyperkalemia ICD Codes: E87.5 - Hyperkalemia Plan: due to reduced renal excretion resulting from renal failure, and also due to acidosis resulting in extracellular shift. Add bicarbonate to fluids, attempt to maintain non oliguric state. Monitor. May need dialysis. Insulin + dextrose today. 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 I will obtain urine Na, and urine osmolality. Monitor. (4) Anemia ICD Codes: D64.9 - Anemia, unspecified Status: Acute Plan: Rule out bleeding. Blood transfusion ordered. (5) DM (diabetes mellitus) ICD Codes: E11.9 - Type 2 diabetes mellitus without complications Status: Chronic Plan: Insulin coverage as needed, maintain blood sugar between 140 and 180. Assessment and Plan Thanks for the consult. Shaun Mcmahon MD Feb 18, 2018 09:16
--- NOTE | 2018-02-18 09:16 | RADRPT ---
EXAM DATE: 02/18/2018 8:43 AM EDT AGE/SEX: 57 years / Male INDICATIONS: Increased BUN/Creatinine. CLINICAL DATA: This is the patient's initial encounter. Patient reports that signs and symptoms have been present for 2 days and indicates a pain score of 9/10. MEDICAL/SURGICAL HISTORY: Hypertension. Gastroesophageal reflux disease. Hepatitis C. Syncop e. Diabetic neuropathy. Sleep apnea. Diabetes. Liver disease. Schizophrenia. Clostridium difficile. M ethicillin resistant Staph Aureus. Vancomycin resistant Enterococci. Acute kidney injury. Umbilical h ernia. . Bilateral foot surgery. Hemodialysis. COMPARISON: [facility] – [place], KIDNEY/RENAL/BLADDER, 01/27/2018. . No external comparison. MEASUREMENTS: Right Kidney:__13.0 x 6.1 x 5.3 cm Left Kidney:__12.9 x 5.5 x 6.5 cm FINDINGS: Right Kidney: Echotexture of the parenchyma is isoechoic to the liver. There is no hydronephrosis, st one, or mass. No cortical thinning is present. There is a mildly prominent extrarenal pelvis. Left Kidney: No hydronephrosis, stone, or mass. No cortical thinning is present. Bladder: Within normal limits given the degree of distension. Other: There is trace free fluid adjacent to the liver. Liver echotexture appears mildly increased. CONCLUSION: 1. Suspected increased echotexture of the renal parenchyma likely representing medical renal disease . No hydronephrosis is present. 2. There is trace free fluid around the liver. Electronically signed by: Sylvester Fox MD 02/18/2018 9:14 AM EDT
[2018-02-18] MEDS: THIORIDAZINE HCL 50 MG TAB PO SCH (09:38)
[2018-02-18] MEDS: SODIUM BICARBONATE 8.4% INJ 75 MEQ in SODIUM CHLOR 0.45% 1000 ML INJ 1,000 ML IV SCH (11:33)
--- NOTE | 2018-02-18 11:34 | HHI.PR ---
Subjective Remarks Follow-up acute kidney injury/Anemia of chronic disease/multiple electrolyte abnormalities/ February 18, 2018-patient seen and examined, alert and oriented 2 stated today's date was January 18, 2018. Currently receiving 1 unit packed red blood cells. Case discussed with wound care nurse at bedside who was changing patient dressing bilateral feet ulcers. Currently afebrile. Objective Vitals Vital Signs Date Time Temp Pulse Resp B/P (MAP) Pulse Ox O2 Delivery O2 Flow Rate FiO2 02/18/18 09:09 66 16 90/48 (62) 100 02/18/18 08:02 97.4 64 16 86/47 99 02/18/18 07:47 97.3 65 16 90/47 96 02/18/18 05:46 97.2 80 18 97/49 (65) 97 02/18/18 03:34 77 02/18/18 01:11 93 Nasal Cannula 3.00 02/17/18 23:43 80 02/17/18 23:40 97.3 84 18 99/49 (66) 94 02/17/18 23:40 Nasal Cannula 2.00 02/17/18 21:08 02/17/18 21:00 88 18 101/67 (78) 100 Nasal Cannula 2.00 02/17/18 18:01 83 18 96/64 (75) 100 Room Air 02/17/18 17:04 97.7 82 18 100/49 (66) 99 Nasal Cannula 2.00 02/17/18 16:56 90 18 98 Nasal Cannula 2.00 02/17/18 16:53 81 18 95/53 (67) 96 Nasal Cannula 2.00 I/O 02/17/18 02/17/18 02/17/18 02/18/18 02/18/18 02/18/18 07:00 15:00 23:00 07:00 15:00 23:00 Intake Total 10 ml Balance 10 ml Intake Blood Product IV Normal Saline Flush 10 ml # Voids 3 # Bowel Movements 1 Result Diagram: 02/18/18 0400 02/18/18 0400 Imaging Last Impressions Renal Ultrasound 02/18/18 0000 Signed Impressions: CONCLUSION: 1. Suspected increased echotexture of the renal parenchyma likely representing medical renal disease. No hydronephrosis is present. 2. There is trace free fluid around the liver. Chest X-Ray 02/17/18 0000 Signed Impressions: CONCLUSION: 1. Cardiomegaly with plain film findings suggesting some degree of vascular co ngestion or volume overload. 2. Left basilar consolidation/effusion. Abdomen/Pelvis CT 02/17/18 0000 Signed Impressions: CONCLUSION: 1. Moderate bilateral pleural effusions and compressive atelectasis which is a new finding since January 14. 2. Small amount free fluid with anasarca. 3. Pericholecystic fluid without definite gallstones. 4. 5 cm fat-containing periumbilical hernia, stable. 5. No bowel obstruction or free air. Objective Remarks GENERAL: NAD SKIN: Warm and dry.B feet ulcers HEAD: Normocephalic. EYES: No scleral icterus. No injection or drainage. NECK: Supple, trachea midline. No JVD or lymphadenopathy. CARDIOVASCULAR: Regular rate and rhythm without murmurs, gallops, or rubs. RESPIRATORY: Breath sounds equal bilaterally. No accessory muscle use. GASTROINTESTINAL: Abdomen soft, non-tender, nondistended. MUSCULOSKELETAL: No cyanosis, or edema. BACK: Nontender without obvious deformity. No CVA tenderness. A/P Problem List: (1) Acute kidney injury ICD Code: N17.9 - Acute kidney failure, unspecified Status: Resolved (2) Hyponatremia ICD Code: E87.1 - Hypo-osmolality and hyponatremia (3) Hyperkalemia ICD Code: E87.5 - Hyperkalemia (4) Hyponatremia ICD Code: E87.1 - Hypo-osmolality and hyponatremia (5) Chronic foot ulcer ICD Code: L97.509 - Non-pressure chronic ulcer of other part of unspecified foot with unspecified severity Status: Chronic (6) Symptomatic anemia ICD Code: D64.9 - Anemia, unspecified Status: Acute Assessment and Plan 57-year-old man with 1. Acute kidney injury Creatinine 4.9, baseline 2.5 -history of acute renal failure requiring hemodialysis during last hospitalization Continue IV fluid sodium bicarb Appreciate input from nephrology Renal ultrasound noted 2. Hyponatremia Management per nephrology Continue with IV fluid with sodium bicarb and monitor electrolyte 3. Hyperkalemia Management per nephrology 4. Bilateral foot cellulitis Continue Ancef until 02/27/18 per infectious disease recommendations Appreciate input from wound care nurse 5. C. difficile Continue Flagyl until 02/27/18 6. Diabetes mellitus Sliding-scale insulin Monitor blood glucose 7. Schizophrenia/hypertension Continue home medication 8. Anemia of chronic disease Transfuse 1 unit packed red blood cell today February 19, 2028 Zaid Metcalf MD Feb 18, 2018 11:34
--- NOTE | 2018-02-18 12:25 | PD.WCN.NOT ---
Wound Consult Description: Consult for WOUND MANAGEMENT of bilateral feet per Dr Hayes Communicated with: Dr Metcalf Patient Recommendation: Maxorb II and dry cover to bilateral plantar open wounds Q3D and PRN for saturation or dislodgement. Cavilon skin barrier film to Stage 1 pressure injury on Right heel, DTI's on right foot, and intact eschars on bilateral feet BID. Float bilateral feet off mattress surface with blue heel raiser boots. Additional Information: Patient seen on [facility] for bilateral feet wounds. Patient known to health technical writer from previous admission and was discharged to SNF with wound VAC to left plantar surface post surgical debridement with Dr Viavr. Left plantar foot wound measures 3.4cm x 7.5cm x 0.8cm of 100% moist pink tissue with sharp wound margins and unremarkable periwound. No active drainage and no odor noted. Wound was cleansed with NS and gauze, cultures taken per Dr Metcalf verbal instructions. Maxorb II cut in shape of wound and placed in wound bed, covered with gauze, and secured with rolled gauze and tape that is recommended to be changed Q3D and PRN. 2 intact stable eschars noted to posterior heel measuring 2.4cm x 2.4cm and 0.8cm x 2.7cm were skin prepped and left open to air and floated off mattress surface. Right plantar foot wound measures 3.5cm x 2.4cm x0.3cm of 100% pink moist tissue with open wound margins and unremarkable periwound. Wound was cleansed with NS and gauze and noted with scant active sanguinous drainage with cleansing. Maxorb II was cut and applied to wound bed and secured with a bordered gauze dressing dated today that may be changed Q3D and PRN. There is a DTI noted to right dorsal foot surface measuring 4cm x 6.3cm that was skin prepped and left open to air. A DTI noted to lateral right foot measuring 4.8cm x 2.6cm that was also skin prepped with Cavilon spray and left open to air. Right posterior heel noted with intact eschar measuring 1.4cm x 1.5cm that was skin prepped and left open to air. Right distal posterior heel S1 pressure injury of non blanching erythema noted measuring 3cm x 3cm x 0cm of intact skin was skin prepped and left open to air and floated off mattress surface. Susana Swartz [facility] Feb 18, 2018 12:25
--- NOTE | 2018-02-18 16:19 | EKG ---
Date Performed: 02/18/2018 Time Performed: 02:18:40 PTAGE: 57 years EKG: Sinus rhythm with 1st degree A-V block. Indeterminate axis Inferior/lateral ST-T changes are nonspecific Low QRS voltages in limb leads Abnormal ECG PREVIOUS TRACING 01/14/18 Frequent PVCs. Since the prior tracing, frequent PVCs are new. There h as been an overall reduction in limb lead voltage. There has been an increase in the ME interval. Cli nical correlation advised. DOCTOR: China Rivera Interpretating Date/Time 02/18/2018 16:19:26
[2018-02-18] MEDS: cefTRIAXone INJ 1,000 MG in SODIUM CHLORIDE 0.9% INJ 100 ML IV SCH (22:32)
[2018-02-19] VITALS (7 sets, daily range): BP systolic 97–103; BP diastolic 47–59; PULSE 79–88; RESP 18–20; TEMP 97.1–97.4; O2SAT 94–99
[2018-02-19] MEDS: SODIUM BICARBONATE 8.4% INJ 75 MEQ in SODIUM CHLOR 0.45% 1000 ML INJ 1,000 ML IV SCH ×2 (00:20→14:40)
[2018-02-19] MEDS: metroNIDAZOLE 500 MG TAB PO SCH ×3 (05:40→22:53)
[2018-02-19 07:48] LABS: AUTOMATED NEUTROPHIL # 10.7 TH/MM3 (1.8-7.7); BASOPHIL # 0.1 TH/MM3 (0-0.2); BASOPHIL % 0.5 % (0.0-2.0); EOSINOPHIL % 0.4 % (0.0-4.0); HEMATOCRIT 23.7 % (39.0-51.0); HEMOGLOBIN 7.9 GM/DL (13.0-17.0); LYMPH % 11.6 % (9.0-44.0); LYMPHOCYTE # 1.6 TH/MM3 (1.0-4.8); MEAN CELL VOLUME 86.3 FL (80.0-100.0); MEAN CORPUSCULAR HEMOGLOBIN 28.6 PG (27.0-34.0); MEAN CORPUSCULAR HGB CONC 33.2 % (32.0-36.0); MEAN PLATELET VOLUME 9.4 FL (7.0-11.0); MONO % 8.6 % (0.0-8.0); MONOCYTE # 1.2 TH/MM3 (0-0.9); NEUT % 78.9 % (16.0-70.0); PLATELET COUNT 365 TH/MM3 (150-450); RED BLOOD COUNT 2.75 MIL/MM3 (4.50-5.90); RED CELL DISTRIBUTION WIDTH 15.2 % (11.6-17.2); WHITE BLOOD COUNT 13.6 TH/MM3 (4.0-11.0)
[2018-02-19] MEDS: INSULIN ASPART SUPPLEMENTAL SCALE SQ SCH ×4 (08:00→20:22)
[2018-02-19 08:33] LABS: ALBUMIN 1.3 GM/DL (3.4-5.0); ALKALINE PHOSPHATASE 436 U/L (45-117); ALT (GPT) 22 U/L (12-78); AST (GOT) 494 U/L (15-37); BICARBONATE 14.5 MEQ/L (21.0-32.0); BLOOD UREA NITROGEN 55 MG/DL (7-18); CALCIUM 8.3 MG/DL (8.5-10.1); CHLORIDE 95 MEQ/L (98-107); CREATININE 5.58 MG/DL (0.60-1.30); GLOMERULAR FILTRATION RATE 11 ML/MIN (>89); GLUCOSE,RANDOM 147 MG/DL (74-106); TOTAL BILIRUBIN ADULT 0.6 MG/DL (0.2-1.0); TOTAL PROTEIN 8.1 GM/DL (6.4-8.2)
[2018-02-19 08:36] LABS: SODIUM (NA) 124 MEQ/L (136-145)
[2018-02-19] MEDS: FERROUS SULFATE 325 MG (65 MG ELEMENTAL IRON) TAB PO SCH (08:47)
[2018-02-19] MEDS: THIORIDAZINE HCL 50 MG TAB PO SCH (08:47)
[2018-02-19] MEDS: SODIUM CHLOR 0.9% 1000 ML INJ 1,000 ML IV SCH (08:48)
[2018-02-19] MEDS: SODIUM CHLORIDE 0.9% FLUSH 10 ML FLUSH IV FLUSH SCH ×2 (08:48→22:53)
[2018-02-19] MEDS ORDERED: INSULIN HUMAN REGULAR 1,000 UNITS/10 ML VIAL IV PUSH ONE (09:00)
[2018-02-19] MEDS ORDERED: DEXTROSE 50% IN WATER 50 ML SYRINGE IV PUSH ONE (09:00)
[2018-02-19] MEDS ORDERED: SODIUM BICARBONATE 8.4% INJ 50 MEQ/50 ML SYR IV PUSH ONE (09:00)
[2018-02-19] MEDS: ceFAZolin 1,000 MG/NS 100 ML IV SCH ×4 (09:04→22:48)
[2018-02-19 09:08] LABS: BANDS 2 % (0-6); CORRECTED NUCLEATED RBC 6 /100 WBC (0-0); LYMPHOCYTES 9 % (9-44); METAMYELOCYTES 1 % (0-1); MONOCYTES 4 % (0-8); NEUTROPHIL # MANUAL DIFF 11.8 TH/MM3 (1.8-7.7); NUCLEATED RED BLOOD CELL 6 (0-0); POLYS (SEG NEUTROPHILS) 84 % (16-70)
[2018-02-19] MEDS ORDERED: SODIUM CHLOR 0.9% 1000 ML INJ 1,000 ML OTHER PRN ×2 (09:35)
[2018-02-19] MEDS ORDERED: SODIUM CHLOR 0.9% 1000 ML INJ 1,000 ML IV PRN (09:35)
[2018-02-19] MEDS ORDERED: GELATIN 12 MM/7 MM FOAM TOP PRN (09:45)
[2018-02-19] MEDS ORDERED: diphenhydrAMINE HCL 25 MG CAP PO PRN (09:45)
[2018-02-19] MEDS ORDERED: cloNIDine HCL 0.1 MG TAB PO PRN (09:45)
[2018-02-19] MEDS ORDERED: MANNITOL 12.5 GM/50 ML VIAL IV PRN (09:45)
[2018-02-19] MEDS ORDERED: NITROGLYCERIN 0.4 MG SL 25 TABS/BTL SL PRN (09:45)
[2018-02-19] MEDS ORDERED: SODIUM CHLORIDE 0.9% FLUSH 10 ML FLUSH IV FLUSH PRN ×2 (09:45→13:15)
[2018-02-19] MEDS ORDERED: ONDANSETRON ODT 4 MG TAB PO PRN (09:45)
[2018-02-19] MEDS ORDERED: ACETAMINOPHEN 325 MG TAB PO PRN (09:45)
[2018-02-19] MEDS ORDERED: HEPARIN SODIUM - IV 10,000 UNITS/10 ML VIAL IV FLUSH PRN (09:45)
--- NOTE | 2018-02-19 11:12 | HHI.PR ---
Subjective Remarks Follow-up acute kidney injury/Anemia of chronic disease/multiple electrolyte abnormalities/ February 18, 2018-patient seen and examined, alert and oriented 2 stated today's date was January 18, 2018. Currently receiving 1 unit packed red blood cells. Case discussed with wound care nurse at bedside who was changing patient dressing bilateral feet ulcers. Currently afebrile. February 19, 2018-patient seen and examined, complaints of abdominal bloating and reports some shortness of breath as a result of late Objective Vitals Vital Signs Date Time Temp Pulse Resp B/P (MAP) Pulse Ox O2 Delivery O2 Flow Rate FiO2 02/19/18 08:00 97.3 83 20 101/59 (73) 94 02/19/18 04:11 79 02/19/18 03:37 97.2 82 18 97/47 (64) 99 02/19/18 00:00 97.4 81 18 101/51 (68) 96 02/18/18 23:54 76 02/18/18 20:05 84 02/18/18 20:00 Nasal Cannula 2.00 02/18/18 20:00 98.8 80 16 96/54 (68) 98 02/18/18 16:00 80 02/18/18 16:00 97.4 83 20 99/52 (68) 96 02/18/18 12:00 97.2 87 20 98/55 (69) 97 02/18/18 11:57 78 02/18/18 11:26 98.3 66 16 95/50 100 I/O 02/18/18 02/18/18 02/18/18 02/19/18 02/19/18 02/19/18 07:00 15:00 23:00 07:00 15:00 23:00 Intake Total 420 ml 120 ml Output Total 100 ml 100 ml Balance 420 ml 20 ml -100 ml Intake Oral 120 ml Packed Cells 400 ml Blood Product IV Normal Saline Flush 20 ml Output Urine Total 100 ml 100 ml Bladder Scan Volume Amount 95 ml 152 ml # Voids 3 # Bowel Movements 1 1 Result Diagram: 02/19/18 0705 02/19/18 0705 Imaging Last Impressions Renal Ultrasound 02/18/18 0000 Signed Impressions: CONCLUSION: 1. Suspected increased echotexture of the renal parenchyma likely representing medical renal disease. No hydronephrosis is present. 2. There is trace free fluid around the liver. Chest X-Ray 02/17/18 0000 Signed Impressions: CONCLUSION: 1. Cardiomegaly with plain film findings suggesting some degree of vascular co ngestion or volume overload. 2. Left basilar consolidation/effusion. Abdomen/Pelvis CT 02/17/18 0000 Signed Impressions: CONCLUSION: 1. Moderate bilateral pleural effusions and compressive atelectasis which is a new finding since January 14. 2. Small amount free fluid with anasarca. 3. Pericholecystic fluid without definite gallstones. 4. 5 cm fat-containing periumbilical hernia, stable. 5. No bowel obstruction or free air. Objective Remarks GENERAL: NAD SKIN: Warm and dry.B feet ulcers HEAD: Normocephalic. EYES: No scleral icterus. No injection or drainage. NECK: Supple, trachea midline. No JVD or lymphadenopathy. CARDIOVASCULAR: Regular rate and rhythm without murmurs, gallops, or rubs. RESPIRATORY: Breath sounds equal bilaterally. No accessory muscle use. GASTROINTESTINAL: Abdomen soft, non-tender, mildly distended. +BS MUSCULOSKELETAL: No cyanosis, or edema. BACK: Nontender without obvious deformity. No CVA tenderness. A/P Problem List: (1) Acute kidney injury ICD Code: N17.9 - Acute kidney failure, unspecified Status: Resolved (2) Hyponatremia ICD Code: E87.1 - Hypo-osmolality and hyponatremia (3) Hyperkalemia ICD Code: E87.5 - Hyperkalemia (4) Hyponatremia ICD Code: E87.1 - Hypo-osmolality and hyponatremia (5) Chronic foot ulcer ICD Code: L97.509 - Non-pressure chronic ulcer of other part of unspecified foot with unspecified severity Status: Chronic (6) Symptomatic anemia ICD Code: D64.9 - Anemia, unspecified Status: Acute Assessment and Plan 57-year-old man with 1. Acute kidney injury Creatinine 4.9, baseline 2.5 -history of acute renal failure requiring hemodialysis during last hospitalization Continue IV fluid sodium bicarb Appreciate input from nephrology Renal ultrasound noted 2. Hyponatremia Management per nephrology Continue with IV fluid with sodium bicarb and monitor electrolyte 3. Hyperkalemia Management per nephrology 4. Bilateral foot cellulitis Continue Ancef until 02/27/18 per infectious disease recommendations Appreciate input from wound care nurse 5. C. difficile Continue Flagyl until 02/27/18 6. Diabetes mellitus Sliding-scale insulin Monitor blood glucose 7. Schizophrenia/hypertension Continue home medication 8. Anemia of chronic disease s/p 1 unit packed red blood cell February 19, 2028, H&H back at his baseline Zaid Metcalf MD Feb 19, 2018 11:12
--- NOTE | 2018-02-19 11:31 | HHI.NPPN ---
Subjective Renal Failure: Acute Interval History Renal function is worse. He is oliguric, hyperkalemic, and has persistent worsening acidosis. He feels worse today, is agreeable to dialysis. (Laura Quesada) Review of Systems General Constitutional: Fatigue (Laura Quesada) Gastrointestinal Gastrointestinal: Nausea & Vomiting (Laura Quesada) Objective Data Data Vital Signs Date Time Temp Pulse Resp B/P (MAP) Pulse Ox O2 Delivery O2 Flow Rate FiO2 02/19/18 08:00 97.3 83 20 101/59 (73) 94 02/19/18 04:11 79 02/19/18 03:37 97.2 82 18 97/47 (64) 99 02/19/18 00:00 97.4 81 18 101/51 (68) 96 02/18/18 23:54 76 02/18/18 20:05 84 02/18/18 20:00 Nasal Cannula 2.00 02/18/18 20:00 98.8 80 16 96/54 (68) 98 02/18/18 16:00 80 02/18/18 16:00 97.4 83 20 99/52 (68) 96 02/18/18 12:00 97.2 87 20 98/55 (69) 97 02/18/18 11:57 78 02/18/18 11:26 98.3 66 16 95/50 100 (Laura Quesada) -: 02/19/18 0705 02/19/18 0705 Imaging Last 72 hours Impressions Renal Ultrasound 02/18/18 0000 Signed Impressions: CONCLUSION: 1. Suspected increased echotexture of the renal parenchyma likely representing medical renal disease. No hydronephrosis is present. 2. There is trace free fluid around the liver. Chest X-Ray 02/17/18 0000 Signed Impressions: CONCLUSION: 1. Cardiomegaly with plain film findings suggesting some degree of vascular co ngestion or volume overload. 2. Left basilar consolidation/effusion. Abdomen/Pelvis CT 02/17/18 0000 Signed Impressions: CONCLUSION: 1. Moderate bilateral pleural effusions and compressive atelectasis which is a new finding since January 14. 2. Small amount free fluid with anasarca. 3. Pericholecystic fluid without definite gallstones. 4. 5 cm fat-containing periumbilical hernia, stable. 5. No bowel obstruction or free air. (Laura Quesada. ORTHODONTIST VICE PRESIDENT) Physical Exam General Appearance: No Acute Distress, Malnourished (Laura Quseada ORTHODONTIST VICE PRESIDENT) Eyes Eye Exam: Pupils Equal, Pupils Reactive (Laura Quesada. ORTHODONTIST VICE PRESIDENT) Neck Neck Exam: Neck Supple (Laura Quesada ORTHODONTIST VICE PRESIDENT) Pulmonary Resp Exam: Clear Bilaterally, Breath Sounds Equal (Laura Quesada ORTHODONTIST VICE PRESIDENT) Cardiology CV Exam: Regular, Normal Sinus Rhythm (Laura Quesada ORTHODONTIST VICE PRESIDENT) Gastrointestinal/Abdomen GI Exam: Soft, Non-Tender (Laura Quesada ORTHODONTIST VICE PRESIDENT) Musculoskeletal MS Exam: Joints Intact, Atrophy, Unable to Ambulate (Laura Quesada. ORTHODONTIST VICE PRESIDENT) Integumentary Skin Exam: Warm, Dry, Intact (Laura Quesada. ORTHODONTIST VICE PRESIDENT) Extremeties Extremities Exam: No Edema, Pedal Pulses Palpable (Laura Quesada ORTHODONTIST VICE PRESIDENT) Neurologic Neuro Exam: Alert, Awake, Oriented, Speech Clear, Moving All Extremities (Laura Quesada ORTHODONTIST VICE PRESIDENT) Psychiatric Psych Exam: Appropriate Responses (Laura Quesada) Assessment/Plan Discussed Condition With: Patient Assessment Summary: BISHOP/Acute Renal Failure Electrolyte Assessment: Hyperkalemia, Metabolic Acidosis Problem List: (1) Acute kidney injury ICD Codes: N17.9 - Acute kidney failure, unspecified Plan: Exact etiology is not clear, possibilities include: ATN from hypotension and hypoperfusion. AIN due to Cefazolin or the other medications. His renal function has declined Urine output has slowed Needs to begin dialysis. NPO for vascath placement today HD today on 1K bath, repeat labs and HD tomorrow. Monitor potassium Stop bicarb gtt when dialysis starts. Verbal consent obtained Continue supportive care. It is not clear if he will require alf dialysis (2) Hyperkalemia ICD Codes: E87.5 - Hyperkalemia Plan: due to reduced renal excretion resulting from renal failure, and also due to acidosis resulting in extracellular shift. 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 Awaiting urine Na, and urine osmolality. Monitor. (4) Anemia ICD Codes: D64.9 - Anemia, unspecified Status: Acute Plan: Given blood transfusion Start epogen (5) DM (diabetes mellitus) ICD Codes: E11.9 - Type 2 diabetes mellitus without complications Status: Chronic Plan: Insulin coverage as needed, maintain blood sugar between 140 and 180. (Laura Quesada) Plan patient was seen and examined. Dialysis to be initiated from today. It is unclear at this point if dialysis will become permanent. Hyperkalemia and hyponatremia not improved so far. GFR is worse. (Shaun Mcmahon MD) Laura Quesada Feb 19, 2018 11:31 Shaun Mcmahon MD Feb 20, 2018 08:02
[2018-02-19] MEDS ORDERED: HEPARIN SODIUM - IV 2,000 UNITS/2 ML VIAL IV FLUSH PRN (13:15)
--- NOTE | 2018-02-19 14:48 | RADRPT ---
EXAM DATE: 02/19/2018 1:15 PM EDT AGE/SEX: 57 years / Male INDICATIONS: Patient with history of kidney disease in need of temporary central venous catheter ferny cement for dialysis. CLINICAL DATA: This is the patient's initial encounter. Patient reports that signs and symptoms have been present for 2 days and indicates a pain score of 7/10. MEDICAL/SURGICAL HISTORY: Hypertension. Anemia. Acute kidney injury requiring hemodialysis.Buster ateral foot cellulitis/ abscess with a group a strep septicemia.C. difficile.Hepatitis C.DM. Schizoph shadi. . Incision and drainage-both feet. COMPARISON: No prior [facility] exams available for comparison. FLUORO TIME (min): 0.62 IMAGE SERIES: 2 ACCESS SITE: Right internal jugular vein DEVICE(S): 14 Macedonian double lumen Schon catheter . . PROCEDURE : 1. Ultrasound guided venipuncture. 2. Fluoroscopic guidance. 3. Central line placement. The risks, benefits and alternatives to the procedure were explained and verbal and written consent w as obtained. The site was prepped in sterile fashion. Full sterile technique was used, including ca p, mask, sterile gloves and gown and a large sterile sheet. Hand hygiene and 2% chlorhexidine prep w as utilized per protocol for cutaneous antisepsis with appropriate dry time for site. Sterile gel an d sterile probe cover were utilized for ultrasound guidance. The skin and subcutaneous tissues were infiltrated with local anesthetic solution. A suitable site a gloria the vein was selected with ultrasound and fluoroscopic guidance. A small incision was made. Th e vein was accessed under direct ultrasound visualization using the micropuncture technique. The yousif ropuncture set was exchanged for a 0.035 wire. The tract was dilated. The catheter was advanced int o position under direct fluoroscopic visualization, and was advanced with the tip at the junction of the superior vena cava and rt atrium. The catheter was fixed in place with suture and a sterile dres sing was applied. The patient tolerated the procedure well and there were no complications. CONCLUSION: Uncomplicated ultrasound and fluoroscopic guided central venous dialysis catheter placement as above. Electronically signed by: Sylvester Estrella MD 02/19/2018 2:46 PM EDT
[2018-02-19] MEDS: EPOETIN ALFA 10,000 UNITS/ML VIAL IV PUSH PRN (15:30)
[2018-02-19] MEDS: ACETAMINOPHEN/HYDROcodone 325 MG/10 MG TAB PO PRN (22:53)
[2018-02-19] MEDS: cefTRIAXone INJ 1,000 MG in SODIUM CHLORIDE 0.9% INJ 100 ML IV SCH (22:54)
[2018-02-20] VITALS (8 sets, daily range): BP systolic 82–101; BP diastolic 42–59; PULSE 78–96; RESP 14–20; TEMP 97–97.6; O2SAT 96–99
[2018-02-20] MEDS: SODIUM BICARBONATE 8.4% INJ 75 MEQ in SODIUM CHLOR 0.45% 1000 ML INJ 1,000 ML IV SCH ×2 (05:00→18:11)
[2018-02-20] MEDS: metroNIDAZOLE 500 MG TAB PO SCH ×3 (06:55→21:31)
[2018-02-20] MEDS: INSULIN ASPART SUPPLEMENTAL SCALE SQ SCH ×4 (08:00→21:00)
[2018-02-20 08:22] LABS: ALBUMIN 1.2 GM/DL (3.4-5.0); BICARBONATE 22.7 MEQ/L (21.0-32.0); CREATININE 4.63 MG/DL (0.60-1.30); PHOSPHORUS 2.6 MG/DL (2.5-4.9)
[2018-02-20 08:29] LABS: CALCIUM 7.4 MG/DL (8.5-10.1)
--- NOTE | 2018-02-20 09:14 | HHI.NPPN ---
Subjective Renal Failure: Acute Interval History Looks ill. Incoherent speech. Had dialysis yesterday. Looks pale. Review of Systems General Constitutional: Fatigue Gastrointestinal Gastrointestinal: Nausea & Vomiting Objective Data Data Vital Signs Date Time Temp Pulse Resp B/P (MAP) Pulse Ox O2 Delivery O2 Flow Rate FiO2 02/20/18 04:00 86 02/20/18 04:00 97.1 88 20 100/54 (69) 97 02/20/18 00:00 83 02/20/18 00:00 97.6 86 20 101/56 (71) 98 02/19/18 20:30 Nasal Cannula 4.00 21 02/19/18 20:00 97.2 86 20 103/52 (69) 98 02/19/18 20:00 88 02/19/18 17:24 94 21 -: 02/19/18 0705 02/20/18 0630 Physical Exam General Appearance: No Acute Distress, Malnourished Appearance Remarks looks pale Eyes Eye Exam: Pupils Equal, Pupils Reactive Neck Neck Exam: Neck Supple Pulmonary Resp Exam: Clear Bilaterally, Breath Sounds Equal Cardiology CV Exam: Regular, Normal Sinus Rhythm Gastrointestinal/Abdomen GI Exam: Soft, Non-Tender Musculoskeletal MS Exam: Joints Intact, Atrophy, Unable to Ambulate Integumentary Skin Exam: Warm, Dry, Intact Extremeties Extremities Exam: No Edema, Pedal Pulses Palpable Neurologic Neuro Exam: Alert, Awake, Oriented, Speech Clear, Moving All Extremities Psychiatric Psych Exam: Appropriate Responses Assessment/Plan Discussed Condition With: Patient Assessment Summary: BISHOP/Acute Renal Failure Electrolyte Assessment: Hyperkalemia, Metabolic Acidosis Problem List: (1) Acute kidney injury ICD Codes: N17.9 - Acute kidney failure, unspecified Plan: Exact etiology is not clear, possibilities include: ATN from hypotension and hypoperfusion. AIN due to Cefazolin or the other medications. His renal function has declined Initiated dialysis yesterday. We will dialyze him again today. Prognosis is poor. Avoid nephrotoxic agents. Monitor intake and output. (2) Hyperkalemia ICD Codes: E87.5 - Hyperkalemia Plan: Dialyzed yesterday, improved. 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 Improved after dialysis. Monitor. (4) Anemia ICD Codes: D64.9 - Anemia, unspecified Status: Acute Plan: Given blood transfusion Started epogen Repeat labs. Obtain iron studies. (5) DM (diabetes mellitus) ICD Codes: E11.9 - Type 2 diabetes mellitus without complications Status: Chronic Plan: Insulin coverage as needed, maintain blood sugar between 140 and 180. Shaun Mcmahon MD Feb 20, 2018 09:14
[2018-02-20] MEDS: FERROUS SULFATE 325 MG (65 MG ELEMENTAL IRON) TAB PO SCH (11:43)
[2018-02-20] MEDS: THIORIDAZINE HCL 50 MG TAB PO SCH (11:43)
[2018-02-20] MEDS: SODIUM CHLORIDE 0.9% FLUSH 10 ML FLUSH IV FLUSH SCH ×2 (11:44→21:29)
[2018-02-20] MEDS: ceFAZolin 1,000 MG/NS 100 ML IV SCH ×4 (11:44→21:30)
--- NOTE | 2018-02-20 12:02 | HHI.PR ---
Subjective Remarks Follow-up acute kidney injury/Anemia of chronic disease/multiple electrolyte abnormalities/ February 18, 2018-patient seen and examined, alert and oriented 2 stated today's date was January 18, 2018. Currently receiving 1 unit packed red blood cells. Case discussed with wound care nurse at bedside who was changing patient dressing bilateral feet ulcers. Currently afebrile. February 19, 2018-patient seen and examined, complaints of abdominal bloating and reports some shortness of breath as a result of late February 20, 2018-patient seen and examined, appears lethargic and patient is now willing to go to hospice. BP soft. Heading back for hemodialysis again today. Objective Vitals Vital Signs Date Time Temp Pulse Resp B/P (MAP) Pulse Ox O2 Delivery O2 Flow Rate FiO2 02/20/18 09:52 Nasal Cannula 4.00 02/20/18 08:00 78 02/20/18 08:00 97.3 85 16 82/42 (55) 96 02/20/18 04:00 86 02/20/18 04:00 97.1 88 20 100/54 (69) 97 02/20/18 00:00 83 02/20/18 00:00 97.6 86 20 101/56 (71) 98 02/19/18 20:30 Nasal Cannula 4.00 21 02/19/18 20:00 97.2 86 20 103/52 (69) 98 02/19/18 20:00 88 02/19/18 17:24 94 21 I/O 02/19/18 02/19/18 02/19/18 02/20/18 02/20/18 02/20/18 07:00 15:00 23:00 07:00 15:00 23:00 Intake Total 100 ml 720 ml Output Total 100 ml 1500 ml Balance -100 ml 100 ml -1500 ml 720 ml Intake Oral 720 ml IV Total 100 ml Output Urine Total 100 ml Hemodialysis 1500 ml Bladder Scan Volume Amount 152 ml # Voids 0 # Bowel Movements 1 Result Diagram: 02/19/18 0705 02/20/18 0630 Imaging Last Impressions Catheter Placement X-Ray 02/19/18 0000 Signed Impressions: CONCLUSION: Uncomplicated ultrasound and fluoroscopic guided central venous dialysis cathet er placement as above. Renal Ultrasound 02/18/18 0000 Signed Impressions: CONCLUSION: 1. Suspected increased echotexture of the renal parenchyma likely representing medical renal disease. No hydronephrosis is present. 2. There is trace free fluid around the liver. Chest X-Ray 02/17/18 Signed Impressions: CONCLUSION: 1. Cardiomegaly with plain film findings suggesting some degree of vascular co ngestion or volume overload. 2. Left basilar consolidation/effusion. Abdomen/Pelvis CT 02/17/18 Signed Impressions: CONCLUSION: 1. Moderate bilateral pleural effusions and compressive atelectasis which is a new finding since January 14. 2. Small amount free fluid with anasarca. 3. Pericholecystic fluid without definite gallstones. 4. 5 cm fat-containing periumbilical hernia, stable. 5. No bowel obstruction or free air. Objective Remarks GENERAL: NAD and very sick looking SKIN: Warm and dry.B feet ulcers HEAD: Normocephalic. EYES: No scleral icterus. No injection or drainage. NECK: Supple, trachea midline. No JVD or lymphadenopathy. CARDIOVASCULAR: Regular rate and rhythm without murmurs, gallops, or rubs. RESPIRATORY: Breath sounds equal bilaterally. No accessory muscle use. GASTROINTESTINAL: Abdomen soft, non-tender, mildly distended. +BS MUSCULOSKELETAL: No cyanosis, or edema. BACK: Nontender without obvious deformity. No CVA tenderness. A/P Problem List: (1) Acute kidney injury ICD Code: N17.9 - Acute kidney failure, unspecified Status: Resolved (2) Hyponatremia ICD Code: E87.1 - Hypo-osmolality and hyponatremia (3) Hyperkalemia ICD Code: E87.5 - Hyperkalemia (4) Hyponatremia ICD Code: E87.1 - Hypo-osmolality and hyponatremia (5) Chronic foot ulcer ICD Code: L97.509 - Non-pressure chronic ulcer of other part of unspecified foot with unspecified severity Status: Chronic (6) Symptomatic anemia ICD Code: D64.9 - Anemia, unspecified Status: Acute Assessment and Plan 57-year-old man with 1. Acute kidney injury Creatinine 4.9, baseline 2.5 -history of acute renal failure requiring hemodialysis during last hospitalization Patient received first hemodialysis yesterday February 19, 2018, and heading back again today for another session of HD Patient's conditions however is guarded with a poor prognosis, therefore will consult hospice 2. Hyponatremia-improving post HD Management per nephrology Continue with IV fluid with sodium bicarb and monitor electrolyte 3. Hyperkalemia-improving post HD Management per nephrology 4. Bilateral foot cellulitis Continue Ancef until 02/27/18 per infectious disease recommendations Wound culture positive for Klebsiella pneumonia-ESBL, reconsider consultation from ID Appreciate input from wound care nurse 5. C. difficile Continue Flagyl until 02/27/18 6. Diabetes mellitus Sliding-scale insulin Monitor blood glucose 7. Schizophrenia/hypertension Continue home medication 8. Anemia of chronic disease s/p 1 unit packed red blood cell February 19, 2028, H&H back at his baseline Continue Epogen Hypotension All antihypertensive medication Caution with fluid removal We will start Zaid Mccormack MD Feb 20, 2018 12:02
[2018-02-20 12:43] LABS: AUTOMATED NEUTROPHIL # 7.8 TH/MM3 (1.8-7.7); BASOPHIL # 0.1 TH/MM3 (0-0.2); BASOPHIL % 0.9 % (0.0-2.0); EOSINOPHIL # 0.1 TH/MM3 (0-0.4); EOSINOPHIL % 0.9 % (0.0-4.0); HEMATOCRIT 22.1 % (39.0-51.0); HEMOGLOBIN 7.2 GM/DL (13.0-17.0); LYMPH % 17.5 % (9.0-44.0); MEAN CELL VOLUME 87.7 FL (80.0-100.0); MEAN CORPUSCULAR HEMOGLOBIN 28.6 PG (27.0-34.0); MEAN CORPUSCULAR HGB CONC 32.6 % (32.0-36.0); MONO % 11.4 % (0.0-8.0); MONOCYTE # 1.3 TH/MM3 (0-0.9); NEUT % 69.3 % (16.0-70.0); PLATELET COUNT 345 TH/MM3 (150-450); RED BLOOD COUNT 2.52 MIL/MM3 (4.50-5.90); RED CELL DISTRIBUTION WIDTH 15.3 % (11.6-17.2); WHITE BLOOD COUNT 11.3 TH/MM3 (4.0-11.0)
[2018-02-20 13:35] LABS: BANDS 10 % (0-6); CORRECTED NUCLEATED RBC 10 /100 WBC (0-0); LYMPHOCYTES 12 % (9-44); MONOCYTES 5 % (0-8); NEUTROPHIL # MANUAL DIFF 9.3 TH/MM3 (1.8-7.7); NUCLEATED RED BLOOD CELL 10 (0-0); POLYS (SEG NEUTROPHILS) 72 % (16-70)
[2018-02-20 13:37] LABS: TARGET CELLS 1+ (NORMAL)
[2018-02-20] MEDS: ALBUMIN 25% INJ 100 ML IV PRN (14:38)
[2018-02-20] MEDS: MIDODRINE 5 MG TAB PO SCH (17:00)
[2018-02-20] MEDS: cefTRIAXone INJ 1,000 MG in SODIUM CHLORIDE 0.9% INJ 100 ML IV SCH (21:30)
[2018-02-20] MEDS: ACETAMINOPHEN/HYDROcodone 325 MG/10 MG TAB PO PRN (21:32)
[2018-02-21] VITALS (10 sets, daily range): BP systolic 74–95; BP diastolic 38–54; PULSE 77–102; RESP 16–18; TEMP 97.2–97.7; O2SAT 95–98
[2018-02-21] MEDS: metroNIDAZOLE 500 MG TAB PO SCH ×3 (06:31→20:32)
[2018-02-21] MEDS: MIDODRINE 5 MG TAB PO SCH ×3 (06:31→17:46)
[2018-02-21 06:52] LABS: AUTOMATED NEUTROPHIL # 5.3 TH/MM3 (1.8-7.7); BASOPHIL # 0.1 TH/MM3 (0-0.2); BASOPHIL % 1.1 % (0.0-2.0); EOSINOPHIL # 0.2 TH/MM3 (0-0.4); EOSINOPHIL % 2.5 % (0.0-4.0); HEMATOCRIT 21.6 % (39.0-51.0); HEMOGLOBIN 7.3 GM/DL (13.0-17.0); LYMPH % 16.7 % (9.0-44.0); LYMPHOCYTE # 1.3 TH/MM3 (1.0-4.8); MEAN CORPUSCULAR HEMOGLOBIN 29.5 PG (27.0-34.0); MEAN CORPUSCULAR HGB CONC 33.9 % (32.0-36.0); MEAN PLATELET VOLUME 9.8 FL (7.0-11.0); MONO % 9.8 % (0.0-8.0); MONOCYTE # 0.7 TH/MM3 (0-0.9); NEUT % 69.9 % (16.0-70.0); PLATELET COUNT 280 TH/MM3 (150-450); RED BLOOD COUNT 2.48 MIL/MM3 (4.50-5.90); RED CELL DISTRIBUTION WIDTH 15.4 % (11.6-17.2); WHITE BLOOD COUNT 7.6 TH/MM3 (4.0-11.0)
[2018-02-21 07:09] LABS: % SATURATION IRON PROFILE 97.8 % (20-50); IRON (FE) 63 MCG/DL (65-175); TOTAL IRON BINDING CAPACITY 64 MCG/DL (250-450)
[2018-02-21] MEDS: INSULIN ASPART SUPPLEMENTAL SCALE SQ SCH ×4 (08:00→20:32)
[2018-02-21 08:16] LABS: BANDS 3 % (0-6); BASOPHILS 2 % (0-2); CORRECTED NUCLEATED RBC 7 /100 WBC (0-0); LYMPHOCYTES 10 % (9-44); METAMYELOCYTES 2 % (0-1); MONOCYTES 2 % (0-8); MYELOCYTES 1 % (0-0); NEUTROPHIL # MANUAL DIFF 6.2 TH/MM3 (1.8-7.7); NUCLEATED RED BLOOD CELL 7 (0-0); POLYS (SEG NEUTROPHILS) 76 % (16-70)
[2018-02-21 08:17] LABS: TARGET CELLS 1+ (NORMAL)
[2018-02-21] MEDS: SODIUM CHLORIDE 0.9% FLUSH 10 ML FLUSH IV FLUSH SCH ×2 (08:57→20:34)
[2018-02-21] MEDS: FERROUS SULFATE 325 MG (65 MG ELEMENTAL IRON) TAB PO SCH (08:57)
[2018-02-21] MEDS: ceFAZolin 1,000 MG/NS 100 ML IV SCH ×4 (08:58→20:33)
[2018-02-21] MEDS: THIORIDAZINE HCL 50 MG TAB PO SCH (08:58)
[2018-02-21] MEDS: SODIUM BICARBONATE 8.4% INJ 75 MEQ in SODIUM CHLOR 0.45% 1000 ML INJ 1,000 ML IV SCH (09:00)
--- NOTE | 2018-02-21 10:08 | HHI.NPPN ---
Subjective Renal Failure: Acute Interval History More alert today. He refused hospice consultation. Pending labs from today. He was dialyzed yesterday. (Laura Quesada) Review of Systems General Constitutional: Fatigue (Laura Quesada) Gastrointestinal Gastrointestinal: Nausea & Vomiting (Laura Quesada) Objective Data Data Vital Signs Date Time Temp Pulse Resp B/P (MAP) Pulse Ox O2 Delivery O2 Flow Rate FiO2 02/21/18 08:00 97.3 81 16 86/50 (62) 96 02/21/18 07:17 Nasal Cannula 4.00 02/21/18 06:00 94/52 (66) Manual Cuff/Palpation Automatic Cuff 02/21/18 04:55 97.7 84 18 74/41 (52) 98 78/38 (51) 02/21/18 04:00 81 02/21/18 00:00 77 02/20/18 23:10 97.4 96 18 100/54 (69) 97 02/20/18 20:45 Nasal Cannula 4.00 21 02/20/18 20:00 89 02/20/18 20:00 97.0 87 18 98/59 (72) 96 02/20/18 19:41 Nasal Cannula 4.00 02/20/18 16:00 86 02/20/18 13:56 97 Nasal Cannula 4.00 02/20/18 12:00 80 02/20/18 12:00 97.3 86 14 93/52 (66) 99 (Laura Quesada) -: 02/21/18 0530 02/20/18 0630 Imaging Last 72 hours Impressions Catheter Placement X-Ray 02/19/18 0000 Signed Impressions: CONCLUSION: Uncomplicated ultrasound and fluoroscopic guided central venous dialysis cathet er placement as above. Tubes & Lines: Vas-Cath (Laura Quesada) Physical Exam General Appearance: No Acute Distress, Malnourished (Laura Quesada) Eyes Eye Exam: Pupils Equal, Pupils Reactive (Laura Quesada) Neck Neck Exam: Neck Supple (Laura Quesada) Pulmonary Resp Exam: Clear Bilaterally, Breath Sounds Equal (Laura Quesada) Cardiology CV Exam: Regular, Normal Sinus Rhythm (Laura Quesada) Gastrointestinal/Abdomen GI Exam: Soft, Non-Tender (Laura Quesada) Musculoskeletal MS Exam: Joints Intact, Atrophy, Unable to Ambulate (Laura Quesada) Integumentary Skin Exam: Warm, Dry Skin Remarks multiple wounds on feet, erythema, open blisters noted bilaterally (Laura Quesada) Extremeties Extremities Exam: No Edema, Pedal Pulses Palpable (Laura Quesada) Neurologic Neuro Exam: Alert, Awake, Oriented, Speech Clear, Moving All Extremities (Laura Quesada) Psychiatric Psych Exam: Appropriate Responses (Laura Quesada) Assessment/Plan Discussed Condition With: Patient Assessment Summary: BISHOP/Acute Renal Failure Electrolyte Assessment: Hyperkalemia, Metabolic Acidosis Problem List: (1) Acute kidney injury ICD Codes: N17.9 - Acute kidney failure, unspecified Plan: Most likely has suffered ATN from hypotension and hypoperfusion due to sepsis Also need to consider AIN due to Cefazolin or the other medications. He has become oliguric. HD initiated 02/19 and 02/20. Stat labs ordered, repeat again tomorrow HD TTS if needed Has Vascath in place, most likely will need Permcath at later date On midodrine TID, avoid hypotension Acidosis has improved. Overall Prognosis is poor. 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 Declined hospice suggestionl Avoid nephrotoxic agents. Monitor Urine output. Await possible renal recovery. Off IVF, tolerating PO (2) Hyperkalemia ICD Codes: E87.5 - Hyperkalemia Plan: Improved with dialysis, monitor. 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 Improved after dialysis. Monitor. (4) Anemia ICD Codes: D64.9 - Anemia, unspecified Status: Acute Plan: Given blood transfusion On epogen Follow CBC Consider IV Venofer however he has evidence of sepsis, PO may be better for now. . (5) DM (diabetes mellitus) ICD Codes: E11.9 - Type 2 diabetes mellitus without complications Status: Chronic Plan: Insulin coverage as needed, maintain blood sugar between 140 and 180. (6) Infected stasis ulcer ICD Codes: I83.209 - Varicose veins of unspecified lower extremity with both ulcer of unspecified site and inflammation Status: Acute Plan: Wound with klebsiella, sensitivity reviewed. Wound care has been consulted. (7) UTI (urinary tract infection) ICD Codes: N39.0 - Urinary tract infection, site not specified Status: Acute Plan: On Rocephin (Laura Quesada) Plan patient was seen and examined. Agree with above assessment and plan. 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 (Shaun Mcmahon MD) Problem Qualifiers (1) UTI (urinary tract infection): Qualified Codes: N30.00 - Acute cystitis without hematuria Laura Quesada Feb 21, 2018 10:08 Shaun Mcmahon MD Feb 21, 2018 17:21
[2018-02-21 10:21] LABS: ALBUMIN 1.7 GM/DL (3.4-5.0); BICARBONATE 27.2 MEQ/L (21.0-32.0); CALCIUM 7.7 MG/DL (8.5-10.1); CREATININE 3.68 MG/DL (0.60-1.30); PHOSPHORUS 2.1 MG/DL (2.5-4.9)
--- NOTE | 2018-02-21 10:38 | HHI.PR ---
Subjective Remarks Follow-up acute kidney injury/Anemia of chronic disease/multiple electrolyte abnormalities/ February 18, 2018-patient seen and examined, alert and oriented 2 stated today's date was January 18, 2018. Currently receiving 1 unit packed red blood cells. Case discussed with wound care nurse at bedside who was changing patient dressing bilateral feet ulcers. Currently afebrile. February 19, 2018-patient seen and examined, complaints of abdominal bloating and reports some shortness of breath as a result of late February 20, 2018-patient seen and examined, appears lethargic and patient is now willing to go to hospice. BP soft. Heading back for hemodialysis again today. February 21, 2018-patient seen and examined, patient appears more alert today and taking p.o. without any complication. Declined hospice yesterday. Objective Vitals Vital Signs Date Time Temp Pulse Resp B/P (MAP) Pulse Ox O2 Delivery O2 Flow Rate FiO2 02/21/18 08:00 83 02/21/18 08:00 97.3 81 16 86/50 (62) 96 02/21/18 07:17 Nasal Cannula 4.00 02/21/18 06:00 94/52 (66) Manual Cuff/Palpation Automatic Cuff 02/21/18 04:55 97.7 84 18 74/41 (52) 98 78/38 (51) 02/21/18 04:00 81 02/21/18 00:00 77 02/20/18 23:10 97.4 96 18 100/54 (69) 97 02/20/18 20:45 Nasal Cannula 4.00 21 02/20/18 20:00 89 02/20/18 20:00 97.0 87 18 98/59 (72) 96 02/20/18 19:41 Nasal Cannula 4.00 02/20/18 16:00 86 02/20/18 13:56 97 Nasal Cannula 4.00 02/20/18 12:00 80 02/20/18 12:00 97.3 86 14 93/52 (66) 99 I/O 02/20/18 02/20/18 02/20/18 02/21/18 02/21/18 02/21/18 07:00 15:00 23:00 07:00 15:00 23:00 Intake Total 720 ml 100 ml 0 ml Output Total 1000 ml 0 ml Balance 720 ml -900 ml 0 ml Intake Oral 720 ml 0 ml 0 ml IV Total 100 ml Output Urine Total 0 ml Hemodialysis 1000 ml # Voids 0 2 # Bowel Movements 1 1 0 Result Diagram: 02/21/18 0530 02/21/18 0945 Objective Remarks GENERAL: NAD SKIN: Warm and dry.B feet ulcers HEAD: Normocephalic. EYES: No scleral icterus. No injection or drainage. NECK: Supple, trachea midline. No JVD or lymphadenopathy. CARDIOVASCULAR: Regular rate and rhythm without murmurs, gallops, or rubs. RESPIRATORY: Breath sounds equal bilaterally. No accessory muscle use. GASTROINTESTINAL: Abdomen soft, non-tender, mildly distended. +BS MUSCULOSKELETAL: No cyanosis, or edema. BACK: Nontender without obvious deformity. No CVA tenderness. A/P Problem List: (1) Acute kidney injury ICD Code: N17.9 - Acute kidney failure, unspecified Status: Resolved (2) Hyponatremia ICD Code: E87.1 - Hypo-osmolality and hyponatremia (3) Hyperkalemia ICD Code: E87.5 - Hyperkalemia (4) Hyponatremia ICD Code: E87.1 - Hypo-osmolality and hyponatremia (5) Chronic foot ulcer ICD Code: L97.509 - Non-pressure chronic ulcer of other part of unspecified foot with unspecified severity Status: Chronic (6) Symptomatic anemia ICD Code: D64.9 - Anemia, unspecified Status: Acute Assessment and Plan 57-year-old man with 1. Acute kidney injury Creatinine 4.9, baseline 2.5 -history of acute renal failure requiring hemodialysis during last hospitalization Patient received first hemodialysis February 19, 2018, and then again February 20, 2018 with improvement of renal function Patient's conditions however is guarded with a poor prognosis, however he declined hospitalist yesterday 2. Hyponatremia-improving post HD Management per nephrology Continue with IV fluid with sodium bicarb and monitor electrolyte 3. Hyperkalemia-improving post HD Management per nephrology 4. Bilateral foot cellulitis Continue Ancef until 02/27/18 per infectious disease recommendations Wound culture positive for Klebsiella pneumonia-ESBL +, therefore will consult infectious disease specialist Appreciate input from wound care nurse 5. C. difficile Continue Flagyl until 02/27/18 6. Diabetes mellitus Sliding-scale insulin Monitor blood glucose 7. Schizophrenia/hypertension Continue home medication 8. Anemia of chronic disease s/p 1 unit packed red blood cell February 18, 2018, H&H back at his baseline Continue Epogen Hypotension Hold antihypertensive medication Caution with fluid removal Continue Zaid Cain MD Feb 21, 2018 10:38
--- NOTE | 2018-02-21 14:34 | PD.CONS ---
History of Present Illness Service Infectious disease Consult Requested By Dr. Metcalf Reason for Consult Evaluate patient with feet ulcers, culture Klebsiella ESBL positive Primary Care Physician Frandy House MD Diagnoses: History of Present Illness Patient seen and examined. Records reviewed. Patient is a 57-year-old male, came from the longterm, brought into the hospital for abnormal routine labs showing anemia, hyponatremia, and worsening renal function. Patient was hospitalized last month and at that time he had group A strep septicemia as well as bilateral foot ulcers with infection. During that hospitalization he also had acute kidney injury and it improved but not to normal limits. Patient was discharged on IV Ancef for his sepsis, with plans to complete treatment on February 27. According to the patient he had a wound VAC to his left foot wound, and on the day he was transferred to the hospital the wound VAC was removed. There was a wound care nurse following him in the longterm. Nephrology saw the patient on this admission, and his kidney function continued to deteriorate, and the patient was started on hemodialysis on February 19. He has a Vas-Cath in the right IJ. Patient's urine output has been low. During his last admission patient also was diagnosed to have C. difficile colitis. Currently he denies any diarrhea, and he has had formed stools in the last 2 days. He denies any abdominal pain. No nausea or vomiting. Wound care has seen the patient and has ordered wound dressing changes to both feet ulcers. A wound culture was obtained from the left foot ulcer, and it is now reported as growing Klebsiella ESBL positive. The Gram stain from the wound had rare WBC. Patient also had an abnormal urinalysis when he came in, and the urine culture is now reported as growing Kirstin glabrata. He is currently on IV Ancef and IV Rocephin as well as oral Flagyl. Infectious disease consultation has been requested to evaluate the patient. Review of Systems Constitutional: COMPLAINS OF: Fatigue, DENIES: Fever, Chills Eyes: DENIES: Eye pain Ears, nose, mouth, throat: DENIES: Nasal discharge, Oral lesions, Throat pain Respiratory: DENIES: Cough, Shortness of breath Cardiovascular: DENIES: Chest pain, Palpitations, Syncope Gastrointestinal: DENIES: Abdominal pain, Diarrhea, Nausea, Vomiting, Difficulty Swallowing Musculoskeletal: COMPLAINS OF: Joint Swelling Integumentary: DENIES: Pruritus, Rash Hematologic/lymphatic: DENIES: Bruising Neurologic: DENIES: Headache Psychiatric: DENIES: Hallucinations Past Family Social History Allergies: Coded Allergies: haloperidol (Verified Allergy, Severe, BLINDNESS, 01/14/18) vancomycin (Verified Allergy, Severe, 01/14/18) levofloxacin (Verified Allergy, Intermediate, Cramping, 01/14/18) fluphenazine (Verified Allergy, Unknown, "[employer]", 01/14/18) codeine (Verified Adverse Reaction, Mild, 01/14/18) "makes me feel funny" but feels ok taking Welcome's *MDRO Multi-Drug Resistant Organism (Verified Adverse Reaction, Unknown, VRE, 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 Past Medical History Bilateral foot cellulitis/abscess with group a strep septicemia (on cefazolin and Flagyl until 02/27/18 per infectious disease) Acute kidney injury requiring hemodialysis C. difficile colitis Hepatitis C Anemia Diabetes mellitus Schizophrenia Hypertension Past Surgical History Surgery to both feet Active Ordered Medications Current Medications Medications (Trade) Dose Ordered Sig/Portia Route Start Time Stop Time Status Last Admin (NS Flush) 2 ml UNSCH PRN IV FLUSH 02/17/18 19:45 (NS Flush) 2 ml BID IV FLUSH 02/17/18 21:00 02/21/18 08:57 (Tylenol) 650 mg Q4H PRN PO 02/17/18 19:45 (Reglan Inj) 5 mg Q6H PRN IV PUSH 02/17/18 19:45 (Narcan Inj) 0.4 mg UNSCH PRN IV PUSH 02/17/18 19:45 (Milk Of Magnesia Liq) 30 ml Q12H PRN PO 02/17/18 19:45 (Senokot) 17.2 mg Q12H PRN PO 02/17/18 19:45 (Dulcolax Supp) 10 mg DAILY PRN RECTAL 02/17/18 19:45 (Lactulose Liq) 30 ml DAILY PRN PO 02/17/18 19:45 Ceftriaxone Sodium 1000 mg/ Sodium Chloride 100 ml @ 200 mls/hr Q24H IV 02/18/18 20:00 02/20/18 21:30 (Norvasc) 10 mg DAILY PO 02/18/18 09:00 Future Hold 02/19/18 08:47 (Ferrous Sulfate) 325 mg DAILY PO 02/18/18 09:00 02/21/18 08:57 (Welcome 10-325 Mg) 1 tab BID PRN PO 02/17/18 20:00 02/20/18 21:32 (Vistaril) 50 mg BID PO 02/17/18 21:00 02/21/18 08:58 (Flagyl) 500 mg Q8HR PO 02/17/18 22:00 02/21/18 13:31 (Heparin Central Flush) 500 unit Q12HR IV FLUSH 02/17/18 21:00 02/21/18 08:57 (D50w (Vial) Inj) 50 ml UNSCH PRN IV PUSH 02/17/18 20:30 (Glucagon Inj) 1 mg UNSCH PRN OTHER 02/17/18 20:30 (NovoLOG SUPPLEMENTAL SCALE) 1 ACHS SLIDING SCALE SQ 02/17/18 21:00 02/21/18 13:33 Cefazolin Sodium 1000 mg/Sodium Chloride 100 ml @ 200 mls/hr Q12H IV 02/17/18 22:00 02/21/18 08:58 (Mellaril) 200 mg DAILY PO 02/18/18 09:00 02/21/18 08:58 Sodium Chloride 1,000 ml @ 0 mls/hr Q0M PRN OTHER 02/19/18 09:35 (Heparin Inj) 8,000 units UNSCH PRN IV FLUSH 02/19/18 09:45 Sodium Chloride 1,000 ml @ 200 mls/hr Q5H PRN IV 02/19/18 09:35 Sodium Chloride 1,000 ml @ 0 mls/hr Q0M PRN OTHER 02/19/18 09:35 (Mannitol Inj) 12.5 gm UNSCH PRN IV 02/19/18 09:45 Albumin Human 100 ml @ 60 mls/hr UNSCH PRN IV 02/19/18 09:45 02/20/18 14:38 (NS Flush) 5 ml UNSCH PRN IV FLUSH 02/19/18 09:45 (Heparin Inj) UNSCH PRN .XX 02/19/18 09:45 (Gentamicin Inj) 20 mg UNSCH PRN OTHER 02/19/18 09:45 (Zofran Odt) 4 mg UNSCH PRN PO 02/19/18 09:45 (Tylenol) 650 mg UNSCH PRN PO 02/19/18 09:45 (Benadryl) 25 mg UNSCH PRN PO 02/19/18 09:45 (Nitrostat Sl) 0.4 mg UNSCH PRN SL 02/19/18 09:45 (Catapres) 0.1 mg UNSCH PRN PO 02/19/18 09:45 (Epogen Inj) 10,000 units UNSCH PRN IV PUSH 02/19/18 09:45 02/19/18 15:30 (Gelfoam 12 Mm/7 Mm Top) 1 foam UNSCH PRN TOP 02/19/18 09:45 (NS Flush) UNSCH PRN IV FLUSH 02/19/18 13:15 (Heparin Inj) UNSCH PRN IV FLUSH 02/19/18 13:15 (Proamatine) 5 mg TID@07,12,17 PO 02/20/18 17:00 02/21/18 13:31 Family History Noncontributory to current ID problem Social History Came from the longterm Quit alcohol on 01/14/18. Reports drinking 2 beers daily prior to this. Denies tobacco and illicit drugs. Physical Exam Vital Signs Vital Signs Date Time Temp Pulse Resp B/P (MAP) Pulse Ox O2 Delivery O2 Flow Rate FiO2 02/21/18 13:35 96 Nasal Cannula 4.00 02/21/18 12:00 97.4 99 16 95/53 (67) 95 02/21/18 08:00 83 02/21/18 08:00 97.3 81 16 86/50 (62) 96 02/21/18 07:17 Nasal Cannula 4.00 02/21/18 06:00 94/52 (66) Manual Cuff/Palpation Automatic Cuff 02/21/18 04:55 97.7 84 18 74/41 (52) 98 78/38 (51) 02/21/18 04:00 81 02/21/18 00:00 77 02/20/18 23:10 97.4 96 18 100/54 (69) 97 02/20/18 20:45 Nasal Cannula 4.00 21 02/20/18 20:00 89 02/20/18 20:00 97.0 87 18 98/59 (72) 96 02/20/18 19:41 Nasal Cannula 4.00 02/20/18 16:00 86 Physical Exam GENERAL: Patient is a well-nourished, well-developed male, looks chronically ill appearing and looks older than stated age, awake and alert, not in respiratory distress. SKIN: Cool and dry. No generalized rash, no ecchymoses and no evidence of embolic lesions. HEAD: Atraumatic. Normocephalic. No temporal wasting, or tenderness. EYES: Pale conjunctiva. No petechia or hemorrhage. Pupils equal, round and reactive to light. Extraocular movements full and intact. No scleral icterus. No injection or drainage. EARS, NOSE AND THROAT: Nose without bleeding or purulent nasal discharge. No sinus tenderness. Mucous membranes pink and moist. No oral lesions noted. No exudate. No oral thrush. NECK: Trachea midline. Supple and not tender, no meningeal signs CARDIOVASCULAR: Regular rate and rhythm. No murmurs, rubs or gallops heard RESPIRATORY: Clear to auscultation. Breath sounds equal bilaterally. No rales , wheezing or rhonchi ABDOMEN: Soft, non-tender, nondistended. Bowel sounds present and normoactive. No guarding. No rebound. No organomegaly. Has reducible umbilical hernia EXTREMITIES: No clubbing, cyanosis. No calf tenderness. Well perfused and warm. Has ulcers both plantar aspect of feet, clean, with red tissue, no necrotic tissue, no purulence, no periwound erythema. NEUROLOGICAL: Awake and alert. Cranial nerves grossly intact. Motor grossly within normal limits. PSYCHIATRIC: Normal affect, calm and cooperative. LINE: No evidence of infection, he has a Dc on the right chest and right IJ Vas-Cath Laboratory Laboratory Tests Test 02/21/18 05:30 02/21/18 09:45 White Blood Count 7.6 Red Blood Count 2.48 Hemoglobin 7.3 Hematocrit 21.6 Mean Corpuscular Volume 87.0 Mean Corpuscular Hemoglobin 29.5 Mean Corpuscular Hemoglobin Concent 33.9 Red Cell Distribution Width 15.4 Platelet Count 280 Mean Platelet Volume 9.8 Neutrophils (%) (Auto) 69.9 Lymphocytes (%) (Auto) 16.7 Monocytes (%) (Auto) 9.8 Eosinophils (%) (Auto) 2.5 Basophils (%) (Auto) 1.1 Neutrophils # (Auto) 5.3 Lymphocytes # (Auto) 1.3 Monocytes # (Auto) 0.7 Eosinophils # (Auto) 0.2 Basophils # (Auto) 0.1 CBC Comment AUTO DIFF Differential Total Cells Counted 100 Neutrophils % (Manual) 76 Band Neutrophils % 3 Lymphocytes % 10 Monocytes % 2 Eosinophils % 4 Basophils % 2 Neutrophils # (Manual) 6.2 Metamyelocytes 2 Myelocytes 1 Nucleated Red Blood Cells 7 Differential Comment FINAL DIFF MANUAL Platelet Estimate NORMAL Platelet Morphology Comment NORMAL Target Cells 1+ Iron Level 63 Total Iron Binding Capacity 64 Percent Iron Saturation 97.8 Blood Urea Nitrogen 28 Creatinine 3.68 Random Glucose 119 Albumin 1.7 Calcium Level 7.7 Phosphorus Level 2.1 Sodium Level 134 Potassium Level 3.8 Chloride Level 98 Carbon Dioxide Level 27.2 Anion Gap 9 Estimat Glomerular Filtration Rate 17 Date/Time Source Procedure Growth Status 02/17/18 17:32 Urine Catheterized Urine Urine Culture - Final Kirstin Glabrata Complete 02/18/18 11:00 Wound Foot Gram Stain - Final Complete 02/18/18 11:00 Wound Culture - Final Klebsiella Pneumoniae Esbl Pos Complete Result Diagram: 02/21/18 0530 02/21/18 0945 Imaging RADIOLOGY STUDIES/FILMS REVIEWED Catheter Placement X-Ray 02/19/18 0000 Signed Impressions: CONCLUSION: Uncomplicated ultrasound and fluoroscopic guided central venous dialysis cathet er placement as above. Renal Ultrasound 02/18/18 0000 Signed Impressions: CONCLUSION: 1. Suspected increased echotexture of the renal parenchyma likely representing medical renal disease. No hydronephrosis is present. 2. There is trace free fluid around the liver. Chest X-Ray 02/17/18 0000 Signed Impressions: CONCLUSION: 1. Cardiomegaly with plain film findings suggesting some degree of vascular co ngestion or volume overload. 2. Left basilar consolidation/effusion. Abdomen/Pelvis CT 02/17/18 0000 Signed Impressions: CONCLUSION: 1. Moderate bilateral pleural effusions and compressive atelectasis which is a new finding since January 14. 2. Small amount free fluid with anasarca. 3. Pericholecystic fluid without definite gallstones. 4. 5 cm fat-containing periumbilical hernia, stable. 5. No bowel obstruction or free air. Assessment and Plan Assessment and Plan IMPRESSION Group A Strep sepsis from foot infection, better - to finish Rx February 27 (+) wound C/S with Kleb ESBL+ - colonization, wound looks clean and no evidence of infection Renal failure, on HD Hx C diff colitis RECOMMENDATION Complete Rx with Ancef till February 27 Continue Flagyl while on Abx Stop Rocephin Continue wound care No Rx needed for the (+) wound C/S Thank you for this consultation Please call if with any new ID issue or question Valencia Steele MD Feb 21, 2018 14:34
[2018-02-21] MEDS: FLUCONAZOLE 200 MG TAB PO SCH (15:00)
[2018-02-21] MEDS: ACETAMINOPHEN/HYDROcodone 325 MG/10 MG TAB PO PRN (20:32)
[2018-02-22] VITALS (9 sets, daily range): BP systolic 78–92; BP diastolic 46–55; PULSE 69–89; RESP 18–20; TEMP 94.6–97.5; O2SAT 95–100
[2018-02-22] MEDS: metroNIDAZOLE 500 MG TAB PO SCH ×3 (05:44→21:15)
[2018-02-22] MEDS: MIDODRINE 5 MG TAB PO SCH ×3 (05:44→18:06)
[2018-02-22 06:23] LABS: ALBUMIN 1.6 GM/DL (3.4-5.0); BICARBONATE 26.1 MEQ/L (21.0-32.0); CALCIUM 7.9 MG/DL (8.5-10.1); CREATININE 4.07 MG/DL (0.60-1.30)
[2018-02-22 06:24] LABS: PHOSPHORUS 2.5 MG/DL (2.5-4.9)
[2018-02-22] MEDS: INSULIN ASPART SUPPLEMENTAL SCALE SQ SCH ×4 (08:00→21:00)
[2018-02-22] MEDS: FLUCONAZOLE 200 MG TAB PO SCH (08:35)
[2018-02-22] MEDS: FERROUS SULFATE 325 MG (65 MG ELEMENTAL IRON) TAB PO SCH (08:35)
[2018-02-22] MEDS: THIORIDAZINE HCL 50 MG TAB PO SCH (08:36)
[2018-02-22] MEDS: SODIUM CHLORIDE 0.9% FLUSH 10 ML FLUSH IV FLUSH SCH ×2 (08:37→21:00)
[2018-02-22] MEDS: ceFAZolin 1,000 MG/NS 100 ML IV SCH ×4 (08:43→21:15)
--- NOTE | 2018-02-22 10:03 | HHI.NPPN ---
Subjective Renal Failure: Acute Review of Systems General Constitutional: Fatigue Gastrointestinal Gastrointestinal: Nausea & Vomiting Objective Data Data Vital Signs Date Time Temp Pulse Resp B/P (MAP) Pulse Ox O2 Delivery O2 Flow Rate FiO2 02/22/18 09:56 95 Nasal Cannula 4.00 02/22/18 08:00 97.5 89 20 85/48 (60) 95 02/22/18 04:00 85 02/22/18 04:00 96.3 84 18 82/51 (61) 97 02/22/18 00:00 84 02/22/18 00:00 96.8 86 18 92/55 (67) 100 02/21/18 20:30 Nasal Cannula 4.00 21 02/21/18 20:00 93 02/21/18 20:00 97.2 92 18 94/54 (67) 98 02/21/18 17:44 96 Nasal Cannula 4.00 02/21/18 16:00 88 02/21/18 16:00 97.4 97 16 89/51 (64) 96 02/21/18 13:35 96 Nasal Cannula 4.00 02/21/18 12:00 102 02/21/18 12:00 97.4 99 16 95/53 (67) 95 -: 02/21/18 0530 02/22/18 0530 Tubes & Lines: Vas-Cath Physical Exam General Appearance: No Acute Distress, Malnourished Eyes Eye Exam: Pupils Equal, Pupils Reactive Neck Neck Exam: Neck Supple Pulmonary Resp Exam: Clear Bilaterally, Breath Sounds Equal Cardiology CV Exam: Regular, Normal Sinus Rhythm Gastrointestinal/Abdomen GI Exam: Soft, Non-Tender Musculoskeletal MS Exam: Joints Intact, Atrophy, Unable to Ambulate Integumentary Skin Exam: Warm, Dry Extremeties Extremities Exam: No Edema, Pedal Pulses Palpable Neurologic Neuro Exam: Alert, Awake, Oriented, Speech Clear, Moving All Extremities Psychiatric Psych Exam: Appropriate Responses Assessment/Plan Discussed Condition With: Patient Assessment Summary: BISHOP/Acute Renal Failure Electrolyte Assessment: Hyperkalemia, Metabolic Acidosis Problem List: (1) Acute kidney injury ICD Codes: N17.9 - Acute kidney failure, unspecified Plan: Most likely has suffered ATN from hypotension and hypoperfusion due to sepsis Also need to consider AIN due to Cefazolin or the other medications. He has become oliguric. HD initiated 02/19 and 02/20. Stat labs ordered, repeat again tomorrow HD TTS if needed Has Vascath in place, most likely will need Permcath at later date On midodrine TID, avoid hypotension Acidosis has improved. Overall Prognosis is poor. It is unclear if he will need mcc dialysis. Declined hospice suggestion Blood pressure remains low he has bilateral leg wounds and poor perfusion Seen during hemodialysis ultrafiltration of 2 L as tolerated (2) Hyperkalemia ICD Codes: E87.5 - Hyperkalemia Plan: Improved with dialysis, monitor. 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 Improved after dialysis. Monitor. (4) Anemia ICD Codes: D64.9 - Anemia, unspecified Status: Acute Plan: Given blood transfusion On epogen Follow CBC Consider IV Venofer however he has evidence of sepsis, PO may be better for now. . (5) DM (diabetes mellitus) ICD Codes: E11.9 - Type 2 diabetes mellitus without complications Status: Chronic Plan: Insulin coverage as needed, maintain blood sugar between 140 and 180. (6) Infected stasis ulcer ICD Codes: I83.209 - Varicose veins of unspecified lower extremity with both ulcer of unspecified site and inflammation Status: Acute Plan: Wound with klebsiella, sensitivity reviewed. Wound care has been consulted. (7) UTI (urinary tract infection) ICD Codes: N39.0 - Urinary tract infection, site not specified Status: Acute Plan: On Rocephin Problem Qualifiers (1) UTI (urinary tract infection): Qualified Codes: N30.00 - Acute cystitis without hematuria Harry Vazquez MD Feb 22, 2018 10:03
--- NOTE | 2018-02-22 10:26 | HHI.PR ---
Subjective Remarks Follow-up acute kidney injury/Anemia of chronic disease/multiple electrolyte abnormalities/ February 18, 2018-patient seen and examined, alert and oriented 2 stated today's date was January 18, 2018. Currently receiving 1 unit packed red blood cells. Case discussed with wound care nurse at bedside who was changing patient dressing bilateral feet ulcers. Currently afebrile. February 19, 2018-patient seen and examined, complaints of abdominal bloating and reports some shortness of breath as a result of late February 20, 2018-patient seen and examined, appears lethargic and patient is now willing to go to hospice. BP soft. Heading back for hemodialysis again today. February 21, 2018-patient seen and examined, patient appears more alert today and taking p.o. without any complication. Declined hospice yesterday. February 22, 2018-patient seen and examined, BP soft, afebrile, tolerating p.o. without any complication of nausea and vomiting Objective Vitals Vital Signs Date Time Temp Pulse Resp B/P (MAP) Pulse Ox O2 Delivery O2 Flow Rate FiO2 02/22/18 09:56 95 Nasal Cannula 4.00 02/22/18 08:00 97.5 89 20 85/48 (60) 95 02/22/18 08:00 Nasal Cannula 4.00 02/22/18 04:00 85 02/22/18 04:00 96.3 84 18 82/51 (61) 97 02/22/18 00:00 84 02/22/18 00:00 96.8 86 18 92/55 (67) 100 02/21/18 20:30 Nasal Cannula 4.00 21 02/21/18 20:00 93 02/21/18 20:00 97.2 92 18 94/54 (67) 98 02/21/18 17:44 96 Nasal Cannula 4.00 02/21/18 16:00 88 02/21/18 16:00 97.4 97 16 89/51 (64) 96 02/21/18 13:35 96 Nasal Cannula 4.00 02/21/18 12:00 102 02/21/18 12:00 97.4 99 16 95/53 (67) 95 I/O 02/21/18 02/21/18 02/21/18 02/22/18 02/22/18 02/22/18 07:00 15:00 23:00 07:00 15:00 23:00 Intake Total 0 ml 100 ml 480 ml 240 ml Output Total 0 ml 0 ml Balance 0 ml 100 ml 480 ml 240 ml Intake Oral 0 ml 480 ml 240 ml IV Total 100 ml Output Urine Total 0 ml 0 ml Stool Total 0 ml # Voids 0 # Bowel Movements 0 0 Result Diagram: 02/21/18 0530 02/22/18 0530 Imaging Last Impressions Catheter Placement X-Ray 02/19/18 Signed Impressions: CONCLUSION: Uncomplicated ultrasound and fluoroscopic guided central venous dialysis cathet er placement as above. Renal Ultrasound 02/18/18 Signed Impressions: CONCLUSION: 1. Suspected increased echotexture of the renal parenchyma likely representing medical renal disease. No hydronephrosis is present. 2. There is trace free fluid around the liver. Chest X-Ray 02/17/18 Signed Impressions: CONCLUSION: 1. Cardiomegaly with plain film findings suggesting some degree of vascular co ngestion or volume overload. 2. Left basilar consolidation/effusion. Abdomen/Pelvis CT 02/17/18 Signed Impressions: CONCLUSION: 1. Moderate bilateral pleural effusions and compressive atelectasis which is a new finding since January 14. 2. Small amount free fluid with anasarca. 3. Pericholecystic fluid without definite gallstones. 4. 5 cm fat-containing periumbilical hernia, stable. 5. No bowel obstruction or free air. Objective Remarks GENERAL: NAD SKIN: Warm and dry.B feet ulcers HEAD: Normocephalic. EYES: No scleral icterus. No injection or drainage. NECK: Supple, trachea midline. No JVD or lymphadenopathy. CARDIOVASCULAR: Regular rate and rhythm without murmurs, gallops, or rubs. RESPIRATORY: Breath sounds equal bilaterally. No accessory muscle use. GASTROINTESTINAL: Abdomen soft, non-tender, mildly distended. +BS MUSCULOSKELETAL: No cyanosis, or edema. BACK: Nontender without obvious deformity. No CVA tenderness. A/P Problem List: (1) Acute kidney injury ICD Code: N17.9 - Acute kidney failure, unspecified Status: Resolved (2) Hyponatremia ICD Code: E87.1 - Hypo-osmolality and hyponatremia (3) Hyperkalemia ICD Code: E87.5 - Hyperkalemia (4) Hyponatremia ICD Code: E87.1 - Hypo-osmolality and hyponatremia (5) Chronic foot ulcer ICD Code: L97.509 - Non-pressure chronic ulcer of other part of unspecified foot with unspecified severity Status: Chronic (6) Symptomatic anemia ICD Code: D64.9 - Anemia, unspecified Status: Acute Assessment and Plan 57-year-old man with 1. Acute kidney injury Creatinine 4.9, baseline 2.5 -history of acute renal failure requiring hemodialysis during last hospitalization Patient received first hemodialysis February 19, 2018, and then again February 20, 2018 with improvement of renal function Patient's conditions however is guarded with a poor prognosis, however he declined hospitalist yesterday 2. Hyponatremia-improving post HD Management per nephrology 3. Hyperkalemia-improved post HD Management per nephrology 4. Bilateral foot cellulitis Group a strep sepsis Continue Ancef until 02/27/18 per infectious disease recommendations Wound culture positive for Klebsiella pneumonia-ESBL +, likely colonization per ID Appreciate input from wound care nurse 5. C. difficile Continue Flagyl until 02/27/18 6. Diabetes mellitus Sliding-scale insulin Monitor blood glucose 7. Schizophrenia/hypertension Continue home medication 8. Anemia of chronic disease s/p 1 unit packed red blood cell February 18, 2018, H&H back at his baseline Continue Epogen Hypotension Hold antihypertensive medication Caution with fluid removal Continue Zaid Cain MD Feb 22, 2018 10:26
[2018-02-22] MEDS: EPOETIN ALFA 10,000 UNITS/ML VIAL IV PUSH PRN (12:40)
[2018-02-22] MEDS: GENTAMICIN SULFATE 20 MG/2 ML VIAL OTHER PRN (12:40)
[2018-02-23] VITALS (16 sets, daily range): BP systolic 75–96; BP diastolic 40–50; PULSE 77–101; RESP 10–39; TEMP 96.5–98.8; O2SAT 89–99
[2018-02-23] MEDS ORDERED: DEXT 5%-NACL 0.45% 500 ML INJ 500 ML IV ONE ×2 (00:30→02:30)
[2018-02-23] MEDS ORDERED: ALBUMIN 25% INJ 50 ML IV ONE (02:15)
[2018-02-23] MEDS ORDERED: CHLORHEXIDINE GLUCONATE 2 % 1 PACK (2 CLOTHS)(extra cloths) TOPICAL PRN (03:00)
[2018-02-23 03:01] LABS: AUTOMATED NEUTROPHIL # 4.9 TH/MM3 (1.8-7.7); BASOPHIL # 0.1 TH/MM3 (0-0.2); EOSINOPHIL # 0.2 TH/MM3 (0-0.4); EOSINOPHIL % 2.6 % (0.0-4.0); HEMATOCRIT 22.2 % (39.0-51.0); HEMOGLOBIN 7.3 GM/DL (13.0-17.0); LYMPH % 21.7 % (9.0-44.0); LYMPHOCYTE # 1.7 TH/MM3 (1.0-4.8); MEAN CELL VOLUME 88.4 FL (80.0-100.0); MEAN CORPUSCULAR HEMOGLOBIN 29.2 PG (27.0-34.0); MEAN PLATELET VOLUME 10.1 FL (7.0-11.0); MONOCYTE # 0.8 TH/MM3 (0-0.9); NEUT % 63.7 % (16.0-70.0); PLATELET COUNT 270 TH/MM3 (150-450); RED BLOOD COUNT 2.51 MIL/MM3 (4.50-5.90); RED CELL DISTRIBUTION WIDTH 15.4 % (11.6-17.2); WHITE BLOOD COUNT 7.7 TH/MM3 (4.0-11.0)
[2018-02-23 03:26] LABS: BICARBONATE 28.8 MEQ/L (21.0-32.0); CALCIUM 7.3 MG/DL (8.5-10.1); CREATININE 2.98 MG/DL (0.60-1.30)
[2018-02-23 03:39] LABS: TOTAL PROTEIN 7.7 GM/DL (6.4-8.2)
[2018-02-23 03:41] LABS: CALCIUM-PROTEIN CORRECTED 7.1 MG/DL (8.5-10.1)
[2018-02-23 03:44] LABS: BANDS 8 % (0-6); BASOPHILS 1 % (0-2); CORRECTED NUCLEATED RBC 44 /100 WBC (0-0); LYMPHOCYTES 17 % (9-44); METAMYELOCYTES 1 % (0-1); MONOCYTES 2 % (0-8); NEUTROPHIL # MANUAL DIFF 6.2 TH/MM3 (1.8-7.7); NUCLEATED RED BLOOD CELL 44 (0-0); POLYS (SEG NEUTROPHILS) 71 % (16-70)
[2018-02-23] MEDS: CHLORHEXIDINE GLUCONATE 2 % 1 PACK (2 CLOTHS)(taper/protocol) TOPICAL SCH (04:00)
[2018-02-23] MEDS ORDERED: CALCIUM GLUCONATE INJ 1 GM in DEXTROSE 5% IN WATER 100ML INJ 100 ML IV ONE ×2 (04:30)
--- NOTE | 2018-02-23 05:12 | PD.CONS ---
[facility] Service Critical Care Medicine Consult Requested By Primary Care Physician Frandy House MD History of Present Illness 57-year-old male with a past medical history significant for bilateral foot cellulitis/abscess with group a strep septicemia (on cefazolin and Flagyl until 02/27/18 per infectious disease), acute kidney injury requiring hemodialysis, C. difficile, hepatitis C, anemia, diabetes mellitus, schizophrenia and hypertension has been admitted for the evaluation of abnormal labs. The patient currently resides in a longterm and had routine labs done showing anemia, worsening renal function and hyponatremia. The patient complains only of being very tired. He denies any dizziness or loss of consciousness. He was admitted to [facility] floor where he developed profound hypotension refractory to IV fluid bolus. He is admitted to ICU for aggressive IV fluid resuscitation and vasopressors treatment. A wound culture was obtained from the left foot ulcer is now reported as growing Klebsiella ESBL positive. Patient also had an abnormal urinalysis when he came in, and the urine culture is now reported as growing Kirstin glabrata. Review of Systems Constitutional: COMPLAINS OF: Diaphoretic episodes, Fatigue, Dizziness, DENIES : Fever, Weight gain, Weight loss, Chills, Change in appetite, Night Sweats Endocrine: DENIES: Heat/cold intolerance, Polydipsia, Polyuria, Polyphagia Eyes: DENIES: Blurred vision, Diplopia, Eye inflammation, Eye pain, Vision loss , Photosensitivity, Double Vision Ears, nose, mouth, throat: DENIES: Tinnitus, Hearing loss, Vertigo, Nasal discharge, Oral lesions, Throat pain, Hoarseness, Ear Pain, Running Nose, Epistaxis, Sinus Pain, Toothache, Odynophagia Respiratory: DENIES: Apneas, Cough, Snoring, Wheezing, Hemoptysis, Sputum production, Shortness of breath Cardiovascular: DENIES: Chest pain, Palpitations, Syncope, Dyspnea on Exertion , PND, Lower Extremity Edema, Orthopnea, Claudication Gastrointestinal: DENIES: Abdominal pain, Black stools, Bloody stools, Constipation, Diarrhea, Nausea, Vomiting, Difficulty Swallowing, Anorexia Genitourinary: DENIES: Sexual dysfunction, Urinary frequency, Urinary incontinence, Urgency, Hematuria, Dysuria, Nocturia, Penile Discharge, Testicular Pain, Testicular Swelling Musculoskeletal: DENIES: Joint pain, Muscle aches, Stiffness, Joint Swelling, Back pain, Neck pain Integumentary: DENIES: Abnormal pigmentation, Nail changes, Pruritus, Rash Hematologic/lymphatic: DENIES: Bruising, Lymphadenopathy Immunologic/allergic: DENIES: Eczema, Urticaria Neurologic: COMPLAINS OF: Abnormal gait, Poor Balance, DENIES: Headache, Localized weakness, Paresthesias, Seizures, Speech Problems, Tremor Psychiatric: DENIES: Anxiety, Confusion, Mood changes, Depression, Hallucinations, Agitation, Suicidal Ideation, Homicidal Ideation, Delusions Past Family Social History Allergies: Coded Allergies: haloperidol (Verified Allergy, Severe, BLINDNESS, 01/14/18) vancomycin (Verified Allergy, Severe, 01/14/18) levofloxacin (Verified Allergy, Intermediate, Cramping, 01/14/18) fluphenazine (Verified Allergy, Unknown, "[employer]", 01/14/18) codeine (Verified Adverse Reaction, Mild, 01/14/18) "makes me feel funny" but feels ok taking [place]'s *MDRO Multi-Drug Resistant Organism (Verified Adverse Reaction, Unknown, VRE, 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 difficile Hepatitis C Anemia Diabetes mellitus Schizophrenia Hypertension Past Surgical History Incision and drainage both feet Reported Medications Reported Meds & Active Scripts Active Epinephrine Inj 1 Mg/Ml (1 Ml) Inj 0.3 Mg SQ ONCE PRN Give with any signs of respiratory distress. Cefazolin Inj (Cefazolin Sodium/Dextrose) 1 Gm/50 Ml Bagp 1 Gm IV Q12HR 23 Days Flagyl (Metronidazole) 500 Mg Tab 500 Mg PO Q8HR Hydrocodone-Acetaminophen 10-325 mg Tab 1 Tab PO BID PRN Vistaril (Hydroxyzine Pamoate) 50 Mg Cap 50 Mg PO BID Norvasc (Amlodipine Besylate) 10 Mg Tab 10 Mg PO DAILY Reported Novolin R Inj (Insulin Human Regular) 1,000 Unit/10 Ml Vial 2-10 Units SQ ACHS Sliding Scale: 150-199=2 units, 200-249=4 units, 250-299=6 units, 300-349=8 units, 350+=10 units Normal Saline Flush (Sodium Chloride Flush) 0.9 % Inj 10 Ml IV FLUSH Q12HR Heparin Lock Flush 100 Unit/ml (Heparin Sodium,Porcine/Pf) 100 Unit/Ml (1 Ml) Vial 5 Ml IV FLUSH Q12HR Flush with NS 10ml followed by Heparin 5ml after each use Ferrous Sulfate 325 Mg (65 Mg Iron) Tablet 325 Mg PO DAILY Thioridazine (Thioridazine HCl) 100 Mg Tab 200 Mg PO DAILY Active Ordered Medications Current Medications Medications (Trade) Dose Ordered Sig/Portia Route PRN Reason Start Time Stop Time Status Last Admin Dose Admin Sodium Chloride (NS Flush) 2 ml UNSCH PRN IV FLUSH FLUSH AFTER USING IV ACCESS 02/17/18 19:45 Sodium Chloride (NS Flush) 2 ml BID IV FLUSH 02/17/18 21:00 02/22/18 21:00 Acetaminophen (Tylenol) 650 mg Q4H PRN PO TEMP > 100.4 02/17/18 19:45 Metoclopramide HCl (Reglan Inj) 5 mg Q6H PRN IV PUSH NAUSEA OR VOMITING 02/17/18 19:45 Naloxone HCl (Narcan Inj) 0.4 mg UNSCH PRN IV PUSH SEE LABEL COMMENTS 02/17/18 19:45 Magnesium Hydroxide (Milk Of Magnesia Liq) 30 ml Q12H PRN PO Mild constipation 02/17/18 19:45 Sennosides (Senokot) 17.2 mg Q12H PRN PO Moderate constipation 02/17/18 19:45 Bisacodyl (Dulcolax Supp) 10 mg DAILY PRN RECTAL SEVERE CONSITIPATION 02/17/18 19:45 Lactulose (Lactulose Liq) 30 ml DAILY PRN PO SEVERE CONSITIPATION 02/17/18 19:45 Amlodipine Besylate (Norvasc) 10 mg DAILY PO 02/18/18 09:00 Future Hold 02/19/18 08:47 Ferrous Sulfate (Ferrous Sulfate) 325 mg DAILY PO 02/18/18 09:00 02/22/18 08:35 Acetaminophen/ Hydrocodone Bitart ([place] 10-325 Mg) 1 tab BID PRN PO PAIN SCALE 1 TO 10 02/17/18 20:00 02/21/18 20:32 Hydroxyzine Pamoate (Vistaril) 50 mg BID PO 02/17/18 21:00 02/22/18 21:03 Metronidazole (Flagyl) 500 mg Q8HR PO 02/17/18 22:00 02/23/18 05:25 Heparin Sodium (Porcine) (Heparin Central Flush) 500 unit Q12HR IV FLUSH 02/17/18 21:00 02/22/18 21:00 Dextrose (D50w (Vial) Inj) 50 ml UNSCH PRN IV PUSH HYPOGLYCEMIA-SEE COMMENTS 02/17/18 20:30 Glucagon (Glucagon Inj) 1 mg UNSCH PRN OTHER HYPOGLYCEMIA-SEE COMMENTS 02/17/18 20:30 Insulin Aspart (NovoLOG SUPPLEMENTAL SCALE) 1 ACHS SLIDING SCALE SQ 02/17/18 21:00 02/21/18 20:32 Cefazolin Sodium 1000 mg/Sodium Chloride 100 ml @ 200 mls/hr Q12H IV 02/17/18 22:00 02/27/18 23:00 02/22/18 21:15 Thioridazine HCl (Mellaril) 200 mg DAILY PO 02/18/18 09:00 02/22/18 08:36 Sodium Chloride 1,000 ml @ 0 mls/hr Q0M PRN OTHER For Prime & Rinse Back 02/19/18 09:35 Heparin Sodium (Porcine) (Heparin Inj) 8,000 units UNSCH PRN IV FLUSH WITH DIALYSIS 02/19/18 09:45 02/22/18 12:40 Sodium Chloride 1,000 ml @ 200 mls/hr Q5H PRN IV WITH DIALYSIS 02/19/18 09:35 Sodium Chloride 1,000 ml @ 0 mls/hr Q0M PRN OTHER WITH DIALYSIS 02/19/18 09:35 Mannitol (Mannitol Inj) 12.5 gm UNSCH PRN IV WITH DIALYSIS 02/19/18 09:45 Albumin Human 100 ml @ 60 mls/hr UNSCH PRN IV WITH DIALYSIS 02/19/18 09:45 02/20/18 14:38 Sodium Chloride (NS Flush) 5 ml UNSCH PRN IV FLUSH WITH DIALYSIS 02/19/18 09:45 Heparin Sodium (Porcine) (Heparin Inj) UNSCH PRN .XX WITH DIALYSIS 02/19/18 09:45 Gentamicin Sulfate (Gentamicin Inj) 20 mg UNSCH PRN OTHER WITH DIALYSIS 02/19/18 09:45 02/22/18 12:40 Ondansetron HCl (Zofran Odt) 4 mg UNSCH PRN PO WITH DIALYSIS 02/19/18 09:45 Acetaminophen (Tylenol) 650 mg UNSCH PRN PO for headach, pain, temp > 101F 02/19/18 09:45 Diphenhydramine HCl (Benadryl) 25 mg UNSCH PRN PO for hives/itching/anaphylaxis 02/19/18 09:45 Nitroglycerin (Nitrostat Sl) 0.4 mg UNSCH PRN SL CHEST PAIN 02/19/18 09:45 Clonidine (Catapres) 0.1 mg UNSCH PRN PO for BP > 180/100 X 2 readings 02/19/18 09:45 Epoetin Sloan (Epogen Inj) 10,000 units UNSCH PRN IV PUSH WITH DIALYSIS 02/19/18 09:45 02/22/18 12:40 Gelatin (Gelfoam 12 Mm/7 Mm Top) 1 foam UNSCH PRN TOP SEE LABEL COMMENTS 02/19/18 09:45 Sodium Chloride (NS Flush) UNSCH PRN IV FLUSH SEE PROTOCOL 02/19/18 13:15 Heparin Sodium (Porcine) (Heparin Inj) UNSCH PRN IV FLUSH SEE PROTOCOL 02/19/18 13:15 Midodrine (Proamatine) 5 mg TID@07,12,17 PO 02/20/18 17:00 02/23/18 05:25 Fluconazole (Diflucan) 200 mg DAILY PO 02/21/18 14:30 02/28/18 14:29 02/22/18 08:35 Miscellaneous Information ([facility] Nursing Information) Patient in critical care unit? Ass... [id number] .XX 02/23/18 03:00 Chlorhexidine Gluconate (Chlorhexidine 2% Cloth) 3 pack DAILY@04 TOPICAL 02/23/18 04:00 02/27/18 04:01 02/23/18 04:00 Chlorhexidine Gluconate (Chlorhexidine 2% Cloth) 3 pack UNSCH PRN TOPICAL HYGIENIC CARE 02/23/18 03:00 02/28/18 02:47 Sodium Chloride 1,000 ml @ 999 mls/hr BOLUS ONCE IV 02/23/18 05:15 02/23/18 06:15 02/23/18 05:15 Sodium Chloride 1,000 ml @ 999 mls/hr BOLUS ONCE IV 02/23/18 05:15 02/23/18 06:15 Sodium Chloride 1,000 ml @ 999 mls/hr BOLUS ONCE IV 02/23/18 05:15 02/23/18 06:15 Norepinephrine Bitartrate 250 ml @ 7.5 mls/hr TITRATE PRN IV Blood pressure management 02/23/18 05:15 Terbutaline Sulfate (Brethine Inj) 1 mg UNSCH PRN SQ For Extravasation 02/23/18 05:15 Family History Negative for CAD/DM Social History Quit alcohol on 01/14/18. Reports drinking 2 beers daily prior to this. Denies tobacco and illicit drugs. Physical Exam Vital Signs Vital Signs Date Time Temp Pulse Resp B/P (MAP) Pulse Ox O2 Delivery O2 Flow Rate FiO2 02/23/18 03:00 78 02/23/18 02:33 97.3 101 20 78/40 (53) 92 02/23/18 02:10 97.4 98 20 75/42 (53) 98 02/23/18 02:10 98 Nasal Cannula 4.00 02/23/18 02:10 98 4.00 02/23/18 00:48 97.7 02/23/18 00:00 96.5 81 18 86/44 (58) 98 02/22/18 21:00 Nasal Cannula 4.00 02/22/18 20:15 90/46 (61) 02/22/18 20:00 94.6 82 18 78/46 (57) 97 02/22/18 17:34 98 Nasal Cannula 4.00 02/22/18 16:00 97.3 88 20 84/47 (59) 98 02/22/18 16:00 82 02/22/18 12:00 79 02/22/18 09:56 95 Nasal Cannula 4.00 02/22/18 08:00 84 02/22/18 08:00 97.5 89 20 85/48 (60) 95 02/22/18 08:00 Nasal Cannula 4.00 Physical Exam GENERAL: Well-nourished, well-developed patient. SKIN: Warm and dry. HEAD: Normocephalic. EYES: No scleral icterus. No injection or drainage. NECK: Supple, trachea midline. No JVD or lymphadenopathy. CARDIOVASCULAR: Regular rate and rhythm without murmurs, gallops, or rubs. RESPIRATORY: Breath sounds equal bilaterally. No accessory muscle use. GASTROINTESTINAL: Abdomen soft, non-tender, nondistended. MUSCULOSKELETAL: No cyanosis, or edema. Has ulcers both plantar aspect of feet, clean, with red tissue, no necrotic tissue, no purulence, no periwound erythema. BACK: Nontender without obvious deformity. NEURO EXAM: GCS: 15 Mental Status: The patient is alert and oriented to person, place, and time with normal speech. Cranial Nerves: Visual acuity intact bilaterally. Visual coulter normal in all quadrants. Pupils are round, reactive to light. Extraocular movements are intact without ptosis. Hearing is normal bilaterally. Voice is normal. Tongue protrudes midline and moves symmetrically. Laboratory Laboratory Tests Test 02/22/18 05:30 02/23/18 02:30 02/23/18 02:50 Blood Urea Nitrogen 29 17 Creatinine 4.07 2.98 Random Glucose 110 145 Albumin 1.6 Calcium Level 7.9 7.3 Phosphorus Level 2.5 Sodium Level 131 135 Potassium Level 4.0 3.7 Chloride Level 95 98 Carbon Dioxide Level 26.1 28.8 Anion Gap 10 8 Estimat Glomerular Filtration Rate 15 22 Nasal Screen MRSA (PCR) MRSA NOT DETECTED White Blood Count 7.7 Red Blood Count 2.51 Hemoglobin 7.3 Hematocrit 22.2 Mean Corpuscular Volume 88.4 Mean Corpuscular Hemoglobin 29.2 Mean Corpuscular Hemoglobin Concent 33.0 Red Cell Distribution Width 15.4 Platelet Count 270 Mean Platelet Volume 10.1 Neutrophils (%) (Auto) 63.7 Lymphocytes (%) (Auto) 21.7 Monocytes (%) (Auto) 11.0 Eosinophils (%) (Auto) 2.6 Basophils (%) (Auto) 1.0 Neutrophils # (Auto) 4.9 Lymphocytes # (Auto) 1.7 Monocytes # (Auto) 0.8 Eosinophils # (Auto) 0.2 Basophils # (Auto) 0.1 CBC Comment AUTO DIFF Differential Total Cells Counted 100 Neutrophils % (Manual) 71 Band Neutrophils % 8 Lymphocytes % 17 Monocytes % 2 Basophils % 1 Neutrophils # (Manual) 6.2 Metamyelocytes 1 Nucleated Red Blood Cells 44 Differential Comment FINAL DIFF MANUAL Platelet Estimate NORMAL Platelet Morphology Comment NORMAL Basophilic Stippling MOD Total Protein 7.7 Lactic Acid Level 1.7 Protein Corrected Calcium 7.1 Date/Time Source Procedure Growth Status 02/17/18 17:32 Urine Catheterized Urine Urine Culture - Final Kirstin Glabrata Complete 02/18/18 11:00 Wound Foot Gram Stain - Final Complete 02/18/18 11:00 Wound Culture - Final Klebsiella Pneumoniae Esbl Pos Complete Result Diagram: 02/23/18 0250 02/23/18 0250 Assessment and Plan Assessment and Plan Group A Strep sepsis from foot infection -Antibiotics per ID -Reculture if indicated Septic shock -Aggressive IV fluid hydration -Levophed as needed to keep MAP above 65 -Telemetry -IV antibiotics -Kirstin glabrata- 50,00 CFU, but will initiate micafungin End-stage renal disease -Hemodialysis per nephrology Schizophrenia - Continue home dosing of Thorazine Diabetes mellitus -1 800 ADA diet -Insulin sliding scale DVT GI prophylaxis -Jad's and SCDs -Subcu heparin -Pepcid Critical Care: The total critical care time was 35 minutes. Time to perform other separately billable procedures was not included in the critical care time. Best Portillo MD Feb 23, 2018 05:12
[2018-02-23] MEDS ORDERED: TERBUTALINE INJ 1 MG/ML AMP SQ PRN (05:15)
[2018-02-23] MEDS ORDERED: SODIUM CHLOR 0.9% 1000 ML INJ 1,000 ML IV ONE ×3 (05:15)
[2018-02-23] MEDS: metroNIDAZOLE 500 MG TAB PO SCH ×3 (05:25→21:05)
[2018-02-23] MEDS: MIDODRINE 5 MG TAB PO SCH ×3 (05:25→17:55)
--- NOTE | 2018-02-23 06:08 | HHI.PR ---
Addendum to Inpatient Note Addendum Reason: Additional Documentation Additional Information Patient continued to have persistent hypotension on the medical floor despite two fluid boluses and albumin. Decision was made to transfer patient to ICu for closer monitoring. While in ICU patient continued to have a MAP of 53, discussed case with Dr. Portillo who agrees to be consulted on the patient for the need of vasopressors. Stat labs were ordered to evaluate fo sepsis. Patient will be transferred to the care of the bottle packing machine cleaner. Dr. Tobin made aware. Ashley Christine Feb 23, 2018 06:08
[2018-02-23] MEDS ORDERED: CALCIUM GLUCONATE INJ 2 GM in SODIUM CHLORIDE 0.9% INJ 100 ML IV ONE (06:30)
[2018-02-23] MEDS: INSULIN ASPART SUPPLEMENTAL SCALE SQ SCH ×4 (08:00→21:00)
[2018-02-23] MEDS: FERROUS SULFATE 325 MG (65 MG ELEMENTAL IRON) TAB PO SCH (08:38)
[2018-02-23] MEDS: FLUCONAZOLE 200 MG TAB PO SCH (08:39)
[2018-02-23] MEDS: ceFAZolin 1,000 MG/NS 100 ML IV SCH ×4 (08:56→21:05)
--- NOTE | 2018-02-23 10:32 | HHI.CCPN ---
Subjective Remarks/Hospital Course 57-year-old male with a past medical history significant for bilateral foot cellulitis/abscess with group a strep septicemia (on cefazolin and Flagyl until 02/27/18 per infectious disease), acute kidney injury requiring hemodialysis, C. difficile, hepatitis C, anemia, diabetes mellitus, schizophrenia and hypertension has been admitted for the evaluation of abnormal labs. The patient [facility] a [facility] and had routine labs done showing anemia, worsening renal function and hyponatremia. The patient complains only of being very tired. He denies any dizziness or loss of consciousness. He was admitted to [facility] floor where he developed profound hypotension refractory to IV fluid bolus. He is admitted to ICU for aggressive IV fluid resuscitation and vasopressors treatment. A wound culture was obtained from the left foot ulcer is now reported as growing Klebsiella ESBL positive. Patient also had an abnormal urinalysis when he came in, and the urine culture is now reported as growing Kirstin glabrata. Subjective: 02/23: Afebrile. Patient sitting up in bed in no acute distress, responding to questions appropriately patient on third liter of IV fluid and remains on norepinephrine currently at 2 mics/minute. Patient's urine culture resulted Kirstin glabrata, however only 50,000 CFU but will initiate micafungin secondary to continued hypotension. Patient's midodrine was increased to 10 mg 3 times daily. Patient was noted to have low calcium level today which has been repleted. Electrolyte and CBC panel pending. Objective Vital Signs Date Time Temp Pulse Resp B/P (MAP) Pulse Ox O2 Delivery O2 Flow Rate FiO2 02/23/18 08:00 80 02/23/18 08:00 97.9 16 96/49 (65) 96 02/23/18 07:00 Nasal Cannula 4.00 02/21/18 20:30 21 Intake and Output 02/23/18 02/23/18 02/24/18 08:00 16:00 00:00 Intake Total 2160 ml Balance 2160 ml Result Diagram: 02/23/18 0250 02/23/18 0250 Objective Remarks GENERAL: Well-nourished, well-developed patient sitting up in bed in no acute distress SKIN: Warm and dry. HEAD: Normocephalic. EYES: No scleral icterus. No injection or drainage. NECK: Supple, trachea midline. No JVD or lymphadenopathy. CARDIOVASCULAR: Regular rate and rhythm without murmurs, gallops, or rubs. RESPIRATORY: Breath sounds equal bilaterally. No accessory muscle use. GASTROINTESTINAL: Abdomen soft, non-tender, nondistended. MUSCULOSKELETAL: No cyanosis, or edema. Has ulcers both plantar aspect of feet, clean, with red tissue, no necrotic tissue, no purulence, no periwound erythema. Bilateral dressings on feet C/D I BACK: Nontender without obvious deformity. NEURO EXAM: GCS: 15 Mental Status: The patient is alert and oriented to person, place, and time with normal speech. Cranial Nerves: Visual acuity intact bilaterally. Visual coulter normal in all quadrants. Pupils are round, reactive to light. Extraocular movements are intact without ptosis. Hearing is normal bilaterally. Voice is normal. Tongue protrudes midline and moves symmetrically. GCS 15 A/P Assessment and Plan Plan by systems: Neurologic: Schizophrenia Continue home dosing of Thorazine [place] as needed for pain scale 1-10, secondary to bilateral foot ulcers Respiratory: Maintain O2 sat greater than 92% Initiate incentive spirometry while awake Bronchodilators as needed for wheezing Cardiovascular: Hypotension History of hypertension Maintain MAP greater than 65 Amlodipine placed on hold Norepinephrine to maintain MAP greater than 65 Continue Midodrine increased dosing 10 mg 3 times daily Renal: Acute renal failure Dialysis initiated 02/21/2018, hemodialysis schedule per nephrology Vas-Cath placement 02/20/18 Strict I and O's MSK: Bilateral foot ulcers Continue wound care plan Group A strep B/L feet Reculture if indicated -- Strict I/Os FEN/GI: Monitor BMP Obtain stat BMP Continue 1800 ADA diet Heme/ID: Septic shock UTI Group a strep History of C. difficile Kirstin glabrata- 50,00 CFU, but will initiate micafungin 02/23 The patient received aggressive fluid hydration, 3L ID following Continue antibiotic regimen Reculture if indicated Endocrine: Diabetes mellitus Glucose monitoring per ICU protocol -- SSI Prophylaxis: GI Prophylaxis Famotidine DVT Prophylaxis -- SCDs Heparin subcu Lines: Right [id number] in situ. Peripheral IVs 2. Central line if indicated Dispo: Level 3 follow up Review of medical records the patient was previously offered hospice support. Will consult palliative care team for evaluation and definition of goals of care. Physician Maddi Lewis MD Feb 23, 2018 10:32
[2018-02-23] MEDS: THIORIDAZINE HCL 50 MG TAB PO SCH (10:41)
[2018-02-23] MEDS: SODIUM CHLORIDE 0.9% FLUSH 10 ML FLUSH IV FLUSH SCH ×2 (10:41→20:03)
[2018-02-23] MEDS: MICAFUNGIN INJ 100 MG in SODIUM CHLORIDE 0.9% INJ 100 ML IV SCH (10:54)
--- NOTE | 2018-02-23 12:25 | HHI.NPPN ---
Subjective Renal Failure: Acute Review of Systems General Constitutional: Fatigue Gastrointestinal Gastrointestinal: Nausea & Vomiting Objective Data Data 02/23/18 02/24/18 18:59 06:59 Intake Total 4245 ml Balance 4245 ml IV Total 4245 ml Vital Signs Date Time Temp Pulse Resp B/P (MAP) Pulse Ox O2 Delivery O2 Flow Rate FiO2 02/23/18 10:00 79 02/23/18 08:00 80 02/23/18 08:00 97.9 80 16 96/49 (65) 96 02/23/18 07:00 98 Nasal Cannula 4.00 02/23/18 06:00 77 02/23/18 04:00 97.8 86 39 76/50 (59) 99 02/23/18 04:00 86 02/23/18 03:00 78 02/23/18 02:33 97.3 101 20 78/40 (53) 92 02/23/18 02:10 97.4 98 20 75/42 (53) 98 02/23/18 02:10 98 Nasal Cannula 4.00 02/23/18 02:10 98 4.00 02/23/18 00:48 97.7 02/23/18 00:00 96.5 81 18 86/44 (58) 98 02/22/18 21:00 Nasal Cannula 4.00 02/22/18 20:15 90/46 (61) 02/22/18 20:00 94.6 82 18 78/46 (57) 97 02/22/18 20:00 82 02/22/18 17:34 98 Nasal Cannula 4.00 02/22/18 16:00 97.3 88 20 84/47 (59) 98 02/22/18 16:00 82 -: 02/23/18 0250 02/23/18 0250 Tubes & Lines: Vas-Cath Physical Exam General Appearance: No Acute Distress, Malnourished Eyes Eye Exam: Pupils Equal, Pupils Reactive Neck Neck Exam: Neck Supple Pulmonary Resp Exam: Clear Bilaterally, Breath Sounds Equal Cardiology CV Exam: Regular, Normal Sinus Rhythm Gastrointestinal/Abdomen GI Exam: Soft, Non-Tender Musculoskeletal MS Exam: Joints Intact, Atrophy, Unable to Ambulate Integumentary Skin Exam: Warm, Dry Extremeties Extremities Exam: No Edema, Pedal Pulses Palpable Neurologic Neuro Exam: Alert, Awake, Oriented, Speech Clear, Moving All Extremities Psychiatric Psych Exam: Appropriate Responses Assessment/Plan Discussed Condition With: Patient Assessment Summary: BISHOP/Acute Renal Failure Electrolyte Assessment: Hyperkalemia, Metabolic Acidosis Problem List: (1) Acute kidney injury ICD Codes: N17.9 - Acute kidney failure, unspecified Plan: Most likely has suffered ATN from hypotension and hypoperfusion due to sepsis Also need to consider AIN due to Cefazolin or the other medications. He has become oliguric. HD initiated 02/19 and 02/20. Stat labs ordered, repeat again tomorrow HD TTS if needed Has Vascath in place, most likely will need Permcath at later date On midodrine TID, avoid hypotension Acidosis has improved. Overall Prognosis is poor. It is unclear if he will need jail dialysis. Declined hospice suggestion Blood pressure remains low he has bilateral leg wounds and poor perfusion hemodialysis ultrafiltration of 2 L yesterday Transferred to ICU as he became hypotensive requiring fluids and vasopressor Dr. Mcmahon to follow (2) Hyperkalemia ICD Codes: E87.5 - Hyperkalemia Plan: Improved with dialysis, monitor. 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 Improved after dialysis. Monitor. (4) Anemia ICD Codes: D64.9 - Anemia, unspecified Status: Acute Plan: Given blood transfusion On epogen Follow CBC Consider IV Venofer however he has evidence of sepsis, PO may be better for now. . (5) DM (diabetes mellitus) ICD Codes: E11.9 - Type 2 diabetes mellitus without complications Status: Chronic Plan: Insulin coverage as needed, maintain blood sugar between 140 and 180. (6) Infected stasis ulcer ICD Codes: I83.209 - Varicose veins of unspecified lower extremity with both ulcer of unspecified site and inflammation Status: Acute Plan: Wound with klebsiella, sensitivity reviewed. Wound care has been consulted. (7) UTI (urinary tract infection) ICD Codes: N39.0 - Urinary tract infection, site not specified Status: Acute Plan: On Rocephin Problem Qualifiers (1) UTI (urinary tract infection): Qualified Codes: N30.00 - Acute cystitis without hematuria Harry Vazquez MD Feb 23, 2018 12:25
[2018-02-23 12:29] LABS: AUTOMATED NEUTROPHIL # 5.7 TH/MM3 (1.8-7.7); BASOPHIL # 0.1 TH/MM3 (0-0.2); BASOPHIL % 1.1 % (0.0-2.0); EOSINOPHIL # 0.2 TH/MM3 (0-0.4); EOSINOPHIL % 2.6 % (0.0-4.0); HEMOGLOBIN 7.6 GM/DL (13.0-17.0); LYMPH % 21.9 % (9.0-44.0); MEAN CELL VOLUME 88.2 FL (80.0-100.0); MEAN CORPUSCULAR HEMOGLOBIN 28.1 PG (27.0-34.0); MEAN CORPUSCULAR HGB CONC 31.8 % (32.0-36.0); MEAN PLATELET VOLUME 10.4 FL (7.0-11.0); MONO % 10.6 % (0.0-8.0); NEUT % 63.8 % (16.0-70.0); PLATELET COUNT 283 TH/MM3 (150-450); RED BLOOD COUNT 2.72 MIL/MM3 (4.50-5.90); RED CELL DISTRIBUTION WIDTH 15.9 % (11.6-17.2)
[2018-02-23 12:50] LABS: ALBUMIN 1.7 GM/DL (3.4-5.0); AST (GOT) 114 U/L (15-37); BICARBONATE 25.1 MEQ/L (21.0-32.0); BLOOD UREA NITROGEN 16 MG/DL (7-18); CALCIUM 7.6 MG/DL (8.5-10.1); CHLORIDE 99 MEQ/L (98-107); CREATININE 2.94 MG/DL (0.60-1.30); GLOMERULAR FILTRATION RATE 22 ML/MIN (>89); GLUCOSE,RANDOM 156 MG/DL (74-106); MAGNESIUM 2.1 MG/DL (1.5-2.5); SODIUM (NA) 134 MEQ/L (136-145)
[2018-02-23 12:56] LABS: BANDS 6 % (0-6); CORRECTED NUCLEATED RBC 35 /100 WBC (0-0); LYMPHOCYTES 12 % (9-44); MONOCYTES 6 % (0-8); MYELOCYTES 3 % (0-0); NEUTROPHIL # MANUAL DIFF 7.1 TH/MM3 (1.8-7.7); NUCLEATED RED BLOOD CELL 35 (0-0); POLYS (SEG NEUTROPHILS) 70 % (16-70)
[2018-02-23 12:58] LABS: TARGET CELLS 1+ (NORMAL)
[2018-02-23 12:59] LABS: ALKALINE PHOSPHATASE 422 U/L (45-117); ALT (GPT) 14 U/L (12-78); TOTAL BILIRUBIN ADULT 0.4 MG/DL (0.2-1.0); TOTAL PROTEIN 7.6 GM/DL (6.4-8.2)
[2018-02-23] MEDS: ACETAMINOPHEN/HYDROcodone 325 MG/10 MG TAB PO PRN (17:55)
[2018-02-23] MEDS: NOREPINEPHRINE-DEXTROSE DRIP 250 ML IV PRN ×2 (18:32→23:46)
[2018-02-23] MEDS ORDERED: ASP: Documented ESBL, MDR A baumannii or P. aeruginosa PRN (19:00)
[2018-02-23] MEDS ORDERED: PHARMACY INFORMATION XX PRN (19:00)
--- NOTE | 2018-02-23 19:03 | HHI.IDPN ---
Subjective Subjective Remarks ID [id number] cover reconsulted by Dr Dominguez Chart reviewed: Patient is a 57-year-old male, came from the halfway, brought into the hospital for abnormal routine labs showing anemia, hyponatremia, and worsening renal function. Patient was hospitalized last month and at that time he had group A strep septicemia as well as bilateral foot ulcers with infection. During that hospitalization he also had acute kidney injury and it improved but not to normal limits. Patient was discharged on IV Ancef for his sepsis, with plans to complete treatment on February 27. According to the patient he had a wound VAC to his left foot wound, and on the day he was transferred to the hospital the wound VAC was removed. There was a wound care nurse following him in the halfway. Nephrology saw the patient on this admission, and his kidney function continued to deteriorate, and the patient was started on hemodialysis on February 19. He has a Vas-Cath in the right IJ. Patient's urine output has been low. During his last admission patient also was diagnosed to have C. difficile colitis. Currently he denies any diarrhea, and he has had formed stools in the last 2 days. He denies any abdominal pain. No nausea or vomiting. Wound care has seen the patient and has ordered wound dressing changes to both feet ulcers. A wound culture was obtained from the left foot ulcer, and it is now reported as growing Klebsiella ESBL positive. The Gram stain from the wound had rare WBC. Patient also had an abnormal urinalysis when he came in, and the urine culture is now reported as growing Kirstin glabrata. Heis abx were stopped on ; he was on rocephin and flagyl prior ; switched to ancef + flagyl Micafungin added today events noted pt was transferred to ICU 2/2 hypotension; started on pressors no fever noted HIs foot clx was + fro ESBL + Kleb pneuimo CT from 02/17 noterd: no stones, but perocholecysti fluid present Also has abnormal LFTs - Alk phos up Antibiotics cefaolin metronidazole micafungin Past Medical History Bilateral foot cellulitis/abscess with group a strep septicemia (on cefazolin and Flagyl until 02/27/18 per infectious disease) Acute kidney injury requiring hemodialysis C. 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 Vital Signs Date Time Temp Pulse Resp B/P (MAP) Pulse Ox O2 Delivery O2 Flow Rate FiO2 02/23/18 18:32 83 85/43 02/23/18 18:00 82 02/23/18 16:00 98.8 80 17 86/50 (62) 89 02/23/18 16:00 80 02/23/18 14:00 79 02/23/18 12:00 97.8 80 10 93/50 (64) 93 02/23/18 12:00 80 02/23/18 10:00 79 02/23/18 08:00 80 02/23/18 08:00 97.9 80 16 96/49 (65) 96 02/23/18 07:00 98 Nasal Cannula 4.00 02/23/18 06:00 77 02/23/18 04:00 97.8 86 39 76/50 (59) 99 02/23/18 04:00 86 02/23/18 03:00 78 02/23/18 02:33 97.3 101 20 78/40 (53) 92 02/23/18 02:10 97.4 98 20 75/42 (53) 98 02/23/18 02:10 98 Nasal Cannula 4.00 02/23/18 02:10 98 4.00 02/23/18 00:48 97.7 02/23/18 00:00 96.5 81 18 86/44 (58) 98 02/22/18 21:00 Nasal Cannula 4.00 02/22/18 20:15 90/46 (61) 02/22/18 20:00 94.6 82 18 78/46 (57) 97 02/22/18 20:00 82 02/23/18 02/23/18 02/24/18 15:00 23:00 07:00 Intake Total 4465 ml 700 ml Output Total 0 ml Balance 4465 ml 700 ml Intake Oral 700 ml IV Total 4465 ml Output Urine Total 0 ml # Voids 0 # Bowel Movements 0 . Laboratory Tests Test 02/23/18 02:50 02/23/18 11:15 White Blood Count 7.7 TH/MM3 9.0 TH/MM3 Red Blood Count 2.51 MIL/MM3 2.72 MIL/MM3 Hemoglobin 7.3 GM/DL 7.6 GM/DL Hematocrit 22.2 % 24.0 % Mean Corpuscular Volume 88.4 FL 88.2 FL Mean Corpuscular Hemoglobin 29.2 PG 28.1 PG Mean Corpuscular Hemoglobin Concent 33.0 % 31.8 % Red Cell Distribution Width 15.4 % 15.9 % Platelet Count 270 TH/MM3 283 TH/MM3 Mean Platelet Volume 10.1 FL 10.4 FL Neutrophils (%) (Auto) 63.7 % 63.8 % Lymphocytes (%) (Auto) 21.7 % 21.9 % Monocytes (%) (Auto) 11.0 % 10.6 % Eosinophils (%) (Auto) 2.6 % 2.6 % Basophils (%) (Auto) 1.0 % 1.1 % Neutrophils # (Auto) 4.9 TH/MM3 5.7 TH/MM3 Lymphocytes # (Auto) 1.7 TH/MM3 2.0 TH/MM3 Monocytes # (Auto) 0.8 TH/MM3 1.0 TH/MM3 Eosinophils # (Auto) 0.2 TH/MM3 0.2 TH/MM3 Basophils # (Auto) 0.1 TH/MM3 0.1 TH/MM3 CBC Comment AUTO DIFF AUTO DIFF Differential Total Cells Counted 100 100 Neutrophils % (Manual) 71 % 70 % Band Neutrophils % 8 % 6 % Lymphocytes % 17 % 12 % Monocytes % 2 % 6 % Basophils % 1 % Neutrophils # (Manual) 6.2 TH/MM3 7.1 TH/MM3 Metamyelocytes 1 % Nucleated Red Blood Cells 44 /100 WBC 35 /100 WBC Differential Comment FINAL DIFF MANUAL FINAL DIFF MANUAL Platelet Estimate NORMAL NORMAL Platelet Morphology Comment NORMAL ENLARGED Basophilic Stippling MOD Eosinophils % 3 % Myelocytes 3 % Target Cells 1+ Red Cell Morphology Comment Laboratory Tests Test 02/22/18 05:30 02/23/18 02:50 02/23/18 09:04 02/23/18 11:15 Blood Urea Nitrogen 29 MG/DL 17 MG/DL 16 MG/DL Creatinine 4.07 MG/DL 2.98 MG/DL 2.94 MG/DL Random Glucose 110 MG/DL 145 MG/DL 156 MG/DL Albumin 1.6 GM/DL 1.7 GM/DL Calcium Level 7.9 MG/DL 7.3 MG/DL 7.6 MG/DL Phosphorus Level 2.5 MG/DL Sodium Level 131 MEQ/L 135 MEQ/L 134 MEQ/L Potassium Level 4.0 MEQ/L 3.7 MEQ/L 3.5 MEQ/L Chloride Level 95 MEQ/L 98 MEQ/L 99 MEQ/L Carbon Dioxide Level 26.1 MEQ/L 28.8 MEQ/L 25.1 MEQ/L Anion Gap 10 MEQ/L 8 MEQ/L 10 MEQ/L Estimat Glomerular Filtration Rate 15 ML/MIN 22 ML/MIN 22 ML/MIN Total Protein 7.7 GM/DL 7.6 GM/DL Lactic Acid Level 1.7 mmol/L 1.7 mmol/L Protein Corrected Calcium 7.1 MG/DL Magnesium Level 2.1 MG/DL Alkaline Phosphatase 422 U/L Aspartate Amino Transf (AST/SGOT) 114 U/L Alanine Aminotransferase (ALT/SGPT) 14 U/L Total Bilirubin 0.4 MG/DL Imaging Last Impressions Catheter Placement X-Ray 02/19/18 Signed Impressions: CONCLUSION: Uncomplicated ultrasound and fluoroscopic guided central venous dialysis cathet er placement as above. Renal Ultrasound 02/18/18 Signed Impressions: CONCLUSION: 1. Suspected increased echotexture of the renal parenchyma likely representing medical renal disease. No hydronephrosis is present. 2. There is trace free fluid around the liver. Chest X-Ray 02/17/18 Signed Impressions: CONCLUSION: 1. Cardiomegaly with plain film findings suggesting some degree of vascular co ngestion or volume overload. 2. Left basilar consolidation/effusion. Abdomen/Pelvis CT 02/17/18 Signed Impressions: CONCLUSION: 1. Moderate bilateral pleural effusions and compressive atelectasis which is a new finding since January 14. 2. Small amount free fluid with anasarca. 3. Pericholecystic fluid without definite gallstones. 4. 5 cm fat-containing periumbilical hernia, stable. 5. No bowel obstruction or free air. Physical Exam GENERAL: Patient is a well-nourished, well-developed male, looks chronically ill appearing and looks older than stated age, awake and alert, not in respiratory distress. SKIN: Cool and dry. No generalized rash, no ecchymoses and no evidence of embolic lesions. HEAD: Atraumatic. Normocephalic. No temporal wasting, or tenderness. EYES: Pale conjunctiva. No petechia or hemorrhage. Pupils equal, round and reactive to light. Extraocular movements full and intact. No scleral icterus. No injection or drainage. EARS, NOSE AND THROAT: Mucous membranes pink and moist. No oral lesions noted. No exudate. No oral thrush. NECK: Trachea midline. Supple and not tender, no meningeal signs CARDIOVASCULAR: Regular rate and rhythm. No murmurs, rubs or gallops heard RESPIRATORY: Clear to auscultation. Breath sounds equal bilaterally. No rales , wheezing or rhonchi ABDOMEN: Soft, non-tender, nondistended. Bowel sounds present and normoactive. No guarding. No rebound. No organomegaly. Has reducible umbilical hernia + some RLQ tenderness EXTREMITIES: No clubbing, cyanosis. No calf tenderness. Well perfused and warm. Has ulcers both plantar aspect of feet, clean, with red tissue, no necrotic tissue, no purulence, no periwound erythema. Some edema present NEUROLOGICAL: Awake and alert. Cranial nerves grossly intact. Motor grossly within normal limits. PSYCHIATRIC: Normal affect, calm and cooperative. LINE: No evidence of infection, he has a Dc on the right chest and right IJ Vas-Cath Assessment & Plan Remarks IMPRESSION Group A Strep sepsis from foot infection, better - to finish Rx February 27 (+) wound C/S with Kleb ESBL+ - colonization, wound looks clean and no evidence of infection Renal failure, on HD Hx C diff colitis New sepsis ? acute cholecystitis - some abnormalitis were present 1 week ago ? colitis ( c.diff recently) abnormal LFTs, some tenderness present as well RECOMMENDATION Complete Rx with Ancef till February 27 CT A/P Meropenem Daptomycin cont micafungin dw Dr Valentine Lund,Kari Lind MD Feb 23, 2018 19:03
[2018-02-23] MEDS ORDERED: MEROPENEM INJ 500 MG in SODIUM CHLORIDE 0.9% INJ 100 ML IV SCH (20:00)
[2018-02-23] MEDS: DAPTOmycin INJ 800 MG in SODIUM CHLORIDE 0.9% INJ 100 ML IV SCH (21:04)
--- NOTE | 2018-02-23 21:14 | RADRPT ---
EXAM DATE: 02/23/2018 8:47 PM EDT AGE/SEX: 57 years / Male INDICATIONS: Abdomen pain. CLINICAL DATA: This is the patient's initial encounter. Patient reports that signs and symptoms have been present for 1 day and indicates a pain score of 10/10. MEDICAL/SURGICAL HISTORY: Cardiovascular disease. Hypertension. Diabetes mellitus type II. G ERD . RADIATION DOSE: 16.49 CTDI (mGy) COMPARISON: [facility] [place], CT ABDOMEN & PELVIS W/O CONTRAST, 02/17/2018. . TECHNIQUE: Multiple contiguous axial images were obtained through the abdomen. Images were obtained using multiple row detector helical technique. Using dose reduction techniques, radiation dose was ke pt as low as reasonably achievable to obtain optimal diagnostic quality images. FINDINGS: There are moderate pleural effusions bilaterally both of which have increased slightly since February 17. There is compressive atelectasis at the lung bases. There is severe anasarca which has worsened since February 17. Mild ascites is present, also worsened sinc e February 17. No focal abnormality in the liver and spleen, adrenals or pancreas. No focal renal abnormalities. The re is some gallbladder thickening and pericholecystic fluid which is stable and may be related to marie sarca. No calcified gallstones. Stable fat-containing umbilical hernia measuring up to about 5 cm in diameter. No bowel obstruction. No free air. CONCLUSION: 1. Worsening moderate bilateral pleural effusions, severe anasarca and mild ascites compared with . 2. Stable pericholecystic fluid and gallbladder wall thickening probably related to anasarca. 3. Stable umbilical hernia. No bowel obstruction or free air. Electronically signed by: Marcio Hansen MD 02/23/2018 9:12 PM EDT
[2018-02-23] MEDS: PROMETHAZINE INJ 25 MG/ML VIAL IV-CENTRAL PRN (21:58)
[2018-02-23] MEDS ORDERED: ONDANSETRON HCL 4 MG/2 ML VIAL IV PUSH PRN (22:00)
[2018-02-23] MEDS: HYDROmorphone HCL PF 2 MG/ML VIAL IV PUSH PRN (23:18)
[2018-02-24] VITALS (14 sets, daily range): BP systolic 92–102; BP diastolic 47–57; PULSE 75–90; RESP 10–25; TEMP 94–98.6; O2SAT 90–98
[2018-02-24] MEDS: CHLORHEXIDINE GLUCONATE 2 % 1 PACK (2 CLOTHS)(taper/protocol) TOPICAL SCH (04:00)
[2018-02-24] MEDS: metroNIDAZOLE 500 MG TAB PO SCH ×3 (05:44→21:33)
[2018-02-24] MEDS: MIDODRINE 5 MG TAB PO SCH ×3 (05:44→16:21)
[2018-02-24 07:43] LABS: AUTOMATED NEUTROPHIL # 6.1 TH/MM3 (1.8-7.7); BASOPHIL # 0.1 TH/MM3 (0-0.2); BASOPHIL % 0.7 % (0.0-2.0); EOSINOPHIL # 0.3 TH/MM3 (0-0.4); EOSINOPHIL % 3.2 % (0.0-4.0); HEMATOCRIT 24.7 % (39.0-51.0); HEMOGLOBIN 7.9 GM/DL (13.0-17.0); LYMPH % 21.8 % (9.0-44.0); LYMPHOCYTE # 2.1 TH/MM3 (1.0-4.8); MEAN CELL VOLUME 89.9 FL (80.0-100.0); MEAN CORPUSCULAR HEMOGLOBIN 28.8 PG (27.0-34.0); MEAN PLATELET VOLUME 10.2 FL (7.0-11.0); MONO % 10.4 % (0.0-8.0); NEUT % 63.9 % (16.0-70.0); PLATELET COUNT 285 TH/MM3 (150-450); RED BLOOD COUNT 2.75 MIL/MM3 (4.50-5.90); RED CELL DISTRIBUTION WIDTH 15.8 % (11.6-17.2); WHITE BLOOD COUNT 9.5 TH/MM3 (4.0-11.0)
[2018-02-24] MEDS: INSULIN ASPART SUPPLEMENTAL SCALE SQ SCH ×4 (07:50→21:00)
[2018-02-24] MEDS: FERROUS SULFATE 325 MG (65 MG ELEMENTAL IRON) TAB PO SCH (08:08)
[2018-02-24] MEDS: FLUCONAZOLE 200 MG TAB PO SCH (08:08)
[2018-02-24] MEDS: THIORIDAZINE HCL 50 MG TAB PO SCH (08:09)
[2018-02-24] MEDS: HYDROmorphone HCL PF 2 MG/ML VIAL IV PUSH PRN (08:10)
[2018-02-24] MEDS: SODIUM CHLORIDE 0.9% FLUSH 10 ML FLUSH IV FLUSH SCH ×2 (08:10→20:35)
[2018-02-24] MEDS: NOREPINEPHRINE-DEXTROSE DRIP 250 ML IV PRN ×2 (08:12→21:00)
[2018-02-24 08:13] LABS: ALBUMIN 1.6 GM/DL (3.4-5.0); AST (GOT) 104 U/L (15-37); BICARBONATE 23.5 MEQ/L (21.0-32.0); BLOOD UREA NITROGEN 20 MG/DL (7-18); CALCIUM 7.5 MG/DL (8.5-10.1); CHLORIDE 99 MEQ/L (98-107); CREATININE 3.55 MG/DL (0.60-1.30); GLOMERULAR FILTRATION RATE 18 ML/MIN (>89); GLUCOSE,RANDOM 189 MG/DL (74-106); MAGNESIUM 2.1 MG/DL (1.5-2.5); SODIUM (NA) 133 MEQ/L (136-145)
[2018-02-24 08:17] LABS: ALKALINE PHOSPHATASE 395 U/L (45-117); ALT (GPT) 9 U/L (12-78); PHOSPHORUS 3.2 MG/DL (2.5-4.9); TOTAL BILIRUBIN ADULT 0.4 MG/DL (0.2-1.0); TOTAL PROTEIN 7.6 GM/DL (6.4-8.2)
[2018-02-24] MEDS ORDERED: ALBUMIN 5% INJ 250 ML IV ONE ×2 (09:07→09:30)
[2018-02-24 09:19] LABS: BANDS 4 % (0-6); CORRECTED NUCLEATED RBC 14 /100 WBC (0-0); LYMPHOCYTES 13 % (9-44); MONOCYTES 4 % (0-8); MYELOCYTES 2 % (0-0); NEUTROPHIL # MANUAL DIFF 7.4 TH/MM3 (1.8-7.7); NUCLEATED RED BLOOD CELL 14 (0-0); POLYS (SEG NEUTROPHILS) 72 % (16-70); TARGET CELLS 2+ (NORMAL)
[2018-02-24 09:20] LABS: POLYCHROMASIA 2.5 % (0.0-1.9)
[2018-02-24] MEDS: VASOPRESSIN 40 U/D5W 100 ML Titrate, Post Cardiac Surgery IV PRN ×2 (09:48)
--- NOTE | 2018-02-24 09:55 | HHI.NPPN ---
Subjective Renal Failure: Acute Interval [place] [facility] [place] dose [place] pressor support. Awake, pale, ill appearing. (Laura Quesada) Review of Systems General Constitutional: Fatigue (Laura Quesada) Gastrointestinal Gastrointestinal: Nausea & Vomiting (Laura Quesada) Objective Data Data Vital Signs Date Time Temp Pulse Resp B/P (MAP) Pulse Ox O2 Delivery O2 Flow Rate FiO2 02/24/18 08:12 81 97/51 02/24/18 06:00 82 02/24/18 04:00 98.1 80 15 100/51 (67) 96 02/24/18 04:00 80 02/24/18 02:00 79 02/24/18 00:04 20 02/24/18 00:00 98.6 75 16 92/50 (64) 98 02/24/18 00:00 75 02/23/18 23:46 76 92/47 02/23/18 22:00 80 02/23/18 21:04 80 88/51 02/23/18 20:00 98.2 81 26 91/49 (63) 93 02/23/18 20:00 81 02/23/18 19:56 92 Nasal Cannula 2.00 02/23/18 19:00 93 Nasal Cannula 4.00 02/23/18 19:00 98 Nasal Cannula 4.00 02/23/18 18:55 16 02/23/18 18:32 83 85/43 02/23/18 18:00 82 02/23/18 16:00 98.8 80 17 86/50 (62) 89 02/23/18 16:00 80 02/23/18 14:00 79 02/23/18 12:00 97.8 80 10 93/50 (64) 93 02/23/18 12:00 80 02/23/18 10:00 79 (Laura Quesada) -: 02/24/18 0645 02/24/18 0645 Microbiology 02/23/18 Aerobic Blood Culture, Received Pending 02/23/18 Anaerobic Blood Culture, Received Pending 02/23/18 Aerobic Blood Culture, Received Pending 02/23/18 Anaerobic Blood Culture, Received Pending Imaging Last 72 hours Impressions Abdomen/Pelvis CT 02/23/181945 Signed Impressions: CONCLUSION: 1. Worsening moderate bilateral pleural effusions, severe anasarca and mild as cites compared with February 17. 2. Stable pericholecystic fluid and gallbladder wall thickening probably relat ed to anasarca. 3. Stable umbilical hernia. No bowel obstruction or free air. Tubes & Lines: Vas-Cath, Chirinos Drip Comment Levophed (Laura Quesada) Physical Exam General Appearance: No Acute Distress, Malnourished Appearance Remarks chronically ill appearing (Laura Quesada) Eyes Eye Exam: Pupils Equal, Pupils Reactive (Laura QuesadaP) Neck Neck Exam: Neck Supple (Laura QuesadaP) Pulmonary Resp Exam: Clear Bilaterally, Breath Sounds Equal (Laura Quesada) Cardiology CV Exam: Regular, Normal Sinus Rhythm (Laura Quesada) Gastrointestinal/Abdomen GI Exam: Soft, Non-Tender (Laura Quesada) Musculoskeletal MS Exam: Joints Intact, Atrophy, Unable to Ambulate (Laura Quesada) Integumentary Skin Exam: Warm, Dry Skin Remarks multiple wounds on feet, erythema, open blisters noted bilaterally (Laura Quesada) Extremeties Extremities Exam: No Edema, Pedal Pulses Palpable (Laura Quesada) Neurologic Neuro Exam: Alert, Awake, Oriented, Speech Clear, Moving All Extremities (Laura Quesada) Psychiatric Psych Exam: Appropriate Responses (Laura Quesada) Assessment/Plan Discussed Condition With: Patient Assessment Summary: BISHOP/Acute Renal Failure Electrolyte Assessment: Hyponatremia Problem List: (1) Acute kidney injury ICD Codes: N17.9 - Acute kidney failure, unspecified Plan: Most likely has suffered ATN from hypotension and hypoperfusion due to sepsis. AIN due to Cefazolin or the other medications is also on the differential. He has become oliguric. HD initiated 02/19 and 02/20. Now on TTS HD PRN. Obtain labs tomorrow, most likely will require HD. Has Vascath in place, most likely will need Permcath at later date Maintain MAP > 65mmHg. He is on high dose Levophed. Also on midodrine TID. Vasopressin has been ordered. Avoid hypotension. Acidosis has corrected. Not on maintenance IVF, tolerating oral fluids. Overall Prognosis is poor. It is unclear if he will need oysterman dialysis. Declined hospice suggestion. (2) Hyperkalemia ICD Codes: E87.5 - Hyperkalemia Plan: Improved with dialysis, monitor. 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 Improved, continue to monitor. (4) Anemia ICD Codes: D64.9 - Anemia, unspecified Status: Acute Plan: Given blood transfusion last week. On Epogen with HD Follow CBC Consider IV Venofer however he has evidence of sepsis, PO may be better for now. . (5) DM (diabetes mellitus) ICD Codes: E11.9 - Type 2 diabetes mellitus without complications Status: Chronic Plan: Insulin coverage as needed, maintain blood sugar between 140 and 180. (6) Infected stasis ulcer ICD Codes: I83.209 - Varicose veins of unspecified lower extremity with both ulcer of unspecified site and inflammation Status: Acute Plan: Wound with klebsiella, sensitivity reviewed. Wound care following (7) UTI (urinary tract infection) ICD Codes: N39.0 - Urinary tract infection, site not specified Status: Acute Plan: see below (8) Sepsis ICD Codes: A41.9 - Sepsis, unspecified organism Status: Resolved Plan: ID following Has foot wounds and UTI Antibiotics include meropenem, daptomycin, Ancef, and micafungin Continue supportive care (Laura Quesada) Plan patient was seen and examined. Agree with above assessment and plan. (Shaun Mcmahon MD) Problem Qualifiers (1) UTI (urinary tract infection): Qualified Codes: N30.00 - Acute cystitis without hematuria Laura Quesada Feb 24, 2018 09:54 Shaun Mcmahon MD Feb 24, 2018 11:22
[2018-02-24] MEDS: MEROPENEM INJ 500 MG in SODIUM CHLORIDE 0.9% INJ 100 ML IV SCH ×2 (10:32→20:34)
--- NOTE | 2018-02-24 10:50 | PD.CONS ---
Consult Service Palliative Care Consult Requested By Dr. Dominguez Primary Care Physician Frandy House MD Reason for Consultation a. To assist with evaluation and management of symptoms including:pain, b. To assist medical decision maker(s) with: better understanding of current medical conditions; weighing benefits/burdens of medical treatment options; making medical treatment decisions. HPI History of Present Illness Patient is a 57-year-old a past medical history of chronic kidney disease ( dialysis dependent), EtOH abuse ,Left foot cellulitis/abscess, that was sent to the hospital due to abnormal labs on 02/17/2018 with nausea and vomiting; and decreased urine output. Patient was hospitalized last month and at that time he had group A strep septicemia as well as bilateral foot ulcers with infection. During that hospitalization he also had acute kidney injury and it improved but not to normal limits. Patient was discharged on IV Ancef for his sepsis, with plans to complete treatment on February 27. He had a wound VAC to his left foot wound, and on the day he was transferred to the hospital the wound VAC was removed. Patient in the care home was found to be anemic with a high creatinine and low sodium. Patient also has been having diarrhea, c. diff . He was sent to the hospital. In the ER: * Temperature is 81, respirations 18, blood pressure is 95/53, pulse ox is 96% on 2 L nasal cannula * WBCs 10.2, hemoglobin 7.5, hematocrit 22.7, platelet is 408 * Sodium is 122, potassium is 5.4, chloride is 96, bicarbonate 16.1, BUN is 44, creatinine is 4.90 * AST is 140, ALT 7, alk phos is 455 * Total protein is 8.7 albumin is 1.3 * Chest x-ray shows cardiomegaly suggesting some degree of vascular congestion or volume overload. There is left basilar consolidation/effusion * Abdominal CT shows moderate bilateral pleural effusion. This is new finding compared to January 14. Small amount of free fluid with anasarca. Lizz-cholestatic fluid without definite gallstone. 5 cm fat-containing periumbilical hernia stable. There is no bowel obstruction or free air. * UA shows large amount of leukocyte esterase negative for nitrates. * Wound culture obtained. Patient is admitted to the hospital for renal insufficiency, anemia, UTI on the family medicine services. 02/18/2018-nephrology was consulted, came and evaluated patient. Feel acute on chronic renal injury may be due to ATN from hypotension, or antibiotics. Nephrology added bicarbonate to IV fluids, and noted consideration of stopping cefazolin if no improvement in renal function. Patient may need dialysis. Creatinine 4.97. Noted hypotension. Received PRBC 02/19/2018- 02/20- Cr continue to worsen and require dialysis. Patient mentioned hospice. Wound culture positive of Klebsiella pnuemonia-ESBL. 02/21/201802/22- ID consulted. Pt has Group A strep sepsis from foot infection. Wound culture show Kleb ESBL, colonization wound looks clean. ID recommends to continue Ancef until 02/27. Continue Flagyl while ABX. Rocephin was stopped. Kirstin in urine. 02/23/2018- Patient transferred to vocational nurse lvn team. Patient is on pressors. Patient previously was offered hospice, palliative care was consulted to review goals of care. In summary: This is a 57-year-old male with acute on chronic renal insufficiency (required dialysis) likely a result of ATN from sepsis/hyptension/ ypoerfusion, now with left foot ESBL, sepsis requiring pressors, fungemia and UTI. Nephrology continued to follow, noted overall prognosis is poor, and ist is unclear if he will need athletic field custodian dialysis. On my visit, patient is alert and oriented to time place and person. Patient does get a little sleepy at times during the conversation but does wake up. He is able to endorse for me that he has infections in "his feet and his kidneys are bad." He appears to have capacity to make medical decisions. He complains of lower back pain, /10, that is helped with Dilaudid. It hurts with movement , and he relates that his chronic and sharp. He denies any anxiety. He denies any nausea and vomiting at this time. Spoke to patient about his previous and current hospitalizations. Endorsed his current Klebsiella infection, and acute on chronic renal insufficiency. Talk to him about his current sepsis, his requirement for pressors. Spoke about his overall decline, and that I suspect, if he survives current hospitalization, he will come back and forth between the home/care home or the hospital. I told him I agree with head waitress and that overall he will continue to functionally decline. Offered hospice. Spoke about health care surrogates, code status, living calzada and other advance directives (17min). Goal of care is as follows. == Code status- is full code. He is unsure about peg or trach. == He declines hospice at this time, goals of care is not comfort oriented. == If it gets to the point where he would need chronic dialysis, he wants it. == he declines filling out a health care surrogate form at this point, he knows proxy would be his parents. == he is amenable for me to give his sister a call, who has inquire about his status. I spoke with sister Lashon who is an RN. I went over pt's clinical condition, and discussed his past hospitalization and spoke about his decline . She noted and confirm "He doesn't take care of himself well, and he keeps getting these infections for the past 3 years or so." She inquire about his sepsis, imaging. She would still like to review that with pt's critical care physician. She is very appreciative of call, and she will speak to parents. I let her know about pt's goals of care. Function/Cognitive Trajectory see hpi above in terms of my conversation with sister. Review of Systems Constitutional: COMPLAINS OF: Fatigue Endocrine: DENIES: Heat/cold intolerance, Polydipsia Eyes: DENIES: Blurred vision, Diplopia Ears, nose, mouth, throat: DENIES: Tinnitus, Hearing loss Respiratory: DENIES: Apneas, Cough Cardiovascular: DENIES: Chest pain Gastrointestinal: DENIES: Abdominal pain, Black stools Genitourinary: COMPLAINS OF: Decreased stream Musculoskeletal: COMPLAINS OF: Back pain Integumentary: DENIES: Abnormal pigmentation Hematologic/Lymphatics: DENIES: Bruising Immunologic/Allergic: DENIES: Eczema, Urticaria Neurologic: DENIES: Abnormal gait Psychiatric: DENIES: Anxiety Past Family Social History Coded Allergies: haloperidol (Verified Allergy, Severe, BLINDNESS, 01/14/18) vancomycin (Verified Allergy, Severe, 01/14/18) levofloxacin (Verified Allergy, Intermediate, Cramping, 01/14/18) fluphenazine (Verified Allergy, Unknown, "PARKINSONIAN SHACKS", 01/14/18) codeine (Verified Adverse Reaction, Mild, 01/14/18) "makes me feel funny" but feels ok taking Chapman's *MDRO Multi-Drug Resistant Organism (Verified Adverse Reaction, Unknown, VRE, 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 Past Medical History bilateral foot cellulitis/abscess with group a strep septicemia (on cefazolin and Flagyl until 02/27/18 per infectious disease), acute kidney injury requiring hemodialysis, C. difficile, hepatitis C, anemia, diabetes mellitus, schizophrenia and hypertension Past Surgical History Incision and drainage both feet Current Medications Medications (Trade) Dose Ordered Sig/Portia Route Start Time Stop Time Status Last Admin (NS Flush) 2 ml UNSCH PRN IV FLUSH 02/17/18 19:45 (NS Flush) 2 ml BID IV FLUSH 02/17/18 21:00 02/24/18 08:10 (Tylenol) 650 mg Q4H PRN PO 02/17/18 19:45 (Reglan Inj) 5 mg Q6H PRN IV PUSH 02/17/18 19:45 (Narcan Inj) 0.4 mg UNSCH PRN IV PUSH 02/17/18 19:45 (Milk Of Magnesia Liq) 30 ml Q12H PRN PO 02/17/18 19:45 (Senokot) 17.2 mg Q12H PRN PO 02/17/18 19:45 (Dulcolax Supp) 10 mg DAILY PRN RECTAL 02/17/18 19:45 (Lactulose Liq) 30 ml DAILY PRN PO 02/17/18 19:45 (Norvasc) 10 mg DAILY PO 02/18/18 09:00 Future Hold 02/19/18 08:47 (Ferrous Sulfate) 325 mg DAILY PO 02/18/18 09:00 02/24/18 08:08 (Chapman 10-325 Mg) 1 tab BID PRN PO 02/17/18 20:00 02/23/18 17:55 (Vistaril) 50 mg BID PO 02/17/18 21:00 02/24/18 08:09 (Flagyl) 500 mg Q8HR PO 02/17/18 22:00 02/24/18 05:44 (Heparin Central Flush) 500 unit Q12HR IV FLUSH 02/17/18 21:00 02/24/18 08:19 (D50w (Vial) Inj) 50 ml UNSCH PRN IV PUSH 02/17/18 20:30 (Glucagon Inj) 1 mg UNSCH PRN OTHER 02/17/18 20:30 (NovoLOG SUPPLEMENTAL SCALE) 1 ACHS SLIDING SCALE SQ 02/17/18 21:00 02/23/18 17:54 Cefazolin Sodium 1000 mg/Sodium Chloride 100 ml @ 200 mls/hr Q12H IV 02/17/18 22:00 02/27/18 23:00 02/23/18 21:05 (Mellaril) 200 mg DAILY PO 02/18/18 09:00 02/24/18 08:09 Sodium Chloride 1,000 ml @ 0 mls/hr Q0M PRN OTHER 02/19/18 09:35 (Heparin Inj) 8,000 units UNSCH PRN IV FLUSH 02/19/18 09:45 02/22/18 12:40 Sodium Chloride 1,000 ml @ 200 mls/hr Q5H PRN IV 02/19/18 09:35 Sodium Chloride 1,000 ml @ 0 mls/hr Q0M PRN OTHER 02/19/18 09:35 (Mannitol Inj) 12.5 gm UNSCH PRN IV 02/19/18 09:45 Albumin Human 100 ml @ 60 mls/hr UNSCH PRN IV 02/19/18 09:45 02/20/18 14:38 (NS Flush) 5 ml UNSCH PRN IV FLUSH 02/19/18 09:45 (Heparin Inj) UNSCH PRN .XX 02/19/18 09:45 (Gentamicin Inj) 20 mg UNSCH PRN OTHER 02/19/18 09:45 02/22/18 12:40 (Zofran Odt) 4 mg UNSCH PRN PO 02/19/18 09:45 (Tylenol) 650 mg UNSCH PRN PO 02/19/18 09:45 (Benadryl) 25 mg UNSCH PRN PO 02/19/18 09:45 (Nitrostat Sl) 0.4 mg UNSCH PRN SL 02/19/18 09:45 (Catapres) 0.1 mg UNSCH PRN PO 02/19/18 09:45 (Epogen Inj) 10,000 units UNSCH PRN IV PUSH 02/19/18 09:45 02/22/18 12:40 (Gelfoam 12 Mm/7 Mm Top) 1 foam UNSCH PRN TOP 02/19/18 09:45 (NS Flush) UNSCH PRN IV FLUSH 02/19/18 13:15 (Heparin Inj) UNSCH PRN IV FLUSH 02/19/18 13:15 (Diflucan) 200 mg DAILY PO 02/21/18 14:30 02/28/18 14:29 02/24/18 08:08 ([facility] [place] Nursing Information) Patient in critical care unit? Ass... Q361D .XX 02/23/18 03:00 (Chlorhexidine 2% Cloth) 3 pack DAILY@04 TOPICAL 02/23/18 04:00 02/27/18 04:01 02/24/18 04:00 (Chlorhexidine 2% Cloth) 3 pack UNSCH PRN TOPICAL 02/23/18 03:00 02/28/18 02:47 Norepinephrine Bitartrate 250 ml @ 7.5 mls/hr TITRATE PRN IV 02/23/18 05:15 02/24/18 08:12 (Brethine Inj) 1 mg UNSCH PRN SQ 02/23/18 05:15 (Proamatine) 10 mg TID@07,12,17 PO 02/23/18 12:00 02/24/18 05:44 Micafungin Sodium 100 mg/Sodium Chloride 100 ml @ 100 mls/hr Q24H IV 02/23/18 11:00 02/23/18 10:54 (ASP Crit: Doc ESBL, MDR A baumannii or P aer) 1 UNSCH X1 PRN .XX 02/23/18 19:00 02/24/18 18:59 ([facility] [place] [facility] Information) 1 UNSCH X1 PRN XX 02/23/18 19:00 02/24/18 18:59 Daptomycin 800 mg/ Sodium Chloride 100 ml @ 200 mls/hr Q48H IV 02/23/18 21:00 02/23/18 21:04 (Phenergan Inj) 12.5 mg Q6H PRN IV-CENTRAL 02/23/18 22:00 02/23/18 21:58 (Dilaudid Pf Inj) 1 mg Q4H PRN IV PUSH 02/23/18 23:00 02/24/18 08:10 Meropenem 500 mg/ Sodium Chloride 100 ml @ 200 mls/hr Q12HR IV 02/24/18 10:00 Albumin Human 250 ml @ 250 mls/hr ONCE ONCE IV 02/24/18 09:30 02/24/18 10:29 02/24/18 09:48 Vasopressin 40 units/Dextrose 100 ml @ 1.5 mls/hr TITRATE PRN IV 02/24/18 09:45 Family History Father in his 80's have cardiac problems Afib. Mother, per patient is well. Substance Use Tobacco: he denies Alcohol:yes, per pt occasional, but per medical record its more substantial Prescription med abuse:he denies Illicits:he denies Psychosocial History Never . No children. From [facility]. 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 Currently lives with parents. has 2 sister. One is a cpa. other sister lashon is an RN. Spiritual/Cultural Factors Brought up as a Denominational, but he shook his head as stated non-confucianism. Living Will: Never completed Health Care Surrogate: Never completed Durable Power of Parcel Post Order Clerk: Never completed Physical Exam Vital Signs Date Time Temp Pulse Resp B/P (MAP) Pulse Ox O2 Delivery O2 Flow Rate FiO2 02/24/18 08:12 81 97/51 02/24/18 06:00 82 02/24/18 04:00 98.1 80 15 100/51 (67) 96 02/24/18 04:00 80 02/24/18 02:00 79 02/24/18 00:04 20 02/24/18 00:00 98.6 75 16 92/50 (64) 98 02/24/18 00:00 75 02/23/18 23:46 76 92/47 02/23/18 22:00 80 02/23/18 21:04 80 88/51 02/23/18 20:00 98.2 81 26 91/49 (63) 93 02/23/18 20:00 81 02/23/18 19:56 92 Nasal Cannula 2.00 02/23/18 19:00 93 Nasal Cannula 4.00 02/23/18 19:00 98 Nasal Cannula 4.00 02/23/18 18:55 16 02/23/18 18:32 83 85/43 02/23/18 18:00 82 02/23/18 16:00 98.8 80 17 86/50 (62) 89 02/23/18 16:00 80 02/23/18 14:00 79 02/23/18 12:00 97.8 80 10 93/50 (64) 93 02/23/18 12:00 80 Exam CONSTITUTIONAL/GENERAL: This is a 57 year old gentlemen, looks fatigued. responsive, alert. TUBES/LINES/DRAINS: right central line, almaraz. SKIN: No jaundice, rashes, or lesions. Ecchymoses on upper extremities. No wounds seen anteriorly. Skin temperature appropriate. Not diaphoretic. HEAD: Atraumatic. Normocephalic. EYES: Pupils equal and round and reactive. Extraocular motions intact. No scleral icterus. No injection or drainage. Fundi not examined. ENT: Hearing grossly normal. Nose without bleeding or purulent drainage. Throat without visible erythema, exudates, masses, or lesions. NECK: Trachea midline. Supple, nontender. No palpable thyroid enlargement or nodularity. CARDIOVASCULAR: Regular rate and rhythm without murmurs, gallops, or rubs. No JVD. Peripheral pulses symmetric. RESPIRATORY/CHEST: Symmetric, unlabored respirations. Clear to auscultation. Breath sounds equal bilaterally. No wheezes, rales, or rhonchi. GASTROINTESTINAL: Abdomen soft, distended. Bowel sounds present. GENITOURINARY: Without palpable bladder distension. Almaraz catheter in place. MUSCULOSKELETAL: Extremities. lower extremitiy, feet have dressing, c/d/i LYMPHATICS: No palpable cervical or supraclavicular adenopathy. NEUROLOGICAL: Awake and alert. Motor and sensory grossly within normal limits. Follows commands. Cognitively sharp. Moves all extremities. Some lethargy at times. PSYCHIATRIC: No obvious anxiety/depression. no apparent hallucinations or other psychotic thought process. Diagnostic Tests Laboratory Laboratory Tests Test 02/22/18 05:30 02/23/18 02:30 02/23/18 02:50 02/23/18 09:04 Blood Urea Nitrogen 29 MG/DL (7-18) 17 MG/DL (7-18) Creatinine 4.07 MG/DL (0.60-1.30) 2.98 MG/DL (0.60-1.30) Random Glucose 110 MG/DL (74-106) 145 MG/DL (74-106) Albumin 1.6 GM/DL (3.4-5.0) Calcium Level 7.9 MG/DL (8.5-10.1) 7.3 MG/DL (8.5-10.1) Phosphorus Level 2.5 MG/DL (2.5-4.9) Sodium Level 131 MEQ/L (136-145) 135 MEQ/L (136-145) Potassium Level 4.0 MEQ/L (3.5-5.1) 3.7 MEQ/L (3.5-5.1) Chloride Level 95 MEQ/L (98-107) 98 MEQ/L (98-107) Carbon Dioxide Level 26.1 MEQ/L (21.0-32.0) 28.8 MEQ/L (21.0-32.0) Anion Gap 10 MEQ/L (5-15) 8 MEQ/L (5-15) Estimat Glomerular Filtration Rate 15 ML/MIN (>89) 22 ML/MIN (>89) Nasal Screen MRSA (PCR) MRSA NOT DETECTED (NOT White Blood Count 7.7 TH/MM3 (4.0-11.0) Red Blood Count 2.51 MIL/MM3 (4.50-5.90) Hemoglobin 7.3 GM/DL (13.0-17.0) Hematocrit 22.2 % (39.0-51.0) Mean Corpuscular Volume 88.4 FL (80.0-100.0) Mean Corpuscular Hemoglobin 29.2 PG (27.0-34.0) Mean Corpuscular Hemoglobin Concent 33.0 % (32.0-36.0) Red Cell Distribution Width 15.4 % (11.6-17.2) Platelet Count 270 TH/MM3 (150-450) Mean Platelet Volume 10.1 FL (7.0-11.0) Neutrophils (%) (Auto) 63.7 % (16.0-70.0) Lymphocytes (%) (Auto) 21.7 % (9.0-44.0) Monocytes (%) (Auto) 11.0 % (0.0-8.0) Eosinophils (%) (Auto) 2.6 % (0.0-4.0) Basophils (%) (Auto) 1.0 % (0.0-2.0) Neutrophils # (Auto) 4.9 TH/MM3 (1.8-7.7) Lymphocytes # (Auto) 1.7 TH/MM3 (1.0-4.8) Monocytes # (Auto) 0.8 TH/MM3 (0-0.9) Eosinophils # (Auto) 0.2 TH/MM3 (0-0.4) Basophils # (Auto) 0.1 TH/MM3 (0-0.2) CBC Comment AUTO DIFF Differential Total Cells Counted 100 Neutrophils % (Manual) 71 % (16-70) Band Neutrophils % 8 % (0-6) Lymphocytes % 17 % (9-44) Monocytes % 2 % (0-8) Basophils % 1 % (0-2) Neutrophils # (Manual) 6.2 TH/MM3 (1.8-7.7) Metamyelocytes 1 % (0-1) Nucleated Red Blood Cells 44 /100 WBC (0-0) Differential Comment FINAL DIFF MANUAL Platelet Estimate NORMAL (NORMAL) Platelet Morphology Comment NORMAL (NORMAL) Basophilic Stippling MOD (NORMAL) Total Protein 7.7 GM/DL (6.4-8.2) Lactic Acid Level 1.7 mmol/L (0.4-2.0) 1.7 mmol/L (0.4-2.0) Protein Corrected Calcium 7.1 MG/DL (8.5-10.1) Test 02/23/18 11:15 02/24/18 06:45 White Blood Count 9.0 TH/MM3 (4.0-11.0) 9.5 TH/MM3 (4.0-11.0) Red Blood Count 2.72 MIL/MM3 (4.50-5.90) 2.75 MIL/MM3 (4.50-5.90) Hemoglobin 7.6 GM/DL (13.0-17.0) 7.9 GM/DL (13.0-17.0) Hematocrit 24.0 % (39.0-51.0) 24.7 % (39.0-51.0) Mean Corpuscular Volume 88.2 FL (80.0-100.0) 89.9 FL (80.0-100.0) Mean Corpuscular Hemoglobin 28.1 PG (27.0-34.0) 28.8 PG (27.0-34.0) Mean Corpuscular Hemoglobin Concent 31.8 % (32.0-36.0) 32.0 % (32.0-36.0) Red Cell Distribution Width 15.9 % (11.6-17.2) 15.8 % (11.6-17.2) Platelet Count 283 TH/MM3 (150-450) 285 TH/MM3 (150-450) Mean Platelet Volume 10.4 FL (7.0-11.0) 10.2 FL (7.0-11.0) Neutrophils (%) (Auto) 63.8 % (16.0-70.0) 63.9 % (16.0-70.0) Lymphocytes (%) (Auto) 21.9 % (9.0-44.0) 21.8 % (9.0-44.0) Monocytes (%) (Auto) 10.6 % (0.0-8.0) 10.4 % (0.0-8.0) Eosinophils (%) (Auto) 2.6 % (0.0-4.0) 3.2 % (0.0-4.0) Basophils (%) (Auto) 1.1 % (0.0-2.0) 0.7 % (0.0-2.0) Neutrophils # (Auto) 5.7 TH/MM3 (1.8-7.7) 6.1 TH/MM3 (1.8-7.7) Lymphocytes # (Auto) 2.0 TH/MM3 (1.0-4.8) 2.1 TH/MM3 (1.0-4.8) Monocytes # (Auto) 1.0 TH/MM3 (0-0.9) 1.0 TH/MM3 (0-0.9) Eosinophils # (Auto) 0.2 TH/MM3 (0-0.4) 0.3 TH/MM3 (0-0.4) Basophils # (Auto) 0.1 TH/MM3 (0-0.2) 0.1 TH/MM3 (0-0.2) CBC Comment AUTO DIFF AUTO DIFF Differential Total Cells Counted 100 100 Neutrophils % (Manual) 70 % (16-70) 72 % (16-70) Band Neutrophils % 6 % (0-6) 4 % (0-6) Lymphocytes % 12 % (9-44) 13 % (9-44) Monocytes % 6 % (0-8) 4 % (0-8) Eosinophils % 3 % (0-4) 5 % (0-4) Neutrophils # (Manual) 7.1 TH/MM3 (1.8-7.7) 7.4 TH/MM3 (1.8-7.7) Myelocytes 3 % (0-0) 2 % (0-0) Nucleated Red Blood Cells 35 /100 WBC (0-0) 14 /100 WBC (0-0) Differential Comment FINAL DIFF MANUAL FINAL DIFF MANUAL Platelet Estimate NORMAL (NORMAL) NORMAL (NORMAL) Platelet Morphology Comment ENLARGED (NORMAL) NORMAL (NORMAL) Target Cells 1+ (NORMAL) 2+ (NORMAL) Red Cell Morphology Comment (NORMAL) (NORMAL) Blood Urea Nitrogen 16 MG/DL (7-18) 20 MG/DL (7-18) Creatinine 2.94 MG/DL (0.60-1.30) 3.55 MG/DL (0.60-1.30) Random Glucose 156 MG/DL (74-106) 189 MG/DL (74-106) Total Protein 7.6 GM/DL (6.4-8.2) 7.6 GM/DL (6.4-8.2) Albumin 1.7 GM/DL (3.4-5.0) 1.6 GM/DL (3.4-5.0) Calcium Level 7.6 MG/DL (8.5-10.1) 7.5 MG/DL (8.5-10.1) Magnesium Level 2.1 MG/DL (1.5-2.5) 2.1 MG/DL (1.5-2.5) Alkaline Phosphatase 422 U/L (45-117) 395 U/L (45-117) Aspartate Amino Transf (AST/SGOT) 114 U/L (15-37) 104 U/L (15-37) Alanine Aminotransferase (ALT/SGPT) 14 U/L (12-78) 9 U/L (12-78) Total Bilirubin 0.4 MG/DL (0.2-1.0) 0.4 MG/DL (0.2-1.0) Sodium Level 134 MEQ/L (136-145) 133 MEQ/L (136-145) Potassium Level 3.5 MEQ/L (3.5-5.1) 3.8 MEQ/L (3.5-5.1) Chloride Level 99 MEQ/L (98-107) 99 MEQ/L (98-107) Carbon Dioxide Level 25.1 MEQ/L (21.0-32.0) 23.5 MEQ/L (21.0-32.0) Anion Gap 10 MEQ/L (5-15) 11 MEQ/L (5-15) Estimat Glomerular Filtration Rate 22 ML/MIN (>89) 18 ML/MIN (>89) Polychromasia 2.5 % (0.0-1.9) Basophilic Stippling FAINT (NORMAL) Phosphorus Level 3.2 MG/DL (2.5-4.9) Result Diagram: 02/24/1845 02/24/1845 Microbiology Microbiology Date/Time Source Procedure Growth Status 02/23/18 19:27 Blood Peripheral Aerobic Blood Culture Pending Received 02/23/18 19:27 Blood Peripheral Anaerobic Blood Culture Pending Received 02/23/18 19:20 Blood Peripheral Aerobic Blood Culture Pending Received 02/23/18 19:20 Blood Peripheral Anaerobic Blood Culture Pending Received Imaging Last Impressions Abdomen/Pelvis CT 02/23/18 194 Signed Impressions: CONCLUSION: 1. Worsening moderate bilateral pleural effusions, severe anasarca and mild as cites compared with February 17. 2. Stable pericholecystic fluid and gallbladder wall thickening probably relat ed to anasarca. 3. Stable umbilical hernia. No bowel obstruction or free air. Catheter Placement X-Ray 02/19/18 Signed Impressions: CONCLUSION: Uncomplicated ultrasound and fluoroscopic guided central venous dialysis cathet er placement as above. Renal Ultrasound 02/18/18 Signed Impressions: CONCLUSION: 1. Suspected increased echotexture of the renal parenchyma likely representing medical renal disease. No hydronephrosis is present. 2. There is trace free fluid around the liver. Chest X-Ray 02/17/18 Signed Impressions: CONCLUSION: 1. Cardiomegaly with plain film findings suggesting some degree of vascular co ngestion or volume overload. 2. Left basilar consolidation/effusion. Patient/Family Conference Present at Family Conference: patient at bedside. sister Shilpa over the telephone. Family Conference Time (mins): 45 Issues Discussed: * Palliative care role, purpose, approach * Additional medical, psychosocial, and spiritual history * Patients general health, functional status, and cognitive changes in the months leading up to the current hospitalization * Patient/family understanding of the current medical problems * Patient/family understanding of prognosis * Patients goals of care as best understood from advance directives and/or conversations and/or values * Current medical treatment options and benefits/burdens of those options * Likely scenarios comparing ongoing aggressive care with a transition to comfort measures only * Questions answered to the best of my ability * Palliative care contact information provided Assessment and Plan Disease Oriented Problem List: (1) Acute on chronic renal failure (2) Sepsis (3) Ulcer of left foot due to type 2 diabetes mellitus (4) Chronic disease anemia (5) Pleural effusion Symptom Scale: Pertinent Non-Medical Issues Psychosocial:Pt not . no children. Lives with parents. 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 Spiritual: sabianism, not confucianism Legal: Proxy would be pt's parents. Ethical issues impacting care: none. Important Contacts Lashon [phone] (sister RN) Rosana Yanes [phone] or [phone] (mother) Alexei Yanes [phone] or [phone] (father) has another sister. Prognosis 57 year old with chronic wounds, sepsis, acute on chronic renal failure. Prognosis is guarded. Should he survive current hospitalization, he is a risk for repeated hospitlization for sepsis, renal failure, and general debility. Overall functional level as well as compliance is poor. Code Status: Full Code Plan == Capacity- he is alert, able to tell me time/date/ place. He is able to tell me he has bad feet and bad kidneys. He display at least a basic understanding of his illness. At this time I feel he has capcity to make medical decision. I suspect his mentation can fluctuate. == Code: Full. == Health care decision maker- Not , no children, under Fl statuettes it will be pt's parents who are proxy. He decline signing health care surrogate form today. == goals of treatment: Spoke to patient about his previous and current hospitalizations. Endorsed his current Klebsiella infection, and acute on chronic renal insufficiency. Talk to him about his current sepsis, his requirement for pressors. Spoke about his overall decline, and that I suspect, if he survives current hospitalization, he will come back and forth between the home/care home or the hospital. I told him I agree with head waitress and that overall he will continue to functionally decline. Offered hospice. Spoke about health care surrogates, code status, living calzada and other advance directives (17Min). Goal of care is as follows. * Code status- is full code. He is unsure about peg or trach. * He declines hospice at this time, goals of care is not comfort oriented. * If it gets to the point where he would need chronic dialysis, he wants it. * he declines filling out a health care surrogate form at this point, he knows proxy would be his parents. * he is amenable for me to give his sister a call, who has inquire about his status. I spoke with sister Lashon who is an RN. I went over pt's clinical condition, and discussed his past hospitalization and spoke about his decline . She noted and confirm "He doesn't take care of himself well, and he keeps getting these infections for the past 3 years or so." She inquire about his sepsis, imaging. She would still like to review that with pt's critical care physician. She is very appreciative of call, and she will speak to parents 1st before I speak to them. I let her know about pt's goals of care. She endorse parents goals of care is aggressive in general, and that they place his debility on his recent care home stay. I have encourage open conversation between family members about his overall functional decline. Symptom: Pain- complains mostly of back pain, and not much about his wounds. Dilaudid appears effective. Continue dilaudid. I reviewed with him given his bp, and current goals of care, we cannot liberalize pain control at this time. Pt gets hypotensive from dilaudid. nausea/vomiting- none at this time. Palliative care will continue to follow and make recommendations on symptom management and review goals of treatment as clinical condition evolves. d/w attending physician. Thank you for the opportunity to participate in the care of Mr. Yanes. Attestation To help prompt me to consider important information that might be impacting today's encounter and assessment, information from prior notes written by myself or my colleagues may have been "brought forward" into today's note. My signature on this note, however, is an attestation that I personally performed the exam, history, and/or decision-making noted today, and, unless otherwise indicated, the interactions with patient, family, and staff as well as the review of records all occurred today. I also attest that the listed assessment and stated plan reflect my best clinical judgment today based on the combination of historical information, prior notes, and today's exam/ interactions. When time spent is documented, it refers only to time spent today by the signer, or if indicated, combined time spent today by collaborating physician/nurse practitioner. Lon Darden MD Feb 24, 2018 10:50
[2018-02-24] MEDS: ceFAZolin 1,000 MG/NS 100 ML IV SCH ×4 (10:57→21:33)
[2018-02-24] MEDS: MICAFUNGIN INJ 100 MG in SODIUM CHLORIDE 0.9% INJ 100 ML IV SCH (10:58)
--- NOTE | 2018-02-24 13:00 | HHI.CCPN ---
Subjective Remarks/Hospital Course 57-year-old male with a past medical history significant for bilateral foot cellulitis/abscess with group a strep septicemia (on cefazolin and Flagyl until 02/27/18 per infectious disease), acute kidney injury requiring hemodialysis, C. difficile, hepatitis C, anemia, diabetes mellitus, schizophrenia and hypertension has been admitted for the evaluation of abnormal labs. The patient currently resides in a retirement and had routine labs done showing anemia, worsening renal function and hyponatremia. The patient complains only of being very tired. He denies any dizziness or loss of consciousness. He was admitted to [facility] floor where he developed profound hypotension refractory to IV fluid bolus. He is admitted to ICU for aggressive IV fluid resuscitation and vasopressors treatment. A wound culture was obtained from the left foot ulcer is now reported as growing Klebsiella ESBL positive. Patient also had an abnormal urinalysis when he came in, and the urine culture is now reported as growing Kirstin glabrata. Subjective: 02/23: Afebrile. Patient sitting up in bed in no acute distress, responding to questions appropriately patient on third liter of IV fluid and remains on norepinephrine currently at 2 mics/minute. Patient's urine culture resulted Kirstin glabrata, however only 50,000 CFU but will initiate micafungin secondary to continued hypotension. Patient's midodrine was increased to 10 mg 3 times daily. Patient was noted to have low calcium level today which has been repleted. Electrolyte and CBC panel pending. 02/24: Last evening the patient complained of severe abdominal pain. CT of the abdomen and pelvis was performed, it showed pericholecystic fluid and gallbladder wall thickening. The patient continues to have abdominal pain the patient has been maintained on an n.p.o. status. HIDA scan pending. GI has been consulted. Patient's hemoglobin 7.9, continues to be hypotensive the patient has been typed and screened plan for transfusion of 1 unit of packed red blood cell. Patient continues on Levophed for vasopressor support. Palliative care was consulted to define goals of care, patient does not want hospice at this time. Objective Vital Signs Date Time Temp Pulse Resp B/P (MAP) Pulse Ox O2 Delivery O2 Flow Rate FiO2 02/24/18 10:00 81 02/24/18 08:40 19 02/24/18 08:12 97/51 02/24/18 08:00 96.3 94 02/24/18 07:00 Nasal Cannula 4.00 02/21/18 20:30 21 Intake and Output 02/24/18 02/24/18 02/25/18 08:00 16:00 00:00 Output Total 0 ml Balance 0 ml Result Diagram: 02/24/18 0645 02/24/18 0645 Objective Remarks GENERAL: Well-nourished, well-developed patient sitting up in bed, pale with c/ o abdominal pain this am SKIN: Warm and dry. HEAD: Normocephalic. EYES: No scleral icterus. No injection or drainage. NECK: Supple, trachea midline. No JVD or lymphadenopathy. CARDIOVASCULAR: Regular rate and rhythm without murmurs, gallops, or rubs. RESPIRATORY: Breath sounds equal bilaterally. No accessory muscle use. GASTROINTESTINAL: Abdomen soft, nondistended. MUSCULOSKELETAL: No cyanosis, or edema. Has ulcers both plantar aspect of feet, clean, with red tissue, no necrotic tissue, no purulence, no periwound erythema. Bilateral dressings on feet C/D I BACK: Nontender without obvious deformity. NEURO EXAM: GCS: 15 Mental Status: The patient is alert and oriented to person, place, and time with normal speech. Cranial Nerves: Visual acuity intact bilaterally. Visual coulter normal in all quadrants. Pupils are round, reactive to light. Extraocular movements are intact without ptosis. Hearing is normal bilaterally. Voice is normal. Tongue protrudes midline and moves symmetrically. GCS 15 A/P Assessment and Plan Group A Strep sepsis from foot infection -Antibiotics per ID -Reculture if indicated Septic shock -Begin gentle hydration NS 30cchr -Levophed as needed to keep MAP above 65 -Telemetry -IV antibiotics -Kirstin glabrata- 50,00 CFU, but will initiate micafungin (02/23) Anemia -02/24 type and screen -Transfuse 1 unit PRBC -Follow-up posttransfusion CBC Abdominal pain -02/23 CT abdomen and pelvis- stable pericholecystic fluid and gallbladder wall thickening Stable umbilical hernia -Patient remains n.p.o. -Obtain HIDA scan -Scheduled sennosides twice daily -Bowel regimen -Hepatitis C IgG Ab positive GI has been consulted End-stage renal disease -Hemodialysis per nephrology -02/24 Bladder scan revealed > 200cc urine. Chirinos inserted, maintain for strict I &O's, discussed with Nephrology Ms. Sangita Schizophrenia - Continue home dosing of Thorazine Diabetes mellitus - Maintain NPO for now , will resume 1800 ADA diet when indicated -Insulin sliding scale DVT GI prophylaxis -Jad's and SCDs -Subcu heparin -Pepcid Critical Care: my billing statement This patient remains critically ill with one or more organ systems which are or may become a threat to life. I have spent in excess of 30 minutes discontinuously in the care and management of this patient. This time is exclusive of procedures, and includes, but is not limited to, evaluation of the patient, review of the medical record, discussions with family, consultants, nursing staff, or respiratory therapy, and documentation in the medical record. D/W Nephrology Laura LOPEZ, Palliative Care Dr. Darden I telephone Maryuri Yanes, the patient's sister [phone], unable to each to provide update. Patient's mother at bedside, I discussed patient's medical status and provided update. All questions answered. Physician Maddi Lewis MD Feb 24, 2018 13:00
--- NOTE | 2018-02-24 13:03 | HHI.IDPN ---
Note Infectious Disease Note Infectious disease follow-up. Patient seen in intensive care unit. Transferred to intensive care unit because of hypotension. Currently on Levophed 14 mcg. Systolic blood pressure 98. Awake but lethargic. Notes that he has pain in his back. Denies abdomen pain. CT scan of the abdomen shows pericholecystic fluid and gallbladder wall thickening. Patient is due to go for HIDA scan. Afebrile. Is a 57-year-old male, [facility], brought into the hospital for abnormal routine labs showing anemia, hyponatremia, and worsening renal function. Patient was hospitalized last month and at that time he had group A strep septicemia as well as bilateral foot ulcers with infection. During that hospitalization he also had acute kidney injury and it improved but not to normal limits. Patient was discharged on IV Ancef for his sepsis, with plans to complete treatment on February 27. According to the patient he had a wound VAC to his left foot wound, and on the day he was transferred to the hospital the wound VAC was removed. Antibiotics Cefazolin Daptomycin micafungin Metronidazole Current Medications Medications (Trade) Dose Ordered Sig/Portia Route PRN Reason Start Time Stop Time Status Last Admin Dose Admin Sodium Chloride (NS Flush) 2 ml UNSCH PRN IV FLUSH FLUSH AFTER USING IV ACCESS 02/17/18 19:45 Sodium Chloride (NS Flush) 2 ml BID IV FLUSH 02/17/18 21:00 02/24/18 08:10 Acetaminophen (Tylenol) 650 mg Q4H PRN PO TEMP > 100.4 02/17/18 19:45 Metoclopramide HCl (Reglan Inj) 5 mg Q6H PRN IV PUSH NAUSEA OR VOMITING 02/17/18 19:45 Naloxone HCl (Narcan Inj) 0.4 mg UNSCH PRN IV PUSH SEE LABEL COMMENTS 02/17/18 19:45 Magnesium Hydroxide (Milk Of Magnesia Liq) 30 ml Q12H PRN PO Mild constipation 02/17/18 19:45 Bisacodyl (Dulcolax Supp) 10 mg DAILY PRN RECTAL SEVERE CONSITIPATION 02/17/18 19:45 Lactulose (Lactulose Liq) 30 ml DAILY PRN PO SEVERE CONSITIPATION 02/17/18 19:45 Amlodipine Besylate (Norvasc) 10 mg DAILY PO 02/18/18 09:00 Future Hold 02/19/18 08:47 Ferrous Sulfate (Ferrous Sulfate) 325 mg DAILY PO 02/18/18 09:00 02/24/18 08:08 Acetaminophen/ Hydrocodone Bitart ([place] 10-325 Mg) 1 tab BID PRN PO PAIN SCALE 1 TO 10 02/17/18 20:00 02/23/18 17:55 Hydroxyzine Pamoate (Vistaril) 50 mg BID PO 02/17/18 21:00 02/24/18 08:09 Metronidazole (Flagyl) 500 mg Q8HR PO 02/17/18 22:00 02/24/18 05:44 Heparin Sodium (Porcine) (Heparin Central Flush) 500 unit Q12HR IV FLUSH 02/17/18 21:00 02/24/18 08:19 Dextrose (D50w (Vial) Inj) 50 ml UNSCH PRN IV PUSH HYPOGLYCEMIA-SEE COMMENTS 02/17/18 20:30 Glucagon (Glucagon Inj) 1 mg UNSCH PRN OTHER HYPOGLYCEMIA-SEE COMMENTS 02/17/18 20:30 Insulin Aspart (NovoLOG SUPPLEMENTAL SCALE) 1 ACHS SLIDING SCALE SQ 02/17/18 21:00 02/23/18 17:54 Cefazolin Sodium 1000 mg/Sodium Chloride 100 ml @ 200 mls/hr Q12H IV 02/17/18 22:00 02/27/18 23:00 02/24/18 10:57 Thioridazine HCl (Mellaril) 200 mg DAILY PO 02/18/18 09:00 02/24/18 08:09 Sodium Chloride 1,000 ml @ 0 mls/hr Q0M PRN OTHER For Prime & Rinse Back 02/19/18 09:35 Heparin Sodium (Porcine) (Heparin Inj) 8,000 units UNSCH PRN IV FLUSH WITH DIALYSIS 02/19/18 09:45 02/22/18 12:40 Sodium Chloride 1,000 ml @ 200 mls/hr Q5H PRN IV WITH DIALYSIS 02/19/18 09:35 Sodium Chloride 1,000 ml @ 0 mls/hr Q0M PRN OTHER WITH DIALYSIS 02/19/18 09:35 Mannitol (Mannitol Inj) 12.5 gm UNSCH PRN IV WITH DIALYSIS 02/19/18 09:45 Albumin Human 100 ml @ 60 mls/hr UNSCH PRN IV WITH DIALYSIS 02/19/18 09:45 02/20/18 14:38 Sodium Chloride (NS Flush) 5 ml UNSCH PRN IV FLUSH WITH DIALYSIS 02/19/18 09:45 Heparin Sodium (Porcine) (Heparin Inj) UNSCH PRN .XX WITH DIALYSIS 02/19/18 09:45 Gentamicin Sulfate (Gentamicin Inj) 20 mg UNSCH PRN OTHER WITH DIALYSIS 02/19/18 09:45 02/22/18 12:40 Ondansetron HCl (Zofran Odt) 4 mg UNSCH PRN PO WITH DIALYSIS 02/19/18 09:45 Acetaminophen (Tylenol) 650 mg UNSCH PRN PO for headach, pain, temp > 101F 02/19/18 09:45 Diphenhydramine HCl (Benadryl) 25 mg UNSCH PRN PO for hives/itching/anaphylaxis 02/19/18 09:45 Nitroglycerin (Nitrostat Sl) 0.4 mg UNSCH PRN SL CHEST PAIN 02/19/18 09:45 Clonidine (Catapres) 0.1 mg UNSCH PRN PO for BP > 180/100 X 2 readings 02/19/18 09:45 Epoetin Sloan (Epogen Inj) 10,000 units UNSCH PRN IV PUSH WITH DIALYSIS 02/19/18 09:45 02/22/18 12:40 Gelatin (Gelfoam 12 Mm/7 Mm Top) 1 foam UNSCH PRN TOP SEE LABEL COMMENTS 02/19/18 09:45 Sodium Chloride (NS Flush) UNSCH PRN IV FLUSH SEE PROTOCOL 02/19/18 13:15 Heparin Sodium (Porcine) (Heparin Inj) UNSCH PRN IV FLUSH SEE PROTOCOL 02/19/18 13:15 Fluconazole (Diflucan) 200 mg DAILY PO 02/21/18 14:30 02/28/18 14:29 02/24/18 08:08 Miscellaneous Information ([facility] Information) Patient in critical care unit? Ass... Q361D .XX 02/23/18 03:00 Chlorhexidine Gluconate (Chlorhexidine 2% Cloth) 3 pack DAILY@04 TOPICAL 02/23/18 04:00 02/27/18 04:01 02/24/18 04:00 Chlorhexidine Gluconate (Chlorhexidine 2% Cloth) 3 pack UNSCH PRN TOPICAL HYGIENIC CARE 02/23/18 03:00 02/28/18 02:47 Norepinephrine Bitartrate 250 ml @ 7.5 mls/hr TITRATE PRN IV Blood pressure management 02/23/18 05:15 02/24/18 08:12 Terbutaline Sulfate (Brethine Inj) 1 mg UNSCH PRN SQ For Extravasation 02/23/18 05:15 Midodrine (Proamatine) 10 mg TID@07,12,17 PO 02/23/18 12:00 02/24/18 12:30 Micafungin Sodium 100 mg/Sodium Chloride 100 ml @ 100 mls/hr Q24H IV 02/23/18 11:00 02/24/18 10:58 Miscellaneous Medication (ASP Crit: Doc ESBL, MDR A baumannii or P aer) 1 UNSCH X1 PRN .XX PHARMACY DOCUMENTATION 02/23/18 19:00 02/24/18 18:59 Miscellaneous Medication ([facility] Information) 1 UNSCH X1 PRN XX PHARMACY DOCUMENTATION 02/23/18 19:00 02/24/18 18:59 Daptomycin 800 mg/ Sodium Chloride 100 ml @ 200 mls/hr Q48H IV 02/23/18 21:00 02/23/18 21:04 Promethazine HCl (Phenergan Inj) 12.5 mg Q6H PRN IV-CENTRAL nausea/vomiting 02/23/18 22:00 02/23/18 21:58 Hydromorphone HCl (Dilaudid Pf Inj) 1 mg Q4H PRN IV PUSH pain 4-10 02/23/18 23:00 Future Hold 02/24/18 08:10 Meropenem 500 mg/ Sodium Chloride 100 ml @ 200 mls/hr Q12HR IV 02/24/18 10:00 02/24/18 10:32 Vasopressin 40 units/Dextrose 100 ml @ 1.5 mls/hr TITRATE PRN IV Blood Pressure Management 02/24/18 09:45 Sennosides (Senokot) 17.2 mg Q12H PO 02/24/18 19:45 UNV Past Medical History Bilateral foot cellulitis/abscess with group a strep septicemia (on cefazolin and Flagyl until 02/27/18 per infectious disease) Acute kidney injury requiring hemodialysis C. 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 Objective Vital Signs Date Time Temp Pulse Resp B/P (MAP) Pulse Ox O2 Delivery O2 Flow Rate FiO2 02/24/18 10:00 81 02/24/18 08:40 19 02/24/18 08:12 81 97/51 02/24/18 08:00 96.3 81 16 97/51 (66) 94 02/24/18 08:00 81 02/24/18 07:00 94 Nasal Cannula 4.00 02/24/18 06:00 82 02/24/18 04:00 98.1 80 15 100/51 (67) 96 02/24/18 04:00 80 02/24/18 02:00 79 02/24/18 00:00 98.6 75 16 92/50 (64) 98 02/24/18 00:00 75 02/23/18 23:46 76 92/47 02/23/18 22:00 80 02/23/18 21:04 80 88/51 02/23/18 20:00 98.2 81 26 91/49 (63) 93 02/23/18 20:00 81 02/23/18 19:56 92 Nasal Cannula 2.00 02/23/18 19:00 93 Nasal Cannula 4.00 02/23/18 19:00 98 Nasal Cannula 4.00 02/23/18 18:55 16 02/23/18 18:32 83 85/43 02/23/18 18:00 82 02/23/18 16:00 98.8 80 17 86/50 (62) 89 02/23/18 16:00 80 02/23/18 14:00 79 Laboratory Tests Test 02/24/18 06:45 White Blood Count 9.5 TH/MM3 Red Blood Count 2.75 MIL/MM3 Hemoglobin 7.9 GM/DL Hematocrit 24.7 % Mean Corpuscular Volume 89.9 FL Mean Corpuscular Hemoglobin 28.8 PG Mean Corpuscular Hemoglobin Concent 32.0 % Red Cell Distribution Width 15.8 % Platelet Count 285 TH/MM3 Mean Platelet Volume 10.2 FL Neutrophils (%) (Auto) 63.9 % Lymphocytes (%) (Auto) 21.8 % Monocytes (%) (Auto) 10.4 % Eosinophils (%) (Auto) 3.2 % Basophils (%) (Auto) 0.7 % Neutrophils # (Auto) 6.1 TH/MM3 Lymphocytes # (Auto) 2.1 TH/MM3 Monocytes # (Auto) 1.0 TH/MM3 Eosinophils # (Auto) 0.3 TH/MM3 Basophils # (Auto) 0.1 TH/MM3 CBC Comment AUTO DIFF Differential Total Cells Counted 100 Neutrophils % (Manual) 72 % Band Neutrophils % 4 % Lymphocytes % 13 % Monocytes % 4 % Eosinophils % 5 % Neutrophils # (Manual) 7.4 TH/MM3 Myelocytes 2 % Nucleated Red Blood Cells 14 /100 WBC Differential Comment FINAL DIFF MANUAL Platelet Estimate NORMAL Platelet Morphology Comment NORMAL Polychromasia 2.5 % Basophilic Stippling FAINT Target Cells 2+ Red Cell Morphology Comment Blood Urea Nitrogen 20 MG/DL Creatinine 3.55 MG/DL Random Glucose 189 MG/DL Total Protein 7.6 GM/DL Albumin 1.6 GM/DL Calcium Level 7.5 MG/DL Phosphorus Level 3.2 MG/DL Magnesium Level 2.1 MG/DL Alkaline Phosphatase 395 U/L Aspartate Amino Transf (AST/SGOT) 104 U/L Alanine Aminotransferase (ALT/SGPT) 9 U/L Total Bilirubin 0.4 MG/DL Sodium Level 133 MEQ/L Potassium Level 3.8 MEQ/L Chloride Level 99 MEQ/L Carbon Dioxide Level 23.5 MEQ/L Anion Gap 11 MEQ/L Estimat Glomerular Filtration Rate 18 ML/MIN Abdomen/Pelvis CT 02/23/18 194 Signed Impressions: CONCLUSION: 1. Worsening moderate bilateral pleural effusions, severe anasarca and mild as cites compared with February 17. 2. Stable pericholecystic fluid and gallbladder wall thickening probably relat ed to anasarca. 3. Stable umbilical hernia. No bowel obstruction or free air. Catheter Placement X-Ray 6/6/18 0000 Signed Impressions: CONCLUSION: Uncomplicated ultrasound and fluoroscopic guided central venous dialysis cathet er placement as above. Renal Ultrasound 02/18/18 Signed Impressions: CONCLUSION: 1. Suspected increased echotexture of the renal parenchyma likely representing medical renal disease. No hydronephrosis is present. 2. There is trace free fluid around the liver. Chest X-Ray 02/17/18 Signed Impressions: CONCLUSION: 1. Cardiomegaly with plain film findings suggesting some degree of vascular co ngestion or volume overload. 2. Left basilar consolidation/effusion. Physical Exam GENERAL: Awake but lethargic. No acute distress. HEENT: Pupils reactive to light. No icterus. Extraocular movements intact. Slightly dry oral mucosa. NECK: Supple without adenopathy or swelling. LUNGS: Clear to auscultation. HEART: Irregular S1 and S2. No murmurs or rubs or gallops. ABDOMEN: Distended, firm, increased bowel sounds. No tenderness appreciated. EXTREMITIES: No clubbing or cyanosis. Both feet are wrapped in dressings. No significant drainage visible. SKIN: No rash. NEUROLOGIC: No gross focal finding. PSYCH: Calm and cooperative. LINE: No evidence of infection, Dc on the right chest and right IJ Vas- Cath IMPRESSION Group A Strep sepsis from foot infection, better Treatment is due to be completed on February 27. (+) wound C/S with Kleb ESBL+ - colonization, wound looks clean and no evidence of infection Renal failure, on HD Hx C diff colitis New sepsis ? acute cholecystitis -abnormal CT scan. ? colitis ( c.diff recently) abnormal LFTs. RECOMMENDATION Complete treatment for osteomyelitis with Ancef till February 27. Continue Meropenem Continue daptomycin Continue micafungin. Monitor blood cultures. Monitor HIDA scan. Sen Washington MD Feb 24, 2018 13:03
[2018-02-24 13:18] LABS: BACTERIA, URINE MOD /hpf; BILIRUBIN, URINE NEG (NEG); BLOOD, URINE LARGE (NEG); GLUCOSE,URINE NEG (NEG); HYALINE CAST, URINE 54 /lpf (RARE); KETONE, URINE TRACE mg/dL (NEG); MUCUS URINE MANY /lpf (OCC); NITRITE,URINE NEG (NEG); PH, URINE 5.5 (5.0-8.5); SQUAMOUS EPITHELIAL CELL URINE 8 /hpf (0-5); URINE LEUKOCYTE ESTERASE LARGE (NEG); WHITE BLOOD CELL CAST, URINE 18 /lpf; WHITE BLOOD CELL CLUMPS MANY
[2018-02-24 13:19] LABS: URINE COLOR DARK-BROWN (YELLW/STRAW)
[2018-02-24] MEDS: SODIUM CHLOR 0.9% 1000 ML INJ 1,000 ML IV SCH (16:20)
--- NOTE | 2018-02-24 17:20 | PD.CONS ---
HPI History of Present Illness This is a 57 year old M with PMH significant for bilateral foot cellulitis with grou A septicepima, BISHOP on HD, history of C. Diff, Hepatitis C with no detectable quant, anemia, DM, schizophrenia, HTN, and cirrhosis who presented to the ER seven days ago for evaluation of abnormal labs. Pt is currently in a rehab facility after recent hospital admission and was sent due to anemia, worsening renal function and hyponatremia. Our service has been consulted to evaluate pt for abdominal pain. Pt is a poor historian. During my exam he points to both flanks and states he has abdominal pain that radiates around to his back on both sides. He thinks the pain is related to his abdominal swelling with no recent paracentesis. Denies nausea, vomiting, acid reflux, heartburn. He is unable to provide history regarding BMs, one BM documented from yesterday in the chart. Pt was seen by our service during previous admission as well as prior admission for elevated LFTs. Previous work up in assessment and plan. Pt has also had an EGD and colonoscopy by our service in February 2017 --> Significant amount of stool present throughout entire examined colon, incomplete study secondary to poor prep. Normal esophagus, food residue in the entire examined stomach, medium sized ulcer in the gastric antrum. (Skylar Sykes) PFSH Past Medical History bilateral foot cellulitis/abscess with group a strep septicemia (on cefazolin and Flagyl until 02/27/18 per infectious disease), acute kidney injury requiring hemodialysis, C. difficile, hepatitis C, anemia, diabetes mellitus, schizophrenia and hypertension Past Surgical History Incision and drainage both feet (Skylar Sykes) Coded Allergies: haloperidol (Verified Allergy, Severe, BLINDNESS, 01/14/18) vancomycin (Verified Allergy, Severe, 01/14/18) levofloxacin (Verified Allergy, Intermediate, Cramping, 01/14/18) fluphenazine (Verified Allergy, Unknown, "PAR[employer]INSON[place] SHACKS", 01/14/18) codeine (Verified Adverse Reaction, Mild, 01/14/18) "makes me feel funny" but feels ok taking Adrian's *MDRO Multi-Drug Resistant Organism (Verified Adverse Reaction, Unknown, VRE, 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 Family History Father in his 80's have cardiac problems Afib. Mother, per patient is well. Social History Quit alcohol on 01/14/18. Reports drinking 2 beers daily prior to this. Denies tobacco and illicit drugs. (Skylar Sykes) Review of Systems Gastrointestinal: COMPLAINS OF: Abdominal pain, Swelling of Abdomen, DENIES: Black stools, Bloody stools, Constipation, Diarrhea, Nausea, Vomiting, Difficulty Swallowing, Odynophagia, Heartburn, Hematemesis (Skylar Sykes ) GI Exam Vitals I&O Vital Signs Date Time Temp Pulse Resp B/P (MAP) Pulse Ox O2 Delivery O2 Flow Rate FiO2 02/24/18 16:48 96.5 86 11 102/49 91 02/24/18 16:34 96.6 86 10 95/47 92 02/24/18 12:00 96.4 85 13 100/52 (68) 93 02/24/18 12:00 86 02/24/18 10:00 81 02/24/18 08:40 19 02/24/18 08:12 81 97/51 02/24/18 08:00 96.3 81 16 97/51 (66) 94 02/24/18 08:00 81 02/24/18 07:00 94 Nasal Cannula 4.00 02/24/18 06:00 82 02/24/18 04:00 98.1 80 15 100/51 (67) 96 02/24/18 04:00 80 02/24/18 02:00 79 02/24/18 00:00 98.6 75 16 92/50 (64) 98 02/24/18 00:00 75 02/23/18 23:46 76 92/47 02/23/18 22:00 80 02/23/18 21:04 80 88/51 02/23/18 20:00 98.2 81 26 91/49 (63) 93 02/23/18 20:00 81 02/23/18 19:56 92 Nasal Cannula 2.00 02/23/18 19:00 93 Nasal Cannula 4.00 02/23/18 19:00 98 Nasal Cannula 4.00 02/23/18 18:55 16 02/23/18 18:32 83 85/43 02/23/18 18:00 82 I/O 6/10/18 602/23/18 02/24/18 02/24/18 02/24/18 07:00 15:00 23:00 07:00 15:00 23:00 Intake Total 4465 ml 800 ml 200 ml 798 ml 25 ml Output Total 0 ml 0 ml Balance 4465 ml 800 ml 200 ml 798 ml 25 ml Intake Oral 700 ml IV Total 4465 ml 100 ml 200 ml 798 ml Blood Product IV Normal Saline Flush 25 ml Output Urine Total 0 ml 0 ml Bladder Scan Volume Amount 475 ml # Voids 0 0 # Bowel Movements 1 0 0 Imaging Last Impressions Abdomen/Pelvis CT 02/23/181945 Signed Impressions: CONCLUSION: 1. Worsening moderate bilateral pleural effusions, severe anasarca and mild as cites compared with February 17. 2. Stable pericholecystic fluid and gallbladder wall thickening probably relat ed to anasarca. 3. Stable umbilical hernia. No bowel obstruction or free air. Catheter Placement X-Ray 02/19/18 Signed Impressions: CONCLUSION: Uncomplicated ultrasound and fluoroscopic guided central venous dialysis cathet er placement as above. Renal Ultrasound 02/18/18 Signed Impressions: CONCLUSION: 1. Suspected increased echotexture of the renal parenchyma likely representing medical renal disease. No hydronephrosis is present. 2. There is trace free fluid around the liver. Chest X-Ray 02/17/18 Signed Impressions: CONCLUSION: 1. Cardiomegaly with plain film findings suggesting some degree of vascular co ngestion or volume overload. 2. Left basilar consolidation/effusion. Laboratory Test 02/24/18 06:45 02/24/18 12:35 White Blood Count 9.5 TH/MM3 Red Blood Count 2.75 MIL/MM3 Hemoglobin 7.9 GM/DL Hematocrit 24.7 % Mean Corpuscular Volume 89.9 FL Mean Corpuscular Hemoglobin 28.8 PG Mean Corpuscular Hemoglobin Concent 32.0 % Red Cell Distribution Width 15.8 % Platelet Count 285 TH/MM3 Mean Platelet Volume 10.2 FL Neutrophils (%) (Auto) 63.9 % Lymphocytes (%) (Auto) 21.8 % Monocytes (%) (Auto) 10.4 % Eosinophils (%) (Auto) 3.2 % Basophils (%) (Auto) 0.7 % Neutrophils # (Auto) 6.1 TH/MM3 Lymphocytes # (Auto) 2.1 TH/MM3 Monocytes # (Auto) 1.0 TH/MM3 Eosinophils # (Auto) 0.3 TH/MM3 Basophils # (Auto) 0.1 TH/MM3 CBC Comment AUTO DIFF Differential Total Cells Counted 100 Neutrophils % (Manual) 72 % Band Neutrophils % 4 % Lymphocytes % 13 % Monocytes % 4 % Eosinophils % 5 % Neutrophils # (Manual) 7.4 TH/MM3 Myelocytes 2 % Nucleated Red Blood Cells 14 /100 WBC Differential Comment FINAL DIFF MANUAL Platelet Estimate NORMAL Platelet Morphology Comment NORMAL Polychromasia 2.5 % Basophilic Stippling FAINT Target Cells 2+ Red Cell Morphology Comment Blood Urea Nitrogen 20 MG/DL Creatinine 3.55 MG/DL Random Glucose 189 MG/DL Total Protein 7.6 GM/DL Albumin 1.6 GM/DL Calcium Level 7.5 MG/DL Phosphorus Level 3.2 MG/DL Magnesium Level 2.1 MG/DL Alkaline Phosphatase 395 U/L Aspartate Amino Transf (AST/SGOT) 104 U/L Alanine Aminotransferase (ALT/SGPT) 9 U/L Total Bilirubin 0.4 MG/DL Sodium Level 133 MEQ/L Potassium Level 3.8 MEQ/L Chloride Level 99 MEQ/L Carbon Dioxide Level 23.5 MEQ/L Anion Gap 11 MEQ/L Estimat Glomerular Filtration Rate 18 ML/MIN Urine Color DARK-BROWN Urine Turbidity CLOUDY Urine pH 5.5 Urine Specific Outlook 1.025 Urine Protein 100 mg/dL Urine Glucose (UA) NEG mg/dL Urine Ketones TRACE mg/dL Urine Occult Blood LARGE Urine Nitrite NEG Urine Bilirubin NEG Urine Urobilinogen LESS THAN 2.0 MG/DL Urine Leukocyte Esterase LARGE Urine RBC 142 /hpf Urine WBC /hpf Urine WBC Clumps MANY Urine Squamous Epithelial Cells 8 /hpf Urine Bacteria MOD /hpf Urine Hyaline Casts 54 /lpf Urine Granular Casts 18 /lpf Urine White Blood Cell Casts 18 /lpf Urine Mucus MANY /lpf Urine Yeast (Budding) FEW Microscopic Urinalysis Comment CATH-CULTURE IND Date/Time Source Procedure Growth Status 02/23/18 19:27 Blood Peripheral Aerobic Blood Culture - Preliminary NO GROWTH IN 1 DAY Resulted 02/23/18 19:27 Blood Peripheral Anaerobic Blood Culture - Preliminary NO GROWTH IN 1 DAY Resulted 02/24/18 12:35 Urine Catheterized Urine Urine Culture Pending Received 02/18/18 11:00 Wound Foot Gram Stain - Final Complete 02/18/18 11:00 Wound Culture - Final Klebsiella Pneumoniae Esbl Pos Complete Physical Examination HEENT: Normocephalic; atraumatic CHEST: Even/unlabored CARDIAC: RRR ABDOMEN: Obese, distended, umbilical hernia, nontender, bowel sounds active SKIN: Normal; no rash; no jaundice. 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 Also complaining of abdominal swelling, states he feels the fluid is so high that it is up to his throat. Denies nausea, vomiting. Can not recall BMs, one documented in chart yesterday. Recent C Diff in January. EGD and colonoscopy by our service in February 2017 --> Significant amount of stool present throughout entire examined colon, incomplete study secondary to poor prep. Normal esophagus, food residue in the entire examined stomach, medium sized ulcer in the gastric antrum. CT abdomen and pelvis WO IV contrast (02/23) Worsening moderate bilateral pleural effusions, severe anasarca and mild ascites compared with February 17. Stable pericholecystic fluid and gallbladder wall thickening probably related to anasarca. Stable umbilical hernia. No bowel obstruction or free air. - Elevated LFTs- was previously drinking daily prior to recent admission and discharge and is currently in rehab facility Previous liver work up: Hepatitis C antibody positive, but genotype and quant undetectable AAT-245 Ceruloplasmin-43 VICKIE positive, titer 1:320 Pattern Nucleolar AMA less than 20 AMA negative Ferritin-2320 Iron-63 TIBC-64 %sat-97.8 Plan: US with paracentesis if enough fluid to drain HIDA scan per attending Monitor labs Continue with current supportive care Further recommendations to follow based on results of above and clinical course Pt has been seen and examined by myself and Dr. Rajput and this note is written on his behalf (Skylar Sykes) Physician Comments Seen and examined, plan as above. Will check for HFE gene to role hemochromatosis . And follow plan as above. Thank you for the consult. (Wali Rajput MD) Skylar Sykes Feb 24, 2018 17:20 Wali Rajput MD Feb 24, 2018 17:40
[2018-02-24 18:58] LABS: INTERNATIONAL NORMALIZED RATIO 2.1 RATIO; PROTHROMBIN TIME - PATIENT 21.2 SEC (9.8-11.6)
[2018-02-24 20:15] LABS: HEMATOCRIT 26.2 % (39.0-51.0); HEMOGLOBIN 8.5 GM/DL (13.0-17.0)
[2018-02-24] MEDS: SENNOSIDES 8.6 MG TAB PO SCH (20:33)
[2018-02-24] MEDS: PROMETHAZINE INJ 25 MG/ML VIAL IV-CENTRAL PRN (22:16)
[2018-02-25] VITALS (18 sets, daily range): BP systolic 86–99; BP diastolic 46–55; PULSE 81–91; RESP 16–23; TEMP 97.1–97.7; O2SAT 91–100
[2018-02-25] MEDS: NOREPINEPHRINE-DEXTROSE DRIP 250 ML IV PRN ×3 (02:44→19:56)
[2018-02-25] MEDS: CHLORHEXIDINE GLUCONATE 2 % 1 PACK (2 CLOTHS)(taper/protocol) TOPICAL SCH (04:00)
[2018-02-25] MEDS: metroNIDAZOLE 500 MG TAB PO SCH ×4 (05:51→22:00)
[2018-02-25] MEDS: MIDODRINE 5 MG TAB PO SCH ×3 (05:51→17:00)
[2018-02-25 06:24] LABS: INTERNATIONAL NORMALIZED RATIO 2.3 RATIO; PROTHROMBIN TIME - PATIENT 22.8 SEC (9.8-11.6)
[2018-02-25 06:27] LABS: ALBUMIN 1.8 GM/DL (3.4-5.0); AST (GOT) 82 U/L (15-37); BICARBONATE 21.3 MEQ/L (21.0-32.0); BLOOD UREA NITROGEN 25 MG/DL (7-18); CALCIUM 7.5 MG/DL (8.5-10.1); CHLORIDE 96 MEQ/L (98-107); CREATININE 4.15 MG/DL (0.60-1.30); GLOMERULAR FILTRATION RATE 15 ML/MIN (>89); GLUCOSE,RANDOM 191 MG/DL (74-106); MAGNESIUM 2.1 MG/DL (1.5-2.5); SODIUM (NA) 131 MEQ/L (136-145)
[2018-02-25 06:32] LABS: ALKALINE PHOSPHATASE 424 U/L (45-117); ALT (GPT) 11 U/L (12-78); TOTAL BILIRUBIN ADULT 0.6 MG/DL (0.2-1.0); TOTAL PROTEIN 7.8 GM/DL (6.4-8.2)
[2018-02-25 06:42] LABS: AUTOMATED NEUTROPHIL # 8.9 TH/MM3 (1.8-7.7); BASOPHIL # 0.1 TH/MM3 (0-0.2); BASOPHIL % 0.8 % (0.0-2.0); EOSINOPHIL # 0.2 TH/MM3 (0-0.4); EOSINOPHIL % 1.9 % (0.0-4.0); HEMATOCRIT 27.2 % (39.0-51.0); HEMOGLOBIN 8.6 GM/DL (13.0-17.0); LYMPH % 14.8 % (9.0-44.0); LYMPHOCYTE # 1.8 TH/MM3 (1.0-4.8); MEAN CORPUSCULAR HEMOGLOBIN 28.5 PG (27.0-34.0); MEAN CORPUSCULAR HGB CONC 31.7 % (32.0-36.0); MEAN PLATELET VOLUME 10.4 FL (7.0-11.0); MONO % 8.3 % (0.0-8.0); NEUT % 74.2 % (16.0-70.0); PLATELET COUNT 279 TH/MM3 (150-450); RED BLOOD COUNT 3.03 MIL/MM3 (4.50-5.90); RED CELL DISTRIBUTION WIDTH 15.8 % (11.6-17.2)
[2018-02-25] MEDS: SENNOSIDES 8.6 MG TAB PO SCH ×3 (08:00→20:11)
[2018-02-25] MEDS: SODIUM CHLORIDE 0.9% FLUSH 10 ML FLUSH IV FLUSH SCH ×2 (09:00→21:00)
[2018-02-25 09:35] LABS: BANDS 2 % (0-6); BASOPHILS 1 % (0-2); CORRECTED NUCLEATED RBC 8 /100 WBC (0-0); LYMPHOCYTES 4 % (9-44); MONOCYTES 6 % (0-8); MYELOCYTES 1 % (0-0); NEUTROPHIL # MANUAL DIFF 10.4 TH/MM3 (1.8-7.7); NUCLEATED RED BLOOD CELL 8 (0-0); POLYS (SEG NEUTROPHILS) 84 % (16-70)
--- NOTE | 2018-02-25 09:50 | RADRPT ---
EXAM DATE: 02/25/2018 9:34 AM EDT AGE/SEX: 57 years / Male INDICATIONS: Ascites. CLINICAL DATA: This is the patient's initial encounter. Patient reports that signs and symptoms have been present for 1 day and indicates a pain score of 2/10. MEDICAL/SURGICAL HISTORY: Gastroesophageal reflux disease. Arthritis. Diabetes. Diabetic philip ropathy. Hypertension. Sleep apnea. Liver disease. Schizophrenia. PTSD. ETOH abuse. Umbilical hernia. [place] measles. Blood transfusion. MRSA. VRE. C diff. . Bilateral foot surgery. COMPARISON: No prior exams available for comparison. FINDINGS: Masses: None Fluid Collections: Small amount of ascites is noted. Other: Negative. CONCLUSION: 1. Small amount of ascites. 2. Insufficient amount of fluid for paracentesis. Electronically signed by: Niranjan Bee MD 02/25/2018 9:49 AM EDT
[2018-02-25] MEDS: VASOPRESSIN 40 U/D5W 100 ML Titrate, Post Cardiac Surgery IV PRN ×2 (09:53)
--- NOTE | 2018-02-25 10:10 | HHI.NPPN ---
Subjective Renal Failure: Acute Interval History He is on Levophed. Vasopressin ordered and is being started. He is oliguric. Due for HIDA and US for possible paracentesis. He is ill appearing. (Laura Quesada) Review of Systems General Constitutional: Fatigue (Laura Quesada) Gastrointestinal Gastrointestinal: Nausea & Vomiting (Laura Quesada) Objective Data Data Vital Signs Date Time Temp Pulse Resp B/P (MAP) Pulse Ox O2 Delivery O2 Flow Rate FiO2 02/25/18 09:54 83 81/47 02/25/18 09:53 83 81/47 02/25/18 06:00 83 02/25/18 04:00 84 02/25/18 04:00 97.7 84 18 87/52 (64) 94 02/25/18 02:44 84 89/46 02/25/18 02:00 85 02/25/18 00:00 91 02/25/18 00:00 97.7 91 23 99/49 (66) 91 02/24/18 22:00 90 02/24/18 21:00 87 102/53 02/24/18 20:00 94.0 87 21 99/50 (66) 90 02/24/18 20:00 87 02/24/18 19:00 90 Nasal Cannula 5.00 02/24/18 18:00 90 02/24/18 16:48 96.5 86 11 102/49 91 02/24/18 16:34 96.6 86 10 95/47 92 02/24/18 16:00 84 02/24/18 16:00 96.5 84 25 99/57 (71) 95 02/24/18 14:00 85 02/24/18 12:00 96.4 85 13 100/52 (68) 93 02/24/18 12:00 86 (Laura Quesada) -: 02/25/18 0422 02/25/18 0422 Microbiology 02/24/18 Urine Culture, Received Pending Imaging Last 72 hours Impressions Abdomen Ultrasound 02/25/18 0000 Signed Impressions: CONCLUSION: 1. Small amount of ascites. 2. Insufficient amount of fluid for paracentesis. Abdomen/Pelvis CT 02/23/18 194 Signed Impressions: CONCLUSION: 1. Worsening moderate bilateral pleural effusions, severe anasarca and mild as cites compared with February 17. 2. Stable pericholecystic fluid and gallbladder wall thickening probably relat ed to anasarca. 3. Stable umbilical hernia. No bowel obstruction or free air. Tubes & Lines: Vas-Cath, Chirinos Drip Comment Levophed, vasopressin (Laura Quesada) Physical Exam General Appearance: No Acute Distress, Malnourished Appearance Remarks chronically ill appearing (Laura Quesada COTTON STOMPER) Eyes Eye Exam: Pupils Equal, Pupils Reactive (Laura Quesada. COTTON STOMPER) Neck Neck Exam: Neck Supple (Laura Quesada. COTTON STOMPER) Pulmonary Resp Exam: Clear Bilaterally, Breath Sounds Equal (Laura Quesada COTTON STOMPER) Cardiology CV Exam: Regular, Normal Sinus Rhythm (Laura Quesada COTTON STOMPER) Gastrointestinal/Abdomen GI Exam: Soft, Non-Tender, Distended (Laura Quesada COTTON STOMPER) Musculoskeletal MS Exam: Joints Intact, Atrophy, Unable to Ambulate (Laura Quesada COTTON STOMPER) Integumentary Skin Exam: Warm, Dry Skin Remarks multiple wounds on feet, erythema, open blisters noted bilaterally (Laura Quesada COTTON STOMPER) Extremeties Extremities Exam: No Edema, Pedal Pulses Palpable (Laura Quesada COTTON STOMPER) Neurologic Neuro Exam: Alert, Awake, Oriented, Speech Clear, Moving All Extremities (Laura Quesada. COTTON STOMPER) Psychiatric Psych Exam: Appropriate Responses (Laura Quesada) Assessment/Plan Discussed Condition With: Patient Assessment Summary: BISHOP/Acute Renal Failure Electrolyte Assessment: Hyponatremia Problem List: (1) Acute kidney injury ICD Codes: N17.9 - Acute kidney failure, unspecified Plan: Most likely has suffered ATN from hypotension and hypoperfusion due to sepsis. AIN due to Cefazolin or the other medications is also on the differential. He has become oliguric. HD initiated 02/19 and 02/20. Now on HD as needed. Hypotensive despite pressor support. Will hold HD today, dialyze tomorrow. Bladder scan yesterday suggesting retention. Chirinos placed and around 350 ml returned. Has Vas cath in place, most likely will need Perm cath at later date Obtain daily labs. Maintain MAP > 65mmHg. He is on high dose Levophed adn now vasopressin,. Also on midodrine TID. Vasopressin has been ordered. Avoid hypotension. On 30ml/hr of NS> Overall Prognosis is poor. It is unclear if he will need ramp service man dialysis. Declined hospice suggestion. (2) Hyperkalemia ICD Codes: E87.5 - Hyperkalemia Plan: Improved with dialysis, monitor. 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 Stable, continue to monitor. (4) Anemia ICD Codes: D64.9 - Anemia, unspecified Status: Acute Plan: Given blood transfusion on admission On Epogen with HD Follow CBC Consider IV Venofer however he has evidence of sepsis, PO may be better for now. . (5) DM (diabetes mellitus) ICD Codes: E11.9 - Type 2 diabetes mellitus without complications Status: Chronic Plan: Insulin coverage as needed, maintain blood sugar between 140 and 180. (6) Infected stasis ulcer ICD Codes: I83.209 - Varicose veins of unspecified lower extremity with both ulcer of unspecified site and inflammation Status: Acute Plan: Wound with klebsiella, sensitivity reviewed. Wound care following (7) UTI (urinary tract infection) ICD Codes: N39.0 - Urinary tract infection, site not specified Status: Acute Plan: see below (8) Sepsis ICD Codes: A41.9 - Sepsis, unspecified organism Status: Resolved Plan: ID following Has foot wounds and UTI Antibiotics include meropenem, daptomycin, Ancef, and micafungin Continue supportive care (9) Abdominal pain ICD Codes: R10.9 - Unspecified abdominal pain Status: Acute Plan: Elevated LFTs, HIDA pending US to evaluate for ascites (Laura Quesada) Plan patient was seen and examined. Hypotensive, on vasopressors. We will defer dialysis today. Prognosis is guarded. (Shaun Mcmahon MD) Problem Qualifiers (1) UTI (urinary tract infection): Qualified Codes: N30.00 - Acute cystitis without hematuria Laura Quesada Feb 25, 2018 10:10 Shaun Mcmahon MD Feb 25, 2018 11:37
[2018-02-25] MEDS: MEROPENEM INJ 500 MG in SODIUM CHLORIDE 0.9% INJ 100 ML IV SCH ×2 (10:42→20:09)
[2018-02-25] MEDS: THIORIDAZINE HCL 50 MG TAB PO SCH (10:42)
[2018-02-25] MEDS: FERROUS SULFATE 325 MG (65 MG ELEMENTAL IRON) TAB PO SCH (10:42)
[2018-02-25] MEDS: FLUCONAZOLE 200 MG TAB PO SCH (10:43)
[2018-02-25] MEDS: INSULIN ASPART SUPPLEMENTAL SCALE SQ SCH ×4 (10:43→21:52)
[2018-02-25] MEDS: ceFAZolin 1,000 MG/NS 100 ML IV SCH ×4 (10:43→20:11)
[2018-02-25] MEDS: MICAFUNGIN INJ 100 MG in SODIUM CHLORIDE 0.9% INJ 100 ML IV SCH (11:00)
[2018-02-25] MEDS ORDERED: ALBUMIN 5% INJ 250 ML IV ONE (15:15)
[2018-02-25] MEDS ORDERED: LIDOCAINE HCL 1% 50 ML VIAL ONE (15:21)
--- NOTE | 2018-02-25 15:21 | HHI.GIFU ---
Subjective Remarks LATE ENTRY- PT SEEN AT 830 AM Pt reports some side pain and continued back pain Denies nausea, vomiting (Skylar Sykes) Objective Vitals I&O Vital Signs Date Time Temp Pulse Resp B/P (MAP) Pulse Ox O2 Delivery O2 Flow Rate FiO2 02/25/18 09:54 83 81/47 02/25/18 09:53 83 81/47 02/25/18 06:00 83 02/25/18 04:00 84 02/25/18 04:00 97.7 84 18 87/52 (64) 94 02/25/18 02:44 84 89/46 02/25/18 02:00 85 02/25/18 00:00 91 02/25/18 00:00 97.7 91 23 99/49 (66) 91 02/24/18 22:00 90 02/24/18 21:00 87 102/53 02/24/18 20:00 94.0 87 21 99/50 (66) 90 02/24/18 20:00 87 02/24/18 19:00 90 Nasal Cannula 5.00 02/24/18 18:00 90 02/24/18 16:48 96.5 86 11 102/49 91 02/24/18 16:34 96.6 86 10 95/47 92 02/24/18 16:00 84 02/24/18 16:00 96.5 84 25 99/57 (71) 95 I/O 02/24/18 02/24/18 02/24/18 02/25/18 02/25/18 02/25/18 07:00 15:00 23:00 07:00 15:00 23:00 Intake Total 200 ml 798 ml 1375 ml 550 ml Output Total 0 ml 300 ml 50 ml Balance 200 ml 798 ml 1075 ml 500 ml Intake Oral 480 ml 300 ml IV Total 200 ml 798 ml 450 ml 250 ml Packed Cells 400 ml Blood Product IV Normal Saline Flush 45 ml Output Urine Total 0 ml 300 ml 50 ml Bladder Scan Volume Amount 475 ml # Bowel Movements 0 0 Laboratory Laboratory Tests Test 02/24/18 17:40 02/24/18 19:50 02/25/18 04:22 Prothrombin Time 21.2 22.8 Prothromb Time International Ratio 2.1 2.3 Activated Partial Thromboplast Time 39.0 Hemoglobin 8.5 8.6 Hematocrit 26.2 27.2 White Blood Count 12.0 Red Blood Count 3.03 Mean Corpuscular Volume 90.0 Mean Corpuscular Hemoglobin 28.5 Mean Corpuscular Hemoglobin Concent 31.7 Red Cell Distribution Width 15.8 Platelet Count 279 Mean Platelet Volume 10.4 Neutrophils (%) (Auto) 74.2 Lymphocytes (%) (Auto) 14.8 Monocytes (%) (Auto) 8.3 Eosinophils (%) (Auto) 1.9 Basophils (%) (Auto) 0.8 Neutrophils # (Auto) 8.9 Lymphocytes # (Auto) 1.8 Monocytes # (Auto) 1.0 Eosinophils # (Auto) 0.2 Basophils # (Auto) 0.1 CBC Comment AUTO DIFF Differential Total Cells Counted 100 Neutrophils % (Manual) 84 Band Neutrophils % 2 Lymphocytes % 4 Monocytes % 6 Eosinophils % 2 Basophils % 1 Neutrophils # (Manual) 10.4 Myelocytes 1 Nucleated Red Blood Cells 8 Differential Comment FINAL DIFF MANUAL Platelet Estimate NORMAL Platelet Morphology Comment NORMAL Red Cell Morphology Comment Blood Urea Nitrogen 25 Creatinine 4.15 Random Glucose 191 Total Protein 7.8 Albumin 1.8 Calcium Level 7.5 Phosphorus Level 4.0 Magnesium Level 2.1 Alkaline Phosphatase 424 Aspartate Amino Transf (AST/SGOT) 82 Alanine Aminotransferase (ALT/SGPT) 11 Total Bilirubin 0.6 Sodium Level 131 Potassium Level 3.9 Chloride Level 96 Carbon Dioxide Level 21.3 Anion Gap 14 Estimat Glomerular Filtration Rate 15 Date/Time Source Procedure Growth Status 02/23/18 19:27 Blood Peripheral Aerobic Blood Culture - Preliminary NO GROWTH IN 2 DAYS Resulted 02/23/18 19:27 Blood Peripheral Anaerobic Blood Culture - Preliminary NO GROWTH IN 2 DAYS Resulted 02/24/18 12:35 Urine Catheterized Urine Urine Culture - Preliminary Yeast Species Resulted 02/18/18 11:00 Wound Foot Gram Stain - Final Complete 02/18/18 11:00 Wound Culture - Final Klebsiella Pneumoniae Esbl Pos Complete Imaging Last Impressions Abdomen Ultrasound 02/25/18 0000 Signed Impressions: CONCLUSION: 1. Small amount of ascites. 2. Insufficient amount of fluid for paracentesis. Abdomen/Pelvis CT 02/23/18 1946 Signed Impressions: CONCLUSION: 1. Worsening moderate bilateral pleural effusions, severe anasarca and mild as cites compared with February 17. 2. Stable pericholecystic fluid and gallbladder wall thickening probably relat ed to anasarca. 3. Stable umbilical hernia. No bowel obstruction or free air. Catheter Placement X-Ray 02/19/18 Signed Impressions: CONCLUSION: Uncomplicated ultrasound and fluoroscopic guided central venous dialysis cathet er placement as above. Renal Ultrasound 02/18/18 Signed Impressions: CONCLUSION: 1. Suspected increased echotexture of the renal parenchyma likely representing medical renal disease. No hydronephrosis is present. 2. There is trace free fluid around the liver. Chest X-Ray 02/17/18 Signed Impressions: CONCLUSION: 1. Cardiomegaly with plain film findings suggesting some degree of vascular co ngestion or volume overload. 2. Left basilar consolidation/effusion. Physical Exam HEENT: Normocephalic; atraumatic CHEST: Even/unlabored CARDIAC: RRR ABDOMEN: Distended, semi-firm, nontender, bowel sounds active SKIN: Normal; no rash; no jaundice. 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 Also complaining of abdominal swelling, states he feels the fluid is so high that it is up to his throat. Denies nausea, vomiting. Can not recall BMs, one documented in chart yesterday. Recent C Diff in January. EGD and colonoscopy by our service in February 2017 --> Significant amount of stool present throughout entire examined colon, incomplete study secondary to poor prep. Normal esophagus, food residue in the entire examined stomach, medium sized ulcer in the gastric antrum. CT abdomen and pelvis WO IV contrast (02/23) Worsening moderate bilateral pleural effusions, severe anasarca and mild ascites compared with February 17. Stable pericholecystic fluid and gallbladder wall thickening probably related to anasarca. Stable umbilical hernia. No bowel obstruction or free air. - Elevated LFTs- was previously drinking daily prior to recent admission and discharge and is currently in rehab facility Previous liver work up: Hepatitis C antibody positive, but genotype and quant undetectable AAT-245 Ceruloplasmin-43 VICKIE positive, titer 1:320 Pattern Nucleolar AMA less than 20 AMA negative Ferritin-2320 Iron-63 TIBC-64 %sat-97.8 (02/25) Pt with continued side and back pain. US abdomen shows insufficient fluid for paracentesis. HIDA scan pending. HFE pending Plan: HIDA scan per attending Monitor labs Continue with current supportive care Further recommendations to follow based on results of above and clinical course Pt has been seen and examined by myself and Dr. Rajput and this note is written on his behalf (Skylar Sykes) Physician Comments Seen and examined, plan as above. Will follow up with you. (Wali Rajput MD) Skylar Sykes Feb 25, 2018 15:21 Wali Rajput MD Feb 25, 2018 23:29
--- NOTE | 2018-02-25 15:30 | RADRPT ---
EXAM DATE: 02/24/2018 4:20 PM EDT AGE/SEX: 57 years / Male INDICATIONS: Abdomen pain. CLINICAL DATA: This is the patient's initial encounter. Patient reports that signs and symptoms have been present for 1 day and indicates a pain score of 0/10. MEDICAL/SURGICAL HISTORY: Chronic renal failure. Hepatitis C. Diabetes mellitus type II. ETO H abuse. C-Diff. Inguinal hernia repair. COMPARISON: No prior exams available for comparison. DOSE: 4.2 mCi Tc-99m mebrofenin i.v. TECHNIQUE: Following the intravenous administration of radiotracer, dynamic sequential images were pe rformed with continuous acquisition. Time-activity curves were generated. FINDINGS: Hepatic Kinetics: There is slow progressive uptake of radiotracer in the liver. No focal defects ar e seen. There is slow washout from the hepatic parenchyma. Biliary Clearance: Activity is first seen in the extrahepatic biliary system at 45 minutes. There i s delayed excretion into the small bowel. Small bowel activity is first identified at 65 minutes. Gallbladder: There is no definite gallbladder activity. No significant gallbladder activity is identi fied on delayed imaging at 26 hours. Biliary-Enteric Reflux: None observed. CONCLUSION: 1. Abnormal hepatic kinetics and delayed biliary intestinal transit both of which may be accounted f or by parenchymal liver disease. 2. Nonvisualization of the gallbladder. It is uncertain whether this represents obstruction of the g allbladder or slow excretion of radiotracer. Electronically signed by: Niranjan Bee MD 02/25/2018 3:29 PM EDT
--- NOTE | 2018-02-25 15:44 | HHI.CCPN ---
Subjective Remarks/Hospital Course 57-year-old male with a past medical history significant for bilateral foot cellulitis/abscess with group a strep septicemia (on cefazolin and Flagyl until 02/27/18 per infectious disease), acute kidney injury requiring hemodialysis, C. difficile, hepatitis C, anemia, diabetes mellitus, schizophrenia and hypertension has been admitted for the evaluation of abnormal labs. The patient currently resides in a long-term and had routine labs done showing anemia, worsening renal function and hyponatremia. The patient complains only of being very tired. He denies any dizziness or loss of consciousness. He was admitted to [facility] floor where he developed profound hypotension refractory to IV fluid bolus. He is admitted to ICU for aggressive IV fluid resuscitation and vasopressors treatment. A wound culture was obtained from the left foot ulcer is now reported as growing Klebsiella ESBL positive. Patient also had an abnormal urinalysis when he came in, and the urine culture is now reported as growing Kirstin glabrata. Subjective: 02/23: Afebrile. Patient sitting up in bed in no acute distress, responding to questions appropriately patient on third liter of IV fluid and remains on norepinephrine currently at 2 mics/minute. Patient's urine culture resulted Kirstin glabrata, however only 50,000 CFU but will initiate micafungin secondary to continued hypotension. Patient's midodrine was increased to 10 mg 3 times daily. Patient was noted to have low calcium level today which has been repleted. Electrolyte and CBC panel pending. 02/24: Last evening the patient complained of severe abdominal pain. CT of the abdomen and pelvis was performed, it showed pericholecystic fluid and gallbladder wall thickening. The patient continues to have abdominal pain the patient has been maintained on an n.p.o. status. HIDA scan pending. GI has been consulted. Patient's hemoglobin 7.9, continues to be hypotensive the patient has been typed and screened plan for transfusion of 1 unit of packed red blood cell. Patient continues on Levophed for vasopressor support. Palliative care was consulted to define goals of care, patient does not want hospice at this time. 02/25: Afebrile. The patient remains n.p.o. at this time. HIDA results pending. The patient required additional pressors now on vasopressin 0.04, in conjunction with norepinephrine at 12mcgs. INR trending upward, 2.3. Vitamin K 10 mg IV 1 dose. Urine culture revealed yeast. Discussed with Dr. Washington today, she knew current antibiotic coverage. Objective Vital Signs Date Time Temp Pulse Resp B/P (MAP) Pulse Ox O2 Delivery O2 Flow Rate FiO2 02/25/18 09:54 83 81/47 02/25/18 04:00 97.7 18 94 02/24/18 19:00 Nasal Cannula 5.00 02/21/18 20:30 21 Intake and Output 02/25/18 02/25/18 02/26/18 08:00 16:00 00:00 Intake Total 550 ml Output Total 50 ml Balance 500 ml Result Diagram: 02/25/1842102/25/18421 Objective Remarks GENERAL: Well-nourished, well-developed patient sitting up in bed in no apparent distress SKIN: Warm and dry. HEAD: Normocephalic. EYES: No scleral icterus. No injection or drainage. NECK: Supple, trachea midline. No JVD or lymphadenopathy. CARDIOVASCULAR: Regular rate and rhythm without murmurs, gallops, or rubs. RESPIRATORY: Breath sounds equal bilaterally. No accessory muscle use. GASTROINTESTINAL: Abdomen soft, nondistended. MUSCULOSKELETAL: No cyanosis, or edema. Has ulcers both plantar aspect of feet, clean, with red tissue, no necrotic tissue, no purulence, no periwound erythema. Bilateral dressings on feet C/D I BACK: Nontender without obvious deformity. NEURO EXAM: GCS: 15 Mental Status: The patient is alert and oriented to person, place, and time with normal speech. Cranial Nerves: Visual acuity intact bilaterally. Visual coulter normal in all quadrants. Pupils are round, reactive to light. Extraocular movements are intact without ptosis. Hearing is normal bilaterally. Voice is normal. Tongue protrudes midline and moves symmetrically. GCS 15 A/P Assessment and Plan Plan by systems: Neurologic: Schizophrenia -Continue home dosing Thorazine -Neuro checks per ICU protein Respiratory: Provide O2 1-4 L/min/nasal Incentive spirometry while awake Cardiovascular Septic shock -Continue Levophed to maintain map greater than 65 -Vasopressin 0.04 units/hour added -Continue Midrin 10 mg 3 times daily -Albumin 5% 1 dose FEN/GI: Abdominal pain Stable umbilical hernia Mild ascites -Obtain HIDA scan -Continue gentle hydration normal saline 30 cc/hr -02/23 CT abdomen and pelvis- stable pericholecystic fluid and gallbladder wall thickening -Scheduled sennosides twice daily -Bowel regimen -Hepatitis C IgG Ab positive - GI following Heme/ID: Septic shock Anemia -Begin gentle hydration NS 30cch -IV antibiotics per ID -Kirstin glabrata -02/24 urine culture-yeast -wound culture- Klebsiella ESBL, Group A Strep -02/24 type and screen -Transfuse 1 unit PRBC (02/24) Endocrine: Diabetes mellitus -Initiate clear liquid diet, will resume 1800-calorie ADA when tolerated -Insulin sliding scale -- SSI Prophylaxis: GI Prophylaxis Famotidine BID DVT Prophylaxis -- SCDs Lines: Right infusaport. Peripheral IVs 2 Dispo: my billing statement This patient remains critically ill with one or more organ systems which are or may become a threat to life. I have spent in excess of 31 minutes discontinuously in the care and management of this patient. This time is exclusive of procedures, and includes, but is not limited to, evaluation of the patient, review of the medical record, discussions with family, consultants, nursing staff, or respiratory therapy, and documentation in the medical record. D/W Dr Darden Physician Maddi Lewis MD Feb 25, 2018 15:44
--- NOTE | 2018-02-25 15:44 | HHI.HCPN ---
Reason for visit a. To assist with evaluation and management of symptoms including:pain, b. To assist medical decision maker(s) with: better understanding of current medical conditions; weighing benefits/burdens of medical treatment options; making medical treatment decisions. Subjective/Interval History Patient is more confused today then yesterday. His leukocytosis has increased; cr has increased. US does not show enough fluid for paracentesis. GI did evaluate patient. Nephrology did evaluate patient. Pt remains hypotensive and on pressors. Pt is responsive, but more confuse, does not remember me. He just ask for his parents to be here. He is confused, could not rate pain or elaborate his of pain. Family/friend interactions Attempted to call patient father, who did not answer. I was able to call patient's mother [phone]. I reviewed patient's condition interm of his sepsis, hypotension, LFT's, hemorrhage risk, renal failure. I told her I worry it is a matter of time he decompensate and require intubation, life support and resucitation. I worry he may not rebound from this and decline. He is at risk for decompensation, and . Goals of care are as follows. == mother is christian and beliefs in miracles == She wants to continue all aggressive care possible. == Full Code. Advance Directives Living Will: Never completed Health Care Surrogate: Never completed Durable Power of Cylinder Grinder: Never completed Objective Vital Signs Date Time Temp Pulse Resp B/P (MAP) Pulse Ox O2 Delivery O2 Flow Rate FiO2 02/25/18 09:54 83 81/47 02/25/18 09:53 83 81/47 02/25/18 07:00 90 Nasal Cannula 5.00 02/25/18 06:00 83 02/25/18 04:00 84 02/25/18 04:00 97.7 84 18 87/52 (64) 94 02/25/18 02:44 84 89/46 02/25/18 02:00 85 02/25/18 00:00 91 02/25/18 00:00 97.7 91 23 99/49 (66) 91 02/24/18 22:00 90 02/24/18 21:00 87 102/53 02/24/18 20:00 94.0 87 21 99/50 (66) 90 02/24/18 20:00 87 02/24/18 19:00 90 Nasal Cannula 5.00 02/24/18 18:00 90 02/24/18 16:48 96.5 86 11 102/49 91 02/24/18 16:34 96.6 86 10 95/47 92 02/24/18 16:00 84 02/24/18 16:00 96.5 84 25 99/57 (71) 95 Intake & Output 02/25/18 02/25/18 07:00 19:00 Intake Total 1000 ml Output Total 50 ml Balance 950 ml Intake Oral 300 ml IV Total 700 ml Output Urine Total 50 ml # Bowel Movements 0 Physical Exam CONSTITUTIONAL/GENERAL: This is a 57 year old gentlemen, looks fatigued. responsive, confused, lethargic TUBES/LINES/DRAINS: right central line, almaraz. SKIN: No jaundice, rashes, or lesions. Ecchymoses on upper extremities. No wounds seen anteriorly. Skin temperature appropriate. Not diaphoretic. HEAD: Atraumatic. Normocephalic. EYES: Pupils equal and round and reactive. Extraocular motions intact. No scleral icterus. No injection or drainage. Fundi not examined. ENT: Hearing grossly normal. Nose without bleeding or purulent drainage. Throat without visible erythema, exudates, masses, or lesions. NECK: Trachea midline. Supple, nontender. No palpable thyroid enlargement or nodularity. CARDIOVASCULAR: Regular rate and rhythm without murmurs, gallops, or rubs. No JVD. Peripheral pulses symmetric. RESPIRATORY/CHEST: Symmetric, unlabored respirations. Faint rhonchi. GASTROINTESTINAL: Abdomen soft, distended. Bowel sounds present. GENITOURINARY: Without palpable bladder distension. Almaraz catheter in place. MUSCULOSKELETAL: Extremities. lower extremitiy, feet have dressing, c/d/i LYMPHATICS: No palpable cervical or supraclavicular adenopathy. NEUROLOGICAL: Awake and alert. Motor and sensory grossly within normal limits. confused. Moves all extremities. Lethargy at times. PSYCHIATRIC: Some anxiety, confusion. Diagnostic Tests Laboratory Laboratory Tests Test 02/23/18 02:30 02/23/18 02:50 02/23/18 09:04 02/23/18 11:15 Nasal Screen MRSA (PCR) MRSA NOT DETECTED (NOT White Blood Count 7.7 TH/MM3 (4.0-11.0) 9.0 TH/MM3 (4.0-11.0) Red Blood Count 2.51 MIL/MM3 (4.50-5.90) 2.72 MIL/MM3 (4.50-5.90) Hemoglobin 7.3 GM/DL (13.0-17.0) 7.6 GM/DL (13.0-17.0) Hematocrit 22.2 % (39.0-51.0) 24.0 % (39.0-51.0) Mean Corpuscular Volume 88.4 FL (80.0-100.0) 88.2 FL (80.0-100.0) Mean Corpuscular Hemoglobin 29.2 PG (27.0-34.0) 28.1 PG (27.0-34.0) Mean Corpuscular Hemoglobin Concent 33.0 % (32.0-36.0) 31.8 % (32.0-36.0) Red Cell Distribution Width 15.4 % (11.6-17.2) 15.9 % (11.6-17.2) Platelet Count 270 TH/MM3 (150-450) 283 TH/MM3 (150-450) Mean Platelet Volume 10.1 FL (7.0-11.0) 10.4 FL (7.0-11.0) Neutrophils (%) (Auto) 63.7 % (16.0-70.0) 63.8 % (16.0-70.0) Lymphocytes (%) (Auto) 21.7 % (9.0-44.0) 21.9 % (9.0-44.0) Monocytes (%) (Auto) 11.0 % (0.0-8.0) 10.6 % (0.0-8.0) Eosinophils (%) (Auto) 2.6 % (0.0-4.0) 2.6 % (0.0-4.0) Basophils (%) (Auto) 1.0 % (0.0-2.0) 1.1 % (0.0-2.0) Neutrophils # (Auto) 4.9 TH/MM3 (1.8-7.7) 5.7 TH/MM3 (1.8-7.7) Lymphocytes # (Auto) 1.7 TH/MM3 (1.0-4.8) 2.0 TH/MM3 (1.0-4.8) Monocytes # (Auto) 0.8 TH/MM3 (0-0.9) 1.0 TH/MM3 (0-0.9) Eosinophils # (Auto) 0.2 TH/MM3 (0-0.4) 0.2 TH/MM3 (0-0.4) Basophils # (Auto) 0.1 TH/MM3 (0-0.2) 0.1 TH/MM3 (0-0.2) CBC Comment AUTO DIFF AUTO DIFF Differential Total Cells Counted 100 100 Neutrophils % (Manual) 71 % (16-70) 70 % (16-70) Band Neutrophils % 8 % (0-6) 6 % (0-6) Lymphocytes % 17 % (9-44) 12 % (9-44) Monocytes % 2 % (0-8) 6 % (0-8) Basophils % 1 % (0-2) Neutrophils # (Manual) 6.2 TH/MM3 (1.8-7.7) 7.1 TH/MM3 (1.8-7.7) Metamyelocytes 1 % (0-1) Nucleated Red Blood Cells 44 /100 WBC (0-0) 35 /100 WBC (0-0) Differential Comment FINAL DIFF MANUAL FINAL DIFF MANUAL Platelet Estimate NORMAL (NORMAL) NORMAL (NORMAL) Platelet Morphology Comment NORMAL (NORMAL) ENLARGED (NORMAL) Basophilic Stippling MOD (NORMAL) Blood Urea Nitrogen 17 MG/DL (7-18) 16 MG/DL (7-18) Creatinine 2.98 MG/DL (0.60-1.30) 2.94 MG/DL (0.60-1.30) Random Glucose 145 MG/DL (74-106) 156 MG/DL (74-106) Total Protein 7.7 GM/DL (6.4-8.2) 7.6 GM/DL (6.4-8.2) Calcium Level 7.3 MG/DL (8.5-10.1) 7.6 MG/DL (8.5-10.1) Sodium Level 135 MEQ/L (136-145) 134 MEQ/L (136-145) Potassium Level 3.7 MEQ/L (3.5-5.1) 3.5 MEQ/L (3.5-5.1) Chloride Level 98 MEQ/L (98-107) 99 MEQ/L (98-107) Carbon Dioxide Level 28.8 MEQ/L (21.0-32.0) 25.1 MEQ/L (21.0-32.0) Anion Gap 8 MEQ/L (5-15) 10 MEQ/L (5-15) Estimat Glomerular Filtration Rate 22 ML/MIN (>89) 22 ML/MIN (>89) Lactic Acid Level 1.7 mmol/L (0.4-2.0) 1.7 mmol/L (0.4-2.0) Protein Corrected Calcium 7.1 MG/DL (8.5-10.1) Eosinophils % 3 % (0-4) Myelocytes 3 % (0-0) Target Cells 1+ (NORMAL) Red Cell Morphology Comment (NORMAL) Albumin 1.7 GM/DL (3.4-5.0) Magnesium Level 2.1 MG/DL (1.5-2.5) Alkaline Phosphatase 422 U/L (45-117) Aspartate Amino Transf (AST/SGOT) 114 U/L (15-37) Alanine Aminotransferase (ALT/SGPT) 14 U/L (12-78) Total Bilirubin 0.4 MG/DL (0.2-1.0) Test 02/24/18 06:45 02/24/18 12:35 02/24/18 17:40 02/24/18 19:50 White Blood Count 9.5 TH/MM3 (4.0-11.0) Red Blood Count 2.75 MIL/MM3 (4.50-5.90) Hemoglobin 7.9 GM/DL (13.0-17.0) 8.5 GM/DL (13.0-17.0) Hematocrit 24.7 % (39.0-51.0) 26.2 % (39.0-51.0) Mean Corpuscular Volume 89.9 FL (80.0-100.0) Mean Corpuscular Hemoglobin 28.8 PG (27.0-34.0) Mean Corpuscular Hemoglobin Concent 32.0 % (32.0-36.0) Red Cell Distribution Width 15.8 % (11.6-17.2) Platelet Count 285 TH/MM3 (150-450) Mean Platelet Volume 10.2 FL (7.0-11.0) Neutrophils (%) (Auto) 63.9 % (16.0-70.0) Lymphocytes (%) (Auto) 21.8 % (9.0-44.0) Monocytes (%) (Auto) 10.4 % (0.0-8.0) Eosinophils (%) (Auto) 3.2 % (0.0-4.0) Basophils (%) (Auto) 0.7 % (0.0-2.0) Neutrophils # (Auto) 6.1 TH/MM3 (1.8-7.7) Lymphocytes # (Auto) 2.1 TH/MM3 (1.0-4.8) Monocytes # (Auto) 1.0 TH/MM3 (0-0.9) Eosinophils # (Auto) 0.3 TH/MM3 (0-0.4) Basophils # (Auto) 0.1 TH/MM3 (0-0.2) CBC Comment AUTO DIFF Differential Total Cells Counted 100 Neutrophils % (Manual) 72 % (16-70) Band Neutrophils % 4 % (0-6) Lymphocytes % 13 % (9-44) Monocytes % 4 % (0-8) Eosinophils % 5 % (0-4) Neutrophils # (Manual) 7.4 TH/MM3 (1.8-7.7) Myelocytes 2 % (0-0) Nucleated Red Blood Cells 14 /100 WBC (0-0) Differential Comment FINAL DIFF MANUAL Platelet Estimate NORMAL (NORMAL) Platelet Morphology Comment NORMAL (NORMAL) Polychromasia 2.5 % (0.0-1.9) Basophilic Stippling FAINT (NORMAL) Target Cells 2+ (NORMAL) Red Cell Morphology Comment (NORMAL) Blood Urea Nitrogen 20 MG/DL (7-18) Creatinine 3.55 MG/DL (0.60-1.30) Random Glucose 189 MG/DL (74-106) Total Protein 7.6 GM/DL (6.4-8.2) Albumin 1.6 GM/DL (3.4-5.0) Calcium Level 7.5 MG/DL (8.5-10.1) Phosphorus Level 3.2 MG/DL (2.5-4.9) Magnesium Level 2.1 MG/DL (1.5-2.5) Alkaline Phosphatase 395 U/L (45-117) Aspartate Amino Transf (AST/SGOT) 104 U/L (15-37) Alanine Aminotransferase (ALT/SGPT) 9 U/L (12-78) Total Bilirubin 0.4 MG/DL (0.2-1.0) Sodium Level 133 MEQ/L (136-145) Potassium Level 3.8 MEQ/L (3.5-5.1) Chloride Level 99 MEQ/L (98-107) Carbon Dioxide Level 23.5 MEQ/L (21.0-32.0) Anion Gap 11 MEQ/L (5-15) Estimat Glomerular Filtration Rate 18 ML/MIN (>89) Urine Color DARK-BROWN (YELLW/STRAW) Urine Turbidity CLOUDY (CLEAR) Urine pH 5.5 (5.0-8.5) Urine Specific [place] 1.025 (1.002-1.035) Urine Protein 100 mg/dL (NEG-TRACE) Urine Glucose (UA) NEG mg/dL (NEG) Urine Ketones TRACE mg/dL (NEG) Urine Occult Blood LARGE (NEG) Urine Nitrite NEG (NEG) Urine Bilirubin NEG (NEG) Urine Urobilinogen LESS THAN 2.0 MG/DL (LESS Urine Leukocyte Esterase LARGE (NEG) Urine RBC 142 /hpf (0-3) Urine WBC /hpf (0-5) Urine WBC Clumps MANY (NONE) Urine Squamous Epithelial Cells 8 /hpf (0-5) Urine Bacteria MOD /hpf (NONE) Urine Hyaline Casts 54 /lpf (RARE) Urine Granular Casts 18 /lpf (NONE) Urine White Blood Cell Casts 18 /lpf (NONE) Urine Mucus MANY /lpf (OCC) Urine Yeast (Budding) FEW (NONE) Microscopic Urinalysis Comment CATH-CULTURE IND Prothrombin Time 21.2 SEC (9.8-11.6) Prothromb Time International Ratio 2.1 RATIO Activated Partial Thromboplast Time 39.0 SEC (24.3-30.1) Test 02/25/18 04:22 White Blood Count 12.0 TH/MM3 (4.0-11.0) Red Blood Count 3.03 MIL/MM3 (4.50-5.90) Hemoglobin 8.6 GM/DL (13.0-17.0) Hematocrit 27.2 % (39.0-51.0) Mean Corpuscular Volume 90.0 FL (80.0-100.0) Mean Corpuscular Hemoglobin 28.5 PG (27.0-34.0) Mean Corpuscular Hemoglobin Concent 31.7 % (32.0-36.0) Red Cell Distribution Width 15.8 % (11.6-17.2) Platelet Count 279 TH/MM3 (150-450) Mean Platelet Volume 10.4 FL (7.0-11.0) Neutrophils (%) (Auto) 74.2 % (16.0-70.0) Lymphocytes (%) (Auto) 14.8 % (9.0-44.0) Monocytes (%) (Auto) 8.3 % (0.0-8.0) Eosinophils (%) (Auto) 1.9 % (0.0-4.0) Basophils (%) (Auto) 0.8 % (0.0-2.0) Neutrophils # (Auto) 8.9 TH/MM3 (1.8-7.7) Lymphocytes # (Auto) 1.8 TH/MM3 (1.0-4.8) Monocytes # (Auto) 1.0 TH/MM3 (0-0.9) Eosinophils # (Auto) 0.2 TH/MM3 (0-0.4) Basophils # (Auto) 0.1 TH/MM3 (0-0.2) CBC Comment AUTO DIFF Differential Total Cells Counted 100 Neutrophils % (Manual) 84 % (16-70) Band Neutrophils % 2 % (0-6) Lymphocytes % 4 % (9-44) Monocytes % 6 % (0-8) Eosinophils % 2 % (0-4) Basophils % 1 % (0-2) Neutrophils # (Manual) 10.4 TH/MM3 (1.8-7.7) Myelocytes 1 % (0-0) Nucleated Red Blood Cells 8 /100 WBC (0-0) Differential Comment FINAL DIFF MANUAL Platelet Estimate NORMAL (NORMAL) Platelet Morphology Comment NORMAL (NORMAL) Red Cell Morphology Comment (NORMAL) Prothrombin Time 22.8 SEC (9.8-11.6) Prothromb Time International Ratio 2.3 RATIO Blood Urea Nitrogen 25 MG/DL (7-18) Creatinine 4.15 MG/DL (0.60-1.30) Random Glucose 191 MG/DL (74-106) Total Protein 7.8 GM/DL (6.4-8.2) Albumin 1.8 GM/DL (3.4-5.0) Calcium Level 7.5 MG/DL (8.5-10.1) Phosphorus Level 4.0 MG/DL (2.5-4.9) Magnesium Level 2.1 MG/DL (1.5-2.5) Alkaline Phosphatase 424 U/L (45-117) Aspartate Amino Transf (AST/SGOT) 82 U/L (15-37) Alanine Aminotransferase (ALT/SGPT) 11 U/L (12-78) Total Bilirubin 0.6 MG/DL (0.2-1.0) Sodium Level 131 MEQ/L (136-145) Potassium Level 3.9 MEQ/L (3.5-5.1) Chloride Level 96 MEQ/L (98-107) Carbon Dioxide Level 21.3 MEQ/L (21.0-32.0) Anion Gap 14 MEQ/L (5-15) Estimat Glomerular Filtration Rate 15 ML/MIN (>89) Result Diagram: 02/25/1842102/25/18421 Microbiology Microbiology Date/Time Source Procedure Growth Status 02/23/18 19:27 Blood Peripheral Aerobic Blood Culture - Preliminary NO GROWTH IN 2 DAYS Resulted 02/23/18 19:27 Blood Peripheral Anaerobic Blood Culture - Preliminary NO GROWTH IN 2 DAYS Resulted 02/23/18 19:20 Blood Peripheral Aerobic Blood Culture - Preliminary NO GROWTH IN 2 DAYS Resulted 02/23/18 19:20 Blood Peripheral Anaerobic Blood Culture - Preliminary NO GROWTH IN 2 DAYS Resulted 02/24/18 12:35 Urine Catheterized Urine Urine Culture - Preliminary Yeast Species Resulted Imaging Last Impressions Abdomen Ultrasound 02/25/18 0000 Signed Impressions: CONCLUSION: 1. Small amount of ascites. 2. Insufficient amount of fluid for paracentesis. Hepatobiliary Scan Nuclear Medicine 02/24/18 0000 Signed Impressions: CONCLUSION: 1. Abnormal hepatic kinetics and delayed biliary intestinal transit both of wh ich may be accounted for by parenchymal liver disease. 2. Nonvisualization of the gallbladder. It is uncertain whether this represent s obstruction of the gallbladder or slow excretion of radiotracer. Abdomen/Pelvis CT 02/23/181945 Signed Impressions: CONCLUSION: 1. Worsening moderate bilateral pleural effusions, severe anasarca and mild as cites compared with February 17. 2. Stable pericholecystic fluid and gallbladder wall thickening probably relat ed to anasarca. 3. Stable umbilical hernia. No bowel obstruction or free air. Catheter Placement X-Ray 02/19/18 Signed Impressions: CONCLUSION: Uncomplicated ultrasound and fluoroscopic guided central venous dialysis cathet er placement as above. Renal Ultrasound 02/18/18 Signed Impressions: CONCLUSION: 1. Suspected increased echotexture of the renal parenchyma likely representing medical renal disease. No hydronephrosis is present. 2. There is trace free fluid around the liver. Chest X-Ray 02/17/18 Signed Impressions: CONCLUSION: 1. Cardiomegaly with plain film findings suggesting some degree of vascular co ngestion or volume overload. 2. Left basilar consolidation/effusion. Assessment and Plan Disease Oriented Problem List: (1) Acute on chronic renal failure (2) Sepsis (3) Ulcer of left foot due to type 2 diabetes mellitus (4) Chronic disease anemia (5) Pleural effusion (6) History of schizophrenia Symptom Scale: (1) Pain 0-10 Scale: Unable to quantify (too confused today.) Pertinent Non-Medical Issues Psychosocial:Pt not . no children. Lives with parents. 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 Spiritual: gnosticist, not christian Legal: Proxy would be pt's parents. Ethical issues impacting care: none. Important Contacts Maryuri [phone] (sister RN) Rosana Yanes [phone] or [phone] (mother) Alexei Yanes [phone] or [phone] (father) has another sister. Prognosis 57 year old with chronic wounds, sepsis, acute on chronic renal failure. Prognosis is guarded. Should he survive current hospitalization, he is a risk for repeated hospitlization for sepsis, renal failure, and general debility. Overall functional level as well as compliance is poor. Code Status: Full Code Plan == Capacity- he is confused and does not have capacity today. == Health care decision maker- will be patient's parents by Fl statuetes. Patient has no children, not . == Code: Full. == Health care decision maker- Not , no children, under [place] statuettes it will be pt's parents who are proxy. He decline signing health care surrogate form today. == goals of treatment: Attempted to call patient father, who did not answer. I was able to call patient's mother [phone]. I reviewed patient's condition interm of his sepsis, hypotension, LFT's, hemorrhage risk, renal failure. I told her I worry it is a matter of time he decompensate and require intubation, life support and resucitation. I worry he may not rebound from this and decline. He is at risk for decompensation, and . Goals of care are as follows. * mother is christian and beliefs in miracles * She wants to continue all aggressive care possible. * Full Code. * Goals are unlikely to change for the time being. Symptom: Pain- complains mostly of back pain, and not much about his wounds. Dilaudid appears effective. Continue dilaudid. nausea/vomiting- none at this time. Palliative care will continue to follow and make recommendations on symptom management and review goals of treatment as clinical condition evolves. d/w attending physician. Attestation Last Impressions Abdomen Ultrasound 02/25/18 Signed Impressions: CONCLUSION: 1. Small amount of ascites. 2. Insufficient amount of fluid for paracentesis. Hepatobiliary Scan Nuclear Medicine 02/24/18 Signed Impressions: CONCLUSION: 1. Abnormal hepatic kinetics and delayed biliary intestinal transit both of wh ich may be accounted for by parenchymal liver disease. 2. Nonvisualization of the gallbladder. It is uncertain whether this represent s obstruction of the gallbladder or slow excretion of radiotracer. Abdomen/Pelvis CT 02/23/181945 Signed Impressions: CONCLUSION: 1. Worsening moderate bilateral pleural effusions, severe anasarca and mild as cites compared with February 17. 2. Stable pericholecystic fluid and gallbladder wall thickening probably relat ed to anasarca. 3. Stable umbilical hernia. No bowel obstruction or free air. Catheter Placement X-Ray 02/19/18 Signed Impressions: CONCLUSION: Uncomplicated ultrasound and fluoroscopic guided central venous dialysis cathet er placement as above. Renal Ultrasound 02/18/18 Signed Impressions: CONCLUSION: 1. Suspected increased echotexture of the renal parenchyma likely representing medical renal disease. No hydronephrosis is present. 2. There is trace free fluid around the liver. Chest X-Ray 02/17/18 Signed Impressions: CONCLUSION: 1. Cardiomegaly with plain film findings suggesting some degree of vascular co ngestion or volume overload. 2. Left basilar consolidation/effusion. Lon Darden MD Feb 25, 2018 15:43
--- NOTE | 2018-02-25 16:05 | PD.PROCEDR ---
Procedure Note Procedure Procedure: Arterial Line Placement Right radial arterial Diagnosis: Septic shock/hemodynamic instability Indications: Septic shock/hemodynamic in stable Consent: Obtained from patient Description of the Procedure: The was prepped and draped sterilely. 1% lidocaine was used for local anesthesia. The pulse was located and a needle was advanced into the artery. A 20 gauge, 1.34 cm catheter was advanced into the artery using a modified Seldinger technique. The catheter was sutured to the skin and a sterile dressing was applied. The catheter was connected to a pressure transducer and an arterial waveform was noted. There were no immediate complications noted. There was minimal EBL. I personally performed the procedure. Maddi Dominguez MD Feb 25, 2018 16:05
--- NOTE | 2018-02-25 16:27 | HHI.IDPN ---
Note Infectious Disease Note Patient states that he feels weak. Awake. Alert. Continues to have hypotension. Currently on Levophed 12 mcg. Also on vasopressin. Afebrile. Repeat urine culture has Kirstin. 57-year-old male, came from the senior care, brought into the hospital for abnormal routine labs showing anemia, hyponatremia, and worsening renal function. Patient was hospitalized last month and at that time he had group A strep septicemia as well as bilateral foot ulcers with infection. During that hospitalization he also had acute kidney injury and it improved but not to normal limits. Patient was discharged on IV Ancef for his sepsis, with plans to complete treatment on February 27. Antibiotics Cefazolin Daptomycin micafungin Metronidazole Past Medical History Bilateral foot cellulitis/abscess with group a strep septicemia (on cefazolin and Flagyl until 02/27/18 per infectious disease) Acute kidney injury requiring hemodialysis C. 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 Objective Vital Signs Date Time Temp Pulse Resp B/P (MAP) Pulse Ox O2 Delivery O2 Flow Rate FiO2 02/25/18 15:00 86 02/25/18 14:00 84 02/25/18 13:00 85 02/25/18 12:00 84 02/25/18 12:00 97.2 84 19 99/50 (66) 91 02/25/18 11:00 84 02/25/18 10:00 82 02/25/18 09:54 83 81/47 02/25/18 09:53 83 81/47 02/25/18 09:00 81 02/25/18 08:00 97.1 81 18 86/47 (60) 94 02/25/18 08:00 81 02/25/18 07:00 84 02/25/18 07:00 90 Nasal Cannula 5.00 02/25/18 06:00 83 02/25/18 04:00 84 02/25/18 04:00 97.7 84 18 87/52 (64) 94 02/25/18 02:44 84 89/46 02/25/18 02:00 85 02/25/18 00:00 91 02/25/18 00:00 97.7 91 23 99/49 (66) 91 02/24/18 22:00 90 02/24/18 21:00 87 102/53 02/24/18 20:00 94.0 87 21 99/50 (66) 90 02/24/18 20:00 87 02/24/18 19:00 90 Nasal Cannula 5.00 02/24/18 18:00 90 02/24/18 16:48 96.5 86 11 102/49 91 02/24/18 16:34 96.6 86 10 95/47 92 Laboratory Tests Test 02/24/18 06:45 02/24/18 19:50 02/25/18 04:22 White Blood Count 9.5 TH/MM3 12.0 TH/MM3 Red Blood Count 2.75 MIL/MM3 3.03 MIL/MM3 Hemoglobin 7.9 GM/DL 8.5 GM/DL 8.6 GM/DL Hematocrit 24.7 % 26.2 % 27.2 % Mean Corpuscular Volume 89.9 FL 90.0 FL Mean Corpuscular Hemoglobin 28.8 PG 28.5 PG Mean Corpuscular Hemoglobin Concent 32.0 % 31.7 % Red Cell Distribution Width 15.8 % 15.8 % Platelet Count 285 TH/MM3 279 TH/MM3 Mean Platelet Volume 10.2 FL 10.4 FL Neutrophils (%) (Auto) 63.9 % 74.2 % Lymphocytes (%) (Auto) 21.8 % 14.8 % Monocytes (%) (Auto) 10.4 % 8.3 % Eosinophils (%) (Auto) 3.2 % 1.9 % Basophils (%) (Auto) 0.7 % 0.8 % Neutrophils # (Auto) 6.1 TH/MM3 8.9 TH/MM3 Lymphocytes # (Auto) 2.1 TH/MM3 1.8 TH/MM3 Monocytes # (Auto) 1.0 TH/MM3 1.0 TH/MM3 Eosinophils # (Auto) 0.3 TH/MM3 0.2 TH/MM3 Basophils # (Auto) 0.1 TH/MM3 0.1 TH/MM3 CBC Comment AUTO DIFF AUTO DIFF Differential Total Cells Counted 100 100 Neutrophils % (Manual) 72 % 84 % Band Neutrophils % 4 % 2 % Lymphocytes % 13 % 4 % Monocytes % 4 % 6 % Eosinophils % 5 % 2 % Neutrophils # (Manual) 7.4 TH/MM3 10.4 TH/MM3 Myelocytes 2 % 1 % Nucleated Red Blood Cells 14 /100 WBC 8 /100 WBC Differential Comment FINAL DIFF MANUAL FINAL DIFF MANUAL Platelet Estimate NORMAL NORMAL Platelet Morphology Comment NORMAL NORMAL Polychromasia 2.5 % Basophilic Stippling FAINT Target Cells 2+ Red Cell Morphology Comment Basophils % 1 % Laboratory Tests Test 02/24/18 06:45 02/25/18 04:22 02/25/18 15:55 Blood Urea Nitrogen 20 MG/DL 25 MG/DL Creatinine 3.55 MG/DL 4.15 MG/DL Random Glucose 189 MG/DL 191 MG/DL Total Protein 7.6 GM/DL 7.8 GM/DL Albumin 1.6 GM/DL 1.8 GM/DL Calcium Level 7.5 MG/DL 7.5 MG/DL Phosphorus Level 3.2 MG/DL 4.0 MG/DL Magnesium Level 2.1 MG/DL 2.1 MG/DL Alkaline Phosphatase 395 U/L 424 U/L Aspartate Amino Transf (AST/SGOT) 104 U/L 82 U/L Alanine Aminotransferase (ALT/SGPT) 9 U/L 11 U/L Total Bilirubin 0.4 MG/DL 0.6 MG/DL Sodium Level 133 MEQ/L 131 MEQ/L Potassium Level 3.8 MEQ/L 3.9 MEQ/L Chloride Level 99 MEQ/L 96 MEQ/L Carbon Dioxide Level 23.5 MEQ/L 21.3 MEQ/L Anion Gap 11 MEQ/L 14 MEQ/L Estimat Glomerular Filtration Rate 18 ML/MIN 15 ML/MIN Microbiology Date/Time Source Procedure Growth Status 02/23/18 19:27 Blood Peripheral Aerobic Blood Culture - Preliminary NO GROWTH IN 2 DAYS Resulted 02/23/18 19:27 Blood Peripheral Anaerobic Blood Culture - Preliminary NO GROWTH IN 2 DAYS Resulted 02/23/18 19:20 Blood Peripheral Aerobic Blood Culture - Preliminary NO GROWTH IN 2 DAYS Resulted 02/23/18 19:20 Blood Peripheral Anaerobic Blood Culture - Preliminary NO GROWTH IN 2 DAYS Resulted 02/24/18 12:35 Urine Catheterized Urine Urine Culture - Preliminary Yeast Species Resulted Imaging: Abdomen Ultrasound 02/25/18 Signed Impressions: CONCLUSION: 1. Small amount of ascites. 2. Insufficient amount of fluid for paracentesis. Abdomen/Pelvis CT 02/23/181945 Signed Impressions: CONCLUSION: 1. Worsening moderate bilateral pleural effusions, severe anasarca and mild as cites compared with February 17. 2. Stable pericholecystic fluid and gallbladder wall thickening probably relat ed to anasarca. 3. Stable umbilical hernia. No bowel obstruction or free air. Catheter Placement X-Ray 02/19/18 Signed Impressions: CONCLUSION: Uncomplicated ultrasound and fluoroscopic guided central venous dialysis cathet er placement as above. Renal Ultrasound 02/18/18 Signed Impressions: CONCLUSION: 1. Suspected increased echotexture of the renal parenchyma likely representing medical renal disease. No hydronephrosis is present. 2. There is trace free fluid around the liver. Chest X-Ray 02/17/18 Signed Impressions: CONCLUSION: 1. Cardiomegaly with plain film findings suggesting some degree of vascular co ngestion or volume overload. 2. Left basilar consolidation/effusion. Physical Exam GENERAL: Awake. No acute distress. HEENT: Pupils reactive to light. No icterus. Extraocular movements intact. Slightly dry oral mucosa. NECK: Supple without adenopathy or swelling. LUNGS: Clear to auscultation. HEART: Irregular S1 and S2. No murmurs or rubs or gallops. ABDOMEN: Distended, firm, increased bowel sounds. No tenderness. EXTREMITIES: No clubbing or cyanosis. Trace edema of the feet. SKIN: No rash. NEUROLOGIC: No gross focal finding. PSYCH: Calm and cooperative. LINE: No evidence of infection, Dc on the right chest and right IJ Vas- Cath IMPRESSION Group A Strep sepsis from foot infection, better Treatment is due to be completed on February 27. (+) wound C/S with Kleb ESBL+ - colonization, wound looks clean and no evidence of infection Kirstin UTI Renal failure, on HD Hx C diff colitis New sepsis ? acute cholecystitis -abnormal CT scan. abnormal LFTs. RECOMMENDATION Complete treatment for osteomyelitis with Ancef till February 27. Continue Meropenem Continue daptomycin Continue Micafungin. Monitor blood cultures. Monitor clinical status. Discussed with Dr. Dominguez. Sen Washington MD Feb 25, 2018 16:27
[2018-02-25 16:48] LABS: CALCIUM 7.9 MG/DL (8.5-10.1)
[2018-02-25 16:53] LABS: CALCIUM-PROTEIN CORRECTED 7.7 MG/DL (8.5-10.1); TOTAL PROTEIN 7.7 GM/DL (6.4-8.2)
[2018-02-25] MEDS ORDERED: PHYTONADIONE INJ 10 MG in SODIUM CHLORIDE 0.9% INJ 50 ML IV ONE (17:00)
--- NOTE | 2018-02-25 18:05 | RADRPT ---
EXAM DATE: 02/25/2018 6:00 PM EDT AGE/SEX: 57 years / Male INDICATIONS: Right upper quadrant pain. CLINICAL DATA: This is the patient's subsequent encounter. Patient reports that signs and/or symptom s have been present for 1 day and indicates a pain score of 0/10. MEDICAL/SURGICAL HISTORY: . Gastroesophageal reflux disease. Arthritis. Diabetes. Diabetic neuropat hy. Hypertension. Sleep apnea. Liver disease. Schizophrenia. PTSD. ETOH abuse. Umbilical hernia. Germ an measles. Blood transfusion. MRSA. VRE. C diff. . . Bilateral foot surgery. COMPARISON: [facility] – [place], [place], CT ABDOMEN & PELVIS W/O CONTRAST, 02/23/2018, ultrasound of the abdomen 01/16/2018 . . MEASUREMENTS (cm x cm x cm): Liver:__ N/A cm length Common Bile Duct:__ Nonvisualized FINDINGS: Limited sonographic images of the gallbladder were performed. Other visceral structures were not eval uated at this time. The gallbladder is thick walled. It is distended. There is a questionable echogen ic stone within the neck. A trace amount of pericholecystic fluid noted. CONCLUSION: 1. Concern for acute cholecystitis. Electronically signed by: Randall Berger MD 02/25/2018 6:04 PM EDT
--- NOTE | 2018-02-25 18:31 | PD.RAD ---
Post Procedure Progress Note Pre Procedure Diagnosis: (1) Cholecystitis Post Procedure Diagnosis: (1) Cholecystitis Procedure Date: Feb 25, 2018 Supervising Radiologist: Randall Berger JR Proceduralist/Assist: eHri Christie RT(R), RT Allison(R) Anesthesia: Other Plan of Activity Patient to Unit: Critical Care Patient Condition: Fair See PACS Report for procedural detail/treatment Drainage Procedure Procedure 1 Imaging Guidance: Fluoroscopy, Ultrasound Procedure Type: Cholecystostomy Procedure: Placement Pakistani: 8 Fluid Removal (CCs): 80 Findings: Thick walled, distended gallbladder. Placed percutaneous cholecystotomy tube. Thick, dark inspissated bile noted. Sample to micro.. Plan [place] tube will need to remain in place for a minimum of 3 weeks. Jr. Ab,Randall Forrest MD Feb 25, 2018 18:31
[2018-02-25] MEDS: DAPTOmycin INJ 800 MG in SODIUM CHLORIDE 0.9% INJ 100 ML IV SCH (21:53)
[2018-02-25] MEDS: SODIUM CHLOR 0.9% 1000 ML INJ 1,000 ML IV SCH (23:40)
[2018-02-26] VITALS (12 sets, daily range): BP systolic 88–103; BP diastolic 30–57; PULSE 56–97; RESP 19–22; TEMP 97.5–98.8; O2SAT 92–97
[2018-02-26] MEDS: NOREPINEPHRINE-DEXTROSE DRIP 250 ML IV PRN ×3 (01:19→18:22)
[2018-02-26] MEDS: CHLORHEXIDINE GLUCONATE 2 % 1 PACK (2 CLOTHS)(taper/protocol) TOPICAL SCH (04:00)
[2018-02-26 05:34] LABS: AUTOMATED NEUTROPHIL # 8.6 TH/MM3 (1.8-7.7); BASOPHIL # 0.1 TH/MM3 (0-0.2); BASOPHIL % 0.7 % (0.0-2.0); EOSINOPHIL # 0.2 TH/MM3 (0-0.4); EOSINOPHIL % 1.4 % (0.0-4.0); HEMATOCRIT 26.2 % (39.0-51.0); HEMOGLOBIN 8.3 GM/DL (13.0-17.0); LYMPH % 16.1 % (9.0-44.0); LYMPHOCYTE # 1.9 TH/MM3 (1.0-4.8); MEAN CELL VOLUME 91.2 FL (80.0-100.0); MEAN CORPUSCULAR HEMOGLOBIN 28.8 PG (27.0-34.0); MEAN CORPUSCULAR HGB CONC 31.5 % (32.0-36.0); MEAN PLATELET VOLUME 10.5 FL (7.0-11.0); MONO % 9.1 % (0.0-8.0); MONOCYTE # 1.1 TH/MM3 (0-0.9); NEUT % 72.7 % (16.0-70.0); PLATELET COUNT 262 TH/MM3 (150-450); RED BLOOD COUNT 2.87 MIL/MM3 (4.50-5.90); RED CELL DISTRIBUTION WIDTH 16.3 % (11.6-17.2); WHITE BLOOD COUNT 11.8 TH/MM3 (4.0-11.0)
[2018-02-26 05:50] LABS: ALBUMIN 1.8 GM/DL (3.4-5.0); AST (GOT) 71 U/L (15-37); BICARBONATE 20.4 MEQ/L (21.0-32.0); BLOOD UREA NITROGEN 30 MG/DL (7-18); CALCIUM 7.5 MG/DL (8.5-10.1); CHLORIDE 96 MEQ/L (98-107); CREATININE 4.54 MG/DL (0.60-1.30); GLOMERULAR FILTRATION RATE 14 ML/MIN (>89); GLUCOSE,RANDOM 162 MG/DL (74-106); MAGNESIUM 2.1 MG/DL (1.5-2.5); SODIUM (NA) 131 MEQ/L (136-145)
[2018-02-26 05:55] LABS: ALKALINE PHOSPHATASE 380 U/L (45-117); ALT (GPT) 11 U/L (12-78); PHOSPHORUS 4.9 MG/DL (2.5-4.9); TOTAL BILIRUBIN ADULT 0.6 MG/DL (0.2-1.0); TOTAL PROTEIN 7.6 GM/DL (6.4-8.2)
[2018-02-26] MEDS: metroNIDAZOLE 500 MG TAB PO SCH ×3 (06:21→21:57)
[2018-02-26] MEDS: MIDODRINE 5 MG TAB PO SCH ×3 (06:21→18:22)
[2018-02-26] MEDS: INSULIN ASPART SUPPLEMENTAL SCALE SQ SCH ×4 (08:00→20:01)
[2018-02-26] MEDS: THIORIDAZINE HCL 50 MG TAB PO SCH ×2 (08:19→12:10)
[2018-02-26] MEDS: FLUCONAZOLE 200 MG TAB PO SCH ×2 (08:20→12:08)
[2018-02-26] MEDS: SENNOSIDES 8.6 MG TAB PO SCH ×3 (08:21→19:59)
[2018-02-26] MEDS: FERROUS SULFATE 325 MG (65 MG ELEMENTAL IRON) TAB PO SCH ×2 (08:21→12:08)
[2018-02-26] MEDS: SODIUM CHLORIDE 0.9% FLUSH 10 ML FLUSH IV FLUSH SCH ×2 (08:22→21:00)
[2018-02-26 08:32] LABS: BANDS 8 % (0-6); CORRECTED NUCLEATED RBC 7 /100 WBC (0-0); LYMPHOCYTES 8 % (9-44); METAMYELOCYTES 1 % (0-1); MONOCYTES 8 % (0-8); MYELOCYTES 4 % (0-0); NEUTROPHIL # MANUAL DIFF 9.7 TH/MM3 (1.8-7.7); NUCLEATED RED BLOOD CELL 7 (0-0); POLYS (SEG NEUTROPHILS) 69 % (16-70)
[2018-02-26 08:33] LABS: POLYCHROMASIA 2.7 % (0.0-1.9); TARGET CELLS 1+ (NORMAL)
--- NOTE | 2018-02-26 09:42 | HHI.HCPN ---
Reason for visit a. To assist with evaluation and management of symptoms including:pain, b. To assist medical decision maker(s) with: better understanding of current medical conditions; weighing benefits/burdens of medical treatment options; making medical treatment decisions. Subjective/Interval History He continues to have leukocytosis. Patient remains on pressors. He did get Cholectystomy tube yesterday. remains in sepsis. Continue to have worsening renal failure. Currently getting dialysis He remains fatigued, complains of some abdominal pain where cholecystomy tube is. Remains confused, does not remember me. Somewhat lethargic. Could not rate. Family/friend interactions Met patient's mother in person. For the time being she is not receptive to palliative care. She has no questions. Goals are aggressive. Advance Directives Living Will: Never completed Health Care Surrogate: Never completed Durable Power of Confidential Secretary: Never completed Objective Vital Signs Date Time Temp Pulse Resp B/P (MAP) Pulse Ox O2 Delivery O2 Flow Rate FiO2 02/26/18 08:00 85 02/26/18 08:00 97.5 85 20 97/57 (70) 92 02/26/18 07:00 94 Nasal Cannula 5.00 02/26/18 06:26 83 96/55 02/26/18 06:00 84 02/26/18 04:00 84 02/26/18 04:00 97.5 84 20 95/54 (68) 92 02/26/18 02:00 83 02/26/18 01:19 83 88/49 02/26/18 00:00 97.9 86 19 100/53 (69) 92 02/26/18 00:00 86 02/25/18 22:00 83 02/25/18 20:00 81 02/25/18 20:00 97.5 81 16 92/55 (67) 100 02/25/18 19:56 81 99/30 02/25/18 19:00 99 Non-Rebreather 15.00 02/25/18 17:00 83 02/25/18 16:29 93 Nasal Cannula 4.00 02/25/18 16:00 85 02/25/18 16:00 97.4 85 21 91/46 (61) 91 02/25/18 15:00 86 02/25/18 14:00 84 02/25/18 13:00 85 6/12/18 12:00 84 02/25/18 12:00 97.2 84 19 99/50 (66) 91 02/25/18 11:00 84 02/25/18 10:00 82 02/25/18 09:54 82 81/47 02/25/18 09:54 83 81/47 02/25/18 09:53 83 81/47 Intake & Output 02/26/18 02/26/18 07:00 19:00 Intake Total 2000 ml Output Total 100 ml Balance 1900 ml Intake Oral 0 ml IV Total 2000 ml Output Urine Total 30 ml Drainage Total 70 ml # Bowel Movements 0 Physical Exam CONSTITUTIONAL/GENERAL: This is a 57 year old gentlemen, looks fatigued. responsive, confused, lethargic TUBES/LINES/DRAINS: right central line, almaraz. SKIN: No jaundice, rashes, or lesions. Ecchymoses on upper extremities. No wounds seen anteriorly. Skin temperature appropriate. Not diaphoretic. HEAD: Atraumatic. Normocephalic. EYES: Pupils equal and round and reactive. Extraocular motions intact. No scleral icterus. No injection or drainage. Fundi not examined. ENT: Hearing grossly normal. Nose without bleeding or purulent drainage. Throat without visible erythema, exudates, masses, or lesions. NECK: Trachea midline. Supple, nontender. No palpable thyroid enlargement or nodularity. CARDIOVASCULAR: Regular rate and rhythm without murmurs, gallops, or rubs. No JVD. Peripheral pulses symmetric. RESPIRATORY/CHEST: Symmetric, unlabored respirations. Faint rhonchi. GASTROINTESTINAL: Abdomen soft, distended. Bowel sounds present. Cholesectomy tube in place. GENITOURINARY: Without palpable bladder distension. Almaraz catheter in place. MUSCULOSKELETAL: Extremities. lower extremitiy, feet have dressing, c/d/i LYMPHATICS: No palpable cervical or supraclavicular adenopathy. NEUROLOGICAL: Awake and alert. Motor and sensory grossly within normal limits. confused. Moves all extremities. Lethargy at times. PSYCHIATRIC: Some anxiety, confusion. Diagnostic Tests Laboratory Laboratory Tests Test 02/23/18 11:15 02/24/18 06:45 02/24/18 12:35 02/24/18 17:40 White Blood Count 9.0 TH/MM3 (4.0-11.0) 9.5 TH/MM3 (4.0-11.0) Red Blood Count 2.72 MIL/MM3 (4.50-5.90) 2.75 MIL/MM3 (4.50-5.90) Hemoglobin 7.6 GM/DL (13.0-17.0) 7.9 GM/DL (13.0-17.0) Hematocrit 24.0 % (39.0-51.0) 24.7 % (39.0-51.0) Mean Corpuscular Volume 88.2 FL (80.0-100.0) 89.9 FL (80.0-100.0) Mean Corpuscular Hemoglobin 28.1 PG (27.0-34.0) 28.8 PG (27.0-34.0) Mean Corpuscular Hemoglobin Concent 31.8 % (32.0-36.0) 32.0 % (32.0-36.0) Red Cell Distribution Width 15.9 % (11.6-17.2) 15.8 % (11.6-17.2) Platelet Count 283 TH/MM3 (150-450) 285 TH/MM3 (150-450) Mean Platelet Volume 10.4 FL (7.0-11.0) 10.2 FL (7.0-11.0) Neutrophils (%) (Auto) 63.8 % (16.0-70.0) 63.9 % (16.0-70.0) Lymphocytes (%) (Auto) 21.9 % (9.0-44.0) 21.8 % (9.0-44.0) Monocytes (%) (Auto) 10.6 % (0.0-8.0) 10.4 % (0.0-8.0) Eosinophils (%) (Auto) 2.6 % (0.0-4.0) 3.2 % (0.0-4.0) Basophils (%) (Auto) 1.1 % (0.0-2.0) 0.7 % (0.0-2.0) Neutrophils # (Auto) 5.7 TH/MM3 (1.8-7.7) 6.1 TH/MM3 (1.8-7.7) Lymphocytes # (Auto) 2.0 TH/MM3 (1.0-4.8) 2.1 TH/MM3 (1.0-4.8) Monocytes # (Auto) 1.0 TH/MM3 (0-0.9) 1.0 TH/MM3 (0-0.9) Eosinophils # (Auto) 0.2 TH/MM3 (0-0.4) 0.3 TH/MM3 (0-0.4) Basophils # (Auto) 0.1 TH/MM3 (0-0.2) 0.1 TH/MM3 (0-0.2) CBC Comment AUTO DIFF AUTO DIFF Differential Total Cells Counted 100 100 Neutrophils % (Manual) 70 % (16-70) 72 % (16-70) Band Neutrophils % 6 % (0-6) 4 % (0-6) Lymphocytes % 12 % (9-44) 13 % (9-44) Monocytes % 6 % (0-8) 4 % (0-8) Eosinophils % 3 % (0-4) 5 % (0-4) Neutrophils # (Manual) 7.1 TH/MM3 (1.8-7.7) 7.4 TH/MM3 (1.8-7.7) Myelocytes 3 % (0-0) 2 % (0-0) Nucleated Red Blood Cells 35 /100 WBC (0-0) 14 /100 WBC (0-0) Differential Comment FINAL DIFF MANUAL FINAL DIFF MANUAL Platelet Estimate NORMAL (NORMAL) NORMAL (NORMAL) Platelet Morphology Comment ENLARGED (NORMAL) NORMAL (NORMAL) Target Cells 1+ (NORMAL) 2+ (NORMAL) Red Cell Morphology Comment (NORMAL) (NORMAL) Blood Urea Nitrogen 16 MG/DL (7-18) 20 MG/DL (7-18) Creatinine 2.94 MG/DL (0.60-1.30) 3.55 MG/DL (0.60-1.30) Random Glucose 156 MG/DL (74-106) 189 MG/DL (74-106) Total Protein 7.6 GM/DL (6.4-8.2) 7.6 GM/DL (6.4-8.2) Albumin 1.7 GM/DL (3.4-5.0) 1.6 GM/DL (3.4-5.0) Calcium Level 7.6 MG/DL (8.5-10.1) 7.5 MG/DL (8.5-10.1) Magnesium Level 2.1 MG/DL (1.5-2.5) 2.1 MG/DL (1.5-2.5) Alkaline Phosphatase 422 U/L (45-117) 395 U/L (45-117) Aspartate Amino Transf (AST/SGOT) 114 U/L (15-37) 104 U/L (15-37) Alanine Aminotransferase (ALT/SGPT) 14 U/L (12-78) 9 U/L (12-78) Total Bilirubin 0.4 MG/DL (0.2-1.0) 0.4 MG/DL (0.2-1.0) Sodium Level 134 MEQ/L (136-145) 133 MEQ/L (136-145) Potassium Level 3.5 MEQ/L (3.5-5.1) 3.8 MEQ/L (3.5-5.1) Chloride Level 99 MEQ/L (98-107) 99 MEQ/L (98-107) Carbon Dioxide Level 25.1 MEQ/L (21.0-32.0) 23.5 MEQ/L (21.0-32.0) Anion Gap 10 MEQ/L (5-15) 11 MEQ/L (5-15) Estimat Glomerular Filtration Rate 22 ML/MIN (>89) 18 ML/MIN (>89) Polychromasia 2.5 % (0.0-1.9) Basophilic Stippling FAINT (NORMAL) Phosphorus Level 3.2 MG/DL (2.5-4.9) Urine Color DARK-BROWN (YELLW/STRAW) Urine Turbidity CLOUDY (CLEAR) Urine pH 5.5 (5.0-8.5) Urine Specific [place] 1.025 (1.002-1.035) Urine Protein 100 mg/dL (NEG-TRACE) Urine Glucose (UA) NEG mg/dL (NEG) Urine Ketones TRACE mg/dL (NEG) Urine Occult Blood LARGE (NEG) Urine Nitrite NEG (NEG) Urine Bilirubin NEG (NEG) Urine Urobilinogen LESS THAN 2.0 MG/DL (LESS Urine Leukocyte Esterase LARGE (NEG) Urine RBC 142 /hpf (0-3) Urine WBC /hpf (0-5) Urine WBC Clumps MANY (NONE) Urine Squamous Epithelial Cells 8 /hpf (0-5) Urine Bacteria MOD /hpf (NONE) Urine Hyaline Casts 54 /lpf (RARE) Urine Granular Casts 18 /lpf (NONE) Urine White Blood Cell Casts 18 /lpf (NONE) Urine Mucus MANY /lpf (OCC) Urine Yeast (Budding) FEW (NONE) Microscopic Urinalysis Comment CATH-CULTURE IND Prothrombin Time 21.2 SEC (9.8-11.6) Prothromb Time International Ratio 2.1 RATIO Activated Partial Thromboplast Time 39.0 SEC (24.3-30.1) Test 02/24/18 19:50 02/25/18 04:22 02/25/18 15:55 02/26/18 04:30 Hemoglobin 8.5 GM/DL (13.0-17.0) 8.6 GM/DL (13.0-17.0) 8.3 GM/DL (13.0-17.0) Hematocrit 26.2 % (39.0-51.0) 27.2 % (39.0-51.0) 26.2 % (39.0-51.0) White Blood Count 12.0 TH/MM3 (4.0-11.0) 11.8 TH/MM3 (4.0-11.0) Red Blood Count 3.03 MIL/MM3 (4.50-5.90) 2.87 MIL/MM3 (4.50-5.90) Mean Corpuscular Volume 90.0 FL (80.0-100.0) 91.2 FL (80.0-100.0) Mean Corpuscular Hemoglobin 28.5 PG (27.0-34.0) 28.8 PG (27.0-34.0) Mean Corpuscular Hemoglobin Concent 31.7 % (32.0-36.0) 31.5 % (32.0-36.0) Red Cell Distribution Width 15.8 % (11.6-17.2) 16.3 % (11.6-17.2) Platelet Count 279 TH/MM3 (150-450) 262 TH/MM3 (150-450) Mean Platelet Volume 10.4 FL (7.0-11.0) 10.5 FL (7.0-11.0) Neutrophils (%) (Auto) 74.2 % (16.0-70.0) 72.7 % (16.0-70.0) Lymphocytes (%) (Auto) 14.8 % (9.0-44.0) 16.1 % (9.0-44.0) Monocytes (%) (Auto) 8.3 % (0.0-8.0) 9.1 % (0.0-8.0) Eosinophils (%) (Auto) 1.9 % (0.0-4.0) 1.4 % (0.0-4.0) Basophils (%) (Auto) 0.8 % (0.0-2.0) 0.7 % (0.0-2.0) Neutrophils # (Auto) 8.9 TH/MM3 (1.8-7.7) 8.6 TH/MM3 (1.8-7.7) Lymphocytes # (Auto) 1.8 TH/MM3 (1.0-4.8) 1.9 TH/MM3 (1.0-4.8) Monocytes # (Auto) 1.0 TH/MM3 (0-0.9) 1.1 TH/MM3 (0-0.9) Eosinophils # (Auto) 0.2 TH/MM3 (0-0.4) 0.2 TH/MM3 (0-0.4) Basophils # (Auto) 0.1 TH/MM3 (0-0.2) 0.1 TH/MM3 (0-0.2) CBC Comment AUTO DIFF AUTO DIFF Differential Total Cells Counted 100 100 Neutrophils % (Manual) 84 % (16-70) 69 % (16-70) Band Neutrophils % 2 % (0-6) 8 % (0-6) Lymphocytes % 4 % (9-44) 8 % (9-44) Monocytes % 6 % (0-8) 8 % (0-8) Eosinophils % 2 % (0-4) 2 % (0-4) Basophils % 1 % (0-2) Neutrophils # (Manual) 10.4 TH/MM3 (1.8-7.7) 9.7 TH/MM3 (1.8-7.7) Myelocytes 1 % (0-0) 4 % (0-0) Nucleated Red Blood Cells 8 /100 WBC (0-0) 7 /100 WBC (0-0) Differential Comment FINAL DIFF MANUAL FINAL DIFF MANUAL Platelet Estimate NORMAL (NORMAL) NORMAL (NORMAL) Platelet Morphology Comment NORMAL (NORMAL) NORMAL (NORMAL) Red Cell Morphology Comment (NORMAL) (NORMAL) Prothrombin Time 22.8 SEC (9.8-11.6) Prothromb Time International Ratio 2.3 RATIO Blood Urea Nitrogen 25 MG/DL (7-18) 30 MG/DL (7-18) Creatinine 4.15 MG/DL (0.60-1.30) 4.54 MG/DL (0.60-1.30) Random Glucose 191 MG/DL (74-106) 162 MG/DL (74-106) Total Protein 7.8 GM/DL (6.4-8.2) 7.7 GM/DL (6.4-8.2) 7.6 GM/DL (6.4-8.2) Albumin 1.8 GM/DL (3.4-5.0) 1.8 GM/DL (3.4-5.0) Calcium Level 7.5 MG/DL (8.5-10.1) 7.9 MG/DL (8.5-10.1) 7.5 MG/DL (8.5-10.1) Phosphorus Level 4.0 MG/DL (2.5-4.9) 4.9 MG/DL (2.5-4.9) Magnesium Level 2.1 MG/DL (1.5-2.5) 2.1 MG/DL (1.5-2.5) Alkaline Phosphatase 424 U/L (45-117) 380 U/L (45-117) Aspartate Amino Transf (AST/SGOT) 82 U/L (15-37) 71 U/L (15-37) Alanine Aminotransferase (ALT/SGPT) 11 U/L (12-78) 11 U/L (12-78) Total Bilirubin 0.6 MG/DL (0.2-1.0) 0.6 MG/DL (0.2-1.0) Sodium Level 131 MEQ/L (136-145) 131 MEQ/L (136-145) Potassium Level 3.9 MEQ/L (3.5-5.1) 4.3 MEQ/L (3.5-5.1) Chloride Level 96 MEQ/L (98-107) 96 MEQ/L (98-107) Carbon Dioxide Level 21.3 MEQ/L (21.0-32.0) 20.4 MEQ/L (21.0-32.0) Anion Gap 14 MEQ/L (5-15) 15 MEQ/L (5-15) Estimat Glomerular Filtration Rate 15 ML/MIN (>89) 14 ML/MIN (>89) Protein Corrected Calcium 7.7 MG/DL (8.5-10.1) Metamyelocytes 1 % (0-1) Polychromasia 2.7 % (0.0-1.9) Target Cells 1+ (NORMAL) Total Creatine Kinase 23 U/L (39-308) Result Diagram: 02/26/1842902/26/180 Microbiology Microbiology Date/Time Source Procedure Growth Status 02/23/18 19:27 Blood Peripheral Aerobic Blood Culture - Preliminary NO GROWTH IN 2 DAYS Resulted 02/23/18 19:27 Blood Peripheral Anaerobic Blood Culture - Preliminary NO GROWTH IN 2 DAYS Resulted 02/23/18 19:20 Blood Peripheral Aerobic Blood Culture - Preliminary NO GROWTH IN 2 DAYS Resulted 02/23/18 19:20 Blood Peripheral Anaerobic Blood Culture - Preliminary NO GROWTH IN 2 DAYS Resulted 02/25/18 18:22 Fluid Other Gram Stain - Final Resulted 02/25/18 18:22 Fluid Other Body Fluid Culture Pending Resulted 02/24/18 12:35 Urine Catheterized Urine Urine Culture - Preliminary Yeast Species Resulted Imaging Last Impressions Percutaneous Cholangiogram 02/25/18 Signed Impressions: CONCLUSION: 1. Uncomplicated percutaneous cholecystostomy as above. Thick inspissated bile noted. A sample sent for microbiological evaluation. Gall Bladder Ultrasound 02/25/18 Signed Impressions: CONCLUSION: 1. Concern for acute cholecystitis. Abdomen Ultrasound 02/25/18 Signed Impressions: CONCLUSION: 1. Small amount of ascites. 2. Insufficient amount of fluid for paracentesis. Hepatobiliary Scan Nuclear Medicine 02/24/18 Signed Impressions: CONCLUSION: 1. Abnormal hepatic kinetics and delayed biliary intestinal transit both of wh ich may be accounted for by parenchymal liver disease. 2. Nonvisualization of the gallbladder. It is uncertain whether this represent s obstruction of the gallbladder or slow excretion of radiotracer. Abdomen/Pelvis CT 02/23/181945 Signed Impressions: CONCLUSION: 1. Worsening moderate bilateral pleural effusions, severe anasarca and mild as cites compared with February 17. 2. Stable pericholecystic fluid and gallbladder wall thickening probably relat ed to anasarca. 3. Stable umbilical hernia. No bowel obstruction or free air. Catheter Placement X-Ray 02/19/18 Signed Impressions: CONCLUSION: Uncomplicated ultrasound and fluoroscopic guided central venous dialysis cathet er placement as above. Renal Ultrasound 02/18/18 Signed Impressions: CONCLUSION: 1. Suspected increased echotexture of the renal parenchyma likely representing medical renal disease. No hydronephrosis is present. 2. There is trace free fluid around the liver. Chest X-Ray 02/17/18 Signed Impressions: CONCLUSION: 1. Cardiomegaly with plain film findings suggesting some degree of vascular co ngestion or volume overload. 2. Left basilar consolidation/effusion. Assessment and Plan Disease Oriented Problem List: (1) Acute on chronic renal failure (2) Sepsis (3) Ulcer of left foot due to type 2 diabetes mellitus (4) Chronic disease anemia (5) Pleural effusion (6) History of schizophrenia Symptom Scale: (1) Pain 0-10 Scale: Unable to quantify (too confused today.) Pertinent Non-Medical Issues Psychosocial:Pt not . no children. Lives with parents. 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 Spiritual: zoroastrianism, not alevism Legal: Proxy would be pt's parents. Ethical issues impacting care: none. Important Contacts Maryuri [phone] (sister RN) Rosana Yanes [phone] or [phone] (mother) Alexei Yanes [phone] or [phone] (father) has another sister. Prognosis 57 year old with chronic wounds, sepsis, acute on chronic renal failure. Prognosis is guarded. Should he survive current hospitalization, he is a risk for repeated hospitalization for sepsis, renal failure, and general debility. Overall functional level as well as compliance is poor. Code Status: Full Code Plan == Capacity- he is confused and does not have capacity to make medical decisions. I believe capacity will fluctuate over the course of this hospitalization. == Health care decision maker- will be patient's parents by [place]. Patient has no children, not . == Code: Full. == Health care decision maker- Not , no children, under [place] stat[place] it will be pt's parents who are proxy. He decline signing health care surrogate form today. == goals of treatment: I have had conversations with pt's mother; and reviewed medical team concern about general decline and overall prognosis. . Mother's goals are aggressive. * mother is alevism and beliefs in miracles * She wants to continue all aggressive care possible. * Full Code. * Goals are unlikely to change for the time being. * At this time mother is not receptive to palliative care. She has no further questions Symptom: Pain- complains mostly of back pain, and not much about his wounds. Dilaudid appears effective. Continue dilaudid. We cannot liberalize pain meds at this time, hypotensive. Palliative care will continue to follow peripherally, we are available should goals of treatment change as clinical condition changes.. Attestation To help prompt me to consider important information that might be impacting today's encounter and assessment, information from prior notes written by myself or my colleagues may have been "brought forward" into today's note. My signature on this note, however, is an attestation that I personally performed the exam, history, and/or decision-making noted today, and, unless otherwise indicated, the interactions with patient, family, and staff as well as the review of records all occurred today. I also attest that the listed assessment and stated plan reflect my best clinical judgment today based on the combination of historical information, prior notes, and today's exam/ interactions. When time spent is documented, it refers only to time spent today by the signer, or if indicated, combined time spent today by collaborating physician/nurse practitioner. Lon Darden MD Feb 26, 2018 09:42
--- NOTE | 2018-02-26 10:38 | HHI.GIFU ---
Subjective Remarks Pt resting in bed, receiving dialysis Reports some improvement in abdominal pain since percutaneous cholecystostomy drain placed yesterday Denies nausea, vomiting (Skylar Sykes) Objective Vitals I&O Vital Signs Date Time Temp Pulse Resp B/P (MAP) Pulse Ox O2 Delivery O2 Flow Rate FiO2 02/26/18 08:00 85 02/26/18 08:00 97.5 85 20 97/57 (70) 92 02/26/18 07:00 94 Nasal Cannula 5.00 02/26/18 06:26 83 96/55 02/26/18 06:00 84 02/26/18 04:00 84 02/26/18 04:00 97.5 84 20 95/54 (68) 92 02/26/18 02:00 83 02/26/18 01:19 83 88/49 02/26/18 00:00 97.9 86 19 100/53 (69) 92 02/26/18 00:00 86 02/25/18 22:00 83 02/25/18 20:00 81 02/25/18 20:00 97.5 81 16 92/55 (67) 100 02/25/18 19:56 81 99/30 02/25/18 19:00 99 Non-Rebreather 15.00 02/25/18 17:00 83 02/25/18 16:29 93 Nasal Cannula 4.00 02/25/18 16:00 85 02/25/18 16:00 97.4 85 21 91/46 (61) 91 02/25/18 15:00 86 02/25/18 14:00 84 02/25/18 13:00 85 02/25/18 12:00 84 02/25/18 12:00 97.2 84 19 99/50 (66) 91 02/25/18 11:00 84 I/O 02/25/18 02/25/18 02/25/18 02/26/18 02/26/18 02/26/18 07:00 15:00 23:00 07:00 15:00 23:00 Intake Total 550 ml 300 ml 800 ml 1600 ml Output Total 50 ml 25 ml 100 ml Balance 500 ml 300 ml 775 ml 1500 ml Intake Oral 300 ml 150 ml 0 ml IV Total 250 ml 300 ml 650 ml 1600 ml Output Urine Total 50 ml 25 ml 30 ml Drainage Total 70 ml # Bowel Movements 0 0 Laboratory Laboratory Tests Test 02/25/18 15:55 02/26/18 04:30 Calcium Level 7.9 7.5 Protein Corrected Calcium 7.7 Total Protein 7.7 7.6 White Blood Count 11.8 Red Blood Count 2.87 Hemoglobin 8.3 Hematocrit 26.2 Mean Corpuscular Volume 91.2 Mean Corpuscular Hemoglobin 28.8 Mean Corpuscular Hemoglobin Concent 31.5 Red Cell Distribution Width 16.3 Platelet Count 262 Mean Platelet Volume 10.5 Neutrophils (%) (Auto) 72.7 Lymphocytes (%) (Auto) 16.1 Monocytes (%) (Auto) 9.1 Eosinophils (%) (Auto) 1.4 Basophils (%) (Auto) 0.7 Neutrophils # (Auto) 8.6 Lymphocytes # (Auto) 1.9 Monocytes # (Auto) 1.1 Eosinophils # (Auto) 0.2 Basophils # (Auto) 0.1 CBC Comment AUTO DIFF Differential Total Cells Counted 100 Neutrophils % (Manual) 69 Band Neutrophils % 8 Lymphocytes % 8 Monocytes % 8 Eosinophils % 2 Neutrophils # (Manual) 9.7 Metamyelocytes 1 Myelocytes 4 Nucleated Red Blood Cells 7 Differential Comment FINAL DIFF MANUAL Platelet Estimate NORMAL Platelet Morphology Comment NORMAL Polychromasia 2.7 Target Cells 1+ Red Cell Morphology Comment Blood Urea Nitrogen 30 Creatinine 4.54 Random Glucose 162 Albumin 1.8 Phosphorus Level 4.9 Magnesium Level 2.1 Alkaline Phosphatase 380 Aspartate Amino Transf (AST/SGOT) 71 Alanine Aminotransferase (ALT/SGPT) 11 Total Bilirubin 0.6 Sodium Level 131 Potassium Level 4.3 Chloride Level 96 Carbon Dioxide Level 20.4 Anion Gap 15 Estimat Glomerular Filtration Rate 14 Total Creatine Kinase 23 Date/Time Source Procedure Growth Status 02/23/18 19:27 Blood Peripheral Aerobic Blood Culture - Preliminary NO GROWTH IN 2 DAYS Resulted 02/23/18 19:27 Blood Peripheral Anaerobic Blood Culture - Preliminary NO GROWTH IN 2 DAYS Resulted 02/25/18 18:22 Fluid Other Gram Stain - Final Resulted 02/25/18 18:22 Fluid Other Body Fluid Culture Pending Resulted 02/24/18 12:35 Urine Catheterized Urine Urine Culture - Preliminary Yeast Species Resulted 02/18/18 11:00 Wound Foot Gram Stain - Final Complete 02/18/18 11:00 Wound Culture - Final Klebsiella Pneumoniae Esbl Pos Complete Imaging Last Impressions Gall Bladder Ultrasound 6/12/18 0000 Signed Impressions: CONCLUSION: 1. Concern for acute cholecystitis. Abdomen Ultrasound 02/25/18 Signed Impressions: CONCLUSION: 1. Small amount of ascites. 2. Insufficient amount of fluid for paracentesis. Hepatobiliary Scan Nuclear Medicine 02/24/18 Signed Impressions: CONCLUSION: 1. Abnormal hepatic kinetics and delayed biliary intestinal transit both of wh ich may be accounted for by parenchymal liver disease. 2. Nonvisualization of the gallbladder. It is uncertain whether this represent s obstruction of the gallbladder or slow excretion of radiotracer. Abdomen/Pelvis CT 02/23/181945 Signed Impressions: CONCLUSION: 1. Worsening moderate bilateral pleural effusions, severe anasarca and mild as cites compared with February 17. 2. Stable pericholecystic fluid and gallbladder wall thickening probably relat ed to anasarca. 3. Stable umbilical hernia. No bowel obstruction or free air. Catheter Placement X-Ray 02/19/18 Signed Impressions: CONCLUSION: Uncomplicated ultrasound and fluoroscopic guided central venous dialysis cathet er placement as above. Renal Ultrasound 02/18/18 Signed Impressions: CONCLUSION: 1. Suspected increased echotexture of the renal parenchyma likely representing medical renal disease. No hydronephrosis is present. 2. There is trace free fluid around the liver. Chest X-Ray 02/17/18 Signed Impressions: CONCLUSION: 1. Cardiomegaly with plain film findings suggesting some degree of vascular co ngestion or volume overload. 2. Left basilar consolidation/effusion. Physical Exam HEENT: Normocephalic; atraumatic CHEST: Even/unlabored CARDIAC: RRR ABDOMEN: Distended, semi-firm, mild diffuse tenderness, bowel sounds active, percutaneous cholecystostomy drain with small amount of bile cored drainage SKIN: Normal; no rash; no jaundice. PLATFORM SUPERVISOR: Alert (Skylar Sykes JAIL OFFICER) Assessment and Plan Plan Assessment: - Abdominal pain, reports pain is in both flanks and radiates around to his back. Also complaining of abdominal swelling, states he feels the fluid is so high that it is up to his throat. Denies nausea, vomiting. Can not recall BMs, one documented in chart yesterday. Recent C Diff in January. EGD and colonoscopy by our service in February 2017 --> Significant amount of stool present throughout entire examined colon, incomplete study secondary to poor prep. Normal esophagus, food residue in the entire examined stomach, medium sized ulcer in the gastric antrum. CT abdomen and pelvis WO IV contrast (02/23) Worsening moderate bilateral pleural effusions, severe anasarca and mild ascites compared with February 17. Stable pericholecystic fluid and gallbladder wall thickening probably related to anasarca. Stable umbilical hernia. No bowel obstruction or free air. - Elevated LFTs- was previously drinking daily prior to recent admission and discharge and is currently in rehab facility Previous liver work up: Hepatitis C antibody positive, but genotype and quant undetectable AAT-245 Ceruloplasmin-43 VICKIE positive, titer 1:320 Pattern Nucleolar AMA less than 20 AMA negative Ferritin-2320 Iron-63 TIBC-64 %sat-97.8 (02/25) Pt with continued side and back pain. US abdomen shows insufficient fluid for paracentesis. HIDA scan pending. HFE pending (02/26) Pt reports some improvement in pain today. GB US revealed concern for acute cholecystitis. HIDA scan Abnormal hepatic kinetics and delayed biliary intestinal transit both of which may be accounted for by parenchymal liver disease. Nonvisualization of the gallbladder. It is uncertain whether this represents obstruction of the gallbladder or slow excretion of radiotracer. S/P percutaneous cholecystostomy drain placed by IR yesterday, 80 mL of thick , dark inspissated bile removed, sample sent to micro. Mild leukocytosis- pt on Meropenem and Daptomycin. Pt hypotensive yesterday, ? secondary to septic shock, now on Vasopressin. LFTs continue to trend down, HFE pending. Plan: Percutaneous cholecystostomy drain per [facility] Continue abx Monitor LFTs- continue to trend down HFE pending Our service will sign off, please reconsult as needed Have pt follow up with GI after DC Pt has been seen and examined by myself and Dr. Rajput and this note is written on his behalf (Skylar Sykes) Physician Comments Agree with above assessment and plan. Please reconsult again if needed. (Wali Rajput MD) Skylar Sykes Feb 26, 2018 10:38 Wali Rajput MD Feb 26, 2018 11:21
[2018-02-26] MEDS: ALBUMIN 5% INJ 250 ML IV SCH ×2 (11:00→23:06)
[2018-02-26] MEDS: EPOETIN ALFA 10,000 UNITS/ML VIAL IV PUSH PRN (11:01)
[2018-02-26] MEDS: HEPARIN SODIUM - IV 10,000 UNITS/10 ML VIAL PRN (11:02)
[2018-02-26] MEDS: GENTAMICIN SULFATE 20 MG/2 ML VIAL OTHER PRN (11:02)
--- NOTE | 2018-02-26 11:20 | HHI.NPPN ---
Subjective Renal Failure: Acute Interval History Still looks ill. A line and cholecystostomy tube placed yesterday. On two pressors. Seen during dialysis. (Laura Quesada) Review of Systems General Constitutional: Fatigue (Laura Quesada) Gastrointestinal Gastrointestinal: Nausea & Vomiting (Laura Quesada) Objective Data Data Vital Signs Date Time Temp Pulse Resp B/P (MAP) Pulse Ox O2 Delivery O2 Flow Rate FiO2 02/26/18 08:00 85 02/26/18 08:00 97.5 85 20 97/57 (70) 92 02/26/18 07:00 94 Nasal Cannula 5.00 02/26/18 06:26 83 96/55 02/26/18 06:00 84 02/26/18 04:00 84 02/26/18 04:00 97.5 84 20 95/54 (68) 92 02/26/18 02:00 83 02/26/18 01:19 83 88/49 02/26/18 00:00 97.9 86 19 100/53 (69) 92 02/26/18 00:00 86 02/25/18 22:00 83 02/25/18 20:00 81 02/25/18 20:00 97.5 81 16 92/55 (67) 100 02/25/18 19:56 81 99/30 02/25/18 19:00 99 Non-Rebreather 15.00 02/25/18 17:00 83 02/25/18 16:29 93 Nasal Cannula 4.00 02/25/18 16:00 85 02/25/18 16:00 97.4 85 21 91/46 (61) 91 02/25/18 15:00 86 02/25/18 14:00 84 02/25/18 13:00 85 02/25/18 12:00 84 02/25/18 12:00 97.2 84 19 99/50 (66) 91 (Laura Quesada) -: 02/26/18 0430 02/26/18 0430 Microbiology 02/25/18 Gram Stain - Final, Resulted 02/25/18 Body Fluid Culture, Resulted Pending Imaging Last 72 hours Impressions Gall Bladder Ultrasound 02/25/18 0000 Signed Impressions: CONCLUSION: 1. Concern for acute cholecystitis. Abdomen Ultrasound 02/25/18 0000 Signed Impressions: CONCLUSION: 1. Small amount of ascites. 2. Insufficient amount of fluid for paracentesis. Hepatobiliary Scan Nuclear Medicine 02/24/18 0000 Signed Impressions: CONCLUSION: 1. Abnormal hepatic kinetics and delayed biliary intestinal transit both of wh ich may be accounted for by parenchymal liver disease. 2. Nonvisualization of the gallbladder. It is uncertain whether this represent s obstruction of the gallbladder or slow excretion of radiotracer. Abdomen/Pelvis CT 02/23/18 194 Signed Impressions: CONCLUSION: 1. Worsening moderate bilateral pleural effusions, severe anasarca and mild as cites compared with February 17. 2. Stable pericholecystic fluid and gallbladder wall thickening probably relat ed to anasarca. 3. Stable umbilical hernia. No bowel obstruction or free air. Tubes & Lines: Vas-Cath, Chirinos Drip Comment Levophed, vasopressin (Laura Quesada) Physical Exam General Appearance: No Acute Distress, Malnourished Appearance Remarks chronically ill appearing (Laura Quesada) Eyes Eye Exam: Pupils Equal, Pupils Reactive (Laura Quesada) Neck Neck Exam: Neck Supple (Laura Quesada) Pulmonary Resp Exam: Clear Bilaterally, Breath Sounds Equal (Laura Quesada) Cardiology CV Exam: Regular, Normal Sinus Rhythm (Laura Quesada) Gastrointestinal/Abdomen GI Exam: Soft, Non-Tender, Distended GI Remarks cholecystostomy tube (Laura Quesada) Musculoskeletal MS Exam: Joints Intact, Atrophy, Unable to Ambulate (Laura Quesada) Integumentary Skin Exam: Warm, Dry Skin Remarks multiple wounds on feet, erythema, open blisters noted bilaterally (Laura Quesada) Extremeties Extremities Exam: No Edema, Pedal Pulses Palpable (Laura Quesada) Neurologic Neuro Exam: Alert, Awake, Oriented, Speech Clear, Moving All Extremities (Laura Quesada) Psychiatric Psych Exam: Appropriate Responses (Laura Quesada) Assessment/Plan Discussed Condition With: Patient Assessment Summary: BISHOP/Acute Renal Failure Electrolyte Assessment: Hyponatremia Problem List: (1) Acute kidney injury ICD Codes: N17.9 - Acute kidney failure, unspecified Plan: Oliguric renal failure. HD initiated 02/19 and 02/20. Hypotensive despite pressor support. Seen during dialysis today on a 3K, 350 BFR, goal 3L Chirinos placed, may have component of retention earlier in the week. Has Vas cath in place, most likely will need Perm cath at later date Obtain daily labs. HD MWF as needed. Maintain MAP > 65mmHg. On 30ml/hr of NS. If PO intake is adequate can stop fluids. Overall Prognosis is poor. It is unclear if he will need terminal gauger dialysis. Declined hospice suggestion. (2) Hyperkalemia ICD Codes: E87.5 - Hyperkalemia Plan: Improved with dialysis, monitor. 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 Stable, continue to monitor. (4) Anemia ICD Codes: D64.9 - Anemia, unspecified Status: Acute Plan: Given blood transfusion on admission On Epogen with HD Follow CBC Consider IV Venofer however he has evidence of sepsis. (5) DM (diabetes mellitus) ICD Codes: E11.9 - Type 2 diabetes mellitus without complications Status: Chronic Plan: Insulin coverage as needed, maintain blood sugar between 140 and 180. (6) Infected stasis ulcer ICD Codes: I83.209 - Varicose veins of unspecified lower extremity with both ulcer of unspecified site and inflammation Status: Acute Plan: Wound with klebsiella, sensitivity reviewed. Wound care following (7) UTI (urinary tract infection) ICD Codes: N39.0 - Urinary tract infection, site not specified Status: Acute Plan: see below (8) Sepsis ICD Codes: A41.9 - Sepsis, unspecified organism Status: Resolved Plan: ID following Has foot wounds and UTI Antibiotics include meropenem, daptomycin, Ancef, and micafungin Continue supportive care (9) Abdominal pain ICD Codes: R10.9 - Unspecified abdominal pain Status: Acute Plan: Elevated LFTs, HIDA taken. s/p cholecystectomy tube placement 02/25, will need to remain in place for 3 weeks minimum. (Laura Quesada) Plan patient was seen and examined. Looks very ill. Poor prognosis. Will not tolerate outpatient dialysis most likely. Seen on 02/26/18 (Shaun Mcmahon MD) Problem Qualifiers (1) UTI (urinary tract infection): Qualified Codes: N30.00 - Acute cystitis without hematuria Laura Quesada Feb 26, 2018 11:20 Shaun Mcmahon MD Feb 27, 2018 09:07
[2018-02-26] MEDS: MEROPENEM INJ 500 MG in SODIUM CHLORIDE 0.9% INJ 100 ML IV SCH ×2 (12:19→19:59)
[2018-02-26] MEDS: ceFAZolin 1,000 MG/NS 100 ML IV SCH ×4 (12:20→21:57)
--- NOTE | 2018-02-26 12:30 | HHI.IDPN ---
Note Infectious Disease Note Patient is awake and alert. Feels better than yesterday. He remains on Levophed 12 mcg. Also on vasopressin. Percutaneous cholecystostomy tube placed yesterday. Afebrile. Culture of biliary fluid is pending. 57-year-old male, came from the retirement, brought into the hospital for abnormal routine labs showing anemia, hyponatremia, and worsening renal function. Patient was hospitalized last month and at that time he had group A strep septicemia as well as bilateral foot ulcers with infection. During that hospitalization he also had acute kidney injury and it improved but not to normal limits. Patient was discharged on IV Ancef for his sepsis, with plans to complete treatment on February 27. Antibiotics Cefazolin Daptomycin micafungin Metronidazole Past Medical History Bilateral foot cellulitis/abscess with group a strep septicemia (on cefazolin and Flagyl until 02/27/18 per infectious disease) Acute kidney injury requiring hemodialysis C. 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 Objective Vital Signs Date Time Temp Pulse Resp B/P (MAP) Pulse Ox O2 Delivery O2 Flow Rate FiO2 02/26/18 08:00 85 02/26/18 08:00 97.5 85 20 97/57 (70) 92 02/26/18 07:00 94 Nasal Cannula 5.00 02/26/18 06:26 83 96/55 02/26/18 06:00 84 02/26/18 04:00 84 02/26/18 04:00 97.5 84 20 95/54 (68) 92 02/26/18 02:00 83 02/26/18 01:19 83 88/49 02/26/18 00:00 97.9 86 19 100/53 (69) 92 02/26/18 00:00 86 02/25/18 22:00 83 02/25/18 20:00 81 02/25/18 20:00 97.5 81 16 92/55 (67) 100 02/25/18 19:56 81 99/30 02/25/18 19:00 99 Non-Rebreather 15.00 02/25/18 17:00 83 02/25/18 16:29 93 Nasal Cannula 4.00 02/25/18 16:00 85 02/25/18 16:00 97.4 85 21 91/46 (61) 91 02/25/18 15:00 86 02/25/18 14:00 84 02/25/18 13:00 85 Laboratory Tests Test 02/24/18 19:50 02/25/18 04:22 02/26/18 04:30 Hemoglobin 8.5 GM/DL 8.6 GM/DL 8.3 GM/DL Hematocrit 26.2 % 27.2 % 26.2 % White Blood Count 12.0 TH/MM3 11.8 TH/MM3 Red Blood Count 3.03 MIL/MM3 2.87 MIL/MM3 Mean Corpuscular Volume 90.0 FL 91.2 FL Mean Corpuscular Hemoglobin 28.5 PG 28.8 PG Mean Corpuscular Hemoglobin Concent 31.7 % 31.5 % Red Cell Distribution Width 15.8 % 16.3 % Platelet Count 279 TH/MM3 262 TH/MM3 Mean Platelet Volume 10.4 FL 10.5 FL Neutrophils (%) (Auto) 74.2 % 72.7 % Lymphocytes (%) (Auto) 14.8 % 16.1 % Monocytes (%) (Auto) 8.3 % 9.1 % Eosinophils (%) (Auto) 1.9 % 1.4 % Basophils (%) (Auto) 0.8 % 0.7 % Neutrophils # (Auto) 8.9 TH/MM3 8.6 TH/MM3 Lymphocytes # (Auto) 1.8 TH/MM3 1.9 TH/MM3 Monocytes # (Auto) 1.0 TH/MM3 1.1 TH/MM3 Eosinophils # (Auto) 0.2 TH/MM3 0.2 TH/MM3 Basophils # (Auto) 0.1 TH/MM3 0.1 TH/MM3 CBC Comment AUTO DIFF AUTO DIFF Differential Total Cells Counted 100 100 Neutrophils % (Manual) 84 % 69 % Band Neutrophils % 2 % 8 % Lymphocytes % 4 % 8 % Monocytes % 6 % 8 % Eosinophils % 2 % 2 % Basophils % 1 % Neutrophils # (Manual) 10.4 TH/MM3 9.7 TH/MM3 Myelocytes 1 % 4 % Nucleated Red Blood Cells 8 /100 WBC 7 /100 WBC Differential Comment FINAL DIFF MANUAL FINAL DIFF MANUAL Platelet Estimate NORMAL NORMAL Platelet Morphology Comment NORMAL NORMAL Red Cell Morphology Comment Metamyelocytes 1 % Polychromasia 2.7 % Target Cells 1+ Laboratory Tests Test 02/25/18 04:22 02/25/18 15:55 02/26/18 04:30 Blood Urea Nitrogen 25 MG/DL 30 MG/DL Creatinine 4.15 MG/DL 4.54 MG/DL Random Glucose 191 MG/DL 162 MG/DL Total Protein 7.8 GM/DL 7.7 GM/DL 7.6 GM/DL Albumin 1.8 GM/DL 1.8 GM/DL Calcium Level 7.5 MG/DL 7.9 MG/DL 7.5 MG/DL Phosphorus Level 4.0 MG/DL 4.9 MG/DL Magnesium Level 2.1 MG/DL 2.1 MG/DL Alkaline Phosphatase 424 U/L 380 U/L Aspartate Amino Transf (AST/SGOT) 82 U/L 71 U/L Alanine Aminotransferase (ALT/SGPT) 11 U/L 11 U/L Total Bilirubin 0.6 MG/DL 0.6 MG/DL Sodium Level 131 MEQ/L 131 MEQ/L Potassium Level 3.9 MEQ/L 4.3 MEQ/L Chloride Level 96 MEQ/L 96 MEQ/L Carbon Dioxide Level 21.3 MEQ/L 20.4 MEQ/L Anion Gap 14 MEQ/L 15 MEQ/L Estimat Glomerular Filtration Rate 15 ML/MIN 14 ML/MIN Protein Corrected Calcium 7.7 MG/DL Total Creatine Kinase 23 U/L Microbiology Date/Time Source Procedure Growth Status 02/23/18 19:27 Blood Peripheral Aerobic Blood Culture - Preliminary NO GROWTH IN 3 DAYS Resulted 02/23/18 19:27 Blood Peripheral Anaerobic Blood Culture - Preliminary NO GROWTH IN 3 DAYS Resulted 02/23/18 19:20 Blood Peripheral Aerobic Blood Culture - Preliminary NO GROWTH IN 3 DAYS Resulted 02/23/18 19:20 Blood Peripheral Anaerobic Blood Culture - Preliminary NO GROWTH IN 3 DAYS Resulted 02/25/18 18:22 Fluid Other Gram Stain - Final Resulted 02/25/18 18:22 Fluid Other Body Fluid Culture Pending Resulted 02/24/18 12:35 Urine Catheterized Urine Urine Culture - Final Kirstin Glabrata Complete Microbiology Date/Time Source Procedure Growth Status 02/23/18 19:27 Blood Peripheral Aerobic Blood Culture - Preliminary NO GROWTH IN 2 DAYS Resulted 02/23/18 19:27 Blood Peripheral Anaerobic Blood Culture - Preliminary NO GROWTH IN 2 DAYS Resulted 02/23/18 19:20 Blood Peripheral Aerobic Blood Culture - Preliminary NO GROWTH IN 2 DAYS Resulted 02/23/18 19:20 Blood Peripheral Anaerobic Blood Culture - Preliminary NO GROWTH IN 2 DAYS Resulted 02/24/18 12:35 Urine Catheterized Urine Urine Culture - Preliminary Yeast Species Resulted Imaging: Gall Bladder Ultrasound 02/25/18 Signed Impressions: CONCLUSION: 1. Concern for acute cholecystitis. Abdomen Ultrasound 02/25/18 Signed Impressions: CONCLUSION: 1. Small amount of ascites. 2. Insufficient amount of fluid for paracentesis. Abdomen/Pelvis CT 02/23/181945 Signed Impressions: CONCLUSION: 1. Worsening moderate bilateral pleural effusions, severe anasarca and mild as cites compared with February 17. 2. Stable pericholecystic fluid and gallbladder wall thickening probably relat ed to anasarca. 3. Stable umbilical hernia. No bowel obstruction or free air. Catheter Placement X-Ray 02/19/18 Signed Impressions: CONCLUSION: Uncomplicated ultrasound and fluoroscopic guided central venous dialysis cathet er placement as above. Renal Ultrasound 02/18/18 Signed Impressions: CONCLUSION: 1. Suspected increased echotexture of the renal parenchyma likely representing medical renal disease. No hydronephrosis is present. 2. There is trace free fluid around the liver. Chest X-Ray 02/17/18 Signed Impressions: CONCLUSION: 1. Cardiomegaly with plain film findings suggesting some degree of vascular co ngestion or volume overload. 2. Left basilar consolidation/effusion. Physical Exam GENERAL: Awake. No acute distress. HEENT: Pupils reactive to light. No icterus. Extraocular movements intact. Slightly dry oral mucosa. NECK: Supple without adenopathy or swelling. LUNGS: Clear to auscultation. HEART: Irregular S1 and S2. No murmurs or rubs or gallops. ABDOMEN: Distended, firm, increased bowel sounds. Non tenderness. EXTREMITIES: No clubbing or cyanosis. Trace edema of the feet. SKIN: No rash. NEUROLOGIC: No gross focal finding. PSYCH: Calm and cooperative. LINE: No evidence of infection, Dc on the right chest and right IJ Vas- Cath IMPRESSION Acute cholecystitis. abnormal LFTs. Group A Strep sepsis from foot infection, better Treatment is due to be completed on February 27. (+) wound C/S with Kleb ESBL+ - colonization, wound looks clean and no evidence of infection Kirstin UTI Renal failure, on HD Hx C diff colitis Sepsis. Requiring Levophed for hypotension. RECOMMENDATION Complete treatment for osteomyelitis with Ancef till February 27. Continue Meropenem Continue Daptomycin Continue Micafungin. Monitor blood cultures. Monitor biliary fluid culture. Monitor clinical status. Sen Washington MD Feb 26, 2018 12:30
--- NOTE | 2018-02-26 12:43 | RADRPT ---
EXAM DATE: 02/25/2018 6:50 PM EDT AGE/SEX: 57 years / Male INDICATIONS: Patient with acute cholecystitis in need of cholecystostomy. CLINICAL DATA: This is the patient's initial encounter. Patient reports that signs and symptoms have been present for 1 week and indicates a pain score of 6/10. MEDICAL/SURGICAL HISTORY: Hepatitis C. Hypertension. Diabetes. Bilateral foot cellulitis/abs cess.C-Diff.Anemia.Acute kidney injury requiring hemodialysis. Bilateral foot incision and drainage. COMPARISON: No prior exams available for comparison. FLUORO TIME (min): 0.5 IMAGE SERIES: 1 SEDATION TIME (min): 30 MEDICATION(S): 50mcg fentanyl (Sublimaze) IV DEVICE(S): 8 [employer]adian Locking Expel drainage catheter . . PROCEDURE: 1. Ultrasound guided puncture of the gallbladder. 2. Percutaneous cholangiogram. 3. Percutaneous cholecystostomy tube placement. 4. Conscious sedation with continuous EKG and oximetry monitoring. The risks, benefits and alternatives to the procedure were explained and verbal and written consent w as obtained. I explained to the patient the elevated risk of bleeding given his coagulopathy. The si te was prepped in sterile fashion. Full sterile technique was used, including cap, mask, sterile gavi ves and gown and a large sterile sheet. Hand hygiene and 2% chlorhexidine and/or betadine/alcohol pr ep was utilized per protocol for cutaneous antisepsis. Sterile gel and sterile probe cover were util ized for ultrasound guidance. The skin and subcutaneous tissues were infiltrated with local anesthet ic solution. Limited ultrasound of the gallbladder was performed prior to the start of the procedure. It is thick walled and distended. See that report separately. With ultrasound and fluoroscopic guidance the gallbladder was punctured with a micropuncture set and a 4 Chadian dilator was placed. Thick inspissated bile was noted with a sample sent to the lab for salima luation.. A 0.035 guidewire was placed within the gallbladder lumen and dilatation was performed to accept the prescribed catheter. Conscious sedation was performed with the prescribed dosages and duration as above in the presence of an independent trained radiology nurse to assist in the monitoring of the patient. EKG and oximetry remained stable throughout the procedure. The patient tolerated the procedure well and there were n o complications. The patient was sent to post anesthesia recovery in stable condition. CONCLUSION: 1. Uncomplicated percutaneous cholecystostomy as above. Thick inspissated bile noted. A sample sent for microbiological evaluation. Electronically signed by: Randall Berger MD 02/26/2018 12:42 PM EDT
[2018-02-26] MEDS: MICAFUNGIN INJ 100 MG in SODIUM CHLORIDE 0.9% INJ 100 ML IV SCH (13:37)
[2018-02-26] MEDS: SODIUM CHLOR 0.9% 1000 ML INJ 1,000 ML IV SCH (14:00)
[2018-02-26] MEDS: VASOPRESSIN 40 U/D5W 100 ML Titrate, Post Cardiac Surgery IV PRN ×2 (15:35)
[2018-02-26] MEDS: ACETAMINOPHEN/HYDROcodone 325 MG/10 MG TAB PO PRN ×2 (15:41→20:23)
--- NOTE | 2018-02-26 15:47 | HHI.CCPN ---
Subjective Remarks/Hospital Course 57-year-old male with a past medical history significant for bilateral foot cellulitis/abscess with group a strep septicemia (on cefazolin and Flagyl until 02/27/18 per infectious disease), acute kidney injury requiring hemodialysis, C. difficile, hepatitis C, anemia, diabetes mellitus, schizophrenia and hypertension has been admitted for the evaluation of abnormal labs. The patient currently resides in a assisted and had routine labs done showing anemia, worsening renal function and hyponatremia. The patient complains only of being very tired. He denies any dizziness or loss of consciousness. He was admitted to [facility] floor where he developed profound hypotension refractory to IV fluid bolus. He is admitted to ICU for aggressive IV fluid resuscitation and vasopressors treatment. A wound culture was obtained from the left foot ulcer is now reported as growing Klebsiella ESBL positive. Patient also had an abnormal urinalysis when he came in, and the urine culture is now reported as growing Kirstin glabrata. Subjective: 02/23: Afebrile. Patient sitting up in bed in no acute distress, responding to questions appropriately patient on third liter of IV fluid and remains on norepinephrine currently at 2 mics/minute. Patient's urine culture resulted Kirstin glabrata, however only 50,000 CFU but will initiate micafungin secondary to continued hypotension. Patient's midodrine was increased to 10 mg 3 times daily. Patient was noted to have low calcium level today which has been repleted. Electrolyte and CBC panel pending. 02/24: Last evening the patient complained of severe abdominal pain. CT of the abdomen and pelvis was performed, it showed pericholecystic fluid and gallbladder wall thickening. The patient continues to have abdominal pain the patient has been maintained on an n.p.o. status. HIDA scan pending. GI has been consulted. Patient's hemoglobin 7.9, continues to be hypotensive the patient has been typed and screened plan for transfusion of 1 unit of packed red blood cell. Patient continues on Levophed for vasopressor support. Palliative care was consulted to define goals of care, patient does not want hospice at this time. 02/25: Afebrile. The patient remains n.p.o. at this time. HIDA results pending. The patient required additional pressors now on vasopressin 0.04, in conjunction with norepinephrine at 12mcgs. INR trending upward, 2.3. Vitamin K 10 mg IV 1 dose. Urine culture revealed yeast. Discussed with Dr. Washington today, she knew current antibiotic coverage. 02/26: Afebrile. Patient noted with distended gallbladder on ultrasound last evening. Discussion with invasive radiologist, Dr. Forest Yanes, decision made to perform percutaneous cholecystostomy tube placement. Biliary cultures are pending. Overnight the patient continued to be hypotensive requiring vasopressin and norepinephrine. Patient underwent hemodialysis today with approximately 2.4 L removed. Patient continues on Micafungin,Meropenem, and Daptomycin Objective Vital Signs Date Time Temp Pulse Resp B/P (MAP) Pulse Ox O2 Delivery O2 Flow Rate FiO2 02/26/18 14:00 90 02/26/18 12:00 98.8 22 99/52 (68) 94 02/26/18 07:00 Nasal Cannula 5.00 Intake and Output 02/26/18 02/26/18 02/27/18 08:00 16:00 00:00 Intake Total 500 ml Output Total 100 ml 2700 ml Balance 400 ml -2700 ml Result Diagram: 02/26/18 0430 02/26/18 043 Other Results Microbiology Date/Time Source Procedure Growth Status 02/24/18 12:35 Urine Catheterized Urine Urine Culture - Final Kirstin Glabrata Complete Objective Remarks GENERAL: Well-nourished, well-developed patient sitting up in bed in no apparent distress SKIN: Warm and dry. HEAD: Normocephalic. EYES: No scleral icterus. No injection or drainage. NECK: Supple, trachea midline. No JVD or lymphadenopathy. CARDIOVASCULAR: Regular rate and rhythm without murmurs, gallops, or rubs. RESPIRATORY: Breath sounds equal bilaterally. No accessory muscle use. GASTROINTESTINAL: Abdomen soft, nondistended. Cholecystostomy tube draining biliary fluid MUSCULOSKELETAL: No cyanosis, or edema. Has ulcers both plantar aspect of feet, clean, with red tissue, no necrotic tissue, no purulence, no periwound erythema. Bilateral dressings on feet C/D I BACK: Nontender without obvious deformity. NEURO EXAM: GCS: 15 Mental Status: The patient is alert and oriented to person, place, and time with normal speech. Cranial Nerves: Visual acuity intact bilaterally. Visual coulter normal in all quadrants. Pupils are round, reactive to light. Extraocular movements are intact without ptosis. Hearing is normal bilaterally. Voice is normal. Tongue protrudes midline and moves symmetrically. GCS 15 A/P Assessment and Plan Plan by systems: Neurologic: Schizophrenia -Continue home dosing Thorazine -Neuro checks per ICU protocol Respiratory: Provide O2 1-4 L/min/nasal Incentive spirometry while awake Cardiovascular Septic shock Hypotension -Continue Levophed and Vasopressin to maintain MAP greater than 65 -Continue Midrin 10 mg 3 times daily -Albumin 5% BID FEN/GI: Abdominal pain Stable umbilical hernia Mild ascites Cholecystitis -Continue gentle hydration normal saline 30 cc/hr -02/23 CT abdomen and pelvis- stable pericholecystic fluid and gallbladder wall thickening -Scheduled sennosides twice daily -Bowel regimen -Hepatitis C IgG Ab positive - 02/25 Gallbladder ultrasound-Limited sonographic images of the gallbladder were performed. Other visceral structures were not evaluated at this time. The gallbladder is thick walled. It is distended. There is a questionable echogenic stone within the neck. A trace amount of pericholecystic fluid noted. S/P Percutaneous cholecystostomy tube placement - GI following Monitor Creatinine Kinase while on daptomycin Heme/ID: Septic shock Anemia -Begin gentle hydration NS 30cc/hr- Ok'd with Nephrology -IV antibiotics per ID -Kirstin glabrata> 100,00 in repeat specimen -02/24 urine culture-yeast -wound culture- Klebsiella ESBL, Group A Strep -02/24 type and screen -Transfuse 1 unit PRBC (02/24) -02/25 Biliary culture obtained , F/U results Endocrine: Diabetes mellitus -Initiate clear liquid diet, will resume 1800-calorie ADA when tolerated -Insulin sliding scale -- SSI Prophylaxis: GI Prophylaxis Famotidine BID DVT Prophylaxis -- SCDs Lines: Right infusaport/ verma. Peripheral IVs 2 Dispo: my billing statement This patient remains critically ill with one or more organ systems which are or may become a threat to life. I have spent in excess of 35 minutes discontinuously in the care and management of this patient. This time is exclusive of procedures, and includes, but is not limited to, evaluation of the patient, review of the medical record, discussions with family, consultants, nursing staff, or respiratory therapy, and documentation in the medical record. Discussed with patient's mother at bedside. All questions answered Physician Maddi Dominguez Addendum Remarks Shortly after midnight after the patient has been turned by RN, patient suffered PEA cardiac arrest. Patient was successfully resuscitated after intubation, 2 doses of epinephrine and 2 doses of sodium bicarbonate push. During the intubation it was noted that patient has a coffee-ground emesis. The GI service was reconsulted. Maddi Dominguez MD Feb 26, 2018 15:47 Best Portillo MD Feb 27, 2018 00:31
[2018-02-27] VITALS (23 sets, daily range): BP systolic 78–126; BP diastolic 10–56; PULSE 79–124; RESP 20–133; TEMP 97.1–99.5; O2SAT 85–100
--- NOTE | 2018-02-27 00:43 | RADRPT ---
EXAM DATE: 02/27/2018 12:29 AM EDT AGE/SEX: 57 years / Male INDICATIONS: ET TUBE PLACEMENT. CLINICAL DATA: This is the patient's subsequent encounter. Patient reports that signs and symptoms h ave been present for 1 week and indicates a pain score of 0/10. MEDICAL/SURGICAL HISTORY: Diabetes mellitus type II. Hypertension. . Infusaport. COMPARISON: [facility] [place], CHEST SINGLE AP, 02/17/2018. . FINDINGS: Single AP view the chest. Endotracheal tube is now seen with the tip 4.6 cm above the steve. Right I J central venous catheter is in place with the tip in the distal SVC. Previously identified right IJ central venous catheter also again seen. There is persistent bilateral pulmonary opacity with lower l maulik zone predominance. No significant interval change in the opacity. No evidence of pneumothorax. CONCLUSION: 1. Endotracheal tube and new right IJ central venous catheter now seen. 2. Persistent bilateral mid to lower lung zone pulmonary opacity indicating pulmonary edema versus c onsolidation. Electronically signed by: Ganga Luna MD 02/27/2018 12:42 AM EDT
[2018-02-27] MEDS: NOREPINEPHRINE-DEXTROSE DRIP 250 ML IV PRN ×5 (00:52→23:26)
[2018-02-27] MEDS: CHLORHEXIDINE GLUCONATE 2 % 1 PACK (2 CLOTHS)(taper/protocol) TOPICAL SCH (00:57)
[2018-02-27] MEDS ORDERED: MIDAZOLAM 50 MG/50 ML INJ 50 ML IV PRN (01:00)
[2018-02-27 01:07] LABS: AUTOMATED NEUTROPHIL # 14.8 TH/MM3 (1.8-7.7); BASOPHIL # 0.1 TH/MM3 (0-0.2); BASOPHIL % 0.5 % (0.0-2.0); EOSINOPHIL # 0.2 TH/MM3 (0-0.4); EOSINOPHIL % 0.9 % (0.0-4.0); HEMOGLOBIN 7.7 GM/DL (13.0-17.0); LYMPH % 16.9 % (9.0-44.0); LYMPHOCYTE # 3.4 TH/MM3 (1.0-4.8); MEAN CELL VOLUME 91.3 FL (80.0-100.0); MEAN CORPUSCULAR HEMOGLOBIN 28.2 PG (27.0-34.0); MEAN CORPUSCULAR HGB CONC 30.9 % (32.0-36.0); MEAN PLATELET VOLUME 10.7 FL (7.0-11.0); MONO % 7.9 % (0.0-8.0); MONOCYTE # 1.6 TH/MM3 (0-0.9); NEUT % 73.8 % (16.0-70.0); PLATELET COUNT 263 TH/MM3 (150-450); RED BLOOD COUNT 2.74 MIL/MM3 (4.50-5.90); RED CELL DISTRIBUTION WIDTH 16.5 % (11.6-17.2); WHITE BLOOD COUNT 20.1 TH/MM3 (4.0-11.0)
[2018-02-27 01:15] LABS: INTERNATIONAL NORMALIZED RATIO 2.3 RATIO
[2018-02-27] MEDS: PANTOPRAZOLE SODIUM 40 MG VIAL IV PUSH SCH ×2 (01:25→12:48)
[2018-02-27 01:36] LABS: BICARBONATE 19.9 MEQ/L (21.0-32.0); CALCIUM 7.2 MG/DL (8.5-10.1); CREATININE 3.45 MG/DL (0.60-1.30); MAGNESIUM 2.1 MG/DL (1.5-2.5); PHOSPHORUS 4.5 MG/DL (2.5-4.9); TOTAL BILIRUBIN ADULT 1.1 MG/DL (0.2-1.0); TOTAL PROTEIN 7.3 GM/DL (6.4-8.2); TROPONIN I 0.22 NG/ML (0.02-0.05)
[2018-02-27 01:38] LABS: CALCIUM-PROTEIN CORRECTED 7.2 MG/DL (8.5-10.1)
[2018-02-27 02:01] LABS: BANDS 4 % (0-6); CORRECTED NUCLEATED RBC 16 /100 WBC (0-0); LYMPHOCYTES 13 % (9-44); METAMYELOCYTES 2 % (0-1); MONOCYTES 8 % (0-8); NEUTROPHIL # MANUAL DIFF 15.9 TH/MM3 (1.8-7.7); NUCLEATED RED BLOOD CELL 16 (0-0); POLYS (SEG NEUTROPHILS) 73 % (16-70)
[2018-02-27 02:05] LABS: TARGET CELLS 1+ (NORMAL)
[2018-02-27 02:06] LABS: POLYCHROMASIA 3.5 % (0.0-1.9)
[2018-02-27] MEDS ORDERED: CALCIUM GLUCONATE INJ 2 GM in SODIUM CHLORIDE 0.9% INJ 100 ML IV ONE (04:45)
[2018-02-27] MEDS ORDERED: DOPamine 800 MG/500 ML INJ 500 ML IV PRN ×2 (04:45→05:00)
[2018-02-27] MEDS ORDERED: TERBUTALINE INJ 1 MG/ML AMP SQ PRN ×2 (04:45→06:30)
[2018-02-27] MEDS ORDERED: SODIUM BICARBONATE 8.4% INJ 50 MEQ/50 ML SYR IV ONE (05:00)
[2018-02-27] MEDS ORDERED: EPINEPHrine HCL (1:10,000) 1 MG/10 ML SYRINGE IV ONE (05:00)
[2018-02-27] MEDS: DOPamine INJ 800 MG in DEXTROSE 5% IN WATE 500 ML INJ 480 ML IV PRN ×4 (05:37→16:54)
[2018-02-27] MEDS: metroNIDAZOLE 500 MG TAB PO SCH ×3 (06:00→21:03)
[2018-02-27] MEDS: fentaNYL DRIP 250 ML IV PRN (06:21)
[2018-02-27] MEDS ORDERED: SODIUM BICARBONATE 8.4% INJ 50 MEQ/50 ML SYR IV PUSH ONE (06:30)
[2018-02-27] MEDS ORDERED: SODIUM BICARBONATE 8.4% INJ 150 MEQ in DEXTROSE 5% IN WATE 1000ML INJ 850 ML IV SCH ×2 (06:30)
--- NOTE | 2018-02-27 06:44 | HHI.CCPN ---
Subjective Remarks/Hospital Course 57-year-old male with a past medical history significant for bilateral foot cellulitis/abscess with group a strep septicemia (on cefazolin and Flagyl until 02/27/18 per infectious disease), acute kidney injury requiring hemodialysis, C. difficile, hepatitis C, anemia, diabetes mellitus, schizophrenia and hypertension has been admitted for the evaluation of abnormal labs. The patient currently resides in a retirement and had routine labs done showing anemia, worsening renal function and hyponatremia. The patient complains only of being very tired. He denies any dizziness or loss of consciousness. He was admitted to [facility] floor where he developed profound hypotension refractory to IV fluid bolus. He is admitted to ICU for aggressive IV fluid resuscitation and vasopressors treatment. A wound culture was obtained from the left foot ulcer is now reported as growing Klebsiella ESBL positive. Patient also had an abnormal urinalysis when he came in, and the urine culture is now reported as growing Kirstin glabrata. Subjective: 02/23: Afebrile. Patient sitting up in bed in no acute distress, responding to questions appropriately patient on third liter of IV fluid and remains on norepinephrine currently at 2 mics/minute. Patient's urine culture resulted Kirstin glabrata, however only 50,000 CFU but will initiate micafungin secondary to continued hypotension. Patient's midodrine was increased to 10 mg 3 times daily. Patient was noted to have low calcium level today which has been repleted. Electrolyte and CBC panel pending. 02/24: Last evening the patient complained of severe abdominal pain. CT of the abdomen and pelvis was performed, it showed pericholecystic fluid and gallbladder wall thickening. The patient continues to have abdominal pain the patient has been maintained on an n.p.o. status. HIDA scan pending. GI has been consulted. Patient's hemoglobin 7.9, continues to be hypotensive the patient has been typed and screened plan for transfusion of 1 unit of packed red blood cell. Patient continues on Levophed for vasopressor support. Palliative care was consulted to define goals of care, patient does not want hospice at this time. 02/25: Afebrile. The patient remains n.p.o. at this time. HIDA results pending. The patient required additional pressors now on vasopressin 0.04, in conjunction with norepinephrine at 12mcgs. INR trending upward, 2.3. Vitamin K 10 mg IV 1 dose. Urine culture revealed yeast. Discussed with Dr. Washington today, she knew current antibiotic coverage. 02/26: Afebrile. Patient noted with distended gallbladder on ultrasound last evening. Discussion with invasive radiologist, Dr. Forest Yanes, decision made to perform percutaneous cholecystostomy tube placement. Biliary cultures are pending. Overnight the patient continued to be hypotensive requiring vasopressin and norepinephrine. Patient underwent hemodialysis today with approximately 2.4 L removed. Patient continues on Micafungin,Meropenem, and Daptomycin. 02/27: Overnight at approximately 2355, the patient went into cardiac arrest reported PEA arrest, with ROSC in 8 mins. The patient continues to be severely hypotensive currently on norepinephrine, dopamine, vasopressin. The patient currently has a mixed acidosis and low hemoglobin. Type and screen performed 2 units packed red blood cells to be transfused sodium bicarbonate drip being initiated. Significant leukocytosis this a.m.. INR remains elevated. Objective Vital Signs Date Time Temp Pulse Resp B/P (MAP) Pulse Ox O2 Delivery O2 Flow Rate FiO2 02/27/18 04:31 98 100 02/27/18 04:16 79 79/42 02/27/18 04:00 97.0 24 02/26/18 19:15 Nasal Cannula 5.00 Intake and Output 02/27/18 02/27/18 02/28/18 08:00 16:00 00:00 Intake Total 2250 ml Output Total 20 ml Balance 2230 ml Result Diagram: 02/27/18 0045 02/27/18 0045 Other Results Microbiology Date/Time Source Procedure Growth Status 02/24/18 12:35 Urine Catheterized Urine Urine Culture - Final Kirstin Glabrata Complete Laboratory Tests Test 02/27/18 00:50 02/27/18 04:56 Blood Gas Puncture Site ART LINE ART LINE Blood Gas Patient Temperature 98.6 98.6 Blood Gas HCO3 21 mmol/L (22-26) 19 mmol/L (22-26) Blood Gas Base Excess -5.3 mmol/L (-2-2) -8.4 mmol/L (-2-2) Blood Gas Oxygen Saturation 93 % (90-100) 87 % (90-100) Arterial Blood pH 7.23 (7.380-7.420) 7.15 (7.380-7.420) Arterial Blood Partial Pressure CO2 53 mmHg (38-42) 57 mmHg (38-42) Arterial Blood Partial Pressure O2 102 mmHg (61-120) 77 mmHg (61-120) Arterial Blood Oxygen Content 10.2 Vol % (12.0-20.0) 9.4 Vol % (12.0-20.0) Arterial Blood Carboxyhemoglobin 0.9 % (0-4) 0.6 % (0-4) Arterial Blood Methemoglobin 1.5 % (0-2) 1.5 % (0-2) Blood Gas Hemoglobin 7.6 G/DL (12.0-16.0) 7.6 G/DL (12.0-16.0) Oxygen Delivery Device VENTILATOR VENTILATOR Blood Gas Ventilator Setting PRVC16/500/1.0/+5 PRVC18/500/1.0/+5 Blood Gas Inspired Oxygen 100 % 100 % Imaging Last Impressions Chest X-Ray 02/27/18 Signed Impressions: CONCLUSION: 1. Endotracheal tube and new right IJ central venous catheter now seen. 2. Persistent bilateral mid to lower lung zone pulmonary opacity indicating pu lmonary edema versus consolidation. Percutaneous Cholangiogram 02/25/18 Signed Impressions: CONCLUSION: 1. Uncomplicated percutaneous cholecystostomy as above. Thick inspissated bile noted. A sample sent for microbiological evaluation. Gall Bladder Ultrasound 02/25/18 Signed Impressions: CONCLUSION: 1. Concern for acute cholecystitis. Abdomen Ultrasound 02/25/18 Signed Impressions: CONCLUSION: 1. Small amount of ascites. 2. Insufficient amount of fluid for paracentesis. Hepatobiliary Scan Nuclear Medicine 02/24/18 Signed Impressions: CONCLUSION: 1. Abnormal hepatic kinetics and delayed biliary intestinal transit both of wh ich may be accounted for by parenchymal liver disease. 2. Nonvisualization of the gallbladder. It is uncertain whether this represent s obstruction of the gallbladder or slow excretion of radiotracer. Abdomen/Pelvis CT 02/23/181945 Signed Impressions: CONCLUSION: 1. Worsening moderate bilateral pleural effusions, severe anasarca and mild as cites compared with February 17. 2. Stable pericholecystic fluid and gallbladder wall thickening probably relat ed to anasarca. 3. Stable umbilical hernia. No bowel obstruction or free air. Catheter Placement X-Ray 02/19/18 Signed Impressions: CONCLUSION: Uncomplicated ultrasound and fluoroscopic guided central venous dialysis cathet er placement as above. Renal Ultrasound 02/18/18 0000 Signed Impressions: CONCLUSION: 1. Suspected increased echotexture of the renal parenchyma likely representing medical renal disease. No hydronephrosis is present. 2. There is trace free fluid around the liver. Objective Remarks GENERAL: Well-nourished, well-developed patient sitting up in bed in no apparent distress SKIN: Warm and dry. HEAD: Normocephalic. EYES: No scleral icterus. No injection or drainage. NECK: Supple, trachea midline. No JVD or lymphadenopathy. CARDIOVASCULAR: Regular rate and rhythm without murmurs, gallops, or rubs. RESPIRATORY: Breath sounds equal bilaterally. No accessory muscle use. GASTROINTESTINAL: Abdomen soft, nondistended. Cholecystostomy tube draining biliary fluid MUSCULOSKELETAL: No cyanosis, or edema. Has ulcers both plantar aspect of feet, clean, with red tissue, no necrotic tissue, no purulence, no periwound erythema. Bilateral dressings on feet C/D I BACK: Nontender without obvious deformity. NEURO EXAM: GCS: 15 Mental Status: The patient is alert and oriented to person, place, and time with normal speech. Cranial Nerves: Visual acuity intact bilaterally. Visual coulter normal in all quadrants. Pupils are round, reactive to light. Extraocular movements are intact without ptosis. Hearing is normal bilaterally. Voice is normal. Tongue protrudes midline and moves symmetrically. GCS 15 A/P Problem List: (1) Rhabdomyolysis ICD Code: M62.82 - Rhabdomyolysis (2) Edema ICD Code: R60.9 - Edema, unspecified (3) Renal insufficiency ICD Code: N28.9 - Disorder of kidney and ureter, unspecified Status: Acute (4) Acute worsening of stage 3 chronic kidney disease ICD Code: N18.3 - Chronic kidney disease, stage 3 (moderate) (5) Septic shock due to streptococcal infection ICD Code: A40.9 - Streptococcal sepsis, unspecified; R65.21 - Severe sepsis with septic shock Status: Resolved (6) History of schizophrenia ICD Code: Z86.59 - Personal history of other mental and behavioral disorders (7) Open wound of left foot ICD Code: S91.302A - Unspecified open wound, left foot, initial encounter Status: Chronic (8) Acute renal failure ICD Code: N17.9 - Acute kidney failure, unspecified Status: Acute (9) DM (diabetes mellitus) ICD Code: E11.9 - Type 2 diabetes mellitus without complications Status: Chronic (10) Ulcer of right lower extremity ICD Code: L97.919 - Non-pressure chronic ulcer of unspecified part of right lower leg with unspecified severity Status: Chronic (11) Chronic disease anemia ICD Code: D63.8 - Anemia in other chronic diseases classified elsewhere Status: Acute (12) Osteomyelitis of ankle or foot ICD Code: M86.9 - Osteomyelitis, unspecified Status: Acute (13) Abscess of right foot ICD Code: L02.611 - Cutaneous abscess of right foot Status: Acute (14) Charcot foot due to diabetes mellitus ICD Code: E11.610 - Type 2 diabetes mellitus with diabetic neuropathic arthropathy Status: Chronic (15) Impaired mobility and activities of daily living ICD Code: Z74.09 - Other reduced mobility Status: Acute (16) Peripheral neuropathy ICD Code: G62.9 - Peripheral neuropathy Status: Acute (17) Uncontrolled diabetes mellitus ICD Code: E11.65 - Uncontrolled diabetes mellitus Status: Acute (18) Infected stasis ulcer ICD Code: I83.209 - Varicose veins of unspecified lower extremity with both ulcer of unspecified site and inflammation Status: Acute (19) Symptomatic anemia ICD Code: D64.9 - Anemia, unspecified Status: Acute (20) PEA (Pulseless electrical activity) ICD Code: I46.9 - Cardiac arrest, cause unspecified Assessment and Plan Plan by systems: Neurologic: Schizophrenia -Continue home dosing Thorazine -Neuro checks per ICU protocol -Provide fentanyl IV infusion for sedation/ analgesia to maintain ventilator synchrony -Hold all daily sedation vacation until clinically indicate -Vistaril placed on hold Respiratory: VDRF Mixed acidosis 02/27 patient intubated 8.0 ETT, S/P Cardiac Arrest (PEA) ABG postintubation 7.1 /77/19/-8.4 Patient previously on PRVC, noted mixed acidosis CO2 57. Ventilator changed to PC before meals with pressure control to obtain tidal volume of 550 Repeat ABG Bronchodilators every 6 hours scheduled and every 2 hours as needed Cardiovascular Septic shock Hypotension Status post PEA arrest -Continue Levophed, dopamine ,vasopressin to maintain MAP greater than 65mmHG. Phenylephrine added -Midrin 10 mg-discontinued -Albumin 5% BID discontinued 02/27- -Hydrocortisone 50 mg every 6 hours FEN/GI: Abdominal pain Stable umbilical hernia Mild ascites Cholecystitis -Sodium bicarbonate infusion -Maintain n.p.o. status while on vasopressors -02/23 CT abdomen and pelvis- stable pericholecystic fluid and gallbladder wall thickening -Scheduled sennosides twice daily -Bowel regimen -Hepatitis C IgG Ab positive - 02/25 Gallbladder ultrasound-Limited sonographic images of the gallbladder were performed. Other visceral structures were not evaluated at this time. The gallbladder is thick walled. It is distended. There is a questionable echogenic stone within the neck. A trace amount of pericholecystic fluid noted. S/P Percutaneous cholecystostomy tube placement F/U biliary culture - GI following Monitor Creatinine Kinase while on daptomycin 02/27-general surgery has been consulted, secondary to possible stone in the neck of the gallbladder -labs values ALT remains the same, alkaline phosphatase decreasing. AST slightly increased but this is also in the setting of chronic liver disease Heme/ID: Septic shock Anemia -Begin sodium bicarbonate infusion -IV antibiotics per ID -02/27 Kirstin glabrata> 100,000 in repeat specimen -wound culture- Klebsiella ESBL, Group A Strep -02/24 type and screen -Transfuse 1 unit PRBC (02/24) -02/25 Biliary culture obtained , F/U results - 02/27 type and screen-planned transfusion 2 units packed red blood cells (Hgb 7.7) - 02/27 Pancultured Endocrine: Diabetes mellitus -Maintain n.p.o. status -Glucose monitoring per ICU protocol -Insulin sliding scale -- SSI Prophylaxis: GI Prophylaxis Famotidine BID DVT Prophylaxis -- SCDs Lines: Right infusaport/ verma. Peripheral IVs 2 Dispo: my billing statement This patient remains critically ill with one or more organ systems which are or may become a threat to life. I have spent in excess of 45 minutes discontinuously in the care and management of this patient. This time is exclusive of procedures, and includes, but is not limited to, evaluation of the patient, review of the medical record, discussions with family, consultants, nursing staff, or respiratory therapy, and documentation in the medical record. Discussed with Maryuri, patient's sister who is an RN, provided a medical status update. All questions answered. Physician Maddi Lewis MD Feb 27, 2018 06:44
[2018-02-27] MEDS: MIDODRINE 5 MG TAB PO SCH ×3 (07:00→17:04)
[2018-02-27] MEDS ORDERED: PROPOFOL 500 MG/50 ML INJ 50 ML ONE (07:36)
[2018-02-27] MEDS ORDERED: PROPOFOL 500 MG/50 ML BTL IV ONE (07:45)
[2018-02-27] MEDS: INSULIN ASPART SUPPLEMENTAL SCALE SQ SCH ×4 (08:00→21:17)
--- NOTE | 2018-02-27 08:12 | PD.PROCEDR ---
Central Line Procedure REASON FOR PROCEDURE Central venous access PROCEDURE PERFORMED Central line placement: Left internal jugular vein CONSENT Informed consent for procedure was obtained from. The risks and benefits of the procedure were discussed to include but limited to bleeding, clot formation , infection, and even . ANESTHESIA Local injection of 1% Lidocaine DESCRIPTION OF THE PROCEDURE The patient was placed in supine, mild Trendelenburg position. The area was exposed and cleansed with ChloraPrep, times two. Large sterile drape was used to cover the patient, with the site exposed, under sterile conditions including cap, face mask, sterile gown, and sterile gloves. On single attempt, the introducer needle was inserted with negative pressure in syringe and venous flash was obtained. The guide wire was then advanced without any restriction and the needle was removed. The dilator was used without any complications. Using Seldinger technique the 7F catheter was advanced over the guide wire to a depth of 20 centimeters. The guide wire was removed. All ports were aspirated with dark venous blood return and flushed easily with sterile saline. All ports were capped. Antibiotic disc was placed around central line at puncture site. The central line was secured to the skin with two interrupted 2.0 silk sutures. The patient was diaphoretic, and hypotensive at risk of losing central line with required vasopressor support for vasopressors. the area was bandaged with sterile see-through central line bandage. RADIOLOGICAL DATA Ultrasound guidance was used to locate L IJ. Doppler/color flow was used to confirm venous flow. COMPLICATIONS: No apparent complications ESTIMATED BLOOD LOSS: Less than 1 cc. Maddi Dominguez MD Feb 27, 2018 08:12
--- NOTE | 2018-02-27 09:26 | RADRPT ---
EXAM DATE: 02/27/2018 8:49 AM EDT AGE/SEX: 57 years / Male INDICATIONS: Central line placement. CLINICAL DATA: This is the patient's subsequent encounter. Patient reports that signs and symptoms h ave been present for 1 week and indicates a pain score of Nonresponsive. MEDICAL/SURGICAL HISTORY: . Diabetes mellitus type II. Hypertension. . Infusaport. COMPARISON: [facility] [place]ST SING[place] AP, 02/27/2018. . FINDINGS: A left internal jugular central line has been placed and has its tip in superior vena cava. There is no pneumothorax. The endotracheal tube and nasogastric tube are in good positions. Right internal jug ular Vas-Cath is also in good position and stable. Bilateral patchy infiltrates are noted and are wor se on the right than the left consistent with asymmetric pulmonary edema and/or pneumonia. The heart is stable. Degenerative changes are noted throughout the thoracic spine.. CONCLUSION: 1. No pneumothorax status post placement of left internal jugular central line which has its tip in good position in superior vena cava. 2. Bilateral patchy infiltrates (right worse than left) consistent with asymmetric pulmonary edema a nd/or pneumonia. Electronically signed by: Santy Hodge MD 02/27/2018 9:24 AM EDT
--- NOTE | 2018-02-27 09:41 | RADRPT ---
EXAM DATE: 02/27/2018 8:54 AM EDT AGE/SEX: 57 years / Male INDICATIONS: Distention. CLINICAL DATA: This is the patient's initial encounter. Patient reports that signs and symptoms have been present for 1 day and indicates a pain score of Nonresponsive. MEDICAL/SURGICAL HISTORY: . Diabetes mellitus type II. Hypertension . Biliary drain. COMPARISON: [facility] – [place], ABDOMEN KUB ONLY, 01/19/2018. . FINDINGS: Marked gaseous distention of the stomach is noted. A nasogastric tube is identified coiled in the fu ndus of the stomach. Intestinal gas pattern is otherwise unremarkable. Right-sided abdominal catheter characteristic of a recently placed cholecystostomy tube is noted. Patchy airspace disease identified in both lung bases. CONCLUSION: 1. Gaseous distention of the stomach 2. Nasogastric tube within the fundus of the stomach 3. Cholecystostomy tube noted in place. 4. No evidence of significant intestinal ileus. Electronically signed by: Niranjan Bee MD 02/27/2018 9:39 AM EDT
[2018-02-27] MEDS: VASOPRESSIN 40 U/D5W 100 ML Titrate, Post Cardiac Surgery IV PRN ×2 (10:02)
[2018-02-27] MEDS: PHENYLEPHRINE INJ 80 MG in DEXTROSE 5% IN WATE 500 ML INJ 492 ML IV PRN ×4 (10:03→23:18)
[2018-02-27] MEDS: FLUCONAZOLE 200 MG TAB PO SCH (10:03)
[2018-02-27] MEDS: ceFAZolin 1,000 MG/NS 100 ML IV SCH ×4 (10:04→23:19)
[2018-02-27] MEDS: SODIUM CHLORIDE 0.9% FLUSH 10 ML FLUSH IV FLUSH SCH ×2 (10:04→21:04)
[2018-02-27] MEDS: FERROUS SULFATE 325 MG (65 MG ELEMENTAL IRON) TAB PO SCH (10:04)
[2018-02-27] MEDS: THIORIDAZINE HCL 50 MG TAB PO SCH (10:04)
[2018-02-27] MEDS: CHLORHEXIDINE 0.12% (ORAL KIT) 15 ML CUP MT SCH ×2 (10:05→21:06)
[2018-02-27] MEDS: PROPOFOL 1000 MG/100 ML INJ 100 ML IV PRN ×2 (10:32→23:18)
[2018-02-27] MEDS: MEROPENEM INJ 500 MG in SODIUM CHLORIDE 0.9% INJ 100 ML IV SCH ×2 (10:33→21:06)
--- NOTE | 2018-02-27 11:02 | HHI.NPPN ---
Subjective Renal Failure: Acute Interval History Patient suffered cardiac arrest overnight, is intubated and unresponsive. (Laura Quesada) Review of Systems General General Remarks unable to obtain (Laura Quesada) Objective Data Data Vital Signs Date Time Temp Pulse Resp B/P (MAP) Pulse Ox O2 Delivery O2 Flow Rate FiO2 02/27/18 10:50 106 106/55 02/27/18 10:03 106 96/54 02/27/18 10:02 105 96/54 02/27/18 09:56 85 100 02/27/18 08:00 98 Mechanical Ventilator 02/27/18 07:36 93 100 02/27/18 04:31 98 100 02/27/18 04:16 79 79/42 02/27/18 04:00 97.0 79 24 85/49 (61) 96 78/23 (41) 02/27/18 01:00 98 100 02/27/18 00:52 91 102/54 02/27/18 00:05 98 100 02/27/18 00:00 98.0 124 133 126/10 (48) 87 02/26/18 21:23 16 02/26/18 20:00 97.9 89 21 103/56 (72) 94 101/32 (55) 02/26/18 19:15 95 Nasal Cannula 5.00 02/26/18 19:00 97 Nasal Cannula 5.00 02/26/18 18:22 87 97/50 02/26/18 18:00 89 02/26/18 16:00 88 02/26/18 16:00 97.9 88 20 88/51 (63) 97 93/32 (52) Manual Cuff/Auscultation 02/26/18 15:35 87 99/32 02/26/18 14:00 90 02/26/18 12:00 98.8 92 22 99/52 (68) 94 02/26/18 12:00 94/33 (53) 02/26/18 12:00 65 (Laura Quesada) -: 02/27/18 0045 02/27/18 0045 Microbiology 02/27/18 Gram Stain, Received Pending 02/27/18 Sputum Culture, Received Pending Imaging Last 72 hours Impressions Chest X-Ray 6/14/18 0000 Signed Impressions: CONCLUSION: 1. No pneumothorax status post placement of left internal jugular central line which has its tip in good position in superior vena cava. 2. Bilateral patchy infiltrates (right worse than left) consistent with asymme tric pulmonary edema and/or pneumonia. Chest X-Ray 02/27/18 Signed Impressions: CONCLUSION: 1. Endotracheal tube and new right IJ central venous catheter now seen. 2. Persistent bilateral mid to lower lung zone pulmonary opacity indicating pu lmonary edema versus consolidation. Abdomen X-Ray 02/27/18 Signed Impressions: CONCLUSION: 1. Gaseous distention of the stomach 2. Nasogastric tube within the fundus of the stomach 3. Cholecystostomy tube noted in place. 4. No evidence of significant intestinal ileus. Percutaneous Cholangiogram 02/25/18 Signed Impressions: CONCLUSION: 1. Uncomplicated percutaneous cholecystostomy as above. Thick inspissated bile noted. A sample sent for microbiological evaluation. Gall Bladder Ultrasound 02/25/18 Signed Impressions: CONCLUSION: 1. Concern for acute cholecystitis. Abdomen Ultrasound 02/25/18 Signed Impressions: CONCLUSION: 1. Small amount of ascites. 2. Insufficient amount of fluid for paracentesis. Tubes & Lines: Vas-Cath, Chirinos Tubes & Lines Comment A line Drip Comment Levophed, vasopressin, phenylephrine, propofol, bicarb (Laura Quesada. THREAD MACHINE OPERATOR) Physical Exam General Appearance: No Acute Distress, Malnourished Appearance Remarks chronically ill appearing , intubated, unresponsive (Laura Quesada. THREAD MACHINE OPERATOR) Eyes Eye Exam: Pupils Equal, Pupils Reactive (Laura Quesada. THREAD MACHINE OPERATOR) Neck Neck Exam: Neck Supple (Laura Quesada. THREAD MACHINE OPERATOR) Pulmonary Resp Exam: Clear Bilaterally, Breath Sounds Equal Resp Remarks vented (Laura Quesada. THREAD MACHINE OPERATOR) Cardiology CV Exam: Regular, Normal Sinus Rhythm (Laura Quesada. THREAD MACHINE OPERATOR) Gastrointestinal/Abdomen GI Exam: Soft, Non-Tender, Distended GI Remarks cholecystostomy tube (Laura Quesada. THREAD MACHINE OPERATOR) Musculoskeletal MS Exam: Joints Intact, Atrophy, Unable to Ambulate (Laura Quesada. THREAD MACHINE OPERATOR) Integumentary Skin Exam: Warm, Dry Skin Remarks multiple wounds on feet, erythema, open blisters noted bilaterally (Laura Quesada) Extremeties Extremities Exam: No Edema, Pedal Pulses Palpable (Laura Quesada) Neurologic Neuro Exam: Unresponsive, Sedated (Laura Quesada) Psychiatric Psych Exam: Appropriate Responses (Laura Quesada) Assessment/Plan Discussed Condition With: Patient Assessment Summary: BISHOP/Acute Renal Failure Electrolyte Assessment: Hyponatremia Problem List: (1) Acute kidney injury ICD Codes: N17.9 - Acute kidney failure, unspecified Plan: Oliguric renal failure. HD initiated 02/19, currently on MWF HD Suffered cardiac arrest, most likely suffered additional renal injury. He is oligoanuric. Remains hypotensive despite pressor support. Has Vas cath in place, most likely will need Perm cath at later date if he survives. Obtain daily labs. HD MWF as needed. Maintain MAP > 65mmHg. It is unclear if he can tolerate dialysis given cardiovascular instability. Stop bicarb gtt as he is oliguric and we can correct acidosis with dialysis. Overall Prognosis is very poor. It is unclear if he will need superintendent container terminal dialysis. Declined hospice suggestion. (2) Hyperkalemia ICD Codes: E87.5 - Hyperkalemia Plan: Improved with dialysis, monitor. 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 Stable, continue to monitor. (4) Anemia ICD Codes: D64.9 - Anemia, unspecified Status: Acute Plan: Given blood transfusion on admission On Epogen with HD Follow CBC Consider IV Venofer however he has evidence of sepsis. (5) DM (diabetes mellitus) ICD Codes: E11.9 - Type 2 diabetes mellitus without complications Status: Chronic Plan: Insulin coverage as needed, maintain blood sugar between 140 and 180. (6) Infected stasis ulcer ICD Codes: I83.209 - Varicose veins of unspecified lower extremity with both ulcer of unspecified site and inflammation Status: Acute Plan: Wound with klebsiella, sensitivity reviewed. Wound care following (7) UTI (urinary tract infection) ICD Codes: N39.0 - Urinary tract infection, site not specified Status: Acute Plan: see below (8) Sepsis ICD Codes: A41.9 - Sepsis, unspecified organism Status: Resolved Plan: ID following Has foot wounds and UTI Antibiotics include meropenem, daptomycin, Ancef, and micafungin Continue supportive care (9) Abdominal pain ICD Codes: R10.9 - Unspecified abdominal pain Status: Acute Plan: Elevated LFTs, HIDA taken. s/p cholecystectomy tube placement 02/25, will need to remain in place for 3 weeks minimum. (Laura Quesada) Plan patient was seen and examined. Very poor prognosis. Hospice is appropriate. He may not tolerate renal replacement therapy. (Shaun Mcmahon MD) Problem Qualifiers (1) UTI (urinary tract infection): Qualified Codes: N30.00 - Acute cystitis without hematuria Laura Quesada Feb 27, 2018 11:02 Shaun Mcmahon MD Feb 27, 2018 20:18
--- NOTE | 2018-02-27 12:28 | HHI.GIFU ---
Subjective Remarks This is a 57 year old M with PMH significant for bilateral foot cellulitis with grou A septicepima, BISHOP on HD, history of C. Diff, Hepatitis C with no detectable quant, anemia, DM, schizophrenia, HTN, and cirrhosis who presented to the ER seven days ago for evaluation of abnormal labs. Pt is currently in a rehab facility after recent hospital admission and was sent due to anemia, worsening renal function and hyponatremia. Our service has been consulted to evaluate pt for abdominal pain. Pt is a poor historian. During my exam he points to both flanks and states he has abdominal pain that radiates around to his back on both sides. He thinks the pain is related to his abdominal swelling with no recent paracentesis. Denies nausea, vomiting, acid reflux, heartburn. He is unable to provide history regarding BMs, one BM documented from yesterday in the chart. Pt was seen by our service during previous admission as well as prior admission for elevated LFTs. Previous work up in assessment and plan. Pt has also had an EGD and colonoscopy by our service in February 2017 --> Significant amount of stool present throughout entire examined colon, incomplete study secondary to poor prep. Normal esophagus, food residue in the entire examined stomach, medium sized ulcer in the gastric antrum. RECONSULT for CGE Pt now S/P PEA arrest last night with ROSC after 8 minutes of resuscitation, is now on multiple pressors, intubated and on 100% FiO2. An OG was placed this morning and a significant amount of coffee ground emesis was suctioned out, per RN also a significant amount of gastric secretions during the intubation signifying aspiration. (Skylar Sykes) Objective Vitals I&O Vital Signs Date Time Temp Pulse Resp B/P (MAP) Pulse Ox O2 Delivery O2 Flow Rate FiO2 02/27/18 11:37 98.2 106 20 101/52 98 02/27/18 11:22 98.1 107 20 102/54 97 02/27/18 10:50 106 106/55 02/27/18 10:03 106 96/54 02/27/18 10:02 105 96/54 02/27/18 09:56 85 100 02/27/18 08:00 98 Mechanical Ventilator 02/27/18 07:36 93 100 02/27/18 04:31 98 100 02/27/18 04:16 79 79/42 02/27/18 04:00 97.0 79 24 85/49 (61) 96 78/23 (41) 02/27/18 01:00 98 100 02/27/18 00:52 91 102/54 02/27/18 00:05 98 100 02/27/18 00:00 98.0 124 133 126/10 (48) 87 02/26/18 21:23 16 02/26/18 20:00 97.9 89 21 103/56 (72) 94 101/32 (55) 02/26/18 19:15 95 Nasal Cannula 5.00 02/26/18 19:00 97 Nasal Cannula 5.00 02/26/18 18:22 87 97/50 02/26/18 18:00 89 02/26/18 16:00 88 02/26/18 16:00 97.9 88 20 88/51 (63) 97 93/32 (52) Manual Cuff/Auscultation 02/26/18 15:35 87 99/32 02/26/18 14:00 90 I/O 02/26/18 02/26/18 02/26/18 02/27/18 02/27/18 02/27/18 07:00 15:00 23:00 07:00 15:00 23:00 Intake Total 1600 ml 100 ml 576 ml 2250 ml Output Total 100 ml 2700 ml 110 ml 20 ml Balance 1500 ml -2600 ml 466 ml 2230 ml Intake Oral 0 ml 440 ml IV Total 1600 ml 100 ml 136 ml 2000 ml Albumin 250 ml Output Urine Total 30 ml 50 ml 10 ml Drainage Total 70 ml 60 ml 10 ml Hemodialysis 2700 ml # Bowel Movements 0 Laboratory Laboratory Tests Test 02/27/18 00:45 02/27/18 00:50 02/27/18 04:56 02/27/18 08:35 White Blood Count 20.1 Red Blood Count 2.74 Hemoglobin 7.7 Hematocrit 25.0 Mean Corpuscular Volume 91.3 Mean Corpuscular Hemoglobin 28.2 Mean Corpuscular Hemoglobin Concent 30.9 Red Cell Distribution Width 16.5 Platelet Count 263 Mean Platelet Volume 10.7 Neutrophils (%) (Auto) 73.8 Lymphocytes (%) (Auto) 16.9 Monocytes (%) (Auto) 7.9 Eosinophils (%) (Auto) 0.9 Basophils (%) (Auto) 0.5 Neutrophils # (Auto) 14.8 Lymphocytes # (Auto) 3.4 Monocytes # (Auto) 1.6 Eosinophils # (Auto) 0.2 Basophils # (Auto) 0.1 CBC Comment AUTO DIFF Differential Total Cells Counted 100 Neutrophils % (Manual) 73 Band Neutrophils % 4 Lymphocytes % 13 Monocytes % 8 Neutrophils # (Manual) 15.9 Metamyelocytes 2 Nucleated Red Blood Cells 16 Differential Comment FINAL DIFF MANUAL Platelet Estimate NORMAL Platelet Morphology Comment NORMAL Polychromasia 3.5 Basophilic Stippling FAINT Target Cells 1+ Red Cell Morphology Comment Prothrombin Time 23.0 Prothromb Time International Ratio 2.3 Blood Urea Nitrogen 23 Creatinine 3.45 Random Glucose 148 Total Protein 7.3 Albumin 2.0 Calcium Level 7.2 Phosphorus Level 4.5 Magnesium Level 2.1 Alkaline Phosphatase 326 Aspartate Amino Transf (AST/SGOT) 160 Alanine Aminotransferase (ALT/SGPT) 11 Total Bilirubin 1.1 Sodium Level 134 Potassium Level 4.1 Chloride Level 98 Carbon Dioxide Level 19.9 Anion Gap 16 Estimat Glomerular Filtration Rate 19 Protein Corrected Calcium 7.2 Troponin I 0.22 Blood Gas Puncture Site ART LINE ART LINE ART LINE Blood Gas Patient Temperature 98.6 98.6 98.6 Blood Gas HCO3 21 19 22 Blood Gas Base Excess -5.3 -8.4 -4.5 Blood Gas Oxygen Saturation 93 87 83 Arterial Blood pH 7.23 7.15 7.25 Arterial Blood Partial Pressure CO2 53 57 51 Arterial Blood Partial Pressure O2 102 77 61 Arterial Blood Oxygen Content 10.2 9.4 9.0 Arterial Blood Carboxyhemoglobin 0.9 0.6 1.0 Arterial Blood Methemoglobin 1.5 1.5 1.7 Blood Gas Hemoglobin 7.6 7.6 7.6 Oxygen Delivery Device VENTILATOR VENTILATOR VENTILATOR Blood Gas Ventilator Setting PRVC16/500/1.0/+5 PRVC18/500/1.0/+5 PCAC20/IP34/1.0/+8 Blood Gas Inspired Oxygen 100 100 100 Test 02/27/18 09:12 Lactic Acid Level 5.0 Troponin I 0.21 Date/Time Source Procedure Growth Status 02/23/18 19:27 Blood Peripheral Aerobic Blood Culture - Preliminary NO GROWTH IN 4 DAYS Resulted 02/23/18 19:27 Blood Peripheral Anaerobic Blood Culture - Preliminary NO GROWTH IN 4 DAYS Resulted 02/25/18 18:22 Fluid Other Gram Stain - Final Resulted 02/25/18 18:22 Body Fluid Culture - Preliminary Yeast Species Resulted 02/27/18 08:45 Sputum Endotracheal Gram Stain Pending Received 02/27/18 08:45 Sputum Endotracheal Sputum Culture Pending Received 02/24/18 12:35 Urine Catheterized Urine Urine Culture - Final Kirstin Glabrata Complete 02/18/18 11:00 Wound Foot Gram Stain - Final Complete 02/18/18 11:00 Wound Culture - Final Klebsiella Pneumoniae Esbl Pos Complete Imaging Last Impressions Chest X-Ray 02/27/18 Signed Impressions: CONCLUSION: 1. No pneumothorax status post placement of left internal jugular central line which has its tip in good position in superior vena cava. 2. Bilateral patchy infiltrates (right worse than left) consistent with asymme tric pulmonary edema and/or pneumonia. Abdomen X-Ray 02/27/18 Signed Impressions: CONCLUSION: 1. Gaseous distention of the stomach 2. Nasogastric tube within the fundus of the stomach 3. Cholecystostomy tube noted in place. 4. No evidence of significant intestinal ileus. Percutaneous Cholangiogram 02/25/18 Signed Impressions: CONCLUSION: 1. Uncomplicated percutaneous cholecystostomy as above. Thick inspissated bile noted. A sample sent for microbiological evaluation. Gall Bladder Ultrasound 02/25/18 Signed Impressions: CONCLUSION: 1. Concern for acute cholecystitis. Abdomen Ultrasound 02/25/18 Signed Impressions: CONCLUSION: 1. Small amount of ascites. 2. Insufficient amount of fluid for paracentesis. Hepatobiliary Scan Nuclear Medicine 02/24/18 Signed Impressions: CONCLUSION: 1. Abnormal hepatic kinetics and delayed biliary intestinal transit both of wh ich may be accounted for by parenchymal liver disease. 2. Nonvisualization of the gallbladder. It is uncertain whether this represent s obstruction of the gallbladder or slow excretion of radiotracer. Abdomen/Pelvis CT 02/23/181945 Signed Impressions: CONCLUSION: 1. Worsening moderate bilateral pleural effusions, severe anasarca and mild as cites compared with February 17. 2. Stable pericholecystic fluid and gallbladder wall thickening probably relat ed to anasarca. 3. Stable umbilical hernia. No bowel obstruction or free air. Catheter Placement X-Ray 02/19/18 Signed Impressions: CONCLUSION: Uncomplicated ultrasound and fluoroscopic guided central venous dialysis cathet er placement as above. Renal Ultrasound 6/5/18 0000 Signed Impressions: CONCLUSION: 1. Suspected increased echotexture of the renal parenchyma likely representing medical renal disease. No hydronephrosis is present. 2. There is trace free fluid around the liver. Physical Exam HEENT: Normocephalic; atraumatic CHEST: Respiration synchronized with vent via ETT CARDIAC: Sinus tachycardia on monitor ABDOMEN: Distended, soft, bowel sounds active. OG to LIWS with coffee grounds in suction canister SKIN: Normal; no rash; no jaundice. CRIBBER: Sedated, unresponsive (Skylar Sykes) Assessment and Plan Plan Assessment: - Abdominal pain, reports pain is in both flanks and radiates around to his back. Also complaining of abdominal swelling, states he feels the fluid is so high that it is up to his throat. Denies nausea, vomiting. Can not recall BMs, one documented in chart yesterday. Recent C Diff in January. EGD and colonoscopy by our service in February 2017 --> Significant amount of stool present throughout entire examined colon, incomplete study secondary to poor prep. Normal esophagus, food residue in the entire examined stomach, medium sized ulcer in the gastric antrum. CT abdomen and pelvis WO IV contrast (02/23) Worsening moderate bilateral pleural effusions, severe anasarca and mild ascites compared with February 17. Stable pericholecystic fluid and gallbladder wall thickening probably related to anasarca. Stable umbilical hernia. No bowel obstruction or free air. - Elevated LFTs- was previously drinking daily prior to recent admission and discharge and is currently in rehab facility Previous liver work up: Hepatitis C antibody positive, but genotype and quant undetectable AAT-245 Ceruloplasmin-43 VICKIE positive, titer 1:320 Pattern Nucleolar AMA less than 20 AMA negative Ferritin-2320 Iron-63 TIBC-64 %sat-97.8 (02/25) Pt with continued side and back pain. US abdomen shows insufficient fluid for paracentesis. HIDA scan pending. HFE pending (02/26) Pt reports some improvement in pain today. GB US revealed concern for acute cholecystitis. HIDA scan Abnormal hepatic kinetics and delayed biliary intestinal transit both of which may be accounted for by parenchymal liver disease. Nonvisualization of the gallbladder. It is uncertain whether this represents obstruction of the gallbladder or slow excretion of radiotracer. S/P percutaneous cholecystostomy drain placed by IR yesterday, 80 mL of thick , dark inspissated bile removed, sample sent to micro. Mild leukocytosis- pt on Meropenem and Daptomycin. Pt hypotensive yesterday, ? secondary to septic shock, now on Vasopressin. LFTs continue to trend down, HFE pending. RECONSULT FOR COFFEE GROUND EMESIS VIA OG (02/27) Pt S/P PEA arrest last night with ROSC after 8 minutes of resuscitation. An OG was placed after intubation which revealed a significant amount of coffee grounds, per RN also gastric secretions noted during intubation revealing aspiration. At this time, pt is on 4 pressors and 100% FiO2- he is too unstable for EGD. Will start Protonix gtt, monitor H/H closely and transfuse as needed Plan: Protonix gtt Monitor H/H Transfuse as indicated Too unstable for EGD HFE pending Further recommendations based on clinical course Pt has been seen and examined by myself and Dr. Rajput and this note is written on his behalf (Skylar Sykes) Physician Comments Agree with the plan as above, will follow up with you . (Wali Rajput MD) Skylar Sykes Feb 27, 2018 12:28 Wali Rajput MD Feb 28, 2018 10:45
[2018-02-27] MEDS: MICAFUNGIN INJ 100 MG in SODIUM CHLORIDE 0.9% INJ 100 ML IV SCH (12:43)
[2018-02-27] MEDS: HYDROCORTISONE SOD SUCCINATE 100 MG VIAL IV PUSH SCH ×2 (12:44→17:04)
--- NOTE | 2018-02-27 12:54 | PD.PROCEDR ---
Procedure Note Procedure Procedure: Fiberoptic Bronchoscopy Diagnosis: Probable aspiration Indications: Hypoxemia /PEA arrest Consent: Obtained from family Anesthesia: See MAR Description of the Procedure: The patient was sedated and mechanically ventilated. The patient was placed on 100% FIO2 and a volume control mode of ventilation. The fiberoptic bronchoscopy was inserted via 8.0 ETT. The trachea, right and left mainstem bronchi, and sub-segmental bronchi were evaluated. The endobronchial anatomy was normal. Findings: Copious mccarthy/black secretions, Right > left BAL samples: 1 The patient tolerated the procedure well with no hemodynamic instability or hypoxia. There were no immediate complications noted. At the conclusion of the procedure, the patient was placed back on their pre-procedure ventilatory settings. There was minimal EBL. A chest x-ray has been ordered. I personally performed the procedure. Maddi Dominguez MD Feb 27, 2018 12:54
--- NOTE | 2018-02-27 13:11 | HHI.IDPN ---
Note Infectious Disease Note Patient took a turn of events for the worst overnight. Developed cardiopulmonary arrest. Now on ventilator. Unresponsive. Copious NG secretions. On Levophed 12 mcg, phenylephrine 100 mcg. Percutaneous cholecystostomy tube placed 02/25. Culture has yeast. Underwent bronchoscopy today. Afebrile. New sputum culture ordered. 57-year-old male, [facility] for abnormal routine labs showing anemia, hyponatremia, and worsening renal function. Patient was hospitalized last month and at that time he had group A strep septicemia as well as bilateral foot ulcers with infection. During that hospitalization he also had acute kidney injury and it improved but not to normal limits. Patient was discharged on IV Ancef for his sepsis, with plans to complete treatment on February 27. Antibiotics Cefazolin Daptomycin micafungin Metronidazole Current Medications Medications (Trade) Dose Ordered Sig/Portia Route PRN Reason Start Time Stop Time Status Last Admin Dose Admin Sodium Chloride (NS Flush) 2 ml UNSCH PRN IV FLUSH FLUSH AFTER USING IV ACCESS 02/17/18 19:45 Sodium Chloride (NS Flush) 2 ml BID IV FLUSH 02/17/18 21:00 02/27/18 10:04 Acetaminophen (Tylenol) 650 mg Q4H PRN PO TEMP > 100.4 02/17/18 19:45 Metoclopramide HCl (Reglan Inj) 5 mg Q6H PRN IV PUSH NAUSEA OR VOMITING 02/17/18 19:45 Naloxone HCl (Narcan Inj) 0.4 mg UNSCH PRN IV PUSH SEE LABEL COMMENTS 02/17/18 19:45 Magnesium Hydroxide (Milk Of Magnesia Liq) 30 ml Q12H PRN PO Mild constipation 02/17/18 19:45 Bisacodyl (Dulcolax Supp) 10 mg DAILY PRN RECTAL SEVERE CONSITIPATION 02/17/18 19:45 Lactulose (Lactulose Liq) 30 ml DAILY PRN PO SEVERE CONSITIPATION 02/17/18 19:45 Amlodipine Besylate (Norvasc) 10 mg DAILY PO 02/18/18 09:00 Future Hold 02/19/18 08:47 Ferrous Sulfate (Ferrous Sulfate) 325 mg DAILY PO 02/18/18 09:00 02/27/18 10:04 Acetaminophen/ Hydrocodone Bitart ([place] 10-325 Mg) 1 tab BID PRN PO PAIN SCALE 1 TO 10 02/17/18 20:00 Future Hold 02/26/18 20:23 Hydroxyzine Pamoate (Vistaril) 50 mg BID PO 02/17/18 21:00 02/27/18 10:03 Metronidazole (Flagyl) 500 mg Q8HR PO 02/17/18 22:00 02/27/18 12:45 Heparin Sodium (Porcine) (Heparin Central Flush) 500 unit Q12HR IV FLUSH 02/17/18 21:00 02/26/18 20:00 Dextrose (D50w (Vial) Inj) 50 ml UNSCH PRN IV PUSH HYPOGLYCEMIA-SEE COMMENTS 02/17/18 20:30 Glucagon (Glucagon Inj) 1 mg UNSCH PRN OTHER HYPOGLYCEMIA-SEE COMMENTS 02/17/18 20:30 Insulin Aspart (NovoLOG SUPPLEMENTAL SCALE) 1 ACHS SLIDING SCALE SQ 02/17/18 21:00 02/26/18 12:00 Cefazolin Sodium 1000 mg/Sodium Chloride 100 ml @ 200 mls/hr Q12H IV 02/17/18 22:00 02/27/18 23:00 02/27/18 10:04 Thioridazine HCl (Mellaril) 200 mg DAILY PO 02/18/18 09:00 02/27/18 10:04 Sodium Chloride 1,000 ml @ 0 mls/hr Q0M PRN OTHER For Prime & Rinse Back 02/19/18 09:35 02/26/18 11:02 Heparin Sodium (Porcine) (Heparin Inj) 8,000 units UNSCH PRN IV FLUSH WITH DIALYSIS 02/19/18 09:45 02/22/18 12:40 Sodium Chloride 1,000 ml @ 200 mls/hr Q5H PRN IV WITH DIALYSIS 02/19/18 09:35 Sodium Chloride 1,000 ml @ 0 mls/hr Q0M PRN OTHER WITH DIALYSIS 02/19/18 09:35 Mannitol (Mannitol Inj) 12.5 gm UNSCH PRN IV WITH DIALYSIS 02/19/18 09:45 Albumin Human 100 ml @ 60 mls/hr UNSCH PRN IV WITH DIALYSIS 02/19/18 09:45 02/20/18 14:38 Sodium Chloride (NS Flush) 5 ml UNSCH PRN IV FLUSH WITH DIALYSIS 02/19/18 09:45 Heparin Sodium (Porcine) (Heparin Inj) UNSCH PRN .XX WITH DIALYSIS 02/19/18 09:45 02/26/18 11:02 Gentamicin Sulfate (Gentamicin Inj) 20 mg UNSCH PRN OTHER WITH DIALYSIS 02/19/18 09:45 02/26/18 11:02 Ondansetron HCl (Zofran Odt) 4 mg UNSCH PRN PO WITH DIALYSIS 02/19/18 09:45 02/24/18 20:42 Acetaminophen (Tylenol) 650 mg UNSCH PRN PO for headach, pain, temp > 101F 02/19/18 09:45 Diphenhydramine HCl (Benadryl) 25 mg UNSCH PRN PO for hives/itching/anaphylaxis 02/19/18 09:45 Nitroglycerin (Nitrostat Sl) 0.4 mg UNSCH PRN SL CHEST PAIN 02/19/18 09:45 Clonidine (Catapres) 0.1 mg UNSCH PRN PO for BP > 180/100 X 2 readings 02/19/18 09:45 Epoetin [place] (Epogen Inj) 10,000 units UNSCH PRN IV PUSH WITH DIALYSIS 02/19/18 09:45 02/26/18 11:01 Gelatin (Gelfoam 12 Mm/7 Mm Top) 1 foam UNSCH PRN TOP SEE LABEL COMMENTS 02/19/18 09:45 Sodium Chloride (NS Flush) UNSCH PRN IV FLUSH SEE PROTOCOL 02/19/18 13:15 Heparin Sodium (Porcine) (Heparin Inj) UNSCH PRN IV FLUSH SEE PROTOCOL 02/19/18 13:15 Fluconazole (Diflucan) 200 mg DAILY PO 02/21/18 14:30 02/28/18 14:29 02/27/18 10:03 Miscellaneous Information ([facility] Nursing Information) Patient in critical care unit? Ass... [id number] .XX 02/23/18 03:00 Chlorhexidine Gluconate (Chlorhexidine 2% Cloth) 3 pack UNSCH PRN TOPICAL HYGIENIC CARE 02/23/18 03:00 02/28/18 02:47 Norepinephrine Bitartrate 250 ml @ 7.5 mls/hr TITRATE PRN IV Blood pressure management 02/23/18 05:15 02/27/18 10:50 Terbutaline Sulfate (Brethine Inj) 1 mg UNSCH PRN SQ For Extravasation 02/23/18 05:15 Midodrine (Proamatine) 10 mg TID@07,12,17 PO 02/23/18 12:00 02/27/18 12:44 Micafungin Sodium 100 mg/Sodium Chloride 100 ml @ 100 mls/hr Q24H IV 02/23/18 11:00 02/27/18 12:43 Daptomycin 800 mg/ Sodium Chloride 100 ml @ 200 mls/hr Q48H IV 02/23/18 21:00 02/25/18 21:53 Promethazine HCl (Phenergan Inj) 12.5 mg Q6H PRN IV-CENTRAL nausea/vomiting 02/23/18 22:00 02/24/18 22:16 Hydromorphone HCl (Dilaudid Pf Inj) 1 mg Q4H PRN IV PUSH pain 4-10 02/23/18 23:00 Future Hold 02/24/18 08:10 Meropenem 500 mg/ Sodium Chloride 100 ml @ 200 mls/hr Q12HR IV 02/24/18 10:00 02/27/18 10:33 Vasopressin 40 units/Dextrose 100 ml @ 1.5 mls/hr TITRATE PRN IV Blood Pressure Management 02/24/18 09:45 02/27/18 10:02 Sennosides (Senokot) 17.2 mg Q12H PO 02/24/18 20:00 02/26/18 19:59 Pantoprazole Sodium (Protonix Inj) 40 mg Q12H IV PUSH 02/27/18 01:00 02/27/18 12:48 Chlorhexidine Gluconate (Peridex 0.12% Liq) 15 ml BID@08,20 MT 02/27/18 08:00 02/27/18 10:05 Fentanyl Citrate 250 ml @ 5 mls/hr TITRATE PRN IV SEDATION 02/27/18 01:00 02/27/18 06:21 Dopamine HCl 800 mg/Dextrose 500 ml @ 11.02 mls/ hr TITRATE PRN IV Blood Pressure Management 02/27/18 05:00 02/27/18 05:37 Phenylephrine HCl 80 mg/Dextrose 500 ml @ 15 mls/hr TITRATE PRN IV Blood pressure Management 02/27/18 06:30 02/27/18 10:03 Hydrocortisone Sodium Succinate (SoluCORTEF INJ) 50 mg Q6HR IV PUSH 02/27/18 12:00 02/27/18 12:44 Propofol 100 ml @ 3.057 mls/ hr TITRATE PRN IV SEDATION 02/27/18 08:45 02/27/18 10:32 Past Medical History Bilateral foot cellulitis/abscess with group a strep septicemia (on cefazolin and Flagyl until 02/27/18 per infectious disease) Acute kidney injury requiring hemodialysis C. 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 Objective Vital Signs Date Time Temp Pulse Resp B/P (MAP) Pulse Ox O2 Delivery O2 Flow Rate FiO2 02/27/18 12:49 88 100 02/27/18 11:37 98.2 106 20 101/52 98 02/27/18 11:22 98.1 107 20 102/54 97 02/27/18 10:50 106 106/55 02/27/18 10:03 106 96/54 02/27/18 10:02 105 96/54 02/27/18 09:56 85 100 02/27/18 08:00 98 Mechanical Ventilator 02/27/18 07:36 93 100 02/27/18 04:31 98 100 02/27/18 04:16 79 79/42 02/27/18 04:00 97.0 79 24 85/49 (61) 96 78/23 (41) 02/27/18 01:00 98 100 02/27/18 00:52 91 102/54 02/27/18 00:05 98 100 02/27/18 00:00 98.0 124 133 126/10 (48) 87 02/26/18 21:23 16 02/26/18 20:00 97.9 89 21 103/56 (72) 94 101/32 (55) 02/26/18 19:15 95 Nasal Cannula 5.00 02/26/18 19:00 97 Nasal Cannula 5.00 02/26/18 18:22 87 97/50 02/26/18 18:00 89 02/26/18 16:00 88 02/26/18 16:00 97.9 88 20 88/51 (63) 97 93/32 (52) Manual Cuff/Auscultation 02/26/18 15:35 87 99/32 02/26/18 14:00 90 Laboratory Tests Test 02/26/18 04:30 02/27/18 00:45 White Blood Count 11.8 TH/MM3 20.1 TH/MM3 Red Blood Count 2.87 MIL/MM3 2.74 MIL/MM3 Hemoglobin 8.3 GM/DL 7.7 GM/DL Hematocrit 26.2 % 25.0 % Mean Corpuscular Volume 91.2 FL 91.3 FL Mean Corpuscular Hemoglobin 28.8 PG 28.2 PG Mean Corpuscular Hemoglobin Concent 31.5 % 30.9 % Red Cell Distribution Width 16.3 % 16.5 % Platelet Count 262 TH/MM3 263 TH/MM3 Mean Platelet Volume 10.5 FL 10.7 FL Neutrophils (%) (Auto) 72.7 % 73.8 % Lymphocytes (%) (Auto) 16.1 % 16.9 % Monocytes (%) (Auto) 9.1 % 7.9 % Eosinophils (%) (Auto) 1.4 % 0.9 % Basophils (%) (Auto) 0.7 % 0.5 % Neutrophils # (Auto) 8.6 TH/MM3 14.8 TH/MM3 Lymphocytes # (Auto) 1.9 TH/MM3 3.4 TH/MM3 Monocytes # (Auto) 1.1 TH/MM3 1.6 TH/MM3 Eosinophils # (Auto) 0.2 TH/MM3 0.2 TH/MM3 Basophils # (Auto) 0.1 TH/MM3 0.1 TH/MM3 CBC Comment AUTO DIFF AUTO DIFF Differential Total Cells Counted 100 100 Neutrophils % (Manual) 69 % 73 % Band Neutrophils % 8 % 4 % Lymphocytes % 8 % 13 % Monocytes % 8 % 8 % Eosinophils % 2 % Neutrophils # (Manual) 9.7 TH/MM3 15.9 TH/MM3 Metamyelocytes 1 % 2 % Myelocytes 4 % Nucleated Red Blood Cells 7 /100 WBC 16 /100 WBC Differential Comment FINAL DIFF MANUAL FINAL DIFF MANUAL Platelet Estimate NORMAL NORMAL Platelet Morphology Comment NORMAL NORMAL Polychromasia 2.7 % 3.5 % Target Cells 1+ 1+ Red Cell Morphology Comment Basophilic Stippling FAINT Laboratory Tests Test 02/25/18 15:55 02/26/18 04:30 02/27/18 00:45 02/27/18 09:12 Calcium Level 7.9 MG/DL 7.5 MG/DL 7.2 MG/DL Protein Corrected Calcium 7.7 MG/DL 7.2 MG/DL Total Protein 7.7 GM/DL 7.6 GM/DL 7.3 GM/DL Blood Urea Nitrogen 30 MG/DL 23 MG/DL Creatinine 4.54 MG/DL 3.45 MG/DL Random Glucose 162 MG/DL 148 MG/DL Albumin 1.8 GM/DL 2.0 GM/DL Phosphorus Level 4.9 MG/DL 4.5 MG/DL Magnesium Level 2.1 MG/DL 2.1 MG/DL Alkaline Phosphatase 380 U/L 326 U/L Aspartate Amino Transf (AST/SGOT) 71 U/L 160 U/L Alanine Aminotransferase (ALT/SGPT) 11 U/L 11 U/L Total Bilirubin 0.6 MG/DL 1.1 MG/DL Sodium Level 131 MEQ/L 134 MEQ/L Potassium Level 4.3 MEQ/L 4.1 MEQ/L Chloride Level 96 MEQ/L 98 MEQ/L Carbon Dioxide Level 20.4 MEQ/L 19.9 MEQ/L Anion Gap 15 MEQ/L 16 MEQ/L Estimat Glomerular Filtration Rate 14 ML/MIN 19 ML/MIN Total Creatine Kinase 23 U/L Troponin I 0.22 NG/ML 0.21 NG/ML Lactic Acid Level 5.0 mmol/L Microbiology Date/Time Source Procedure Growth Status 02/25/18 18:22 Fluid Other Gram Stain - Final Resulted 02/25/18 18:22 Body Fluid Culture - Preliminary Yeast Species Resulted 02/27/18 08:45 Sputum Endotracheal Gram Stain Pending Received 02/27/18 08:45 Sputum Endotracheal Sputum Culture Pending Received Imaging: Chest X-Ray 02/27/18 0000 Signed Impressions: CONCLUSION: 1. No pneumothorax status post placement of left internal jugular central line which has its tip in good position in superior vena cava. 2. Bilateral patchy infiltrates (right worse than left) consistent with asymme tric pulmonary edema and/or pneumonia. Chest X-Ray 02/27/18 Signed Impressions: CONCLUSION: 1. Endotracheal tube and new right IJ central venous catheter now seen. 2. Persistent bilateral mid to lower lung zone pulmonary opacity indicating pu lmonary edema versus consolidation. Abdomen X-Ray 02/27/18 Signed Impressions: CONCLUSION: 1. Gaseous distention of the stomach 2. Nasogastric tube within the fundus of the stomach 3. Cholecystostomy tube noted in place. 4. No evidence of significant intestinal ileus. Percutaneous Cholangiogram 02/25/18 Signed Impressions: CONCLUSION: 1. Uncomplicated percutaneous cholecystostomy as above. Thick inspissated bile noted. A sample sent for microbiological evaluation. Gall Bladder Ultrasound 02/25/18 Signed Impressions: CONCLUSION: 1. Concern for acute cholecystitis. Abdomen Ultrasound 02/25/18 Signed Impressions: CONCLUSION: 1. Small amount of ascites. 2. Insufficient amount of fluid for paracentesis. Abdomen/Pelvis CT 02/23/181945 Signed Impressions: CONCLUSION: 1. Worsening moderate bilateral pleural effusions, severe anasarca and mild as cites compared with February 17. 2. Stable pericholecystic fluid and gallbladder wall thickening probably relat ed to anasarca. 3. Stable umbilical hernia. No bowel obstruction or free air. Catheter Placement X-Ray 02/19/18 Signed Impressions: CONCLUSION: Uncomplicated ultrasound and fluoroscopic guided central venous dialysis cathet er placement as above. Renal Ultrasound 02/18/18 Signed Impressions: CONCLUSION: 1. Suspected increased echotexture of the renal parenchyma likely representing medical renal disease. No hydronephrosis is present. 2. There is trace free fluid around the liver. Chest X-Ray 02/17/18 Signed Impressions: CONCLUSION: 1. Cardiomegaly with plain film findings suggesting some degree of vascular co ngestion or volume overload. 2. Left basilar consolidation/effusion. Physical Exam GENERAL: Unresponsive on the ventilator. HEENT: Pupils reactive to light. No icterus. Slightly dry oral mucosa. NECK: Supple without adenopathy or swelling. LUNGS: Decreased breath sounds. HEART: Irregular S1 and S2. No murmurs or rubs or gallops. ABDOMEN: Distended, firm, increased bowel sounds. EXTREMITIES: No clubbing or cyanosis. Trace edema of the feet. SKIN: No rash. NEUROLOGIC: Unable to assess. PSYCH: Unable to assess. LINE: No evidence of infection, Dc on the right chest and right IJ Vas- Cath IMPRESSION Cardiopulmonary arrest. Sepsis. Requiring Levophed for hypotension. Aspiration pneumonia. Acute cholecystitis. Cholecystostomy fluid has yeast. Group A Strep sepsis from foot infection, better Treatment is due to be completed on February 27. (+) wound C/S with Kleb ESBL+ - colonization, wound looks clean and no evidence of infection Kirstin UTI Renal failure, on HD Hx C diff colitis RECOMMENDATION Plan on continuing the cefazolin for infection of the foot through today Continue Meropenem Continue Daptomycin Continue Micafungin. Monitor blood cultures. Monitor clinical status. Antibiotic adjustments depending on culture results. Sen Washington MD Feb 27, 2018 13:11
[2018-02-27] MEDS ORDERED: RESP: ALBUTEROL 2.5 MG/IPRATROPIUM 0.5 MG NEB (PRN) NEB (13:15)
--- NOTE | 2018-02-27 13:36 | RADRPT ---
EXAM DATE: 02/27/2018 1:18 PM EDT AGE/SEX: 57 years / Male INDICATIONS: Post bronchoscopy CLINICAL DATA: This is the patient's subsequent encounter. Patient reports that signs and symptoms h ave been present for 1 week and indicates a pain score of Nonresponsive. MEDICAL/SURGICAL HISTORY: Diabetes mellitus type II. UTI . infusaport COMPARISON: C, CHEST SINGLE AP, 02/27/2018. . FINDINGS: Diffuse bilateral infiltrates are again noted, worse on the right than the left and are relatively un changed multiple tubes and lines are stable. No pneumothorax is noted. CONCLUSION: Persistent diffuse bilateral pulmonary infiltrates (right worse than left). Electronically signed by: Santy Hodge MD 02/27/2018 1:35 PM EDT
--- NOTE | 2018-02-27 14:30 | HHI.HCPN ---
Reason for visit a. To assist with evaluation and management of symptoms including:pain, dyspnea b. To assist medical decision maker(s) with: better understanding of current medical conditions; weighing benefits/burdens of medical treatment options; making medical treatment decisions. Subjective/Interval History Patient went to cardiac arrest overnight, underwent CPR and return to spontaneous circulation and 8 minutes. Patient is currently intubated and sedated. OG placed and had significant amount of coffee ground emesis which was suctioned out. He continues to have leukocytosis. Patient earlier today underwent fiberoptic bronchoscopy, found copious mccarthy dianne secretions. BAL samples taken. Abdomen X ray show gaseous distention. Chest Xray this morning shows persistent bilateral mid to lower lung zone. Family/friend interactions No family in the room. Call pt's sister Maryuri who previously had been more receptive. I left a voicemail. Advance Directives Living Will: Never completed Health Care Surrogate: Never completed Durable Power of Residential Pest Control Technician: Never completed Objective Vital Signs Date Time Temp Pulse Resp B/P (MAP) Pulse Ox O2 Delivery O2 Flow Rate FiO2 02/27/18 13:23 98.6 104 20 100/50 96 02/27/18 13:18 98.6 103 20 100/50 94 02/27/18 12:49 88 100 02/27/18 11:37 98.2 106 20 101/52 98 02/27/18 11:22 98.1 107 20 102/54 97 02/27/18 10:50 106 106/55 02/27/18 10:03 106 96/54 02/27/18 10:02 105 96/54 02/27/18 09:56 85 100 02/27/18 08:00 98 Mechanical Ventilator 02/27/18 07:36 93 100 02/27/18 04:31 98 100 02/27/18 04:16 79 79/42 02/27/18 04:00 97.0 79 24 85/49 (61) 96 78/23 (41) 02/27/18 01:00 98 100 02/27/18 00:52 91 102/54 02/27/18 00:05 98 100 02/27/18 00:00 98.0 124 133 126/10 (48) 87 02/26/18 21:23 16 02/26/18 20:00 97.9 89 21 103/56 (72) 94 101/32 (55) 02/26/18 19:15 95 Nasal Cannula 5.00 02/26/18 19:00 97 Nasal Cannula 5.00 02/26/18 18:22 87 97/50 02/26/18 18:00 89 02/26/18 16:00 88 02/26/18 16:00 97.9 88 20 88/51 (63) 97 93/32 (52) Manual Cuff/Auscultation 02/26/18 15:35 87 99/32 Intake & Output 02/27/18 02/27/18 07:00 19:00 Intake Total 2250 ml 400 ml Output Total 20 ml Balance 2230 ml 400 ml IV Total 2000 ml Albumin 250 ml Packed Cells 400 ml Output Urine Total 10 ml Drainage Total 10 ml Physical Exam CONSTITUTIONAL/GENERAL: This is a 57 year old gentlemen, intubated sedated TUBES/LINES/DRAINS: right central line, almaraz. cholestetomy tube. SKIN: Skin temperature appropriate. Not diaphoretic. HEAD: Atraumatic. Normocephalic. EYES: No scleral icterus. No injection or drainage. Fundi not examined. ENT: Nose without bleeding or purulent drainage. ET tube NECK: Trachea midline. Supple, nontender. No palpable thyroid enlargement or nodularity. CARDIOVASCULAR: Regular rate and rhythm without murmurs, gallops, or rubs. RESPIRATORY/CHEST: Symmetric, unlabored respirations. Faint rhonchi. GASTROINTESTINAL: Abdomen soft, distended. Bowel sounds present. Cholesectomy tube in place. GENITOURINARY: Without palpable bladder distension. Almaraz catheter in place. MUSCULOSKELETAL: Extremities. lower extremitiy, feet have dressing, c/d/i NEUROLOGICAL: sedated, PSYCHIATRIC: minimally responsive. Diagnostic Tests Laboratory Laboratory Tests Test 02/24/18 17:40 02/24/18 19:50 02/25/18 04:22 02/25/18 15:55 Prothrombin Time 21.2 SEC (9.8-11.6) 22.8 SEC (9.8-11.6) Prothromb Time International Ratio 2.1 RATIO 2.3 RATIO Activated Partial Thromboplast Time 39.0 SEC (24.3-30.1) Hemoglobin 8.5 GM/DL (13.0-17.0) 8.6 GM/DL (13.0-17.0) Hematocrit 26.2 % (39.0-51.0) 27.2 % (39.0-51.0) White Blood Count 12.0 TH/MM3 (4.0-11.0) Red Blood Count 3.03 MIL/MM3 (4.50-5.90) Mean Corpuscular Volume 90.0 FL (80.0-100.0) Mean Corpuscular Hemoglobin 28.5 PG (27.0-34.0) Mean Corpuscular Hemoglobin Concent 31.7 % (32.0-36.0) Red Cell Distribution Width 15.8 % (11.6-17.2) Platelet Count 279 TH/MM3 (150-450) Mean Platelet Volume 10.4 FL (7.0-11.0) Neutrophils (%) (Auto) 74.2 % (16.0-70.0) Lymphocytes (%) (Auto) 14.8 % (9.0-44.0) Monocytes (%) (Auto) 8.3 % (0.0-8.0) Eosinophils (%) (Auto) 1.9 % (0.0-4.0) Basophils (%) (Auto) 0.8 % (0.0-2.0) Neutrophils # (Auto) 8.9 TH/MM3 (1.8-7.7) Lymphocytes # (Auto) 1.8 TH/MM3 (1.0-4.8) Monocytes # (Auto) 1.0 TH/MM3 (0-0.9) Eosinophils # (Auto) 0.2 TH/MM3 (0-0.4) Basophils # (Auto) 0.1 TH/MM3 (0-0.2) CBC Comment AUTO DIFF Differential Total Cells Counted 100 Neutrophils % (Manual) 84 % (16-70) Band Neutrophils % 2 % (0-6) Lymphocytes % 4 % (9-44) Monocytes % 6 % (0-8) Eosinophils % 2 % (0-4) Basophils % 1 % (0-2) Neutrophils # (Manual) 10.4 TH/MM3 (1.8-7.7) Myelocytes 1 % (0-0) Nucleated Red Blood Cells 8 /100 WBC (0-0) Differential Comment FINAL DIFF MANUAL Platelet Estimate NORMAL (NORMAL) Platelet Morphology Comment NORMAL (NORMAL) Red Cell Morphology Comment (NORMAL) Blood Urea Nitrogen 25 MG/DL (7-18) Creatinine 4.15 MG/DL (0.60-1.30) Random Glucose 191 MG/DL (74-106) Total Protein 7.8 GM/DL (6.4-8.2) 7.7 GM/DL (6.4-8.2) Albumin 1.8 GM/DL (3.4-5.0) Calcium Level 7.5 MG/DL (8.5-10.1) 7.9 MG/DL (8.5-10.1) Phosphorus Level 4.0 MG/DL (2.5-4.9) Magnesium Level 2.1 MG/DL (1.5-2.5) Alkaline Phosphatase 424 U/L (45-117) Aspartate Amino Transf (AST/SGOT) 82 U/L (15-37) Alanine Aminotransferase (ALT/SGPT) 11 U/L (12-78) Total Bilirubin 0.6 MG/DL (0.2-1.0) Sodium Level 131 MEQ/L (136-145) Potassium Level 3.9 MEQ/L (3.5-5.1) Chloride Level 96 MEQ/L (98-107) Carbon Dioxide Level 21.3 MEQ/L (21.0-32.0) Anion Gap 14 MEQ/L (5-15) Estimat Glomerular Filtration Rate 15 ML/MIN (>89) Protein Corrected Calcium 7.7 MG/DL (8.5-10.1) Test 02/26/18 04:30 02/27/18 00:45 02/27/18 00:50 02/27/18 04:56 White Blood Count 11.8 TH/MM3 (4.0-11.0) 20.1 TH/MM3 (4.0-11.0) Red Blood Count 2.87 MIL/MM3 (4.50-5.90) 2.74 MIL/MM3 (4.50-5.90) Hemoglobin 8.3 GM/DL (13.0-17.0) 7.7 GM/DL (13.0-17.0) Hematocrit 26.2 % (39.0-51.0) 25.0 % (39.0-51.0) Mean Corpuscular Volume 91.2 FL (80.0-100.0) 91.3 FL (80.0-100.0) Mean Corpuscular Hemoglobin 28.8 PG (27.0-34.0) 28.2 PG (27.0-34.0) Mean Corpuscular Hemoglobin Concent 31.5 % (32.0-36.0) 30.9 % (32.0-36.0) Red Cell Distribution Width 16.3 % (11.6-17.2) 16.5 % (11.6-17.2) Platelet Count 262 TH/MM3 (150-450) 263 TH/MM3 (150-450) Mean Platelet Volume 10.5 FL (7.0-11.0) 10.7 FL (7.0-11.0) Neutrophils (%) (Auto) 72.7 % (16.0-70.0) 73.8 % (16.0-70.0) Lymphocytes (%) (Auto) 16.1 % (9.0-44.0) 16.9 % (9.0-44.0) Monocytes (%) (Auto) 9.1 % (0.0-8.0) 7.9 % (0.0-8.0) Eosinophils (%) (Auto) 1.4 % (0.0-4.0) 0.9 % (0.0-4.0) Basophils (%) (Auto) 0.7 % (0.0-2.0) 0.5 % (0.0-2.0) Neutrophils # (Auto) 8.6 TH/MM3 (1.8-7.7) 14.8 TH/MM3 (1.8-7.7) Lymphocytes # (Auto) 1.9 TH/MM3 (1.0-4.8) 3.4 TH/MM3 (1.0-4.8) Monocytes # (Auto) 1.1 TH/MM3 (0-0.9) 1.6 TH/MM3 (0-0.9) Eosinophils # (Auto) 0.2 TH/MM3 (0-0.4) 0.2 TH/MM3 (0-0.4) Basophils # (Auto) 0.1 TH/MM3 (0-0.2) 0.1 TH/MM3 (0-0.2) CBC Comment AUTO DIFF AUTO DIFF Differential Total Cells Counted 100 100 Neutrophils % (Manual) 69 % (16-70) 73 % (16-70) Band Neutrophils % 8 % (0-6) 4 % (0-6) Lymphocytes % 8 % (9-44) 13 % (9-44) Monocytes % 8 % (0-8) 8 % (0-8) Eosinophils % 2 % (0-4) Neutrophils # (Manual) 9.7 TH/MM3 (1.8-7.7) 15.9 TH/MM3 (1.8-7.7) Metamyelocytes 1 % (0-1) 2 % (0-1) Myelocytes 4 % (0-0) Nucleated Red Blood Cells 7 /100 WBC (0-0) 16 /100 WBC (0-0) Differential Comment FINAL DIFF MANUAL FINAL DIFF MANUAL Platelet Estimate NORMAL (NORMAL) NORMAL (NORMAL) Platelet Morphology Comment NORMAL (NORMAL) NORMAL (NORMAL) Polychromasia 2.7 % (0.0-1.9) 3.5 % (0.0-1.9) Target Cells 1+ (NORMAL) 1+ (NORMAL) Red Cell Morphology Comment (NORMAL) (NORMAL) Blood Urea Nitrogen 30 MG/DL (7-18) 23 MG/DL (7-18) Creatinine 4.54 MG/DL (0.60-1.30) 3.45 MG/DL (0.60-1.30) Random Glucose 162 MG/DL (74-106) 148 MG/DL (74-106) Total Protein 7.6 GM/DL (6.4-8.2) 7.3 GM/DL (6.4-8.2) Albumin 1.8 GM/DL (3.4-5.0) 2.0 GM/DL (3.4-5.0) Calcium Level 7.5 MG/DL (8.5-10.1) 7.2 MG/DL (8.5-10.1) Phosphorus Level 4.9 MG/DL (2.5-4.9) 4.5 MG/DL (2.5-4.9) Magnesium Level 2.1 MG/DL (1.5-2.5) 2.1 MG/DL (1.5-2.5) Alkaline Phosphatase 380 U/L (45-117) 326 U/L (45-117) Aspartate Amino Transf (AST/SGOT) 71 U/L (15-37) 160 U/L (15-37) Alanine Aminotransferase (ALT/SGPT) 11 U/L (12-78) 11 U/L (12-78) Total Bilirubin 0.6 MG/DL (0.2-1.0) 1.1 MG/DL (0.2-1.0) Sodium Level 131 MEQ/L (136-145) 134 MEQ/L (136-145) Potassium Level 4.3 MEQ/L (3.5-5.1) 4.1 MEQ/L (3.5-5.1) Chloride Level 96 MEQ/L (98-107) 98 MEQ/L (98-107) Carbon Dioxide Level 20.4 MEQ/L (21.0-32.0) 19.9 MEQ/L (21.0-32.0) Anion Gap 15 MEQ/L (5-15) 16 MEQ/L (5-15) Estimat Glomerular Filtration Rate 14 ML/MIN (>89) 19 ML/MIN (>89) Total Creatine Kinase 23 U/L (39-308) Basophilic Stippling FAINT (NORMAL) Prothrombin Time 23.0 SEC (9.8-11.6) Prothromb Time International Ratio 2.3 RATIO Protein Corrected Calcium 7.2 MG/DL (8.5-10.1) Troponin I 0.22 NG/ML (0.02-0.05) Blood Gas Puncture Site ART LINE ART LINE Blood Gas Patient Temperature 98.6 98.6 Blood Gas HCO3 21 mmol/L (22-26) 19 mmol/L (22-26) Blood Gas Base Excess -5.3 mmol/L (-2-2) -8.4 mmol/L (-2-2) Blood Gas Oxygen Saturation 93 % (90-100) 87 % (90-100) Arterial Blood pH 7.23 (7.380-7.420) 7.15 (7.380-7.420) Arterial Blood Partial Pressure CO2 53 mmHg (38-42) 57 mmHg (38-42) Arterial Blood Partial Pressure O2 102 mmHg (61-120) 77 mmHg (61-120) Arterial Blood Oxygen Content 10.2 Vol % (12.0-20.0) 9.4 Vol % (12.0-20.0) Arterial Blood Carboxyhemoglobin 0.9 % (0-4) 0.6 % (0-4) Arterial Blood Methemoglobin 1.5 % (0-2) 1.5 % (0-2) Blood Gas Hemoglobin 7.6 G/DL (12.0-16.0) 7.6 G/DL (12.0-16.0) Oxygen Delivery Device VENTILATOR VENTILATOR Blood Gas Ventilator Setting PRVC16/500/1.0/+5 PRVC18/500/1.0/+5 Blood Gas Inspired Oxygen 100 % 100 % Test 02/27/18 08:35 02/27/18 09:12 Blood Gas Puncture Site ART LINE Blood Gas Patient Temperature 98.6 Blood Gas HCO3 22 mmol/L (22-26) Blood Gas Base Excess -4.5 mmol/L (-2-2) Blood Gas Oxygen Saturation 83 % (90-100) Arterial Blood pH 7.25 (7.380-7.420) Arterial Blood Partial Pressure CO2 51 mmHg (38-42) Arterial Blood Partial Pressure O2 61 mmHg (61-120) Arterial Blood Oxygen Content 9.0 Vol % (12.0-20.0) Arterial Blood Carboxyhemoglobin 1.0 % (0-4) Arterial Blood Methemoglobin 1.7 % (0-2) Blood Gas Hemoglobin 7.6 G/DL (12.0-16.0) Oxygen Delivery Device VENTILATOR Blood Gas Ventilator Setting PCAC20/IP34/1.0/+8 Blood Gas Inspired Oxygen 100 % Lactic Acid Level 5.0 mmol/L (0.4-2.0) Troponin I 0.21 NG/ML (0.02-0.05) Result Diagram: 02/27/18 0045 02/27/18 0045 Microbiology Microbiology Date/Time Source Procedure Growth Status 02/25/18 18:22 Fluid Other Gram Stain - Final Resulted 02/25/18 18:22 Body Fluid Culture - Preliminary Yeast Species Resulted 02/27/18 13:35 Bronchial Washings Right Lower Lobe Gram Stain Pending Received 02/27/18 13:35 Bronchial Washings Right Lower Lobe Bronchial Culture Pending Received 02/27/18 08:45 Sputum Endotracheal Gram Stain Pending Received 02/27/18 08:45 Sputum Endotracheal Sputum Culture Pending Received Imaging Last Impressions Chest X-Ray 02/27/18 0000 Signed Impressions: CONCLUSION: Persistent diffuse bilateral pulmonary infiltrates (right worse than left). Abdomen X-Ray 02/27/18 0000 Signed Impressions: CONCLUSION: 1. Gaseous distention of the stomach 2. Nasogastric tube within the fundus of the stomach 3. Cholecystostomy tube noted in place. 4. No evidence of significant intestinal ileus. Percutaneous Cholangiogram 02/25/18 Signed Impressions: CONCLUSION: 1. Uncomplicated percutaneous cholecystostomy as above. Thick inspissated bile noted. A sample sent for microbiological evaluation. Gall Bladder Ultrasound 02/25/18 Signed Impressions: CONCLUSION: 1. Concern for acute cholecystitis. Abdomen Ultrasound 02/25/18 Signed Impressions: CONCLUSION: 1. Small amount of ascites. 2. Insufficient amount of fluid for paracentesis. Hepatobiliary Scan Nuclear Medicine 02/24/18 Signed Impressions: CONCLUSION: 1. Abnormal hepatic kinetics and delayed biliary intestinal transit both of wh ich may be accounted for by parenchymal liver disease. 2. Nonvisualization of the gallbladder. It is uncertain whether this represent s obstruction of the gallbladder or slow excretion of radiotracer. Abdomen/Pelvis CT 02/23/181945 Signed Impressions: CONCLUSION: 1. Worsening moderate bilateral pleural effusions, severe anasarca and mild as cites compared with February 17. 2. Stable pericholecystic fluid and gallbladder wall thickening probably relat ed to anasarca. 3. Stable umbilical hernia. No bowel obstruction or free air. Catheter Placement X-Ray 02/19/18 Signed Impressions: CONCLUSION: Uncomplicated ultrasound and fluoroscopic guided central venous dialysis cathet er placement as above. Renal Ultrasound 02/18/18 Signed Impressions: CONCLUSION: 1. Suspected increased echotexture of the renal parenchyma likely representing medical renal disease. No hydronephrosis is present. 2. There is trace free fluid around the liver. Assessment and Plan Disease Oriented Problem List: (1) Acute on chronic renal failure (2) Sepsis (3) Ulcer of left foot due to type 2 diabetes mellitus (4) Chronic disease anemia (5) Pleural effusion (6) History of schizophrenia Symptom Scale: (1) Pain 0-10 Scale: Unable to quantify (too confused today.) Pertinent Non-Medical Issues Psychosocial:Pt not . no children. Lives with parents. 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 Spiritual: latter-day, not pentecostal Legal: Proxy would be pt's parents. Ethical issues impacting care: none. Important Contacts Maryuri [phone] (sister RN) Rosana Yanes [phone] or [phone] (mother) Alexei Yanes [phone] or [phone] (father) has another sister. Prognosis 57 year old with chronic wounds, sepsis, acute on chronic renal failure. Prognosis is guarded. Should he survive current hospitalization, he is a risk for repeated hospitlization for sepsis, renal failure, and general debility. Overall functional level as well as compliance is poor. Code Status: Full Code Plan == Capacity- no capacity to make medical decisions. intubated sedated. == Code: Full. == Health care decision maker- Not , no children, under [place] it will be pt's parents who are proxy. He decline signing health care surrogate form. Father is ill. Proxy is pt's mother. == goals of treatment: I have had conversations with pt's mother; and reviewed medical team concern about general decline and overall prognosis. . Mother's goals are aggressive. * mother is pentecostal and beliefs in miracles * She wants to continue all aggressive care possible. * Full Code. * Goals are unlikely to change for the time being. * At this time mother is not receptive to palliative care. She has no further questions. Today I have tried to reach out the pt's sister Maryuri who had been more receptive to palliative care, and has not return my voicemail. * Family has palliative care contact information, but despite voicemail left, has not return calls. It is reported pt's other family member is currently ill , and I believe pt's mother is ovewhelmed. * Goals are aggressive. Symptom: Pain- complains mostly of back pain, and not much about his wounds. currently intubated, sedated Palliative care will continue to follow, family has palliative care contact information, but despite voicemail left, has not return calls. It is reported pt's other family member is currently Attestation To help prompt me to consider important information that might be impacting today's encounter and assessment, information from prior notes written by myself or my colleagues may have been "brought forward" into today's note. My signature on this note, however, is an attestation that I personally performed the exam, history, and/or decision-making noted today, and, unless otherwise indicated, the interactions with patient, family, and staff as well as the review of records all occurred today. I also attest that the listed assessment and stated plan reflect my best clinical judgment today based on the combination of historical information, prior notes, and today's exam/ interactions. When time spent is documented, it refers only to time spent today by the signer, or if indicated, combined time spent today by collaborating physician/nurse practitioner. Lon Darden MD Feb 27, 2018 14:30
--- NOTE | 2018-02-27 16:05 | PD.CONS ---
cc: Marcio Garnica MD [facility] Service CONSULTATION NOTE FOR SURGICAL ATTENDING, DR. MARCIO GARNICA General Surgery Consult Requested By Dr. Dominguez Reason for Consult Evaluation of cholecystitis Primary Care Physician Frandy House MD History of Present Illness This is a 57 year old male with a past medical history of bilateral foot cellulitis/abscess, acute kidney injury requiring hemodialysis, hepatitis C, anemia, diabetes mellitus, schizophrenia and GERD who was brought to the hospital after he was found to be anemic with worsening kidney function after labs were drawn at the senior living. During the admission, the patient started complaining of abdominal pain and a CT abdomen/pelvis was obtained which shows some pericholecystic fluid and wall thickening. A HIDA scan was obtained and showed nonvisualization of the gallbladder. A gallbladder ultrasound was obtained which showed a concern for acute cholecystitis. A cholecystostomy tube was placed yesterday in IR. Thin, green bile has been draining. Overnight , the patient had a PEA arrest and has been started on four vasopressors. A central line was and arterial line were placed. Dr. Dominguez is at bedside performing bronchoscopy. A General Surgery consultation has been requesting. Review of Systems ROS Limitations: Clinical Condition, Intubated, Unresponsive Past Family Social History Past Medical History Bilateral foot cellulitis/abscess Acute kidney injury requiring hemodialysis C-diff Hepatitis C Anemia Diabetes mellitus Schizophrenia Hypertension Past Surgical History Foot surgery Reported Medications Cefazolin Flagyl Ferrous sulfate Norvasc [place] Thioridazine Visaril Novolin Allergies: Coded Allergies: haloperidol (Verified Allergy, Severe, BLINDNESS, 01/14/18) vancomycin (Verified Allergy, Severe, 01/14/18) levofloxacin (Verified Allergy, Intermediate, Cramping, 01/14/18) fluphenazine (Verified Allergy, Unknown, "[employer]", 01/14/18) codeine (Verified Adverse Reaction, Mild, 01/14/18) "makes me feel funny" but feels ok taking [place]'s *MDRO Multi-Drug Resistant Organism (Verified Adverse Reaction, Unknown, VRE, 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 Ordered Medications Current Medications Medications (Trade) Dose Ordered Sig/Portia Route Start Time Stop Time Status Last Admin (NS Flush) 2 ml UNSCH PRN IV FLUSH 02/17/18 19:45 (NS Flush) 2 ml BID IV FLUSH 02/17/18 21:00 02/27/18 10:04 (Tylenol) 650 mg Q4H PRN PO 02/17/18 19:45 (Reglan Inj) 5 mg Q6H PRN IV PUSH 02/17/18 19:45 (Narcan Inj) 0.4 mg UNSCH PRN IV PUSH 02/17/18 19:45 (Milk Of Magnesia Liq) 30 ml Q12H PRN PO 02/17/18 19:45 (Dulcolax Supp) 10 mg DAILY PRN RECTAL 02/17/18 19:45 (Lactulose Liq) 30 ml DAILY PRN PO 02/17/18 19:45 (Norvasc) 10 mg DAILY PO 02/18/18 09:00 Future Hold 02/19/18 08:47 (Ferrous Sulfate) 325 mg DAILY PO 02/18/18 09:00 02/27/18 10:04 ([place] 10-325 Mg) 1 tab BID PRN PO 02/17/18 20:00 Future Hold 02/26/18 20:23 (Vistaril) 50 mg BID PO 02/17/18 21:00 02/27/18 10:03 (Flagyl) 500 mg Q8HR PO 02/17/18 22:00 02/27/18 12:45 (Heparin Central Flush) 500 unit Q12HR IV FLUSH 02/17/18 21:00 02/26/18 20:00 (D50w (Vial) Inj) 50 ml UNSCH PRN IV PUSH 02/17/18 20:30 (Glucagon Inj) 1 mg UNSCH PRN OTHER 02/17/18 20:30 (NovoLOG SUPPLEMENTAL SCALE) 1 ACHS SLIDING SCALE SQ 02/17/18 21:00 02/26/18 12:00 Cefazolin Sodium 1000 mg/Sodium Chloride 100 ml @ 200 mls/hr Q12H IV 02/17/18 22:00 02/27/18 23:00 02/27/18 10:04 (Mellaril) 200 mg DAILY PO 02/18/18 09:00 02/27/18 10:04 Sodium Chloride 1,000 ml @ 0 mls/hr Q0M PRN OTHER 02/19/18 09:35 02/26/18 11:02 (Heparin Inj) 8,000 units UNSCH PRN IV FLUSH 02/19/18 09:45 02/22/18 12:40 Sodium Chloride 1,000 ml @ 200 mls/hr Q5H PRN IV 02/19/18 09:35 Sodium Chloride 1,000 ml @ 0 mls/hr Q0M PRN OTHER 02/19/18 09:35 (Mannitol Inj) 12.5 gm UNSCH PRN IV 02/19/18 09:45 Albumin Human 100 ml @ 60 mls/hr UNSCH PRN IV 02/19/18 09:45 02/20/18 14:38 (NS Flush) 5 ml UNSCH PRN IV FLUSH 02/19/18 09:45 (Heparin Inj) UNSCH PRN .XX 02/19/18 09:45 02/26/18 11:02 (Gentamicin Inj) 20 mg UNSCH PRN OTHER 02/19/18 09:45 02/26/18 11:02 (Zofran Odt) 4 mg UNSCH PRN PO 02/19/18 09:45 02/24/18 20:42 (Tylenol) 650 mg UNSCH PRN PO 02/19/18 09:45 (Benadryl) 25 mg UNSCH PRN PO 02/19/18 09:45 (Nitrostat Sl) 0.4 mg UNSCH PRN SL 02/19/18 09:45 (Catapres) 0.1 mg UNSCH PRN PO 02/19/18 09:45 (Epogen Inj) 10,000 units UNSCH PRN IV PUSH 02/19/18 09:45 02/26/18 11:01 (Gelfoam 12 Mm/7 Mm Top) 1 foam UNSCH PRN TOP 02/19/18 09:45 (NS Flush) UNSCH PRN IV FLUSH 02/19/18 13:15 (Heparin Inj) UNSCH PRN IV FLUSH 02/19/18 13:15 (Diflucan) 200 mg DAILY PO 02/21/18 14:30 02/28/18 14:29 02/27/18 10:03 ([facility] [place] [facility]) Patient in critical care unit? Ass... Q361D .XX 02/23/18 03:00 (Chlorhexidine 2% Cloth) 3 pack UNSCH PRN TOPICAL 02/23/18 03:00 02/28/18 02:47 Norepinephrine Bitartrate 250 ml @ 7.5 mls/hr TITRATE PRN IV 02/23/18 05:15 02/27/18 10:50 (Brethine Inj) 1 mg UNSCH PRN SQ 02/23/18 05:15 (Proamatine) 10 mg TID@07,12,17 PO 02/23/18 12:00 02/27/18 12:44 Micafungin Sodium 100 mg/Sodium Chloride 100 ml @ 100 mls/hr Q24H IV 02/23/18 11:00 02/27/18 12:43 Daptomycin 800 mg/ Sodium Chloride 100 ml @ 200 mls/hr Q48H IV 02/23/18 21:00 02/25/18 21:53 (Phenergan Inj) 12.5 mg Q6H PRN IV-CENTRAL 02/23/18 22:00 02/24/18 22:16 (Dilaudid Pf Inj) 1 mg Q4H PRN IV PUSH 02/23/18 23:00 Future Hold 02/24/18 08:10 Meropenem 500 mg/ Sodium Chloride 100 ml @ 200 mls/hr Q12HR IV 02/24/18 10:00 02/27/18 10:33 Vasopressin 40 units/Dextrose 100 ml @ 1.5 mls/hr TITRATE PRN IV 02/24/18 09:45 02/27/18 10:02 (Senokot) 17.2 mg Q12H PO 02/24/18 20:00 02/26/18 19:59 (Protonix Inj) 40 mg Q12H IV PUSH 02/27/18 01:00 02/27/18 12:48 (Peridex 0.12% Liq) 15 ml BID@08,20 MT 02/27/18 08:00 02/27/18 10:05 Fentanyl Citrate 250 ml @ 5 mls/hr TITRATE PRN IV 02/27/18 01:00 02/27/18 06:21 Dopamine HCl 800 mg/Dextrose 500 ml @ 11.02 mls/ hr TITRATE PRN IV 02/27/18 05:00 02/27/18 05:37 Phenylephrine HCl 80 mg/Dextrose 500 ml @ 15 mls/hr TITRATE PRN IV 02/27/18 06:30 02/27/18 10:03 (SoluCORTEF INJ) 50 mg Q6HR IV PUSH 02/27/18 12:00 02/27/18 12:44 Propofol 100 ml @ 3.057 mls/ hr TITRATE PRN IV 02/27/18 08:45 02/27/18 10:32 (Duoneb Neb) 1 ampule Q6HR NEB NEB 02/27/18 16:00 (Duoneb Neb) 1 ampule Q2HR NEB PRN NEB 02/27/18 13:15 Family History Unable to obtain Social History Per reports---- quit drinking ETOH in January of 2018. Physical Exam Vital Signs Vital Signs Date Time Temp Pulse Resp B/P (MAP) Pulse Ox O2 Delivery O2 Flow Rate FiO2 02/27/18 15:20 98.7 104 20 101/54 94 02/27/18 13:23 98.6 104 20 100/50 96 02/27/18 13:18 98.6 103 20 100/50 94 02/27/18 12:49 88 100 02/27/18 12:00 98.2 106 20 96/51 (66) 97 93/41 (58) 02/27/18 11:37 98.2 106 20 101/52 98 02/27/18 11:22 98.1 107 20 102/54 97 02/27/18 10:50 106 106/55 02/27/18 10:03 106 96/54 02/27/18 10:02 105 96/54 02/27/18 10:00 96 02/27/18 09:56 85 100 02/27/18 08:00 102 02/27/18 08:00 98 Mechanical Ventilator 02/27/18 08:00 97.1 102 20 99/55 (70) 99 93/42 (59) 02/27/18 07:36 93 100 02/27/18 04:31 98 100 02/27/18 04:16 79 79/42 02/27/18 04:00 97.0 79 24 85/49 (61) 96 78/23 (41) 02/27/18 01:00 98 100 02/27/18 00:52 91 102/54 02/27/18 00:05 98 100 02/27/18 00:00 98.0 124 133 126/10 (48) 87 02/26/18 21:23 16 02/26/18 20:00 97.9 89 21 103/56 (72) 94 101/32 (55) 02/26/18 19:15 95 Nasal Cannula 5.00 02/26/18 19:00 97 Nasal Cannula 5.00 02/26/18 18:22 87 97/50 02/26/18 18:00 89 02/26/18 16:00 88 02/26/18 16:00 97.9 88 20 88/51 (63) 97 93/32 (52) Manual Cuff/Auscultation 02/26/18 15:35 87 99/32 Physical Exam GENERAL: 57 year old male intubated and sedated. SKIN: Evidence of poor vascular circulation to BLE. HEAD: Atraumatic. Normocephalic. EYES: Pupils equal and round. No scleral icterus. No injection or drainage. ENT: Dried blood around mouth. Intubated. NECK: Trachea midline. CARDIOVASCULAR: Regular rate and rhythm. RESPIRATORY: No accessory muscle use. Clear to auscultation. Breath sounds equal bilaterally. GASTROINTESTINAL: Abdomen soft, mildly distended abdomen. Obese. Reducible umbilical hernia. Cholecystostomy tube in place with thin, green bile draining to gravity bag. MUSCULOSKELETAL: Bandage on his LEFT foot in place. RIGHT foot with Telfa. NEUROLOGICAL: Intubated/Sedated PSYCHIATRIC: Unable to obtain. Laboratory Laboratory Tests Test 02/27/18 00:45 02/27/18 00:50 02/27/18 04:56 02/27/18 08:35 White Blood Count 20.1 Red Blood Count 2.74 Hemoglobin 7.7 Hematocrit 25.0 Mean Corpuscular Volume 91.3 Mean Corpuscular Hemoglobin 28.2 Mean Corpuscular Hemoglobin Concent 30.9 Red Cell Distribution Width 16.5 Platelet Count 263 Mean Platelet Volume 10.7 Neutrophils (%) (Auto) 73.8 Lymphocytes (%) (Auto) 16.9 Monocytes (%) (Auto) 7.9 Eosinophils (%) (Auto) 0.9 Basophils (%) (Auto) 0.5 Neutrophils # (Auto) 14.8 Lymphocytes # (Auto) 3.4 Monocytes # (Auto) 1.6 Eosinophils # (Auto) 0.2 Basophils # (Auto) 0.1 CBC Comment AUTO DIFF Differential Total Cells Counted 100 Neutrophils % (Manual) 73 Band Neutrophils % 4 Lymphocytes % 13 Monocytes % 8 Neutrophils # (Manual) 15.9 Metamyelocytes 2 Nucleated Red Blood Cells 16 Differential Comment FINAL DIFF MANUAL Platelet Estimate NORMAL Platelet Morphology Comment NORMAL Polychromasia 3.5 Basophilic Stippling FAINT Target Cells 1+ Red Cell Morphology Comment Prothrombin Time 23.0 Prothromb Time International Ratio 2.3 Blood Urea Nitrogen 23 Creatinine 3.45 Random Glucose 148 Total Protein 7.3 Albumin 2.0 Calcium Level 7.2 Phosphorus Level 4.5 Magnesium Level 2.1 Alkaline Phosphatase 326 Aspartate Amino Transf (AST/SGOT) 160 Alanine Aminotransferase (ALT/SGPT) 11 Total Bilirubin 1.1 Sodium Level 134 Potassium Level 4.1 Chloride Level 98 Carbon Dioxide Level 19.9 Anion Gap 16 Estimat Glomerular Filtration Rate 19 Protein Corrected Calcium 7.2 Troponin I 0.22 Blood Gas Puncture Site ART LINE ART LINE ART LINE Blood Gas Patient Temperature 98.6 98.6 98.6 Blood Gas HCO3 21 19 22 Blood Gas Base Excess -5.3 -8.4 -4.5 Blood Gas Oxygen Saturation 93 87 83 Arterial Blood pH 7.23 7.15 7.25 Arterial Blood Partial Pressure CO2 53 57 51 Arterial Blood Partial Pressure O2 102 77 61 Arterial Blood Oxygen Content 10.2 9.4 9.0 Arterial Blood Carboxyhemoglobin 0.9 0.6 1.0 Arterial Blood Methemoglobin 1.5 1.5 1.7 Blood Gas Hemoglobin 7.6 7.6 7.6 Oxygen Delivery Device VENTILATOR VENTILATOR VENTILATOR Blood Gas Ventilator Setting PRVC16/500/1.0/+5 PRVC18/500/1.0/+5 PCAC20/IP34/1.0/+8 Blood Gas Inspired Oxygen 100 100 100 Test 02/27/18 09:12 Lactic Acid Level 5.0 Troponin I 0.21 Date/Time Source Procedure Growth Status 02/23/18 19:27 Blood Peripheral Aerobic Blood Culture - Preliminary NO GROWTH IN 4 DAYS Resulted 02/23/18 19:27 Blood Peripheral Anaerobic Blood Culture - Preliminary NO GROWTH IN 4 DAYS Resulted 02/25/18 18:22 Fluid Other Gram Stain - Final Resulted 02/25/18 18:22 Body Fluid Culture - Preliminary Yeast Species Resulted 02/27/18 13:35 Bronchial Washings Right Lower Lobe Gram Stain Pending Received 02/27/18 13:35 Bronchial Washings Right Lower Lobe Bronchial Culture Pending Received 02/24/18 12:35 Urine Catheterized Urine Urine Culture - Final Kirstin Glabrata Complete 02/18/18 11:00 Wound Foot Gram Stain - Final Complete 02/18/18 11:00 Wound Culture - Final Klebsiella Pneumoniae Esbl Pos Complete Result Diagram: 02/27/18 0045 02/27/18 0045 Imaging Last 48 hours Impressions Chest X-Ray 02/27/18 0000 Signed Impressions: CONCLUSION: Persistent diffuse bilateral pulmonary infiltrates (right worse than left). Chest X-Ray 02/27/18 0000 Signed Impressions: CONCLUSION: 1. No pneumothorax status post placement of left internal jugular central line which has its tip in good position in superior vena cava. 2. Bilateral patchy infiltrates (right worse than left) consistent with asymme tric pulmonary edema and/or pneumonia. Chest X-Ray 02/27/18 0000 Signed Impressions: CONCLUSION: 1. Endotracheal tube and new right IJ central venous catheter now seen. 2. Persistent bilateral mid to lower lung zone pulmonary opacity indicating pu lmonary edema versus consolidation. Abdomen X-Ray 02/27/18 0000 Signed Impressions: CONCLUSION: 1. Gaseous distention of the stomach 2. Nasogastric tube within the fundus of the stomach 3. Cholecystostomy tube noted in place. 4. No evidence of significant intestinal ileus. Assessment and Plan Assessment and Plan 57 year old male with septic shock; acute respiratory failure; likely acute on chronic cholecystitis -NPO -Cholecystostomy tube in place---continue to gravity drainage -Continue antibiotics -Too unstable for any surgical procedure -Discussed with Mother and two sisters---all questions answered and then agree with plan -Discussed with Dr. Dominguez -Thank you for this consult Discussed Condition With Dr. Danika Dominguez Mother + 2 sisters at bedside Attending Statement CONSULTATION NOTE FOR SURGICAL ATTENDING, DR. MARCIO GARNICA I agree with above assessment and plan. Patient seen and examined Discussed with Dr. Dominguez critical care At this time maximal medical therapy is indicated no surgery indicated at this time The exam, history, and the medical decision-making described in the above note were completed with the assistance of the mid-level provider. I reviewed and agree with the findings presented. I attest that I had a [id number] encounter with the patient on the same day, and personally performed and documented my assessment and findings in the medical record. The following services were provided during this hospital visit: Chart data review, vital sign assessments/reviewing monitor data Review of consultations notes if present. Medication orders/review and/or management Ordering and/or reviewing lab tests Ordering and/or interpreting/reviewing x-rays and/or diagnostic studies Care of the patient and discussion of the patient with the care team Documentation time To help prompt me to consider important information that might be impacting today's encounter and assessment, Information from prior notes written by myself or my colleagues may have been "brought forward/copy and pasted" into today's note. Marina Neil/Cold Saw Operator ARNP Feb 27, 2018 16:05 Marcio Garnica MD Feb 28, 2018 12:12
[2018-02-27] MEDS: RESP: ALBUTEROL 2.5 MG/IPRATROPIUM 0.5 MG NEB (SCH) NEB ×2 (16:14→21:53)
[2018-02-27] MEDS: SENNOSIDES 8.6 MG TAB PO SCH (20:00)
[2018-02-27] MEDS: DAPTOmycin INJ 800 MG in SODIUM CHLORIDE 0.9% INJ 100 ML IV SCH (22:10)
[2018-02-27 22:18] LABS: HEMATOCRIT 33.2 % (39.0-51.0); HEMOGLOBIN 10.8 GM/DL (13.0-17.0)
[2018-02-28] VITALS (23 sets, daily range): BP systolic 93–113; BP diastolic 41–56; PULSE 101–122; RESP 3–21; TEMP 98.5–102.6; O2SAT 94–100
[2018-02-28] MEDS: HYDROCORTISONE SOD SUCCINATE 100 MG VIAL IV PUSH SCH ×5 (00:14→23:24)
[2018-02-28] MEDS: PANTOPRAZOLE SODIUM 40 MG VIAL IV PUSH SCH ×3 (00:14→23:23)
[2018-02-28] MEDS: DOPamine INJ 800 MG in DEXTROSE 5% IN WATE 500 ML INJ 480 ML IV PRN ×6 (03:24→20:39)
[2018-02-28] MEDS: RESP: ALBUTEROL 2.5 MG/IPRATROPIUM 0.5 MG NEB (SCH) NEB ×4 (03:46→19:11)
[2018-02-28] MEDS: metroNIDAZOLE 500 MG TAB PO SCH ×3 (05:06→21:52)
[2018-02-28] MEDS: MIDODRINE 5 MG TAB PO SCH ×3 (07:11→17:00)
[2018-02-28] MEDS: VASOPRESSIN 40 U/D5W 100 ML Titrate, Post Cardiac Surgery IV PRN ×2 (07:11)
[2018-02-28] MEDS: NOREPINEPHRINE-DEXTROSE DRIP 250 ML IV PRN ×3 (07:12→20:39)
[2018-02-28] MEDS: ALBUMIN 25% INJ 100 ML IV PRN ×2 (08:45→08:47)
--- NOTE | 2018-02-28 08:45 | HHI.PR ---
cc: Kulwinder Alexis MD Subjective Subjective Notes DAILY PROGRESS NOTE FOR SURGICAL ATTENDING, DR. KULWINDER ALEXIS Patient intubated Patient in the ICU Patient getting dialysis at the bedside Objective Vitals/I&O Vital Signs Date Time Temp Pulse Resp B/P (MAP) Pulse Ox O2 Delivery O2 Flow Rate FiO2 02/28/18 07:55 101 103/43 02/28/18 07:00 99 Mechanical Ventilator 02/28/18 05:11 80 02/28/18 04:00 100.1 12 02/26/18 19:15 5.00 Labs Laboratory Tests Test 02/27/18 09:12 02/27/18 16:20 02/27/18 21:27 02/28/18 05:18 Lactic Acid Level 5.0 3.8 Troponin I 0.21 Blood Gas Puncture Site ART LINE Blood Gas Patient Temperature 98.6 Blood Gas HCO3 22 Blood Gas Base Excess -3.4 Blood Gas Oxygen Saturation 88 Arterial Blood pH 7.33 Arterial Blood Partial Pressure CO2 42 Arterial Blood Partial Pressure O2 64 Arterial Blood Oxygen Content 12.9 Arterial Blood Carboxyhemoglobin 0.9 Arterial Blood Methemoglobin 1.6 Blood Gas Hemoglobin 10.4 Oxygen Delivery Device VENTILATOR Blood Gas Ventilator Setting PC/AC Blood Gas Inspired Oxygen 100 Hemoglobin 10.8 Hematocrit 33.2 Date/Time Source Procedure Growth Status 02/23/18 19:27 Blood Peripheral Aerobic Blood Culture - Preliminary NO GROWTH IN 4 DAYS Resulted 02/23/18 19:27 Blood Peripheral Anaerobic Blood Culture - Preliminary NO GROWTH IN 4 DAYS Resulted 02/25/18 18:22 Fluid Other Gram Stain - Final Resulted 02/25/18 18:22 Body Fluid Culture - Preliminary Yeast Species Resulted 02/27/18 13:35 Bronchial Washings Right Lower Lobe Gram Stain - Final Resulted 02/27/18 13:35 Bronchial Washings Right Lower Lobe Bronchial Culture Pending Resulted 02/24/18 12:35 Urine Catheterized Urine Urine Culture - Final Kirstin Glabrata Complete 02/18/18 11:00 Wound Foot Gram Stain - Final Complete 02/18/18 11:00 Wound Culture - Final Klebsiella Pneumoniae Esbl Pos Complete Radiology Last Impressions Chest X-Ray 02/27/18 Signed Impressions: CONCLUSION: Persistent diffuse bilateral pulmonary infiltrates (right worse than left). Abdomen X-Ray 02/27/18 Signed Impressions: CONCLUSION: 1. Gaseous distention of the stomach 2. Nasogastric tube within the fundus of the stomach 3. Cholecystostomy tube noted in place. 4. No evidence of significant intestinal ileus. Percutaneous Cholangiogram 02/25/18 Signed Impressions: CONCLUSION: 1. Uncomplicated percutaneous cholecystostomy as above. Thick inspissated bile noted. A sample sent for microbiological evaluation. Gall Bladder Ultrasound 02/25/18 Signed Impressions: CONCLUSION: 1. Concern for acute cholecystitis. Abdomen Ultrasound 02/25/18 Signed Impressions: CONCLUSION: 1. Small amount of ascites. 2. Insufficient amount of fluid for paracentesis. Hepatobiliary Scan Nuclear Medicine 02/24/18 Signed Impressions: CONCLUSION: 1. Abnormal hepatic kinetics and delayed biliary intestinal transit both of wh ich may be accounted for by parenchymal liver disease. 2. Nonvisualization of the gallbladder. It is uncertain whether this represent s obstruction of the gallbladder or slow excretion of radiotracer. Abdomen/Pelvis CT 6/10/18 1946 Signed Impressions: CONCLUSION: 1. Worsening moderate bilateral pleural effusions, severe anasarca and mild as cites compared with February 17. 2. Stable pericholecystic fluid and gallbladder wall thickening probably relat ed to anasarca. 3. Stable umbilical hernia. No bowel obstruction or free air. Catheter Placement X-Ray 02/19/18 0000 Signed Impressions: CONCLUSION: Uncomplicated ultrasound and fluoroscopic guided central venous dialysis cathet er placement as above. Renal Ultrasound 02/18/18 0000 Signed Impressions: CONCLUSION: 1. Suspected increased echotexture of the renal parenchyma likely representing medical renal disease. No hydronephrosis is present. 2. There is trace free fluid around the liver. Cardiovascular: Regular Lungs: Other (Ventilator) Abdomen: Non-distended, Other (Cholecystotomy tube in place reducible umbilical hernia abdomen soft nondistended) Extremities: Perfused A/P Problem List: (1) Cholecystostomy care ICD Codes: Z43.4 - Encounter for attention to other artificial openings of digestive tract Status: Acute (2) Gallstones and inflammation of gallbladder with obstruction ICD Codes: K80.19 - Calculus of gallbladder with other cholecystitis with obstruction Status: Acute (3) Cholecystitis Status: Acute (4) DM (diabetes mellitus) ICD Codes: E11.9 - Type 2 diabetes mellitus without complications Status: Chronic (5) Anemia ICD Codes: D64.9 - Anemia, unspecified Status: Chronic (6) Acute kidney injury ICD Codes: N17.9 - Acute kidney failure, unspecified Status: Resolved (7) History of schizophrenia ICD Codes: Z86.59 - Personal history of other mental and behavioral disorders (8) Septic shock due to streptococcal infection ICD Codes: A40.9 - Streptococcal sepsis, unspecified; R65.21 - Severe sepsis with septic shock Status: Resolved (9) GI bleed ICD Codes: K92.2 - Gastrointestinal hemorrhage, unspecified Status: Resolved (10) Sepsis ICD Codes: A41.9 - Sepsis, unspecified organism Status: Resolved (11) Alcohol abuse ICD Codes: F10.10 - Alcohol abuse, uncomplicated Assessment and Plan 57 year old male with septic shock; acute respiratory failure; likely acute on chronic cholecystitis Multiple other medical issues on multiple pressors presently getting dialysis -NPO -Cholecystostomy tube in place---continue to gravity drainage -Continue antibiotics -Too unstable for any surgical procedure that would benefit the patient -Discussed with Dr. Dominguez Attending Statement NOTE FOR SURGICAL ATTENDING, DR. KULWINDER ALEXSI I attest that I had a [id number] encounter with the patient on the same day, and personally performed and documented my assessment and findings in the medical record. The following services were provided during this hospital visit: Chart data review, vital sign assessments/reviewing monitor data Review of consultations notes if present. Medication orders/review and/or management Ordering and/or reviewing lab tests Ordering and/or interpreting/reviewing x-rays and/or diagnostic studies Care of the patient and discussion of the patient with the care team Documentation time To help prompt me to consider important information that might be impacting today's encounter and assessment, Information from prior notes written by myself or my colleagues may have been "brought forward/copy and pasted" into today's note. Problem Qualifiers (1) Gallstones and inflammation of gallbladder with obstruction: Qualified Codes: K80.13 - Calculus of gallbladder with acute and chronic cholecystitis with obstruction (2) Anemia: Qualified Codes: D64.9 - Anemia, unspecified Kulwinder Alexis MD Feb 28, 2018 08:45
[2018-02-28] MEDS: HEPARIN SODIUM - IV 10,000 UNITS/10 ML VIAL PRN (08:46)
[2018-02-28] MEDS: GENTAMICIN SULFATE 20 MG/2 ML VIAL OTHER PRN (08:46)
[2018-02-28] MEDS: EPOETIN ALFA 10,000 UNITS/ML VIAL IV PUSH PRN (08:47)
--- NOTE | 2018-02-28 10:18 | HHI.HCPN ---
Reason for visit a. To assist with evaluation and management of symptoms including:pain and dyspnea b. To assist medical decision maker(s) with: better understanding of current medical conditions; weighing benefits/burdens of medical treatment options; making medical treatment decisions. Subjective/Interval History . General surgery has been by, pt is not a surgical candidate. Has Cholecystocomy tube. Bronch yesterday found copious mccarthy/black secretions. BAL sample collected cultures pending. Remains intubated and sedated on propofol and multiple pressors. Could not elicit history on pain or dyspnea. Family/friend interactions I have spoke with mom today. Goals have not change. "Its in the hands of God." Advance Directives Living Will: Never completed Health Care Surrogate: Never completed Durable Power of Management Internship: Never completed Objective Vital Signs Date Time Temp Pulse Resp B/P (MAP) Pulse Ox O2 Delivery O2 Flow Rate FiO2 02/28/18 09:20 100 80 02/28/18 07:55 101 103/43 02/28/18 07:55 101 103/43 02/28/18 07:12 101 107/49 02/28/18 07:11 101 107/49 02/28/18 07:00 99 Mechanical Ventilator 02/28/18 06:00 103 02/28/18 06:00 103 106/49 02/28/18 06:00 103 106/49 02/28/18 05:11 100 80 02/28/18 04:00 100 02/28/18 04:00 101 02/28/18 04:00 100.1 101 12 107/55 (72) 100 104/50 (68) 02/28/18 02:00 102 02/28/18 02:00 101.3 102 16 110/56 (74) 100 106/50 (68) 02/28/18 01:39 100 100 02/28/18 00:30 106/53 02/28/18 00:00 98.5 105 20 113/51 (71) 100 113/53 (73) 02/28/18 00:00 100 02/28/18 00:00 105 02/28/18 00:00 105 113/53 02/27/18 23:26 106 113/48 02/27/18 23:25 106 113/48 02/27/18 23:25 106 113/48 02/27/18 23:18 106 112/48 02/27/18 23:17 106 113/48 02/27/18 22:00 104 02/27/18 21:53 100 100 02/27/18 20:50 104 102/40 02/27/18 20:14 105 104/41 02/27/18 20:00 98.3 105 20 112/56 (74) 100 103/41 (61) 02/27/18 20:00 105 02/27/18 20:00 100 02/27/18 19:00 100 Mechanical Ventilator 02/27/18 18:00 104 02/27/18 17:41 104 101/54 02/27/18 16:15 98 100 02/27/18 16:00 100 02/27/18 16:00 99.5 104 20 102/52 (69) 97 104/43 (63) 02/27/18 16:00 104 02/27/18 15:20 98.7 104 20 101/54 94 02/27/18 14:00 104 02/27/18 13:23 98.6 104 20 100/50 96 02/27/18 13:18 98.6 103 20 100/50 94 02/27/18 12:49 88 100 02/27/18 12:00 100 02/27/18 12:00 98.2 106 20 96/51 (66) 97 93/41 (58) 02/27/18 12:00 106 02/27/18 11:37 98.2 106 20 101/52 98 02/27/18 11:22 98.1 107 20 102/54 97 02/27/18 10:50 106 106/55 Intake & Output 02/28/18 02/28/18 07:00 19:00 Intake Total 2366 ml 300 ml Output Total 120 ml Balance 2246 ml 300 ml IV Total 2306 ml 300 ml Other 60 ml Output Urine Total 30 ml Drainage Total 90 ml # Bowel Movements 1 Physical Exam CONSTITUTIONAL/GENERAL: This is a 57 year old gentlemen, intubated, sedated TUBES/LINES/DRAINS: right central line, almaraz, ET tube, Cholesectomy tube in place SKIN: No jaundice, rashes, or lesions. Ecchymoses on upper extremities. HEAD: Atraumatic. Normocephalic. EYES: Pupils equal and round and reactive. No scleral icterus. No injection or drainage. Fundi not examined. ENT: Nose without bleeding or purulent drainage. Throat ET tube NECK: Trachea midline. Supple, nontender. No palpable thyroid enlargement or nodularity. CARDIOVASCULAR: Regular rate and rhythm without murmurs, gallops, or rubs. No JVD. Peripheral pulses symmetric. RESPIRATORY/CHEST: Faint Rhonchi bilaterally. GASTROINTESTINAL: Abdomen soft, distended. Bowel sounds present. Cholesectomy tube in place. GENITOURINARY: Without palpable bladder distension. Almaraz catheter in place. MUSCULOSKELETAL: Extremities. lower extremitiy, feet have dressing, c/d/i LYMPHATICS: No palpable cervical or supraclavicular adenopathy. NEUROLOGICAL: intubated and sedated. PSYCHIATRIC: could not examine due to level of responsiveness. Diagnostic Tests Laboratory Laboratory Tests Test 02/25/18 15:55 02/26/18 04:30 02/27/18 00:45 02/27/18 00:50 Calcium Level 7.9 MG/DL (8.5-10.1) 7.5 MG/DL (8.5-10.1) 7.2 MG/DL (8.5-10.1) Protein Corrected Calcium 7.7 MG/DL (8.5-10.1) 7.2 MG/DL (8.5-10.1) Total Protein 7.7 GM/DL (6.4-8.2) 7.6 GM/DL (6.4-8.2) 7.3 GM/DL (6.4-8.2) White Blood Count 11.8 TH/MM3 (4.0-11.0) 20.1 TH/MM3 (4.0-11.0) Red Blood Count 2.87 MIL/MM3 (4.50-5.90) 2.74 MIL/MM3 (4.50-5.90) Hemoglobin 8.3 GM/DL (13.0-17.0) 7.7 GM/DL (13.0-17.0) Hematocrit 26.2 % (39.0-51.0) 25.0 % (39.0-51.0) Mean Corpuscular Volume 91.2 FL (80.0-100.0) 91.3 FL (80.0-100.0) Mean Corpuscular Hemoglobin 28.8 PG (27.0-34.0) 28.2 PG (27.0-34.0) Mean Corpuscular Hemoglobin Concent 31.5 % (32.0-36.0) 30.9 % (32.0-36.0) Red Cell Distribution Width 16.3 % (11.6-17.2) 16.5 % (11.6-17.2) Platelet Count 262 TH/MM3 (150-450) 263 TH/MM3 (150-450) Mean Platelet Volume 10.5 FL (7.0-11.0) 10.7 FL (7.0-11.0) Neutrophils (%) (Auto) 72.7 % (16.0-70.0) 73.8 % (16.0-70.0) Lymphocytes (%) (Auto) 16.1 % (9.0-44.0) 16.9 % (9.0-44.0) Monocytes (%) (Auto) 9.1 % (0.0-8.0) 7.9 % (0.0-8.0) Eosinophils (%) (Auto) 1.4 % (0.0-4.0) 0.9 % (0.0-4.0) Basophils (%) (Auto) 0.7 % (0.0-2.0) 0.5 % (0.0-2.0) Neutrophils # (Auto) 8.6 TH/MM3 (1.8-7.7) 14.8 TH/MM3 (1.8-7.7) Lymphocytes # (Auto) 1.9 TH/MM3 (1.0-4.8) 3.4 TH/MM3 (1.0-4.8) Monocytes # (Auto) 1.1 TH/MM3 (0-0.9) 1.6 TH/MM3 (0-0.9) Eosinophils # (Auto) 0.2 TH/MM3 (0-0.4) 0.2 TH/MM3 (0-0.4) Basophils # (Auto) 0.1 TH/MM3 (0-0.2) 0.1 TH/MM3 (0-0.2) CBC Comment AUTO DIFF AUTO DIFF Differential Total Cells Counted 100 100 Neutrophils % (Manual) 69 % (16-70) 73 % (16-70) Band Neutrophils % 8 % (0-6) 4 % (0-6) Lymphocytes % 8 % (9-44) 13 % (9-44) Monocytes % 8 % (0-8) 8 % (0-8) Eosinophils % 2 % (0-4) Neutrophils # (Manual) 9.7 TH/MM3 (1.8-7.7) 15.9 TH/MM3 (1.8-7.7) Metamyelocytes 1 % (0-1) 2 % (0-1) Myelocytes 4 % (0-0) Nucleated Red Blood Cells 7 /100 WBC (0-0) 16 /100 WBC (0-0) Differential Comment FINAL DIFF MANUAL FINAL DIFF MANUAL Platelet Estimate NORMAL (NORMAL) NORMAL (NORMAL) Platelet Morphology Comment NORMAL (NORMAL) NORMAL (NORMAL) Polychromasia 2.7 % (0.0-1.9) 3.5 % (0.0-1.9) Target Cells 1+ (NORMAL) 1+ (NORMAL) Red Cell Morphology Comment (NORMAL) (NORMAL) Blood Urea Nitrogen 30 MG/DL (7-18) 23 MG/DL (7-18) Creatinine 4.54 MG/DL (0.60-1.30) 3.45 MG/DL (0.60-1.30) Random Glucose 162 MG/DL (74-106) 148 MG/DL (74-106) Albumin 1.8 GM/DL (3.4-5.0) 2.0 GM/DL (3.4-5.0) Phosphorus Level 4.9 MG/DL (2.5-4.9) 4.5 MG/DL (2.5-4.9) Magnesium Level 2.1 MG/DL (1.5-2.5) 2.1 MG/DL (1.5-2.5) Alkaline Phosphatase 380 U/L (45-117) 326 U/L (45-117) Aspartate Amino Transf (AST/SGOT) 71 U/L (15-37) 160 U/L (15-37) Alanine Aminotransferase (ALT/SGPT) 11 U/L (12-78) 11 U/L (12-78) Total Bilirubin 0.6 MG/DL (0.2-1.0) 1.1 MG/DL (0.2-1.0) Sodium Level 131 MEQ/L (136-145) 134 MEQ/L (136-145) Potassium Level 4.3 MEQ/L (3.5-5.1) 4.1 MEQ/L (3.5-5.1) Chloride Level 96 MEQ/L (98-107) 98 MEQ/L (98-107) Carbon Dioxide Level 20.4 MEQ/L (21.0-32.0) 19.9 MEQ/L (21.0-32.0) Anion Gap 15 MEQ/L (5-15) 16 MEQ/L (5-15) Estimat Glomerular Filtration Rate 14 ML/MIN (>89) 19 ML/MIN (>89) Total Creatine Kinase 23 U/L (39-308) Basophilic Stippling FAINT (NORMAL) Prothrombin Time 23.0 SEC (9.8-11.6) Prothromb Time International Ratio 2.3 RATIO Troponin I 0.22 NG/ML (0.02-0.05) Blood Gas Puncture Site ART LINE Blood Gas Patient Temperature 98.6 Blood Gas HCO3 21 mmol/L (22-26) Blood Gas Base Excess -5.3 mmol/L (-2-2) Blood Gas Oxygen Saturation 93 % (90-100) Arterial Blood pH 7.23 (7.380-7.420) Arterial Blood Partial Pressure CO2 53 mmHg (38-42) Arterial Blood Partial Pressure O2 102 mmHg (61-120) Arterial Blood Oxygen Content 10.2 Vol % (12.0-20.0) Arterial Blood Carboxyhemoglobin 0.9 % (0-4) Arterial Blood Methemoglobin 1.5 % (0-2) Blood Gas Hemoglobin 7.6 G/DL (12.0-16.0) Oxygen Delivery Device VENTILATOR Blood Gas Ventilator Setting PRVC16/500/1.0/+5 Blood Gas Inspired Oxygen 100 % Test 02/27/18 04:56 02/27/18 08:35 02/27/18 09:12 02/27/18 16:20 Blood Gas Puncture Site ART LINE ART LINE ART LINE Blood Gas Patient Temperature 98.6 98.6 98.6 Blood Gas HCO3 19 mmol/L (22-26) 22 mmol/L (22-26) 22 mmol/L (22-26) Blood Gas Base Excess -8.4 mmol/L (-2-2) -4.5 mmol/L (-2-2) -3.4 mmol/L (-2-2) Blood Gas Oxygen Saturation 87 % (90-100) 83 % (90-100) 88 % (90-100) Arterial Blood pH 7.15 (7.380-7.420) 7.25 (7.380-7.420) 7.33 (7.380-7.420) Arterial Blood Partial Pressure CO2 57 mmHg (38-42) 51 mmHg (38-42) 42 mmHg (38-42) Arterial Blood Partial Pressure O2 77 mmHg (61-120) 61 mmHg (61-120) 64 mmHg (61-120) Arterial Blood Oxygen Content 9.4 Vol % (12.0-20.0) 9.0 Vol % (12.0-20.0) 12.9 Vol % (12.0-20.0) Arterial Blood Carboxyhemoglobin 0.6 % (0-4) 1.0 % (0-4) 0.9 % (0-4) Arterial Blood Methemoglobin 1.5 % (0-2) 1.7 % (0-2) 1.6 % (0-2) Blood Gas Hemoglobin 7.6 G/DL (12.0-16.0) 7.6 G/DL (12.0-16.0) 10.4 G/DL (12.0-16.0) Oxygen Delivery Device VENTILATOR VENTILATOR VENTILATOR Blood Gas Ventilator Setting PRVC18/500/1.0/+5 PCAC20/IP34/1.0/+8 PC/AC Blood Gas Inspired Oxygen 100 % 100 % 100 % Lactic Acid Level 5.0 mmol/L (0.4-2.0) Troponin I 0.21 NG/ML (0.02-0.05) Test 02/27/18 21:27 02/28/18 05:18 Hemoglobin 10.8 GM/DL (13.0-17.0) Hematocrit 33.2 % (39.0-51.0) Lactic Acid Level 3.8 mmol/L (0.4-2.0) Result Diagram: 02/27/18212602/27/18 0045 Microbiology Microbiology Date/Time Source Procedure Growth Status 02/25/18 18:22 Fluid Other Gram Stain - Final Resulted 02/25/18 18:22 Body Fluid Culture - Preliminary Yeast Species Resulted 02/27/18 13:35 Bronchial Washings Right Lower Lobe Gram Stain - Final Resulted 02/27/18 13:35 Bronchial Washings Right Lower Lobe Bronchial Culture Pending Resulted 02/27/18 08:45 Sputum Endotracheal Gram Stain - Final Resulted 02/27/18 08:45 Sputum Endotracheal Sputum Culture Pending Resulted Imaging Microbiology Date/Time Source Procedure Growth Status 02/27/18 13:35 Bronchial Washings Right Lower Lobe Gram Stain - Final Resulted 02/27/18 13:35 Bronchial Washings Right Lower Lobe Bronchial Culture Pending Resulted Assessment and Plan Disease Oriented Problem List: (1) Respiratory failure (2) Acute on chronic renal failure (3) Sepsis (4) Ulcer of left foot due to type 2 diabetes mellitus (5) Chronic disease anemia (6) Pleural effusion (7) History of schizophrenia (8) Hepatitis (9) Cholecystitis Symptom Scale: (1) Pain 0-10 Scale: Unable to quantify (too confused today.) (2) Dyspnea 0-10 Scale: Unable to quantify Pertinent Non-Medical Issues Psychosocial:Pt not . no children. Lives with parents. 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 Spiritual: uatsdin, not zoroastrian Legal: Proxy would be pt's parents. Ethical issues impacting care: none. Important Contacts Maryuri [phone] (sister RN) Rosana Yanes [phone] or [phone] (mother) Alexei Yanes [phone] or [phone] (father) Prognosis 57 year old with chronic wounds, sepsis, acute on chronic renal failure. Sepsis. Increasint LFTs with cholecystetitis, not a surgical candidate. Coffe ground emesis. Intubated, PEA, cpr. requiring multiple pressors. Prognosis appears to be poor overall. Code Status: Full Code Plan == Capacity- no capacity to make medical decisions. intubated sedated. == Code: Full. == Health care decision maker- Not , no children, under [place] statuettes it will be pt's parents who are proxy. Pt's father is ill. Pt's mother is healthcare surrogate. == goals of treatment: Spoke with Mom today. I Goals have not change. Very Aggressive goals of care. "Its in the hands of God." I Symptom: Pain- In the past complains mostly of back pain. He lower ext wound, , , . currently intubated, sedated propobol dyspnea- on ventilator. no med rec. Palliative care will continue to follow, family has palliative care contact information. Attestation To help prompt me to consider important information that might be impacting today's encounter and assessment, information from prior notes written by myself or my colleagues may have been "brought forward" into today's note. My signature on this note, however, is an attestation that I personally performed the exam, history, and/or decision-making noted today, and, unless otherwise indicated, the interactions with patient, family, and staff as well as the review of records all occurred today. I also attest that the listed assessment and stated plan reflect my best clinical judgment today based on the combination of historical information, prior notes, and today's exam/ interactions. When time spent is documented, it refers only to time spent today by the signer, or if indicated, combined time spent today by collaborating physician/nurse practitioner. Lon Darden MD Feb 28, 2018 10:18
--- NOTE | 2018-02-28 11:52 | HHI.IDPN ---
Note Infectious Disease Note Patient is on the ventilator. Post cardiopulmonary arrest. Unresponsive. Sedated. Just finished hemodialysis. Blood pressure was dropping during hemodialysis. Currently on on Levophed 12 mcg, phenylephrine 110 mcg and dopamine. Afebrile. Sputum culture pending Percutaneous cholecystostomy tube placed 02/25. 57-year-old male, came from the retirement, brought into the hospital for abnormal routine labs showing anemia, hyponatremia, and worsening renal function. Patient was hospitalized last month and at that time he had group A strep septicemia as well as bilateral foot ulcers with infection. During that hospitalization he also had acute kidney injury and it improved but not to normal limits. Current Medications Medications (Trade) Dose Ordered Sig/Portia Route PRN Reason Start Time Stop Time Status Last Admin Dose Admin Sodium Chloride (NS Flush) 2 ml UNSCH PRN IV FLUSH FLUSH AFTER USING IV ACCESS 02/17/18 19:45 Sodium Chloride (NS Flush) 2 ml BID IV FLUSH 02/17/18 21:00 02/27/18 21:04 Acetaminophen (Tylenol) 650 mg Q4H PRN PO TEMP > 100.4 02/17/18 19:45 Metoclopramide HCl (Reglan Inj) 5 mg Q6H PRN IV PUSH NAUSEA OR VOMITING 02/17/18 19:45 Naloxone HCl (Narcan Inj) 0.4 mg UNSCH PRN IV PUSH SEE LABEL COMMENTS 02/17/18 19:45 Magnesium Hydroxide (Milk Of Magnesia Liq) 30 ml Q12H PRN PO Mild constipation 02/17/18 19:45 Bisacodyl (Dulcolax Supp) 10 mg DAILY PRN RECTAL SEVERE CONSITIPATION 02/17/18 19:45 Lactulose (Lactulose Liq) 30 ml DAILY PRN PO SEVERE CONSITIPATION 02/17/18 19:45 Amlodipine Besylate (Norvasc) 10 mg DAILY PO 02/18/18 09:00 Future Hold 02/19/18 08:47 Ferrous Sulfate (Ferrous Sulfate) 325 mg DAILY PO 02/18/18 09:00 02/27/18 10:04 Acetaminophen/ Hydrocodone Bitart ([place] 10-325 Mg) 1 tab BID PRN PO PAIN SCALE 1 TO 10 02/17/18 20:00 Future Hold 02/26/18 20:23 Hydroxyzine Pamoate (Vistaril) 50 mg BID PO 02/17/18 21:00 02/27/18 21:03 Metronidazole (Flagyl) 500 mg Q8HR PO 02/17/18 22:00 02/28/18 05:06 Heparin Sodium (Porcine) (Heparin Central Flush) 500 unit Q12HR IV FLUSH 02/17/18 21:00 02/28/18 00:23 Dextrose (D50w (Vial) Inj) 50 ml UNSCH PRN IV PUSH HYPOGLYCEMIA-SEE COMMENTS 02/17/18 20:30 Glucagon (Glucagon Inj) 1 mg UNSCH PRN OTHER HYPOGLYCEMIA-SEE COMMENTS 02/17/18 20:30 Insulin Aspart (NovoLOG SUPPLEMENTAL SCALE) 1 ACHS SLIDING SCALE SQ 02/17/18 21:00 02/27/18 21:17 Thioridazine HCl (Mellaril) 200 mg DAILY PO 02/18/18 09:00 02/27/18 10:04 Sodium Chloride 1,000 ml @ 0 mls/hr Q0M PRN OTHER For Prime & Rinse Back 02/19/18 09:35 02/26/18 11:02 Heparin Sodium (Porcine) (Heparin Inj) 8,000 units UNSCH PRN IV FLUSH WITH DIALYSIS 02/19/18 09:45 02/22/18 12:40 Sodium Chloride 1,000 ml @ 200 mls/hr Q5H PRN IV WITH DIALYSIS 02/19/18 09:35 Sodium Chloride 1,000 ml @ 0 mls/hr Q0M PRN OTHER WITH DIALYSIS 02/19/18 09:35 Mannitol (Mannitol Inj) 12.5 gm UNSCH PRN IV WITH DIALYSIS 02/19/18 09:45 02/28/18 08:46 Albumin Human 100 ml @ 60 mls/hr UNSCH PRN IV WITH DIALYSIS 02/19/18 09:45 02/28/18 08:47 Sodium Chloride (NS Flush) 5 ml UNSCH PRN IV FLUSH WITH DIALYSIS 02/19/18 09:45 Heparin Sodium (Porcine) (Heparin Inj) UNSCH PRN .XX WITH DIALYSIS 02/19/18 09:45 02/28/18 08:46 Gentamicin Sulfate (Gentamicin Inj) 20 mg UNSCH PRN OTHER WITH DIALYSIS 02/19/18 09:45 02/28/18 08:46 Ondansetron HCl (Zofran Odt) 4 mg UNSCH PRN PO WITH DIALYSIS 02/19/18 09:45 02/24/18 20:42 Acetaminophen (Tylenol) 650 mg UNSCH PRN PO for headach, pain, temp > 101F 02/19/18 09:45 Diphenhydramine HCl (Benadryl) 25 mg UNSCH PRN PO for hives/itching/anaphylaxis 02/19/18 09:45 Nitroglycerin (Nitrostat Sl) 0.4 mg UNSCH PRN SL CHEST PAIN 02/19/18 09:45 Clonidine (Catapres) 0.1 mg UNSCH PRN PO for BP > 180/100 X 2 readings 02/19/18 09:45 Epoetin Sloan (Epogen Inj) 10,000 units UNSCH PRN IV PUSH WITH DIALYSIS 02/19/18 09:45 02/28/18 08:47 Gelatin (Gelfoam 12 Mm/7 Mm Top) 1 foam UNSCH PRN TOP SEE LABEL COMMENTS 02/19/18 09:45 Sodium Chloride (NS Flush) UNSCH PRN IV FLUSH SEE PROTOCOL 02/19/18 13:15 Heparin Sodium (Porcine) (Heparin Inj) UNSCH PRN IV FLUSH SEE PROTOCOL 02/19/18 13:15 Fluconazole (Diflucan) 200 mg DAILY PO 02/21/18 14:30 02/28/18 14:29 02/27/18 10:03 Miscellaneous Information ([facility] [employer] Nursing Information) Patient in critical care unit? Ass... [id number] .XX 02/23/18 03:00 Norepinephrine Bitartrate 250 ml @ 7.5 mls/hr TITRATE PRN IV Blood pressure management 02/23/18 05:15 02/28/18 07:12 Terbutaline Sulfate (Brethine Inj) 1 mg UNSCH PRN SQ For Extravasation 02/23/18 05:15 Midodrine (Proamatine) 10 mg TID@07,12,17 PO 02/23/18 12:00 02/28/18 07:11 Micafungin Sodium 100 mg/Sodium Chloride 100 ml @ 100 mls/hr Q24H IV 02/23/18 11:00 02/27/18 12:43 Promethazine HCl (Phenergan Inj) 12.5 mg Q6H PRN IV-CENTRAL nausea/vomiting 02/23/18 22:00 02/24/18 22:16 Hydromorphone HCl (Dilaudid Pf Inj) 1 mg Q4H PRN IV PUSH pain 4-10 02/23/18 23:00 Future Hold 02/24/18 08:10 Meropenem 500 mg/ Sodium Chloride 100 ml @ 200 mls/hr Q12HR IV 02/24/18 10:00 02/27/18 21:06 Vasopressin 40 units/Dextrose 100 ml @ 1.5 mls/hr TITRATE PRN IV Blood Pressure Management 02/24/18 09:45 02/28/18 07:11 Sennosides (Senokot) 17.2 mg Q12H PO 02/24/18 20:00 02/26/18 19:59 Pantoprazole Sodium (Protonix Inj) 40 mg Q12H IV PUSH 02/27/18 01:00 02/28/18 00:14 Chlorhexidine Gluconate (Peridex 0.12% Liq) 15 ml BID@08,20 MT 02/27/18 08:00 02/27/18 21:06 Fentanyl Citrate 250 ml @ 5 mls/hr TITRATE PRN IV SEDATION 02/27/18 01:00 02/27/18 06:21 Dopamine HCl 800 mg/Dextrose 500 ml @ 11.02 mls/ hr TITRATE PRN IV Blood Pressure Management 02/27/18 05:00 02/28/18 03:24 Phenylephrine HCl 80 mg/Dextrose 500 ml @ 15 mls/hr TITRATE PRN IV Blood pressure Management 02/27/18 06:30 02/27/18 23:18 Hydrocortisone Sodium Succinate (SoluCORTEF INJ) 50 mg Q6HR IV PUSH 02/27/18 12:00 02/28/18 05:06 Propofol 100 ml @ 3.057 mls/ hr TITRATE PRN IV SEDATION 02/27/18 08:45 02/27/18 23:18 Albuterol/ Ipratropium (Duoneb Neb) 1 ampule Q6HR NEB NEB 02/27/18 16:00 02/28/18 09:25 Albuterol/ Ipratropium (Duoneb Neb) 1 ampule Q2HR NEB PRN NEB WHEEZING 02/27/18 13:15 Linezolid 300 ml @ 300 mls/hr Q12H IV 02/28/18 09:00 Past Medical History Bilateral foot cellulitis/abscess with group a strep septicemia (on cefazolin and Flagyl until 02/27/18 per infectious disease) Acute kidney injury requiring hemodialysis C. 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 Objective Vital Signs Date Time Temp Pulse Resp B/P (MAP) Pulse Ox O2 Delivery O2 Flow Rate FiO2 02/28/18 09:20 100 80 02/28/18 07:55 101 103/43 02/28/18 07:55 101 103/43 02/28/18 07:12 101 107/49 02/28/18 07:11 101 107/49 02/28/18 07:00 99 Mechanical Ventilator 02/28/18 06:00 103 02/28/18 06:00 103 106/49 02/28/18 06:00 103 106/49 02/28/18 05:11 100 80 02/28/18 04:00 100 02/28/18 04:00 101 02/28/18 04:00 100.1 101 12 107/55 (72) 100 104/50 (68) 02/28/18 02:00 102 02/28/18 02:00 101.3 102 16 110/56 (74) 100 106/50 (68) 02/28/18 01:39 100 100 02/28/18 00:30 106/53 02/28/18 00:00 98.5 105 20 113/51 (71) 100 113/53 (73) 02/28/18 00:00 100 02/28/18 00:00 105 02/28/18 00:00 105 113/53 02/27/18 23:26 106 113/48 02/27/18 23:25 106 113/48 02/27/18 23:25 106 113/48 02/27/18 23:18 106 112/48 02/27/18 23:17 106 113/48 02/27/18 22:00 104 02/27/18 21:53 100 100 02/27/18 20:50 104 102/40 02/27/18 20:14 105 104/41 02/27/18 20:00 98.3 105 20 112/56 (74) 100 103/41 (61) 02/27/18 20:00 105 02/27/18 20:00 100 02/27/18 19:00 100 Mechanical Ventilator 02/27/18 18:00 104 02/27/18 17:41 104 101/54 02/27/18 16:15 98 100 02/27/18 16:00 100 02/27/18 16:00 99.5 104 20 102/52 (69) 97 104/43 (63) 02/27/18 16:00 104 02/27/18 15:20 98.7 104 20 101/54 94 02/27/18 14:00 104 02/27/18 13:23 98.6 104 20 100/50 96 02/27/18 13:18 98.6 103 20 100/50 94 02/27/18 12:49 88 100 02/27/18 12:00 100 02/27/18 12:00 98.2 106 20 96/51 (66) 97 93/41 (58) 02/27/18 12:00 106 Laboratory Tests Test 02/27/18 00:45 02/27/18 21:27 White Blood Count 20.1 TH/MM3 Red Blood Count 2.74 MIL/MM3 Hemoglobin 7.7 GM/DL 10.8 GM/DL Hematocrit 25.0 % 33.2 % Mean Corpuscular Volume 91.3 FL Mean Corpuscular Hemoglobin 28.2 PG Mean Corpuscular Hemoglobin Concent 30.9 % Red Cell Distribution Width 16.5 % Platelet Count 263 TH/MM3 Mean Platelet Volume 10.7 FL Neutrophils (%) (Auto) 73.8 % Lymphocytes (%) (Auto) 16.9 % Monocytes (%) (Auto) 7.9 % Eosinophils (%) (Auto) 0.9 % Basophils (%) (Auto) 0.5 % Neutrophils # (Auto) 14.8 TH/MM3 Lymphocytes # (Auto) 3.4 TH/MM3 Monocytes # (Auto) 1.6 TH/MM3 Eosinophils # (Auto) 0.2 TH/MM3 Basophils # (Auto) 0.1 TH/MM3 CBC Comment AUTO DIFF Differential Total Cells Counted 100 Neutrophils % (Manual) 73 % Band Neutrophils % 4 % Lymphocytes % 13 % Monocytes % 8 % Neutrophils # (Manual) 15.9 TH/MM3 Metamyelocytes 2 % Nucleated Red Blood Cells 16 /100 WBC Differential Comment FINAL DIFF MANUAL Platelet Estimate NORMAL Platelet Morphology Comment NORMAL Polychromasia 3.5 % Basophilic Stippling FAINT Target Cells 1+ Red Cell Morphology Comment Laboratory Tests Test 02/27/18 00:45 02/27/18 09:12 02/28/18 05:18 Blood Urea Nitrogen 23 MG/DL Creatinine 3.45 MG/DL Random Glucose 148 MG/DL Total Protein 7.3 GM/DL Albumin 2.0 GM/DL Calcium Level 7.2 MG/DL Phosphorus Level 4.5 MG/DL Magnesium Level 2.1 MG/DL Alkaline Phosphatase 326 U/L Aspartate Amino Transf (AST/SGOT) 160 U/L Alanine Aminotransferase (ALT/SGPT) 11 U/L Total Bilirubin 1.1 MG/DL Sodium Level 134 MEQ/L Potassium Level 4.1 MEQ/L Chloride Level 98 MEQ/L Carbon Dioxide Level 19.9 MEQ/L Anion Gap 16 MEQ/L Estimat Glomerular Filtration Rate 19 ML/MIN Protein Corrected Calcium 7.2 MG/DL Troponin I 0.22 NG/ML 0.21 NG/ML Lactic Acid Level 5.0 mmol/L 3.8 mmol/L Microbiology Date/Time Source Procedure Growth Status 02/25/18 18:22 Fluid Other Gram Stain - Final Complete 02/25/18 18:22 Body Fluid Culture - Final Kirstin Glabrata Complete 02/27/18 13:35 Bronchial Washings Right Lower Lobe Gram Stain - Final Resulted 02/27/18 13:35 Bronchial Washings Right Lower Lobe Bronchial Culture Pending Resulted 02/27/18 08:45 Sputum Endotracheal Gram Stain - Final Resulted 02/27/18 08:45 Sputum Endotracheal Sputum Culture Pending Resulted Imaging: Chest X-Ray 02/27/18 0000 Signed Impressions: CONCLUSION: 1. No pneumothorax status post placement of left internal jugular central line which has its tip in good position in superior vena cava. 2. Bilateral patchy infiltrates (right worse than left) consistent with asymme tric pulmonary edema and/or pneumonia. Chest X-Ray 02/27/18 Signed Impressions: CONCLUSION: 1. Endotracheal tube and new right IJ central venous catheter now seen. 2. Persistent bilateral mid to lower lung zone pulmonary opacity indicating pu lmonary edema versus consolidation. Abdomen X-Ray 02/27/18 Signed Impressions: CONCLUSION: 1. Gaseous distention of the stomach 2. Nasogastric tube within the fundus of the stomach 3. Cholecystostomy tube noted in place. 4. No evidence of significant intestinal ileus. Percutaneous Cholangiogram 02/25/18 Signed Impressions: CONCLUSION: 1. Uncomplicated percutaneous cholecystostomy as above. Thick inspissated bile noted. A sample sent for microbiological evaluation. Gall Bladder Ultrasound 02/25/18 Signed Impressions: CONCLUSION: 1. Concern for acute cholecystitis. Abdomen Ultrasound 02/25/18 Signed Impressions: CONCLUSION: 1. Small amount of ascites. 2. Insufficient amount of fluid for paracentesis. Abdomen/Pelvis CT 02/23/181945 Signed Impressions: CONCLUSION: 1. Worsening moderate bilateral pleural effusions, severe anasarca and mild as cites compared with February 17. 2. Stable pericholecystic fluid and gallbladder wall thickening probably relat ed to anasarca. 3. Stable umbilical hernia. No bowel obstruction or free air. Catheter Placement X-Ray 02/19/18 Signed Impressions: CONCLUSION: Uncomplicated ultrasound and fluoroscopic guided central venous dialysis cathet er placement as above. Renal Ultrasound 02/18/18 Signed Impressions: CONCLUSION: 1. Suspected increased echotexture of the renal parenchyma likely representing medical renal disease. No hydronephrosis is present. 2. There is trace free fluid around the liver. Chest X-Ray 02/17/18 Signed Impressions: CONCLUSION: 1. Cardiomegaly with plain film findings suggesting some degree of vascular co ngestion or volume overload. 2. Left basilar consolidation/effusion. Physical Exam GENERAL: Unresponsive on the ventilator. HEENT: Pupils reactive to light. No icterus. Slightly dry oral mucosa. NECK: Supple without adenopathy or swelling. LUNGS: Bibasilar rhonchi. HEART: Irregular S1 and S2. No murmurs or rubs or gallops. ABDOMEN: Distended, soft, decreased bowel sounds. EXTREMITIES: No clubbing or cyanosis. 1+ edema of the hands. Hands and feet are cool to touch. SKIN: No rash. NEUROLOGIC: Unable to assess. PSYCH: Unable to assess. LINE: No evidence of infection, Dc on the right chest and right IJ Vas- Cath IMPRESSION Cardiopulmonary arrest. Sepsis severe.. Aspiration pneumonia. Sputum culture pending. Acute cholecystitis. Cholecystostomy fluid has Kirstin glabrata.. Group A Strep sepsis from foot infection, better Treatment is due to be completed on February 27. (+) wound C/S with Kleb ESBL+ - colonization, wound looks clean and no evidence of infection Kirstin UTI Renal failure, on HD Hx C diff colitis Patient remains very critically ill. RECOMMENDATION Discontinue daptomycin. Begin linezolid. Continue Meropenem Continue Micafungin. Stop fluconazole. Monitor white blood cell count. Monitor sputum culture. Follow the clinical status. Sen Washington MD Feb 28, 2018 11:52
--- NOTE | 2018-02-28 12:55 | HHI.NPPN ---
Subjective Renal Failure: Acute Interval History Remains intubated, unresponsive. On multiple pressors, hypotensive. Anuric. Dialyzed today, 1.3L fluid removal. (Laura Quesada) Review of Systems General General Remarks unable to obtain (Laura Quesada) Objective Data Data 02/28/18 03/01/18 19:00 07:00 Intake Total 300 ml Output Total 1500 ml Balance -1200 ml IV Total 300 ml Hemodialysis 1500 ml Vital Signs Date Time Temp Pulse Resp B/P (MAP) Pulse Ox O2 Delivery O2 Flow Rate FiO2 02/28/18 09:20 100 80 02/28/18 07:55 101 103/43 02/28/18 07:55 101 103/43 02/28/18 07:12 101 107/49 02/28/18 07:11 101 107/49 02/28/18 07:00 99 Mechanical Ventilator 02/28/18 06:00 103 02/28/18 06:00 103 106/49 02/28/18 06:00 103 106/49 02/28/18 05:11 100 80 02/28/18 04:00 100 02/28/18 04:00 101 02/28/18 04:00 100.1 101 12 107/55 (72) 100 104/50 (68) 02/28/18 02:00 102 02/28/18 02:00 101.3 102 16 110/56 (74) 100 106/50 (68) 02/28/18 01:39 100 100 02/28/18 00:30 106/53 02/28/18 00:00 98.5 105 20 113/51 (71) 100 113/53 (73) 02/28/18 00:00 100 02/28/18 00:00 105 02/28/18 00:00 105 113/53 02/27/18 23:26 106 113/48 02/27/18 23:25 106 113/48 02/27/18 23:25 106 113/48 02/27/18 23:18 106 112/48 02/27/18 23:17 106 113/48 02/27/18 22:00 104 02/27/18 21:53 100 100 02/27/18 20:50 104 102/40 02/27/18 20:14 105 104/41 02/27/18 20:00 98.3 105 20 112/56 (74) 100 103/41 (61) 02/27/18 20:00 105 02/27/18 20:00 100 02/27/18 19:00 100 Mechanical Ventilator 02/27/18 18:00 104 02/27/18 17:41 104 101/54 02/27/18 16:15 98 100 02/27/18 16:00 100 02/27/18 16:00 99.5 104 20 102/52 (69) 97 104/43 (63) 02/27/18 16:00 104 02/27/18 15:20 98.7 104 20 101/54 94 02/27/18 14:00 104 02/27/18 13:23 98.6 104 20 100/50 96 02/27/18 13:18 98.6 103 20 100/50 94 (Laura Quesada) -: 02/27/18212602/27/18 0045 Microbiology 02/27/18 Gram Stain - Final, Resulted 02/27/18 Bronchial Culture, Resulted Pending Imaging Last 72 hours Impressions Chest X-Ray 02/27/18 0000 Signed Impressions: CONCLUSION: Persistent diffuse bilateral pulmonary infiltrates (right worse than left). Chest X-Ray 02/27/18 0000 Signed Impressions: CONCLUSION: 1. No pneumothorax status post placement of left internal jugular central line which has its tip in good position in superior vena cava. 2. Bilateral patchy infiltrates (right worse than left) consistent with asymme tric pulmonary edema and/or pneumonia. Chest X-Ray 02/27/18 0000 Signed Impressions: CONCLUSION: 1. Endotracheal tube and new right IJ central venous catheter now seen. 2. Persistent bilateral mid to lower lung zone pulmonary opacity indicating pu lmonary edema versus consolidation. Abdomen X-Ray 02/27/18 0000 Signed Impressions: CONCLUSION: 1. Gaseous distention of the stomach 2. Nasogastric tube within the fundus of the stomach 3. Cholecystostomy tube noted in place. 4. No evidence of significant intestinal ileus. Tubes & Lines: Vas-Cath, Almaraz Tubes & Lines Comment A line Drip Comment Levophed, dopamine, phenylephrine, propofol, fentanyl (Laura Quesada) Physical Exam General Appearance: No Acute Distress, Malnourished Appearance Remarks chronically ill appearing , skin dusky, intubated, unresponsive (Laura Quesada [employer]GER [employer]RATION) Eyes Eye Exam: Pupils Equal, Pupils Reactive (Laura Quesada [employer]NAGER OF [employer]RATION) Neck Neck Exam: Neck Supple (Laura Quesada [employer]NA[employer] OF [employer]RATION) Pulmonary Resp Exam: Breath Sounds Equal, Crackles Resp Remarks vented (Laura Quesada MANAGER OF [employer]ISTRATION) Cardiology CV Exam: Regular, Normal Sinus Rhythm (Laura Quesada [employer]NAGER OF [employer]RATION) Gastrointestinal/Abdomen GI Exam: Soft, Non-Tender, Distended GI Remarks cholecystostomy tube (Laura Quesada [employer]NAGER OF [employer]ISTRATION) Genitourinary Remarks anuric, almaraz in place (Laura Quesada MANAGER OF [employer]MINISTRATION) Musculoskeletal MS Exam: Joints Intact, Atrophy, Unable to Ambulate (Laura Quesada [employer]NA[employer] OF [employer]RATION) Integumentary Skin Exam: Warm, Dry Skin Remarks multiple wounds on feet, erythema, open blisters noted bilaterally (Laura QuesadaP) Extremeties Extremities Exam: Pedal Pulses Palpable, Moderate Edema, Dependent Edema (Laura Quesada. MANAGER OF [employer]ISTRATION) Neurologic Neuro Exam: Unresponsive, Sedated (Laura Quesada [employer]NAGER OF [employer]RATION) Psychiatric Psych Exam: Appropriate Responses (Laura Quesada) Assessment/Plan Assessment Summary: BISHOP/Acute Renal Failure Electrolyte Assessment: Hyponatremia Problem List: (1) Acute kidney injury ICD Codes: N17.9 - Acute kidney failure, unspecified Plan: Oliguric renal failure. HD initiated 02/19, Recently had cardiac arrest, most likely suffered additional renal injury. He has become anuric. ON HD MWF as needed. HD today with 1.3 L fluid removal. Remains hypotensive despite pressor support, on Levophed, phenylephrine, and dopamine. We are using Vas cath, he will most likely require tunneled dialysis catheter at later date if he survives. Obtain daily labs. Dialysis as needed. Await potential renal recovery. Maintain MAP > 65mmHg. It is unclear if he can tolerate intermittent dialysis given cardiovascular instability. Avoid excessive IVF administration, UF as tolerated with dialysis. Overall Prognosis is very poor. It is unclear if he will need correction dialysis. Declined hospice suggestion. (2) Hyperkalemia ICD Codes: E87.5 - Hyperkalemia Plan: Improved with dialysis, monitor. 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 Stable, continue to monitor. (4) Anemia ICD Codes: D64.9 - Anemia, unspecified Status: Acute Plan: Given 2 units 02/27. On Epogen with HD Follow CBC Avoid IV Venofer given sepsis. (5) DM (diabetes mellitus) ICD Codes: E11.9 - Type 2 diabetes mellitus without complications Status: Chronic Plan: Insulin coverage as needed, maintain blood sugar between 140 and 180. (6) Infected stasis ulcer ICD Codes: I83.209 - Varicose veins of unspecified lower extremity with both ulcer of unspecified site and inflammation Status: Acute Plan: Wound with klebsiella, sensitivity reviewed. Wound care following (7) UTI (urinary tract infection) ICD Codes: N39.0 - Urinary tract infection, site not specified Status: Acute Plan: see below (8) Sepsis ICD Codes: A41.9 - Sepsis, unspecified organism Status: Resolved Plan: ID following Has multiple sources of infection. Gall bladder fluid with guerrero, other cultures reviewed Antibiotics include meropenem, Ancef, and micafungin; fluconazole and daptomycin were stopped. Continue supportive care (9) Abdominal pain ICD Codes: R10.9 - Unspecified abdominal pain Status: Acute Plan: Elevated LFTs, HIDA taken. s/p cholecystectomy tube placement 02/25, will need to remain in place for 3 weeks minimum. (Laura Quesada [facility]) Problem List: (1) Acute kidney injury ICD Codes: N17.9 - Acute kidney failure, unspecified Plan: Oliguric renal failure. HD initiated 02/19, Recently had cardiac arrest, most likely suffered additional renal injury. He has become anuric. ON HD MWF as needed. HD today with 1.3 L fluid removal. Remains hypotensive despite pressor support, on Levophed, phenylephrine, and dopamine. We are using Vas cath, he will most likely require tunneled dialysis catheter at later date if he survives. Obtain daily labs. Dialysis as needed. Await potential renal recovery. Maintain MAP > 65mmHg. It is unclear if he can tolerate intermittent dialysis given cardiovascular instability. Avoid excessive IVF administration, UF as tolerated with dialysis. Overall Prognosis is very poor. It is unclear if he will need long term care pharmacist dialysis. Declined hospice suggestion. (2) Hyperkalemia ICD Codes: E87.5 - Hyperkalemia Plan: Improved with dialysis, monitor. 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 Stable, continue to monitor. (4) Anemia ICD Codes: D64.9 - Anemia, unspecified Status: Acute Plan: Given 2 units 02/27. On Epogen with HD Follow CBC Avoid IV Venofer given sepsis. (5) DM (diabetes mellitus) ICD Codes: E11.9 - Type 2 diabetes mellitus without complications Status: Chronic Plan: Insulin coverage as needed, maintain blood sugar between 140 and 180. (6) Infected stasis ulcer ICD Codes: I83.209 - Varicose veins of unspecified lower extremity with both ulcer of unspecified site and inflammation Status: Acute Plan: Wound with klebsiella, sensitivity reviewed. Wound care following (7) UTI (urinary tract infection) ICD Codes: N39.0 - Urinary tract infection, site not specified Status: Acute Plan: see below (8) Sepsis ICD Codes: A41.9 - Sepsis, unspecified organism Status: Resolved Plan: ID following Has multiple sources of infection. Gall bladder fluid with guerrero, other cultures reviewed Antibiotics include meropenem, Ancef, and micafungin; fluconazole and daptomycin were stopped. Continue supportive care (9) Abdominal pain ICD Codes: R10.9 - Unspecified abdominal pain Status: Acute Plan: Elevated LFTs, HIDA taken. s/p cholecystectomy tube placement 02/25, will need to remain in place for 3 weeks minimum. Plan patient was seen and examined. Dialyzed today. Very poor prognosis. Consider hospice. Likely will not tolerate correction dialysis. (Shaun Mcmahon MD) Problem Qualifiers (1) UTI (urinary tract infection): Qualified Codes: N30.00 - Acute cystitis without hematuria Laura Quesada Feb 28, 2018 12:55 Shaun Mcmahon MD Feb 28, 2018 15:52
[2018-02-28] MEDS: INSULIN ASPART SUPPLEMENTAL SCALE SQ SCH ×3 (14:26→22:06)
[2018-02-28] MEDS: CHLORHEXIDINE 0.12% (ORAL KIT) 15 ML CUP MT SCH ×2 (14:26→20:41)
[2018-02-28] MEDS: MICAFUNGIN INJ 100 MG in SODIUM CHLORIDE 0.9% INJ 100 ML IV SCH (14:27)
[2018-02-28] MEDS: MEROPENEM INJ 500 MG in SODIUM CHLORIDE 0.9% INJ 100 ML IV SCH ×2 (14:27→21:52)
[2018-02-28] MEDS: LINEZOLID 600 MG PREMIX 300 ML IV SCH ×2 (14:27→20:40)
[2018-02-28] MEDS: SENNOSIDES 8.6 MG TAB PO SCH ×2 (14:28→20:00)
[2018-02-28] MEDS: SODIUM CHLORIDE 0.9% FLUSH 10 ML FLUSH IV FLUSH SCH ×2 (14:29→20:40)
--- NOTE | 2018-02-28 15:43 | HHI.GIFU ---
Subjective Remarks Continues in the IMC setting, ventilator dependent Currently receiving fifth treatment of dialysis Drowsy sedated mild, but does arouse Atrial fib heart rate 118 (Alley Alvarado) Objective Vitals I&O Vital Signs Date Time Temp Pulse Resp B/P (MAP) Pulse Ox O2 Delivery O2 Flow Rate FiO2 02/28/18 13:13 96 102/43 02/28/18 12:51 100 70 02/28/18 09:20 100 80 02/28/18 07:55 101 103/43 02/28/18 07:55 101 103/43 02/28/18 07:12 101 107/49 02/28/18 07:11 101 107/49 02/28/18 07:00 99 Mechanical Ventilator 02/28/18 06:00 103 02/28/18 06:00 103 106/49 02/28/18 06:00 103 106/49 02/28/18 05:11 100 80 02/28/18 04:00 100 02/28/18 04:00 101 02/28/18 04:00 100.1 101 12 107/55 (72) 100 104/50 (68) 02/28/18 02:00 102 02/28/18 02:00 101.3 102 16 110/56 (74) 100 106/50 (68) 02/28/18 01:39 100 100 02/28/18 00:30 106/53 02/28/18 00:00 98.5 105 20 113/51 (71) 100 113/53 (73) 02/28/18 00:00 100 02/28/18 00:00 105 02/28/18 00:00 105 113/53 02/27/18 23:26 106 113/48 02/27/18 23:25 106 113/48 02/27/18 23:25 106 113/48 02/27/18 23:18 106 112/48 02/27/18 23:17 106 113/48 02/27/18 22:00 104 02/27/18 21:53 100 100 02/27/18 20:50 104 102/40 02/27/18 20:14 105 104/41 02/27/18 20:00 98.3 105 20 112/56 (74) 100 103/41 (61) 02/27/18 20:00 105 02/27/18 20:00 100 02/27/18 19:00 100 Mechanical Ventilator 02/27/18 18:00 104 02/27/18 17:41 104 101/54 02/27/18 16:15 98 100 02/27/18 16:00 100 02/27/18 16:00 99.5 104 20 102/52 (69) 97 104/43 (63) 02/27/18 16:00 104 I/O 02/27/18 02/27/18 02/27/18 02/28/18 02/28/18 02/28/18 07:00 15:00 23:00 07:00 15:00 23:00 Intake Total 2250 ml 1090 ml 750 ml 2166 ml 300 ml Output Total 20 ml 90 ml 120 ml 1500 ml Balance 2230 ml 1090 ml 660 ml 2046 ml -1200 ml Intake Oral 0 ml IV Total 2000 ml 690 ml 200 ml 2106 ml 300 ml Albumin 250 ml Packed Cells 400 ml 400 ml Blood Product IV Normal Saline Flush 50 ml Tube Irrigant 100 ml Other 60 ml Output Urine Total 10 ml 30 ml 30 ml Drainage Total 10 ml 60 ml 90 ml Hemodialysis 1500 ml # Bowel Movements 1 1 Laboratory Laboratory Tests Test 02/27/18 16:20 02/27/18 21:27 02/28/18 05:18 Blood Gas Puncture Site ART LINE Blood Gas Patient Temperature 98.6 Blood Gas HCO3 22 Blood Gas Base Excess -3.4 Blood Gas Oxygen Saturation 88 Arterial Blood pH 7.33 Arterial Blood Partial Pressure CO2 42 Arterial Blood Partial Pressure O2 64 Arterial Blood Oxygen Content 12.9 Arterial Blood Carboxyhemoglobin 0.9 Arterial Blood Methemoglobin 1.6 Blood Gas Hemoglobin 10.4 Oxygen Delivery Device VENTILATOR Blood Gas Ventilator Setting PC/AC Blood Gas Inspired Oxygen 100 Hemoglobin 10.8 Hematocrit 33.2 Lactic Acid Level 3.8 Date/Time Source Procedure Growth Status 02/23/18 19:27 Blood Peripheral Aerobic Blood Culture - Final NO GROWTH IN 5 DAYS Complete 02/23/18 19:27 Blood Peripheral Anaerobic Blood Culture - Final NO GROWTH IN 5 DAYS Complete 02/25/18 18:22 Fluid Other Gram Stain - Final Complete 02/25/18 18:22 Body Fluid Culture - Final Kirstin Glabrata Complete 02/27/18 13:35 Bronchial Washings Right Lower Lobe Gram Stain - Final Resulted 02/27/18 13:35 Bronchial Washings Right Lower Lobe Bronchial Culture - Preliminary MODERATE GROWTH NORMAL RESPIRATORY FL... Resulted 02/24/18 12:35 Urine Catheterized Urine Urine Culture - Final Kirstin Glabrata Complete 02/18/18 11:00 Wound Foot Gram Stain - Final Complete 02/18/18 11:00 Wound Culture - Final Klebsiella Pneumoniae Esbl Pos Complete Imaging Last Impressions Chest X-Ray 02/27/18 Signed Impressions: CONCLUSION: Persistent diffuse bilateral pulmonary infiltrates (right worse than left). Abdomen X-Ray 02/27/18 Signed Impressions: CONCLUSION: 1. Gaseous distention of the stomach 2. Nasogastric tube within the fundus of the stomach 3. Cholecystostomy tube noted in place. 4. No evidence of significant intestinal ileus. Percutaneous Cholangiogram 02/25/18 Signed Impressions: CONCLUSION: 1. Uncomplicated percutaneous cholecystostomy as above. Thick inspissated bile noted. A sample sent for microbiological evaluation. Gall Bladder Ultrasound 02/25/18 Signed Impressions: CONCLUSION: 1. Concern for acute cholecystitis. Abdomen Ultrasound 02/25/18 Signed Impressions: CONCLUSION: 1. Small amount of ascites. 2. Insufficient amount of fluid for paracentesis. Hepatobiliary Scan Nuclear Medicine 02/24/18 Signed Impressions: CONCLUSION: 1. Abnormal hepatic kinetics and delayed biliary intestinal transit both of wh ich may be accounted for by parenchymal liver disease. 2. Nonvisualization of the gallbladder. It is uncertain whether this represent s obstruction of the gallbladder or slow excretion of radiotracer. Abdomen/Pelvis CT 02/23/181945 Signed Impressions: CONCLUSION: 1. Worsening moderate bilateral pleural effusions, severe anasarca and mild as cites compared with February 17. 2. Stable pericholecystic fluid and gallbladder wall thickening probably relat ed to anasarca. 3. Stable umbilical hernia. No bowel obstruction or free air. Catheter Placement X-Ray 02/19/18 Signed Impressions: CONCLUSION: Uncomplicated ultrasound and fluoroscopic guided central venous dialysis cathet er placement as above. Renal Ultrasound 02/18/18 Signed Impressions: CONCLUSION: 1. Suspected increased echotexture of the renal parenchyma likely representing medical renal disease. No hydronephrosis is present. 2. There is trace free fluid around the liver. Physical Exam HEENT: Normocephalic; atraumatic, overweight, pale CHEST: Respiration synchronized with vent via ETT , diminished breath sounds CARDIAC: Irregular rhythm heart rate 118 ABDOMEN: Distended, soft, bowel sounds active. OG to LIWS , dark drainage SKIN: Scabs lower legs dressing left foot clean dry and intact , heel protectors generalized edema lower extremities no rash; no jaundice. INSPECTOR RUBBER STAMP DIE: Sedated, unresponsive (Alley Alvarado) Assessment and Plan Plan Assessment: - Abdominal pain, reports pain is in both flanks and radiates around to his back. Also complaining of abdominal swelling, states he feels the fluid is so high that it is up to his throat. Denies nausea, vomiting. Can not recall BMs, one documented in chart yesterday. Recent C Diff in January. EGD and colonoscopy by our service in February 2017 --> Significant amount of stool present throughout entire examined colon, incomplete study secondary to poor prep. Normal esophagus, food residue in the entire examined stomach, medium sized ulcer in the gastric antrum. CT abdomen and pelvis WO IV contrast (02/23) Worsening moderate bilateral pleural effusions, severe anasarca and mild ascites compared with February 17. Stable pericholecystic fluid and gallbladder wall thickening probably related to anasarca. Stable umbilical hernia. No bowel obstruction or free air. - Elevated LFTs- was previously drinking daily prior to recent admission and discharge and is currently in rehab facility Previous liver work up: Hepatitis C antibody positive, but genotype and quant undetectable AAT-245 Ceruloplasmin-43 VICKIE positive, titer 1:320 Pattern Nucleolar AMA less than 20 AMA negative Ferritin-2320 Iron-63 TIBC-64 %sat-97.8 (02/25) Pt with continued side and back pain. US abdomen shows insufficient fluid for paracentesis. HIDA scan pending. HFE pending (02/26) Pt reports some improvement in pain today. GB US revealed concern for acute cholecystitis. HIDA scan Abnormal hepatic kinetics and delayed biliary intestinal transit both of which may be accounted for by parenchymal liver disease. Nonvisualization of the gallbladder. It is uncertain whether this represents obstruction of the gallbladder or slow excretion of radiotracer. S/P percutaneous cholecystostomy drain placed by IR yesterday, 80 mL of thick , dark inspissated bile removed, sample sent to micro. Mild leukocytosis- pt on Meropenem and Daptomycin. Pt hypotensive yesterday, ? secondary to septic shock, now on Vasopressin. LFTs continue to trend down, HFE pending. RECONSULT FOR COFFEE GROUND EMESIS VIA OG (02/27) Pt S/P PEA arrest last night with ROSC after 8 minutes of resuscitation. An OG was placed after intubation which revealed a significant amount of coffee grounds, per RN also gastric secretions noted during intubation revealing aspiration. At this time, pt is on 4 pressors and 100% FiO2- he is too unstable for EGD. Will start Protonix gtt, monitor H/H closely and transfuse as needed 02/28/2018, patient remains in the intensive care setting ventilator mild sedation but does arouse but still very weak and, abdomen is round soft, noted generalized edema in his extremities dressing left foot clean dry and intact. NG tube with dark emesis, current hemoglobin 10.8. Receiving fifth dialysis treatment this a.m. labs show reactive hep C, other profile nonreactive, hemochromatosis labs pending, last PT/INR on 02/27/2018 2.3. Patient remains in serious condition. Remains too unstable for any GI procedures including EGD, total transfusions 4 units. Plan: Protonix IV Steroids IV Monitor labs with special attention to hemoglobin Transfuse as indicated Still remains too unstable for EGD, Further recommendations based on clinical course Pt has been seen and examined by myself and Dr. Rajput and this note is written on his behalf (Alley Alvarado) Physician Comments Agree with above assessment and plan. Will follow up with you. (Wali Rajput MD) Alley Alvarado Feb 28, 2018 15:43 Wali Rajput MD Feb 28, 2018 16:30
[2018-02-28] MEDS: PROPOFOL 1000 MG/100 ML INJ 100 ML IV PRN ×2 (16:26→16:59)
[2018-02-28] MEDS: PHENYLEPHRINE INJ 80 MG in DEXTROSE 5% IN WATE 500 ML INJ 492 ML IV PRN ×4 (17:00→21:41)
[2018-02-28 17:57] LABS: AUTOMATED NEUTROPHIL # 12.9 TH/MM3 (1.8-7.7); BASOPHIL % 0.2 % (0.0-2.0); EOSINOPHIL % 0.1 % (0.0-4.0); HEMOGLOBIN 10.5 GM/DL (13.0-17.0); LYMPH % 5.6 % (9.0-44.0); LYMPHOCYTE # 0.8 TH/MM3 (1.0-4.8); MEAN CELL VOLUME 90.5 FL (80.0-100.0); MEAN CORPUSCULAR HEMOGLOBIN 28.8 PG (27.0-34.0); MEAN CORPUSCULAR HGB CONC 31.9 % (32.0-36.0); MEAN PLATELET VOLUME 10.5 FL (7.0-11.0); MONO % 3.8 % (0.0-8.0); MONOCYTE # 0.5 TH/MM3 (0-0.9); NEUT % 90.3 % (16.0-70.0); PLATELET COUNT 282 TH/MM3 (150-450); RED BLOOD COUNT 3.65 MIL/MM3 (4.50-5.90); RED CELL DISTRIBUTION WIDTH 16.6 % (11.6-17.2); WHITE BLOOD COUNT 14.2 TH/MM3 (4.0-11.0)
--- NOTE | 2018-02-28 18:02 | HHI.CCPN ---
Subjective Remarks/Hospital Course 57-year-old male with a past medical history significant for bilateral foot cellulitis/abscess with group a strep septicemia (on cefazolin and Flagyl until 02/27/18 per infectious disease), acute kidney injury requiring hemodialysis, C. difficile, hepatitis C, anemia, diabetes mellitus, schizophrenia and hypertension has been admitted for the evaluation of abnormal labs. The patient currently resides in a assisted and had routine labs done showing anemia, worsening renal function and hyponatremia. The patient complains only of being very tired. He denies any dizziness or loss of consciousness. He was admitted to [facility] floor where he developed profound hypotension refractory to IV fluid bolus. He is admitted to ICU for aggressive IV fluid resuscitation and vasopressors treatment. A wound culture was obtained from the left foot ulcer is now reported as growing Klebsiella ESBL positive. Patient also had an abnormal urinalysis when he came in, and the urine culture is now reported as growing Kirstin glabrata. Subjective: 02/23: Afebrile. Patient sitting up in bed in no acute distress, responding to questions appropriately patient on third liter of IV fluid and remains on norepinephrine currently at 2 mics/minute. Patient's urine culture resulted Kirstin glabrata, however only 50,000 CFU but will initiate micafungin secondary to continued hypotension. Patient's midodrine was increased to 10 mg 3 times daily. Patient was noted to have low calcium level today which has been repleted. Electrolyte and CBC panel pending. 02/24: Last evening the patient complained of severe abdominal pain. CT of the abdomen and pelvis was performed, it showed pericholecystic fluid and gallbladder wall thickening. The patient continues to have abdominal pain the patient has been maintained on an n.p.o. status. HIDA scan pending. GI has been consulted. Patient's hemoglobin 7.9, continues to be hypotensive the patient has been typed and screened plan for transfusion of 1 unit of packed red blood cell. Patient continues on Levophed for vasopressor support. Palliative care was consulted to define goals of care, patient does not want hospice at this time. 02/25: Afebrile. The patient remains n.p.o. at this time. HIDA results pending. The patient required additional pressors now on vasopressin 0.04, in conjunction with norepinephrine at 12mcgs. INR trending upward, 2.3. Vitamin K 10 mg IV 1 dose. Urine culture revealed yeast. Discussed with Dr. Washington today, she knew current antibiotic coverage. 02/26: Afebrile. Patient noted with distended gallbladder on ultrasound last evening. Discussion with invasive radiologist, Dr. Forest Yanes, decision made to perform percutaneous cholecystostomy tube placement. Biliary cultures are pending. Overnight the patient continued to be hypotensive requiring vasopressin and norepinephrine. Patient underwent hemodialysis today with approximately 2.4 L removed. Patient continues on Micafungin,Meropenem, and Daptomycin. 02/27: Overnight at approximately 2355, the patient went into cardiac arrest reported PEA arrest, with ROSC in 8 mins. The patient continues to be severely hypotensive currently on norepinephrine, dopamine, vasopressin. The patient currently has a mixed acidosis and low hemoglobin. Type and screen performed 2 units packed red blood cells to be transfused sodium bicarbonate drip being initiated. Significant leukocytosis this a.m.. INR remains elevated. 02/28: T-max 101 .late entry note. Patient seen at 6:45 AM. Bile fluid positive for Kirstin glabrata. Cholecystostomy tube draining bilious fluid . The patient continues on meropenem and micafungin. The patient continues to be on maximum doses of vasopressors. Sodium bicarbonate infusion discontinued per nephrology patient was hemodialyzed yesterday. Objective Vital Signs Date Time Temp Pulse Resp B/P (MAP) Pulse Ox O2 Delivery O2 Flow Rate FiO2 02/28/18 17:00 105 103/42 02/28/18 16:00 101.9 12 98 02/28/18 16:00 70 02/28/18 07:00 Mechanical Ventilator 02/26/18 19:15 5.00 Intake and Output 02/28/18 02/28/18 03/01/18 08:00 16:00 00:00 Intake Total 1316 ml 200 ml Output Total 120 ml 1500 ml Balance 1196 ml -1300 ml Result Diagram: 02/27/187 02/27/18 0045 Other Results Microbiology Date/Time Source Procedure Growth Status 02/25/18 18:22 Fluid Other Gram Stain - Final Complete 02/25/18 18:22 Body Fluid Culture - Final Kirstin Glabrata Complete Laboratory Tests Test 02/28/18 16:36 Blood Gas Puncture Site ART LINE Blood Gas Patient Temperature 98.6 Blood Gas HCO3 15 mmol/L (22-26) Blood Gas Base Excess -9.6 mmol/L (-2-2) Blood Gas Oxygen Saturation 90 % (90-100) Arterial Blood pH 7.35 (7.380-7.420) Arterial Blood Partial Pressure CO2 28 mmHg (38-42) Arterial Blood Partial Pressure O2 72 mmHg (61-120) Arterial Blood Oxygen Content 13.2 Vol % (12.0-20.0) Arterial Blood Carboxyhemoglobin 0.6 % (0-4) Arterial Blood Methemoglobin 1.5 % (0-2) Blood Gas Hemoglobin 10.3 G/DL (12.0-16.0) Oxygen Delivery Device VENTILATOR Blood Gas Ventilator Setting SEE NOTE Blood Gas Inspired Oxygen 60 % Imaging Last Impressions Chest X-Ray 02/27/18 Signed Impressions: CONCLUSION: 1. Endotracheal tube and new right IJ central venous catheter now seen. 2. Persistent bilateral mid to lower lung zone pulmonary opacity indicating pu lmonary edema versus consolidation. Percutaneous Cholangiogram 02/25/18 Signed Impressions: CONCLUSION: 1. Uncomplicated percutaneous cholecystostomy as above. Thick inspissated bile noted. A sample sent for microbiological evaluation. Gall Bladder Ultrasound 02/25/18 Signed Impressions: CONCLUSION: 1. Concern for acute cholecystitis. Abdomen Ultrasound 02/25/18 Signed Impressions: CONCLUSION: 1. Small amount of ascites. 2. Insufficient amount of fluid for paracentesis. Hepatobiliary Scan Nuclear Medicine 02/24/18 Signed Impressions: CONCLUSION: 1. Abnormal hepatic kinetics and delayed biliary intestinal transit both of wh ich may be accounted for by parenchymal liver disease. 2. Nonvisualization of the gallbladder. It is uncertain whether this represent s obstruction of the gallbladder or slow excretion of radiotracer. Abdomen/Pelvis CT 02/23/181945 Signed Impressions: CONCLUSION: 1. Worsening moderate bilateral pleural effusions, severe anasarca and mild as cites compared with February 17. 2. Stable pericholecystic fluid and gallbladder wall thickening probably relat ed to anasarca. 3. Stable umbilical hernia. No bowel obstruction or free air. Catheter Placement X-Ray 02/19/18 Signed Impressions: CONCLUSION: Uncomplicated ultrasound and fluoroscopic guided central venous dialysis cathet er placement as above. Renal Ultrasound 02/18/18 Signed Impressions: CONCLUSION: 1. Suspected increased echotexture of the renal parenchyma likely representing medical renal disease. No hydronephrosis is present. 2. There is trace free fluid around the liver. Objective Remarks GENERAL: Medically ill-appearing male intubated and sedated SKIN: Warm and dry. HEAD: Normocephalic. EYES: No scleral icterus. No injection or drainage. NECK: Supple, trachea midline. No JVD or lymphadenopathy. CARDIOVASCULAR: Regular rate and rhythm without murmurs, gallops, or rubs. RESPIRATORY: Breath sounds equal bilaterally. No accessory muscle use. GASTROINTESTINAL: Abdomen soft, nondistended. Cholecystostomy tube draining biliary fluid MUSCULOSKELETAL: No cyanosis, or edema. Has ulcers both plantar aspect of feet, clean, with red tissue, no necrotic tissue, no purulence, no periwound erythema. Bilateral dressings on feet C/D I BACK: Nontender without obvious deformity. NEURO EXAM: GCS: 15 Mental Status: The patient is alert and oriented to person, place, and time with normal speech. Cranial Nerves: Visual acuity intact bilaterally. Visual coulter normal in all quadrants. Pupils are round, reactive to light. Extraocular movements are intact without ptosis. Hearing is normal bilaterally. Voice is normal. Tongue protrudes midline and moves symmetrically. GCS 15 A/P Problem List: (1) Rhabdomyolysis ICD Code: M62.82 - Rhabdomyolysis (2) Edema ICD Code: R60.9 - Edema, unspecified (3) Renal insufficiency ICD Code: N28.9 - Disorder of kidney and ureter, unspecified Status: Acute (4) Acute worsening of stage 3 chronic kidney disease ICD Code: N18.3 - Chronic kidney disease, stage 3 (moderate) (5) Septic shock due to streptococcal infection ICD Code: A40.9 - Streptococcal sepsis, unspecified; R65.21 - Severe sepsis with septic shock Status: Resolved (6) History of schizophrenia ICD Code: Z86.59 - Personal history of other mental and behavioral disorders (7) Open wound of left foot ICD Code: S91.302A - Unspecified open wound, left foot, initial encounter Status: Chronic (8) Acute renal failure ICD Code: N17.9 - Acute kidney failure, unspecified Status: Acute (9) DM (diabetes mellitus) ICD Code: E11.9 - Type 2 diabetes mellitus without complications Status: Chronic (10) Ulcer of right lower extremity ICD Code: L97.919 - Non-pressure chronic ulcer of unspecified part of right lower leg with unspecified severity Status: Chronic (11) Chronic disease anemia ICD Code: D63.8 - Anemia in other chronic diseases classified elsewhere Status: Acute (12) Osteomyelitis of ankle or foot ICD Code: M86.9 - Osteomyelitis, unspecified Status: Acute (13) Abscess of right foot ICD Code: L02.611 - Cutaneous abscess of right foot Status: Acute (14) Charcot foot due to diabetes mellitus ICD Code: E11.610 - Type 2 diabetes mellitus with diabetic neuropathic arthropathy Status: Chronic (15) Impaired mobility and activities of daily living ICD Code: Z74.09 - Other reduced mobility Status: Acute (16) Peripheral neuropathy ICD Code: G62.9 - Peripheral neuropathy Status: Acute (17) Uncontrolled diabetes mellitus ICD Code: E11.65 - Uncontrolled diabetes mellitus Status: Acute (18) Infected stasis ulcer ICD Code: I83.209 - Varicose veins of unspecified lower extremity with both ulcer of unspecified site and inflammation Status: Acute (19) Symptomatic anemia ICD Code: D64.9 - Anemia, unspecified Status: Acute (20) PEA (Pulseless electrical activity) ICD Code: I46.9 - Cardiac arrest, cause unspecified Assessment and Plan Plan by systems: Neurologic: Schizophrenia -Continue home dosing Thorazine -Neuro checks per ICU protocol -Provide fentanyl IV infusion for sedation/ analgesia to maintain ventilator synchrony -Hold all daily sedation vacation until clinically indicate -Vistaril placed on hold Respiratory: VDRF Mixed acidosis 02/27 patient intubated 8.0 ETT, S/P Cardiac Arrest (PEA) ABG 7.25/50/ 61/ 21/-4.5 PC Mode weaned to 60% Repeat ABG Bronchodilators every 6 hours scheduled and every 2 hours as needed Cardiovascular Septic shock Hypotension Status post PEA arrest -Continue Levophed, dopamine ,vasopressin, phenylephrine to maintain MAP greater than 65mmHG. -Midrin 10 mg-discontinued -Albumin 5% BID discontinued 02/27 -Hydrocortisone 50 mg every 6 hours FEN/GI: Abdominal pain Stable umbilical hernia Mild ascites Cholecystitis -Sodium bicarbonate infusion dc'd 02/27 per Nephrology -Maintain n.p.o. status while on vasopressors -02/23 CT abdomen and pelvis- stable pericholecystic fluid and gallbladder wall thickening -Scheduled sennosides twice daily -Bowel regimen -Hepatitis C IgG Ab positive - 02/25 Gallbladder ultrasound-Limited sonographic images of the gallbladder were performed. Other visceral structures were not evaluated at this time. The gallbladder is thick walled. It is distended. There is a questionable echogenic stone within the neck. A trace amount of pericholecystic fluid noted. S/P Percutaneous cholecystostomy tube placement F/U biliary culture - GI following Monitor Creatinine Kinase while on daptomycin 02/27-general surgery has been consulted, secondary to possible stone in the neck of the gallbladder -labs values ALT remains the same, alkaline phosphatase decreasing. AST slightly increased but this is also in the setting of chronic liver disease IHD scheduling per Nephrology-1L ( 02/27), 1.5L (02/28) Heme/ID: Septic shock Anemia -Begin sodium bicarbonate infusion -IV antibiotics per ID -02/27 Kirstin glabrata> 100,000 in repeat specimen -wound culture- Klebsiella ESBL, Group A Strep -02/24 type and screen -Transfuse 1 unit PRBC (02/24) -02/25 Biliary culture obtained , F/U results - 02/27 type and screen-planned transfusion 2 units packed red blood cells (Hgb 7.7) - 02/27 Pancultured Endocrine: Diabetes mellitus -Maintain n.p.o. status -Glucose monitoring per ICU protocol -Insulin sliding scale -- SSI Prophylaxis: GI Prophylaxis Famotidine BID DVT Prophylaxis -- SCDs Lines: Right infusaport/ verma. Peripheral IVs 2 Dispo: my billing statement This patient remains critically ill with one or more organ systems which are or may become a threat to life. I have spent in excess of 39 minutes discontinuously in the care and management of this patient. This time is exclusive of procedures, and includes, but is not limited to, evaluation of the patient, review of the medical record, discussions with family, consultants, nursing staff, or respiratory therapy, and documentation in the medical record. No family at bedside Physician Maddi Lewis MD Feb 28, 2018 18:02
[2018-02-28 18:22] LABS: BANDS 4 % (0-6); CORRECTED NUCLEATED RBC 13 /100 WBC (0-0); LYMPHOCYTES 7 % (9-44); MONOCYTES 3 % (0-8); NEUTROPHIL # MANUAL DIFF 12.8 TH/MM3 (1.8-7.7); NUCLEATED RED BLOOD CELL 13 (0-0); POLYS (SEG NEUTROPHILS) 86 % (16-70)
--- NOTE | 2018-02-28 18:49 | RADRPT ---
EXAM DATE: 02/28/2018 6:37 PM EDT AGE/SEX: 57 years / Male INDICATIONS: Difficulty breathing. CLINICAL DATA: This is the patient's initial encounter. Patient reports that signs and symptoms have been present for 1 day and indicates a pain score of 0/10. MEDICAL/SURGICAL HISTORY: None. None. COMPARISON: [facility] – [place], 02/27/[place]. . FINDINGS: Endotracheal tube is in good position. NG enters stomach. Right and left central line is in superior vena cava. Bilateral mostly basilar airspace consolidation, right greater than left with small effusi ons. CONCLUSION: Bilateral airspace disease, right greater than left. Support apparatus unchanged. Electronically signed by: Marcio Hansen MD 02/28/2018 6:47 PM EDT
[2018-02-28 19:01] LABS: BICARBONATE 14.6 MEQ/L (21.0-32.0); CALCIUM 7.1 MG/DL (8.5-10.1); CREATININE 3.3 MG/DL (0.60-1.30); MAGNESIUM 1.9 MG/DL (1.5-2.5); PHOSPHORUS 3.3 MG/DL (2.5-4.9)
[2018-02-28 19:31] LABS: TOTAL PROTEIN 6.6 GM/DL (6.4-8.2)
[2018-02-28 19:57] LABS: CALCIUM-PROTEIN CORRECTED 7.4 MG/DL (8.5-10.1)
[2018-02-28] MEDS ORDERED: CALCIUM GLUCONATE INJ 2 GM in SODIUM CHLORIDE 0.9% INJ 100 ML IV ONE (21:15)
[2018-02-28] MEDS: fentaNYL DRIP 250 ML IV PRN (21:21)
[2018-03-01] VITALS (24 sets, daily range): BP systolic 76–108; BP diastolic 43–75; PULSE 82–115; RESP 20–24; TEMP 95.4–100.9; O2SAT 98–100
[2018-03-01] MEDS: VASOPRESSIN 40 U/D5W 100 ML Titrate, Post Cardiac Surgery IV PRN ×2 (01:38)
[2018-03-01] MEDS: NOREPINEPHRINE-DEXTROSE DRIP 250 ML IV PRN ×5 (02:07→23:33)
[2018-03-01] MEDS: RESP: ALBUTEROL 2.5 MG/IPRATROPIUM 0.5 MG NEB (SCH) NEB ×4 (03:06→20:52)
[2018-03-01] MEDS: DOPamine INJ 800 MG in DEXTROSE 5% IN WATE 500 ML INJ 480 ML IV PRN ×6 (03:10→17:54)
[2018-03-01] MEDS: PHENYLEPHRINE INJ 80 MG in DEXTROSE 5% IN WATE 500 ML INJ 492 ML IV PRN ×8 (03:11→19:40)
[2018-03-01 04:19] LABS: BASOPHIL # 0.1 TH/MM3 (0-0.2); BASOPHIL % 0.4 % (0.0-2.0); EOSINOPHIL % 0.2 % (0.0-4.0); HEMATOCRIT 34.7 % (39.0-51.0); HEMOGLOBIN 10.8 GM/DL (13.0-17.0); LYMPH % 10.8 % (9.0-44.0); LYMPHOCYTE # 2.1 TH/MM3 (1.0-4.8); MEAN CELL VOLUME 92.3 FL (80.0-100.0); MEAN CORPUSCULAR HEMOGLOBIN 28.9 PG (27.0-34.0); MEAN CORPUSCULAR HGB CONC 31.3 % (32.0-36.0); MONO % 4.1 % (0.0-8.0); MONOCYTE # 0.8 TH/MM3 (0-0.9); NEUT % 84.5 % (16.0-70.0); PLATELET COUNT 264 TH/MM3 (150-450); RED BLOOD COUNT 3.76 MIL/MM3 (4.50-5.90); RED CELL DISTRIBUTION WIDTH 17.5 % (11.6-17.2)
[2018-03-01 04:50] LABS: ALBUMIN 1.9 GM/DL (3.4-5.0); BICARBONATE 15.3 MEQ/L (21.0-32.0); CREATININE 3.42 MG/DL (0.60-1.30); PHOSPHORUS 4.7 MG/DL (2.5-4.9)
[2018-03-01 05:00] LABS: BANDS 14 % (0-6); CORRECTED NUCLEATED RBC 13 /100 WBC (0-0); LYMPHOCYTES 9 % (9-44); METAMYELOCYTES 1 % (0-1); MONOCYTES 1 % (0-8); NEUTROPHIL # MANUAL DIFF 17.1 TH/MM3 (1.8-7.7); NUCLEATED RED BLOOD CELL 13 (0-0); POLYS (SEG NEUTROPHILS) 75 % (16-70)
[2018-03-01 05:02] LABS: TOXIC VACUOLATION PRESENT (NONE SEEN)
[2018-03-01 05:07] LABS: SPHEROCYTES 1+ (NORMAL)
--- NOTE | 2018-03-01 05:10 | RADRPT ---
EXAM DATE: 03/01/2018 4:51 AM EDT AGE/SEX: 57 years / Male INDICATIONS: Shortness of breath, possible pulmonary disease. CLINICAL DATA: This is the patient's subsequent encounter. Patient reports that signs and symptoms h ave been present for 1 week and indicates a pain score of Nonresponsive. MEDICAL/SURGICAL HISTORY: Cardiovascular disease. Hypertension. Diabetes mellitus type II. G ERD None. COMPARISON: [facility] [place] CHEST SINGLE AP, 02/28/2018. . FINDINGS: A single AP view of the chest demonstrates slight improvement of bilateral airspace disease. Endotrac heal tube, nasogastric tube and bilateral jugular lines are stable. Heart mildly enlarged. The cardio mediastinal contours are unremarkable. Osseous structures are intact. CONCLUSION: Slight improvement of bilateral airspace disease Electronically signed by: Zaid Darden MD 03/01/2018 5:09 AM EDT
[2018-03-01 05:11] LABS: TOTAL PROTEIN 6.8 GM/DL (6.4-8.2)
[2018-03-01 05:21] LABS: CALCIUM-PROTEIN CORRECTED 7.2 MG/DL (8.5-10.1)
[2018-03-01] MEDS: HYDROCORTISONE SOD SUCCINATE 100 MG VIAL IV PUSH SCH ×4 (05:39→23:36)
[2018-03-01] MEDS: metroNIDAZOLE 500 MG TAB PO SCH ×3 (05:39→22:00)
[2018-03-01] MEDS: MIDODRINE 5 MG TAB PO SCH ×3 (06:38→17:51)
[2018-03-01] MEDS: THIORIDAZINE HCL 50 MG TAB PO SCH (10:02)
[2018-03-01] MEDS: SENNOSIDES 8.6 MG TAB PO SCH ×2 (10:09→19:41)
[2018-03-01] MEDS: FERROUS SULFATE 325 MG (65 MG ELEMENTAL IRON) TAB PO SCH (10:10)
[2018-03-01] MEDS: LINEZOLID 600 MG PREMIX 300 ML IV SCH ×2 (10:12→19:42)
[2018-03-01] MEDS: MEROPENEM INJ 500 MG in SODIUM CHLORIDE 0.9% INJ 100 ML IV SCH ×2 (10:12→21:00)
[2018-03-01] MEDS: CHLORHEXIDINE 0.12% (ORAL KIT) 15 ML CUP MT SCH ×2 (10:39→19:40)
[2018-03-01] MEDS: INSULIN ASPART SUPPLEMENTAL SCALE SQ SCH ×4 (10:43→21:57)
[2018-03-01] MEDS: SODIUM CHLORIDE 0.9% FLUSH 10 ML FLUSH IV FLUSH SCH ×2 (10:45→19:42)
[2018-03-01] MEDS: MICAFUNGIN INJ 100 MG in SODIUM CHLORIDE 0.9% INJ 100 ML IV SCH (11:00)
[2018-03-01] MEDS ORDERED: ALBUMIN 5% INJ 250 ML IV ONE ×2 (12:16→13:00)
--- NOTE | 2018-03-01 13:40 | HHI.CCPN ---
Subjective Remarks/Hospital Course 57-year-old male with a past medical history significant for bilateral foot cellulitis/abscess with group a strep septicemia (on cefazolin and Flagyl until 02/27/18 per infectious disease), acute kidney injury requiring hemodialysis, C. difficile, hepatitis C, anemia, diabetes mellitus, schizophrenia and hypertension has been admitted for the evaluation of abnormal labs. The patient currently resides in a longterm and had routine labs done showing anemia, worsening renal function and hyponatremia. The patient complains only of being very tired. He denies any dizziness or loss of consciousness. He was admitted to [facility] floor where he developed profound hypotension refractory to IV fluid bolus. He is admitted to ICU for aggressive IV fluid resuscitation and vasopressors treatment. A wound culture was obtained from the left foot ulcer is now reported as growing Klebsiella ESBL positive. Patient also had an abnormal urinalysis when he came in, and the urine culture is now reported as growing Kirstin glabrata. Subjective: 02/23: Afebrile. Patient sitting up in bed in no acute distress, responding to questions appropriately patient on third liter of IV fluid and remains on norepinephrine currently at 2 mics/minute. Patient's urine culture resulted Kirstin glabrata, however only 50,000 CFU but will initiate micafungin secondary to continued hypotension. Patient's midodrine was increased to 10 mg 3 times daily. Patient was noted to have low calcium level today which has been repleted. Electrolyte and CBC panel pending. 02/24: Last evening the patient complained of severe abdominal pain. CT of the abdomen and pelvis was performed, it showed pericholecystic fluid and gallbladder wall thickening. The patient continues to have abdominal pain the patient has been maintained on an n.p.o. status. HIDA scan pending. GI has been consulted. Patient's hemoglobin 7.9, continues to be hypotensive the patient has been typed and screened plan for transfusion of 1 unit of packed red blood cell. Patient continues on Levophed for vasopressor support. Palliative care was consulted to define goals of care, patient does not want hospice at this time. 02/25: Afebrile. The patient remains n.p.o. at this time. HIDA results pending. The patient required additional pressors now on vasopressin 0.04, in conjunction with norepinephrine at 12mcgs. INR trending upward, 2.3. Vitamin K 10 mg IV 1 dose. Urine culture revealed yeast. Discussed with Dr. Washington today, she knew current antibiotic coverage. 02/26: Afebrile. Patient noted with distended gallbladder on ultrasound last evening. Discussion with invasive radiologist, Dr. Forest Yanes, decision made to perform percutaneous cholecystostomy tube placement. Biliary cultures are pending. Overnight the patient continued to be hypotensive requiring vasopressin and norepinephrine. Patient underwent hemodialysis today with approximately 2.4 L removed. Patient continues on Micafungin,Meropenem, and Daptomycin. 02/27: Overnight at approximately 2355, the patient went into cardiac arrest reported PEA arrest, with ROSC in 8 mins. The patient continues to be severely hypotensive currently on norepinephrine, dopamine, vasopressin. The patient currently has a mixed acidosis and low hemoglobin. Type and screen performed 2 units packed red blood cells to be transfused sodium bicarbonate drip being initiated. Significant leukocytosis this a.m.. INR remains elevated. 02/28: T-max 101 .late entry note. Patient seen at 6:45 AM. Bile fluid positive for Kirstin glabrata. Cholecystostomy tube draining bilious fluid . The patient continues on meropenem and micafungin. The patient continues to be on maximum doses of vasopressors. Sodium bicarbonate infusion discontinued per nephrology patient was hemodialyzed yesterday. 03/01: on 4 vasopressors. hemodynamically unstable. remains in shock. worse than yesterday. too unstable to tolerate additional HD. unlikely to survive this illness. mother presses on for aggressive measures. Objective Vital Signs Date Time Temp Pulse Resp B/P (MAP) Pulse Ox O2 Delivery O2 Flow Rate FiO2 03/01/18 12:29 100 60 03/01/18 11:36 85 94/49 03/01/18 07:00 Mechanical Ventilator 03/01/18 04:00 96.0 20 02/26/18 19:15 5.00 Intake and Output 03/01/18 03/01/18 03/02/18 08:00 16:00 00:00 Intake Total 2170.3 ml Output Total 475 ml Balance 1695.3 ml Result Diagram: 03/01/18 0400 03/01/18 0400 Other Results Microbiology Date/Time Source Procedure Growth Status 02/27/18 08:45 Sputum Endotracheal Gram Stain - Final Complete 02/27/18 08:45 Sputum Endotracheal Sputum Culture - Final HEAVY GROWTH NORMAL RESPIRATORY PAMELA Complete Laboratory Tests Test 02/28/18 16:36 03/01/18 04:50 Blood Gas Puncture Site ART LINE LT RADIAL Blood Gas Patient Temperature 98.6 98.6 Blood Gas HCO3 15 mmol/L (22-26) 12 mmol/L (22-26) Blood Gas Base Excess -9.6 mmol/L (-2-2) -14.8 mmol/L (-2-2) Blood Gas Oxygen Saturation 90 % (90-100) 90 % (90-100) Arterial Blood pH 7.35 (7.380-7.420) 7.21 (7.380-7.420) Arterial Blood Partial Pressure CO2 28 mmHg (38-42) 30 mmHg (38-42) Arterial Blood Partial Pressure O2 72 mmHg (61-120) 77 mmHg (61-120) Arterial Blood Oxygen Content 13.2 Vol % (12.0-20.0) 13.9 Vol % (12.0-20.0) Arterial Blood Carboxyhemoglobin 0.6 % (0-4) 0.5 % (0-4) Arterial Blood Methemoglobin 1.5 % (0-2) 1.5 % (0-2) Blood Gas Hemoglobin 10.3 G/DL (12.0-16.0) 11.0 G/DL (12.0-16.0) Oxygen Delivery Device VENTILATOR VENT Blood Gas Ventilator Setting SEE NOTE COMMENT Blood Gas Inspired Oxygen 60 % 60 % Imaging Last Impressions Chest X-Ray 02/27/18 Signed Impressions: CONCLUSION: 1. Endotracheal tube and new right IJ central venous catheter now seen. 2. Persistent bilateral mid to lower lung zone pulmonary opacity indicating pu lmonary edema versus consolidation. Percutaneous Cholangiogram 02/25/18 Signed Impressions: CONCLUSION: 1. Uncomplicated percutaneous cholecystostomy as above. Thick inspissated bile noted. A sample sent for microbiological evaluation. Gall Bladder Ultrasound 02/25/18 Signed Impressions: CONCLUSION: 1. Concern for acute cholecystitis. Abdomen Ultrasound 02/25/18 Signed Impressions: CONCLUSION: 1. Small amount of ascites. 2. Insufficient amount of fluid for paracentesis. Hepatobiliary Scan Nuclear Medicine 02/24/18 Signed Impressions: CONCLUSION: 1. Abnormal hepatic kinetics and delayed biliary intestinal transit both of wh ich may be accounted for by parenchymal liver disease. 2. Nonvisualization of the gallbladder. It is uncertain whether this represent s obstruction of the gallbladder or slow excretion of radiotracer. Abdomen/Pelvis CT 02/23/181945 Signed Impressions: CONCLUSION: 1. Worsening moderate bilateral pleural effusions, severe anasarca and mild as cites compared with February 17. 2. Stable pericholecystic fluid and gallbladder wall thickening probably relat ed to anasarca. 3. Stable umbilical hernia. No bowel obstruction or free air. Catheter Placement X-Ray 02/19/18 Signed Impressions: CONCLUSION: Uncomplicated ultrasound and fluoroscopic guided central venous dialysis cathet er placement as above. Renal Ultrasound 02/18/18 Signed Impressions: CONCLUSION: 1. Suspected increased echotexture of the renal parenchyma likely representing medical renal disease. No hydronephrosis is present. 2. There is trace free fluid around the liver. Objective Remarks GENERAL: critically ill-appearing male intubated and sedated SKIN: Warm and dry. HEAD: Normocephalic. EYES: No scleral icterus. No injection or drainage. NECK: Supple, trachea midline. No JVD. CARDIOVASCULAR: Regular rate and rhythm. sinus. RESPIRATORY: Breath sounds equal bilaterally. No accessory muscle use. full vent support. GASTROINTESTINAL: Abdomen soft, nondistended. Cholecystostomy tube draining biliary fluid MUSCULOSKELETAL: No cyanosis, or edema. Has ulcers both plantar aspect of feet, clean, with red tissue, no necrotic tissue, no purulence, no periwound erythema. Bilateral dressings on feet C/D I NEURO EXAM: RASS -4. sedated with fentanyl only. does not follow commands. A/P Problem List: (1) Rhabdomyolysis ICD Code: M62.82 - Rhabdomyolysis (2) Edema ICD Code: R60.9 - Edema, unspecified (3) Renal insufficiency ICD Code: N28.9 - Disorder of kidney and ureter, unspecified Status: Acute (4) Acute worsening of stage 3 chronic kidney disease ICD Code: N18.3 - Chronic kidney disease, stage 3 (moderate) (5) Septic shock due to streptococcal infection ICD Code: A40.9 - Streptococcal sepsis, unspecified; R65.21 - Severe sepsis with septic shock Status: Resolved (6) History of schizophrenia ICD Code: Z86.59 - Personal history of other mental and behavioral disorders (7) Open wound of left foot ICD Code: S91.302A - Unspecified open wound, left foot, initial encounter Status: Chronic (8) Acute renal failure ICD Code: N17.9 - Acute kidney failure, unspecified Status: Acute (9) DM (diabetes mellitus) ICD Code: E11.9 - Type 2 diabetes mellitus without complications Status: Chronic (10) Ulcer of right lower extremity ICD Code: L97.919 - Non-pressure chronic ulcer of unspecified part of right lower leg with unspecified severity Status: Chronic (11) Chronic disease anemia ICD Code: D63.8 - Anemia in other chronic diseases classified elsewhere Status: Acute (12) Osteomyelitis of ankle or foot ICD Code: M86.9 - Osteomyelitis, unspecified Status: Acute (13) Abscess of right foot ICD Code: L02.611 - Cutaneous abscess of right foot Status: Acute (14) Charcot foot due to diabetes mellitus ICD Code: E11.610 - Type 2 diabetes mellitus with diabetic neuropathic arthropathy Status: Chronic (15) Impaired mobility and activities of daily living ICD Code: Z74.09 - Other reduced mobility Status: Acute (16) Peripheral neuropathy ICD Code: G62.9 - Peripheral neuropathy Status: Acute (17) Uncontrolled diabetes mellitus ICD Code: E11.65 - Uncontrolled diabetes mellitus Status: Acute (18) Infected stasis ulcer ICD Code: I83.209 - Varicose veins of unspecified lower extremity with both ulcer of unspecified site and inflammation Status: Acute (19) Symptomatic anemia ICD Code: D64.9 - Anemia, unspecified Status: Acute (20) PEA (Pulseless electrical activity) ICD Code: I46.9 - Cardiac arrest, cause unspecified Assessment and Plan Plan by systems: Neurologic: Schizophrenia Acute metabolic encephalopathy- severe -Continue home dosing Thorazine -Neuro checks per ICU protocol -Provide fentanyl IV infusion for sedation/analgesia to maintain ventilator synchrony -Hold all daily sedation vacation until clinically indicate -Vistaril placed on hold Respiratory: Acute hypoxic and hypercarbic respiratory failure Mixed severe respiratory and metabolic acidosis 02/27 patient intubated 8.0 ETT, S/P Cardiac Arrest (PEA) PC Mode weaned to 60% Repeat ABG Bronchodilators every 6 hours scheduled and every 2 hours as needed Cardiovascular Septic shock- severe, acute, refractory to multiple vasopressors Hypotension Status post PEA arrest -Continue Levophed, dopamine ,vasopressin, phenylephrine to maintain MAP greater than 65mmHG. -Midrin 10 mg-discontinued -Albumin 5% BID discontinued 02/27 -Hydrocortisone 50 mg every 6 hours - refractory to maximal medical therapy FEN/GI: Abdominal pain Stable umbilical hernia Mild ascites Cholecystitis -Sodium bicarbonate infusion dc'd 02/27 per Nephrology -Maintain n.p.o. status while on vasopressors -02/23 CT abdomen and pelvis- stable pericholecystic fluid and gallbladder wall thickening -Scheduled sennosides twice daily -Bowel regimen -Hepatitis C IgG Ab positive - 02/25 Gallbladder ultrasound-Limited sonographic images of the gallbladder were performed. Other visceral structures were not evaluated at this time. The gallbladder is thick walled. It is distended. There is a questionable echogenic stone within the neck. A trace amount of pericholecystic fluid noted. S/P Percutaneous cholecystostomy tube placement F/U biliary culture - GI following Monitor Creatinine Kinase while on daptomycin 02/27-general surgery has been consulted, secondary to possible stone in the neck of the gallbladder -labs values ALT remains the same, alkaline phosphatase decreasing. AST slightly increased but this is also in the setting of chronic liver disease IHD scheduling per Nephrology-1L ( 02/27), 1.5L (02/28) Heme/ID: Septic shock Anemia -Begin sodium bicarbonate infusion -IV antibiotics per ID -02/27 Kirstin glabrata> 100,000 in repeat specimen -wound culture- Klebsiella ESBL, Group A Strep -02/24 type and screen -Transfuse 1 unit PRBC (02/24) -02/25 Biliary culture obtained , F/U results - 02/27 type and screen-planned transfusion 2 units packed red blood cells (Hgb 7.7) - 02/27 Pancultured Endocrine: Diabetes mellitus -Maintain n.p.o. status -Glucose monitoring per ICU protocol -Insulin sliding scale -- SSI Prophylaxis: GI Prophylaxis Famotidine BID DVT Prophylaxis -- SCDs Lines: Right infusaport/ verma. Peripheral IVs 2 Dispo: my billing statement This patient remains critically ill with one or more organ systems which are or may become a threat to life. I have spent in excess of 32 minutes discontinuously in the care and management of this patient. This time is exclusive of procedures, and includes, but is not limited to, evaluation of the patient, review of the medical record, discussions with family, consultants, nursing staff, or respiratory therapy, and documentation in the medical record. Discussed with daughters at bedside. OVERALL IMPRESSION: maximally ill and decompensating. hemodynamically unstable despite our best efforts. likely nonsurvivable acute shock. family continues aggressive goals. Hamlet Be MD Mar 01, 2018 13:40
--- NOTE | 2018-03-01 14:02 | HHI.NPPN ---
Subjective Renal Failure: Acute Interval History patient is doing poorly. Hypotensive, on the pressors. Remains on the ventilator. Review of Systems General General Remarks unable to obtain Objective Data Data Vital Signs Date Time Temp Pulse Resp B/P (MAP) Pulse Ox O2 Delivery O2 Flow Rate FiO2 03/01/18 13:46 100 60 03/01/18 12:29 100 60 03/01/18 11:36 85 94/49 03/01/18 10:10 87 88/49 03/01/18 07:08 100 60 03/01/18 07:00 100 Mechanical Ventilator 03/01/18 06:40 82 85/75 03/01/18 06:40 82 84/74 03/01/18 06:40 82 84/74 03/01/18 06:00 83 03/01/18 04:22 100 60 03/01/18 04:00 96.0 86 20 84/47 (59) 100 82/53 (63) 03/01/18 04:00 86 03/01/18 04:00 60 03/01/18 03:11 90 90/70 03/01/18 03:10 91 91/70 03/01/18 02:35 94 90/71 03/01/18 02:15 104 93/73 03/01/18 02:07 100 93/73 03/01/18 02:06 100 93/72 03/01/18 02:00 115 03/01/18 01:38 104 93/72 03/01/18 00:13 104 93/74 03/01/18 00:13 104 93/73 03/01/18 00:00 100 60 03/01/18 00:00 100.9 104 20 90/51 (64) 100 94/75 (81) 03/01/18 00:00 60 03/01/18 00:00 104 94/76 03/01/18 00:00 104 94/76 03/01/18 00:00 104 02/28/18 23:20 103 99/78 02/28/18 23:20 103 99/78 02/28/18 23:10 102 97/75 02/28/18 23:00 102 96/72 02/28/18 23:00 102 96/72 02/28/18 22:52 101 85/67 02/28/18 22:52 101 85/67 02/28/18 21:41 101 125/57 02/28/18 21:40 101 125/57 02/28/18 20:39 103 116/43 02/28/18 20:38 103 117/44 02/28/18 20:00 60 02/28/18 20:00 102.5 104 21 93/55 (68) 94 113/43 (66) 02/28/18 20:00 104 113/43 02/28/18 20:00 104 113/43 02/28/18 20:00 104 113/43 02/28/18 20:00 104 02/28/18 19:11 100 60 02/28/18 19:00 100 Mechanical Ventilator 02/28/18 18:00 107 02/28/18 17:00 106 02/28/18 17:00 105 103/42 02/28/18 16:15 105 103/41 02/28/18 16:00 101.9 105 12 96/51 (66) 98 105/41 (62) 02/28/18 16:00 105 02/28/18 16:00 70 02/28/18 16:00 105 105/41 02/28/18 15:42 99 60 02/28/18 15:00 107 02/28/18 14:30 107 108/42 02/28/18 14:00 109 -: 03/01/18 0400 03/01/18 0400 Tubes & Lines: Vas-Cath, Chirinos Tubes & Lines Comment A line Drip Comment Levophed, dopamine, phenylephrine, propofol, fentanyl Physical Exam General Appearance: No Acute Distress, Malnourished Appearance Remarks looks pale Eyes Eye Exam: Pupils Equal, Pupils Reactive Neck Neck Exam: Neck Supple Pulmonary Resp Exam: Breath Sounds Equal, Crackles Cardiology CV Exam: Regular, Normal Sinus Rhythm Gastrointestinal/Abdomen GI Exam: Soft, Distended Musculoskeletal MS Exam: Joints Intact, Atrophy, Unable to Ambulate Integumentary Skin Exam: Warm, Dry Extremeties Extremities Exam: Pedal Pulses Palpable, Moderate Edema, Dependent Edema Neurologic Neuro Exam: Unresponsive, Sedated Psychiatric Psych Exam: Appropriate Responses Assessment/Plan Assessment Summary: BISHOP/Acute Renal Failure Electrolyte Assessment: Hyponatremia Problem List: (1) Acute kidney injury ICD Codes: N17.9 - Acute kidney failure, unspecified Plan: Oliguric renal failure. HD initiated 02/19, Recently had cardiac arrest, most likely suffered additional renal injury. He has become anuric. ON HD MWF as needed. Remains hypotensive despite pressor support, on Levophed, phenylephrine, and dopamine. We are using Vas cath, he will most likely require tunneled dialysis catheter at later date if he survives. Obtain daily labs. Dialysis as needed. Await potential renal recovery. Maintain MAP > 65mmHg. It is unclear if he can tolerate intermittent dialysis given cardiovascular instability. Avoid excessive IVF administration, UF as tolerated with dialysis. Overall Prognosis is very poor. Hospice is appropriate. (2) Hyperkalemia ICD Codes: E87.5 - Hyperkalemia Plan: Improved with dialysis, monitor. 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 For unclear reasons, hyponatremia persists in spite of poor urine output. Needs fluid restriction, avoid hypotonic fluids and water administration. (4) Anemia ICD Codes: D64.9 - Anemia, unspecified Status: Acute Plan: Given 2 units 02/27. On Epogen with HD Follow CBC Avoid IV Venofer given sepsis. (5) DM (diabetes mellitus) ICD Codes: E11.9 - Type 2 diabetes mellitus without complications Status: Chronic Plan: Insulin coverage as needed, maintain blood sugar between 140 and 180. (6) Infected stasis ulcer ICD Codes: I83.209 - Varicose veins of unspecified lower extremity with both ulcer of unspecified site and inflammation Status: Acute Plan: Wound with klebsiella, sensitivity reviewed. Wound care following (7) UTI (urinary tract infection) ICD Codes: N39.0 - Urinary tract infection, site not specified Status: Acute Plan: see below (8) Sepsis ICD Codes: A41.9 - Sepsis, unspecified organism Status: Resolved Plan: ID following Has multiple sources of infection. Gall bladder fluid with guerrero, other cultures reviewed Antibiotics include meropenem, Ancef, and micafungin; fluconazole and daptomycin were stopped. Continue supportive care (9) Abdominal pain ICD Codes: R10.9 - Unspecified abdominal pain Status: Acute Plan: Elevated LFTs, HIDA taken. s/p cholecystectomy tube placement 02/25, will need to remain in place for 3 weeks minimum. Problem Qualifiers (1) UTI (urinary tract infection): Qualified Codes: N30.00 - Acute cystitis without hematuria Shaun Mcmahon MD Mar 01, 2018 14:02
--- NOTE | 2018-03-01 14:11 | HHI.IDPN ---
Note Infectious Disease Note Patient is on the ventilator. Unresponsive. Blood pressure is extremely low despite maximal doses of Levophed, phenylephrine , dopamine. Spiking temperature. Percutaneous cholecystostomy tube placed 02/25. Post cardiopulmonary arrest. 57-year-old male, came from the senior living, brought into the hospital for abnormal routine labs showing anemia, hyponatremia, and worsening renal function. Patient was hospitalized last month and at that time he had group A strep septicemia as well as bilateral foot ulcers with infection. During that hospitalization he also had acute kidney injury and it improved but not to normal limits. Past Medical History Bilateral foot cellulitis/abscess with group a strep septicemia (on cefazolin and Flagyl until 02/27/18 per infectious disease) Acute kidney injury requiring hemodialysis C. 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 Micafungin. Metronidazole. Meropenem. Vital Signs Date Time Temp Pulse Resp B/P (MAP) Pulse Ox O2 Delivery O2 Flow Rate FiO2 03/01/18 13:46 100 60 03/01/18 12:29 100 60 03/01/18 11:36 85 94/49 03/01/18 10:10 87 88/49 03/01/18 07:08 100 60 03/01/18 07:00 100 Mechanical Ventilator 03/01/18 06:40 82 85/75 03/01/18 06:40 82 84/74 03/01/18 06:40 82 84/74 03/01/18 06:00 83 03/01/18 04:22 100 60 03/01/18 04:00 96.0 86 20 84/47 (59) 100 82/53 (63) 6/16/18 04:00 86 03/01/18 04:00 60 03/01/18 03:11 90 90/70 03/01/18 03:10 91 91/70 03/01/18 02:35 94 90/71 03/01/18 02:15 104 93/73 03/01/18 02:07 100 93/73 03/01/18 02:06 100 93/72 03/01/18 02:00 115 03/01/18 01:38 104 93/72 03/01/18 00:13 104 93/74 03/01/18 00:13 104 93/73 03/01/18 00:00 100 60 03/01/18 00:00 100.9 104 20 90/51 (64) 100 94/75 (81) 03/01/18 00:00 60 03/01/18 00:00 104 94/76 03/01/18 00:00 104 94/76 03/01/18 00:00 104 02/28/18 23:20 103 99/78 02/28/18 23:20 103 99/78 02/28/18 23:10 102 97/75 18 23:00 102 96/72 02/28/18 23:00 102 96/72 02/28/18 22:52 101 85/67 02/28/18 22:52 101 85/67 02/28/18 21:41 101 125/57 18 21:40 101 125/57 18 20:39 103 116/43 18 20:38 103 117/44 02/28/18 20:00 60 02/28/18 20:00 102.5 104 21 93/55 (68) 94 113/43 (66) 02/28/18 20:00 104 113/43 18 20:00 104 113/43 02/28/18 20:00 104 113/43 18 20:00 104 18 19:11 100 60 18 19:00 100 Mechanical Ventilator 18 18:00 107 02/28/18 17:00 106 02/28/18 17:00 105 103/42 18 16:15 105 103/41 02/28/18 16:00 101.9 105 12 96/51 (66) 98 105/41 (62) 02/28/18 16:00 105 02/28/18 16:00 70 02/28/18 16:00 105 105/41 02/28/18 15:42 99 60 02/28/18 15:00 107 02/28/18 14:30 107 108/42 Laboratory Tests Test 02/27/18 21:27 02/28/18 17:00 03/01/18 04:00 Hemoglobin 10.8 GM/DL 10.5 GM/DL 10.8 GM/DL Hematocrit 33.2 % 33.0 % 34.7 % White Blood Count 14.2 TH/MM3 19.0 TH/MM3 Red Blood Count 3.65 MIL/MM3 3.76 MIL/MM3 Mean Corpuscular Volume 90.5 FL 92.3 FL Mean Corpuscular Hemoglobin 28.8 PG 28.9 PG Mean Corpuscular Hemoglobin Concent 31.9 % 31.3 % Red Cell Distribution Width 16.6 % 17.5 % Platelet Count 282 TH/MM3 264 TH/MM3 Mean Platelet Volume 10.5 FL 10.0 FL Neutrophils (%) (Auto) 90.3 % 84.5 % Lymphocytes (%) (Auto) 5.6 % 10.8 % Monocytes (%) (Auto) 3.8 % 4.1 % Eosinophils (%) (Auto) 0.1 % 0.2 % Basophils (%) (Auto) 0.2 % 0.4 % Neutrophils # (Auto) 12.9 TH/MM3 16.0 TH/MM3 Lymphocytes # (Auto) 0.8 TH/MM3 2.1 TH/MM3 Monocytes # (Auto) 0.5 TH/MM3 0.8 TH/MM3 Eosinophils # (Auto) 0.0 TH/MM3 0.0 TH/MM3 Basophils # (Auto) 0.0 TH/MM3 0.1 TH/MM3 CBC Comment AUTO DIFF AUTO DIFF Differential Total Cells Counted 100 100 Neutrophils % (Manual) 86 % 75 % Band Neutrophils % 4 % 14 % Lymphocytes % 7 % 9 % Monocytes % 3 % 1 % Neutrophils # (Manual) 12.8 TH/MM3 17.1 TH/MM3 Nucleated Red Blood Cells 13 /100 WBC 13 /100 WBC Differential Comment FINAL DIFF MANUAL FINAL DIFF MANUAL Platelet Estimate NORMAL NORMAL Platelet Morphology Comment NORMAL NORMAL Red Cell Morphology Comment NORMAL Metamyelocytes 1 % Toxic Vacuolation PRESENT Basophilic Stippling FAINT Spherocytes 1+ Acanthocytes Laboratory Tests Test 02/28/18 05:18 02/28/18 17:00 03/01/18 04:00 Lactic Acid Level 3.8 mmol/L 7.9 mmol/L 8.8 mmol/L Blood Urea Nitrogen 22 MG/DL 23 MG/DL Creatinine 3.30 MG/DL 3.42 MG/DL Random Glucose 307 MG/DL 296 MG/DL Total Protein 6.6 GM/DL 6.8 GM/DL Calcium Level 7.1 MG/DL 7.0 MG/DL Phosphorus Level 3.3 MG/DL 4.7 MG/DL Magnesium Level 1.9 MG/DL 2.0 MG/DL Sodium Level 128 MEQ/L 125 MEQ/L Potassium Level 3.9 MEQ/L 4.1 MEQ/L Chloride Level 95 MEQ/L 90 MEQ/L Carbon Dioxide Level 14.6 MEQ/L 15.3 MEQ/L Anion Gap 18 MEQ/L 20 MEQ/L Estimat Glomerular Filtration Rate 20 ML/MIN 19 ML/MIN Protein Corrected Calcium 7.4 MG/DL 7.2 MG/DL Albumin 1.9 GM/DL Microbiology Date/Time Source Procedure Growth Status 02/27/18 13:35 Bronchial Washings Right Lower Lobe Gram Stain - Final Complete 02/27/18 13:35 Bronchial Washings Right Lower Lobe Bronchial Culture - Final HEAVY GROWTH NORMAL RESPIRATORY PAMELA Complete 02/27/18 08:45 Sputum Endotracheal Gram Stain - Final Complete 02/27/18 08:45 Sputum Endotracheal Sputum Culture - Final HEAVY GROWTH NORMAL RESPIRATORY PAMELA Complete Imaging: Chest X-Ray 03/01/18 0600 Signed Impressions: CONCLUSION: Slight improvement of bilateral airspace disease Chest X-Ray 02/28/18 0000 Signed Impressions: CONCLUSION: Bilateral airspace disease, right greater than left. Support apparatus unchange d. Chest X-Ray 02/27/18 0000 Signed Impressions: CONCLUSION: 1. No pneumothorax status post placement of left internal jugular central line which has its tip in good position in superior vena cava. 2. Bilateral patchy infiltrates (right worse than left) consistent with asymme tric pulmonary edema and/or pneumonia. Chest X-Ray 02/27/18 0000 Signed Impressions: CONCLUSION: 1. Endotracheal tube and new right IJ central venous catheter now seen. 2. Persistent bilateral mid to lower lung zone pulmonary opacity indicating pu lmonary edema versus consolidation. Abdomen X-Ray 02/27/18 Signed Impressions: CONCLUSION: 1. Gaseous distention of the stomach 2. Nasogastric tube within the fundus of the stomach 3. Cholecystostomy tube noted in place. 4. No evidence of significant intestinal ileus. Percutaneous Cholangiogram 02/25/18 Signed Impressions: CONCLUSION: 1. Uncomplicated percutaneous cholecystostomy as above. Thick inspissated bile noted. A sample sent for microbiological evaluation. Gall Bladder Ultrasound 02/25/18 Signed Impressions: CONCLUSION: 1. Concern for acute cholecystitis. Abdomen Ultrasound 02/25/18 Signed Impressions: CONCLUSION: 1. Small amount of ascites. 2. Insufficient amount of fluid for paracentesis. Abdomen/Pelvis CT 02/23/181945 Signed Impressions: CONCLUSION: 1. Worsening moderate bilateral pleural effusions, severe anasarca and mild as cites compared with February 17. 2. Stable pericholecystic fluid and gallbladder wall thickening probably relat ed to anasarca. 3. Stable umbilical hernia. No bowel obstruction or free air. Catheter Placement X-Ray 02/19/18 Signed Impressions: CONCLUSION: Uncomplicated ultrasound and fluoroscopic guided central venous dialysis cathet er placement as above. Renal Ultrasound 02/18/18 Signed Impressions: CONCLUSION: 1. Suspected increased echotexture of the renal parenchyma likely representing medical renal disease. No hydronephrosis is present. 2. There is trace free fluid around the liver. Chest X-Ray 02/17/18 Signed Impressions: CONCLUSION: 1. Cardiomegaly with plain film findings suggesting some degree of vascular co ngestion or volume overload. 2. Left basilar consolidation/effusion. Physical Exam GENERAL: Unresponsive on the ventilator. HEENT: Pupils reactive to light. No icterus. Slightly dry oral mucosa. NECK: Supple without adenopathy or swelling. LUNGS: Bibasilar rhonchi. HEART: Irregular S1 and S2. No murmurs or rubs or gallops. ABDOMEN: Distended, soft, decreased bowel sounds. EXTREMITIES: No clubbing or cyanosis. 1+ edema of the hands. Hands and feet remain cool to touch. SKIN: No rash. NEUROLOGIC: Unable to assess. PSYCH: Unable to assess. LINE: No evidence of infection, Dc on the right chest and right IJ Vas- Cath IMPRESSION Cardiopulmonary arrest. Sepsis severe. Aspiration pneumonia. Sputum culture pending. Acute cholecystitis due to Kirstin glabrata. Group A Strep sepsis from foot infection, better Treatment completed on February 27. (+) wound C/S with Kleb ESBL+ - colonization, wound looks clean and no evidence of infection Kirstin UTI Renal failure, on HD Hx C diff colitis Patient remains very critically ill. RECOMMENDATION Continue linezolid. Continue Meropenem Continue Micafungin. Monitor sputum culture. Follow the clinical status. [place] is poor given failure to respond to maximal doses of vasopressors and renal and respiratory failure. Sen Washington MD Mar 01, 2018 14:11
--- NOTE | 2018-03-01 14:29 | HHI.GIFU ---
Subjective Remarks Patient hypotensive with some deterioration today Nonresponsive (Alley Alvarado) Objective Vitals I&O Vital Signs Date Time Temp Pulse Resp B/P (MAP) Pulse Ox O2 Delivery O2 Flow Rate FiO2 03/01/18 13:46 100 60 03/01/18 12:29 100 60 03/01/18 11:36 85 94/49 03/01/18 10:10 87 88/49 03/01/18 07:08 100 60 03/01/18 07:00 100 Mechanical Ventilator 03/01/18 06:40 82 85/75 03/01/18 06:40 82 84/74 03/01/18 06:40 82 84/74 03/01/18 06:00 83 03/01/18 04:22 100 60 03/01/18 04:00 96.0 86 20 84/47 (59) 100 82/53 (63) 03/01/18 04:00 86 03/01/18 04:00 60 03/01/18 03:11 90 90/70 03/01/18 03:10 91 91/70 03/01/18 02:35 94 90/71 03/01/18 02:15 104 93/73 03/01/18 02:07 100 93/73 03/01/18 02:06 100 93/72 03/01/18 02:00 115 03/01/18 01:38 104 93/72 03/01/18 00:13 104 93/74 03/01/18 00:13 104 93/73 03/01/18 00:00 100 60 03/01/18 00:00 100.9 104 20 90/51 (64) 100 94/75 (81) 03/01/18 00:00 60 03/01/18 00:00 104 94/76 03/01/18 00:00 104 94/76 03/01/18 00:00 104 02/28/18 23:20 103 99/78 02/28/18 23:20 103 99/78 02/28/18 23:10 102 97/75 02/28/18 23:00 102 96/72 02/28/18 23:00 102 96/72 02/28/18 22:52 101 85/67 02/28/18 22:52 101 85/67 6/15/18 21:41 101 125/57 02/28/18 21:40 101 125/57 02/28/18 20:39 103 116/43 02/28/18 20:38 103 117/44 02/28/18 20:00 60 02/28/18 20:00 102.5 104 21 93/55 (68) 94 113/43 (66) 02/28/18 20:00 104 113/43 02/28/18 20:00 104 113/43 02/28/18 20:00 104 113/43 02/28/18 20:00 104 02/28/18 19:11 100 60 02/28/18 19:00 100 Mechanical Ventilator 02/28/18 18:00 107 02/28/18 17:00 106 02/28/18 17:00 105 103/42 02/28/18 16:15 105 103/41 02/28/18 16:00 101.9 105 12 96/51 (66) 98 105/41 (62) 02/28/18 16:00 105 02/28/18 16:00 70 02/28/18 16:00 105 105/41 02/28/18 15:42 99 60 02/28/18 15:00 107 02/28/18 14:30 107 108/42 I/O 02/28/18 02/28/18 02/28/18 03/01/18 03/01/18 03/01/18 07:00 15:00 23:00 07:00 15:00 23:00 Intake Total 2166 ml 800 ml 2120 ml 2170.3 ml Output Total 120 ml 1500 ml 90 ml 475 ml Balance 2046 ml -700 ml 2030 ml 1695.3 ml IV Total 2106 ml 800 ml 2120 ml 2110.3 ml Other 60 ml 60 ml Output Urine Total 30 ml 20 ml 40 ml Gastric Drainage Total 400 ml Drainage Total 90 ml 70 ml 35 ml Hemodialysis 1500 ml # Bowel Movements 1 0 Laboratory Laboratory Tests Test 02/28/18 16:36 02/28/18 17:00 03/01/18 04:00 03/01/18 04:50 Blood Gas Puncture Site ART LINE LT RADIAL Blood Gas Patient Temperature 98.6 98.6 Blood Gas HCO3 15 12 Blood Gas Base Excess -9.6 -14.8 Blood Gas Oxygen Saturation 90 90 Arterial Blood pH 7.35 7.21 Arterial Blood Partial Pressure CO2 28 30 Arterial Blood Partial Pressure O2 72 77 Arterial Blood Oxygen Content 13.2 13.9 Arterial Blood Carboxyhemoglobin 0.6 0.5 Arterial Blood Methemoglobin 1.5 1.5 Blood Gas Hemoglobin 10.3 11.0 Oxygen Delivery Device VENTILATOR VENT Blood Gas Ventilator Setting SEE NOTE COMMENT Blood Gas Inspired Oxygen 60 60 White Blood Count 14.2 19.0 Red Blood Count 3.65 3.76 Hemoglobin 10.5 10.8 Hematocrit 33.0 34.7 Mean Corpuscular Volume 90.5 92.3 Mean Corpuscular Hemoglobin 28.8 28.9 Mean Corpuscular Hemoglobin Concent 31.9 31.3 Red Cell Distribution Width 16.6 17.5 Platelet Count 282 264 Mean Platelet Volume 10.5 10.0 Neutrophils (%) (Auto) 90.3 84.5 Lymphocytes (%) (Auto) 5.6 10.8 Monocytes (%) (Auto) 3.8 4.1 Eosinophils (%) (Auto) 0.1 0.2 Basophils (%) (Auto) 0.2 0.4 Neutrophils # (Auto) 12.9 16.0 Lymphocytes # (Auto) 0.8 2.1 Monocytes # (Auto) 0.5 0.8 Eosinophils # (Auto) 0.0 0.0 Basophils # (Auto) 0.0 0.1 CBC Comment AUTO DIFF AUTO DIFF Differential Total Cells Counted 100 100 Neutrophils % (Manual) 86 75 Band Neutrophils % 4 14 Lymphocytes % 7 9 Monocytes % 3 1 Neutrophils # (Manual) 12.8 17.1 Nucleated Red Blood Cells 13 13 Differential Comment FINAL DIFF MANUAL FINAL DIFF MANUAL Platelet Estimate NORMAL NORMAL Platelet Morphology Comment NORMAL NORMAL Red Cell Morphology Comment NORMAL Blood Urea Nitrogen 22 23 Creatinine 3.30 3.42 Random Glucose 307 296 Total Protein 6.6 6.8 Calcium Level 7.1 7.0 Phosphorus Level 3.3 4.7 Magnesium Level 1.9 2.0 Sodium Level 128 125 Potassium Level 3.9 4.1 Chloride Level 95 90 Carbon Dioxide Level 14.6 15.3 Anion Gap 18 20 Estimat Glomerular Filtration Rate 20 19 Lactic Acid Level 7.9 8.8 Protein Corrected Calcium 7.4 7.2 Metamyelocytes 1 Toxic Vacuolation PRESENT Basophilic Stippling FAINT Spherocytes 1+ Acanthocytes Albumin 1.9 Date/Time Source Procedure Growth Status 02/23/18 19:27 Blood Peripheral Aerobic Blood Culture - Final NO GROWTH IN 5 DAYS Complete 02/23/18 19:27 Blood Peripheral Anaerobic Blood Culture - Final NO GROWTH IN 5 DAYS Complete 02/25/18 18:22 Fluid Other Gram Stain - Final Complete 02/25/18 18:22 Body Fluid Culture - Final Kristin Glabrata Complete 02/27/18 13:35 Bronchial Washings Right Lower Lobe Gram Stain - Final Complete 02/27/18 13:35 Bronchial Washings Right Lower Lobe Bronchial Culture - Final HEAVY GROWTH NORMAL RESPIRATORY PAMELA Complete 02/24/18 12:35 Urine Catheterized Urine Urine Culture - Final Kirstin Glabrata Complete 02/18/18 11:00 Wound Foot Gram Stain - Final Complete 02/18/18 11:00 Wound Culture - Final Klebsiella Pneumoniae Esbl Pos Complete Physical Exam HEENT: Normocephalic; atraumatic, overweight, color very dusky CHEST: Respiration synchronized with vent via ETT , CARDIAC: Irregular ABDOMEN: Distended, semi-firm , bowel sounds active. 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 Also complaining of abdominal swelling, states he feels the fluid is so high that it is up to his throat. Denies nausea, vomiting. Can not recall BMs, one documented in chart yesterday. Recent C Diff in January. EGD and colonoscopy by our service in February 2017 --> Significant amount of stool present throughout entire examined colon, incomplete study secondary to poor prep. Normal esophagus, food residue in the entire examined stomach, medium sized ulcer in the gastric antrum. CT abdomen and pelvis WO IV contrast (02/23) Worsening moderate bilateral pleural effusions, severe anasarca and mild ascites compared with February 17. Stable pericholecystic fluid and gallbladder wall thickening probably related to anasarca. Stable umbilical hernia. No bowel obstruction or free air. - Elevated LFTs- was previously drinking daily prior to recent admission and discharge and is currently in rehab facility Previous liver work up: Hepatitis C antibody positive, but genotype and quant undetectable AAT-245 Ceruloplasmin-43 VICKIE positive, titer 1:320 Pattern Nucleolar AMA less than 20 AMA negative Ferritin-2320 Iron-63 TIBC-64 %sat-97.8 (02/25) Pt with continued side and back pain. US abdomen shows insufficient fluid for paracentesis. HIDA scan pending. HFE pending (02/26) Pt reports some improvement in pain today. GB US revealed concern for acute cholecystitis. HIDA scan Abnormal hepatic kinetics and delayed biliary intestinal transit both of which may be accounted for by parenchymal liver disease. Nonvisualization of the gallbladder. It is uncertain whether this represents obstruction of the gallbladder or slow excretion of radiotracer. S/P percutaneous cholecystostomy drain placed by IR yesterday, 80 mL of thick , dark inspissated bile removed, sample sent to micro. Mild leukocytosis- pt on Meropenem and Daptomycin. Pt hypotensive yesterday, ? secondary to septic shock, now on Vasopressin. LFTs continue to trend down, HFE pending. RECONSULT FOR COFFEE GROUND EMESIS VIA OG (02/27) Pt S/P PEA arrest last night with ROSC after 8 minutes of resuscitation. An OG was placed after intubation which revealed a significant amount of coffee grounds, per RN also gastric secretions noted during intubation revealing aspiration. At this time, pt is on 4 pressors and 100% FiO2- he is too unstable for EGD. Will start Protonix gtt, monitor H/H closely and transfuse as needed 02/28/2018, patient remains in the intensive care setting ventilator mild sedation but does arouse but still very weak and, abdomen is round soft, noted generalized edema in his extremities dressing left foot clean dry and intact. NG tube with dark emesis, current hemoglobin 10.8. Receiving fifth dialysis treatment this a.m. labs show reactive hep C, other profile nonreactive, hemochromatosis labs pending, last PT/INR on 02/27/2018 2.3. Patient remains in serious condition. Remains too unstable for any GI procedures including EGD, total transfusions 4 units. 03/01/2018 patient's condition continues to deteriorate today with hypotension. GI will be glad to follow as needed but currently patient is too unstable. Condition very guarded for now. Current hemoglobin 10.8 last check Plan: Protonix IV Steroids IV Monitor labs with special attention to hemoglobin Transfuse as indicated Still remains too unstable for EGD, Pt has been seen and examined by myself and Dr. Rajput and this note is written on his behalf (Alley Alvarado) Physician Comments seen and examined, plan as lined up above. Please notify us once more stable, will follow up as needed. (Wali Rajput MD) Alley Alvarado Mar 01, 2018 14:29 Wali Rajput MD Mar 02, 2018 09:59
[2018-03-01] MEDS: PANTOPRAZOLE SODIUM 40 MG VIAL IV PUSH SCH ×2 (14:30→23:42)
--- NOTE | 2018-03-01 20:22 | HHI.PR ---
Subjective Subjective Notes critically ill worsening overnight Objective Vitals/I&O Vital Signs Date Time Temp Pulse Resp B/P (MAP) Pulse Ox O2 Delivery O2 Flow Rate FiO2 03/01/18 19:40 85 74/47 03/01/18 16:11 100 60 03/01/18 16:00 98.5 22 03/01/18 07:00 Mechanical Ventilator 02/26/18 19:15 5.00 Labs Laboratory Tests Test 03/01/18 04:00 03/01/18 04:50 White Blood Count 19.0 Red Blood Count 3.76 Hemoglobin 10.8 Hematocrit 34.7 Mean Corpuscular Volume 92.3 Mean Corpuscular Hemoglobin 28.9 Mean Corpuscular Hemoglobin Concent 31.3 Red Cell Distribution Width 17.5 Platelet Count 264 Mean Platelet Volume 10.0 Neutrophils (%) (Auto) 84.5 Lymphocytes (%) (Auto) 10.8 Monocytes (%) (Auto) 4.1 Eosinophils (%) (Auto) 0.2 Basophils (%) (Auto) 0.4 Neutrophils # (Auto) 16.0 Lymphocytes # (Auto) 2.1 Monocytes # (Auto) 0.8 Eosinophils # (Auto) 0.0 Basophils # (Auto) 0.1 CBC Comment AUTO DIFF Differential Total Cells Counted 100 Neutrophils % (Manual) 75 Band Neutrophils % 14 Lymphocytes % 9 Monocytes % 1 Neutrophils # (Manual) 17.1 Metamyelocytes 1 Nucleated Red Blood Cells 13 Differential Comment FINAL DIFF MANUAL Toxic Vacuolation PRESENT Platelet Estimate NORMAL Platelet Morphology Comment NORMAL Basophilic Stippling FAINT Spherocytes 1+ Acanthocytes Red Cell Morphology Comment Blood Urea Nitrogen 23 Creatinine 3.42 Random Glucose 296 Total Protein 6.8 Albumin 1.9 Calcium Level 7.0 Phosphorus Level 4.7 Magnesium Level 2.0 Sodium Level 125 Potassium Level 4.1 Chloride Level 90 Carbon Dioxide Level 15.3 Anion Gap 20 Estimat Glomerular Filtration Rate 19 Lactic Acid Level 8.8 Protein Corrected Calcium 7.2 Blood Gas Puncture Site LT RADIAL Blood Gas Patient Temperature 98.6 Blood Gas HCO3 12 Blood Gas Base Excess -14.8 Blood Gas Oxygen Saturation 90 Arterial Blood pH 7.21 Arterial Blood Partial Pressure CO2 30 Arterial Blood Partial Pressure O2 77 Arterial Blood Oxygen Content 13.9 Arterial Blood Carboxyhemoglobin 0.5 Arterial Blood Methemoglobin 1.5 Blood Gas Hemoglobin 11.0 Oxygen Delivery Device VENT Blood Gas Ventilator Setting COMMENT Blood Gas Inspired Oxygen 60 Date/Time Source Procedure Growth Status 02/23/18 19:27 Blood Peripheral Aerobic Blood Culture - Final NO GROWTH IN 5 DAYS Complete 02/23/18 19:27 Blood Peripheral Anaerobic Blood Culture - Final NO GROWTH IN 5 DAYS Complete 02/25/18 18:22 Fluid Other Gram Stain - Final Complete 02/25/18 18:22 Body Fluid Culture - Final Kirstin Glabrata Complete 02/27/18 13:35 Bronchial Washings Right Lower Lobe Gram Stain - Final Complete 02/27/18 13:35 Bronchial Washings Right Lower Lobe Bronchial Culture - Final HEAVY GROWTH NORMAL RESPIRATORY PAMELA Complete 02/24/18 12:35 Urine Catheterized Urine Urine Culture - Final Kirstin Glabrata Complete 02/18/18 11:00 Wound Foot Gram Stain - Final Complete 02/18/18 11:00 Wound Culture - Final Klebsiella Pneumoniae Esbl Pos Complete Radiology Last Impressions Chest X-Ray 02/27/18 0000 Signed Impressions: CONCLUSION: Persistent diffuse bilateral pulmonary infiltrates (right worse than left). Abdomen X-Ray 02/27/18 Signed Impressions: CONCLUSION: 1. Gaseous distention of the stomach 2. Nasogastric tube within the fundus of the stomach 3. Cholecystostomy tube noted in place. 4. No evidence of significant intestinal ileus. Percutaneous Cholangiogram 02/25/18 Signed Impressions: CONCLUSION: 1. Uncomplicated percutaneous cholecystostomy as above. Thick inspissated bile noted. A sample sent for microbiological evaluation. Gall Bladder Ultrasound 02/25/18 Signed Impressions: CONCLUSION: 1. Concern for acute cholecystitis. Abdomen Ultrasound 02/25/18 Signed Impressions: CONCLUSION: 1. Small amount of ascites. 2. Insufficient amount of fluid for paracentesis. Hepatobiliary Scan Nuclear Medicine 02/24/18 Signed Impressions: CONCLUSION: 1. Abnormal hepatic kinetics and delayed biliary intestinal transit both of wh ich may be accounted for by parenchymal liver disease. 2. Nonvisualization of the gallbladder. It is uncertain whether this represent s obstruction of the gallbladder or slow excretion of radiotracer. Abdomen/Pelvis CT 02/23/181945 Signed Impressions: CONCLUSION: 1. Worsening moderate bilateral pleural effusions, severe anasarca and mild as cites compared with February 17. 2. Stable pericholecystic fluid and gallbladder wall thickening probably relat ed to anasarca. 3. Stable umbilical hernia. No bowel obstruction or free air. Catheter Placement X-Ray 02/19/18 0000 Signed Impressions: CONCLUSION: Uncomplicated ultrasound and fluoroscopic guided central venous dialysis cathet er placement as above. Renal Ultrasound 02/18/18 0000 Signed Impressions: CONCLUSION: 1. Suspected increased echotexture of the renal parenchyma likely representing medical renal disease. No hydronephrosis is present. 2. There is trace free fluid around the liver. Abdomen: Non-distended Narrative Exam biliary drain in place RUQ, benign appearing bile abdomen soft, non-distended A/P Problem List: (1) Cholecystostomy care ICD Codes: Z43.4 - Encounter for attention to other artificial openings of digestive tract Status: Acute (2) Gallstones and inflammation of gallbladder with obstruction ICD Codes: K80.19 - Calculus of gallbladder with other cholecystitis with obstruction Status: Acute (3) Cholecystitis ICD Codes: K81.9 - Cholecystitis, unspecified Status: Acute (4) DM (diabetes mellitus) ICD Codes: E11.9 - Type 2 diabetes mellitus without complications Status: Chronic (5) Anemia ICD Codes: D64.9 - Anemia, unspecified Status: Chronic (6) Acute kidney injury ICD Codes: N17.9 - Acute kidney failure, unspecified Status: Resolved (7) History of schizophrenia ICD Codes: Z86.59 - Personal history of other mental and behavioral disorders (8) Septic shock due to streptococcal infection ICD Codes: A40.9 - Streptococcal sepsis, unspecified; R65.21 - Severe sepsis with septic shock Status: Resolved (9) GI bleed ICD Codes: K92.2 - Gastrointestinal hemorrhage, unspecified Status: Resolved (10) Sepsis ICD Codes: A41.9 - Sepsis, unspecified organism Status: Resolved (11) Alcohol abuse ICD Codes: F10.10 - Alcohol abuse, uncomplicated Assessment and Plan 57yo male with sepsis, possible acute cholecystitis, possible pneumonia, poor prognosis 2/2 severe sepsis. biliary drain working well, good source control no surgical intervention indicated or beneficial at this point d/w mother at bedside Problem Qualifiers (1) Gallstones and inflammation of gallbladder with obstruction: Qualified Codes: K80.13 - Calculus of gallbladder with acute and chronic cholecystitis with obstruction (2) Anemia: Qualified Codes: D64.9 - Anemia, unspecified Pedro Schafer MD Mar 01, 2018 20:22
[2018-03-02] VITALS (12 sets, daily range): BP systolic 67–106; BP diastolic 36–48; PULSE 62–85; RESP 14–21; TEMP 97.7–100.3; O2SAT 95–100
[2018-03-02] MEDS: DOPamine INJ 800 MG in DEXTROSE 5% IN WATE 500 ML INJ 480 ML IV PRN ×4 (01:04→08:00)
[2018-03-02] MEDS: VASOPRESSIN 40 U/D5W 100 ML Titrate, Post Cardiac Surgery IV PRN ×2 (01:05)
[2018-03-02] MEDS: NOREPINEPHRINE-DEXTROSE DRIP 250 ML IV PRN ×2 (03:10→06:23)
[2018-03-02] MEDS: RESP: ALBUTEROL 2.5 MG/IPRATROPIUM 0.5 MG NEB (SCH) NEB ×2 (04:07→07:10)
[2018-03-02] MEDS: PHENYLEPHRINE INJ 80 MG in DEXTROSE 5% IN WATE 500 ML INJ 492 ML IV PRN ×4 (04:43→09:00)
[2018-03-02] MEDS: HYDROCORTISONE SOD SUCCINATE 100 MG VIAL IV PUSH SCH (04:43)
[2018-03-02] MEDS: metroNIDAZOLE 500 MG TAB PO SCH (04:44)
[2018-03-02] MEDS: MIDODRINE 5 MG TAB PO SCH (06:00)
[2018-03-02 06:56] LABS: HEMATOCRIT 35.8 % (39.0-51.0); MEAN CELL VOLUME 93.4 FL (80.0-100.0); MEAN CORPUSCULAR HEMOGLOBIN 28.7 PG (27.0-34.0); MEAN CORPUSCULAR HGB CONC 30.7 % (32.0-36.0); MEAN PLATELET VOLUME 10.4 FL (7.0-11.0); PLATELET COUNT 180 TH/MM3 (150-450); RED BLOOD COUNT 3.83 MIL/MM3 (4.50-5.90); RED CELL DISTRIBUTION WIDTH 18.4 % (11.6-17.2); WHITE BLOOD COUNT 23.4 TH/MM3 (4.0-11.0)
[2018-03-02 07:18] LABS: INTERNATIONAL NORMALIZED RATIO 2.5 RATIO; PROTHROMBIN TIME - PATIENT 24.8 SEC (9.8-11.6)
[2018-03-02 07:28] LABS: ALBUMIN 1.7 GM/DL (3.4-5.0); BICARBONATE 11.5 MEQ/L (21.0-32.0); CALCIUM 6.6 MG/DL (8.5-10.1); CREATININE 3.49 MG/DL (0.60-1.30); TOTAL PROTEIN 6.1 GM/DL (6.4-8.2)
[2018-03-02 07:49] LABS: CALCIUM-PROTEIN CORRECTED 7.1 MG/DL (8.5-10.1)
[2018-03-02] MEDS: INSULIN ASPART SUPPLEMENTAL SCALE SQ SCH (08:00)
[2018-03-02] MEDS: CHLORHEXIDINE 0.12% (ORAL KIT) 15 ML CUP MT SCH (08:00)
[2018-03-02] MEDS: SENNOSIDES 8.6 MG TAB PO SCH (08:00)
[2018-03-02] MEDS: LINEZOLID 600 MG PREMIX 300 ML IV SCH (09:00)
[2018-03-02] MEDS: FERROUS SULFATE 325 MG (65 MG ELEMENTAL IRON) TAB PO SCH (09:00)
[2018-03-02] MEDS: THIORIDAZINE HCL 50 MG TAB PO SCH (09:00)
[2018-03-02] MEDS: SODIUM CHLORIDE 0.9% FLUSH 10 ML FLUSH IV FLUSH SCH (09:00)
[2018-03-02] MEDS ORDERED: ALBUMIN 5% INJ 500 ML IV ONE (09:00)
[2018-03-02] MEDS: MEROPENEM INJ 500 MG in SODIUM CHLORIDE 0.9% INJ 100 ML IV SCH (09:00)
--- NOTE | 2018-03-02 09:18 | HHI.NPPN ---
Subjective Renal Failure: Acute Interval History Doing poorly. Hemodynamically unstable. On Vasopressors. Review of Systems General General Remarks unable to obtain Objective Data Data Vital Signs Date Time Temp Pulse Resp B/P (MAP) Pulse Ox O2 Delivery O2 Flow Rate FiO2 03/02/18 07:10 99 55 03/02/18 07:00 100 Mechanical Ventilator 03/02/18 06:23 78 93/44 03/02/18 06:22 78 93/44 03/02/18 06:00 79 03/02/18 05:31 80 99/47 03/02/18 05:31 80 99/47 03/02/18 05:31 80 99/47 03/02/18 04:43 82 97/46 03/02/18 04:42 82 97/46 03/02/18 04:40 55 03/02/18 04:07 98 60 03/02/18 04:00 82 03/02/18 04:00 97.7 82 16 79/43 (55) 98 100/46 (64) 03/02/18 04:00 60 03/02/18 03:10 84 109/39 03/02/18 03:09 84 110/39 03/02/18 02:00 85 03/02/18 01:05 85 109/39 03/02/18 01:04 85 109/39 03/02/18 00:43 98 60 03/02/18 00:00 98.0 84 21 81/48 (59) 100 106/39 (61) 03/02/18 00:00 84 03/02/18 00:00 60 03/01/18 23:33 84 104/41 03/01/18 23:32 84 106/40 03/01/18 22:00 82 03/01/18 20:53 98 60 03/01/18 20:00 85 03/01/18 20:00 95.4 85 22 89/52 (64) 98 108/43 (64) 03/01/18 20:00 60 03/01/18 19:40 85 74/47 18 19:39 85 74/47 03/01/18 19:38 85 74/47 18 19:38 85 74/47 18 19:38 85 74/47 03/01/18 19:00 100 Mechanical Ventilator 03/01/18 18:00 88 03/01/18 17:51 89 86/48 03/01/18 17:00 90 03/01/18 16:11 100 60 03/01/18 16:00 60 03/01/18 16:00 90 03/01/18 16:00 98.5 90 22 84/45 (58) 100 93/43 (60) 03/01/18 15:35 91 84/48 03/01/18 15:15 90 69/46 03/01/18 15:00 89 03/01/18 15:00 89 71/43 03/01/18 14:45 87 63/40 03/01/18 14:31 87 86/36 03/01/18 14:31 87 86/36 03/01/18 14:00 87 03/01/18 13:46 100 60 03/01/18 13:00 86 03/01/18 13:00 86 94/45 03/01/18 12:29 100 60 03/01/18 12:15 85 91/44 03/01/18 12:00 85 03/01/18 12:00 60 03/01/18 12:00 98.9 85 24 80/47 (58) 100 94/48 (63) 03/01/18 11:36 85 94/49 03/01/18 11:00 85 03/01/18 11:00 85 90/47 03/01/18 10:42 86 89/47 03/01/18 10:12 87 88/48 03/01/18 10:10 87 88/49 03/01/18 10:00 87 -: 03/02/18 0634 03/02/18 0634 Tubes & Lines: Vas-Cath, Chirinos Tubes & Lines Comment A line Drip Comment Levophed, dopamine, phenylephrine, propofol, fentanyl Physical Exam General Appearance: No Acute Distress, Malnourished Appearance Remarks looks pale Eyes Eye Exam: Pupils Equal, Pupils Reactive Neck Neck Exam: Neck Supple Pulmonary Resp Exam: Breath Sounds Equal, Crackles Cardiology CV Exam: Regular, Normal Sinus Rhythm Gastrointestinal/Abdomen GI Exam: Soft, Distended Musculoskeletal MS Exam: Joints Intact, Atrophy, Unable to Ambulate Integumentary Skin Exam: Warm, Dry Extremeties Extremities Exam: Pedal Pulses Palpable, Moderate Edema, Dependent Edema Neurologic Neuro Exam: Unresponsive, Sedated Psychiatric Psych Exam: Appropriate Responses Assessment/Plan Assessment Summary: BISHOP/Acute Renal Failure Electrolyte Assessment: Hyponatremia Problem List: (1) Acute kidney injury ICD Codes: N17.9 - Acute kidney failure, unspecified Plan: Oliguric renal failure. HD initiated 02/19, Recently had cardiac arrest, most likely suffered additional renal injury. He has become anuric. Remains hypotensive despite pressor support, on Levophed, phenylephrine, and dopamine. Maintain MAP > 65mmHg. It is unclear if he can tolerate intermittent dialysis given cardiovascular instability. Avoid excessive IVF administration. Overall Prognosis is very poor. Hospice is appropriate. (2) Hyperkalemia ICD Codes: E87.5 - Hyperkalemia Plan: Improved with dialysis, monitor. 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 Hyponatremia is worse and it is mainly due to dilutional effect as he is not making much urine. Several of pressors and other IV medications have D5W as carrier fluid. Hyponatremia is worse due to dilutional effect. If possible, change carrier fluid to NS. (4) Anemia ICD Codes: D64.9 - Anemia, unspecified Status: Acute Plan: Given 2 units 02/27. On Epogen with HD Follow CBC Avoid IV Venofer given sepsis. (5) DM (diabetes mellitus) ICD Codes: E11.9 - Type 2 diabetes mellitus without complications Status: Chronic Plan: Insulin coverage as needed, maintain blood sugar between 140 and 180. (6) Infected stasis ulcer ICD Codes: I83.209 - Varicose veins of unspecified lower extremity with both ulcer of unspecified site and inflammation Status: Acute Plan: Wound with klebsiella, sensitivity reviewed. Wound care following (7) UTI (urinary tract infection) ICD Codes: N39.0 - Urinary tract infection, site not specified Status: Acute Plan: see below (8) Sepsis ICD Codes: A41.9 - Sepsis, unspecified organism Status: Resolved Plan: ID following Has multiple sources of infection. Gall bladder fluid with guerrero, other cultures reviewed Antibiotics include meropenem, Ancef, and micafungin; fluconazole and daptomycin were stopped. Continue supportive care (9) Abdominal pain ICD Codes: R10.9 - Unspecified abdominal pain Status: Acute Plan: Elevated LFTs, HIDA taken. s/p cholecystectomy tube placement 02/25, will need to remain in place for 3 weeks minimum. Surgery following. Problem Qualifiers (1) UTI (urinary tract infection): Qualified Codes: N30.00 - Acute cystitis without hematuria Shaun Mcmahon MD Mar 02, 2018 09:18
--- NOTE | 2018-03-02 10:37 | HHI.CCPN ---
Subjective Remarks/Hospital Course 57-year-old male with a past medical history significant for bilateral foot cellulitis/abscess with group a strep septicemia (on cefazolin and Flagyl until 02/27/18 per infectious disease), acute kidney injury requiring hemodialysis, C. difficile, hepatitis C, anemia, diabetes mellitus, schizophrenia and hypertension has been admitted for the evaluation of abnormal labs. The [facility] and had routine labs done showing anemia, worsening renal function and hyponatremia. The patient complains only of being very tired. He denies any dizziness or loss of consciousness. He was admitted to [facility] floor where he developed profound hypotension refractory to IV fluid bolus. He is admitted to ICU for aggressive IV fluid resuscitation and vasopressors treatment. A wound culture was obtained from the left foot ulcer is now reported as growing Klebsiella ESBL positive. Patient also had an abnormal urinalysis when he came in, and the urine culture is now reported as growing Kirstin glabrata. Subjective: 02/23: Afebrile. Patient sitting up in bed in no acute distress, responding to questions appropriately patient on third liter of IV fluid and remains on norepinephrine currently at 2 mics/minute. Patient's urine culture resulted Kirstin glabrata, however only 50,000 CFU but will initiate micafungin secondary to continued hypotension. Patient's midodrine was increased to 10 mg 3 times daily. Patient was noted to have low calcium level today which has been repleted. Electrolyte and CBC panel pending. 02/24: Last evening the patient complained of severe abdominal pain. CT of the abdomen and pelvis was performed, it showed pericholecystic fluid and gallbladder wall thickening. The patient continues to have abdominal pain the patient has been maintained on an n.p.o. status. HIDA scan pending. GI has been consulted. Patient's hemoglobin 7.9, continues to be hypotensive the patient has been typed and screened plan for transfusion of 1 unit of packed red blood cell. Patient continues on Levophed for vasopressor support. Palliative care was consulted to define goals of care, patient does not want hospice at this time. 02/25: Afebrile. The patient remains n.p.o. at this time. HIDA results pending. The patient required additional pressors now on vasopressin 0.04, in conjunction with norepinephrine at 12mcgs. INR trending upward, 2.3. Vitamin K 10 mg IV 1 dose. Urine culture revealed yeast. Discussed with Dr. Washington today, she knew current antibiotic coverage. 02/26: Afebrile. Patient noted with distended gallbladder on ultrasound last evening. Discussion with invasive radiologist, Dr. Forest Yanes, decision made to perform percutaneous cholecystostomy tube placement. Biliary cultures are pending. Overnight the patient continued to be hypotensive requiring vasopressin and norepinephrine. Patient underwent hemodialysis today with approximately 2.4 L removed. Patient continues on Micafungin,Meropenem, and Daptomycin. 02/27: Overnight at approximately 2355, the patient went into cardiac arrest reported PEA arrest, with ROSC in 8 mins. The patient continues to be severely hypotensive currently on norepinephrine, dopamine, vasopressin. The patient currently has a mixed acidosis and low hemoglobin. Type and screen performed 2 units packed red blood cells to be transfused sodium bicarbonate drip being initiated. Significant leukocytosis this a.m.. INR remains elevated. 02/28: T-max 101 .late entry note. Patient seen at 6:45 AM. Bile fluid positive for Kirstin glabrata. Cholecystostomy tube draining bilious fluid . The patient continues on meropenem and micafungin. The patient continues to be on maximum doses of vasopressors. Sodium bicarbonate infusion discontinued per nephrology patient was hemodialyzed yesterday. 03/01: on 4 vasopressors. hemodynamically unstable. remains in shock. worse than yesterday. too unstable to tolerate additional HD. unlikely to survive this illness. mother presses on for aggressive measures. 03/02: all systems worse. no improvements. sodium dropping rapidly. pressors maxed out. still hypotensive and lactic acid >8. no improvements and worse today. added 1 dose of albumin today to help with oncotic pressure in an attempt to salvage refractory hypotension. too unstable for dialysis. long discussion with mother yesterday and she elected to make the patient DNR with ongoing aggressive care. very poor overall prognosis. Objective Vital Signs Date Time Temp Pulse Resp B/P (MAP) Pulse Ox O2 Delivery O2 Flow Rate FiO2 03/02/18 10:10 95 55 03/02/18 07:00 Mechanical Ventilator 03/02/18 06:23 78 93/44 03/02/18 04:00 97.7 16 02/26/18 19:15 5.00 Intake and Output 03/02/18 03/02/18 03/03/18 08:00 16:00 00:00 Intake Total 2376.3 ml Output Total 185 ml Balance 2191.3 ml Result Diagram: 03/02/18 0634 03/02/18 0634 Other Results Microbiology Date/Time Source Procedure Growth Status 02/27/18 13:35 Bronchial Washings Right Lower Lobe Gram Stain - Final Complete 02/27/18 13:35 Bronchial Washings Right Lower Lobe Bronchial Culture - Final HEAVY GROWTH NORMAL RESPIRATORY PAMELA Complete Imaging Last Impressions Chest X-Ray 02/27/18 Signed Impressions: CONCLUSION: 1. Endotracheal tube and new right IJ central venous catheter now seen. 2. Persistent bilateral mid to lower lung zone pulmonary opacity indicating pu lmonary edema versus consolidation. Percutaneous Cholangiogram 02/25/18 Signed Impressions: CONCLUSION: 1. Uncomplicated percutaneous cholecystostomy as above. Thick inspissated bile noted. A sample sent for microbiological evaluation. Gall Bladder Ultrasound 02/25/18 Signed Impressions: CONCLUSION: 1. Concern for acute cholecystitis. Abdomen Ultrasound 02/25/18 Signed Impressions: CONCLUSION: 1. Small amount of ascites. 2. Insufficient amount of fluid for paracentesis. Hepatobiliary Scan Nuclear Medicine 02/24/18 Signed Impressions: CONCLUSION: 1. Abnormal hepatic kinetics and delayed biliary intestinal transit both of wh ich may be accounted for by parenchymal liver disease. 2. Nonvisualization of the gallbladder. It is uncertain whether this represent s obstruction of the gallbladder or slow excretion of radiotracer. Abdomen/Pelvis CT 02/23/181945 Signed Impressions: CONCLUSION: 1. Worsening moderate bilateral pleural effusions, severe anasarca and mild as cites compared with February 17. 2. Stable pericholecystic fluid and gallbladder wall thickening probably relat ed to anasarca. 3. Stable umbilical hernia. No bowel obstruction or free air. Catheter Placement X-Ray 02/19/18 Signed Impressions: CONCLUSION: Uncomplicated ultrasound and fluoroscopic guided central venous dialysis cathet er placement as above. Renal Ultrasound 02/18/18 Signed Impressions: CONCLUSION: 1. Suspected increased echotexture of the renal parenchyma likely representing medical renal disease. No hydronephrosis is present. 2. There is trace free fluid around the liver. Objective Remarks GENERAL: critically ill-appearing male intubated and sedated SKIN: Warm and dry. HEAD: Normocephalic. EYES: No scleral icterus. No injection or drainage. NECK: Supple, trachea midline. No JVD. CARDIOVASCULAR: Regular rate and rhythm. sinus. RESPIRATORY: Breath sounds equal bilaterally. No accessory muscle use. full vent support. GASTROINTESTINAL: Abdomen soft, nondistended. Cholecystostomy tube draining biliary fluid MUSCULOSKELETAL: No cyanosis, or edema. Has ulcers both plantar aspect of feet, clean, with red tissue, no necrotic tissue, no purulence, no periwound erythema. Bilateral dressings on feet C/D I NEURO EXAM: RASS -4. sedated with fentanyl only. does not follow commands. A/P Problem List: (1) Rhabdomyolysis ICD Code: M62.82 - Rhabdomyolysis (2) Edema ICD Code: R60.9 - Edema, unspecified (3) Renal insufficiency ICD Code: N28.9 - Disorder of kidney and ureter, unspecified Status: Acute (4) Acute worsening of stage 3 chronic kidney disease ICD Code: N18.3 - Chronic kidney disease, stage 3 (moderate) (5) Septic shock due to streptococcal infection ICD Code: A40.9 - Streptococcal sepsis, unspecified; R65.21 - Severe sepsis with septic shock Status: Resolved (6) History of schizophrenia ICD Code: Z86.59 - Personal history of other mental and behavioral disorders (7) Open wound of left foot ICD Code: S91.302A - Unspecified open wound, left foot, initial encounter Status: Chronic (8) Acute renal failure ICD Code: N17.9 - Acute kidney failure, unspecified Status: Acute (9) DM (diabetes mellitus) ICD Code: E11.9 - Type 2 diabetes mellitus without complications Status: Chronic (10) Ulcer of right lower extremity ICD Code: L97.919 - Non-pressure chronic ulcer of unspecified part of right lower leg with unspecified severity Status: Chronic (11) Chronic disease anemia ICD Code: D63.8 - Anemia in other chronic diseases classified elsewhere Status: Acute (12) Osteomyelitis of ankle or foot ICD Code: M86.9 - Osteomyelitis, unspecified Status: Acute (13) Abscess of right foot ICD Code: L02.611 - Cutaneous abscess of right foot Status: Acute (14) Charcot foot due to diabetes mellitus ICD Code: E11.610 - Type 2 diabetes mellitus with diabetic neuropathic arthropathy Status: Chronic (15) Impaired mobility and activities of daily living ICD Code: Z74.09 - Other reduced mobility Status: Acute (16) Peripheral neuropathy ICD Code: G62.9 - Peripheral neuropathy Status: Acute (17) Uncontrolled diabetes mellitus ICD Code: E11.65 - Uncontrolled diabetes mellitus Status: Acute (18) Infected stasis ulcer ICD Code: I83.209 - Varicose veins of unspecified lower extremity with both ulcer of unspecified site and inflammation Status: Acute (19) Symptomatic anemia ICD Code: D64.9 - Anemia, unspecified Status: Acute (20) PEA (Pulseless electrical activity) ICD Code: I46.9 - Cardiac arrest, cause unspecified Assessment and Plan Plan by systems: Neurologic: Schizophrenia Acute metabolic encephalopathy- severe -Continue home dosing Thorazine -Neuro checks per ICU protocol -Provide fentanyl IV infusion for sedation/analgesia to maintain ventilator synchrony -Hold all daily sedation vacation until clinically indicate -Vistaril placed on hold Respiratory: Acute hypoxic and hypercarbic respiratory failure Mixed severe respiratory and metabolic acidosis 02/27 patient intubated 8.0 ETT, S/P Cardiac Arrest (PEA) PC Mode weaned to 60% Repeat ABG Bronchodilators every 6 hours scheduled and every 2 hours as needed Cardiovascular Septic shock- severe, acute, refractory to multiple vasopressors Hypotension Status post PEA arrest -Continue Levophed, dopamine ,vasopressin, phenylephrine to maintain MAP greater than 65mmHG. -Midrin 10 mg-discontinued -Albumin 5% BID discontinued 02/27 -Hydrocortisone 50 mg every 6 hours - refractory to maximal medical therapy - one dose of albumin to try and curtail refractory shock. vasopressors ineffective. FEN/GI: Abdominal pain Stable umbilical hernia Mild ascites Cholecystitis -Sodium bicarbonate infusion dc'd 02/27 per Nephrology -Maintain n.p.o. status while on vasopressors -02/23 CT abdomen and pelvis- stable pericholecystic fluid and gallbladder wall thickening -Scheduled sennosides twice daily -Bowel regimen -Hepatitis C IgG Ab positive - 02/25 Gallbladder ultrasound-Limited sonographic images of the gallbladder were performed. Other visceral structures were not evaluated at this time. The gallbladder is thick walled. It is distended. There is a questionable echogenic stone within the neck. A trace amount of pericholecystic fluid noted. S/P Percutaneous cholecystostomy tube placement F/U biliary culture - GI following Monitor Creatinine Kinase while on daptomycin 02/27-general surgery has been consulted, secondary to possible stone in the neck of the gallbladder -labs values ALT remains the same, alkaline phosphatase decreasing. AST slightly increased but this is also in the setting of chronic liver disease IHD scheduling per Nephrology-1L ( 02/27), 1.5L (02/28) Heme/ID: Septic shock Anemia -Begin sodium bicarbonate infusion -IV antibiotics per ID -02/27 Kirstin glabrata> 100,000 in repeat specimen -wound culture- Klebsiella ESBL, Group A Strep -02/24 type and screen -Transfuse 1 unit PRBC (02/24) -02/25 Biliary culture obtained , F/U results - 02/27 type and screen-planned transfusion 2 units packed red blood cells (Hgb 7.7) - 02/27 Pancultured Endocrine: Diabetes mellitus -Maintain n.p.o. status -Glucose monitoring per ICU protocol -Insulin sliding scale -- SSI Prophylaxis: GI Prophylaxis Famotidine BID DVT Prophylaxis -- SCDs Lines: Right infusaport/ verma. Peripheral IVs 2 Dispo: my billing statement This patient remains critically ill with one or more organ systems which are or may become a threat to life. I have spent in excess of 40 minutes discontinuously in the care and management of this patient. This time is exclusive of procedures, and includes, but is not limited to, evaluation of the patient, review of the medical record, discussions with family, consultants, nursing staff, or respiratory therapy, and documentation in the medical record. Discussed with daughters at bedside. OVERALL IMPRESSION: maximally ill and decompensating. hemodynamically unstable despite our best efforts. likely nonsurvivable acute shock. family continues aggressive goals. Hamlet Be MD Mar 02, 2018 10:37
--- NOTE | 2018-03-02 10:38 | DEATH SUM ---
Pronouncement Date Pronounced : Mar 02, 2018 Time Of : 20:29 Pronouncement Called to pronounce of patient. Identified patient as Alexei Yanes with wrist band MR# [id number]. Patient with no cardiac activity in 2 separate leads and no palpable/auscible cardiac activity. Patient with no spontaneous respirations, no corneal reflex or response to painful stimuli. Pupils fixed and dilated. Preliminary Cause of : Multi Organ Failure Hamlet Be MD Mar 02, 2018 10:37
--- NOTE | 2018-03-02 10:39 | HHI.DS ---
Summary Note Date of : Mar 02, 2018 Time Of : 20:29 Admission Date Feb 17, 2018 at 18:58 Admitting Diagnosis Hyponatremia, anemia, BISHOP, UTI Diagnosis at Time of : (1) Acute kidney injury ICD Code: N17.9 - Acute kidney failure, unspecified (2) Hyponatremia ICD Code: E87.1 - Hypo-osmolality and hyponatremia (3) Hyperkalemia ICD Code: E87.5 - Hyperkalemia (4) Hyponatremia ICD Code: E87.1 - Hypo-osmolality and hyponatremia (5) Chronic foot ulcer ICD Code: L97.509 - Non-pressure chronic ulcer of other part of unspecified foot with unspecified severity (6) Symptomatic anemia ICD Code: D64.9 - Anemia, unspecified Brief History 57-year-old male with a past medical history significant for bilateral foot cellulitis/abscess with group a strep septicemia (on cefazolin and Flagyl until 02/27/18 per infectious disease), acute kidney injury requiring hemodialysis, C. difficile, hepatitis C, anemia, diabetes mellitus, schizophrenia and hypertension presents to the emergency department for the evaluation of abnormal labs. The patient currently resides in a residential and had routine labs done showing anemia, worsening renal function and hyponatremia. The patient complains only of being very tired. He denies any dizziness or loss of consciousness. He reports that it has been 2 days since he last urinated. Denies chest pain or shortness of breath. Complains of some diffuse pelvic pain , now resolved. No nausea/vomiting/diarrhea. No lateralizing signs/symptoms. No fevers/chills. CBC/BMP: 03/02/18 0634 03/02/18 0634 Significant Findings Laboratory Tests Test 02/27/18 16:20 02/27/18 21:27 02/28/18 05:18 02/28/18 16:36 Blood Gas Base Excess -3.4 mmol/L (-2-2) -9.6 mmol/L (-2-2) Blood Gas Oxygen Saturation 88 % (90-100) Arterial Blood pH 7.33 (7.380-7.420) 7.35 (7.380-7.420) Blood Gas Hemoglobin 10.4 G/DL (12.0-16.0) 10.3 G/DL (12.0-16.0) Hemoglobin 10.8 GM/DL (13.0-17.0) Hematocrit 33.2 % (39.0-51.0) Lactic Acid Level 3.8 mmol/L (0.4-2.0) Blood Gas HCO3 15 mmol/L (22-26) Arterial Blood Partial Pressure CO2 28 mmHg (38-42) Test 02/28/18 17:00 03/01/18 04:00 03/01/18 04:50 03/02/18 06:34 White Blood Count 14.2 TH/MM3 (4.0-11.0) 19.0 TH/MM3 (4.0-11.0) 23.4 TH/MM3 (4.0-11.0) Red Blood Count 3.65 MIL/MM3 (4.50-5.90) 3.76 MIL/MM3 (4.50-5.90) 3.83 MIL/MM3 (4.50-5.90) Hemoglobin 10.5 GM/DL (13.0-17.0) 10.8 GM/DL (13.0-17.0) 11.0 GM/DL (13.0-17.0) Hematocrit 33.0 % (39.0-51.0) 34.7 % (39.0-51.0) 35.8 % (39.0-51.0) Mean Corpuscular Hemoglobin Concent 31.9 % (32.0-36.0) 31.3 % (32.0-36.0) 30.7 % (32.0-36.0) Neutrophils (%) (Auto) 90.3 % (16.0-70.0) 84.5 % (16.0-70.0) Lymphocytes (%) (Auto) 5.6 % (9.0-44.0) Neutrophils # (Auto) 12.9 TH/MM3 (1.8-7.7) 16.0 TH/MM3 (1.8-7.7) Lymphocytes # (Auto) 0.8 TH/MM3 (1.0-4.8) Neutrophils % (Manual) 86 % (16-70) 75 % (16-70) Lymphocytes % 7 % (9-44) Neutrophils # (Manual) 12.8 TH/MM3 (1.8-7.7) 17.1 TH/MM3 (1.8-7.7) Nucleated Red Blood Cells 13 /100 WBC (0-0) 13 /100 WBC (0-0) Blood Urea Nitrogen 22 MG/DL (7-18) 23 MG/DL (7-18) 25 MG/DL (7-18) Creatinine 3.30 MG/DL (0.60-1.30) 3.42 MG/DL (0.60-1.30) 3.49 MG/DL (0.60-1.30) Random Glucose 307 MG/DL (74-106) 296 MG/DL (74-106) 334 MG/DL (74-106) Calcium Level 7.1 MG/DL (8.5-10.1) 7.0 MG/DL (8.5-10.1) 6.6 MG/DL (8.5-10.1) Sodium Level 128 MEQ/L (136-145) 125 MEQ/L (136-145) 113 MEQ/L (136-145) Chloride Level 95 MEQ/L (98-107) 90 MEQ/L (98-107) 82 MEQ/L (98-107) Carbon Dioxide Level 14.6 MEQ/L (21.0-32.0) 15.3 MEQ/L (21.0-32.0) 11.5 MEQ/L (21.0-32.0) Anion Gap 18 MEQ/L (5-15) 20 MEQ/L (5-15) 20 MEQ/L (5-15) Estimat Glomerular Filtration Rate 20 ML/MIN (>89) 19 ML/MIN (>89) 18 ML/MIN (>89) Lactic Acid Level 7.9 mmol/L (0.4-2.0) 8.8 mmol/L (0.4-2.0) 8.6 mmol/L (0.4-2.0) Protein Corrected Calcium 7.4 MG/DL (8.5-10.1) 7.2 MG/DL (8.5-10.1) 7.1 MG/DL (8.5-10.1) Red Cell Distribution Width 17.5 % (11.6-17.2) 18.4 % (11.6-17.2) Band Neutrophils % 14 % (0-6) Toxic Vacuolation PRESENT (NONE SEEN) Basophilic Stippling FAINT (NORMAL) Spherocytes 1+ (NORMAL) Albumin 1.9 GM/DL (3.4-5.0) 1.7 GM/DL (3.4-5.0) Blood Gas HCO3 12 mmol/L (22-26) Blood Gas Base Excess -14.8 mmol/L (-2-2) Arterial Blood pH 7.21 (7.380-7.420) Arterial Blood Partial Pressure CO2 30 mmHg (38-42) Blood Gas Hemoglobin 11.0 G/DL (12.0-16.0) Prothrombin Time 24.8 SEC (9.8-11.6) Activated Partial Thromboplast Time 82.6 SEC (24.3-30.1) Total Protein 6.1 GM/DL (6.4-8.2) Alkaline Phosphatase 213 U/L (45-117) Aspartate Amino Transf (AST/SGOT) 232 U/L (15-37) Total Bilirubin 2.0 MG/DL (0.2-1.0) Imaging Last Impressions Chest X-Ray 02/27/18 Signed Impressions: CONCLUSION: 1. Endotracheal tube and new right IJ central venous catheter now seen. 2. Persistent bilateral mid to lower lung zone pulmonary opacity indicating pu lmonary edema versus consolidation. Percutaneous Cholangiogram 02/25/18 Signed Impressions: CONCLUSION: 1. Uncomplicated percutaneous cholecystostomy as above. Thick inspissated bile noted. A sample sent for microbiological evaluation. Gall Bladder Ultrasound 02/25/18 Signed Impressions: CONCLUSION: 1. Concern for acute cholecystitis. Abdomen Ultrasound 02/25/18 Signed Impressions: CONCLUSION: 1. Small amount of ascites. 2. Insufficient amount of fluid for paracentesis. Hepatobiliary Scan Nuclear Medicine 02/24/18 Signed Impressions: CONCLUSION: 1. Abnormal hepatic kinetics and delayed biliary intestinal transit both of wh ich may be accounted for by parenchymal liver disease. 2. Nonvisualization of the gallbladder. It is uncertain whether this represent s obstruction of the gallbladder or slow excretion of radiotracer. Abdomen/Pelvis CT 02/23/181945 Signed Impressions: CONCLUSION: 1. Worsening moderate bilateral pleural effusions, severe anasarca and mild as cites compared with February 17. 2. Stable pericholecystic fluid and gallbladder wall thickening probably relat ed to anasarca. 3. Stable umbilical hernia. No bowel obstruction or free air. Catheter Placement X-Ray 02/19/18 0000 Signed Impressions: CONCLUSION: Uncomplicated ultrasound and fluoroscopic guided central venous dialysis cathet er placement as above. Renal Ultrasound 02/18/18 0000 Signed Impressions: CONCLUSION: 1. Suspected increased echotexture of the renal parenchyma likely representing medical renal disease. No hydronephrosis is present. 2. There is trace free fluid around the liver. Hospital Course 57-year-old male with a past medical history significant for bilateral foot cellulitis/abscess with group a strep septicemia (on cefazolin and Flagyl until 02/27/18 per infectious disease), acute kidney injury requiring hemodialysis, C. difficile, hepatitis C, anemia, diabetes mellitus, schizophrenia and hypertension has been admitted for the evaluation of abnormal labs. The patient currently resides in a residential and had routine labs done showing anemia, worsening renal function and hyponatremia. The patient complains only of being very tired. He denies any dizziness or loss of consciousness. He was admitted to [facility] floor where he developed profound hypotension refractory to IV fluid bolus. He is admitted to ICU for aggressive IV fluid resuscitation and vasopressors treatment. A wound culture was obtained from the left foot ulcer is now reported as growing Klebsiella ESBL positive. Patient also had an abnormal urinalysis when he came in, and the urine culture is now reported as growing Kirstin glabrata. Subjective: 02/23: Afebrile. Patient sitting up in bed in no acute distress, responding to questions appropriately patient on third liter of IV fluid and remains on norepinephrine currently at 2 mics/minute. Patient's urine culture resulted Kirstin glabrata, however only 50,000 CFU but will initiate micafungin secondary to continued hypotension. Patient's midodrine was increased to 10 mg 3 times daily. Patient was noted to have low calcium level today which has been repleted. Electrolyte and CBC panel pending. 02/24: Last evening the patient complained of severe abdominal pain. CT of the abdomen and pelvis was performed, it showed pericholecystic fluid and gallbladder wall thickening. The patient continues to have abdominal pain the patient has been maintained on an n.p.o. status. HIDA scan pending. GI has been consulted. Patient's hemoglobin 7.9, continues to be hypotensive the patient has been typed and screened plan for transfusion of 1 unit of packed red blood cell. Patient continues on Levophed for vasopressor support. Palliative care was consulted to define goals of care, patient does not want hospice at this time. 02/25: Afebrile. The patient remains n.p.o. at this time. HIDA results pending. The patient required additional pressors now on vasopressin 0.04, in conjunction with norepinephrine at 12gs. INR trending upward, 2.3. Vitamin K 10 mg IV 1 dose. Urine culture revealed yeast. Discussed with Dr. Washington today, she knew current antibiotic coverage. 02/26: Afebrile. Patient noted with distended gallbladder on ultrasound last evening. Discussion with invasive radiologist, Dr. Forest Yanes, decision made to perform percutaneous cholecystostomy tube placement. Biliary cultures are pending. Overnight the patient continued to be hypotensive requiring vasopressin and norepinephrine. Patient underwent hemodialysis today with approximately 2.4 L removed. Patient continues on Micafungin,Meropenem, and Daptomycin. 02/27: Overnight at approximately 2355, the patient went into cardiac arrest reported PEA arrest, with ROSC in 8 mins. The patient continues to be severely hypotensive currently on norepinephrine, dopamine, vasopressin. The patient currently has a mixed acidosis and low hemoglobin. Type and screen performed 2 units packed red blood cells to be transfused sodium bicarbonate drip being initiated. Significant leukocytosis this a.m.. INR remains elevated. 02/28: T-max 101 .late entry note. Patient seen at 6:45 AM. Bile fluid positive for Kirstin glabrata. Cholecystostomy tube draining bilious fluid . The patient continues on meropenem and micafungin. The patient continues to be on maximum doses of vasopressors. Sodium bicarbonate infusion discontinued per nephrology patient was hemodialyzed yesterday. 03/01: on 4 vasopressors. hemodynamically unstable. remains in shock. worse than yesterday. too unstable to tolerate additional HD. unlikely to survive this illness. mother presses on for aggressive measures. 03/02: no improvement in shock. patient despite our aggressive measures. Hamlet Be MD Mar 02, 2018 10:39
[2018-03-04 15:39] LABS: HEREDITARY HEMOCHROM SPECIMEN WB Whole Blood
== END 2018-03-02 10:29 | disposition expired | DRG 853 ==
LOC: NEPE 15:59 → NEDH 18:58 → NEDA 18:58 → UNDOADMIN 18:58 → N04A 21:11 → HIME 02-23 02:30
PROVIDERS: ADMIT Internal Medicine Critical Care Medicine; ATTEND Internal Medicine Critical Care Medicine
PROC: 30233N1 Transfusion of Nonautologous Red Blood Cells into Peripheral Vein, Percutaneous Approach (ICD-10-PCS; 2018-02-17)
PROC: 02HV33Z Insertion of Infusion Device into Superior Vena Cava, Percutaneous Approach (ICD-10-PCS; 2018-02-19)
PROC: 5A1D70Z Performance of Urinary Filtration, Intermittent, Less than 6 Hours Per Day (ICD-10-PCS; 2018-02-19)
PROC: 03HY32Z Insertion of Monitoring Device into Upper Artery, Percutaneous Approach (ICD-10-PCS; 2018-02-25)
PROC: BF121ZZ Fluoroscopy of Gallbladder using Low Osmolar Contrast (ICD-10-PCS; 2018-02-25)
PROC: 0F9430Z Drainage of Gallbladder with Drainage Device, Percutaneous Approach (ICD-10-PCS; 2018-02-25)
PROC: 5A12012 Performance of Cardiac Output, Single, Manual (ICD-10-PCS; 2018-02-26)
PROC: 0B9F8ZZ Drainage of Right Lower Lung Lobe, Via Natural or Artificial Opening Endoscopic (ICD-10-PCS; principal; 2018-02-27)
PROC: 02HV33Z Insertion of Infusion Device into Superior Vena Cava, Percutaneous Approach (ICD-10-PCS; 2018-02-27)
PROC: 5A1945Z Respiratory Ventilation, 24-96 Consecutive Hours (ICD-10-PCS; 2018-02-27)
PROC: 0BH17EZ Insertion of Endotracheal Airway into Trachea, Via Natural or Artificial Opening (ICD-10-PCS; 2018-02-27)
DX: A41.9 Sepsis, unspecified organism (principal); R65.21 Severe sepsis with septic shock; N17.0 Acute kidney failure with tubular necrosis; J69.0 Pneumonitis due to inhalation of food and vomit; G93.41 Metabolic encephalopathy; J96.02 Acute respiratory failure with hypercapnia; J96.01 Acute respiratory failure with hypoxia; J90 Pleural effusion, not elsewhere classified; N18.6 End stage renal disease; L03.115 Cellulitis of right lower limb; E87.4 Mixed disorder of acid-base balance; B37.49 Other urogenital candidiasis; A04.72 Enterocolitis due to Clostridium difficile, not specified as recurrent; E87.1 Hypo-osmolality and hyponatremia; M86.9 Osteomyelitis, unspecified; Z68.41 Body mass index [BMI] 40.0-44.9, adult; L03.116 Cellulitis of left lower limb; K80.13 Calculus of gallbladder with acute and chronic cholecystitis with obstruction; M62.82 Rhabdomyolysis; R18.8 Other ascites; B37.89 Other sites of candidiasis; I48.91 Unspecified atrial fibrillation; E11.22 Type 2 diabetes mellitus with diabetic chronic kidney disease; E11.69 Type 2 diabetes mellitus with other specified complication; F41.9 Anxiety disorder, unspecified; F32.9 Major depressive disorder, single episode, unspecified; K21.9 Gastro-esophageal reflux disease without esophagitis; B18.2 Chronic viral hepatitis C; E11.610 Type 2 diabetes mellitus with diabetic neuropathic arthropathy; I46.9 Cardiac arrest, cause unspecified; E66.9 Obesity, unspecified; I12.9 Hypertensive chronic kidney disease with stage 1 through stage 4 chronic kidney disease, or unspecified chronic kidney disease; L89.611 Pressure ulcer of right heel, stage 1; L89.890 Pressure ulcer of other site, unstageable; E87.5 Hyperkalemia; D63.8 Anemia in other chronic diseases classified elsewhere; F20.9 Schizophrenia, unspecified; E87.70 Fluid overload, unspecified; K42.9 Umbilical hernia without obstruction or gangrene; M54.5 Low back pain; G89.29 Other chronic pain; E11.42 Type 2 diabetes mellitus with diabetic polyneuropathy; I87.2 Venous insufficiency (chronic) (peripheral); B96.1 Klebsiella pneumoniae [K. pneumoniae] as the cause of diseases classified elsewhere; R26.9 Unspecified abnormalities of gait and mobility; Z87.891 Personal history of nicotine dependence; Z79.4 Long term (current) use of insulin
CPT/HCPCS: 31500; 31624; 36430; 36556; 36600; 47490; 71045; 74018; 74176; 76705; 76775; 76937; 77001; 78226; 80048; 80053; 80069; 80074; 81001; 81256; 82550; 82728; 82805; 82948; 83540; 83550; 83605; 83735; 83930; 84100; 84155; 84484; 85007; 85014; 85018; 85027; 85610; 85730; 86850; 86900; 86901; 86920; 87040; 87070; 87077; 87086; 87186; 87205; 87641; 90935; 92950; 93005; 94002; 94003; 94150; 94640; 94664; 96360; 96361; 96374; 96375; A9537; C1729; C1752; C1769; C9113; J0171; J0610; J0690; J0696; J0878; J1170; J1265; J1580; J1644; J1720; J1815; J2020; J2150; J2185; J2248; J2370; J2550; J3010; J3430; J7030; J7040; J7050; J7060; J7070; P9016; P9045; P9047; Q4081